=== PATIENT | female | born 1940 | race Caucasian/White ===

== ENCOUNTER → 2023-05-28 11:35 | Outpatient (CLI) | payer MEDICARE, MEDICAID, SELFPAY ==
--- NOTE | 2023-05-28 | DI.RAD_ITS ---
Exam(s) XR SHOULDER LT COMPLETE 2+V EXAM: XR SHOULDER LT COMPLETE 2+V CLINICAL HISTORY: Breast ca, C50.511, Z17.0 lt shoulder pain. TECHNIQUE: 2D digital imaging was performed. COMPARISON: No exams were available for comparison FINDINGS: Four views. No evidence of fracture or dislocation no abnormal soft tissue calcifications. There is mild decreas ed height of subacromial space Bone density normal. No osseous lesions. Minimal degenerative changes in the glenohumeral and AC caty ints. Clavicle 0. IMPRESSION: Mild findings as above. DATA REPOSITORY: RADIATION DOSE DELIVERED:
--- NOTE | 2023-05-28 | DI.RAD_ITS ---
Exam(s) XR CERVICAL SPINE COMP 4-5V EXAM: XR CERVICAL SPINE COMP 4-5V CLINICAL HISTORY: Breast ca, C50.511, Z17.0, Lt neck pain. TECHNIQUE: 2D digital imaging was performed. COMPARISON: No exams were available for comparison FINDINGS: Six views. There is multilevel degenerative disc disease reversal of the curvature of the cervical spine but no evidence of fracture or listhesis nor facet malalignment. There is moderate disc space narrowing at each level with the exception of preservation of disc height at C2-3 level. No significant osseous l esions. No Luschka joint osteophytes. No cervical ribs. Calcified plaque noted in the right carotid bifurcation. IMPRESSION: Multilevel degenerative disc disease. DATA REPOSITORY: RADIATION DOSE DELIVERED:
== END ==
PROVIDERS: PCP Family Medicine; Visit Provider Radiology Radiation Oncology
DX: C50.511 Malignant neoplasm of lower-outer quadrant of right female breast (principal); Z17.0 Estrogen receptor positive status [ER+]; M54.2 Cervicalgia
CPT/HCPCS: 72050; 73030

== ENCOUNTER → 2023-06-19 02:51 | Outpatient (CLI) | payer MEDICARE, MEDICAID, SELFPAY ==
--- NOTE | 2023-06-19 | DI.NM_ITS ---
Exam(s) NM BONE SCAN WHOLE BODY GRP EXAM: NM BONE SCAN WHOLE BODY GRP CLINICAL HISTORY: RT BREAST CA,C50.511,z17.0,LT NECK AND SHOULDER PAIIN,STAGING,DEC PASTRY COOK. TECHNIQUE: Injected Dose: 25 mCi Tc-99m MDP Delayed Images: 2-3 hours. COMPARISON: No exams were available for comparison FINDINGS: There is focal uptake symmetrically in both sternoclavicular joints, probably degenerative. There is focal increased uptake in the medial compartment of the left knee, most probably degenerativ e. Also in the proximal left foot, also probably degenerative. Lesser focus increased activity in t he dorsal right foot probably also degenerative. Nor abnormal uptake in the long bones nor within the hips and pelvis. There is no abnormal uptake in the rib cages. There are foci of increased uptake seen in the lumbar spine on the left side of what is probably L4 a nd right side of L3 and also right-side of L5-S1. These may be related to degenerative changes in th e facet joints but can not exclude bone lesions at these levels. There is a solitary focus of mild increased uptake in the thoracic spine at T8 level. Some uptake co nsistent with degenerative changes noted in the lower cervical spine. IMPRESSION: 1. Multifocal lumbar uptake as described above. Possibly related to degenerative facet arthropathy b ut can not exclude concerning lesions. Recommend CT scan through the lumbar spine for correlation. 2. Subtle focus of increased uptake at T8 also noted 3. Other multiple foci described above are most probably of degenerative nature. DATA REPOSITORY:
== END ==
PROVIDERS: PCP Family Medicine; Visit Provider Radiology Radiation Oncology
DX: C50.511 Malignant neoplasm of lower-outer quadrant of right female breast (principal); Z17.0 Estrogen receptor positive status [ER+]; R93.7 Abnormal findings on diagnostic imaging of other parts of musculoskeletal system
CPT/HCPCS: 78306

== ENCOUNTER → 2023-07-20 00:20 | Outpatient (CLI) | payer MEDICARE, MEDICAID, SELFPAY ==
--- NOTE | 2023-07-20 | DI.MRI_ITS ---
Exam(s) MR THORACIC SPINE WO/W EXAM: MR THORACIC SPINE WO/W CLINICAL HISTORY: RT BREAST CA, BONE SCAN SHOWED INCREASED UPTAKE. TECHNIQUE: Multiplanar multisequence MRI of the Thoracic spine was performed. CONTRAST MATERIAL: IV Contrast: 13 mL of Dotarem contrast administered. COMPARISON: CT CT CHEST W CONTRAST from 03/02/2023 NM NM BONE SCAN WHOLE BODY GRP from 06/19/2023 FINDINGS: Bones: The vertebral body heights are well maintained. Schmorl's nodes are noted at several levels. Endplate osteophytes throughout. Uolr-an-roekfiuh dextroscoliosis in the mid thoracic region.. Deg enerative change signal changes in the endplates in the mid thoracic region. Cord: The thoracic cord is normal size and signal intensity. No intrinsic cord lesion is present. Discs: No disc herniation or bulge is present. Soft tissues: Left-sided thyroid nodule not grossly changed. There is no evidence of suspicious enhancement. IMPRESSION: Degenerative changes. No findings suspicious for metastatic disease. DATA REPOSITORY:
--- NOTE | 2023-07-20 | DI.MRI_ITS ---
Exam(s) MR LUMBAR SPINE WO/W EXAM: MR LUMBAR SPINE WO/W CLINICAL HISTORY: RT BREAST CANCER, C50.511, Z17.0, BONE SCAN SHOWED INC UPTAKE TECHNIQUE: Multiplanar multisequence MRI of the Lumbar Spine was performed. CONTRAST MATERIAL: IV Contrast: 13 mL of Dotarem contrast administered. COMPARISON: CT CT ABDOMEN PELVIS W CONTRAST from 03/02/2023 NM NM BONE SCAN WHOLE BODY GRP from 06/19/2023 CR,RF RF BARIUM SWALLOW from 07/20/2023 FINDINGS: Bones: The last intervertebral disc space is designated the L5/S1 level for the numbering purpose of this examination. The vertebral body heights are well maintained. Alignment is satisfactory. The sig nal characteristics are unremarkable. Cord: The conus tip ends at the T12 level. It is of normal size and signal intensity. T12-L1: No disc herniations or bulges are present. L1-2: Mild disc bulging. L2-3: Severe loss of disc height. Broad-based endplate osteophytes. No significant central canal st enosis. Severe bilateral neural foraminal narrowing. L3-4: Severe loss of disc height. Degenerative signal changes in the endplates greater on the left. Facet degenerative changes. Severe left and moderate right neural foraminal narrowing. Mild central c anal stenosis. L4-5: Severe loss of disc height. Small endplate osteophytes. Facet degenerative changes. No signifi cant central canal stenosis. Mild right neural foraminal narrowing. L5-S1: Mild disc bulging. Facet degenerative changes, greater on the right. Moderate right neural fo raminal narrowing. No significant left neural foraminal narrowing or central canal stenosis. Soft tissues: The visualized SI joints and sacrum are well maintained. The paraspinal soft tissues ar e unremarkable. There is no evidence of suspicious enhancement. IMPRESSION: No evidence of metastatic disease. The areas of increased activity seen on bone scan correspond to s evere degenerative changes as described above. DATA REPOSITORY:
--- NOTE | 2023-07-20 | DI.US_ITS ---
Exam(s) US PELVIS TRANSVAGINAL EXAM: US PELVIS TRANSVAGINAL CLINICAL HISTORY: INCREASED ENDOMETRIAL STRIPE THICKNESS, R93.89, RT BREAST CANCER TECHNIQUE: Transabdominal and transvaginal imaging was performed using standard protocol. COMPARISON: CT CT ABDOMEN PELVIS W CONTRAST from 03/02/2023 FINDINGS: UTERUS: Anteverted. 6.5 x 4.2 x 6.6 cm. Measurements exclude the fibroid. Endometrium: 8-11 mm, abnormally thickened. Myometrium: Left-sided fibroid measuring 6.8 x 5.0 x 5.7 cm. Cervix: Unremarkable. OVARIES: Right: Not visualized Left: Not visualized CUL-DE-SAC: Free fluid: None. IMPRESSION: Large left-sided uterine fibroid, 6.8 cm in maximal dimension. Abnormally thickened endometrium measuring up to 11 millimeters. Ovaries were not identified. DATA REPOSITORY:
[2023-07-20] MEDS: Barium Sulfate 700 MG TAB PO (11:18)
[2023-07-20] MEDS: Simethicone/Sod Bicarb/Cit Ac, 4 gram PACKET 1 PACKET PO (11:19)
[2023-07-20] MEDS: Barium Sulfate 98% W/W 140 ML BTL PO (11:19)
[2023-07-20] MEDS: Barium Sulfate 60% W/V 355 ML BTL PO (11:20)
--- NOTE | 2023-07-20 11:23 | DI.RAD_ITS ---
Exam(s) RF BARIUM SWALLOW EXAM: RF BARIUM SWALLOW CLINICAL HISTORY: RT BREAST CANCER, C50.51, Z17.0, THICKENING ESOPHAGUS, K22.89 TECHNIQUE: 2D and realtime digital imaging was performed. CONTRAST MATERIAL: Thick and thin barium and barium tablet were administered. COMPARISON: CT CT ABDOMEN PELVIS W CONTRAST from 03/02/2023 FINDINGS: The PA and lateral chest films show normal heart size and clear lung gutierrez. Surgical clips over rig ht chest. The lateral pipe cutter view of the neck is unremarkable. Esophagus: The patient swallowed barium without difficulty. No aspiration was observed during the ex am. Noevidence for mucosal erosions. Nofold thickening. No mass is visible. Nostricture. Motility: There is a normal primary stripping wave. Prominent tertiary contractions were noted. Intr aesophageal reflux is also present. There is no hiatal hernia. Mildgastroesophageal reflux was observed during the exam. Multiple duodenal diverticula are noted. IMPRESSION: Prominent tertiary contractions in the esophagus. The barium tablet stuck briefly at the GE junction but no visible stricture is present. Mild gastroesophageal reflux. RADIATION DOSE DELIVERED: claudia Smith=21.3 mGy
[2023-07-20 12:13] LABS: CREATININE 0.9 mg/dL (0.55-1.02); Estimated GFR 64.23 (mL/min/1.73m2)
[2023-07-20] MEDS: Gadoterate meglumine 20 ML SYRINGE 13 ML IVP (12:42)
[2023-07-20] MEDS: Normal Saline Flush 10 ML SYR IVP (12:42)
== END ==
PROVIDERS: PCP Family Medicine; Visit Provider Radiology Radiation Oncology
DX: K22.4 Dyskinesia of esophagus (principal); M41.34 Thoracogenic scoliosis, thoracic region; D25.1 Intramural leiomyoma of uterus; M51.36 Other intervertebral disc degeneration, lumbar region
CPT/HCPCS: 72158; 72157; 74221; 76830; 76856; 82565; J3490

== ENCOUNTER → 2023-10-08 02:39 | Outpatient (CLI) | payer MEDICARE, SELFPAY ==
--- NOTE | 2023-10-08 | DI.DEXA_ITS ---
Exam(s) XR DEXA BONE DENSITY W/WO KRYSTEN EXAM: XR DEXA BONE DENSITY W/WO KRYSTEN CLINICAL HISTORY: BREAST CANCER C50.919 AROMATASE INHIBITOR USE Z79.811 TECHNIQUE: COMPARISON: No exams were available for comparison FINDINGS: Lateral Spine Image: Unremarkable. No compression deformities identified. Right hip: Total T-Score: -1.9. Total Z-Score: 0.3 T- and Z-scores: Findings are consistent with osteopenia. There is osteoporosis in the femoral neck with a T-score of -2.6. Lumbar Spine: Total T-Score: 0.4 Total Z-Score: 3.2 T- and Z-scores: Within normal limits. Left forearm: Total T-score:-2.8 Total Z-score: 0.4 T and Z-score is: Findings are consistent with osteoporosis. IMPRESSION: Osteoporosis in the left femoral neck and the left forearm.
== END ==
PROVIDERS: PCP Family Medicine; Visit Provider Internal Medicine Hematology & Oncology
DX: C50.511 Malignant neoplasm of lower-outer quadrant of right female breast (principal); Z17.0 Estrogen receptor positive status [ER+]; Z79.811 Long term (current) use of aromatase inhibitors; M81.0 Age-related osteoporosis without current pathological fracture; M85.88 Other specified disorders of bone density and structure, other site
CPT/HCPCS: 77080

== ENCOUNTER 2023-11-06 02:53 | Outpatient (CLI) | payer MEDICARE, SELFPAY ==
[2023-11-06 13:25] LABS: Abs Immature Grans 0.02 10^3/uL (0.0-0.06); Absolute Basophil Count 0.09 10^3/uL (0.0-0.2); Absolute Eosinophil Count 0.93 10^3/uL (0.0-0.7); Absolute Lymphocyte Count 1.79 10^3/uL (1.2-3.4); Absolute Monocyte Count 0.56 10^3/uL (0.1-0.8); Basophils % 1.2 %; Eosinophils % 11.9 %; HCT 38.6 % (36.0-46.0); HGB 12.8 g/dL (11.2-15.7); Immature Grans % 0.3 %; MCH 29.2 pg (27.0-33.0); MCHC 33.2 % (32.0-36.0); MCV 88 fL (80-95); MPV 9.3 fL (8.0-11.0); Monocytes % 7.2 %; Neutrophils % 56.4 %; Platelet Count 256 10^3/uL (130-400); RBC 4.38 10^6/uL (3.93-5.22); RDW 13.1 % (11.7-14.6); RDW-SD 42.5 fL; WBC 7.79 10^3/uL (4.4-10.8)
[2023-11-06 13:38] LABS: ALT 21 U/L (14-59); AST 16 U/L (15-37); Albumin 3.6 g/dL (3.4-5.0); Alkaline Phosphatase 132 U/L (46-116); Anion Gap 6.7 mmol/L (3-11); BUN 13 mg/dL (7-18); Bilirubin, Total 0.84 mg/dL (0.2-1.0); CO2 30.3 mmol/L (21.0-32.0); CREATININE 0.9 mg/dL (0.55-1.02); Calcium 11.3 mg/dL (8.5-10.1); Chloride 103 mmol/L (98-107); Estimated GFR 64.23 (mL/min/1.73m2); Glucose 104 mg/dL (74-106); Potassium 3.9 mmol/L (3.5-5.1); Sodium 140 mmol/L (136-145); Total Protein 7.1 g/dL (6.4-8.2)
== END 2023-11-06 02:54 | disposition home or self-care (01) ==
LOC: LBO 02:53
PROVIDERS: PCP Family Medicine; Visit Provider Nurse Practitioner Family
DX: C50.919 Malignant neoplasm of unspecified site of unspecified female breast (principal)
CPT/HCPCS: 36415; 80053; 85025

== ENCOUNTER 2024-02-08 01:02 | Outpatient (CLI) | payer MEDICARE, MEDICAID, SELFPAY ==
--- OUTSIDE RECORDS SUMMARY | 2024-02-08 01:04 | XMS_ITS | Clinical Summary ---
Author Organization [facility] [place] [address] Care Team Providers Care Senior Telecommunications Specialist Name Role Phone Dane Rick Primary Care Provider [phone] Allergies Active Allergy Reactions Criticality Noted Date Comments Atorvastatin Other (See Comments) 06/29/2022 Other reaction(s): Other (See Comments) Azithromycin 11/15/2010 Metoprolol Other (See Comments) 11/13/2018 heart failure? Metronidazole 01/01/2013 Penicillins Rash 11/15/2010 Medications Medication Sig Dispensed Refills Start Date End Date Status Ergocalciferol, Vitamin D2, 10 mcg (400 unit) Tablet Take 1 tablet by mouth. Active MAGNESIUM GLUCONATE ORAL Take 1 tablet by mouth. Active aspirin EC 81 mg EC (DR) tablet Take 81 mg by mouth daily. 09/19/2022 Active furosemide (Lasix) 20 mg tablet Take 20 mg by mouth 2 times daily. 09/19/2022 Active losartan (Cozaar) 100 mg tablet Take 100 mg by mouth Daily. 12/26/2022 Active UNABLE TO FIND Take by mouth. [place] Active letrozole (Femara) 2.5 mg tablet Take 1 tablet by mouth daily. 90 tablet 3 05/29/2023 Active emollient combination no.111 (REMEDY PHYTOPLEX MOISTURIZER TOP) Apply topically. Phytoplex Remedy Moisturizer: Apply to area of radiation twice a day but no less than 2 hours before a treatment. Active LORazepam (Ativan) 0.5 mg tablet Take 0.5 mg by mouth 3 times daily as needed for Anxiety. Active Active Problems Problem Noted Date Diagnosed Date Postmenopausal state 10/23/2023 Invasive ductal carcinoma of right breast 2022 Thickened endometrium 03/08/2023 Overview (03/22/2023): Last Assessment & Plan: Noted on recent CT scan. No recent bleeding or pain. Will get nonurgent pelvic US after breast surgery TMJ derangement 03/08/2023 Overview (03/22/2023): Last Assessment & Plan: Soft food, bite guard at night, Tylenol for pain Hypercalcemia 09/19/2022 Overview (03/22/2023): Last Assessment & Plan: Noted on last CMP. Check labs today Chronic pain of left knee 09/19/2022 Overview (03/22/2023): Last Assessment & Plan: X-rays with moderate osteoarthritis. Responded well to injections in the past. Recommended follow-up with Ortho for this. Also consider physical therapy. Left shoulder pain 09/19/2022 Overview (03/22/2023): Last Assessment & Plan: Left shoulder and neck pain, possibly after fall. Poor historian. Exam unremarkable. X-rays ordered. PT ordered placed Hemiplegia and hemiparesis f ollowing cerebral infarction affecting right dominant side 03/21/2021 Overview (03/22/2023): Last Assessment & Plan: Discussed risks and benefits of aspirin given her stroke history. 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 Balance problems 05/06/2019 Chronic post-traumatic headache, not intractable 05/06/2019 Depression with anxiety 05/06/2019 Overview (03/22/2023): Last Assessment & Plan: Discussed risks of Ativan, shared decision to trial Atarax Diverticular disease of colon 05/06/2019 Essential (primary) hypertension 05/06/2019 Overview (03/22/2023): Last Assessment & Plan: Well-controlled on current meds, continue losartan Hypercholesterolemia 05/06/2019 Injury of head 05/06/2019 Obesity 05/06/2019 ABDOULAYE (obstructive sleep apnea) 05/06/2019 Trigeminal neuralgia 05/06/2019 Unspecified rotator cuff tea r or rupture of right shoulder, not specified as traumatic 05/06/2019 Vertigo 05/06/2019 Encounters Date Type Department Care Team Description 02/04/2024 Telephone Hematology/Oncology at [address] [phone] Deloris Canchola 01/04/2024 Telephone Hematology/Oncology at [address] [phone] Chichi Reed RN Other (Questions from PCP office) 11/15/2023 Orders Only Hematology/Oncology at [address] [phone] Keisha Rodriguez, FARIDA Stage II breast cancer in female; Breast pain, left 11/15/2023 Telephone Hematology/Oncology at [address] [phone] Deloris Canchola from Last 3 Months Social History Tobacco Use Types Packs/Day Years Used Date Smoking Tobacco: Never Smokeless Tobacco: Never Tobacco Cessation:Counseling Given: Not Answered Alcohol Use Standard Drinks/Week Comments Not Currently 0 (1 standard drink = 0.6 oz pur e alcohol) seldom Sex and Gender Information Value Date Recorded Sex Assigned at Not on file Gender Identity Not on file Sexual Orientation Not on file Last Filed Vital Signs Vital Sign Reading Time Taken Comments Blood Pressure 168/53 11/06/2023 1:51 PM EDT Pulse 50 11/06/2023 1:51 PM EDT Temperature 36.5 ??C (97.7 ??F) 11/06/2023 1 :51 PM EDT Respiratory Rate 18 11/06/2023 1:51 PM EDT Oxygen Saturation 100% 11/06/2023 1:5 1 PM EDT Inhaled Oxygen Concentration - - Weight 64 kg (141 lb) 09/25/2023 3:19 PM EDT patient reported weight Height 149.9 cm (4' 11) 09/25/2023 3:1 9 PM EDT Body Mass Index 28.48 09/25/2023 3:19 PM EDT Plan of Treatment Upcoming Encounters Date Type Department Care Team (Late st Contact Info) Description 02/08/2024 10:00 AM EST Office Visit Hematology/Oncology at [address] [phone] Keisha Rodriguez APRN [address] [place] [address] [place] [address] 02/08/2024 10:30 AM EST Infusion Hematology Oncology at [address] [phone] 02/13/2024 10:00 AM EST Office Visit General Surgery at [address] [phone] Leticia Lieberman MD [address] [place] [address] [place] [address] 11/06/2069 Hospital Encounter Outpatient [place] [phone] Philly Zuluaga MD [facility] [place] [address] Scheduled Procedures Name Priority Associated Diagnoses Date/Ti me HYSTEROSCOPY, SURG W/ENDOMET RIAL SAMPLING, POLYPECTOMY (WRVU 4.17) Thickened endometrium Health Maintenance Due Date Last Done Comments Pneumoccocal Vaccine: 65+ (1 of 2 - PCV) [birth year]/16/1946 Tetanus/Diphtheria/Pertussis Vaccines (1 - Tdap) 12/15 Zoster vaccine (1 of 2) 12/16/1991 Advance Directive 1996 Bone Density Scan 2006 Covid-19 Vaccine ( season) 2023 Influenza (Flu) vaccine (1 o f 1 - Influenza standard series) 12/02/2023 Care Teams Senior Telecommunications Specialist Relationship Specialty Start Date End Date Dane Rick [address] [place] [phone] PCP - General Family Medicine 03/05/23
--- OUTSIDE RECORDS SUMMARY | 2024-02-08 01:04 | XMS_ITS | Encounter Summary ---
[place] [address] Care Team Providers Care Transmission Superintendent Name Role Phone Dane Rick Primary Care Provider [phone] Encounter Details Date Type Department Care Team (Late Contact Info) Description 11/15/2023 Orders Only Hematology/Oncology at [address] [phone] Keisha Rodriguez [address] MEDICAL ONCOLOGY [place], [place] [id number] Stage II breast cancer in female; Breast pain, left Social History Tobacco Use Types Packs/Day Years Used Date Smoking Tobacco: Never Smokeless Tobacco: Never Alcohol Use Standard Drinks/Week Comments Not Currently 0 (1 standard drink = 0.6 oz pur e alcohol) seldom Sex and Gender Information Value Date Recorded Sex Assigned at Not on file Gender Identity Not on file Sexual Orientation Not on file documented as of this encounter Plan of Treatment Upcoming Encounters Date Type Department Care Team (Late Contact Info) Description 02/08/2024 10:00 AM EST Office Visit Hematology/Oncology at [address] [phone] [address] MEDICAL ONCOLOGY [place], [place] [phone] 02/08/2024 10:30 AM EST Infusion Hematology Oncology at [address] [phone] 02/13/2024 10:00 AM EST Office Visit General Surgery at [place] [address] [place] [phone] Leticia Lieberman MD [address] [facility] [place] [address] 11/06/2069 Hospital Encounter Outpatient [place] [phone] Philly Zuluaga MD [facility] DR OBSTETRICS [place] [address] Scheduled Orders Name Type Priority Associated Diagnoses Orde r Schedule Mammo Diagnostic Cad and Albert Left Imaging Routine Stage II breast cancer in female Breast pain, left Expected: 11/16/2023, Expires: 05/17/2025 US Breast Limited Left Imaging Routine Stage II breast cancer in female Breast pain, left Expected: 11/16/2023, Expires: 05/17/2025 Scheduled Procedures Name Priority Associated Diagnoses Date/Ti me HYSTEROSCOPY, SURG W/ENDOMET RIAL SAMPLING, POLYPECTOMY (WRVU 4.17) Thickened endometrium documented as of this encounter Visit Diagnoses Diagnosis Stage II breast cancer in female Breast pain, left Mastodynia documented in this encounter Care Teams Transmission Superintendent Relationship Specialty Start Date End Date Rick, Dane [address] [place] [phone] PCP - General Family Medicine 03/05/23 documented as of this encounter
--- OUTSIDE RECORDS SUMMARY | 2024-02-08 01:04 | XMS_ITS | Encounter Summary ---
[place] [address] Care Team Providers Care Aviation Electrical Technician Name Role Phone Dane Rick Primary Care Provider [phone] Encounter Details Date Type Department Care Team (Latest Contact Info) Description 11/06/2023 Travel Social History Tobacco Use Types Packs/Day Years [...] 10:00 AM EST Office Visit Hematology/Oncology at [address] [phone] Keisha Rodriguez APRN [address] [place] [address] [place] [address] 02/08/2024 10:30 AM EST Infusion Hematology Oncology at [address] [phone] 02/13/2024 10:00 AM EST Office Visit General Surgery at [address] [phone] Leticia Lieberman MD [address] [place] [address] 11/06/2069 Hospital Encounter Outpatient [place] [phone] Philly Zuluaga MD [facility] DR OBSTETRICS [place] [address] Scheduled Procedures Name Priority Associated Diagnoses Date/Ti me HYSTEROSCOPY, SURG W/ENDOMET RIAL SAMPLING, POLYPECTOMY (WRVU 4.17) Thickened endometrium documented as of this encounter Visit Diagnoses Not on filedocumented in this encounter Care Teams Aviation Electrical Technician Relationship Specialty Start Date End Date Dane Rick [address] [place] [phone] PCP - General Family Medicine 03/05/23 documented as of this encounter
--- OUTSIDE RECORDS SUMMARY | 2024-02-08 01:04 | XMS_ITS | Encounter Summary ---
[place] [address] Care Team Providers Care Lawyer Criminal Name Role Phone Dane Rick Primary Care Provider [phone] Encounter Details Date Type Department Care Team (Late st Contact Info) Description 11/06/2023 2:00 PM EDT Office Visit Hematology/Oncology at [address] [phone] Rosanne Stauffer MD Perreault, Alexandra H, APRN [address] [place] [address] MEDICAL ONCOLOGY [place], [place] [id number] Stage II breast cancer in female; Aromatase inhibitor use Social History Tobacco Use Types Packs/Day Years Used Date Smoking Tobacco: Never Smokeless Tobacco: Never Alcohol Use Standard Drinks/Week Comments Not Currently 0 (1 standard drink = 0.6 oz pur e alcohol) seldom Sex and Gender Information Value Date Recorded Sex Assigned at Not on file Gender Identity Not on file Sexual Orientation Not on file documented as of this encounter Last Filed Vital Signs Vital Sign Reading Time Taken Comments Blood Pressure 168/53 11/06/2023 1:51 PM EDT Pulse 50 11/06/2023 1:51 PM EDT Temperature 36.5 ??C (97.7 ??F) 11/06/2023 1:51 PM ED T Respiratory Rate 18 11/06/2023 1:51 PM EDT Oxygen Saturation 100% 11/06/2023 1:51 PM EDT Inhaled Oxygen Concentration - - Weight - - Height - - Body Mass Index - - documented in this encounter Progress Notes * Keisha Rodriguez APRN - 11/06/2023 2:00 PM EDT Images from the original note were not included. 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 05/28/2023: Start adjuvant letrozole ONCOLOGIC HX: 12/2022: Palpable right breast mass : could see something sticking out on the side 01/24/2023: Bilateral diagnostic mammogram and ultrasound: Right breast: Revealed 2.8 cm irregular spiculated mass at 9:00 5 cm FN. Left breast: No suspicious mass, architectural distortion or suspicious microcalcification. Ultrasound: Right breast: At 9:00 5 cm FN and, irregular hypoechoic mass 24 x 21 x 21 mm-taller than wide, posterior acoustic shadowing. Adjacent 8 x 4 x 6 mm nodule, 1 cm from primary lesion, suspicious for satellite lesion. Right axilla: Multiple abnormal lymph nodes present including hypoechoic node 14 x 9 x 9 mm with near complete absence of fatty hilum 02/09/2023: Ultrasound-guided biopsy of right breast lesion: Pathology revealed grade 2 IDC, ER positive [>90%], NJ negative, HER2 negative [0] 03/02/2023: Staging imaging: CT CAP: Revealed lobulated soft tissue mass in the right breast stated history of right breast cancer. There are few subcentimeter right axillary lymph although these lymph nodes are within normal limits for size, they demonstrate no definite fatty faustino, raising suspicion for possibility of that they may be pathogenic/metastatic in nature. Interval development of moderate circumferential wall thickening of the mid esophagus, which may be associated with luminal narrowing. Differential possibilities are esophagitis and esophageal mass cannot be excluded. No evidenceof metastatic disease in the abdomen or pelvis. The endometrial stripe is abnormally for the postmenopausal state measuring up to 8 mm in diameter Bone scan: Negative for skeletal metastasis 04/16/2023: Right partial mastectomy and SLNB: Grade 2 IDC, multifocal, 4 foci, largest focus is 25 mm, there are 3 additional microinvasive foci, each less than 1 mm. No DCIS identified, extensive LVI is present. No dermal lymphatic/dermal vascular invasion present. No microcalcifications. All margins are negative for invasive carcinoma. SLNB: 0/1 05/16/2023: Oncotype Dx RS: 17 05/28/2023: Establish care with [place]ology[place], recommendation to start adjuvantletrozole, while planning for adjuvant right breast RT 06/19/2023: Bone scan: Multifocal lumbar uptake. Possibly related to degenerative arthropathy but cannot exclude concerning lesions. Subtle focus of increased uptake at T8. Other multiple foci most probably of the degenerative nature 07/20/2023: Transvaginal ultrasound in context of thickened endometrium on CT CAP: Large left-sided uterine fibroid, 6.8 cm in maximum dimension. Abnormally thickened endometrium measuring up to 11 mm. Ovaries were not identified 07/20/2023: MRI thoracic and lumbar spine with and without contrast: Degenerative changes, no findings suspicious for metastatic disease. It was noted that the areas of increased activity seen on bonescan correspond to severe degenerative changes as described per MRI report especially in lumbar spine area. 07/20/2023: Barium swallow in context of thickened esophagus on CT CAP: Prominently territory contractions in the esophagus. The barium tablet stuck briefly at the GE junction but no visible strictureis present. Mild GERD 07/24/2023: Multidisciplinary med/rad oncology meeting to discuss further plans in regards to adjuvant right breast irradiation 08/07/2023: Started adjuvant radiation to right breast 08/13/2023: ED visit for at [facility]: For worsening fatigue and weakness with notable elevated LFTs Kenyatta decided to forego radiation therapy after ED visit for concerns about radiation therapy causing elevated LFTs. She had met with Dr. Brooks afterwards to further discuss this issue. Per Dr. Brooks, elevated LFTs unrelated to radiation therapy. Assessment & Plan: Ms. Kenyatta Vizcaino is a 82 y.o. 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 Given that she has no concerning symptoms or signs at this time-no further imaging indicated. We have discussed red flag symptoms that include but not limited to new persistent headaches, new persistence: Back aches; unexplained weight loss. Will continue to closely monitor -Treatment: 04/16/2023: Right partial mastectomy. 05/28/2023: Start adjuvant letrozole 08/07/2023: started adjuvant radiation; stopped after 1 treatment due to concern of side effects specifically elevated LFTs on ED visit on 08/13/2023 Monitoring Treatment related toxicities: #Myalgia/arthralgia: -Worsening myalgia/arthralgia: Worsening arthralgia as well as worsening weakness of bilateral proximal thighs She is seeing PT for this now. #Fatigue: Worsening fatigue. Symptoms did not improve after 1 week holiday off of letrozole. Elevated LFTs: - Labs normal today. Advised she follow up with PCP in regards to repeat LFTs given her ongoing concerns Breast Pain: - Message sent to her surgical team for management Monitoring compliance/adherence: Held letrozole for one week due to fatigue. One missed dose since she resumed Bone health: -DEXA scan: Discussed DEXA scan and why assessing baseline BMD while on aromatase inhibitor is important - DEXA 10/08/23: T score -2.8 consistent with osteoporosis - Will plan to get dental clearance given ill fitting dentures and start reclast annually Recommendations/Plan: -Continue with letrozole - Get dental clearance and plan to start reclast -Continue with vitamin D - follow up with Dr. Lieberman for ongoing left breast pain and possible early imaging - Follow up with PCP to manage LFTs and other concerns Follow-up: MD/FAMILY AND CONSUMER EDUCATION TEACHER follow-up in 3months sooner if there are concerns Kenyatta is here with her daughter Adriana. She is having pain in both knees. Going to PT about once a week. Has not helped much so far. Interval History: #Breast concerns: left breast pain and pain into left armpit, persistent for several months Monitoring treatment related side effects #Arthralgia: Affecting knees, shoulders, and ankles -worsening from prior #Hot flashes: None #Myalgia: Concerned about muscle weakness especially in proximal thighs #Fatigue: Worsening fatigue, ongoing #Neuropathy: some tingling and warmness in patches intermittently on arms legs, No tingling or numbness #History of cardiac disease: h/o CAD control with goal-directed therapy, monitored by PCP. Controlled HTN #Monitoring compliance with/adherence to treatment Missed one dose of letrozole after week break. #ROS: # New headaches: None # New back/bone pain: None # Elevated LFTs for CMP on 08/13/2023: Recommended PCP follow-up Review of Symptoms: As per HPI, all other systems were reviewed and are negative. Review of Systems Constitutional: Positive for fatigue. Negative for appetite change, chills, fever and unexpected weight change. HENT: Negative for lump/mass. Eyes: Negative for eye problems. Respiratory: Negative for chest tightness, cough, shortness of breath and wheezing. Cardiovascular: Negative for chest pain, leg swelling and palpitations. Gastrointestinal: Negative for abdominal distention, abdominal pain, constipation, diarrhea, nauseaand vomiting. Endocrine: Negative for hot flashes. Genitourinary: Negative for difficulty urinating. Musculoskeletal: Positive for arthralgias and myalgias. Negative for back pain, flank pain, gait problem, neck pain and neck stiffness. Skin: Negative for rash. Neurological: Positive for extremity weakness. Negative for dizziness, gait problem, headaches, light-headedness, numbness, seizures and speech difficulty. Hematological: Negative for adenopathy. Allergies: Allergies as of 11/06/2023 - Review Complete 11/06/2023 Allergen Reaction Noted Atorvastatin Other (See Comments) 06/29/2022 Azithromycin 11/15/2010 Metoprolol Other (See Comments) 11/13/2018 Metronidazole 01/01/2013 Penicillins Rash 11/15/2010 Medical History: Past Medical History: Diagnosis Date Benign essential HTN Breast cancer right CHF (congestive heart failure) CVA (cerebral vascular accident) Depression with anxiety Diverticular disease of colon Goiter Trigeminal neuralgia Current Medications: Current Outpatient Medications Medication Sig Note LORazepam (Ativan) 0.5 mg tablet Take 0.5 mg by mouth 3 times daily as needed for Anxiety. emollient combination no.111 (REMEDY PHYTOPLEX MOISTURIZER TOP) Apply topically. Phytoplex Remedy Moisturizer: Apply to area of radiation twice a day but no less than 2 hours before a treatment. letrozole (Femara) 2.5 mg tablet Take 1 tablet by mouth daily. UNABLE TO FIND Take by mouth. [place] Tail Ergocalciferol, Vitamin D2, 10 mcg (400 unit) Tablet Take 1 tablet by mouth. MAGNESIUM GLUCONATE ORAL Take 1 tablet by mouth. aspirin EC 81 mg EC (DR) tablet Take 81 mg by mouth daily. furosemide (Lasix) 20 mg tablet TAKE 2 TABLETS BY MOUTH ONCE DAILY IN THE MORNING AND 1 IN THE AFTERNOON 05/29/2023: Taking 20mg daily most days. Some days takes 40mg daily losartan (Cozaar) 100 mg tablet Take 100 mg by mouth Daily. Surgical History: Past Surgical History: Procedure Laterality Date MASTECTOMY, PARTIAL Right 04/16/2023 PRO UPPER GI ENDOSCOPY, BIOPSY N/A 08/03/2023 EGD WITH BIOPSY (WRVU 2.39) performed by Héctor Allen MD at [facility] ENDOSCOPY ROTATOR CUFF REPAIR Right Social History: reports that she has never smoked. She has never used smokeless tobacco. She reports that she does not currently use alcohol. She reports that she does not use drugs. Physical Exam: Vital signs and weight : Wt Readings from Last 3 Encounters: 09/25/23 64 kg (141 lb) 07/31/23 65.8 kg (145 lb) 07/24/23 64.9 kg (143 lb) Temp Readings from Last 3 Encounters: 11/06/23 36.5 ??C (97.7 ??F) (Temporal) 10/23/23 36.3 ??C (97.3 ??F) (Temporal) 09/25/23 36.4 ??C (97.6 ??F) (Temporal) BP Readings from Last 3 Encounters: 11/06/23 168/53 10/23/23 152/61 09/25/23 157/49 Pulse Readings from Last 3 Encounters: 11/06/23 50 10/23/23 (!) 48 09/25/23 60 ECOG PS: 0 Physical Exam Vitals reviewed. Constitutional: General: She is not in acute distress. Appearance: Normal appearance. HENT: Mouth/Throat: Mouth: Mucous membranes are moist. Pharynx: Oropharynx is clear. Eyes: General: No scleral icterus. Extraocular Movements: Extraocular movements intact. Cardiovascular: Rate and Rhythm: Normal rate and regular rhythm. Heart sounds: No murmur heard. Pulmonary: Effort: Pulmonary effort is normal. Breath sounds: Normal breath sounds. No wheezing. Chest: Breasts: Right: No swelling, inverted nipple, mass, nipple discharge, skin change or tenderness. Left: Tenderness (Left outer quadrant tenderness) present. No swelling, inverted nipple, mass, nipple discharge or skin change. Abdominal: General: Abdomen is flat. Palpations: Abdomen is soft. There is no mass. Tenderness: There is no abdominal tenderness. There is no guarding. Musculoskeletal: General: Normal range of motion. Cervical back: Normal range of motion. Right lower leg: No edema. Left lower leg: No edema. Lymphadenopathy: Cervical: No cervical adenopathy. Skin: General: Skin is warm and dry. Findings: No rash. Neurological: General: No focal deficit present. Mental Status: She is alert and oriented to person, place, and time. Psychiatric: Mood and Affect: Mood normal. Behavior: Behavior normal. Labs: None reviewed today Annual mammogram: To be ordered and scheduled for surgery Imaging: CT C/A/P with contrast: 03/02/2023 Revealed lobulated soft tissue mass in the right breast stated history of right breast cancer. There are few subcentimeter right axillary lymph although these lymph nodes are within normal limits forsize, they demonstrate no definite fatty faustino, raising suspicion for possibility of that they may be pathogenic/metastatic in nature. Interval development of moderate circumferential wall thickening of the mid esophagus, which may be associated with luminal narrowing. Differential possibilities areesophagitis and esophageal mass cannot be excluded. No evidence of metastatic disease in the abdomen or pelvis. The endometrial stripe is abnormally for the postmenopausal state measuring up to 8 mm in diameter 06/19/2023: Bone scan: Multifocal lumbar uptake. Possibly related to degenerative arthropathy but cannot exclude concerning lesions. Subtle focus of increased uptake at T8. Other multiple foci most probably of the degenerative nature 07/20/2023: Transvaginal ultrasound in context of thickened endometrium on CT CAP: Large left-sided uterine fibroid, 6.8 cm in maximum dimension. Abnormally thickened endometrium measuring up to 11 mm. Ovaries were not identified 07/20/2023: MRI thoracic and lumbar spine with and without contrast: Degenerative changes, no findings suspicious for metastatic disease. It was noted that the areas of increased activity seen on bonescan correspond to severe degenerative changes as described per MRI report especially in lumbar spine area. 07/20/2023: Barium swallow in context of thickened esophagus on CT CAP: Prominently territory contractions in the esophagus. The barium tablet stuck briefly at the GE junction but no visible strictureis present. Mild GERD DEXA scan: 10/09/23: Osteoporosis Counseling: Total time spent: 40 follow-up okay are you good goodminutes with > 50% spend in discussion of above, [id number] time and coordination of care with the patient today All aspects of the plan were discussed with the patient. The patient was given opportunities to askquestions, which we answered. Kenyatta Vizcaino has endorsed agreement and understanding of the treatment plan. ASCO Quality Metrics -Toxicity: Potential toxicities of therapy discussed in length with patient. Patient educated on symptom management interventions. -Pain Plan: Pain score noted in vitals above. -Fertility Risk: Postmenopausal -Advanced Care Planning: Not discussed on this visit -Oral Chemotherapy: N/A -Patient asked to Call the team with concerning symptoms and if being admitted to other hospitals. Patient to contact team via my portal or triage line with non urgent questions and concerns. Keisha Rodriguez APRN Medical Oncology [facility] documented in this encounter Plan of Treatment Upcoming Encounters Date Type Department Care Team (Late st Contact Info) Description 02/08/2024 10:00 AM EST Office Visit Hematology/Oncology at [address] [phone] Keisha Rodriguez APRN [address] [place] [address] MEDICAL ONCOLOGY [place], [place] [phone] 02/08/2024 10:30 AM EST Infusion Hematology Oncology at [address] [phone] 02/13/2024 10:00 AM EST Office Visit General Surgery at [address] [phone] Leticia Lieberman MD [address] [place] [phone] 11/06/2069 Hospital Encounter [place] [phone] Philly Zuluaga MD [facility] DR OBSTETRICS [place] [address] Scheduled Procedures Name Priority Associated Diagnoses Date/Ti me HYSTEROSCOPY, SURG W/ENDOMET RIAL SAMPLING, POLYPECTOMY (WRVU 4.17) Thickened endometrium documented as of this encounter Visit Diagnoses Diagnosis Stage II breast cancer in female Aromatase inhibitor use Use of aromatase inhibitors documented in this encounter Care Teams Lawyer Criminal Relationship Specialty Start Date End Date Dane Rick [address] [place] [phone] PCP - General Family Medicine 03/05/23 documented as of this encounter
--- OUTSIDE RECORDS SUMMARY | 2024-02-08 01:04 | XMS_ITS | Encounter Summary ---
[place] [address] Care Team Providers Care Ampoule Washing Machine Operator Name Role Phone Dane Rick Primary Care Provider [phone] Encounter Details Date Type Department Care Team (Late Contact Info) Description 10/19/2023 Orders Only Hematology/Oncology at [address] [phone] Keisha Rodriguez [address] MEDICAL ONCOLOGY [place], [place] [phone] Stage II breast cancer in female Social History Tobacco Use Types Packs/Day Years [...] 10:00 AM EST Office Visit Hematology/Oncology at [address] [phone] Keisha Rodriguez [address] MEDICAL ONCOLOGY [place], [place] [phone] 02/08/2024 10:30 AM EST Infusion Hematology Oncology at [address] [phone] 02/13/2024 10:00 AM EST Office Visit General Surgery at [address] [place] [phone] Leticia Lieberman MD [address] [facility] [place] [address] 11/06/2069 Hospital Encounter Outpatient Surgery Center [facility] [place] [phone] Philly Zuluaga MD [facility] DR OBSTETRICS [place] [address] Scheduled Orders Name Type Priority Associated Diagnoses Orde r Schedule Comprehensive metabolic panel (non-fasting) Lab STAT Stage II breast cancer in female Expected: 11/02/2023, Expires: 05/03/2024 CBC (with Diff) Lab STAT Stage II breast cancer in female Expected: 11/02/2023, Expires: 05/03/2024 Scheduled Procedures Name Priority Associated Diagnoses Date/Ti me HYSTEROSCOPY, SURG W/ENDOMET RIAL SAMPLING, POLYPECTOMY (WRVU 4.17) Thickened endometrium documented as of this encounter Visit Diagnoses Diagnosis Stage II breast cancer in female documented in this encounter Care Teams Ampoule Washing Machine Operator Relationship Specialty Start Date End Date Dane Rick [address] [place] [phone] PCP - General Family Medicine 03/05/23 documented as of this encounter
--- OUTSIDE RECORDS SUMMARY | 2024-02-08 01:04 | XMS_ITS | Encounter Summary ---
[place] [address] Care Team Providers Care Perishable Fruit Inspector Name Role Phone Dane Rick Primary Care Provider [phone] Encounter Details Date Type Department Care Team (Latest Contact Info) Description 10/18/2023 Travel Social History Tobacco Use Types Packs/Day [...] 10:00 AM EST Office Visit Hematology/Oncology at [address] [phone] Keisha Rodriguez APRN [address] [place] [address] [place] [address] 02/08/2024 10:30 AM EST Infusion Hematology Oncology at [address] [phone] 02/13/2024 10:00 AM EST Office Visit General Surgery at [address] [phone] Leticia Lieberman MD [address] [place] [address] 11/06/2069 Hospital Encounter [place] [address] Philly Zuluaga MD [facility] DR OBSTETRICS [place] [address] Scheduled Procedures Name Priority Associated Diagnoses Date/Ti me HYSTEROSCOPY, SURG W/ENDOMET RIAL SAMPLING, POLYPECTOMY (WRVU 4.17) Thickened endometrium documented as of this encounter Visit Diagnoses Not on filedocumented in this encounter Care Teams Perishable Fruit Inspector Relationship Specialty Start Date End Date Dane Rick [address] [place] [phone] PCP - General Family Medicine 03/05/23 documented as of this encounter
--- OUTSIDE RECORDS SUMMARY | 2024-02-08 01:04 | XMS_ITS | Encounter Summary ---
[place] [address] Care Team Providers Care Laboratory Clerk Name Role Phone Dane Rick Primary Care Provider [phone] Encounter Details Date Type Department Care Team (Latest Contact Info) Description 10/23/2023 Travel Social History Tobacco Use Types Packs/Day [...] 10:00 AM EST Office Visit Hematology/Oncology at [address] [phone] Keisha Rodriguez APRN [address] [place] [address] [place] [address] 02/08/2024 10:30 AM EST Infusion Hematology Oncology at [address] [phone] 02/13/2024 10:00 AM EST Office Visit General Surgery at [address] [phone] Leticia Lieberman MD [address] [place] [phone] 11/06/2069 Hospital Encounter [place]patient [place] [address] Philly Zuluaga MD [facility] DR OBSTETRICS [place] [address] Scheduled Procedures Name Priority Associated Diagnoses Date/Ti me HYSTEROSCOPY, SURG W/ENDOMET RIAL SAMPLING, POLYPECTOMY (WRVU 4.17) Thickened endometrium documented as of this encounter Visit Diagnoses Not on filedocumented in this encounter Care Teams Laboratory Clerk Relationship Specialty Start Date End Date Dane Rick [address] [place] [phone] PCP - General Family Medicine 03/05/23 documented as of this encounter
--- OUTSIDE RECORDS SUMMARY | 2024-02-08 01:04 | XMS_ITS | Encounter Summary ---
Author Organization [facility] [place] [address] Care Team Providers Care Panel Edge Painter Name Role Phone Dane Rick Primary Care Provider [phone] Encounter Details Date Type Department Care Team (Late Contact Info) Description 11/15/2023 Telephone Hematology/Oncology at [address] [phone] Deloris Canchola Social History Tobacco Use Types Packs/Day Years Used Date Smoking Tobacco: Never Smokeless Tobacco: Never Alcohol Use Standard Drinks/Week Comments Not Currently 0 (1 standard drink = 0.6 oz pur e alcohol) seldom Sex and Gender Information Value Date Recorded Sex Assigned at Not on file Gender Identity Not on file Sexual Orientation Not on file documented as of this encounter Miscellaneous Notes * Telephone Encounter - Deloris Canchola - 11/15/2023 11:34 AM EDT Called [facility] in [place] [phone] Spoke to Gina, she asked if kenyatta needed to have the a exam since she has no teeth. We said yes because her dentures do not fit well. She was supposed toconfirm her appt and does not have a appt yet nor has she confirmed with them. I will check back shoe cutter to her appt in January. documented in this encounter Plan of Treatment Upcoming Encounters Date Type Department Care Team (Late st Contact Info) Description 02/08/2024 10:00 AM EST Office Visit Hematology/Oncology at [address] [phone] Keisha Rodriguez APRN [address] [place] [address] [place] [address] 02/08/2024 10:30 AM EST Infusion Hematology Oncology at [address] [phone] 02/13/2024 10:00 AM EST Office Visit General Surgery at [address] [phone] Leticia Lieberman MD [address] [place] [address] 11/06/2069 Hospital Encounter [place] [address] Philly Zuluaga MD [facility] DR OBSTETRICS [place] [address] Scheduled Procedures Name Priority Associated Diagnoses Date/Ti me HYSTEROSCOPY, SURG W/ENDOMET RIAL SAMPLING, POLYPECTOMY (WRVU 4.17) Thickened endometrium documented as of this encounter Visit Diagnoses Not on filedocumented in this encounter Care Teams Panel Edge Painter Relationship Specialty Start Date End Date aDne Rick [address] [place] [phone] PCP - General Family Medicine 03/05/23 documented as of this encounter
--- OUTSIDE RECORDS SUMMARY | 2024-02-08 01:04 | XMS_ITS | Encounter Summary ---
Author Organization [facility] Address [facility] [place] [address] Care Team Providers Care Snowmaker Name Role Phone Dane Rick Primary Care Provider [phone] Reason for Visit * Reason Onset Date Comments Other 01/04/2024 Questions from P CP office Encounter Details Date Type Department Care Team (Late st Contact Info) Description 01/04/2024 Telephone Hematology/Oncology at [address] [phone] Chichi Reed RN Other (Questions from PCP office) Social History Tobacco Use Types Packs/Day Years [...] encounter Miscellaneous Notes * Telephone Encounter - Chichi Reed RN - 01/04/2024 2:14 PM EDT Chichi from pt's PCP office of family medicine called re: kenyatta. They are looking for the information on what imaging kenyatta needs and where and who needs to do them. [phone]. Reviewed with Pj Rodriguez BIOFUELS PRODUCT MANAGER , she states she ordered mammogram and ultrasound for pt to have mid October prior to seeing surgeon. Pt did not have these done. No other imaging needed by PCP (pt had dexa scan in September). PCP can monitor LFTs. Chichi took this information down and will update PCP, they may see if pt wants to have her mammo at [facility] and may call to have image reqs sent there. documented in this encounter Plan of Treatment Upcoming Encounters Date Type Department Care Team (Late st Contact Info) Description 02/08/2024 10:00 AM EST Office Visit Hematology/Oncology at [address] [phone] Keisha Rodriguez APRN [address] [place] [address] [place] [address] 02/08/2024 10:30 AM EST Infusion Hematology Oncology at [address] [phone] 02/13/2024 10:00 AM EST Office Visit General Surgery at [address] [phone] Leticia Lieberman MD [address] [place] [address] 11/06/2069 Hospital Encounter Outpatient [place] [address] Philly Zuluaga MD [facility] OBSTET[place] [address] Scheduled Procedures Name Priority Associated Diagnoses Date/Ti me HYSTEROSCOPY, SURG W/ENDOMET RIAL SAMPLING, POLYPECTOMY (WRVU 4.17) Thickened endometrium documented as of this encounter Visit Diagnoses Not on filedocumented in this encounter Care Teams Snowmaker Relationship Specialty Start Date End Date Dane Rick [address] [place] [phone] PCP - General Family Medicine 03/05/23 documented as of this encounter
--- OUTSIDE RECORDS SUMMARY | 2024-02-08 01:04 | XMS_ITS | Encounter Summary ---
Author Organization [facility] Address [facility] [place] [address] Care Team Providers Care Celery Cutter Name Role Phone Dane Rick Primary Care Provider [phone] Reason for Visit * Reason Comments Establish Care Encounter Details Date Type Department Care Team ([facility] st Contact Info) Description 10/23/2023 9:40 AM EDT Office Visit Obstetrics [place] [address] Philly Zuluaga MD [facility] OBSTETRICS [place] [address] Thickened endometrium; Postmenopausal state Social History Tobacco Use Types Packs/Day Years [...] Sign Reading Time Taken Comments Blood Pressure 152/61 10/23/2023 9:18 AM EDT Pulse 48 10/23/2023 9:18 AM EDT Temperature 36.3 ??C (97.3 ??F) 10/23/2023 9:18 AM ED T Respiratory Rate 14 10/23/2023 9:18 AM EDT Oxygen Saturation 100% 10/23/2023 9:18 AM EDT Inhaled Oxygen Concentration - - Weight - - Height - - Body Mass Index - - documented in this encounter Progress Notes * Tomi Spaulding LPN - 10/23/2023 9:40 AM EDT _X___ Patient not reached, will update meds, allergies, tobacco, pharmacy, pain/depression during visit. ____Patient reached and the following information was reviewed/obtained per protocol: ___Confirmed patient name and date of ___Confirmed upcoming appt ___Reviewed medications, allergies, tobacco, pharmacy, pain/depression Confirmed has completed any pre-visit questionnaires If has not received required previsit questionnaires, send via [facility] Other information or concerns: [phone] * Philly Zuluaga MD - 10/23/2023 9:40 AM EDT Images from the original note were not included. Subjective: Kenyatta Vizcaino is a 82 y.o. female with history of ER+ breast cancer s/p partial mastectomy, RTx3 and letrozole who is referred by Dr. Ann James for a thickened endometrium seen on TVUS and CT scan. She presents today with her daughter, Adriana. Had CT scan performed in March which showed thickened endometrium. She then had a follow up u/s in July which showed: Gynecologic History: LMP unsure - probably in her early 50s. Has no tim any vaginal bleeding since then Unsure if menses were regular but believes she had them every month No CHIEF WHEELAGE CLERK issues Paps last pap in 50s/early 60s. No history of abnormal paps - SVDx2 FH: No cancers in either side of the family OB History No obstetric history on file. Past Medical History: Diagnosis Date Benign essential HTN Breast cancer right CHF (congestive heart failure) CVA (cerebral vascular accident) Depression with anxiety Diverticular disease of colon Goiter Trigeminal neuralgia Past Surgical History: Procedure Laterality Date MASTECTOMY, PARTIAL Right 04/16/2023 PRO UPPER GI ENDOSCOPY, BIOPSY N/A 08/03/2023 EGD WITH BIOPSY (WRVU 2.39) performed by Héctor Allen MD at [facility] ENDOSCOPY ROTATOR CUFF REPAIR Right Serious left leg surgery at age 27 - took a section from the hip and put in ankle No family history on file. Social History Socioeconomic History Marital status: Unknown Spouse name: Not on file Number of children: Not on file Years of education: Not on file Highest education level: Not on file Occupational History Not on file Tobacco Use Smoking status: Never Smokeless tobacco: Never Vaping Use Vaping status: Never Used Substance and Sexual Activity Alcohol use: Not Currently Comment: seldom Drug use: Never Sexual activity: Not on file Other Topics Concern Not on file Social History Narrative Not on file Social Determinants of Health Financial Resource Strain: Medium Risk (03/15/2023) [facility] Overall Financial Resource Strain (CARDIA) Difficulty of Paying Living Expenses: Somewhat hard Food Insecurity: Food Insecurity Present (03/15/2023) [facility] Hunger Vital Sign Worried About Running Out of Food in the Last Year: Sometimes true Ran Out of Food in the Last Year: Sometimes true Transportation Needs: No Transportation Needs (03/15/2023) Received from [facility] PRAPARE - Transportation Lack of Transportation (Medical): No Lack of Transportation (Non-Medical): No Physical Activity: Not on file Intimate Partner Violence: Not on file Housing Stability: Low Risk (03/15/2023) Re[facility] from [facility] Housing Stability Vital Sign Unable to Pay for Housing in the Last Year: No Number of Places Lived in the Last Year: 1 Unstable Housing in the Last Year: No Review of Systems Negative except as noted in the HPI. Objective: BP 152/61 (BP Location (NBP): Right arm, Patient Position: Sitting, BP Cuff Sizes: Adult (25-34 cm)) Pulse (!) 48 Temp 36.3 ??C (97.3 ??F) (Temporal) Resp 14 SpO2 100% Gen- Appears well, NAD Skin - no lesions or rashes noted Neck - supple Pelvic - Exam deferred. Assessment and Plan: I have reviewed this patient's previous records including notes, labs and imaging studies. I have also independently reviewed and interpreted her ultrasound images. Her findings are most consistent with: - Incidentally found thickened endometrium - we discussed that the normal endometrial lining in a postmenopausal patient should be less than or equal to 4mm and that hers is thickened up to 11mm. We discussed that this could be a benign finding such as an endometrial polyp, or it could be precancerous or cancerous cells. We discussed the recommendation for sampling of the endometrium and the options for sampling which include in office EMB versus a hysteroscopy, D&C. We had a long discussion about the benefit that surgical sampling would have and that while vaginal bleeding is a common symptom of endometrial cancer, it is recommended to obtain the sample in the setting of a significantly thickened endometrium. We discussed the limitations of an in office EMB as well as the risks and benefits of a hysteroscopy. We discussed that the risks of a hysteroscopy include the risks of anesthesia, bleeding, infection and uterine perforation which could cause damage to surrounding structures. We also discussed that a hysteroscopy would give a thorough sample of the endometrium. After discussion, Kenyatta would like to proceed with a hysteroscopy, D&C for endometrial sampling. OSC formcompleted and consent signed. We discussed that we may need to do the surgery in the main OR and that she should obtain clearance from her PCP prior due to her history of CHF, which appears to be stable at this time. All questions answered. A total of 75 minutes was spent on the day of the visit for completion of this encounter. (Established patient total visit time: 08539 - 20min, 32463 - 30 min, 31473 - 40 min; New patient total visit times: 24996 - 30 min, 65208 - 45 min, 70576 - 60 min) Philly Zuluaga MD documented in this encounter Plan of Treatment Upcoming Encounters Date Type Department Care Team (Late st Contact Info) Description 02/08/2024 10:00 AM EST Office Visit Hematology/Oncology at [address] [phone] Keisha Rodriguez APRN [address] [place] [address] [place] [address] 02/08/2024 10:30 AM EST Infusion Hematology Oncology at [address] [phone] 02/13/2024 10:00 AM EST Office Visit General Surgery at [address] [phone] Leticia Lieberman MD [address] [place] [address] 11/06/2069 Hospital Encounter Outpatient Surgery Center [facility] [place] [address] Philly Zuluaga MD [facility] DR OBSTETRICS [place] [address] Scheduled Orders Name Type Priority Associated Diagnoses Orde r Schedule SURGICAL CASE REQUEST: HYSTEROSCOPY, SURG W/ENDOMETRIAL SAMPLING, POLYPECTOMY (WRVU 4.17) Procedures Routine Thickened endometrium Ordered: 10/23/2023 Scheduled Procedures Name Priority Associated Diagnoses Date/Ti me HYSTEROSCOPY, SURG W/ENDOMET RIAL SAMPLING, POLYPECTOMY (WRVU 4.17) Thickened endometrium documented as of this encounter Visit Diagnoses Diagnosis Thickened endometrium Nonspecific (abnormal) findings on radiological and other examination of genitourinary organs Postmenopausal state Asymptomatic postmenopausal status (age-related) (natural) documented in this encounter Care Teams Celery Cutter Relationship Specialty Start Date End Date Dane Rick [address] [place] [phone] PCP - General Family Medicine 03/05/23 documented as of this encounter
--- OUTSIDE RECORDS SUMMARY | 2024-02-08 01:04 | XMS_ITS | Encounter Summary ---
Author Organization [facility] [place] [address] Care Team Providers Care Envelope Sealing Machine Operator Name Role Phone Dane Rick Primary Care Provider [phone] Encounter Details Date Type Department Care Team (Late Contact Info) Description 02/04/2024 Telephone Hematology/Oncology at [address] [phone] Deloris Canchola Social History Tobacco Use Types [...] * Telephone Encounter - Deloris Canchola - 02/04/2024 11:11 AM EST Pt called and was upset she was not called re: the appt date change. There was a letter that was sent. She said she will try to have the women who goes with her go and she will call back if the appt will not work. Says that [facility] [place] time cancels appt and does not let the pt know. documented in this encounter Plan of Treatment Upcoming Encounters Date Type Department Care Team (Late Contact Info) Description 02/08/2024 10:00 AM EST Office Visit Hematology/Oncology at [address] [phone] JenniferKeisha dey APRN [address] [place] [address] [place] [address] 02/08/2024 10:30 AM EST Infusion Hematology Oncology at [address] [phone] 02/13/2024 10:00 AM EST Office Visit General Surgery at [address] [phone] Leticia Lieberman MD [address] [place] [address] 11/06/2069 Hospital Encounter Outpatient [place] [phone] Philly Zuluaga MD [facility] OBSTETRICS [place] [address] Scheduled Procedures Name Priority Associated Diagnoses Date/Ti me HYSTEROSCOPY, SURG W/ENDOMET RIAL SAMPLING, POLYPECTOMY (WRVU 4.17) Thickened endometrium documented as of this encounter Visit Diagnoses Not on filedocumented in this encounter Care Teams Envelope Sealing Machine Operator Relationship Specialty Start Date End Date Dane Rick [address] [place] [phone] PCP - General Family Medicine 03/05/23 documented as of this encounter
--- OUTSIDE RECORDS SUMMARY | 2024-02-08 01:05 | XMS_ITS | Encounter Summary ---
Author Organization [place] [address] Care Team Providers Care Credit Card Interviewer Name Role Phone Dane Rick Primary Care Provider [phone] Encounter Details Date Type Department Care Team ([facility] Contact Info) Description 07/17/2023 Telephone Hematology [place] [phone] Rosanne Stauffer MD Social History Tobacco Use Types Packs/Day Years [...] encounter Miscellaneous Notes * Telephone Encounter - Rosanne Stauffer MD - 07/17/2023 1:29 PM EDT RE: returning Kenyatta's call Kenyatta shared multiple concerns today 1- She endorsed that the team is constantly calling her daughter but she prefers to be called first 2- She doesn't understand the rationale of the multiple imaging studies she recently had to have and what are the results and if that affects her treatment 3- She asked about a clinical trial with radiation oncology I explained to Kenyatta that from med onc perspective; I have ordered a DEXA scan to measure baseline BMD prior to starting her on endocrine therapy as per our discussion during her visit She is very concerned about timing in radiation in relation to her diagnosis I reassured Kenyatta that both Dr James and I are meeting with her and Adriana next week I reassured her that I will relay her message to Dr James as well as all of the ordered imaging was per radiation oncology and to discuss more of the plan I explained to her the results of the bone scan that was ordered per rad onc for staging completion * Telephone Encounter - Rosanne Stauffer MD - 07/17/2023 1:24 PM EDT ----- Message from Nupur Garcia sent at 07/17/2023 12:40 PM EDT ----- Hi Dr. James and Dr. Stauffer, Kenyatta and her daughter would like to get in touch to hear whether doing hormone therapy is betterthan completing radiation therapy. The daughter mentioned that during the med onc consult, a clinical trial was discussed? The daughter and Kenyatta want to know what the adverse effects of doing radiation versus hormone therapy are before proceeding. Daughter said they are researching online (which she knows is not always the best thing to do) and are seeing things that are making them think that doing radiation is not the best option for her mom, especially if hormone therapy/clinical trials are available. She feels there is not enough communic ation and they have had to resort to doing their own research to find answers. This has become a very difficult morning. Both the daughter and patient are very upset and it's been very challenging to figure out what exactly they are looking for and why they feel there is such alapse in communication. They would like to have calls from both providers before proceeding. Dr. Stauffer and Dr. James- do you have time to discuss with the patient/her daughter? Daughter saideither person is fine to communicate. Based on my conversation this morning it may be more beneficial to discuss with Adriana directly. She said it is okay to leave the questions answered on her voicemail. documented in this encounter Plan of Treatment Upcoming Encounters Date Type Department Care Team (Late st Contact Info) Description 02/08/2024 10:00 AM EST Office Visit Hematology/Oncology at [address] [phone] JenniferKeisha dey APRN [address] [place] [address] [place] [address] 02/08/2024 10:30 AM EST Infusion Hematology Oncology at [address] [phone] 02/13/2024 10:00 AM EST Office Visit General Surgery at [address] [phone] Leticia Lieberman MD [address] [place] [address] 11/06/2069 Hospital Encounter [place] [address] Philly Zuluaga MD [facility] OBSTET[place] [address] Scheduled Procedures Name Priority Associated Diagnoses Date/Ti me HYSTEROSCOPY, SURG W/ENDOMET RIAL SAMPLING, POLYPECTOMY (WRVU 4.17) Thickened endometrium documented as of this encounter Visit Diagnoses Not on filedocumented in this encounter Care Teams Credit Card Interviewer Relationship Specialty Start Date End Date Dane Rick [address] [place] [phone] PCP - General Family Medicine 03/05/23 documented as of this encounter
--- OUTSIDE RECORDS SUMMARY | 2024-02-08 01:05 | XMS_ITS | Encounter Summary ---
Author Organization [facility] [place] [address] Care Team Providers Care Sales Project Engineer Name Role Phone Dane Rick Primary Care Provider [phone] Reason for Referral * Consultation (LENARD) - Closed Specialty Diagnoses / Procedures Referred By Franky ferreira Referred To Contact Gastroenterology Diagnoses Thickening of esophagus Procedures EGD Sedation: Anesthesia TImeframe: within 6 Weeks -- C. Indication: Abnormal Imaging - circumferential thickening mid esophagus seen on 03/02/23 CT c/a/p. This procedure should be performed with: Any Endoscopist Ann James MD [facility] [place] [address] [facility] [address] [place] [address] Referral ID Status Reason Start Date Expiration Date V isits Requested Visits Authorized [id number] Closed Consult, Test & Treat 06/26/2023 06/25/2024 1 1 * Diagnostic Test (Routine) - Pending Review Specialty Diagnoses / Procedures Referred By Franky ferreira Referred To Contact Radiology Diagnoses Thickening of esophagus Procedures Non DH External Radiology Exam Ann James MD [facility] [place] [address] Referral ID Status Reason Start Date Expiration Date Visits Requested Visits Authorized [id number] Pending Review Specialty Service Requested 06/26/2023 12/26/2024 1 1 * Diagnostic Test (Routine) - Pending Review Specialty Diagnoses / Procedures Referred By Contac t Referred To Contact Radiology Diagnoses Malignant neoplasm of lower-outer quadrant of right breast of female, estrogen receptor positive Procedures MRI Lumbar Spine o Ann Magaña MD [facility] [place] [address] Referral ID Status Reason Start Date Expiration Date Visits Requested Visits Authorized [id number] Pending Review Specialty Service Requested 06/26/2023 12/26/2024 1 1 * Diagnostic Test (Routine) - Pending Review Specialty Diagnoses / Procedures Referred By Franky t Referred To Contact Radiology Diagnoses Malignant neoplasm of lower-outer quadrant of right breast of female, estrogen receptor positive Procedures MRI Thoracic Spine wwAnn Price MD [facility] [place] [address] [place] [address] Referral ID Status Reason Start Date Expiration Date Visits Requested Visits Authorized [id number] Pending Review Specialty Service Requested 06/26/2023 12/26/2024 1 1 Reason for Visit * Consultation (Routine) - Canceled Specialty Diagnoses / Procedures Referred By Contac t Referred To Contact Radiation Oncology Diagnoses Malignant neoplasm of lower-outer quadrant of right breast of female, estrogen receptor positive Procedures Simulation for Radiation Therapy Planning Ann James MD [facility] [place] [address] [facility] Rad Onc Office [address] [place] [phone] Referral ID Status Reason Start Date Expiration Date V isits Requested Visits Authorized [id number] Canceled Consult, Test & Treat 05/28/2023 05/27/2024 20 26 Encounter Details Date Type Department Care Team (Latest Contact Info) Description 06/26/2023 11:30 AM EDT Ancillary Appointment Radiation Oncology at [address] [phone] Ann James MD [facility] [place] [address] Malignant neoplasm of lower-outer quadrant of right breast of female, estrogen receptor positive; Thickening of esophagus; Increased endometrial stripe thickness Social History Tobacco Use Types Packs/Day Years Used Date Smoking Tobacco: Never Smokeless Tobacco: Never Alcohol Use Standard Drinks/Week Comments Not Currently 0 (1 standard drink = 0.6 oz pur e alcohol) seldom Sex and Gender Information Value Date Recorded Sex Assigned at Not on file Gender Identity Not on file Sexual Orientation Not on file documented as of this encounter Patient Instructions * Patient Instructions* Zaida Jansen RN - 06/26/2023 11:30 AM EDT Information for Patients receiving radiation therapy to the Breast Please remember to not take antioxidant supplements during radiation including Nekoma Tail. Approximately two weeks after your first treatment, you may begin to experience side effects causedby the radiation. These effects may continue throughout the treatment period and not start improving until 1-2 weeks after treatment is completed. Your doctor will tell you which side effects you aremost likely to experience, when you will notice them and how long they might last. It is important to follow the appropriate instructions to minimize your discomfort. Skin Care Wash skin in the treatment field with lukewarm water and mild or moisturizing, unscented soap daily. Blot skin dry with a soft towel. Do not apply any ointment, salve, deodorant, perfume, cologne, cosmetic or self- remedy to the treatment area while you are undergoing radiation and for 1-2 weeks following treatment. An all natural deodorant with no aluminum can be used if necessary. Moisturizing cream will be provided for you. This may be used in the treatment area once daily beginning on your first treatment day. Do not apply 2 hours before your radiation treatments. As dryness/redness develop you can use this more often. Do not rub or scratch the skin in the treatment field. This includes shaving unless you use an electric razor. If your skin becomes dry or itchy, tell your nurse or doctor. If necessary, your doctor may order a medication specifically for this problem. Do not use hot water bottles, heating lights, electric heating pads, or hot packs to the treatment area. Keep treated areas out of the sun throughout the treatment period. Be careful of sun exposure to the treatment field for one year following treatment. Please use SPF> 30 to all exposed areas of skin and limit sun exposure. Avoid tight fitting clothes. Examine your skin in the treatment area daily and watch for changes. If you cannot reach the whole treatment field ask a family member to look at it and apply cream as needed. Be careful to keep the area under your breast clean and dry as this area can get irritated first. You will meet with your nurse and doctor weekly. They will check your skin and help you with any side effects you are having. Please ask to see the nurse if you have concerns in between these days. During the last weeks of treatment you may notice some peeling of skin and/or a moist reaction. Be sure to let us know if this happens so we can provide you with further skin care instructions.. Continue to stay active, walk daily, eat healthy foods and drink several glasses of water each day. Fatigue You may notice that you feel unusually tired towards the end of treatment. This is not unusual. We recommend that you pace your activities and plan for rest periods to avoid becoming over-tired. Feel free to direct any questions or concerns you may have related to your treatment to your nurse or doctor. [facility] Radiation Oncology Our normal business hours are: Sunday - Sunday 8 AM to 5 PM [place], [place], [place] For emergent situations after hours please call for either location and ask for the Radiation Oncologist production inspector. documented in this encounter Progress Notes * Zaida Jansen RN - 06/26/2023 11:30 AM EDT Radiation Oncology Simulation Note Kenyatta Vizcaino is here for radiation planning , undergoing a simulation to the right breast, supraclavicular, axilla fossa for breast cancer treatment . Usual radiation oncology routines and purpose of on treatment visits were explained. Remedy Moisturizing cream provided and instructions for use reviewed Anticipatory Guidance: Please see AVS. Instructed to not take Nekoma Tail during xrt. Barriers to Treatment/ Compliance issues identified: Dependant on family for rides which should notbe an issue. Patient confirms they can have no difficulties lying flat. pre- medication plan made: Limited mechanical mobility left shoulder. Referrals: SURGERY SCHEDULER per routine. Answers submitted by the patient for this visit: (Submitted on 06/26/2023) Distress: 0 * Ann James MD - 06/26/2023 11:30 AM EDT Here for sim. S: Continued discomfort in L upper arm. Accompanied by daughter. 05/28/23 Plain xrays L shoulder & C spine: Multilevel degenerative disc dz. 06/19/23 Bone scan: Increased uptake T8 & L spine. Review of images shows no increased uptake inL humerus. A/P: L upper arm discomfort of unknown etiology. She has appt w/PCP (Dr. Rick) 07/02/23 & will speak w/him about it. MRI T & L spine to eval for met dz. Esophagram to eval circumferential thickening mid esophagus seen on 03/02/23 CT c/a/p. Gastroenterology referral () for same. Pelvic US to eval thickening of endometrial stripe seen on 03/02/23 CT c/a/p. Recommend proceeding w/curative intent xrt to R breast & lymphs. Possible side effects & need for Ctsim discussed & she wishes to proceed. Sim: Vaclok w/breast bd immobilization; wire pieces on R breast lumpectomy scar & flat bbs on Rbreast perimeter; CT through neck & chest; 3D xrt planned. She tolerated sim well, w/o problem. Tx Plan: 3D xrt. Start xrt 1-2 wks. She has been advised to not take antioxidants including Nekoma Tail during xrt. documented in this encounter Plan of Treatment Upcoming Encounters Date Type Department Care Team (Late st Contact Info) Description 02/08/2024 10:00 AM EST Office Visit Hematology/Oncology at [address] [phone] Keisha Rodriguez APRN [address] [place] [address] [place] [address] 02/08/2024 10:30 AM EST Infusion Hematology Oncology at [address] [phone] 02/13/2024 10:00 AM EST Office Visit General Surgery at [address] [phone] Leticia Lieberman MD [address] [place] [phone] 11/06/2069 Hospital Encounter [place] [address] Philly Zuluaga MD [facility] DR OBSTETRICS [place] [address] Scheduled Orders Name Type Priority Associated Diagnoses Orde r Schedule MRI Thoracic Spine wwo Contrast Imaging Routine Malignant neoplasm of lower-outer quadrant of right breast of female, estrogen receptor positive Expected: 07/03/2023, Expires: 01/02/2024 MRI Lumbar Spine wwo Contrast Imaging Routine Malignant neoplasm of lower-outer quadrant of right breast of female, estrogen receptor positive Expected: 07/03/2023, Expires: 01/02/2024 Non DH External Radiology Exam Imaging Routine Thickening of esophagus Expected: 06/28/2023, Expires: 12/28/2023 US Pelvis Complete Imaging Routine Increased endometrial stripe thickness Expected: 06/29/2023, Expires: 12/29/2023 Scheduled Procedures Name Priority Associated Diagnoses Date/Ti me HYSTEROSCOPY, SURG W/ENDOMET RIAL SAMPLING, POLYPECTOMY (WRVU 4.17) Thickened endometrium Scheduled Referrals Name Type Priority Associated Diagnoses Order Schedule Referral to Gastroenterology Outpatient Referral Routine Thickening of esophagus Ordered: 06/26/2023 documented as of this encounter Visit Diagnoses Diagnosis Malignant neoplasm of lower-outer quadrant of right breast of female, estrogen receptor positive Thickening of esophagus Other specified disorder of the esophagus Increased endometrial stripe thickness Nonspecific (abnormal) findings on radiological and other examination of genitourinary organs documented in this encounter Care Teams Sales Project Engineer Relationship Specialty Start Date End Date Rick, Dane [address] [place] [phone] PCP - General Family Medicine 03/05/23 documented as of this encounter
--- OUTSIDE RECORDS SUMMARY | 2024-02-08 01:05 | XMS_ITS | Encounter Summary ---
Author Organization [facility] [place] [address] Care Team Providers Care Bat Person Name Role Phone Dane Rick Primary Care Provider [phone] Encounter Details Date Type Department Care Team (Late st Contact Info) Description 07/17/2023 Telephone Hematology/Oncology at [address] [phone] Nupur Paul Social History Tobacco Use Types Packs/Day Years [...] encounter Miscellaneous Notes * Telephone Encounter - Nupur Garcia - 07/17/2023 11:19 AM EDT 07/17/23 at 10am Kenyatta was due for a dexa scan at [facility] on 07/09. I called to retrieve the results and the radiology team said she did not show for her appointment. I called Kenyatta this morning to check in and see iftim has been able to reschedule her appointment. Kenyatta was upset about the missed appointment because she is adamant she didn't miss her appointment, but is also upset because someone said she forgot her appointment because of her age. Kenyatta says she works very hard to keep track of her appointments and doesn't want to be accused of being forgetful. Kenyatta wanted to know if she still needed the dexa scan and the visit with Dr. Stauffer on 07/23. Her dexa was rescheduled to 07/31 but she wasn't sure if it conflicted with her radiation treatment. Kenyatta also mentioned that she was frustrated her radiation schedule was moved back. She feels that she's been given mixed messages on the timing of her start. Kenyatta had been set up to start treatment but had to be re-simmed because her planning did not line up properly for treatment. After the call, I spoke to the RTT team that has been working with her and they stated that they called and spo ke with her and her daughter to confirm that they are planning to bring her back for film set up on07/22, to start on 07/23. I left Adriana, her daughter, a voicemail and requested she call me back so I can walk through the plan for her mom's appointments. Dr. Connors would still like to see her mother on 08/22 after radiation appointments, and we will plan to have her schedule her dexa scan at next available. 07/17/23 at 12:26pm Adriana, Kenyatta's daughter, called back and was very frustrated with the current plan for Kenyatta. She said she would like to hear more from Dr. Stauffer on opportunities for clinical trials for hormone therapy, or hormone therapy options without radiation treatment, before they want to proceed with radiation treatment next week. Adriana said that they still have questions regarding the overall benefitsor adverse effects of radiation in general and want to know if doing hormone therapy is a better course of treatment than doing radiation. Adriana said they are ready to put all radiation treatment to a hault. She said they are not getting straight answers and feel that no one is communicating. I let Adriana know I would put out a note to theteam and have them give her a call back. Adriana said it is okay to leave a detailed message on her voicemail as she is traveling for the day. documented in this encounter Plan of Treatment Upcoming Encounters Date Type Department Care Team (Late st Contact Info) Description 02/08/2024 10:00 AM EST Office Visit Hematology/Oncology at [address] [phone] Keisha Rodriguez, DIRECTOR OF [employer]SUMER MARKETING [address] [place] [address] [place] [address] 02/08/2024 10:30 AM EST Infusion Hematology Oncology at [address] [phone] 02/13/2024 10:00 AM EST Office Visit General Surgery at [address] [phone] Leticia Lieberman MD [address] [place] [phone] 11/06/2069 Hospital Encounter Outpatient [place] [phone] Philly Zuluaga MD [facility] OBSTETRICS [place] [address] Scheduled Procedures Name Priority Associated Diagnoses Date/Ti me HYSTEROSCOPY, SURG W/ENDOMET RIAL SAMPLING, POLYPECTOMY (WRVU 4.17) Thickened endometrium documented as of this encounter Visit Diagnoses Not on filedocumented in this encounter Care Teams Bat Person Relationship Specialty Start Date End Date Dane Rick [address] [place] [phone] PCP - General Family Medicine 03/05/23 documented as of this encounter
--- OUTSIDE RECORDS SUMMARY | 2024-02-08 01:05 | XMS_ITS | Encounter Summary ---
Author Organization [facility] [address] Care Team Providers Care Digital Product Manager Name Role Phone Dane Rick Primary Care Provider [phone] Encounter Details Date Type Department Care Team (Late st Contact Info) Description 08/03/2023 10:50 AM EDT Anesthesia Event [place] [address] Levy Kruger DO [facility] [place] [address] Barb Rush MD [facility] [place] [address] Anesthesia Record Procedure Summary Procedure Name Responsible Anesthesiologist Anesthesia Start Time Anesthesia Stop Time EGD WITH BIOPSY (WRVU 2.39) (Trunk) Levy Kruger DO 08/03/23 1050 08/03/23 1116 Events Date Time Event Comment 08/03/2023 1040 1050 AN Verify 1050 Start 1050 An Start Data 1055 Anesthesia Ready 1112 an stop data 1116 Recovery or ICU Handoff Wendie ent care was transferred to the destination unit staff after review of the patient's medical history, current anesthetic/surgical status and plan, according to the Provider Handoff Checklist. 1116 Stop Meds Name Total Propofol 30 mg Propofol INF 46.31 mg lactated ringers infusion 300 mL * Agents No agents on file. * Blood No blood administrations on file. Lines, Drains, and Airways Type Details Placement Removal PIV 08/03/23; 1024; vvlz-qfn-odctch catheter system; 22 gauge; dorsal arch vein (top of hand), right; Leonarda RN; 08/03/23; 1151 08/03/23 1024 by Antonette Eller RN 08/03/23 1151 by Mendoza Pearl RN documented in this encounter Social History Tobacco Use Types Packs/Day Years Used Date Smoking Tobacco: Never Smokeless Tobacco: Never Alcohol Use Standard Drinks/Week Comments Not Currently 0 (1 standard drink = 0.6 oz pur e alcohol) seldom Sex and Gender Information Value Date Recorded Sex Assigned at Not on file Gender Identity Not on file Sexual Orientation Not on file documented as of this encounter OR Notes * Anesthesia Postprocedure Evaluation - Barb Rush MD - 08/03/2023 11:40 AM EDT Department of Anesthesiology Post-procedure Note Patient: Kenyatta Vizcanio Procedure Summary Date: 08/03/23 Room / Location: [facility] ENDO 5 / [facility] ENDOSCOPY Anesthesia Start: 1050 Anesthesia Stop: 1116 Procedure: EGD WITH BIOPSY (WRVU 2.39) (Trunk) Diagnosis: (EGD ) ( Sedation: Anesthesia ) ( TImeframe: within 6 Weeks -- C.) ( Indication: Abnormal Imaging - circumferential thickening mid esophagus seen on 03/02/23 CT c/a/p) Surgeons: Héctor Allen MD Responsible Provider: Levy Kruger DO Anesthesia Type: MAC ASA Status: 2 All Anesthesia Providers: Anesthesiologist: Levy Kruger DO Equipment Oiler: Barb Rush MD Vitals Value Taken Time BP 153/77 08/03/23 1130 Temp Pulse Resp SpO2 100 % 08/03/23 1139 Pain Level 0 08/03/23 1130 Vitals shown include unfiled device data. Patient Location: PACU/[facility] Level of Consciousness: Awake and Alert Pain Management: Satisfactory Analgesia PONV: None Cardiovascular Status: At Baseline Respiratory Status: At Baseline Postoperative Fluid Status: Possible Anesthetic Complications: NONE apparent at time of evaluation Final Primary Anesthesia Type: MAC (The anesthetic type performed was the same as planned.) Comments: Patient awake and alert, interactive. No complications. Barb Rush MD * Anesthesia Preprocedure Evaluation - Barb Rush MD - 08/02/2023 2:00 PM EDT Pre-Anesthesia Evaluation for: Kenyatta Vizcaino a 82 y.o. female. Procedure(s): EGD, UPPER GI ENDOSCOPY (VU 2.09) Patient Active Problem List Diagnosis Date Noted Invasive ductal carcinoma of right breast 03/08/2023 Thickened endometrium 03/08/2023 TMJ derangement 03/08/2023 Hypercalcemia 09/19/2022 Chronic pain of left knee 09/19/2022 Left shoulder pain 09/19/2022 Hemiplegia and hemiparesis following cerebral infarction affecting right dominant side 03/21/2021 CVA (cerebral vascular accident) 03/21/2021 Congestive heart failure 02/22/2021 Nontoxic multinodular goiter 09/03/2020 Arteriosclerotic cardiovascular disease 05/06/2019 Balance problems 05/06/2019 Chronic post-traumatic headache, not intractable 05/06/2019 Depression with anxiety 05/06/2019 Diverticular disease of colon 05/06/2019 Essential (primary) hypertension 05/06/2019 Hypercholesterolemia 05/06/2019 Injury of head 05/06/2019 Obesity 05/06/2019 ABDOULAYE (obstructive sleep apnea) 05/06/2019 Trigeminal neuralgia 05/06/2019 Unspecified rotator cuff tear or rupture of right shoulder, not specified as traumatic 05/06/2019 Vertigo 05/06/2019 Past Medical History: Diagnosis Date Benign essential HTN Breast cancer right CHF (congestive heart failure) CVA (cerebral vascular accident) Depression with anxiety Diverticular disease of colon Goiter Trigeminal neuralgia Past Surgical History: Procedure Laterality Date MASTECTOMY, PARTIAL Right 04/16/2023 ROTATOR CUFF REPAIR Right Social History Tobacco Use Smoking status: Never Smokeless tobacco: Never Substance Use Topics Alcohol use: Not Currently Comment: seldom Social History Substance and Sexual Activity Drug Use Never Allergies Allergen Reactions Atorvastatin Other (See Comments) Other reaction(s): Other (See Comments) Azithromycin Metoprolol Other (See Comments) heart failure? Metronidazole Penicillins Rash Medications: MAR and/or home medications have been reviewed. Physical Exam: Preprocedure Vitals Current as of 08/02/23 1400 No BP, pulse, respiration, SpO2, or temperature recorded. Height: Weight: BMI: IBW: 39.1 kg (86 lb 3.6 oz) Airway Assessment: Mallampati: II TM distance: >3 FB Neck ROM: full Cardiovascular Assessment: system normal Pulmonary Assessment: pulmonary exam normal Dental Assessment: (+) upper dentures Misc Assessment: IV access: Peripheral line Last Filed Perioperative Cognitive Screening None Anesthesia Plan: ASA 2 Kenyatta CORLEY is an 82yo female presenting for upper endoscopy for esophageal surveillance forknown thickening. Appropriately NPO. Allergies reviewed. PMH: HTN, Depression/anxiety, R hemiplegia s/p stroke (no residual symptoms), ASCVD, CHF, vertigo, trigeminal neuralgia, chronic headache, breast cancer, obesity (BMI30) Plan: MAC PIV Barb Rush MD Informed Consent: Anesthetic plan and risks discussed with patient. Plan discussed with resident and attending. Anesthesia Screening documented in this encounter Plan of Treatment Upcoming Encounters Date Type Department Care Team (Late st Contact Info) Description 02/08/2024 10:00 AM EST Office Visit Hematology/Oncology at [address] [phone] Keisha Rodriguez APRN [address] [place] [address] [place] [address] 02/08/2024 10:30 AM EST Infusion Hematology Oncology at [address] [address] 02/13/2024 10:00 AM EST Office Visit General Surgery at [address] [phone] Leticia Lieberman MD [address] [place] [address] [place] [address] 11/06/2069 Hospital Encounter [place] [phone] Phlily Zuluaga MD [facility] OBSTETRICS [place] [address] Scheduled Procedures Name Priority Associated Diagnoses Date/Ti me HYSTEROSCOPY, SURG W/ENDOMET RIAL SAMPLING, POLYPECTOMY (WRVU 4.17) Thickened endometrium documented as of this encounter Visit Diagnoses Not on filedocumented in this encounter Administered Medications Inactive Administered Medications - up to 3 most recent administrations Medication Order MAR Action Action Date Dose Rate Site lactated ringers infusion 100 mL/hr, Intravenous, CONTINUOUS, Starting on Sun08/03/23 at 1030, Until Sun08/03/23 at 1151, Endoscopy (Day of Procedure) Restarted 08/03/2023 10:50 AM EDT New Bag 08/03/2023 10:30 AM EDT 100 mL/hr 100 mL/hr propofoL (Diprivan) (10 mg/mL) infusion Intravenous, CONTINUOUS PRN, Starting on Sun08/03/23 at 1054, Until Sun08/03/23 at 1129, Anesthesia Intra-op, Routine Rate/Dose Change 08/03/2023 11:03 AM EDT 50 mcg/kg/min 14.94 mL/hr Rate/Dose Change 08/03/2023 10:57 AM EDT 80 mcg/kg/min 23. 904 mL/hr New Bag 08/03/2023 10:54 AM EDT 50 mcg/kg/min 14.94 mL/ hr propofoL (Diprivan) 10 mg/mL bolus injection (Anesthesia) Intravenous, PRN, Starting on Sun08/03/23 at 1100, Until Sun08/03/23 at 1129, Anesthesia Intra-op Given 08/03/2023 11:00 AM EDT 30 mg documented in this encounter Care Teams Digital Product Manager Relationship Specialty Start Date End Date RickDane guevara [address] [place] [phone] PCP - General Family Medicine 03/05/23 documented as of this encounter
--- OUTSIDE RECORDS SUMMARY | 2024-02-08 01:05 | XMS_ITS | Encounter Summary ---
Author Organization [facility] Address [facility] [place] [address] Care Team Providers Care [employer] Team Member Name Role Phone Dane Rick Primary Care Provider [phone] Encounter Details Date Type Department Care Team (Late Contact Info) Description 07/20/2023 11:40 PM EDT Ancillary Procedure Radiology Library at [facility] [place] [address] Ann James MD [facility] [place] [address] Social History Tobacco Use Types Packs/Day Years [...] 10:00 AM EST Office Visit Hematology/Oncology at [address] [phone] Keisha Rodriguez APRN [address] [place] [address] DR MEDICAL ONCOLOGY [place], [place] [id number] 02/08/2024 10:30 AM EST Infusion Hematology Oncology at [address] [phone] 02/13/2024 10:00 AM EST Office Visit General Surgery at [address] [phone] Leticia Lieberman MD [address] [place] [address] [place] [address] 11/06/2069 Hospital Encounter Outpatient Surgery Center [facility] [place] [address] Philly Zuluaga MD [facility] DR OBSTETRICS [place] [address] Scheduled Procedures Name Priority Associated Diagnoses Date/Ti me HYSTEROSCOPY, SURG W/ENDOMET RIAL SAMPLING, POLYPECTOMY (WRVU 4.17) Thickened endometrium documented as of this encounter Procedures Procedure Name Priority Date/Time Associated Diagnosis Comments FILM LIBRARY STORAGE ONLY DX GI STUDY Routine 07/20/2023 11:34 PM EDT documented in this encounter Results * Film Library- Storage Only DX GI Study (07/20/2023 11:34 PM EDT) Narrative RAD - 07/20/2023 11:34 PM EDT This exam is auto-finalizing. It's purpose is for storage only. Ann James MD [facility] [place]M LIBRARY ORD ERABLES [place], [place] documented in this encounter Visit Diagnoses Not on filedocumented in this encounter Care Teams [employer] Team Member Relationship Specialty Start Date End Date Dane Rick [address] [place] [phone] PCP - General Family Medicine 03/05/23 documented as of this encounter
--- OUTSIDE RECORDS SUMMARY | 2024-02-08 01:05 | XMS_ITS | Encounter Summary ---
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) Social History Tobacco Use Types Packs/Day Years [...] Sign Reading Time Taken Comments Blood Pressure 138/68 07/31/2023 1:58 PM EDT Pulse 65 07/31/2023 1:58 PM EDT Temperature - - Respiratory Rate - - Oxygen Saturation 98% 07/31/2023 1:58 PM EDT Inhaled Oxygen Concentration - - Weight 65.8 kg (145 lb) 07/31/2023 1:58 PM EDT Height 149.9 cm (4' 11.02) 07/31/2023 1:58 PM E DT Body Mass Index 29.27 07/31/2023 1:58 PM EDT documented in this encounter Progress Notes * Leticia Lieberman MD - 07/31/2023 2:00 PM EDT Breast Surgical Oncology: Reason for Visit: right breast cancer HPI: Kenyatta is an 82y woman hx CVA on ASA, HTN, ABDOUALYE, ?CHF who presents with palpation detected IDC (ER+/NV-/HER2-) [id number] s/p right partial mastectomy 04/16/2023. [id number] She has started the letrozole. Tolerating fairly well now that she takes it at night. They had questions about additional medications including abemaciclib and ivermectin which I said Dr. Stauffer would be better suited to answer, but certainly there are side effects with each type of medicine. She has some left foot pain that is limiting her activity. 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 She is accompanied by her daughter. She has no family history of breast cancer. 38C Menarche: 14 Control: no OB: Age at first : 20 Breast Feeding: y Uterus/Ovaries in tact: y Menopause: unsure HRT: n Radiation exposure: n ETOH: seldom; Smoking: n; Drugs: n ROS: General: no fevers, sweats, chills, weight loss Neuro: no tremors, focal neurologic symptoms, visual disturbances, headaches CV: no dyspnea when laying flat, no palpitations Resp: no shortness of breath Endocrine: no polydipsia/polyuria/sluggishness GI: no constipation/diarrhea Hematology: no easy bruising or bleeding Renal/: no dysuria/hematuria/incontinence Extremities: no muscle weakness, joint pain Skin/Integumentary: no rash, no jaundice No family history on file. Past Medical History: Diagnosis Date Benign essential HTN Breast cancer right CHF (congestive heart failure) CVA (cerebral vascular accident) Depression with anxiety Diverticular disease of colon Goiter Trigeminal neuralgia Past Surgical History: Procedure Laterality Date MASTECTOMY, PARTIAL Right 04/16/2023 ROTATOR CUFF REPAIR Right Current Outpatient Medications: emollient combination no.111 (REMEDY PHYTOPLEX MOISTURIZER TOP), Apply topically. Phytoplex Remedy Moisturizer: Apply to area of radiation twice a day but no less than 2 hours before a treatment., Disp: , Rfl: letrozole (Femara) 2.5 mg tablet, Take 1 tablet by mouth daily., Disp: 90 tablet, Rfl: 3 UNABLE TO FIND, Take by mouth. Dawson Tail, Disp: , Rfl: Ergocalciferol, Vitamin D2, 10 mcg (400 unit) Tablet, Take 1 tablet by mouth., Disp: , Rfl: MAGNESIUM GLUCONATE ORAL, Take 1 tablet by mouth., Disp: , Rfl: aspirin EC 81 mg EC (DR) tablet, Take 81 mg by mouth daily., Disp: , Rfl: furosemide (Lasix) 20 mg tablet, TAKE 2 TABLETS BY MOUTH ONCE DAILY IN THE MORNING AND 1 IN THE AFTERNOON, Disp: , Rfl: losartan (Cozaar) 100 mg tablet, Take 100 mg by mouth Daily., Disp: , Rfl: Allergies Allergen Reactions Atorvastatin Other (See Comments) Other reaction(s): Other (See Comments) Azithromycin Metoprolol Other (See Comments) heart failure? Metronidazole Penicillins Rash Physical Exam: Blood pressure 138/68, pulse 65, height 149.9 cm (4' 11.02), weight 65.8 kg (145 lb), SpO2 98%. General:pleasant, NAD Neuro: A and O x 3 HEENT: no thyromegaly, dry mucous membranes CV: RRR RESP: Breathing is unlabored on room air, no wheezes or cough ABD: ND EXT: well perfused; 5/5 strength U and L ext Lymphatics: no supraclavicular,cervical, adenopathy. Today I am unable to appreciate any lymphadenopathy Left Breast: no palpable masses, no skin changes, no nipple changes, +ptosis Right Breast: lateral incision well approximated. There is some contracture of the skin due to a paucity of breast tissue. No underlying palpable masses. Recent Imaging: no additional imaging Surgical pathology: IDC Grade 2 25mm 4 foci of invasive cancer Margins negative Additional nodule was lymph node - negative for cancer. Assessment & Plan: Kenyatta is an 82y woman with significant comorbidities who presents with a palpation detected rightIDC, intermediate grade ER+/NV-/HER2-. pT2NX (abnormal nodes on imaging) M0 She is s/p right partial mastectomy 04/16. [id number] - We discussed radiation - which I think would be beneficial for her given the worry that she has some joint pain at baseline and she may not tolerate letrozole very well, although I would strongly encourage her to do both - Resume normal activities - I will look into an orthopedist in [facility] for her - Follow up in 6 months Approximately 5 minutes were spent on this chart review Approximately 25 minutes were spent with the patient, of which 20 minutes were spent counseling. 2 minutes were spent coordinating care documented in this encounter Plan of Treatment Upcoming Encounters Date Type Department Care Team (Late st Contact Info) Description 02/08/2024 10:00 AM EST Office Visit Hematology/Oncology at [address] [phone] Keisha Rodriguez APRN [address] [place] [address] [place] [address] 02/08/2024 10:30 AM EST Infusion Hematology Oncology at [address] [phone] 02/13/2024 10:00 AM EST Office Visit General Surgery at [address] [phone] Leticia Lieberman MD [address] [place] [address] 11/06/2069 Hospital Encounter [place] [address] Philly Zuluaga MD [facility] [place] [address] Scheduled Procedures Name Priority Associated Diagnoses Date/Ti me HYSTEROSCOPY, SURG W/ENDOMET RIAL SAMPLING, POLYPECTOMY (WRVU 4.17) Thickened endometrium documented as of this encounter Visit Diagnoses Diagnosis Invasive ductal carcinoma of right breast- Primary documented in this encounter Care Teams Field Reporter Relationship Specialty Start Date End Date Dane Rick [address] [place] [phone] PCP - General Family Medicine 03/05/23 documented as of this encounter
--- OUTSIDE RECORDS SUMMARY | 2024-02-08 01:05 | XMS_ITS | Encounter Summary ---
[place] [address] Care Team Providers Care Reinforcing Iron Worker Helper Name Role Phone Dane Rick Primary Care Provider [phone] Encounter Details Date Type Department Care Team (Late Contact Info) Description 10/12/2023 Telephone General Surgery at [address] [phone] Heaven Delgado, RN Social History Tobacco Use Types Packs/Day Years [...] encounter Miscellaneous Notes * Telephone Encounter - Heaven Delgado, RN - 10/12/2023 4:20 PM EDT Called Kenyatta (name and verified) to share message below from Dr Lieberman. Ortiz Scott in [facility] who was recommended for leg/foot orthopedics. Let her know that Dr Lieberman sent her a [employer] message but it shows unopened. She reports issues with her phone and that she does not check her messagesfrequently. She just started PT but will reach out to Dr Scott if not improving. She thanked for the call and information. documented in this encounter Plan of Treatment Upcoming Encounters Date Type Department Care Team (Late Contact Info) Description 02/08/2024 10:00 AM EST Office Visit Hematology/Oncology at [address] [phone] Keisha Rodriguez APRN [address] [place] [address] [place] [address] 02/08/2024 10:30 AM EST Infusion Hematology Oncology at [address] [phone] 02/13/2024 10:00 AM EST Office Visit General Surgery at [address] [phone] Leticia Lieberman MD [address] [place] [address] 11/06/2069 Hospital Encounter Outpatient [place] [address] Philly Zuluaga MD [facility] OBSTETRICS [place] [address] Scheduled Procedures Name Priority Associated Diagnoses Date/Ti me HYSTEROSCOPY, SURG W/ENDOMET RIAL SAMPLING, POLYPECTOMY (WRVU 4.17) Thickened endometrium documented as of this encounter Visit Diagnoses Not on filedocumented in this encounter Care Teams Reinforcing Iron Worker Helper Relationship Specialty Start Date End Date Dane Rick [address] [place] [phone] PCP - General Family Medicine 03/05/23 documented as of this encounter
--- OUTSIDE RECORDS SUMMARY | 2024-02-08 01:05 | XMS_ITS | Encounter Summary ---
[place] [address] Care Team Providers Care Label Printer Name Role Phone Merline Dane Primary Care Provider [phone] Encounter Details Date Type Department Care Team ([facility] st Contact Info) Description 08/14/2023 Telephone Radiation Oncology at [address] [phone] Zaida Jansen RN Social History Tobacco Use Types Packs/Day [...] encounter Miscellaneous Notes * Telephone Encounter - Zaida Jansen RN - 08/14/2023 2:08 PM EDT Telephone call to PCP Dane Rick MD as requested by Dr. James. Spoke with Gera to let him know that blood work done yesterday @ [facility] eval showed elevated liver fxn tests, which is not from xrt and also that patient may not be continuing w/xrt due to fatigue. Dr. James is wondering if he would like her to order an US of thyroid for eval 3.5 cm L thyroid nodule seen on CT. Lastly, does he wanther to order omeprazole for erosions seen on upper endoscopy? I also let Gera know that Dr. James has asked her secretaries to fax her note from today, 08/03/23 upper endoscopy procedure note & 08/03/[address] Rick. I also provided our clinic contact information for call back. Dr. James updated via this note. * Telephone Encounter - Zaida Jansen RN - 08/14/2023 2:08 PM EDT ----- Message from Ann James MD sent at 08/14/2023 12:34 PM EDT ----- Zaida, please call Dr. Rick's office & inform that labs yesterday @ [facility] eval showed elevated liver fxn tests, which is not from xrt; also that patient may not be continuing w/xrt due to fatigue. And, I'm wondering if he would like me to order an US of thyroid for eval 3.5 cm L thyroid nodule seen on CT; also, does he want me to order omeprazole for erosions seen on upper endoscopy? Rakesh Nance Rad Onc Sec, please fax my note from today, 08/03/23 upper endoscopy procedure note & 08/03/[address] Rick. Ann documented in this encounter Plan of Treatment Upcoming Encounters Date Type Department Care Team (Late st Contact Info) Description 02/08/2024 10:00 AM EST Office Visit Hematology/Oncology at [address] [phone] Keisha Rodriguez LATHER APPRENTICE [address] [place] [address] [place] [address] 02/08/2024 10:30 AM EST Infusion Hematology Oncology at [address] [phone] 02/13/2024 10:00 AM EST Office Visit General Surgery at [address] [phone] Leticia Lieberman MD [address] [place] [address] 11/06/2069 Hospital Encounter [place] [phone] Philly Zuluaga MD [facility] OBSTETRICS AND [place] [address] Scheduled Procedures Name Priority Associated Diagnoses Date/Ti me HYSTEROSCOPY, SURG W/ENDOMET RIAL SAMPLING, POLYPECTOMY (WRVU 4.17) Thickened endometrium documented as of this encounter Visit Diagnoses Not on filedocumented in this encounter Care Teams Label Printer Relationship Specialty Start Date End Date Dane Rick [address] [place] [phone] PCP - General Family Medicine 03/05/23 documented as of this encounter
--- OUTSIDE RECORDS SUMMARY | 2024-02-08 01:05 | XMS_ITS | Encounter Summary ---
Author Organization [facility] [place] [address] Care Team Providers Care Mogul Operator Name Role Phone Dane Rick Primary Care Provider [phone] Encounter Details Date Type Department Care Team ([facility] st Contact Info) Description 08/02/2023 Telephone [place] [address] Faraz Greenberg Social History Tobacco Use Types Packs/Day Years [...] encounter Miscellaneous Notes * Telephone Encounter - Faraz Greenberg - 08/02/2023 8:04 AM EDT Kenyatta Vizcaino [id number] Diagnosis/Indication: Abnormal Imaging Please review patient chart to confirm if previous Endoscopy procedure was performed within system. If yes, take note of Anesthesia type used. If previous procedure found, and with MAC/propofol Anesthesia support was used, schedule this procedure with Anesthesia and skip the Anesthesia portion of questions. If not performed within system, not performed at all, or performed with IVCS, ask Anesthesia questions. SCHEDULING QUESTIONS (ask all patient these questions) Have you ever had a/an Upper Endoscopy before? Unknown If yes, did you have any problems with the procedure (such as waking up during the procedure, pain or difficulties afterwards, etc.)? No What type of sedation was used: Other: unknown (ASK ONLY FOR COLONOSCOPY PROCEDURES) Are you aware, or have you ever been told that you had a poor prep or failed prep with a previous colonoscopy? No If yes, assign the Extended MiraLAX Prep (ASK ONLY FOR COLONOSCOPY PROCEDURES) Do you have an ongoing history of constipation? (E.g., hard stools, >2 days without a bowel movement, straining or difficulty passing stool) No If yes, assign the Extended MiraLAX Prep Do you take any blood thinners or have you been diagnosed with a bleeding disorder that increases your risk of bleeding with procedures? No Do you have a Pacemaker or Defibrillator device? If yes, send pool message to Cardiology with patient information and date or procedure. No Do you have diabetes? If yes, call PCP/managing provider to discuss use of prep and any questions or concerns related to. No If yes, assign the Extended MiraLAX Prep Do you take any iron supplements or vitamins that contain iron? No Do you have a preference regarding the gender of your provider? Yes prefers men but ok either way ANESTHESIA QUESTIONS (YES to any question, please book with Anesthesia support) Have you ever been diagnosed with Pulmonary Hypertension and/or Congential Heart Disease? No Have you been diagnosed with A-Fib (atrial fibrillation) that is NOT being well controled with medications? No Have you ever had an allergic or adverse reaction to Fentanyl or Versed? No Have you had a problem with sedation or anesthesia? (Waking up during procedure, extreme confusion after, etc.) No Do you have a diagnosis of Obstructive Sleep Apnea that requires the use of a c- pap machine? No Do you use an oxygen tank at home? No Do you use a rescue inhaler more than twice per day? (COPD, severe asthma) No Do you experience breathing problems when you lay flat for a period of time? No Do you regularly take prescription opioid pain medications on a daily basis? (Includes oxycodone, Percocet, Suboxone, methadone, etc.) No If yes, assign the Extended MiraLAX Prep SCHEDULING CONFIRMATIONS: Please note any and all parts of your conversation with the patient here. We offer all new patients an opportunity to have an appointment with one of our associate care providers to learn more about your upcoming procedure, ask questions and get answers. These appointmentsare offered via telehealth. Would you be interested in scheduling this appointment? (Only ask if NEW referral patient; skip this question if [facility] provider ordered the procedure.) No Is there any other information or concerns you would like to us to share with your care team in relation to your upcoming scheduled procedure? No You must have a responsible green party who will drive you to your procedure, stay on campus for the entire duration of your procedure, and drive you home from your procedure. Who will likely be your wrecking car driver for the procedure? *Please Verify the height and weight, and adjust if height and/or weight have changed* Estimated body mass index is 29.27 kg/m?? as calculated from the following: Height as of 07/31/23: 149.9 cm (4' 11.02). Weight as of 07/31/23: 65.8 kg (145 lb). Age:82 y.o. documented in this encounter Plan of Treatment Upcoming Encounters Date Type Department Care Team (Late st Contact Info) Description 02/08/2024 10:00 AM EST Office Visit Hematology/Oncology at [address] [phone] Keisha Rodriguez APRN [address] [place] [address] [place] [address] 02/08/2024 10:30 AM EST Infusion Hematology Oncology at [address] [phone] 02/13/2024 10:00 AM EST Office Visit General Surgery at [address] [phone] Leticia Lieberman MD [address] [place] [address] 11/06/2069 Hospital Encounter Outpatient [place] [address] Philly Zuluaga MD [facility] [place] [address] Scheduled Procedures Name Priority Associated Diagnoses Date/Ti me HYSTEROSCOPY, SURG W/ENDOMET RIAL SAMPLING, POLYPECTOMY (WRVU 4.17) Thickened endometrium documented as of this encounter Visit Diagnoses Not on filedocumented in this encounter Care Teams Mogul Operator Relationship Specialty Start Date End Date Dane Rick [address] [place] [phone] PCP - General Family Medicine 03/05/23 documented as of this encounter
--- OUTSIDE RECORDS SUMMARY | 2024-02-08 01:05 | XMS_ITS | Encounter Summary ---
Author Organization [facility] [place] [address] Care Team Providers Care Software Applications Engineer Name Role Phone Dane Rick Primary Care Provider [phone] Reason for Visit * Reason Onset Date Comments Follow-up 07/06/2023 Confusion? Encounter Details Date Type Department Care Team (Late st Contact Info) Description 07/06/2023 Telephone Radiation Oncology at [address] [phone] Mara Yang, RN Follow-up (Confusion?) Social History Tobacco Use Types Packs/Day Years [...] encounter Miscellaneous Notes * Telephone Encounter - Mara Yang RN - 07/06/2023 3:18 PM EDT RN call to patients daughter Adriana per Dr James to assess confusion and to see if Adriana would be coming with Kenyatta on Sunday when she starts radiation. Upon being asked if her mother is confused, Adriana became very upset with me stating that she is not just old and confused. Adriana tells me that her and her mother are both confused due to miscommunications from our office. See nursing note from 2days ago regarding RN speaking with patient confirming that she will have ordered imaging done. As noted below, when [facility] called the patient today to schedule the imaging, she did not want to be scheduled because she said she didn't know about them or why she needed them. I again confirmed with Adriana that her mother is starting radiation in [facility] on 07/09 at 2:30pm ( I asked them to arrive at2:00pm). I also confirmed that they were amendable to getting the scans done and that it was ok forthe imaging to be done after she starts radiation. Adriana tells me she will call [facility] to get the imagining scheduled. ----- Message from Ann James MD sent at 07/06/2023 12:39 PM EDT ----- Marisel Nance. The scans have been discussed w/patient multiple times, most recently 2 days ago by Zaida & patient amenable to scans & understanding xrt scheduled to start 07/10/23. Can you pleaseask Julia from [facility] to contact daughter Adriana @ about the scans? Mara Nance, can you please call daughter Adriana & speak w/her about her mother's confusion...ask if it is new & if Adriana is planning on accompanying patient on 07/10/23 for 1st day of xrt? Ann ----- Message ----- From: Marisel Mckeon Sent: 07/06/2023 9:11 AM EDT To: Janiya Bansal; Ann James MD; # Julia from [facility] called Kenyatta to try to schedule her for a couple of scans. Kenyatta said she did notwant to be scheduled for the scans because she did not know about them and are the scans necessary?Kenyatta would also like to talk with her doctor before she is scheduled. Julia also mentioned that Kenyatta is very confused about her appt on 07/10/23 and what does that appt entail. Kenyatta number is [phone] please let us know how to proceed. Thank you Marisel documented in this encounter Plan of Treatment Upcoming Encounters Date Type Department Care Team (Late st Contact Info) Description 02/08/2024 10:00 AM EST Office Visit Hematology/Oncology at [address] [phone] Keisha Rodriguez APRN [address] [place] [address] [place] [address] 02/08/2024 10:30 AM EST Infusion Hematology Oncology at [address] [phone] 02/13/2024 10:00 AM EST Office Visit General Surgery at [address] [phone] Leticia Lieberman MD [address] [place] [address] 11/06/2069 Hospital Encounter Outpatient [place] [address] Philly Zuluaga MD [facility] DR OBSTETRICS [place] [address] Scheduled Procedures Name Priority Associated Diagnoses Date/Ti me HYSTEROSCOPY, SURG W/ENDOMET RIAL SAMPLING, POLYPECTOMY (WRVU 4.17) Thickened endometrium documented as of this encounter Visit Diagnoses Not on filedocumented in this encounter Care Teams Software Applications Engineer Relationship Specialty Start Date End Date Dane Rick [address] [place] [phone] PCP - General Family Medicine 03/05/23 documented as of this encounter
--- OUTSIDE RECORDS SUMMARY | 2024-02-08 01:05 | XMS_ITS | Encounter Summary ---
[place] [address] Care Team Providers Care Skid Machine Operator Name Role Phone Dane Rick Primary Care Provider [phone] Reason for Visit * Reason Onset Date Comments Other 10/05/2023 ? Restart letroz ole Encounter Details Date Type Department Care Team (Late Contact Info) Description 10/05/2023 Telephone Hematology/Oncology at [address] [phone] Chichi Reed RN Other (? Restart letrozole) Social History Tobacco Use Types Packs/Day Years [...] Telephone Encounter - Chichi Reed RN - 10/05/2023 9:01 AM EDT Pt called and stated she stopped her letrozole and turkey tail. She has not noticed any changes. Per Dr. Stauffer she would like her to go back on the letrozole as this is not causing any of her symptoms. Pt can follow up with PCP if she should restart her turkey tail. Pt agrees with plan. documented in this encounter Plan of Treatment Upcoming Encounters Date Type Department Care Team (Late Contact Info) Description 02/08/2024 10:00 AM EST Office Visit Hematology/Oncology at [address] [phone] Keisha Rodriguez APRN [address] [place] [address] [place] [address] 02/08/2024 10:30 AM EST Infusion Hematology Oncology at [address] [phone] 02/13/2024 10:00 AM EST Office Visit General Surgery at [address] [phone] Leticia Lieberman MD [address] [place] [address] 11/06/2069 Hospital Encounter [place]patient [place] [address] Philly Zuluaga MD [facility] DR OBSTETRICS [place] [address] Scheduled Procedures Name Priority Associated Diagnoses Date/Ti me HYSTEROSCOPY, SURG W/ENDOMET RIAL SAMPLING, POLYPECTOMY (WRVU 4.17) Thickened endometrium documented as of this encounter Visit Diagnoses Not on filedocumented in this encounter Care Teams Skid Machine Operator Relationship Specialty Start Date End Date Dane Rick [address] [place] [phone] PCP - General Family Medicine 03/05/23 documented as of this encounter
--- OUTSIDE RECORDS SUMMARY | 2024-02-08 01:05 | XMS_ITS | Encounter Summary ---
[place] [address] Care Team Providers Care Wildlife Protector Name Role Phone Dane Rick Primary Care Provider [phone] Encounter Details Date Type Department Care Team (Latest Contact Info) Description 09/25/2023 Travel Social History Tobacco Use Types Packs/Day [...] 10:00 AM EST Office Visit Hematology/Oncology at [address] [phone] Keisha Rodriguez APRN [address] [place] [address] [place] [address] 02/08/2024 10:30 AM EST Infusion Hematology Oncology at [address] [phone] 02/13/2024 10:00 AM EST Office Visit General Surgery at [address] [phone] Leticia Lieberman MD [address] [place] [address] 11/06/2069 Hospital Encounter [place]patient [place] [address] Philly Zuluaga MD [facility] DR OBSTETRICS [place] [address] Scheduled Procedures Name Priority Associated Diagnoses Date/Ti me HYSTEROSCOPY, SURG W/ENDOMET RIAL SAMPLING, POLYPECTOMY (WRVU 4.17) Thickened endometrium documented as of this encounter Visit Diagnoses Not on filedocumented in this encounter Care Teams Wildlife Protector Relationship Specialty Start Date End Date Dane Rick [address] [place] [phone] PCP - General Family Medicine 03/05/23 documented as of this encounter
--- OUTSIDE RECORDS SUMMARY | 2024-02-08 01:05 | XMS_ITS | Encounter Summary ---
Author Organization [facility] [place] [address] Care Team Providers Care Image Processing Engineer Name Role Phone Dane Rick Primary Care Provider [phone] Encounter Details Date Type Department Care Team (Late st Contact Info) Description 09/13/2023 Telephone Hematology/Oncology at [address] [phone] Nupur Paul Social History Tobacco Use Types [...] * Telephone Encounter - Nupur Garcia - 09/13/2023 10:00 AM EDT I checked in with Kenyatta this morning. She was originally scheduled for a dexa scan at [facility] on 08/09 in coordination with her radiation treatments. At that point in time, she was having severe difficulty getting lined up for treatment and ultimately canceled her radiation treatments after having other health issues. The dexa scan was never rescheduled. I called Kenyatta this morning to see if she is willing to reschedule her dexa scan because she is still taking letrozole. At this point in time, Kenyatta is a little overwhelmed with medical appointments and wanted to plan to meet with Dr. Stauffer first before rescheduling the dexa scan. She feels that if she waits two weeks to meet with Dr. Stauffer, she may feel less overwhelmed and ready to reschedule the dexa scan after the 09/24 visit. Note sent to care team documented in this encounter Plan of Treatment Upcoming Encounters Date Type Department Care Team (Late st Contact Info) Description 02/08/2024 10:00 AM EST Office Visit Hematology/Oncology at [address] [phone] Keisha Rodriguez APRN [address] [place] [address] DR MEDICAL ONCOLOGY [place], [place] [phone] 02/08/2024 10:30 AM EST Infusion Hematology Oncology at [address] [phone] 02/13/2024 10:00 AM EST Office Visit General Surgery at [address] [phone] Leticia Lieberman MD [address] [place] [address] 11/06/2069 Hospital Encounter [place] [address] Philly Zuluaga MD [facility] [place] [address] Scheduled Procedures Name Priority Associated Diagnoses Date/Ti me HYSTEROSCOPY, SURG W/ENDOMET RIAL SAMPLING, POLYPECTOMY (WRVU 4.17) Thickened endometrium documented as of this encounter Visit Diagnoses Not on filedocumented in this encounter Care Teams Image Processing Engineer Relationship Specialty Start Date End Date Dane Rick [address] [place] [phone] PCP - General Family Medicine 03/05/23 documented as of this encounter
--- OUTSIDE RECORDS SUMMARY | 2024-02-08 01:05 | XMS_ITS | Encounter Summary ---
Author Organization [facility] Address [facility] [address] Care Team Providers Care Cyber Reverse Engineer Name Role Phone Dane Rick Primary Care Provider [phone] Encounter Details Date Type Department Care Team (Late Contact Info) Description 06/19/2023 10:35 PM EDT Ancillary Procedure Radiology Library at [facility] [place] [address] Ann James MD [facility] [place] [address] Social History Tobacco Use Types Packs/Day Years [...] 10:00 AM EST Office Visit Hematology/Oncology at [address] [phone] Keisha Rodriguez APRN [address] [place] [address] DR MEDICAL ONCOLOGY [place], [place] [phone] 02/08/2024 10:30 AM EST Infusion Hematology Oncology at [address] [phone] 02/13/2024 10:00 AM EST Office Visit General Surgery at [address] [phone] Leticia Lieberman MD [address] [place] [address] [place] [address] 11/06/2069 Hospital Encounter Outpatient Surgery Center [facility] [place] [address] Philly Zuluaga MD [facility] DR OBST[place] [address] Scheduled Procedures Name Priority Associated Diagnoses Date/Ti me HYSTEROSCOPY, SURG W/ENDOMET RIAL SAMPLING, POLYPECTOMY (WRVU 4.17) Thickened endometrium documented as of this encounter Procedures Procedure Name Priority Date/Time Associated Diagnosis Comments FILM LIBRARY STORAGE ONLY NUCLEAR MEDICINE Routine 06/19/2023 10:34 PM EDT documented in this encounter Results * Film Library- Storage Only nuclear medicine (06/19/2023 10:34 PM EDT) Narrative [facility] - 06/19/2023 10:34 PM EDT This exam is auto-finalizing. It's purpose is for storage only. Ann James MD G FILM LIBRARY ORD ERABLES Performing Organization Address City/State/[facility] Co de Phone Number [place], [place] documented in this encounter Visit Diagnoses Not on filedocumented in this encounter Care Teams Cyber Reverse Engineer Relationship Specialty Start Date End Date Dane Rick [address] [place] [phone] PCP - General Family Medicine 03/05/23 documented as of this encounter
--- OUTSIDE RECORDS SUMMARY | 2024-02-08 01:05 | XMS_ITS | Encounter Summary ---
[place] [address] Care Team Providers Care Quarter Doper Name Role Phone Dane Rick Primary Care Provider [phone] Encounter Details Date Type Department Care Team (Latest Contact Info) Description 07/10/2023 Travel Social History Tobacco Use Types Packs/Day [...] 10:00 AM EST Office Visit Hematology/Oncology at [address] [phone] Keisha Rodriguez APRN [address] [place] [address] [place] [address] 02/08/2024 10:30 AM EST Infusion Hematology Oncology at [address] [phone] 02/13/2024 10:00 AM EST Office Visit General Surgery at [address] [phone] Leticia Lieberman MD [address] [place] [address] 11/06/2069 Hospital Encounter Outpatient [place] [address] Philly Zuluaga MD [facility] DR OBSTETRICS [place] [address] Scheduled Procedures Name Priority Associated Diagnoses Date/Ti me HYSTEROSCOPY, SURG W/ENDOMET RIAL SAMPLING, POLYPECTOMY (WRVU 4.17) Thickened endometrium documented as of this encounter Visit Diagnoses Not on filedocumented in this encounter Care Teams Quarter Doper Relationship Specialty Start Date End Date Dane Rick [address] [place] [phone] PCP - General Family Medicine 03/05/23 documented as of this encounter
--- OUTSIDE RECORDS SUMMARY | 2024-02-08 01:05 | XMS_ITS | Encounter Summary ---
[place] [address] Care Team Providers Care Plaster Mechanic Name Role Phone Dane Rick Primary Care Provider [phone] Encounter Details Date Type Department Care Team (Late st Contact Info) Description 07/04/2023 Telephone Radiation Oncology at [address] [phone] Zaida Jansen RN Social History Tobacco Use [...] Telephone Encounter - Zaida Jansen RN - 07/04/2023 5:52 PM EDT Background: Telephone call returned to patient to discuss her questions regarding rationale for ordered tests, MRI, Pelvic ultrasound and Esophagram and their relation to symptoms and findings on 03/02/2023 CT c/a/p. Upon discussion she was able to link why they were ordered. Discussed her xrt start date/time for 07/10/23 and otv planned for that day following treatment. While she would like to start sooner she does not want to be on RT 2 on 07/08 due to eclipse traffic. All of her current questions were answered and she states that if she has any further she will discuss when here in clinic next week. documented in this encounter Plan of Treatment Upcoming Encounters Date Type Department Care Team (Late st Contact Info) Description 02/08/2024 10:00 AM EST Office Visit Hematology/Oncology at [address] [phone] Keisha Rodriguez APRN [address] [place] [address] [place] [address] 02/08/2024 10:30 AM EST Infusion Hematology Oncology at [address] [phone] 02/13/2024 10:00 AM EST Office Visit General Surgery at [address] [phone] Leticia Lieberman MD [address] [place] [address] 11/06/2069 Hospital Encounter [place] [address] Philly Zuluaga MD [facility] OBSTETRICS [place] [address] Scheduled Procedures Name Priority Associated Diagnoses Date/Ti me HYSTEROSCOPY, SURG W/ENDOMET RIAL SAMPLING, POLYPECTOMY (WRVU 4.17) Thickened endometrium documented as of this encounter Visit Diagnoses Not on filedocumented in this encounter Care Teams Plaster Mechanic Relationship Specialty Start Date End Date Dane iRck [address] [place] [phone] PCP - General Family Medicine 03/05/23 documented as of this encounter
--- OUTSIDE RECORDS SUMMARY | 2024-02-08 01:05 | XMS_ITS | Encounter Summary ---
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 [facility] nomogram computes 69-81% probability involvement sentinel lymph node. Oncotype DX 17. CURRENT TREATMENT DOSE: 7.90 Gy R supraclav, R axilla, R internal mammary chain, R breast ANTICIPATED TOTAL DOSE: 42.56 Gy R supraclav, R axilla, R internal mammary chain, R breast; 52.56 Gy lumpectomy bed Current # of xrt received: 3 R supraclav, R axilla, R internal mammary chain, R breast Anticipated total # of xrt txs: 16 R supraclav, R axilla, R internal mammary chain, R breast; 20 lumpectomy bed Evaluation of port verification films: Approved. For details, see electronic film record in [email or web address] System. Changes in Medical Condition: Seen in ER ([facility] [place]) yesterday for 4 days of worsening weakness,lightheadedness fatigue, L neck & shoulder pain. Labs show elevated inflammatory markers with CRP 71, white count normal, mild anemia, negative troponin, elevated LFTs, unremarkable urine. CT abdomen pelvis without any acute abnormality. Chest x-ray without any acute abnormality. BP noted to be hypertensive & she received 1 dose of clonidine with some improvement in her blood pressure, and then improved to 160s, systolically. Her symptoms were attributed to xrt. She is feeling a little better today, but still w/considerable fatigue. Accompanied by daughter. Pain?: L shoulder/arm discomfort. Your Medications Accurate as of August 14, 2023 11:18 AM. If you have any questions, ask your nurse or doctor. Continued medications, unchanged Dose Details aspirin EC 81 mg EC (DR) tablet Take 81 mg by mouth daily. 81 mg Refills: 0 Ergocalciferol (Vitamin D2) 10 mcg (400 unit) Tablet Take 1 tablet by mouth. 1 tablet Refills: 0 furosemide 20 mg tablet Commonly known as: Lasix TAKE 2 TABLETS BY MOUTH ONCE DAILY IN THE MORNING AND 1 IN THE AFTERNOON Refills: 0 letrozole 2.5 mg tablet Commonly known as: Femara Take 1 tablet by mouth daily. 2.5 mg Quantity: 90 tablet Refills: 3 LORazepam 0.5 mg tablet Commonly known as: Ativan Take 0.5 mg by mouth 3 times daily as needed for Anxiety. 0.5 mg Refills: 0 losartan 100 mg tablet Commonly known as: Cozaar Take 100 mg by mouth Daily. 100 mg Refills: 0 MAGNESIUM GLUCONATE ORAL Take 1 tablet by mouth. 1 tablet Refills: 0 REMEDY PHYTOPLEX MOISTURIZER TOP Apply topically. Phytoplex Remedy Moisturizer: Apply to area of radiation twice a day but no less than 2 hours before a treatment. Refills: 0 UNABLE TO FIND Take by mouth. [place] Tail Refills: 0 Physical Exam: BP 145/51 (Patient Position: Sitting) Pulse 59 Temp 36.9 ??C (98.4 ??F) (Temporal) Resp 16 SpO2 100% A&Ox3, NAD. Amb slow but stable. Labs: 08/13/23 C-Reactive Protein(!): 71.3 08/13/23 Alk P 166 (38-126) 08/13/23 AST 64 (15-46) 08/13/23 ALT 231 (<35) 08/13/23 Bili, T 2.1 (<1.4) 08/13/23 Calcium 10.8 (8.5-10.5) Imagin03/02/23 CT c/a/p: Lobulated R breast mass. A few subcm R axillary lymph nodes without fatty hilum, suggestive of possible pathologic met spread. Stable thyroid nodule. Moderate circumferential wall thickening of mid esophagus & esophagram or endoscopy & GI consult recommended for further eval. Thickened endometrial stripe & pelvic US recommended for further eval. 05/28/23 Plain xrays L shoulder & C spine: Multilevel degenerative disc dz. 06/19/23 Bone scan: Increased uptake T8 & L spine. Review of images shows no increased uptake inL humerus. 06/26/23 Dx'ic Rad Interp Ctsim: Mild mosaic pattern of the lungs consistent with some air trapping. Severe coronary artery atherosclerotic calcification. 07/10/23 Dx'ic Rad Interp Ctsim: Limited CT for radiation planning. Postoperative changes in the right breast with decrease in size of right breast seroma. Stable 3.5 cm hypodense left thyroid lobe nodule displacing trachea to R w/minimal associated luminal narrowing is not characterized and would be best evaluated with dedicated thyroid ultrasound. Severe coronary artery calcification. Moderate calcification at the aortic valve. Qualitative osteopenia and discogenic disease in the spine. 07/20/23 Ba S for eval esophageal thickening seen on 03/02/23 CT: Tertiary contractions. Mild KSIHA. 07/20/23 transabd & transvag pelvis US for eval thickened endometrium seen on 03/02/23 CT: Abnormally thickened endometrium. 07/20/23 MRI T & L spine for eval increased uptake on bone scan: Degenerative changes. Procedures: 08/03/23 upper endoscopy: A non-obstructing Schatzki ring was found at the gastroesophageal junction. This was biopsied with a cold jumbo forceps for histology in four quadrants for disruption. Multiple small erosions with no bleeding and no stigmata of recent bleeding were found at the incisura and in the gastric antrum. Biopsies were taken with a cold forceps for histology. A medium non-bleeding diverticulum was found in the second portion of the duodenum. Rec to consider acid suppressing med such as omeprazole/pantoprazole to help gastric erosions heal. If bxs pos for H. Pylori, tx w/quadruple tx (PAMC or PBMT regimen) & confirm eradication w/1 month post-tx stool antigen. Path: A - Schatzki's Ring biopsies, Squamocolumnar junctional mucosa with intestinal metaplasia, negative for dysplasia. B - Gastric biopsies; r/o H. Pylori, gastric erosions noted on exam, biopsy (Multiple): - Antrum-type mucosa with mild reactive gastropathy. Performance Status: KPS 90% Response to xrt: As expected. Irradiation Related Symptoms: Early in course of xrt for fatigue. Treatment for Symptom Control: Remedy cream. Pain Management: Not needed. Recommendation on Continuing Course of xrt: Explained to her that she has abnormal liver tests which is not from xrt & that I would be informing PCP. She will take rest of this week to rest &if she decides to continue w/xrt she will call. I spoke w/her about starting an antacid for erosions seen on upper endoscopy, ask PCP for input. I spoke w/her about undergoing thyroid US for further eval L thyroid nodule; will defer to PCP. documented in this encounter Plan of Treatment Upcoming Encounters Date Type Department Care Team (Late st Contact Info) Description 02/08/2024 10:00 AM EST Office Visit Hematology/Oncology at [address] [phone] Keisha Rodriguez APRN [address] [place] [address] [place] [address] 02/08/2024 10:30 AM EST Infusion Hematology Oncology at [address] [phone] 02/13/2024 10:00 AM EST Office Visit General Surgery at [address] [phone] Leticia Lieberman MD [address] [place] [address] 11/06/2069 Hospital Encounter [place] [address] Philly Zuluaga MD [facility] DR OBSTETRICS [place] [address] Scheduled Procedures Name Priority Associated Diagnoses Date/Ti me HYSTEROSCOPY, SURG W/ENDOMET RIAL SAMPLING, POLYPECTOMY (WRVU 4.17) Thickened endometrium documented as of this encounter Visit Diagnoses Diagnosis Malignant neoplasm of 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
--- OUTSIDE RECORDS SUMMARY | 2024-02-08 01:05 | XMS_ITS | Encounter Summary ---
[place] [address] Care Team Providers Care Mine Motor Operator Name Role Phone Dane Rick Primary Care Provider [phone] Encounter Details Date Type Department Care Team (Latest Contact Info) Description 08/06/2023 Travel Social History Tobacco Use Types Packs/Day [...] 10:00 AM EST Office Visit Hematology/Oncology at [address] [phone] Keisha Rodriguez APRN [address] [place] [address] [place] [address] 02/08/2024 10:30 AM EST Infusion Hematology Oncology at [address] [phone] 02/13/2024 10:00 AM EST Office Visit General Surgery at [address] [phone] Leticia Lieberman MD [address] [place] [address] 11/06/2069 Hospital Encounter Outpatient [place] [address] Philly Zuluaga MD [facility] DR OBSTETRICS [place] [address] Scheduled Procedures Name Priority Associated Diagnoses Date/Ti me HYSTEROSCOPY, SURG W/ENDOMET RIAL SAMPLING, POLYPECTOMY (WRVU 4.17) Thickened endometrium documented as of this encounter Visit Diagnoses Not on filedocumented in this encounter Care Teams Mine Motor Operator Relationship Specialty Start Date End Date Dane Rick [address] [place] [phone] PCP - General Family Medicine 03/05/23 documented as of this encounter
--- OUTSIDE RECORDS SUMMARY | 2024-02-08 01:05 | XMS_ITS | Encounter Summary ---
Author Organization [facility] Address [facility] [place] [address] Care Team Providers Care Agronomy Instructor Name Role Phone Dane Rick Primary Care Provider [phone] Reason for Referral * Consultation (Routine) - Closed Specialty Diagnoses / Procedures Referred By Franky ferreira Referred To Contact Obstetrics and Gynecology Diagnoses Endometrial thickening on ultrasound Target Trimmer Ann James MD [facility] [place] [address] [facility] Special Needs Tutor [address] [place] [address] Referral ID Status Reason Start Date Expiration Date V isits Requested Visits Authorized [id number] Closed Consult, Test & Treat 07/24/2023 07/23/2024 1 1 Reason for Visit * Reason Comments Follow-up Encounter Details Date Type Department Care Team (Late st Contact Info) Description 07/24/2023 1:30 PM EDT Office Visit Radiation Oncology at [address] [phone] Ann James MD [facility] [place] [address] Endometrial thickening on ultrasound; Malignant neoplasm of lower-outer quadrant of right [...] this encounter Patient Instructions * Patient Instructions* Ann James MD - 07/24/2023 1:30 PM EDT If you decide to proceed with radiotherapy, call to inform staff. Someone will call you to schedule appointment with education diagnostician @ [facility] for evaluation of endometrial thickening. Someone will call you to schedule appointment with rust proofer @ [facility] for evaluation of esophageal thickening. documented in this encounter Progress Notes * Ann James MD - 07/24/2023 1:30 PM EDT CC: Kenyatta requests further discussion about tx w/letrozole & xrt; also wants to know results of recent US, Ba swallow & MRIs. HPI: Kenyatta is an 82 y/o f w/breast ca, R, IDC, gr 2, ER+RI-, Her2-, multifocal, s/p lumpectomy, pT2(m) cN0. [facility] nomogram computes 69-81% probability involvement sentinel lymph node. Oncotype DX 17. 05/29/23 letrozole started, which she continues. 06/19/23 bone scan: Uptake in T & L spine. 07/20/23 Ba S for eval esophageal thickening seen on 03/02/23 CT: Tertiary contractions. Mild KISHA. 07/20/23 transabd & transvag pelvis US for eval thickened endometrium seen on 03/02/23 CT: Abnormally thickened endometrium. 07/20/23 MRI T & L spine for eval increased uptake on bone scan: Degenerative changes. S: No new c/o. Accompanied by daughter. Past Medical History: Diagnosis Date Benign essential HTN Breast cancer right CHF (congestive heart failure) CVA (cerebral vascular accident) Depression with anxiety Diverticular disease of colon Goiter Trigeminal neuralgia No lupus/scleroderma. Xrt to R upper back as a baby for hemangioma. CVA w/R hemiparesis & R hemiplegia Htn ABDOULAYE CAD, s/p drug eluting stent LAD 2013 Multinodular nontoxic goiter Past Surgical History: Procedure Laterality Date MASTECTOMY, PARTIAL Right 04/16/2023 ROTATOR CUFF REPAIR Right Physical Exam Constitutional: General: She is not in acute distress. HENT: Head: Normocephalic. Eyes: General: No scleral icterus. Right eye: No discharge. Left eye: No discharge. Extraocular Movements: Extraocular movements intact. Conjunctiva/sclera: Conjunctivae normal. Pulmonary: Effort: Pulmonary effort is normal. No respiratory distress. Breath sounds: No stridor. Musculoskeletal: Cervical back: Neck supple. Neurological: Mental Status: She is alert and oriented to person, place, and time. Coordination: Coordination normal. Gait: Gait normal. Psychiatric: Mood and Affect: Mood normal. Behavior: Behavior normal. Thought Content: Thought content normal. Judgment: Judgment normal. A/P: Result of Ba S, pelvic US & MRI T & L spine discussed w/her & recommend proceedingw/Gastroenterology consult for eval esophageal thickening & tertiary contractions & Target Trimmer consult for eval endometrial thickening. Discussed proceeding w/xrt. She has concerns regarding time elapse since lumpectomy & Dr. Stauffer reassured her that letrozole has been treating the breast cancer since surgery. She had concerns about possible side effects/organ damage from xrt & possible side effects wereagain reviewed w/her & she was informed that she can stop xrt whenever she wants. If she decides to proceed w/xrt she will call to schedule start date. We discussed that beam films will be taken on the 1st day of xrt & depending on time involved in filming, it is possible thatshe may not start xrt until the following work day. I certify spending at least 20 mins in providing care to this patient today as reflected by the following activities: - review of patient's medical record in the chart, including interpretation of imaging, laboratory and pathologic studies referenced above - documenting the outcome of today's visit as above documented in this encounter Plan of Treatment Upcoming Encounters Date Type Department Care Team (Late st Contact Info) Description 02/08/2024 10:00 AM EST Office Visit Hematology/Oncology at [address] [phone] Keisha Rodriguez APRN [address] [place] [address] [place] [address] 02/08/2024 10:30 AM EST Infusion Hematology Oncology at [address] [phone] 02/13/2024 10:00 AM EST Office Visit General Surgery at [address] [phone] Leticia Lieberman MD [address] [place] [address] 11/06/2069 Hospital Encounter [place]patient [place] [address] Philly Zuluaga MD [facility] DR OBSTETRICS [place] [address] Scheduled Procedures Name Priority Associated Diagnoses Date/Ti me HYSTEROSCOPY, SURG W/ENDOMET RIAL SAMPLING, POLYPECTOMY (WRVU 4.17) Thickened endometrium Scheduled Referrals Name Type Priority Associated Diagnoses Orde r Schedule Referral to Ob-Target Trimmer Outpatient Referral Routine Endometrial thickening on ultrasound Ordered: 07/24/2023 documented as of this encounter Visit Diagnoses Diagnosis Endometrial thickening on ultrasound Malignant neoplasm of lower-outer quadrant of right breast of female, estrogen receptor positive documented in this encounter Care Teams Agronomy Instructor Relationship Specialty Start Date End Date Dane Rick [address] [place] [phone] PCP - General Family Medicine 03/05/23 documented as of this encounter
--- OUTSIDE RECORDS SUMMARY | 2024-02-08 01:05 | XMS_ITS | Encounter Summary ---
[place] [address] Care Team Providers Care Psychiatric Registered Nurse Name Role Phone Dane Rick Primary Care Provider [phone] Encounter Details Date Type Department Care Team (Latest Contact Info) Description 06/26/2023 Travel Social History Tobacco Use Types Packs/Day [...] 10:00 AM EST Office Visit Hematology/Oncology at [address] [phone] Keisha Rodriguez APRN [address] [place] [address] [place] [address] 02/08/2024 10:30 AM EST Infusion Hematology Oncology at [address] [phone] 02/13/2024 10:00 AM EST Office Visit General Surgery at [address] [phone] Leticia Lieberman MD [address] [place] [address] 11/06/2069 Hospital Encounter Outpatient [place] [address] Philly Zuluaga MD [facility] DR OBSTET[place]ICS [place] [address] Scheduled Procedures Name Priority Associated Diagnoses Date/Ti me HYSTEROSCOPY, SURG W/ENDOMET RIAL SAMPLING, POLYPECTOMY (WRVU 4.17) Thickened endometrium documented as of this encounter Visit Diagnoses Not on filedocumented in this encounter Care Teams Psychiatric Registered Nurse Relationship Specialty Start Date End Date Dane Rick [address] [place] [phone] PCP - General Family Medicine 03/05/23 documented as of this encounter
--- OUTSIDE RECORDS SUMMARY | 2024-02-08 01:05 | XMS_ITS | Encounter Summary ---
Author Organization [facility] [place] [address] Care Team Providers Care Improvement Coordinator Name Role Phone Dane Rick Primary Care Provider [phone] Encounter Details Date Type Department Care Team (Late Contact Info) Description 10/08/2023 9:00 PM EDT Ancillary Procedure Radiology Library at [facility] [place] [address] Dane Rick [address] [place] [phone] Social History Tobacco Use Types Packs/Day Years [...] 10:00 AM EST Office Visit Hematology/Oncology at [address] [phone] Keisha Rodriguez APRN [address] [place] [address] DR MEDICAL ONCOLOGY [place], [place] [address] 02/08/2024 10:30 AM EST Infusion Hematology Oncology at [address] [phone] 02/13/2024 10:00 AM EST Office Visit General Surgery at [address] [phone] Leticia Lieberman MD [address] [place] [address] [place] [address] 11/06/2069 Hospital Encounter Outpatient [facility] [place] [address] Philly Zuluaga MD [facility] DR OBSTETRICS [place] [address] Scheduled Procedures Name Priority Associated Diagnoses Date/Ti me HYSTEROSCOPY, SURG W/ENDOMET RIAL SAMPLING, POLYPECTOMY (WRVU 4.17) Thickened endometrium documented as of this encounter Procedures Procedure Name Priority Date/Time Associated Diagnosis Comments FILM LIBRARY- STORAGE ONLY DXA IMAGES Routine 10/08/2023 8:56 PM EDT documented in this encounter Results * Film Library- Storage Only DXA Images (10/08/2023 8:56 PM EDT) Narrative [facility] - 10/08/2023 8:56 PM EDT This exam is auto-finalizing. It's purpose is for storage only. Dane Rick Shara FILM LIBRARY ORD ERABLES [place], [place] documented in this encounter Visit Diagnoses Not on filedocumented in this encounter Care Teams Improvement Coordinator Relationship Specialty Start Date End Date Dane Rick [address] [place] [phone] PCP - General Family Medicine 03/05/23 documented as of this encounter
--- OUTSIDE RECORDS SUMMARY | 2024-02-08 01:05 | XMS_ITS | Encounter Summary ---
Author Organization [facility] Address [facility] [place] [address] Care Team Providers Care Post Closing Specialist Name Role Phone Dane Rick Primary Care Provider [phone] Encounter Details Date Type Department Care Team (Late Contact Info) Description 07/20/2023 11:45 PM EDT Ancillary Procedure Radiology Library at [facility] [place] [address] Ann James MD [facility] [place] [address] Social History Tobacco Use Types Packs/Day Years [...] AM EST Office Visit Hematology/Oncology at [address] [phone] Keisha Rodriguez APRN [address] [place] [address] DR MEDICAL ONCOLOGY [place], [place] [address] 02/08/2024 10:30 AM EST Infusion Hematology Oncology at [address] [phone] 02/13/2024 10:00 AM EST Office Visit General Surgery at [address] [phone] Leticia Lieberman MD [address] [place] [address] [place] [address] 11/06/2069 Hospital Encounter Outpatient Surgery Center [facility] [place] [address] Philly Zuluaga MD [facility] DR OBSTETRICS [place] [address] Scheduled Procedures Name Priority Associated Diagnoses Date/Ti me HYSTEROSCOPY, SURG W/ENDOMET RIAL SAMPLING, POLYPECTOMY (WRVU 4.17) Thickened endometrium documented as of this encounter Procedures Procedure Name Priority Date/Time Associated Diagnosis Comments FILM LIBRARY STORAGE ONLY ULTRASOUND STUDY Routine 07/20/2023 11:35 PM EDT documented in this encounter Results * Film Library- Storage Only Ultrasound Study (07/20/2023 11:35 PM EDT) Narrative [facility] - 07/20/2023 11:35 PM EDT This exam is auto-finalizing. It's purpose is for storage only. Ann James MD [facility] FILM LIBRARY ORD ERABLES Performing Organization Address City/State/[facility] Co de Phone Number [place], [place] documented in this encounter Visit Diagnoses Not on filedocumented in this encounter Care Teams Post Closing Specialist Relationship Specialty Start Date End Date Dane Rick [address] [place] [phone] PCP - General Family Medicine 03/05/23 documented as of this encounter
--- OUTSIDE RECORDS SUMMARY | 2024-02-08 01:05 | XMS_ITS | Encounter Summary ---
[place] [address] Care Team Providers Care Hand Filer Balance Wheel Name Role Phone Dane Rick Primary Care Provider [phone] Encounter Details Date Type Department Care Team (Latest Contact Info) Description 07/31/2023 Travel Social History Tobacco Use Types Packs/Day [...] AM EST Office Visit Hematology/Oncology at [address] [phone] Keisha Rodriguez APRN [address] [place] [address] [place] [address] 02/08/2024 10:30 AM EST Infusion Hematology Oncology at [address] [phone] 02/13/2024 10:00 AM EST Office Visit General Surgery at [address] [phone] Leticia Lieberman MD [address] [place] [address] 11/06/2069 Hospital Encounter Outpatient [place] [address] Philly Zuluaga MD [facility] DR OBSTETRICS [place] [address] Scheduled Procedures Name Priority Associated Diagnoses Date/Ti me HYSTEROSCOPY, SURG W/ENDOMET RIAL SAMPLING, POLYPECTOMY (WRVU 4.17) Thickened endometrium documented as of this encounter Visit Diagnoses Not on filedocumented in this encounter Care Teams Hand Filer Balance Wheel Relationship Specialty Start Date End Date Dane Rick [address] [place] [phone] PCP - General Family Medicine 03/05/23 documented as of this encounter
--- OUTSIDE RECORDS SUMMARY | 2024-02-08 01:05 | XMS_ITS | Encounter Summary ---
[place] [address] Care Team Providers Care Fairground Operator Name Role Phone Dane Rick Primary Care Provider [phone] Encounter Details Date Type Department Care Team (Latest Contact Info) Description 07/24/2023 Travel Social History Tobacco Use Types Packs/Day [...] AM EST Office Visit Hematology/Oncology at [address] [phone] Keisha Rodriguez APRN [address] [place] [address] [place] [address] 02/08/2024 10:30 AM EST Infusion Hematology Oncology at [address] [phone] 02/13/2024 10:00 AM EST Office Visit General Surgery at [address] [phone] Leticia Lieberman MD [address] [place] [phone] 11/06/2069 Hospital Encounter Outpatient [place] [address] Philly Zuluaga MD [facility] DR OBSTETRICS [place] [address] Scheduled Procedures Name Priority Associated Diagnoses Date/Ti me HYSTEROSCOPY, SURG W/ENDOMET RIAL SAMPLING, POLYPECTOMY (WRVU 4.17) Thickened endometrium documented as of this encounter Visit Diagnoses Not on filedocumented in this encounter Care Teams Fairground Operator Relationship Specialty Start Date End Date Dane Rick [address] [place] [phone] PCP - General Family Medicine 03/05/23 documented as of this encounter
--- OUTSIDE RECORDS SUMMARY | 2024-02-08 01:05 | XMS_ITS | Encounter Summary ---
Author Organization Formerly [facility] [place] [address] Care Team Providers Care Color Paste Mixing Supervisor Name Role Phone Dane Rick Primary Care Provider [phone] Encounter Details Date Type Department Care Team ([facility] st Contact Info) Description 08/03/2023 11:15 AM EDT - 08/03/2023 11:45 AM EDT Surgery [place] [phone] Héctor Allen MD [facility] [place] [address] EGD WITH BIOPSY (WRVU 2.39) Social History Tobacco Use Types Packs/Day Years [...] Sign Reading Time Taken Comments Blood Pressure 177/62 08/03/2023 11:40 AM EDT Pulse 57 08/03/2023 10:14 AM EDT Temperature 36.3 ??C (97.3 ??F) 08/03/2023 10:14 AM E DT Respiratory Rate 18 08/03/2023 11:40 AM EDT Oxygen Saturation 100% 08/03/2023 11:40 AM EDT Inhaled Oxygen Concentration - - Weight - - Height - - Body Mass Index - - documented in this encounter Discharge Instructions * Discharge Instructions* Antonette Eller RN - 08/03/2023 11:18 AM EDT Upper GI Endoscopy: What to Expect at Home Your Recovery You will be able to go home after your doctor or nurse checks to make sure you are not having any problems. You may have to stay overnight if you had treatment during the test. You may have a sore throat fora day or two after the test. This care sheet gives you a general idea about what to expect after the test. How can you care for yourself at home? Activity Rest when you feel tired. You can do your normal activities when it feels okay to do so. Diet Follow your doctor's directions for eating. Unless your doctor has told you not to, drink plenty of fluids. This helps to replace the fluids that were lost during the prep. Do not drink alcohol. Medicines Your doctor will tell you if and when you can restart your medicines. He or she will also give you instructions about taking any new medicines. If you take blood thinners, such as warfarin (Coumadin), clopidogrel (Plavix), or aspirin, be sure to talk to your doctor. He or she will tell you if and when to start taking those medicines again. Make sure that you understand exactly what your doctor wants you to do. If polyps were removed or a biopsy was done during the test, your doctor may tell you not to take aspirin or other anti-inflammatory medicines for a few days. These include ibuprofen (Advil, Motrin) and naproxen (Aleve). If you have a sore throat the day after the procedure, use an mrpp-jha-tlhzjmd spray to numb your throat. Sucking on throat lozenges and gargling with warm salt water may also help relieve your symptoms. Other instructions For your safety, do not drive or operate machinery until the medicine wears off and you can think clearly. Your doctor may tell you not to drive or operate machinery until the day after your test. Do not sign legal documents or make major decisions until the medicine wears off and you can think clearly. The anesthesia can make it hard for you to fully understand what you are agreeing to. Additional Information for Sedation Patients For patients who received sedation: You may have received medications before and/or during your procedure which effects your judgement and reaction time. Do not drive, operate machinery, drink alcoholic beverages or make important decisions for 24 hours. Be careful on stairs as you may be unsteady on your feet. You may eat a regular diet as tolerated. Do not smoke if you are alone. IV site: Slight redness or tenderness is normal, you can use a warm compress if you would like. If tenderness and/or redness increase or if foul drainage occurs, please contact your Doctor. Please call [phone] before 8pm Mon-Fri with problems, questions or concerns. If you call after 8pm or on weekends, call the Hospital at [phone] and ask to speak to the World Geography Teacher transmission repairer and the lamination machine operator will contact that person for you. When should you call for help? Call 911 anytime you think you may need emergency care. For example, call if: You passed out (lost consciousness). You pass maroon or bloody stools. You have trouble breathing. Call your doctor now or seek immediate medical care if: You have pain that does not get better after you take pain medicine. You are sick to your stomach or cannot drink fluids. You have new or worse belly pain. You have blood in your stools. You have a fever. You cannot pass stools or gas. Watch closely for changes in your health, and be sure to contact your doctor if you have any problems. Where can you learn more? [facility] View your After Visit Summary and more online at [email or web address] If you would like to provide feedback about your hospital experience, please call the Office of Patient and Family Relations at . If you have received this After Visit Summary in error, please immediately return it in person to the department, or notify the [facility] Privacy Office by calling toll free at between the hours of 8AM and 5PM to arrange for our retrieval of the documents at no cost to you. Content Version: 12.2 ?? 4314-8556 [employer]. Care instructions adapted under license by [facility]. If you have questions about a medical condition or this instruction, always ask your healthcare professional. [employer] disclaims any warranty or liability for your use of this information.Upper GI Endoscopy: What to Expect at Home Your Recovery You will be able to go home after your doctor or nurse checks to make sure you are not having any problems. You may have to stay overnight if you had treatment during the test. You may have a sore throat fora day or two after the test. This care sheet gives you a general idea about what to expect after the test. How can you care for yourself at home? Activity Rest when you feel tired. You can do your normal activities when it feels okay to do so. Diet Follow your doctor's directions for eating. Unless your doctor has told you not to, drink plenty of fluids. This helps to replace the fluids that were lost during the prep. Do not drink alcohol. Medicines Your doctor will tell you if and when you can restart your medicines. He or she will also give you instructions about taking any new medicines. If you take blood thinners, such as warfarin (Coumadin), clopidogrel (Plavix), or aspirin, be sure to talk to your doctor. He or she will tell you if and when to start taking those medicines again. Make sure that you understand exactly what your doctor wants you to do. If polyps were removed or a biopsy was done during the test, your doctor may tell you not to take aspirin or other anti-inflammatory medicines for a few days. These include ibuprofen (Advil, Motrin) and naproxen (Aleve). If you have a sore throat the day after the procedure, use an adwp-zai-hnjlsku spray to numb your throat. Sucking on throat lozenges and gargling with warm salt water may also help relieve your symptoms. Other instructions For your safety, do not drive or operate machinery until the medicine wears off and you can think clearly. Your doctor may tell you not to drive or operate machinery until the day after your test. Do not sign legal documents or make major decisions until the medicine wears off and you can think clearly. The anesthesia can make it hard for you to fully understand what you are agreeing to. Additional Information for Sedation Patients For patients who received sedation: You may have received medications before and/or during your procedure which effects your judgement and reaction time. Do not drive, operate machinery, drink alcoholic beverages or make important decisions for 24 hours. Be careful on stairs as you may be unsteady on your feet. You may eat a regular diet as tolerated. Do not smoke if you are alone. IV site: Slight redness or tenderness is normal, you can use a warm compress if you would like. If tenderness and/or redness increase or if foul drainage occurs, please contact your Doctor. Please call [phone] before 8pm Mon-Fri with problems, questions or concerns. If you call after 8pm or on weekends, call the Hospital at [phone] and ask to speak to the World Geography Teacher transmission repairer and the lamination machine operator will contact that person for you. When should you call for help? Call [phone] anytime you think you may need emergency care. For example, call if: You passed out (lost consciousness). You pass maroon or bloody stools. You have trouble breathing. Call your doctor now or seek immediate medical care if: You have pain that does not get better after you take pain medicine. You are sick to your stomach or cannot drink fluids. You have new or worse belly pain. You have blood in your stools. You have a fever. You cannot pass stools or gas. Watch closely for changes in your health, and be sure to contact your doctor if you have any problems. Where can you learn more? [facility] View your After Visit Summary and more online at [email or web address] If you would like to provide feedback about your hospital experience, please call the Office of Patient and Family Relations at . If you have received this After Visit Summary in error, please immediately return it in person to the department, or notify the [facility] Privacy Office by calling toll free at between the hours of 8AM and 5PM to arrange for our retrieval of the documents at no cost to you. Content Version: 12.2 ?? 6734-1378 [employer]. Care instructions adapted under license by [facility]. If you have questions about a medical condition or this instruction, always ask your healthcare professional. [employer] disclaims any warranty or liability for your use of this information. documented in this encounter Medications at Time of Discharge Medication Sig Dispensed Refills Start Date End Date emollient combination no.111 (REMEDY PHYTOPLEX MOISTURIZER TOP) Apply topically. Phytoplex Remedy Moisturizer: Apply to area of radiation twice a day but no less than 2 hours before a treatment. letrozole (Femara) 2.5 mg tablet Take 1 tablet by mouth daily. 90 tablet 3 05/29/2023 UNABLE TO FIND Take by mouth. Silvis Tail Ergocalciferol, Vitamin D2, 10 mcg (400 unit) Tablet Take 1 tablet by mouth. MAGNESIUM GLUCONATE ORAL Take 1 tablet by mouth. aspirin EC 81 mg EC (DR) tablet Take 81 mg by mouth daily. 09/19/2022 furosemide (Lasix) 20 mg tablet Take 20 mg by mouth 2 times daily. 09/19/2022 losartan (Cozaar) 100 mg tablet Take 100 mg by mouth Daily. 12/26/2022 documented as of this encounter H&P Notes * Héctor Allen MD - 08/03/2023 10:48 AM EDT Patient Name: Kenyatta Vizcaino Patient Age: 82 y.o. 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.351 Hypercalcemia E83.52 Hypercholesterolemia E78.00 Injury of head S09.90XA Invasive ductal carcinoma of right breast C50.911 Chronic pain of left knee M25.562, G89.29 Left shoulder pain M25.512 Nontoxic multinodular goiter E04.2 Obesity E66.9 ABDOULAYE (obstructive sleep apnea) G47.33 Thickened endometrium R93.89 TMJ derangement M26.69 CVA (cerebral vascular accident) I63.9 Trigeminal neuralgia G50.0 Unspecified rotator cuff tear or rupture of right shoulder, not specified as traumatic M75.101 Vertigo R42 EXAM: HEENT: Airway examined, oropharynx clear Mallampati Score: I (soft palate, uvula, fauces, tonsillar pillars visible) LUNGS: Clear to auscultation HEART: Regular rate and rhythm, normal S1, S2 ABDOMEN: Normal bowel sounds, soft, non tender, non distended, A/P Proceed with the planned endoscopic procedure. ASA 2 - Patient with mild systemic disease with no functional limitations Sedation Plan: anesthesia Risks and benefits of the procedure explained to the patient. Consent signed. documented in this encounter Plan of Treatment Upcoming Encounters Date Type Department Care Team (Late st Contact Info) Description 02/08/2024 10:00 AM EST Office Visit Hematology/Oncology at [address] [phone] Keisha Rodriguez [address] [place] [address] 02/08/2024 10:30 AM EST Infusion Hematology Oncology at [address] [phone] 02/13/2024 10:00 AM EST Office Visit General Surgery at [address] [phone] Leticia Lieberman MD [address] [place] [address] [place] [address] 11/06/2069 Hospital Encounter [place] [address] Philly Zuluaga MD [facility] OB[place] [address] Scheduled Procedures Name Priority Associated Diagnoses Date/Ti me HYSTEROSCOPY, SURG W/ENDOMET RIAL SAMPLING, POLYPECTOMY (WRVU 4.17) Thickened endometrium documented as of this encounter Procedures Procedure Name Priority Date/Time Associated Diagnosis Comments SPECIMEN TO PATHOLOGY Routine 08/03/2023 11:12 AM EDT SPECIMEN TO PATHOLOGY Routine 08/03/2023 11:12 AM EDT SURGICAL PATHOLOGY REPORT Routine 08/03/2023 11:04 AM EDT Upper Gi Endoscopy, Biopsy ([id number]) 08/03/2023 10:51 AM EDT EGD Sedation: Anesthesia TImeframe: within 6 Weeks -- C. Indication: Abnormal Imaging - circumferential thickening mid esophagus seen on 03/02/23 CT c/a/p UPPER GI ENDOSCOPY Routine 08/03/2023 10 :09 AM EDT documented in this encounter Results * Specimen to Pathology (08/03/2023 11:12 AM EDT) AP Specimen 08/03/2023 11:1 2 AM EDT 08/03/2023 11:12 AM EDT Narrative [facility] - 08/03/2023 11:12 AM EDT Specimen requisition ordered. ??Separate Pathology report to follow Héctor Allen MD PATHOLOGY/CYTOLOGY O DORIAN Performing Organization Address [facility] [place] [address] * Specimen to Pathology (08/03/2023 11:12 AM EDT) AP Specimen 08/03/2023 11:1 2 AM EDT 08/03/2023 11:12 AM EDT Narrative [facility] - 08/03/2023 11:12 AM EDT Specimen requisition ordered. ??Separate Pathology report to follow Héctor Allen MD PATHOLOGY/CYTOLOGY O RDSANDHYA Performing Organization Address [facility]/[place] [address] * Surgical Pathology Report (08/03/2023 11:04 AM EDT) Final Diagnosis [id number] ? Location: 4T; EA08; A The signing pathologist has (i) examined the relevant preparation(s) for the specimen(s) and (ii) rendered or confirmed the diagnosis(es). . ?Surgical Pathology DIAGNOSIS A - Schatzki's ring biopsies, biopsy (Multiple): - ??Squamocolumna r junctional mucosa with intestinal metaplasia, negative for dysplasia. B - Gastric biopsies; r/o H. Pylori, gastric erosions noted on exam, biopsy (Multiple): - ??Antrum-type mucosa with mild reactive gastropathy. Electronically signed by: ?Hanane MARCIAL, Kenny Verified: ??08/06/2023 14:37 ??Pathologist Performed at: ??-[facility] Dept. of Pathology, [place] [address] Inker: Ren Carranza MD, FCAP, ??CLIA Certificate: [id number] SPECIMEN(S) SUBMITTED A - Schatzki's ring biopsies, biopsy (Multiple) B - gastric biopsies; r/o H. Pylori, gastric erosions noted on exam, biopsy (Multiple) CLINICAL INFORMATION 82-year-old female with history of abnormal CT imaging SPECIMEN PROCESSING A - Labeled/Fixativ e: Schatzki ring biopsies, formalin. Quantity/Size: Three, ranging 0.2-0.5 cm. Tissue Description: Soft, red-pond tissues. Sections/Proces sing: Submitted in toto ??in 1 cassette labeled A1. B - Labeled/Fixativ e: Gastric biopsies rule out H. pylori, gastric erosions noted on exam, formalin. Quantity/Size: Two, 0.4 cm. Tissue Description: Soft, pond and pond-red tissues. Sections/Proces sing: Submitted in toto ??in 1 cassette labeled B1. ??shb 08/06/2023 2:37 PM EDT [facility] GI Biopsy 08/03/2023 11:0 4 AM EDT 08/03/2023 11:04 AM EDT GI Biopsy 08/03/2023 11:0 4 AM EDT 08/03/2023 11:04 AM EDT Héctor Allen MD PATHOLOGY/CYTOLOGY [facility] [place] [address] * UPPER GI ENDOSCOPY (08/03/2023 10:09 AM EDT) UPPER GI ENDOSCOPY [facility] Endoscopy ___ Procedure Date: 08/03/2023 10:09 AM ? Patient Name: Kenyatta Vizcaino ? Date of : 1940 ? Age: 82 ? Order #: [id number] ? Instrument Name: [id number] ? ___ Procedure: ? Upper GI endoscopy Indications: ? Abnormal CT of the GI tract Patient Profile: ? 82 yo F with abnormal CT imaging ? showing distal esophageal ? thickening presents for EGD. ? Intermittent dysphagia. Providers: ? Héctor Allen, Gillian Rutledge, ? RN, Maribeth Ma, Mendoza Oliva ? Moreira Referring MD: ?Dane Rick Medicines: ? See the Anesthesia note for ? documentation of the administered ? medications Complications: ? No immediate complications. ___ Procedure: ? Pre-Anesthesia Assessment: ? - Prior to the procedure, a History ? and Physical was performed, and ? patient medications and allergies ? were reviewed. The patient is ? competent. The risks and benefits ? of the procedure and the sedation ? options and risks were discussed ? with the patient. All questions ? were answered and informed consent ? was obtained. Patient ? identification and proposed ? procedure were verified by the ? physician, the nurse, the ? anesthesiologist, the noxious weeds and pest inspector ? and the it field technician in the ? pre-procedure area in the procedure ? room. Mental Status Examination: ? alert and oriented. Airway ? Examination: normal oropharyngeal ? airway and neck mobility. ? Respiratory Examination: clear to ? auscultation. CV Examination: ? normal. Prophylactic Antibiotics: ? The patient does not require ? prophylactic antibiotics. Prior ? Anticoagulants: The patient has ? taken no anticoagulant or ? antiplatelet agents. ASA Grade ? Assessment: II - A patient with ? mild systemic disease. After ? reviewing the risks and benefits, ? the patient was deemed in ? satisfactory condition to undergo ? the procedure. The anesthesia plan ? was to use monitored anesthesia ? care (MAC). Immediately prior to ? administration of medications, the ? patient was re-assessed for ? adequacy to receive sedatives. The ? heart rate, respiratory rate, ? oxygen saturations, blood pressure, ? adequacy of pulmonary ventilation, ? and response to care were monitored ? throughout the procedure. The ? physical status of the patient was ? re-assessed after the procedure. ? The procedure, indications, ? benefits, risks and alternatives ? were explained to the patient. ? Specifically discussed were ? potential complications including, ? but not limited to, bleeding, ? perforation, infection, missing a ? cancer, and adverse medication ? reactions. The Endoscope was ? introduced through the mouth, and ? advanced to the third part of ? duodenum The upper GI endoscopy was ? accomplished without difficulty. ? The patient tolerated the procedure ? well. ? Findings: ? A non-obstructing Schatzki ring was found at the ? gastroesophageal junction. This was biopsied with a ? cold jumbo forceps for histology in four quadrants ? for disruption. ? Multiple small erosions with no bleeding and no ? stigmata of recent bleeding were found at the ? incisura and in the gastric antrum. Biopsies were ? taken with a cold forceps for histology. ? A medium non-bleeding diverticulum was found in the ? second portion of the duodenum. ? Moderate Sedation: ? Not applicable - See Anesthesia documentation Impression: ?- Non-obstructing Schatzki ring. ? Biopsied. ? - Erosive gastropathy with no ? bleeding and no stigmata of recent ? bleeding. Biopsied. ? - Non-bleeding duodenal ? diverticulum. Recommendation: ?- Patient has a contact number ? available for emergencies. The ? signs and symptoms of potential ? delayed complications were ? discussed with the patient. Return ? to normal activities tomorrow. ? Written discharge instructions were ? provided to the patient. ? - Await pathology results. ? - Talk with referring provider ? about taking an acid suppressing ? medication such as omeprazole or ? pantoprazole to help gastric ? erosions heal. ? - If biopsies are positive for ? Helicobacter pylori, please treat ? with quadruple therapy (PAMC or ? PBMT regimen) and confirm ? eradication with 1-month ? post-treatment stool antigen ? testing. ? Attending Participation: ? I personally performed the entire procedure. ? Héctor Allen, 08/03/2023 11:16:24 AM Number of Addenda: 0 Note Initiated On: 08/03/2023 10:09 AM PROVATION 08/03/2023 10:0 9 AM EDT Dane Rick GENERAL SURGICAL ORD ERABLES PROVATION documented in this encounter Visit Diagnoses Not [...] 10:30 AM EDT 100 mL/hr 100 mL/hr documented in this encounter Active and Recently Administered Medications Times are shown in EDT. Continuous Medication Order 08/01/2023 08/02/2023 08/03/2023 lactated ringers infusion (CANCELED) 100 mL/hr, Intravenous, CONTINUOUS, Starting on Sun08/03/23 at 1030, Until Sun08/03/23 at 1151, Endoscopy (Day of Procedure) 1030 (New Bag - Prov ider: Antonette Eller RN)1049 (Paused - Provider: Barb Rush MD - Comment: Switch to gravity)1050 (Restarted - Provider: Brab Rush MD)1110 (Stopped - Provider: Barb Rush MD) documented in this encounter Care Teams Color Paste Mixing Supervisor Relationship Specialty Start Date End Date Rick, Dane [address] [place] [phone] PCP - General Family Medicine 03/05/23 documented as of this encounter
--- OUTSIDE RECORDS SUMMARY | 2024-02-08 01:05 | XMS_ITS | Encounter Summary ---
Author Organization [facility] Address [facility] [place] [address] Care Team Providers Care Shroudman Name Role Phone Dane Rick Primary Care Provider [phone] Reason for Visit * Reason Comments On Treatment Visit Encounter Details Date Type Department Care Team (Late st Contact Info) Description 08/07/2023 11:30 AM EDT Office Visit Radiation Oncology at [address] [phone] Ann James MD [facility] [place] [address] Malignant neoplasm of lower-outer quadrant of right [...] Sign Reading Time Taken Comments Blood Pressure 192/68 08/07/2023 12:43 PM EDT Pulse 58 08/07/2023 12:43 PM EDT Temperature 36.8 ??C (98.2 ??F) 08/07/2023 12:43 PM E DT Respiratory Rate 18 08/07/2023 12:43 PM EDT Oxygen Saturation 100% 08/07/2023 12:43 PM EDT Inhaled Oxygen Concentration - - Weight - - Height - - Body Mass Index - - documented in this encounter Progress Notes * Ann James MD - 08/07/2023 11:30 AM EDT Images from the original note were not included. 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 [facility] nomogram computes 69-81% probability involvement sentinel lymph node. Oncotype DX 17. CURRENT TREATMENT DOSE: 5.32 Gy R supraclav, R axilla, R internal mammary chain, R breast ANTICIPATED TOTAL DOSE: 42.56 Gy R supraclav, R axilla, R internal mammary chain, R breast; 52.56 Gy lumpectomy bed Current # of xrt received: 2 R supraclav, R axilla, R internal mammary chain, R breast Anticipated total # of xrt txs: 16 R supraclav, R axilla, R internal mammary chain, R breast; 20 lumpectomy bed Evaluation of port verification films: Approved. For details, see electronic film record in [employer] System. Changes in Medical Condition: None. Accompanied by daughter. Pain?: L shoulder/arm discomfort. Your Medications Accurate as of August 07, 2023 11:59 PM. If you have any questions, ask your [...] 0 UNABLE TO FIND Take by mouth. [place] Tail Refills: 0 Physical Exam: BP 192/68 (Patient Position: Sitting) Pulse 58 Temp 36.8 ??C (98.2 ??F) (Temporal) Resp 18 SpO2 100% A&Ox3, NAD. Amb stable. Imagin03/02/23 CT c/a/p: Lobulated R breast mass. [...] to xrt: As expected. Irradiation Related Symptoms: None. Treatment for Symptom Control: Remedy cream. Pain Management: Not needed. Recommendation on Continuing Course of xrt: Continue. Speak w/her about starting an antacid, ask PCP for input. Speak w/her about undergoing thyroid US for further eval L thyroid nodule. documented in this encounter Plan of Treatment Upcoming Encounters Date Type Department Care Team (Late st Contact Info) Description 02/08/2024 10:00 AM EST Office Visit Hematology/Oncology at [address] [phone] Keisha Rodriguez APRN [address] [place] [address] [place] [address] 02/08/2024 10:30 AM EST Infusion Hematology Oncology at [address] [phone] 02/13/2024 10:00 AM EST Office Visit General Surgery at [address] [phone] Leticia Lieberman MD [address] [place] [address] [place] [address] 11/06/2069 Hospital Encounter Outpatient [place] [address] Philly Zuluaga MD [facility] DR OBSTETRICS [place] [address] Scheduled Procedures Name Priority Associated Diagnoses Date/Ti me HYSTEROSCOPY, SURG W/ENDOMET RIAL SAMPLING, POLYPECTOMY (WRVU 4.17) Thickened endometrium documented as of this encounter Visit Diagnoses Diagnosis Malignant neoplasm of lower-outer quadrant of right breast of female, estrogen receptor positive documented in this encounter Care Teams Shroudman Relationship Specialty Start Date End Date Dane Rick [address] [place] [phone] PCP - General Family Medicine 03/05/23 documented as of this encounter
--- OUTSIDE RECORDS SUMMARY | 2024-02-08 01:05 | XMS_ITS | Encounter Summary ---
Author Organization [facility] [place] [address] Care Team Providers Care Senior Sharepoint Developer Name Role Phone Dane Rick Primary Care Provider [phone] Encounter Details Date Type Department Care Team (Late st Contact Info) Description 09/25/2023 3:30 PM EDT Office Visit Hematology/Oncology at [address] [phone] Roasnne Stauffer MD Perreault, Alexandra H, APRN [address] [place] [address] MEDICAL ONCOLOGY [place], [place] [id number] Stage II breast cancer in female; Aromatase [...] Sign Reading Time Taken Comments Blood Pressure 157/49 09/25/2023 3:19 PM EDT Pulse 60 09/25/2023 3:19 PM EDT Temperature 36.4 ??C (97.6 ??F) 09/25/2023 3 :19 PM EDT Respiratory Rate 18 09/25/2023 3:19 PM EDT Oxygen Saturation 100% 09/25/2023 3:1 9 PM EDT Inhaled Oxygen Concentration - - Weight 64 kg (141 lb) 09/25/2023 3:19 PM EDT patient reported weight Height 149.9 cm (4' 11) 09/25/2023 3:1 9 PM EDT Body Mass Index 28.48 09/25/2023 3:19 PM EDT documented in this encounter Progress Notes * Rosanne Stauffer MD - 09/25/2023 3:30 PM EDT Images from the original note were not included. 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 breast cancer Breast cancer pathology & staging: Clinical stage: cT2 cN1 Pathological stage: pT2 pN0 Pathology: Grade 2 IDC Karen status: Right SLNB: 0/1 Receptor status: ER positive [>90%], MO negative, HER2 negative [0] Oncotype DX RS: [...] revealed grade 2 IDC, ER positive [>90%], MO negative, HER2 negative [0] 03/02/2023: Staging imaging: [...] RS: 17 05[facility]28[facility]2023[facility] adjuvant[facility], while planning for [...] right breast 08/13/2023: ED visit for at [facility] [facility]/[place]: For worsening fatigue and weakness with [...] trigeminal neuralgia and stage II ER positive MO negative HER2 negative right breast cancer s/p right partial mastectomy on 04/16/2023; Oncotype Dx RS on 05/16/2023 = 17; started letrozole on 05/28/2023, decided to forego adjuvant radiation therapy due to concerns regarding side effects,who presents today for scheduled follow-up. # Stage II ER positive MO negative HER2 negative right breast cancer - [...] as worsening weakness of bilateral proximal thighs #Fatigue: Worsening fatigue Given that she is currently on turkey tail as well as adjuvant letrozole, we discussed that these can be side effects of letrozole therefore recommended 1 week drug holiday to monitor for improvementof side effects given that she will also hold the chart detail at this time Discussed my concerns that turkey tail may have contributed to elevated LFTs noted on her labs on 08/13/2023 We discussed that Kenyatta will need to follow-up with Dr. Rick, PCP in regards to repeat LFTs to ensure that her LFTs have normalized/trended down Kenyatta will call us next week to relay whether her symptoms have resolved with the drug holiday versus not. We discussed that if her arthralgia and myalgia have improved and whether they are stable,I would recommend continuing with letrozole in 1 week and closely monitoring after Kenyatta and Adriana are in agreement Monitoring compliance/adherence: No missed doses of letrozole Bone health: -DEXA scan: Discussed DEXA scan and why assessing baseline BMD while on aromatase inhibitor is important, will reschedule DEXA scan -Recommended continuing with vitamin D - will plan to discuss adjuvant bisphosphonates based on DEXA scan results Recommendations/Plan: I have recommended the following: -Continue with letrozole after 1 week break, and monitoring for resolution of lower extremity myalgia -Will follow DEXA scan results -Continue with vitamin D - Kenyatta will contact Dr. Lieberman for recommendations in regards to second opinion for radiation oncology Follow-up: MD/UNDERTAKER ASSISTANT follow-up in 6 weeks or sooner if there are concerns Interval History: #Breast concerns: No current breast concerns Monitoring treatment related side effects #Arthralgia: Affecting knees, shoulders, and ankles -worsening from prior #Hot flashes: None #Myalgia: Concerned about muscle weakness especially in proximal thighs #Fatigue: Worsening fatigue #Neuropathy: No tingling or numbness #History of cardiac disease: h/o CAD control with goal-directed therapy, monitored by PCP. Controlled HTN #Monitoring compliance with/adherence to treatment No missed doses of letrozole #ROS: # New headaches: None # New back/bone pain: None # Elevated LFTs for CMP on 08/13/2023: Recommended PCP follow-up with repeat labs and holding turkeytail Review of Symptoms: As per HPI, all [...] neck stiffness. Skin: Negative for rash. Neurological: Negative for dizziness, extremity weakness, gait problem, headaches, light-headedness, numbness, seizures and speech difficulty. Hematological: Negative for adenopathy. Allergies: Allergies as of 09/25/2023 - Review Complete 09/25/2023 Allergen Reaction Noted Atorvastatin Other (See Comments) [...] 3 times daily as needed for Anxiety. letrozole (Femara) 2.5 mg tablet Take 1 tablet by mouth daily. UNABLE TO FIND Take by mouth. [place] Tail Ergocalciferol, Vitamin D2, 10 mcg (400 [...] tablet Take 100 mg by mouth Daily. emollient combination no.111 (REMEDY PHYTOPLEX MOISTURIZER TOP) Apply topically. Phytoplex Remedy Moisturizer: Apply to area of radiation twice a day but no less than 2 hours before a treatment. Surgical History: Past Surgical History: Procedure Laterality Date MASTECTOMY, PARTIAL Right 04/16/2023 PRO UPPER GI ENDOSCOPY, BIOPSY N/A 08/03/2023 EGD WITH BIOPSY (WRVU 2.39) performed by Héctor Allen MD at [facility] ENDOSCOPY ROTATOR CUFF REPAIR Right Family History: Family History No data available Social History: reports that she has never [...] lb) Temp Readings from Last 3 Encounters: 09/25/23 36.4 ??C (97.6 ??F) (Temporal) 08/14/23 36.9 ??C (98.4 ??F) (Temporal) 08/07/23 36.8 ??C (98.2 ??F) (Temporal) BP Readings from Last 3 Encounters: 09/25/23 157/49 08/14/23 145/51 08/07/23 192/68 Pulse Readings from Last 3 Encounters: 09/25/23 60 08/14/23 59 08/07/23 58 ECOG PS: 0 Gen: alert and oriented x 3 HEENT: normocephalic, atraumatic, sclerae anicteric, oropharynx clear, moist mucous membranes Neck: supple, non-tender. No thyromegaly. Breast exam: Breast exam: Patient provided verbal consent for breast exam Right breast: Skin: No rash or erythema noted, no palpable breast masses/lumps, nipple: Everted, nospontaneous discharge Right axilla: No palpable lymphadenopathy Left breast: Skin: No rash or erythema noted, no palpable breast masses/lumps, nipple: Everted, no spontaneous discharge Left axilla: No palpable lymphadenopathy Lungs: clear to ausculation bilaterally, no wheezes, rales, ronchi, or increased work of breathing Heart: regular rate and rhythm, no murmurs, rubs, or gallops Abd: soft, nontender, nondistended, positive bowel sounds, no rebound/guarding/rigidity Ext: no cyanosis, clubbing, or edema Neuro: speech fluent, moves all four extremities spontaneously Lymph: no cervical, posterior auricular, submandibular, submental, supraclavicular, infraclavicular, axillary or inguinal lymphadenopathy Spine palpation: No tenderness noted Labs: 08/13/2023 COMPREHENSIVE METABOLIC PANEL (CMP) Specimen: Blood - Venous blood (substance) Component Ref Range & Units 1 mo ago Sodium 136 - 145 mmol/L 138 Potassium 3.5 - 5.0 mmol/L 3.2 Low Chloride 96 - 110 mmol/L 100 CO2 Total 22 - 32 mmol/L 32 Glucose 70 - 99 mg/dl 82 BUN 10 - 26 mg/dL 15 Creatinine 0.52 - 1.04 mg/dL 0.72 eGFR >60 mL/min/1.73m2 84 Total Protein 6.3 - 8.2 g/dL 6.4 Albumin 3.4 - 4.9 g/dL 3.7 Alkaline Phosphatase 38 - 126 U/L 166 High AST 15 - 46 U/L 64 High ALT <35 U/L 231 High Bilirubin, Total <1.4 mg/dL 2.1 High Calcium 8.5 - 10.5 mg/dL 10.8 High Albumin/Globulin Ratio 1.0 - 2.5 1.4 Anion Gap 5 - 14 mmol/L 6 CBC: COMPLETE BLOOD COUNT AND DIFFERENTIAL Specimen: Blood - Venous blood (substance) Component Ref Range & Units 1 mo ago WBC 4.00 - 12.40 K/cmm 6.35 RBC 3.86 - 5.04 M/cmm 3.91 Hemoglobin 11.6 - 15.2 g/dL 11.5 Low HCT 34.9 - 44.4 % 33.8 Low MCV 81 - 98 fL 86 MCH 26.7 - 33.3 pg 29.4 MCHC 32.1 - 35.9 g/dL 34.0 RDW-CV <14.7 % 13.0 RDW-SD <50.4 fl 40.9 PLT 141 - 377 K/cmm 189 MPV 9.5 - 12.7 fL 10.2 % Neutrophils % 79.4 % Lymphocytes % 9.0 % Monocytes % 7.2 % Eosinophils % 3.0 % Basophils % 0.8 % Immature Grans % 0.6 Absolute Neutrophils 2.20 - 8.85 K/cmm 5.04 Absolute Lymphocytes 1.09 - 3.30 K/cmm 0.57 Low Absolute Monocytes 0.10 - 0.80 K/cmm 0.46 Absolute Eosinophils 0.03 - 0.61 K/cmm 0.19 ABS Basophils 0.01 - 0.11 K/cmm 0.05 Absolute Immature Grans 0.00 - 0.06 K/cmm 0.04 Type of Differential: Auto Pathology: Biopsy - Pathology : Surgical Pathology s/p definitive breast surgery (partial mastectomy + SLNB): Oncotype Dx RS: 17 Annual mammogram: To be ordered and scheduled for surgery Imaging: Reports scanned under media CT C/A/P with contrast: 03/02/2023 Revealed lobulated [...] visible strictureis present. Mild GERD DEXA scan: Pending, will follow results Counseling: Total time spent: 40 follow-up okay are you good goodminutes with > 50% spend in discussion of above, [id number] time and coordination of care with the patient today Records were reviewed which included imaging, surgical reports, pathology reports and physician notes. The patient was counseled extensively. We discussed the results of all recent diagnostic tests and what these results mean. We discussed the prognosis of the disease. We discussed the risks and benefits of the treatment plan at length. The patient was given instruction for treatment and the follow up appointments were reviewed. We reviewed all the medications and educated the patient about their appropriate uses. The importance of compliance with all medications and instruction was emphasized. All aspects of the plan were discussed with the patient. The patient was given opportunities to askquestions, which we answered. Ms. Kenyatta Vizcaino has endorsed agreement and understanding [...] line with non urgent questions and concerns. Rosanne Stauffer MD Medical Oncology [facility] Drupal DeveloperCollege Football Coach, [employer] Office Cancer.[facility] documented in this encounter Plan of Treatment Upcoming Encounters Date Type Department Care Team (Late st Contact Info) Description 02/08/2024 10:00 AM EST Office Visit Hematology/Oncology at [address] [phone] Keisha Rodriguez APRN [address] [place] [address] [place] [address] 02/08/2024 10:30 AM EST Infusion Hematology Oncology at [address] [phone] 02/13/2024 10:00 AM EST Office Visit General Surgery at [address] [phone] Leticia Lieberman MD [address] [place] [address] [place] [address] 11/06/2069 Hospital Encounter [place] [address] Philly Zuluaga MD [facility] OBSTETRICS [place] [address] Scheduled Procedures Name Priority Associated Diagnoses Date/Ti me HYSTEROSCOPY, SURG W/ENDOMET RIAL SAMPLING, POLYPECTOMY (WRVU 4.17) Thickened endometrium documented as of this encounter Visit Diagnoses Diagnosis Stage II breast cancer in female Aromatase inhibitor use Use of aromatase inhibitors documented in this encounter Care Teams Senior Sharepoint Developer Relationship Specialty Start Date End Date Dane Rick [address] [place] [phone] PCP - General Family Medicine 03/05/23 documented as of this encounter
--- OUTSIDE RECORDS SUMMARY | 2024-02-08 01:05 | XMS_ITS | Encounter Summary ---
Author Organization [facility] Address [facility] [place] [address] Care Team Providers Care Car Pincher Name Role Phone Dane Rick Primary Care Provider [phone] Reason for Visit * Consultation (Routine) - Closed Specialty Diagnoses / Procedures Referred By rFanky ferreira Referred To Contact Radiation Oncology Diagnoses Malignant neoplasm of lower-outer quadrant of right breast of female, estrogen receptor positive Procedures Re-simulation for Radiation Therapy Planning Ann James MD [facility] [place] [address] [facility] Rad Onc Office [address] [place] [phone] Referral ID Status Reason Start Date Expiration Date V isits Requested Visits Authorized [id number] Closed Consult, Test & Treat 07/10/2023 07/09/2024 1 1 Encounter Details Date Type Department Care Team (Latest Contact Info) Description 07/10/2023 3:30 PM EDT Ancillary Appointment Radiation Oncology at [address] [phone] Ann James MD [facility] [place] [address] Malignant neoplasm of lower-outer quadrant of right [...] on file documented as of this encounter Progress Notes * Ann James MD - 07/10/2023 3:30 PM EDT Here for resim. Sim: Breast bd immobilization; wire on lumpectomy scar; flat bbs on R breast perimeter; CT through neck & chest; 3D xrt planned. She tolerated sim well, w/o problem. Tx Plan: 3D xrt. Start xrt 1-2 wks. documented in this encounter Plan of Treatment Upcoming Encounters Date Type Department Care Team (Late st Contact Info) Description 02/08/2024 10:00 AM EST Office Visit Hematology/Oncology at [address] [phone] Keisha Rodriguez APRN [address] [place] [address] [place] [address] 02/08/2024 10:30 AM EST Infusion Hematology Oncology at [address] [phone] 02/13/2024 10:00 AM EST Office Visit General Surgery at [address] [phone] Leticia Lieberman MD [address] [place] [address] 11/06/2069 Hospital Encounter Outpatient [place] [phone] Philly Zuluaga MD [facility] OBSTETRICS [place] [address] Scheduled Procedures Name Priority Associated Diagnoses Date/Ti me HYSTEROSCOPY, SURG W/ENDOMET RIAL SAMPLING, POLYPECTOMY (WRVU 4.17) Thickened endometrium documented as of this encounter Visit Diagnoses Diagnosis Malignant neoplasm of lower-outer quadrant of right breast of female, estrogen receptor positive documented in this encounter Care Teams Car Pincher Relationship Specialty Start Date End Date Dane Rick [address] [place] [phone] PCP - General Family Medicine 03/05/23 documented as of this encounter
--- OUTSIDE RECORDS SUMMARY | 2024-02-08 01:05 | XMS_ITS | Encounter Summary ---
Author Organization [facility] Address [facility] [place] [address] Care Team Providers Care Debubblizer Name Role Phone Dane Rick Primary Care Provider [phone] Reason for Visit * Consultation (Routine) - Closed Specialty Diagnoses / Procedures Referred By Franky ferreira Referred To Contact Hematology and Oncology Diagnoses Invasive ductal carcinoma of right breast Status post partial mastectomy of right breast Leticia Lieberman MD [address] [place] [address] Rosanne Stauffer MD [facility] [place] [address] Referral ID Status Reason Start Date Expiration Date V isits Requested Visits Authorized [id number] Closed Consult, Test & Treat 04/17/2023 04/16/2024 1 1 Encounter Details Date Type Department Care Team (Late st Contact Info) Description 05/29/2023 11:00 AM EST Office Visit Hematology/Oncology at [address] [phone] Rosanne Stauffer MD Stage II breast cancer in female; Aromatase [...] Sign Reading Time Taken Comments Blood Pressure 159/60 05/29/2023 11:06 AM EST Pulse - - Temperature 36.3 ??C (97.3 ??F) 05/29/2023 11:[address] Respiratory Rate 16 05/29/2023 11:06 AM EST Oxygen Saturation 100% 05/29/2023 11:06 AM EST Inhaled Oxygen Concentration - - Weight 66.8 kg (147 lb 3.2 oz) 05/29/2023 11:06 AM EST Height - - Body Mass Index 29.73 03/22/2023 1:00 PM EST documented in this encounter Progress Notes * Rosanne Stauffer MD - 05/29/2023 11:00 AM EST Images from the original note were not included. 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 There are few subcentimeter right axillary lymph although these lymph nodes are within normal limits for size, they demonstrate no definite fatty faustino,raising suspicion for possibility of that they may [...] margins are negative for invasive carcinoma. SLNB: 005/16/2023: Oncotype Dx RS: 17 HPI: Ms. Kenyatta Vizcaino is a 82 y.o. female with PMHx significant for but not limited to HTN, CVA onASA, ABDOULAYE, CHF, trigeminal neuralgia and stage II ER positive MT negative HER2 negative right breastcancer s/p right partial mastectomy on 04/16/2023; Oncotype Dx RS on 05/16/2023 = 17, who presents today to discuss next steps in management of stage II right breast cancer. Interval History: Kenyatta is here today with her daughter Adriana #Recovery s/p surgery: She endorsed recovering well s/p surgery #Breast concerns: She is endorsing no new breast concerns today Monitoring treatment related side effects #Arthralgia: H/o pain in left knee; left shoulder; left ankle; left 4th finger at baseline #Myalgia: None #H/o hot flashes: none #Fatigue: Endorsing no fatigue #Neuropathy: Endorsing no history of neuropathy #History of cardiac disease: Endorsing controlled HTN and no history of CAD, she has history of CVAand has been on ASA #Monitoring compliance with/adherence to treatment: N/A #ROS: Headaches: None Bone/back ache: None #Discussion of imaging [CT CAP]: Discussed prior imaging with Rolan. Imaging consistent with esophageal thickening and endometrial thickening. Recommended workup of these findings per PCP History Oral contraceptive use none Menarche age 14 LMP Cannot recall Personal history of hormone replacement therapy none Family history of breast cancer None Family history of ovarian cancer None Family history of prostate cancer None Ashkenazi Yarsani heritage None Personal history of known genetic mutation None Review of Symptoms: As per HPI, all other systems were reviewed and are negative. Review of Systems Constitutional: Negative for appetite change, fatigue and unexpected weight change. HENT: Negative for lump/mass. Eyes: Negative for eye problems. Respiratory: Negative for chest tightness, cough, shortness of breath and wheezing. Cardiovascular: Negative for chest pain, leg swelling and palpitations. Gastrointestinal: Negative for abdominal distention, abdominal pain, constipation, diarrhea, nauseaand vomiting. Endocrine: Negative for hot flashes. Genitourinary: Negative for difficulty urinating and vaginal bleeding. Musculoskeletal: Positive for arthralgias. Negative for back pain, flank pain, gait problem, myalgias, neck pain and neck stiffness. Skin: Negative for rash. Neurological: Negative for dizziness, extremity weakness, gait problem, headaches, light-headedness, numbness, seizures and speech difficulty. Hematological: Negative for adenopathy. Allergies: Allergies as of 05/29/2023 - Review Complete 05/28/2023 Allergen Reaction Noted Atorvastatin Other (See Comments) 06/29/2022 Azithromycin 11/15/2010 Metoprolol Other (See Comments) 11/13/2018 Metronidazole 01/01/2013 Penicillins Rash 11/15/2010 Medical History: Past Medical History: Diagnosis Date Benign essential HTN Breast cancer right CHF (congestive heart failure) CVA (cerebral vascular accident) Depression with anxiety Diverticular disease of colon Goiter Trigeminal neuralgia Current Medications: Current Outpatient Medications Medication Sig UNABLE TO FIND Take by mouth. [place] acetaZOLAMIDE (Diamox) 250 mg tablet Take 250 mg by mouth 3 times daily. Ergocalciferol, Vitamin D2, 10 mcg (400 unit) Tablet Take 1 tablet by mouth. MAGNESIUM GLUCONATE ORAL Take 1 tablet by mouth. aspirin EC 81 mg EC (DR) tablet Take 81 mg by mouth Every other day. furosemide (Lasix) 20 mg tablet TAKE 2 TABLETS BY MOUTH ONCE DAILY IN THE MORNING AND 1 IN THE AFTERNOON losartan (Cozaar) 100 mg tablet Take 100 mg by mouth Daily. Surgical History: Past Surgical History: Procedure Laterality Date MASTECTOMY, PARTIAL Right 04/16/2023 ROTATOR CUFF REPAIR Right Family History: Family History No data available Genetics: No genetic testing on file Social History: Kenyatta reports that she has never smoked. She has never used smokeless tobacco. She reports that she does not use drugs. Physical Exam: Vital signs and weight : Wt Readings from Last 3 Encounters: 04/17/23 68.5 kg (151 lb) 03/22/23 65.1 kg (143 lb 9.6 oz) Temp Readings from Last 3 Encounters: 05/28/23 36.8 ??C (98.2 ??F) 05/01/23 37.1 ??C (98.8 ??F) BP Readings from Last 3 Encounters: 05/28/23 187/79 04/17/23 122/60 03/22/23 163/61 Pulse Readings from Last 3 Encounters: 05/28/23 53 04/17/23 63 03/22/23 61 -- Cancer Distress Responses: No data to display ECOG PS: 0 Gen: alert and oriented x 3 HEENT: normocephalic, atraumatic, sclerae anicteric, oropharynx clear, moist mucous membranes Neck: supple, non-tender. No thyromegaly. Breast exam: Patient provided verbal consent for breast exam Right breast: Skin: Scar/incision: CDI, no rash or erythema noted, no palpable breast masses/lumps,nipple: Everted, no spontaneous discharge Right axilla: No palpable lymphadenopathy Left breast: Skin: No rash or erythema noted, no palpable breast masses/lumps, nipple: Everted, normal position, no spontaneous discharge Left axilla: No palpable lymphadenopathy Lungs: clear to ausculation bilaterally, no wheezes, rales, ronchi, or increased work of breathing Heart: regular rate and rhythm, no murmurs, rubs, or gallops Abd: soft, nontender, nondistended, positive bowel sounds, no rebound/guarding/rigidity, no masses Ext: no cyanosis, clubbing, or edema Neuro: speech fluent, moves all four extremities spontaneously Lymph: no cervical, posterior auricular, submandibular, submental, supraclavicular, infraclavicular, axillary or inguinal lymphadenopathy Labs: No labs discussed today Pretreatment/diagnostic breast Imaging: Diagnostic mammogram and U/S: MRI breast: Pathology: Biopsy - Pathology : Surgical Pathology s/p definitive breast surgery (partial mastectomy + SLNB): Oncotype Dx RS: 17 Annual mammogram: To be planned by surgery Imaging: Pretreatment staging CT C/A/P with contrast: Bone scan: On treatment/posttreatment imaging DEXA scan: None on file Cardiac oncology: EKG: TTE: Assessment & Plan: Ms. Kenyatta Vizcaino is a 82 y.o. 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 Extensive LVI -Oncotype DX RS = 17 - Genetics: No testing done - Staging imagin03/02/2023: Staging imaging: CT CAP: Revealed CT CAP 03/02/2020 lobulated soft tissue mass in the right breast stated history of right breast cancer. There are few subcentimeter right axillary lymph although these lymph nodes are within normal limits for size, they demonstrate no definite fatty faustino,raising suspicion for possibility of that they may be pathogenic/metastatic in nature. Interval development of moderate circumferential wall thickening of the mid esophagus, which may be associated with luminal narrowing. Differential possibilities in gyrus and esophageal mass cannot be excluded. No evidence of metastatic disease in the abdomen or pelvis. The endometrial stripe is abnormally for the postmenopausal state measuring up to 8 mm in diameter Bone scan: Negative for skeletal metastasis -Menopausal status: Postmenopausal - Treatment: 04/16/2023: Right partial mastectomy. #Adjuvant endocrine therapy: We have discussed that adjuvant endocrine therapy is the cornerstone of adjuvant systemic therapy of hormone positive breast cancer; as data from multiple trials have shown that endocrine therapy reduces the risk of systemic recurrence and among women with hormonereceptor positive breast cancer regardless of age, menopausal status, fabian involvement, tumor size,, or use of chemotherapy. We discussed the MOA of aromatase inhibitors and that they decrease the production of estrogen by inhibiting the enzyme that converts androgens to estrogen in peripheral tissues. We discussed that there are 3 third-generation aromatase inhibitors: Anastrozole, letrozole, exemestane. And that all three medications have same comparable efficacy and similar side effect profile. We discussed that duration of treatment is at least 5 years. Side effects of aromatase inhibitors include but not limited to: Arthralgia/arthritis, osteopenia/osteoporosis, myalgia, hot flashes, increased risk of worsening pre-existing HTN/CAD Kenyatta is in agreement to start letrozole today Prescription will be sent to her pharmacy Bone health: -DEXA scan: Will order DEXA scan -Recommended vitamin D and calcium Recommendations/Plan: I have recommended the following: -Will start letrozole today and closely monitor for side effects -DEXA scan ordered, will follow results -Annual mammogram to be planned for surgery Follow-up: 8 weeks Counseling: Total time spent: 60 minutes with > 50% spend in discussion of above, [id number] time and coordination of care with the patient today Records were reviewed which included imaging ( mammogram, US, MRI, PET/CT, Ultrasounds that were non breast, CTs, ), surgical reports, pathology reports and physician notes. [...] given opportunities to askquestions, which we answered. M* Kenyatta Vizcaino has endorsed agreement and understanding of thetreatment plan. ASCO Quality Metrics -Toxicity: Potential toxicities of therapy discussed in length with patient. Patient educated on symptom management interventions. -Pain Plan: Pain score noted in vitals above. -Fertility Risk: Postmenopausal -Advanced Care Planning: Did not discuss on this visit -Oral Chemotherapy: N/A -Patient asked to Call the team with concerning symptoms and if being admitted to other hospitals. Patient to contact team via my portal or triage line with non urgent questions and concerns. Rosanne Stauffer MD Medical Oncology [facility] [employer] Office Manager, [facility] [employer] [facility] [employer] Office Cancer.[facility] documented in this encounter Plan of Treatment Upcoming Encounters Date Type Department Care Team (Late st Contact Info) Description 02/08/2024 10:00 AM EST Office Visit Hematology/Oncology at [address] [phone] Keisha Rodriguez APRN [address] [place] [address] DR MEDICAL ONCOLOGY [place], [place] [id number] 02/08/2024 10:30 AM EST Infusion Hematology Oncology at [address] [phone] 02/13/2024 10:00 AM EST Office Visit General Surgery at [address] [phone] Leticia Lieberman MD [address] [place] [phone] 11/06/2069 Hospital Encounter Outpatient [place] [address] Philly Zuluaga MD [facility] OBSTETRICS [place] [address] Scheduled Procedures Name Priority Associated Diagnoses Date/Ti me HYSTEROSCOPY, SURG W/ENDOMET RIAL SAMPLING, POLYPECTOMY (WRVU 4.17) Thickened endometrium documented as of this encounter Visit Diagnoses Diagnosis Stage II breast cancer in female Aromatase inhibitor use Use of aromatase inhibitors documented in this encounter Care Teams Debubblizer Relationship Specialty Start Date End Date Dane Rick [address] [place] [phone] PCP - General Family Medicine 03/05/23 documented as of this encounter
--- OUTSIDE RECORDS SUMMARY | 2024-02-08 01:05 | XMS_ITS | Encounter Summary ---
Author Organization [facility] [place] [address] Care Team Providers Care Passenger Conductor Name Role Phone Dane Rick Primary Care Provider [phone] Reason for Visit * Reason Onset Date Comments Other 10/18/2023 Out reach Encounter Details Date Type Department Care Team (Late st Contact Info) Description 10/18/2023 Telephone Hematology/Oncology at [address] [phone] Melany Toribio MSW OFFICE OF CARE MANAGEMENT Other (Out reach) Social History Tobacco Use Types Packs/Day Years [...] encounter Miscellaneous Notes * Telephone Encounter - Melany Toribio MSW - 10/18/2023 1:21 PM EDT TC from Vicky, SW/CM from Kenyatta's PCP office indicating she has been following Kenyatta for some time. Kenyatta will sometimes ask Vicky questions about her medication which she can not answer. Vicky has encouraged Kenyatta to call here if she has any question especially re her medication. Kenyatta's next appointment here is with her provider on 11/06/23. CAROL ANN agreed to reach out to Kenyatta as another resource for her. documented in this encounter Plan of Treatment Upcoming Encounters Date Type Department Care Team (Late st Contact Info) Description 02/08/2024 10:00 AM EST Office Visit Hematology/Oncology at [address] [phone] Keisha Rodriguez APRN [address] [place] [address] [place] [address] 02/08/2024 10:30 AM EST Infusion Hematology Oncology at [address] [phone] 02/13/2024 10:00 AM EST Office Visit General Surgery at [address] [phone] Leticia Lieberman MD [address] [place] [phone] 11/06/2069 Hospital Encounter Outpatient [place] [address] Philly Zuluaga MD [facility] OBSTETRICS [place] [address] Scheduled Procedures Name Priority Associated Diagnoses Date/Ti me HYSTEROSCOPY, SURG W/ENDOMET RIAL SAMPLING, POLYPECTOMY (WRVU 4.17) Thickened endometrium documented as of this encounter Visit Diagnoses Not on filedocumented in this encounter Care Teams Passenger Conductor Relationship Specialty Start Date End Date Dane Rick [address] [place] [phone] PCP - General Family Medicine 03/05/23 documented as of this encounter
--- OUTSIDE RECORDS SUMMARY | 2024-02-08 01:05 | XMS_ITS | Encounter Summary ---
Author Organization [facility] Address [facility] [place] [address] Care Team Providers Care Director Ambulatory Name Role Phone Dane Rick Primary Care Provider [phone] Reason for Referral * Consultation (Routine) - Closed Specialty Diagnoses / Procedures Referred By Franky ferreira Referred To Contact Radiation Oncology Diagnoses Malignant neoplasm of lower-outer quadrant of right breast of female, estrogen receptor positive Procedures Re-simulation for Radiation Therapy Planning Ann James MD [facility] [place] [address] [facility] Rad Onc Office [address] [place] [phone] Referral ID Status Reason Start Date Expiration Date V isits Requested Visits Authorized [id number] Closed Consult, Test & Treat 07/04/2023 07/03/2024 2 2 Encounter Details Date Type Department Care Team (Late st Contact Info) Description 07/04/2023 Orders Only Radiation Oncology at [address] [phone] [facility] [place] [address] Malignant neoplasm of lower-outer quadrant of right [...] 10:00 AM EST Office Visit Hematology/Oncology at [address] [phone] Keisha Rodriguez APRN [address] [place] [address] DR MEDICAL ONCOLOGY [place], [place] [phone] 02/08/2024 10:30 AM EST Infusion Hematology Oncology at [address] [phone] 02/13/2024 10:00 AM EST Office Visit General Surgery at [address] [phone] Leticia Lieberman MD [address] [place] [phone] 11/06/2069 Hospital Encounter [place] [phone] Philly Zuluaga MD [facility] OBSTETRICS [place] [address] Scheduled Orders Name Type Priority Associated Diagnoses Orde r Schedule Re-simulation for Radiation Therapy Planning Radiation Oncology Routine Malignant neoplasm of lower-outer quadrant of right breast of female, estrogen receptor positive Expected: 07/24/2023, Expires: 01/23/2024 Scheduled Procedures Name Priority Associated Diagnoses Date/Ti me HYSTEROSCOPY, SURG W/ENDOMET RIAL SAMPLING, POLYPECTOMY (WRVU 4.17) Thickened endometrium documented as of this encounter Visit Diagnoses Diagnosis Malignant neoplasm of lower-outer quadrant of right breast of female, estrogen receptor positive documented in this encounter Care Teams Director Ambulatory Relationship Specialty Start Date End Date Dane Rick [address] [place] [phone] PCP - General Family Medicine 03/05/23 documented as of this encounter
--- OUTSIDE RECORDS SUMMARY | 2024-02-08 01:05 | XMS_ITS | Encounter Summary ---
[place] [address] Care Team Providers Care Table Tender Name Role Phone Dane Rick Primary Care Provider [phone] Encounter Details Date Type Department Care Team (Latest Contact Info) Description 05/28/2023 Travel Social History Tobacco Use Types Packs/Day Years Used Date Smoking Tobacco: Never Smokeless Tobacco: Never Alcohol Use Standard Drinks/Week Comments Not Asked 0 (1 standard drink = 0.6 oz pur e alcohol) seldom Sex and Gender Information Value Date Recorded Sex Assigned at Not on file Gender Identity Not on file Sexual Orientation Not on file documented as of this encounter Plan of Treatment Upcoming Encounters Date Type Department Care Team (Late st Contact Info) Description 02/08/2024 10:00 AM EST Office Visit Hematology/Oncology at [address] [phone] Keisha Rodriguez APRN [address] [place] [address] [place] [address] 02/08/2024 10:30 AM EST Infusion Hematology Oncology at [address] [phone] 02/13/2024 10:00 AM EST Office Visit General Surgery at [address] [phone] Leticia Lieberman MD [address] [place] [phone] 11/06/2069 Hospital Encounter [place] [address] Philly Zuluaga MD [facility] DR OBSTETRICS [place] [address] Scheduled Procedures Name Priority Associated Diagnoses Date/Ti me HYSTEROSCOPY, SURG W/ENDOMET RIAL SAMPLING, POLYPECTOMY (WRVU 4.17) Thickened endometrium documented as of this encounter Visit Diagnoses Not on filedocumented in this encounter Care Teams Table Tender Relationship Specialty Start Date End Date Dane Rick [address] [place] [phone] PCP - General Family Medicine 03/05/23 documented as of this encounter
--- OUTSIDE RECORDS SUMMARY | 2024-02-08 01:05 | XMS_ITS | Encounter Summary ---
Author Organization [facility] Address [facility] [place] [address] Care Team Providers Care Mechanical Detailer Name Role Phone Dane Rick Primary Care Provider Reason for Referral * Consultation (Routine) - Canceled Specialty Diagnoses / Procedures Referred By Franky ferreira Referred To Contact Radiation Oncology Diagnoses Malignant neoplasm of lower-outer quadrant of right breast of female, estrogen receptor positive Procedures Simulation for Radiation Therapy Planning Ann James MD [facility] [place] [address] [facility] Rad Onc Office [address] [place] [phone] Referral ID Status Reason Start Date Expiration Date V isits Requested Visits Authorized [id number] Canceled Consult, Test & Treat 05/28/2023 05/27/2024 20 26 Reason for Visit * Reason Comments Radiation Consult * Consultation (Routine) - Closed Specialty Diagnoses / Procedures Referred By Franky ferreira Referred To Contact Radiation Oncology Diagnoses Invasive ductal carcinoma of right breast Leticia Lieberman MD [address] [place] [phone] Ann James MD [facility] [place] [address] Referral ID Status Reason Start Date Expiration Date V isits Requested Visits Authorized [id number] Closed Consult, Test & Treat 05/01/2023 04/30/2024 1 1 Encounter Details Date Type Department Care Team (Late st Contact Info) Description 05/28/2023 10:00 AM EST Office Visit Radiation Oncology at [address] [phone] Ann James MD [facility] [place] [address] Malignant neoplasm of lower-outer quadrant of right [...] Sign Reading Time Taken Comments Blood Pressure 187/79 05/28/2023 10:07 AM EST Pulse 53 05/28/2023 10:07 AM EST Temperature 36.8 ??C (98.2 ??F) 05/28/2023 10:[address] Respiratory Rate 18 05/28/2023 10:07 AM EST Oxygen Saturation 100% 05/28/2023 10:07 AM EST Inhaled Oxygen Concentration - - Weight - - Height - - Body Mass Index - - documented in this encounter Patient Instructions * Patient Instructions* Ann James MD - 05/28/2023 10:00 AM EST Stop by patient coordinator front desk to excelsior picker request for xray of left shoulder & neck today @ [facility]. The staff @ [facility] will speak with you about bone scan appointment. Someone will call you to schedule Ctsimulation for T., 06/26/23 with plan to start radiotherapy M., 07/09/23. Do not take antioxidants during radiotherapy. documented in this encounter Progress Notes * Zaida Jansen RN - 05/28/2023 10:00 AM EST RADIATION ONCOLOGY NURSING INITIAL NURSING ASSESSMENT IDENTIFICATION: Kenyatta Vizcaino is a 82 y.o. year-old female with right breast cancer. ER+/[place]+, Her2- PRESENTING SYMPTOMS/CHIEF COMPLAINT: Here today for NPW REVIEW OF SYSTEMS: Review of Systems - Oncology 05/28/2023 9:09 AM REVIEW OF SYSTEMS Constitutional Weakness Pain Ear / nose / throat / mouth Dry mouth Difficulty swallowing Eyes Blurry vision Don't know Respiratory None of the above Cardiovascular Don't know Gastrointestinal Trouble swallowing Constipation Feeling bloated Other stomach, intestine, or bowel symptoms Skin, hair Loss of hair Musculoskeletal Joint stiffness Joint pain Muscle stiffness Reduced range of motion Unable to walk/difficulty walking Other symptoms with joints or muscles Neurological Muscular weakness Don't know Hematologic / Lymphatic Easy bruising or bleeding Genitourinary Don't know Other Symptoms side of neck and head numbness and hurt IN THE PAST 12 MONTHS HAVE YOU: Fallen more than one time? No Did slip on ice once Injured yourself as result of the fall? N/A Experienced difficulty with walking/problems with balance? No Do you use any assistive devices? No Any history of collagen vascular diseases:No Any Implanted Devices/Hardware: Yes If yes please put alert in ARIA patient summary Prior Radiotherapy: Yes To back as an infant Prior Chemotherapy: No Prior Hormone Therapy: No Other: Patient denies history of Scleroderma and Lupus LEARNING ASSESSMENT REVIEWED: No ADVANCED DIRECTIVE: Not discussed today. PAIN ASSESSMENT: 0 out of 10 *eD-H Adult PCS Flow Sheet if 4 or above SOCIAL ASSESSMENT: See ED social assessment information entered. Support Systems: Here today with Adriana martin Barriers to treatment: Lives in [place], Daughter lives between there and this clinic Referrals/Interventions: milk processing worker visit on day per routine. RADIATION SPECIFIC TEACHING:Will provide the following information on simulation day [facility] Radiation Therapy and You provided by Dr. James Site specific teaching : Breast teaching to be done by nursing on day of simulation Other: PLAN: Per Dr. James * Ann James MD - 05/28/2023 10:00 AM EST Images from the original note were not included. CC: Referred by Dr. Lieberman for eval for xrt for breast ca. HPI: Kenyatta is an 82 y/o f who palpated R breast mass. 01/03/23 Dr. Howe, [facility] [place], visible 3.5 cm hard irregular fixed mass UOQ R breast & enlarged lymph node R axilla. 01/23/23 dx'ic R mmg & R breast US: 2.4 - 2.8 cm mass @ 9:00, 5 cm from nipple. Multiple abnl lymph nodes including 1.4 cm hypoechoic R axillary node w/near complete loss of fatty hilum. 02/09/23 core needle bx R breast mass @ 9:00. Path: IDC, ER+[place]-, Her2-. 03/02/23 CT c/a/p: Lobulated R breast mass. A few subcm R axillary lymph nodes without fatty hilum, suggestive of possible pathologic met spread. Stable thyroid nodule. Moderate circumferential wall thickening of mid esophagus & esophagram or endoscopy & GI consult recommended for further eval. Thickened endometrial stripe & pelvic US recommended for further eval. 03/02/23 Bone scan: No bone met. Probable multifocal degenerative uptake. 03/22/23 Dr. Lieberman exam 2 cm mobile mass lateral R breast tethered to skin but w/o tripp involvement w/single mobile node in low R axilla. 04/16/23 R breast lumpectomy. Findings: large palpable mass w/satellite nodules inferomedial & inferolateral. Additional palpable nodule consistent w/preop imaging in inferolateral area excised. Path: IDC, gr 2, multifocal, 4 foci, largest 2.5 cm or 3.8 cm, extensive LVI, RM neg, 1 lymph node,neg (0/1), pT2(m) pN0. 05/01/23 Dr. Lieberman postop check, rtc 4 mos. 05/16/23 Oncotype DX 17. S: Healing well. Recent development difficulty raising L arm superior to shoulder & sometimes the arm just falls by her side; new onset dropping items from L hand; also L neck & shoulder pain. No numbness. No past medical history on file. No lupus/scleroderma. Xrt to R upper back as a baby for hemangioma. CVA w/R hemiparesis & R hemiplegia Htn ABDOULAYE CHF? 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 Your Medications Accurate as of May 28, 2023 10:06 AM. If you have any questions, ask your nurse or doctor. Continued medications, unchanged Dose Details acetaZOLAMIDE 250 mg tablet Commonly known as: Diamox Take 250 mg by mouth 3 times daily. 250 mg Refills: 0 aspirin EC 81 mg EC (DR) tablet Take 81 mg by mouth Every other day. 81 mg Refills: 0 Ergocalciferol (Vitamin D2) 10 mcg (400 unit) Tablet Take 1 tablet by mouth. 1 tablet Refills: 0 furosemide 20 mg tablet Commonly known as: Lasix TAKE 2 TABLETS BY MOUTH ONCE DAILY IN THE MORNING AND 1 IN THE AFTERNOON Refills: 0 losartan 100 mg tablet Commonly known as: Cozaar Take 100 mg by mouth Daily. 100 mg Refills: 0 MAGNESIUM GLUCONATE ORAL Take 1 tablet by mouth. 1 tablet Refills: 0 P&Shx: Never smoker. Physical Exam Constitutional: General: She is not in acute distress. Comments: BP 187/79 (Patient Position: Sitting) Pulse 53 Temp 36.8 ??C (98.2 ??F) Resp 18 SpO2 100% HENT: Head: Normocephalic. Eyes: General: No scleral icterus. Right eye: No discharge. Left eye: No discharge. Extraocular Movements: Extraocular movements intact. Conjunctiva/sclera: Conjunctivae normal. Pulmonary: Effort: Pulmonary effort is normal. No respiratory distress. Breath sounds: No stridor. Chest: Breasts: Right: No inverted nipple, mass, nipple discharge, skin change or tenderness. Left: No inverted nipple, mass, nipple discharge, skin change or tenderness. Abdominal: General: There is no distension. Palpations: Abdomen is soft. Tenderness: There is no abdominal tenderness. There is no guarding or rebound. Musculoskeletal: Cervical back: Normal range of motion and neck supple. No tenderness. Right lower leg: No edema. Left lower leg: No edema. Comments: Mild limitation raising R arm sup to shoulder. Lymphadenopathy: Head: Right side of head: No submental, submandibular, preauricular, posterior auricular or occipital adenopathy. Left side of head: No submental, submandibular, preauricular, posterior auricular or occipital adenopathy. Cervical: No cervical adenopathy. Upper Body: Right upper body: No supraclavicular or axillary adenopathy. Left upper body: No supraclavicular or axillary adenopathy. Neurological: Mental Status: She is alert and oriented to person, place, and time. Sensory: No sensory deficit. Motor: No weakness. Coordination: Coordination normal. Gait: Gait normal. Psychiatric: Mood and Affect: Mood normal. Behavior: Behavior normal. Thought Content: Thought content normal. Judgment: Judgment normal. A: Breast ca, R, IDC, gr 2, ER+[place]-, Her2-, multifocal, s/p lumpectomy, pT2(m) cN0. [facility] nomogram computes 69-81% probability involvement sentinel lymph node. Oncotype DX 17. P: Xrt to R breast & axilla with high tangents recommended to increase likelihood of ca cure. Xrt would be given in 20 fxs. Possible side effects of xrt discussed, w/acute/immediate side effects including: Pinkening, soreness & peeling of skin in treated area; swelling of treated area; soreness of treated area; cough;shortness of breath; tiredness. Acute/immediate side effects usually temporary. Late/longterm side effects of xrt discussed include: Treated R breast may tighten, become firmer & sit higher; achiness/stiffness of chest wall on treated side; R sided rib fracture; CT after xrt may show scarring w/in small volume of lung on treated side; permanent swelling of R hand/arm; small risk of irradiation associated 2nd malignancy. Risk of occurrence of late/longterm side effects small. To decrease risk of lymphedema, she was instructed to avoid bp measurement on R upper extremity, avoid needle sticks on R upper extremity, avoid lifting too heavy of objects with R upper extremity & to contact physician if upper extremity turns pink or starts to swell. Need for Ctsim prior to xrt discussed. She would like to proceed w/plan for xrt & will return 06/26/23 for Ctsim with xrt initiation anticipated around 07/09/23. Given pain in L shoulder & L neck with difficulty raising L arm sup to shoulder & dropping items from L hand, plain xrays L shoulder & C spine ordered as well as bone scan, which can be compared with bone scan from 03/03/23 to check for intervening change. Advised to not take antioxidants during xrt. Dr. Salama eval for systemic tx 05/29/23. Radiation gutierrez:[place] protocol and Whole breast w/ tangents Radiation boost:Yes Total dose of radiation: 52.56 Gy 45 mins encounter documented in this encounter Plan of Treatment Upcoming Encounters Date Type Department Care Team (Late st Contact Info) Description 02/08/2024 10:00 AM EST Office Visit Hematology/Oncology at [address] [phone] Keisha Rodriguez APRN [address] [place] [address] [place] [address] 02/08/2024 10:30 AM EST Infusion Hematology Oncology at [address] [phone] 02/13/2024 10:00 AM EST Office Visit General Surgery at [address] [phone] Leticia Lieberman MD [address] [place] [address] 11/06/2069 Hospital Encounter Outpatient [place] [phone] Philly Zuluaga MD [facility] DR OBSTETRICS [place] [address] Scheduled Orders Name Type Priority Associated Diagnoses Orde r Schedule Simulation for Radiation Therapy Planning Radiation Oncology Routine Malignant neoplasm of lower-outer quadrant of right breast of female, estrogen receptor positive Expected: 06/26/2023, Expires: 12/26/2023 Scheduled Procedures Name Priority Associated Diagnoses Date/Ti me HYSTEROSCOPY, SURG W/ENDOMET RIAL SAMPLING, POLYPECTOMY (WRVU 4.17) Thickened endometrium documented as of this encounter Visit Diagnoses Diagnosis Malignant neoplasm of lower-outer quadrant of right breast of female, estrogen receptor positive documented in this encounter Care Teams Mechanical Detailer Relationship Specialty Start Date End Date Rick, Dane [address] [place] [phone] PCP - General Family Medicine 03/05/23 documented as of this encounter
--- OUTSIDE RECORDS SUMMARY | 2024-02-08 01:05 | XMS_ITS | Encounter Summary ---
[place] [address] Care Team Providers Care Specimen Accessioner Name Role Phone Dane Rick Primary Care Provider [phone] Encounter Details Date Type Department Care Team (Late st Contact Info) Description 07/17/2023 Telephone Hematology/Oncology at [address] [phone] Nupur Paul Social History Tobacco Use Types [...] AM EST Office Visit Hematology/Oncology at [address] [phone] Keisha Rodriguez APRN [address] [place] [address] [place] [address] 02/08/2024 10:30 AM EST Infusion Hematology Oncology at [address] [phone] 02/13/2024 10:00 AM EST Office Visit General Surgery at [address] [phone] Leticia Lieberman MD [address] [place] [phone] 11/06/2069 Hospital Encounter Outpatient [place] [phone] Philly Zuluaga MD [facility] OBSTETRICS [place] [address] Scheduled Procedures Name Priority Associated Diagnoses Date/Ti me HYSTEROSCOPY, SURG W/ENDOMET RIAL SAMPLING, POLYPECTOMY (WRVU 4.17) Thickened endometrium documented as of this encounter Visit Diagnoses Not on filedocumented in this encounter Care Teams Specimen Accessioner Relationship Specialty Start Date End Date Dane Rick [address] [place] [phone] PCP - General Family Medicine 03/05/23 documented as of this encounter
--- OUTSIDE RECORDS SUMMARY | 2024-02-08 01:05 | XMS_ITS | Encounter Summary ---
[place] [address] Care Team Providers Care Hog Dropper Name Role Phone Dane Rick Primary Care Provider [phone] Encounter Details Date Type Department Care Team (Latest Contact Info) Description 08/14/2023 Travel Social History Tobacco Use Types Packs/Day [...] 10:00 AM EST Office Visit Hematology/Oncology at [address] [phone] Keisha Rodriguez APRN [address] [place] [address] [place] [address] 02/08/2024 10:30 AM EST Infusion Hematology Oncology at [address] [phone] 02/13/2024 10:00 AM EST Office Visit General Surgery at [address] [phone] Leticia Lieberman MD [address] [place] [phone] 11/06/2069 Hospital Encounter Outpatient [place] [address] Philly Zuluaga MD [facility] DR OBSTETRICS [place] [address] Scheduled Procedures Name Priority Associated Diagnoses Date/Ti me HYSTEROSCOPY, SURG W/ENDOMET RIAL SAMPLING, POLYPECTOMY (WRVU 4.17) Thickened endometrium documented as of this encounter Visit Diagnoses Not on filedocumented in this encounter Care Teams Hog Dropper Relationship Specialty Start Date End Date Dane Rick [address] [place] [phone] PCP - General Family Medicine 03/05/23 documented as of this encounter
--- OUTSIDE RECORDS SUMMARY | 2024-02-08 01:05 | XMS_ITS | Encounter Summary ---
Author Organization [facility] Address [facility] [place] [address] Care Team Providers Care Health Advocate Name Role Phone Dane Rick Primary Care Provider [phone] Reason for Referral * Consultation (Routine) - Closed Specialty Diagnoses / Procedures Referred By Franky ferreira Referred To Contact Radiation Oncology Diagnoses Malignant neoplasm of lower-outer quadrant of right breast of female, estrogen receptor positive Procedures Re-simulation for Radiation Therapy Planning Ann James MD [facility] [place] [address] [facility] Rad Onc Office [address] [place] [phone] Referral ID Status Reason Start Date Expiration Date V isits Requested Visits Authorized [id number] Closed Consult, Test & Treat 07/10/2023 07/09/2024 1 1 Encounter Details Date Type Department Care Team (Late st Contact Info) Description 07/10/2023 Orders Only Radiation Oncology at [address] [phone] Ann James MD [facility] [place] [address] Malignant neoplasm of lower-outer quadrant of right [...] 10:00 AM EST Office Visit Hematology/Oncology at [address] [phone] Keisha Rodriguez APRN [address] [place] [address] DR MEDICAL ONCOLOGY [place], [place] [address] 02/08/2024 10:30 AM EST Infusion Hematology Oncology at [address] [phone] 02/13/2024 10:00 AM EST Office Visit General Surgery at [address] [phone] Leticia Lieberman MD [address] [place] [phone] 11/06/2069 Hospital Encounter Outpatient [place] [phone] Philly Zuluaga MD [facility] OBSTETRICS [place] [address] Scheduled Orders Name Type Priority Associated Diagnoses Orde r Schedule Re-simulation for Radiation Therapy Planning Radiation Oncology Routine Malignant neoplasm of lower-outer quadrant of right breast of female, estrogen receptor positive Expected: 07/10/2023, Expires: 01/09/2024 Scheduled Procedures Name Priority Associated Diagnoses Date/Ti me HYSTEROSCOPY, SURG W/ENDOMET RIAL SAMPLING, POLYPECTOMY (WRVU 4.17) Thickened endometrium documented as of this encounter Visit Diagnoses Diagnosis Malignant neoplasm of lower-outer quadrant of right breast of female, estrogen receptor positive documented in this encounter Care Teams Health Advocate Relationship Specialty Start Date End Date Dane Rick [address] [place] [phone] PCP - General Family Medicine 03/05/23 documented as of this encounter
--- OUTSIDE RECORDS SUMMARY | 2024-02-08 01:05 | XMS_ITS | Encounter Summary ---
[place] [address] Care Team Providers Care Barge Loader Name Role Phone Dane Rick Primary Care Provider [phone] Encounter Details Date Type Department Care Team (Late st Contact Info) Description 07/24/2023 1:30 PM EDT Office Visit Hematology/Oncology at [address] [phone] Rosanne Stauffer MD Stage II breast cancer [...] Sign Reading Time Taken Comments Blood Pressure 144/62 07/24/2023 1:30 PM EDT Pulse 63 07/24/2023 1:30 PM EDT Temperature 36.6 ??C (97.8 ??F) 07/24/2023 1 :30 PM EDT Respiratory Rate 18 07/24/2023 1:30 PM EDT Oxygen Saturation 100% 07/24/2023 1:3 0 PM EDT Inhaled Oxygen Concentration - - Weight 64.9 kg (143 lb) 07/24/2023 1:30 PM EDT patient reported Height 149.9 cm (4' 11.02) 07/24/2023 1:30 PM EDT Body Mass Index 28.87 07/24/2023 1:30 PM EDT documented in this encounter Progress Notes * Rosanne Stauffer MD - 07/24/2023 1:30 PM EDT Images from the original note were not included. 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 DIAGNOSIS: stage IIA ER positive LA negative HER2 negative right breast cancer Breast cancer pathology & staging: Clinical stage: cT2 cN1 Pathological stage: pT2 pN0 Pathology: Grade 2 IDC Karen status: Right SLNB: 0/1 Receptor status: ER positive [>90%], LA negative, HER2 negative [0] Oncotype DX RS: [...] revealed grade 2 IDC, ER positive [>90%], LA negative, HER2 negative [0] 03/02/2023: Staging imaging: [...] RS: 17 05[facility]28[facility]2023[facility], while planning [...] in regards to adjuvant right breast irradiation Assessment & Plan: Ms. Kenyatta Vizcaino is a 82 y.o. 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 # Stage II ER positive LA negative HER2 negative right breast cancer - [...] weight loss. Will continue to closely monitor - Imaging: Dr. Brooks and I discussed and reviewed imaging with Rolan today 06/19/2023: Bone scan: Multifocal lumbar uptake. Possibly [...] but no visible strictureis present. Mild GERD -Treatment: 04/16/2023: Right partial mastectomy. 05/28/2023: Start adjuvant letrozole Monitoring Treatment related toxicities: Tolerating letrozole well without apparent side effects at this time Monitoring compliance/adherence: No missed doses of letrozole Bone health: -DEXA scan: Pending will follow results -Recommended continuing with vitamin D - will plan to discuss adjuvant bisphosphonates based on DEXA scan results Recommendations/Plan: I have recommended the following: -Continue with letrozole -Kenyatta will decide in regards to adjuvant right breast irradiation and will communicate with Dr. James' office if she is to proceed. We discussed that she can take can continue on adjuvant letrozole while receiving radiation therapy -Will follow DEXA scan results -Continue with vitamin D Follow-up: 2 months or sooner if there are concerns Interval History: #Breast concerns: No current breast concerns Monitoring treatment related side effects #Arthralgia: Baseline arthralgia in left knee, left shoulder, left ankle, left fourth finger at baseline with some added stiffness since starting letrozole- Kenyatta describe this as tolerable #Hot flashes: None #Fatigue: Some fatigue #Neuropathy: No tingling or numbness #History of cardiac disease: h/o CAD control with goal-directed therapy, monitored by PCP. Controlled HTN #Monitoring compliance with/adherence to treatment No missed doses of letrozole #ROS: # New headaches: None # New back/bone pain: None Review of Symptoms: As per HPI, all other systems were reviewed and are negative. Review of Systems Constitutional: Negative for appetite change, chills, fatigue, fever and unexpected weight change. HENT: Negative for lump/mass. Eyes: Negative for eye problems. Respiratory: Negative for chest tightness, cough, shortness of breath and wheezing. Cardiovascular: Negative for chest pain, leg swelling and palpitations. Gastrointestinal: Negative for abdominal distention, abdominal pain, constipation, diarrhea, nauseaand vomiting. Endocrine: Negative for hot flashes. Genitourinary: Negative for difficulty urinating. Musculoskeletal: Positive for arthralgias. Negative for back pain, flank pain, gait problem, myalgias, neck pain and neck stiffness. Skin: Negative for rash. Neurological: Negative for dizziness, extremity weakness, gait problem, headaches, light-headedness, numbness, seizures and speech difficulty. Hematological: Negative for adenopathy. Allergies: Allergies as of 07/24/2023 - Review Complete 07/24/2023 Allergen Reaction Noted Atorvastatin Other (See Comments) 06/29/2022 Azithromycin 11/15/2010 Metoprolol Other (See Comments) 11/13/2018 Metronidazole 01/01/2013 Penicillins Rash 11/15/2010 Medical History: Past Medical History: Diagnosis Date Benign essential HTN Breast cancer right CHF (congestive heart failure) CVA (cerebral vascular accident) Depression with anxiety Diverticular disease of colon Goiter Trigeminal neuralgia Current Medications: Current Outpatient Medications Medication Sig Note emollient combination no.111 (REMEDY PHYTOPLEX MOISTURIZER TOP) Apply topically. Phytoplex Remedy Moisturizer: Apply to area of radiation twice a day but no less than 2 hours before a treatment. letrozole (Femara) 2.5 mg tablet Take 1 tablet by mouth daily. UNABLE TO FIND Take by mouth. [place] Ergocalciferol, Vitamin D2, 10 mcg (400 [...] 2.39) performed by Héctor Allen MD at [facility] ENDOSCOPY ROTATOR CUFF REPAIR Right Family History: Family History No data available Social History: reports that she has never smoked. She has never used smokeless tobacco. She reports that she does not currently use alcohol. She reports that she does not use drugs. Physical Exam: Vital signs and weight : Wt Readings from Last 3 Encounters: 07/31/23 65.8 kg (145 lb) 07/24/23 64.9 kg (143 lb) 05/29/23 66.8 kg (147 lb 3.2 oz) Temp Readings from Last 3 Encounters: 08/03/23 36.3 ??C (97.3 ??F) (Tympanic) 07/24/23 36.6 ??C (97.8 ??F) (Temporal) 05/29/23 36.3 ??C (97.3 ??F) (Temporal) BP Readings from Last 3 Encounters: 08/03/23 173/75 07/31/23 138/68 07/24/23 144/62 Pulse Readings from Last 3 Encounters: 08/03/23 57 07/31/23 65 07/24/23 63 ECOG PS: 0 Gen: alert and oriented x 3 HEENT: normocephalic, atraumatic, sclerae anicteric, oropharynx clear, moist mucous membranes Neck: supple, non-tender. No thyromegaly. Breast exam: Deferred today multidisciplinary discussion Lungs: clear to ausculation bilaterally, no wheezes, [...] lymphadenopathy Spine palpation: No tenderness noted Labs: No labs discussed today Pathology: Biopsy - Pathology : Surgical Pathology [...] will follow results Counseling: Total time spent: 45 follow-up okay are you good goodminutes with > 50% spend in discussion of above, [id number] time and coordination of care with the [...] and concerns. Rosanne Stauffer MD Medical Oncology [facility] Patient Support SpecialistCut Off Machine Helper, [employer] Office Cancer.[facility] documented in this encounter Plan of Treatment Upcoming Encounters Date Type Department Care Team (Late st Contact Info) Description 02/08/2024 10:00 AM EST Office Visit Hematology/Oncology at [address] [phone] Keisha Rodriguez APRN [address] [place] [address] MEDICAL ONCOLOGY [place], [place] [id number] 02/08/2024 10:30 AM EST Infusion Hematology Oncology at [address] [phone] 02/13/2024 10:00 AM EST Office Visit General Surgery at [place] [address] [place] [address] Leticia Lieberman MD [address] [facility] [place] [address] 11/06/2069 Hospital Encounter [place] [phone] Philly Zuluaga MD [facility] DR OBSTETRICS [place] [address] Scheduled Procedures Name Priority Associated Diagnoses Date/Ti me HYSTEROSCOPY, SURG W/ENDOMET RIAL SAMPLING, POLYPECTOMY (WRVU 4.17) Thickened endometrium documented as of this encounter Visit Diagnoses Diagnosis Stage II breast cancer in female Aromatase inhibitor use Use of aromatase inhibitors documented in this encounter Care Teams Barge Loader Relationship Specialty Start Date End Date Dane Rick [address] [place] [phone] PCP - General Family Medicine 03/05/23 documented as of this encounter
--- OUTSIDE RECORDS SUMMARY | 2024-02-08 01:05 | XMS_ITS | Encounter Summary ---
Author Organization Formerly [facility] [place] [address] Care Team Providers Care Peanut Vendor Name Role Phone Dane Rick Primary Care Provider [phone] Encounter Details Date Type Department Care Team (Late st Contact Info) Description 08/13/2023 Telephone Radiation Oncology at [address] [phone] Zaida Jansen, RN Social History Tobacco Use Types Packs/Day [...] Telephone Encounter - Zaida Jansen RN - 08/13/2023 11:49 AM EDT Patient reports that she felt worse after starting xrt than before and would want to speak with a doctor before continuing. She has had 3 Fxs totaling 798 cGy to right breast and SC/AX. She does not feel that she can come in for xrt today. . Specifically she feels very weak, heavy, dizzy and somewhat confused. She denies any falls but only because I haven't given myself a chance to fall, holding onto things when I walk. She reports that her face is flushed and round. She reports that her skin more so than the whites of her eyes are jaundiced. Urine is very dark. Has been drinking Pedialyte and water, eating small amounts. Denies nausea or vomiting. Her daughter Adriana is with her at the time of this call and is updating PCP as I am speaking with patient. Adriana concurs with patient report above and adds that PCP has recommended ED evaluation. She is planning to go to [facility] ED for evaluation. I instructed them that I do not think that xrt is cause of patient's new symptoms and would have recommended ED evaluation to sort this out as well. I also let them know that I will update Dr. Colon this note. * Telephone Encounter - Zaida Jansen RN - 08/13/2023 11:38 AM EDT ----- Message from Janiya Bansal sent at 08/13/2023 10:37 AM EDT ----- Kenyatta called in today to cancel her radiation appt today stating that she has not felt well sinceher third round of chemo and would like to talk to a doctor about I, mentioned something about going to the ER but she was very mumbled and I could not understand her clearly. Best call back number [phone] documented in this encounter Plan of Treatment Upcoming Encounters Date Type Department Care Team (Late st Contact Info) Description 02/08/2024 10:00 AM EST Office Visit Hematology/Oncology at [address] [phone] Keisha Rodriguez [address] [place] [address] 02/08/2024 10:30 AM EST Infusion Hematology Oncology at [address] [phone] 02/13/2024 10:00 AM EST Office Visit General Surgery at [address] [phone] Leticia Lieberman MD [address] [place] [address] 11/06/2069 Hospital Encounter Outpatient [place] [phone] Philly Zuluaga MD [facility] [place] [address] Scheduled Procedures Name Priority Associated Diagnoses Date/Ti me HYSTEROSCOPY, SURG W/ENDOMET RIAL SAMPLING, POLYPECTOMY (WRVU 4.17) Thickened endometrium documented as of this encounter Visit Diagnoses Not on filedocumented in this encounter Care Teams Peanut Vendor Relationship Specialty Start Date End Date Dane Rick [address] [place] [phone] PCP - General Family Medicine 03/05/23 documented as of this encounter
--- OUTSIDE RECORDS SUMMARY | 2024-02-08 01:05 | XMS_ITS | Encounter Summary ---
Author Organization [facility] [place] [address] Care Team Providers Care Welder 2Nd Shift Name Role Phone Dane Rick Primary Care Provider [phone] Encounter Details Date Type Department Care Team (Latest Contact Info) Description 08/03/2023 10:01 AM EDT - 08/03/2023 12:04 PM EDT Hospital En[place] [phone] Héctor Allen MD [facility] [place] [address] Discharge Disposition: Home Social History Tobacco Use Types Packs/Day Years [...] Sign Reading Time Taken Comments Blood Pressure 173/75 08/03/2023 11:50 AM EDT Pulse 57 08/03/2023 10:14 AM EDT Temperature 36.3 ??C (97.3 ??F) 08/03/2023 10:14 AM E DT Respiratory Rate 18 08/03/2023 11:50 AM EDT Oxygen Saturation 100% 08/03/2023 11:50 AM EDT Inhaled Oxygen Concentration - - [...] the day after the procedure, use an xohk-bvi-ozdjnau spray to numb your throat. Sucking on [...] occurs, please contact your Doctor. Please call [phone] before 8pm Mon-Fri with problems, questions or concerns. If you call after 8pm or on weekends, call the Hospital at [phone] and ask to speak to the Dinkey Locomotive Operator nurse practitioner physicians assistant and the dye range operator will contact that person for you. When should you call for help? Call 101 anytime you think you may need emergency [...] any problems. Where can you learn more? [facility] View your After Visit Summary and more online at [email or web address] If you would like to provide feedback about your hospital experience, please call the Office of Patient and Family Relations at . If you have received this After Visit Summary in error, please immediately return it in person to the department, or notify the [facility] Privacy Office by calling toll free at between the hours of 8AM and 5PM to arrange for our retrieval of the documents at no cost to you. Content Version: 12.2 ?? [id number] [employer]. Care instructions adapted under license by [facility]. If you have questions about a medical condition or this instruction, always ask your healthcare professional. [employer] disclaims any warranty or liability for your [...] the day after the procedure, use an pxlh-hlk-bqmmnse spray to numb your throat. Sucking on [...] occurs, please contact your Doctor. Please call [phone] before 8pm Mon-Fri with problems, questions or concerns. If you call after 8pm or on weekends, call the Hospital at [phone] and ask to speak to the Dinkey Locomotive Operator nurse practitioner physicians assistant and the dye range operator will contact that person for you. [...] any problems. Where can you learn more? [facility] View your After Visit Summary and more online at [email or web address] If you would like to provide feedback about your hospital experience, please call the Office of Patient and Family Relations at . If you have received this After Visit Summary in error, please immediately return it in person to the department, or notify the [facility] Privacy Office by calling toll free at between the hours of 8AM and 5PM to arrange for our retrieval of the documents at no cost to you. Content Version: 12.2 ?? [id number] [employer]. Care instructions adapted under license by [facility]. If you have questions about a medical condition or this instruction, always ask your healthcare professional. [employer] disclaims any warranty or liability for your [...] 05/29/2023 UNABLE TO FIND Take by mouth. [place] Tail Ergocalciferol, Vitamin D2, 10 mcg (400 [...] AM EST Office Visit Hematology/Oncology at [address] [phone] Keisha Rodriguez APRN [address] [place] [address] [place] [address] 02/08/2024 10:30 AM EST Infusion Hematology Oncology at [address] [phone] 02/13/2024 10:00 AM EST Office Visit General Surgery at [address] [phone] Leticia Lieberman MD [address] [place] [address] [place] [address] 11/06/2069 Hospital Encounter Outpatient [place] [address] Philly Zuluaga MD [facility] OBSTETRICS [place] [address] Scheduled Procedures Name Priority Associated Diagnoses Date/Ti me HYSTEROSCOPY, SURG W/ENDOMET RIAL SAMPLING, POLYPECTOMY (WRVU 4.17) Thickened endometrium documented as of this encounter Procedures Procedure Name Priority Date/Time Associated Diagnosis Comments SPECIMEN TO PATHOLOGY Routine 08/03/2023 11:12 AM EDT SPECIMEN TO PATHOLOGY Routine 08/03/2023 11:12 AM EDT SURGICAL PATHOLOGY REPORT Routine 08/03/2023 11:04 AM EDT Upper Gi Endoscopy, Biopsy ([id number]) 08/03/2023 10:51 AM EDT EGD Sedation: Anesthesia TImeframe: within 6 Weeks -- C. Indication: Abnormal Imaging - circumferential thickening mid esophagus seen on 03/02/23 CT c/a/p UPPER GI ENDOSCOPY Routine 08/03/2023 10 :09 AM EDT documented in this encounter Results * Specimen to Pathology (08/03/2023 11:12 AM EDT) AP Specimen 08/03/2023 11:1 2 AM EDT 08/03/2023 11:12 AM EDT Narrative [facility] - 08/03/2023 11:12 AM EDT Specimen requisition ordered. ??Separate Pathology report to follow Héctor Allen MD PATHOLOGY/CYTOLOGY O DORIAN Performing Organization Address [facility] Co de Phone Number [facility] [place] [address] * Specimen to Pathology (08/03/2023 11:12 AM EDT) AP Specimen 08/03/2023 11:1 2 AM EDT 08/03/2023 11:12 AM EDT Narrative [facility] - 08/03/2023 11:12 AM EDT Specimen requisition ordered. ??Separate Pathology report to follow Héctor Allen MD PATHOLOGY/CYTOLOGY O RDERABLES Performing Organization Address [facility]/[place] [address] * Surgical Pathology Report (08/03/2023 11:04 AM EDT) Final Diagnosis [id number] ? Location: 4T; EA08; A The signing [...] Kenny Verified: ??08/06/2023 14:37 ??Pathologist Performed at: ??-[facility] Dept. of [place]ology, [place] [address] Electro Optical Engineer: Ren Carranza MD, FCAP, ??CLIA Certificate: [id number] SPECIMEN(S) SUBMITTED A - Schatzki's ring biopsies, [...] labeled B1. ??shb 08/06/2023 2:37 PM EDT [facility] GI Biopsy 08/03/2023 11:0 4 AM EDT 08/03/2023 11:04 AM EDT GI Biopsy 08/03/2023 11:0 4 AM EDT 08/03/2023 11:04 AM EDT Héctor Allen MD PATHOLOGY/[facility]TOLOGY [facility] [place] [place] [address] * UPPER GI ENDOSCOPY (08/03/2023 10:09 AM EDT) UPPER GI ENDOSCOPY [facility] Endoscopy ___ Procedure Date: 08/03/2023 10:09 AM ? Patient Name: Kenyatta Vizcaino ? N: [id number] ? Date of : 1940 ? Age: 82 ? Order #: [id number] ? Instrument Name: [id number] ? ___ Procedure: ? Upper GI endoscopy [...] physician, the nurse, the ? anesthesiologist, the prism inspector ? and the quality control lab technician in the ? pre-procedure area in [...] Comment: Switch to gravity)1050 (Restarted - Provider: Barb Rush MD)1110 (Stopped - Provider: Barb Rush MD) documented in this encounter Care Teams Welder 2Nd Shift Relationship Specialty Start Date End Date Dane Rick [address] [place] [phone] PCP - General Family Medicine 03/05/23 documented as of this encounter
--- OUTSIDE RECORDS SUMMARY | 2024-02-08 01:05 | XMS_ITS | Encounter Summary ---
Author Organization [facility] [place] [address] Care Team Providers Care Cloth Examiner Hand Name Role Phone Dane Rick Primary Care Provider [phone] Encounter Details Date Type Department Care Team (Late st Contact Info) Description 07/18/2023 Telephone Radiation Oncology at [address] [phone] Zaida Jansen RN Social History Tobacco Use [...] encounter Miscellaneous Notes * Telephone Encounter - Yanna Jaquez RN - 07/19/2023 3:04 PM EDT Called and LM for pt letting her know okay to take letrozole in evening. * Telephone Encounter - Zaida Jansen RN - 07/18/2023 6:20 PM EDT Patient states that she continues to have questions regarding tests ordered and her treatment plan including if there has been too much time elapsed from surgery to starting xrt for effectiveness. She wants to assure her doctors that she is still open to xrt however, she would like to postpone coming in for films scheduled 07/22 or starting xrt currently scheduled 4/23 @ 11:30 until she has the chance to see Dr. James and Dr. Stauffer together at 1:30 on 07/23. I let her know that I will ask for the films only appointment and start of xrt to be changed until aftertim has seen the providers together. Additionally, she has a question for Dr. Stauffer. She reports that she becomes very tired after taking letrozole in the morning. This tends to wear off as the day progresses. She wonders if it is ok to change to taking letrozole in the evening instead. She states that she also has a prescription for ativan 0.5 mg three times daily as needed which we do not currently have on her medication list and she wonders if ok to take with her other meds including letrozole. I advised ok to take along with the other medications but that it may make her drowsy. She assures me that she does not take in the morning and that it is not contributing to the tiredness she experiences but in fact helps lighten her and make her feel better. I let her know that I will update Dr. Stauffer regarding her letrozole related questions. She states that she is agreeable to this plan and wants to be sure that her providers know how haile is thankful for their care. * Telephone Encounter - Zaida Jansen RN - 07/18/2023 6:14 PM EDT ----- Message from Janiya Bansal sent at 07/18/2023 12:43 PM EDT ----- Kenyatta called in needing reassurance about some of her appointments Best call back number [phone] documented in this encounter Plan of Treatment Upcoming Encounters Date Type Department Care Team (Late st Contact Info) Description 02/08/2024 10:00 AM EST Office Visit Hematology/Oncology at [address] [phone] Keisha Rodriguez APRN [address] [place] [address] [place] [address] 02/08/2024 10:30 AM EST Infusion Hematology Oncology at [address] [phone] 02/13/2024 10:00 AM EST Office Visit General Surgery at [address] [phone] Leticia Lieberman MD [address] [place] [address] 11/06/2069 Hospital Encounter Out[place] [phone] Philly Zuluaga MD [facility] DR OBSTETRICS [place] [address] Scheduled Procedures Name Priority Associated Diagnoses Date/Ti me HYSTEROSCOPY, SURG W/ENDOMET RIAL SAMPLING, POLYPECTOMY (WRVU 4.17) Thickened endometrium documented as of this encounter Visit Diagnoses Not on filedocumented in this encounter Care Teams Cloth Examiner Hand Relationship Specialty Start Date End Date Dane Rick [address] [place] [phone] PCP - General Family Medicine 03/05/23 documented as of this encounter
--- OUTSIDE RECORDS SUMMARY | 2024-02-08 01:05 | XMS_ITS | Encounter Summary ---
Author Organization [facility] Address [facility] [place] [address] Care Team Providers Care Naturopath Name Role Phone Dane Rick Primary Care Provider [phone] Reason for Visit * Reason Comments Simulation Encounter Details Date Type Department Care Team (Late Contact Info) Description 07/10/2023 3:00 PM EDT Office Visit Radiation Oncology at [address] [phone] Ann James MD [facility] [place] [address] Malignant neoplasm of lower-outer quadrant of right [...] Notes * Ann James MD - 07/10/2023 3:00 PM EDT In to start xrt. Beams not aligning. Resim done. Start xrt 1-2 wks. MRI T & L spine, esophagram & pelvic US 07/20/[address] findings. documented in this encounter Plan of Treatment Upcoming Encounters Date Type Department Care Team (Late Contact Info) Description 02/08/2024 10:00 AM EST Office Visit Hematology/Oncology at [address] [phone] Keisha Rodriguez APRN [address] [place] [address] DR MEDICAL ONCOLOGY [place], [place] [id number] 02/08/2024 10:30 AM EST Infusion Hematology Oncology at [address] [phone] 02/13/2024 10:00 AM EST Office Visit General Surgery at [address] [phone] Leticia Lieberman MD [address] [place] [address] 11/06/2069 Hospital Encounter Outpatient [place] [address] Philly Zuluaga MD [facility] OBSTETRICS [place] [address] Scheduled Procedures Name Priority Associated Diagnoses Date/Ti me HYSTEROSCOPY, SURG W/ENDOMET RIAL SAMPLING, POLYPECTOMY (WRVU 4.17) Thickened endometrium documented as of this encounter Visit Diagnoses Diagnosis Malignant neoplasm of lower-outer quadrant of right breast of female, estrogen receptor positive documented in this encounter Care Teams Naturopath Relationship Specialty Start Date End Date Dane Rick [address] [place] [phone] PCP - General Family Medicine 03/05/23 documented as of this encounter
--- OUTSIDE RECORDS SUMMARY | 2024-02-08 01:05 | XMS_ITS | Encounter Summary ---
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, estrogen receptor positive; Thickening of esophagus Social History Tobacco Use Types Packs/Day Years [...] AM EST Office Visit Hematology/Oncology at [address] [phone] Keisha Rodriguez APRN [address] [place] [address] DR MEDICAL ONCOLOGY [place], [place] [address] 02/08/2024 10:30 AM EST Infusion Hematology Oncology at [address] [phone] 02/13/2024 10:00 AM EST Office Visit General Surgery at [place] [address] [place] [address] Leticia Lieberman MD [address] [facility] [place] [address] 11/06/2069 Hospital Encounter [place] [phone] Philly Zuluaga MD [facility] DR OBSTETRICS [place] [address] Scheduled Orders Name Type Priority Associated Diagnoses Orde r Schedule Creatinine Lab Routine Malignant neoplasm of lower-outer quadrant of right breast of female, estrogen receptor positive Thickening of esophagus Expected: 07/03/2023, Expires: 01/02/2024 Scheduled Procedures Name Priority Associated Diagnoses Date/Ti me HYSTEROSCOPY, SURG W/ENDOMET RIAL SAMPLING, POLYPECTOMY (WRVU 4.17) Thickened endometrium documented as of this encounter Visit Diagnoses Diagnosis Increased endometrial stripe thickness Nonspecific (abnormal) findings on radiological and other examination of genitourinary organs Malignant neoplasm of lower-outer quadrant of right breast of female, estrogen receptor positive Thickening of esophagus Other specified disorder of the esophagus documented in this encounter Care Teams Chemist Assistant Relationship Specialty Start Date End Date Dane Rick [address] [place] [phone] PCP - General Family Medicine 03/05/23 documented as of this encounter
--- OUTSIDE RECORDS SUMMARY | 2024-02-08 01:05 | XMS_ITS | Encounter Summary ---
[place] [address] Care Team Providers Care Alligator Shear Operator Name Role Phone Dane Rick Primary Care Provider Encounter Details Date Type Department Care Team (Latest Contact Info) Description 08/08/2023 Travel Social History Tobacco Use Types Packs/Day [...] 10:00 AM EST Office Visit Hematology/Oncology at [address] [phone] Keisha Rodriguez APRN [address] [place] [address] [place] [address] 02/08/2024 10:30 AM EST Infusion Hematology Oncology at [address] [phone] 02/13/2024 10:00 AM EST Office Visit General Surgery at [address] [phone] Leticia Lieberman MD [address] [place] [address] 11/06/2069 Hospital Encounter Outpatient [place] [address] Philly Zuluaga MD [facility] DR OBSTETRICS [place] [address] Scheduled Procedures Name Priority Associated Diagnoses Date/Ti me HYSTEROSCOPY, SURG W/ENDOMET RIAL SAMPLING, POLYPECTOMY (WRVU 4.17) Thickened endometrium documented as of this encounter Visit Diagnoses Not on filedocumented in this encounter Care Teams Alligator Shear Operator Relationship Specialty Start Date End Date Dane Rick [address] [place] [phone] PCP - General Family Medicine 03/05/23 documented as of this encounter
--- OUTSIDE RECORDS SUMMARY | 2024-02-08 01:05 | XMS_ITS | Encounter Summary ---
Author Organization [facility] Address [facility] [place] [address] Care Team Providers Care Fruit Distributor Name Role Phone Dane Rick Primary Care Provider [phone] Encounter Details Date Type Department Care Team (Late Contact Info) Description 07/20/2023 11:35 PM EDT Ancillary Procedure Radiology Library at [facility] [place] [phone] [facility] [place] [address] Social History Tobacco Use Types Packs/Day Years [...] 10:00 AM EST Office Visit Hematology/Oncology at [address] [phone] Keisha Rodriguez APRN [address] [place] [address] DR MEDICAL ONCOLOGY [place], [place] [address] 02/08/2024 10:30 AM EST Infusion Hematology Oncology at [address] [phone] 02/13/2024 10:00 AM EST Office Visit General Surgery at [address] [phone] Leticia Lieberman MD [address] [place] [address] [place] [address] 11/06/2069 Hospital Encounter Outpatient Surgery Center [facility] [place] [address] [facility] DR OBSTETRICS [place] [address] Scheduled Procedures Name Priority Associated Diagnoses Date/Ti me HYSTEROSCOPY, SURG W/ENDOMET RIAL SAMPLING, POLYPECTOMY (WRVU 4.17) Thickened endometrium documented as of this encounter Procedures Procedure Name Priority Date/Time Associated Diagnosis Comments FILM LIBRARY STORAGE ONLY MR SPINE Routine 07/20/2023 11:33 PM EDT documented in this encounter Results * Film Library- Storage Only MR Spine (07/20/2023 11:33 PM EDT) Narrative [facility] - 07/20/2023 11:33 PM EDT This exam is auto-finalizing. It's purpose is for storage only. Ann James MD [facility] FILM LIBRARY ORD ERABLES Performing Organization Address City/State/[facility] Co de Phone Number [place], [place] documented in this encounter Visit Diagnoses Not on filedocumented in this encounter Care Teams Fruit Distributor Relationship Specialty Start Date End Date Dane Rick [address] [place] [phone] PCP - General Family Medicine 03/05/23 documented as of this encounter
--- OUTSIDE RECORDS SUMMARY | 2024-02-08 01:05 | XMS_ITS | Encounter Summary ---
Author Organization [facility] Address [facility] [place] [address] Care Team Providers Care Brimmer Blocker Name Role Phone Dane Rick Primary Care Provider [phone] Encounter Details Date Type Department Care Team (Late Contact Info) Description 07/03/2023 Orders Only Radiation Oncology at [address] [phone] Ann James MD [facility] DR [place] [address] Increased endometrial stripe thickness; Malignant neoplasm of [...] AM EST Office Visit Hematology/Oncology at [address] [phone] Keisha Rodriguez APRN [address] [place] [address] DR MEDICAL ONCOLOGY [place], [place] [address] 02/08/2024 10:30 AM EST Infusion Hematology Oncology at [address] [phone] 02/13/2024 10:00 AM EST Office Visit General Surgery at [place] [address] [place] [address] Leticia Lieberman MD [address] [facility] [place] [address] 11/06/2069 Hospital Encounter [place]patient [place] [phone] Philly Zuluaga MD [facility] DR OBSTETRICS [place] [address] Scheduled Orders Name Type Priority Associated Diagnoses Orde r Schedule XR Fluoro Esophagram (Double Contrast) Imaging Routine Malignant neoplasm of lower-outer quadrant of right breast of female, estrogen receptor positive Thickening of esophagus Expected: 07/06/2023, Expires: 01/05/2024 Scheduled Procedures Name Priority Associated Diagnoses Date/Ti [...] esophagus documented in this encounter Care Teams Brimmer Blocker Relationship Specialty Start Date End Date Dane Rick [address] [place] [phone] PCP - General Family Medicine 03/05/23 documented as of this encounter
--- OUTSIDE RECORDS SUMMARY | 2024-02-08 01:06 | XMS_ITS | Encounter Summary ---
[place] [address] Care Team Providers Care Division Sergeant Name Role Phone Dane Rick Primary Care Provider [phone] Encounter Details Date Type Department Care Team ([facility] st Contact Info) Description 03/14/2023 Telephone General Surgery at [place] [address] [place] [phone] Leticia Lieberman MD 100 [place] [address] Social History Tobacco Use Types Packs/Day Years Used Date Smoking Tobacco: Never Assessed Sex and Gender Information Value Date Recorded Sex Assigned at Not on file Gender Identity Not on file Sexual Orientation Not on file documented as of this encounter Miscellaneous Notes * Telephone Encounter - Heaven Delgado RN - 03/14/2023 1:50 PM EST Returned call to Kenyatta (name and verified) to discuss referral an get additional information.Her daughter Adriana also present on the call in the background. Let patient know that I saw that she was scheduled for surgery and spoke with Diamond in [place] office about the referral. Patient states that she cancelled the surgery as she was not sure if that was what should happen. She reported that she was upset because the radiologist told her right after mammogram that she needs a mastectomy,also it took a long time to have the follow up imaging and biopsy. She also states that she has gotten multiple calls about records and can't get to the bottom of where the hold up is. I let her knowthat currently, I do not see any imaging (pictures) in our system but do have the pathology report and some of the radiology reports. We had a lengthy discussion about (above concerns) and that per pathology report, she does have breast cancer which is IDC/ ER+/KS-/HER2 neg. Also discussed that ultimately, decision about surgery is between her and her doctor not the radiologist. Additionally, providers can make recommendations for treatment, but ultimately it is the patient's decision about what type of treatment/ surgery they will have. Kenyatta denies prior breast cancer history or family history of cancers. Offered for Kenyatta to schedule appt with Dr Lieberman for 2nd opinion and that this way she will be able to make a decision about the provider and their recommendations (which can be the same or sometimes different). Kenyatta in agreement and appt scheduled for 03/22/23 at 1pm. She was asked to arrive 30min before appt to register and fill out new patient forms. We confirmed office location. I let her know that we will work on getting her imaging. * Telephone Encounter - Daniella Parisi - 03/14/2023 11:12 AM EST Images from the original note were not included. Pt returned MA call. [phone] Roland Sultana CMA routed this conversation to Heaven Delgado, Roland Jean CMA to Kenyatta Vizcaino 03/12/23 11:13 AM LM for pt to call back to discuss her wanting a referral to . Pt is scheduled for surgery tomorrow at [facility] (03/13/23) for surgery. documented in this encounter Plan of Treatment Upcoming Encounters Date Type Department Care Team (Late st Contact Info) Description 02/08/2024 10:00 AM EST Office Visit Hematology/Oncology at [address] [phone] Keisha Rodriguez APRN [address] [place] [address] DR MEDICAL ONCOLOGY [place], [place] [phone] 02/08/2024 10:30 AM EST Infusion Hematology Oncology at [address] [phone] 02/13/2024 10:00 AM EST Office Visit General Surgery at [address] [phone] Leticia Lieberman MD [address] [place] [address] 11/06/2069 Hospital Encounter [place]patient [place] [phone] Philly Zuluaga MD [facility] DR OBSTETRICS [place] [address] Scheduled Procedures Name Priority Associated Diagnoses Date/Ti me HYSTEROSCOPY, SURG W/ENDOMET RIAL SAMPLING, POLYPECTOMY (WRVU 4.17) Thickened endometrium documented as of this encounter Visit Diagnoses Not on filedocumented in this encounter Care Teams Division Sergeant Relationship Specialty Start Date End Date Dane Rick [address] [place] [phone] PCP - General Family Medicine 03/05/23 documented as of this encounter
--- OUTSIDE RECORDS SUMMARY | 2024-02-08 01:06 | XMS_ITS | Encounter Summary ---
Author Organization [facility] [place] [address] Care Team Providers Care Wood Gluer Name Role Phone tOis Gee MD Primary Care Provider Unava ilable Encounter Details Date Type Department Care Team (Late st Contact Info) Description 01/23/2023 12:05 AM EDT Ancillary Procedure Radiology Library at [facility] [place] [phone] [place] [phone] Social History Tobacco Use Types Packs/Day Years [...] 10:00 AM EST Office Visit Hematology/Oncology at [address] [phone] Keisha Rodriguez APRN [address] [place] [address] [place] [address] 02/08/2024 10:30 AM EST Infusion Hematology Oncology at [address] [phone] 02/13/2024 10:00 AM EST Office Visit General Surgery at [address] [phone] Leticia Lieberman MD [address] [place] [address] 11/06/2069 Hospital Encounter Outpatient [place] [phone] Philly Zuluaga MD [facility] DR OBSTETRICS [place] [address] Scheduled Procedures Name Priority Associated Diagnoses Date/Ti me HYSTEROSCOPY, SURG W/ENDOMET RIAL SAMPLING, POLYPECTOMY (WRVU 4.17) Thickened endometrium documented as of this encounter Procedures Procedure Name Priority Date/Time Associated Diagnosis Comments FILM LIBRARY-STORAGE ONLY US BREAST Routine 01/23/2023 12:05 AM EDT documented in this encounter Results * Film Library Storage Only US Breast (01/23/2023 12:05 AM EDT) Narrative [facility] - 03/17/2023 11:47 PM EST This exam is auto-finalizing. It's purpose is for storage only. Dane Rick Shara FILM LIBRARY ORD ERABLES [place], [place] documented in this encounter Visit Diagnoses Not on filedocumented in this encounter Care Teams Wood Gluer Relationship Specialty Start Date End Date Otis Gee MD PCP - General 02/22/10 03/04/23 documented as of this encounter
--- OUTSIDE RECORDS SUMMARY | 2024-02-08 01:06 | XMS_ITS | Encounter Summary ---
Author Organization [facility] Address [address] [place] [address] Care Team Providers Care Project Consultant Name Role Phone Dane Rick MD Primary Care Provider [phone] Leticia Lieberman Unavailable Mendoza Guzmán MD Unavailable [phone] Reason for Visit * Reason Comments Chronic Medical Issues MMI, SI, Arthriti s Encounter Details Date Type Department Care Team ([facility] Contact Info) Description 01/29/2024 12:15 EDT Office Visit [facility] Family Medicine [address], [address] [place] [address] Dane Rick MD [address] [facility] [place] [address] [place] [address] Depression with anxiety (Primary Dx); Malignant neoplasm of upper-outer quadrant of right breast in female, estrogen receptor positive (HCC-CMS); Chronic pain of left knee Social History Tobacco Use Types Packs/Day Years Used Date Smoking Tobacco: Never Smokeless Tobacco: Never Tobacco Cessation:Counseling Given: Not Answered Alcohol Use Standard Drinks/Week Comments Yes 0 (1 standard drink = 0.6 oz pur e alcohol) occasionally Overall Financial Resource Strain (CARDIA) Answe r Date Recorded How hard is it for you to pa y for the very basics like food, housing, medical care, and heating? Somewhat hard 03/15/2023 PHQ-2 Answer Date Recorded PHQ-2 SUBTOTAL 0 01/29/2024 Hunger Vital Sign Answer Date Recorded Within the past 12 months, y ou worried that your food would run out before you got the money to buy more. Sometimes true Within the past 12 months, t he food you bought just didn't last and you didn't have money to get more. Sometimes true PRAPARE - Transportation Answer Date Re corded In the past 12 months, has l ack of transportation kept you from medical appointments or from getting medications? No 03/02 In the past 12 months, has l ack of transportation kept you from meetings, work, or from getting things needed for daily living? No 03/15/2023 Housing Stability Vital Sign Answer Lenard e Recorded In the last 12 months, was t here a time when you were not able to pay the mortgage or rent on time? No 03/15/2023 In the last 12 months, how many places have you lived? 1 03/15/2023 In the last 12 months, was t here a time when you did not have a steady place to sleep or slept in a chcf (including now)? No 03/15/2023 Interpersonal Safety Answer Date Record ed How often does anyone, elaina gutierrez family, hit, punch or physically hurt you? Never 03/15/2023 How often does anyone, elaina gutierrez family, insult, scream, curse or threaten to hurt you? Never 03/15/2023 Sex and Gender Information Value Date Recorded Sex Assigned at Not on file Gender Identity Female 02/28/2019 7:38 EST Sexual Orientation Not on file documented as of this encounter Last Filed Vital Signs Vital Sign Reading Time Taken Comments Blood Pressure 188/73 01/29/2024 1225 EDT Pulse 50 01/29/2024 1225 EDT Temperature - - Respiratory Rate 16 01/29/2024 1219 EDT Oxygen Saturation 98% 01/29/2024 1219 EDT Inhaled Oxygen Concentration - - Weight 64.9 kg (143 lb) 01/29/2024 1219 EDT Height - - Body Mass Index 28.88 12/30/2023 0952 EDT documented in this encounter Functional Status Functional Status Response Date of Assess ment Are you deaf or do you have serious difficulty h earing? No 12/30/2023 Are you blind or do you have serious difficulty seeing, even when wearing glasses? No 03/21/2021 Do you have serious difficul ty walking or climbing stairs? (5 years old or older) No 03/21/2021 Do you have difficulty dress ing or bathing? (5 years old or older) No 03/21/2021 Because of a physical, menta l, or emotional condition, do you have difficulty doing errands alone such as visiting a doctor's office or shopping? (15 years old or older) No 03/21/2021 Cognitive Status Response Date of Assessm ent Because of a physical, menta l, or emotional condition, do you have serious difficulty concentrating, remembering, or making decisions? (5 years old or older) No 03/21/2021 documented as of this encounter Progress Notes * Dane Rick MD - 01/29/2024 1215 EDT Patient Name: Kenyatta Vizcaino Age: 83 y.o. Date: 01/29/24 Assessment & Plan Blurry Vision New onset of blurry vision over the past few months. Last eye exam was in July or July. Patient is on Letrozole which can cause vision changes -Refer to chalk molding machine operator for evaluation. consider executive recruiter for further evaluation. Arthritis Chronic knee pain, previously improved with steroid injection. Patient reports improvement with useof a wave watch. -Administered Kenalog injection in the knee today. Cancer Care Coordination Patient expresses feeling lost in her cancer care since her oncologist left the practice. [place] [facility]Encourage patient to establish for cancer care coordination. Follow-up in 3 months to ensure continuity of care. Venous Insufficiency Patient has dilated veins and discoloration in the lower extremities, likely due to venous insufficiency. -Reassure patient that this is not a health concern and is more of a cosmetic issue. General Health Maintenance -Continue Letrozole as prescribed for cancer treatment HTN Elevated HTN in office, not addressed at visit today as patient had other priorities. No concerningsymptoms. Patient will call our office or schedule appt if BP consistently greater than 150/90 For any new medications prescribed today, patient was educated about indications for the medication, how to take the medication and potential side effects of the medications. SUBJECTIVE Kenyatta Vizcaino is a 83 y.o. female here for: Chief Complaint Patient presents with Chronic Medical Issues MMI, SI, Arthritis History of Present Illness The patient, a 41-year-old individual, presented with a sore throat and fatigue that began on Sunday. The patient's son was recently diagnosed with strep throat, raising concerns about a possible infection. The patient's symptoms have persisted, leading to a feeling of general malaise. In addition, the patient reported a recent change in vision, describing it as blurry. This change has been ongoing for several months and has not improved despite a recent eye examination. The patient also reported a sudden onset of extreme tiredness, which is uncharacteristic for her. The patient has a history of arthritis and has been experiencing pain in the knee. She reported that a previous steroid injection provided relief for approximately 20 years. Recently, the patient hasnoticed dilated veins and discoloration in the lower extremities, particularly around the feet and ankles. The patient also has a history of cancer and has been undergoing treatment, including radiation andletrozole. However, she expressed concern about a lack of coordination in her care since her oncologist left the practice. The patient reported feeling unwell since her last radiation treatment and has been experiencing stomach problems in the last week or two. The patient has been managing her arthritis with a wearable device, which she reported has been effective. She also mentioned a recent skin issue, with a persistent area of discoloration that has nothealed. The patient's family member expressed concern about potential side effects of the patient's medication, specifically letrozole, and whether it could be contributing to the patient's vision changes and osteoporosis. The patient expressed a preference for natural treatments and has been taking turkeytail, a type of mushroom, in addition to her prescribed medications. Review of Systems ALLERGIES/INTOLERANCES Allergies Allergen Reactions Amoxicillin-Pot Clavulanate Rash Atorvastatin Muscle Aches Flagyl [Metronidazole] Metoprolol Other (See Comments) heart failure? Penicillins Rash Zithromax [Azithromycin] OBJECTIVE Vitals: 01/29/24 1219 01/29/24 1225 BP: (!) 209/74 (!) 188/73 BP Cuff Location: Left arm Left arm BP Patient Position: Sitting Sitting BP Cuff Sizes: Adult, regular Adult, regular Pulse: 53 50 Resp: 16 SpO2: 98% Weight: 64.9 kg (143 lb) General appearance - alert, well appearing Respiratory- no increased work of breathing I discussed with patient the use of this audio recording tool to create a clinical note. I explained the benefits of the technology, such as time savings and a better patient experience. I explained that the recording will be confidential and converted into a written note which I will review and edit as needed before it is saved in the medical record. The patient expressed an understanding of theuse of this technology for clinical documentation and agreed to allow its use for this encounter. 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, estrogen receptor positive (HCC-CMS) Chronic pain of left knee Pain in joint, lower leg documented in this encounter Administered Medications Inactive Administered Medications - up to 3 most recent administrations Medication Order MAR Action Action Date Dose Rate Site lidocaine (PF) 10 mg/mL (1 %) injection 3 mL 3 mL, injection, NOW X1, 1 dose, On Sun01/29/24 at 1430, Routine Given 01/29/2024 14:22 EDT 3 mL documented in this encounter Discontinued Medications Medication Sig Discontinue Reason Start Date End Da te ergocalciferol, vitamin D2, (VITAMIN D ORAL) Take 1 Tablet by mouth daily at 1200. Alternate therapy 01/22/2024 hydrOXYzine (ATARAX) 25 mg tablet Take 1 Tablet by mouth 3 times daily as needed for Itching. Patient Stopped Taking 09/19/2022 01/29/2024 MAGNESIUM GLUCONATE ORAL Take 1 Tablet by mouth daily at 1200. Alternate therapy 01/29/2024 mirtazapine (REMERON) 7.5 mg tabletIndications:Situ ational mixed anxiety and depressive disorder Take 0.5 Tablets by mouth at bedtime. 11/12/2023 01/29/2024 documented as of this encounter Historical Medications * This list may reflect changes made after this encounter. Medication Sig Dispensed Refills Start Date End Date MAGNESIUM GLYCINATE ORAL Take 1 Tablet by mouth daily at 1200. cholecalciferol, Vitamin D3, 25 mcg (1,000 unit) tablet Take 1 Tablet by mouth daily. added in this encounter Orders Medications Ordered That Salbador ht Not Have Been Administered Count Last Ordered Date First Ordered Date triamcinolone acetonide (CHANCE ALOG-40) injection 40 mg 1 01/29/2024 documented in this encounter Care Teams Project Consultant Relationship Specialty Start Date End Date Dane Rick MD [address] [place] [address] [address] [place] [address] PCP - General Family Medicine - Primary Care 08/09/22 Leticia Lieberman [address] [place] [phone] General Surgery 04/03/23 Mendoza Guzmán MD [address] [place] [address] [address] [place] [address] Otolaryngology 04/03/23 documented as of this encounter
--- OUTSIDE RECORDS SUMMARY | 2024-02-08 01:06 | XMS_ITS | Encounter Summary ---
Author Organization [facility] [place] [address] Care Team Providers Care Design Painter Name Role Phone Otis Gee MD Primary Care Provider Unava ilable Encounter Details Date Type Department Care Team (Late st Contact Info) Description 01/23/2023 12:10 AM EDT Ancillary Procedure Radiology Library at [facility] [place] [phone] [place] [phone] Social History Tobacco Use Types Packs/Day Years [...] 10:00 AM EST Office Visit Hematology/Oncology at [address] [phone] Keisha Rodriguez APRN [address] [place] [address] [place] [address] 02/08/2024 10:30 AM EST Infusion Hematology Oncology at [address] [phone] 02/13/2024 10:00 AM EST Office Visit General Surgery at [address] [phone] Leticia Lieberman MD [address] [place] [address] 11/06/2069 Hospital Encounter Outpatient [place] [phone] Philly Zuluaga MD [facility] DR OBSTETRICS [place] [address] Scheduled Procedures Name Priority Associated Diagnoses Date/Ti me HYSTEROSCOPY, SURG W/ENDOMET RIAL SAMPLING, POLYPECTOMY (WRVU 4.17) Thickened endometrium documented as of this encounter Procedures Procedure Name Priority Date/Time Associated Diagnosis Comments FILM LIBRARY STORAGE ONLY ULTRASOUND STUDY Routine 01/23/2023 12:10 AM EDT documented in this encounter Results * Film Library- Storage Only Ultrasound Study (01/23/2023 12:10 AM EDT) Narrative GEORGI - 03/20/2023 3:54 AM EST This exam is auto-finalizing. It's purpose is for storage only. Dane Rick Shara FILM LIBRARY ORD ERABLES [place], [place] documented in this encounter Visit Diagnoses Not on filedocumented in this encounter Care Teams Design Painter Relationship Specialty Start Date End Date Otis Gee MD PCP - General 02/22/10 03/04/23 documented as of this encounter
--- OUTSIDE RECORDS SUMMARY | 2024-02-08 01:06 | XMS_ITS | Encounter Summary ---
[place] [address] Care Team Providers Care Prosthetic Technician Name Role Phone Dane Rick Primary Care Provider [phone] Reason for Referral * Consultation (Urgent) - Closed Specialty Diagnoses / Procedures Referred By Franky ferreira Referred To Contact Breast Clinic / Breast Center Diagnoses Invasive ductal carcinoma of breast, female, right NEW DIAGNOSIS OF BREAST CANCER Dane Rick [address] [place] [address] [address] [place] [address] [facility] [address] [place] [address] Referral ID Status Reason Start Date Expiration Date V isits Requested Visits Authorized [id number] Closed Consult, Test & Treat PCP Updated and/or Approved 03/05/2023 03/04/2024 6 6 Encounter Details Date Type Department Care Team (Latest Contact Info) Description 03/05/2023 Transcribe Orders eD Incoming Referrals [phone]ane Rick [address] [place] [address] Road [address] [place] [address] Infiltrating ductal carcinoma of breast, unspecified laterality; Invasive ductal carcinoma of breast, female, right Social History Tobacco Use Types Packs/Day Years [...] 10:00 AM EST Office Visit Hematology/Oncology at [address] [phone] Keisha Rodriguez APRN [address] [place] [address] [place] [address] 02/08/2024 10:30 AM EST Infusion Hematology Oncology at [address] [phone] 02/13/2024 10:00 AM EST Office Visit General Surgery at [address] [phone] Leticia Lieberman MD [address] [place] [address] 11/06/2069 Hospital Encounter Outpatient [place] [address] Philly Zuluaga MD [facility] OBSTETRICS [place] [address] Scheduled Procedures Name Priority Associated Diagnoses Date/Ti me HYSTEROSCOPY, SURG W/ENDOMET RIAL SAMPLING, POLYPECTOMY (WRVU 4.17) Thickened endometrium Scheduled Referrals Name Type Priority Associated Diagnoses Order Schedule Referral to Comprehensive Breast Program Outpatient Referral Urgent Invasive ductal carcinoma of breast, female, right Ordered: 03/05/2023 documented as of this encounter Visit Diagnoses Diagnosis Infiltrating ductal carcinoma of breast, unspecified laterality Invasive ductal carcinoma of breast, female, right documented in this encounter Care Teams Prosthetic Technician Relationship Specialty Start Date End Date Dane Rick [address] [place] [phone] PCP - General Family Medicine 03/05/23 documented as of this encounter
--- OUTSIDE RECORDS SUMMARY | 2024-02-08 01:06 | XMS_ITS | Encounter Summary ---
Author Organization [facility] [place] [address] Care Team Providers Care Server Assistant Name Role Phone Dane Rick Primary Care Provider [phone] Encounter Details Date Type Department Care Team (Late st Contact Info) Description 04/23/2023 Telephone General Surgery at [address] [phone] Leticia Lieberman MD [address] [place] [address] [place] [address] Social History Tobacco Use Types Packs/Day Years Used Date Smoking Tobacco: Never Smokeless Tobacco: Never Sex and Gender Information Value Date Recorded Sex Assigned at Not on file Gender Identity Not on file Sexual Orientation Not on file documented as of this encounter Miscellaneous Notes * Telephone Encounter - Heaven Delgado RN - 04/23/2023 12:23 PM EST Kenyatta called back to confirm that she can make the 04/25/23 appt at 3pm. She also wanted to confirm the location. She asked about [facility] and I let her know that this appt is at the [facility] (she stated that she was not sure which place this was). I let her know that our office is at [address] [place] [address], same place as her initial visit with Dr Lieberman. She states understanding and denies further questions. * Telephone Encounter - Heaven Delgado RN - 04/23/2023 12:13 PM EST RC to Kenyatta (name and verified) to reschedule appt and and answer questions about dressing. We scheduled appt for this 04/25/23 at 3pm (she will check with her daughter and call us back if need to change). Also let her know that she can remove the Tegaderm (clear) and gauze dressing from incision but to leave the steri strips (looks like masking tape) intact. She can shower over incisionand pat it dry after. We discussed that she should keep her surgical bra on at all times until her follow up appt. Kenyatta also wanted to share that Dr Lieberman did a great job (which I will share). Kenyatta states understanding of above information and denies further questions. * Telephone Encounter - Darrian Peña - 04/23/2023 10:06 AM ESTSummary: Post-Op Questions Patient returned call to reschedule post-op visit that was bumped and is also asking to speak with nurse regarding dressing the surgical site. Please assist with scheduling in appropriate time frame- fully booked for next 2 weeks. # [phone] Thank you documented in this encounter Plan of Treatment Upcoming Encounters Date Type Department Care Team (Late st Contact Info) Description 02/08/2024 10:00 AM EST Office Visit Hematology/Oncology at [address] [phone] Keisha Rodriguez APRN [address] [place] [address] DR MEDICAL ONCOLOGY [place], [place] [phone] 02/08/2024 10:30 AM EST Infusion Hematology Oncology at [address] [phone] 02/13/2024 10:00 AM EST Office Visit General Surgery at [address] [phone] Leticia Lieberman MD [address] [place] [address] [place] [address] 11/06/2069 Hospital Encounter Outpatient [place] [address] Philly Zuluaga MD [facility] DR OBSTET[place]ICS [place] [address] Scheduled Procedures Name Priority Associated Diagnoses Date/Ti me HYSTEROSCOPY, SURG W/ENDOMET RIAL SAMPLING, POLYPECTOMY (WRVU 4.17) Thickened endometrium documented as of this encounter Visit Diagnoses Not on filedocumented in this encounter Care Teams Server Assistant Relationship Specialty Start Date End Date Dane Rick [address] [place] [phone] PCP - General Family Medicine 03/05/23 documented as of this encounter
--- OUTSIDE RECORDS SUMMARY | 2024-02-08 01:06 | XMS_ITS | Encounter Summary ---
[place] [address] Care Team Providers Care Wind Energy Engineer Name Role Phone Dane Rick Primary Care Provider [phone] Encounter Details Date Type Department Care Team (Latest Contact Info) Description 04/17/2023 Travel Social History Tobacco Use Types Packs/Day [...] 10:00 AM EST Office Visit Hematology/Oncology at [address] [phone] Keisha Rodriguez APRN [address] [place] [address] [place] [address] 02/08/2024 10:30 AM EST Infusion Hematology Oncology at [address] [phone] 02/13/2024 10:00 AM EST Office Visit General Surgery at [address] [phone] Leticia Lieberman MD [address] [facility] [place] [address] 11/06/2069 Hospital Encounter Outpatient [place] [phone] Philly Zuluaga MD [facility] OBSTETRICS [place] [address] Scheduled Procedures Name Priority Associated Diagnoses Date/Ti me HYSTEROSCOPY, SURG W/ENDOMET RIAL SAMPLING, POLYPECTOMY (WRVU 4.17) Thickened endometrium documented as of this encounter Visit Diagnoses Not on filedocumented in this encounter Care Teams Wind Energy Engineer Relationship Specialty Start Date End Date Dane Rick [address] [place] [phone] PCP - General Family Medicine 03/05/23 documented as of this encounter
--- OUTSIDE RECORDS SUMMARY | 2024-02-08 01:06 | XMS_ITS | Encounter Summary ---
[place] [address] Care Team Providers Care Volunteer Services Supervisor Name Role Phone Dane Rick Primary Care Provider [phone] Encounter Details Date Type Department Care Team (Late Contact Info) Description 05/08/2023 Notes Only General Surgery at [address] [phone] Heaven Delgado RN Social History Tobacco Use Types Packs/Day Years Used Date Smoking Tobacco: Never Smokeless Tobacco: Never Sex and Gender Information Value Date Recorded Sex Assigned at Not on file Gender Identity Not on file Sexual Orientation Not on file documented as of this encounter Progress Notes * Heaven Delgado RN - 05/08/2023 8:06 AM EST Oncotype Dx order placed in [facility] portal. * Heaven Delgado RN - 05/08/2023 8:06 AM EST 05/17/[address] Lieberman aware of results. Results faxed to [facility] for scanning. documented in this encounter Plan of Treatment Upcoming Encounters Date Type Department Care Team (Late Contact Info) Description 02/08/2024 10:00 AM EST Office Visit Hematology/Oncology at [address] [phone] Keisha Rodriguez APRN [address] [place] [address] 02/08/2024 10:30 AM EST Infusion Hematology Oncology at [address] [phone] 02/13/2024 10:00 AM EST Office Visit General Surgery at [address] [phone] Leticia Lieberman MD [address] [place] [address] 11/06/2069 Hospital Encounter Outpatient [place] [address] Philly Zuluaga MD [facility] OBST[place] [address] Scheduled Procedures Name Priority Associated Diagnoses Date/Ti me HYSTEROSCOPY, SURG W/ENDOMET RIAL SAMPLING, POLYPECTOMY (WRVU 4.17) Thickened endometrium documented as of this encounter Visit Diagnoses Not on filedocumented in this encounter Care Teams Volunteer Services Supervisor Relationship Specialty Start Date End Date Dane Rick [address] [place] [phone] PCP - General Family Medicine 03/05/23 documented as of this encounter
--- OUTSIDE RECORDS SUMMARY | 2024-02-08 01:06 | XMS_ITS | Encounter Summary ---
Author Organization [facility] Address [facility] [place] [address] Care Team Providers Care Chairlift Operator Name Role Phone Dane Rick Primary Care Provider [phone] Reason for Referral * Consultation (Routine) - Closed Specialty Diagnoses / Procedures Referred By Franky ferreira Referred To Contact Hematology and Oncology Diagnoses Invasive ductal carcinoma of right breast Status post partial mastectomy of right breast Cortez Lieberman MD [address] [place] [phone] Rosanne Stauffer MD [facility] [place] [address] Referral ID Status Reason Start Date Expiration Date V isits Requested Visits Authorized [id number] Closed Consult, Test & Treat 04/17/2023 04/16/2024 1 1 Reason for Visit * Reason Comments Post Op S/p right parital ma stectomy 04/16 Encounter Details Date Type Department Care Team (Late st Contact Info) Description 04/17/2023 11:00 AM EST Office Visit General Surgery at [address] [phone] Cortez Lieberman MD [address] [place] [phone] Invasive ductal carcinoma of right breast (Primary Dx); Status post partial mastectomy of right breast Social History Tobacco Use Types Packs/Day Years Used Date Smoking Tobacco: Never Smokeless Tobacco: Never Sex and Gender Information Value Date Recorded Sex Assigned at Not on file Gender Identity Not on file Sexual Orientation Not on file documented as of this encounter Last Filed Vital Signs Vital Sign Reading Time Taken Comments Blood Pressure 122/60 04/17/2023 10:59 AM EST Pulse 63 04/17/2023 10:59 AM EST Temperature - - Respiratory Rate - - Oxygen Saturation 99% 04/17/2023 10:59 AM EST Inhaled Oxygen Concentration - - Weight 68.5 kg (151 lb) 04/17/2023 10:59 AM EST Height - - Body Mass Index 30.5 03/22/2023 1:00 PM EST documented in this encounter Progress Notes * Cortez Lieberman MD - 04/17/2023 11:00 AM EST Breast Surgical Oncology: Reason for Visit: right breast cancer HPI: Kenyatta is an 82y woman hx CVA on ASA, HTN, ABDOULAYE, ?CHF who presents with palpation detected IDC (ER+/KY-/HER2-) [id number] s/p right partial mastectomy 04/16/2023. She is feeling well. Not having much pain on the right side. Still having some pain on the left shoulder (present pre-op). Able to use her right arm some. She is accompanied by her daughter. She [...] no jaundice No family history on file. No past medical history on file. No past surgical history on file. Current Outpatient Medications: acetaZOLAMIDE (Diamox) 250 mg tablet, Take 250 mg by mouth 3 times daily., Disp: , Rfl: Ergocalciferol, Vitamin D2, 10 mcg (400 unit) Tablet, Take 1 tablet by mouth., Disp: , Rfl: MAGNESIUM GLUCONATE ORAL, Take 1 tablet by mouth., Disp: , Rfl: aspirin EC 81 mg EC (DR) tablet, Take 81 mg by mouth Every other day., Disp: , Rfl: furosemide (Lasix) 20 mg tablet, TAKE 2 TABLETS BY MOUTH ONCE DAILY IN THE MORNING AND 1 IN THE AFTERNOON, Disp: , Rfl: losartan (Cozaar) 100 mg tablet, Take 100 mg by mouth Daily., Disp: , Rfl: Allergies Allergen Reactions Atorvastatin Other (See Comments) Azithromycin Metoprolol Other (See Comments) heart failure? Metronidazole Penicillins Rash Physical Exam: Blood pressure 122/60, pulse 63, weight 68.5 kg (151 lb), SpO2 99%. General:pleasant, NAD Neuro: A and O x 3 HEENT: no thyromegaly CV: RRR RESP: Breathing is unlabored on room air, no wheezes or cough ABD: ND EXT: well perfused; 5/5 strength U and L ext Lymphatics: no supraclavicular,cervical, adenopathy. There is a single palpable right low axillary LN that is mobile. Unable to appreciate more extensive adenopathy on exam. Left Breast: no palpable masses, no skin changes, no nipple changes, +ptosis Right Breast: lateral incision with trace SS drainage on telfa. Well sealed. No palpable fluid collections. No erythema. Recent Imaging: no additional imaging Surgical pathology pending. Assessment & Plan: Kenyatta is an 82y woman with significant comorbidities who presents with a palpation detected rightIDC, intermediate grade ER+/[place]-/HER2-. [id number] She is now s/p right partial mastectomy 04/16. Doing well. - I emphasized post operative instructions that were printed for her yesterday: - No heavy lifting (>10lbs) x4 weeks - ROM <90 x1 week - No strenuous activity x4 weeks - Ok to shower afterwards - Ok to remove dressing in 3 days then shower over steri strips - Will be provided post op bra to be worn 24h/day except showering - Ok for personal bra (supportive, front closure) after 24 hours - No soaking in hot tub, bath, swimming x6 weeks until the incision is completely healed - Follow up as scheduled in about 10 days - In the meantime I will help her in finding an oncologist in [place], [place] with [facility] documented in this encounter Miscellaneous Notes * Addendum Note - Cortez Lieberman MD - 04/17/2023 11:00 AM ESTAddended by: CORTEZ LIEBERMAN on: 04/17/2023 02:12 PM Modules accepted: Orders documented in this encounter Plan of Treatment Upcoming Encounters Date Type Department Care Team (Late st Contact Info) Description 02/08/2024 10:00 AM EST Office Visit Hematology/Oncology at [address] [phone] Keisha Rodriguez APRN [address] [place] [address] [place] [address] 02/08/2024 10:30 AM EST Infusion Hematology Oncology at [address] [phone] 02/13/2024 10:00 AM EST Office Visit General Surgery at [address] [phone] Cortez Lieberman MD [address] [place] [address] 11/06/2069 Hospital Encounter Outpatient [place] [address] Philly Zuluaga MD [facility] OBSTETRICS [place] [address] Scheduled Procedures Name Priority Associated Diagnoses Date/Ti me HYSTEROSCOPY, SURG W/ENDOMET RIAL SAMPLING, POLYPECTOMY (WRVU 4.17) Thickened endometrium Scheduled Referrals Name Type Priority Associated Diagnoses Order Schedule Referral to Hematology and Oncology Outpatient Referral Routine Invasive ductal carcinoma of right breast Status post partial mastectomy of right breast Ordered: 04/17/2023 documented as of this encounter Visit Diagnoses Diagnosis Invasive ductal carcinoma of right breast- Primary Status post partial mastectomy of right breast documented in this encounter Care Teams Chairlift Operator Relationship Specialty Start Date End Date Dane Rick [address] [place] [phone] PCP - General Family Medicine 03/05/23 documented as of this encounter
--- OUTSIDE RECORDS SUMMARY | 2024-02-08 01:06 | XMS_ITS | Encounter Summary ---
[place] [address] Care Team Providers Care Refrigerator Room Clerk Name Role Phone Dane Rick Primary Care Provider [phone] Reason for Visit * Reason Comments Establish Care Chief Digital Officer consult 2nd opini on Encounter Details Date Type Department Care Team (Late st Contact Info) Description 03/22/2023 1:00 PM EST Office Visit General Surgery at [address] [phone] Leticia Lieberman MD [address] [place] [address] Invasive ductal carcinoma of right breast (Primary Dx); Arteriosclerotic cardiovascular disease; Congestive heart failure, unspecified HF chronicity, unspecified heart failure type Social History Tobacco Use Types Packs/Day Years Used Date Smoking Tobacco: Never Smokeless Tobacco: Never Tobacco Cessation:Counseling Given: Not Answered Sex and Gender Information Value Date Recorded Sex Assigned at Not on file Gender Identity Not on file Sexual Orientation Not on file documented as of this encounter Last Filed Vital Signs Vital Sign Reading Time Taken Comments Blood Pressure 163/61 03/22/2023 1:00 PM EST Pulse 61 03/22/2023 1:00 PM EST Temperature - - Respiratory Rate - - Oxygen Saturation 93% 03/22/2023 1:00 PM EST Inhaled Oxygen Concentration - - Weight 65.1 kg (143 lb 9.6 oz) 03/22/2023 1:00 P M EST Height 149.9 cm (4' 11) 03/22/2023 1:00 PM EST reported Body Mass Index 29 03/22/2023 1:00 PM EST documented in this encounter Progress Notes * Leticia Lieberman MD - 03/22/2023 1:00 PM EST Breast Surgical Oncology: Reason for Visit: right breast cancer HPI: Kenyatta is an 82y woman hx CVA on ASA, HTN, ABDOULAYE, ?CHF who presents with palpation detected IDC. She is here for a second opinion. Dr. Craig recommend partial mastectomy. She also has seen medical oncology who recommended upfront surgery and determination of chemotherapy by oncotype. She can feel a lump in her breast. She has noticed her right breast is smaller. She is accompanied by her daughter. She [...] surgical history on file. Current Outpatient Medications: Ergocalciferol, Vitamin D2, 10 mcg (400 unit) [...] mg by mouth Daily., Disp: , Rfl: MAGNESIUM GLUCONATE ORAL, Take 1 tablet by mouth., Disp: , Rfl: Allergies Allergen Reactions Atorvastatin Other (See Comments) Azithromycin Metoprolol Other (See Comments) heart failure? Metronidazole Penicillins Rash Physical Exam: Blood pressure 163/61, pulse 61, height 149.9 cm (4' 11), weight 65.1 kg (143 lb 9.6 oz), SpO2 93%. General:pleasant, NAD Neuro: A and O x [...] skin changes, no nipple changes, +ptosis Right Breast:Palpable 2cm mass lateral outer breast. Some tethering of overlying skin without frankinvolvement. Not fixed to chest wall. Recent Imaging (reviewed and interpreted personally): 01/24/23 Right breast diagnostic mammogram Density: B - Scattered Right: 9:00, 5cm FN, irregular spiculated mass - 2.8cm Left: No suspicious mass, architectural distortion or suspicious microcalcification US: 9:00, 5cm FN irregular hypoechoic mass [id number] - taller than wide, posterior acoustic shadowing. Adjacent 8x4x6 nodule, 1cm from primary lesion, suspicious for satellite lesion Right axilla: multiple abnormal lymph nodes present, including hypoechoic node 14x9x9 with near complete absence of fatty hilum CT chest/abd/pelvis w/bone scan: Thyroid nodule - stable from prior imaging No evidence of augustine metastatic disease Pathology: Ductal carcinoma Intermediate grade -LVI ER>90%/[place]-/HER2- Assessment & Plan: Kenyatta is an 82y woman with significant comorbidities who presents with a palpation detected rightIDC, intermediate grade ER+/OH-/HER2-. rN2H2O4 - We discussed breast cancer and its natural course. We discussed ductal carcinoma and receptors aswell as implication of HER2 result. We discussed breast cancer staging and prognosis. - We discussed her breast cancer team including myself, radiation oncology, medical oncology as well as expected therapies - I recommend staying closer to home for both medical oncology and radiation - We discussed the options for surgery, including partial mastectomy (paired with radiation), mastectomy (pending final pathology) without radiation +/- reconstruction - I will touch base with her medical oncologist to discuss fabian surgery if necessary given extensive staging work up - I will have us touch base with her PCP to discuss pre-op clearance given her comorbidities - We discussed the risks and benefits of surgery (right partial mastectomy +/- SLNB - Ciro) - Excise/treat mass and obtain final diagnosis - Bleeding, infection, injury to surrounding structures, need for further intervention - Unanticipated results - We discussed post operative expectations: - No heavy lifting (>10lbs) x4 weeks [...] incision is completely healed - Follow up the day after surgery prior to going home Approximately 10 minutes were spent on this chart review Approximately 55 minutes were spent with the patient, of which 50 minutes were spent counseling. 10 minutes were spent coordinating care documented in this encounter Plan of Treatment Upcoming Encounters Date Type Department Care Team (Late st Contact Info) Description 02/08/2024 10:00 AM EST Office Visit Hematology/Oncology at [address] [phone] Keisha Rodriguez APRN [address] [place] [address] [place] [address] 02/08/2024 10:30 AM EST Infusion Hematology Oncology at [address] [phone] 02/13/2024 10:00 AM EST Office Visit General Surgery at [address] [phone] Leticia Lieberman MD 100 [facility] [place] [address] 11/06/2069 Hospital Encounter Outpatient Surgery Center [facility] [place] [address] Philly Zuluaga MD [facility] DR OBSTETRICS [place] [address] Scheduled Procedures Name Priority Associated Diagnoses Date/Ti me HYSTEROSCOPY, SURG W/ENDOMET RIAL SAMPLING, POLYPECTOMY (WRVU 4.17) Thickened endometrium documented as of this encounter Visit Diagnoses Diagnosis Invasive ductal carcinoma of right breast- Primary Arteriosclerotic cardiovascular disease Unspecified cardiovascular disease Congestive heart failure, unspecified HF chronicity, unspecified heart failure type documented in this encounter Care Teams Refrigerator Room Clerk Relationship Specialty Start Date End Date Dane Rick [address] [place] [phone] PCP - General Family Medicine 03/05/23 documented as of this encounter
--- OUTSIDE RECORDS SUMMARY | 2024-02-08 01:06 | XMS_ITS | Encounter Summary ---
Author Organization [facility] [place] [address] Care Team Providers Care Chicken Vaccinator Name Role Phone Otis Gee MD Primary Care Provider Unava ilable Encounter Details Date Type Department Care Team (Late st Contact Info) Description 01/23/2023 Ancillary Procedure Radiology Library at [facility] [place] [phone] [phone] Social History Tobacco Use Types Packs/Day Years [...] AM EST Office Visit Hematology/Oncology at [address] [phone] Keisha Rodriguez APRN [address] [place] [address] [place] [address] 02/08/2024 10:30 AM EST Infusion Hematology Oncology at [address] [phone] 02/13/2024 10:00 AM EST Office Visit General Surgery at [address] [phone] Leticia Lieberman MD [address] [place] [address] 11/06/2069 Hospital Encounter Outpatient [place] [phone] Philly Zuluaga MD [facility] DR OBSTETRICS [place] [address] Scheduled Procedures Name Priority Associated Diagnoses Date/Ti me HYSTEROSCOPY, SURG W/ENDOMET RIAL SAMPLING, POLYPECTOMY (WRVU 4.17) Thickened endometrium documented as of this encounter Procedures Procedure Name Priority Date/Time Associated Diagnosis Comments FILM LIBRARY STORAGE ONLY MAMMO Routine 01/23/2023 12:00 AM EDT documented in this encounter Results * Film Library- Storage Only Mammo (01/23/2023 12:00 AM EDT) Narrative GEORGI - 03/17/2023 11:47 PM EST This exam is auto-finalizing. It's purpose is for storage only. Dane Rick Shara FILM LIBRARY ORD ERABLES [place], [place] documented in this encounter Visit Diagnoses Not on filedocumented in this encounter Care Teams Chicken Vaccinator Relationship Specialty Start Date End Date Otis Gee MD PCP - General 02/22/10 03/04/23 documented as of this encounter
--- OUTSIDE RECORDS SUMMARY | 2024-02-08 01:06 | XMS_ITS | Encounter Summary ---
[place] [address] Care Team Providers Care Environmental Field Office Manager Name Role Phone Dane Rick Primary Care Provider [phone] Encounter Details Date Type Department Care Team (Latest Contact Info) Description 03/22/2023 Travel Social History Tobacco Use Types Packs/Day [...] 10:00 AM EST Office Visit Hematology/Oncology at [address] [phone] Keisha Rodriguez APRN [address] [place] [address] [place] [address] 02/08/2024 10:30 AM EST Infusion Hematology Oncology at [address] [phone] 02/13/2024 10:00 AM EST Office Visit General Surgery at [address] [phone] Leticia Lieberman MD 100 [place] [address] 11/06/2069 Hospital Encounter [place] [phone] Philly Zuluaga MD [facility] OBSTETRICS [place] [address] Scheduled Procedures Name Priority Associated Diagnoses Date/Ti me HYSTEROSCOPY, SURG W/ENDOMET RIAL SAMPLING, POLYPECTOMY (WRVU 4.17) Thickened endometrium documented as of this encounter Visit Diagnoses Not on filedocumented in this encounter Care Teams Environmental Field Office Manager Relationship Specialty Start Date End Date Dane Rick [address] [place] [phone] PCP - General Family Medicine 03/05/23 documented as of this encounter
--- OUTSIDE RECORDS SUMMARY | 2024-02-08 01:06 | XMS_ITS | Encounter Summary ---
Author Organization [facility] [place] [address] Care Team Providers Care Tin Flopper Name Role Phone Dane Rick Primary Care Provider [phone] Encounter Details Date Type Department Care Team ([facility] Contact Info) Description 03/05/2023 Notes Only Hematology [place] [address] Diamond Jefferson Social History Tobacco Use Types Packs/Day Years Used Date Smoking Tobacco: Never Assessed Sex and Gender Information Value Date Recorded Sex Assigned at Not on file Gender Identity Not on file Sexual Orientation Not on file documented as of this encounter Progress Notes * Diamond Jefferson - 03/05/2023 1:28 PM EST Patient Name: Kenyatta Vizcaino Patient : 1940 Attn: [facility] Image Library From: [facility] - [phone] Fed-Ex# [id number] - Please overnight [x] Urgent [] For Review [] Please Reply [] Please Recycle Pursuant to the Federal Mammography Quality Standards Act-Section 900.12(c), (4), (ii) Comments: Please send all Digital Breast Images. Also include any other scans pertaining to Breast Cancer (CD, Films, Electronic Transfer & Reports) to [facility], [place] [address] If Questions call [phone] Notice of Confidentiality: The documents accompanying this FAX transmission cover contain information from [facility] that is confidential and privileged. The information is intended for the use of the individual or entity named on this transmittal sheet. If you are not the intended recipient, be aware that any disclosure, copying, distribution or use of the contents is prohibited. If you have received the FAX in error, please notify us by telephone (collect) immediately to permit us to arrange for the retrieval of the documents at no cost to you. documented in this encounter Plan of Treatment Upcoming Encounters Date Type Department Care Team (Late st Contact Info) Description 02/08/2024 10:00 AM EST Office Visit Hematology/Oncology at [address] [phone] Keisha Rodriguez APRN [address] [place] [address] DR MEDICAL ONCOLOGY [place], [place] [address] 02/08/2024 10:30 AM EST Infusion Hematology Oncology at [address] [phone] 02/13/2024 10:00 AM EST Office Visit General Surgery at [address] [phone] Leticia Lieberman MD [address] [place] [address] 11/06/2069 Hospital Encounter Outpatient [place] [address] Philly Zuluaga MD [facility] [place] [address] Scheduled Procedures Name Priority Associated Diagnoses Date/Ti me HYSTEROSCOPY, SURG W/ENDOMET RIAL SAMPLING, POLYPECTOMY (WRVU 4.17) Thickened endometrium documented as of this encounter Visit Diagnoses Not on filedocumented in this encounter Care Teams Tin Flopper Relationship Specialty Start Date End Date Dane Rick [address] [place] [phone] PCP - General Family Medicine 03/05/23 documented as of this encounter
--- OUTSIDE RECORDS SUMMARY | 2024-02-08 01:06 | XMS_ITS | Encounter Summary ---
Author Organization [facility] [place] [address] Care Team Providers Care Information Receptionist Name Role Phone Unavailable Primary Care Provider Unavailabl e Encounter Details Date Type Department Care Team (Late st Contact Info) Description 04/11/2007 Ancillary Procedure Radiology Library at [facility] [place] [address] Dane Rick [address] [place] [phone] Social History Tobacco Use Types Packs/Day Years [...] 10:00 AM EST Office Visit Hematology/Oncology at [address] [phone] Keisha Rodriguez APRN [address] [place] [address] [place] [address] 02/08/2024 10:30 AM EST Infusion Hematology Oncology at [address] [phone] 02/13/2024 10:00 AM EST Office Visit General Surgery at [address] [phone] Leticia Lieberman MD [address] [place] [address] 11/06/2069 Hospital Encounter Outpatient [place] [phone] Philly Zuluaga MD [facility] DR OBSTETRICS [place] [address] Scheduled Procedures Name Priority Associated Diagnoses Date/Ti me HYSTEROSCOPY, SURG W/ENDOMET RIAL SAMPLING, POLYPECTOMY (WRVU 4.17) Thickened endometrium documented as of this encounter Procedures Procedure Name Priority Date/Time Associated Diagnosis Comments FILM LIBRARY STORAGE ONLY MAMMO Routine 04/11/2007 12:00 AM EST documented in this encounter Results * Film Library- Storage Only Mammo (04/11/2007 12:00 AM EST) Narrative GHADA LAUREANO - 03/17/2023 11:47 PM EST This exam is auto-finalizing. It's purpose is for storage only. Dane KIM FILM LIBRARY ORD ERABLES GEORGI [place], [place] documented in this encounter Visit Diagnoses Not on filedocumented in this encounter
--- OUTSIDE RECORDS SUMMARY | 2024-02-08 01:06 | XMS_ITS | Encounter Summary ---
[place] [address] Care Team Providers Care Car Restorer Name Role Phone Dane Rick Primary Care Provider [phone] Encounter Details Date Type Department Care Team (Latest Contact Info) Description 05/01/2023 Travel Social History Tobacco Use Types Packs/Day [...] 10:00 AM EST Office Visit Hematology/Oncology at [address] [phone] Keisha Rodriguez APRN [address] [place] [address] [place] [address] 02/08/2024 10:30 AM EST Infusion Hematology Oncology at [address] [phone] 02/13/2024 10:00 AM EST Office Visit General Surgery at [address] [phone] Leticia Lieberman MD 100 [facility] [address] 11/06/2069 Hospital Encounter [place] [phone] Philly Zuluaga MD [facility] OBSTETRICS [place] [address] Scheduled Procedures Name Priority Associated Diagnoses Date/Ti me HYSTEROSCOPY, SURG W/ENDOMET RIAL SAMPLING, POLYPECTOMY (WRVU 4.17) Thickened endometrium documented as of this encounter Visit Diagnoses Not on filedocumented in this encounter Care Teams Car Restorer Relationship Specialty Start Date End Date Dane Rick [address] [place] [phone] PCP - General Family Medicine 03/05/23 documented as of this encounter
--- OUTSIDE RECORDS SUMMARY | 2024-02-08 01:06 | XMS_ITS | Encounter Summary ---
Author Organization [facility] [place] [address] Care Team Providers Care Manager Project Name Role Phone Otis Gee MD Primary Care Provider Unava ilable Encounter Details Date Type Department Care Team (Late st Contact Info) Description 03/02/2023 12:05 AM EST Ancillary Procedure Radiology Library at [facility] [place] [phone] [phone] Social History Tobacco Use Types Packs/Day Years [...] AM EST Office Visit Hematology/Oncology at [address] [phone] Keisha Rodriguez APRN [address] [place] [address] [place] [address] 02/08/2024 10:30 AM EST Infusion Hematology Oncology at [address] [phone] 02/13/2024 10:00 AM EST Office Visit General Surgery at [address] [phone] Leticia Lieberman MD [address] [place] [address] 11/06/2069 Hospital Encounter Outpatient [place] [phone] Philly Zuluaga MD [facility] DR OBSTETRICS [place] [address] Scheduled Procedures Name Priority Associated Diagnoses Date/Ti me HYSTEROSCOPY, SURG W/ENDOMET RIAL SAMPLING, POLYPECTOMY (WRVU 4.17) Thickened endometrium documented as of this encounter Procedures Procedure Name Priority Date/Time Associated Diagnosis Comments FILM LIBRARY STORAGE ONLY CT CHEST ABDOMEN PELVIS Routine 03/02/2023 12:05 AM EST documented in this encounter Results * Film Library- Storage Only CT Chest Abdomen Pelvis (03/02/2023 12:05 AM EST) Narrative [facility] - 03/20/2023 3:54 AM EST This exam is auto-finalizing. It's purpose is for storage only. Dane Rick Shara FILM LIBRARY ORD ERABLES [place], [place] documented in this encounter Visit Diagnoses Not on filedocumented in this encounter Care Teams Manager Project Relationship Specialty Start Date End Date Otis Gee MD PCP - General 02/22/10 03/04/23 documented as of this encounter
--- OUTSIDE RECORDS SUMMARY | 2024-02-08 01:06 | XMS_ITS | Encounter Summary ---
Author Organization [facility] [place] [address] Care Team Providers Care Sorting Machine Operator Name Role Phone Otis Gee MD Primary Care Provider Unava ilable Encounter Details Date Type Department Care Team (Late st Contact Info) Description 02/09/2023 Ancillary Procedure Radiology Library at [facility] [place] [address] [phone] Social History Tobacco Use Types Packs/Day Years [...] 10:00 AM EST Office Visit Hematology/Oncology at [address] [phone] Keisha Rodriguez APRN [address] [place] [address] [place] [address] 02/08/2024 10:30 AM EST Infusion Hematology Oncology at [address] [phone] 02/13/2024 10:00 AM EST Office Visit General Surgery at [address] [phone] Leticia Lieberman MD [address] [place] [address] 11/06/2069 Hospital Encounter [place]patient [place] [phone] Philly Zuluaga MD [facility] DR OBST[place] [address] Scheduled Procedures Name Priority Associated Diagnoses Date/Ti me HYSTEROSCOPY, SURG W/ENDOMET RIAL SAMPLING, POLYPECTOMY (WRVU 4.17) Thickened endometrium documented as of this encounter Visit Diagnoses Not on filedocumented in this encounter Care Teams Sorting Machine Operator Relationship Specialty Start Date End Date Otis Gee MD PCP - General 02/22/10 03/04/23 documented as of this encounter
--- OUTSIDE RECORDS SUMMARY | 2024-02-08 01:06 | XMS_ITS | Encounter Summary ---
Author Organization [facility] [place] [address] Care Team Providers Care Fiberglass Ski Maker Name Role Phone Otis Gee MD Primary Care Provider Unava ilable Encounter Details Date Type Department Care Team (Late st Contact Info) Description 03/02/2023 Ancillary Procedure Radiology Library at [facility] [place] [address] [phone] Social History Tobacco Use Types Packs/Day Years [...] 10:00 AM EST Office Visit Hematology/Oncology at [address] [phone] Keisha Rodriguez APRN [address] [place] [address] [place] [address] 02/08/2024 10:30 AM EST Infusion Hematology Oncology at [address] [phone] 02/13/2024 10:00 AM EST Office Visit General Surgery at [address] [phone] Leticia Lieberman MD [address] [place] [address] 11/06/2069 Hospital Encounter [place] [phone] Philly Zuluaga MD [facility] DR [place] [address] Scheduled Procedures Name Priority Associated Diagnoses Date/Ti me HYSTEROSCOPY, SURG W/ENDOMET RIAL SAMPLING, POLYPECTOMY (WRVU 4.17) Thickened endometrium documented as of this encounter Procedures Procedure Name Priority Date/Time Associated Diagnosis Comments FILM LIBRARY STORAGE ONLY NUCLEAR MEDICINE Routine 03/02/2023 12:00 AM EST documented in this encounter Results * Film Library- Storage Only nuclear medicine (03/02/2023 12:00 AM EST) Narrative [facility] - 03/20/2023 3:54 AM EST This exam is auto-finalizing. It's purpose is for storage only. Dane Rick Shara FILM LIBRARY ORD ERABLES [place], [place] documented in this encounter Visit Diagnoses Not on filedocumented in this encounter Care Teams Fiberglass Ski Maker Relationship Specialty Start Date End Date Otis Gee MD PCP - General 02/22/10 03/04/23 documented as of this encounter
--- OUTSIDE RECORDS SUMMARY | 2024-02-08 01:06 | XMS_ITS | Encounter Summary ---
[place] [address] Care Team Providers Care Sand Molder Name Role Phone Dane Rick Primary Care Provider [phone] Encounter Details Date Type Department Care Team (Late st Contact Info) Description 03/12/2023 Telephone General Surgery at [address] [phone] Roland Sultana, REJI Social History Tobacco Use Types Packs/Day Years [...] AM EST Office Visit Hematology/Oncology at [address] [phone] Keisha Rodriguez APRN [address] [place] [address] DR [place] [address] 02/08/2024 10:30 AM EST Infusion Hematology Oncology at [address] [phone] 02/13/2024 10:00 AM EST Office Visit General Surgery at [address] [phone] Leticia Lieberman MD [address] [place] [address] 11/06/2069 Hospital Encounter Outpatient [place] [phone] Philly Zuluaga MD [facility] OBSTETRICS [place] [address] Scheduled Procedures Name Priority Associated Diagnoses Date/Ti me HYSTEROSCOPY, SURG W/ENDOMET RIAL SAMPLING, POLYPECTOMY (WRVU 4.17) Thickened endometrium documented as of this encounter Visit Diagnoses Not on filedocumented in this encounter Care Teams Sand Molder Relationship Specialty Start Date End Date Dane Rick [address] [place] [phone] PCP - General Family Medicine 03/05/23 documented as of this encounter
--- OUTSIDE RECORDS SUMMARY | 2024-02-08 01:06 | XMS_ITS | Encounter Summary ---
Author Organization [facility] Address [address] [place] [address] Care Team Providers Care Water Technician Name Role Phone Vicky Chamberlain Unavailable [phone] Dane Rick MD Primary Care Provider Leticia Lieberman Unavailable Mendoza Guzmán MD Unavailable [phone] Reason for Visit * Reason Onset Date Comments Suicidal Ideation 01/17/2024 Encounter Details Date Type Department Care Team ([facility] st Contact Info) Description 01/17/2024 Telephone [facility] Family Medicine [address], [address] [place] [address] Dane Rick MD [address] [facility] [address] [place] [phone] Suicidal Ideation Social History Tobacco Use Types Packs/Day Years Used Date Smoking Tobacco: Never Smokeless Tobacco: Never Alcohol Use Standard Drinks/Week Comments Yes 0 (1 standard drink = 0.6 oz pur e alcohol) occasionally Overall Financial Resource Strain (CARDIA) Answe r Date Recorded How hard is it for you to pa y for the very basics like food, housing, medical care, and heating? Somewhat hard 03/15/2023 Hunger Vital Sign Answer Date Recorded Within [...] place to sleep or slept in a fdc (including now)? No 03/15/2023 Interpersonal Safety Answer [...] on file documented as of this encounter Functional Status Functional Status Response [...] No 03/21/2021 documented as of this encounter Miscellaneous Notes * Telephone Encounter - Dane Rick MD - 01/21/2024 1216 EDT Plan to discuss at next OV * Telephone Encounter - Nupur Benson RN - 01/21/2024 1126 EDT JI please discuss at upcoming ov. * Telephone Encounter - Zoila Shipman RN - 01/17/2024 0857 EDT Spoke to daughter, Adriana. Stated pt was not suicidal but was very upset regarding her care and inability to see her provider.She is a cancer pt and needs additional care at this time. RN edu daughter re concerning statements from pt, and that any indication of active or passive suicide thoughts is taken seriously. Edu on importance of reviewed and name to ensure correct chart is accessed. Daughter reaffirmed there is no concern for self harm. Stated pt was upset from this morning phone calls and VM that she laying down to calm down. Rn asked daughter if there was any concern re memory changes. Daughter denied. Declined memory testat JAN. Requested an order for a mammo When asked if they wanted it done at [facility] [place] or [facility], reports [facility]. RN confirmed NOV w CHIRAG for 01/28 12:15p. Daughter reports she provides transportation for pt and will be present at NOV. RN confirmed needed labs prior to OV. Daughter agreed to get them drawn at hospital. Offered OV for today w Chirag d/t cancellation. Unable to take, ok w keeping existing OV and not being placed on waitlist. Requested no more calls to the pt today. Offered Patient advocacy number to daughter d/t statements regarding displeasure w her care from PCP and communication w PCP office. Daughter declined number. After disconnecting the phone, further chart review indicates pt is followed hy [facility] for onc and they are scheduling her imaging (see 12/30 TE). This has previously been communicated to pt. Unsure if daughter is aware. * Telephone Encounter - Zoila Shipman RN - 01/17/2024 0804 EDT RN called pt back. Pt was tearful on the phone.Refused to confirm name or when asked, RN explained the importance of verifying pt ID. Pt stated I just talked to someone. I can't keep anything straight. Pt tearful. Did not engage when nurse attempted to speak to her and dc the call. RN called daughter Adriana (on JAMMIE). VM that pt was saying concerning things and should be checked on immediately. Left PCP number to callback. RN attempted to call pt again. Forwarded to . LVM requesting immediate callback, encouraged calling 911 if she needed immediate assistance. Front- if pt calls, please keep on the line, do not put on hold. Get nursing alisson. * Telephone Encounter - Arvind Mcdonald - 01/17/2024 0836 EDT Patient called and is requesting OV notes and all of the cancellations and times she has showed up and JI has not been in. Printed OV notes from 08/20/2023, and 10/05/2023. She states that she never sawJI on 10/05/2023... states that no one ever calls her when he is out of office.. states that whenevershe calls in she is on hold for over 45 minutes and then gets no one and hangs up. She states that sometimes she wishes she would and just get out of the way documented in this encounter Plan of Treatment Upcoming Encounters Date Type Department Care Team (Late st Contact Info) Description 05/19/2024 11:00 EST Office Visit [facility] Family Medicine [address], [address] [place], [place] [phone] Dane Rick MD [address] [place] [address] [address] [place] [phone] documented as of this encounter Visit Diagnoses Not on filedocumented in this encounter Care Teams Water Technician Relationship Specialty Start Date End Date Dane Rick MD [address] [place] [address] [address] [place] [phone] PCP - General Family Medicine - Primary Care 08[facility]09[facility]/12/22 01/22/24 Leticia Lieberman [address] [place] [phone] General Surgery 04/03/23 Mendoza Guzmán MD [address] [place] [address] [address] [place] [phone] Otolaryngology 04/03/23 documented as of this encounter
--- OUTSIDE RECORDS SUMMARY | 2024-02-08 01:06 | XMS_ITS | Referral Summary ---
Author Organization [facility] Address [address] [place] [address] Care Team Providers Care Academic Affairs Director Name Role Phone Dane Rick MD Primary Care Provider [phone] Leticia Lieberman Unavailable Mendoza Guzmán MD Unavailable [phone] Encounters Date Type Department Care Team Description 01/29/2024 12:15 EDT Office Visit [facility] [address], [address] [phone] Dane Rick MD Depression with anxiety (Primary Dx); Malignant neoplasm of upper-outer quadrant of right breast in female, estrogen receptor positive (HCC-CMS); Chronic pain of left knee 01/21/2024 Patient Outreach [address] [address] Vicky Chamberlain PUBLIC HEALTH TRAINING ASSISTANT 01/17/2024 Telephone [facility] [address], [address] [phone] Dane Rick MD Suicidal Ideation 01/11/2024 Patient Outreach [address] [address] Vicky Chamberlain LICSW 01/09/2024 Telephone [facility] [address], [address] [address] Dane Rick MD No Show; Letter 01/02/2024 Telephone [facility] [address], [address] [place], [place] [phone] Ara Mccullough, RN Post-ED Follow Up 01/01/2024 Patient Outreach [facility] [address] [place] [address] Vicky Chamberlain, PUBLIC HEALTH TRAINING ASSISTANT 12/31/2023 Telephone [facility] [address], [address], [place] [phone] Dane Rick MD Diagnostic Imaging Report 12/30/2023 9:44 EDT - 12/30/2023 13:19 EDT Emergency [facility] Emergency Department [address] [place] [address] Sidney Syed MD Other fatigue (Primary Dx) Discharge Disposition: Home or Self Care 12/13/2023 Patient Outreach [address] [address] Vicky Chamberlain, PUBLIC HEALTH TRAINING ASSISTANT 11/15/2023 Patient Outreach [address] [address] Vicky Chamberlain, PUBLIC HEALTH TRAINING ASSISTANT 11/14/2023 Telephone [facility] [address], [facility] [address] [place], [place] [phone] Lauren Wilde, RN Update 11/12/2023 13:00 EDT Office Visit [facility] [address], [facility] [address] [place], [place] [phone] Cristhian Madison, Situational mixed anxiety and depressive disorder (Primary Dx) 11/12/2023 Telephone [facility] [address], [facility] [address] [place] [address] Dane Rick MD Follow-up (ED follow up); Weakness 11/09/2023 Travel 11/09/2023 15:34 EDT - 11/09/2023 16:59 EDT Emergency [facility] Emergency Department [address] [facility] [place] [address] Celestino Padron MD Depression, unspecified depression type (Primary Dx); Widened pulse pressure; Hypertension, unspecified type Discharge Disposition: Home or Self Care 11/09/2023 Telephone [facility] [address], [address] [place] [address] Dane Rick MD Hypertension from Last 3 Months Allergies Active Allergy Reactions Criticality Noted Date Comments Amoxicillin-Pot Clavulanate Rash 11/13/2018 Atorvastatin Muscle Aches 06/29/2022 Metronidazole 01/01/2013 Metoprolol Other (See Comments) 11/13/2018 heart failure? Penicillins Rash 11/15/2010 Azithromycin 11/15/2010 Medications Medication Sig Dispensed Refills Start Date End Date Status aspirin 81 mg EC tablet Take 1 Tablet by mouth every 48 hours. 09/19/2022 Active furosemide (LASIX) 20 mg tablet Take 1 Tablet by mouth daily. 90 Tablet 04/03/2023 Active losartan (COZAAR) 100 mg tablet TAKE 1 TABLET BY MOUTH EVERY DAY 90 Tablet 3 08/14/2023 Active letrozole (FEMARA) 2.5 mg tablet Take 1 Tablet by mouth daily. 05/29/2023 Active LORazepam (ATIVAN) 0.5 mg tablet Take 2 Tablets by mouth 2 times daily. Active cholecalciferol, Vitamin D3, 25 mcg (1,000 unit) tablet Take 1 Tablet by mouth daily. Active MAGNESIUM GLYCINATE ORAL Take 1 Tablet by mouth daily at 1200. Active hydrOXYzine (ATARAX) 25 mg tablet Take 1 Tablet by mouth 3 times daily as needed for Itching. 60 Tablet 09/19/2022 4 Discontinued(Wendie ent Stopped Taking) ergocalciferol, vitamin D2, (VITAMIN D ORAL) Take 1 Tablet by mouth daily at 1200. 4 Discontinued(Alte rnate therapy) MAGNESIUM GLUCONATE ORAL Take 1 Tablet by mouth daily at 1200. 4 Discontinued(Alte rnate therapy) mirtazapine (REMERON) 7.5 mg tabletIndication s:Situational mixed anxiety and depressive disorder Take 0.5 Tablets by mouth at bedtime. 30 Tablet 1 11/12/2023 4 Discontinued Hospital, Clinic, or Other Facility Administered Medication Ordered Dose Route Frequency Start Date End Date Status triamcinolone acetonide (KENALOG-40) injection 40 mg 40 mg OTHER NOW X1 01/29/2024 01/30/2024 Ended lidocaine (PF) 10 mg/mL (1 %) injection 3 mL 3 mL INJECTION NOW X1 01/29/2024 01/29/2024 Ende d Active Problems Patient Care Coordination No te Formatting of this note migh t be different from the original. Patient has given permission for [facility] HEM/ONC to verbally discuss the following information with LAMIN NERI who has the following relationship to the patient: Son/Daughter: Scheduling/Appt/Billing/Payment Information (does not include clinical information unless specifically indicated with separate option) Medical Information including symptoms, diagnosis, medications, test results and treatment plan (does not include Mental Health unless specifically indicated with separate option) Mental Health (Behavioral,Psychiatric,Chemical Dependency) health information, including my symptoms, diagnosis, medications and treatment plan Permission remains in effect until the patient elects to revoke it.Per Resource Data Specially funded category for Qualified Medicare Beneficiaries. Should be loaded as Medicaid following Medicare PQ Category Mika Lance 07/18/2022 16:20 Patient has given permission for [facility] to verbally discuss the following information with Ankit Lopez, Ankit Lopez, Lamin Briseno & Jane Holden who has the following relationship to the patient: Spouse, grandson & children : Scheduling/Appt/Billing/Payment Information (does not include clinical information unless specifically indicated with separate option) Medical Information including symptoms, diagnosis, medications, test results and treatment plan (does not include Mental Health unless specifically indicated with separate option) Permission remains in effect until the patient elects to revoke it. 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 No recent bleeding or pain. Will get nonurgent pelvic US after breast surgery TMJ derangement 03/08/2023 Last Assessment & Plan: Soft food, bite guard at night, Tylenol for pain Malignant neoplasm of upper- outer quadrant of right breast in female, estrogen receptor positive ([facility]) 02/20/2023 Cancer Staging:Clinical:Stage IIB(cT2, cN1, cM0, G2, ER+, OK-, HER2-) - Signed by Xu Hendrix MD on 02/20/2023 Hypercalcemia 09/19/2022 Overview: Presumed hyperparathyroidism Present since 2016, (2017-calcium 10.4, 2019-calcium 11.4) 09/2022-calcium 11.3, PTH-208 Last Assessment & Plan: Noted on last CMP. Check labs today Left shoulder pain 09/19/2022 Last Assessment & Plan: Left shoulder and neck pain, possibly after fall. Poor historian. Exam unremarkable. X-rays ordered. PT ordered placed Chronic pain of left knee 09/19/2022 Last Assessment & Plan: X-rays with moderate osteoarthritis. Responded well to injections in the past. Recommended follow-up with Ortho for this. Also consider physical therapy. CVA (cerebral vascular accident) ([facility]) 03/21 Hemiplegia and hemiparesis f ollowing cerebral infarction affecting right dominant side ([facility]) 03/21/2021 Last Assessment & Plan: Discussed risks and benefits of aspirin given her stroke history. Patient affirms she would like to continue aspirin Congestive heart failure ([facility]) 02/22/2021 Nontoxic multinodular goiter 09/03/2020 Overview: Followed by ENT, stable as of 12/2022, ENT at [facility]-enlarging left thyroid nodule, status post FNA 01/2023 which was benign Left leg pain 09/04/2019 Last Assessment & Plan: Chronic for years. Point tenderness on exam. Normal xray in 2021. Unclear history, poor historian, reports bone disease decades ago fixed with tibial surgery but no notable findings on 2021 xrays. Shared decision to get more advanced imaging. I will discuss with radiology regarding appropriate imaging. Arteriosclerotic cardiovascular disease 05/06/19 Overview: 2013-left heart catheterization at [facility]-75% lesion in LAD-treated with drug- eluting stent 2020, echo at [facility] EF-60-65%, normal cardiac function Balance problem 05/06/2019 Chronic post-traumatic headache, not intractable 05/06/2019 Depression with anxiety 05/06/2019 Last Assessment & Plan: Discussed risks of Ativan, shared decision to trial Atarax Diverticular disease of colon 05/06/2019 Essential (primary) hypertension 05/06/2019 Last Assessment & Plan: Well-controlled on current meds, continue losartan Hypercholesterolemia 05/06/2019 Injury of head 05/06/2019 Obesity 05/06/2019 ABDOULAYE (obstructive sleep apnea) 05/06/2019 Traumatic brain injury with loss of consciousnes s ([facility]) 05/06/2019 Trigeminal neuralgia 05/06/2019 Unspecified rotator cuff tea r or rupture of right shoulder, not specified as traumatic 05/06/2019 Vertigo 05/06/2019 Resolved Problems Problem Noted Date Diagnosed Date Resolved Date Stroke determined by clinica l assessment ([facility]) 03/21/2021 09/19/2022 Immunizations Name Administration Dates Next Due Influenza H1N1 IM 12/13/2009 Influenza Vaccine =>3yo Split IM 01/30/2013,12/02 Influenza Vaccine =>3yo Split Preservative Free IM 02/06/2012,01/11/2009 Influenza Vaccine High Dose (FLUZONE HIGH DOSE) PF 0.7 ml IM (65 yrs+) 01/11/2018,01/24/2016 Influenza Vaccine Quad (AFLURIA) PF 0.5 ml IM (3 yrs+) 02/19/2017,01/07/2015 Pneumococcal Conjugate Vacci ne 13-Valent (PCV13) (PREVNAR-13) 0.5 mL IM (6 wks+) 01/07/2015 Pneumococcal Polysaccharide (PPSV23) Vaccine (PNEUMOVAX-23) =>2YO SQ/IM 02/06/2012 Td 12/13/2009,07/13/2004 Social History Tobacco Use Types Packs/Day Years [...] place to sleep or slept in a jail (including now)? No 03/15/2023 Interpersonal Safety Answer Date Record ed How often does anyone, inclu brenda family, hit, punch or physically hurt you? Never 03/15/2023 How often does anyone, torreysumit brenda family, insult, scream, curse or threaten to hurt you? Never 03/15/2023 Sex and Gender Information Value Date Recorded Sex Assigned at Not on file Gender Identity Female 02/28/2019 7:38 EST Sexual Orientation Not on file Last Filed Vital Signs Vital Sign Reading Time Taken Comments Blood Pressure 188/73 01/29/2024 1225 EDT Pulse 50 01/29/2024 1225 EDT Temperature 37.1 ??C (98.8 ??F) 12/30/2023 0952 EDT Respiratory Rate 16 01/29/2024 1219 EDT Oxygen Saturation 98% 01/29/2024 1219 EDT Inhaled Oxygen Concentration - - Weight 64.9 kg (143 lb) 01/29/2024 1219 EDT Height 149.9 cm (4' 11) 12/30/2023 0952 EDT Body Mass Index 28.88 12/30/2023 0952 EDT Functional Status Functional Status Response Date of [...] (5 years old or older) No 03/21/2021 Plan of Treatment Upcoming Encounters Date Type Department Care Team (Late st Contact Info) Description 05/19/2024 11:00 EST Office Visit [facility] Family Medicine [address], [facility] [address] [place] [address] Dane Rick MD [address] [place] [address] [address] [place] [address] Medical Devices Implanted Type Area Professional Poker Player Device Identifier Shelf Expiration Date Model / Serial / Lot Bone Bone Left: Leg Procedures Procedure Name Priority Date/Time Associated Diagnosis Comments ECG REPORT - SCANNED 12/30/2023 20:16 EDT TROPONIN I Routine 12/30/2023 11:41 EDT EKG 12-LEAD STAT 12/30/2023 11:30 EDT NT PRO BNP Add-On 12/30/2023 10:33 EDT UA SEDIMENT + REFLEX TO CULTURE STAT 12/30/2023 10:33 EDT C REACTIVE PROTEIN Routine 12/30/2023 10 :33 EDT LACTIC ACID Routine 12/30/2023 10:33 EDT UA WITH REFLEX SEDIMENT (CULTURE IF POS) STAT 12/30/2023 10:33 EDT COMPREHENSIVE METABOLIC PANEL (CMP) STAT 12/30/2023 10:33 EDT COMPLETE BLOOD COUNT AND DIFFERENTIAL STAT 12/30/2023 10:33 EDT ECG REPORT - SCANNED 11/09/2023 23:14 EDT HOLD GREEN TOP Routine 11/09/2023 16:07 EDT COMPREHENSIVE METABOLIC PANEL (CMP) STAT 11/09/2023 16:07 EDT COMPLETE BLOOD COUNT AND DIFFERENTIAL STAT 11/09/2023 16:07 EDT EKG 12-LEAD STAT 11/09/2023 16:01 EDT LIPID PROFILE (INCLUDES CHOLESTEROL, TRIGLYCERIDES, HDL, LDL) Add-On 08/13/2023 14:24 EDT Elevated LFTs from Last 3 Months or Most Recently Relevant to Health Maintenance Results * ECG REPORT - SCANNED (12/30/2023 20:16 EDT) 12/30/2023 20:1 6 EDT Scan 2 Roll Cutter PROCEDURE/MINOR PRINCESS GICAL ORDERABLES * TROPONIN I (12/30/2023 11:41 EDT) Troponin I (ng/mL) <0.034 <0.034 ng/mL 12/30/2023 12:15 EDT [facility] Blood VENOUS BLOOD / Unknown Venipuncture / Unknown 12/30/2023 11:41 EDT 12/30/2023 11:42 EDT Narrative [facility] - 12/30/2023 12:15 EDT The results of this assay can be falsely lowered due to the consumption of Biotin. Sidney Syed MD CHEMISTRY & BLOOD G ORDERABLES [facility] [address] [place] [address] * EKG 12-LEAD (12/30/2023 11:30 EDT) 12/30/2023 11:3 0 EDT [facility] EP[facility]HANY - 12/30/2023 20:05 EDT ? [facility] ? Test Date: ?2023-12-30 Pat Name: ? KENYATTA LOPEZ ? Department: ? Room: ? C07 Gender: ? Female ? [employer] Pump Tender: ?? [facility] : ?1940 ? Requested By: MARGARITA CHIN Order Number: [id number] ? Reading MD: ?? LAVELLE POSEY MD ? Measurements Intervals ?Graham ? Rate: ? 48 ? P: ?78 OK: ? 180 ?QRS: ?-15 QRSD: ? 76 ? T: ?34 QT: ? 430 ? QTc: ?384 ? Interpretive Statements Sinus bradycardia Compared to ECG 11/09/2023 16:01:47 ST (T wave) deviation no longer present I reviewed the tracing and have either agreed or edited the findings in this report. Electronically Signed On 12-30-2023 20:05:12 EDT by LAVELLE POSEY MD. Procedure Note Lavelle Posey MD - 12/30/2023 [facility] Test Date: 2023-12-30 Pat Name: KENYATTA LOPEZ Department: Room: 7 Gender: Female [employer] Pump Tender: [facility] : 1940 Requested By: MARGARITA CHIN Order Number: [id number] Reading MD: LAVELLE POSEY MD Measurements Intervals Graham Rate: 48 P: 78 OK: 180 QRS: -15 QRSD: 76 T: 34 QT: 430 QTc: 384 Interpretive Statements Sinus bradycardia Compared to ECG 11/09/2023 16:01:47 ST (T wave) deviation no longer present I reviewed the tracing and have either agreed or edited the findings inthis report. Electronically Signed On 12-30-2023 20:05:12 EDT by LAVELLE WU. Sidney Syed MD CARDIAC ECG ORDERAB [facility] * (ABNORMAL) UA CASCADE TO CULTURE (12/30/2023 10:33 EDT) Color UA Yellow Colorless, Yellow 12/30/2023 10:43 [facility] Clarity UA Clear Clear 12/30/2023 10:43 [facility] Glucose UA Negative Negative mg/dL 12/30/2023 10:43 [facility] Bilirubin UA Negative Negative 12/30/2023 10:43 [facility] Ketones UA Negative Negative 12/30/2023 10:43 [facility] Specific [place], Urine 1.015 1.001 - 1.030 12/30/2023 10:43 [facility] Blood UA Negative Negative 12/30/2023 10:43 [facility] pH, UA 7.0 5.0 - 8.0 12/30/2023 10:43 [facility] Protein UA Negative Negative mg/dL 12/30/2023 10:43 [facility] Urobilinogen UA 1.0 0.2-1.0 mg/dL mg/dL 12/30/2023 10:43 [facility] Nitrite UA Negative Negative 12/30/2023 10:43 [facility] Leukocyte Esterase UA Trace(A) Negative 12/30/2023 10:43 EDT [facility] Urine URINE SPECIMEN OBTAINED BY CLEAN CATCH PROCEDURE / Unknown Urine Collect / Unknown 12/30/2023 10:33 EDT 12/30/2023 10:40 EDT Sidney Syed MD URINALYSIS ORDERABL ES Performing Organization Address [facility] de Phone Number [facility] [address] [place] [address] * (ABNORMAL) UA SEDIMENT + REFLEX TO CULTURE (12/30/2023 10:33 EDT) Urine RBC Count, Manual 0 - 2 0 - 2 Cells/HPF 12/30/2023 10:48 EDT [facility] Urine WBC Count 0 - 3 0 - 3 Cells/HPF 12/30/2023 10:48 T [facility] Urine Squamous Count, Manual Few(A) None Seen Cells/HPF 12/30/2023 10:48 EDT [facility] Urine Hyaline Cast Count, Manual <=10 <=10 Casts/LPF 12/30/2023 10:48 [facility] Urine Bacteria Count, Manual Few(A) None Seen Bacteria/H PF 12/30/2023 10:48 EDT [facility] Urine URINE SPECIMEN OBTAINED BY CLEAN CATCH PROCEDURE / Unknown Urine Collect / Unknown 12/30/2023 10:33 EDT 12/30/2023 10:40 EDT Narrative [facility] - 12/30/2023 10:48 EDT Urine Sediment Analysis results are unreliable on urines that are unrefrigerated for >2 hrs or refrigerated >8 hrs. NOTE: Reflex to Urine Culture test is not indicated based on Urine Sediment Analysis results. Sidney Syed MD URINALYSIS ORDERABL ES Performing Organization Address [facility]/ZIP Co de Phone Number [facility] [address] [place] [id number] * LACTIC ACID (12/30/2023 10:33 EDT) [facility] Lactic Acid 0.8 <=2.0 mmol/L 12/30/2023 11:01 [facility] Blood VENOUS BLOOD / Unknown Venipuncture / Unknown 12/30/2023 10:33 EDT 12/30/2023 10:41 EDT Sidney Syed MD CHEMISTRY & BLOOD G ORDERABLES [facility] [address] [place] [address] * (ABNORMAL) COMPLETE BLOOD COUNT AND DIFFERENTIAL (12/30/2023 10:33 EDT) Only the most recent of2 resultswithin the time period is included. [facility] WBC 7.81 4.00 - 12.40 K/cmm 12/30/2023 10:43 [facility] RBC 4.58 3.86 - 5.04 M/cmm 12/30/2023 10:43 [facility] Hemoglobin 13.0 11.6 - 15.2 g/dL 12/30/2023 10:43 [facility] HCT 39.4 34.9 - 44.4 % 12/30/2023 10:43 [facility] MCV 86 81 - 98 fL 12/30/2023 10:43 [facility] MCH 28.4 26.7 - 33.3 pg 12/30/2023 10:43 [facility] MCHC 33.0 32.1 - 35.9 g/dL 12/30/2023 10:43 [facility] RDW-CV 12.9 <14.7 % 12/30/2023 10:43 [facility] RDW-SD 40.0 <50.4 fl 12/30/2023 10:43 [facility] PLT 268 141 - 377 K/cmm 12/30/2023 10:43 [facility] MPV 9.4(L) 9.5 - 12.7 fL 12/30/2023 10:43 [facility] % Neutrophils 65.4 Not Indicated % 12/30/2023 10:43 [facility] % Lymphocytes 20.0 Not Indicated % 12/30/2023 10:43 [facility] % Monocytes 7.9 Not Indicated % 12/30/2023 10:43 [facility] % Eosinophils 5.1 Not Indicated % 12/30/2023 10:43 [facility] % Basophils 1.2 Not Indicated % 12/30/2023 10:43 [facility] % Immature Grans 0.4 <0.9 % 12/30/2023 10:43 [facility] Absolute Neutrophils 5.11 2.20 - 8.85 K/cmm 12/30/2023 10:43 [facility] Absolute Lymphocytes 1.56 1.09 - 3.30 K/cmm 12/30/2023 10:43 [facility] Absolute Monocytes 0.62 0.10 - 0.80 K/cmm 12/30/2023 10:43 [facility] Absolute Eosinophils 0.40 0.03 - 0.61 K/cmm 12/30/2023 10:43 [facility] ABS Basophils 0.09 0.01 - 0.11 K/cmm 12/30/2023 10:43 [facility] Absolute Immature Grans 0.03 0.00 - 0.06 K/cmm 12/30/2023 10:43 [facility] Type of Differential: Auto 12/30/2023 10:43 [facility] Blood VENOUS BLOOD / Unknown Venipuncture / Unknown 12/30/2023 10:33 EDT 12/30/2023 10:41 EDT Sidney Syed MD PACKAGES & DNA PROB E ORDERABLES [facility] [address] [place] [address] * C REACTIVE PROTEIN (12/30/2023 10:33 EDT) C-Reactive Protein <5.0 <10.0 mg/L 12/30/2023 11:14 EDT [facility] Blood VENOUS BLOOD / Unknown Venipuncture / Unknown 12/30/2023 10:33 EDT 12/30/2023 10:41 EDT Sidney Syed MD CHEMISTRY & BLOOD G ORDERABLES Performing Organization Address [facility] Co de Phone Number [facility] [address] [place] [address] * (ABNORMAL) NT PRO BNP (12/30/2023 10:33 EDT) NT-pro BNP 298(H) <296 pg/mL 12/30/2023 11:42 EDT [facility] Comment: In the acute setting NT-proBNP values <300 pg/mL have a 98% NPV for excluding acute heart failure. In outpatient populations, NT-proBNP values <125 have a 99% NPV for excluding heart failure. Blood VENOUS BLOOD / Unknown Venipuncture / Unknown 12/30/2023 10:33 EDT 12/30/2023 10:41 EDT Sidney Syed MD CHEMISTRY & BLOOD G ORDERABLES Performing Organization Address City/[facility]/ZIP Co de Phone Number [facility] [address] [place] [address] * (ABNORMAL) COMPREHENSIVE METABOLIC PANEL (CMP) (12/30/2023 10:33 EDT) Only the most recent of2 resultswithin the time period is included. Sodium 136 136 - 145 mmol/L 12/30/2023 11:14 EDT [facility] Potassium 4.2 3.5 - 5.0 mmol/L 12/30/2023 11:14 [facility] Chloride 101 96 - 110 mmol/L 12/30/2023 11:14 [facility] CO2 Total 30 22 - 32 mmol/L 12/30/2023 11:14 [facility] Glucose 92 70 - 99 mg/dl 12/30/2023 11:14 [facility] BUN 18 10 - 26 mg/dL 12/30/2023 11:14 [facility] Creatinine 0.80 0.52 - 1.04 mg/dL 12/30/2023 11:14 [facility] eGFR 74 >60 mL/min/1.7 3m2 12/30/2023 11:14 [facility] Total Protein 7.0 6.3 - 8.2 g/dL 12/30/2023 11:14 [facility] Albumin 4.1 3.4 - 4.9 g/dL 12/30/2023 11:14 [facility] Alkaline Phosphatase 138(H) 38 - 126 U/L 12/30/2023 11:14 [facility] AST 19 15 - 46 U/L 12/30/2023 11:14 [facility] ALT 10 <35 U/L 12/30/2023 11:14 [facility] Bilirubin, Total 1.4(H) <1.4 mg/dL 12/30/19 11:14 [facility] Calcium 11.2(H) 8.5 - 10.5 mg/dL 12/30/2023 11:14 [facility] Albumin/Globulin Ratio 1.4 1.0 - 2.5 12/30/2023 11:14 [facility] Anion Gap 5 5 - 14 mmol/L 12/30/2023 11:14 [facility] Blood VENOUS BLOOD / Unknown Venipuncture / Unknown 12/30/2023 10:33 EDT 12/30/2023 10:41 EDT Ki[place]ha [place] Krauthamer MD CHEMISTRY & BLOOD G ORDERABLES Performing Organization Address [facility]/ZIP Co de Phone Number [facility] [address] [place] [address] * ECG REPORT - SCANNED (11/09/2023 23:14 EDT) 11/09/2023 23:1 4 EDT Scan 2 Roll Cutter PROCEDURE/MINOR PRINCESS GICAL ORDERABLES * HOLD GREEN TOP (11/09/2023 16:07 EDT) Hold Hold 11/09/2023 17:15 EDT [facility] Blood VENOUS BLOOD / Unknown Venipuncture / Unknown 11/09/2023 16:07 EDT 11/09/2023 16:09 EDT Celestino Padron MD LAB INFO SERVICE AND SUPPORT & PHONE RESULT Performing Organization Address City/[facility]/ZIP Co de Phone Number [facility] [address] [place] [address] * EKG 12-LEAD (11/09/2023 16:01 EDT) 11/09/2023 16:0 1 EDT Narrative [facility] - 11/09/2023 23:04 EDT ? [facility] ? Test Date: ?2023-11-09 Pat Name: ? KENYATTA LOPEZ ? Department: ? Room: ? A07 Gender: ? Female ? [employer] Pump Tender: ?? TC : ?1940 ? Requested By: JAC Connor Order Number: [id number] ? Reading MD: ?? MARCIE ZAVALA MD ? Measurements Intervals ?Graham ? Rate: ? 55 ? P: ?83 OK: ? 196 ?QRS: ?-20 QRSD: ? 78 ? T: ?35 QT: ? 414 ? QTc: ?396 ? Interpretive Statements Sinus bradycardia Nonspecific ST abnormality Compared to ECG 08/13/2023 14:46:08 ST (T wave) deviation now present Sinus rhythm no longer present I reviewed the tracing and have either agreed or edited the findings in this report. Electronically Signed On 11-09-2023 23:04:45 EDT by MARCIE ZAVALA MD. Procedure Note Marcie Zavala MD - 11/09/2023 [facility] Test Date: 2023-11-09 Pat Name: KENYATTA LOPEZ Department: Room: [facility] Gender: Female [employer] Pump Tender: TC : 1940 Requested By: JAC Connor Order Number: [id number] Reading MD: MARCIE ZAVALA MD Measurements Intervals Graham Rate: 55 P: 83 OK: 196 QRS: -20 QRSD: 78 T: 35 QT: 414 QTc: 396 Interpretive Statements Sinus bradycardia Nonspecific ST abnormality Compared to ECG 08/13/2023 14:46:08 ST (T wave) deviation now present Sinus rhythm no longer present I reviewed the tracing and have either agreed or edited the findings inthis report. Electronically Signed On 11-09-2023 23:04:45 EDT by MARCELLUS MARCIAL. Celestino Padron MD CARDIAC ECG ORDERABL ES [facility] * (ABNORMAL) LIPID PROFILE (INCLUDES CHOLESTEROL, TRIGLYCERIDES, HDL, LDL) (08/13/2023 14:24 EDT) Cholesterol 217(H) <200 mg/dL 08/15/2023 17:47 EDT [facility] Comment:Note that therapeuti c goals will differ between patients based on cardiac risk factors and current medical therapy. HDL 57 >=50 mg/dl 08/15/2023 17:47 EDT [facility] Comment:Note that therapeuti c goals will differ between patients based on cardiac risk factors and current medical therapy. LDL, Calculated 127 <160 mg/dL 17:47 EDT [facility] Comment:Note that therapeuti c goals will differ between patients based on cardiac risk factors and current medical therapy. Triglyceride 163(H) <=150 mg/dL 08/15/2023 17:47 EDT [facility] Comment:Note that therapeuti c goals will differ between patients based on cardiac risk factors and current medical therapy. Chol/HDL Ratio 3.8 See Note 08/15/2023 17:47 EDT [facility] Comment: NOTE: Desirable Ratio = <4.1 Patient At Risk Ratio = >5.0(Males) ?>6.0(Females) Non HDL Cholesterol 160(H) <160 mg/dL 08/15/2023 17:47 EDT [facility] Comment:Note that therapeuti c goals will differ between patients based on cardiac risk factors and current medical therapy. Blood VENOUS BLOOD / Unknown Venipuncture / Unknown 08/13/2023 14:24 EDT 08/13/2023 14:24 EDT Dane Rick MD CHEMISTRY & BLOOD GA S ORDERABLES Performing Organization Address City/State/[facility] Co de Phone Number [facility] [address] [place] [phone] from Last 3 Months or Most Recently Relevant to Health Maintenance Kenyatta Lopez Personal/Family Self 1940 [address] [place] [address] Lopez, Kenyatta E Personal/Family Self 1940 [address] [place] [address] Kenyatta Lopez Personal/Family Self 1940 [address] [place] [address] Kenyatta Lopez Personal/Family Self 1940 [address] [place] [address] Kenyatta Lopez E Personal/Family Self 1940 [address] [place] [address] Kenyatta Lopez E Personal/Family Self 1940 [address] [place] [address] Kenyatta Lopez Personal/Family Self 1940 [address] [place] [address] Advance Directives For more information, please contact: [phone] * Full Code (Latest Code Status on File) Date Activated Date Inactivated Comments 03/21/2021 7:51 03/24/2021 14:43 Question Answer Comments When the patient has NO PULSE: Full Code / CPR Who Made the Decision? Patient * Full Code Date Activated Date Inactivated Comments 01/03/2013 11:54 01/03/2013 19:09 * Full Code Date Activated Date Inactivated Comments 01/03/2013 8:13 01/03/2013 11:54 Care Teams Academic Affairs Director Relationship Specialty Start Date End Date Dane Rick MD [address] [place] [address] [address] [place] [phone] PCP - General Family Medicine - Primary Care 08/09/22 Leticia Lieberman [address] [place] [phone] General Surgery 04/03/23 Mendoza Guzmán MD [address] [place] [address] [address] [place] [address] Otolaryngology 04/03/23
--- OUTSIDE RECORDS SUMMARY | 2024-02-08 01:06 | XMS_ITS | Encounter Summary ---
Author Organization [facility] [place] [address] Care Team Providers Care Power System Dispatcher Name Role Phone Unavailable Primary Care Provider Unavailabl e Encounter Details Date Type Department Care Team (Late st Contact Info) Description 06/12/2008 Ancillary Procedure Radiology Library at [facility] [place] [address] Dane Rick [address] [place] [phone] Social History Tobacco Use Types Packs/Day Years [...] 10:00 AM EST Office Visit Hematology/Oncology at [address] [phone] Keisha Rodriguez APRN [address] [place] [address] [place] [address] 02/08/2024 10:30 AM EST Infusion Hematology Oncology at [address] [phone] 02/13/2024 10:00 AM EST Office Visit General Surgery at [address] [phone] Leticia Lieberman MD [address] [place] [address] 11/06/2069 Hospital Encounter [place]patient [place] [phone] Philly Zuluaga MD [facility] OBSTETRICS [place] [address] Scheduled Procedures Name Priority Associated Diagnoses Date/Ti me HYSTEROSCOPY, SURG W/ENDOMET RIAL SAMPLING, POLYPECTOMY (WRVU 4.17) Thickened endometrium documented as of this encounter Procedures Procedure Name Priority Date/Time Associated Diagnosis Comments FILM LIBRARY STORAGE ONLY MAMMO Routine 06/12/2008 12:00 AM EDT documented in this encounter Results * Film Library- Storage Only Mammo (06/12/2008 12:00 AM EDT) Narrative GHADA LAUREANO - 03/17/2023 11:47 PM EST This exam is auto-finalizing. It's purpose is for storage only. Dane KIM FILM LIBRARY ORD ERABLES GHADA LAUREANO [place], [place] documented in this encounter Visit Diagnoses Not on filedocumented in this encounter
--- OUTSIDE RECORDS SUMMARY | 2024-02-08 01:06 | XMS_ITS | Encounter Summary ---
Author Organization [facility] [place] [address] Care Team Providers Care Sports Medicine Physician Name Role Phone Dane Rikc Primary Care Provider [phone] Encounter Details Date Type Department Care Team (Latest Contact Info) Description 03/13/2023 2:50 PM EST - 03/13/2023 11:59 PM EST Hospital [place] [phone] Discharge Disposition: Home Social History Tobacco Use Types Packs/Day Years Used Date Smoking Tobacco: Never Assessed Sex and Gender Information Value Date Recorded Sex Assigned at Not on file Gender Identity Not on file Sexual Orientation Not on file documented as of this encounter Medications at Time of Discharge Medication Sig Dispensed Refills Start Date End Date aspirin EC 81 mg EC (DR) tablet Take 81 mg by mouth daily. 09/19/2022 furosemide (Lasix) 20 mg tablet Take 20 mg by mouth 2 times daily. 09/19/2022 losartan (Cozaar) 100 mg tablet Take 100 mg by mouth Daily. 12/26/2022 documented as of this encounter Plan of Treatment Upcoming Encounters Date Type Department Care Team (Late st Contact Info) Description 02/08/2024 10:00 AM EST Office Visit Hematology/Oncology at [address] [phone] Keisha Rodriguez APRN [address] [place] [address] DR MEDICAL ONCOLOGY [place], [place] [phone] 02/08/2024 10:30 AM EST Infusion Hematology Oncology at [address] [phone] 02/13/2024 10:00 AM EST Office Visit General Surgery at [place] [address] [place] [phone] Leticia Lieberman MD [address] [facility] [place] [address] 11/06/2069 Hospital Encounter Outpatient [place] [phone] Philly Zuluaga MD [facility] [address] OBSTETRICS [place] [address] Scheduled Procedures Name Priority Associated Diagnoses Date/Ti me HYSTEROSCOPY, SURG W/ENDOMET RIAL SAMPLING, POLYPECTOMY (WRVU 4.17) Thickened endometrium documented as of this encounter Procedures Procedure Name Priority Date/Time Associated Diagnosis Comments SURGICAL PATHOLOGY REPORT Routine 03/13/2023 2:51 PM EST documented in this encounter Results * Surgical Pathology Report (03/13/2023 2:51 PM EST) Final Diagnosis [id number] ? Location: [facility] The signing pathologist has (i) examined the relevant preparation(s) for the specimen(s) and (ii) rendered or confirmed the diagnosis(es). . 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 - Lymphovascular invasion not identified. ER, TX, and HER2 studies (outside IHC slides reviewed): ER: Positive (>90%, strong) TX: Negative HER2 IHC: Negative (score 0) Electronically signed by: ?Aury Day DO Verified: ??03/14/2023 15:38 ??Pathologist Performed at: ??-[facility] Dept. of Pathology, [place] [address] House Mover: Ren Carranza MD, FCAP, ??CLIA Certificate: [id number] SPECIMEN(S) SUBMITTED CONSULTATION CASE A - 5 slide(s) labeled [id number], collection date 02/09/2023. [id number] [place] COPY: [facility] Department of Pathology [address] [place] [id number] Ph: ??[phone] CLINICAL INFORMATION N/A SPECIMEN PROCESSING [facility] ([facility]) ?? pathology slide(s) are reviewed. Refer to Diagnosis and Specimen Submitted for specific case information. For the full text of the [facility] report(s) please refer to the Chart Review Media tab in the electronic health record (eDH). 03/14/2023 3:38 PM EST [facility] Consult Case 03/13/2023 2:51 PM EST 03/13/2023 2:51 PM EST Catherine Russo MD PATHOLOGY/CYTOLOGY ORDERABLES Performing Organization Address City/State/[facility] Co de Phone Number [facility] [place] [phone] [facility] [place] [address] documented in this encounter Visit Diagnoses Not on filedocumented in this encounter Care Teams Sports Medicine Physician Relationship Specialty Start Date End Date Dane Rick [address] [place] [phone] PCP - General Family Medicine 03/05/23 documented as of this encounter
--- OUTSIDE RECORDS SUMMARY | 2024-02-08 01:06 | XMS_ITS | Encounter Summary ---
Author Organization [facility] [place] [address] Care Team Providers Care Radar Engineering Teacher Name Role Phone Dane Rick Primary Care Provider [phone] Encounter Details Date Type Department Care Team (Late Contact Info) Description 04/13/2023 Telephone General Surgery at [address] [phone] Elisabet Huizar Social History Tobacco Use Types Packs/Day Years Used Date Smoking Tobacco: Never Smokeless Tobacco: Never Sex and Gender Information Value Date Recorded Sex Assigned at Not on file Gender Identity Not on file Sexual Orientation Not on file documented as of this encounter Miscellaneous Notes * Telephone Encounter - Elisabet Huizar - 04/13/2023 4:35 PM EST Received call from pt's PCP regarding preop letter sent to pt for 04/16/23 surgery. Rep stated pt was confused about section regarding medications and stated pt was unable to read letter to rep. Advised rep instructions. That she does not have to hold prescription medications, she is okay to continue 81 mg aspirin and anxiety medication. Advised pt has been confused about other instructions in letter since she received it and that Vicky case monitor has been helpful with this. Rep asked if sheshould send message to PCP regarding instructions on prescription medications. Advised it could be helpful since pt is confused. Rep stated she would send PCP a message. documented in this encounter Plan of Treatment Upcoming Encounters Date Type Department Care Team (Late Contact Info) Description 02/08/2024 10:00 AM EST Office Visit Hematology/Oncology at [address] [phone] Keisha Rodriguez APRN [address] [place] [address] DR MEDICAL ONCOLOGY [place], [place] [address] 02/08/2024 10:30 AM EST Infusion Hematology Oncology at [address] [phone] 02/13/2024 10:00 AM EST Office Visit General Surgery at [address] [phone] Leticia Lieberman MD [address] [place] [address] 11/06/2069 Hospital Encounter Outpatient [place] [phone] Philly Zuluaga MD [facility] DR OBSTETRICS [place] [address] Scheduled Procedures Name Priority Associated Diagnoses Date/Ti me HYSTEROSCOPY, SURG W/ENDOMET RIAL SAMPLING, POLYPECTOMY (WRVU 4.17) Thickened endometrium documented as of this encounter Visit Diagnoses Not on filedocumented in this encounter Care Teams Radar Engineering Teacher Relationship Specialty Start Date End Date Dane Rick [address] [place] [phone] PCP - General Family Medicine 03/05/23 documented as of this encounter
--- OUTSIDE RECORDS SUMMARY | 2024-02-08 01:06 | XMS_ITS | Clinical Summary ---
Author Organization [facility] Address [address] [place] [address] Care Team Providers Care Supervisor Color Making Name Role Phone Dane Rick MD Primary Care Provider [phone] Leticia Lieberman Unavailable Mendoza Guzmán MD Unavailable [phone] Allergies Active Allergy Reactions Criticality Noted Date [...] original. Patient has given permission for [facility] HEM/ONC to verbally discuss the following [...] until the patient elects to revoke it.Per [employer]point Specially funded category for Qualified Medicare Beneficiaries. Should be loaded as Medicaid following Medicare PQ Category Mika Lance 07/18/2022 16:20 Patient has given permission for [facility] to verbally discuss the following information with [...] right breast in female, estrogen receptor positive ([facility]) 02/20/2023 Cancer Staging:Clinical:Stage IIB(cT2, cN1, cM0, G2, ER+, MT-, HER2-) - Signed by Xu Hendrix MD on 02/20/2023 Hypercalcemia 09/19/2022 Overview: Presumed hyperparathyroidism Present since 2016, (2016-calcium 10.4, 2019-calcium 11.4) 09/2022-calcium 11.3, PTH-208 Last [...] consider physical therapy. CVA (cerebral vascular accident) ([facility]) 03/21 Hemiplegia and hemiparesis f ollowing cerebral infarction affecting right dominant side ([facility]) 03/21/2021 Last Assessment & Plan: Discussed risks and benefits of aspirin given her stroke history. Patient affirms she would like to continue aspirin Congestive heart failure ([facility]) 02/22/2021 Nontoxic multinodular goiter 09/03/2020 Overview: Followed by ENT, alex as of 12/2022, ENT at [facility]-enlarging left thyroid nodule, status post FNA 01/2023 [...] appropriate imaging. 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 ([facility]) 05/06/2019 Trigeminal neuralgia 05/06/2019 Unspecified rotator cuff tea r or rupture of right shoulder, not specified as traumatic 05/06/2019 Vertigo 05/06/2019 Resolved Problems Problem Noted Date Diagnosed Date Resolved Date Stroke determined by clinica l assessment ([facility]) 03/21/2021 09/19/2022 Encounters Date Type Department Care Team Description 01/29/2024 12:15 EDT Office Visit [facility] Family Medicine [place] [address] [place] [address] Dane Rick MD Depression with anxiety (Primary Dx); Malignant neoplasm of upper-outer quadrant of right breast in female, estrogen receptor positive ([facility]); Chronic pain of left knee 01/21/2024 Patient Outreach [facility] [address] [address] Vicky Chamberlain, BUTCHER 01/17/2024 Telephone [facility] [address] [place] [address] Dane Rick MD Suicidal Ideation 01/11/2024 Patient Outreach [facility] [address] [address] Vicky Chamberlain, BUTCHER 01/09/2024 Telephone [facility] [address] [place] [address] Dane Rick MD No Show; Letter 01/02/2024 Telephone [facility] [address], [facility] [address] [place] [address] Ara Mccullough, HARINDER Post-ED Follow Up 01/01/2024 Patient Outreach [facility] [address] [facility] [address] Vicky Chamberlain, BUTCHER 12/31/2023 Telephone [facility] [address], [facility] [address] [place] [address] Dane Rick MD Diagnostic Imaging Report 12/30/2023 9:44 EDT - 12/30/2023 13:19 EDT Emergency [facility] Emergency Department [address] [place] [address], [place] [address] Sidney Syed MD Other fatigue (Primary Dx) Discharge Disposition: Home or Self Care 12/13/2023 Patient Outreach [facility] [address] [facility] [address] Vicky Chamberlain, BUTCHER 11/15/2023 Patient Outreach [facility] [address] [facility] [address] Vicky Chamberlain, BUTCHER 11/14/2023 Telephone [facility] [address] [place] [address] Lauren Wilde, RN Update 11/12/2023 13:00 EDT Office Visit [facility] [address] [place] [address] Cristhian Madison, Situational mixed anxiety and depressive disorder (Primary Dx) 11/12/2023 Telephone [facility] [address], [facility] [address] [place] [address] Dane Rick MD Follow-up (ED follow up); Weakness 11/09/2023 15:34 EDT - 11/09/2023 16:59 EDT Emergency [facility] Emergency Department [address] [place] [address] Celestino Padron MD Depression, unspecified depression type (Primary Dx); Widened pulse pressure; Hypertension, unspecified type Discharge Disposition: Home or Self Care 11/09/2023 Travel 11/09/2023 Telephone [facility] [address], [facility] [place] [address] Dane Rick MD Hypertension from Last 3 Months Immunizations Name Administration Dates Next Due Influenza [...] Vaccine (PNEUMOVAX-23) =>2YO SQ/IM 02/06/2012 Td 12/13/2009,07/13/2004 Surgical History Surgery Date Site/Laterality Comments ECTROPION REPAIR 01/09/2008 bilateral lower lids BLEPHAROPLASTY 01/15/2008 bilateral brow lift ROTATOR CUFF REPAIR 01/14/2019 Right CARDIAC SURGERY Medical History Medical History Date Comments Chest pressure on exertion Abnormal stress test reversible anteroseptal defect, with equivocal ST changes Breathlessness on exertion Seizure disorder (HCC-CMS) Diverticulosis HLD (hyperlipidemia) HLD (hyperlipidemia) ABDOULAYE (obstructive sleep apnea) Post concussive syndrome poor me carson Trigeminal neuralgia Hypertension Arthritis Cerebral artery occlusion wi th cerebral infarction (HCC-CMS) Family History Medical History Relation Comments Heart Disease Father High Blood Pressure Father Diabetes Paternal Aunt Early Paternal Aunt Diabetes Paternal Uncle Early Son Relation Status Comments Father Paternal Aunt Paternal Uncle Son Alive Social History Tobacco Use Types Packs/Day Years [...] place to sleep or slept in a snf (including now)? No 03/15/2023 Interpersonal Safety Answer Date Record ed How often does anyone, inclsumit gutierrez family, hit, punch or physically hurt you? Never 03/15/2023 How often does anyone, inclsumit gutierrez family, insult, scream, curse or threaten to hurt you? Never 03/15/2023 Sex and Gender Information Value Date Recorded Sex Assigned at Not on file Gender Identity Female 02/28/2019 7:38 EST Sexual Orientation Not on file Obstetrics History Last Filed Vital Signs Vital Sign Reading [...] Body Mass Index 28.88 12/30/2023 0952 EDT Plan of Treatment Upcoming Encounters Date Type Department Care Team (Late st Contact Info) Description 05/19/2024 11:00 EST Office Visit [facility] Family [facility] [address], [address] [place], [place] [id number] Dane Rick MD [address] [place] [address] [address] [place] [address] Health Maintenance Due Date Last Done Comments Advance Directive 12/16/1959 Preventive Care Visit 12/16/1959 Pertussis (Adult) Immunization 1960 Shingles Immunization (1 of 2) 12/16/1991 Osteoporosis Screening 2006 Tetanus (Adult) Immunization 12/14/2019 12/13/2009, 07/13/2004 Social Determinants Of Healt h (SDOH) 03/15/2024 03/15/2023 Fall Risk Screening 04/03/2024 04/03/2023 Depression Screening 01/28/2025 01/29/2024 Lipid Profile Screening (Cholesterol) 08/12/2028 08/13/2023, 03/20/2021, 07/18/2018 Pneumococcal Immunization (65+) Completed 5, 02/06/2012 Influenza Immunization (Adult) Discontinued 1 , 02/19/2017, 01/24/2016, Additional history exists COVID-19 Vaccine Discontinued RSV Immunization ( o r 60+ Years) Discontinued Medical Devices Implanted Type Area Sustainability Purchasing Agent Device Identifier Shelf Expiration Date Model / [...] EDT) 12/30/2023 20:1 6 EDT Scan 2 Seal Skinner PROCEDURE/MINOR PRINCESS GICAL ORDERABLES * TROPONIN I (12/30/2023 11:41 EDT) Troponin I (ng/mL) <0.034 <0.034 ng/mL 12/30/2023 12:15 EDT [facility] Blood VENOUS BLOOD / Unknown Venipuncture / Unknown 12/30/2023 11:41 EDT 12/30/2023 11:42 EDT Narrative [facility] - 12/30/2023 12:15 EDT The results of this assay can be falsely lowered due to the consumption of Biotin. Sidney Syed MD CHEMISTRY & BLOOD G ORDERABLES [facility] [address] [place] [address] * EKG 12-LEAD (12/30/2023 11:30 EDT) 12/30/2023 11:3 0 EDT Narrative [facility] - 12/30/2023 20:05 EDT ? [facility] ? Test Date: ?2023-12-30 Pat Name: ? KENYATTA LOPEZ ? Department: ? Room: ? C07 Gender: ? Female ? Continuity Reader: ?? B[facility] : ?1940 ? Requested By: MARGARITA CHIN Order Number: [id number] ? Reading MD: ?? LAVELLE POSEY MD ? Measurements Intervals ?[place] ? Rate: ? 48 ? P: ?78 MT: ? 180 ?QRS: ?-15 QRSD: ? 76 [...] Procedure Note Lavelle Posey MD - 12/30/2023 [facility] Test Date: 2023-12-30 Pat Name: KENYATTA LOPEZ Department: Room: [facility] Gender: Female Continuity Reader: [facility] : 1940 Requested By: MARGARITA CHIN Order Number: [id number] Reading MD: LAVELLE POSEY MD Measurements Intervals [place] Rate: 48 P: 78 MT: 180 QRS: -15 QRSD: 76 T: 34 QT: 430 QTc: 384 Interpretive Statements Sinus bradycardia Compared to ECG 11/09/2023 16:01:47 ST (T wave) deviation no longer present I reviewed the tracing and have either agreed or edited the findings inthis report. Electronically Signed On 12-30-2023 20:05:12 EDT by LAVELLE WU. Sidney Syed MD CARDIAC ECG ORDERAB LES [facility] * (ABNORMAL) UA CASCADE TO CULTURE (12/30/2023 10:33 EDT) Color UA Yellow Colorless, Yellow 12/30/2023 10:43 EDT [facility] Clarity UA Clear Clear 12/30/2023 10:43 EDT [facility] Glucose UA Negative Negative mg/dL 12/30/2023 10:43 EDT [facility] Bilirubin UA Negative Negative 12/30/2023 10:43 EDT [facility] Ketones UA Negative Negative 12/30/2023 10:43 [facility] Specific [place], Urine 1.015 1.001 - 1.030 12/30/2023 10:43 [facility] Blood UA Negative Negative 12/30/2023 10:43 [facility] pH, UA 7.0 5.0 - 8.0 12/30/2023 10:43 [facility] Protein UA Negative Negative mg/dL 12/30/2023 10:43 [facility] Urobilinogen UA 1.0 0.2-1.0 mg/dL mg/dL 12/30/2023 10:43 [facility] Nitrite UA Negative Negative 12/30/2023 10:43 [facility] Leukocyte Esterase UA Trace(A) Negative 12/30/2023 10:43 [facility] Urine URINE SPECIMEN OBTAINED BY CLEAN CATCH PROCEDURE / Unknown Urine Collect / Unknown 12/30/2023 10:33 EDT 12/30/2023 10:40 EDT Sidney Syed MD URINALYSIS ORDERABL ES [facility] [address] [place] [address] * (ABNORMAL) UA SEDIMENT + REFLEX TO CULTURE (12/30/2023 10:33 EDT) Urine RBC Count, Manual 0 - 2 0 - 2 Cells/HPF 12/30/2023 10:48 [facility] Urine WBC Count 0 - 3 0 - 3 Cells/HPF 12/30/2023 10:48 [facility] Urine Squamous Count, Manual Few(A) None Seen Cells/HPF 12/30/2023 10:48 [facility] Urine Hyaline Cast Count, Manual <=10 <=10 Casts/LPF 12/30/2023 10:48 [facility] Urine Bacteria Count, Manual Few(A) None Seen Bacteria/H PF 12/30/2023 10:48 [facility] Urine URINE SPECIMEN OBTAINED BY CLEAN CATCH PROCEDURE / Unknown Urine Collect / Unknown 12/30/2023 10:33 EDT 12/30/2023 10:40 EDT [facility] - 12/30/2023 10:48 EDT Urine Sediment Analysis results are unreliable on urines that are unrefrigerated for >2 hrs or refrigerated >8 hrs. NOTE: Reflex to Urine Culture test is not indicated based on Urine Sediment Analysis results. Sidney Syed MD URINALYSIS ORDERABL ES Performing Organization Address [facility]/ZIP Co de Phone Number [facility] [address] [place] [address] * LACTIC ACID (12/30/2023 10:33 EDT) Lactic Acid 0.8 <=2.0 mmol/L 12/30/2023 11:01 [facility] Blood VENOUS BLOOD / Unknown Venipuncture / Unknown 12/30/2023 10:33 EDT 12/30/2023 10:41 EDT Sidney Syed MD CHEMISTRY & BLOOD G ORDERABLES Performing Organization Address [facility]/ZIP Co de Phone Number [facility] [address] [place] [address] * (ABNORMAL) COMPLETE BLOOD COUNT AND DIFFERENTIAL (12/30/2023 10:33 EDT) Only the most recent of2 resultswithin the time period is included. WBC 7.81 4.00 - 12.40 K/cmm 12/30/2023 10:43 [facility] RBC 4.58 3.86 - 5.04 M/cmm 12/30/2023 10:43 [facility] Hemoglobin 13.0 11.6 - 15.2 g/dL 12/30/2023 10:43 [facility] HCT 39.4 34.9 - 44.4 % 12/30/2023 10:43 [facility] MCV 86 81 - 98 fL 12/30/2023 10:43 [facility] MCH 28.4 26.7 - 33.3 pg 12/30/2023 10:43 [facility] MCHC 33.0 32.1 - 35.9 g/dL 12/30/2023 10:43 [facility] RDW-CV 12.9 <14.7 % 12/30/2023 10:43 [facility] RDW-SD 40.0 <50.4 fl 12/30/2023 10:43 [facility] PLT 268 141 - 377 K/cmm 12/30/2023 10:43 [facility] MPV 9.4(L) 9.5 - 12.7 fL 12/30/2023 10:43 [facility] % Neutrophils 65.4 Not Indicated % 12/30/2023 10:43 [facility] % Lymphocytes 20.0 Not Indicated % 12/30/2023 10:43 [facility] % Monocytes 7.9 Not Indicated % 12/30/2023 10:43 [facility] % Eosinophils 5.1 Not Indicated % 12/30/2023 10:43 [facility] % Basophils 1.2 Not Indicated % 12/30/2023 10:43 [facility] % Immature Grans 0.4 <0.9 % 12/30/2023 10:43 [facility] Absolute Neutrophils 5.11 2.20 - 8.85 K/cmm 12/30/2023 10:43 [facility] Absolute Lymphocytes 1.56 1.09 - 3.30 K/cmm 12/30/2023 10:43 [facility] Absolute Monocytes 0.62 0.10 - 0.80 K/cmm 12/30/2023 10:43 [facility] Absolute Eosinophils 0.40 0.03 - 0.61 K/cmm 12/30/2023 10:43 [facility] ABS Basophils 0.09 0.01 - 0.11 K/cmm 12/30/2023 10:43 [facility] Absolute Immature Grans 0.03 0.00 - 0.06 K/cmm 12/30/2023 10:43 [facility] Type of Differential: Auto 12/30/2023 10:43 [facility] Blood VENOUS BLOOD / Unknown Venipuncture / Unknown 12/30/2023 10:33 EDT 12/30/2023 10:41 EDT Sidney Syed MD PACKAGES & DNA PROB E ORDERABLES Performing Organization Address City/[facility]/ZIP Co de Phone Number [facility] [address] [place] [address] * C REACTIVE PROTEIN (12/30/2023 10:33 EDT) C-Reactive Protein <5.0 <10.0 mg/L 12/30/2023 11:14 [facility] Blood VENOUS BLOOD / Unknown Venipuncture / Unknown 12/30/2023 10:33 EDT 12/30/2023 10:41 EDT Sidney Syed MD CHEMISTRY & BLOOD G ORDERABLES Performing Organization Address [facility] Co de Phone Number [facility] [address] [place] [address] * (ABNORMAL) NT PRO BNP (12/30/2023 10:33 EDT) NT-pro BNP 298(H) <296 pg/mL 12/30/2023 11:42 [facility] Comment: In the acute setting NT-proBNP values <300 pg/mL have a 98% NPV for excluding acute heart failure. In outpatient populations, NT-proBNP values <125 have a 99% NPV for excluding heart failure. Blood VENOUS BLOOD / Unknown Venipuncture / Unknown 12/30/2023 10:33 EDT 12/30/2023 10:41 EDT Sidney Syed MD CHEMISTRY & BLOOD G ORDERABLES [facility] [address] [place] [address] * (ABNORMAL) COMPREHENSIVE METABOLIC PANEL (CMP) (12/30/2023 10:33 EDT) Only the most recent of2 resultswithin the time period is included. Sodium 136 136 - 145 mmol/L 12/30/2023 11:14 [facility] Potassium 4.2 3.5 - 5.0 mmol/L 12/30/2023 11:14 [facility] Chloride 101 96 - 110 mmol/L 12/30/2023 11:14 [facility] CO2 Total 30 22 - 32 mmol/L 12/30/2023 11:14 [facility] Glucose 92 70 - 99 mg/dl 12/30/2023 11:14 [facility] BUN 18 10 - 26 mg/dL 12/30/2023 11:14 [facility] Creatinine 0.80 0.52 - 1.04 mg/dL 12/30/2023 11:14 [facility] eGFR 74 >60 mL/min/1.7 3m2 12/30/2023 11:14 [facility] Total Protein 7.0 6.3 - 8.2 g/dL 12/30/2023 11:14 [facility] Albumin 4.1 3.4 - 4.9 g/dL 12/30/2023 11:14 [facility] Alkaline Phosphatase 138(H) 38 - 126 U/L 12/30/2023 11:14 [facility] AST 19 15 - 46 U/L 12/30/2023 11:14 [facility] ALT 10 <35 U/L 12/30/2023 11:14 [facility] Bilirubin, Total 1.4(H) <1.4 mg/dL 12/30/19 11:14 [facility] Calcium 11.2(H) 8.5 - 10.5 mg/dL 12/30/2023 11:14 [facility] Albumin/Globulin Ratio 1.4 1.0 - 2.5 12/30/2023 11:14 [facility] Anion Gap 5 5 - 14 mmol/L 12/30/2023 11:14 [facility] Blood VENOUS BLOOD / Unknown Venipuncture / Unknown 12/30/2023 10:33 EDT 12/30/2023 10:41 EDT Sidney Syed MD CHEMISTRY & BLOOD G ORDERABLES Performing Organization Address [facility] Co de Phone Number [facility] [address] [place] [address] * ECG REPORT - SCANNED (11/09/2023 23:14 EDT) 11/09/2023 23:1 4 EDT Scan 2 Seal Skinner PROCEDURE/MINOR PRINCESS GICAL ORDERABLES * HOLD GREEN TOP (11/09/2023 16:07 EDT) Hold Hold 11/09/2023 17:15 EDT [facility] Blood VENOUS BLOOD / Unknown Venipuncture / Unknown 11/09/2023 16:07 EDT 11/09/2023 16:09 EDT Celestino Padron MD LAB INFO SERVICE AND SUPPORT & PHONE RESULT Performing Organization Address City/[facility] Co de Phone Number [facility] [address] [place] [address] * EKG 12-LEAD (11/09/2023 16:01 EDT) 11/09/2023 16:0 1 EDT Narrative [facility] - 11/09/2023 23:04 EDT ? [facility] ? Test Date: ?2023-11-09 Pat Name: ? KENYATTA LOPEZ ? Department: ? Room: ? A07 Gender: ? Female ? Continuity Reader: ?? TC : ?1940 ? Requested By: JAC Connor Order Number: [id number] ? Reading MD: ?? MARCIE ZAVALA MD ? Measurements Intervals ?[place] ? Rate: ? 55 ? P: ?83 MT: ? 196 ?QRS: ?-20 QRSD: ? 78 [...] Procedure Note Marcie Zavala MD - 11/09/2023 [facility] Test Date: 2023-11-09 Pat Name: KENYATTA LOPEZ Department: Room: A07 Gender: Female Continuity Reader: TC : 1940 Requested By: JAC Connor Order Number: [id number] Reading MD: MARCIE ZAVALA MD Measurements Intervals [place] Rate: 55 P: 83 MT: 196 QRS: -20 QRSD: 78 T: 35 [...] Celestino Padron MD CARDIAC ECG ORDERABL ES [facility] * (ABNORMAL) LIPID PROFILE (INCLUDES CHOLESTEROL, TRIGLYCERIDES, HDL, LDL) (08/13/2023 14:24 EDT) Cholesterol 217(H) <200 mg/dL 08/15/2023 17:47 T [facility] Comment:Note that therapeuti c goals will differ between patients based on cardiac risk factors and current medical therapy. HDL 57 >=50 mg/dl 08/15/2023 17:47 T [facility] Comment:Note that therapeuti c goals will differ between patients based on cardiac risk factors and current medical therapy. LDL, Calculated 127 <160 mg/dL 17:47 [facility] Comment:Note that therapeuti c goals will differ between patients based on cardiac risk factors and current medical therapy. Triglyceride 163(H) <=150 mg/dL 08/15/2023 17:47 [facility] Comment:Note that therapeuti c goals will differ between patients based on cardiac risk factors and current medical therapy. Chol/HDL Ratio 3.8 See Note 08/15/2023 17:47 [facility] Comment: NOTE: Desirable Ratio = <4.1 Patient At Risk Ratio = >5.0(Males) ?>6.0(Females) Non HDL Cholesterol 160(H) <160 mg/dL 08/15/2023 17:47 [facility] Comment:Note that therapeuti c goals will differ between patients based on cardiac risk factors and current medical therapy. Blood VENOUS BLOOD / Unknown Venipuncture / Unknown 08/13/2023 14:24 EDT 08/13/2023 14:24 EDT Dane Rick MD CHEMISTRY & BLOOD GA S ORDERABLES [facility] [address] [place] [address] from Last 3 Months or Most Recently Relevant to Health Maintenance Advance Directives For more information, please contact: [phone] * Full Code (Latest Code Status on File) Date Activated Date Inactivated Comments 03/21/2021 7:51 03/24/2021 14:43 Question Answer Comments When the patient has NO PULSE: Full Code / CPR Who Made the Decision? Patient * Full Code Date Activated Date Inactivated Comments 01/03/2013 11:54 01/03/2013 19:09 * Full Code Date Activated Date Inactivated Comments 01/03/2013 8:13 01/03/2013 11:54 Care Teams Supervisor Color Making Relationship Specialty Start Date End Date Dane Rick MD [address] [place] [address] [address] [place] [phone] PCP - General Family Medicine - Primary Care 08/09/22 Leticia Lieberman [address] [place] [phone] General Surgery 04/03/23 Mendoza Guzmán MD [address] [place] [address] [address] [place] [phone] Otolaryngology 04/03/23
--- OUTSIDE RECORDS SUMMARY | 2024-02-08 01:06 | XMS_ITS | Encounter Summary ---
[place] [address] Care Team Providers Care Eyewear Manufacturing Tech Name Role Phone Dane Rick Primary Care Provider [phone] Encounter Details Date Type Department Care Team ([facility] st Contact Info) Description 05/11/2023 Telephone General Surgery at [facility] [address] [place] [phone] Leticia Lieberman MD [address] [place] [address] Social History Tobacco Use Types Packs/Day Years Used Date Smoking Tobacco: Never Smokeless Tobacco: Never Sex and Gender Information Value Date Recorded Sex Assigned at Not on file Gender Identity Not on file Sexual Orientation Not on file documented as of this encounter Miscellaneous Notes * Telephone Encounter - Heaven Delgado RN - 05/11/2023 4:26 PM EST call to Radha (name and verified). She states that she forgot what Dr Lieberman said exactly,but she would like to know how much cancer is still left in her lymph nodes which the radiation will take care of. We reviewed Dr Lieberman's last note and discussed that the lymph node was negative for cancer and so were the margins. The plan for radiation and medical oncology consult is due to the fact that it was an invasive cancer which had additional foci (small spots) in the breast. The appointments are to discuss recommendations and benefits of treatment. Radha stated that she was still waiting for appt for Radiation Oncology. I let her know that based on chert review she is already scheduled for it with Dr James in [place] on 05/17/[address] Stauffer (medical oncology) on 05/29/23.She let me know that she thought that one appt cancelled the other. I reintegrated that she needs both appointments and she agreed. She verbalize the difference between both appointments after our discussion. Kenyatta denies further questions,but will reach out if new ones come up. * Telephone Encounter - Edie Jennings - 05/11/2023 4:03 PM EST Patient asking for further info. Pt CB# [phone] documented in this encounter Plan of Treatment Upcoming Encounters Date Type Department Care Team (Late st Contact Info) Description 02/08/2024 10:00 AM EST Office Visit Hematology/Oncology at [address] [address] Keisha Rodriguez [address] [address] 02/08/2024 10:30 AM EST Infusion Hematology Oncology at [address] [address] 02/13/2024 10:00 AM EST Office Visit General Surgery at [address] [address] Leticia Lieberman MD [address] [place] [address] 11/06/2069 Hospital Encounter [place] [address] Philly Zuluaga MD [facility] OBSTETRICS [place] [address] Scheduled Procedures Name Priority Associated Diagnoses Date/Ti me HYSTEROSCOPY, SURG W/ENDOMET RIAL SAMPLING, POLYPECTOMY (WRVU 4.17) Thickened endometrium documented as of this encounter Visit Diagnoses Not on filedocumented in this encounter Care Teams Eyewear Manufacturing Tech Relationship Specialty Start Date End Date Rick, Dane [address] [place] [phone] PCP - General Family Medicine 03/05/23 documented as of this encounter
--- OUTSIDE RECORDS SUMMARY | 2024-02-08 01:06 | XMS_ITS | Encounter Summary ---
[place] [address] Care Team Providers Care Public Works Supervisor Name Role Phone Dane Rick Primary Care Provider [phone] Encounter Details Date Type Department Care Team (Late Contact Info) Description 03/13/2023 External [place] [address] Provider, Scanning Social History Tobacco Use Types Packs/Day Years Used Date Smoking Tobacco: Never Assessed Sex and Gender Information Value Date Recorded Sex Assigned at Not on file Gender Identity Not on file Sexual Orientation Not on file documented as of this encounter Plan of Treatment Upcoming Encounters Date Type Department Care Team (Late Contact Info) Description 02/08/2024 10:00 AM EST Office Visit Hematology/Oncology at [address] [phone] Keisha Rodriguez APRN [address] [place] [address] [place] [address] 02/08/2024 10:30 AM EST Infusion Hematology Oncology at [address] [phone] 02/13/2024 10:00 AM EST Office Visit General Surgery at [address] [phone] Leticia Lieberman MD [address] [place] [address] 11/06/2069 Hospital Encounter [place] [address] Philly Zuluaga MD [facility] DR OBSTETRICS [place] [address] Scheduled Procedures Name Priority Associated Diagnoses Date/Ti me HYSTEROSCOPY, SURG W/ENDOMET RIAL SAMPLING, POLYPECTOMY (WRVU 4.17) Thickened endometrium documented as of this encounter Procedures Procedure Name Priority Date/Time Associated Diagnosis Comments SURGICAL PATHOLOGY SCAN Routine 03/13/2023 documented in this encounter Results * Scan Doc: Surgical Pathology (03/13/2023) Historical Provider MD HERNANDES MGR SCAN EX T ORDR/RSLT documented in this encounter Visit Diagnoses Not on filedocumented in this encounter Care Teams Public Works Supervisor Relationship Specialty Start Date End Date Dane Rick [address] [place] [phone] PCP - General Family Medicine 03/05/23 documented as of this encounter
--- OUTSIDE RECORDS SUMMARY | 2024-02-08 01:06 | XMS_ITS | Encounter Summary ---
[place] [address] Care Team Providers Care Hand I Cutter Name Role Phone Dane Rick Primary Care Provider [phone] Encounter Details Date Type Department Care Team ([facility] st Contact Info) Description 04/24/2023 Telephone General Surgery at [place] [address] [place] [phone] Leticia Lieberman MD [address] [place] [address] Social History Tobacco Use Types Packs/Day Years Used Date Smoking Tobacco: Never Smokeless Tobacco: Never Sex and Gender Information Value Date Recorded Sex Assigned at Not on file Gender Identity Not on file Sexual Orientation Not on file documented as of this encounter Miscellaneous Notes * Telephone Encounter - Heaven Delgado RN - 04/24/2023 1:21 PM EST RC to Kenyatta (name and verified). She called because they expect snow and ice in [place] and she would need to leave today for her appt tomorrow, but her daughter can't do that. She also did not wantto wait and cancel last minute. I let her know that I spoke with Dr Lieberman and we could do a Telehealth for follow up and Dr Lieberman could reach out to her PCP to have a visit for incision check, or we could reschedule for next week. Kenyatta prefers to see Dr Lieberman and appt rescheduled to next week 05/01/23 at 4:30pm. She currently denies, pain, redness, swelling or drainage from the incision. She states that the surgical bra is the most discomfort she is currently experiencing. Let her know that she can get another front closure sports bra and try that instead. Kenyatta states understanding of above information and is in agreement to above plan. She will call back if questions come up in the meantime. * Telephone Encounter - Edie Jennings - 04/24/2023 9:30 AM EST Patient is calling is afraid to come in tomorrow with the weather. Unsure of what to do. Pt CB#[phone] documented in this encounter Plan of Treatment Upcoming Encounters Date Type Department Care Team (Late st Contact Info) Description 02/08/2024 10:00 AM EST Office Visit Hematology/Oncology at [address] [phone] Keisha Rodriguez [employer] [address] [place] [address] [place] [address] 02/08/2024 10:30 AM EST Infusion Hematology Oncology at [address] [phone] 02/13/2024 10:00 AM EST Office Visit General Surgery at [address] [phone] Leticia Lieberman MD [address] [place] [address] [place] [address] 11/06/2069 Hospital Encounter Outpatient [place] [address] Philly Zuluaga MD [facility] [place] [address] Scheduled Procedures Name Priority Associated Diagnoses Date/Ti me HYSTEROSCOPY, SURG W/ENDOMET RIAL SAMPLING, POLYPECTOMY (WRVU 4.17) Thickened endometrium documented as of this encounter Visit Diagnoses Not on filedocumented in this encounter Care Teams Hand I Cutter Relationship Specialty Start Date End Date Rick, Dane [address] [place] [phone] PCP - General Family Medicine 03/05/23 documented as of this encounter
--- OUTSIDE RECORDS SUMMARY | 2024-02-08 01:06 | XMS_ITS | Encounter Summary ---
[place] [address] Care Team Providers Care Vault Teller Name Role Phone Dane Rick Primary Care Provider [phone] Encounter Details Date Type Department Care Team ([facility] st Contact Info) Description 03/28/2023 Telephone General Surgery at [address] [address] Elisabet Huizar Social History Tobacco Use Types Packs/Day Years Used Date Smoking Tobacco: Never Smokeless Tobacco: Never Sex and Gender Information Value Date Recorded Sex Assigned at Not on file Gender Identity Not on file Sexual Orientation Not on file documented as of this encounter Miscellaneous Notes * Telephone Encounter - Elisabet Huizar - 03/29/2023 4:08 PM EST Called pt to advise per Dr. Lieberman, she can continue taking 81 mg aspirin prior to surgery. Pt voiced understanding. Preop instruction letter including post op appts has been sent to pt via [facility] and mail. * Telephone Encounter - Elisabet Huizar - 03/28/2023 3:44 PM EST Patient is aware of DOS 04/16/22 for right partial mastectomy with Dr. Lieberman at [facility], arrival time to be determined. Pt is aware and voices understanding of the following: To expect a call from the [facility] presurgical nurse which will include arrival time. NPO after midnight except clear liquids up to 2 hours prior to the surgery. Must have a driver medic upon discharge and someone to stay with her for 24 hours after surgery. To call [employer] if she has tested positive for COVID. That the Prior Authorization Dept will check with insurance for any required prior authorization and will obtain prior to surgery if required. That it is patient's responsibility to check with insurance for benefits toward surgery. Scheduled POV: 04/17/23 at 11:00 am and 04/26/23 at 11:30 am Will call to advise if Dr. Lieberman recommended staying overnight both the night before and the night after surgery. Updated patient's address to [place], [place] as address listed in chart was incorrect. Pt stated that timcally called to have town updated from [place], [place] to [place], [place], but it was never changed. Called pt back and advised that Dr. Lieberman recommended pt stay overnight at a hotel the night after surgery since she will be coming in for post op the following day. Advised that surgery is scheduledfor 9:45 am, arrival: 8:15 am. Advised that it is her decision as to whether she would like to stayovernight the night before the surgery. Pt stated her ride is coming from another town to pick her up, so she will most likely stay overnight the night before. documented in this encounter Plan of Treatment Upcoming Encounters Date Type Department Care Team (Late st Contact Info) Description 02/08/2024 10:00 AM EST Office Visit Hematology/Oncology at [address] [phone] Keisha Rodriguez APRN [address] [place] [address] [place] [address] 02/08/2024 10:30 AM EST Infusion Hematology Oncology at [address] [phone] 02/13/2024 10:00 AM EST Office Visit General Surgery at [address] [phone] Leticia Lieberman MD [address] [place] [address] [place] [address] 11/06/2069 Hospital Encounter Outpatient [place] [phone] Philly Zuluaga MD [facility] OBSTETRICS [place] [address] Scheduled Procedures Name Priority Associated Diagnoses Date/Ti me HYSTEROSCOPY, SURG W/ENDOMET RIAL SAMPLING, POLYPECTOMY (WRVU 4.17) Thickened endometrium documented as of this encounter Visit Diagnoses Not on filedocumented in this encounter Care Teams Vault Teller Relationship Specialty Start Date End Date Dane Rick [address] [place] [phone] PCP - General Family Medicine 03/05/23 documented as of this encounter
--- OUTSIDE RECORDS SUMMARY | 2024-02-08 01:06 | XMS_ITS | Encounter Summary ---
Author Organization [facility] [place] [address] Care Team Providers Care Retail Associate Manager Bilingual Name Role Phone Dane Rick Primary Care Provider Encounter Details Date Type Department Care Team ([facility] st Contact Info) Description 03/05/2023 Notes Only Hematology and Oncology at [facility] [place] [address] Diamond Jefferson Social History Tobacco Use Types Packs/Day Years Used Date Smoking Tobacco: Never Assessed Sex and Gender Information Value Date Recorded Sex Assigned at Not on file Gender Identity Not on file Sexual Orientation Not on file documented as of this encounter Progress Notes * Diamond Jefferson - 03/05/2023 1:34 PM EST Patient Info: Kenyatta [place] 1940 Dr[address] Aury Day Attn: [facility] Pathology Department From: [facility] Breast [facility] [phone] [x]Urgent [] For Review [] Please Reply []Please Recycle Please send the following materials ONLY (this may likely require review by an on-site pathologist at your institution to select appropriate slides): All breast cancer related pathology reports including any original HER2 FISH, OncotypeDX and other outside consultation reports. Diagnostic H&E slide(s) of tumor sufficient to confirm breast tumor type, grade, size, and to confirm presence of metastatic disease in lymph nodes if present. Send a customer relations representative slide for each separate focus of tumor if multiple tumors present. Please include unstained slides and blocks NOTE: All slides do not need to be sent. Immunohistochemistry stained slides of prognostic markers (ER, [place] and HER2) performed on tumor(s) if available. If patient has metastatic disease (i.e. bone, lung, liver) that has been biopsied, send diagnostic H&E slide(s) of metastatic disease with immunohistochemistry if performed. Fed-Ex # [id number] to send overnight Mail to: Department of Pathology [facility] Attn: Anatomic Pathology, [place] [address] If questions please call [phone] Notice of Confidentiality: The documents accompanying this FAX transmission cover contain information from [facility] that is confidential and privileged. The information [...] of the documents at no cost to you documented in this encounter Plan of Treatment Upcoming Encounters Date Type Department Care Team (Late st Contact Info) Description 02/08/2024 10:00 AM EST Office Visit Hematology/Oncology at [address] [phone] Keisha Rodriguez APRN [address] [place] [address] [place] [address] 02/08/2024 10:30 AM EST Infusion Hematology Oncology at [address] [phone] 02/13/2024 10:00 AM EST Office Visit General Surgery at [address] [phone] Leticia Lieberman MD [address] [place] [address] [place] [address] 11/06/2069 Hospital Encounter [place] [address] Philly Zuluaga MD [facility] OBSTETRICS [place] [address] Scheduled Procedures Name Priority Associated Diagnoses Date/Ti me HYSTEROSCOPY, SURG W/ENDOMET RIAL SAMPLING, POLYPECTOMY (WRVU 4.17) Thickened endometrium documented as of this encounter Visit Diagnoses Not on filedocumented in this encounter Care Teams Retail Associate Manager Bilingual Relationship Specialty Start Date End Date Dane Rick [address] [place] [phone] PCP - General Family Medicine 03/05/23 documented as of this encounter
--- OUTSIDE RECORDS SUMMARY | 2024-02-08 01:06 | XMS_ITS | Encounter Summary ---
Author Organization [facility] Address [facility] [place] [address] Care Team Providers Care Clinical Psychology Teacher Name Role Phone Dane Rick Primary Care Provider [phone] Reason for Referral * Consultation (Routine) - Closed Specialty Diagnoses / Procedures Referred By Franky ferreira Referred To Contact Radiation Oncology Diagnoses Invasive ductal carcinoma of right breast Leticia Lieberman MD [address] [place] [address] Ann James MD [facility] [place] [address] Referral ID Status Reason Start Date Expiration Date V isits Requested Visits Authorized [id number] Closed Consult, Test & Treat 05/01/2023 04/30/2024 1 1 Reason for Visit * Reason Comments Follow-up Hospital check Encounter Details Date Type Department Care Team ([facility] st Contact Info) Description 05/01/2023 4:30 PM EST Office Visit General Surgery at [address] [address] Leticia Lieberman MD [address] [place] [phone] Invasive ductal carcinoma of right breast (Primary [...] Sign Reading Time Taken Comments Blood Pressure - - Pulse - - Temperature 37.1 ??C (98.8 ??F) 05/01/2023 3:58 PM ES T Respiratory Rate - - Oxygen Saturation - - Inhaled Oxygen Concentration - - Weight - - Height - - Body Mass Index - - documented in this encounter Progress Notes * Leticia Lieberman MD - 05/01/2023 4:30 PM EST Breast Surgical Oncology: Reason for Visit: right breast cancer HPI: Kenyatta is an 82y woman hx CVA on ASA, HTN, ABDOULAYE, ?CHF who presents with palpation detected IDC (ER+/NH-/HER2-) [id number] s/p right partial mastectomy 04/16/2023. [id number] Feeling well although still a little tired and down. She is taking her vitamin D. She felt better when she got out of the house today. She has not had pain. She is accompanied by her daughter. She [...] heart failure? Metronidazole Penicillins Rash Physical Exam: Temperature 37.1 ??C (98.8 ??F). General:pleasant, NAD Neuro: A and O x [...] +ptosis Right Breast: lateral incision well approximated. No palpable fluid collections. No erythema. Recent Imaging: no additional imaging Surgical pathology: IDC Grade 2 25mm 4 foci of invasive cancer Margins negative Additional nodule was lymph node - negative for cancer. Assessment & Plan: Kenyatta is an 82y woman with significant comorbidities who presents with a palpation detected rightIDC, intermediate grade ER+/NH-/HER2-. [id number] She is now s/p right partial mastectomy 04/16. [id number] - I will touch base with Dr. Stauffer re: oncotype - I will place referrals for radiation oncology - We discussed ongoing post operative expectations: - No heavy lifting (>10lbs) or strenuous activity x4 weeks - Ok for ROM exercises - Ok for personal bra - No soaking in hot tub, bath, swimming x6 weeks until the incision is completely healed - Ok for personal supplements - Follow up in 3 months #Dehydration - Encouraged fluid intake documented in this encounter Plan of Treatment Upcoming Encounters Date Type Department Care Team (Late st Contact Info) Description 02/08/2024 10:00 AM EST Office Visit Hematology/Oncology at [address] [phone] Keisha Rodriguez APRN [address] [place] [address] [place] [address] 02/08/2024 10:30 AM EST Infusion Hematology Oncology at [address] [phone] 02/13/2024 10:00 AM EST Office Visit General Surgery at [address] [phone] Leticia Lieberman MD [address] [place] [address] 11/06/2069 Hospital Encounter [place]patient [place] [address] Philly Zuluaga MD [facility] [place] [address] Scheduled Procedures Name Priority Associated Diagnoses Date/Ti me HYSTEROSCOPY, SURG W/ENDOMET RIAL SAMPLING, POLYPECTOMY (WRVU 4.17) Thickened endometrium Scheduled Referrals Name Type Priority Associated Diagnoses Orde r Schedule Referral to Radiation Oncology Outpatient Referral Routine Invasive ductal carcinoma of right breast Ordered: 05/01/2023 documented as of this encounter Visit Diagnoses Diagnosis Invasive ductal carcinoma of right breast- Primary Status post partial mastectomy of right breast documented in this encounter Care Teams Clinical Psychology Teacher Relationship Specialty Start Date End Date Dane Rick [address] [place] [phone] PCP - General Family Medicine 03/05/23 documented as of this encounter
--- OUTSIDE RECORDS SUMMARY | 2024-02-08 01:06 | XMS_ITS | Encounter Summary ---
Author Organization [place] [address] Care Team Providers Care Gift Packer Name Role Phone Dane Rick Primary Care Provider [phone] Encounter Details Date Type Department Care Team ([facility] st Contact Info) Description 04/03/2023 Telephone General Surgery at [address] [address] Eliasbet Huizar Social History Tobacco Use Types Packs/Day Years Used Date Smoking Tobacco: Never Smokeless Tobacco: Never Sex and Gender Information Value Date Recorded Sex Assigned at Not on file Gender Identity Not on file Sexual Orientation Not on file documented as of this encounter Miscellaneous Notes * Telephone Encounter - Elisabet Huizar - 04/12/2023 9:12 AM EST Called PCP's office to follow up on EKG. Spoke with escrow representative who advised she would send EKG and interpretation. EKG and results received from PCP's office. Same has been faxed to [facility] and sent to medical records for scanning. * Telephone Encounter - Elisabet Huizar - 04/09/2023 4:27 PM EST Called HARINDER Hoffman at [facility] and asked if PCP Clearance would be sufficient for 04/[address] Lieberman. Advised that pt sees PCP every couple of months, request for clearance had already been sent to that office along with request for EKG. Per Yasmin, PCP clearance will be okay as long asEKG has been completed. Vicky from PCP's office returned call and stated she would have office send clearance and ask thatEKG tracing be faxed to our office. Received clearance from PCP's office, waiting for EKG tracing. Same has been faxed to [facility] and sent to Medical Records for scanning. * Telephone Encounter - Elisabet Huizar - 04/09/2023 10:11 AM EST Received call from [facility] Pre[facility] nurse stating that cardiac clearance, EKG and BMP are needed for 04/16/[address] Lieberman. Called pt's top case assembler, Vicky Chamberlain, and lm asking for return call and explained above. * Telephone Encounter - Elisabet Huizar - 04/06/2023 10:39 AM EST Received call from pt's Dioramist, Vicky Chamberlain at PCP's office regarding pt's surgery and appts. Returned call to Sophie who stated that pt received preop instructions letter and was confused and upset about appts. Advised that I had attempted to call pt and LM for her to call me after we received a call from [facility] repeater operator who had stated that pt was confused about appts, stating that they were not correct. Confirmed surgery date and time and related post op appts. Advised that pthad chosen the times for post op appts herself and was aware of them. Sophie advised that she wouldsend message to both pt and her daughter confirming all appts. * Telephone Encounter - Elisabet Huizar - 04/03/2023 4:33 PM EST Called pt to go over details for her surgery scheduled for 04/16/[address] Lieberman as I received a message that [facility] repeater operator, Justa, discussed details regarding surgery and appts with this office with patient and patient informed rep that she was going to cancel surgery because information given by Justa was different than what I had told her during scheduling call. Per message given to me, Justa stated the pt was very upset. LM for pt to return call. Attempted to call Registration to ask what information was given to patient to make her so upset and to advise that pt should be referred to this office with any questions regarding details about appts scheduled with this office. Registration office was closed. documented in this encounter Plan of Treatment Upcoming Encounters Date Type Department Care Team (Late st Contact Info) Description 02/08/2024 10:00 AM EST Office Visit Hematology/Oncology at [address] [phone] Keisha Rodriguez APRN [address] [place] [address] [place] [address] 02/08/2024 10:30 AM EST Infusion Hematology Oncology at [address] [address] 02/13/2024 10:00 AM EST Office Visit General Surgery at [address] [address] Leticia Lieberman MD [address] [place] [address] 11/06/2069 Hospital Encounter [place] [address] Philly Zuluaga MD [facility] [place] [address] Scheduled Procedures Name Priority Associated Diagnoses Date/Ti me HYSTEROSCOPY, SURG W/ENDOMET RIAL SAMPLING, POLYPECTOMY (WRVU 4.17) Thickened endometrium documented as of this encounter Visit Diagnoses Not on filedocumented in this encounter Care Teams Gift Packer Relationship Specialty Start Date End Date Dane Rick [address] [place] [address] PCP - General Family Medicine 03/05/23 documented as of this encounter
--- OUTSIDE RECORDS SUMMARY | 2024-02-08 01:06 | XMS_ITS | Encounter Summary ---
[place] [address] Care Team Providers Care Kicking Machine Operator Name Role Phone Dane Rick Primary Care Provider [phone] Encounter Details Date Type Department Care Team (Late Contact Info) Description 03/23/2023 Telephone General Surgery at [address] [address] Heaven Delgado RN Social History Tobacco Use Types Packs/Day Years Used Date Smoking Tobacco: Never Smokeless Tobacco: Never Sex and Gender Information Value Date Recorded Sex Assigned at Not on file Gender Identity Not on file Sexual Orientation Not on file documented as of this encounter Miscellaneous Notes * Telephone Encounter - Heaven Delgado RN - 03/23/2023 11:55 AM EST Spoke with Arvind at Dr Rick's office to request a medical clearance for partial mastectomy and SNbiopsy. I requested for last office note (pt was seen 03/08/23), EKG and a note stating that she is OK to proceed with surgery or we can fax over a sheet to fill out. Arvind will put in a message and office will call if need additional information. documented in this encounter Plan of Treatment Upcoming Encounters Date Type Department Care Team (Late Contact Info) Description 02/08/2024 10:00 AM EST Office Visit Hematology/Oncology at [address] [address] Keisha Rodriguez APRN [address] [place] [address] [place] [address] 02/08/2024 10:30 AM EST Infusion Hematology Oncology at [address] [address] 02/13/2024 10:00 AM EST Office Visit General Surgery at [address] [address] Leticia Lieberman MD [address] [place] [address] 11/06/2069 Hospital Encounter [place]patient [place] [address] Philly Zuluaga MD [facility] DR OBSTETRICS [place] [address] Scheduled Procedures Name Priority Associated Diagnoses Date/Ti me HYSTEROSCOPY, SURG W/ENDOMET RIAL SAMPLING, POLYPECTOMY (WRVU 4.17) Thickened endometrium documented as of this encounter Visit Diagnoses Not on filedocumented in this encounter Care Teams Kicking Machine Operator Relationship Specialty Start Date End Date Dane Rick [address] [place] [phone] PCP - General Family Medicine 03/05/23 documented as of this encounter
--- OUTSIDE RECORDS SUMMARY | 2024-02-08 01:06 | XMS_ITS | Encounter Summary ---
Author Organization [facility] Address [address] [place] [address] Care Team Providers Care Income Tax Adjuster Name Role Phone Vicky Chamberlain Unavailable [phone] Dane Rick MD Primary Care Provider [phone] Leticia Lieberman Unavailable Mendoza Guzmán MD Unavailable [phone] Encounter Details Date Type Department Care Team (Late st Contact Info) Description 01/21/2024 Patient Outreach [facility] Family Medicine - [facility] [address] [place] [address] Vicky Chamberlain LICSW [address] [address] Social History Tobacco Use Types Packs/Day Years [...] place to sleep or slept in a alf (including now)? No 03/15/2023 Interpersonal Safety Answer [...] as of this encounter Progress Notes * Vicky Chamberlain, LATRICE - 01/21/2024 1157 EDT [facility] Integrated Care Management Care Coordination Note Automatic Clipper spoke with Kenyatta on 01/21/24 in order to coordinate care. Kenyatta notes many concerns about her medical care, CM recommended that she speak with patient advocacy, but she declines today. We were unable to create medical centered goals during our conversation today, and Hari feels that she would be able to contact her medical providers for answers to her diagnostic concerns. We agree that she will be closed to care management at this time. PLAN: No follow up, new referral is welcome as needed. LATRICE ENCISO 01/21/2024 11:58 documented in this encounter Plan of Treatment Upcoming Encounters Date Type Department Care Team (Late st Contact Info) Description 05/19/2024 11:00 EST Office Visit [facility] Family [address], [address] [address] Dane Rick MD [address] [place] [address] [address] [place] [address] documented as of this encounter Visit Diagnoses Not on filedocumented in this encounter Care Teams Income Tax Adjuster Relationship Specialty Start Date End Date Dane Rick MD [address] [place] [address] [address] [place] [address] PCP - General Family Medicine - Primary Care 08/09/22 Vicky Chamberlain LICSW Automatic Clipper 06/12/22 01/22/24 Leticia Lieberman [address] [place] [phone] General Surgery 04/03/23 Mendoza Guzmán MD [address] [place] [address] [address] [place] [address] Otolaryngology 04/03/23 documented as of this encounter
--- OUTSIDE RECORDS SUMMARY | 2024-02-08 01:06 | XMS_ITS | Encounter Summary ---
[place] [address] Care Team Providers Care Fiberline Supervisor Name Role Phone Dane Rick Primary Care Provider [phone] Reason for Visit * Surgical (Routine) - Closed Specialty Diagnoses / Procedures Referred By Franky ferreira Referred To Contact Diagnoses Invasive ductal carcinoma of right breast Procedures PRO MASTECTOMY PARTIAL Leticia Lieberman MD [address] [place] [address] [address] Referral ID Status Reason Start Date Expiration Date V isits Requested Visits Authorized [id number] Closed Surgical Non DH PCP 03/29/2023 09/25/2023 1 1 Encounter Details Date Type Department Care Team (Late Contact Info) Description 04/16/2023 9:45 AM EST Ext Surgery or Single Event [address] [address] Leticia Lieberman MD [address] [place] [address] Invasive ductal carcinoma of right breast Social History Tobacco Use [...] 10:00 AM EST Office Visit Hematology/Oncology at [address] [address] Keisha Rodriguez APRN [address] [place] [address] DR MEDICAL ONCOLOGY [place], [place] [address] 02/08/2024 10:30 AM EST Infusion Hematology Oncology at [address] [address] 02/13/2024 10:00 AM EST Office Visit General Surgery at [address] [address] Leticia Lieberman MD [address] [place] [address] 11/06/2069 Hospital Encounter [place] [address] Philly Zuluaga MD [facility] OBSTETRICS [place] [address] Scheduled Procedures Name Priority Associated Diagnoses Date/Ti me HYSTEROSCOPY, SURG W/ENDOMET RIAL SAMPLING, POLYPECTOMY (WRVU 4.17) Thickened endometrium documented as of this encounter Visit Diagnoses Diagnosis Invasive ductal carcinoma of right breast documented in this encounter Care Teams Fiberline Supervisor Relationship Specialty Start Date End Date Dane Rick [address] [place] [phone] PCP - General Family Medicine 03/05/23 documented as of this encounter
--- OUTSIDE RECORDS SUMMARY | 2024-02-08 01:07 | XMS_ITS | Encounter Summary ---
Author Organization [facility] Address [address] [place] [address] Care Team Providers Care Catheterization Laboratory Technician Name Role Phone Vicky Chamberlain Unavailable [phone] Dane Rick MD Primary Care Provider [phone] Leticia Lieberman Unavailable Mendoza Guzmán MD Unavailable [phone] Reason for Visit * Reason Onset Date Comments Appointment Related 10/24/2023 Encounter Details Date Type Department Care Team (Late st Contact Info) Description 10/24/[address] [facility] Adult Neurology - [facility] [address] [place] [address] Janell Jj, CASEWORK SPECIALIST [address] [place] [address] [address] [place] [address] Appointment Related Social History Tobacco Use Types Packs/Day Years Used Date Smoking Tobacco: Never Smokeless Tobacco: Never Alcohol Use Standard Drinks/Week Comments Yes 0 (1 standard drink = 0.6 oz pur e alcohol) occasionally Overall Financial Resource Strain (CARDIA) Barabrae r Date Recorded How hard is it [...] place to sleep or slept in a fpc (including now)? No 03/15/2023 Interpersonal Safety Answer [...] you have serious difficulty h earing? No 08/13/2023 Are you blind or do you have [...] encounter Miscellaneous Notes * Telephone Encounter - Ban Valles MA - 10/24/2023 0925 EDT I called Janell and KARINA regarding recall. I notified her that we have an available online clinic 10/25/23 in the morning and afternoon. I provided her with the call center callback number. If/when Kenyatta calls back and wants to schedule for 10/25/23, please schedule her for any of the available times (This includes the held times in the morning). documented in this encounter Plan of Treatment Upcoming Encounters Date Type Department Care Team (Late st Contact Info) Description 05/19/2024 11:00 EST Office Visit [facility] Family Medicine [address], [facility] [address] [place] [address] Dane Rick MD [address] [place] [phone] documented as of this encounter Visit Diagnoses Not on filedocumented in this encounter Care Teams Catheterization Laboratory Technician Relationship Specialty Start Date End Date Dane Rick MD [address] [place] [phone] PCP - General Family Medicine - Primary Care 08/09/22 Vicky Chamberlain [facility] Baggage Porter 06/12/22 01/22/24 Leticia Lieberman [address] [place] [address] General Surgery 04/03/23 Mendoza Guzmán MD [address] [place] [address] [address] [place] [address] Otolaryngology 04/03/23 documented as of this encounter
--- OUTSIDE RECORDS SUMMARY | 2024-02-08 01:07 | XMS_ITS | Encounter Summary ---
Author Organization [facility] Address [address] [place] [address] Care Team Providers Care Battery Tester And Repairer Name Role Phone Vicky Chamberlain Unavailable [phone] Dane Rick MD Primary Care Provider [phone] Leticia Lieberman Unavailable Mendoza Guzmán MD Unavailable [phone] Reason for Visit * Reason Onset Date Comments Post-ED Follow Up 01/02/2024 Encounter Details Date Type Department Care Team (Late st Contact Info) Description 01/02/2024 Telephone [facility] Family Medicine [facility] [address] , [facility] [address] [place] [address] Ara Mccullough RN Post-ED Follow Up Social History Tobacco Use Types Packs/Day Years [...] place to sleep or slept in a residential (including now)? No 03/15/2023 Interpersonal Safety Answer [...] encounter Miscellaneous Notes * Telephone Encounter - Ara Mccullough RN - 01/02/2024 0830 EDT Transition of Care Call - ED/Urgent Care Discharge Follow Up: We see you were in the Emergency Department for generalized fatigue on 12/29. How are you feeling/symptoms improving? No: I have cancer and I stopped radiation Do you have any questions? Yes See summary below. Can we schedule a follow up visit? Yes 01/06 Transportation to follow appointment?: Yes Kenyatta shares in a lengthy conversation that she is lacking trust in the healthcare system since her 's which she feels could have been prevented. He walked into the hospital and nevercame out. She endorses anxiety regarding her radiation treatments that she states were performed at [facility] she had concerns that they treated her liver instead of her breast because of the increasing amount of time of her treatment visits and the positions they were putting her in for treatment. She states for that reason she quit radiation. She cannot remember the last time she has seen a provider and would like advice on how to move forward with her overall medical health. She shares she does remember a nice visit with Dr. Madison. She's upset with the clinic because she said she drove from [place] for an appointment with Dr. Rick multiple times to be told he wasn't available. Unclear of dates or specific details. documented in this encounter Plan of Treatment Upcoming Encounters Date Type Department Care Team (Late st Contact Info) Description 05/19/2024 11:00 EST Office Visit [facility] Family [address], [address] [address] Dane Rick MD [address] [place] [phone] documented as of this encounter Visit Diagnoses Not on filedocumented in this encounter Care Teams Battery Tester And Repairer Relationship Specialty Start Date End Date Dane Rick MD [address] [place] [phone] PCP - General Family Medicine - Primary Care 08/09/22 Vicky Chamberlain [facility] Telephone Station Installer 06/12/22 01/22/24 Leticia Lieberman [address] [place] [phone] General Surgery 04/03/23 Mendoza Guzmán MD [address] [place] [phone] Otolaryngology 04/03/23 documented as of this encounter
--- OUTSIDE RECORDS SUMMARY | 2024-02-08 01:07 | XMS_ITS | Encounter Summary ---
Author Organization [facility] Address [address] [place] [address] Care Team Providers Care Residency Director Name Role Phone Vicky Chamberlain Unavailable [phone] Dane Rick MD Primary Care Provider [phone] Leticia Lieberman Unavailable Mendoza Guzmán MD Unavailable [phone] Reason for Referral * PT/OT/ST (Routine/Next Available) - Closed Specialty Diagnoses / Procedures Referred By Franky ferreira Referred To Contact Rehab Therapies Diagnoses Left foot drop Héctor Jenkins DPM [address] [facility] [address] [place] [id number] [facility] [address] [place] [id number] Referral ID Status Reason Start Date Expiration Date V isits Requested Visits Authorized [id number] Closed Specialty Services Required 08/29/2023 1 1 Question Answer Reason for Request: left foot drop, left ankle weakness Comments This referral may serve as a referral to occupational therapy if appropriate. Reason for Visit * Reason Comments New Patient Visit * Consult (Routine/Next Available) - Closed Specialty Diagnoses / Procedures Referred By Franky ferreira Referred To Contact Podiatry Diagnoses Weakness of left foot Dane Rick MD [address] [place] [address] [address] [place] [address] [facility] [address] [place] [address] Referral ID Status Reason Start Date Expiration Date V isits Requested Visits Authorized [id number] Closed Specialty Services Required 08/20/2023 1 1 Encounter Details Date Type Department Care Team (Late st Contact Info) Description 08/29/2023 11:00 EDT Office Visit [facility] [address] [place], [place] [id number] Héctor Jenkins, [facility] [address] [facility] [address] [place] [address] Left foot drop (Primary Dx) Social History Tobacco Use Types [...] Taken Comments Blood Pressure - - Pulse 55 08/29/2023 1100 EDT Temperature - - Respiratory Rate - - Oxygen Saturation 98% 08/29/2023 1100 EDT Inhaled Oxygen Concentration - - Weight - - Height - - Body Mass Index - - documented in this encounter Functional Status Functional [...] as of this encounter Progress Notes * Laura Anaya MA - 08/29/2023 1100 EDT New patient left foot weakness. Last XR of left foot in 2019. Reason for referral request: chronic left foot weakness, falls toward that side. * Héctor Jenkins, DPM - 08/29/2023 1100 EDT CHIEF COMPLAINT: Chief Complaint Patient presents with Left Foot - New Patient Visit SUBJECTIVE: Kenyatta Vizcaino is a 82 y.o. female who presents as a new patient for evaluation of concerns to her left foot. Seen today with her daughter. She states that recently she noticed that she has become increasingly unstable to her left side. She states that she feels that her toes are curling under her foot which is causing her to catch the toes while she walks and lose her balance/fall. She has not had a significant fall but has had several where she has had to catch herself before falling. She denies any recent changes with her feet or legs. She does note that she sustained a significant fracture 50+ years ago to this lower leg that she states was missed at first, causing her to walk on it for a while before it was discovered. Once it was discovered, she states that an experimental surgery was performed in order to save her leg from amputation. She has decreased sensation in her left side and apparently has her whole life as she does not remember being in pain when her leg was nearly amputated due to the fracture. Has decreased sensation at norm. Denies other pedal complaints. Denies constitutional symptoms. I reviewed the patients problem list, social history, allergies, medications, family history of surgical history. See scanned document. ROS: Constitutional: negative for, fever OBJECTIVE: Pulse 55 SpO2 98% Gen: A+Ox3, NAD. Pleasant Vascular: Dorsalis pedis and posterior pulses diminished, CFT immediate to all digits, TG warm to warm within normal limits. Mild-moderate Edema present Neurological: protective sensation diminished bilaterally Dermatological: negative erythema, negative ecchymosis, no open lesions, no clinical signs of infection present Musculoskeletal: no pain with palpation of the foot or ankle. Weakness in eversion and dorsiflexionagainst resistance, non-painful. No weakness with inversion or plantarflexion. No pain with palpation of the tendons. No palpable deficits noted. Noted flexor stabilization hammertoes on the left, reducible. Instability noted with standing and gait. Radiographs of were ordered and taken in the office today. These were independently reviewed by me. FINDINGS: Bones/joints: No fracture, dislocation or other acute bone or joint abnormality. Chronic degenerative changes are present especially in the tarsal joints and 1st and 2nd tarsometatarsal joints with joint space narrowing, sclerosis and osteophytes. There is hallux valgus and bunion. No bony destruction is seen. ASSESSMENT/PLAN: 1. Left foot drop I spoke with Kenyatta and her daughter today regarding her concerns. 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 At her age, her primary goals are to ambulate safely without fear of falling. With her foot drop she has weakness with eversion and dorsiflexionwhich is contributing to her instability, if not driving it. I recommend an AFO and physical therapy to strengthen the evertors and to train appropriate gait. Recommendations for OTC AFOs given today, prescription for custom AFO sent. Referral for physical therapy sent as well. May require neurology consult in the future if symptoms do not improve with these measures. - XR ANKLE LEFT 3 OR MORE VIEWS - XR TIBIA FIBULA LEFT 2 VIEWS - AMB CONS/FOLLOW UP PHYSICAL THERAPY [place] [facility]; Future Kenyatta will return to clinic in as needed to re-evaluate the current treatment plan and assess treatment progress. Thank you for allowing me to be a part of your treatment today I spent a total of 30 minutes on the date of this encounter meeting with the patient and reviewing documentation/coordinating care as described in the above note. No procedures were performed at the time of the visit. This note was prepared using voice recognition software and the EMR. There may be inadvertent errors and omissions. Héctor Jenkins DPM 09/03/2023 documented in this encounter Plan of Treatment Upcoming Encounters Date Type Department Care Team (Late st Contact Info) Description 05/19/2024 11:00 EST Office Visit [facility] [address], [address] [place] [address] Dane Rick MD [address] [facility] [address] [place] [address] Scheduled Referrals Name Type Priority Associated Diagnoses Order Schedule AMB CONS/FOLLOW UP PHYSICAL TH[facility]APY [place] [facility] Outpatient Referral Routine/Next Available Left foot drop Expected: 09/12/2023 (Approximate), Expires: 08/28/2024 documented as of this encounter Procedures Procedure Name Priority Date/Time Associated Diagnosis Comments XR TIBIA FIBULA LEFT 2 VIEWS Routine 08/29/2023 11:55 EDT Left foot drop XR ANKLE LEFT 3 OR MORE VIEWS Routine 08/29/2023 11:54 EDT Left foot drop documented in this encounter Results * XR TIBIA FIBULA LEFT 2 VIEWS (08/29/2023 11:55 EDT) Anatomical Region Laterality Modality Lower Extremities Computed Radio graphy 08/29/2023 11:5 0 EDT Impressions 09/02/2023 10:28 EDT No acute abnormality. THIS DOCUMENT HAS BEEN ELECTRONICALLY SIGNED BY CHRIS FLANAGAN MD FOR ANY QUESTIONS OR CONCERNS REGARDING THIS REPORT PLEASE CALL [facility] AT [phone] [facility] 09/02/2023 10:28 EDT PROCEDURE INFORMATION: Exam: XR Left Tibia and Fibula Exam date and time: 08/29/2023 11:50 AM Age: 82 years old Clinical indication: Foot drop, left foot; Pain; Lower leg; Additional info: Post op left leg TECHNIQUE: Imaging protocol: Radiologic exam of the left tibia and fibula. Views: 2 views. COMPARISON: CR LOWER LEG-LEFT (TIB-FIB)-2VIEW 04/15/2019 8:49 PM FINDINGS: Bones/joints: No fracture or other acute bone or joint abnormality. Chronic degenerative changes are present in the knee with medial joint space narrowing, sclerosis and osteophytes. Soft tissues: Normal. Procedure Note Chris Flanagan MD - 09/02/2023 PROCEDURE INFORMATION: Exam: XR Left Tibia and Fibula Exam date and time: 08/29/2023 11:50 AM Age: 82 years old Clinical indication: Foot drop, left foot; Pain; Lower leg; Additional info: Post op left leg TECHNIQUE: Imaging protocol: Radiologic exam of the left tibia and fibula. Views: 2 views. COMPARISON: CR LOWER LEG-LEFT (TIB-FIB)-2VIEW 04/15/2019 8:49 PM FINDINGS: Bones/joints: No fracture or other acute bone or joint abnormality. Chronic degenerative changes are present in the knee with medial joint space narrowing, sclerosis and osteophytes. Soft tissues: Normal. IMPRESSION No acute abnormality. THIS DOCUMENT HAS BEEN ELECTRONICALLY SIGNED BY CHRIS FLANAGAN MD FOR ANY QUESTIONS OR CONCERNS REGARDING THIS REPORT PLEASE CALL [facility] [phone] Héctor Jenkins DPM IMG DIAGNOSTIC IM AGING ORDERABLES * XR ANKLE LEFT 3 OR MORE VIEWS (08/29/2023 11:54 EDT) Anatomical Region Laterality Modality Lower Extremities, Ankle Left Compute d Radiography 08/29/2023 11:5 4 EDT Impressions 09/02/2023 10:14 EDT Chronic degenerative disease. No acute abnormality. THIS DOCUMENT HAS BEEN ELECTRONICALLY SIGNED BY CHRIS FLANAGAN MD FOR ANY QUESTIONS OR CONCERNS REGARDING THIS REPORT PLEASE CALL [facility] AT [phone] Narrative 09/02/2023 10:14 EDT PROCEDURE INFORMATION: Exam: XR Left Ankle Exam date and time: 08/29/2023 11:54 AM Age: 82 years old Clinical indication: Foot drop, left foot; Pain; Ankle TECHNIQUE: Imaging protocol: Radiologic exam of the left ankle. Views: 3 or more views. COMPARISON: DX XR TIBIA FIBULA LEFT 2 VIEWS 08/29/2023 11:50 AM FINDINGS: Bones/joints: No fracture, dislocation or other acute bone or joint abnormality. Chronic degenerative changes are present especially in the tarsal joints and 1st and 2nd tarsometatarsal joints with joint space narrowing, sclerosis and osteophytes. There is hallux valgus and bunion. No bony destruction is seen. Soft tissues: Normal. Procedure Note Chris Flanagan MD - 09/02/2023 PROCEDURE INFORMATION: Exam: XR Left Ankle Exam date and time: 08/29/2023 11:54 AM Age: 82 years old Clinical indication: Foot drop, left foot; Pain; Ankle TECHNIQUE: Imaging protocol: Radiologic exam of the left ankle. Views: 3 or more views. COMPARISON: DX XR TIBIA FIBULA LEFT 2 VIEWS 08/29/2023 11:50 AM FINDINGS: Bones/joints: No fracture, dislocation or other acute bone or joint abnormality. Chronic degenerative changes are present especially in the tarsal joints and 1st and 2nd tarsometatarsal joints with joint space narrowing, sclerosis and osteophytes. There is hallux valgus and bunion. No bony destruction is seen. Soft tissues: Normal. IMPRESSION Chronic degenerative disease. No acute abnormality. THIS DOCUMENT HAS BEEN ELECTRONICALLY SIGNED BY CHRIS FLANAGAN MD FOR ANY QUESTIONS OR CONCERNS REGARDING THIS REPORT PLEASE CALL [facility] [phone] Héctor Jenkins DPM IMG DIAGNOSTIC IM AGING ORDERABLES documented in this encounter Visit Diagnoses Diagnosis Left foot drop- Primary Other acquired deformity of ankle and foot documented in this encounter Orders Equipment Count Last Ordered Date First Orde red Date GENERIC ORTHO VENDOR DME 1 09/07/2023 documented in this encounter Care Teams Residency Director Relationship Specialty Start Date End Date Dane Rick MD [address] [place] [address] [address] [place] [phone] PCP - General Family Medicine - Primary Care 08/09/22 Vicky Chamberlain [facility] Bond Manager 06/12/22 01/22/24 Leticia Lieberman [address] [place] [phone] General Surgery 04/03/23 Mendoza Guzmán MD [address] [place] [address] [address] [place] [phone] Otolaryngology 04/03/23 documented as of this encounter
--- OUTSIDE RECORDS SUMMARY | 2024-02-08 01:07 | XMS_ITS | Encounter Summary ---
Author Organization [facility] Address [address] [place] [address] Care Team Providers Care Peeled Potato Inspector Name Role Phone Vicky Chamberlain Unavailable [phone] Dane Rick MD Primary Care Provider [phone] Leticia Lieberman Unavailable Mendoza Guzmán MD Unavailable [phone] Reason for Visit * Reason Onset Date Comments Weakness 08/13/2023 Encounter Details Date Type Department Care Team (Late st Contact Info) Description 08/13/2023 Telephone [facility] Medicine [address], [facility] [address] [place] [address] Dane Rick MD [address] [facility] [address] [place] [address] Weakness Social History Tobacco Use Types Packs/Day Years [...] place to sleep or slept in a correction (including now)? No 03/15/2023 Interpersonal Safety Answer [...] Telephone Encounter - Dane Rick MD - 08/13/2023 1207 EDT Noted thank you * Telephone Encounter - Joyce Lord LPN - 08/13/2023 1148 EDT This selling underwriter spoke with pt's daughter, Adriana (on JAMMIE). She verifies the previously reported information. Pt is on radiation for cancer tx, daughter unsure if that is related to issues. She states that pt has been pushing fluids. Is eating and drinking. She states that pt is more confused/forgetful inthe last 1-2 days. She reports that pt is dizzy and weak, as well as disoriented at times. Advised that pt be seen in ED for cardiac/neuro concerns, as our office would not be equipped to do testing/treatment of those issues. Adriana agreeable, states that she will take pt for eval. * Telephone Encounter - Radha Carmen - 08/13/2023 1136 EDT Patients daughter called because she has confusion, weakness & dizziness. She is concerned about TIA & heart. She's wondering if she should bring her to ED. She can be reached at [phone] documented in this encounter Plan of Treatment Upcoming Encounters Date Type Department Care Team (Late st Contact Info) Description 05/19/2024 11:00 EST Office Visit [facility] - [place] [address], [address] [place] [address] Dane Rick MD [address] [place] [address] [address] [place] [address] documented as of this encounter Visit Diagnoses Not on filedocumented in this encounter Care Teams Peeled Potato Inspector Relationship Specialty Start Date End Date Dane Rick MD [address] [facility] 2 [place] [phone] PCP - General Family Medicine - Primary Care 08/09/22 Vicky Chamberlain LIBRARY HISTORIAN Environmental Health And Safety Leader 06/12/22 01/22/24 Leticia Lieberman [address] [place] [phone] General Surgery 04/03/23 Mendoza Guzmán MD [address] [place] [address] [address] [place] [address] Otolaryngology 04/03/23 documented as of this encounter
--- OUTSIDE RECORDS SUMMARY | 2024-02-08 01:07 | XMS_ITS | Encounter Summary ---
Author Organization [facility] Address [address] [place] [address] Care Team Providers Care Dish Maker Name Role Phone Vicky Chamberlain Unavailable [phone] Dane Rick MD Primary Care Provider [phone] Leticia Lieberman Unavailable Mendoza Guzmán MD Unavailable [phone] Encounter Details Date Type Department Care Team (Latest Contact Info) Description 10/10/[address] [facility] [address] [place] [address] Social History Tobacco Use Types Packs/Day [...] medical appointments or from getting medications? No 12/1 07/2022 In the past 12 months, has l [...] place to sleep or slept in a half-way (including now)? No 03/15/2023 Interpersonal Safety Answer [...] as of this encounter Progress Notes * Dulce Maria Mcclendon, PT - 10/10/2023 0652 EDT Outpatient Rehab Plan of Care ASSESSMENT Therapy Diagnosis: L LE pain and weakness Problem List: Decreased sensation, Decreased strength, Difficulty bending, Difficulty lifting, Difficulty with prolonged sitting, Difficulty with prolonged standing, Edema, Impaired ambulation, Impaired balance, Impaired stair/curb negotiation, Need for an independent home exercise program, and Pain Assessment: Patient presents to outpatient physical therapy with PT diagnosis of impaired gait secondary to LE weakness and L LE pain. The patient???s primary impairments include impaired sensation and decreased strength which contribute to functional limitations including impaired mobility, transfers, ambulation, stair negotiation, and fall risk. Currently the patient is functioning below their baseline level of function evidenced by high 5x STS score indicating decreased LE functional strength and fall risk. Additionally, her Foot and Ankle Ability Measure indicates decreased physical functional ability due to her L LE pain. Patient will benefit from skilled physical therapy to address the aforementioned impairments and maximize independence and safety with all mobility. Equipment Needed: AFO to support ankle weakness if no return takes place Barriers to Learning: none Potential Barriers to Progress: None Response to Evaluation: Well Rehabilitation Potential: Motivation/Commitment to Therapy: Good Rehabilitation Potential: Good Short-Term Goals Timeframe: 11/06/2023 (4weeks) Patient will demonstrate independent understanding of their HEP using a written handout in order tosafely and correctly complete recommended exercises in their home. Patient will complete FGA in order to gather baseline data and guide interventions to reduce fall risk. Long-Term Goals Timeframe: 12/04/2023 (8 weeks) Patient will improve their score on the subjective Foot and Ankle Ability Measure by 8 percent meeting the MCID of 8% on the ADL subscale indicating improved participation in home and community activities with decreased difficulty. Patient will demonstrate improved lower extremity strength as evidenced by completion of the 5x sitto stand assessment in less than 12 seconds indicating decreased fall risk in community dwelling elderly and indicates improved ease and safety of transfers. Patient will complete the Function Gait Assessment with a score of 22/30 demonstrating an improved ability to participate safely in home and community based ADLs and meeting the cut off score of 22/30 for community dwelling older adults that indicates a decreased risk of falls. PLAN Medical Necessity: Therapy intervention is indicated in order to return to a premorbid level of function or significantly improve current level of function. Physical Therapy is recommended for: Treatment Frequency/ Duration: 1x/week for 8 weeks Therapy Treatment to include: 62500 - Therapeutic Exercise, 09781 - Neuromuscular Re-education, 72325 - Gait Training, 73487 - Manual Therapy, 30566 - Therapeutic Activity, 40696 - Self Care/Home Management, and 84852 - Orthotic Management and Train Recommended Consults: TBD Development of Plan of Care: Patient participated in development of plan of care today. ATTENDING PHYSICIAN: Medicare certification needed. Your signature indicates you approve the therapy goals and plan of care outlined on this document dated 10/09/2023. Thank you! Attending Physician Signature Date documented in this encounter Plan of Treatment Upcoming Encounters Date Type Department Care Team (Late st Contact Info) Description 05/19/2024 11:00 EST Office Visit [facility] Family Medicine [address], [address] [address] Dane Rick MD [address] [place] [phone] documented as of this encounter Visit Diagnoses Not on filedocumented in this encounter Care Teams Dish Maker Relationship Specialty Start Date End Date Dane Rick MD [address] [place] [phone] PCP - General Family Medicine - Primary Care 08/09/22 Vicky Chamberlain [employer] Glass Frame Fitter 06/12/22 01/22/24 Leticia Lieberman [address] [place] [phone] General Surgery 04/03/23 Mendoza Guzmán MD [address] [place] [address] [address] [place] [address] Otolaryngology 04/03/23 documented as of this encounter
--- OUTSIDE RECORDS SUMMARY | 2024-02-08 01:07 | XMS_ITS | Encounter Summary ---
Author Organization [facility] Address [address] [place] [address] Care Team Providers Care Molder Inflated Ball Name Role Phone Vicky Chamberlain Unavailable [phone] Dane Rick MD Primary Care Provider [phone] Leticia Lieberman Unavailable Mendoza Guzmán MD Unavailable [phone] Reason for Visit * Reason Comments Medication Management Encounter Details Date Type Department Care Team (Late st Contact Info) Description 10/05/2023 16:00 EDT Office Visit [facility] Family Medicine [facility] [address] [facility], [facility] 2 [place] [address] Dane Rick MD 246 [facility] [address] [place] [address] Elevated LFTs (Primary Dx) Social History Tobacco Use Types [...] place to sleep or slept in a senior living (including now)? No 03/15/2023 Interpersonal Safety Answer [...] Sign Reading Time Taken Comments Blood Pressure 155/65 10/05/2023 1556 EDT Pulse 62 10/05/2023 1556 EDT Temperature 36.7 ??C (98.1 ??F) 10/05/2023 1556 EDT Respiratory Rate 18 10/05/2023 1556 EDT Oxygen Saturation 96% 10/05/2023 1556 EDT Inhaled Oxygen Concentration - - Weight - - Height 149.9 cm (4' 11) 10/05/2023 1556 EDT Body Mass Index - - documented in [...] as of this encounter Progress Notes * Joyce Lord LPN - 10/05/2023 1600 EDT Pt reports that she has been holding Letrozole and [place] T[place] supplement since last Sunday (09/25/2023) per oncologist's request * Dane Rick MD - 10/05/2023 1600 EDT Patient Name: Kenyatta Vizcaino Age: 82 y.o. Date: 10/05/23 Assessment & Plan Breast Cancer: On Letrozole, recently held due to concerns of elevated liver enzymes and lethargy. -cannot recommend turkey tail supplement -FU with Oncologist regarding reinitiation of Letrozole -Order liver function tests Gastroesophageal Reflux Disease (GERD): Reports of significant phlegm production and choking sensation, possibly related to acid reflux. History of hiatal hernia and erosions on endoscopy. -Recommend use of antacids (Tums) as needed, particularly before heavy meals. Bruising: Noted multiple bruises, possibly related to daily aspirin use for stroke prevention. -Recommend reducing aspirin use to every other day to potentially decrease bruising. Follow-up appointment scheduled for November 29, 2023. Other Orders Placed This Visit Procedures Hepatic Function Panel (Alb,Alk Phos,ALT,AST,DBIL,Tot ESHA,Tot PROT) For any new medications prescribed today, patient was educated about indications for the medication, how to take the medication and potential side effects of the medications. SUBJECTIVE Kenyatta Vizcaino is a 82 y.o. female here for: Chief Complaint Patient presents with Medication Management History of Present Illness The patient, with a history of cancer, stroke, and hiatal hernia, presents with multiple concerns. She expresses frustration with her oncology team. She recently stopped Letrozole and [place] dueto side effects and elevated liver enzymes. She reports feeling more alert and awake since stoppingthese medications. She also describes a recent choking episode lasting approximately 45 minutes, characterized by excessive phlegm production. She denies any burning sensation or acid reflux during the episode. She notes that she had eaten more than usual prior to the episode. Additionally, the patient reports bruising, which she attributes to daily aspirin use for stroke prevention. She was unaware that her aspirin regimen was supposed to be every other day. Review of Systems ALLERGIES/INTOLERANCES Allergies Allergen Reactions Amoxicillin-Pot Clavulanate Rash Atorvastatin Muscle Aches Flagyl [Metronidazole] Metoprolol Other (See Comments) heart failure? Penicillins Zithromax [Azithromycin] OBJECTIVE Vitals: 10/05/23 1556 BP: (!) 155/65 BP Cuff Location: Left arm BP Patient Position: Sitting BP Cuff Sizes: Adult, regular Pulse: 62 Resp: 18 Temp: 36.7 ??C (98.1 ??F) TempSrc: Oral SpO2: 96% Height: (!) 149.9 cm (59) General appearance - alert, well appearing Respiratory- [...] to allow its use for this encounter. Dane Rick MD documented in this encounter Plan of Treatment Upcoming Encounters Date Type Department Care Team (Late st Contact Info) Description 05/19/2024 11:00 EST Office Visit [facility] Family Medicine [address], [facility] 2 [place] [address] Dane Rick MD 246 [facility] 2 [place] [address] Scheduled Orders Name Type Priority Associated Diagnoses Orde r Schedule HEPATIC FUNCTION PANEL (ALB,ALK PHOS,ALT,AST,DBIL,TOT ESHA,TOT PROT) Lab Routine Elevated LFTs Ordered: 10/05/2023 documented as of this encounter Visit Diagnoses Diagnosis Elevated LFTs- Primary Other abnormal blood chemistry documented in this encounter Care Teams Molder Inflated Ball Relationship Specialty Start Date End Date Dane Rick MD [address] [place] [address] 2 [place] [address] PCP - General Family Medicine - Primary Care 08/09/22 Vicky Chamberlain [facility] Book Trimmer 06/12/22 01/22/24 Leticia Lieberman [address] [place] [phone] General Surgery 04/03/23 Mendoza Guzmán MD [address] [place] [address] [address] [place] [phone] Otolaryngology 04/03/23 documented as of this encounter
--- OUTSIDE RECORDS SUMMARY | 2024-02-08 01:07 | XMS_ITS | Encounter Summary ---
Author Organization [facility] Address [address] [place] [address] Care Team Providers Care Class C Truck Driver Name Role Phone Vicky Chamberlain Unavailable [phone] Dane Rick MD Primary Care Provider [phone] Leticia Lieberman Unavailable Mendoza Guzmán MD Unavailable [phone] Reason for Visit * Reason Onset Date Comments No Show 01/09/2024 Letter 01/09/2024 Encounter Details Date Type Department Care Team (Late st Contact Info) Description 01/09/2024 Telephone [facility] Family Medicine [address], [facility] 2 [place] [address] Dane Rick MD 246 [facility] [place] [address] [place] [address] No Show; Letter Social History Tobacco Use Types Packs/Day Years [...] encounter Miscellaneous Notes * Telephone Encounter - Marta Oh - 01/09/2024 1512 EDT Patient no showed apt with WC on 01/06 for TCM. Mailed no show letter to call for reschedule. Patient is coming in on 01/28 to see JI. documented in this encounter Plan of Treatment Upcoming Encounters Date Type Department Care Team (Late st Contact Info) Description 05/19/2024 11:00 EST Office Visit [facility] Family Medicine [address], [facility] 2 [place] [address] Dane Rick MD [address] [place] [address] 2 [place] [phone] documented as of this encounter Visit Diagnoses Not on filedocumented in this encounter Care Teams Class C Truck Driver Relationship Specialty Start Date End Date Dane Rick MD [address] [place] [address] 2 [place] [address] PCP - General Family Medicine - Primary Care 08/09/22 Vicky Chamberlain [facility] Staff Respiratory Therapist 06/12/22 01/22/24 Leticia Lieberman [address] [place] [phone] General Surgery 04/03/23 Mendoza Guzmán MD [address] [place] [address] [address] [place] [address] Otolaryngology 04/03/23 documented as of this encounter
--- OUTSIDE RECORDS SUMMARY | 2024-02-08 01:07 | XMS_ITS | Encounter Summary ---
Author Organization [facility] Address [address] [place] [address] Care Team Providers Care Dry Curer Name Role Phone Vicky Chamberlain Unavailable [phone] Dane Rick MD Primary Care Provider [phone] Leticia Lieberman Unavailable Mendoza Guzmán MD Unavailable [phone] Encounter Details Date Type Department Care Team (Late st Contact Info) Description 01/01/2024 Patient Outreach [facility] Family Medicine - [facility] [address] [place] [address] Vicky Chamberlain LICSW [address] [address] Social History Tobacco Use Types [...] place to sleep or slept in a longterm (including now)? No 03/15/2023 Interpersonal Safety Answer [...] this encounter Progress Notes * Vicky Chamberlain, ADMIN DIR - 01/01/2024 1248 EDT [facility] Statement Processor Care Coordination Care management phone consult as scheduled, pt did not answer phone. delicatessen store manager called and left voicemail requesting call back to reschedule. Next Statement ProcessorCottage Supervisor: 01/15/2024 documented in this encounter Plan of Treatment Upcoming Encounters Date Type Department Care Team (Late st Contact Info) Description 05/19/2024 11:00 EST Office Visit [facility] Family Medicine [address], [facility] 2 [place] [address] Dane Rick MD [address] [place] [address] 2 [place] [phone] documented as of this encounter Visit Diagnoses Not on filedocumented in this encounter Care Teams Dry Curer Relationship Specialty Start Date End Date Dane Rick MD [address] [place] [address] 2 [place] [address] PCP - General Family Medicine - Primary Care 08/09/22 Vicky Chamberlain LICSW Statement Processor 06/12/22 01/22/24 Leticia Lieberman [address] [place] [phone] General Surgery 04/03/23 Mendoza Guzmán MD [address] [place] [address] [address] [place] [phone] Otolaryngology 04/03/23 documented as of this encounter
--- OUTSIDE RECORDS SUMMARY | 2024-02-08 01:07 | XMS_ITS | Encounter Summary ---
Author Organization [facility] Address [address] [place] [address] Care Team Providers Care Tool Room Lathe Operator Name Role Phone Vicky Chamberlain Unavailable [phone] Dane Rick MD Primary Care Provider [phone] Leticia Lieberman Unavailable Mendoza Guzmán MD Unavailable [phone] Encounter Details Date Type Department Care Team (Late st Contact Info) Description 12/13/2023 Patient Outreach [facility] Family Medicine - [facility] [address] [place] [address] Vicky Chamberlain LICSW [address] [address] Social History Tobacco Use Types [...] place to sleep or slept in a care home (including now)? No 03/15/2023 Interpersonal Safety Answer [...] Progress Notes * Vicky Chamberlain, LATRICE - 12/13/2023 4589 EDT [facility] Stripper Color Care Coordination Care management phone consult as scheduled, pt did not answer phone. health plan manager called and left voicemail requesting call back to reschedule. Next Stripper ColorDry Pan Charger: 12/27/2023 documented in this encounter Plan of Treatment Upcoming Encounters Date Type Department Care Team (Late st Contact Info) Description 05/19/2024 11:00 EST Office Visit [facility] Family Medicine [address], [facility] 2 [place] [address] Dane Rick MD [address] [place] [address] 2 [place] [address] documented as of this encounter Visit Diagnoses Not on filedocumented in this encounter Care Teams Tool Room Lathe Operator Relationship Specialty Start Date End Date Dane Rick MD [address] [place] [address] 2 [place] [address] PCP - General Family Medicine - Primary Care 08/09/22 Vicky Chamberlain LICSW Stripper Color 06/12/22 01/22/24 Leticia Lieberman [address] [place] [phone] General Surgery 04/03/23 Mendoza Guzmán MD [address] [place] [address] [address] [place] [phone] Otolaryngology 04/03/23 documented as of this encounter
--- OUTSIDE RECORDS SUMMARY | 2024-02-08 01:07 | XMS_ITS | Encounter Summary ---
Author Organization [facility] Address [address] [place] [address] Care Team Providers Care Regional Sales Associate Name Role Phone Vicky Chamberlain Unavailable [phone] Dane Rick MD Primary Care Provider [phone] Leticia Lieberman Unavailable Mendoza Guzmán MD Unavailable [phone] Encounter Details Date Type Department Care Team (Late st Contact Info) Description 11/15/2023 Patient Outreach [facility] Family Medicine - [facility] [address] [place] [address] Vicky Chamberlain LICSW [address] [address] Social History Tobacco Use Types [...] place to sleep or slept in a intermediate (including now)? No 03/15/2023 Interpersonal Safety Answer [...] Progress Notes * Vicky Chamberlain, LATRICE - 11/15/2023 1022 EDT [facility] Management Care Coordination Note Medical Staff Physician spoke with Kenyatta on 11/14/23 in order to coordinate care. Outgoing call to Kenyatta to discuss recent housing concerns. Kenyatta states that she has been having trouble with her upstairs neighbor They are loud, and have had multiple visitors at a time I counted 41 shoes They have asked me not to speak with them Kenyatta states that she attempted to discuss her concerns with her landlord who explained that if she would like to move out she could. Kenyatta is considering other housing options, her grandchildren have some room for a temporary option. Kenyatta states that her daughter Adriana is very busy and is unable di discuss these things with her. Cm asked if I could reach out to family to discuss the concerns, Kenyatta felt that she would be able to organize this. Kenyatta did offer permission for this CM to reach out to her [employer] worker, who is now Kj Marino - CM sent email to request advice on housing transition options. Kenyatta does have a Section 8 Choice voucher. This CM has had previous discussions with Kenyatta about alternative housing options in the past. Kenyatta owns a house in the [place] area, she has been attempting to sell this property for some time. With this property and her cognitive and physical independence, she would not qualify for LTC Medicaid PLAN: CM will continue to follow, offer guidance/support as requested by patient Next Medical Staff PhysicianResearch Pharmacist: 12/12/2023 LATRICE ENCISO 11/15/2023 10:22 documented in this encounter Plan of Treatment Upcoming Encounters Date Type Department Care Team (Late st Contact Info) Description 05/19/2024 11:00 EST Office Visit [facility] Family Medicine [facility] [address] [facility], [place] [address] [place], [place] [address] Dane Rick MD 246 [facility] [address] [place] [address] documented as of this encounter Visit Diagnoses Not on filedocumented in this encounter Care Teams Regional Sales Associate Relationship Specialty Start Date End Date Dane Rick MD 246 [facility] 2 [place] [phone] PCP - General Family Medicine - Primary Care 08/09/22 Vicky Chamberlain [facility] Medical Staff Physician 06/12/22 01/22/24 Leticia Lieberman [address] [place] [phone] General Surgery 04/03/23 Mendoza Guzmán MD [address] [place] [address] [address] [place] [address] Otolaryngology 04/03/23 documented as of this encounter
--- OUTSIDE RECORDS SUMMARY | 2024-02-08 01:07 | XMS_ITS | Encounter Summary ---
Author Organization [facility] Address [address] [place] [address] Care Team Providers Care Family Practitioner Name Role Phone Vicky Chamberlain Unavailable [phone] Dane Rick MD Primary Care Provider [phone] Leticia Lieberman Unavailable Mendoza Guzmán MD Unavailable [phone] Encounter Details Date Type Department Care Team (Late st Contact Info) Description 01/11/2024 Patient Outreach [facility] Family Medicine - [facility] [address] [place] [address] Vicky Chamberlain LICSW [address] [address] Social History Tobacco Use Types [...] this encounter Progress Notes * Vicky Chamberlain, SUPERVISOR TUBING - 01/11/2024 1436 EDT [facility] Electrical Appliance Repairer Care Coordination Care management phone consult as scheduled, pt did not answer phone. manager community outreach called and left voicemail requesting call back. CM explained that my last day will be 01/24 and that Thelma Murphy will be taking over her care. Willalso send a snail mail letter explaining the same. If patient does not return call or attend upcoming PCP appointment closure/loss to communication. PCP is welcome to make additional referral if patient is closed. documented in this encounter Plan of Treatment Upcoming Encounters Date Type Department Care Team (Late st Contact Info) Description 05/19/2024 11:00 EST Office Visit [facility] Family Medicine [address], [facility] 2 [place] [address] Dane Rick MD [address] [place] [address] 2 [place] [phone] documented as of this encounter Visit Diagnoses Not on filedocumented in this encounter Care Teams Family Practitioner Relationship Specialty Start Date End Date Dane Rick MD [address] [place] [address] 2 [place] [phone] PCP - General Family Medicine - Primary Care 08/09/22 Vicky Chamberlain LICSW Electrical Appliance Repairer 06/12/22 01/22/24 Leticia Lieberman [address] [place] [place] [phone] General Surgery 04/03/23 Mendoza Guzmán MD [address] [place] [address] [address] [place] [phone] Otolaryngology 04/03/23 documented as of this encounter
--- OUTSIDE RECORDS SUMMARY | 2024-02-08 01:07 | XMS_ITS | Encounter Summary ---
Author Organization [facility] Address [address] [place] [address] Care Team Providers Care Food And Beverage Coordinator Name Role Phone Vicky Chamberlain Unavailable [phone] Dane Rick MD Primary Care Provider [phone] Leticia Lieberman Unavailable Mendoza Guzmán MD Unavailable [phone] Encounter Details Date Type Department Care Team (Latest Contact Info) Description 11/09/2023 Travel Social History Tobacco Use Types Packs/Day [...] place to sleep or slept in a halfway (including now)? No 03/15/2023 Interpersonal Safety Answer [...] No 03/21/2021 documented as of this encounter Plan of Treatment Upcoming Encounters Date Type Department Care Team (Late st Contact Info) Description 05/19/2024 11:00 EST Office Visit [facility] Family Medicine [address], [place] [address] [place] [address] Dane Rick MD 246 [facility] [address] [place] [phone] documented as of this encounter Visit Diagnoses Not on filedocumented in this encounter Care Teams Food And Beverage Coordinator Relationship Specialty Start Date End Date Dane Rick MD [address] [place] [address] 2 [place] [phone] PCP - General Family Medicine - Primary Care [facility]09[facility] Cashier Receptionist 06/12/22 01/22/24 Leticia Lieberman [address] [place] [phone] General Surgery 04/03/23 Mendoza Guzmná MD [address] [place] [address] [address] [place] [phone] Otolaryngology 04/03/23 documented as of this encounter
--- OUTSIDE RECORDS SUMMARY | 2024-02-08 01:07 | XMS_ITS | Encounter Summary ---
Author Organization [facility] Address [address] [place] [address] Care Team Providers Care Infertility Medical Assistant Name Role Phone Vicky Chamberlain Unavailable [phone] Dane Rikc MD Primary Care Provider [phone] Leticia Lieberman Unavailable Mendoza Guzmán MD Unavailable [phone] Encounter Details Date Type Department Care Team (Late st Contact Info) Description 07/04/2023 Patient Outreach [facility] Family Medicine - [facility] [address] [place] [address] Vicky Chamberlain LICSW [address] [address] Social History Tobacco Use Types [...] place to sleep or slept in a [place] facility (including now)? No 03/15/2023 Interpersonal Safety Answer [...] you have serious difficulty h earing? No 01/18/2023 Are you blind or do you have [...] this encounter Progress Notes * Vicky Chamberlain, MARINE ELECTRICIAN HELPER - 07/04/2023 8551 EDT [facility] Justice Court Judge Care Coordination Justice Court Judge spoke with Kenyatta on 07/04/23 in order to coordinate care. Kenyatta states that she did not have a ride to PCP appointment on 07/01, states struggling to keep track of multiple moving medical appointments. - Discussed that she should reach out to [facility] to assist with coordination of appointments and rides. - Should either need assistance with this coordination they can reach out to [facility] for support. PLAN: Next Justice Court JudgeProduction Worker: 08/01/2023 LATRICE ENCISO 07/04/2023 14:57 documented in this encounter Plan of Treatment Upcoming Encounters Date Type Department Care Team (Late st Contact Info) Description 05/19/2024 11:00 EST Office Visit [facility] Family Medicine [address], [facility] 2 [place] [address] Dane Rick MD [address] [place] [address] 2 [place] [phone] documented as of this encounter Visit Diagnoses Not on filedocumented in this encounter Care Teams Infertility Medical Assistant Relationship Specialty Start Date End Date Dane Rick MD [address] [place] [address] 2 [place] [phone] PCP - General Family Medicine - Primary Care 08/09/[address] Chamberlain LICSW [address] Judge 06/12/22 01/22/24 Leticia Lieberman [address] [place] [phone] General Surgery 04/03/23 Mendoza Guzmán MD [address] [place] [address] [address] [place] [phone] Otolaryngology 04/03/23 documented as of this encounter
--- OUTSIDE RECORDS SUMMARY | 2024-02-08 01:07 | XMS_ITS | Encounter Summary ---
Author Organization [facility] Address [address] [place] [address] Care Team Providers Care Power Lineworker Name Role Phone Vicky Chamberlain Unavailable [phone] Dane Rick MD Primary Care Provider [phone] Leticia Lieberman Unavailable Mendoza Guzmán MD Unavailable [phone] Reason for Visit * Reason Onset Date Comments Hypertension 11/09/2023 Encounter Details Date Type Department Care Team (Late st Contact Info) Description 11/09/2023 Telephone [facility] [place] [address], [facility] [address] [place] [address] Dane Rick MD [address] [facility] [address] [place] [address] Hypertension Social History Tobacco Use Types Packs/Day Years [...] encounter Miscellaneous Notes * Telephone Encounter - Lauren Wilde RN - 11/09/2023 1427 EDT [facility] [place] SB[facility] Nurse Triage call note: Situation: HTN Background: 10/04 daily ASA was reduced to every other day. Pt has stopped radiation for ca 08/2023 Assessment: very, very tired, tension headache, dizzy, no unilateral weakness. (See BP readings in PSS msg below) Recommendation: ED. Daughter will drive her. * Telephone Encounter - Arvind Mcdonald - 11/09/2023 1413 EDT Patient called and states that her blood pressure is high. She feels like her forehead is going to scrunch together when it is high. She feels out of it. Tries to relax and then it goes away. 193/109- 7:50 am 161/86 174/88 160/87 179/87 174/87 194/89- noon 155/82- 1 pm 177/87- 2 pm documented in this encounter Plan of Treatment Upcoming Encounters Date Type Department Care Team (Late st Contact Info) Description 05/19/2024 11:00 EST Office Visit [facility] Family Medicine [address], [facility] [address] [place] [address] Dane Rick MD [address] [place] [address] [address] [place] [phone] documented as of this encounter Visit Diagnoses Not on filedocumented in this encounter Care Teams Power Lineworker Relationship Specialty Start Date End Date Dane Rick MD [address] [place] [address] [address] [place] [address] PCP - General Family Medicine - Primary Care 08/09/22 Vicky Chamberlain LICSW Panel Machine Operator 06/12/22 01/22/24 Leticia Lieberman [address] [place] [phone] General Surgery 04/03/23 Mendoza Guzmán MD [address] [place] [phone] Otolaryngology 04/03/23 documented as of this encounter
--- OUTSIDE RECORDS SUMMARY | 2024-02-08 01:07 | XMS_ITS | Encounter Summary ---
Author Organization [facility] Address [address] [place] [address] Care Team Providers Care Grocery Clerk Stocking Name Role Phone Vicky Chamberlain Unavailable [phone] Dane Rick MD Primary Care Provider [phone] Leticia Lieberman Unavailable Mendoza Guzmán MD Unavailable [phone] Reason for Visit * Reason Comments Abdominal Pain Pt arrives d/t left lower abd / pelvic pain that began approx 1 week ago. Pt daughter reports she has been acting confused, not herself, c/o for UTI. Pt states her urine was dark, copper colored this morning Encounter Details Date Type Department Care Team ([facility] Contact Info) Description 12/30/2023 9:44 EDT - 12/30/2023 13:19 EDT Emergency [facility] Emergency Department [address] [place] [address] Elsy Syed MD [address] [facility], [address] [place] [address] Other fatigue (Primary Dx) Discharge Disposition: Home or Self Care Social History Tobacco Use Types Packs/Day Years [...] you? Never 03/15/2023 How often does anyone, inclu brenda family, insult, scream, curse or threaten to hurt you? Never 03/15/2023 Sex and Gender Information Value Date Recorded Sex Assigned at Not on file Gender Identity Female 02/28/2019 7:38 EST Sexual Orientation Not on file documented as of this encounter Last Filed Vital Signs Vital Sign Reading Time Taken Comments Blood Pressure 210/75 12/30/2023 1201 EDT Pulse 64 12/30/2023 0952 EDT Temperature 37.1 ??C (98.8 ??F) 12/30/2023 0952 EDT Respiratory Rate 16 12/30/2023 1201 EDT Oxygen Saturation 98% 12/30/2023 1249 EDT Inhaled Oxygen Concentration - - Weight 65 kg (143 lb 4.8 oz) 12/30/2023 0952 EDT Height 149.9 cm (4' 11) 12/30/2023 0952 EDT Body Mass Index 28.94 12/30/2023 0952 EDT documented in this encounter [...] No 03/21/2021 documented as of this encounter Discharge Instructions * Discharge Instructions* Elsy Syed MD - 12/30/2023 13:06 EDT You presented to the emergency department with months of fatigue, also concern for urinary tract infection. You had a reassuring physical exam however, and your labs were also very reassuring withoutany concerning acute abnormalities. You have expressed concern about your difficulties following upwith your outpatient providers. Your doctor in the emergency department sent a message to your primary care doctor Dr. Rick to request follow-up. You should call [facility] to request follow-up withyour oncology team as well. * Attachments The following attachments cannot be sent through Care Everywhere. * Fatigue (Slovak) documented in this encounter Medications at Time of Discharge Medication Sig Dispensed Refills Start Date End Date aspirin 81 mg EC tablet Take 1 Tablet by mouth every 48 hours. 09/19/2022 furosemide (LASIX) 20 mg tablet Take 1 Tablet by mouth daily. 90 Tablet 04/03/2023 letrozole (FEMARA) 2.5 mg tablet Take 1 Tablet by mouth daily. 05/29/2023 LORazepam (ATIVAN) 0.5 mg tablet Take 2 Tablets by mouth 2 times daily. losartan (COZAAR) 100 mg tablet TAKE 1 TABLET BY MOUTH EVERY DAY 90 Tablet 3 08/14/2023 ergocalciferol, vitamin D2, (VITAMIN D ORAL) Take 1 Tablet by mouth daily at 1200. 01/22/2024 hydrOXYzine (ATARAX) 25 mg tablet Take 1 Tablet by mouth 3 times daily as needed for Itching. 60 Tablet 09/19/2022 01/29/2024 MAGNESIUM GLUCONATE ORAL Take 1 Tablet by mouth daily at 1200. 01/29/2024 mirtazapine (REMERON) 7.5 mg tabletIndications:Situa tional mixed anxiety and depressive disorder Take 0.5 Tablets by mouth at bedtime. 30 Tablet 1 11/12/2023 01/29/2024 documented as of this encounter Discharge Disposition Disposition Code Departure Means Destination Comment s Home or Self Nursing Home documented in this encounter ED Notes * Mega Selby - 12/30/2023 1130 EDT 12 Lead EKG Performed by Mega Selby and shown to MARGARITA MARCIAL * Elsy Syed MD - 12/30/2023 0930 EDT Emergency Department Visit Medical Decision Making EKG (independent interpretation): Sinus bradycardia rate 48 DE interval 180 QRS 76, QTc 384. Medical Decision Making Amount and/or Complexity of Data Reviewed Labs: ordered. To summarize is a 89-year-old woman who presents with generalized fatigue for months, she states fatigue has been more notable in the last week. Patient was also concerned that when she received radiation therapy for breast cancer in July of this year that she inadvertently radiation to her liver and is concerned about liver damage; was seen here in July several days after her last bout of radiation, and CT abdomen pelvis at that time which was clinically unremarkable. Labs are reassuring. She has borderline elevated bilirubin which is stable from prior, stable to improved from prior. T bilirubin, stable from prior, mild elevation in alk phos to 138; was 113 and October, 166 in July without abdominal pain, jaundice, or other symptoms suggestive of hepatobiliary disease. During her stay in the emergency department, patient also inquires about chronic gait instability. She had a normal neurologic exam. Consider the fatigue may be related to bradycardia although this appeared to be a transient finding and patient has had bradycardia in the past that did not correlatewell with exacerbation of symptoms. I advised her that she would likely benefit from ambulating with a cane; she states she has been told this previously, has a cane but does not want to use it due to concerns about slowing her down and concerns about tripping over the cane. She lives alone but is able to take care of ADLs. She denied any acute neurologic symptoms today. Patient also expressed concern that she has areas that are pruritic on her scalp, requested that I examine her scalp for possible cancer. In general patient did appear preoccupied with the possibility that she is recurrent or new cancer. That said, by history and exam she did not have evidence of cancer. Patient was advised that so important that she follow-up with her primary care provider and oncologist regarding these concerns. I did also discuss with her the possibility that general fatiguesymptoms in the absence of explanatory workup otherwise, and in consideration for past medical history as well as recent stressors including loss of her , treatment for cancer, it is possible that symptoms may be in part caused by or exacerbated by underlying stress and possibly depression. She was advised to discuss this further with her primary care provider too. Review of her chart shows social worker psychiatric note from 11/15/2023 which details psychosocial stressors including frustrations with housing. In general, it appears that patient's symptoms are chronic extending back months. The patient was preoccupied by the possibility that symptoms may be due to prior therapy for cancer. She was also concern for cancer recurrence. Advised the patient that given the chronicity of symptoms without clear cause, we are unlikely to be able to discern the cause of her chronic fatigue today though ultimately patient was amenable to screening workup as her daughter was concerned about the possibility of UTI. Workup was nonfocal. See above for additional details regarding treatment course. Patient appeared reassured by negative workup, agrees to follow-up. I did also send a message to her primary care provider Dr. Rick requesting follow-up. Final diagnoses: None Disposition: Discharged Chief complaint: Fatigue HPI Kenyatta Lopez is a 83 y.o. female with a prior history of breast cancer status postradiation, chronic general fatigue and weakness, who presents today with a chief concern of ongoing weakness.Patient details that she is been generally weak for many months. Patient details a history in whichshe states she received radiation therapy erroneously to her liver in the setting of her breast cancer and is concerned that this may have caused iatrogenic injury in the past. She wonders if this may be the cause for her fatigue, and is also concerned that this episode may have induced new neoplasm. Her daughter presents with her today is concerned about the possibility of UTI. The patient denies urinary symptoms. She denies fever or chills. She denies focal muscle weakness, speech changes or vision changes. Per triage note, patient has been experiencing lower abdominal pain for the last week. The patient denies tripp abdominal pain to me today as the reason for presentation but rather herongoing fatigue though she does note that urine appeared darker today. She notes that she thought she was supposed to have mammography but has been unable to get this scheduled by her primary care office. She expresses frustration at her perception that she has not been able to see her primary careprovider. She denies chest pain or dyspnea. She denies orthopnea. No lower extremity edema. She denies bleeding history. She denies changes to p.o. intake. She reports that she is able to take care of her ADLs. Patient does also have a history of anxiety for which she takes lorazepam, but states she uses this rarely and does not feel this is contributory to fatigue. History was provided by: Patient, daughter Records reviewed include: Notes available in chart such as progress notes from 11/12/2023. Patient's pertinent PMH, FH, SH were reviewed and edited as necessary. Nursing notes reviewed. A medical screening exam was performed. Physical Exam BP (!) 192/78 Pulse 64 Temp 37.1 ??C (98.8 ??F) (Oral) Resp 18 Ht (!) 149.9 cm (59) Wt 65 kg (143 lb 4.8 oz) SpO2 99% BMI 28.94 kg/m?? Physical Exam GENERAL: Awake, Alert, Nontoxic HEAD: Normocephalic, atraumatic EENT: PERRLA, no scleral icterus. Conjunctiva not injected. Nares clear, oropharynx clear without erythema nor exudate. No thyromegaly CARDS: Normal RR no murmurs rubs or gallubs. Radial, DP and PT pulses 2+ bilaterally. LUNGS: CTAB with normal respiratory rate and effort ABD: Nondistended, non-tender, no rebound. No palpable masses. No flank nor abdominal wall bruising. No CVA tenderness. MUSC: normal tone and bulk. NEURO: A&O x4. Full strength and sensation in all 4 extremities. Psych: well oriented, and appropriate Procedures Procedures documented in this encounter Plan of Treatment Upcoming Encounters Date Type Department Care Team (Late st Contact Info) Description 05/19/2024 11:00 EST Office Visit [facility] Family Medicine [facility] [address] [facility] [place] [address] [place] [address] Dane Rick MD [address] [place] [address] [address] [place] [phone] documented as of this encounter Procedures Procedure Name Priority Date/Time Associated Diagnosis Comments ECG REPORT - SCANNED 12/30/2023 20:16 EDT TROPONIN I Routine 12/30/2023 11:41 EDT EKG 12-LEAD STAT 12/30/2023 11:30 EDT UA WITH REFLEX SEDIMENT (CULTURE IF POS) STAT 12/30/2023 10:33 EDT UA SEDIMENT + REFLEX TO CULTURE STAT 12/30/2023 10:33 EDT LACTIC ACID Routine 12/30/2023 10:33 EDT COMPLETE BLOOD COUNT AND DIFFERENTIAL STAT 12/30/2023 10:33 EDT C REACTIVE PROTEIN Routine 12/30/2023 10 :33 EDT NT PRO BNP Add-On 12/30/2023 10:33 EDT COMPREHENSIVE METABOLIC PANEL (CMP) STAT 12/30/2023 10:33 EDT documented in this encounter Results * ECG REPORT - SCANNED (12/30/2023 20:16 EDT) 12/30/2023 20:1 6 EDT Scan 2 Manufacturing Area Manager PROCEDURE/MINOR PRINCESS GICAL ORDERABLES * TROPONIN I (12/30/2023 11:41 EDT) Troponin I (ng/mL) <0.034 <0.034 ng/mL 12/30/2023 12:15 EDT [facility] Blood VENOUS BLOOD / Unknown Venipuncture / Unknown 12/30/2023 11:41 EDT 12/30/2023 11:42 EDT Narrative [facility] - 12/30/2023 12:15 EDT The results of this assay can be falsely lowered due to the consumption of Biotin. Elsy Syed MD CHEMISTRY & BLOOD G ORDERABLES Performing Organization Address [facility]/State/ZIP Co de Phone Number [facility] [address] [place] [address] * EKG 12-LEAD (12/30/2023 11:30 EDT) 12/30/2023 11:3 0 EDT Narrative [facility] - 12/30/2023 20:05 EDT ? [facility] ? Test Date: ?2023-12-30 Pat Name: ? KENYATTA LOPEZ ? Department: ? Room: ? C07 Gender: ? Female ? Foam Caster: ?? [facility] : ?1940 ? Requested By: MARGARITA YAPTER Order Number: [id number] ? Corinna MD: ?? LAVELLE BRYANT MD ? Measurements Intervals ?Lutz ? Rate: ? 48 ? P: ?78 DE: ? 180 ?QRS: ?-15 QRSD: ? 76 ? T: ?34 QT: ? 430 ? QTc: ?384 ? Interpretive Statements Sinus bradycardia Compared to ECG 11/09/2023 16:01:47 ST (T wave) deviation no longer present I reviewed the tracing and have either agreed or edited the findings in this report. Electronically Signed On 12-30-2023 20:05:12 EDT by LAVELLE BRYANT MD. Procedure Note Lavelle Bryant MD - 12/30/2023 [facility] Test Date: 2023-12-30 Pat Name: KENYATTA LOPEZ Department: Room: [facility] Gender: Female Foam Caster: [facility] : 1940 Requested By: MARGARITA CHIN Order Number: [id number] Reading MD: LAVELLE BRYANT MD Measurements Intervals Lutz Rate: 48 P: 78 DE: 180 QRS: -15 QRSD: 76 T: 34 QT: 430 QTc: 384 Interpretive Statements Sinus bradycardia Compared to ECG 11/09/2023 16:01:47 ST (T wave) deviation no longer present I reviewed the tracing and have either agreed or edited the findings inthis report. Electronically Signed On 12-30-2023 20:05:12 EDT by LAVELLE WU. Elsy Syed MD CARDIAC ECG ORDERAB LES [facility] * (ABNORMAL) NT PRO BNP (12/30/2023 10:33 EDT) NT-pro BNP 298(H) <296 pg/mL 12/30/2023 11:42 EDT [facility] Comment: In the acute setting NT-proBNP values <300 pg/mL have a 98% NPV for excluding acute heart failure. In outpatient populations, NT-proBNP values <125 have a 99% NPV for excluding heart failure. Blood VENOUS BLOOD / Unknown Venipuncture / Unknown 12/30/2023 10:33 EDT 12/30/2023 10:41 EDT Elsy Syed MD CHEMISTRY & BLOOD G ORDERABLES [facility] [address] [place] [address] * (ABNORMAL) UA SEDIMENT + REFLEX TO CULTURE (12/30/2023 10:33 EDT) Urine RBC Count, Manual 0 - 2 0 - 2 Cells/HPF 12/30/2023 10:48 EDT [facility] Urine WBC Count 0 - 3 0 - 3 Cells/HPF 12/30/2023 10:48 EDT [facility] Urine Squamous Count, Manual Few(A) None Seen Cells/HPF 12/30/2023 10:48 EDT [facility] Urine Hyaline Cast Count, Manual <=10 <=10 Casts/LPF 12/30/2023 10:48 EDT [facility] Urine Bacteria Count, Manual Few(A) None Seen Bacteria/H PF 12/30/2023 10:48 EDT [facility] Urine URINE SPECIMEN OBTAINED BY CLEAN CATCH PROCEDURE / Unknown Urine Collect / Unknown 12/30/2023 10:33 EDT 12/30/2023 10:40 EDT Narrative [facility] - 12/30/2023 10:48 EDT Urine Sediment Analysis results are unreliable on urines that are unrefrigerated for >2 hrs or refrigerated >8 hrs. NOTE: Reflex to Urine Culture test is not indicated based on Urine Sediment Analysis results. Elsy Syed MD URINALYSIS ORDERABL ES Performing Organization Address City/[facility]/ZIP Co de Phone Number [facility] [address] [place] [address] * C REACTIVE PROTEIN (12/30/2023 10:33 EDT) C-Reactive Protein <5.0 <10.0 mg/L 12/30/2023 11:14 EDT [facility] Blood VENOUS BLOOD / Unknown Venipuncture / Unknown 12/30/2023 10:33 EDT 12/30/2023 10:41 EDT Elsy Syed MD CHEMISTRY & BLOOD G ORDERABLES [facility] [address] [place] [address] * LACTIC ACID (12/30/2023 10:33 EDT) Lactic Acid 0.8 <=2.0 mmol/L 12/30/2023 11:01 [facility] Blood VENOUS BLOOD / Unknown Venipuncture / Unknown 12/30/2023 10:33 EDT 12/30/2023 10:41 EDT Elsy Syed MD CHEMISTRY & BLOOD G ORDERABLES [facility] [address] [place] [address] * (ABNORMAL) UA CASCADE TO CULTURE (12/30/2023 10:33 EDT) Color UA Yellow Colorless, Yellow 12/30/2023 10:43 [facility] Clarity UA Clear Clear 12/30/2023 10:43 [facility] Glucose UA Negative Negative mg/dL 12/30/2023 10:43 [facility] Bilirubin UA Negative Negative 12/30/2023 10:43 [facility] Ketones UA Negative Negative 12/30/2023 10:43 [facility] Specific [place], Urine 1.015 1.001 - 1.030 12/30/2023 10:43 [...] Unknown 12/30/2023 10:33 EDT 12/30/2023 10:40 EDT Elsy Syed MD URINALYSIS ORDERABL ES [facility] [address] [place] [address] * (ABNORMAL) COMPREHENSIVE METABOLIC PANEL (CMP) (12/30/2023 10:33 EDT) Sodium 136 136 - 145 mmol/L 12/30/2023 [...] Unknown 12/30/2023 10:33 EDT 12/30/2023 10:41 EDT Elsy Syed MD CHEMISTRY & BLOOD G ORDERABLES Performing Organization Address [facility]/State/ZIP Co de Phone Number [facility] [address] [place] [address] * (ABNORMAL) COMPLETE BLOOD COUNT AND DIFFERENTIAL (12/30/2023 10:33 EDT) WBC 7.81 4.00 - 12.40 K/cmm 12/30/2023 [...] SERVICES Type of Differential: Auto 12/30/2023 10:43 EDT [facility] Blood VENOUS BLOOD / Unknown Venipuncture / Unknown 12/30/2023 10:33 EDT 12/30/2023 10:41 EDT Elsy Syed MD PACKAGES & DNA PROB E ORDERABLES [facility] [address] [place], [place] [phone] documented in this encounter Visit Diagnoses Diagnosis Other fatigue- Primary documented in this encounter Care Teams Grocery Clerk Stocking Relationship Specialty Start Date End Date Dane Rick MD [address] [place] [address] [address] [place] [phone] PCP - General Family Medicine - Primary Care 08/09/22 [facility] Tow Truck Driver 06/12/22 01/22/24 Leticia Lieberman [address] [place] [phone] General Surgery 04/03/23 Mendoza Guzmán MD [address] [place] [address] [address] [place] [phone] Otolaryngology 04/03/23 documented as of this encounter
--- OUTSIDE RECORDS SUMMARY | 2024-02-08 01:07 | XMS_ITS | Encounter Summary ---
Author Organization [facility] Address [address] [place] [address] Care Team Providers Care Brick Setter Operator Name Role Phone Vicky Chamberlain Unavailable [phone] Dane Rick MD Primary Care Provider [phone] Leticia Lieberman Unavailable Mendoza Guzmán MD Unavailable [phone] Encounter Details Date Type Department Care Team (Late st Contact Info) Description 08/08/2023 Patient Outreach [facility] Family Medicine - [facility] [address] [place] [address] Vicky Chamberlain LICSW [address] [address] Social History Tobacco Use Types [...] this encounter Progress Notes * Vicky Chamberlain, TABLE KEEPER - 08/08/2023 7886 EDT [facility] Care Management Follow Up Route Inspector followed up with Kenyatta by phone for care coordination. TOPIC OF CONVERSATION: Reviewed assessment and plan from previous visit with patient. Engaged patient in conversation related to positive behavior change, self- management, goal setting and action planning using motivational interviewing and active listening. Medication reviewed: Receiving radiation treatment, ongoing. Social determinants of health needs reviewed: No new needs identified Gaps in community resources: No new needs identified Education provided on condition and/or disease: yes Ongoing Radiation treatment at [facility] in [facility] Mentions that she's been experiencing ongoing left leg pain. Very serious, loses strength when walking Ongoing left neck pain Likely should have [facility] updated. Continues to live in her apartment, by herself. Family has suggested her moving into apartment with family in [place]. Current has assets that limit her to qualification for Medicaid Notes that she has reduced taking the anti-anxiety medications Concerned about the side effects Note from my last follow up with Kenyatta on 06/15/23 Kenyatta explains that she has been experiencing pain in her left leg/knee Knee at one point was bone on bone from 1989 Now when she walks she's feeling similarly to 1989, noting cracking and feeling unstable I've fallen She noticing its Bluish, but thinks that might be the lighting Whole leg hurts from knee down (Taking water pills, feeling she might be having some side effects) Bottom of her foot feels like its pulling apart, has a ankle brace that she used of about a week Some swelling, notes when she takes off socks that she sees a ridge. Left shoulder also hurting, with radiating pain up to ear, over the top of her head, did see Dr. Guzmán for L side pain recently No difference from removal of infected teeth Notes a spot on the back of her head that radiates pain Prioritized Patient Identified Goals: Kenyatta will follow up with PCP for follow up on her leg. Achievement towards goals: In progress 2. Kenyatta will attend follow up appointments with [facility], radiology/Hem Onc and Dr. Rick Achievement towards goals: In progress, On Going Plan: CM will attempt to be available for follow up PCP Next Route InspectorFruit And Vegetable Packer: 10/10/2023 LATRICE ENCISO 08/08/2023 13:57 documented in this encounter Plan of Treatment Upcoming Encounters Date Type Department Care Team (Late st Contact Info) Description 05/19/2024 11:00 EST Office Visit [facility] Family Medicine [address], [facility] [address] [place] [address] Dane Rick MD [address] [place] [address] [address] [place] [address] documented as of this encounter Visit Diagnoses Not on filedocumented in this encounter Care Teams Brick Setter Operator Relationship Specialty Start Date End Date Dane Rick MD [address] [place] [address] [address] [place] [address] PCP - General Family Medicine - Primary Care 08/09/22 Vicky Chamberlain LICSW Route Inspector 06/12/22 01/22/24 Leticia Lieberman [address] [place] [phone] General Surgery 04/03/23 Mendoza Guzmán MD [address] [place] [address] [address] [place] [address] Otolaryngology 04/03/23 documented as of this encounter
--- OUTSIDE RECORDS SUMMARY | 2024-02-08 01:07 | XMS_ITS | Encounter Summary ---
Author Organization [facility] Address [address] [place] [address] Care Team Providers Care Visual Merchandising Manager Name Role Phone Vicky Chamberlain Unavailable [phone] Dane Rick MD Primary Care Provider [phone] Leticia Lieberman Unavailable Mendoza Guzmán MD Unavailable [phone] Reason for Visit * Reason Onset Date Comments Diagnostic Imaging Report 12/31/2023 Encounter Details Date Type Department Care Team (Late st Contact Info) Description 12/31/2023 Telephone [facility] Family Medicine [address], [facility] [address] [place] [address] Dane Rick MD [address] [facility] [address] [place] [address] Diagnostic Imaging Report Social History Tobacco Use Types Packs/Day Years [...] encounter Miscellaneous Notes * Telephone Encounter - Page, Lauren, RN - 01/04/2024 1406 EDT Spoke with [facility]ichi Reed from [facility]. Mammo and L breast US are all the imaging pt needs. If pt wants to have this imaging done outside of [facility], she needs to call and request external referral from them. The only thing [facility] would need from PCP is monitoring LFTs. Did relay the information above to pt. Had lengthy conversation with pt where she shared her frustrations with the medical profession in general, as well as with having her appts rescheduled at this ofc. Pt also states she still has many questions regarding her care, but would not share what theywere, or discuss them with this RN because I should be able to talk to my doctor. Pt was very frustrated when this documentation writer was unable to schedule or discuss specifics of upcoming OVs at [facility] for her. Offered pt advocacy's # several times which pt declined. Pt states she has halted all medical care and will no longer pursue care, but later stated that she is upset she has to wait until 01/28 to see JI, but plans to keep her upcoming OVs and will call [facility]. JI: Imaging orders are complete. The only thing [facility] would need from PCP is continuing to monitor LFTs. * Telephone Encounter - Lauren Wilde RN - 01/04/2024 0956 EDT Called [facility] - with Helen for Keisha Valles APRN (who ordered the imaging) * Telephone Encounter - Lauren Wilde RN - 12/31/2023 1152 EDT JI wants to know: Where does pt need to get imaging done ([facility] or [facility]?) Were these the only 2 orders(11/15 orders for mammo and L breast US) needed for pt or was there something else pcp needs to order? (No onc notes). * Telephone Encounter - Dane Rick MD - 12/31/2023 0833 EDT Please call patient regarding message sent to me by the ER physician. Patient was asking for a mammogram. Patient has a history of breast cancer currently treated at [facility]. I don't see in her notes from [facility] explicit directions to have a mammogram done. Please call patient to clarify what imaging her oncologist is recommending. documented in this encounter Plan of Treatment Upcoming Encounters Date Type Department Care Team (Late st Contact Info) Description 05/19/2024 11:00 EST Office Visit [facility] Family Medicine [address], [facility] [address] [place] [address] Dane Rick MD [address] [place] [address] [address] [place] [address] documented as of this encounter Visit Diagnoses Not on filedocumented in this encounter Care Teams Visual Merchandising Manager Relationship Specialty Start Date End Date Dane Rick MD [address] [place] [address] [address] [place] [address] PCP - General Family Medicine - Primary Care 08/09/22 Vicky Chamberlain [facility] Oral And Maxillofacial Surgery Resident 06/12/22 01/22/24 Leticia Lieberman [address] [place] [phone] General Surgery 04/03/23 Mendoza Guzmán MD [address] [place] [address] [address] [place] [phone] Otolaryngology 04/03/23 documented as of this encounter
--- OUTSIDE RECORDS SUMMARY | 2024-02-08 01:07 | XMS_ITS | Encounter Summary ---
Author Organization [facility] Address [address] [place] [address] Care Team Providers Care Dye Weigher Name Role Phone Vicky Chamberlain Unavailable [phone] Dane Rick MD Primary Care Provider Leticia Lieberman Unavailable Mendoza Guzmán MD Unavailable [phone] Reason for Visit * Reason Comments Weakness Pt has had worsening fatigue and weakness since ~ Sunday. Currently undergoing radiation for breast ca. Endorsing poor po intake, urinary frequency and urgency. Endorsing confusion at home. Denies fevers, chills. PCP and hem/onc in [facility] advised visit ED. Encounter Details Date Type Department Care Team ([facility] Contact Info) Description 08/13/2023 12:52 EDT - 08/13/2023 21:49 EDT Emergency [facility] Emergency Department [address], [place] [address] Vish Heart DO [address] [place] [id number] Fatigue, unspecified type (Primary Dx) Discharge Disposition: Home or Self [...] Sign Reading Time Taken Comments Blood Pressure 187/73 08/13/20232000 EDT Pulse 55 08/13/20232000 EDT Temperature 37.3 ??C (99.2 ??F) 08/13/2023 1249 EDT Respiratory Rate 13 08/13/20232000 EDT Oxygen Saturation 95% 08/13/2023 1800 EDT Inhaled Oxygen Concentration - - Weight 65.3 kg (144 lb) 08/13/2023 1249 EDT Height 149.9 cm (4' 11) 08/13/2023 1249 EDT Body Mass Index 29.08 08/13/2023 1249 EDT documented in this encounter Functional Status [...] this encounter Discharge Instructions * Discharge Instructions* Héctor Rincon PA-C - 08/13/2023 20:35 EDT You were seen today for fatigue, lightheadedness, and weakness. Your lab work, exam, chest x-ray, and CT scan were all quite reassuring. It is unclear exactly whatis causing this, it is likely related to your radiation. Follow-up with your oncology team and primary care provider. Return to the ED for new or worsening symptoms. documented in this encounter Medications at Time of Discharge Medication Sig Dispensed Refills Start Date End Date aspirin 81 mg EC tablet Take 1 Tablet by mouth every 48 hours. 09/19/2022 furosemide (LASIX) 20 mg tablet Take 1 Tablet by mouth daily. 90 Tablet 04/03/2023 letrozole (FEMARA) 2.5 mg tablet Take 1 Tablet by mouth daily. 05/29/2023 losartan (COZAAR) 100 mg tablet TAKE 1 TABLET BY MOUTH EVERY DAY 90 Tablet 3 08/14/2023 ergocalciferol, vitamin D2, (VITAMIN D ORAL) Take 1 Tablet by mouth daily at 1200. 01/22/2024 hydrOXYzine (ATARAX) 25 mg tablet Take 1 Tablet by mouth 3 times daily as needed for Itching. 60 Tablet 09/19/2022 01/29/2024 losartan (COZAAR) 100 mg tablet Take 1 Tablet by mouth daily. 90 Tablet 1 12/26/2022 08/14/2023 MAGNESIUM GLUCONATE ORAL Take 1 Tablet by mouth daily at 1200. 01/29/2024 documented as of this encounter Discharge Disposition Disposition Code Departure Means Destination Comment s Home or Self Nursing Home documented in this encounter ED Notes * Héctor Rincon PA-C - 08/13/2023 1213 EDT Emergency Department Visit Medical Decision Making 82-year-old female with history of hypertension, CHF, CVA, invasive ductal carcinoma of right breast who started beam radiation therapy 1 week ago presents with 4 days worsening weakness, lightheadedness, fatigue. States she has been furniture surfing. She also endorses left neck and left shoulder pain. Denies fever, chest pain, difficulty breathing, belly pain, vomiting, or diarrhea. On exam she is in no acute distress with hypertension but otherwise stable vitals. She has left posterior lateral neck tenderness and muscle tension. She has left upper quadrant and left lower quadrant tenderness Labs show elevated inflammatory markers with CRP 71, white count normal, mild anemia, negative troponin, elevated LFTs, unremarkable urine. CT abdomen pelvis without any acute abnormality. Chest x-ray without any acute abnormality. She received 1 dose of clonidine with some improvement in her blood pressure, and then improved to 160s, systolically. Unclear exactly what is causing her symptoms. She is not septic. Low suspicion for ACS, stroke. Likely side effects from radiation. Elevated LFTs likely radiation related. Stable for discharge home. Encouraged follow-up with her oncology team regarding ongoing radiation.Return precautions reviewed Case discussed with and patient seen by Dr. Heart, who was in agreement with assessment and plan. Relevant Data as of 08/13/23 2316 SunAugust 13, 2023 1901 IMPRESSION 1. No acute intra-abdominal or pelvic process. 2. No generalized ileus or bowel obstruction. 3. Scattered colon diverticuli without evidence of diverticulitis. 4. Normal liver and gallbladder. No biliary tract dilatation. [MS] 2012 COVID-19 rt-PCR Result: Negative [AF] 2012 RSV RNA Result: Negative [AF] 2012 Flu B RNA Result: Negative [AF] 2012 Flu A RNA Result: Negative [AF] 2305 RBC, UA: 0 - 2 [MS] 2305 WBC, UA: 0 - 3 [MS] 2305 Urine Squamous Count, Auto: None Seen [MS] 2305 Bacteria, UA: None Seen [MS] 2305 Nitrite: Negative [MS] 2305 Ketones(!): Trace [MS] 2310 Lipase: 62 [MS] 2310 Magnesium: 1.8 [MS] 2310 Troponin I (ng/mL): <0.034 [MS] 2310 C-Reactive Protein(!): 71.3 [MS] 2310 WBC: 6.35 [MS] 2310 Hemoglobin(!): 11.5 [MS] 2310 HCT(!): 33.8 [MS] 2310 PLT: 189 [MS] 2310 ABS Neutrophils: 5.04 [MS] Relevant Data User Index [AF] Vish Heart DO [MS] Héctor Rincon PA-C EKG (independent interpretation): Sinus rhythm, rate 61, no acute ischemic changes Imaging (independent interpretation) of the CT: No acute intra-abdominal pathology Medical Decision Making Problems Addressed: Fatigue, unspecified type: complicated acute illness or injury Amount and/or Complexity of Data Reviewed Labs: Decision-making details documented in ED Course. Radiology: ordered. Risk Prescription drug management. Final diagnoses: Fatigue, unspecified type Disposition: Discharged Chief complaint: Weakness HPI Kenyatta Lopez is a 82 y.o. female with history of hypertension, CHF, CVA, invasive ductal carcinoma of right breast who started beam radiation 1 week ago who presents to the ED for 4 days worsening weakness, difficulty ambulating due to weakness, lightheadedness, and fatigue a few days ago she had urinary frequency and very dark urine, this has improved slightly but her urine is still darker than normal. Also endorses nausea, left-sided shoulder and neck pain. Denies fever, chills, body aches, chest pain, difficulty breathing, belly pain, vomiting, or diarrhea. History was provided by: Patient, daughter Records reviewed include: 07/31/23 [facility] [place] Patient's pertinent PMH, FH, SH were reviewed and edited as necessary. Nursing notes reviewed. A medical screening exam was performed. Physical Exam BP (!) 187/73 Pulse 55 Temp 37.3 ??C (99.2 ??F) (Oral) Resp 13 Ht (!) 149.9 cm (59) Wt 65.3 kg (144 lb) SpO2 95% BMI 29.08 kg/m?? Physical Exam Vitals and nursing note reviewed. Constitutional: General: She is not in acute distress. Appearance: Normal appearance. HENT: Head: Normocephalic and atraumatic. Right Ear: External ear normal. Left Ear: External ear normal. Nose: Nose normal. Mouth/Throat: Mouth: Mucous membranes are moist. Eyes: Extraocular Movements: Extraocular movements intact. Pupils: Pupils are equal, round, and reactive to light. Cardiovascular: Rate and Rhythm: Normal rate and regular rhythm. Heart sounds: Normal heart sounds. Pulmonary: Effort: Pulmonary effort is normal. Breath sounds: Normal breath sounds. Abdominal: Palpations: Abdomen is soft. There is no mass. Tenderness: There is abdominal tenderness (LLQ and LUQ tenderness). Musculoskeletal: General: No swelling or deformity. Normal range of motion. Cervical back: Normal range of motion and neck supple. Tenderness (Left posterior lateral neck tenderness) present. Skin: General: Skin is warm and dry. Neurological: General: No focal deficit present. Mental Status: She is alert and oriented to person, place, and time. Psychiatric: Mood and Affect: Mood normal. Behavior: Behavior normal. Procedures Procedures * Vish Heart DO - 08/13/2023 1213 EDT I reviewed this case with the Advanced Practice Provider. I personally made/approved the managementplan for this patient and take responsibility for the patient management. I evaluated this patient [id number] and provided a substantive portion of the patient's care. My personal evaluation included a face to face history and physical exam, review of nursing notes, review of vital signs, review of relevant records, and review of diagnostic data. Based on all of these elements I formulated, and/or participated substantively in the medical decision making, including assessing the level of risk of the patient's complaints and condition, establishing a diagnosis and/or selecting management options. EKG (independent interpretation): Sinus rhythm rate of 61. Normal axis. Normal HI, QRS, QT interval. No ischemic ST-T changes. Imaging (independent interpretation) of the CT: No acute intra-abdominal process Final diagnoses: None documented in this encounter Plan of Treatment Upcoming Encounters Date Type Department Care Team (Late st Contact Info) Description 05/19/2024 11:00 EST Office Visit [facility] Medicine [address], [address] [place], [place] [id number] Dane Rick MD [address] [place] [address] [address] [place] [address] documented as of this encounter Procedures Procedure Name Priority Date/Time Associated Diagnosis Comments SARS COV2, FLU A/B, RSV DETECT BY PCR STAT 08/13/2023 19:26 EDT XR CHEST 2 VIEWS STAT 08/13/2023 18:[address] ABDOMEN PELVIS W CONTRAST STAT 08/13/2023 18:01 EDT ECG REPORT - SCANNED 08/13/2023 16:36 EDT BACTERIAL CULTURE, BLOOD STAT 08/13/2023 15:14 EDT UA WITH REFLEX SEDIMENT (CULTURE IF POS) STAT 08/13/2023 15:01 EDT UA SEDIMENT + REFLEX TO CULTURE STAT 08/13/2023 15:01 EDT EKG 12-LEAD STAT 08/13/2023 14:46 EDT HN LAB CBC SMEAR REVIEW Today 08/13/2023 14:24 EDT BACTERIAL CULTURE, BLOOD STAT 08/13/2023 14:24 EDT TROPONIN I STAT 08/13/2023 14:24 EDT COMPLETE BLOOD COUNT AND DIFFERENTIAL STAT 08/13/2023 14:24 EDT C REACTIVE PROTEIN STAT Add-on 08/13/2023 14 :24 EDT MAGNESIUM STAT 08/13/2023 14:24 EDT LIPASE STAT 08/13/2023 14:24 EDT COMPREHENSIVE METABOLIC PANEL (CMP) STAT 08/13/2023 14:24 EDT PROCALCITONIN STAT 08/13/2023 13:49 EDT documented in this encounter Results * SARS COV2, FLU A/B, RSV DETECT BY PCR (08/13/2023 19:26 EDT) FLU A RNA Result (FLARES) Negative Negative 08/13/2023 20:07 EDT [facility] FLU B RNA Result (FLBRES) Negative Negative 08/13/2023 20:07 EDT [facility] RSV RNA Result (RSVRES) Negative Negative 08/13/2023 20:07 EDT [facility] COVID-19 rt-PCR Result Negative Negative 08/13/2023 20:07 EDT [facility] Comment: The 2019 novel coronavirus (SARS-CoV-2) target nucleic acids are not detected. Performed on the [employer] GeneXpert Instrument Swab NASOPHARYNGEAL STRUCTURE / Unknown Swab / Unknown 08/13/2023 19:26 EDT 08/13/2023 19:28 EDT Héctor Rincon PA-C MICROBIOLOGY - GENER AL ORDERABLES [facility] [address] [place] [address] * XR CHEST 2 VIEWS (08/13/2023 18:06 EDT) Anatomical Region Laterality Modality Computed Radiogr aphy 08/13/2023 18:0 2 EDT Impressions 08/13/2023 18:40 EDT No active pulmonary disease. THIS DOCUMENT HAS BEEN ELECTRONICALLY SIGNED BY HUMPHREY OCAMPO MD FOR ANY QUESTIONS OR CONCERNS REGARDING THIS REPORT PLEASE CALL [facility] AT [phone] Narrative 08/13/2023 18:40 EDT PROCEDURE INFORMATION: Exam: XR Chest Exam date and time: 08/13/2023 6:02 PM Age: 82 years old Clinical indication: Other: Left lower lobe crackles TECHNIQUE: Imaging protocol: Radiologic exam of the chest. Views: 2 views. COMPARISON: CT CHEST W CONTRAST 03/02/2023 11:25 AM FINDINGS: Tubes, catheters and devices: Cardiac leads superimposed over the chest. Lungs: No alveolar infiltrate. Pleural spaces: No pneumothorax. No pleural fluid collection. Heart/Mediastinum: Normal heart size. Bones/joints: Spinal degenerative changes. Procedure Note Humphrey Ocampo MD - 08/13/2023 PROCEDURE INFORMATION: Exam: XR Chest Exam date and time: 08/13/2023 6:02 PM Age: 82 years old Clinical indication: Other: Left lower lobe crackles TECHNIQUE: Imaging protocol: Radiologic exam of the chest. Views: 2 views. COMPARISON: CT CHEST W CONTRAST 03/02/2023 11:25 AM FINDINGS: Tubes, catheters and devices: Cardiac leads superimposed over the chest. Lungs: No alveolar infiltrate. Pleural spaces: No pneumothorax. No pleural fluid collection. Heart/Mediastinum: Normal heart size. Bones/joints: Spinal degenerative changes. IMPRESSION No active pulmonary disease. THIS DOCUMENT HAS BEEN ELECTRONICALLY SIGNED BY HUMPHREY OCAMPO MD FOR ANY QUESTIONS OR CONCERNS REGARDING THIS REPORT PLEASE CALL [facility] [phone] Héctor Rincon PA-C IMG DIAGNOSTIC IMAGI NG ORDERABLES * CT ABDOMEN PELVIS W CONTRAST (08/13/2023 18:01 EDT) Anatomical Region Laterality Modality Body, Abdomen, Pelvis, Abdomen and Pelvis Computed Tomography 08/13/2023 17:5 2 EDT Impressions 08/13/2023 18:39 EDT 1. ?? No acute intra-abdominal or pelvic process. 2. ?? No generalized ileus or bowel obstruction. 3. ?? Scattered colon diverticuli without evidence of diverticulitis. 4. ?? Normal liver and gallbladder. ??No biliary tract dilatation. THIS DOCUMENT HAS BEEN ELECTRONICALLY SIGNED BY HUMPHREY OCAMPO MD FOR ANY QUESTIONS OR CONCERNS REGARDING THIS REPORT PLEASE CALL [facility] AT [phone] Narrative 08/13/2023 18:39 EDT PROCEDURE INFORMATION: Exam: CT Abdomen And Pelvis With Contrast Exam date and time: 08/13/2023 5:52 PM Age: 82 years old Clinical indication: Abdominal pain; Left upper quadrant / left lower quadrant tenderness, elevated LFTs, elevated bilirubin TECHNIQUE: Imaging protocol: Computed tomography of the abdomen and pelvis with contrast. Radiation optimization: All CT scans at this facility use at least one of these dose optimization techniques: automated exposure control; mA and/or kV adjustment per patient size (includes targeted exams where dose is matched to clinical indication); or iterative reconstruction. Contrast material: OMNI 350; Contrast volume: 100 ml; Contrast route: INTRAVENOUS (IV); ?? COMPARISON: CT ABDOMEN PELVIS W CONTRAST 03/02/2023 11:25 AM FINDINGS: Lungs: No acute infiltrate in either lung base. Liver: Normal. No mass. Gallbladder and bile ducts: Normal. No calcified stones. No ductal dilation. Pancreas: Normal. No ductal dilation. Spleen: Normal. No splenomegaly. Adrenal glands: Normal. No mass. Kidneys and ureters: No hydronephrosis. No calcified renal or ureteral stones. No perinephric stranding or perinephric fluid. Posterior right renal cortical 1.7 cm stable benign cyst for which no follow-up imaging is recommended. Stomach and bowel: No generalized ileus or bowel obstruction. Scattered colon diverticuli without evidence of diverticulitis. Duodenal diverticula. Appendix: Normal appendix. Intraperitoneal space: No free air. No significant fluid collection. Vasculature: The abdominal aorta is normal in caliber without aneurysm or dissection. Scattered arterial calcifications. Lymph nodes: No enlarged lymph nodes. Urinary bladder: Unremarkable as visualized. Reproductive: Left lateral uterine stable partially-calcified uterine leiomyoma. 11 mm leiomyoma within the superolateral right uterus. Bones/joints: Spinal degenerative changes. Soft tissues: Unremarkable. Procedure Note Humphrey Ocampo MD - 08/13/2023 PROCEDURE INFORMATION: Exam: CT Abdomen And Pelvis With Contrast Exam date and time: 08/13/2023 5:52 PM Age: 82 years old Clinical indication: Abdominal pain; Left upper quadrant / left lower quadrant tenderness, elevated LFTs, elevated bilirubin TECHNIQUE: Imaging protocol: Computed tomography of the abdomen and pelvis with contrast. Radiation optimization: All CT scans at this facility use at least one of these dose optimization techniques: automated exposure control; mA and/or kV adjustment per patient size (includes targeted exams where dose is matched to clinical indication); or iterative reconstruction. Contrast material: OMNI 350; Contrast volume: 100 ml; Contrast route: INTRAVENOUS (IV); COMPARISON: CT ABDOMEN PELVIS W CONTRAST 03/02/2023 11:25 AM FINDINGS: Lungs: No acute infiltrate in either lung base. Liver: Normal. No mass. Gallbladder and bile ducts: Normal. No calcified stones. No ductal dilation. Pancreas: Normal. No ductal dilation. Spleen: Normal. No splenomegaly. Adrenal glands: Normal. No mass. Kidneys and ureters: No hydronephrosis. No calcified renal or ureteral stones. No perinephric stranding or perinephric fluid. Posterior right renal cortical 1.7 cm stable benign cyst for which no follow-up imaging is recommended. Stomach and bowel: No generalized ileus or bowel obstruction. Scattered colon diverticuli without evidence of diverticulitis. Duodenal diverticula. Appendix: Normal appendix. Intraperitoneal space: No free air. No significant fluid collection. Vasculature: The abdominal aorta is normal in caliber without aneurysm or dissection. Scattered arterial calcifications. Lymph nodes: No enlarged lymph nodes. Urinary bladder: Unremarkable as visualized. Reproductive: Left lateral uterine stable partially-calcified uterine leiomyoma. 11 mm leiomyoma within the superolateral right uterus. Bones/joints: Spinal degenerative changes. Soft tissues: Unremarkable. IMPRESSION 1. No acute intra-abdominal or pelvic process. 2. No generalized ileus or bowel obstruction. 3. Scattered colon diverticuli without evidence of diverticulitis. 4. Normal liver and gallbladder. No biliary tract dilatation. THIS DOCUMENT HAS BEEN ELECTRONICALLY SIGNED BY HUMPHREY OCAMPO MD FOR ANY QUESTIONS OR CONCERNS REGARDING THIS REPORT PLEASE CALL [facility] [phone] Héctor Rincon PA-C Shara CT ORDERABLES * ECG REPORT - SCANNED (08/13/2023 16:36 EDT) 08/13/2023 16:3 6 EDT Scan 2 Nurse Staff Industrial PROCEDURE/MINOR PRINCESS GICAL ORDERABLES * BACTERIAL CULTURE, BLOOD (08/13/2023 15:14 EDT) Organism ID No Growth at 5 days VITEK SUSCEPTIBILITY 08/18/2023 15:31 EDT [facility] Blood VENOUS BLOOD / Unknown Venipuncture / Unknown 08/13/2023 15:14 EDT 08/13/2023 15:26 EDT Lisa Chun MD MICROBIOLOGY - GEN ERAL ORDERABLES [facility] [address] [place] [address] * (ABNORMAL) UA SEDIMENT + REFLEX TO CULTURE (08/13/2023 15:01 EDT) Urine RBC Count, Manual 0 - 2 0 - 2 Cells/HPF 08/13/2023 15:33 EDT [facility] Urine WBC Count 0 - 3 0 - 3 Cells/HPF 08/13/2023 15:33 EDT [facility] Urine Squamous Count, Manual None Seen None Seen Cells/HPF 08/13/2023 15:33 EDT [facility] Urine Hyaline Cast Count, Manual <=10 <=10 Casts/LPF 08/13/2023 15:33 EDT [facility] Urine Bacteria Count, Manual None Seen None Seen Bacteria/ HPF 08/13/2023 15:33 EDT [facility] Additional Findings Amorphous material present(A) None Seen 08/13/2023 15:33 EDT [facility] Urine URINE SPECIMEN OBTAINED BY CLEAN CATCH PROCEDURE / Unknown Urine Collect / Unknown 08/13/2023 15:01 EDT 08/13/2023 15:07 EDT Narrative [facility] - 08/13/2023 15:33 EDT Urine Sediment Analysis results are unreliable on urines that are unrefrigerated for >2 hrs or refrigerated >8 hrs. NOTE: Reflex to Urine Culture test is not indicated based on Urine Sediment Analysis results. Héctor Rincon PA-C URINALYSIS ORDERABLE S Performing Organization Address [facility]/ZIP Co de Phone Number [facility] [address] [place] [address] * (ABNORMAL) UA CASCADE TO CULTURE (08/13/2023 15:01 EDT) Color UA Yellow Colorless, Yellow 08/13/2023 15:17 [facility] Clarity UA Cloudy(A) Clear 08/13/2023 15:17 [facility] Glucose UA Negative Negative mg/dL 08/13/2023 15:17 [facility] Bilirubin UA Negative Negative 08/13/2023 15:17 [facility] Ketones UA Trace(A) Negative 08/13/2023 15:17 [facility] Specific [place], Urine 1.015 1.001 - 1.030 08/13/2023 15:17 [facility] Blood UA Negative Negative 08/13/2023 15:17 [facility] pH, UA 7.5 <8.5 08/13/2023 15:17 [facility] Protein UA Negative Negative mg/dL 08/13/2023 15:17 [facility] Urobilinogen UA 2.0(A) 0.2-1.0 mg/dL mg/dL 08/13/2023 15:17 [facility] Nitrite UA Negative Negative 08/13/2023 15:17 [facility] Leukocyte Esterase UA Negative Negative 08/13/2023 15:17 [facility] Urine URINE SPECIMEN OBTAINED BY CLEAN CATCH PROCEDURE / Unknown Urine Collect / Unknown 08/13/2023 15:01 EDT 08/13/2023 15:07 EDT Héctor Rincon PA-C URINALYSIS ORDERABLE S Performing Organization Address City/[facility]/ZIP Co de Phone Number [facility] [address] [place] [id number] * EKG 12-LEAD (08/13/2023 14:46 EDT) 08/13/2023 14:4 6 EDT Narrative [facility] - 08/13/2023 16:28 EDT ? [facility] ? Test Date: ?2023-08-13 Pat Name: ? KENYATTA LOPEZ ? Department: ? Room: ? C03 Gender: ? Female ? Bilingual Office Assistant: ?? RR : ?1940 ? Requested By: LETITIA Love Order Number: [id number] ? Corinna MD: ?? LAVELLE BRYANT MD ? Measurements Intervals ?[place] ? Rate: ? 61 ? P: ?44 HI: ? 182 ?QRS: ?-13 QRSD: ? 82 ? T: ?24 QT: ? 408 ? QTc: ?410 ? Interpretive Statements Normal sinus rhythm Compared to ECG 01/18/2023 19:20:51 Sinus bradycardia no longer present I reviewed the tracing and have either agreed or edited the findings in this report. Electronically Signed On 08-13-2023 16:28:39 EDT by LAVELLE BRYANT MD. Procedure Note Lavelle Bryant MD - 08/13/2023 [facility] [place]: 2023-08-13 Pat Name: KENYATTA LOPEZ Department: Room: C03 Gender: Female Bilingual Office Assistant: RR : 1940 Requested By: LETITIA Love Order Number: [id number] Corinna MD: LAVELLE BRYANT MD Measurements Intervals [place] Rate: 61 P: 44 HI: 182 QRS: -13 QRSD: 82 T: 24 QT: 408 QTc: 410 Interpretive Statements Normal sinus rhythm Compared to ECG 01/18/2023 19:20:51 Sinus bradycardia no longer present I reviewed the tracing and have either agreed or edited the findings inthis report. Electronically Signed On 08-13-2023 16:28:39 EDT by LAVELLE WU. Héctor Rincon PA-C CARDIAC ECG ORDERABL ES [facility] * [facility] CBC SMEAR REVIEW (08/13/2023 14:24 EDT) Differential Comment Slide was examined by a technologist to verify the WBC and/or platelet count. 08/13/2023 16:32 EDT [facility] Blood VENOUS BLOOD / Unknown Venipuncture / Unknown 08/13/2023 14:24 EDT 08/13/2023 14:24 EDT Lisa Chun MD HEMATOLOGY & PF4 O RDERABLES Performing Organization Address [facility] [address] [place] [address] * (ABNORMAL) C REACTIVE PROTEIN (08/13/2023 14:24 EDT) C-Reactive Protein 71.3(H) <10.0 mg/L 08/13/2023 14:48 EDT [facility] Blood VENOUS BLOOD / Unknown Venipuncture / Unknown 08/13/2023 14:24 EDT 08/13/2023 14:24 EDT Héctor Rincon PA-C CHEMISTRY & BLOOD GA S ORDERABLES Performing Organization Address [facility] [address] [place] [address] * BACTERIAL CULTURE, BLOOD (08/13/2023 14:24 EDT) Organism ID No Growth at 5 days VITEK SUSCEPTIBILITY 08/18/2023 14:31 EDT [facility] Blood VENOUS BLOOD / Unknown Venipuncture / Unknown 08/13/2023 14:24 EDT 08/13/2023 14:24 EDT Lisa Chun MD MICROBIOLOGY - GEN ERAL ORDERABLES Performing Organization Address [facility] Co de Phone Number [facility] [address] [place] [address] * TROPONIN I (08/13/2023 14:24 EDT) Troponin I (ng/mL) <0.034 <0.034 ng/mL 08/13/2023 14:56 EDT [facility] Blood VENOUS BLOOD / Unknown Venipuncture / Unknown 08/13/2023 14:24 EDT 08/13/2023 14:24 EDT Narrative [facility] LAB - 08/13/2023 14:56 EDT The results of this assay can be falsely lowered due to the consumption of Biotin. Lisa Chun MD CHEMISTRY & BLOOD GAS ORDERABLES Performing Organization Address [facility] Co de Phone Number [facility] [address] [place] [address] * MAGNESIUM (08/13/2023 14:24 EDT) Pathologist [facility] Magnesium 1.8 1.7 - 2.8 mg/dL 08/13/2023 14:48 EDT [facility] Blood VENOUS BLOOD / Unknown Venipuncture / Unknown 08/13/2023 14:24 EDT 08/13/2023 14:24 EDT Lisa Chun MD CHEMISTRY & BLOOD GAS ORDERABLES Performing Organization Address [facility]/ZIP Id de Phone Number [facility] [address] [place] [address] * LIPASE (08/13/2023 14:24 EDT) Pathologist [facility] Lipase 62 <251 U/L 08/13/2023 14:48 EDT [facility] Blood VENOUS BLOOD / Unknown Venipuncture / Unknown 08/13/2023 14:24 EDT 08/13/2023 14:24 EDT Lisa Chun MD CHEMISTRY & BLOOD GAS ORDERABLES Performing Organization Address [facility]/ZIP Co de Phone Number [facility] [address] [place] [address] * (ABNORMAL) COMPREHENSIVE METABOLIC PANEL (CMP) (08/13/2023 14:24 EDT) Sodium 138 136 - 145 mmol/L 08/13/2023 14:48 [facility] Potassium 3.2(L) 3.5 - 5.0 mmol/L 08/13/2023 14:48 [facility] Chloride 100 96 - 110 mmol/L 08/13/2023 14:48 [facility] CO2 Total 32 22 - 32 mmol/L 08/13/2023 14:48 [facility] Glucose 82 70 - 99 mg/dl 08/13/2023 14:48 [facility] BUN 15 10 - 26 mg/dL 08/13/2023 14:48 [facility] Creatinine 0.72 0.52 - 1.04 mg/dL 08/13/2023 14:48 [facility] eGFR 84 >60 mL/min/1.7 3m2 08/13/2023 14:48 [facility] Total Protein 6.4 6.3 - 8.2 g/dL 08/13/2023 14:48 [facility] Albumin 3.7 3.4 - 4.9 g/dL 08/13/2023 14:48 [facility] Alkaline Phosphatase 166(H) 38 - 126 U/L 08/13/2023 14:48 [facility] AST 64(H) 15 - 46 U/L 08/13/2023 14:48 [facility] ALT 231(H) <35 U/L 08/13/2023 14:48 [facility] Bilirubin, Total 2.1(H) <1.4 mg/dL 08/13/19 14:48 [facility] Calcium 10.8(H) 8.5 - 10.5 mg/dL 08/13/2023 14:48 [facility] Albumin/Globulin Ratio 1.4 1.0 - 2.5 08/13/2023 14:48 [facility] Anion Gap 6 5 - 14 mmol/L 08/13/2023 14:48 [facility] Blood VENOUS BLOOD / Unknown Venipuncture / Unknown 08/13/2023 14:24 EDT 08/13/2023 14:24 EDT Lisa Chun MD CHEMISTRY & BLOOD GAS ORDERABLES [facility] [address] [place] [id number] * (ABNORMAL) COMPLETE BLOOD COUNT AND DIFFERENTIAL (08/13/2023 14:24 EDT) WBC 6.35 4.00 - 12.40 K/cmm 08/13/2023 14:40 [facility] RBC 3.91 3.86 - 5.04 M/cmm 08/13/2023 14:40 [facility] Hemoglobin 11.5(L) 11.6 - 15.2 g/dL 08/13/2023 14:40 [facility] HCT 33.8(L) 34.9 - 44.4 % 08/13/2023 14:40 [facility] MCV 86 81 - 98 fL 08/13/2023 14:40 [facility] MCH 29.4 26.7 - 33.3 pg 08/13/2023 14:40 [facility] MCHC 34.0 32.1 - 35.9 g/dL 08/13/2023 14:40 [facility] RDW-CV 13.0 <14.7 % 08/13/2023 14:40 [facility] RDW-SD 40.9 <50.4 fl 08/13/2023 14:40 [facility] PLT 189 141 - 377 K/cmm 08/13/2023 14:40 [facility] MPV 10.2 9.5 - 12.7 fL 08/13/2023 14:40 [facility] % Neutrophils 79.4 % 08/13/2023 14:40 [facility] % Lymphocytes 9.0 % 08/13/2023 14:40 [facility] % Monocytes 7.2 % 08/13/2023 14:40 [facility] % Eosinophils 3.0 % 08/13/2023 14:40 [facility] % Basophils 0.8 % 08/13/2023 14:40 [facility] % Immature Grans 0.6 % 08/13/19 14:40 [facility] Absolute Neutrophils 5.04 2.20 - 8.85 K/cmm 08/13/2023 14:40 [facility] Absolute Lymphocytes 0.57(L) 1.09 - 3.30 K/cmm 08/13/2023 14:40 [facility] Absolute Monocytes 0.46 0.10 - 0.80 K/cmm 08/13/2023 14:40 [facility] Absolute Eosinophils 0.19 0.03 - 0.61 K/cmm 08/13/2023 14:40 [facility] ABS Basophils 0.05 0.01 - 0.11 K/cmm 08/13/2023 14:40 [facility] Absolute Immature Grans 0.04 0.00 - 0.06 K/cmm 08/13/2023 14:40 [facility] Type of Differential: Auto 08/13/2023 14:40 [facility] Blood VENOUS BLOOD / Unknown Venipuncture / Unknown 08/13/2023 14:24 EDT 08/13/2023 14:24 EDT Lisa Chun MD PACKAGES & DNA PRO BE ORDERABLES [facility] [address] [place] [address] * (ABNORMAL) PROCALCITONIN (08/13/2023 13:49 EDT) Procalcitonin 1.46(H) See Note ng/mL 08/13/2023 15:03 EDT [facility] Comment: NOTE: Reference Range: <0.5 ng/mL - Low risk of severe sepsis >2.0 ng/mL - High risk of severe sepsis Blood VENOUS BLOOD / Unknown Venipuncture / Unknown 08/13/2023 13:49 EDT 08/13/2023 14:25 EDT Lisa Chun MD CHEMISTRY & BLOOD GAS ORDERABLES [facility] [address] [place] [address] documented in this encounter Visit Diagnoses Diagnosis Fatigue, unspecified type- Primary documented in this encounter Administered Medications Inactive Administered Medications - up to 3 most recent administrations Medication Order MAR Action Action Date Dose Rate Site cloNIDine HCL (CATAPRES) tablet 0.2 mg 0.2 mg, oral, NOW X1, 1 dose, On Sun08/13/23 at 1645, Routine Given 08/13/2023 16:54 EDT 0.2 mg iohexoL (OMNIPAQUE 350) solution 100 mL 100 mL, intravenous, Once in imaging, 1 dose, Starting on Sun08/13/23 at 1746, Until Sun08/13/23 at 1801, Routine Given 08/13/2023 18:01 EDT 100 mL lactated ringers BOLUS 500 mL 500 mL, intravenous, NOW X1, 1 dose, On Sun08/13/23 at 1500, STAT New Bag 08/13/2023 14:40 EDT 500 mL documented in this encounter Historical Medications * This list may reflect changes made after this encounter. Medication Sig Dispensed Refills Start Date End Date letrozole (FEMARA) 2.5 mg tablet Take 1 Tablet by mouth daily. 05/29/2023 added in this encounter Active and Recently Administered Medications Times are shown in EDT. Scheduled Medication Order 08/11/2023 08/12/2023 08/13/2023 cloNIDine HCL (CATAPRES) tablet 0.2 mg (COMPLETED) 0.2 mg, oral, NOW X1, 1 dose, On Sun08/13/23 at 1645, Routine 1654 (Given - Provid er: Susana Sharpe, HARINDER) iohexoL (OMNIPAQUE 350) solution 100 mL (COMPLETED) 100 mL, intravenous, Once in imaging, 1 dose, Starting on Sun08/13/23 at 1746, Until Sun08/13/23 at 1801, Routine 1801 (Given - Provid er: Torie Quiroz) lactated ringers BOLUS 500 mL (COMPLETED) 500 mL, intravenous, NOW X1, 1 dose, On Sun08/13/23 at 1500, STAT 1440 (New Bag - Prov ider: Rosanne Arauz, HARINDER)1500 (IV Stopped - Provider: Susana Sharpe, HARINDER) documented in this encounter Additional Health Concerns Infection Onset Date Last Indicated Resolved Time R/O COVID-19 08/13/2023 08/13/2023 08/13/2023 20:0 7 EDT documented as of this encounter Care Teams Dye Weigher Relationship Specialty Start Date End Date Dane Rick MD [address] [place] [address] [address] [place] [phone] PCP - General Family Medicine - Primary Care 08/09/22 Vicky Chamberlain, [place] [facility] Finance Attorney 06/12/22 01/22/24 Leticia Lieberman [address] [place] [phone] General Surgery 04/03/23 Mendoza Guzmán MD [address] [place] [address] [address] [place] [phone] Otolaryngology 04/03/23 documented as of this encounter
--- OUTSIDE RECORDS SUMMARY | 2024-02-08 01:07 | XMS_ITS | Encounter Summary ---
Author Organization [facility] Address [address] [place] [address] Care Team Providers Care Site Administrator Name Role Phone Vicky Chamberlain Unavailable [phone] Dane Rick MD Primary Care Provider [phone] Leticia Lieberman Unavailable Mendoza Guzmán MD Unavailable [phone] Reason for Visit * Reason Onset Date Comments Coordination Of Care 08/08/2023 Encounter Details Date Type Department Care Team (Late st Contact Info) Description 08/08/2023 Telephone [facility] Family Medicine - [facility] [address] [place] [address] Vicky Chamberlain LICSW [address] [facility] [address] [phone] Coordination Of Care Social History Tobacco Use Types Packs/Day [...] encounter Miscellaneous Notes * Telephone Encounter - Dottie Brooks 08/15/2023 0913 EDT Patient called back and cancelled radiation appointments so she wanted to schedule an appointment with [facility], scheduled * Telephone Encounter - Radha Carmen - 08/08/2023 1456 EDT Patient declined appt as [facility] have already evaluated leg. * Telephone Encounter - Vicky Chamberlain LICSW - 08/08/2023 1422 EDT Hi, I spoke with Kenyatta today Could you please schedule her LENARD with Dr. Rick? She has been experiencing some left leg pain that she has some questions. We also need to complete an Advance Directive (I can do this with her) Thank you documented in this encounter Plan of Treatment Upcoming Encounters Date Type Department Care Team (Late st Contact Info) Description 05/19/2024 11:00 EST Office Visit [facility] Family Medicine [address], [facility] [address] [place] [address] Dane Rick MD [address] [place] [phone] documented as of this encounter Visit Diagnoses Not on filedocumented in this encounter Additional Health Concerns Infection Onset Date Last Indicated Resolved Time R/O COVID-19 08/13/2023 08/13/2023 08/13/2023 20:0 7 EDT documented as of this encounter Care Teams Site Administrator Relationship Specialty Start Date End Date Dane Rick MD [address] [place] [phone] PCP - General Family Medicine - Primary Care 08/09/22 Vicky Chamberlain LICSW [employer] Receptionist 06/12/22 01/22/24 Leticia Lieberman [address] [place] [phone] General Surgery 04/03/23 Mendoza Guzmán MD [address] [place] [phone] Otolaryngology 04/03/23 documented as of this encounter
--- OUTSIDE RECORDS SUMMARY | 2024-02-08 01:07 | XMS_ITS | Encounter Summary ---
Author Organization [facility] Address [address] [place] [address] Care Team Providers Care Painter [place] Name Role Phone Vicky Chamberlain Unavailable [phone] Dane Rick MD Primary Care Provider Leticia Lieberman Unavailable Mendoza Guzmán MD Unavailable [phone] Reason for Referral * Consult (Routine/Next Available) - Closed Specialty Diagnoses / Procedures [facility] Referred To Contact Podiatry Diagnoses Weakness of left foot Dane Rick MD [address] [facility] [address] [place] [phone] [facility] [address] [place] [address] Referral ID Status Reason Start Date Expiration Date V isits Requested Visits Authorized [id number] Closed Specialty Services Required 08/20/2023 1 1 Question Answer Reason for Request: chronic left foot weakness, falls toward that side Reason for Visit * Reason Comments Fatigue Otalgia Left Encounter Details Date Type Department Care Team ([facility] Contact Info) Description 08/20/2023 16:30 EDT Office Visit [facility] Family Medicine - [place] [address] [facility], [place] [address] [place] [address] Dane Rick MD [address] [place] [phone] Elevated LFTs (Primary Dx); Weakness of left foot; Malignant neoplasm of upper-outer quadrant of right breast in female, estrogen receptor positive (HCC-CMS) Social History Tobacco Use Types Packs/Day Years [...] Sign Reading Time Taken Comments Blood Pressure 124/65 08/20/2023 1614 EDT Pulse 59 08/20/2023 1614 EDT Temperature - - Respiratory Rate - - Oxygen Saturation 97% 08/20/2023 1614 EDT Inhaled Oxygen Concentration - - Weight 65.3 kg (144 lb) 08/20/2023 1614 EDT kindra ent declines weight, reports home weight Height 149.9 cm (4' 11) 08/20/2023 1614 EDT Body Mass Index 29.08 08/20/2023 1614 EDT documented in this encounter Functional Status [...] No 03/21/2021 documented as of this encounter Ordered Prescriptions Prescription Sig Dispensed Refills Start Date End Da te omeprazole (PRILOSEC) 20 mg capsule Take 1 Capsule by mouth daily. 30 Capsule 1 08/20/2023 08/20/2023 documented in this encounter Progress Notes * Dane Rick MD - 08/20/2023 1630 EDT Patient Name: Kenyatta Vizcaino Age: 82 y.o. Date: 08/20/23 ASSESSMENT/PLAN: 1. Elevated LFTs Unclear etiology, possible SE of XRT. Recheck labs in a few weeks, consider GI eConsult - COMPREHENSIVE METABOLIC PANEL (CMP); Future - VITAMIN B12 2. Weakness of left foot - AMB CONS/FOLLOW UP PODIATRY; Future 3. Malignant neoplasm of upper-outer quadrant of right breast in female, estrogen receptor positive(HCC-CMS) Discussed risks and benefits of forgoing radiation. Recommended discussing with heme A total of 40 minutes was spent in reviewing medical history, performing examination and evaluation, counseling, ordering and interpreting tests, care coordination, and documenting clinical information on the day of the encounter. For any new medications prescribed today, patient was educated about indications for the medication, how to take the medication and potential side effects of the medications. SUBJECTIVE Kenyatta Vizcaino is a 82 y.o. female here for: Chief Complaint Patient presents with Fatigue Otalgia Left Doesn't want any more radiation, is very fatigue and feels like she's gone downhill since then LFTs: Labs ordered to investigate elevated LFTs, added to blood already given, no obvious cause, would order abd US L thyroid nodule on CT She has repeat US of thyroid gland already scheduled by ENT Dr Arielle Jenkins on upper endoscopy: discuss PPI, but patient would prefer tums Fatigue Undergoing XRT for breast cancer treatment Review of Systems ALLERGIES/INTOLERANCES Allergies Allergen Reactions Amoxicillin-Pot Clavulanate Rash Atorvastatin Muscle Aches Flagyl [Metronidazole] Metoprolol Other (See Comments) heart failure? Penicillins Zithromax [Azithromycin] OBJECTIVE Vitals: 08/20/23 1614 BP: 124/65 BP Cuff Location: Left arm BP Patient Position: Sitting BP Cuff Sizes: Adult, regular Pulse: 59 SpO2: 97% Weight: 65.3 kg (144 lb) Height: (!) 149.9 cm (59) General appearance - alert, well appearing MSK: left foot non tender to palpation, no masses or defects, normal range of motion, stable joint without laxity Dane Rick MD documented in this encounter Plan of Treatment Upcoming Encounters Date Type Department Care Team (Late st Contact Info) Description 05/19/2024 11:00 EST Office Visit [facility] Family Medicine [address], [place] [address] [place] [address] Dane Rick MD [address] [place] [phone] Scheduled Orders Name Type Priority Associated Diagnoses Orde r Schedule COMPREHENSIVE METABOLIC PANEL (CMP) Lab Routine Elevated LFTs Expected: 09/03/2023 (Approximate), Expires: 08/19/2024 VITAMIN B12 Lab Routine Elevated LFTs Ordered: 08/20/2023 Scheduled Referrals Name Type Priority Associated Diagnoses Order Schedule AMB CONS/FOLLOW UP PODIATRY Outpatient Referral Routine/Next Available Weakness of left foot Expected: 09/20/2023 (Approximate), Expires: 08/19/2024 documented as of this encounter Visit Diagnoses Diagnosis Elevated LFTs- Primary Other abnormal blood chemistry Weakness of left foot Malignant neoplasm of upper-outer quadrant of right breast in female, estrogen receptor positive (HCC-CMS) documented in this encounter Discontinued Medications Medication Sig Discontinue Reason Start Date End Da te omeprazole (PRILOSEC) 20 mg capsule Take 1 Capsule by mouth daily. 08/20/2023 08/20/2023 documented as of this encounter Historical Medications * This list may reflect changes made after this encounter. Medication Sig Dispensed Refills Start Date End Date UNABLE TO FIND Med Name: Brianda Billingsley Mushroom Tincture 11/12/2023 added in this encounter Care Teams Painter Spring Relationship Specialty Start Date End Date Dane Rick MD [address] [place] [address] [address] [place] [phone] PCP - General Family Medicine - Primary Care 08/09/22 Vicky Chamberlain LICSW Ota 06/12/22 01/22/24 Leticia Lieberman [address] [place] [phone] General Surgery 04/03/23 Mendoza Guzmán MD [address] [place] [phone] Otolaryngology 04/03/23 documented as of this encounter
--- OUTSIDE RECORDS SUMMARY | 2024-02-08 01:07 | XMS_ITS | Encounter Summary ---
Author Organization [facility] Address [address] [place] [address] Care Team Providers Care Paint Line Operator Name Role Phone Vicky Chamberlain Unavailable [phone] Dane Rick MD Primary Care Provider [phone] Leticia Lieberman Unavailable Mendoza Guzmán MD Unavailable [phone] Reason for Visit * Reason Onset Date Comments Referral Request 08/14/2023 Encounter Details Date Type Department Care Team (Late st Contact Info) Description 08/14/2023 Telephone [facility] [address], [facility] [address] [place] [address] Dane Rick MD [address] [facility] [address] [place] [address] Referral Request Social History Tobacco Use Types Packs/Day Years [...] place to sleep or slept in a usp (including now)? No 03/15/2023 Interpersonal Safety Answer [...] Telephone Encounter - Dane Rick MD - 08/15/2023 1625 EDT Labs ordered to investigate elevated LFTs, added to blood already given She has repeat US of thyroid gland already scheduled by ENT Dr Guzmán Will discuss PPI with patient at visit * Telephone Encounter - Lauren Wilde RN - 08/14/2023 1526 EDT JI: please advise. Thanks * Telephone Encounter - Radha Carmen - 08/14/2023 1403 EDT Anastasia from [facility] called to let [facility] know patient will not be continuing with Radiation due to fatigue. Her liver test was elevated yesterday. does not feel like that is due to Radiation. She's wondering if US should be ordered for Thyroid due to 3.5 cm Left Thyroid nodule. She's also wondering if Omeprazole should be prescribed for erosion seen on Upper Endoscopy. documented in this encounter Plan of Treatment Upcoming Encounters Date Type Department Care Team (Late st Contact Info) Description 05/19/2024 11:00 EST Office Visit [facility] Family Medicine - [address], [facility] [address] [place] [address] Dane Rick MD [address] [place] [address] [address] [place] [address] Pending Results Name Type Priority Associated Diagnoses Date /Time HEPATITIS A/B/C PANEL Lab Routine Elevated LFTs 08/13/2023 14:24 EDT Scheduled Orders Name Type Priority Associated Diagnoses Orde r Schedule HEPATITIS B SURFACE ANTIGEN Lab Routine Elevated LFTs Ordered: 08/15/2023 documented as of this encounter Procedures Procedure Name Priority Date/Time Associated Diagnosis Comments HEPATITIS C AB W REFLEX TO HCV RNA BY PCR Add-On 08/13/2023 14:24 EDT Elevated LFTs HEPATITIS A TOTAL ANTIBODY W REFLEX Add-On 08/13/2023 14:24 EDT Elevated LFTs HEPATITIS B CORE ANTIBODY (TOTAL) Add-On 08/13/2023 14:24 EDT Elevated LFTs IRON Add-On 08/13/2023 14:24 EDT Elevated LFTs HEMOGLOBIN A1C Add-On 08/13/2023 14:24 EDT Elevated LFTs FERRITIN Add-On 08/13/2023 14:24 EDT Elevated LFTs LIPID PROFILE (INCLUDES CHOLESTEROL, TRIGLYCERIDES, HDL, LDL) Add-On 08/13/2023 14:24 EDT Elevated LFTs documented in this encounter Results * HEPATITIS B CORE ANTIBODY (TOTAL) (08/13/2023 14:24 EDT) Hepatitis B Core Ab, Total Non-reacti ve Non-reacti ve 08/15/2023 17:48 EDT [facility] Blood VENOUS BLOOD / Unknown Venipuncture / Unknown 08/13/2023 14:24 EDT 08/13/2023 14:24 EDT Dane Rick MD CHEMISTRY & BLOOD GA S ORDERABLES Performing Organization Address City/State/[facility] Co de Phone Number [facility] [address] [place] [phone] * HEPATITIS C AB W REFLEX TO HCV RNA BY PCR (08/13/2023 14:24 EDT) Hep C Antibody Negative Negative 08/15/2023 17:47 EDT [facility] Blood VENOUS BLOOD / Unknown Venipuncture / Unknown 08/13/2023 14:24 EDT 08/13/2023 14:24 EDT Dane Rick MD CHEMISTRY & BLOOD GA S ORDERABLES Performing Organization Address [facility]/ZIP Co de Phone Number [facility] [address] [place] [address] * HEPATITIS A TOTAL ANTIBODY W REFLEX (08/13/2023 14:24 EDT) Hepatitis A Antibody, Total Negative Negative 08/15/2023 17:40 EDT [facility] Blood VENOUS BLOOD / Unknown Venipuncture / Unknown 08/13/2023 14:24 EDT 08/13/2023 14:24 EDT Narrative [facility] - 08/15/2023 17:40 EDT The result of this assay can be falsely elevated (Positive) due to the consumption of Biotin. Dane Rick MD CHEMISTRY & BLOOD GA S ORDERABLES Performing Organization Address [facility] Co de Phone Number [facility] [address] [place] [address] * (ABNORMAL) LIPID PROFILE (INCLUDES CHOLESTEROL, TRIGLYCERIDES, HDL, LDL) (08/13/2023 14:24 EDT) Cholesterol 217(H) <200 mg/dL 08/15/2023 17:47 [facility] Comment:Note that therapeuti c goals will differ between patients based on cardiac risk factors and current medical therapy. HDL 57 >=50 mg/dl 08/15/2023 17:47 [facility] Comment:Note that therapeuti c goals will differ between patients based on cardiac risk factors and current medical therapy. LDL, Calculated 127 <160 mg/dL 17:47 [facility] Comment:Note that therapeuti c goals will differ between patients based on cardiac risk factors and current medical therapy. Triglyceride 163(H) <=150 mg/dL 08/15/2023 17:47 [facility] Comment:Note that therapeuti c goals will differ between patients based on cardiac risk factors and current medical therapy. Chol/HDL Ratio 3.8 See Note 08/15/2023 17:47 [facility] Comment: NOTE: Desirable Ratio = <4.1 Patient At Risk Ratio = >5.0(Males) ?>6.0(Females) Non HDL Cholesterol 160(H) <160 mg/dL 08/15/2023 17:47 EDT [facility] Comment:Note that therapeuti c goals will differ between patients based on cardiac risk factors and current medical therapy. Blood VENOUS BLOOD / Unknown Venipuncture / Unknown 08/13/2023 14:24 EDT 08/13/2023 14:24 EDT Dane Rick MD CHEMISTRY & BLOOD GA S ORDERABLES Performing Organization Address [facility] Co de Phone Number [facility] [address] [place] [phone] * FERRITIN (08/13/2023 14:24 EDT) Ferritin 160 11 - 264 ng/mL 08/15/2023 18:27 EDT [facility] Blood VENOUS BLOOD / Unknown Venipuncture / Unknown 08/13/2023 14:24 EDT 08/13/2023 14:24 EDT Narrative [facility] - 08/15/2023 18:27 EDT The results of this assay can be falsely lowered due to the consumption of Biotin. Dane Rick MD CHEMISTRY & BLOOD GA S ORDERABLES Performing Organization Address [facility]/ZIP Co de Phone Number [facility] [address] [place] [phone] * (ABNORMAL) IRON (08/13/2023 14:24 EDT) Iron 29(L) 37 - 170 ??g/dL 08/15/2023 17:47 EDT [facility] Blood VENOUS BLOOD / Unknown Venipuncture / Unknown 08/13/2023 14:24 EDT 08/13/2023 14:24 EDT Dane Rick MD CHEMISTRY & BLOOD GA S ORDERABLES Performing Organization Address City/[facility]/ZIP Co de Phone Number [facility] [address] [place] [address] * HEMOGLOBIN A1C (08/13/2023 14:24 EDT) Hemoglobin A1c 5.2 <5.7 % 08/15/2023 21:59 EDT [facility] Comment: Glycemic Status References: Normal: ??<5.7% Pre-Diabetes: ??5.7% - 6.4% Diagnostic of Diabetes: ??> or = 6.5% (if confirmed) Est Avg Glucose 103 mg/dL 21:59 EDT [facility] Comment:The eAG represents t he A1c result expressed as average glucose in mg/dL. Blood VENOUS BLOOD / Unknown Venipuncture / Unknown 08/13/2023 14:24 EDT 08/13/2023 14:24 EDT Dane Rick MD CHEMISTRY & BLOOD GA S ORDERABLES Performing Organization Address City/[facility]/ZIP Co de Phone Number [facility] [address] [place] [address] documented in this encounter Visit Diagnoses Diagnosis Elevated LFTs- Primary Other abnormal blood chemistry documented in this encounter Care Teams Paint Line Operator Relationship Specialty Start Date End Date Dane Rick MD [address] [place] [phone] PCP - General Family Medicine - Primary Care 08/09/22 Vicky Chamberlain LICSW [employer] Sales Manager 06/12/22 01/22/24 Leticia Lieberman [address] [place] [phone] General Surgery 04/03/23 Mendoza Guzmán MD [address] [place] [phone] Otolaryngology 04/03/23 documented as of this encounter
--- OUTSIDE RECORDS SUMMARY | 2024-02-08 01:07 | XMS_ITS | Encounter Summary ---
Author Organization [facility] Address [address] [place] [address] Care Team Providers Care Breaker Boss Name Role Phone Vicky Chamberlain Unavailable [phone] Dane Rick MD Primary Care Provider [phone] Leticia Lieberman Unavailable Mendoza Guzmán MD Unavailable [phone] Reason for Visit * Reason Comments Hypertension Pt comes to ED for h ypertension after checking her blood pressure at home for feeling weak/unwell since getting up at 0700. Pt states her eyes feel different but denies visual changes. Pt endorsing temporal headache Encounter Details Date Type Department Care Team ([facility] Contact Info) Description 11/09/2023 15:34 EDT - 11/09/2023 16:59 EDT Emergency [facility] Emergency Department [address] [place] [phone] Celestino Padron MD [address] [place] [address] Depression, unspecified depression type (Primary Dx); Widened pulse pressure; Hypertension, unspecified type Discharge Disposition: Home or Self Care Social [...] Sign Reading Time Taken Comments Blood Pressure 151/57 11/09/2023 1606 EDT Pulse 66 11/09/2023 1503 EDT Temperature 37.2 ??C (98.9 ??F) 11/09/2023 1503 EDT Respiratory Rate 12 11/09/2023 1606 EDT Oxygen Saturation 99% 11/09/2023 1606 EDT Inhaled Oxygen Concentration - - Weight 64.9 kg (143 lb) 11/09/2023 1503 EDT Height 149.9 cm (4' 11) 11/09/2023 1503 EDT Body Mass Index 28.88 11/09/2023 1503 EDT documented in this encounter Functional Status [...] this encounter Discharge Instructions * Discharge Instructions* Celestino Padron MD - 11/09/2023 16:45 EDT [facility] Emergency Department Discharge Instructions Diagnosis: Elevated blood pressure. You should follow-up with your primary care provider to discussyour heart murmur and your symptoms of possible worsening depression Return Precautions: If you have significant worsening of your symptoms especially significant chest pain, difficulty breathing, new neurologic symptoms such as one-sided weakness or numbness, slurred speech, confusion, severe headache or other symptoms that are particularly concerning to you please return to the emergency room for reevaluation. documented in this encounter Medications at Time [...] Tablet by mouth daily at 1200. 01/29/2024 UNABLE TO FIND Med Name: Brianda Stovall 11/12/2023 documented as of this encounter Discharge Disposition Disposition Code Departure Means Destination Comment s Home or Self Retirement documented in this encounter ED Notes * Celestino Padron MD - 11/09/2023 0520 EDT Emergency Department Visit Medical Decision Making EKG (independent interpretation): Sinus bradycardia, normal axis, normal intervals. There is some slight downsloping ST depression somewhat diffusely. Medical Decision Making 82-year-old female with breast cancer status post radiation, chronic left leg pain and weakness among multiple other medical comorbidities who presents for evaluation of predominantly high blood pressure. Here in the emergency department she is awake and alert. She does have an elevated systolic blood pressure with a wide pulse pressure. Has an ejection type murmur concerning for aortic stenosis. Mostrecent TTE was 2 and half years ago which showed mild stenosis. She has no neurologic deficits. No significant ongoing headache. Suspicion for intracranial hemorrhage, hypertensive emergency, press, etc. is very low and I do not think further evaluation for this is necessary. Does not report any chest pain or difficulty breathing I do think emergent lowering of her blood pressure is indicated. She reports significant concern over elevated liver function tests after she had radiation therapy a month or 2 ago. Given symptoms I think is reasonable to check labs and evaluate for any electrolyte derangement, anemia, profound LFT derangements or renal dysfunction. If lab work reassuring and EKG reassuring anticipate discharge to follow-up as an outpatient with PCP. I think it may be worth considering a repeat TTE given her symptoms which could be explained by worsening aortic stenosis. I also think that she continues to experience signs of significant depression and apathy. No reported suicidal or homicidal ideation to warrant emergent psychiatric evaluation but I think this shouldbe discussed with her PCP further Problems Addressed: Depression, unspecified depression type: acute illness or injury Hypertension, unspecified type: acute illness or injury Widened pulse pressure: acute illness or injury Final diagnoses: Depression, unspecified depression type Widened pulse pressure Hypertension, unspecified type Disposition: Discharged Chief complaint: high BP, feeling unwell, headache HPI Kenyatta Lopez is a 82 y.o. female with history of coronary disease, hypertension, hyperlipidemia, CHF, breast cancer status post radiation therapy, depression, chronic left leg pain, prior CVAwho presents to the ED for a variety of complaints. She states that this morning she had some pressure in her head. Denies pain. No vision changes. Says that she felt slightly off balance this morning but this was not a new problem that she struggles with this regularly due to chronic left leg pain and weakness. She took her blood pressure and noted that it was elevated. Checked it repeatedly throughout the day and felt that it was decreasing but then it went back up again and this caused him concern. They called her primary care office and were told to come to the emergency department. Of note, she notes about a couple of months of significant, fatigue. Says that she would not care if she were to . Does state that she felt slightly lightheaded and dizzy this morning. Denies any chest pain or difficulty breathing. Some nausea over the last couple of weeks which is unusual for her. Yesterday she had some worsening pain in her left leg but this is improved today. Most recent TTE in our system is from March 2021 where aortic valve was noted to have mild stenosis. Patient's pertinent PMH, FH, SH were reviewed and edited as necessary. Nursing notes reviewed. A medical screening exam was performed. Physical Exam BP (!) 151/57 Pulse 66 Temp 37.2 ??C (98.9 ??F) (Oral) Resp 12 Ht (!) 149.9 cm (59) Wt 64.9 kg (143 lb) SpO2 99% BMI 28.88 kg/m?? Physical Exam Vitals and nursing note reviewed. Constitutional: General: She is not in acute distress. Appearance: She is well-developed. HENT: Head: Normocephalic and atraumatic. Neck: Trachea: No tracheal deviation. Cardiovascular: Rate and Rhythm: Normal rate. Comments: Systolic ejection type murmur 4 out of 6 Pulmonary: Effort: Pulmonary effort is normal. No respiratory distress. Abdominal: General: There is no distension. Musculoskeletal: General: Normal range of motion. Cervical back: Normal range of motion. Skin: General: Skin is warm and dry. Findings: No rash. Neurological: Mental Status: She is alert and oriented to person, place, and time. Motor: No abnormal muscle tone. Procedures Procedures documented in this encounter Plan of Treatment Upcoming Encounters Date Type Department Care Team (Late st Contact Info) Description 05/19/2024 11:00 EST Office Visit [facility] [address] [facility] [place] [address] [place], [place] [phone] Dane Rick MD [address] [facility] [address] [place] [address] documented as of this encounter Procedures Procedure Name Priority Date/Time Associated Diagnosis Comments ECG REPORT - SCANNED 11/09/2023 23:14 EDT HOLD GREEN TOP Routine 11/09/2023 16:07 EDT COMPLETE BLOOD COUNT AND DIFFERENTIAL STAT 11/09/2023 16:07 EDT COMPREHENSIVE METABOLIC PANEL (CMP) STAT 11/09/2023 16:07 EDT EKG 12-LEAD STAT 11/09/2023 16:01 EDT documented in this encounter Results * ECG REPORT - SCANNED (11/09/2023 23:14 EDT) 11/09/2023 23:1 4 EDT Scan 2 Bit Shaver PROCEDURE/MINOR PRINCESS GICAL ORDERABLES * HOLD GREEN TOP (11/09/2023 16:07 EDT) Hold Hold 11/09/2023 17:15 EDT [facility] Blood VENOUS BLOOD / Unknown Venipuncture / Unknown 11/09/2023 16:07 EDT 11/09/2023 16:09 EDT Celestino Padron MD LAB INFO SERVICE AND SUPPORT & PHONE RESULT [facility] [address] [place] [address] * (ABNORMAL) COMPREHENSIVE METABOLIC PANEL (CMP) (11/09/2023 16:07 EDT) Sodium 135(L) 136 - 145 mmol/L 11/09/2023 16:26 [facility] Potassium 4.1 3.5 - 5.0 mmol/L 11/09/2023 16:26 [facility] Chloride 101 96 - 110 mmol/L 11/09/2023 16:26 [facility] CO2 Total 27 22 - 32 mmol/L 11/09/2023 16:26 [facility] Glucose 117(H) 70 - 99 mg/dl 11/09/2023 16:26 [facility] BUN 19 10 - 26 mg/dL 11/09/2023 16:26 [facility] Creatinine 0.67 0.52 - 1.04 mg/dL 11/09/2023 16:26 [facility] eGFR 88 >60 mL/min/1.7 3m2 11/09/2023 16:26 [facility] Total Protein 6.9 6.3 - 8.2 g/dL 11/09/2023 16:26 [facility] Albumin 4.1 3.4 - 4.9 g/dL 11/09/2023 16:26 [facility] Alkaline Phosphatase 113 38 - 126 U/L 11/09/2023 16:26 [facility] AST 23 15 - 46 U/L 11/09/2023 16:26 [facility] ALT 13 <35 U/L 11/09/2023 16:26 [facility] Bilirubin, Total 0.8 <1.4 mg/dL 11/09/19 16:26 [facility] Calcium 11.1(H) 8.5 - 10.5 mg/dL 11/09/2023 16:26 [facility] Albumin/Globulin Ratio 1.5 1.0 - 2.5 11/09/2023 16:26 [facility] Anion Gap 7 5 - 14 mmol/L 11/09/2023 16:26 [facility] Blood VENOUS BLOOD / Unknown Venipuncture / Unknown 11/09/2023 16:07 EDT 11/09/2023 16:09 EDT Celestino Padron MD CHEMISTRY & BLOOD GA S ORDERABLES [facility] [address] [place] [address] * (ABNORMAL) COMPLETE BLOOD COUNT AND DIFFERENTIAL (11/09/2023 16:07 EDT) WBC 9.16 4.00 - 12.40 K/cmm 11/09/2023 16:12 [facility] RBC 4.37 3.86 - 5.04 M/cmm 11/09/2023 16:12 [facility] Hemoglobin 12.5 11.6 - 15.2 g/dL 11/09/2023 16:12 [facility] HCT 37.7 34.9 - 44.4 % 11/09/2023 16:12 [facility] MCV 86 81 - 98 fL 11/09/2023 16:12 [facility] MCH 28.6 26.7 - 33.3 pg 11/09/2023 16:12 [facility] MCHC 33.2 32.1 - 35.9 g/dL 11/09/2023 16:12 [facility] RDW-CV 12.9 <14.7 % 11/09/2023 16:12 [facility] RDW-SD 41.1 <50.4 fl 11/09/2023 16:12 [facility] PLT 260 141 - 377 K/cmm 11/09/2023 16:12 [facility] MPV 9.3(L) 9.5 - 12.7 fL 11/09/2023 16:12 [facility] % Neutrophils 80.0 % 11/09/2023 16:12 [facility] % Lymphocytes 12.7 % 11/09/2023 16:12 [facility] % Monocytes 5.8 % 11/09/2023 16:12 [facility] % Eosinophils 0.4 % 11/09/2023 16:12 [facility] % Basophils 0.8 % 11/09/2023 16:12 [facility] % Immature Grans 0.3 <0.9 % 11/09/19 16:12 [facility] Absolute Neutrophils 7.33 2.20 - 8.85 K/cmm 11/09/2023 16:12 [facility] Absolute Lymphocytes 1.16 1.09 - 3.30 K/cmm 11/09/2023 16:12 [facility] Absolute Monocytes 0.53 0.10 - 0.80 K/cmm 11/09/2023 16:12 [facility] Absolute Eosinophils 0.04 0.03 - 0.61 K/cmm 11/09/2023 16:12 [facility] ABS Basophils 0.07 0.01 - 0.11 K/cmm 11/09/2023 16:12 [facility] Absolute Immature Grans 0.03 0.00 - 0.06 K/cmm 11/09/2023 16:12 [facility] Type of Differential: Auto 11/09/2023 16:12 [facility] Blood VENOUS BLOOD / Unknown Venipuncture / Unknown 11/09/2023 16:07 EDT 11/09/2023 16:09 EDT Celestino Padron MD PACKAGES & DNA PROBE ORDERABLES [facility] [address] [place] [address] * EKG 12-LEAD (11/09/2023 16:01 EDT) 11/09/2023 16:0 1 EDT Narrative [facility] - 11/09/2023 23:04 EDT ? [facility] ? Test Date: ?2023-11-09 Pat Name: ? KENYATTA LOPEZ ? Department: ? Room: ? A07 Gender: ? Female ? Special Certificate Dictator: ?? TC : ?1940 ? Requested By: JAC Connor Order Number: [id number] ? Corinna MARCIAL: ?? MARCIE GONSALEZ MD ? Measurements Intervals ?Ashley ? Rate: ? 55 ? P: ?83 [place]: ? 196 ?QRS: ?-20 QRSD: ? 78 ? T: ?35 QT: ? 414 ? QTc: ?396 ? Interpretive Statements Sinus bradycardia Nonspecific ST abnormality Compared to ECG 08/13/2023 14:46:08 ST (T wave) deviation now present Sinus rhythm no longer present I reviewed the tracing and have either agreed or edited the findings in this report. Electronically Signed On 11-09-2023 23:04:45 EDT by MARCIE GONSALEZ MD. Procedure Note Marcie Gonsalez MD - 11/09/2023 [facility] Test Date: 2023-11-09 Pat Name: KENYATTA LOPEZ Department: Room: A07 Gender: Female Special Certificate Dictator: TC : 1940 Requested By: JAC Connor Order Number: [id number] Reading MD: MARCIE GONSALEZ MD Measurements Intervals Ashley Rate: 55 P: 83 [place]: 196 QRS: -20 QRSD: 78 T: 35 [...] ECG ORDERABL ES [facility] documented in this encounter Visit Diagnoses Diagnosis Depression, unspecified depression type- Primary Widened pulse pressure Other symptoms involving cardiovascular system Hypertension, unspecified type documented in this encounter Care Teams Breaker Boss Relationship Specialty Start Date End Date Dane Rick MD [address] [place] [address] [address] [place] [phone] PCP - General Family Medicine - Primary Care 08/09/22 Vicky Chamberlain [facility] Sr Vice President 06/12/22 01/22/24 Leticia Lieberman [address] [place] [phone] General Surgery 04/03/23 Mendoza Guzmán MD [address] [place] [address] [address] [place] [phone] Otolaryngology 04/03/23 documented as of this encounter
--- OUTSIDE RECORDS SUMMARY | 2024-02-08 01:07 | XMS_ITS | Encounter Summary ---
Author Organization [facility] Address [address] [place] [address] Care Team Providers Care Mobile Patrol Officer Name Role Phone Vicky Chamberlain Unavailable [phone] Dane Rick MD Primary Care Provider [phone] Leticia Lieberman Unavailable Mendoza Guzmán MD Unavailable [phone] Encounter Details Date Type Department Care Team (Late st Contact Info) Description 10/18/2023 Patient Outreach [facility] Family Medicine - [facility] [address] [place] [address] Vicky Chamberlain LICSW [address] [address] Social History Tobacco Use Types [...] Progress Notes * Vicky Chamberlain, LATRICE - 10/18/2023 1222 EDT [facility] Integrated Care Management Follow Up Lasting Floorworker followed up with Kenyatta by phone for oncology support. TOPIC OF CONVERSATION: Reviewed assessment and plan from previous visit with patient. Engaged patient in conversation related to positive behavior change, self- management, goal setting and action planning using motivational interviewing and active listening. Medication reviewed: Explained that Kenyatta should verify who is the prescriber of the medications that she is prescribed, by looking at the bottle. Health Related Social Needs reviewed: See below Gaps in community resources: No new needs identified Education provided on condition and/or disease: yes Kenyatta discusses that she is feeling on going frustration with with her medical care. States that she would prefer to stay with Dr. Rick only. States that she has chosen to stop radiation. Does have questions about medications and contraindications RADHA reccommended that she reach out to her [facility] Oncology providers for these concerns CM suggested that she have another person on the phone with her to clarify any questions Kenyatta explains that her daughter, Adriana comes with her to all her appointments. Kenyatta has questions about prognosis and status of her cancer diagnosis. CM offered to call Dr Stauffer's office to connect Kenyatta with a SW Lasting Floorworker. - Kenyatta declined, would like to do this on her own, then as we were hanging up mentioned that it might be nice if the connection was made. RADHA reached out to CAROL ANN Villalta who will reach out to Kenyatta to offer social work supports form the Oncology office. Prioritized Patient Identified Goals: Kenyatta will continue to advocate and follow up, with support, for her medical care as appropriate. Achievement towards goals: In progress 2. Kenyatta will reach out to Oncology office to ask questions about Liver labs, bloodwork for cancer status. RADHA will follow up in one month on her advancement of this call. RADHA recommended that she find a clinical social worker or other medical support provider for her ongoing questions. Achievement towards goals: In progress Plan: Next Lasting FloorworkerAssociate Professor Of Physics: 11/08/2023 LATRICE ENCISO 10/18/2023 12:30 documented in this encounter Plan of Treatment Upcoming Encounters Date Type Department Care Team (Late st Contact Info) Description 05/19/2024 11:00 EST Office Visit [facility] [address], [address] [place] [address] Dane Rick MD [address] [place] [address] [address] [place] [address] documented as of this encounter Visit Diagnoses Not on filedocumented in this encounter Care Teams Mobile Patrol Officer Relationship Specialty Start Date End Date Dane Rick MD [address] [place] [address] 2 [place] [phone] PCP - General Family Medicine - Primary Care 08/09/22 Vicky Chamberlain [facility] Lasting Floorworker 06/12/22 01/22/24 Leticia Lieberman [address] [place] [phone] General Surgery 04/03/23 Mendoza Guzmán MD [address] [place] [address] [address] [place] [address] Otolaryngology 04/03/23 documented as of this encounter
--- OUTSIDE RECORDS SUMMARY | 2024-02-08 01:07 | XMS_ITS | Encounter Summary ---
Author Organization [facility] Address [address] [place] [address] Care Team Providers Care Python Developer Name Role Phone Vicky Chamberlain Unavailable [phone] Dane Rick MD Primary Care Provider [phone] Leticia Lieberman Unavailable Mendoza Guzmán MD Unavailable [phone] Reason for Visit * Reason Comments Medications Refill Encounter Details Date Type Department Care Team (Late st Contact Info) Description 08/12/2023 Refill [facility] Family Medicine [address], [facility] 2 [place] [address] Dane Rick MD [address] [facility] [address] [place] [address] Medications Refill Social History Tobacco Use Types Packs/Day Years [...] Dispensed Refills Start Date End Da te losartan (COZAAR) 100 mg tablet TAKE 1 TABLET BY MOUTH EVERY DAY 90 Tablet 3 08/14/2023 documented in this encounter Miscellaneous Notes * Telephone Encounter - Sarika Anne, RN - 08/14/2023 0948 EDT Medication Refill Request Med & dose: losartan 100 mg Sig Verified: 1 tab QD Pharm verified: [facility] Last visit: 04/03/23 Next visit: none - pt canceled 07/02/23 appt d/t no transportation; [facility] has been trying to help her coordinate last BMP - 08/13/23 Rx(s) escribed to pharmacy. documented in this encounter Plan of Treatment Upcoming Encounters Date Type Department Care Team (Late st Contact Info) Description 05/19/2024 11:00 EST Office Visit [facility] Family Medicine [address], [address] [address] Dane Rick MD [address] [place] [phone] documented as of this encounter Visit Diagnoses Not on filedocumented in this encounter Discontinued Medications Medication Sig Discontinue Reason Start Date End Da te losartan (COZAAR) 100 mg tablet Take 1 Tablet by mouth daily. 12/26/2022 08/14/2023 documented as of this encounter Additional Health Concerns Infection Onset Date Last Indicated Resolved Time R/O COVID-19 08/13/2023 08/13/2023 08/13/2023 20:0 7 EDT documented as of this encounter Care Teams Python Developer Relationship Specialty Start Date End Date Dane Rick MD [address] [place] [phone] PCP - General Family Medicine - Primary Care 08/09/22 Vicky Chamberlain LICSW Supervisor Boarding 06/12/22 01/22/24 Leticia Lieberman [address] [place] [phone] General Surgery 04/03/23 Mendoza Guzmán MD [address] [place] [phone] Otolaryngology 04/03/23 documented as of this encounter
--- OUTSIDE RECORDS SUMMARY | 2024-02-08 01:07 | XMS_ITS | Encounter Summary ---
Author Organization [facility] Address [address] [place] [address] Care Team Providers Care Visual Merchandising Specialist Name Role Phone Vicky Chamberlain Unavailable [phone] Dane Rick MD Primary Care Provider [phone] Leticia Lieberman Unavailable Mendoza Guzmán MD Unavailable [phone] Reason for Visit * Reason Onset Date Comments Update 11/14/2023 Encounter Details Date Type Department Care Team (Late st Contact Info) Description 11/14/2023 Telephone [facility] - [facility] Family Medicine [facility] [address] , [facility] 2 [place] [address] Lauren Wilde RN Update Social History Tobacco Use Types Packs/Day Years [...] Telephone Encounter - Lauren Wilde RN - 11/14/2023 9759 EDT Touched base johnathan POLLARD. documented in this encounter Plan of Treatment Upcoming Encounters Date Type Department Care Team (Late st Contact Info) Description 05/19/2024 11:00 EST Office Visit [facility] Family Medicine [address], [address] [place] [address] Dane Rick MD [address] [place] [address] [address] [place] [address] documented as of this encounter Visit Diagnoses Not on filedocumented in this encounter Care Teams Visual Merchandising Specialist Relationship Specialty Start Date End Date Dane Rick MD [address] [place] [address] 2 [place] [phone] PCP - General Family Medicine - Primary Care 08/09/22 Vicky Chamberlain LICSW Audit Reviewer 06/12/22 01/22/24 Leticia Lieberman [address] [place] [phone] General Surgery 04/03/23 Mendoza Guzmán MD [address] [place] [address] [address] [place] [address] Otolaryngology 04/03/23 documented as of this encounter
--- OUTSIDE RECORDS SUMMARY | 2024-02-08 01:07 | XMS_ITS | Encounter Summary ---
Author Organization [facility] Address [address] [place] [address] Care Team Providers Care Finishing Manager Name Role Phone Vicky Chamberlain Unavailable [phone] Dane Rick MD Primary Care Provider [phone] Leticia Lieberman Unavailable Mendoza Guzmán MD Unavailable [phone] Encounter Details Date Type Department Care Team (Latest Contact Info) Description 08/13/2023 Travel Social History Tobacco Use Types Packs/Day [...] Description 05/19/2024 11:00 EST Office Visit [facility] Family Medicine [address], [address] [place] [address] Dane Rick MD [address] [facility] [address] [place] [address] documented as of this encounter Visit Diagnoses Not on filedocumented in this encounter Additional Health Concerns Infection Onset Date Last Indicated Resolved Time R/O COVID-19 08/13/2023 08/13/2023 08/13/2023 20:0 7 EDT documented as of this encounter Care Teams Finishing Manager Relationship Specialty Start Date End Date Dane Rick MD [address] [place] [address] [address] [place] [phone] PCP - General Family Medicine - Primary Care 08/09/22 Vicky Chamberlain, [facility] Seat Installer 06/12/22 01/22/24 Leticia Lieberman [address] [place] [phone] General Surgery 04/03/23 Mendoza Guzmán MD [address] [place] [address] [address] [place] [phone] Otolaryngology 04/03/23 documented as of this encounter
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
--- OUTSIDE RECORDS SUMMARY | 2024-02-08 01:08 | XMS_ITS | Encounter Summary ---
Author Organization [facility] Address [address] [place] [address] Care Team Providers Care Belly Roller Name Role Phone Vicky Chamberlain Unavailable [phone] Dane Rick MD Primary Care Provider [phone] Leticia Lieberman Unavailable Mendoza Guzmán MD Unavailable [phone] Reason for Visit * Reason Comments Pre-op Exam Encounter Details Date Type Department Care Team (Late st Contact Info) Description 04/03/2023 10:15 EST Office Visit [facility] Family Medicine [facility] [address] [facility], [address] [place] [address] Ralf Mattson MD [address] [facility] [address] [place] [address] Malignant neoplasm of upper-outer quadrant of right breast in female, estrogen receptor positive (HCC-CMS) (Primary Dx); Pre-op evaluation; Impacted cerumen of right ear; Essential (primary) hypertension; Arteriosclerotic cardiovascular disease; Hypercalcemia; Nontoxic multinodular goiter Social History Tobacco Use Types Packs/Day Years [...] Sign Reading Time Taken Comments Blood Pressure 144/78 04/03/2023 1058 EST rechec k Pulse 51 04/03/2023 0957 EST Temperature - - Respiratory Rate 14 04/03/2023 0957 EST Oxygen Saturation 99% 04/03/2023 0957 EST Inhaled Oxygen Concentration - - Weight 64.9 kg (143 lb) 04/03/2023 0957 EST Height 149.9 cm (4' 11) 04/03/2023 0957 EST Body Mass Index 28.88 04/03/2023 0957 EST documented in this encounter Functional Status Functional [...] Dispensed Refills Start Date End Da te furosemide (LASIX) 20 mg tablet Take 1 Tablet by mouth daily. 90 Tablet 04/03/2023 documented in this encounter Progress Notes * Ralf Mattson MD - 04/03/2023 1015 EST Preoperative H&P Patient ID: Kenyatta Vizcaino is an 82 y.o. female. :1940 Date of Service: 04/03/2023 Chief Complaint: Chief Complaint Patient presents with Pre-op Exam Planned Procedure: Right breast-partial mastectomy Surgeon: DR Lieberman-[facility] Planned Procedure Date: 04/16/2023 Problem List Available or Initiated: yes Subjective: HISTORY OF PRESENT ILLNESS: Reason for visit-preop evaluation for right partial mastectomy 82-year-old who still living at home and independent who is accompanied by her daughter. Patient was diagnosed with right breast cancer and follow-up 2022. She has been evaluated at [facility] and then at [facility] breast center. She is scheduled for partial right breast mastectomy on 04/16/2022 at [facility]. She has also been seen also by oncology and radiation oncology. Plan at this point is also adjunct treatment with of radiation therapy and further plans per oncology following treatment and further evaluation Overall patient remains fairly active, still performing usual activities of daily life without difficulty. She has no difficulty with performing modest levels of activity including walking and going up stairs. She does have a remote history of coronary artery disease. In 2012 she was diagnosed with coronary artery disease and had a drug-eluting stent placed to a lesion in the LAD at [facility]. She was treated medically since then and has done well. No recurrent episodes of angina problems noted. Echogram from 2020 at [facility] showed normal cardiac function. No obvious interval change She continues on aspirin and antihypertensive medications. She had been on a statin including atorvastatin. However she had discontinued this in the last year. She has not had any regular cardiology follow-up for some time. Blood pressure controlled has been somewhat labile but generally tends to run in the borderline mildly elevated. She has not had a difficulty with losartan. Review of systems is significant for occasional very short-lived palpitations but not sustained. Norecent chest pain or respiratory complaints noted During ER evaluation about 3 months ago she did have an EKG that was unremarkable-with normal sinusrhythm, no acute changes Other issues include a multinodular thyroid. There was increase in size of recent nodule but she had a benign thyroid nodule FNA at [facility] in 01/2023. Review of chart also shows mild persistent hyperkalemia that is been present at least since 2019. Parathyroid hormone earlier in the year was elevated. Presumably this is due to hyperparathyroidism. She has not had any evaluation or treatment although this has been stable. No overt symptoms or problems related to this Usual 10 point review of systems unremarkable for any acute changes She has no significant perioperative or anesthesia related complications. Social -she lives in [place]-she has her r own apartment but does have family members-including a daughter who will be available to provide care after surgery Non-smoker, rare alcohol use Cardiovascular or pulmonary risk factors: known cardiac disease and hypertension Prior h/o of anesthetic complications: no Prior h/o bleeding problems: no Prior h/o DVT/PE: no Prior h/o infections (VRE, MRSA): no Reaction to tape or latex: no Family history of anesthetic complications, bleeding problems or DVT/PE: no. 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 (HCC-CMS) Hypercalcemia Left shoulder pain Chronic pain of left knee Malignant neoplasm of upper-outer quadrant of right breast in female, estrogen receptor positive (HCC-CMS) Invasive ductal carcinoma of right breast (HCC-CMS) Thickened endometrium TMJ derangement Past Medical History: Diagnosis Date Abnormal stress [...] lower lids ROTATOR CUFF REPAIR Right 01/14/2019 Social History Tobacco Use Smoking status: Never Smokeless tobacco: Never Substance Use Topics Alcohol use: Yes Comment: occasionally Drug use: No Family History Problem Relation Age of Onset Heart Disease Father High Blood Pressure Father Early Paternal Aunt Diabetes Paternal Aunt Diabetes Paternal Uncle Early Son Allergies Allergen Reactions Amoxicillin-Pot Clavulanate Rash Atorvastatin Muscle Aches Flagyl [Metronidazole] Metoprolol Other (See Comments) heart failure? Penicillins Zithromax [Azithromycin] Current Outpatient Medications Medication Sig Dispense Refill aspirin 81 mg EC tablet Take 1 Tablet by mouth every 48 hours. ergocalciferol, vitamin D2, (VITAMIN D ORAL) Take 1 Tablet by mouth daily at 1200. furosemide (LASIX) 20 mg tablet Take 1 Tablet by mouth daily. 90 Tablet 0 hydrOXYzine (ATARAX) 25 mg tablet Take 1 Tablet by mouth 3 times daily as needed for Itching. (Patient not taking: Reported on 03/08/2023) 60 Tablet 0 losartan (COZAAR) 100 mg tablet Take 1 Tablet by mouth daily. 90 Tablet 1 MAGNESIUM GLUCONATE ORAL Take 1 Tablet by mouth daily at 1200. No current facility-administered medications for this visit. ROS Objective: BP (!) 144/78 Comment: recheck Pulse 51 Resp 14 Ht (!) 149.9 cm (59) Wt 64.9 kg (143 lb) SpO2 99% BMI 28.88 kg/m?? Body mass index is 28.88 kg/m??. Physical Exam General-alert, lucid, no distress Ears-right TM occluded with cerumen otherwise no acute abnormality noted Left ear-clear, within normal limits Eyes-pupils equal reactive light, conjunctiva clear Mouth/throat-no acute erythema or exudate, within normal limits Neck-no lymphadenopathy, no thyromegaly, 2+ carotids, no bruit Chest-clear to auscultation, good air movement Cardiovascular-regular rate and rhythm, 2/6 systolic murmur loudest at right upper sternal border (old per patient) Abdomen-positive bowel sounds, soft, nontender palpation, no organomegaly Upper extremities-normal pulses, no edema Lower extremities-normal pulses, no edema EKG: N/A-patient with unremarkable EKG at [facility] December/2022 which was reviewed Assessment: 1. Malignant neoplasm of upper-outer quadrant of right breast in female, estrogen receptor positive(HCC-CMS) 2. Pre-op evaluation 3. Impacted cerumen of right ear 4. Essential (primary) hypertension 5. Arteriosclerotic cardiovascular disease 6. Hypercalcemia 7. Nontoxic multinodular goiter No contraindications to planned surgery Problem #1. Preop evaluation-partial right mastectomy in an 82-year-old with a number of medical problems but appears to be clinically stable at this point. There are no acute issues noted today by history or exam that I think should preclude her from surgery as scheduled. She does have a history of coronary artery disease but this has been stable with overall good activity level for age currently. No interval changes noted, and this appears quiet at this time Other medical problems likewise appear to be stable. I think she likely is at optimal status for surgery. I did suggest recheck of routine labs to document that there is not been any interval change regarding metabolic panel and a CBC. It was noted that she does have persistent moderate hypercalcemia but this looks stable and does not appear to have been changed. Will recheck this likewise with current labs . This appears suggestive of hyperparathyroidism. There is no obvious indication to suggest that this may be associated withher breast cancer which appears localized This likely will need evaluation following surgery with endocrine. Her revised cardiac risk index-cardiac risk at 1%. Plan. 1. Recheck CBC and metabolic panel 2. Otherwise, surgery as scheduled, no further preop evaluation suggested from primary care Problem #2. Cardiac/hypertension -no acute issues noted now. She continues on losartan for hypertension management. Blood pressure appears somewhat labile but overall under reasonable control. In addition, she continues on low-dose Lasix along with aspirin. No changes suggested prior to surgery Suggest outpatient follow-up with her PCP following surgery as planned Plan. 1. Continue current management 2. Follow-up as needed otherwise follow-up as planned in spring 2023 with PCP Problem #3. Persistent hypercalcemia. Suspect hyperparathyroidism. This appears to be stable and otherwise asymptomatic. I think is unrelated to her breast cancer which is localized.. She may benefitfrom seeing an residential gas heat technician regarding ongoing management following surgery Plan. 1. Will review with PCP, consider endocrine evaluation Plan: Patient requires endocarditis prophylaxis (see guideline summary below): no. Perioperative beta-bina recommendation (see guideline summary below): no - betablocker not indicated. GENERAL PREOP INSTRUCTIONS: Proceed with surgery as planned. Ralf Mattson MD 04/03/2023 13:13 If is billing provider, the TOOLING SPECIALIST or PA must attest: I was directly supervised by who was present in the office suite and was immediately available. SUMMARY OF GUIDELINES: Endocarditis prophylaxis indications: Antibiotics are indicated for prosthetic heart materials (notroutine MVP), uncorrected congenital heart anomalies, history of endocarditis; and only for surgeries of mouth, respiratory tract, or infected tissue. Options for a one-time oral dose of antibiotic taken 30 - 60 minutes prior to the procedure include amoxicillin 2 grams, clindamycin 600 mg, or azithromycin 500 mg. Guideline Title: Prevention of Infective Endocarditis Guidelines From the [place] Heart Association: A Guideline From the [place] Heart Association Rheumatic Fever, Endocarditis, and Kawasaki Disease Committee, [place] on Cardiovascular Disease in the [place], and the [place] on Clinical Cardiology, [place] on Cardiovascular Surgery and Anesthesia, and the Quality of Care and Outcomes Research Interdisciplinary Working Group. Please see Circulation. 2007;116:2463-0971 for the detailed indications. Jeana-operative betablocker (BB) indications: For patients already on BB for angina, arrhythmia, or HTN continue the BB (Class I). For patients not on BB, consider adding 1 week prior to surgery for vascular surgery in patients with CAD or multiple risk factors; or CHD or multiple risk factors undergoing intermediate - to high-risk procedures (Class IIa). Consider continuing the BB 2-4 weeks post-operatively. Otherwise, starting a perioperative betablocker may be harmful. Guideline Title: 2009 ACCF/AHA focused update on perioperative beta blockade incorporated into the ACC/AHA 2007 guidelines on perioperative cardiovascular evaluation and care for noncardiac surgery. A report of the [place] College of Cardiology Foundation/[place] Heart Association Task Force on Practice Guidelines. Please see J Am Cole Cardiol. 2009; Feb 23;54(22):k63-u718 for the detailed indications. * Karla Mcrae MA - 04/03/2023 1015 ESTAssociated Order(s): Ear Cerumen Removal Ear Cerumen Removal Date/Time: 04/03/2023 16:52 Performed by: CHANO DELACRUZ.Consent: Verbal consent obtained. Consent given by: patient Local anesthetic: none Location details: right ear Procedure Type: irrigation Patient Sedated: patient not sedated Patient tolerance: patient tolerated the procedure well with no immediate complications Cerumen removed successfully. documented in this encounter Plan of Treatment Upcoming Encounters Date Type Department Care Team (Late st Contact Info) Description 05/19/2024 11:00 EST Office Visit [facility] Family Medicine [address], [place] [address] [place] [id number] Dane Rick MD [address] [place] [address] [place] [phone] Scheduled Orders Name Type Priority Associated Diagnoses Orde r Schedule PTH INTACT Lab Routine Hypercalcemia Expected: 04/03/2023 (Approximate), Expires: 04/03/2024 documented as of this encounter Procedures Procedure Name Priority Date/Time Associated Diagnosis Comments EAR CERUMEN REMOVAL Routine 04/03/2023 1 6:52 EST Impacted cerumen of right ear EAR CERUMEN REMOVAL Routine 04/03/2023 1 6:52 EST Impacted cerumen of right ear documented in this encounter Results * SD REMOVAL IMPACTED CERUMEN IRRIGATION/LVG UNILAT, HC - REMOVAL IMPACTED CERUMEN IRRIGATION/LVG UNILAT (04/03/2023 16:52 EST) Narrative [facility] POINT OF CARE - 04/03/2023 16:52 EST Karla Mcrae MA ? 04/04/2023 20:06 Ear Cerumen Removal Date/Time: 04/03/2023 16:52 Performed by: CHANO DELACRUZ.Consent: Verbal consent obtained. Consent given by: patient Local anesthetic: none Location details: right ear Procedure Type: irrigation Patient Sedated: patient not sedated Patient tolerance: patient tolerated the procedure well with no immediate complications Ralf Mattson MD PROCEDURE/HAN R SURGICAL ORDERABLES [facility] POINT OF [facility] documented in this encounter Visit Diagnoses Diagnosis Malignant neoplasm of upper-outer quadrant of right breast in female, estrogen receptor positive (HCC-CMS)- Primary Pre-op evaluation Preoperative examination, unspecified Impacted cerumen of right ear Impacted cerumen Essential (primary) hypertension Unspecified essential hypertension Arteriosclerotic cardiovascular disease Unspecified cardiovascular disease Hypercalcemia Nontoxic multinodular goiter documented in this encounter Discontinued Medications Medication Sig Discontinue Reason Start Date End Da te furosemide (LASIX) 20 mg tablet TAKE 2 TABLETS BY MOUTH ONCE DAILY IN THE MORNING AND 1 IN THE AFTERNOON Reorder 09/19/2022 04/03/2023 doxycycline (VIBRA-TABS) 100 mg tablet 12/25/2022 04/03/2023 documented as of this encounter Care Teams Belly Roller Relationship Specialty Start Date End Date Dane Rick MD [address] [place] [phone] PCP - General Family Medicine - Primary Care 08/09/22 Vicky Chamberlain LICSW Keller Machine Operator 06/12/22 01/22/24 Leticia Lieberman [address] [place] [phone] General Surgery 04/03/23 Mendoza Guzmán MD [address] [place] [phone] Otolaryngology 04/03/23 documented as of this encounter
--- OUTSIDE RECORDS SUMMARY | 2024-02-08 01:08 | XMS_ITS | Encounter Summary ---
Author Organization [facility] Address [address] [place] [address] Care Team Providers Care Hydrogen Cell Tender Name Role Phone Vicky ChamberlainSW Unavailable [phone] Dane Rick MD Primary Care Provider [phone] Reason for Referral * Consult (48 Hrs (Urgent)) - Specialty Report Received Specialty Diagnoses / Procedures [facility] Referred To Contact General Surgery Diagnoses Malignant neoplasm of upper-outer quadrant of right breast in female, estrogen receptor positive (HCC-CMS) Xu Hendrix MD [address] [facility] [place] [address] [facility] [address] [place] [id number] Referral ID Status Reason Start Date Expiration Date Visits Requested Visits Authorized [id number] Specialty Report Received Specialty Services Required 3 1 1 Question Answer Reason for Request: New diagnosis of breast cancer evaluate for surgery * Radiology Services (Routine/Next Available) - Authorization Not Required Specialty Diagnoses / Procedures [facility] Referred To Contact Nuclear Medicine Diagnoses Malignant neoplasm of upper-outer quadrant of right breast in female, estrogen receptor positive (HCC-CMS) Procedures NM BONE WHOLE BODY Xu Hendrix MD [address] [facility] [place] [address] [facility] Referral ID Status Reason Start Date Expiration Date Visits Requested Visits Authorized [id number] Authorization Not Required 3 1 1 * Radiology Services (Routine/Next Available) - Authorization Not Required Specialty Diagnoses / Procedures Referred By Contac t Referred To Contact Diagnoses Malignant neoplasm of upper-outer quadrant of right breast in female, estrogen receptor positive (HCC-CMS) Procedures CT CHEST W CONTRAST Xu Hendrix MD [address] [place] [address], [facility] [address] [place] [address] [facility] Referral ID Status Reason Start Date Expiration Date Visits Requested Visits Authorized [id number] Authorization Not Required 3 1 1 * Radiology Services (Routine/Next Available) - Authorization Not Required Specialty Diagnoses / Procedures Referred By Contac t Referred To Contact Diagnoses Malignant neoplasm of upper-outer quadrant of right breast in female, estrogen receptor positive (HCC-CMS) Procedures CT ABDOMEN PELVIS W CONTRAST Xu Hendrix MD [address] [place] [address], [facility] [address] [place] [address] [facility] Referral ID Status Reason Start Date Expiration Date Visits Requested Visits Authorized [id number] Authorization Not Required 3 1 1 Reason for Visit * Reason Comments New Patient Visit * Consult (Routine/Next Available) - Authorization Not Required Specialty Diagnoses / Procedures Referred By Contac t Referred To Contact Hematology and Oncology Diagnoses Mass of upper outer quadrant of right breast Haseeb Craig MD [address] [facility] [place] [address] [facility] Adult Hem Onc [address] [place] [address] Referral ID Status Reason Start Date Expiration Date Visits Requested Visits Authorized [id number] Authorization Not Required Specialty Services Required 02/17/20 23 1 1 Encounter Details Date Type Department Care Team (Late st Contact Info) Description 02/21/2023 11:00 EST Office Visit [facility] Adult Hematology & Oncology [address] [facility], [place], [place] [id number] Xu Hendrix MD [address] [place] [address] Malignant neoplasm of upper-outer quadrant of right breast in female, estrogen receptor positive (HCC-CMS) (Primary Dx) Social History Tobacco Use Types [...] housing, medical care, and heating? Somewhat hard 05/02/2022 Hunger Vital Sign Answer Date Recorded Within the past 12 months, y ou worried that your food would run out before you got the money to buy more. Sometimes true Within the past 12 months, t he food you bought just didn't last and you didn't have money to get more. Never true PRAPARE - Transportation Answer Date Re corded In the past 12 months, has l ack of transportation kept you from medical appointments or from getting medications? No 04/04 In the past 12 months, has l ack of transportation kept you from meetings, work, or from getting things needed for daily living? No 05/02/2022 Housing Stability Vital Sign Answer Lenard e Recorded In the last 12 months, was t here a time when you were not able to pay the mortgage or rent on time? No 05/02/2022 In the last 12 months, how many places have you lived? 1 05/02/2022 In the last 12 months, was t here a time when you did not have a steady place to sleep or slept in a skilled nursing (including now)? No 05/02/2022 Interpersonal Safety Answer Date Record ed How often does anyone, inclu ding family, hit, punch or physically hurt you? Never 05/02/2022 How often does anyone, elaina gutierrez family, insult, scream, curse or threaten to hurt you? Never 05/02/2022 Sex and Gender Information Value Date Recorded Sex Assigned at Not on file Gender Identity Female 02/28/2019 7:38 EST Sexual Orientation Not on file documented as of this encounter Last Filed Vital Signs Vital Sign Reading Time Taken Comments Blood Pressure 148/74 02/21/2023 1056 EST Pulse 56 02/21/2023 1056 EST Temperature - - Respiratory Rate - - Oxygen Saturation 99% 02/21/2023 1056 EST Inhaled Oxygen Concentration - - Weight 64.9 kg (143 lb) 02/21/2023 1056 EST Height - - Body Mass Index 28.88 12/26/2022 1039 EDT documented in this encounter Functional Status [...] as of this encounter Progress Notes * Xu Hendrix MD - 02/21/2023 1100 EST Hematology Oncology Office Visit Assessment & Plan Kenyatta Vizcaino is a 82-year-old female with history of CAD s/p PCI, hypertension, CVA, brain aneurysm, trigeminal neuralgia, ABDOULAYE was recently diagnosed with invasive ductal carcinoma of the rightbreast. She is here to discuss about the management. 1. Invasive ductal adenocarcinoma (ER+): Patient has no major breast complaints. She states that she has been recovered well from her breast biopsy. I reviewed her imaging which showing 2 lesions at 10 o'clock position, 5 cm from the nipple. The largest lesion measures 2.4 cm adjacent to the is a smaller lesion measuring 0.8 cm. Right axilla shows numerous lymph nodes which may be concerning for malignancy. Biopsy of the mass was consistent with invasive ductal adenocarcinoma, grade 2, ER+ (> 90%), PA-, HER2 negative (IHC 0). Biopsy of thelymph node was not performed. I will discuss with Dr. Craig if the lymph nodes in the axilla looked suspicious or not. Given the abnormal appearing lymph nodes in the axilla we will get staging scans CT chest, abdomen and nuclear bone scan. Overall this is localized breast cancer with +/- LN involvement pending staging scans. We discussedthat If this is stage I-III is curable with surgery followed by radiation depending upon the type of surgery. We talked that she may or may not need adjuvant chemotherapy depending on the Oncotype DXscore, size of the tumor, grade, number of lymph nodes involvement. In addition, she will also be needing adjuvant endocrine therapy with letrozole for 5 to 10 years to reduce the risk of distant metastasis. We also talked about in the case she is not a candidate for surgery due to her age and co-mobidities then we could trial less common approach in hormone receptor breast cancer would be neoadjuvant endocrine therapy followed by surgery down the line vs palliative endocrine therapy. We briefly discussed about goals of care. Patient states that she is fit compared to other 82-year-old. She would like curative treatment with surgery if safe. Plan: -Breast surgery referral placed -CT CAP w contrast and bone scan LENARD for staging -F/u after surgery Xu Hendrix MD Hematology/Oncology Hematology Oncology History 1. 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 Right axilla morphologically abnormal lymph nodes including a hypoechoic node measuring 1.4 x 0.9 x 0.9 cm. 02/09/2023: Biopsy of the dominant lesion revealed invasive ductal adenocarcinoma, grade 2, ER+ (> 90%), PA-, HER2 negative (IHC 0). 2. Medical Hx: CAD status post PCI, hypertension, CVA, trigeminal neuralgia, ABDOULAYE, brain aneurysm 3. Surgical Hx: Rotator cuff repair, bilateral blepharoplasty 4. Family Hx: No family history of cancer 5. Social Hx: She lives in [place], [place]. She denied any use of tobacco, alcohol or illicit drugs. 6. CLINICAL TRIAL SPECIALIST Hx: G2, P2 L2. Age at first was 20. No use of OCP or HRT. Rosy You is here to discuss about newly diagnosed breast cancer. She states that she is doing well with no major breast complaints. She lives active lifestyle, lives independently and independent with her ADLs. She walks 15 to 20 minutes 3 times a day. She drives,cooks, cleans and does laundry all by herself. Her daughter Adriana checks on her every day. She has been having pain in her left foot which has been bothering her for quite some time. The pain increases on walking and decreases on rest. She states that this pain does not limit her mobility. She denied any chest pain, shortness of breath, nausea, vomiting, diarrhea, bone pain, abdominal pain, melena, hematochezia. Objective Vitals: 02/21/23 1056 BP: (!) 148/74 Pulse: 56 SpO2: 99% Weight: 64.9 kg (143 lb) Wt Readings from Last 3 Encounters: 02/21/23 64.9 kg (143 lb) 02/09/23 64.9 kg (143 lb) 01/18/23 68.5 kg (151 lb) ECO ROS: Except as noted above in the HPI, full remaining 10 point review of systems, including constitutional, cardiac, pulmonary, GI, /CLINICAL TRIAL SPECIALIST, neurologic, musculoskeletal, HEENT, psychiatric, and endocrine, and all remaining, is otherwise fully unremarkable. Physical Exam: General appearance: Awake, alert, oriented x3, NAD. Skin: Skin color, tempature, turgor normal. No rashes or lesions Head: Normocephalic, without obvious abnormality, atraumatic Eyes: sclerae anicteric Neck: supple, symmetrical, trachea midline Lungs: CTAB Heart: regular rate and rhythm, S1, S2 normal Abdomen: soft, non-tender; bowel sounds normal; no masses, no organomegaly Extremities: extremities warm, atraumatic Labs Lab Results Component Value Date WBC 8.61 01/18/2023 HGB 12.7 01/18/2023 HCT 37.6 01/18/2023 MCV 89 01/18/2023 PLT 313 01/18/2023 NEUTROABS 5.36 01/18/2023 CALCIUM 11.3 (H) 01/18/2023 CO2 29 01/18/2023 AST 22 10/20/2022 ALT 16 10/20/2022 TBIL 1.4 (H) 10/20/2022 CREATININE 0.71 01/22/2023 ANIONGAP 5 01/18/2023 TP 7.8 10/20/2022 K 3.7 01/18/2023 ALKPHOS 120 10/20/2022 LABALBU 4.3 10/20/2022 BUN 17 01/18/2023 CALCGFR 85 01/22/2023 CL 103 01/18/2023 SERGLU 117 (H) 01/18/2023 NA 137 01/18/2023 Imaging Parts of this note were dictated using [employer] dictation software and while it was proofread there may still be dictation errors in grammar and mistaken words. I spent a total of 60 minutes on the date of this encounter meeting with the patient and reviewing documentation/coordinating care as described in the above note. No procedures were performed at the time of the visit. documented in this encounter Plan of Treatment Upcoming Encounters Date Type Department Care Team (Late st Contact Info) Description 05/19/2024 11:00 EST Office Visit [facility] Family Medicine [address] [place] [address] Dane Rick MD [address] [place] [address] [address] [place] [address] Scheduled Referrals Name Type Priority Associated Diagnoses Order Schedule AMB CONS/FOLLOW UP GENERAL SURGERY/COLORECT AL SURGERY Outpatient Referral Routine/Next Available Malignant neoplasm of upper-outer quadrant of right breast in female, estrogen receptor positive (HCC-CMS) Expected: 02/28/2023 (Approximate), Expires: 02/22/2024 documented as of this encounter Results * NM BONE WHOLE BODY (03/02/2023 14:35 EST) Anatomical Region Laterality Modality Nuclear Medicine 03/02/2023 14:4 7 EST Impressions 03/02/2023 14:47 EST 1. ??No convincing scintigraphic evidence of osseous metastatic disease. Please refer to the separately dictated CT chest abdomen pelvis reports of 03/02/2023 for additional findings and discussion. 2. ??Probable multifocal degenerative uptake, as detailed above. [id number] Narrative 03/02/2023 14:47 EST NM BONE WHOLE BODY ??03/02/2023 2:00 PM Signs and Symptoms: ??Newly diagnosed breast cancer with axillary lymphadenopathy for staging; Breast cancer, invasive, stage IV, initial workup; Newly diagnosed breast cancer with axillary lymphadenopathy for staging;C50.411:Malignant neoplasm of upper-outer quadrant of right breast in female, estrogen receptor positive ([facility]);Z17.0:Malignant neoplasm of upper-outer quadrant of right breast in female, estrogen rece Comparison: Separately dictated CT chest abdomen pelvis on 03/02/2023. CTA head and neck on 01/22/2023. Radiographs on 09/19/2021, 04/15/2019. Technique: Approximately two hours after the IV injection of 20.7 mCi Tc-99m MDP, anterior and posterior whole body bone images were obtained. FINDINGS: Moderate left-sided and mild right-sided pubic body uptake, favor secondary to pubic arthrosis when compared to today's separately dictated CT. Mild uptake scattered throughout the thoracolumbar spine is likely degenerative when compared to the CT. Mild-moderate right and mild left sternoclavicular uptake is also likely degenerative. Moderate multifocal uptake in the left foot is likely secondary to advanced midfoot and hindfoot arthrosis when compared to prior radiographs. Mild-moderate uptake in the medial compartment of the left knee is also likely degenerative. Additional mild degenerative uptake is scattered throughout the remainder of the appendicular skeleton. Overall, no convincing scintigraphic evidence of osseous metastatic disease. No abnormal soft tissue uptake identified. Trace urine contamination incidentally noted between the upper thighs. Procedure Note Vlad Boyd MD - 03/02/2023 NM BONE WHOLE BODY 03/02/2023 2:00 PM Signs and Symptoms: Newly diagnosed breast cancer with axillarylymphadenopathy for staging; Breast cancer, invasive, stage IV, initialworkup; Newly diagnosed breast cancer with axillary lymphadenopathy forstaging;C50.411:Malignant neoplasm of upper-outer quadrant of right breastin female, estrogen receptor positive (HCC-CMS);Z17.0:Malignant neoplasmof upper-outer quadrant of right breast in female, estrogen rece Comparison: Separately dictated CT chest abdomen pelvis on 03/02/2023. CTAhead and neck on 01/22/2023. Radiographs on 09/19/2021, 04/15/2019. Technique: Approximately two hours after the IV injection of 20.7 mCiTc-99m MDP, anterior and posterior whole body bone images were obtained. FINDINGS: Moderate left-sided and mild right-sided pubic body uptake, favorsecondary to pubic arthrosis when compared to today's separately dictatedCT. Mild uptake scattered throughout the thoracolumbar spine is likelydegenerative when compared to the CT. Mild-moderate right and mild leftsternoclavicular uptake is also likely degenerative. Moderate multifocal uptake in the left foot is likely secondary toadvanced midfoot and hindfoot arthrosis when compared to priorradiographs. Mild-moderate uptake in the medial compartment of the leftknee is also likely degenerative. Additional mild degenerative uptake isscattered throughout the remainder of the appendicular skeleton. Overall, no convincing scintigraphic evidence of osseous metastaticdisease. No abnormal soft tissue uptake identified. Trace urine contaminationincidentally noted between the upper thighs. IMPRESSION 1. No convincing scintigraphic evidence of osseous metastatic disease.Please refer to the separately dictated CT chest abdomen pelvis reports of03/02/2023 for additional findings and discussion. 2. Probable multifocal degenerative uptake, as detailed above. [id number] Xu MOREAU NM ORDERABLES * CT CHEST W CONTRAST (03/02/2023 11:45 EST) Anatomical Region Laterality Modality Chest Computed Tomogra phy 03/02/2023 11:2 5 EST Impressions 03/05/2023 13:32 EST 1. ?? Lobulated soft tissue mass in the right breast in keeping with stated history of right breast cancer. 2. ?? There are a few subcentimeter right axillary lymph nodes. Although these lymph nodes are within normal limits for size, the demonstrate no definite fatty faustino, raising the possibility that they may be pathologic/metastatic in nature. 3. ?? Interval development of moderate circumferential wall thickening of the midesophagus, which may be associated with luminal narrowing. Differential possibilities include esophagitis and esophageal mass cannot be excluded. Recommend esophagram or upper endoscopy for further evaluation. Suggest GI consult. THIS DOCUMENT HAS BEEN ELECTRONICALLY SIGNED BY DANICA SULTANA MD FOR ANY QUESTIONS OR CONCERNS REGARDING THIS REPORT PLEASE CALL [facility] AT [phone] Narrative 03/05/2023 13:32 EST PROCEDURE INFORMATION: Exam: CT Chest With Contrast; Diagnostic Exam date and time: 03/02/2023 11:25 AM Age: 82 years old Clinical indication: Malignant neoplasm of upper-outer quadrant of right female breast; Estrogen receptor positive status (er+); Condition or disease; Other: Breast CA; Initial oncological staging assessment; Additional info: Newly diagnosed breast cancer with axillary lymphadenopathy for staging TECHNIQUE: Imaging protocol: Diagnostic computed tomography of the chest with contrast. 3D rendering (Not supervised by radiologist): MIP and/or 3D reconstructed images were created by the technologist. Radiation optimization: All CT scans at this facility use at least one of these dose optimization techniques: automated exposure control; mA and/or kV adjustment per patient size (includes targeted exams where dose is matched to clinical indication); or iterative reconstruction. Contrast material: OMNI 350; Contrast volume: 100 ml; Contrast route: INTRAVENOUS (IV); ?? REPORTING DATA: Count of CT and Cardiac NM exams in prior 12 months: This patient has received 3 known CTs and 0 known cardiac nuclear medicine studies in the 12 months prior to the current study. COMPARISON: CT CHEST WITHOUT CONTRAST 06/05/2019 1:26 PM FINDINGS: Thyroid: Heterogeneous left thyroid nodule measuring 3.3 x 2.4 cm, similar to the prior study. Lungs: Unremarkable. No consolidation. No masses. Pleural spaces: Unremarkable. No pneumothorax. No pleural effusion. Heart: Mild aortic valvular calcification. Coronary arteries: Mild atherosclerotic calcifications of the coronary arteries. Mediastinal space: Moderate, circumferential wall thickening of the mid esophagus, which may be associated with luminal narrowing (image 50/series 401). Lymph nodes: There are a few subcentimeter right axillary lymph nodes measuring up to 7 mm in diameter (e.g. Image 36/series 401), which demonstrate no definite fatty faustino. No mediastinal or hilar lymphadenopathy identified. Vasculature: Unremarkable. No aortic aneurysm. ?? Bones/joints: Unremarkable. No acute fracture. Soft tissues: Lobulated soft tissue mass in the right breast measuring 1.9 x 2.1 x 2.7 cm. Procedure Note Danica Sultana MD - 03/05/2023 PROCEDURE INFORMATION: Exam: CT Chest With Contrast; Diagnostic Exam date and time: 03/02/2023 11:25 AM Age: 82 years old Clinical indication: Malignant neoplasm of upper-outer quadrant of right female breast; Estrogen receptor positive status (er+); Condition or disease; Other: Breast CA; Initial oncological staging assessment; Additional info: Newly diagnosed breast cancer with axillary lymphadenopathy for staging TECHNIQUE: Imaging protocol: Diagnostic computed tomography of the chest with contrast. 3D rendering (Not supervised by radiologist): MIP and/or 3D reconstructed images were created by the technologist. Radiation optimization: All CT scans at this facility use at least one of these dose optimization techniques: automated exposure control; mA and/or kV adjustment per patient size (includes targeted exams where dose is matched to clinical indication); or iterative reconstruction. Contrast material: OMNI 350; Contrast volume: 100 ml; Contrast route: INTRAVENOUS (IV); REPORTING DATA: Count of CT and Cardiac NM exams in prior 12 months: This patient has received 3 known CTs and 0 known cardiac nuclear medicine studies in the 12 months prior to the current study. COMPARISON: CT CHEST WITHOUT CONTRAST 06/05/2019 1:26 PM FINDINGS: Thyroid: Heterogeneous left thyroid nodule measuring 3.3 x 2.4 cm, similar to the prior study. Lungs: Unremarkable. No consolidation. No masses. Pleural spaces: Unremarkable. No pneumothorax. No pleural effusion. Heart: Mild aortic valvular calcification. Coronary arteries: Mild atherosclerotic calcifications of the coronary arteries. Mediastinal space: Moderate, circumferential wall thickening of the mid esophagus, which may be associated with luminal narrowing (image 50/series 401). Lymph nodes: There are a few subcentimeter right axillary lymph nodes measuring up to 7 mm in diameter (e.g. Image 36/series 401), which demonstrate no definite fatty faustino. No mediastinal or hilar lymphadenopathy identified. Vasculature: Unremarkable. No aortic aneurysm. Bones/joints: Unremarkable. No acute fracture. Soft tissues: Lobulated soft tissue mass in the right breast measuring 1.9 x 2.1 x 2.7 cm. IMPRESSION 1. Lobulated soft tissue mass in the right breast in keeping with stated history of right breast cancer. 2. There are a few subcentimeter right axillary lymph nodes. Although these lymph nodes are within normal limits for size, the demonstrate no definite fatty faustino, raising the possibility that they may be pathologic/metastatic in nature. 3. Interval development of moderate circumferential wall thickening of the midesophagus, which may be associated with luminal narrowing. Differential possibilities include esophagitis and esophageal mass cannot be excluded. Recommend esophagram or upper endoscopy for further evaluation. Suggest GI consult. THIS DOCUMENT HAS BEEN ELECTRONICALLY SIGNED BY DANICA SULTANA MD FOR ANY QUESTIONS OR CONCERNS REGARDING THIS REPORT PLEASE CALL [facility] [phone] Xu Hendrix MD IMG CT ORDERABLES * CT ABDOMEN PELVIS W CONTRAST (03/02/2023 11:45 EST) Anatomical Region Laterality Modality Body, Abdomen, Pelvis, Abdomen and Pelvis Computed Tomography 03/02/2023 11:2 5 EST Impressions 03/05/2023 13:35 EST 1. ?? No evidence of metastatic disease in the abdomen or pelvis. 2. ?? The endometrial stripe is abnormally thickened for the postmenopausal state, measuring up to 8 mm in diameter. Correlate for dysfunctional uterine bleeding. Recommend nonemergent pelvic ultrasound for further evaluation. 3. ?? Please refer to separately dictated chest CT report for description of findings in the chest. COMMENTS: Consistent with the [employer]'s Incidental Findings Committee white paper (J Am Cole Radiol 2018): Any incidental renal lesion less than 1 cm or classified as too small to characterize, or any incidental cystic renal lesion characterized as simple-appearing, is likely benign. No follow-up imaging is recommended for these lesions per consensus recommendations based on imaging criteria. THIS DOCUMENT HAS BEEN ELECTRONICALLY SIGNED BY DANICA SULTANA MD FOR ANY QUESTIONS OR CONCERNS REGARDING THIS REPORT PLEASE CALL [facility] AT [phone] [facility] 03/05/2023 13:35 EST PROCEDURE INFORMATION: Exam: CT Abdomen And Pelvis With Contrast Exam date and time: 03/02/2023 11:25 AM Age: 82 years old Clinical indication: Malignant neoplasm of upper-outer quadrant of right female breast; Estrogen receptor positive status (er+); Condition or disease; Cancer; Other: Breast CA; Initial oncological staging assessment; Additional info: Newly diagnosed breast cancer with axillary adenopathy for staging TECHNIQUE: Imaging protocol: Computed tomography of the [...] 100 ml; Contrast route: INTRAVENOUS (IV); ?? REPORTING DATA: Count of CT and Cardiac NM exams in prior 12 months: This patient has received 3 known CTs and 0 known cardiac nuclear medicine studies in the 12 months prior to the current study. COMPARISON: CR XR PELVIS 1-2 VIEWS 03/21/2021 5:03 AM FINDINGS: Liver: Normal. No mass. Gallbladder and bile ducts: Normal. No calcified stones. No ductal dilation. Pancreas: Normal. No ductal dilation. Spleen: Normal. No splenomegaly. Adrenal glands: Normal. No mass. Kidneys and ureters: Lower pole 1.7 cm (1 HU) likely benign water attenuation right renal cyst, requiring no further evaluation. Otherwise unremarkable kidneys. Stomach and bowel: Duodenal diverticula noted. Scattered colonic diverticula, without evidence of diverticulitis. No other gross bowel abnormalities. No bowel obstruction. Appendix: Normal appendix. Intraperitoneal space: Unremarkable. No free air. No significant fluid collection. Vasculature: Unremarkable. No abdominal aortic aneurysm. Lymph nodes: Unremarkable. No enlarged lymph nodes. Urinary bladder: Unremarkable as visualized. Reproductive: Partially calcified left-sided intramural/subserosal uterine fibroid measuring 5.3 x 7.1 x 5.7 cm. The endometrial stripe is abnormally thickened for the postmenopausal state, measuring up to 8 mm in diameter. Bones/joints: Demineralization of the osseous structures somewhat limits evaluation. No acute or suspicious osseous abnormalities. Severe multilevel degenerative changes of the lumbar spine, with findings including disc space narrowing, marginal osteophytes and degenerative changes in the vertebral endplates, greatest at L2 through L4. Soft tissues: Unremarkable. 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 COMPARISON: CR XR PELVIS 1-2 VIEWS 03/21/2021 5:03 AM FINDINGS: Liver: Normal. No mass. Gallbladder and bile ducts: Normal. No calcified stones. No ductal dilation. Pancreas: Normal. No ductal dilation. Spleen: Normal. No splenomegaly. Adrenal glands: Normal. No mass. Kidneys and ureters: Lower pole 1.7 cm (1 HU) likely benign water attenuation right renal cyst, requiring no further evaluation. Otherwise unremarkable kidneys. Stomach and bowel: Duodenal diverticula noted. Scattered colonic diverticula, without evidence of diverticulitis. No other gross bowel abnormalities. No bowel obstruction. Appendix: Normal appendix. Intraperitoneal space: Unremarkable. No free air. No significant fluid collection. Vasculature: Unremarkable. No abdominal aortic aneurysm. Lymph nodes: Unremarkable. No enlarged lymph nodes. Urinary bladder: Unremarkable as visualized. Reproductive: Partially calcified left-sided intramural/subserosal uterine fibroid measuring 5.3 x 7.1 x 5.7 cm. The endometrial stripe is abnormally thickened for the postmenopausal state, measuring up to 8 mm in diameter. Bones/joints: Demineralization of the osseous structures somewhat limits evaluation. No acute or suspicious osseous abnormalities. Severe multilevel degenerative changes of the lumbar spine, with findings including disc space narrowing, marginal osteophytes and degenerative changes in the vertebral endplates, greatest at L2 through L4. Soft tissues: Unremarkable. IMPRESSION 1. No evidence of metastatic disease in the abdomen or pelvis. 2. The endometrial stripe is abnormally thickened for the postmenopausal state, measuring up to 8 mm in diameter. Correlate for dysfunctional uterine bleeding. Recommend nonemergent pelvic ultrasound for further evaluation. 3. Please refer to separately dictated chest CT report for description of findings in the chest. COMMENTS: Consistent with the [employer]'s Incidental Findings Committee white paper (J Am Cole Radiol 2018): Any incidental renal lesion less than 1 cm or classified as too small to characterize, or any incidental cystic renal lesion characterized as simple-appearing, is likely benign. No follow-up imaging is recommended for these lesions per consensus recommendations based on imaging criteria. THIS DOCUMENT HAS BEEN ELECTRONICALLY SIGNED BY DANICA SULTANA MD FOR ANY QUESTIONS OR CONCERNS REGARDING THIS REPORT PLEASE CALL [facility] [phone] Xu Hendrix MD IMG CT ORDERABLES documented in this encounter Visit Diagnoses Diagnosis Malignant neoplasm of upper-outer quadrant of right breast in female, estrogen receptor positive (HCC-CMS)- Primary Malignant neoplasm of upper-outer quadrant of right breast in female, estrogen receptor positive (HCC-CMS) Malignant neoplasm of upper-outer quadrant of right breast in female, estrogen receptor positive (HCC-CMS) documented in this encounter Care Teams Hydrogen Cell Tender Relationship Specialty Start Date End Date Dane Rick MD [address] [place] [phone] PCP - General Family Medicine - Primary Care 08/09/22 Vicky Chamberlain LICSW Director Of Catering Sales 06/12/22 01/22/24 documented as of this encounter
--- OUTSIDE RECORDS SUMMARY | 2024-02-08 01:08 | XMS_ITS | Encounter Summary ---
Author Organization [facility] Address [address] [place] [address] Care Team Providers Care Requirements Analyst Name Role Phone Vicky Chamberlain Unavailable [phone] Dane Rick MD Primary Care Provider [phone] Encounter Details Date Type Department Care Team ([facility] st Contact Info) Description 03/13/2023 Orders Only [facility] [place] [address] [place] [address] Ernie West Social History Tobacco Use Types Packs/Day Years [...] place to sleep or slept in a penitentiary (including now)? No 03/15/2023 Interpersonal Safety Answer [...] Info) Description 05/19/2024 11:00 EST Office Visit [facility] Family Medicine [address], [address] [place] [address] Dane Rick MD [address] [facility] [address] [place] [phone] documented as of this encounter Visit Diagnoses Not on filedocumented in this encounter Care Teams Requirements Analyst Relationship Specialty Start Date End Date Dane Rick MD [address] [place] [phone] PCP - General Family Medicine - Primary Care 08/09/22 Vicky Chamberlain [facility] Job Interviewer 06/12/22 01/22/24 documented as of this encounter
--- OUTSIDE RECORDS SUMMARY | 2024-02-08 01:08 | XMS_ITS | Encounter Summary ---
Author Organization [facility] Address [address] [place] [address] Care Team Providers Care Sampler Ovens Name Role Phone Vicky Chamberlain Unavailable [phone] Dane Rick MD Primary Care Provider [phone] Leticia Lieberman Unavailable Mendoza Guzmán MD Unavailable [phone] Reason for Visit * Reason Onset Date Comments Appointment Related 02/28/2023 Encounter Details Date Type Department Care Team (Late st Contact Info) Description 02/28/2023 Telephone [facility] [place] Adult Hematology & Oncology [address] [place] [phone] Xu Hendrix MD [address] [place] [address] [address] [place] [phone] Appointment Related Social History Tobacco Use Types [...] slept in a half-way (including now)? No 05/02/2022 Interpersonal Safety Answer [...] encounter Miscellaneous Notes * Telephone Encounter - Rounds, Puentes, RN - 02/28/2023 1323 EST 02/28/23 13:23 Called and spoke to pt. - answered her questions re: CT / NM bone scan. Transferred to Diagnostic Imaging for scheduling. Nataliia - JODEE. * Telephone Encounter - Nataliia Farnsworth - 02/28/2023 0959 EST Patient is to have CT & Bone Scan LENARD per R.A note on 02/21/23. I called radiology to make sure they were aware, they stated they have already reached out to patient would like to talk with provider first about scans. Please reach out to the patient to talk more about the scans, then advise they call radiology at [phone] to schedule. Thanks! documented in this encounter Plan of Treatment Upcoming Encounters Date Type Department Care Team (Late st Contact Info) Description 05/19/2024 11:00 EST Office Visit [facility] Family [address], [address] [address] Dane Rick MD [address] [place], [place] [phone] documented as of this encounter Visit Diagnoses Not on filedocumented in this encounter Additional Health Concerns Infection Onset Date Last Indicated Resolved Time R/O COVID-19 08/13/2023 08/13/2023 08/13/2023 20:0 7 EDT documented as of this encounter Care Teams Sampler Ovens Relationship Specialty Start Date End Date Dane Rick MD [address] [place] [phone] PCP - General Family Medicine - Primary Care 08/09/22 Vicky Chamberlain, [facility] Marine Structural Welder 06/12/22 01/22/24 Leticia Lieberman [address] [place] [phone] General Surgery 04/03/23 Mendoza Guzmán MD [address] [place] [phone] Otolaryngology 04/03/23 documented as of this encounter
--- OUTSIDE RECORDS SUMMARY | 2024-02-08 01:08 | XMS_ITS | Encounter Summary ---
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) Procedures MA BREAST SPECIMEN ONLY RIGHT MA STEREO BREAST SPECIMEN RIGHT Haseeb Craig MD [address] [address] [facility] Referral ID Status Reason Start Date Expiration Date Visits Requested Visits Authorized [id number] Authorization Not Required 03/08/2023 1 1 * Radiology Services (Routine/Next Available) - Closed Specialty Diagnoses / Procedures Referred By Franky t Referred To Contact Nuclear Medicine Diagnoses Invasive ductal carcinoma of right breast (HCC-CMS) Procedures NM INJECTION ONLY SENTINEL NODE BREAST Haseeb Craig MD [address] [address] [facility] Referral ID Status Reason Start Date Expiration Date Visits Re quested Visits Authorized [id number] Closed 03/08/2023 1 1 Reason for Visit * Reason Comments Discuss Surgery Follow up to her bio psy. * Consult (48 Hrs (Urgent)) - Specialty Report Received Specialty Diagnoses / Procedures Referred By Franky ferreira Referred To Contact General Surgery Diagnoses Malignant neoplasm of upper-outer quadrant of right breast in female, estrogen receptor positive (HCC-CMS) Xu Hendrix MD [address] [place] [address], [address] [place] [address] [facility] [address] [place] [address] Referral ID Status Reason Start Date Expiration Date Visits Requested Visits Authorized [id number] Specialty Report Received Specialty Services Required 3 1 1 Encounter Details Date Type Department Care Team (Late st Contact Info) Description 03/08/2023 10:00 EST Office Visit [facility] General Surgery [address] [place] [address] Haseeb Craig MD [address] [place] [address], [facility] [address] [place] [address] Mass of upper outer quadrant of right breast (Primary Dx); Invasive ductal carcinoma of right breast (HCC-CMS) Social History Tobacco Use Types Packs/Day [...] place to sleep or slept in a fci (including now)? No 03/15/2023 Interpersonal Safety Answer [...] Sign Reading Time Taken Comments Blood Pressure 149/80 03/08/2023 1001 EST Pulse 56 03/08/2023 1001 EST Temperature - - Respiratory Rate - - Oxygen Saturation - - Inhaled Oxygen Concentration - - Weight 66.7 kg (147 lb) 03/08/2023 1001 EST Height 149.9 cm (4' 11) 03/08/2023 1001 EST Body Mass Index 29.69 03/08/2023 1001 EST documented in this encounter Functional Status [...] as of this encounter Progress Notes * Haseeb Craig MD - 03/08/2023 1000 EST Images from the original note were not included. General Surgery H&P Referring Provider: Dane Rick Reason for Visit: newly diagnosed right breast cancer HPI: Kenyatta Vizcaino is a 82 y.o. female who returns to discuss biopsy results. She underwent ultrasound-guided core needle biopsy of the right breast mass by me on 02/09/23. Pathology results showedinvasive ductal carcinoma, ER+, WI-, Her2/parveen negative. Additionally, ultrasound done at the time of breast imaging demonstrated suspicious right axillary lymph nodes. She returned last week with her daughter to discuss next steps in treatment. She is quite frustrated with the pace of care and worries that this will contribute to advanced disease stage. She denies any symptoms and wants to know what her survival chances are. She has been in touch with the med/oncoffice and she underwent CT C/A/P and bone scan on 03/02/23. These showed no sign of distantmetastatic disease. We discussed her case in tumor board on 03/06/23 and the consensus was for up- front surgical resection followed by adjuvant therapies. She returns today to discuss this. Past Medical History: Diagnosis Date Abnormal stress test reversible anteroseptal defect, with equivocal ST changes Arthritis Breathlessness on exertion Cerebral artery occlusion with cerebral infarction (HCC-CMS) Chest pressure on exertion Diverticulosis HLD (hyperlipidemia) HLD (hyperlipidemia) Hypertension ABDOULAYE (obstructive sleep apnea) Post concussive syndrome poor memory Seizure disorder (HCC-CMS) Trigeminal neuralgia Family History Problem Relation Age of Onset Heart Disease Father High Blood Pressure Father Early Paternal Aunt Diabetes Paternal Aunt Diabetes Paternal Uncle Early Son Current Outpatient Medications Medication Sig Dispense Refill aspirin 81 mg EC tablet Take 1 Tablet by mouth every 48 hours. doxycycline (VIBRA-TABS) 100 mg tablet (Patient not taking: Reported on 02/09/2023) ergocalciferol, vitamin D2, (VITAMIN D ORAL) Take 1 Tablet by mouth daily at 1200. furosemide (LASIX) 20 mg tablet TAKE 2 TABLETS BY MOUTH ONCE DAILY IN THE MORNING AND 1 IN THE AFTERNOON (Patient taking differently: TAKE 2 TABLETS BY MOUTH ONCE DAILY IN THE MORNING AND 1 IN THE AFTERNOON * states takes it when she needs it.) 270 Tablet 0 hydrOXYzine (ATARAX) 25 mg tablet Take 1 Tablet by mouth 3 times daily as needed for Itching. (Patient not taking: Reported on 03/08/2023) 60 Tablet 0 losartan (COZAAR) 100 mg tablet Take 1 Tablet by mouth daily. 90 Tablet 1 MAGNESIUM GLUCONATE ORAL Take 1 Tablet by mouth daily at 1200. No current facility-administered medications for this visit. Allergies Allergen Reactions Amoxicillin-Pot Clavulanate Rash Atorvastatin Muscle Aches Flagyl [Metronidazole] Metoprolol Other (See Comments) heart failure? Penicillins Zithromax [Azithromycin] Social History Socioeconomic History Marital status: Spouse name: Not on file Number of children: Not on file Years of education: Not on file Highest education level: Not on file Occupational History Not on file Tobacco Use Smoking status: Never Smokeless tobacco: Never Substance and Sexual Activity Alcohol use: Yes Comment: occasionally Drug use: No Sexual activity: Not on file Other Topics Concern Not on file Social History Narrative Not on file Social Determinants of Health Financial Resource Strain: Medium Risk (05/02/2022) Overall Financial Resource Strain (CARDIA) Difficulty of Paying Living Expenses: Somewhat hard Food Insecurity: Food Insecurity Present (05/02/2022) Hunger Vital Sign Worried About Running Out of Food in the Last Year: Sometimes true Ran Out of Food in the Last Year: Never true Transportation Needs: No Transportation Needs (05/02/2022) PRAPARE - Transportation Lack of Transportation (Medical): No Lack of Transportation (Non-Medical): No Physical Activity: Not on file Stress: Not on file Social Connections: Not on file Housing Stability: Low Risk (05/02/2022) Housing Stability Vital Sign Unable to Pay for Housing in the Last Year: No Number of Places Lived in the Last Year: 1 Unstable Housing in the Last Year: No Recent Concern: Housing Stability - High Risk (03/14/2022) Housing Stability Vital Sign Unable to Pay for Housing in the Last Year: Yes Number of Places Lived in the Last Year: Not on file Unstable Housing in the Last Year: No Review of Systems: A ten point review of systems was performed and was negative except for pertinent positives noted in the HPI Objective: BP (!) 149/80 Pulse 56 Ht (!) 149.9 cm (59) Wt 66.7 kg (147 lb) BMI 29.69 kg/m?? General: alert, cooperative, no distress Hydration: well hydrated Lungs: clear to auscultation bilaterally Heart: regular rate and rhythm Abdomen: soft, non-tender; bowel sounds normal; no masses, no organomegaly Skin: normal Breast: exam deferred as previous exam done on 02/09 demonstrated palpable right lateral breast mass, no obvious axillary nodes on exam Imaging: Addenda Addendum: A preliminary report t and confirmation of Findings and Recommendations was given to Leonela the office of Tamy Howe on 01/24/2023 at 2:25 PM by Halina. If biopsy is performed at [facility], the referring provider will need to send a referral to the office of [facility] G eneral Surgery. [id number] Signed by Rylan Thapa MD on 01/24/2023 15:58 Narrative & Impression US BREAST LIMITED RIGHT, MA BREAST DIAGNOSTIC LULA BILATERAL SIGNS AND SYMPTOMS/COMMENTS: LARGE MASS OF RIGHT BREAST AND ASOCIATED ENLARGED AXILLARY LYMPH NODE,HIGHLY SUSPICIOUS FOR MALIGNANCY;N63.11:MASS OF UPPER OUTER QUADRANT OF RIGHT BREAST;R59.0:LYMPHADENOPATHY, AXILLARY;N64.4:BREAST PAIN, RIGHT COMPARISONS: Comparison has been made to prior examinations, most recently May 2008. FINDINGS: RIGHT BREAST MAMMOGRAPHY: Full field digital whole breast 2D (C-view) and 3D CC, MLO and ML and spot compression MLO views of the right breast were obtained. CAD technology was utilized. * There are scattered areas of fibroglandular density. * A marker was placed over the outer right breast to denote an area of palpable concern. In the outer right breast at the 9 o'clock position, centered 5 cm from the nipple is an irregular spiculated mass measuring approximately 2.8 cm. * No suspicious microcalcifications are present. RIGHT BREAST ULTRASOUND: The outer half of the right breast was scanned from the 8 o'clock positionto the 10 o'clock position. The right axilla was also scanned. * Corresponding with the site of palpable concern, at the 9 o'clock position, 5 cm from the nipple,there is an irregular hypoechoic mass measuring 2.4 x 2.1 x 2.1 cm. It demonstrates angular marginswith portions taller than wide and mild posterior acoustic shadowing. * There is an adjacent oval 0.8 x 0.4 x 0.6 cm lesion, suspicious for a satellite lesion located approximately 1 cm from the primary lesion (image 70). * The axilla was scanned and multiple morphologically abnormal lymph nodes are present, including ahypoechoic node measuring 1.4 x 0.9 x 0.9 cm with near complete absence of a fatty hilum. LEFT BREAST MAMMOGRAPHY: Full field digital whole breast 2D (C-view) and 3D CC and MLO views of theleft breast were obtained. CAD technology was utilized. * There are scattered areas of fibroglandular density. There is no suspicious mass, architectural distortion or suspicious microcalcification. FINAL ASSESSMENT: DIAGNOSTIC RIGHT BREAST MAMMOGRAM/ULTRASOUND - BI-RADS Category 5 -highly suggestive of malignancy; biopsy should be considered. * Dominant 2.4cm irregular right breast mass with nearby 0.8 cm satellite lesion, highly suggestiveof malignancy. * Numerous morphologically normal right axillary lymph nodes. * Recommend tissue sampling. FINAL ASSESSMENT: SCREENING LEFT BREAST MAMMOGRAM - BI-RADS Category 1 - Negative. RECOMMENDATION: Recommend right breast biopsy as discussed above. Dr Rylan Thapa discussed the findings and recommendations directly with the patient at the time of the examination. OVERALL ASSESSMENT: BI-RADS Category 5: Highly Suggestive of Malignancy These results will be communicated to your patient via a lay letter from Radiology. If any additional imaging is needed we will contact your patient directly. A preliminary report t was given to at the office of Tamy Howe on 01/23/2023 at 1:39 PM by Halina. If biopsy is performed at [facility], the referring provider will need to send a referral to the office of [facility] General Surgery. arrative & Impression PROCEDURE INFORMATION: Exam: CT Abdomen And Pelvis [...] for description of findings in the chest. Narrative & Impression PROCEDURE INFORMATION: Exam: CT Chest With Contrast; [...] endoscopy for further evaluation. Suggest GI consult. Narrative & Impression NM BONE WHOLE BODY 03/02/2023 2:00 PM Signs and Symptoms: Newly diagnosed breast cancer with axillary lymphadenopathy for staging; Breastcancer, invasive, stage IV, initial workup; Newly diagnosed breast cancer with axillary lymphadenopathy for staging;C50.411:Malignant neoplasm of upper-outer quadrant of right breast in female, estrogen receptor positive (HCC-CMS);Z17.0:Malignant neoplasm of upper-outer quadrant of right breast [...] body uptake, favor secondary to pubic arthrosis whencompared to today's separately dictated CT. Mild uptake scattered throughout the thoracolumbar spine is likely degenerative when compared to the CT. Mild-moderate right and mild left sternoclavicularuptake is also likely degenerative. Moderate multifocal uptake in the left foot is likely secondary to advanced midfoot and hindfoot arthrosis when compared to prior radiographs. Mild-moderate uptake in the medial compartment of the left knee is also likely degenerative. Additional mild degenerative uptake is scattered throughout theremainder of the appendicular skeleton. Overall, no convincing scintigraphic evidence of osseous metastatic disease. No abnormal soft tissue uptake identified. Trace urine contamination incidentally noted between theupper thighs. IMPRESSION 1. No convincing scintigraphic evidence of osseous metastatic disease. Please refer to the separately dictated CT chest abdomen pelvis reports of 03/02/2023 for additional findings and discussion. 2. Probable multifocal degenerative uptake, as detailed above. Ancillary Studies Addendum ER/WI RESULTS: Tissue submitted: Paraffin embedded tissue block labelled [id number] (A2) from [facility], [facility] Immunohistochemical assays for estrogen receptors (SP1, Bison) and progesterone receptors (16, Leica) have been performed on this specimen. Intranuclear receptor complexes were visualized on tissuesections using an HRP polymer immunohistochemical technique. This assay is intended for paraffin-emb edded tissue fixed in 10% neutral buffered formalin for 6-72 hours. Results are reported as negative (<1% nuclear staining) or positive with the proportion of positive cells noted. Estrogen receptor expression in <5% of tumor cells may not have a strong interaction with estrogen receptor modulators such as Tamoxifen. Reference: ASCO-CAP Guideline Recommendations for IHC testing of ER and WI. J Clin Oncol 2010;28:2400-3994. NOTE: One or more of the reagents used in immunoperoxidase testing in this case may not have been cleared or approved by the U.S. Food and Drug Administration (FDA). The FDA has determined that suchclearance or approval is not necessary. These tests are used for clinical purposes. They should notbe regarded as investigational or for research. These reagents' performance characteristics have been determined by [facility] and/or by the referring laboratory. The positive and negative controls worked appropriately. If immunoperoxidase staining has been performed on alcohol fixed cytology specimens, which has not been fully validated, the assays should be interpreted with caution and correlated with clinical data. This laboratory is certified under the ClinicalLaboratory Improvement Amendments of 1988 (CLIA-88) as qualified to perform high complexity clinical laboratory testing. INTERPRETATION: A. BREAST, RIGHT, UPPER OUTER QUADRANT, 9 O'CLOCK, MASS, ULTRASOUND-GUIDED CORE BIOPSY: - Adenocarcinoma, invasive. - Positive for estrogen receptors (in greater than 90% of tumor cells). - Nuclear staining intensity: Strong. - Negative for progesterone receptors. COMMENT: Cold ischemic time appropriate: Yes Total formalin fixation time appropriate: No (81.5 hours) HER2/PARVEEN RESULTS: Tissue submitted: Paraffin embedded tissue block labelled [id number] (A2) From [facility], [facility] Fixative: Formalin This immunohistochemical assay is intended to paraffin-embedded tissue fixed in 10% neutral buffered formalin for 6-72 hours; 18-24 hour fixation with maximum tissue thickness of 3-4 millimeters is recommended for best assay performance. Time from biopsy to placement in formalin (cold ischemic time) should be minimized to less than one hour. Her2 should not be performed on alcohol fixed tissues. The assay was performed under appropriate conditions according to the sewer separation designer's instructions with appropriate assay and tissue controls using an Anti-Her2 (4B5) Rabbit Monoclonal Antibody (Bison). Her2 Scoring Guidelines (invasive tumor component only) 0 negative No staining or membrane staining in less than 10% of cells 1+ negative Faint partial membrane staining in more than 10% of cells 2+ weakly positive Moderate complete membrane staining in more than 10% of cells 3+ positive Strong complete membrane staining in more than 10% of cells Reference: ASCO-CAP Recommendations for Her2 Testing. J Clin Oncol 2018; epub (www.jco.org August) *FDA statement Assay results Her2 IHC Score: 0/negative Tumor location: Right Breast upper outer quadrant Cold ischemic time appropriate: Yes Total formalin fixation time appropriate: No (81.5 hours) Cells with complete membrane staining: None Membrane staining intensity: N/A Partial membrane staining: Absent Cytoplasmic staining: Absent Staining pattern: N/A Staining in benign epithelium: Faint Cytoplasmic The Her2 assay performed is interpreted as: NEGATIVE Note: The technical processing and professional interpretation of this testing were performed at the [facility] Department of Pathology and Laboratory Medicine, [address] [place] [address]. [place] # [id number]. Addendum electronically signed by Robel Ferguson MD on 02/16/2023 at 1555 Note to Patient [facility] The following pathology results have been interpreted by your pathologist and may be available toyou before your health provider has had the opportunity to review them. Please allow time for your provider to receive these results and explore management options, if applicable. Final Diagnosis [facility] A. BREAST, RIGHT, UPPER OUTER QUADRANT, 9 O'CLOCK, MASS, ULTRASOUND-GUIDED CORE BIOPSY: - Invasive ductal carcinoma, nuclear grade 2. See comment. Diagnosis Comment [facility] Prognostic studies for ER, WI, and HER2 are pending at the [facility], and the results will be issued in an addendum report to follow. Please note, the specimen fixation time was just outside of the recommended fixation time of up to 72 hours. Please interpret the prognostic markers with a degree of caution. Intradepartmental review was obtained to confirm theabove diagnosis. Attestation By the signature below, the attending physician certifies that they have 1) personally conducted a gross and/or microscopic examination of the described specimen(s), and/or personally interpreted theresults of laboratory testing of the described specimen(s), and 2) personally rendered or confirmedthe above diagnosis. at 1604 Ancillary Studies [facility] Immunoperoxidase stains were performed on this case to further characterize the lesion. ANTIBODY(CLONE)(BLOCK): RESULT GCDF-15 (BRST-2) ([id number], Bison)(A2): Rare, focal staining Mammaglobin (31A5, Leica)(A2): Positive GATA3 ([id number], Bison)(A2): Positive nuclear staining Interpretation: The immunostain profile supports a breast primary carcinoma. The technical component of the above immunohistochemical stain(s) was performed at the [facility] Pathology Department, [address] [place] [address] (CLIA [id number]), and the professional interpretation component was performed at the [facility] Pathology Department, [address] [place] [address] (CLIA [id number]). NOTE: One or more of the reagents used in immunohistochemical testing in this case may not have been cleared or approved by the U.S. Food and Drug Administration (FDA). The FDA has determined that such clearance or approval is not necessary. These tests are used for clinical purposes. They should not be regarded as investigational or for research. These reagents' performance characteristics havebeen determined by [facility] and/or by the referring laboratory. The positive and negative controls worked appropriately. If immunoperoxidase staining has been performed on alcohol fixed cytology specimens, which has not been fully validated, the assays should be interpreted with caution and correlated with clinical data. This laboratory is certified under the Clinical Laboratory Improvement Amendments of 1988 (CLIA-88) as qualified to perform high complexity clinical laboratory testing. Clinical History [facility] Mass of upper outer quadrant of right breast, 9 oclock Gross Description [facility] A. Received in formalin and labeled with ???Kenyatta Vizcaino?? and ???breast?? are several of needle cores of yellow-pond fibrofatty tissue and blood clot ranging in length from 0.2 cm to 1.5 cm. Needle cores are submitted entirely in 2 cassettes. Submitted entirely in cassette A3 are dark red chunks of blood clot and possible fibrofatty tissue measuring an estimated 2.0 cc, filtered. Fixation time: Time out of body: 02/09/23 at 1226 hours Time in formalin: 02/09/23 at 1226 hours Fixation time: 81 hours and 34 minutes Julia Benson 02/12/2023 13:11 Lab Review: NA Office Visit on 02/27/2023 Component Date Value Ref Range Status Note to Patient 02/27/2023 Final Value:This result contains rich text formatting which cannot be displayed here. Final Diagnosis 02/27/2023 Final Value:This result contains rich text formatting which cannot be displayed here. Diagnosis Comment 02/27/2023 Final Value:This result contains rich text formatting which cannot be displayed here. Attestation 02/27/2023 By the signature below, the attending physician certifies that they have personally conducted a gross and/or microscopic examination of the described specimens and rendered or confirmed the above diagnosis. Final Clinical History 02/27/2023 Final Value:This result contains rich text formatting which cannot be displayed here. Gross Description 02/27/2023 Final Value:This result contains rich text formatting which cannot be displayed here. Performing Lab 02/27/2023 Final Value:This result contains rich text formatting which cannot be displayed here. Assessment: 82yo F with right breast invasive ductal carcinoma, >2cm, with suspicious axillary lymph nodes. No signs of distant spread on cross-sectional imaging and bone scan. Discussed at tumor board on 03/06/23 and consensus for up-front surgery followed by adjuvant therapies Plan: 1. I recommend proceeding with right breast partial mastectomy (lumpectomy) with sentinel lymph node biopsy. Treatment alternatives were discussed. 2. Discussed aspects of surgical intervention, methods, risks (including but not limited to infection, bleeding, hematoma, and need for re-excision and recurrence) and the risks of general anestheticincluding AK, CVA, sudden or even reaction to anesthetic medications. The patient understandsthe risks, any and all questions were answered to the patient's satisfaction. 3. Patient does wish to proceed with surgery. Written consent was obtained. We will schedule surgery for next week, 03/13/23. All questions answered to the best of my ability. Haseeb Craig MD General Surgery documented in this encounter Plan of Treatment Upcoming Encounters Date Type Department Care Team (Late st Contact Info) Description 05/19/2024 11:00 EST Office Visit [facility] Family Medicine [facility] [address] [facility], [facility] [address] [place] [address] Dane Rick MD [address] [place] [address] [address] [place] [address] Scheduled Orders Name Type Priority Associated Diagnoses Orde r Schedule NM INJECTION ONLY SENTINEL NODE BREAST Imaging Routine Invasive ductal carcinoma of right breast (HCC-CMS) Expected: 03/13/2023, Expires: 03/08/2024 MA BREAST SPECIMEN ONLY RIGHT Imaging Routine Invasive ductal carcinoma of right breast (HCC-CMS) Expected: 03/13/2023 (Approximate), Expires: 03/08/2025 documented as of this encounter Visit Diagnoses Diagnosis Mass of upper outer quadrant of right breast- Primary 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
--- OUTSIDE RECORDS SUMMARY | 2024-02-08 01:08 | XMS_ITS | Encounter Summary ---
Author Organization [facility] Address [address] [place] [address] Care Team Providers Care Spikemaking Supervisor Name Role Phone Vicky Chamberlain Unavailable [phone] Dane Rick MD Primary Care Provider [phone] Reason for Visit * Reason Onset Date Comments Breast Cancer 03/23/2023 Appointment Related 03/23/2023 Encounter Details Date Type Department Care Team ([facility] Contact Info) Description 03/23/2023 Telephone [facility] [facility] [address] [facility], [address] [place] [address] Dane Rick MD [address] [place] [address] Breast Cancer; Appointment Related Social History Tobacco Use Types [...] encounter Miscellaneous Notes * Telephone Encounter - Milton Mcnally RN - 03/23/2023 3000 EST Scheduled pt in for Pre op visit on 04/03/23 * Telephone Encounter - Dane Rick MD - 03/23/2023 1501 EST Pre-op assessment would need to be an in-person visit. * Telephone Encounter - Milton Mcnally RN - 03/23/2023 1407 EST JI- EKG admin 01/19/23, VS from last OV stable 03/08/23. Does pt need Pre-op Visit * Telephone Encounter - Arvind Mcdonald - 03/23/2023 [address] Lieberman' office at [facility] called and states that they saw patient for a consult/second opinion for breast cancer and they are planning to do a partial mastectomy and they are wondering if ather last visit everything was good for her to be cleared for surgery or if she will need a Pre-op. They need a medical clearance for this- last OV note and an additional message stating okay to proceed with anesthesia for general surgery would be sufficient and a recent EKG as well. Please advise. documented in this encounter Plan of Treatment Upcoming Encounters Date Type Department Care Team (Late st Contact Info) Description 05/19/2024 11:00 EST Office Visit [facility] Family Medicine - [address], [address] [place] [address] Dane Rick MD [address] [facility] [address] [place] [address] documented as of this encounter Visit Diagnoses Not on filedocumented in this encounter Care Teams Spikemaking Supervisor Relationship Specialty Start Date End Date Dane Rick MD [address] [place] [phone] PCP - General Family Medicine - Primary Care 08/09/22 Vicky Chamberlain [facility] [address] Project Manager 06/12/22 01/22/24 documented as of this encounter
--- OUTSIDE RECORDS SUMMARY | 2024-02-08 01:08 | XMS_ITS | Encounter Summary ---
Author Organization [facility] Address [address] [place] [address] Care Team Providers Care Aerial Erector Name Role Phone Vicky Chamberlain Unavailable [phone] Dane Rick MD Primary Care Provider [phone] Encounter Details Date Type Department Care Team ([facility] st Contact Info) Description 02/20/2023 Orders Only [facility] [place] [address] [place] [address] Shiv Batres Social History Tobacco Use Types Packs/Day Years [...] Info) Description 05/19/2024 11:[address] [facility] Family Medicine [address], [address] [place] [address] Dane Rick MD [address] [facility] [address] [place] [address] documented as of this encounter Visit Diagnoses Not on filedocumented in this encounter Care Teams Aerial Erector Relationship Specialty Start Date End Date Dane Rick MD [address] [place] [phone] PCP - General Family Medicine - Primary Care 08/09/22 Vicky Chamberlain, [facility] Remote Broadcast Engineer 06/12/22 01/22/24 documented as of this encounter
--- OUTSIDE RECORDS SUMMARY | 2024-02-08 01:08 | XMS_ITS | Encounter Summary ---
Author Organization [facility] Address [address] [place] [address] Care Team Providers Care Manager Golf Name Role Phone Vicky Chamberlain Unavailable [phone] Dane Rick MD Primary Care Provider [phone] Leticia Lieberman Unavailable Mendoza Guzmán MD Unavailable [phone] Reason for Visit * Reason Onset Date Comments Coordination Of Care 04/09/2023 Encounter Details Date Type Department Care Team (Late st Contact Info) Description 04/09/2023 Telephone [facility] [address] [place] [address] Vicky Chamberlain LICSW [address] [facility] [address] [phone] Coordination Of Care Social History Tobacco Use [...] encounter Miscellaneous Notes * Telephone Encounter - Vicky Chamberlain LICSW - 04/09/2023 1346 EST Duplicate note - Elisabet from [facility] General Surgery calls requesting Pre-Op note from 03/29/23 and EKG from 01/18/23 to be faxed to [phone]. Message completed by Milton Mcnally RN in separate TE documented in this encounter Plan of Treatment Upcoming Encounters Date Type Department Care Team (Late st Contact Info) Description 05/19/2024 11:00 EST Office Visit [facility] Family Medicine [address], [facility] [address] [place] [address] Dane Rick MD [address] [place] [address] [address] [place] [phone] documented as of this encounter Visit Diagnoses Not on filedocumented in this encounter Care Teams Manager Golf Relationship Specialty Start Date End Date Dane Rick MD [address] [place] [address] [address] [place] [address] PCP - General Family Medicine - Primary Care 08/09/22 Vicky Chamberlain LICSW Manager Medical 06/12/22 01/22/24 Leticia Lieberman [address] [place] [phone] General Surgery 04/03/23 Mendoza Guzmán MD [address] [place] [address] [address] [place] [address] Otolaryngology 04/03/23 documented as of this encounter
--- OUTSIDE RECORDS SUMMARY | 2024-02-08 01:08 | XMS_ITS | Encounter Summary ---
Author Organization [facility] Address [address] [place] [address] Care Team Providers Care Doubling Machine Operator Name Role Phone Vicky Chamberlain Unavailable [phone] Dane Rick MD Primary Care Provider [phone] Reason for Visit * Reason Comments New Patient Visit Encounter Details Date Type Department Care Team ([facility] Contact Info) Description 02/27/2023 11:10 EST Office Visit [facility] ENT [address] [place] [address] Mendoza Guzmán MD [address] [facility] [address] [place] [address] Thyroid nodule (Primary Dx) Social History Tobacco Use Types Packs/Day Years Used Date Smoking Tobacco: Never Smokeless Tobacco: Never Tobacco Cessation:Counseling Given: No Alcohol Use Standard Drinks/Week Comments Yes 0 [...] slept in a halfway (including now)? No 05/02/2022 Interpersonal Safety Answer Date Record ed How often does anyone, elaina gutierrez family, hit, punch or physically hurt you? Never 05/02/2022 How often does anyone, torreysumit brenda family, [...] Pressure - - Pulse - - Temperature 36.1 ??C (96.9 ??F) 02/27/2023 1111 EST Respiratory Rate - - Oxygen Saturation - - Inhaled Oxygen Concentration - - Weight 66.9 kg (147 lb 8 oz) 02/27/2023 1111 EST Height 149.9 cm (4' 11) 02/27/2023 1111 EST Body Mass Index 29.79 02/27/2023 1111 EST documented in this encounter Functional Status [...] as of this encounter Progress Notes * Mendoza Guzmán MD - 02/27/2023 1110 EST Images from the original note were not included. Attached media from the original note were not included. Procedure: Ultrasound-guided FNA left thyroid nodule Indications: 82-year-old female with an enlarging left inferior thyroid nodule 3.4 cm category 4. ??? Informed consent:I explained the procedure, as well as benefits of the procedure, alternative treatments, and consequences of no treatment to patient. ??? Verbal consent for the procedure was obtained. ??? A pre-procedure verification was conducted prior to the procedure. ??? Final verification/timeout immediately prior to procedure has been conducted by the attending provider, including all members of the procedural team as appropriate to their involvement in the procedure. ??? The patient's identity, procedure, and when applicable the: side/site, patient position, availability of special equipment or special requirements was verbally confirmed prior to the procedure. Procedure: Prior ultrasounds were read and reviewed. The patient was placed in a supine position with the neck extended. The skin was prepped. Ultrasound was performed and the left thyroid nodules identified. The skin was marked. Local anesthesia lidocaine with epinephrine 0.2 mL was injected. Using ultrasound guidance fine-needle aspirate biopsy was performed x3. Specimens were sent to cytology.The patient tolerated procedure well with no complications. Patient follow-up in 1 week for FNA results. documented in this encounter Plan of Treatment Upcoming Encounters Date Type Department Care Team (Late st Contact Info) Description 05/19/2024 11:00 EST Office Visit [facility] Family Medicine [address], [address] [place] [address] Dane Rcik MD [address] [place] [address] [address] [place] [address] documented as of this encounter Procedures Procedure Name Priority Date/Time Associated Diagnosis Comments NON PASTE UP COPY CAMERA OPERATOR/FNA CYTOLOGY Routine 02/27/2023 11:21 EST Thyroid nodule documented in this encounter Results * NON PASTE UP COPY CAMERA OPERATOR/FNA CYTOLOGY (02/27/2023 11:21 EST) Note to Patient The following pathology results have been interpreted by your pathologist and may be available to you before your health provider has had the opportunity to review them. Please allow time for your provider to receive these results and explore management options, if applicable. 02/28/2023 15:52 [facility] Final Diagnosis A. THYROID, LEFT LOBE, NODULE, ULTRASOUND-DAHIANA DED FINE NEEDLE ASPIRATION: - Features consistent with a benign follicular nodule. See comment. 02/28/2023 15:52 [facility] Diagnosis Comment The smears show scattered groups of variably sized bland follicular cells with abundant admixed colloid. No papillary nuclear features or overt nuclear atypia are seen. The ThinPrep slide is reviewed and shows colloid with rare bland follicular cell groups. The collective findings are consistent with a benign follicular nodule. 02/28/2023 15:52 [facility] Attestation By the signature below, the attending physician certifies that they have personally conducted a gross and/or microscopic examination of the described specimens and rendered or confirmed the above diagnosis. 02/28/2023 15:52 [facility] at 1552 Clinical History Left thyroid nodule 02/28/2023 15:52 [facility] Gross Description A. 2 fixed prepared slides, 2 air dried prepared slides, and 1 tube of CytoLyt were received and processed by selective cellular enhancement technique. Thyroseq tube received - hold for additional testing. 02/28/2023 15:52 [facility] Performing Lab [facility] 02/28/2023 15:52 [facility] Scanned Images 02/28/2023 15:52 [facility] Fine Needle Aspirate STRUCTURE OF LEFT LOBE OF THYROID GLAND / Unknown 02/27/2023 11:21 EST 02/27/2023 11:22 EST Mendoza Guzmán MD PATHOLOGY ORDERABLES [facility] [address] [place] [address] documented in this encounter Visit Diagnoses Diagnosis Thyroid nodule- Primary Nontoxic uninodular goiter documented in this encounter Administered Medications Inactive Administered Medications - up to 3 most recent administrations Medication Order MAR Action Action Date Dose Rate Site lidocaine-Epinephrine Bit 2 %-1:100,000 injection cartridge 1.7 mL 1.7 mL, injection, NOW X1, 1 dose, On 02/27/23 at 1145, Routine Given 02/27/2023 11:30 EST 1.7 mL documented in this encounter Care Teams Doubling Machine Operator Relationship Specialty Start Date End Date Dane Rick MD [address] [place] [phone] PCP - General Family Medicine - Primary Care 08/09/22 Vicky Chamberlain, [facility] Care Management Associate 06/12/22 01/22/24 documented as of this encounter
--- OUTSIDE RECORDS SUMMARY | 2024-02-08 01:08 | XMS_ITS | Encounter Summary ---
Author Organization [facility] Address [address] [place] [address] Care Team Providers Care Coding Compliance Manager Name Role Phone Vicky Chamberlain Unavailable [phone] Dane Rick MD Primary Care Provider [phone] Leticia Lieberman Unavailable Mendoza Guzmán MD Unavailable [phone] Reason for Referral * Consult (Routine/Next Available) - Closed Specialty Diagnoses / Procedures Referred By [facility] Referred To Contact Radiation Oncology Diagnoses Malignant neoplasm of upper-outer quadrant of right breast in female, estrogen receptor positive (HCC-CMS) Xu Hendrix MD [address] [facility], [facility] [address] [place] [address] [facility] [address] [place] [address] Referral ID Status Reason Start Date Expiration Date V isits Requested Visits Authorized [id number] Closed Specialty Services Required 03/12/2023 1 0 Question Answer Reason for Request: breast ca undergoing lumpectomy Reason for Visit * Reason Onset Date Comments Update 03/12/2023 Encounter Details Date Type Department Care Team ([facility] Contact Info) Description 03/12/2023 Telephone [facility] Adult Hematology & Oncology [address] [place] [address] Xu Hendrix MD [address] [place] [address], [facility] [phone] Update Social History Tobacco Use Types Packs/Day [...] place to sleep or slept in a custodial (including now)? No 03/15/2023 Interpersonal Safety Answer [...] encounter Miscellaneous Notes * Telephone Encounter - Gill Aldridge RN - 03/12/2023 1324 EST Patients surgery scheduled for 03/13/23 Will need follow up with Dr. Hendrix in 2 weeks. * Telephone Encounter - Xu Hendrix MD - 03/12/2023 1254 EST Spoke to patient she was upset as she got a call from surgery stating that she is scheduled for hernia repair tomorrow. I spoke to her in detail regarding risks vs benefits of lumpectomy vs mastectomy. She has plenty ofquestion regarding the need for radiation which I answered to her satisfaction. She was thinking of second opinion at [facility] which I encouraged but she stated that she is okay goingforward with surgery as she doesn't even have an appt with [facility] yet. I discussed of setting her up with radiation oncology and follow wit me 2 weeks after surgery. She had many questions regarding surgery itself which I answered to best of my knowledge. Patient agreed to move forward with lumpectomy for now. Xu Hendrix MD Hematology/Oncology documented in this encounter Plan of Treatment Upcoming Encounters Date Type Department Care Team (Late st Contact Info) Description 05/19/2024 11:00 EST Office Visit [address], [facility] 2 [place] [address] Dane Rick MD [address] [place] [address] 2 [place] [address] Scheduled Referrals Name Type Priority Associated Diagnoses Order Schedule AMB CONS/FOLLOW UP RADIATION ONCOLOGY Outpatient Referral Routine/Next Available Malignant neoplasm of upper-outer quadrant of right breast in female, estrogen receptor positive (HCC-CMS) Expected: 03/19/2023 (Approximate), Expires: 03/12/2024 documented as of this encounter Visit Diagnoses Diagnosis Malignant neoplasm of upper-outer quadrant of right breast in female, estrogen receptor positive (HCC-CMS)- Primary documented in this encounter Additional Health Concerns Infection Onset Date Last Indicated Resolved Time R/O COVID-19 08/13/2023 08/13/2023 08/13/2023 20:0 7 EDT documented as of this encounter Care Teams Coding Compliance Manager Relationship Specialty Start Date End Date Dane Rick MD [address] [place] [phone] PCP - General Family Medicine - Primary Care 08/09/22 Vicky Chamberlain [facility] Senior Analytic Consultant 06/12/22 01/22/24 Leticia Lieberman [address] [place] [phone] General Surgery 04/03/23 Mendoza Guzmán MD [address] [place] [address] [address] [place] [address] Otolaryngology 04/03/23 documented as of this encounter
--- OUTSIDE RECORDS SUMMARY | 2024-02-08 01:08 | XMS_ITS | Encounter Summary ---
Author Organization [facility] Address [address] [place] [address] Care Team Providers Care Department Store Manager Name Role Phone Vicky Chamberlain BLUE [employer]INTS TRIMMER Unavailable [phone] Dane Rick MD Primary Care Provider [phone] Reason for Referral * Radiology Services (Routine/Next Available) - Authorization Not Required Specialty Diagnoses / Procedures Referred By Contac t Referred To Contact Diagnoses Malignant neoplasm of upper-outer quadrant of right breast in female, estrogen receptor positive (HCC-CMS) Procedures CT CHEST W CONTRAST Xu Hendrix MD [address] [place] [address], [facility] [address] [place] [address] [facility] Referral ID Status Reason Start Date Expiration Date Visits Requested Visits Authorized [id number] Authorization Not Required 3 1 1 * Radiology Services (Routine/Next Available) - Authorization Not Required Specialty Diagnoses / Procedures Referred By Contac t Referred To Contact Diagnoses Malignant neoplasm of upper-outer quadrant of right breast in female, estrogen receptor positive (HCC-CMS) Procedures CT ABDOMEN PELVIS W CONTRAST Xu Hendrix MD [facility], [facility] [address] [place] [address] [facility] Referral ID Status Reason Start Date Expiration Date Visits Requested Visits Authorized [id number] Authorization Not Required 3 1 1 Reason for Visit * Radiology Services (Routine/Next Available) - Authorization Not Required Specialty Diagnoses / Procedures Referred By Contac t Referred To Contact Diagnoses Malignant neoplasm of upper-outer quadrant of right breast in female, estrogen receptor positive (HCC-CMS) Procedures CT ABDOMEN PELVIS W CONTRAST Xu Hendrix MD [address], [facility] [address] [place] [address] [facility] Referral ID Status Reason Start Date Expiration Date Visits Requested Visits Authorized [id number] Authorization Not Required 3 1 1 Encounter Details Date Type Department Care Team (Latest Contact Info) Description 03/02/2023 10:49 EST Hospital Encounter [facility] CT Scan [address] [place] [address] Malignant neoplasm of upper-outer quadrant of right breast in female, estrogen receptor positive (HCC-CMS) Discharge Disposition: Home or Self Care Social [...] place to sleep or slept in a mcfp (including now)? No 05/02/2022 Interpersonal Safety Answer [...] No 03/21/2021 documented as of this encounter Medications at Time of Discharge Medication Sig Dispensed Refills Start Date End Date aspirin 81 mg EC tablet Take 1 Tablet by mouth every 48 hours. 09/19/2022 doxycycline (VIBRA-TABS) 100 mg tablet 12/25/2022 04/03/2023 ergocalciferol, vitamin D2, (VITAMIN D ORAL) Take 1 Tablet by mouth daily at 1200. 01/22/2024 furosemide (LASIX) 20 mg tablet TAKE 2 TABLETS BY MOUTH ONCE DAILY IN THE MORNING AND 1 IN THE AFTERNOON 270 Tablet 09/19/2022 04/03/2023 hydrOXYzine (ATARAX) 25 mg tablet Take 1 Tablet by mouth 3 times daily as needed for Itching. 60 Tablet 09/19/2022 01/29/2024 losartan (COZAAR) 100 mg tablet Take 1 Tablet by mouth daily. 90 Tablet 1 12/26/2022 08/14/2023 MAGNESIUM GLUCONATE ORAL Take 1 Tablet by mouth daily at 1200. 01/29/2024 documented as of this encounter Discharge Disposition Disposition Code Departure Means Destination Home or Self Care documented in this encounter Plan of Treatment Upcoming Encounters Date Type Department Care Team (Late st Contact Info) Description 05/19/2024 11:00 EST Office Visit [facility] [address] [facility], [address] [place] [address] Dane Rick MD [address] [place] [address] [address] [place] [address] documented as of this encounter Procedures Procedure Name Priority Date/Time Associated Diagnosis Comments CT CHEST W CONTRAST Routine 03/02/2023 1 1:45 EST Malignant neoplasm of upper-outer quadrant of right breast in female, estrogen receptor positive (HCC-CMS) CT ABDOMEN PELVIS W CONTRAST Routine 03/02/2023 11:45 EST Malignant neoplasm of upper-outer quadrant of right breast in female, estrogen receptor positive (HCC-CMS) documented in this encounter Results * CT CHEST W CONTRAST (03/02/2023 11:45 [...] REGARDING THIS REPORT PLEASE CALL [facility] AT [phone] [facility] 03/05/2023 13:32 EST PROCEDURE INFORMATION: Exam: CT [...] CONCERNS REGARDING THIS REPORT PLEASE CALL [facility] [phone] Xu Hendrix MD IMG CT ORDERABLES * [...] in the chest. COMMENTS: Consistent with the [employer]'s Incidental Findings Committee white [...] REGARDING THIS REPORT PLEASE CALL [facility] AT [phone] Narrative 03/05/2023 13:35 EST PROCEDURE INFORMATION: Exam: CT [...] in the chest. COMMENTS: Consistent with the [employer]'s Incidental Findings Committee white [...] CONCERNS REGARDING THIS REPORT PLEASE CALL [facility] [phone] Xu Hendrix MD IMG CT ORDERABLES documented in this encounter Visit Diagnoses Diagnosis Malignant neoplasm of upper-outer quadrant of right breast in female, estrogen receptor positive (HCC-CMS) documented in this encounter Administered Medications Inactive Administered Medications - up to 3 most recent administrations Medication Order MAR Action Action Date Dose Rate Site iohexoL (OMNIPAQUE 350) solution 100 mL 100 mL, intravenous, Once in imaging, 1 dose, Starting on Sun03/02/23 at 1144, Until Sun03/02/23 at 1146, Routine, Imaging Protocol Orders Given 03/02/2023 11:46 EST 100 mL documented in this encounter Care Teams Department Store Manager Relationship Specialty Start Date End Date Dane Rick MD [address] [place] [phone] PCP - General Family Medicine - Primary Care 08/09/22 Vicky Chamberlain [facility] Mechanical Systems Control Engineer 06/12/22 01/22/24 documented as of this encounter
--- OUTSIDE RECORDS SUMMARY | 2024-02-08 01:08 | XMS_ITS | Encounter Summary ---
Author Organization [facility] Address [address] [place] [address] Care Team Providers Care Broker In Charge Name Role Phone Vicky Chamberlain Unavailable [phone] Dane Rick MD Primary Care Provider [phone] Leticia Lieberman Unavailable Mendoza Guzmán MD Unavailable [phone] Reason for Visit * Reason Onset Date Comments Follow-up 04/04/2023 Preop evaluation Medical Records 04/04/2023 Encounter Details Date Type Department Care Team (Late st Contact Info) Description 04/04/[address] [facility] [place] [facility] [place] [address], [facility] 2 [place] [address] Ralf Mattson MD [address] [place] [address] [address] [place] [address] Follow-up (Preop evaluation); Medical Records Social History Tobacco Use Types Packs/Day Years [...] place to sleep or slept in a retirement (including now)? No 03/15/2023 Interpersonal Safety Answer [...] encounter Miscellaneous Notes * Telephone Encounter - Mrata Oh - 04/12/2023 0910 EST Elisabet calling from [facility] General Surgery, they never got ECG/EKG result. Faxed this along with ECG report to [phone]. * Telephone Encounter - Radha Carmen - 04/09/2023 1432 EST Re faxed to [phone]. * Telephone Encounter - [place] Mcnally, HARINDER - 04/09/2023 1344 EST Can these please be re faxed to [phone]. Please and thank you. * Telephone Encounter - Radha Carmen - 04/06/2023 0946 EST Faxed to . * Telephone Encounter - Ralf Mattson MD - 04/04/2023 2007 EST Please fax a copy of the note from the preop evaluation from 04/03/2023 to [facility] Dr. Leticia Lieberman documented in this encounter Plan of Treatment Upcoming Encounters Date Type Department Care Team (Late st Contact Info) Description 05/19/2024 11:00 EST Office Visit [facility] Family Medicine [address], [address] [address] Dane Rick MD [address] [place] [address] 2 [place] [address] documented as of this encounter Visit Diagnoses Not on filedocumented in this encounter Care Teams Broker In Charge Relationship Specialty Start Date End Date Dane Rick MD [address] [place] [address] PCP - General Family Medicine - Primary Care 08/09/22 Vicky Chamberlain [facility] Photographic Spotter 06/12/22 01/22/24 Leticia Lieberman [address] [place] [phone] General Surgery 04/03/23 Mendoza Guzmán MD [address] [place] [address] [address] [place] [phone] Otolaryngology 04/03/23 documented as of this encounter
--- OUTSIDE RECORDS SUMMARY | 2024-02-08 01:08 | XMS_ITS | Encounter Summary ---
Author Organization [facility] Address [address] [place] [address] Care Team Providers Care End Frazer Name Role Phone Vicky Chamberlain Unavailable [phone] Dane Rick MD Primary Care Provider [phone] Leticia Lieberman Unavailable Mendoza Guzmán MD Unavailable [phone] Reason for Visit * Reason Onset Date Comments Discuss Surgery 03/23/2023 Encounter Details Date Type Department Care Team (Late st Contact Info) Description 03/23/2023 Telephone [facility] [place] [facility] [place] [address] [place] [address] Xu Hendrix MD [address] [place] [address] [address] [place] [address] Discuss Surgery Social History Tobacco Use Types Packs/Day Years [...] encounter Miscellaneous Notes * Telephone Encounter - Genna Stark - 03/23/[address] Hendrix please give Leticia Lieberman MD, from [facility], a call at [phone]. Dr Lieberman has some questions about what was discussed at the tumor board about patients lymph nodes. documented in this encounter Plan of Treatment Upcoming Encounters Date Type Department Care Team (Late st Contact Info) Description 05/19/2024 11:00 EST Office Visit [address], [facility] 2 [place] [address] Dane Rick MD [address] [place] [address] 2 [place] [address] documented as of this encounter Visit Diagnoses Not on filedocumented in this encounter Additional Health Concerns Infection Onset Date Last Indicated Resolved Time R/O COVID-19 08/13/2023 08/13/2023 08/13/2023 20:0 7 EDT documented as of this encounter Care Teams End Frazer Relationship Specialty Start Date End Date Dane Rick MD [address] [place] [address] 2 [place] [address] PCP - General Family Medicine - Primary Care 08/09/22 Vicky Chamberlain [facility] Group Fitness Assistant Department Head 06/12/22 01/22/24 Leticia Lieberman [address] [place] [phone] General Surgery 04/03/23 Mendoza Guzmán MD [address] [place] [address] [address] [place] [address] Otolaryngology 04/03/23 documented as of this encounter
--- OUTSIDE RECORDS SUMMARY | 2024-02-08 01:08 | XMS_ITS | Encounter Summary ---
Author Organization [facility] Address [address] [place] [address] Care Team Providers Care Environmental Solutions Engineer Name Role Phone Vicky Chamberlain Unavailable [phone] Dnae Rick MD Primary Care Provider [phone] Leticia Lieberman Unavailable Mendoza Guzmán MD Unavailable [phone] Encounter Details Date Type Department Care Team (Late st Contact Info) Description 04/06/[address] [facility] Family Medicine - [facility] [address] [place] [address] Vicky Chamberlain LICSW [address] [address] Social History Tobacco Use Types [...] this encounter Progress Notes * Vicky Chamberlain, GLASS VIAL BENDING CONVEYOR FEEDER - 04/06/2023 1044 EST [facility] Care Management Follow Up Product Support Representative followed up with Kenyatta by phone for care management. TOPIC OF CONVERSATION: Reviewed assessment and plan from previous visit with patient. Engaged patient in conversation related to positive behavior change, self- management, goal setting and action planning using motivational interviewing and active listening. Kenyatta calls this CM requesting clarification about appointments and insurance CM made outgoing call to [facility], General Surgery and spoke with Elisbaet their production planner scheduler. Confirmed surgery and post-op appointments at [facility] listed in the chart 04/16, arrival at 8:15am 04/17 at 11:00 am CM reviewed [place] Medicaid Portal and clarified with Kenyatta that she has Medicare and a [place] Medicaid discount assistance program. Regarding previous notes, Kenyatta received a letter approving accomodation of two bedroom apartment, Kenyatta will not need torelocate Prioritized Patient Identified Goals: Kenyatta will attend surgery and post op appointments as scheduled. Achievement towards goals: In progress Plan: One month follow up Next Product Support RepresentativeAir Hoist Operator: 05/03/2023 LATRICE ENCISO 04/06/2023 11:01 documented in this encounter Plan of Treatment Upcoming Encounters Date Type Department Care Team (Late st Contact Info) Description 05/19/2024 11:[address] [facility] Family Medicine [address], [facility] 2 [place], [place] [phone] Dane Rick MD [address] [place] [address] [address] [place] [phone] documented as of this encounter Visit Diagnoses Not on filedocumented in this encounter Care Teams Environmental Solutions Engineer Relationship Specialty Start Date End Date Dane Rick MD [address] [place] [address] 2 [place] [address] PCP - General Family Medicine - Primary Care 08/09/22 Vicky Chamberlain LICSW Product Support Representative 06/12/22 01/22/24 Leticia Lieberman [address] [place] [phone] General Surgery 04/03/23 Mendoza Guzmán MD [address] [place] [phone] Otolaryngology 04/03/23 documented as of this encounter
--- OUTSIDE RECORDS SUMMARY | 2024-02-08 01:08 | XMS_ITS | Encounter Summary ---
Author Organization [facility] Address [address] [place] [address] Care Team Providers Care Collection Systems Technician Name Role Phone Vicky Chamberlain Unavailable [phone] Dane Rick MD Primary Care Provider [phone] Reason for Visit * Reason Onset Date Comments Follow-up Diagnostic PSG 02/23/2023 Discuss Possible Transfer 02/23/2023 Encounter Details Date Type Department Care Team ([facility] Contact Info) Description 02/23/2023 Telephone [facility] Family Medicine [address], [place] [address] [place] [address] Dane Rick MD [address] [facility] [address] [place] [address] Follow-up Diagnostic PSG; Discuss Possible Transfer Social History Tobacco Use Types Packs/Day Years [...] * Telephone Encounter - Marta Oh - 03/14/2023 1107 EST Patient is in the process of transferring care to [facility]. We uploaded HIM Medical records Release (03/14) form she will need to complete for HIM to send records to [facility]. * Telephone Encounter - Dane Rick MD - 02/24/2023 1620 EST Please enquire what issues patient would like to discuss at this visit She has referrals placed to see the oncologist and breast surgeons based on her breast biopsy results * Telephone Encounter - Elisabet Luis RN - 02/23/2023 1000 EST Pt had a bx on 02/09 It took many conversations with patient to have her go to this appmt. Now has ov dec 7 * Telephone Encounter - Nedra Veras - 02/23/2023 0937 EST FYI - Patient called upset about the valentian care she is receiving. Advises she should not have to wait 3 weeks for a mammo after being told there was a problem. Feels she is being neglected. She was advised to call the offices of the specialist she is seeing or needs to see to go over her concerns. Patient is adamant that she needs to see JI soon because she will likely not be around if she waits for her appt with him in April. I found an appt in March for her. She asked that a message get sent to [facility]. She would not tell me what if any other issues she's having besides the lack of treatment she feels she is receiving, but was adamant that she had other issues to discuss documented in this encounter Plan of Treatment Upcoming Encounters Date Type Department Care Team (Late st Contact Info) Description 05/19/2024 11:00 EST Office Visit [facility] Family Medicine [facility] [address], [place] [address] [place] [address] Dane Rick MD [address] [place] [phone] documented as of this encounter Visit Diagnoses Not on filedocumented in this encounter Care Teams Collection Systems Technician Relationship Specialty Start Date End Date Dane Rick MD [address] [place] [phone] PCP - General Family Medicine - Primary Care 08/09/22 Vicky Chamberlain [facility] Lecturer In Marketing 06/12/22 01/22/24 documented as of this encounter
--- OUTSIDE RECORDS SUMMARY | 2024-02-08 01:08 | XMS_ITS | Encounter Summary ---
Author Organization [facility] Address [address] [place] [address] Care Team Providers Care Facility Attendant Name Role Phone Vicky Chamberlain Unavailable [phone] Dane Rick MD Primary Care Provider [phone] Leticia Lieberman Unavailable Mendoza Guzmán MD Unavailable [phone] Reason for Visit * Reason Onset Date Comments Coordination Of Care 05/03/2023 Encounter Details Date Type Department Care Team (Late st Contact Info) Description 05/03/2023 Telephone [facility] [place] - [facility] [address] [place] [address] Vicky Chamberlain LICSW 130 [facility] [address] [phone] Coordination Of Care Social History Tobacco Use [...] encounter Miscellaneous Notes * Telephone Encounter - Joie Garcia - 05/04/2023 0843 EST Appt cancelled. * Telephone Encounter - Vicky Chamberlain LICSW - 05/03/2023 1653 EST Kenyatta has chosen to work with [facility] for Oncology please cancel 05/09/23 appointment Thank you documented in this encounter Plan of Treatment Upcoming Encounters Date Type Department Care Team (Late st Contact Info) Description 05/19/2024 11:00 EST Office Visit [facility] Family Medicine [address], [facility] 2 [place] [address] Dane Rick MD [address] [place] [address] 2 [place] [phone] documented as of this encounter Visit Diagnoses Not on filedocumented in this encounter Care Teams Facility Attendant Relationship Specialty Start Date End Date Dane Rick MD [address] [place] [address] 2 [place] [phone] PCP - General Family Medicine - Primary Care 08/09/22 Vicky Chamberlain LICSW Scratcher 06/12/22 01/22/24 Leticia Lieberman [address] [place] [phone] General Surgery 04/03/23 Mendoza Guzmán MD [address] [place] [address] [address] [place] [address] Otolaryngology 04/03/23 documented as of this encounter
--- OUTSIDE RECORDS SUMMARY | 2024-02-08 01:08 | XMS_ITS | Encounter Summary ---
Author Organization [facility] Address [address] [place] [address] Care Team Providers Care Purchasing And Claims Supervisor Name Role Phone BulmaroVicky LATRICE Unavailable [phone] Dane Rick MD Primary Care Provider [phone] Encounter Details Date Type Department Care Team ([facility] st Contact Info) Description 03/19/2023 Patient Outreach [facility] Family Medicine - [facility] [address] [place] [phone] Vicky Chamberlain LICSW 130 [facility] [address] [place] [address] Social History Tobacco Use Types [...] this encounter Progress Notes * Vicky Chamberlain, REPORT MANAGER - 03/19/2023 1358 EST [facility] Typesetting Machine Operator/Tender Care Coordination Typesetting Machine Operator/Tender spoke with Kenyatta on 03/19/23 in order to coordinate care. Kenyatta call this CM, states that she received an eviction letter, she has paperwork from [facility] and is looking for someone to speak with regarding the paperwork, I have called many numbers and no one is answering she also states that she has not discussed the paperwork with her daughter, Adriana. CM suggests that Kenyatta request her daughter give her a ride to the [facility] Authority site in [place] for further assistance. Kenyatta was anxious during this conversation, changing topic between losing her housing and findingnew housing. CM reflected that Kenyatta is under significant stress, with the anniversary of her 's ,recent diagnosis of breast cancer, housing eviction. PLAN: Cm available for ongoing support as needed. Kenyatta has appointment scheduled with [facility] on 03/22 for second opinion. Appointment on 03/30 with Oncology Next Typesetting Machine Operator/TenderCream Maker: 04/09/2023 LATRICE ENCISO 03/19/2023 13:59 documented in this encounter Plan of Treatment Upcoming Encounters Date Type Department Care Team (Late st Contact Info) Description 05/19/2024 11:00 EST Office Visit [facility] Family Medicine [address], [facility] 2 [place] [address] Dane Rick MD [address] [place] [phone] documented as of this encounter Visit Diagnoses Not on filedocumented in this encounter Care Teams Purchasing And Claims Supervisor Relationship Specialty Start Date End Date Dane Rick MD [address] [place] [phone] PCP - General Family Medicine - Primary Care 08/09/22 Vicky Chamberlain LICSW Typesetting Machine Operator/Tender 06/12/22 01/22/24 documented as of this encounter
--- OUTSIDE RECORDS SUMMARY | 2024-02-08 01:08 | XMS_ITS | Encounter Summary ---
Author Organization [facility] Address [address] [place] [address] Care Team Providers Care Chief Legal Officer Name Role Phone Vicky Chamberlain Unavailable [phone] Dane Rick MD Primary Care Provider [phone] Reason for Visit * Reason Onset Date Comments Referral Request 02/27/2023 Medical Records 02/27/2023 Encounter Details Date Type Department Care Team ([facility] Contact Info) Description 02/27/2023 Telephone [facility] [place] Medicine [address], [place] [address] [place] [address] Dane Rick MD [address] [place] [address] Referral Request; Medical Records Social History Tobacco Use Types [...] Telephone Encounter - Marta Oh - 03/14/2023 3049 EST See 02/23 message regarding medical records, pt needs signed records release to transfer to [facility] * Telephone Encounter - Elisabet Luis RN - 03/06/2023 1645 EST Can you please help with her records. * Telephone Encounter - Dottie Brooks - 03/05/2023 1604 EST Daughter sent an additional [employer] message checking the status of the referral and if it can be please be sent to [facility]. * Telephone Encounter - Arvind Mcdonald - 02/28/2023 1453 EST Form was dropped off, scanned to chart and placed in providers folder up front. * Telephone Encounter - Dottie Brooks - 02/27/2023 1524 EST Barron Rick, I would like to get a signed referral form for [facility] cancer center [place], [place] . I have the form and need you to sign it and also need my records sent to Dr Leticia Lieberman office. The fax number is [phone] documented in this encounter Plan of Treatment Upcoming Encounters Date Type Department Care Team (Late st Contact Info) Description 05/19/2024 11:00 EST Office Visit [facility] Family Medicine - [address], [facility] 2 [place] [address] Dane Rick MD [address] [facility] [address] [place] [address] documented as of this encounter Visit Diagnoses Not on filedocumented in this encounter Care Teams Chief Legal Officer Relationship Specialty Start Date End Date Dane Rikc MD [address] [place] [phone] PCP - General Family Medicine - Primary Care 08/09/22 Vicky Chamberlain, [facility] Clay Carman 06/12/22 01/22/24 documented as of this encounter
--- OUTSIDE RECORDS SUMMARY | 2024-02-08 01:08 | XMS_ITS | Encounter Summary ---
Author Organization [facility] Address [address] [place] [address] Care Team Providers Care Yard Loader Operator Name Role Phone Vicky Chamberlain Unavailable [phone] Dane Rick MD Primary Care Provider [phone] Leticia Lieberman Unavailable Mendoza Guzmán MD Unavailable [phone] Encounter Details Date Type Department Care Team (Late st Contact Info) Description 05/03/2023 Patient Outreach [facility] Family Medicine - [facility] [address] [place] [address] Vicky Chamberlain LICSW [address] [address] Social History Tobacco Use Types [...] place to sleep or slept in a assisted (including now)? No 03/15/2023 Interpersonal Safety Answer [...] this encounter Progress Notes * Vicky Chamberlain, FURNITURE PACKER - 05/03/2023 1701 EST [facility] Care Management Follow Up Studio Associate followed up with Kenyatta by phone for care coordination. TOPIC OF CONVERSATION: Reviewed assessment and plan from previous visit with patient. Engaged patient in conversation related to positive behavior change, self- management, goal setting and action planning using motivational interviewing and active listening. Medication reviewed: No new needs identified Social determinants of health needs reviewed: Discussed signing up for internet connectivity program, she will ask Adriana for assistance Gaps in community resources: Kenyatta discussed that she would like to find some activities, does not want to attend the [facility] center. Discussed [employer] online classes, sent website in text message Education provided on condition and/or disease: yes Kenyatta has been walking again, feeling better since the surgery; follow up last Sunday went well. Scheduled with Hem/Onc Narinder in [facility]. CM sent TE to cancel next week's appointment with [facility] Kenyatta has some other concerns to discuss with PCP She will call PCP office to schedule as needed, understands her current f/u is scheduled for 07/02/23 Prioritized Patient Identified Goals: Kenyatta will look into online classes for enrichment and will follow up with this CM for questions Achievement towards goals: In progress 2. Kenyatta will follow up with Adriana about discount cell phone service - Follow up with this CM for questions or clarification Achievement towards goals: In progress Plan: CM will be on vacation week of 05/28-06/03 Next Studio AssociateArchitectural Project Captain: 06/12/2023 LATRICE ENCISO 05/03/2023 17:01 documented in this encounter Plan of Treatment Upcoming Encounters Date Type Department Care Team (Late st Contact Info) Description 05/19/2024 11:00 EST Office Visit [facility] Family Medicine [facility] [address] [facility], [place] [address] [place], [place] [phone] Dane Rick MD [address] [facility] [address] [place] [address] documented as of this encounter Visit Diagnoses Not on filedocumented in this encounter Care Teams Yard Loader Operator Relationship Specialty Start Date End Date Dane Rick MD 246 [facility] 2 [place] [phone] PCP - General Family Medicine - Primary Care 08/09/22 Vicky Chamberlain [facility] Studio Associate 06/12/22 01/22/24 Leticia Lieberman [address] [place] [phone] General Surgery 04/03/23 Mendoza Guzmán MD [address] [place] [address] [address] [place] [address] Otolaryngology 04/03/23 documented as of this encounter
--- OUTSIDE RECORDS SUMMARY | 2024-02-08 01:08 | XMS_ITS | Encounter Summary ---
Author Organization [facility] Address [address] [place] [address] Care Team Providers Care Video Game Producer Name Role Phone Vicky Chamberlain Unavailable [phone] Dane Rick MD Primary Care Provider [phone] Reason for Visit * Reason Onset Date Comments Paperwork request 03/19/2023 Encounter Details Date Type Department Care Team ([facility] Contact Info) Description 03/19/2023 Telephone [facility] Family Medicine [address], [address] [place] [address] Dane Rick MD [address] [place] [phone] Paperwork request Social History Tobacco Use Types Packs/Day Years [...] place to sleep or slept in a long-term (including now)? No 03/15/2023 Interpersonal Safety Answer [...] * Telephone Encounter - Marta Oh - 03/20/2023 6430 EST Form scanned and mailed to [facility], pt notified. * Telephone Encounter - Dane Rick MD - 03/20/2023 1313 EST Signed and placed into POD[employer] outbox * Telephone Encounter - Marta Oh - 03/19/2023 1246 EST Patient dropped off [facility] paperwork for JI to review & sign. This paperwork is to explain the reason's why she needs to keep her 2 bedroom apartment she previously had with her who . She is under going cancer treatment and is very stressed. Form placed in provider's box up front. Once done, mail form directly to [facility] with envelope provided documented in this encounter Plan of Treatment Upcoming Encounters Date Type Department Care Team (Late st Contact Info) Description 05/19/2024 11:00 EST Office Visit [facility] Family Medicine [address], [facility] 2 [place] [address] Dane Rick MD [address] [place] [phone] documented as of this encounter Visit Diagnoses Not on filedocumented in this encounter Care Teams Video Game Producer Relationship Specialty Start Date End Date Dane Rick MD [address] [place] [phone] PCP - General Family Medicine - Primary Care 08/09/22 Vicky Chamberlain LICSW Mill Tender Washing 06/12/22 01/22/24 documented as of this encounter
--- OUTSIDE RECORDS SUMMARY | 2024-02-08 01:08 | XMS_ITS | Encounter Summary ---
Author Organization [facility] Address [address] [place] [address] Care Team Providers Care Pharmacy General Manager Name Role Phone Vicky ChamberlainSW Unavailable [phone] Dane Rick MD Primary Care Provider [phone] Reason for Visit * Radiology Services (Routine/Next Available) - Authorization Not Required Specialty Diagnoses / Procedures Referred By Franky ferreira Referred To Contact Nuclear Medicine Diagnoses Malignant neoplasm of upper-outer quadrant of right breast in female, estrogen receptor positive (HCC-CMS) Procedures NM BONE WHOLE BODY Xu Hendrix MD [address] [facility], [facility] [address] [place] [address] [facility] Referral ID Status Reason Start Date Expiration Date Visits Requested Visits Authorized [id number] Authorization Not Required 3 1 1 Encounter Details Date Type Department Care Team (Latest Contact Info) Description 03/02/2023 10:50 EST - 03/02/2023 23:59 EST Hospital Encounter [facility] - [facility] Nuclear Medicine [address] [place], [place] [phone] Discharge Disposition: Home or Self Care Social [...] Info) Description 05/19/2024 11:00 EST Office Visit [address], [facility] 2 [place] [address] Dane Rick MD [address] [place] [phone] documented as of this encounter Procedures Procedure Name Priority Date/Time Associated Diagnosis Comments NM BONE WHOLE BODY Routine 03/02/2023 14 :35 EST Malignant neoplasm of upper-outer quadrant of right breast in female, estrogen receptor positive (HCC-CMS) documented in this encounter Results * NM BONE WHOLE BODY (03/02/2023 14:35 EST) Anatomical Region Laterality Modality Nuclear Medicine 03/02/2023 14:4 7 EST Impressions 03/02/2023 14:47 EST 1. ??No convincing scintigraphic evidence of osseous metastatic disease. Please refer to the separately dictated CT chest abdomen pelvis reports of 03/02/2023 for additional findings and discussion. 2. ??Probable multifocal degenerative uptake, as detailed above. [id number] Narrative 03/02/2023 14:47 EST NM BONE WHOLE [...] of right breastin female, estrogen receptor positive ([facility]);Z17.0:Malignant neoplasmof upper-outer quadrant of right breast in [...] Probable multifocal degenerative uptake, as detailed above. [id number] Xu Hendrix MD [facility] [place] ORDERABLES documented in this encounter Visit Diagnoses Not on filedocumented in this encounter Care Teams Pharmacy General Manager Relationship Specialty Start Date End Date Dane Rick MD [address] [place] [phone] PCP - General Family Medicine - Primary Care 08/09/22 Vicky Chamberlain HOUSE CLEANER SUPERVISOR Energy Operations Vice President 06/12/22 01/22/24 documented as of this encounter
--- OUTSIDE RECORDS SUMMARY | 2024-02-08 01:08 | XMS_ITS | Encounter Summary ---
Author Organization [facility] Address [address] [place] [address] Care Team Providers Care Vp Digital Marketing Social Media And Crm Name Role Phone Vicky Chamberlain Unavailable [phone] Dane Rick MD Primary Care Provider [phone] Encounter Details Date Type Department Care Team (Latest Contact Info) Description 03/09/2023 Travel Social History Tobacco Use Types Packs/Day [...] slept in a assisted (including now)? No 05/02/2022 Interpersonal Safety Answer [...] Info) Description 05/19/2024 11:00 EST Office Visit [facility] Family Medicine [address] [place] [address] Dane Rick MD [address] [facility] [address] [place] [phone] documented as of this encounter Visit Diagnoses Not on filedocumented in this encounter Care Teams Vp Digital Marketing Social Media And Crm Relationship Specialty Start Date End Date Dane Rick MD [address] [place] [phone] PCP - General Family Medicine - Primary Care 08/09/22 Vicky Chamberlain, [facility] Rn Medical Surgical 06/12/22 01/22/24 documented as of this encounter
--- OUTSIDE RECORDS SUMMARY | 2024-02-08 01:08 | XMS_ITS | Encounter Summary ---
Author Organization [facility] Address [address] [place] [address] Care Team Providers Care It Software Engineer Name Role Phone Vicky Chamberlain Unavailable [phone] Dane Rick MD Primary Care Provider [phone] Leticia Lieberman Unavailable Mendoza Guzmán MD Unavailable [phone] Reason for Visit * Reason Onset Date Comments Other 03/12/2023 Encounter Details Date Type Department Care Team (Late st Contact Info) Description 03/12/2023 Telephone [facility] [place] [address] [place] [address] Haseeb Craig MD [address] [facility], [facility] 5 [place] [phone] Other Social History Tobacco Use Types Packs/Day Years [...] encounter Miscellaneous Notes * Telephone Encounter - Irene, Samina - 03/12/2023 6652 EST Patient called very upset regarding her surgery tomorrow with Dr. Craig. She has been given confusing information and thinks she wants to cancel. She states she was supposed to have been given a referral from her PCP for a second opinion at [facility]. This was done yet, but I did see a note from the PCP that the patient had called again today requesting that referral.Secondly, someone called her to go over preop information for her hernia. She told them she was not having hernia surgery. The caller then apologized and said she was looking at the wrong patient chart. This did not make Kenyatta feel comfortable and she wonders if they will do the right operation. She also states that the radi ologist told her she was going to have a mastectomy and that she only had 5 years to live. Lastly, the patient states that she was supposed to have a conversation with oncology regarding surgery and they have not called her yet. I spent about 30 minutes on the phone with the patient listening to her concerns. The patient saw Dr. Craig on 03/08 for a preop appointment. She and her daughter came to see me after that visit to schedule surgery. We discussed the surgery and scheduled it for 03/13. Kenyatta llanosy to be scheduling so soon so she could put it all behind her. I printed off a letter for the patient with the surgery information and handed it to her. Unfortunately none of these concerns were discussed with me at that time. While talking with Kenyatta today, I could here how frustrated she was. I asked if there was anything I could do to help her. Kenyatta asked if there was any way she could talk with Dr. Hendrix at oncology today. She thought if she could talk with him about her concerns, it would help her understand some things. I told Kenyatta I would call his office and see what we could do. I alsilvano told her I would call her back in a couple of hours to check in. I spoke with Joie at hematology oncology to ask ifDr. Hendrix would be able to call Kenyatta parsons. Dr. Hendrix is not in the office today, but she said shewould send a message to Dr. Hendrix asking him to call Kenyatta. Joie sent a message stating that Dr. Hendrix was going to call Kenyatta. When I called Kenyatta back to check in, she told me that she received a call from Dr. Hendrix and was able to discuss all her questions. She will proceed with surgery as planned. She thanked me for listening to her and for having Dr. Hendrix call. She stated she felt much better about things. documented in this encounter Plan of Treatment Upcoming Encounters Date Type Department Care Team (Late st Contact Info) Description 05/19/2024 11:00 EST Office Visit [address], [facility] 2 [place] [address] Dane Rick MD [address] [place] [phone] documented as of this encounter Visit Diagnoses Not on filedocumented in this encounter Additional Health Concerns Infection Onset Date Last Indicated Resolved Time R/O COVID-19 08/13/2023 08/13/2023 08/13/2023 20:0 7 EDT documented as of this encounter Care Teams It Software Engineer Relationship Specialty Start Date End Date Dane Rick MD [address] [place] [phone] PCP - General Family Medicine - Primary Care 08/09/22 Vicky Chamberlain [facility] Host Coordinator 06/12/22 01/22/24 Leticia Lieberman [address] [place] [phone] General Surgery 04/03/23 Mendoza Guzmán MD [address] [place] [address] [address] [place] [phone] Otolaryngology 04/03/23 documented as of this encounter
--- OUTSIDE RECORDS SUMMARY | 2024-02-08 01:08 | XMS_ITS | Encounter Summary ---
Author Organization [facility] Address [address] [place] [address] Care Team Providers Care Carton Gluing Machine Operator Name Role Phone Vicky Chamberlain Unavailable [phone] Dane Rick MD Primary Care Provider [phone] Reason for Visit * Reason Onset Date Comments Advice Only 03/12/2023 Encounter Details Date Type Department Care Team ([facility] Contact Info) Description 03/12/2023 Telephone [facility] [place] [address] [place] [address] Ashlee Montez, assembler dielectric heater Only Social History Tobacco Use Types Packs/Day Years [...] slept in a jail (including now)? No 05/02/2022 Interpersonal Safety Answer [...] encounter Miscellaneous Notes * Telephone Encounter - Ashlee Montez RN - 03/12/2023 1227 EST Call was lost on transfer and pt ended up calling back and speaking with Samina. documented in this encounter Plan of Treatment Upcoming Encounters Date Type Department Care Team (Late st Contact Info) Description 05/19/2024 11:00 EST Office Visit [facility] Family [address], [facility] 2 [place] [address] Dane Rick MD [address] [place] [phone] documented as of this encounter Visit Diagnoses Not on filedocumented in this encounter Care Teams Carton Gluing Machine Operator Relationship Specialty Start Date End Date Dane Rick MD [address] [place] [phone] PCP - General Family Medicine - Primary Care 08/09/22 Vicky Chamberlain, [facility] Recenterer 06/12/22 01/22/24 documented as of this encounter
--- OUTSIDE RECORDS SUMMARY | 2024-02-08 01:08 | XMS_ITS | Encounter Summary ---
Author Organization [facility] Address [address] [place] [address] Care Team Providers Care New Product Trainer Name Role Phone Vicky ChamberlainSW Unavailable [phone] Dane Rick MD Primary Care Provider [phone] Reason for Visit * Reason Comments Discuss Treatment Options Encounter Details Date Type Department Care Team ([facility] Contact Info) Description 02/28/2023 15:45 EST Office Visit [facility] General Surgery [address], [place] [address] Haseeb Craig MD [address] [facility], [facility] [address] [place] [address] Mass of upper outer quadrant [...] slept in a fdc (including now)? No 05/02/2022 Interpersonal Safety Answer [...] Sign Reading Time Taken Comments Blood Pressure 157/73 02/28/2023 1516 EST Pulse 59 02/28/2023 1516 EST Temperature - - Respiratory Rate - - Oxygen Saturation - - Inhaled Oxygen Concentration - - Weight 66.7 kg (147 lb) 02/28/2023 1516 EST Height 149.9 cm (4' 11) 02/28/2023 1516 EST Body Mass Index 29.69 02/28/2023 1516 EST documented in this encounter Functional Status [...] Progress Notes * Haseeb Craig MD - 02/28/2023 1542 EST Images from the original note were not included. General Surgery H&P Referring Provider: Dane Rick Reason for Visit: newly diagnosed right breast cancer HPI: Kenyatta Vizcaino is a 82 y.o. female who returns to discuss biopsy results. She underwent ultrasound-guided core needle biopsy of the right breast mass by me on 02/09/23. Pathology results showedinvasive ductal carcinoma, ER+, WV-, Her2/parveen negative. Additionally, ultrasound done at the time of breast imaging demonstrated suspicious right axillary lymph nodes. She returns today with her daughter to discuss next steps in treatment. She is quite frustrated with the pace of care and worries that this will contribute to advanced disease stage. She denies any symptoms and wants to know what her survival chances are. She has been in touch with the med/onc office and they have ordered CT C/A/P and bone scan for this coming 03/02/23. Past Medical History: Diagnosis Date ??? Abnormal stress test reversible anteroseptal defect, with equivocal ST changes ??? Arthritis ??? Breathlessness on exertion ??? Cerebral artery occlusion with cerebral infarction (HCC-CMS) ??? Chest pressure on exertion ??? Diverticulosis ??? HLD (hyperlipidemia) ??? HLD (hyperlipidemia) ??? Hypertension ??? ABDOULAYE (obstructive sleep apnea) ??? Post concussive syndrome poor memory ??? Seizure disorder (HCC-CMS) ??? Trigeminal neuralgia Family History Problem Relation Age of Onset ??? Heart Disease Father ??? High Blood Pressure Father ??? Early Paternal Aunt ??? Diabetes Paternal Aunt ??? Diabetes Paternal Uncle ??? Early Son Current Outpatient Medications Medication Sig Dispense Refill ??? aspirin 81 mg EC tablet Take 1 Tablet by mouth every 48 hours. ??? doxycycline (VIBRA-TABS) 100 mg tablet (Patient not taking: Reported on 02/09/2023) ??? ergocalciferol, vitamin D2, (VITAMIN D ORAL) Take 1 Tablet by mouth daily at 1200. ??? furosemide (LASIX) 20 mg tablet TAKE 2 TABLETS BY MOUTH ONCE DAILY IN THE MORNING AND 1 IN THE AFTERNOON (Patient taking differently: TAKE 2 TABLETS BY MOUTH ONCE DAILY IN THE MORNING AND 1 IN THE AFTERNOON * states takes it when she needs it.) 270 Tablet 0 ??? hydrOXYzine (ATARAX) 25 mg tablet Take 1 Tablet by mouth 3 times daily as needed for Itching. 60 Tablet 0 ??? losartan (COZAAR) 100 mg tablet Take 1 Tablet by mouth daily. 90 Tablet 1 ??? MAGNESIUM GLUCONATE ORAL Take 1 Tablet by mouth daily at 1200. No current facility-administered medications for this visit. Allergies Allergen Reactions ??? Amoxicillin-Pot Clavulanate Rash ??? Atorvastatin Muscle Aches ??? Flagyl [Metronidazole] ??? Metoprolol Other (See Comments) heart failure? Penicillins ??? Zithromax [Azithromycin] Social History Socioeconomic History ??? Marital status: Spouse name: Not on file ??? Number of children: Not on file ??? Years of education: Not on file ??? Highest education level: Not on file Occupational History ??? Not on file Tobacco Use ??? Smoking status: Never ??? Smokeless tobacco: Never Substance and Sexual Activity ??? Alcohol use: Yes Comment: occasionally ??? Drug use: No ??? Sexual activity: Not on file Other Topics Concern ??? Not on file Social History Narrative ??? Not on file Social Determinants of Health Financial Resource Strain: Medium Risk (05/02/2022) Overall Financial Resource Strain (CARDIA) ??? Difficulty of Paying Living Expenses: Somewhat hard Food Insecurity: Food Insecurity Present (05/02/2022) Hunger Vital Sign ??? Worried About Running Out of Food in the Last Year: Sometimes true ??? Ran Out of Food in the Last Year: Never true Transportation Needs: No Transportation Needs (05/02/2022) PRAPARE - Transportation ??? Lack of Transportation (Medical): No ??? Lack of Transportation (Non-Medical): No Physical Activity: Not on file Stress: Not on file Social Connections: Not on file Housing Stability: Low Risk (05/02/2022) Housing Stability Vital Sign ??? Unable to Pay for Housing in the Last Year: No ??? Number of Places Lived in the Last Year: 1 ??? Unstable Housing in the Last Year: No Recent Concern: Housing Stability - High Risk (03/14/2022) Housing Stability Vital Sign ??? Unable to Pay for Housing in the Last Year: Yes ??? Number of Places Lived in the Last Year: Not on file ??? Unstable Housing in the Last Year: No Review of Systems: A ten point review of systems was performed and was negative except for pertinent positives noted in the HPI Objective: Ht (!) 149.9 cm (59) Wt 66.7 [...] by Halina. If biopsy is performed at [facility], the referring provider will need to send a referral to the office of [facility] G eneral Surgery. ? [id number] Signed by Rylan Thapa MD on 01/24/2023 15:58 Narrative & Impression US BREAST LIMITED RIGHT, MA BREAST DIAGNOSTIC LULA BILATERAL ? SIGNS AND SYMPTOMS/COMMENTS: LARGE MASS OF RIGHT BREAST AND ASOCIATED ENLARGED AXILLARY LYMPH NODE,HIGHLY SUSPICIOUS FOR MALIGNANCY;N63.11:MASS OF UPPER OUTER QUADRANT OF RIGHT BREAST;R59.0:LYMPHADENOPATHY, AXILLARY;N64.4:BREAST PAIN, RIGHT ?? COMPARISONS: Comparison has been made to prior examinations, most recently May 2008. ?? FINDINGS: ?? RIGHT BREAST MAMMOGRAPHY: Full field digital whole [...] cm. * No suspicious microcalcifications are present. ?? RIGHT BREAST ULTRASOUND: The outer half of [...] near complete absence of a fatty hilum. ?? LEFT BREAST MAMMOGRAPHY: Full field digital whole breast 2D (C-view) and 3D CC and MLO views of theleft breast were obtained. CAD technology was utilized. * There are scattered areas of fibroglandular density. There is no suspicious mass, architectural distortion or suspicious microcalcification. ? FINAL ASSESSMENT: DIAGNOSTIC RIGHT BREAST MAMMOGRAM/ULTRASOUND - BI-RADS Category 5 -highly suggestive of malignancy; biopsy should be considered. * Dominant 2.4cm irregular right breast mass with nearby 0.8 cm satellite lesion, highly suggestiveof malignancy. * Numerous morphologically normal right axillary lymph nodes. * Recommend tissue sampling. ?? FINAL ASSESSMENT: SCREENING LEFT BREAST MAMMOGRAM - BI-RADS Category 1 - Negative. ?? RECOMMENDATION: Recommend right breast biopsy as discussed above. ?? Dr Rylan Thapa discussed the findings and recommendations directly with the patient at the time of the examination. ? OVERALL ASSESSMENT: BI-RADS Category 5: Highly Suggestive of Malignancy ?? These results will be communicated to your patient via a lay letter from Radiology. If any additional imaging is needed we will contact your patient directly. ?? A preliminary report t was given to at the office of Tamy Howe on 01/23/2023 at 1:39 PM by Halina. If biopsy is performed at [facility], the referring provider will need to send a referral to the office of [facility] General Surgery. ?? Ancillary Studies Addendum ER/WV RESULTS: Tissue submitted: Paraffin embedded tissue block labelled [id number] (A2) from [facility] ?? Immunohistochemical assays for estrogen receptors (SP1, [place]) and progesterone receptors (16, Leica) have been performed on this specimen. Intranuclear receptor complexes were visualized on tissuesections using an HRP polymer immunohistochemical technique. This assay is intended for paraffin-emb edded tissue fixed in 10% neutral buffered formalin for 6-72 hours. ?? Results are reported as negative (<1% nuclear staining) or positive with the proportion of positive cells noted. Estrogen receptor expression in <5% of tumor cells may not have a strong interaction with estrogen receptor modulators such as Tamoxifen. ?? Reference: ASCO-CAP Guideline Recommendations for IHC testing of ER and WV. J Clin Oncol 2010;28:8121-6972. ?? NOTE: One or more of the reagents [...] performance characteristics have been determined by [facility] and/or by the referring laboratory. The positive and negative controls worked appropriately. If immunoperoxidase staining has been performed on alcohol fixed cytology specimens, which has not been fully validated, the assays should be interpreted with caution and correlated with clinical data. This laboratory is certified under the ClinicalLaboratory Improvement Amendments of 1988 (CLIA-88) as qualified to perform high complexity clinical laboratory testing. ?? INTERPRETATION:? A. BREAST, RIGHT, UPPER OUTER QUADRANT, 9 O'CLOCK, MASS, ULTRASOUND-GUIDED CORE BIOPSY: - Adenocarcinoma, invasive. ??- Positive for estrogen receptors (in greater than 90% of tumor cells). ?- Nuclear staining intensity: Strong. - Negative for progesterone receptors. ?? COMMENT: Cold ischemic time appropriate: Yes Total formalin fixation time appropriate: No (81.5 hours)? HER2/PARVEEN RESULTS: Tissue submitted: Paraffin embedded tissue block labelled [id number] (A2) ?? From [facility], [facility] ?? Fixative: Formalin ?? This immunohistochemical assay is intended to paraffin-embedded tissue fixed in 10% neutral buffered formalin for 6-72 hours; 18-24 hour fixation with maximum tissue thickness of 3-4 millimeters is recommended for best assay performance. Time from biopsy to placement in formalin (cold ischemic time) should be minimized to less than one hour. Her2 should not be performed on alcohol fixed tissues. ?? The assay was performed under appropriate conditions according to the product marketing intern's instructions with appropriate assay and tissue controls using an Anti-Her2 (4B5) Rabbit Monoclonal Antibody ([place]). ?? Her2 Scoring Guidelines (invasive tumor component only) 0 negative No staining or membrane staining in less than 10% of cells 1+ negative Faint partial membrane staining in more than 10% of cells 2+ weakly positive Moderate complete membrane staining in more than 10% of cells 3+ positive Strong complete membrane staining in more than 10% of cells ?? Reference: ASCO-CAP Recommendations for Her2 Testing. J Clin Oncol 2018; epub (www.jco.org September 182018) ?? *FDA statement Assay results ?? Her2 IHC Score: 0/negative ?? Tumor location: Right Breast upper outer quadrant ?? Cold ischemic time appropriate: Yes Total formalin fixation time appropriate: No (81.5 hours)? Cells with complete membrane staining: None ?? Membrane staining intensity: N/A ?? Partial membrane staining: Absent ?? Cytoplasmic staining: Absent ?? Staining pattern: N/A ?? Staining in benign epithelium: Faint Cytoplasmic ?? The Her2 assay performed is interpreted as: NEGATIVE ?? Note: The technical processing and professional interpretation of this testing were performed at the [facility] Department of Pathology and Laboratory Medicine, [address] [place] [address]. CLIA # [id number]. Addendum electronically signed by Robel Ferguson MD on 02/16/2023 at 1555 Note to Patient [facility] The following pathology results have been interpreted by your pathologist and may be available toyou before your health provider has had the opportunity to review them. Please allow time for your provider to receive these results and explore management options, if applicable. Final Diagnosis [facility] A. BREAST, RIGHT, UPPER OUTER QUADRANT, 9 O'CLOCK, MASS, ULTRASOUND-GUIDED CORE BIOPSY: - Invasive ductal carcinoma, nuclear grade 2. See comment. Diagnosis Comment [facility] Prognostic studies for ER, WV, and HER2 are pending at the [facility] Laboratory, and the results will be [...] confirmedthe above diagnosis. at 1604 Ancillary Studies [facility] Immunoperoxidase stains were performed on this case to further characterize the lesion. ?? ANTIBODY(CLONE)(BLOCK): RESULT GCDF-15 (BRST-2) ([id number], [place])(A2): Rare, focal staining Mammaglobin (31A5, Leica)(A2): Positive GATA3 (L50-823, [place])(A2): Positive nuclear staining ?? Interpretation: The immunostain profile supports a breast primary carcinoma. ?? The technical component of the above immunohistochemical stain(s) was performed at the [facility] Pathology Department, [address] [place] [address] (CLIA [id number]), and the professional interpretation component was performed at the [facility] Pathology Department, [address] [address] (CLIA [id number]). ?? NOTE: One or more of the reagents [...] These reagents' performance characteristics havebeen determined by [facility] and/or by the referring laboratory. The [...] to perform high complexity clinical laboratory testing. ?? Clinical History [facility] Mass of upper outer quadrant of right breast, 9 oclock Gross Description [facility] A. Received in formalin and labeled with ???Kenyatta Vizcaino?? and ???breast?? are several of needle cores of yellow-pond fibrofatty tissue and blood clot ranging in length from 0.2 cm to 1.5 cm. Needle cores are submitted entirely in 2 cassettes. Submitted entirely in cassette A3 are dark red chunks of blood clot and possible fibrofatty tissue measuring an estimated 2.0 cc, filtered. ?? Fixation time: Time out of body: 02/09/23 at 1226 hours Time in formalin: 02/09/23 at 1226 hours Fixation time: 81 hours and 34 minutes ?? Julia Benson 02/12/2023 13:11 Office Visit on 02/09/2023 Component Date Value Ref Range Status ??? Ancillary Studies Addendum 02/09/2023 Final Value:This result contains rich text formatting which cannot be displayed here. ??? Note to Patient 02/09/2023 Final Value:This result contains rich text formatting which cannot be displayed here. ??? Final Diagnosis 02/09/2023 Final Value:This result contains rich text formatting which cannot be displayed here. ??? Diagnosis Comment 02/09/2023 Final Value:This result contains rich text formatting which cannot be displayed here. ??? Attestation 02/09/2023 Final Value:This result contains rich text formatting which cannot be displayed here. ??? Ancillary Studies 02/09/2023 Final Value:This result contains rich text formatting which cannot be displayed here. ??? Clinical History 02/09/2023 Final Value:This result contains rich text formatting which cannot be displayed here. ??? Gross Description 02/09/2023 Final Value:This result contains rich text formatting which cannot be displayed here. ??? Performing Lab 02/09/2023 Final Value:This result contains rich text formatting which cannot be displayed here. Assessment: 82yo F with right breast invasive ductal carcinoma, >2cm, with suspicious axillary lymph nodes, pending further imaging work-up for staging purposes. Plan: I had a lengthy discussion with Ms. Vizcaino and her daughter about the stages of breast cancer and the treatment algorithm according to the stage. She is scheduled to undergo CT CAP and bone scan later this week to complete metastatic work-up. Should these be unremarkable, we would potentially proceed with upfront surgery followed by adjuvant therapies. Should there be advanced disease, we would likely start with neoadjuvant treatment prior to considering surgical resection. We will discuss her case at [facility] next 03/06/23 and I will see her back on 03/08/23 todiscuss the next steps. All questions answered to the best of my ability. Haseeb Craig MD General Surgery documented in this encounter Plan of Treatment Upcoming Encounters Date Type Department Care Team (Late st Contact Info) Description 05/19/2024 11:00 EST Office Visit [facility] Family Medicine [address], [facility] [address] [place], [place] [id number] Dane Rick MD [address] [place], [place] [phone] documented as of this encounter Visit Diagnoses Diagnosis Mass of upper outer quadrant of right breast- Primary Invasive ductal carcinoma of right breast (HCC-CMS) documented in this encounter Care Teams New Product Trainer Relationship Specialty Start Date End Date Dane Rick MD [address] [place] [address] 2 [place] [address] PCP - General Family Medicine - Primary Care 08/09/22 Vicky Chamberlain, [facility] Roofing Machine Tender 06/12/22 01/22/24 documented as of this encounter
--- OUTSIDE RECORDS SUMMARY | 2024-02-08 01:08 | XMS_ITS | Encounter Summary ---
Author Organization [facility] Address [address] [place] [address] Care Team Providers Care Play Reader Name Role Phone BulmaroVicky LATRICE Unavailable [phone] Dane Rick MD Primary Care Provider [phone] Encounter Details Date Type Department Care Team ([facility] st Contact Info) Description 03/05/2023 Patient Outreach [facility] Family Medicine - [facility] [address] [id number] Vicky Chamberlain LICSW 130 [facility] [address] [place] [address] Social History Tobacco Use Types [...] [place] [facility] (including now)? No 05/02/2022 Interpersonal Safety Answer [...] this encounter Progress Notes * Vicky Chamberlain, [employer] - 03/05/2023 1515 EST [facility] Care Management Follow Up Railroad Car Painter followed up with Kenyatta by phone for biopsy and care coordination questions. TOPIC OF CONVERSATION: ??? Reviewed assessment and plan from previous visit with patient. ??? Engaged patient in conversation related to positive behavior change, self- management, goal setting and action planning using motivational interviewing and active listening. - Kenyatta calls to request clarification on medical visits upcoming and referral to [facility] for second opinion. - CM explains that she has appointments with Dr. Rick and Dr. Craig on 03/08 to discuss the nextsteps for Breast Cancer diagnosis. - CM also explains that referral for a second opinion at [facility] has been placed on 02/28. Prioritized Patient Identified Goals: 1. Kenyatta with the assistance of her daughter will be in contact with [facility] for second opinionupon their outreach Achievement towards goals: In progress 1. Kenyatta will attend future diagnostic appointments ?? Achievement towards goals: In progress ?? 2. CM will coordinate with Dr. Rick for care coordination with diagnosis and second opinions. ?? Achievement towards goals: In progress Plan: Follow up monthly Next Railroad Car PainterBiometry Teacher: 04/05/2023 LATRICE ENCISO 03/05/2023 15:32 documented in this encounter Plan of Treatment Upcoming Encounters Date Type Department Care Team (Late st Contact Info) Description 05/19/2024 11:00 EST Office Visit [facility] Family Medicine [address], [facility] 2 [place], [place] [address] Dane Rick MD [address] [place] [address] [address] [place] [address] documented as of this encounter Visit Diagnoses Not on filedocumented in this encounter Care Teams Play Reader Relationship Specialty Start Date End Date Dane Rick MD [address] [place] [address] [address] [place] [address] PCP - General Family Medicine - Primary Care 08/09/22 Vicky Chamberlain LICSW Railroad Car Painter 06/12/22 01/22/24 documented as of this encounter
--- OUTSIDE RECORDS SUMMARY | 2024-02-08 01:08 | XMS_ITS | Encounter Summary ---
Author Organization [facility] Address [address] [place] [address] Care Team Providers Care Train Control Technician Name Role Phone Vicky ChamberlainSW Unavailable [phone] Dane Rick MD Primary Care Provider [phone] Reason for Referral * Consult (Routine/Next Available) - Specialty Report Received Specialty Diagnoses / Procedures [facility] Referred To Contact Diagnoses Invasive ductal carcinoma of right breast (HCC-CMS) Dane Rick MD [address] [place] [address] 2 [place] [address] Referral ID Status Reason Start Date Expiration Date Visits Requested Visits Authorized [id number] Specialty Report Received Specialty Services Required 3 1 1 Question Answer Reason for Request: External referral, already seen by [facility] Leticia Lieberman Encounter Details Date Type Department Care Team ([facility] Contact Info) Description 03/27/2023 Orders Only [facility] Family Medicine - [address], [place] [address] [place] [address] Dane Rick MD [address] [facility] [address] [place] [address] Invasive ductal carcinoma of right breast (HCC-CMS) (Primary Dx) Social History Tobacco Use [...] Office Visit [facility] Family [address], [facility] 2 [place] [address] Dane Rick MD [address] [place] [address] 2 [place] [address] Scheduled Referrals Name Type Priority Associated Diagnoses Order Schedule AMB CONS/FOLLOW UP GENERAL SURGERY/COLORECT AL SURGERY Outpatient Referral Routine/Next Available Invasive ductal carcinoma of right breast (HCC-CMS) Expected: 04/03/2023 (Approximate), Expires: 03/27/2024 documented as of this encounter Visit Diagnoses Diagnosis Invasive ductal carcinoma of right breast (HCC-CMS)- Primary documented in this encounter Care Teams Train Control Technician Relationship Specialty Start Date End Date Dane Rick MD [address] [place] [phone] PCP - General Family Medicine - Primary Care 08/09/22 Vicky Chamberlain LICSW [employer] Gun Hand 06/12/22 01/22/24 documented as of this encounter
--- OUTSIDE RECORDS SUMMARY | 2024-02-08 01:08 | XMS_ITS | Encounter Summary ---
Author Organization [facility] Address [address] [place] [address] Care Team Providers Care Director Personal Name Role Phone Vicky ChamberlainSW Unavailable [phone] Dane Rick MD Primary Care Provider [phone] Encounter Details Date Type Department Care Team ([facility] st Contact Info) Description 03/13/2023 13:00 EST Anesthesia Event [facility] Operating Room [address] [place] [address] Caroline Mijares MD [address] [facility], [address] [place] [address] Anesthesia Record Procedure Summary Procedure Name Responsible Anesthesiologist Anesthesia Start Time Anesthesia Stop Time MASTECTOMY, PARTIAL (Right) Events No events on file. Meds * Agents No agents on file. * Blood No blood administrations on file. Lines, Drains, and Airways No LDAs on file. documented in this encounter Social History Tobacco [...] Info) Description 05/19/2024 11:00 EST Office Visit [facility] Family [address], [facility] 2 [place] [address] Dane Rick MD [address] [place] [address] 2 [place] [address] documented as of this encounter Visit Diagnoses Not on filedocumented in this encounter Care Teams Director Personal Relationship Specialty Start Date End Date Dane Rick MD [address] [place] [phone] PCP - General Family Medicine - Primary Care 08/09/22 Vicky Chamberlain, [facility] Hose Wrapper 06/12/22 01/22/24 documented as of this encounter
--- OUTSIDE RECORDS SUMMARY | 2024-02-08 01:08 | XMS_ITS | Encounter Summary ---
Author Organization [facility] Address [address] [place] [address] Care Team Providers Care Materials Planner/Production Planner Name Role Phone Vicky Chamberlain Unavailable [phone] Dane Rick MD Primary Care Provider [phone] Reason for Visit * Reason Onset Date Comments Medical Records 02/23/2023 Paperwork request 02/23/2023 Encounter Details Date Type Department Care Team ([facility] Contact Info) Description 02/23/2023 Telephone [facility] Family Medicine [facility] [address] [facility], [address] [place] [address] Dane Rick MD [address] [facility] [place] [address] [place] [address] Medical Records; Paperwork request Social History Tobacco Use Types [...] Telephone Encounter - Marta Oh - 03/14/2023 1128 EST Sent My Chart message to patient, I attached HIM JAMMIE form she will need to [facility] * Telephone Encounter - Nedra Veras - 02/23/2023 1548 EST Pt called requesting all her records get sent to [facility] as she is transferring her care there. There is an Authorization to Release Protected Health Information that needs to be completed and signed in the brown folder. Pt will try to come by on Sunday. Once completed, fax to medical records andmark as urgent documented in this encounter Plan of Treatment Upcoming Encounters Date Type Department Care Team (Late st Contact Info) Description 05/19/2024 11:00 EST Office Visit [facility] Family Medicine [address], [address] [address] Dane Rick MD [address] [place] [phone] documented as of this encounter Visit Diagnoses Not on filedocumented in this encounter Care Teams Materials Planner/Production Planner Relationship Specialty Start Date End Date Dane Rick MD [address] [place] [phone] PCP - General Family Medicine - Primary Care 08/09/22 Vicky Chamberlain AMMUNITION AND EXPLOSIVES HANDLER Sports Complex Attendant 06/12/22 01/22/24 documented as of this encounter
--- OUTSIDE RECORDS SUMMARY | 2024-02-08 01:08 | XMS_ITS | Encounter Summary ---
Author Organization [facility] Address [address] [place] [address] Care Team Providers Care Sheet Rock Nailer Name Role Phone BulmaroVicky LATRICE Unavailable [phone] Dane Rick MD Primary Care Provider [phone] Encounter Details Date Type Department Care Team ([facility] st Contact Info) Description 03/15/[address] [facility] Family Medicine - [facility] [address] [phone] Vicky Chamberlain LICSW [address] [facility] [address] [place] [address] Social History Tobacco Use Types [...] to sleep or slept in a senior care (including now)? No 03/15/2023 Interpersonal Safety Answer [...] this encounter Progress Notes * Vicky Chamberlain, FOOD BEVERAGE ATTENDANT - 03/15/2023 1906 EST [facility] Care Management Assessment and Care Plan Referral Reason: Dental Currently: Care coordination for recent diagnosis of breast cancer Pertinent medical and behavioral health issues: Recent diagnosis of breast cancer Has the patient had an inpatient hospitalization or an ED visit within the last year: Yes If yes, what was the patient's primary diagnosis for their hospitalization or ED visit? Malaise Patient Care Team: Dane Rick MD as PCP - General (Family Medicine - Primary Care) Vicky Chamberlain LICSW as Educational Psychology Teacher Medications: Current Outpatient Medications: aspirin 81 mg EC tablet, Take 1 Tablet by mouth every 48 hours., Disp: , Rfl: doxycycline (VIBRA-TABS) 100 mg tablet, , Disp: , Rfl: ergocalciferol, vitamin D2, (VITAMIN D ORAL), Take 1 Tablet by mouth daily at 1200., Disp: , Rfl: furosemide (LASIX) 20 mg tablet, TAKE 2 TABLETS BY MOUTH ONCE DAILY IN THE MORNING AND 1 IN THE AFTERNOON (Patient taking differently: TAKE 2 TABLETS BY MOUTH ONCE DAILY IN THE MORNING AND 1 IN THE AFTERNOON * states takes it when she needs it. 03/08/23 - not taken daily), Disp: 270 Tablet, Rfl: 0 hydrOXYzine (ATARAX) 25 mg tablet, Take 1 Tablet by mouth 3 times daily as needed for Itching. (Patient not taking: Reported on 03/08/2023), Disp: 60 Tablet, Rfl: 0 losartan (COZAAR) 100 mg tablet, Take 1 Tablet by mouth daily., Disp: 90 Tablet, Rfl: 1 MAGNESIUM GLUCONATE ORAL, Take 1 Tablet by mouth daily at 1200., Disp: , Rfl: CM reviewed medication list in the chart Living Arrangement: Presently living in apartment, alone. this year Social Supports: Daughter, Adriana Activities requiring assistance: food prep/shopping and driving Current plan for assistance with ADLs: daughter assists Need for caregiver resources in order to meet patient's ADL needs: Caregiver does not require training or support Hearing/Vision: Some trouble hearing out of left ear Cognitive Function: memory impairment and confusion Health literacy Assessment: patient is able to read/write, appropriate to their developmental age Social Determinants of Health: SDOH screen completed during visit: Yes Food Insecurity: Food Insecurity Present (03/15/2023) Hunger Vital Sign Worried About Running Out of Food in the Last Year: Sometimes true Ran Out of Food in the Last Year: Sometimes true Financial Resource Strain: Medium Risk (03/15/2023) Overall Financial Resource Strain (CARDIA) Difficulty of Paying Living Expenses: Somewhat hard Housing Stability: Low Risk (03/15/2023) Housing Stability Vital Sign Unable to Pay for Housing in the Last Year: No Number of Places Lived in the Last Year: 1 Unstable Housing in the Last Year: No Transportation Needs: No Transportation Needs (03/15/2023) PRAPARE - Transportation Lack of Transportation (Medical): No Lack of Transportation (Non-Medical): No Depression: Not on file Alcohol Use: Not on file Tobacco Use: Low Risk (03/09/2023) Patient History Smoking Tobacco Use: Never Smokeless Tobacco Use: Never Passive Exposure: Not on file Healthcare Insurance: Payer/Plan Subscr Sex Relation Sub. Ins. ID Effective Group Num 1. [employer] - [employer]* RICHIE LOPEZ* 1940 Female Self [id number] [address] 2. MEDICARE ACO * RICHIE LOPEZ* 1940 Female Self [id number] [birth year]06 [address] Any gaps or barriers with healthcare insurance coverage: No DME: none DME vendor: not applicable Barriers to using technology: unable to use telehealth and no or limited Internet access Preferred method of communication: Phone Call Cultural, spiritual or language factors affecting health: Born again sabianism, no christianity affiliation at this time Existing Community Resources: [employer] supports Gaps in Resources Identified: none identified Advance Directive on File: Needs to be completed Prioritized Patient Identified Goals: (needs to include one self-management goal): 1. Kenyatta will attend all follow up medical appointments, and second opinion at [facility]. Assessment/Clinical Summary and Plan: (Address any positive screens, Barriers identified to meetinggoals and follow up plan for communication): Kenyatta is a bonnie 82 year old female who was recently diagnosed with breast cancer. Her this year as well. Kenyatta's daughter has been supportive and assisting with transportation and managing of stress related to diagnosis and second opinion. Kenyatta has appointment with [facility] for a second opinion on surgical plan. Patient's access to their plan of care: Patient/family will access electronically through [email or web address] CM will follow-up on 04/05/2022 LATRICE ENCISO 03/15/2023 19:15 documented in this encounter Plan of Treatment Upcoming Encounters Date Type Department Care Team (Late st Contact Info) Description 05/19/2024 11:[address] [facility] Family Medicine [address], [facility] 2 [place] [address] Dane Rick MD [address] [place] [phone] documented as of this encounter Visit Diagnoses Not on filedocumented in this encounter Care Teams Sheet Rock Nailer Relationship Specialty Start Date End Date Dane Rick MD [address] [place] [phone] PCP - General Family Medicine - Primary Care 08/09/22 Vicky Chamberlain LICSW Educational Psychology Teacher 06/12/22 01/22/24 documented as of this encounter
--- OUTSIDE RECORDS SUMMARY | 2024-02-08 01:08 | XMS_ITS | Encounter Summary ---
Author Organization [facility] Address [address] [place] [address] Care Team Providers Care Networks Software Consultant Name Role Phone Vicky Chamberlain Unavailable [phone] Dane Rick MD Primary Care Provider [phone] Leticia Lieberman Unavailable Mendoza Guzmán MD Unavailable Reason for Visit * Reason Onset Date Comments Medication Questions 04/13/2023 Encounter Details Date Type Department Care Team ([facility] st Contact Info) Description 04/13/[address] [facility] - [facility] Family Medicine [address], [facility] [address] [place] [address] Dane Rick MD [address] [facility] [address] [place] [address] Medication Questions Social History Tobacco Use Types Packs/Day Years [...] Telephone Encounter - Milton Mcnally RN - 04/26/2023 1621 EST Spoke with pt relayed message. * Telephone Encounter - Nupur Benson RN - 04/17/2023 1605 EST LM to call back. * Telephone Encounter - Dane Rick MD - 04/17/2023 1216 EST She may hold the aspirin 7 days before the procedure. Otherwise continue her other medicines prior to surgery. * Telephone Encounter - Nupur Besnon RN - 04/17/2023 0856 EST Saw IFEANYI for pre-op on 04/03. Planned procedure is right breast-partial mastectomy. I do not see any mention of holding any meds. JI- does she need to hold anything? * Telephone Encounter - Marta Oh - 04/13/2023 1625 EST Patient asked if she needs to hold any medications before surgery with [facility]? Please advise. documented in this encounter Plan of Treatment Upcoming Encounters Date Type Department Care Team (Late st Contact Info) Description 05/19/2024 11:[address] [facility] - [facility] Family Medicine - [address], [address] [place] [address] Dane Rick MD [address] [facility] [address] [place] [phone] documented as of this encounter Visit Diagnoses Not on filedocumented in this encounter Care Teams Networks Software Consultant Relationship Specialty Start Date End Date Dane Rick MD [address] [facility] 2 [place] [phone] PCP - General Family Medicine - Primary Care 08/09/22 Vicky Chamberlain, [facility] Ballaster 06/12/22 01/22/24 Leticia Lieberman [address] [place] [phone] General Surgery 04/03/23 Mendoza Guzmán MD [address] [place] [address] [address] [place] [address] Otolaryngology 04/03/23 documented as of this encounter
--- OUTSIDE RECORDS SUMMARY | 2024-02-08 01:08 | XMS_ITS | Encounter Summary ---
Author Organization [facility] Address [address] [place] [address] Care Team Providers Care Refrigeration Repair Supervisor Name Role Phone Vicky Chamberlain Unavailable [phone] Dane Rick MD Primary Care Provider [phone] Leticia Lieberman Unavailable Mendoza Guzmán MD Unavailable [phone] Reason for Visit * Reason Onset Date Comments Appointment Related 03/27/2023 Encounter Details Date Type Department Care Team (Late st Contact Info) Description 03/27/2023 Telephone [facility]ematology & Oncology [address] [place] [address] Xu Hendrix MD [address] [place] [address] [address] [place] [address] Appointment Related Social History Tobacco [...] encounter Miscellaneous Notes * Telephone Encounter - DaudelinEllena - 03/27/2023 1325 EST TCB - Dr. Hendrix wants to reschedule out 2 weeks. documented in this encounter Plan of Treatment Upcoming Encounters Date Type Department Care Team (Late st Contact Info) Description 05/19/2024 11:00 EST Office Visit [facility] Family [address], [email or web address] [address] [place] [address] Dane Rick MD [address] [place] [address] 2 [place] [phone] documented as of this encounter Visit Diagnoses Not on filedocumented in this encounter Additional Health Concerns Infection Onset Date Last Indicated Resolved Time R/O COVID-19 08/13/2023 08/13/2023 08/13/2023 20:0 7 EDT documented as of this encounter Care Teams Refrigeration Repair Supervisor Relationship Specialty Start Date End Date Dane Rick MD [address] [place] [address] 2 [place] [phone] PCP - General Family Medicine - Primary Care 08/09/22 Vicky Chamberlain [facility] Staff Anesthesiologist 06/12/22 01/22/24 Leticia Lieberman [address] [place] [phone] General Surgery 04/03/23 Mendoza Guzmán MD [address] [place] [address] [address] [place] [address] Otolaryngology 04/03/23 documented as of this encounter
--- OUTSIDE RECORDS SUMMARY | 2024-02-08 01:08 | XMS_ITS | Encounter Summary ---
Author Organization [facility] Address [address] [place] [address] Care Team Providers Care Soccer Referee Name Role Phone Vicky Chamberlain Unavailable [phone] Dane Rick MD Primary Care Provider [phone] Reason for Referral * Radiology Services (Routine/Next Available) - Authorization Not Required Specialty Diagnoses / Procedures [facility] Referred To Contact Diagnoses Thyroid nodule Procedures US THYROID/NECK Mendoza Guzmán MD [address] [place] [phone] [facility] Referral ID Status Reason Start Date Expiration Date Visits Requested Visits Authorized [id number] Authorization Not Required 3 1 1 Reason for Visit * Reason Comments Follow-up Encounter Details Date Type Department Care Team ([facility] Contact Info) Description 03/29/2023 13:50 EST Office Visit [facility] ENT [address] [place] [address] Mendoza Guzmán MD [address] [place] [phone] Thyroid nodule (Primary Dx) Social History [...] place to sleep or slept in a mcc (including now)? No 03/15/2023 Interpersonal Safety Answer [...] Progress Notes * Mendoza Guzmán MD - 03/29/2023 1350 EST Images from the original note were not included. REASON FOR VISIT: Follow-up left inferior 3.4 cm category 4 thyroid nodule status post ultrasound-guided FNA SUBJECTIVE: Patient is doing well asymptomatic from the thyroid nodule OBJECTIVE: Final Diagnosis A. THYROID, LEFT LOBE, NODULE, ULTRASOUND-GUIDED FINE NEEDLE ASPIRATION: - Features consistent with a benign follicular nodule. See comment. Diagnosis Comment The smears show scattered groups of variably sized bland follicular cells with abundant admixed colloid. No papillary nuclear features or overt nuclear atypia are seen. The ThinPrep slide is reviewedand shows colloid with rare bland follicular cell groups. The collective findings are consistent with a benign follicular nodule. ASSESSMENT: Benign left thyroid nodule PLAN: Follow-up in 1 year with repeat ultrasound documented in this encounter Plan of Treatment Upcoming Encounters Date Type Department Care Team (Late st Contact Info) Description 05/19/2024 11:00 EST Office Visit [facility] Family Medicine [address], [facility] 2 [place] [address] Dane Rick MD [address] [place] [phone] Scheduled Orders Name Type Priority Associated Diagnoses Orde r Schedule US THYROID/NECK Imaging Routine Thyroid nodule Expected: 03/29/2024 (Approximate), Expires: 09/27/2024 documented as of this encounter Visit Diagnoses Diagnosis Thyroid nodule- Primary Nontoxic uninodular goiter documented in this encounter Care Teams Soccer Referee Relationship Specialty Start Date End Date Dane Rick MD [address] [place] [phone] PCP - General Family Medicine - Primary Care 08/09/22 Vicky Chamberlain LICSW Weigher Production 06/12/22 01/22/24 documented as of this encounter
--- OUTSIDE RECORDS SUMMARY | 2024-02-08 01:08 | XMS_ITS | Encounter Summary ---
Author Organization [facility] Address [address] [place] [address] Care Team Providers Care Buncher Hand Name Role Phone Vicky Chamberlain STICK FEEDER Unavailable [phone] Dane Rick MD Primary Care Provider [phone] Reason for Referral * Radiology Services (Routine/Next Available) - Authorization Not Required Specialty Diagnoses / Procedures Referred By Contac t Referred To Contact Nuclear Medicine Diagnoses Malignant neoplasm of upper-outer quadrant of right breast in female, estrogen receptor positive (HCC-CMS) Procedures NM BONE WHOLE BODY Xu Hendrix MD [address] [place], [place] [address] [address] [place] [address] [facility] Referral ID Status Reason Start Date Expiration Date Visits Requested Visits Authorized [id number] Authorization Not Required 3 1 1 Reason for Visit * Radiology Services (Routine/Next Available) - Authorization Not Required Specialty Diagnoses / Procedures Referred By Contac t Referred To Contact Nuclear Medicine Diagnoses Malignant neoplasm of upper-outer quadrant of right breast in female, estrogen receptor positive (HCC-CMS) Procedures NM BONE WHOLE BODY Xu Hendrix MD [address] [place] [address], [facility] [address] [place] [address] [facility] Referral ID Status Reason Start Date Expiration Date Visits Requested Visits Authorized [id number] Authorization Not Required 3 1 1 Encounter Details Date Type Department Care Team (Latest Contact Info) Description 03/02/2023 10:45 EST - 03/02/2023 10:48 EST Hospital Encounter [facility] [place] Medicine [address] [place] [address] Malignant neoplasm of upper-outer quadrant of right breast in female, estrogen receptor positive (HCC-[facility]) Discharge Disposition: Home or Self Care Social [...] Info) Description 05/19/2024 11:00 EST Office Visit [facility] [address], [address] [place] [address] Dane Rick MD [address] [facility] [address] [place] [address] documented as of this encounter [...] ??Probable multifocal degenerative uptake, as detailed above. [id number] Narrative 03/02/2023 14:47 EST NM BONE WHOLE [...] Probable multifocal degenerative uptake, as detailed above. [id number] Xu KIM NM ORDERABLES documented in this encounter Visit Diagnoses Diagnosis Malignant neoplasm of upper-outer quadrant of right breast in female, estrogen receptor positive (HCC-CMS) documented in this encounter Administered Medications Inactive Administered Medications - up to 3 most recent administrations Medication Order MAR Action Action Date Dose Rate Site technetium (Tc-99m) methylene diphosphonate (MDP) injection 20 millicurie 20 millicurie, radiopharm IV, Once in imaging, 1 dose, Starting on Sun03/02/23 at 1050, Until Sun03/02/23 at 1115, Routine, Imaging Protocol Orders Given 03/02/2023 11:15 EST 20.7 millicuries documented in this encounter Care Teams Buncher Hand Relationship Specialty Start Date End Date Dane Rick MD [address] [place] [phone] PCP - General Family Medicine - Primary Care 08/09/22 Vicky Chamberlain, [facility] Laborer Cement Gun Placing 06/12/22 01/22/24 documented as of this encounter
--- OUTSIDE RECORDS SUMMARY | 2024-02-08 01:08 | XMS_ITS | Encounter Summary ---
Author Organization [facility] Address [address] [place] [address] Care Team Providers Care Parts Sales Representative Name Role Phone Vicky Chamberlain Unavailable [phone] Dane Rick MD Primary Care Provider [phone] Reason for Visit * Reason Comments Other Discuss breast surge ryContinue magnesium?Fyi- pt declined weight today Encounter Details Date Type Department Care Team ([facility] Contact Info) Description 03/08/2023 11:00 EST Office Visit [facility] [address], [address] [place] [address] Dane Rick MD [address] [facility] [address] [place] [address] Thickened endometrium (Primary Dx); TMJ derangement; Invasive ductal carcinoma of right breast (HCC-CMS) [...] slept in a residential (including now)? No 05/02/2022 Interpersonal Safety Answer [...] Sign Reading Time Taken Comments Blood Pressure 128/80 03/08/2023 1103 EST Pulse 60 03/08/2023 1103 EST Temperature - - Respiratory Rate 20 03/08/2023 1103 EST Oxygen Saturation 99% 03/08/2023 1103 EST Inhaled Oxygen Concentration - - Weight [...] Progress Notes * Dane Rick MD - 03/08/2023 1100 EST Patient Name: Kenyatta Vizcaino Age: 82 y.o. Date: 03/08/23 ASSESSMENT/PLAN: Problem List Items Addressed This Visit Thickened endometrium - Primary Noted on recent CT scan. No recent bleeding or pain. Will get nonurgent pelvic US after breast surgery TMJ derangement Soft food, bite guard at night, Tylenol for pain Invasive ductal carcinoma of right breast (HCC-CMS) Reviewed imaging. Continue to follow with surgery and Hematology A total of 32 minutes was spent in reviewing medical history, performing examination and evaluation, counseling, ordering and interpreting tests, care coordination, and documenting clinical information on the day of the encounter. For any new medications prescribed today, patient was educated about indications for the medication, how to take the medication and potential side effects of the medications. Counseling given: Not Answered SUBJECTIVE Kenyatta Vizcaino is a 82 y.o. female here for TMJ Saw donnie Craig today She would like curative treatment with surgery if safe. Frustrated with care but feeling better these days Jaw pain with pain on mastication, trouble opening her mouth on that side, effects her speech, thinks this is related to a stroke in the past Reviewed imaging with patient Lymph nodes on CT There are a few subcentimeter right axillary lymph nodes. Although these lymph nodes are within normal limits for size, the demonstrate no definite fatty faustino, raising the possibility that they may be pathologic/metastatic in nature. Endometrial strip thickened The endometrial stripe is abnormally thickened for the postmenopausal state, measuring up to 8 mm in diameter. Correlate for dysfunctional uterine bleeding. Recommend nonemergent pelvic ultrasound for further evaluation. No convincing scintigraphic evidence of osseous metastatic disease Esophageal thickening moderate circumferential wall thickening of the midesophagus, which may be associated with luminal narrowing. Differential possibilities include esophagitis and esophageal mass cannot be excluded. Recommend esophagram or upper endoscopy for further evaluation. Suggest GI consult. Review of Systems ALLERGIES/INTOLERANCES Allergies Allergen Reactions ??? Amoxicillin-Pot Clavulanate Rash ??? Atorvastatin Muscle Aches ??? Flagyl [Metronidazole] ??? Metoprolol Other (See Comments) heart failure? Penicillins ??? Zithromax [Azithromycin] OBJECTIVE Vitals: 03/08/23 1103 BP: 128/80 BP Cuff Location: Left arm BP Patient Position: Sitting BP Cuff Sizes: Adult, regular Pulse: 60 Resp: 20 SpO2: 99% General appearance - alert, well appearing Respiratory- no increased work of breathing Heart - normal rate MSK: left TM joint tender to palpation, no masses or defects, normal range of motion, stable joint without laxity, strength appropriate with normal muscle tone Psych: normal judgement and insight, mood and affect normal Dane Rick MD documented in this encounter Miscellaneous Notes * Assessment & Plan Note - Dane Rick MD - 03/08/2023 1143 ESTAssociated Problem(s): TMJ derangement Soft food, bite guard at night, Tylenol for pain * Assessment & Plan Note - Dane Rick MD - 03/08/2023 1141 ESTAssociated Problem(s): Thickened endometrium Noted on recent CT scan. No recent bleeding or pain. 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 Assistant Women'S Tennis Coach 06/12/22 01/22/24 documented as of this encounter
--- OUTSIDE RECORDS SUMMARY | 2024-02-08 01:09 | XMS_ITS | Encounter Summary ---
Author Organization [facility] Address [address] [place] [address] Care Team Providers Care Feather Stitcher Name Role Phone Vicky ChamberlainSW Unavailable [phone] Dane Rick MD Primary Care Provider [phone] Reason for Referral * Radiology Services (Routine/Next Available) - Authorization Not Required Specialty Diagnoses / Procedures Referred By Franky ferreira Referred To Contact Diagnoses Mass of upper outer quadrant of right breast Lymphadenopathy, axillary Breast pain, right Procedures MA BREAST DIAGNOSTIC LULA BILATERAL Tamy Howe DO [address] [facility] [place] [address] [place] [address] [facility] Referral ID Status Reason Start Date Expiration Date Visits Requested Visits Authorized [id number] Authorization Not Required 01/03/2023 1 1 Reason for Visit * Reason Comments Follow-up Breast changes Encounter Details Date Type Department Care Team ([facility] Contact Info) Description 01/03/2023 11:15 EDT Office Visit [facility] Family Medicine - [place] [address] [place] [address] Tamy Howe DO [address] [facility] [place] [address] [place] [address] Mass of upper outer quadrant of right breast (Primary Dx); Lymphadenopathy, axillary; Breast pain, right Social History Tobacco Use Types Packs/Day [...] place to sleep or slept in a group home (including now)? No 05/02/2022 Interpersonal Safety Answer [...] Sign Reading Time Taken Comments Blood Pressure 148/82 01/03/2023 1146 EDT Pulse 53 01/03/2023 1146 EDT Temperature - - Respiratory Rate 14 01/03/2023 1146 EDT Oxygen Saturation 98% 01/03/2023 1146 EDT Inhaled Oxygen Concentration - - Weight 67.1 kg (148 lb) 01/03/2023 1146 EDT Height - - Body Mass Index 29.89 12/26/2022 1039 EDT documented in this encounter Functional Status Functional Status Response Date of Assess ment Are you deaf or do you have serious difficulty h earing? No 10/20/2022 Are you blind or do you have [...] as of this encounter Progress Notes * Tamy Howe, - 01/03/2023 1115 EDT Images from the original note were not included. Encounter date: 01/03/2023 Chief complaint Chief Complaint Patient presents with ??? Follow-up Breast changes Assessment and Plan Kenyatta is a/an 82 y.o. female with the following identified concerns discussed during this medicalencounter: ICD-10-CM ICD-9-CM 1. Mass of upper outer quadrant of right breast N63.11 611.72 MA BREAST DIAGNOSTIC LULA BILATERAL US BREAST LIMITED BILATERAL 2. Lymphadenopathy, axillary R59.0 785.6 MA BREAST DIAGNOSTIC LULA BILATERAL US BREAST LIMITED BILATERAL 3. Breast pain, right N64.4 611.71 MA BREAST DIAGNOSTIC LULA BILATERAL US BREAST LIMITED BILATERAL HIGHLY SUSPICIOUS FOR MALIGNANCY WITH METASTASIS TO LYMPH NODE NEEDS DIAGNOSTIC MAMMOGRAM BILATERALLY AND ULTRASOUND RIGHT AWAY Follow-up as per arranged with PCP A total of 40 minutes was spent in reviewing medical history, performing examination and evaluation, counseling, ordering and interpreting tests, care coordination, and documenting clinical information on the day of the encounter. Orders Other Orders Placed This Visit Procedures ??? MAMMO BREAST DIAGNOSTIC LULA BILATERAL ??? US BREAST LIMITED BILATERAL Discontinued Medications There are no discontinued medications. Subjective HPI Kenyatta is a/an 82 y.o. female who presents for evaluation of right breast lump found by patient I do not see any mammograms in her chart - she states she has not had a mammogram in many years dueto the pain she barba experienced in the past with her mammograms - to the point of bruising she tellsme States that for possibly 6 months and maybe longer she has had some vague discomfort of the outer aspect of the right breast and she did palpate the breast but only from the anterior most aspect directly toward the chest wall and the in the past few days she palpate from her axillary region and that is when she noted the non painful mass in the outer aspect of breast and a smaller lump in the armpit Here today for evaluation of the breast Accompanied by her daughter She tells me she has had a 70 lbs weight loss in the last year but insists it was intentional But this is suspicious from my perspective Denies any night sweats, fatigue. She denies any lumps in the left breast but reports a lot of pain in the left shoulder and up into her lateral neck and side of face and asked if this could be related to the breast mass Explained that I am not certain but she will certainly need mammogram for both breast and ultrasound to Evaluate for any masses on either side Briefly discussed what to expect of mammogram is abnormal - process of referral to general surgery for biopsy to get tissue diagnosis in order to formulate a plan based on this information She understands as does her daughter I did explain after the examination that the findings are highly suspicious for malignancy and brats imaging will be arranged right away Past immunizations, medical history, surgical history, allergies, and medications all reviewed. This information was modified in the electronic health record as indicated. Problem List Patient Active Problem List Diagnosis Date Noted ??? Hypercalcemia 09/19/2022 ??? Left shoulder pain 09/19/2022 ??? Chronic pain of left knee 09/19/2022 ??? CVA (cerebral vascular accident) ([facility]) 03/21/2021 ??? Hemiplegia and hemiparesis following cerebral infarction affecting right dominant side ([facility]) 03/21/2021 ??? Congestive heart failure ([facility]) 02/22/2021 ??? Nontoxic multinodular goiter 09/03/2020 ??? Left leg pain 09/04/2019 ??? Arteriosclerotic cardiovascular disease 05/06/2019 ??? Balance problem 05/06/2019 ??? Chronic post-traumatic headache, not intractable 05/06/2019 ??? Depression with anxiety 05/06/2019 ??? Diverticular disease of colon 05/06/2019 ??? Essential (primary) hypertension 05/06/2019 ??? Hypercholesterolemia 05/06/2019 ??? Injury of head 05/06/2019 ??? Obesity 05/06/2019 ??? ABDOULAYE (obstructive sleep apnea) 05/06/2019 ??? Traumatic brain injury with loss of consciousness ([facility]) 05/06/2019 ??? Trigeminal neuralgia 05/06/2019 ??? Unspecified rotator cuff tear or rupture of right shoulder, not specified as traumatic 05/06/2019 ??? Vertigo 05/06/2019 Medications Current Outpatient Medications: ??? aspirin 81 mg EC tablet, Take 1 Tablet by mouth every 48 hours. (Patient not taking: Reported on 12/26/2022), Disp: , Rfl: ??? doxycycline (VIBRA-TABS) 100 mg tablet, , Disp: , Rfl: ??? furosemide (LASIX) 20 mg tablet, TAKE 2 TABLETS BY MOUTH ONCE DAILY IN THE MORNING AND 1 IN THEAFTERNOON, Disp: 270 Tablet, Rfl: 0 ??? hydrOXYzine (ATARAX) 25 mg tablet, Take 1 Tablet by mouth 3 times daily as needed for Itching. (Patient not taking: Reported on 10/12/2022), Disp: 60 Tablet, Rfl: 0 ??? losartan (COZAAR) 100 mg tablet, Take 1 Tablet by mouth daily., Disp: 90 Tablet, Rfl: 1 Allergies Allergies Allergen Reactions ??? Amoxicillin-Pot Clavulanate Rash ??? Atorvastatin Muscle Aches ??? Flagyl [Metronidazole] ??? Metoprolol Other (See Comments) heart failure? Penicillins ??? Zithromax [Azithromycin] Review of Systems Review of Systems As per HPI Objective Blood pressure (!) 148/82, pulse 53, resp. rate 14, weight 67.1 kg (148 lb), SpO2 98 %. Physical Exam Vitals and nursing note reviewed. Exam conducted with a assembly mechanic present (Dtr is present). Constitutional: General: She is not in acute distress. Appearance: Normal appearance. She is not ill-appearing. HENT: Head: Normocephalic and atraumatic. Eyes: Extraocular Movements: Extraocular movements intact. Conjunctiva/sclera: Conjunctivae normal. Pupils: Pupils are equal, round, and reactive to light. Chest: Neurological: Mental Status: She is alert. Psychiatric: Mood and Affect: Mood normal. Behavior: Behavior normal. Thought Content: Thought content normal. Judgment: Judgment normal. Electronically signed by Tamy Howe DO 01/03/23 12:50 [place], [place] documented in this encounter Plan of Treatment Upcoming Encounters Date Type Department Care Team (Late st Contact Info) Description 05/19/2024 11:00 EST Office Visit [address] [place], [place] [address] Dane Rick MD [address] [place] [address] [address] [place] [address] documented as of this encounter Results * (ABNORMAL) MA BREAST DIAGNOSTIC LULA BILATERAL (01/23/2023 11:03 EDT) Anatomical Region Laterality Modality Breast Bilateral Mammography 01/23/2023 15:3 5 EDT Addenda Addendum by Rylan Thapa MD on 01/24/2023 15:58 EDT Addendum: A preliminary report t and confirmation of Findings and Recommendations was given to TOBIAS at the office of Tamy Howe on 01/24/2023 at 2:25 PM by Halina. If biopsy is performed at [facility], the referring provider will need to send a referral to the office of [facility] General Surgery. [id number] Narrative 01/23/2023 15:35 EDT US BREAST LIMITED RIGHT, MA BREAST DIAGNOSTIC LULA BILATERAL ?? SIGNS AND SYMPTOMS/COMMENTS: ??LARGE MASS OF RIGHT BREAST AND ASOCIATED ENLARGED AXILLARY LYMPH NODE, HIGHLY SUSPICIOUS FOR MALIGNANCY;N63.11:MASS OF UPPER OUTER QUADRANT OF RIGHT BREAST;R59.0:LYMPHADENOPATHY, AXILLARY;N64.4:BREAST PAIN, RIGHT COMPARISONS: Comparison has been made to prior examinations, most recently May 2008. FINDINGS: RIGHT BREAST MAMMOGRAPHY: Full field digital whole breast 2D (C-view) and 3D CC, MLO and ML and spot compression MLO views of the right breast were obtained. CAD technology was utilized. * ??There are scattered areas of fibroglandular density. * ??A marker was placed over the outer right breast to denote an area of palpable concern. In the outer right breast at the 9 o'clock position, centered 5 cm from the nipple is an irregular spiculated mass measuring approximately 2.8 cm. * ??No suspicious microcalcifications are present. RIGHT BREAST ULTRASOUND: The outer half of the right breast was scanned from the 8 o'clock position to the 10 o'clock position. The right axilla was also scanned. * ??Corresponding with the site of palpable concern, at the 9 o'clock position, 5 cm from the nipple, there is an irregular hypoechoic mass measuring 2.4 x 2.1 x 2.1 cm. It demonstrates angular margins with portions taller than wide and mild posterior acoustic shadowing. * ??There is an adjacent oval 0.8 x 0.4 x 0.6 cm lesion, suspicious for a satellite lesion located approximately 1 cm from the primary lesion (image 70). * ??The axilla was scanned and multiple morphologically abnormal lymph nodes are present, including a hypoechoic node measuring 1.4 x 0.9 x 0.9 cm with near complete absence of a fatty hilum. LEFT BREAST MAMMOGRAPHY: Full field digital whole breast 2D (C-view) and 3D CC and MLO views of the left breast were obtained. CAD technology was utilized. ?? * ??There are scattered areas of fibroglandular density. There is no suspicious mass, architectural distortion or suspicious microcalcification. FINAL ASSESSMENT: ??DIAGNOSTIC RIGHT BREAST MAMMOGRAM/ULTRASOUND - BI-RADS Category 5 -highly suggestive of malignancy; biopsy should be considered. * ??Dominant 2.4cm irregular right breast mass with nearby 0.8 cm satellite lesion, highly suggestive of malignancy. * ??Numerous morphologically normal right axillary lymph nodes. * ??Recommend tissue sampling. FINAL ASSESSMENT: ??SCREENING LEFT BREAST MAMMOGRAM - BI-RADS Category 1 [...] by Halina. If biopsy is performed at [facility], the referring provider will need to send a referral to the office of [facility] General Surgery. [id number] Tamy Howe DO IMG MAMMOGRAPHY ORDERABLES documented in this encounter Visit Diagnoses Diagnosis Mass of upper outer quadrant of right breast- Primary Lymphadenopathy, axillary Enlargement of lymph nodes Breast pain, right Mastodynia Mass of upper outer quadrant of right breast Lymphadenopathy, axillary Enlargement of lymph nodes Breast pain, right Mastodynia documented in this encounter Care Teams Feather Stitcher Relationship Specialty Start Date End Date Dane Rick MD [address] [place] [phone] PCP - General Family Medicine - Primary Care 08/09/22 Vicky Chamberlain LICSW Communications Project Lead 06/12/22 01/22/24 documented as of this encounter
--- OUTSIDE RECORDS SUMMARY | 2024-02-08 01:09 | XMS_ITS | Encounter Summary ---
Author Organization [facility] Address [address] [place] [address] Care Team Providers Care Switch Inspector Name Role Phone Vicky Chamberlain Unavailable [phone] Dane Rick MD Primary Care Provider [phone] Encounter Details Date Type Department Care Team (Latest Contact Info) Description 01/18/2023 Travel Social History Tobacco Use Types Packs/Day [...] Info) Description 05/19/2024 11:00 EST Office Visit Health system Family Medicine [address] [place] [address] Dane Rick MD [address] [facility] [address] [place] [address] documented as of this encounter Visit Diagnoses Not on filedocumented in this encounter Care Teams Switch Inspector Relationship Specialty Start Date End Date Dane Rick MD [address] [place] [phone] PCP - General Family Medicine - Primary Care 08/09/22 Vicky Chamberlain, [facility] Clerk Travel Reservations 06/12/22 01/22/24 documented as of this encounter
--- OUTSIDE RECORDS SUMMARY | 2024-02-08 01:09 | XMS_ITS | Encounter Summary ---
Author Organization [facility] Address [address] [place] [address] Care Team Providers Care Hand Stapler Name Role Phone BulmaroVicky LATRICE Unavailable [phone] Dane Rick MD Primary Care Provider [phone] Encounter Details Date Type Department Care Team ([facility] st Contact Info) Description 01/31/2023 Patient Outreach [facility] Family Medicine - [facility] [address] [phone] Vicky Chamberlain LICSW [address] [facility] [address] [place] [address] Social History Tobacco Use Types [...] this encounter Progress Notes * Vicky Chamberlain, ROAD ROLLER ENGINEER - 01/31/2023 1859 EDT [facility] Follow Up Golf Course Ranger followed up with Kenyatta by phone for Ultrasound results. TOPIC OF CONVERSATION: ??? Reviewed assessment and plan from previous visit with patient. ??? Engaged patient in conversation related to positive behavior change, self- management, goal setting and action planning using motivational interviewing and active listening. - Discussed ultrasound results - Kenyatta mentioned that she would like to consider a second opinion, preferably at [facility]. - CM will coordinate with PCP - Kenyatta requests text message with appointments sent to herself and daughter, Adriana Prioritized Patient Identified Goals: 1. Kenyatta will attend future diagnostic appointments Achievement towards goals: In progress 2. CM will coordinate with Dr. Rick for care coordination with diagnosis and second opinions. Achievement towards goals: In progress Plan: CM will continue to reach out to Kenyatta weekly for support Next Golf Course RangerUnderwriting Account Representative: 02/06/2023 LATRICE ENCISO 01/31/2023 17:46 documented in this encounter Plan of Treatment Upcoming Encounters Date Type Department Care Team (Late st Contact Info) Description 05/19/2024 11:00 EST Office Visit [facility] Family Medicine [address], [email or web address] [address] [place], [place] [phone] Dane Rick MD [address] [place] [phone] documented as of this encounter Visit Diagnoses Not on filedocumented in this encounter Care Teams Hand Stapler Relationship Specialty Start Date End Date Dane Rick MD [address] [place] [address] [address] [place] [phone] PCP - General Family Medicine - Primary Care 08/09/22 Vicky Chamberlain LICSW Golf Course Ranger 06/12/22 01/22/24 documented as of this encounter
--- OUTSIDE RECORDS SUMMARY | 2024-02-08 01:09 | XMS_ITS | Encounter Summary ---
Author Organization [facility] Address [address] [place] [address] Care Team Providers Care Toolmaker Name Role Phone BulmaroVicky LATRICE Unavailable [phone] Dane Rick MD Primary Care Provider [phone] Encounter Details Date Type Department Care Team ([facility] st Contact Info) Description 12/18/2022 Patient Outreach [facility] Family Medicine - [facility] [address] [phone] Vicky Chamberlain LICSW 130 [facility] [address] [place] [address] Social History Tobacco Use Types [...] in a care home (including now)? No 05/02/2022 Interpersonal Safety [...] this encounter Progress Notes * Vicky Chamberlain, SURFBOARD DESIGNER - 12/18/2022 1624 EDT [facility] Care Management Follow Up [place] followed up with Kenyatta by phone for general health care follow up. TOPIC OF CONVERSATION: ??? Reviewed assessment and plan from previous visit with patient. ??? Engaged patient in conversation related to positive behavior change, self- management, goal setting and action planning using motivational interviewing and active listening. Discussed vision concern; - CM will make referral to [facility] for insurance coverage clarity. Dental; - Continues to attend dental appointments Financial; - Struggling financially; [facility] referral will be helpful to overview any discount programs. Prioritized Patient Identified Goals: 1. Kenyatta will call [facility] SHIP counselor with in one month to request appointment to discuss increasing benefits for health care. Achievement towards goals: In progress 2. Kenyatta will continue to follow up with scheduled appointments and recommendations from her providers.?? Achievement towards goals: In progress Plan: Next DehornerDatabase Specialist: 01/08/2023 LATRICE ENCISO 12/18/2022 16:25 documented in this encounter Plan of Treatment Upcoming Encounters Date Type Department Care Team (Late st Contact Info) Description 05/19/2024 11:00 EST Office Visit [facility] Family Medicine [facility] 246 [facility], [facility] 2 [place], [place] [phone] Dane Rick MD [address] [place] [address] 2 [place] [address] documented as of this encounter Visit Diagnoses Not on filedocumented in this encounter Care Teams Toolmaker Relationship Specialty Start Date End Date Dane Rick MD [address] [place] [address] 2 [place] [phone] PCP - General Family Medicine - Primary Care 08/09/22 Vicky Chamberlain LICSW [place] 06/12/22 01/22/24 documented as of this encounter
--- OUTSIDE RECORDS SUMMARY | 2024-02-08 01:09 | XMS_ITS | Encounter Summary ---
Author Organization [facility] Address [address] [place] [address] Care Team Providers Care Custom Framing Specialist Name Role Phone BulmaroVicky LATRICE Unavailable [phone] Dane Rick MD Primary Care Provider [phone] Encounter Details Date Type Department Care Team ([facility] st Contact Info) Description 01/23/[address] [facility] Family Medicine - [facility] [address] [phone] Vicky Chamberlain LICSW 130 [facility] [address] [place] [address] Social History Tobacco Use Types [...] in a senior care (including now)? No 05/02/2022 Interpersonal Safety Answer [...] as of this encounter Progress Notes * Vciky Chamberlain, REPLENISHER - 01/23/2023 1436 EDT [facility] Escrow Agent Care Coordination Escrow Agent spoke with Kenyatta, and daughter Adriana on 01/23/2023 in order to coordinate care. CM spoke with Kenyatta yesterday, on 01/22. Kenyatta presented as anxious describing again the situation with 3 squares and confusion about the Life Alert, which she remedied by changing her banking information. Concerned about her heightened anxiety and that Kenyatta did not recall speaking with this CM about this concern on Sunday, CM made phone call to Adriana, Kenyatta's daughter in-law environmental health and safety manager also notes that, the breast imaging from today has come back concerning, noting need for a biopsy with orders placed today. - RADHA speaks with Adriana who mentions that some of Kenyatta's personality and mood adjustments might berelated to pain. - Kenyatta and I have discussed that Kenyatta has a typical high tolerance or abnormal tolerance for pain and typically does not report well on pain or how she is physically feeling. 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 CM also spoke with Adriana about the possibility of getting assistance in her home, if needed. - Discussed the [facility] care medicaid application and the variety of choices that could be created. - Adriana is interested in speaking more about these options, and would like to discuss more after some thought. Adriana also wonders about the biopsy scheduling, RADHA notes that this should happen quickly and surgeryshould be in contact with Kenyatta soon. PLAN: CM will reach out to PCP to discuss pain management CM will reach out to Kenyatta next week to ensure assistance/appointment follow up Next Escrow AgentGreenhouse Specialist: 01/30/2023 LATRICE ENCISO 01/23/2023 14:38 * Dane Rick MD - 01/23/2023 1236 EDT Hi Vicky, she had a concerning breast mass, so anbreast biopsy should be done sooner rather than later. I agree there is some mind body disconnect. I'll continue to work with her on this at our visits. Thanks for the update. documented in this encounter Plan of Treatment Upcoming Encounters Date Type Department Care Team (Late Contact Info) Description 05/19/2024 11:[address] [facility] Family Medicine [address], [facility] 2 [place] [address] Dane Rick MD [address] [place] [phone] documented as of this encounter Visit Diagnoses Not on filedocumented in this encounter Care Teams Custom Framing Specialist Relationship Specialty Start Date End Date Dane Rick MD [address] [place] [phone] PCP - General Family Medicine - Primary Care 08/09/22 Vicky Chamberlain, LATRICE Escrow Agent 06/12/22 01/22/24 documented as of this encounter
--- OUTSIDE RECORDS SUMMARY | 2024-02-08 01:09 | XMS_ITS | Encounter Summary ---
Author Organization [facility] Address [address] [place] [address] Care Team Providers Care Generator Mechanic Name Role Phone Vicky ChamberlainSW Unavailable [phone] Dane Rick MD Primary Care Provider [phone] Reason for Visit * Reason Comments Follow-up Encounter Details Date Type Department Care Team ([facility] Contact Info) Description 01/30/2023 13:30 EDT Office Visit [facility] ENT [address] [place] [address] Mendoza Guzmán MD 130 [facility] [address] [place] [address] Thyroid nodule (Primary Dx) Social [...] slept in a custodial (including now)? No 05/02/2022 Interpersonal Safety Answer [...] Progress Notes * Mendoza Guzmán MD - 01/30/2023 1330 EDT REASON FOR VISIT: Follow-up thyroid nodule status post ultrasound SUBJECTIVE: No thyroid complaints the patient has left head neck and face pain OBJECTIVE: Ultrasounds were read and reviewed.FINDINGS: Right thyroid lobe: Right lobe: 3 x 1.9 x 1.8 cm. Hypoechoic solid nodule in the upper pole of approximately 0.7 x 0.9 x 0.6 cm.TIRADS 4. Hypoechoic nodule in the mid polar region of approximately 1.1 x 1.2 x 0.7 cm.TIRADS 4. Isoechoic nodule in the lower polar region of approximately 1.2 x 0.8 x 0.8 cm.TIRADS 3. Left thyroid lobe: Left lobe: 4.9 x 2.7 x 3.7 cm . Isoechoic nodule in the upper polar region of approximately 1.2 x 1.1 x 1.2 cm.TIRADS 4. Hyperechoic nodule inferiorly of approximately 3.4 x 2 x 2.7 cm. TIRADS 4. Isthmus: Not thickened. ASSESSMENT: Enlarging left inferior 3.4 cm thyroid nodule increased from 2.9 cm PLAN: We will schedule patient for ultrasound-guided FNA documented in this encounter Plan of Treatment Upcoming Encounters Date Type Department Care Team (Late st Contact Info) Description 05/19/2024 11:00 EST Office Visit [facility] Family Medicine [address], [address] [address] Dane Rick MD [address] [place] [phone] documented as of this encounter Visit Diagnoses Diagnosis Thyroid nodule- Primary Nontoxic uninodular goiter documented in this encounter Care Teams Generator Mechanic Relationship Specialty Start Date End Date Dane Rick MD [address] [place] [phone] PCP - General Family Medicine - Primary Care 08/09/22 Vicky Chamberlain LICSW Public Policy Associate 06/12/22 01/22/24 documented as of this encounter
--- OUTSIDE RECORDS SUMMARY | 2024-02-08 01:09 | XMS_ITS | Encounter Summary ---
Author Organization [facility] Address [address] [place] [address] Care Team Providers Care Hosiery Mender Name Role Phone Vicky Chamberlain Unavailable [phone] Dane Rick MD Primary Care Provider [phone] Leticia Lieberman Unavailable Mendoza Guzmán MD Unavailable [phone] Reason for Visit * Reason Onset Date Comments Appointment Related 01/29/2023 Kenyatta call ed she will be at her appointment tomorrow 01/30 at 1:30pm.She accidentally hit the cancel button when the automatic appointment reminder call came out Encounter Details Date Type Department Care Team ([facility] Contact Info) Description 01/29/2023 Telephone [facility] - [facility] ENT [address] [place] [address] Mendoza Guzmán MD [address] [place] [address] [address] [place] [address] Appointment Related (Kenyatta called she will be at her appointment tomorrow 01/30 at 1:30pm.She accidentally hit the cancel button when the automatic appointment reminder call came out ) Social History Tobacco Use Types Packs/Day Years [...] No 03/21/2021 Cognitive Status Response Date of Assess ent Because of a physical, menta l, or emotional condition, do you have serious difficulty concentrating, remembering, or making decisions? (5 years old or older) No 03/21/2021 documented as of this encounter Miscellaneous Notes * Telephone Encounter - Rukhsana Mariano LNA - 01/29/2023 1752 EDT Kenyatta called she will be at her appointment tomorrow 01/30 at 1:30pm.She accidentally hit the cancel button when the automatic appointment reminder call came out documented in this encounter Plan of Treatment Upcoming Encounters Date Type Department Care Team (Late st Contact Info) Description 05/19/2024 11:00 EST Office Visit [facility] Family [address], [facility] 2 [place] [address] Dane Rick MD [address] [place] [phone] documented as of this encounter Visit Diagnoses Not on filedocumented in this encounter Additional Health Concerns Infection Onset Date Last Indicated Resolved Time R/O COVID-19 08/13/2023 08/13/2023 08/13/2023 20:0 7 EDT documented as of this encounter Care Teams Hosiery Mender Relationship Specialty Start Date End Date Dane Rick MD [address] [place] [phone] PCP - General Family Medicine - Primary Care 08/09/22 Vicky Chamberlain [facility] Flavoring Oil Filterer 06/12/22 01/22/24 Leticia Lieberman [address] [place] [phone] General Surgery 04/03/23 Mendoza Guzmán MD [address] [place] [phone] Otolaryngology 04/03/23 documented as of this encounter
--- OUTSIDE RECORDS SUMMARY | 2024-02-08 01:09 | XMS_ITS | Encounter Summary ---
Author Organization [facility] Address [address] [place] [address] Care Team Providers Care Tariff Clerk Name Role Phone Vicky ChamberlainSW Unavailable [phone] Dane Rick MD Primary Care Provider [phone] Encounter Details Date Type Department Care Team (Late st Contact Info) Description 12/27/2022 Orders Only [facility] - [facility] [address] [place] [address] Shannon Gee Social History Tobacco Use Types Packs/Day Years [...] [facility] Family Medicine [address], [place] [address] [place] [address] Dane Rick MD 246 [facility] [address] [place] [address] documented as of this encounter Visit Diagnoses Not on filedocumented in this encounter Care Teams Tariff Clerk Relationship Specialty Start Date End Date Dane Rick MD [address] [place] [phone] PCP - General Family Medicine - Primary Care 08/09/22 Vicky Chamberlain, [facility] Manager Cardiology 06/12/22 01/22/24 documented as of this encounter
--- OUTSIDE RECORDS SUMMARY | 2024-02-08 01:09 | XMS_ITS | Encounter Summary ---
Author Organization [facility] Address [address] [place] [address] Care Team Providers Care Dental Hygiene Administrative Assistant Name Role Phone Vicky ChamberlainSW Unavailable [phone] Dane Rick MD Primary Care Provider [phone] Reason for Visit * Reason Onset Date Comments Results 01/25/2023 Encounter Details Date Type Department Care Team ([facility] Contact Info) Description 01/25/2023 Telephone [facility] Family Medicine - [address], [place] [address] [place] [address] Tamy Howe, DO [address] [place] [address] Results Social History Tobacco Use Types Packs/Day Years [...] encounter Miscellaneous Notes * Telephone Encounter - Tamy Howe, - 01/25/2023 0723 EDT Right Breast Imaging is - as expected - highly suspicious for malignancy Pt needs urgent referral to general surgery It appears this was already addressed so I will close the result documented in this encounter Plan of Treatment Upcoming Encounters Date Type Department Care Team (Late st Contact Info) Description 05/19/2024 11:00 EST Office Visit [facility] Family Medicine [address], [facility] 2 [place] [address] Dane Rick MD [address] [place] [phone] documented as of this encounter Visit Diagnoses Not on filedocumented in this encounter Care Teams Dental Hygiene Administrative Assistant Relationship Specialty Start Date End Date Dane iRck MD [address] [place] [phone] PCP - General Family Medicine - Primary Care 08/09/22 Vicky Chamberlain AVIATION SURVIVAL TECHNICIAN Systems Protection Technician 06/12/22 01/22/24 documented as of this encounter
--- OUTSIDE RECORDS SUMMARY | 2024-02-08 01:09 | XMS_ITS | Encounter Summary ---
Author Organization [facility] Address [address] [place] [address] Care Team Providers Care Aircraft Mechanic Structures Name Role Phone Vicky Chamberlain Unavailable [phone] Dane Rick MD Primary Care Provider [phone] Leticia Lieberman Unavailable Mendoza Guzmán MD Unavailable [phone] Reason for Visit * Reason Onset Date Comments Biopsy 02/07/2023 Encounter Details Date Type Department Care Team (Late st Contact Info) Description 02/07/2023 Telephone [facility] Family Medicine [address], [facility] 2 [place] [address] Dane Rick MD 246 [facility] [address] [place] [phone] Biopsy Social History Tobacco Use Types Packs/Day Years [...] Telephone Encounter - Dane Rick MD - 02/08/2023 1721 EST Thank you Vicky! * Telephone Encounter - Vicky Chamberlain LICSW - 02/08/2023 1605 EST Spoke with patient, ensured that she is keeping appointment with Dr. Craig tomorrow. Kenyatta plans to attend tomorrows appointment, this CM will also attend appointment to ensure that the information offered to Kenyatta is understood. * Telephone Encounter - Elisabet Luis RN - 02/08/2023 1102 EST Chelsea from the biopsy department called. She tried to Have pt keep appmt tomorrow with surgeon tohave her questions answered. * Telephone Encounter - Dane Rick MD - 02/07/2023 1649 EST Noted thank you * Telephone Encounter - Elisabet Luis RN - 02/07/2023 1633 EST Pt called She is angry does not want the biopsy without talking to CHIRAG. I reassured her that no one is making her have a bx or surgery. * Telephone Encounter - Marta Oh - 02/07/2023 1625 EST Patient called to report she is going to cancel her biopsy on Sunday. She asked to speak with CHIRAG inperson directly. I explained CHIRAG is not here today and she agreed to speak with nursing. documented in this encounter Plan of Treatment Upcoming Encounters Date Type Department Care Team (Late st Contact Info) Description 05/19/2024 11:00 EST Office Visit [facility] Family [facility] 246 [facility], [facility] 2 [place] [address] Dane Rick MD [address] [place] [address] 2 [place] [phone] documented as of this encounter Visit Diagnoses Not on filedocumented in this encounter Additional Health Concerns Infection Onset Date Last Indicated Resolved Time R/O COVID-19 08/13/2023 08/13/2023 08/13/2023 20:0 7 EDT documented as of this encounter Care Teams Aircraft Mechanic Structures Relationship Specialty Start Date End Date Dane Rick MD [address] [place] [address] 2 [place] [phone] PCP - General Family Medicine - Primary Care 08/09/22 Vicky Chamberlain [facility] Chief Revenue Officer 06/12/22 01/22/24 Leticia Lieberman [address] [place] [phone] General Surgery 04/03/23 Mendoza Guzmán MD [address] [place] [address] [address] [place] [address] Otolaryngology 04/03/23 documented as of this encounter
--- OUTSIDE RECORDS SUMMARY | 2024-02-08 01:09 | XMS_ITS | Encounter Summary ---
Author Organization [facility] Address [address] [place] [address] Care Team Providers Care Tax Specialist Name Role Phone Vicky Chamberlain Unavailable [phone] Dane Rick MD Primary Care Provider [phone] Reason for Visit * Reason Onset Date Comments Update 01/25/2023 Encounter Details Date Type Department Care Team ([facility] st Contact Info) Description 01/25/2023 Telephone [facility] Family Medicine [address], [place] [address] [place] [address] Dane Rick MD 246 [facility] [address] [place] [phone] Update Social History Tobacco Use Types Packs/Day [...] encounter Miscellaneous Notes * Telephone Encounter - Diamond Martin RN - 01/25/[address] Rick aware. * Telephone Encounter - Radha Carmen - 01/25/2023 0903 EDT Julia form General Surgery called to let JI know patient rescheduled appt to 02/09 due to not feeling well. documented in this encounter Plan of Treatment Upcoming Encounters Date Type Department Care Team (Late st Contact Info) Description 05/19/2024 11:00 EST Office Visit [facility] Family Medicine [address], [address] [address] Dane Rick MD [address] [place] [phone] documented as of this encounter Visit Diagnoses Not on filedocumented in this encounter Care Teams Tax Specialist Relationship Specialty Start Date End Date Dane Rick MD [address] [place] [phone] PCP - General Family Medicine - Primary Care 08/09/22 Vicky Chamberlain ENGLISH LECTURER Rope Tier 06/12/22 01/22/24 documented as of this encounter
--- OUTSIDE RECORDS SUMMARY | 2024-02-08 01:09 | XMS_ITS | Encounter Summary ---
Author Organization [facility] Address [address] [place] [address] Care Team Providers Care Electronic Sensing Equipment Assembler Name Role Phone Vicky Chamberlain Unavailable [phone] Dane Rick MD Primary Care Provider [phone] Leticia Lieberman Unavailable Mendoza Guzmán MD Unavailable [phone] Reason for Visit * Reason Onset Date Comments Advice Only 01/24/2023 Encounter Details Date Type Department Care Team (Late st Contact Info) Description 01/24/2023 Telephone [facility] - [facility] General Surgery [address] [place] [address] Riana Costa, audio director Only Social History Tobacco Use Types Packs/Day [...] slept in a fci (including now)? No 05/02/2022 Interpersonal Safety Answer [...] Office Visit [facility] Family [facility] [address], [place] [address] [place] [address] Dane iRck MD [address] [place] [address] 2 [place] [phone] documented as of this encounter Visit Diagnoses Not on filedocumented in this encounter Additional Health Concerns Infection Onset Date Last Indicated Resolved Time R/O COVID-19 08/13/2023 08/13/2023 08/13/2023 20:0 7 EDT documented as of this encounter Care Teams Electronic Sensing Equipment Assembler Relationship Specialty Start Date End Date Dane Rick MD [address] [place] [phone] PCP - General Family Medicine - Primary Care 08/09/22 Vicky Chamberlain [facility] Durability Engineer 06/12/22 01/22/24 Leticia Lieberman [address] [place] [phone] General Surgery 04/03/23 Mendoza Guzmán MD [address] [place] [address] [address] [place] [address] Otolaryngology 04/03/23 documented as of this encounter
--- OUTSIDE RECORDS SUMMARY | 2024-02-08 01:09 | XMS_ITS | Encounter Summary ---
Author Organization [facility] Address [address] [place] [address] Care Team Providers Care Mold Release Worker Name Role Phone Vicky ChamberlainSW Unavailable [phone] Dane Rick MD Primary Care Provider [phone] Reason for Referral * Radiology Services (Routine/Next Available) - New Request Specialty Diagnoses / Procedures Referred By Franky ferreira Referred To Contact Diagnoses Thyroid nodule Procedures US THYROID/NECK Mendoza Guzmán MD [address] [address] [facility] Referral ID Status Reason Start Date Expiration Date V isits Requested Visits Authorized [id number] New Request 09/15/2021 1 1 Reason for Visit * Radiology Services (Routine/Next Available) - New Request Specialty Diagnoses / Procedures Referred By Franky ferreira Referred To Contact Diagnoses Thyroid nodule Procedures US THYROID/NECK Mendoza Guzmán MD [address] [facility] [address] [address] [facility] Referral ID Status Reason Start Date Expiration Date V isits Requested Visits Authorized [id number] New Request 09/15/2021 1 1 Encounter Details Date Type Department Care Team (Latest Contact Info) Description 01/23/2023 10:16 EDT - 01/23/2023 23:59 EDT Hospital Encounter [facility] Ultrasound [address] [id number] Thyroid nodule Discharge Disposition: Home or Self Care Social [...] in a senior living (including now)? No 05/02/2022 Interpersonal Safety Answer Date Record ed How often does anyone, torreysumit brenda family, hit, punch or physically hurt [...] doxycycline (VIBRA-TABS) 100 mg tablet 12/25/2022 04/03/2023 furosemide (LASIX) 20 mg tablet TAKE 2 TABLETS BY MOUTH ONCE DAILY IN THE MORNING AND 1 IN THE AFTERNOON 270 Tablet 09/19/2022 04/03/2023 hydrOXYzine (ATARAX) 25 mg tablet Take 1 Tablet by mouth 3 times daily as needed for Itching. 60 Tablet 09/19/2022 01/29/2024 losartan (COZAAR) 100 mg tablet Take 1 Tablet by mouth daily. 90 Tablet 1 12/26/2022 08/14/2023 documented as of this encounter Discharge Disposition Disposition Code Departure Means Destination Home or Self Care documented in this encounter Plan of Treatment Upcoming Encounters Date Type Department Care Team (Late st Contact Info) Description 05/19/2024 11:00 EST Office Visit [facility] Family Medicine [address] [place] [address] Dane Rick MD [address] [place] [address] documented as of this encounter Procedures Procedure Name Priority Date/Time Associated Diagnosis Comments US THYROID/NECK Routine 01/23/2023 11:47 EDT Thyroid nodule documented in this encounter Results * US THYROID/NECK (01/23/2023 11:47 EDT) Anatomical Region Laterality Modality Neck Ultrasound 01/23/2023 11:4 5 EDT Impressions 01/24/2023 11:15 EDT Thyroid nodules, solid, as described above. COMMENTS: 1. ?? Recommendations for TI-RADS scores are listed below for reference. (See Reference: Matty) 2. ?? TI-RADS 1, Benign. 0 points: No fine needle aspiration (FNA) or follow-up ultrasound recommended. 3. ?? TI-RADS 2, Not suspicious. 2 points: No FNA or follow-up ultrasound recommended. 4. ?? TI-RADS 3, Mildly suspicious. 3 points: FNA if equal or greater than 2.5 cm. Follow-up ultrasound if 1.5 to 2.4 cm in 1, 3, and 5 years. 5. ?? TI-RADS 4, Moderately Suspicious. 4-6 points: FNA if equal or greater than 1.5 cm. Follow-up ultrasound if 1 to 1.4 cm in 1, 2, 3, and 5 years. 6. ?? TI-RADS 5, Highly Suspicious. 7 points or greater: FNA if equal or greater than 1 cm. Follow-up ultrasound if 0.5 to 0.9 cm every year for 5 years. REFERENCES: Matty FN, Lindsay WD, Stephen EG et al. ACR Thyroid Imaging, Reporting and Data System (TI-RADS): White Paper of the ACR TI-RADS Committee. J Am Cole Radiol. 2017; 14: 587-595. THIS DOCUMENT HAS BEEN ELECTRONICALLY SIGNED BY SANDRO WHITTINGTON MD FOR ANY QUESTIONS OR CONCERNS REGARDING THIS REPORT PLEASE CALL [facility] AT [phone] Narrative 01/24/2023 11:15 EDT PROCEDURE INFORMATION: Exam: US Soft Tissue Head and Neck, TI-RADS Exam date and time: 01/23/2023 11:45 AM Age: 82 years old Clinical indication: Nontoxic single thyroid nodule; Condition or disease; Thyroid disorder; Goiter, non-toxic; Multinodular; Additional info: Follow up thyroid nodule(s) TECHNIQUE: Imaging protocol: Real-time ultrasound scan of the neck with image documentation. Exam focused on the thyroid. COMPARISON: US THYROID/NECK 09/13/2021 12:40 PM FINDINGS: Right thyroid lobe: Right lobe: 3 x [...] 2.7 cm. TIRADS 4. Isthmus: Not thickened. Procedure Note Sandro Whittington MD - 01/24/2023 PROCEDURE INFORMATION: Exam: US Soft Tissue Head and Neck, TI-RADS Exam date and time: 01/23/2023 11:45 AM Age: 82 years old Clinical indication: Nontoxic single thyroid nodule; Condition or disease; Thyroid disorder; Goiter, non-toxic; Multinodular; Additional info: Follow up thyroid nodule(s) TECHNIQUE: Imaging protocol: Real-time ultrasound scan of the neck with image documentation. Exam focused on the thyroid. COMPARISON: US THYROID/NECK 09/13/2021 12:40 PM FINDINGS: Right thyroid lobe: Right lobe: 3 x [...] 2.7 cm. TIRADS 4. Isthmus: Not thickened. IMPRESSION Thyroid nodules, solid, as described above. COMMENTS: 1. Recommendations for TI-RADS scores are listed below for reference. (See Reference: Matty) 2. TI-RADS 1, Benign. 0 points: No fine needle aspiration (FNA) or follow-up ultrasound recommended. 3. TI-RADS 2, Not suspicious. 2 points: No FNA or follow-up ultrasound recommended. 4. TI-RADS 3, Mildly suspicious. 3 points: FNA if equal or greater than 2.5 cm. Follow-up ultrasound if 1.5 to 2.4 cm in 1, 3, and 5 years. 5. TI-RADS 4, Moderately Suspicious. 4-6 points: FNA if equal or greater than 1.5 cm. Follow-up ultrasound if 1 to 1.4 cm in 1, 2, 3, and 5 years. 6. TI-RADS 5, Highly Suspicious. 7 points or greater: FNA if equal or greater than 1 cm. Follow-up ultrasound if 0.5 to 0.9 cm every year for 5 years. REFERENCES: Nievessraymond FN, Lindsay WD, Stephen EG et al. ACR Thyroid Imaging, Reporting and Data System (TI-RADS): White Paper of the ACR TI-RADS Committee. J Am Cole Radiol. 2017; 14: 587-595. THIS DOCUMENT HAS BEEN ELECTRONICALLY SIGNED BY SANDRO WHITTINGTON MD FOR ANY QUESTIONS OR CONCERNS REGARDING THIS REPORT PLEASE CALL [facility] [phone] Mendoza Guzmán MD IM US ORDERABLES documented in this encounter Visit Diagnoses Diagnosis Thyroid nodule Nontoxic uninodular goiter documented in this encounter Care Teams Mold Release Worker Relationship Specialty Start Date End Date Dane Rick MD [address] [place] [phone] PCP - General Family Medicine - Primary Care 08/09/22 Vicky Chamberlain LICSW Trade Union Official 06/12/22 01/22/24 documented as of this encounter
--- OUTSIDE RECORDS SUMMARY | 2024-02-08 01:09 | XMS_ITS | Encounter Summary ---
Author Organization [facility] Address [address] [place] [address] Care Team Providers Care Director Of Corporate Sales Name Role Phone Vicky Chamberlain Unavailable [phone] Dane Rick MD Primary Care Provider [phone] Leticia Lieberman Unavailable Mendoza Guzmán MD Unavailable [phone] Reason for Visit * Reason Onset Date Comments Appointment Related 01/19/2023 ED follow up Patient Information Update 01/19/2023 Encounter Details Date Type Department Care Team ([facility] st Contact Info) Description 01/19/2023 Telephone [facility] Family Medicine [address], [facility] [address] [place] [address] Dane Rick MD [address] [place] [address] [address] [place] [address] Appointment Related (ED follow up); Patient Information Update Social History Tobacco Use Types Packs/Day [...] slept in a penitentiary (including now)? No 05/02/2022 Interpersonal Safety Answer [...] Encounter - Diamond Martin RN - 01/25/2023 0855 EDT FYI * Telephone Encounter - Marta Oh - 01/25/2023 0840 EDT Patient calling to report she is postponing her biopsy for 2 weeks. She reports she has many thingsoccurring, all at the same time and she feels overwhelmed. I gave her General Surgery's contact number to reschedule with them directly. I thought they could go over more specific details if she has any questions. Sending as FYI to provider * Telephone Encounter - Milton Mcnally RN - 01/23/2023 1429 EDT Called pt LDVM * Telephone Encounter - Marta Oh - 01/23/2023 1247 EDT [facility] has open OV we can book TCM 01/25 @ 1015. Please advise if [facility] wants her scheduled here? * Telephone Encounter - Cathie Coombs - 01/19/2023 1255 EDT Received referral for ED follow up: weakness, lethargy, neck and shoulder pain, weight loss, difficulty concentrating documented in this encounter Plan of Treatment Upcoming Encounters Date Type Department Care Team (Late st Contact Info) Description 05/19/2024 11:00 EST Office Visit [facility] [address] [place] [address] Dane Rick MD [address] [place] [address] [address] [place] [phone] documented as of this encounter Visit Diagnoses Not on filedocumented in this encounter Additional Health Concerns Infection Onset Date Last Indicated Resolved Time R/O COVID-19 08/13/2023 08/13/2023 08/13/2023 20:0 7 EDT documented as of this encounter Care Teams Director Of Corporate Sales Relationship Specialty Start Date End Date Dane Rick MD [address] [place] [phone] PCP - General Family Medicine - Primary Care 08/09/22 Vicky Chamberlain [facility] Insurance Operations Rep 06/12/22 01/22/24 Leticia Lieberman [address] [place] [phone] General Surgery 04/03/23 Mendoza Guzmán MD [address] [place] [address] [address] [place] [address] Otolaryngology 04/03/23 documented as of this encounter
--- OUTSIDE RECORDS SUMMARY | 2024-02-08 01:09 | XMS_ITS | Encounter Summary ---
Author Organization [facility] Address [address] [place] [address] Care Team Providers Care Health Therapist Name Role Phone Vicky Chamberlain GRIEF COUNSELOR Unavailable [phone] Dane Rick MD Primary Care Provider [phone] Reason for Referral * Radiology Services (Routine/Next Available) - Authorization Not Required Specialty Diagnoses / Procedures Referred By Contac t Referred To Contact Diagnoses Mass of upper outer quadrant of right breast Lymphadenopathy, axillary Breast pain, right Procedures MA BREAST DIAGNOSTIC LULA BILATERAL Tamy Howe DO [address] [facility] 2 [place] [address] [facility] Referral ID Status Reason Start Date Expiration Date Visits Requested Visits Authorized [id number] Authorization Not Required 01/03/2023 1 1 Reason for Visit * Radiology Services (Routine/Next Available) - Authorization Not Required Specialty Diagnoses / Procedures Referred By Franky ferreira Referred To Contact Diagnoses Mass of upper outer quadrant of right breast Lymphadenopathy, axillary Breast pain, right Procedures MA BREAST DIAGNOSTIC LULA BILATERAL Tamy Howe DO [address] [facility] [address] [place] [address] [facility] Referral ID Status Reason Start Date Expiration Date Visits Requested Visits Authorized [id number] Authorization Not Required 01/03/2023 1 1 Encounter Details Date Type Department Care Team (Latest Contact Info) Description 01/23/2023 10:16 EDT - 01/23/2023 23:59 EDT Hospital Encounter [facility] Mammography [address] [place] [address] Mass of upper outer quadrant of right breast; Lymphadenopathy, axillary; Breast pain, right Discharge Disposition: Home or Self Care Social [...] place to sleep or slept in a prison (including now)? No 05/02/2022 Interpersonal Safety Answer [...] Info) Description 05/19/2024 11:00 EST Office Visit [facility] Family Medicine [facility] [address] [place] [address] Dane Rick MD [address] [facility] [address] [place] [address] documented as of this encounter Procedures Procedure Name Priority Date/Time Associated Diagnosis Comments MA BREAST DIAGNOSTIC LULA BILATERAL Routine 01/23/2023 11:03 EDT Mass of upper outer quadrant of right breast Lymphadenopathy, axillary Breast pain, right documented in this encounter Results * (ABNORMAL) MA BREAST [...] by Halina. If biopsy is performed at [facility], the referring provider will need to send a referral to the office of [facility] General Surgery. [id number] Narrative 01/23/2023 15:35 EDT US BREAST LIMITED [...] by Halina. If biopsy is performed at [facility], the referring provider will need to send a referral to the office of [facility] General Surgery. [id number] Tamy Howe DO IMG MAMMOGRAPHY ORDERABLES documented in this encounter Visit Diagnoses Diagnosis Mass of upper outer quadrant of right breast Lymphadenopathy, axillary Enlargement of lymph nodes Breast pain, right Mastodynia documented in this encounter Care Teams Health Therapist Relationship Specialty Start Date End Date Dane Rick MD [address] [place] [phone] PCP - General Family Medicine - Primary Care 08/09/22 Vicky Chamberlain LICSW Accounting Practice Manager 06/12/22 01/22/24 documented as of this encounter
--- OUTSIDE RECORDS SUMMARY | 2024-02-08 01:09 | XMS_ITS | Encounter Summary ---
Author Organization [facility] Address [address] [place] [address] Care Team Providers Care Service Station Cashier Name Role Phone BulmaroVicky LATRICE Unavailable [phone] Dane Rick MD Primary Care Provider [phone] Encounter Details Date Type Department Care Team ([facility] st Contact Info) Description 01/18/2023 Patient Outreach [facility] Family Medicine - [facility] [address] [id number] Vicky Chamberlain LICSW 130 [facility] [address] [place] [address] Social History Tobacco Use Types [...] slept in a snf (including now)? No 05/02/2022 Interpersonal Safety Answer [...] this encounter Progress Notes * Vicky Chamberlain, PIT TANNER - 01/18/2023 8451 EDT [facility] Care Management Follow Up Scrap Sawyer followed up with Kenyatta by phone for care management. TOPIC OF CONVERSATION: ??? Reviewed assessment and plan from previous visit with patient. ??? Engaged patient in conversation related to positive behavior change, self- management, goal setting and action planning using motivational interviewing and active listening. - CM notes recent visit with Dr. Howe resulting in urgent breast imaging. - Scheduled for 01/23 - Call to Kenyatta who states that today she has been feeling very weak (unable to lift her purse with her right arm), tired, states having a headache, difficulty seeing- or focusing and neck stiffness bilaterally. - Kenyatta noted that she was driving back from the bank (she believes she fell for a [employer] scam,yesterday) and felt that she shouldn't be driving. - Kenyatta considered going to the ED, but didn't want to bother anyone. - With multiple symptoms this CM suggested that Kenyatta call her daughterAdriana and go to ED for evaluation - Discussed that Kenyatta typically has a high level of pain tolerance and stubbornness for handling of her medical symptoms. - CM will forward this message to PCP and nursing staffing coordinator. Prioritized Patient Identified Goals: 1. Kenyatta agrees to call daughterAdriana and request a ride to ED for evaluation of symptoms. Achievement towards goals: In progress 2. CM will reach out to Kenyatta tomorrow/Sunday to check in. Achievement towards goals: In progress Plan: CM will check in with Kenyatta tomorrow/Sunday re today's symptoms. Next Scrap SawyerGalvanizer: 01/25/2023 LATRICE ENCISO 01/18/2023 17:00 documented in this encounter Plan of Treatment Upcoming Encounters Date Type Department Care Team (Late st Contact Info) Description 05/19/2024 11:00 EST Office Visit [facility] Family Medicine - [address] [place] [address] Dane Rick MD [address] [place] [address] [address] [place] [address] documented as of this encounter Visit Diagnoses Not on filedocumented in this encounter Care Teams Service Station Cashier Relationship Specialty Start Date End Date Dane Rick MD [address] [place] [phone] PCP - General Family Medicine - Primary Care 08/09/22 Vicky Chamberlain LICSW Scrap Sawyer 06/12/22 01/22/24 documented as of this encounter
--- OUTSIDE RECORDS SUMMARY | 2024-02-08 01:09 | XMS_ITS | Encounter Summary ---
Author Organization [facility] Address [address] [place] [address] Care Team Providers Care Physicist Solid State Name Role Phone Vicky ChamberlainSW Unavailable [phone] Dane Rick MD Primary Care Provider [phone] Reason for Referral * Consult (Routine/Next Available) - Authorization Not Required Specialty Diagnoses / Procedures Referred By Franky ferreira Referred To Contact Hematology and Oncology Diagnoses Mass of upper outer quadrant of right breast Haseeb Craig MD [address] [phone] [facility] Adult Hem Onc [address] [place] [address] Referral ID Status Reason Start Date Expiration Date Visits Requested Visits Authorized [id number] Authorization Not Required Specialty Services Required 02/17/20 23 1 1 Question Answer Reason for Request: newly diagnosed right breast cancer, concern for axillary fabian involvement * Radiology Services (Routine/Next Available) - New Request Specialty Diagnoses / Procedures Referred By Franky ferreira Referred To Contact Procedures POC US GENERAL SURGERY BREAST Haseeb Craig MD [address] [address] Referral ID Status Reason Start Date Expiration Date V isits Requested Visits Authorized [id number] New Request 02/09/2023 1 1 Reason for Visit * Reason Comments Lump Found a lump with ma mmogram and ultrasound. Right breast. * Consult (Urgent) - Closed Specialty Diagnoses / Procedures Referred By Contac t Referred To Contact General Surgery Diagnoses Mass of right breast, unspecified quadrant Dane Rick MD [address] [place] [phone] [facility] General Surgery [address] [place] [address] Referral ID Status Reason Start Date Expiration Date V isits Requested Visits Authorized [id number] Closed Specialty Services Required 01/23/2023 1 1 Encounter Details Date Type Department Care Team (Late st Contact Info) Description 02/09/2023 11:30 EST Office Visit [facility] [address] [place] [address] Haseeb Craig MD 111 [facility] [address] [place] [address] Mass of upper outer quadrant of right breast (Primary Dx) Social History [...] slept in a longterm (including now)? No 05/02/2022 Interpersonal Safety Answer [...] Sign Reading Time Taken Comments Blood Pressure 155/78 02/09/2023 1110 EST Pulse 58 02/09/2023 1110 EST Temperature - - Respiratory Rate - - Oxygen Saturation - - Inhaled Oxygen Concentration - - Weight 64.9 kg (143 lb) 02/09/2023 1110 EST Height - - Body Mass Index [...] Progress Notes * Haseeb Craig MD - 02/09/2023 1130 EST Procedures Ultrasound guided right breast biopsy utilizing the Mammotome core needle biopsy device. Placement of a right breast biopsy marker. Surgeons * Haseeb Craig MD - Primary Procedure Summary Anesthesia: Local (Nurse-Monitored) Indications: Kenyatta Vizcaino is a 82-year-old woman with suspicious mass of the right breast forwhich biopsy is recommended. She signed a written informed consent. Procedure Details: The patient was marked and taken to the procedure room and placed on the procedure room table. A final procedural timeout was held confirming correct patient, laterality, allergies, all according to protocol. The right breast was imaged using ultrasound and the mass identified. The right breast wasprepped with Betadine and then anesthetized with 1% lidocaine. A small incision was made with an 11blade. The biopsy needle was inserted into the breast under ultrasound guidance. Then a series of core needle biopsies were taken using the Mammotome core needle biopsy device. The needle was withdrawn, leaving the sheath in place. A biopsy marker was inserted into the biopsy cavity. Final imaging showed that the biopsy marker remained in the biopsy cavity. The wound was cleaned with sterile normal saline. Pressure was held for hemostasis. A sterile dressing of Steri-Strips, gauze, Tegaderm wasapplied. The patient tolerated the procedure well. Findings: Uneventful right breast ultrasound guided core needle biopsy. Complications: None; patient tolerated the procedure well. Condition: stable Specimens: right breast biopsy Implants: Biopsy marker (HydroMark) Haseeb Craig MD documented in this encounter Plan of Treatment Upcoming Encounters Date Type Department Care Team (Late st Contact Info) Description 05/19/2024 11:00 EST Office Visit [address], [place] [address] [place] [address] Dane Rick MD [address] [place] [phone] Scheduled Referrals Name Type Priority Associated Diagnoses Order Schedule AMB CONS/FOLLOW UP ONCOLOGY Outpatient Referral Routine/Next Available Mass of upper outer quadrant of right breast Expected: 02/23/2023 (Approximate), Expires: 02/17/2024 documented as of this encounter Procedures Procedure Name Priority Date/Time Associated Diagnosis Comments SURGICAL PATHOLOGY Routine 02/09/2023 12 :26 EST Mass of upper outer quadrant of right breast documented in this encounter Results * SURGICAL PATHOLOGY (02/09/2023 12:26 EST) Ancillary Studies Addendum ER/VT RESULTS: Tissue submitted: Paraffin embedded tissue block labelled [id number] (A2) from [facility] Immunohistochemical assays for estrogen receptors (SP1, [place]) and progesterone receptors (16, Leica) have been performed on this specimen. Intranuclear receptor complexes were visualized on tissue sections using an HRP polymer immunohistochemical technique. This assay is intended for paraffin-embedded tissue fixed in 10% neutral buffered formalin for 6-72 hours. Results are reported as negative (<1% nuclear staining) or positive with the proportion of positive cells noted. Estrogen receptor expression in <5% of tumor cells may not have a strong interaction with estrogen receptor modulators such as Tamoxifen. Reference: ASCO-CAP Guideline Recommendations for IHC testing of ER and [place]. J Clin Oncol 2010;28:8805-6374. NOTE: One or more of the reagents [...] performance characteristics have been determined by [facility] and/or by the referring laboratory. [...] formalin fixation time appropriate: No (81.5 hours) HER2/PAOLA RESULTS: Tissue submitted: Paraffin embedded tissue block labelled [id number] (A2) [facility] Fixative: Formalin This immunohistochemical assay [...] performed under appropriate conditions according to the perfect binder operator's instructions with appropriate assay and tissue controls using an Anti-Her2 (4B5) Rabbit Monoclonal Antibody ([place]). Her2 Scoring Guidelines (invasive tumor component only) [...] J Clin Oncol 2018; epub (www.jco.org September 18, 2017) *FDA statement Assay results Her2 IHC Score: [...] of this testing were performed at the [facility] Department of Pathology and Laboratory Medicine, [address] [place] [address]. CLIA # [id number]. 02/16/2023 15:55 [facility] Addendum electronically signed by Robel Ferguson MD on 02/16/2023 at 1555 Note to Patient The following pathology results have been interpreted by your pathologist and may be available to you before your health provider has had the opportunity to review them. Please allow time for your provider to receive these results and explore management options, if applicable. 02/16/2023 15:55 [facility] Final Diagnosis A. BREAST, RIGHT, UPPER OUTER QUADRANT, 9 O'CLOCK, MASS, ULTRASOUND-GUIDED CORE BIOPSY: - Invasive ductal carcinoma, nuclear grade 2. See comment. 02/16/2023 15:55 [facility] Diagnosis Comment Prognostic studies for ER, VT, and HER2 are pending at the [facility], and the results will be issued in an addendum report to follow. Please note, the specimen fixation time was just outside of the recommended fixation time of up to 72 hours. Please interpret the prognostic markers with a degree of caution. Intradepartmental review was obtained to confirm the above diagnosis. 02/16/2023 15:55 [facility] Attestation By the signature below, the attending physician certifies that they have 1) personally conducted a gross and/or microscopic examination of the described specimen(s), and/or personally interpreted the results of laboratory testing of the described specimen(s), and 2) personally rendered or confirmed the above diagnosis. 02/16/2023 15:55 [facility] at 1604 Ancillary Studies Immunoperoxidase stains were performed on this case to further characterize the lesion. ANTIBODY(CLONE)(BLOCK ): RESULT GCDF-15 (BRST-2) (BP2040T, [place])(A2): Rare, focal staining Mammaglobin (31A5, Leica)(A2): Positive GATA3 (L50-823, [place])(A2): Positive nuclear staining Interpretation: The immunostain profile supports a breast primary carcinoma. The technical component of the above immunohistochemical stain(s) was performed at the [facility] Pathology Department, [address] [place] [address] (CLIA [id number]), and the professional interpretation component was performed at the [facility] Pathology Department, [address] [place] [address] (CLIA [id number]). NOTE: One or more of the reagents [...] reagents' performance characteristics have been determined by [facility] and/or by the referring laboratory. [...] to perform high complexity clinical laboratory testing. 02/16/2023 15:55 [facility] Clinical History Mass of upper outer quadrant of right breast, 9 oclock 02/16/2023 15:55 [facility] Gross Description A. Received in formalin and labeled with ? Kenyatta Vizcaino? and ? breast? are several of needle cores of yellow-pond [...] and 34 minutes Julia Benson 02/12/2023 13:11 02/16/2023 15:55 [facility] Performing Lab [facility] 02/16/2023 15:55 [facility] Scanned Images 02/16/2023 15:55 [facility] Tissue RIGHT BREAST STRUCTURE / Unknown Collection, Other / Unknown 02/09/2023 12:26 EST 02/09/2023 12:26 EST Haseeb Craig MD PATHOLOGY ORDERABLES [facility] [address] [place] [address] [facility] [address] [place] [address] * POC US GENERAL SURGERY BREAST (02/09/2023 11:56 EST) Narrative 02/09/2023 11:56 EST Refer to office visit note for this imaging report. Haseeb Craig MD IMG US POC ORDERABLE S documented in this encounter Visit Diagnoses Diagnosis Mass of upper outer quadrant of right breast- Primary documented in this encounter Administered Medications Inactive Administered Medications - up to 3 most recent administrations Medication Order MAR Action Action Date Dose Rate Site lidocaine 1 % injection 20 mL 20 mL, subcutaneous, NOW X1, 1 dose, On Sun02/09/23 at 1245, Routine Given 02/09/2023 12:23 EST 8 mL documented in this encounter Historical Medications * This list may reflect changes made after this encounter. Medication Sig Dispensed Refills Start Date End Date MAGNESIUM GLUCONATE ORAL Take 1 Tablet by mouth daily at 1200. 01/29/2024 ergocalciferol, vitamin D2, (VITAMIN D ORAL) Take 1 Tablet by mouth daily at 1200. 01/22/2024 added in this encounter Care Teams Physicist Solid State Relationship Specialty Start Date End Date Dane Rick MD [address] [place] [phone] PCP - General Family Medicine - Primary Care 08/09/22 Vicky Chamberlain, [facility] Revenue Enforcement Collection Agent 06/12/22 01/22/24 documented as of this encounter
--- OUTSIDE RECORDS SUMMARY | 2024-02-08 01:09 | XMS_ITS | Encounter Summary ---
Author Organization [facility] Address [address] [place] [address] Care Team Providers Care Public Works Technician Name Role Phone BulmaroVicky LATRICE Unavailable [phone] Dane Rick MD Primary Care Provider [phone] Encounter Details Date Type Department Care Team ([facility] st Contact Info) Description 02/19/2023 Patient Outreach [facility] Family Medicine - [facility] [address] [place] [phone] Vicky Chamberlain LICSW 130 [facility] [address] [place] [address] Social History Tobacco Use Types [...] slept in a long-term (including now)? No 05/02/2022 Interpersonal Safety Answer [...] this encounter Progress Notes * Vicky Chamberlain, CHAINSTITCH PANTS OUTSEAMER - 02/19/2023 1136 EST [facility] Care Coordination Barber spoke with Kenyatta on 02/19/23 in order to coordinate care. Kenyatta explains that she has paperwork from [facility] that she needs assistance completing; she believe's it is over due. - CM offers to reach out to [employer] to see if he might be able to assist her in completion of this paperwork. Kenyatta also explains that she spoke with Dr. Craig last week, and is beginning to feel overwhelmed with the unknown in the positive breast biopsy result. - CM explains that she was referred to Oncology and they would be able to assist her in going over options for treatment. - CM made outgoing call to Oncology to request appointment be scheduled sooner than later due to this patient's concerns and symptoms. - Oncology explained that they are booking out late March. - CM sending note to oncology neighborhood aide, Joie Garcia for reference. PLAN: CM will continue to follow up as needed to assist with coordination of care. Next BarberDirectory Operator: 03/12/2023 LATRICE ENCISO 02/19/2023 11:37 documented in this encounter Plan of Treatment Upcoming Encounters Date Type Department Care Team (Late st Contact Info) Description 05/19/2024 11:00 EST Office Visit [facility] Family Medicine [address], [facility] [address] [place] [address] Dane Rick MD [address] [place] [phone] documented as of this encounter Visit Diagnoses Not on filedocumented in this encounter Care Teams Public Works Technician Relationship Specialty Start Date End Date Dane Rick MD [address] [place] [phone] PCP - General Family Medicine - Primary Care 08/09/22 Vicky Chamberlain LICSW Barber 06/12/22 01/22/24 documented as of this encounter
--- OUTSIDE RECORDS SUMMARY | 2024-02-08 01:09 | XMS_ITS | Encounter Summary ---
Author Organization [facility] Address [address] [place] [address] Care Team Providers Care Search Specialist Name Role Phone BulmaroVicky LATRICE Unavailable [phone] Dane Rick MD Primary Care Provider [phone] Encounter Details Date Type Department Care Team ([facility] st Contact Info) Description 01/24/2023 Patient Outreach [facility] Family Medicine - [facility] [address] [place] [phone] Vicky Chamberlain LICSW 130 [facility] [address] [place] [address] Social History Tobacco Use Types [...] place to sleep or slept in a nursing home (including now)? No 05/02/2022 Interpersonal Safety [...] this encounter Progress Notes * Vicky Chamberlain, ASSOCIATE ATTORNEY - 01/24/2023 1638 EDT [facility] Concrete Pointer Care Coordination Concrete Pointer spoke with Kenyatta on 01/22/23 in order to coordinate care. Kenyatta requesting further information about the [employer] letter she received. - Kenyatta describes that she received a letter from [facility]/[address] [place] [address]. - Letter states that she will be losing her benefit Card - Kenyatta receives her benefit through direct deposit. - CM attempted to university counselor Kenyatta that the letter is likely in error, and does not apply to her current benefits. - CM counsels that Kenyatta could go to the [facility] in [place] to discuss the letter directly with a staff person, Or she could continue to attmempt to call [facility] via the long call wait line. Discussed Kenyatta's recent breast scans resulting in a category 5 malignancy in her breast. - Kenyatta has questions about options - CM counsels that Kenyatta will get more clarity when she has done a biopsy and the providers at Oncology can provide her with options. - Kenyatta does state that she does not want Chemo Therapy, and has concerns about surgery. - CM discussed that these could be discussed with her treatment team when she has more information about her diagnosis. - This CM would be willing to be of support for a variety of conversations and treatment options asneeded PLAN: CM will follow up with Kenyatta in one week. Next Concrete PointerSolderer Furnace: 01/31/2023 LATRICE ENCISO 01/24/2023 16:39 documented in this encounter Plan of Treatment Upcoming Encounters Date Type Department Care Team (Late st Contact Info) Description 05/19/2024 11:00 EST Office Visit [facility] Family Medicine [address], [facility] 2 [place] [address] Dane Rick MD [address] [place] [phone] documented as of this encounter Visit Diagnoses Not on filedocumented in this encounter Care Teams Search Specialist Relationship Specialty Start Date End Date Dane Rick MD [address] [place] [phone] PCP - General Family Medicine - Primary Care 08/09/22 Vicky Chamberlain LICSW Concrete Pointer 06/12/22 01/22/24 documented as of this encounter
--- OUTSIDE RECORDS SUMMARY | 2024-02-08 01:09 | XMS_ITS | Encounter Summary ---
Author Organization [facility] Address [address] [place] [address] Care Team Providers Care Psychiatric Aide Name Role Phone Vicky ChamberlainSW Unavailable [phone] Dane Rick MD Primary Care Provider [phone] Reason for Visit * Radiology Services (Routine/Next Available) - Authorization Not Required Specialty Diagnoses / Procedures Referred By Franky ferreira Referred To Contact Diagnoses Mass of upper outer quadrant of right breast Lymphadenopathy, axillary Breast pain, right Procedures US BREAST LIMITED RIGHT US BREAST LIMITED BILATERAL Tamy Howe, DO [address] [facility] [address] [place] [address] [facility] Referral ID Status Reason Start Date Expiration Date Visits Requested Visits Authorized [id number] Authorization Not Required 01/03/2023 1 1 Encounter Details Date Type Department Care Team (Latest Contact Info) Description 01/23/2023 10:16 EDT - 01/23/2023 23:59 EDT Hospital Encounter [facility] Ultrasound [address] [place], [place] [phone] Mass of upper outer quadrant of right [...] Info) Description 05/19/2024 11:00 EST Office Visit [facility] Family Medicine [address], [facility] 2 [place] [address] Dane Rick MD [address] [place] [address] [address] [place] [phone] documented as of this encounter Procedures Procedure Name Priority Date/Time Associated Diagnosis Comments US BREAST LIMITED RIGHT Routine 01/23/2023 11:20 EDT Mass of upper outer quadrant of right breast Lymphadenopathy, axillary Breast pain, right documented in this encounter Results * (ABNORMAL) US BREAST LIMITED RIGHT (01/23/2023 11:20 EDT) Anatomical Region Laterality Modality Breast Right Ultrasound 01/23/2023 15:3 5 EDT Addenda Addendum by Rylan Thapa MD on 01/24/2023 15:58 EDT Addendum: A preliminary report t and confirmation of Findings and Recommendations was given to TOBIAS at the office of Tamy Howe on 01/24/2023 at 2:25 PM by Halina. If biopsy is performed at [facility], the referring provider will need to send a referral to the office of [facility] General Surgery. [id number] Narrative 01/23/2023 15:35 EDT US BREAST LIMITED [...] by Halina. If biopsy is performed at [facility], the referring provider will need to send a referral to the office of [facility] General Surgery. [id number] Tamy Howe DO IMG US ORDERABLE S documented in this encounter Visit Diagnoses Diagnosis Mass of upper outer quadrant of right breast Lymphadenopathy, axillary Enlargement of lymph nodes Breast pain, right Mastodynia documented in this encounter Care Teams Psychiatric Aide Relationship Specialty Start Date End Date Dane Rick MD [address] [place] [phone] PCP - General Family Medicine - Primary Care 08/09/22 Vicky Chamberlain LICSW Title Coordinator 06/12/22 01/22/24 documented as of this encounter
--- OUTSIDE RECORDS SUMMARY | 2024-02-08 01:09 | XMS_ITS | Encounter Summary ---
Author Organization [facility] Address [address] [place] [address] Care Team Providers Care Business Coordinator Name Role Phone Vicky ChamberlainSW Unavailable [phone] Dane Rick MD Primary Care Provider Reason for Visit * Reason Onset Date Comments Diagnostic Imaging Report 01/29/2023 Encounter Details Date Type Department Care Team ([facility] Contact Info) Description 01/29/2023 Telephone [facility] General Surgery [address] [place] [address] Mendoza Guzmán MD [address] [facility] [address] [place] [address] Diagnostic Imaging Report Social History Tobacco Use [...] encounter Miscellaneous Notes * Telephone Encounter - Gisella Nettles - 01/29/2023 1108 EDT Office appt scheduled w/Dr guzmán Pt confirmed * Telephone Encounter - Julia Garcia - 01/29/2023 1053 EDT Patient's PCP office called patient has not received a call regarding results from Thyroid US done on 01/23. Patient would like a call regarding this. documented in this encounter Plan of Treatment Upcoming Encounters Date Type Department Care Team (Late st Contact Info) Description 05/19/2024 11:00 EST Office Visit [facility] Family Medicine [address], [address] [address] Dane Rick MD [address] [place] [phone] documented as of this encounter Visit Diagnoses Not on filedocumented in this encounter Care Teams Business Coordinator Relationship Specialty Start Date End Date Dane Rick MD [address] [place] [phone] PCP - General Family Medicine - Primary Care 08/09/22 Vicky Chamberlain LICSW Oiling Machine Operator 06/12/22 01/22/24 documented as of this encounter
--- OUTSIDE RECORDS SUMMARY | 2024-02-08 01:09 | XMS_ITS | Encounter Summary ---
Author Organization [facility] Address [address] [place] [address] Care Team Providers Care Licensed Certified Orthotist Name Role Phone Vicky Chamberlain Unavailable [phone] Dane Rick MD Primary Care Provider [phone] Reason for Visit * Reason Onset Date Comments Appointment Related 01/05/2023 Encounter Details Date Type Department Care Team ([facility] st Contact Info) Description 01/05/2023 Telephone [facility] Family Medicine [address], [address] [place] [address] Dane Rick MD [address] [facility] [address] [place] [address] Appointment Related Social History Tobacco Use Types [...] encounter Miscellaneous Notes * Telephone Encounter - Radha Carmen - 01/05/2023 1040 EDT Notified patient. * Telephone Encounter - Radha Carmen - 01/05/2023 1035 EDT Patient was added to cancellation list as they have no openings before. LVMTCB to notify patient. * Telephone Encounter - Joyce Lord LPN - 01/05/2023 0943 EDT TE to front office, can you reach out to radiology scheduling regarding STAT order? * Telephone Encounter - Tamy Howe DO - 01/05/2023 0936 EDT No - as stated in order - this is highly suspicious for malignancy and needs to be done STAT * Telephone Encounter - Joyce Lord LPN - 01/05/2023 0925 EDT TE to AW, does this need to be moved up or do you feel it's ok as is? * Telephone Encounter - Marta Oh - 01/05/2023 0919 EDT Carley ordered a Dx Mammo/US for pt. [facility] DI scheduled both exams for 01/23. Patient has concerns this is scheduled too far out. Is Carley comfortable with this time frame? Notify pt when confirmed. documented in this encounter Plan of Treatment Upcoming Encounters Date Type Department Care Team (Late st Contact Info) Description 05/19/2024 11:00 EST Office Visit [facility] Family Medicine [place] [address] Naty Garcia, [facility] [address] [place] [address] Dane Rick MD [address] [place] [address] [address] [place] [address] documented as of this encounter Visit Diagnoses Not on filedocumented in this encounter Care Teams Licensed Certified Orthotist Relationship Specialty Start Date End Date Dane Rick MD [address] [place] [phone] PCP - General Family Medicine - Primary Care 08/09/22 Vicky Chamberlain [facility] Thickener Operator 06/12/22 01/22/24 documented as of this encounter
--- OUTSIDE RECORDS SUMMARY | 2024-02-08 01:09 | XMS_ITS | Encounter Summary ---
Author Organization [facility] Address [address] [place] [address] Care Team Providers Care Gypsum Block Setter Name Role Phone Vicky Chamberlain Unavailable [phone] Dane Rick MD Primary Care Provider [phone] Reason for Visit * Reason Onset Date Comments Advice Only 01/24/2023 Encounter Details Date Type Department Care Team ([facility] Contact Info) Description 01/24/2023 Telephone [facility] General Surgery [address] [place] [address] Riana Costa, vascular ultrasound technologist Only Social History Tobacco Use Types Packs/Day [...] encounter Miscellaneous Notes * Telephone Encounter - Riana Costa RN - 01/24/2023 0907 EDT Natalie called with questions about a breast Bx. We chatted about the procedure. Sent 25 min with her. She said she would call back with any other questions. documented in this encounter Plan of Treatment Upcoming Encounters Date Type Department Care Team (Late st Contact Info) Description 05/19/2024 11:00 EST Office Visit [facility] Family Medicine [address], [address] [place] [address] Dane Rick MD [address] [place] [address] [address] [place] [address] documented as of this encounter Visit Diagnoses Not on filedocumented in this encounter Care Teams Gypsum Block Setter Relationship Specialty Start Date End Date Dane Rick MD [address] [place] [phone] PCP - General Family Medicine - Primary Care 08/09/22 Vicky Chamberlain LICSW [employer] Administrator 06/12/22 01/22/24 documented as of this encounter
--- OUTSIDE RECORDS SUMMARY | 2024-02-08 01:09 | XMS_ITS | Encounter Summary ---
Author Organization [facility] Address [address] [place] [address] Care Team Providers Care Press Cutter Name Role Phone Vicky ChamberlainSW Unavailable [phone] Dane Rick MD Primary Care Provider [phone] Encounter Details Date Type Department Care Team ([facility] st Contact Info) Description 02/14/2023 Documentation Visit [facility] Therapy - [facility] [address] [place] [address] Maribeth Stoll, PT [address] [place] [address] Social History Tobacco Use Types Packs/Day Years [...] slept in a alf (including now)? No 05/02/2022 Interpersonal Safety Answer [...] as of this encounter Progress Notes * Maribeth Stoll, PT - 02/14/2023 7932 EST [facility] [phone] Physical Therapy Discharge Not Seen Recently Therapy Diagnosis: left shoulder pain Referring Clinician: Dr. Rick Reporting Period: 11/03/22 to 02/14/23 Physical Therapy Program to Date: In summary, the program has included: 5 visits total with emphasis on safety, gait, general ROM Goal Review: Short-Term Goals Timeframe: 11/24/22 1. Independent with HEP for left shoulder strengthening. ?? Long-Term Goals Timeframe: deferred deferred Discharge Reason: missed last appointment and following up with other providers currently due to health concerns. Discharge patient at this time; future therapy will require a new physician's referral. documented in this encounter Plan of Treatment Upcoming Encounters Date Type Department Care Team (Late st Contact Info) Description 05/19/2024 11:00 EST Office Visit [facility] Family [address], [address] [address] Dane Rick MD [address] [place] [phone] documented as of this encounter Visit Diagnoses Not on filedocumented in this encounter Care Teams Press Cutter Relationship Specialty Start Date End Date Dane Rick MD [address] [place] [phone] PCP - General Family Medicine - Primary Care 08/09/22 Vicky Chamberlain RN FL[employer] Merchandise Supervisor 06/12/22 01/22/24 documented as of this encounter
--- OUTSIDE RECORDS SUMMARY | 2024-02-08 01:09 | XMS_ITS | Encounter Summary ---
Author Organization [facility] Address [address] [place] [address] Care Team Providers Care Pickling Machine Operator Name Role Phone Vicky Chamberlain Unavailable [phone] Dane Rick MD Primary Care Provider [phone] Reason for Visit * Reason Onset Date Comments Breast Problem 01/03/2023 Encounter Details Date Type Department Care Team ([facility] st Contact Info) Description 01/03/2023 Telephone [facility] [place] [address], [address] [place] [address] Dane Rick MD [address] [facility] [address] [place] [address] Breast Problem Social History Tobacco Use Types Packs/Day Years [...] Miscellaneous Notes * Telephone Encounter - Gill Dickerson RN - 01/03/2023 0858 EDT Spoke w/ pt. Reports she has had the burning sensation for an unknown period of time. Reports a fewdays ago she was feeling the area and it feels elongated with a lump. Scheduled for eval w/ AW today. * Telephone Encounter - Marta Oh - 01/03/2023 0815 EDT Patient reports she has a R breast problem. It feels like it's burning at times, elongated with a dense tissue spot. She said the duration of time is unknown. documented in this encounter Plan of Treatment Upcoming Encounters Date Type Department Care Team (Late st Contact Info) Description 05/19/2024 11:00 EST Office Visit [facility] Family [address] [place] [address], [address] [address] Dane Rick MD [address] [place] [phone] documented as of this encounter Visit Diagnoses Not on filedocumented in this encounter Care Teams Pickling Machine Operator Relationship Specialty Start Date End Date Dane Rick MD [address] [place] [phone] PCP - General Family Medicine - Primary Care 08/09/22 Vicky Chamberlain SENIOR PRINCIPAL Pattern Mechanic 06/12/22 01/22/24 documented as of this encounter
--- OUTSIDE RECORDS SUMMARY | 2024-02-08 01:09 | XMS_ITS | Encounter Summary ---
Author Organization [facility] Address [address] [place] [address] Care Team Providers Care Route Sales Specialist Name Role Phone Vicky ChamberlainSW Unavailable [phone] Dane Rick MD Primary Care Provider [phone] Reason for Referral * Follow Up (Urgent) - Closed Specialty Diagnoses / Procedures Referred By Franky ferreira Referred To Contact Diagnoses Malaise Neck pain Vlad Murphy MD [address] [place] [address] [facility] [address] [facility], [facility] [address] [place] [address] Referral ID Status Reason Start Date Expiration Date V isits Requested Visits Authorized [id number] Closed Continuity of Care 01/18/2023 1 1 Question Answer Reason for Request: weakness, lethargy, neck and shoulder pain, weight loss, difficulty concentratin Reason for Visit * Reason Comments Altered Mental Status Pt presents with h er daughter; states she is having pain all over, and can't concentrate. My psychiatrist told me to really try to feel things - is speaking at length and incoherently. Pt is very weak and is confused - since yesterday. She has been having left lateral neck pain for months. She denies fever/chills. Shoulder Pain Encounter Details Date Type Department Care Team ([facility] Contact Info) Description 01/18/2023 18:40 EDT - 01/18/2023 23:00 EDT Emergency [facility] Emergency Department [address] [place] [address] Vlad Murphy MD [address] [facility] [place] [address] Malaise (Primary Dx); Neck pain Discharge Disposition: Home or Self Care Social [...] Sign Reading Time Taken Comments Blood Pressure 154/65 01/18/20232119 EDT Pulse 59 01/18/20231836 EDT Temperature 37.1 ??C (98.8 ??F) 01/18/20231836 EDT Respiratory Rate 17 01/18/20232119 EDT Oxygen Saturation 97% 01/18/20232119 EDT Inhaled Oxygen Concentration - - Weight 68.5 kg (151 lb) 01/18/20231836 EDT Height - - Body Mass Index 30.5 12/26/2022 1039 EDT documented in this encounter [...] this encounter Discharge Instructions * Discharge Instructions* Vlad Murphy MD - 01/18/2023 22:40 EDT Rest until you feel better Consider using ibuprofen 400 mg every 8 hours for aches and pains Stay well-hydrated If you develop worsening pain, fevers or chills, difficulty breathing, fainting spells or confusionreturn immediately to the ED documented in this encounter Medications at Time [...] Means Destination Comment s Home or Self Assisted documented in this encounter ED Notes * Vlad Murphy MD - 01/18/2023 2300 EDT Emergency Department Visit Medical Decision Making Pleasant 82-year-old presents with several days of increasing malaise, fatigue, difficulty concentrating, falling to the left, shoulder jaw discomfort. There is a very broad differential here, nothing that obviously ties these things together but consideration was given to the possibility of stroke, cervical arterial dissection, atypical MN, metabolic derangement. IV was established, a liter of fluid was ordered, sent for head CT and angiogram which were negative without vascular dissection, stroke or bleed. There is no space-occupying lesion. Her electrolytes were unremarkable, TSH was normal, troponin was negative, CBC is normal without anemia, thrombocytopenia or leukocytosis. He was afebrile here without signs of infection. She was ambulatory to the bathroom without difficulty. She was discharged home in the company of her daughter, malaise and fatigue, neck pain of unclear cause Referral back to primary care for reevaluation if symptoms persist An EKG was obtained and independently interpreted. Laboratory data was reviewed. EKG: Sinus bradycardia, normal axis, normal intervals, no significant ST segment changes, interpreted independently and contemporaneously by ER physician. Medical Decision Making Broad differential was entertained including thyrotoxicosis, metabolic derangement, intracranial hemorrhage, stroke, cervical arterial dissection, atypical myocardial infarction, anemia, thrombocytopenia, infection, UTI, flank pain, and more Malaise: complicated acute illness or injury Neck pain: complicated acute illness or injury Amount and/or Complexity of Data Reviewed External Data Reviewed: notes. Details: Primary care notes Labs: ordered. Decision-making details documented in ED Course. Radiology: ordered. Decision-making details documented in ED Course. ECG/medicine tests: ordered and independent interpretation performed. Decision- making details documented in ED Course. Risk Prescription drug management. Final diagnoses: Malaise Neck pain Disposition: Discharged Chief complaint: Neck pain, difficulty concentrating, gait instability HPI Kenyatta Lopez is a 82 y.o. female with history of hypertension, prior stroke with minimal residual deficits, who presents to the ED for several days of difficulty concentrating, increasing fatigue and malaise, neck stiffness, bilateral shoulder discomfort which waxes and wanes without shortness of breath. This is superimposed on several months of unexplained weight loss. There is been no nausea, vomiting, palpitations, seizure or syncope, falls or trauma. She is having some greater difficulty walking and feels that she is falling to the left or stumbling to the left without a fall. Shehas some lower left leg discomfort, unclear duration for which her primary care is ordered an MRI. No dysuria, hematuria, diarrhea, black or bloody stools, focal weakness, vision change. No other findings on focused review of systems. History was provided by: Patient, daughter Records reviewed include: Prior primary care notes Patient's pertinent PMH, FH, SH were reviewed and edited as necessary. Nursing notes reviewed. A medical screening exam was performed. Physical Exam BP (!) 154/65 Pulse 59 Temp 37.1 ??C (98.8 ??F) (Oral) Resp 17 Wt 68.5 kg (151 lb) SpO2 97% BMI 30.50 kg/m?? Physical Exam Vitals and nursing note reviewed. Constitutional: General: She is not in acute distress. Appearance: She is well-developed. HENT: Head: Normocephalic and atraumatic. Eyes: General: No visual field deficit or scleral icterus. Extraocular Movements: Right eye: Normal extraocular motion and no nystagmus. Left eye: Normal extraocular motion and no nystagmus. Conjunctiva/sclera: Conjunctivae normal. Pupils: Pupils are equal, round, and reactive to light. Right eye: Pupil is round and reactive. Left eye: Pupil is round and reactive. Cardiovascular: Rate and Rhythm: Normal rate and regular rhythm. Heart sounds: Normal heart sounds. No murmur heard. No friction rub. No gallop. Pulmonary: Effort: Pulmonary effort is normal. No respiratory distress. Breath sounds: Normal breath sounds. No wheezing or rales. Abdominal: General: Bowel sounds are normal. There is no distension. Palpations: Abdomen is soft. Tenderness: There is no abdominal tenderness. Musculoskeletal: General: Normal range of motion. Cervical back: Normal range of motion and neck supple. Lymphadenopathy: Cervical: No cervical adenopathy. Skin: General: Skin is warm and dry. Coloration: Skin is not pale. Findings: No rash. Neurological: Mental Status: She is alert and oriented to person, place, and time. Cranial Nerves: No dysarthria or facial asymmetry. Sensory: Sensation is intact. Motor: Motor function is intact. No pronator drift. Gait: Gait is intact. Comments: No focal weakness [place] equally Psychiatric: Behavior: Behavior normal. Thought Content: Thought content normal. Judgment: Judgment normal. Procedures Procedures * Elias Ordaz RN - 01/18/2023 192 EDT 12 Lead EKG Performed by ELIAS ORDAZ RN and shown to No att. providers found. documented in this encounter Plan of Treatment Upcoming Encounters Date Type Department Care Team (Late st Contact Info) Description 05/19/2024 11:00 EST Office Visit [facility] Family Medicine [address], [facility] [address] [place], [place] [id number] Dane Rick MD [address] [place] [phone] Pending Results Name Type Priority Associated Diagnoses Date /Time EXTRA BLOOD DRAW (RAINBOW) Lab Routine 01/18/2023 19:18 EDT Scheduled Orders Name Type Priority Associated Diagnoses Orde r Schedule EXTRA BLOOD DRAW (RAINBOW) Lab Routine One Time STAT fo r 1 Occurrences starting 01/18/2023 until 01/18/2023 HOLD BLUE TOP Lab Routine Once for 1 Occurrences starting 01/18/2023 until 01/18/2023 Scheduled Referrals Name Type Priority Associated Diagnoses Orde r Schedule AMB CONS/FOLLOW UP PRIMARY CARE PHYSICIAN - [facility] Outpatient Referral Urgent Malaise Neck pain Expected: 01/20/2023 (Approximate), Expires: 01/19/2024 documented as of this encounter Procedures Procedure Name Priority Date/Time Associated Diagnosis Comments ECG REPORT - SCANNED 01/19/2023 8:55 EDT POCT URINE DIPSTICK, VISUAL READ STAT 01/18/2023 21:[address] ANGIO HEAD NECK STAT 01/18/2023 21 :01 EDT EKG 12-LEAD STAT 01/18/2023 19:20 EDT HOLD SST Routine 01/18/2023 19:18 EDT HOLD LAVENDER TOP Routine 01/18/2023 19: 18 EDT HOLD GREEN TOP Routine 01/18/2023 19:18 EDT TROPONIN I STAT Add-on 01/18/2023 19:18 EDT COMPLETE BLOOD COUNT AND DIFFERENTIAL STAT Add-on 01/18/2023 19:18 EDT TSH STAT Add-on 01/18/2023 19:18 EDT MAGNESIUM STAT Add-on 01/18/2023 19:18 EDT BASIC METABOLIC PANEL (BMP) STAT Add-on 01/18/2023 19:18 EDT documented in this encounter Results * ECG REPORT - SCANNED (01/19/2023 8:55 EDT) 01/19/2023 8:55 EDT Scan 2 Broke Handler PROCEDURE/MINOR PRINCESS GICAL ORDERABLES * POCT URINE DIPSTICK, VISUAL READ (01/18/2023 21:50 EDT) Color, UA Light Yellow Clarity, UA Clear Glucose, UA Negative . mg/dL Bilirubin, UA Negative Negative Ketones, UA Negative . mg/dL Spec Grav, UA 1.010 1.005 - 1.030 Blood, UA Negative Negative pH, UA 5.5 4.6 - 8.0 Protein, UA Negative . mg/dL Urobilinogen, UA 0.2 0.2 - 1.0 E.U./dL Nitrite, UA Negative . Leuk Esterase Negative Negative Comment Urine URINE SPECIMEN OBTAINED BY CLEAN CATCH PROCEDURE / Unknown 01/18/2023 21:50 EDT Vlad Murphy MD POINT OF CARE TEST O RDERABLES * CT ANGIO HEAD NECK (01/18/2023 21:01 EDT) Anatomical Region Laterality Modality Head and Neck Computed Tomogra phy 01/18/2023 20:3 9 EDT Impressions 01/18/2023 22:05 EDT 1. ?? No large vessel occlusion or significant stenosis. No aneurysm. 2. ?? No evidence of acute intracranial hemorrhage, extraxial fluid or midline shift. 3. ?? No evidence of acute large vessel infarction. 4. ?? Mild cerebral atrophy. PROCEDURE INFORMATION: Exam: CTA Neck With Contrast Exam date and time: 01/18/2023 8:39 PM Age: 82 years old Clinical indication: Other: Difficulty concentrating, fallign to left, left jaw/shoulder pain TECHNIQUE: Imaging protocol: Computed tomographic angiography of the neck with contrast. 3D rendering (Not supervised by [...] prior 12 months: This patient has received 2 known CTs and 0 known cardiac nuclear medicine studies in the 12 months prior to the current study. COMPARISON: CT ANGIO HEAD NECK 10/20/2022 6:40 PM FINDINGS: Right common carotid artery: No stenosis. No dissection or occlusion. Right internal carotid artery: Mild atherosclerotic calcification involving origin-proximal right ICA with less than 50% narrowing/stenosis. Right external carotid artery: No occlusion or stenosis of the origin. ?? Left common carotid artery: No stenosis. No dissection or occlusion. Left internal carotid artery: Mild atherosclerotic calcification involving origin-proximal left ICA with less than 50% narrowing/stenosis. Left external carotid artery: No occlusion or stenosis of the origin. ?? Right vertebral artery: No stenosis. No dissection or occlusion. Left vertebral artery: No stenosis. No dissection or occlusion. Thyroid: Thyroid lobulated and heterogenous density with large 3 cm multicystic nodule in left thyroid lobe. Soft tissues: Normal. No significant soft tissue swelling. Bones/joints: Multilevel cervical spondylosis and facet osteoarthrosis. Lungs: Variable density of the lung parenchyma - areas with hazy opacity and hyperlucent areas throughout both lungs. IMPRESSION: 1. ?? Patent bilateral carotid and vertebral vasculature. No dissection or occlusion. 2. ?? Mild less than 50% narrowing/stenosis of bilateral ICAs. 3. ?? Possible hazy areas edema/inflammation vs. hyperlucent areas air trapping in patient with emphysema. 4. ?? Multinodular thyroid with 3 cm nodule in left thyroid lobe. Further evaluation with non-emergent thyroid ultrasound is recommended. COMMENTS: Consistent with the [employer]'s Incidental Findings Committee white paper (J Am Cole Radiol 2015): In patients aged 35 years and older with an incidental thyroid nodule equal to or greater than 1.[address], MRI or extrathyroidal US, further evaluation with dedicated thyroid US is recommended for patients with normal life expectancy and without comorbidities. For smaller nodules without suspicious features, no further evaluation or follow up is recommended. REFERENCES: NASCET CRITERIA. The degree of stenosis in the cervical segment of the internal carotid artery is based on NASCET criteria. Normal is no stenosis. Mild is less than 50% stenosis. Moderate is 50-69% stenosis. Severe is 70% to 99% stenosis. Total occlusion is no detectable patent lumen. THIS DOCUMENT HAS BEEN ELECTRONICALLY SIGNED BY JUSTYN SCHAFFER MD FOR ANY QUESTIONS OR CONCERNS REGARDING THIS REPORT PLEASE CALL [facility] AT [phone] Narrative 01/18/2023 22:05 EDT PROCEDURE INFORMATION: Exam: CTA Head With Contrast, Arteriography Exam date and time: 01/18/2023 8:39 PM Age: 82 years old Clinical indication: Other: Difficulty concentrating, fallign to left, left jaw/shoulder pain TECHNIQUE: Imaging protocol: Computed tomographic angiography of the head with contrast. Exam focused on the arteries. 3D rendering (Not supervised by radiologist): MIP [...] prior 12 months: This patient has received 2 known CTs and 0 known cardiac nuclear medicine studies in the 12 months prior to the current study. COMPARISON: CT ANGIO HEAD NECK 10/20/2022 6:40 PM FINDINGS: ANTERIOR CIRCULATION: Right internal carotid artery: Mild right supraclinoid ICA calcification. Intracranial segment is patent with no significant stenosis. No aneurysm. Right middle cerebral artery: No occlusion or significant stenosis. No aneurysm. ?? Right anterior cerebral artery: No occlusion or significant stenosis. No aneurysm. ?? Left internal carotid artery: Mild left supraclinoid ICA calcification. Intracranial segment is patent with no significant stenosis. No aneurysm. Left middle cerebral artery: No occlusion or significant stenosis. No aneurysm. ?? Left anterior cerebral artery: No occlusion or significant stenosis. No aneurysm. ?? POSTERIOR CIRCULATION: Right vertebral artery: No occlusion or significant stenosis. No aneurysm. ?? Left vertebral artery: No occlusion or significant stenosis. No aneurysm. ?? Basilar artery: No occlusion or significant stenosis. No aneurysm. Right posterior cerebral artery: No occlusion or significant stenosis. No aneurysm. ?? Left posterior cerebral artery: No occlusion or significant stenosis. No aneurysm. ?? Brain: No evidence of acute intracranial hemorrhage, extraxial fluid or midline shift. Cerebellum atrophic; otherwise, posterior fossa structures within normal limits. Cerebral ventricles: Mild prominence of the cerebral sulci and ventriculomegaly. Bones/joints: Unremarkable. No acute fracture. Soft tissues: Unremarkable. Procedure Note Justyn Schaffer MD - 01/18/2023 PROCEDURE INFORMATION: Exam: CTA Head With Contrast, Arteriography Exam date and time: 01/18/2023 8:39 PM Age: 82 years old Clinical indication: Other: Difficulty concentrating, fallign to left, left jaw/shoulder pain TECHNIQUE: Imaging protocol: Computed tomographic angiography of the head with contrast. Exam focused on the arteries. 3D rendering (Not supervised by radiologist): MIP [...] prior 12 months: This patient has received 2 known CTs and 0 known cardiac nuclear medicine studies in the 12 months prior to the current study. COMPARISON: CT ANGIO HEAD NECK 10/20/2022 6:40 PM FINDINGS: ANTERIOR CIRCULATION: Right internal carotid artery: Mild right supraclinoid ICA calcification. Intracranial segment is patent with no significant stenosis. No aneurysm. Right middle cerebral artery: No occlusion or significant stenosis. No aneurysm. Right anterior cerebral artery: No occlusion or significant stenosis. No aneurysm. Left internal carotid artery: Mild left supraclinoid ICA calcification. Intracranial segment is patent with no significant stenosis. No aneurysm. Left middle cerebral artery: No occlusion or significant stenosis. No aneurysm. Left anterior cerebral artery: No occlusion or significant stenosis. No aneurysm. POSTERIOR CIRCULATION: Right vertebral artery: No occlusion or significant stenosis. No aneurysm. Left vertebral artery: No occlusion or significant stenosis. No aneurysm. Basilar artery: No occlusion or significant stenosis. No aneurysm. Right posterior cerebral artery: No occlusion or significant stenosis. No aneurysm. Left posterior cerebral artery: No occlusion or significant stenosis. No aneurysm. Brain: No evidence of acute intracranial hemorrhage, extraxial fluid or midline shift. Cerebellum atrophic; otherwise, posterior fossa structures within normal limits. Cerebral ventricles: Mild prominence of the cerebral sulci and ventriculomegaly. Bones/joints: Unremarkable. No acute fracture. Soft tissues: Unremarkable. IMPRESSION 1. No large vessel occlusion or significant stenosis. No aneurysm. 2. No evidence of acute intracranial hemorrhage, extraxial fluid or midline shift. 3. No evidence of acute large vessel infarction. 4. Mild cerebral atrophy. PROCEDURE INFORMATION: Exam: CTA Neck With Contrast Exam date and time: 01/18/2023 8:39 PM Age: 82 years old Clinical indication: Other: Difficulty concentrating, fallign to left, left jaw/shoulder pain TECHNIQUE: Imaging protocol: Computed tomographic angiography of the neck with contrast. 3D rendering (Not supervised by [...] prior 12 months: This patient has received 2 known CTs and 0 known cardiac nuclear medicine studies in the 12 months prior to the current study. COMPARISON: CT ANGIO HEAD NECK 10/20/2022 6:40 PM FINDINGS: Right common carotid artery: No stenosis. No dissection or occlusion. Right internal carotid artery: Mild atherosclerotic calcification involving origin-proximal right ICA with less than 50% narrowing/stenosis. Right external carotid artery: No occlusion or stenosis of the origin. Left common carotid artery: No stenosis. No dissection or occlusion. Left internal carotid artery: Mild atherosclerotic calcification involving origin-proximal left ICA with less than 50% narrowing/stenosis. Left external carotid artery: No occlusion or stenosis of the origin. Right vertebral artery: No stenosis. No dissection or occlusion. Left vertebral artery: No stenosis. No dissection or occlusion. Thyroid: Thyroid lobulated and heterogenous density with large 3 cm multicystic nodule in left thyroid lobe. Soft tissues: Normal. No significant soft tissue swelling. Bones/joints: Multilevel cervical spondylosis and facet osteoarthrosis. Lungs: Variable density of the lung parenchyma - areas with hazy opacity and hyperlucent areas throughout both lungs. IMPRESSION: 1. Patent bilateral carotid and vertebral vasculature. No dissection or occlusion. 2. Mild less than 50% narrowing/stenosis of bilateral ICAs. 3. Possible hazy areas edema/inflammation vs. hyperlucent areas air trapping in patient with emphysema. 4. Multinodular thyroid with 3 cm nodule in left thyroid lobe. Further evaluation with non-emergent thyroid ultrasound is recommended. COMMENTS: Consistent with the [employer]'s Incidental Findings Committee white paper (J Am Cole Radiol 2015): In patients aged 35 years and older with an incidental thyroid nodule equal to or greater than 1.[address], MRI or extrathyroidal US, further evaluation with dedicated thyroid US is recommended for patients with normal life expectancy and without comorbidities. For smaller nodules without suspicious features, no further evaluation or follow up is recommended. REFERENCES: NASCET CRITERIA. The degree of stenosis in the cervical segment of the internal carotid artery is based on NASCET criteria. Normal is no stenosis. Mild is less than 50% stenosis. Moderate is 50-69% stenosis. Severe is 70% to 99% stenosis. Total occlusion is no detectable patent lumen. THIS DOCUMENT HAS BEEN ELECTRONICALLY SIGNED BY JUSTYN SCHAFFER MD FOR ANY QUESTIONS OR CONCERNS REGARDING THIS REPORT PLEASE CALL [facility] [phone] Vlad Murphy MD IMG CT ORDERABLES * EKG 12-LEAD (01/18/2023 19:20 EDT) 01/18/2023 19:2 0 EDT [facility] - 01/19/2023 8:40 EDT ? CV ? Test Date: ?2023-01-18 Pat Name: ? KENYATTA LOPEZ ? Department: ? Room: ? B04 Gender: ? Female ? Surgery Center Administrator: ?? AB : ?1940 ? Requested By: REMIGIO Olmedo Order Number: [id number] ? Corinna MD: ?? LAVELLE BRYANT MD ? Measurements Intervals ?[place] ? Rate: ? 57 ? P: ?32 CA: ? 194 ?QRS: ?-23 QRSD: ? 78 ? T: ?45 QT: ? 434 ? QTc: ?422 ? Interpretive Statements Sinus bradycardia Compared to ECG 10/20/2022 16:12:40 No significant changes I reviewed the tracing and have either agreed or edited the findings in this report. Electronically Signed On 01-19-2023 08:40:56 EDT by LAVELLE BRYANT MD. Procedure Note Lavelle Bryant MD - 01/19/2023 [facility] Test Date: 2023-01-18 Pat Name: KENYATTA LOPEZ Department: Room: 4 Gender: Female Surgery Center Administrator: AB : 1940 Requested By: REMIGIO Olmedo Order Number: [id number] Reading MD: LAVELLE BRYANT MD Measurements Intervals [place] Rate: 57 P: 32 CA: 194 QRS: -23 QRSD: 78 T: 45 QT: 434 QTc: 422 Interpretive Statements Sinus bradycardia Compared to ECG 10/20/2022 16:12:40 No significant changes I reviewed the tracing and have either agreed or edited the findings inthis report. Electronically Signed On 01-19-2023 08:40:56 EDT by LAVELLE WU. Vlad Murphy MD CARDIAC ECG ORDERABL ES Performing Organization Address City/[facility]/ZIP Co de Phone Number [facility] * TSH (01/18/2023 19:18 EDT) TSH 1.73 0.47 - 4.68 mIU/L 01/18/2023 21:31 EDT [facility] Blood VENOUS BLOOD / Unknown Venipuncture / Unknown 01/18/2023 19:18 EDT 01/18/2023 19:18 EDT Narrative [facility] - 01/18/2023 21:31 EDT The results of this assay can be falsely lowered due to the consumption of Biotin. Vlad Murphy MD CHEMISTRY & BLOOD GA S ORDERABLES Performing Organization Address [facility]/ZIP Co de Phone Number [facility] [address] [place] [address] * MAGNESIUM (01/18/2023 19:18 EDT) Magnesium 2.0 1.7 - 2.8 mg/dL 01/18/2023 21:00 EDT [facility] Blood VENOUS BLOOD / Unknown Venipuncture / Unknown 01/18/2023 19:18 EDT 01/18/2023 19:18 EDT Vlad Murphy MD CHEMISTRY & BLOOD GA S ORDERABLES Performing Organization Address [facility]/ZIP Co de Phone Number [facility] [address] [place] [address] * TROPONIN I (01/18/2023 19:18 EDT) [facility] Troponin I (ng/mL) <0.034 <0.034 ng/mL 01/18/2023 21:13 EDT [facility] Blood VENOUS BLOOD / Unknown Venipuncture / Unknown 01/18/2023 19:18 EDT 01/18/2023 19:18 EDT Narrative [facility] - 01/18/2023 21:13 EDT The results of this assay can be falsely lowered due to the consumption of Biotin. Vlad Murphy MD CHEMISTRY & BLOOD GA S ORDERABLES Performing Organization Address [facility] Co de Phone Number [facility] [address] [place] [address] * (ABNORMAL) BASIC METABOLIC PANEL (BMP) (01/18/2023 19:18 EDT) [facility] Sodium 137 136 - 145 mmol/L 01/18/2023 21:00 EDT [facility] Potassium 3.7 3.5 - 5.0 mmol/L 01/18/2023 21:00 EDT [facility] Chloride 103 96 - 110 mmol/L 01/18/2023 21:00 EDT [facility] CO2 Total 29 22 - 32 mmol/L 01/18/2023 21:00 EDT [facility] Anion Gap 5 5 - 14 mmol/L 01/18/2023 21:00 EDT [facility] Glucose 117(H) 70 - 99 mg/dl 01/18/2023 21:00 EDT [facility] Calcium 11.3(H) 8.5 - 10.5 mg/dL 01/18/2023 21:00 EDT [facility] BUN 17 10 - 26 mg/dL 01/18/2023 21:00 [facility] Creatinine 0.64 0.52 - 1.04 mg/dL 01/18/2023 21:00 EDT [facility] eGFR 89 >60 mL/min/1.73 m2 01/18/2023 21:00 T [facility] Blood VENOUS BLOOD / Unknown Venipuncture / Unknown 01/18/2023 19:18 EDT 01/18/2023 19:18 EDT Vlad Murphy MD CHEMISTRY & BLOOD GA S ORDERABLES Performing Organization Address City/State/[facility] Co de Phone Number [facility] [address] [place] [address] * (ABNORMAL) COMPLETE BLOOD COUNT AND DIFFERENTIAL (01/18/2023 19:18 EDT) WBC 8.61 4.00 - 12.40 K/cmm 01/18/2023 20:44 [facility] RBC 4.23 3.86 - 5.04 M/cmm 01/18/2023 20:44 [facility] Hemoglobin 12.7 11.6 - 15.2 g/dL 01/18/2023 20:44 [facility] HCT 37.6 34.9 - 44.4 % 01/18/2023 20:44 [facility] MCV 89 81 - 98 fL 01/18/2023 20:44 [facility] MCH 30.0 26.7 - 33.3 pg 01/18/2023 20:44 [facility] MCHC 33.8 32.1 - 35.9 g/dL 01/18/2023 20:44 [facility] RDW-CV 13.0 <14.7 % 01/18/2023 20:44 [facility] RDW-SD 42.0 <50.4 fl 01/18/2023 20:44 [facility] PLT 313 141 - 377 K/cmm 01/18/2023 20:44 [facility] MPV 10.2 9.5 - 12.7 fL 01/18/2023 20:44 [facility] % Neutrophils 62.4 % 01/18/2023 20:44 [facility] % Lymphocytes 19.7 % 01/18/2023 20:44 [facility] % Monocytes 8.2 % 01/18/2023 20:44 [facility] % Eosinophils 8.5 % 01/18/2023 20:44 [facility] % Basophils 0.9 % 01/18/2023 20:44 [facility] % Immature Grans 0.3 % 01/19/20 20:44 [facility] Absolute Neutrophils 5.36 2.20 - 8.85 K/cmm 01/18/2023 20:44 [facility] Absolute Lymphocytes 1.70 1.09 - 3.30 K/cmm 01/18/2023 20:44 [facility] Absolute Monocytes 0.71 0.10 - 0.80 K/cmm 01/18/2023 20:44 [facility] Absolute Eosinophils 0.73(H) 0.03 - 0.61 K/cmm 01/18/2023 20:44 [facility] ABS Basophils 0.08 0.01 - 0.11 K/cmm 01/18/2023 20:44 [facility] Absolute Immature Grans 0.03 0.00 - 0.06 K/cmm 01/18/2023 20:44 [facility] Type of Differential: Auto 01/18/2023 20:44 [facility] Blood VENOUS BLOOD / Unknown Venipuncture / Unknown 01/18/2023 19:18 EDT 01/18/2023 19:18 EDT Vlad Murphy MD PACKAGES & DNA PROBE ORDERABLES [facility] [address] [place] [address] * HOLD SST (01/18/2023 19:18 EDT) Hold Hold 01/18/2023 20:31 EDT [facility] Blood VENOUS BLOOD / Unknown Venipuncture / Unknown 01/18/2023 19:18 EDT 01/18/2023 19:18 EDT Vlad Murphy MD LAB INFO SERVICE AND SUPPORT & PHONE RESULT Performing Organization Address [facility]/ZIP Co de Phone Number [facility] [address] [place] [address] * HOLD LAVENDER TOP (01/18/2023 19:18 EDT) Hold Hold 01/18/2023 20:31 EDT [facility] Blood VENOUS BLOOD / Unknown Venipuncture / Unknown 01/18/2023 19:18 EDT 01/18/2023 19:18 EDT Vlad Murphy MD LAB INFO SERVICE AND SUPPORT & PHONE RESULT Performing Organization Address [facility] Co de Phone Number [facility] [address] [place] [address] * HOLD GREEN TOP (01/18/2023 19:18 EDT) Hold Hold 01/18/2023 20:31 EDT [facility] Blood VENOUS BLOOD / Unknown Venipuncture / Unknown 01/18/2023 19:18 EDT 01/18/2023 19:18 EDT Vlad Murphy MD LAB INFO SERVICE AND SUPPORT & PHONE RESULT Performing Organization Address [facility] Co de Phone Number [facility] [address] [place] [address] documented in this encounter Visit Diagnoses Diagnosis Malaise- Primary Other malaise and fatigue Neck pain Cervicalgia documented in this encounter Administered Medications Inactive Administered Medications - up to 3 most recent administrations Medication Order MAR Action Action Date Dose Rate Site iohexoL (OMNIPAQUE 350) solution 100 mL 100 mL, intravenous, Once in imaging, 1 dose, Starting on Magdalena 01/18/23 at 2042, Until Magdalena 01/18/23 at 2101, Routine Given 01/18/2023 21:01 EDT 100 mL lactated ringers BOLUS 1,000 mL 1,000 mL, intravenous, NOW X1, 1 dose, On Magdalena 01/18/23 at 2100, STAT New Bag 01/18/2023 21:23 EDT 1,000 mL documented in this encounter Active and Recently Administered Medications Times are shown in EDT. Scheduled Medication Order 01/16/2023 01/17/2023 01/18/2023 iohexoL (OMNIPAQUE 350) solution 100 mL (COMPLETED) 100 mL, intravenous, Once in imaging, 1 dose, Starting on Magdalena 01/18/23 at 2042, Until [place]dalena 01/18/23 at 2100, Routine 2100 (Given - Provid er: Darcy Lerma) lactated ringers BOLUS 1,000 mL (COMPLETED) 1,000 mL, intravenous, NOW X1, 1 dose, On Magdalena 01/18/23 at 2100, STAT 2122 (New Bag - Prov ider: Héctor Nelson RN)2259 (Completed - Provider: Héctor Nelson RN) documented in this encounter Care Teams Route Sales Specialist Relationship Specialty Start Date End Date Dane Rick MD [address] [place] [phone] PCP - General Family Medicine - Primary Care 08/09/22 Vicky Chamberlain, [facility] [place] 06/12/22 01/22/24 documented as of this encounter
--- OUTSIDE RECORDS SUMMARY | 2024-02-08 01:09 | XMS_ITS | Encounter Summary ---
Author Organization [facility] Address [address] [place] [address] Care Team Providers Care Oracle Bpm Consultant Name Role Phone BulmaroVicky LATRICE Unavailable [phone] Dane Rick MD Primary Care Provider [phone] Encounter Details Date Type Department Care Team ([facility] st Contact Info) Description 02/05/2023 Patient Outreach [facility] Family Medicine - [facility] [address] [place] [id number] Vicky Chamberlain LICSW [address] [facility] [address] [place] [address] Social History Tobacco Use Types [...] this encounter Progress Notes * Vicky Chamberlain, FOREMAN/PROJECT MANAGER - 02/05/2023 1340 EST [facility] Head Of Precision Targeting Care Coordination Head Of Precision Targeting spoke with Kenyatta on 02/05/2023 in order to coordinate care. Daughter Adriana is also on the call. Kenyatta discussed ongoing concerns about her biopsy appointment on Sunday, wondering when results might be avaiable. Wishes to discuss next steps and clarity about options for possible cancer diagnosis. CM explains unclear when the biopsy results typically come back, this would be a question for her provider at the time of appointment on Sunday. CM explains that I will be available at the appointment on Sunday, as it is located in my office suite, I would gladly assist with the conversation around next steps should she need assistance. - Explained that diagnosis can be clarified with biopsy of breast lump, radiology scans can offer some clarity, but CM's understanding is that the biopsy is the clear indicator of cancerous cells, and next steps can be discussed after biopsy. PLAN: CM will be available to offer advocacy at 02/09 General Surgery appointment. LATRICE ENCISO 02/05/2023 13:40 documented in this encounter Plan of Treatment Upcoming Encounters Date Type Department Care Team (Late st Contact Info) Description 05/19/2024 11:00 EST Office Visit [facility] Family Medicine [address], [facility] [address] [place] [address] Dane Rick MD [address] [place] [phone] documented as of this encounter Visit Diagnoses Not on filedocumented in this encounter Care Teams Oracle Bpm Consultant Relationship Specialty Start Date End Date Dane Rick MD [address] [place] [phone] PCP - General Family Medicine - Primary Care 08/09/22 Vicky Chamberlain LICSW Head Of Precision Targeting 06/12/22 01/22/24 documented as of this encounter
--- OUTSIDE RECORDS SUMMARY | 2024-02-08 01:09 | XMS_ITS | Encounter Summary ---
Author Organization [facility] Address [address] [place] [address] Care Team Providers Care Meter Installer Name Role Phone Vicky Chamberlain Unavailable [phone] Dane Rikc MD Primary Care Provider [phone] Reason for Referral * Radiology Services (Routine/Next Available) - Authorization Not Required Specialty Diagnoses / Procedures Referred By [facility] Referred To Contact Radiology Diagnoses Left leg pain Procedures MR CALF W WO CONTRAST LEFT Dane Rick MD [address] [facility] [address] [place] [address] [facility] Referral ID Status Reason Start Date Expiration Date Visits Requested Visits Authorized [id number] Authorization Not Required 12/26/2022 1 1 Reason for Visit * Reason Comments Follow-up Encounter Details Date Type Department Care Team ([facility] Contact Info) Description 12/26/2022 10:30 EDT Office Visit [facility] Family Medicine [address] [place] [address] Dane Rick MD [address] [facility] [address] [place] [phone] Left leg pain (Primary Dx); Hemiplegia and hemiparesis following cerebral infarction affecting right dominant side (HCC-CMS) Social History Tobacco Use Types Packs/Day [...] Sign Reading Time Taken Comments Blood Pressure 144/74 12/26/2022 1039 EDT Pulse 56 12/26/2022 1039 EDT Temperature 36.4 ??C (97.6 ??F) 12/26/2022 1039 EDT Respiratory Rate 18 12/26/2022 1039 EDT Oxygen Saturation 99% 12/26/2022 1039 EDT Inhaled Oxygen Concentration - - Weight 66.7 kg (147 lb) 12/26/2022 1039 EDT Height 149.9 cm (4' 11) 12/26/2022 1039 EDT Body Mass Index 29.69 12/26/2022 1039 EDT documented in this encounter [...] mouth daily. 90 Tablet 1 12/26/2022 08/14/2023 losartan (COZAAR) 100 mg tablet Take 1 Tablet by mouth daily. 90 Tablet 1 12/26/2022 12/26/2022 documented in this encounter Progress Notes * Dane Rick MD - 12/26/2022 1030 EDT Patient Name: Kenyatta Vizcaino Age: 82 y.o. Date: 12/26/22 ASSESSMENT/PLAN: Problem List Items Addressed This Visit Hemiplegia and hemiparesis following cerebral infarction affecting right dominant side (HCC-CMS) (HCC) (Chronic) Discussed risks and benefits of aspirin given her stroke history. Patient affirms she would like tocontinue aspirin Left leg pain - Primary (Chronic) Chronic for years. Point tenderness on exam. Normal xray in 2021. Unclear history, poor historian, reports bone disease decades ago fixed with tibial surgery but no notable findings on 2021 xrays. Shared decision to get more advanced imaging. I will discuss with radiology regarding appropriate imaging. Relevant Orders MR CALF W WO CONTRAST LEFT A total of 35 minutes was spent in reviewing medical history, [...] is a 82 y.o. female here for leg pain She gives me a a history of chronic leg pain at her shins Was told she may have cancer or disease of her bone Had surgery to take out a part of her tibia 40 years ago Feels like this was blown off by her previous doc's Calcium: normal ionized calcium on lab testing Vit D Def: low Vit d on testing, started supplement Shoulder pain: saw ortho, given steroid shot, sent to PT Discussed risks benefits of aspirin, will continue to take Review of Systems ALLERGIES/INTOLERANCES Allergies Allergen Reactions ??? Amoxicillin-Pot Clavulanate Rash ??? Atorvastatin Muscle Aches ??? Flagyl [Metronidazole] ??? Metoprolol Other (See Comments) heart failure? Penicillins ??? Zithromax [Azithromycin] OBJECTIVE Vitals: 12/26/22 1039 BP: (!) 144/74 BP Cuff Location: Left arm BP Patient Position: Sitting BP Cuff Sizes: Adult, regular Pulse: 56 Resp: 18 Temp: 36.4 ??C (97.6 ??F) TempSrc: Oral SpO2: 99% Weight: 66.7 kg (147 lb) Height: (!) 149.9 cm (59) General appearance - alert, well appearing Respiratory- no increased work of breathing Psych: normal judgement and insight, mood and affect normal MSK: point tenderness along anterior tibia tender to palpation, no masses or defects, normal range of motion, stable joint without laxity, strength appropriate with normal muscle tone Dane Rick MD documented in this encounter Miscellaneous Notes * Assessment & Plan Note - Dane Rick MD - 12/26/2022 1331 EDTAssociated Problem(s): Hemiplegia and hemiparesis following cerebral infarction affecting right dominant side ([facility]) Discussed risks and benefits of aspirin given her stroke history. Patient affirms she would like tocontinue aspirin * Assessment & Plan Note - Dane Rick MD - 12/26/2022 1324 EDTAssociated Problem(s): Left leg pain Chronic for years. Point tenderness on exam. Normal xray in 2021. Unclear history, poor historian, reports bone disease decades ago fixed with tibial surgery but no notable findings on 2021 xrays. Shared decision to get more advanced imaging. I will discuss with radiology regarding appropriate imaging. documented in this encounter Plan of Treatment Upcoming Encounters Date Type Department Care Team (Late st Contact Info) Description 05/19/2024 11:[address] [facility] Family Medicine [facility] [address] [facility] [place] [address] Dane Rick MD [address] [facility] [address] [place] [phone] documented as of this encounter Results * MR CALF W WO CONTRAST LEFT (01/22/2023 10:27 EDT) Anatomical Region Laterality Modality Lower Extremities Left Magnetic Reson ance 01/22/2023 11:3 0 EDT Impressions 01/22/2023 11:30 EDT 1. Swelling and subcutaneous edema within both lower extremities, nonspecific. 2. No acute bone or joint abnormality. [id number] Narrative 01/22/2023 11:30 EDT MR CALF W WO CONTRAST LEFT ?? SIGNS AND SYMPTOMS/COMMENTS: chronic left anterior tibial point tenderness, history of bone disease s/p tibial surgery per patient, without significant findings on xray. COMPARISON: Left knee radiograph 11/02/2022 and left lower leg radiograph 09/19/2021 TECHNIQUE: MRI scan of the left lower leg was performed without and with intravenous contrast. Comparison views of the right lower leg with were included. 13 mL of gadoterate meglumine solution was administered intravenously. FINDINGS: There is swelling and nonspecific edema within the subcutaneous tissues of the right and left lower legs. The muscles and other deep space soft tissues of both lower legs are unremarkable. No mass or abnormal enhancement is identified. 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 The ankle joints are unremarkable. The right and left tibia and fibula are unremarkable. No fracture, periostitis or abnormal bone signal abnormality is identified. Procedure Note Kai Duff MD - 01/22/2023 MR CALF W WO CONTRAST LEFT SIGNS AND SYMPTOMS/COMMENTS: chronic left anterior tibial pointtenderness, history of bone disease s/p tibial surgery per patient,without significant findings on xray. COMPARISON: Left knee radiograph 11/02/2022 and left lower leg radiograph09/19/2021 TECHNIQUE: MRI scan of the left lower leg was performed without and withintravenous contrast. Comparison views of the right lower leg with wereincluded. 13 mL of gadoterate meglumine solution was administeredintravenously. FINDINGS: There is swelling and nonspecific edema within the subcutaneous tissues ofthe right and left lower legs. The muscles and other deep space softtissues of both lower legs are unremarkable. No mass or abnormalenhancement is identified. There are degenerative arthritic changes within the right and lefttibiofemoral joints (more severe on the left. The ankle joints areunremarkable. The right and left tibia and fibula are unremarkable. No fracture,periostitis or abnormal bone signal abnormality is identified. IMPRESSION 1. Swelling and subcutaneous edema within both lower extremities,nonspecific. 2. No acute bone or joint abnormality. [id number] Dane Rick MD [facility] MRI ORDERABLES documented in this encounter Visit Diagnoses Diagnosis Left leg pain- Primary Pain in limb Hemiplegia and hemiparesis following cerebral infarction affecting right dominant side ([facility]) Left leg pain Pain in limb documented in this encounter Discontinued Medications Medication Sig Discontinue Reason Start Date End Da te losartan (COZAAR) 100 mg tablet Take 1 Tablet by mouth daily. Reorder 09/19/2022 12/26/2022 losartan (COZAAR) 100 mg tablet Take 1 Tablet by mouth daily. 12/26/2022 12/26/2022 documented as of this encounter Historical Medications * This list may reflect changes made after this encounter. Medication Sig Dispensed Refills Start Date End Date doxycycline (VIBRA-TABS) 100 mg tablet 04/03/2023 added in this encounter Care Teams Meter Installer Relationship Specialty Start Date End Date Dane iRck MD [address] [place] [phone] PCP - General Family Medicine - Primary Care 08/09/22 Vicky Chamberlain GRANTS SPECIALIST Status Controller 06/12/22 01/22/24 documented as of this encounter
--- OUTSIDE RECORDS SUMMARY | 2024-02-08 01:09 | XMS_ITS | Encounter Summary ---
Author Organization [facility] Address [address] [place] [address] Care Team Providers Care Golf Sales Manager Name Role Phone Vicky ChamberlainSW Unavailable [phone] Dane Rick MD Primary Care Provider [phone] Reason for Referral * Radiology Services (Routine/Next Available) - Authorization Not Required Specialty Diagnoses / Procedures Referred By Contac t Referred To Contact Radiology Diagnoses Left leg pain Procedures MR CALF W WO CONTRAST LEFT Dane Rick MD [address] [place] [phone] [facility] Referral ID Status Reason Start Date Expiration Date Visits Requested Visits Authorized [id number] Authorization Not Required 12/26/2022 1 1 Reason for Visit * Radiology Services (Routine/Next Available) - Authorization Not Required Specialty Diagnoses / Procedures Referred By Contac t Referred To Contact Radiology Diagnoses Left leg pain Procedures MR CALF W WO CONTRAST LEFT Dane Rick MD [address] [place] [phone] [facility] Referral ID Status Reason Start Date Expiration Date Visits Requested Visits Authorized [id number] Authorization Not Required 12/26/2022 1 1 Encounter Details Date Type Department Care Team (Latest Contact Info) Description 01/22/2023 8:50 EDT - 01/22/2023 23:59 EDT Hospital Encounter [facility] MRI [address] [place] [address] Left leg pain Discharge Disposition: Home or Self Care [...] slept in a mcc (including now)? No 05/02/2022 Interpersonal Safety Answer [...] Office Visit [facility] Family Medicine [address] [place] [address] Dane Rick MD [address] [facility] [address] [place] [phone] documented as of this encounter Procedures Procedure Name Priority Date/Time Associated Diagnosis Comments MR CALF W WO CONTRAST LEFT Routine 01/22/2023 10:27 EDT Left leg pain CREATININE STAT 01/22/2023 9:03 EDT documented in this encounter Results * MR CALF W WO CONTRAST LEFT (01/22/2023 10:27 EDT) Anatomical Region Laterality Modality Lower Extremities Left Magnetic Reson ance 01/22/2023 11:3 0 EDT Impressions 01/22/2023 11:30 EDT 1. Swelling and subcutaneous edema within both lower extremities, nonspecific. 2. No acute bone or joint abnormality. [id number] Narrative 01/22/2023 11:30 EDT MR CALF W [...] 2. No acute bone or joint abnormality. [id number] Dane Rick MD IMG MRI ORDERABLES * CREATININE (01/22/2023 9:03 EDT) Creatinine 0.71 0.52 - 1.04 mg/dL 01/22/2023 9:22 EDT [facility] eGFR 85 >60 mL/min/1.73 m2 01/22/2023 9:22 EDT [facility] Blood VENOUS BLOOD / Unknown Venipuncture / Unknown 01/22/2023 9:03 EDT 01/22/2023 9:05 EDT Dane Rick MD CHEMISTRY & BLOOD GA S ORDERABLES [facility] [address] [place] [address] documented in this encounter Visit Diagnoses Diagnosis Left leg pain Pain in limb documented in this encounter Administered Medications Inactive Administered Medications - up to 3 most recent administrations Medication Order MAR Action Action Date Dose Rate Site gadoterate meglumine solution 1-30 mL 1-30 mL, intravenous, Once in imaging, 1 dose, Starting on Sun01/22/23 at 1027, Until Sun01/22/23 at 1028, Routine, Imaging Protocol Orders Given 01/22/2023 10:28 EDT 13 mL documented in this encounter Care Teams Golf Sales Manager Relationship Specialty Start Date End Date Dane Rick MD [address] [place] [phone] PCP - General Family Medicine - Primary Care 08/09/22 Vicky Chamberlain, [facility] Mechanical Shop Laborer 06/12/22 01/22/24 documented as of this encounter
--- OUTSIDE RECORDS SUMMARY | 2024-02-08 01:09 | XMS_ITS | Encounter Summary ---
Author Organization [facility] Address [address] [place] [address] Care Team Providers Care Internet Sales Representative Name Role Phone Vicky ChamberlainSW Unavailable [phone] Dane Rick MD Primary Care Provider [phone] Reason for Referral * Consult (Urgent) - Closed Specialty Diagnoses / Procedures [facility] Referred To Contact General Surgery Diagnoses Mass of right breast, unspecified quadrant Dane Rick MD [address] [place] [address] [address] [place] [address] [facility] General Surgery [address] [place] [address] Referral ID Status Reason Start Date Expiration Date V isits Requested Visits Authorized [id number] Closed Specialty Services Required 01/23/2023 1 1 Question Answer Reason for Request: Right breast biopsy, right breast mammogram and US is a category 4 Reason for Visit * Reason Onset Date Comments Critical Value 01/23/2023 Encounter Details Date Type Department Care Team ([facility] Contact Info) Description 01/23/2023 Telephone [facility] - [facility] Family Medicine - [place] [address] [facility], [facility] 2 [place] [address] Dane Rick MD [address] [place] [address] [address] [place] [address] Critical Value Social History Tobacco Use Types Packs/Day Years [...] Telephone Encounter - Dane Rick MD - 01/29/2023 1345 EDT Discussed recent results with patient. She now feels more comfortable moving forward with the biopsy. * Telephone Encounter - Diamond Martin RN - 01/29/2023 0906 EDT Spoke with patient. She is overwhelmed. She was shocked with the news from the radiologist. She hadthought she would have a f/u with you to discuss results. She is struggling with this news. She said when she got the news from the radiologist her brain just shut down. Is there any place you can squeeze her in to talk to her about her recent Cat 5 mammo. Nupur suggested maybe a phone call to her. She also had an MRI on her calf and hasn't heard those results either. On a side note she had a thyroid scan on 01/23 but has not been notified of results. Spoke with Julia at ENT and she will get info to Dr. Guzmán's nurse and they will call her tomorrowwith results as Dr Guzmán is in surgery today. Please advise * Telephone Encounter - Radha Carmen - 01/29/2023 0808 EDT Patient returned call. She would like to discuss US & CT results with Nurse. * Telephone Encounter - Diamond Martin RN - 01/25/2023 0857 EDT Pt had appt with General surgery scheduled. But canceled it. See TE of 1026. * Telephone Encounter - Gill Oliver DNP - 01/24/2023 1448 EDT Noted, I am not sure that referral needs to be updated but should have been placed as urgent - can we verify this? * Telephone Encounter - Nupur Benson RN - 01/24/2023 1427 EDT Halina called back with an update on the call report from yesterday. Patient name and verified and the following information was read back per protocol: Patient was seen for a screening L breast mammogram which was a category 1 negative. She also had a diagnostic R breast mammogram and ultrasound and that was a category 5. The recommendation is still the same, and the patient is aware. She wanted to clarify the category is a 5 not a 4. She called today to correct this information. TE to [facility] is covering today; 01/24/23 @1429. RG I am not sure how to update this information in the referral that was already put in to general surgery? * Telephone Encounter - Marta Oh - 01/24/2023 1350 EDT Nyla calling from , she needs to speak with EC directly to follow up on yesterdays report. Please have EC call her back at [phone]. * Telephone Encounter - Diamond Martin RN - 01/24/2023 1309 EDT LM for Halina at radiology. Told to call back and ask to speak with any nurse. * Telephone Encounter - Nisa Negron - 01/24/2023 1237 EDT Halina from radiology requesting to speak to nurse again about results from yesterday she would likesomeone to call her back at [phone] * Telephone Encounter - Milton Mcnally RN - 01/23/2023 1530 EDT Called pt LDVM * Telephone Encounter - Dane Rick MD - 01/23/2023 1340 EDT Referral to General Surgery for breast biopsy placed. Please call and let patient know I have placed the referral. * Telephone Encounter - Nupur Benson RN - 01/23/2023 1242 EDT Call report received from Halina at [facility] radiology as follows. Patient name and verified and results read back per protocol 01/23/23 @1245. Patient was in for a diagnostic R breast mammogram and US, she also had a screening L breast mammogram. The right breast mammogram and US is a category 4. The recommendation is a R breast biopsy. There is more information in the report for provider to review. The L breast screening mammogram is a category [address] Adam Thapa was the interpreting radiologist. He did discuss findings and recommendations with patient at the time of the exam. Routing results to documented in this encounter Plan of Treatment Upcoming Encounters Date Type Department Care Team (Late st Contact Info) Description 05/19/2024 11:00 EST Office Visit [facility] Family Medicine [address], [facility] 2 [place] [address] Dane Rick MD [address] [place] [phone] Scheduled Referrals Name Type Priority Associated Diagnoses Order Schedule AMB CONS/FOLLOW UP GENERAL SURGERY/COLOREC ERIC SURGERY Outpatient Referral Routine/Next Available Mass of right breast, unspecified quadrant Expected: 01/30/2023 (Approximate), Expires: 01/24/2024 documented as of this encounter Visit Diagnoses Diagnosis Mass of right breast, unspecified quadrant- Primary documented in this encounter Care Teams Internet Sales Representative Relationship Specialty Start Date End Date Dane Rick MD [address] [place] [phone] PCP - General Family Medicine - Primary Care 08/09/22 Vicky Chamberlain LICSW Plastic Dolls Mold Filler 06/12/22 01/22/24 documented as of this encounter
--- OUTSIDE RECORDS SUMMARY | 2024-02-08 01:09 | XMS_ITS | Encounter Summary ---
Author Organization [facility] Address [address] [place] [address] Care Team Providers Care Coloring Machine Operator Name Role Phone Vicky ChamberlainSW Unavailable [phone] Dane Rick MD Primary Care Provider Reason for Referral * Consult (Routine/Next Available) - Closed Specialty Diagnoses / Procedures [facility] Referred To Contact Ophthalmology Diagnoses Blurry vision Dane Rick MD [address] [facility] 2 [place] [address] [address] Referral ID Status Reason Start Date Expiration Date V isits Requested Visits Authorized [id number] Closed Specialty Services Required 12/29/2022 1 1 Question Answer Reason for Request: Vision double/Vision blurred Specify which eye: Both Onset/Duration (new problem)? new problem, blurry vision Reason for Visit * Reason Onset Date Comments Referral Request 12/29/2022 Encounter Details Date Type Department Care Team ([facility] Contact Info) Description 12/29/2022 Telephone [facility] - [facility] Family Medicine - [place] [address], [address] [place] [address] Dane Rick MD [address] [facility] [address] [place] [address] Referral Request Social History Tobacco [...] Telephone Encounter - Dane Rick MD - 12/29/2022 1228 EDT ophtho referral placed * Telephone Encounter - Radha Carmen - 12/29/2022 0936 EDT Patients requesting [facility] Ophthalmology referral due to blurred vision. documented in this encounter Plan of Treatment Upcoming Encounters Date Type Department Care Team (Late st Contact Info) Description 05/19/2024 11:00 EST Office Visit [facility] Family Medicine [address], [facility] 2 [place] [address] Dane Rick MD [address] [place] [phone] Scheduled Referrals Name Type Priority Associated Diagnoses Order Schedule AMB CONS/FOLLOW UP OPHTHALMOLOGY Outpatient Referral Routine/Next Available Blurry vision Expected: 01/05/2023 (Approximate), Expires: 12/30/2023 documented as of this encounter Visit Diagnoses Diagnosis Blurry vision- Primary Other specified visual disturbances documented in this encounter Care Teams Coloring Machine Operator Relationship Specialty Start Date End Date Dane Rick MD [address] [place] [phone] PCP - General Family Medicine - Primary Care 08/09/22 Vicky Chamberlain LICSW Diabetes Clinical Manager 06/12/22 01/22/24 documented as of this encounter
--- OUTSIDE RECORDS SUMMARY | 2024-02-08 01:09 | XMS_ITS | Encounter Summary ---
Author Organization [facility] Address [address] [place] [address] Care Team Providers Care Financial Dealers Name Role Phone Vicky ChamberlainSW Unavailable [phone] Dane Rick MD Primary Care Provider [phone] Reason for Visit * Radiology Services (Routine/Next Available) - New Request Specialty Diagnoses / Procedures Referred By Franky ferreira Referred To Contact Procedures [facility] GENERAL SURGERY BREAST Haseeb Craig MD [address] [facility] 5 [place] [address] Referral ID Status Reason Start Date Expiration Date V isits Requested Visits Authorized [id number] New Request 02/09/2023 1 1 Encounter Details Date Type Department Care Team ([facility] st Contact Info) Description 02/09/2023 12:00 EST Ancillary Procedure [facility] - [facility] General Surgery [address] [place] [address] Social History Tobacco Use Types [...] Description 05/19/2024 11:00 EST Office Visit [facility] Family [address] [place] [address] Dane Rick MD [address] [place] [address] [address] [place] [phone] documented as of this encounter Procedures Procedure Name Priority Date/Time Associated Diagnosis Comments POC US GENERAL SURGERY BREAST Routine 02/09/2023 11:56 EST documented in this encounter Results * POC US GENERAL SURGERY BREAST (02/09/2023 11:56 EST) Narrative 02/09/2023 11:56 EST Refer to office visit note for this imaging report. Haseeb Craig MD IMG US POC ORDERABLE S documented in this encounter Visit Diagnoses Not on filedocumented in this encounter Care Teams Financial Dealers Relationship Specialty Start Date End Date Dane Rick MD [address] [place] [address] [address] [place] [address] PCP - General Family Medicine - Primary Care 08/09/22 Vicky Chamberlain, [facility] Patternmaker Plastics 06/12/22 01/22/24 documented as of this encounter
--- OUTSIDE RECORDS SUMMARY | 2024-02-08 01:09 | XMS_ITS | Encounter Summary ---
Author Organization [facility] Address [address] [place] [address] Care Team Providers Care Supervisor Rough End Name Role Phone Vicky Chamberlain Unavailable [phone] Dane Rick MD Primary Care Provider [phone] Encounter Details Date Type Department Care Team ([facility] st Contact Info) Description 02/20/2023 Orders Only [facility] Medicine [address] [place], [place] [phone] Ernie [place] Social History Tobacco Use Types [...] Office Visit [facility] Family Medicine [address], [address] [place] [address] Dane Rick MD [address] [facility] [address] [place] [address] documented as of this encounter Visit Diagnoses Not on filedocumented in this encounter Care Teams Supervisor Rough End Relationship Specialty Start Date End Date Dane Rick MD [address] [place] [phone] PCP - General Family Medicine - Primary Care 08/09/22 Vicky Chamberlain [facility] Surface Miner 06/12/22 01/22/24 documented as of this encounter
--- OUTSIDE RECORDS SUMMARY | 2024-02-08 01:09 | XMS_ITS | Encounter Summary ---
Author Organization [facility] Address [address] [place] [address] Care Team Providers Care Netsuite Developer Name Role Phone Vicky Chamberlain Unavailable [phone] Dane Rick MD Primary Care Provider [phone] Encounter Details Date Type Department Care Team ([facility] st Contact Info) Description 02/20/2023 Orders Only [facility] - [facility] Nuclear Medicine [address] [place], [place] [phone] Ernie [place] Social History Tobacco Use Types [...] slept in a chcf (including now)? No 05/02/2022 Interpersonal Safety Answer [...] Info) Description 05/19/2024 11:00 EST Office Visit [facility] Family Medicine [address], [address] [place] [address] Dane Rick MD [address] [facility] [address] [place] [phone] documented as of this encounter Visit Diagnoses Not on filedocumented in this encounter Care Teams Netsuite Developer Relationship Specialty Start Date End Date Dane Rick MD [address] [place] [phone] PCP - General Family Medicine - Primary Care 08/09/22 Vicky Chamberlain [facility] Principal Embedded Software Engineer 06/12/22 01/22/24 documented as of this encounter
--- OUTSIDE RECORDS SUMMARY | 2024-02-08 01:10 | XMS_ITS | Encounter Summary ---
Author Organization [facility] Address [address] [place] [address] Care Team Providers Care Document Review Specialist Name Role Phone Vicky Chamberlain Unavailable [phone] Dane Rick MD Primary Care Provider [phone] Encounter Details Date Type Department Care Team (Latest Contact Info) Description 11/08/2022 Plan of Care Documentation [address] [address] Social History Tobacco Use Types Packs/Day Years [...] slept in a intermediate (including now)? No 05/02/2022 Interpersonal Safety Answer [...] 7:38 EST Sexual Orientation Not on file COVID-19 Exposure Response Date Recorded In the last 10 days, have yo u been in contact with someone who was confirmed or suspected to have Coronavirus/COVID-19? No / Unsure 10/20/2022 14:35 EDT documented as of this encounter Functional Status [...] Progress Notes * Maribeth Stoll, PT - 11/08/2022 1711 EDT Outpatient Rehab Plan of Care ASSESSMENT Therapy Diagnosis: Left shoulder pain, left neck pain, left knee pain, and at risk for falling. Assessment: Natalie is seen for her second visit today and she reports a fall since her last visit due to slipping on a slippery surface. I do not suspect a fracture or dislocation given her ability to raise her UEs, intermittent pain, and fair strength. She also reports her symptoms are improving. Herpresentation is most consistent with bilateral shoulder strains. Due to the fall, I felt evaluatingher balance was the priority and Natalie agreed. She demonstrates general left LE weakness and some sensation changes to left leg that may be effecting Natalie's balance. She reports these changes are not new and have been present for several years. She does demonstrate a fall risk per FGA score and she dem onstrates difficulty with turning to left, use of left leg as stabilizing leg. I recommend continuing to evaluate the left knee and left neck pain as able. Response to Visit: Appears to understand information presented. Goal Review: Short-Term Goals Timeframe: 11/24/22 1. Independent with HEP for left shoulder strengthening. 2. Complete FOTO for knee and neck pain. Long-Term Goals Timeframe: 01/03/23 1. Increase FGA score to 22/30. 2. Increase FOTO scores by MDC. Barriers to Learning: memory Potential Barriers to Progress: comorbidities Rehabilitation Potential: Motivation/Commitment to Therapy: Good. Rehabilitation Potential: Fair PLAN Medical Necessity: Therapy intervention is indicated in order to return to a premorbid level of function or significantly improve current level of function. Physical Therapy is recommended for: Treatment Frequency/ Duration: 1-2 x week for 8 weeks Therapy Treatment to include: 15156 - Therapeutic Exercise, 55720 - Neuromuscular Re-education, 20901 - Aquatic Therapy/Exercise and 93878 - Gait Training Recommended Consults: none currently. Development of Plan of Care: Patient participated in development of plan of care today. Plan for next visit: FOTO for knee and neck, consider toe up brace. ATTENDING PHYSICIAN: Medicare certification needed. Your signature indicates you approve the therapy goals and plan of care outlined on this document dated 11/08/2022. Thank you! Attending Physician Signature Date Maribeth Stoll, LIZET 11/08/2022 17:11 documented in this encounter Plan of Treatment Upcoming Encounters Date Type Department Care Team (Late st Contact Info) Description 05/19/2024 11:00 EST Office Visit [facility] Family Medicine [address], [facility] 2 [place] [address] Dane Rick MD [address] [place] [phone] documented as of this encounter Visit Diagnoses Not on filedocumented in this encounter Care Teams Document Review Specialist Relationship Specialty Start Date End Date Dane Rick MD [address] [place] [phone] PCP - General Family Medicine - Primary Care 08/09/22 Vicky Chamberlain, CONCRETE TRUCK DRIVER Manager Creative Services 06/12/22 01/22/24 documented as of this encounter
--- OUTSIDE RECORDS SUMMARY | 2024-02-08 01:10 | XMS_ITS | Encounter Summary ---
Author Organization [facility] Address [address] [place] [address] Care Team Providers Care Dredge Worker Name Role Phone BulmaroVicky LATRICE Unavailable [phone] Dane Rick MD Primary Care Provider [phone] Encounter Details Date Type Department Care Team ([facility] st Contact Info) Description 08/25/2022 Patient Outreach [facility] Family [facility] - [facility] [address] [place] [address] Vicky Chamberlain LICSW [address] [facility] [address] [place] [address] Social History Tobacco Use Types [...] you have serious difficulty h earing? No 03/21/2021 Are you blind or do you have [...] this encounter Progress Notes * Vicky Chamberlain, CLINICAL QUALITY ANALYST - 08/25/2022 1306 EDT [facility] Care Management Follow Up Cigar Patcher followed up with Kenyatta by phone for dental update and mental health. TOPIC OF CONVERSATION: ??? Reviewed assessment and plan from previous visit with patient. ??? Engaged patient in conversation related to positive behavior change, self- management, goal setting and action planning using motivational interviewing and active listening. - Kenyatta states, friend of hers is reaching out to somekind of psychiatrist, they are going to interview them - Friend was the director of a psychiatric facility in [place]. - Friend is concerned about her PTSD and handling of her 's state after visiting him in the home. - Kenyatta, continues to have intrusive thoughts about various conversations with the home and recalls seeing her 's makeup which was done horribly - I can't put any more on myself before my 's , on the . - States that she stopped the Buproprion cold, on Sunday. States that she has had 5 large bowl movements since stopping the Buproprion. - States that she's been feeling better, clearer, less dizzy, - CM explains that she should continue to be careful, as the half life, can take some time to get out of her system. - States that she fell, 3 weeks ago - Says that is was a slow fall. - But that Adriana was concerned and suggested that Kenyatta be seen. - States that she has been speaking with a Chiropractor, Dr. Loco - not in an appointment, apparently he's a neighbor. - Suggested that she should get an xray on her shoulder. - Going back up this afternoon, to Dr. Carlos's office to have her mouth looked at, states that she has some pain. - Unsure of when she'll be able to have the dentures done - QUENTIN has not returned calls or emails sent from this CM. Prioritized Patient Identified Goals: 1. Kenyatta will sign application for [facility] and give bank statements/ estimate for dental work ?? Achievement towards goals: Complete 2. chronic disease manager will send application for assistance ?? Achievement towards goals: Complete 3. Kenyatta will call her PCP office should she experience any adverse effects from going off the Buproprion. Plan: CM will follow-up in 7 days LATRICE ENCISO 08/25/2022 13:07 documented in this encounter Plan of Treatment Upcoming Encounters Date Type Department Care Team (Late st Contact Info) Description 05/19/2024 11:00 EST Office Visit [address], [facility] 2 [place] [address] Dane Rick MD [address] [place] [phone] documented as of this encounter Visit Diagnoses Not on filedocumented in this encounter Care Teams Dredge Worker Relationship Specialty Start Date End Date Dane Rick MD [address] [place] [phone] PCP - General Family Medicine - Primary Care 08/09/22 Vicky Chamberlain [facility] Cigar Patcher 06/12/22 01/22/24 documented as of this encounter
--- OUTSIDE RECORDS SUMMARY | 2024-02-08 01:10 | XMS_ITS | Encounter Summary ---
Author Organization [facility] Address [address] [place] [address] Care Team Providers Care Sample Weaver Name Role Phone Vicky ChamberlainSW Unavailable [phone] Dane Rick MD Primary Care Provider [phone] Reason for Referral * Radiology Services (Routine/Next Available) - Authorization Not Required Specialty Diagnoses / Procedures Referred By Contac t Referred To Contact Diagnoses Carotid aneurysm, right ([facility]) Procedures CT ANGIO NECK Janell Jj NP [address] [phone] [facility] Referral ID Status Reason Start Date Expiration Date Visits Requested Visits Authorized [id number] Authorization Not Required 08/21/2022 1 1 * Radiology Services (Routine/Next Available) - Authorization Not Required Specialty Diagnoses / Procedures Referred By Contac t Referred To Contact Diagnoses Carotid aneurysm, right ([facility]) Procedures CT ANGIO HEAD Janell Jj NP [address] [place] [phone] [facility] Referral ID Status Reason Start Date Expiration Date Visits Requested Visits Authorized [id number] Authorization Not Required 08/21/2022 1 1 Reason for Visit * Reason Comments Follow-up Encounter Details Date Type Department Care Team ([facility] st Contact Info) Description 08/17/2022 14:30 EDT Office Visit [facility] Adult Neurology - [address] [address] Janell Jj, BATTERY TESTER [facility] [address] [place] [address] Carotid aneurysm, right (HCC-CMS) (Primary Dx) Social History Tobacco Use [...] you? Never 05/02/2022 How often does anyone, inclu ding family, insult, scream, curse or threaten to hurt you? Never 05/02/2022 Sex and Gender Information Value Date Recorded Sex Assigned at Not on file Gender Identity Female 02/28/2019 7:38 EST Sexual Orientation Not on file documented as of this encounter Last Filed Vital Signs Vital Sign Reading Time Taken Comments Blood Pressure 132/78 08/17/2022 1423 EDT Pulse 63 08/17/2022 1423 EDT Temperature - - Respiratory Rate 18 08/17/2022 1423 EDT Oxygen Saturation 100% 08/17/2022 1423 EDT Inhaled Oxygen Concentration - - Weight [...] No 03/21/2021 documented as of this encounter Patient Instructions * Patient Instructions* Janell Jj NP - 08/17/2022 14:30 EDT Not currently taking statin due to muscle pain. Target LDL < 70 for secondary stroke prevention Continue daily aspirin 81 mg for secondary stroke prevention Target systolic blood pressure (top number) < 140 mmHg and Diastolic blood pressure (bottom number) < 80 mmHg Will repeat CTA head and neck for any changes in aneurysm Discussed Stroke risk factors and secondary stroke prevention Discussed signs and symptoms of stroke (BEFAST) Reviewed imaging and other test results during hospitalization and any testing done post discharge Provided my contact information with any additional questions regarding stroke; Janell Jj, PRINTED CIRCUIT LAYOUT TAPER [phone] Follow up in stroke clinic 1 year * Attachments The following attachments cannot be sent through Care Everywhere. * Stroke: Symptoms: General Info (Vietnamese) documented in this encounter Progress Notes * Janell Jj NP - 08/17/2022 1430 EDT Subjective: Kenyatta Vizcaino is a 81 y.o. 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 The etiology of that stroke is cryptogenic, but suspicious for cardio-embolic. PMHx HTN, ABDOULAYE, depression, anxiety. Outside reports reviewed: ER records, historical medical records, imaging reports: head/neck images, cardiac monitoring and lab reports. Past Medical History: Diagnosis Date ??? Abnormal stress test reversible anteroseptal defect, with equivocal ST changes ??? Breathlessness on exertion ??? Chest pressure on exertion ??? Diverticulosis ??? HLD (hyperlipidemia) ??? HLD (hyperlipidemia) ??? Hypertension ??? ABDOULAYE (obstructive sleep apnea) ??? Post concussive syndrome poor memory ??? Seizure disorder (HCC-CMS) (HCC) ??? Trigeminal neuralgia Past Surgical History: Procedure Laterality Date ??? BLEPHAROPLASTY 01/15/08 bilateral brow lift ??? ECTROPION REPAIR 01/09/08 bilateral lower lids ??? ROTATOR CUFF REPAIR Right 01/14/2019 No family history on file. Current Outpatient Medications Medication Sig Dispense Refill ??? aspirin 81 mg EC tablet Take 1 Tablet by mouth every 48 hours. ??? buPROPion (WELLBUTRIN SR) 150 mg SR tablet Take 1 tablet by mouth twice daily (Patient taking differently: Take 150 mg by mouth daily.) 180 Tablet 0 ??? furosemide (LASIX) 20 mg tablet TAKE 2 TABLETS BY MOUTH ONCE DAILY IN THE MORNING AND 1 ONCE DAILY IN THE AFTERNOON 270 Tablet 0 ??? LORazepam (ATIVAN) 0.5 mg tablet 3 Times a Day as Needed as needed for ANXIETY ??? losartan (COZAAR) 100 mg tablet Take 100 mg by mouth daily. No current facility-administered medications for this visit. [...] of Health Financial Resource Strain: Medium Risk ??? Difficulty of Paying Living Expenses: Somewhat hard Food Insecurity: Food Insecurity Present ??? Worried About Running Out of Food in the Last Year: Sometimes true ??? Ran Out of Food in the Last Year: Never true Transportation Needs: No Transportation Needs ??? Lack of Transportation (Medical): No ??? Lack of Transportation (Non-Medical): No Physical Activity: Not on file Stress: Not on file Social Connections: Not on file Housing Stability: Low Risk ??? Unable to Pay for Housing in the Last Year: No ??? Number of Places Lived in the Last Year: 1 ??? Unstable Housing in the Last Year: No Review of Systems A ten point review of systems was performed and was negative except for pertinent positives noted in the HPI Objective: BP 132/78 (BP Cuff Location: Right arm, BP Patient Position: Sitting, BP Cuff Sizes: Adult, regular) Pulse 63 Resp 18 SpO2 100% General appearance: alert, cooperative Skin: no evidence of bleeding or bruising, no edema and temperature normal Head: Normocephalic, without obvious abnormality, atraumatic Eyes: negative findings: conjunctivae and sclerae normal and pupils equal, round, reactive to lightand accomodation Neck: supple, symmetrical, trachea midline Lungs: non labored breathing Heart: regular rate and rhythm Extremities: all extremities warm and well perfused Mental Exam: Awake and alert, oriented to person, place and events related to medical condition; cooperative, following simple commands; speech fluent Cranial Nerves: Cranial Nerve II: Visual gutierrez were within normal limits to confrontation Cranial Nerve III, IV and : oculomotor, trochlear and abducens nerve were intact Cranial Nerve V: Facial sensation was normal to light touch and temperature Cranial Nerve VII: No facial nerve palsy noted Cranial Nerve VIII: hearing intact; Cranial Nerve IX and X: normal movement of soft palate; no noted dysarthria Cranial Nerve XI: able to shrug shoulder with some resistance placed Cranial Nerve XII: tongue midline no deviation with protrusion Motor Normal tone and bulk. No abnormal motor movements. Upper Extremity Right Left Deltoids 5/5 5/5 Bicep 5/5 5/5 Tricep 5/5 5/5 Concrete Stone Fabricator 5/5 5/5 Lower Extremity Right Left Hip Flexion 5/5 5/5 Knee Flexion 5/5 5/5 Knee Extension 5/5 5/5 Ankle Plantarflexion 5/5 5/5 Ankle Dorsiflexion 5/5 5/5 Reflexes 2+ bilateral patellar and biceps reflexes. Sensation Intact to crude and light Cerebellar/Movement Function No dysmetria on FNF Imaging CTA head/Neck 07/28/2022 IMPRESSION * 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 * Enlarged nodular thyroid gland in keeping with patient's history of multinodular goiter Lab Review All pertinent imaging reviewed Assessment: Kenyatta Vizcaino is a 81 y.o. 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 The etiology of that stroke is cryptogenic, but suspicious for cardio-embolic. PMHx HTN, ABDOULAYE, depression, anxiety. No change in size of aneurysm on this most recent imaging. Plan: ? ? Not currently taking statin due to muscle pain. Target LDL < 70 for secondary stroke prevention ??? Continue daily aspirin 81 mg for secondary stroke prevention ??? Discussed the use of superintendent marine oil terminal cardiac monitoring for atrial fibrillation with a loop recorder,but she did not feel it was necessary at this time. ? ? Target systolic blood pressure (top number) < 140 mmHg and Diastolic blood pressure (bottom number) < 80 mmHg ??? Will repeat CTA head and neck for any changes in aneurysm in 1 year ??? Discussed Stroke risk factors and secondary stroke prevention ??? Discussed signs and symptoms of stroke (BEFAST) ??? Reviewed imaging and other test results during hospitalization and any testing done post discharge ??? Provided my contact information with any additional questions regarding stroke; Janell Jj APRN [phone] ??? Follow up in stroke clinic 1 year Janell Jj APRN 08/17/2022 I spent a total of 30 minutes on the date of this encounter meeting with the patient and reviewing documentation/coordinating care as described in the above note. No procedures were performed at the time of the visit. documented in this encounter Plan of Treatment Upcoming Encounters Date Type Department Care Team (Late st Contact Info) Description 05/19/2024 11:00 EST Office Visit [facility] Family Medicine [address], [address] [address] Dane Rick MD [address] [place] [phone] Scheduled Orders Name Type Priority Associated Diagnoses Orde r Schedule CT ANGIO HEAD Imaging Routine Carotid aneurysm, right (HCC-CMS) Expected: 08/06/2023, Expires: 02/22/2024 CT ANGIO NECK Imaging Routine Carotid aneurysm, right (HCC-CMS) Expected: 08/06/2023, Expires: 02/22/2024 documented as of this encounter Visit Diagnoses Diagnosis Carotid aneurysm, right (HCC-CMS)- Primary Aneurysm of artery of neck documented in this encounter Care Teams Sample Weaver Relationship Specialty Start Date End Date Dane Rick MD [address] [place] [phone] PCP - General Family Medicine - Primary Care 08/09/22 Vicky Chamberlain, [facility] Coroner/Medical Examiner 06/12/22 01/22/24 documented as of this encounter
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
--- OUTSIDE RECORDS SUMMARY | 2024-02-08 01:10 | XMS_ITS | Encounter Summary ---
Author Organization [facility] Address [address] [place] [address] Care Team Providers Care Hourly Sales Staff Name Role Phone Vicky Chamberlain Unavailable [phone] Dane Rick MD Primary Care Provider [phone] Encounter Details Date Type Department Care Team (Latest Contact Info) Description 10/20/2022 Travel Social History Tobacco Use Types Packs/Day [...] Info) Description 05/19/2024 11:00 EST Office Visit [address], [address] [place] [address] Dane Rick MD [address] [place] [address] [address] [place] [address] documented as of this encounter Visit Diagnoses Not on filedocumented in this encounter Care Teams Hourly Sales Staff Relationship Specialty Start Date End Date Dane Rick MD [address] [place] [phone] PCP - General Family Medicine - Primary Care 08/09/22 Vicky Chamberlain, [facility] Overhauler Bus Truck 06/12/22 01/22/24 documented as of this encounter
--- OUTSIDE RECORDS SUMMARY | 2024-02-08 01:10 | XMS_ITS | Encounter Summary ---
Author Organization [facility] Address [address] [place] [address] Care Team Providers Care Baseball Sewer Hand Name Role Phone Vicky Chamberlain Unavailable [phone] Dane Rick MD Primary Care Provider [phone] Leticia Lieberman Unavailable Mendoza Guzmán MD Unavailable [phone] Reason for Visit * Reason Comments Medications Refill Encounter Details Date Type Department Care Team (Late st Contact Info) Description 08/30/2022 Refill [facility] Family Medicine [facility] [address] , [address] [place] [address] Otis Gee MD Medications Refill Social History Tobacco Use Types [...] AND 1 IN THE AFTERNOON 270 Tablet 09/01/2022 09/19/2022 buPROPion (WELLBUTRIN SR) 150 mg SR tablet Take 1 tablet by mouth twice daily 180 Tablet 09/01/2022 09/19/2022 documented in this encounter Miscellaneous Notes * Telephone Encounter - Bubba Brennan MA - 09/01/2022 1138 EDT CV MEDICATION REFILL Medication: furosemide (LASIX) 20 mg tablet Medication, dose, directions verified: TAKE 2 TABLETS BY MOUTH ONCE DAILY IN THE MORNING AND 1 ONCEDAILY IN?THE?AFTERNOON Pharmacy verified: [facility] Last office visit: 06/29/2022 Next office visit: 09/19/2022 CVPC MEDICATION REFILL Medication: buPROPion (WELLBUTRIN SR) 150 mg SR tablet Medication, dose, directions verified: Take 1 tablet by mouth twice daily Pharmacy verified: [facility] Last office visit: 06/29/2022 Next office visit: 09/19/2022 documented in this encounter Plan of Treatment Upcoming Encounters Date Type Department Care Team (Late st Contact Info) Description 05/19/2024 11:00 EST Office Visit [facility] Family Medicine [address], [address] [address] Dane Rick MD [address] [place] [phone] documented as of this encounter Visit Diagnoses Not on filedocumented in this encounter Discontinued Medications Medication Sig Discontinue Reason Start Date End Da te buPROPion (WELLBUTRIN SR) 150 mg SR tablet Take 1 tablet by mouth twice daily 05/30/2022 09/01/2022 furosemide (LASIX) 20 mg tablet TAKE 2 TABLETS BY MOUTH ONCE DAILY IN THE MORNING AND 1 ONCE DAILY IN THE AFTERNOON 05/30/2022 09/01/2022 documented as of this encounter Additional Health Concerns Infection Onset Date Last Indicated Resolved Time R/O COVID-19 08/13/2023 08/13/2023 08/13/2023 20:0 7 EDT documented as of this encounter Care Teams Baseball Sewer Hand Relationship Specialty Start Date End Date Dane Rick MD [address] [place] [address] [address] [place] [phone] PCP - General Family Medicine - Primary Care 08/09/22 Vicky Chamberlain, [facility] Screwmaker Automatic 06/12/22 01/22/24 Leticia Lieberman [address] [place] [phone] General Surgery 04/03/23 Mendoza Guzmán MD [address] [place] [address] [address] [place] [address] Otolaryngology 04/03/23 documented as of this encounter
--- OUTSIDE RECORDS SUMMARY | 2024-02-08 01:10 | XMS_ITS | Encounter Summary ---
Author Organization [facility] Address [address] [place] [address] Care Team Providers Care Second Time Worker Name Role Phone Vicky Chamberlain Unavailable [phone] Dane Rick MD Primary Care Provider [phone] Reason for Visit * Reason Onset Date Comments Prior Auth, Medication 09/21/2022 Hydroxyzi ne Encounter Details Date Type Department Care Team ([facility] Contact Info) Description 09/21/2022 Telephone [facility] Family Medicine [address], [address] [place] [address] Dane Rick MD [address] [place] [phone] Prior Auth, Medication (Hydroxyzine ) Social History Tobacco Use Types Packs/Day [...] slept in a fpc (including now)? No 05/02/2022 Interpersonal Safety Answer [...] encounter Miscellaneous Notes * Telephone Encounter - Joyce Lord LPN - 09/25/2022 1406 EDT Per RIANA Neely approved: Approved. This drug has been approved under the Member's Medicare Part D benefit. Approved quantity: 60 units per 20 day(s). You may fill up to a 90 day supply except for those on Specialty Tier 5, which can be filled up to a 30 day supply. Please call the pharmacy to process the prescription claim. Full approval notice printed, to front office to be scanned into chart. * Telephone Encounter - Joyce Lord LPN - 09/25/2022 1151 EDT PA submitted electronically via Florinda * Telephone Encounter - Adam Raman MA - 09/25/2022 0850 EDT Received 2nd fax. If paper, use [facility] Medicare Drug Coverage Request Form * Telephone Encounter - Berenice Condon MA - 09/21/2022 1147 EDT PA Needed for: Medication: Hydroxyzine 25mg Kirk: [id number] CoverBladimir/Yang drugs documented in this encounter Plan of Treatment Upcoming Encounters Date Type Department Care Team (Late st Contact Info) Description 05/19/2024 11:00 EST Office Visit [facility] Family Medicine - [address], [address] [place] [address] Dane Rick MD [address] [place] [address] [address] [place] [phone] documented as of this encounter Visit Diagnoses Not on filedocumented in this encounter Care Teams Second Time Worker Relationship Specialty Start Date End Date Dane Rick MD [address] [place] [phone] PCP - General Family Medicine - Primary Care 08/09/22 Vicky Chamberlain LICSW Merchandise Presentation Associate 06/12/22 01/22/24 documented as of this encounter
--- OUTSIDE RECORDS SUMMARY | 2024-02-08 01:10 | XMS_ITS | Encounter Summary ---
Author Organization [facility] Address [address] [place] [address] Care Team Providers Care Graduate Student Instructor Name Role Phone Vicky Chamberlain Unavailable [phone] Dane Rick MD Primary Care Provider [phone] Encounter Details Date Type Department Care Team (Late st Contact Info) Description 09/26/2022 Orders Only [facility] Family Medicine [facility] [address] [facility] [address] [place] [address] Dane Rick MD [address] [facility] [address] [place] [address] Hypercalcemia (Primary Dx) Social History Tobacco Use Types [...] Info) Description 05/19/2024 11:00 EST Office Visit [facility] [address] [address] [address], [address] [place] [address] Dane Rick MD [address] [place] [phone] documented as of this encounter Procedures Procedure Name Priority Date/Time Associated Diagnosis Comments VITAMIN D (25,OH) Add-On 09/25/2022 13: 00 EDT Hypercalcemia documented in this encounter Results * (ABNORMAL) VITAMIN D (25,OH) (09/25/2022 13:00 EDT) 25OH Vitamin D Tot <13(L) 30 - 100 ng/mL 09/26/2022 11:21 EDT [facility] Blood VENOUS BLOOD / Unknown Venipuncture / Unknown 09/25/2022 13:00 EDT 09/25/2022 13:56 EDT Dane Rick MD CHEMISTRY & BLOOD GA S ORDERABLES Performing Organization Address City/State/[facility] Co de Phone Number [facility] [address] [place] [address] documented in this encounter Visit Diagnoses Diagnosis Hypercalcemia- Primary documented in this encounter Care Teams Graduate Student Instructor Relationship Specialty Start Date End Date Dane Rick MD [address] [place] [phone] PCP - General Family Medicine - Primary Care 08/09/22 Vicky Chamberlain [facility] Supervisor Jewelry Department 06/12/22 01/22/24 documented as of this encounter
--- OUTSIDE RECORDS SUMMARY | 2024-02-08 01:10 | XMS_ITS | Encounter Summary ---
Author Organization [facility] Address [address] [place] [address] Care Team Providers Care Home Organizer Name Role Phone Otis Gee MD Primary Care Provider Vicky Gee Unavailable [phone] Encounter Details Date Type Department Care Team ([facility] st Contact Info) Description 08/04/2022 Patient Outreach [facility] - [facility] [address] [place] [address] Vicky Chamberlain LICSW 130 [facility] [address] [place], [place] [phone] Social History Tobacco Use Types Packs/Day Years [...] place to sleep or slept in a detention (including now)? No 05/02/2022 Interpersonal Safety Answer [...] this encounter Progress Notes * Vicky Chamberlain, [facility] - 08/04/2022 0838 EDT [facility] Primary Teaching Assistant Care Coordination Primary Teaching Assistant spoke with Kenyatta on 07/31/22 in order to coordinate care. Outgoing call to Kenyatta; This manager card send letter from provider to [facility] for application to [facility] for denture funding. - noted that there was turn over at [facility] and this application may be longer than presumed. - CM has attempted to email staff at [facility] in the last couple weeks with minimal responses - Sent email on 07/31 to staff to request update on application. PLAN: CM will continue to reach out to [facility] for updates on this application. Next Primary Teaching AssistantInvoicing Machine Operator: 08/25/2022, to Kenyatta holloway for update. LATRICE ENCISO 08/04/2022 8:39 documented in this encounter Plan of Treatment Upcoming Encounters Date Type Department Care Team (Late st Contact Info) Description 05/19/2024 11:00 EST Office Visit [facility] Family Medicine [address], [address] [address] Dane Rick MD [address] [place] [phone] documented as of this encounter Visit Diagnoses Not on filedocumented in this encounter Care Teams Home Organizer Relationship Specialty Start Date End Date Otis Gee MD PCP - General 01/14/10 08/08/22 Vicky Chamberlain LICSW Primary Teaching Assistant 06/12/22 01/22/24 documented as of this encounter
--- OUTSIDE RECORDS SUMMARY | 2024-02-08 01:10 | XMS_ITS | Encounter Summary ---
Author Organization [facility] Address [address] [place] [address] Care Team Providers Care Barnworker Groom Name Role Phone Vicky Chamberlain Unavailable [phone] Dane Rick MD Primary Care Provider [phone] Encounter Details Date Type Department Care Team (Late st Contact Info) Description 09/25/2022 12:50 EDT Phlebotomy Only [facility] - Outpatient Phlebotomy Drawing [address] [place] [address] Lab, [facility] Hypercalcemia Social History Tobacco Use Types Packs/Day Years [...] Info) Description 05/19/2024 11:00 EST Office Visit [facility] Family Medicine [facility] 246 [facility] [place] [address] [place] [address] Dane Rcik MD 246 [facility] [address] [place] [address] documented as of this encounter Procedures Procedure Name Priority Date/Time Associated Diagnosis Comments CALCIUM, IONIZED Routine 09/25/2022 13:0 1 EDT Hypercalcemia PTH INTACT Routine 09/25/2022 13:00 EDT Hypercalcemia documented in this encounter Results * CALCIUM, IONIZED (09/25/2022 13:01 EDT) Calcium, Ionized 1.32 1.14 - 1.35 mmol/L 09/25/2022 13:12 EDT [facility] Blood VENOUS BLOOD / Unknown Venipuncture / Unknown 09/25/2022 13:01 EDT 09/25/2022 13:02 EDT Dane Rick MD CHEMISTRY & BLOOD GA S ORDERABLES [facility] * (ABNORMAL) PTH INTACT (09/25/2022 13:00 EDT) Intact PTH 208(H) 19 - 88 pg/mL 09/25/2022 21:33 EDT [facility] Blood VENOUS BLOOD / Unknown Venipuncture / Unknown 09/25/2022 13:00 EDT 09/25/2022 13:56 EDT Dane Rick MD CHEMISTRY & BLOOD GA S ORDERABLES [facility] [address] [place] [address] documented in this encounter Visit Diagnoses Diagnosis Hypercalcemia documented in this encounter Care Teams Barnworker Groom Relationship Specialty Start Date End Date Dane Rick MD [address] [place] [phone] PCP - General Family Medicine - Primary Care 08/09/22 Vicky Chamberlain, [facility] Drawing In Machine Tender 06/12/22 01/22/24 documented as of this encounter
--- OUTSIDE RECORDS SUMMARY | 2024-02-08 01:10 | XMS_ITS | Encounter Summary ---
Author Organization [facility] Address [address] [place] [address] Care Team Providers Care Exhibits Coordinator Name Role Phone Vicky Chamberlain Unavailable [phone] Dane Rick MD Primary Care Provider [phone] Encounter Details Date Type Department Care Team ([facility] st Contact Info) Description 08/22/2022 Orders Only [facility] Radiology - Main [place] [address] [place], [place] [phone] Julia Lay MD [address] [place] [phone] Social History Tobacco Use Types Packs/Day Years [...] medical appointments or from getting medications? No 01/3 04/2022 In the past 12 months, has l [...] Info) Description 05/19/2024 11:00 EST Office Visit [place] [address] Naty Garcia, [facility] 2 [place] [address] Dane Rick MD [address] [place] [phone] documented as of this encounter Visit Diagnoses Not on filedocumented in this encounter Care Teams Exhibits Coordinator Relationship Specialty Start Date End Date Dane Rick MD [address] [place] [phone] PCP - General Family Medicine - Primary Care 08/09/22 Vicky Chamberlain, [facility] Aerial Crop Duster 06/12/22 01/22/24 documented as of this encounter
--- OUTSIDE RECORDS SUMMARY | 2024-02-08 01:10 | XMS_ITS | Encounter Summary ---
Author Organization [facility] Address [address] [place] [address] Care Team Providers Care Benefits Administrator Name Role Phone BulmaroVicky LATRICE Unavailable [phone] Dane Rick MD Primary Care Provider [phone] Encounter Details Date Type Department Care Team ([facility] st Contact Info) Description 11/08/[address] [facility] Family Medicine - [facility] [address] [place] [phone] Vicky Chamberlain LICSW 130 [facility] [address] [place] [address] Social History Tobacco Use Types [...] as of this encounter Progress Notes * Bulmaro, LATRICE Perry - 11/08/2022 0908 EDT [facility] Care Management Follow Up Traffic Officer followed up with Kenyatta by phone for general health care follow up. TOPIC OF CONVERSATION: ??? Reviewed assessment and plan from previous visit with patient. ??? Engaged patient in conversation related to positive behavior change, self- management, goal setting and action planning using motivational interviewing and active listening. Vision problem, would like to discuss insurance - CM reccommended that she schedule with a Dental - Working with the dental office for her dentures. Discussed recent ED visit, haven't heard back from anyone about results - No HAIM follow up scheduled. Housing - Landlord has verbally agreed that she can stay, will not evict her. - Continues to be on Section 8 housing voucher. - [place] in the area, has caused some minor respiratory stuffy symptoms. - Concerned that her landlord has been coming into the apartment without her permission. Prioritized Patient Identified Goals: 1. Kenyatta will continue to follow up with scheduled appointments and recommendations from her providers. ?? Achievement towards goals: In progress 2. Kenyatta will call [facility] counselor with in one month to request appointment to discuss increasing benefits for health care. In Progress Plan: Next Traffic OfficerEpic Cadence Specialists: 12/09/2022 LATRICE ENCISO 11/08/2022 9:09 documented in this encounter Plan of Treatment Upcoming Encounters Date Type Department Care Team (Late st Contact Info) Description 05/19/2024 11:[address] [facility] Family Medicine - [place] 246 [facility] 2 [place], [place] [phone] Dane Rick MD [address] [place] [address] 2 [place] [phone] documented as of this encounter Visit Diagnoses Not on filedocumented in this encounter Care Teams Benefits Administrator Relationship Specialty Start Date End Date Dane Rick MD [address] [place] [address] 2 [place] [phone] PCP - General Family Medicine - Primary Care 08/09/22 Vicky Chamberlain, IRRIGATION INSTALLATION SPECIALIST Traffic Officer 06/12/22 01/22/24 documented as of this encounter
--- OUTSIDE RECORDS SUMMARY | 2024-02-08 01:10 | XMS_ITS | Encounter Summary ---
Author Organization [facility] Address [address] [place] [address] Care Team Providers Care Dental Assistant Instructor Name Role Phone Vicky Chamberlain Unavailable [phone] Dane Rick MD Primary Care Provider [phone] Reason for Visit * Reason Onset Date Comments Follow-up 11/09/2022 Referral Request 11/09/2022 Encounter Details Date Type Department Care Team ([facility] Contact Info) Description 11/09/2022 Telephone [facility] [place] [address], [address] [place] [address] Dane Rick MD 246 [facility] [address] [place] [phone] Follow-up; Referral Request Social History Tobacco Use Types [...] Miscellaneous Notes * Telephone Encounter - Elisabet Luis RN - 11/09/2022 1206 EDT I spoke to patient. She is having PT for her foot and knee and her balance is improving. She is in the process of seeking an nurses educator She will call if needed * Telephone Encounter - Dane Rick MD - 11/09/2022 1151 EDT Her head imaging at the ER was unchanged and not concerning for a stroke or bleed. Her knee xray showed mod-severe arthritis and her orthopedic doctor is recommending joint injections. If patient continues to have blurry vision, I can place a referral to ophthalmology. Let me know how she would like to proceed * Telephone Encounter - Elisabet Luis RN - 11/09/2022 0921 EDT Yesterday patient stated that she has not heard about results from ER the catscan of the head and neck and the left knee. She is compl of vision changes but not sure she needs referr for this. * Telephone Encounter - Nedra Veras - 11/09/2022 0837 EDT Images from the original note were not included. CC Chart message from Vicky: Vicyk Chamberlain, [facility] Dane Rick MD; P [facility] Pss/Scheduling Does she need a referral for Opthalmology? Could we offer an additional HAIM? Or someone call her to go over the CT results. Thank you I called and left a vm for the pt to call back and schedule a f/u for her ED visit on 10/20. Please advise on the results and referral mentioned documented in this encounter Plan of Treatment Upcoming Encounters Date Type Department Care Team (Late st Contact Info) Description 05/19/2024 11:00 EST Office Visit [facility] Family Medicine [address], [facility] 2 [place] [address] Dane Rick MD [address] [place] [address] 2 [place] [phone] documented as of this encounter Visit Diagnoses Not on filedocumented in this encounter Care Teams Dental Assistant Instructor Relationship Specialty Start Date End Date Dane Rick MD [address] [place] [address] 2 [place] [phone] PCP - General Family Medicine - Primary Care 08/09/22 Vicky Chamberlain, [facility] Pipe And Test Supervisor 06/12/22 01/22/24 documented as of this encounter
--- OUTSIDE RECORDS SUMMARY | 2024-02-08 01:10 | XMS_ITS | Encounter Summary ---
Author Organization [facility] Address [address] [place] [address] Care Team Providers Care Culinary Intern Name Role Phone Vicky Chamberlain Unavailable [phone] Dane Rick MD Primary Care Provider [phone] Encounter Details Date Type Department Care Team (Latest Contact Info) Description 11/03/2022 Plan of Care Documentation [address] [address] Social History Tobacco Use Types Packs/Day Years [...] Progress Notes * Maribeth Stoll, PT - 11/03/2022 1209 EDT Outpatient Rehab Plan of Care ASSESSMENT Therapy Diagnosis: left shoulder pain Problem List: Decreased strength and Need for an independent home exercise program Assessment: Presentation is consistent with left shoulder external rotator weakness. Kenyatta deniesany difficulty with her left shoulder and demonstrates good ROM. This may be a long standing weakness due to RTC tendionpathy or tearing. I recommend providing her with HEP for strengthening of the shoulder. I also recommend that an evaluation of patient's balance be performed and cervical pain dueto her fall risk that is suspected. Equipment Needed: none Barriers to Learning: cognitive Potential Barriers to Progress: memory difficulties Response to Evaluation: Well Rehabilitation Potential: Motivation/Commitment to Therapy: Good Rehabilitation Potential: Fair Short-Term Goals Timeframe: 11/24/22 1. Independent with HEP for left shoulder strengthening. Long-Term Goals Timeframe: deferred deferred PLAN Medical Necessity: Therapy intervention is indicated in order to return to a premorbid level of function or significantly improve current level of function. Physical Therapy is recommended for: Treatment Frequency/ Duration: 2 visits over 3 weeks. Therapy Treatment to include: 19577 - Therapeutic Exercise and 16082 - Neuromuscular Re-education Recommended Consults: assessment of balance and c-spine Development of Plan of Care: Patient participated in development of plan of care today. Plan for next visit: review HEP, progress. ATTENDING PHYSICIAN: Medicare certification needed. Your signature indicates you approve the therapy goals and plan of care outlined on this document dated 11/03/2022. Thank you! Attending Physician Signature Date Maribeth Stoll PT 11/03/2022 12:03 documented in this encounter Plan of Treatment Upcoming Encounters Date Type Department Care Team (Late st Contact Info) Description 05/19/2024 11:00 EST Office Visit [facility] Family Medicine [address], [facility] 2 [place] [address] Dane Rick MD [address] [place] [phone] documented as of this encounter Visit Diagnoses Not on filedocumented in this encounter Care Teams Culinary Intern Relationship Specialty Start Date End Date Dane Rick MD [address] [place] [phone] PCP - General Family Medicine - Primary Care 08/09/22 Vicky Chamberlain, [facility] Interior Wirer 06/12/22 01/22/24 documented as of this encounter
--- OUTSIDE RECORDS SUMMARY | 2024-02-08 01:10 | XMS_ITS | Encounter Summary ---
Author Organization [facility] Address [address] [place] [address] Care Team Providers Care Window Air Conditioner Installer Name Role Phone Otis Gee MD Primary Care Provider Joseph ChamberlainGeraVicky CONVERSION MAN Unavailable [phone] Reason for Visit * Reason Onset Date Comments Follow-up 07/28/2022 CTA scan results Encounter Details Date Type Department Care Team ([facility] Contact Info) Description 07/28/2022 Telephone [facility] Adult Neurology - [facility] [address] [place], [place] [phone] Janell Jj, BLADE CHANGER [address] [place] [address], [address] [place] [address] Follow-up (CTA scan results) Social History Tobacco Use Types Packs/Day Years [...] encounter Miscellaneous Notes * Telephone Encounter - Janell Jj NP - 07/28/2022 1536 EDT Contacted patient regarding results of CTA head and neck that was done today: IMPRESSION * 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 * Enlarged nodular thyroid gland in keeping with patient's history of multinodular goiter No change is size of aneurysm, so will plan next CTA for next year. Discussed the importance of statins to prevent further stenosis and the use of aspirin. States thatshe has muscle weakness with statins and bruises easily with daily aspirin. I told her that I wouldgive her PCP a call and we can come up with an appropriate regimen for secondary stroke prevention.Will see her in Stroke clinic in July 2022. Janell jJ APRN 07/28/2022 documented in this encounter Plan of Treatment Upcoming Encounters Date Type Department Care Team (Late st Contact Info) Description 05/19/2024 11:00 EST Office Visit [facility] Family Medicine [address], [address] [place] [address] Dane Rick MD [address] [place] [address] [address] [place] [phone] documented as of this encounter Visit Diagnoses Not on filedocumented in this encounter Care Teams Window Air Conditioner Installer Relationship Specialty Start Date End Date Otis Gee MD PCP - General 01/14/10 08/08/22 Vicky Chamberlain CONVERSION MAN Sales Operations Consultant 06/12/22 01/22/24 documented as of this encounter
--- OUTSIDE RECORDS SUMMARY | 2024-02-08 01:10 | XMS_ITS | Encounter Summary ---
Author Organization [facility] Address [address] [place] [address] Care Team Providers Care Patient Transport Officer Name Role Phone Vicky Chamberlain Unavailable [phone] Dane Rick MD Primary Care Provider [phone] Reason for Referral * Radiology Services (Routine/Next Available) - Specialty Report Received Specialty Diagnoses / Procedures Referred By [facility] Referred To Contact Diagnoses Left shoulder pain, unspecified chronicity Procedures XR SHOULDER LEFT 2 OR MORE VIEWS Dane Rick MD [address] [place] [phone] [facility] [place]erral ID Status Reason Start Date Expiration Date V isits Requested Visits Authorized [id number] Specialty Report Received 09/19/2022 1 1 Reason for Visit * Radiology Services (Routine/Next Available) - Specialty Report Received Specialty Diagnoses / Procedures [facility] Referred To Contact Diagnoses Left shoulder pain, unspecified chronicity Procedures XR SHOULDER LEFT 2 OR MORE VIEWS Dane Rick MD [address] [place] [phone] [facility] Referral ID Status Reason Start Date Expiration Date V isits Requested Visits Authorized [id number] Specialty Report Received 09/19/2022 1 1 Encounter Details Date Type Department Care Team (Latest Contact Info) Description 09/28/2022 13:15 EDT - 09/28/2022 23:[address] [facility] Xray [address] [place] [address] Left shoulder pain, unspecified chronicity Discharge Disposition: Home or Self Care Social [...] hours. 09/19/2022 furosemide (LASIX) 20 mg tablet TAKE 2 TABLETS BY MOUTH ONCE DAILY IN THE MORNING AND 1 IN THE AFTERNOON 270 Tablet 09/19/2022 04/03/2023 hydrOXYzine (ATARAX) 25 mg tablet Take 1 Tablet by mouth 3 times daily as needed for Itching. 60 Tablet 09/19/2022 01/29/2024 losartan (COZAAR) 100 mg tablet Take 1 Tablet by mouth daily. 90 Tablet 1 09/19/2022 12/26/2022 documented as of this encounter Discharge Disposition Disposition Code Departure Means Destination Home or Self Care documented in this encounter Plan of Treatment Upcoming Encounters Date Type Department Care Team (Late st Contact Info) Description 05/19/2024 11:[address] [facility] Family Medicine [address], [address] [place] [address] Dane Rick MD [address] [place] [phone] documented as of this encounter Procedures Procedure Name Priority Date/Time Associated Diagnosis Comments XR SHOULDER LEFT 2 OR MORE VIEWS Routine 09/28/2022 13:52 EDT Left shoulder pain, unspecified chronicity documented in this encounter Results * XR SHOULDER LEFT 2 OR MORE VIEWS (09/28/2022 13:52 EDT) Anatomical Region Laterality Modality Left Computed Radiogr aphy 09/28/2022 14:2 2 EDT Impressions 09/28/2022 14:22 EDT 1. ??Possible age-indeterminate Hill-Sachs impaction fracture. Please correlate for prior anterior glenohumeral dislocation. Please see discussion above. 2. ??Probable rotator cuff calcific tendinitis. [id number] Narrative 09/28/2022 14:22 EDT XR SHOULDER LEFT 2 OR MORE VIEWS ?? Signs and Symptoms/Comments: ??left shoulder pain after fall; M25.512: Left shoulder pain, unspecified chronicity. Comparison: None. FINDINGS: Left shoulder: 3 views. Bones: Possible subtle Hill-Sachs impaction fracture deformity, age- indeterminate. Please correlate for prior anterior glenohumeral dislocation. Otherwise, no evidence of acute fracture. Glenohumeral and acromioclavicular joints are currently congruent. Degenerative changes: Mild glenohumeral and acromioclavicular degenerative changes. Soft tissues: Small lobulated calcifications along the superior aspect of the humeral head, compatible with rotator cuff calcific tendinitis. Procedure Note Vlad Boyd MD - 09/28/2022 XR SHOULDER LEFT 2 OR MORE VIEWS Signs and Symptoms/Comments: left shoulder pain after fall; M25.512: Leftshoulder pain, unspecified chronicity. Comparison: None. FINDINGS: Left shoulder: 3 views. Bones: Possible subtle Hill-Sachs impaction fracture deformity,age- indeterminate. Please correlate for prior anterior glenohumeraldislocation. Otherwise, no evidence of acute fracture. Glenohumeral andacromioclavicular joints are currently congruent. Degenerative changes: Mild glenohumeral and acromioclavicular degenerativechanges. Soft tissues: Small lobulated calcifications along the superior aspect ofthe humeral head, compatible with rotator cuff calcific tendinitis. IMPRESSION 1. Possible age-indeterminate Hill-Sachs impaction fracture. Pleasecorrelate for prior anterior glenohumeral dislocation. Please seediscussion above. 2. Probable rotator cuff calcific tendinitis. [id number] Dane Rick MD IMG DIAGNOSTIC IMAGI NG ORDERABLES documented in this encounter Visit Diagnoses Diagnosis Left shoulder pain, unspecified chronicity documented in this encounter Care Teams Patient Transport Officer Relationship Specialty Start Date End Date Dane Rick MD [address] [place], [place] [phone] PCP - General Family Medicine - Primary Care 08/09/22 Vicky Chamberlain [facility] Olap Developer 06/12/22 01/22/24 documented as of this encounter
--- OUTSIDE RECORDS SUMMARY | 2024-02-08 01:10 | XMS_ITS | Encounter Summary ---
Author Organization [facility] Address [address] [place] [address] Care Team Providers Care Ems Helicopter Pilot Name Role Phone Vicky Chamberlain Unavailable [phone] Dane Rick MD Primary Care Provider [phone] Encounter Details Date Type Department Care Team ([facility] st Contact Info) Description 08/22/2022 Orders Only [facility] Radiology - Main [place] [address] [place], [place] [phone] Julia Lay MD [address] [place] [phone] Social History Tobacco Use Types Packs/Day Years [...] place to sleep or slept in a long term (including now)? No 05/02/2022 Interpersonal Safety Answer [...] Info) Description 05/19/2024 11:00 EST Office Visit [place] [address] Naty Garcia, [facility] 2 [place] [address] Dane Rick MD [address] [place] [phone] documented as of this encounter Visit Diagnoses Not on filedocumented in this encounter Care Teams Ems Helicopter Pilot Relationship Specialty Start Date End Date Dane Rick MD [address] [place] [phone] PCP - General Family Medicine - Primary Care 08/09/22 Vicky Chamberlain, [facility] Cold Roll Operator 06/12/22 01/22/24 documented as of this encounter
--- OUTSIDE RECORDS SUMMARY | 2024-02-08 01:10 | XMS_ITS | Encounter Summary ---
Author Organization [facility] Address [address] [place] [address] Care Team Providers Care Tour Operator Name Role Phone BulmaroVicky LATRICE Unavailable [phone] Dane Rick MD Primary Care Provider [phone] Encounter Details Date Type Department Care Team ([facility] st Contact Info) Description 09/12/2022 Patient Outreach [facility] Family Medicine - [facility] [address] [phone] Vicky Chamberlain LICSW 130 [facility] [address] [place] [address] Social History Tobacco Use Types [...] this encounter Progress Notes * Vicky Chamberlain, ARTIST REPRESENTATIVE - 09/12/2022 1208 EDT [facility] Care Management Follow Up Bag Maker followed up with Kenyatta by phone for dental. TOPIC OF CONVERSATION: ??? Reviewed assessment and plan from previous visit with patient. ??? Engaged patient in conversation related to positive behavior change, self- management, goal setting and action planning using motivational interviewing and active listening. Incoming call from Fredy at [facility], states that Hari has been awarded the funding for her dentures! - Fredy states that a check will be made out and sent to [facility]. CM calls Kenyatta: - Kenyatta very appreciative of the funding, states that the service is on Sunday. - CM notes that she will likely not have the dentures by then, but we'll be on our way to getting them. Prioritized Patient Identified Goals: 1. Keynatta will call [facility] to verify appointment and received payment with in 2 weeks. Achievement towards goals: In progress 2. Kenyatta will continue to follow up with care management as needed for support with dental and buttermaker helper care planing. Achievement towards goals: In progress Plan: Follow up with Kenyatta in 2 weeks Next Bag MakerStretcher And Drier: 09/26/2022 LATRICE ENCISO 09/12/2022 12:08 documented in this encounter Plan of Treatment Upcoming Encounters Date Type Department Care Team (Late st Contact Info) Description 05/19/2024 11:00 EST Office Visit [facility] Family Medicine [address], [facility] 2 [place], [place] [phone] Dane Rick MD [address] [place] [address] 2 [place] [phone] documented as of this encounter Visit Diagnoses Not on filedocumented in this encounter Care Teams Tour Operator Relationship Specialty Start Date End Date Dane Rick MD [address] [place] [address] 2 [place] [phone] PCP - General Family Medicine - Primary Care 08/09/22 Vicky Chamberlain LICSW Bag Maker 06/12/22 01/22/24 documented as of this encounter
--- OUTSIDE RECORDS SUMMARY | 2024-02-08 01:10 | XMS_ITS | Encounter Summary ---
Author Organization [facility] Address [address] [place] [address] Care Team Providers Care Warehouse Record Clerk Name Role Phone Vicky Chamberlain Unavailable [phone] Dane Rick MD Primary Care Provider [phone] Encounter Details Date Type Department Care Team (Late st Contact Info) Description 11/03/2022 Orders Only [facility] Family Medicine [address], [place] [address] [place] [address] Dane Rick MD [address] [facility] [address] [place] [address] Social History Tobacco Use Types Packs/Day [...] Recorded In the last 10 days, have austen u been in contact with someone who [...] Info) Description 05/19/2024 11:00 EST Office Visit [facility] Family [address], [facility] 2 [place] [address] Dane Rick MD [address] [place] [phone] documented as of this encounter Visit Diagnoses Not on filedocumented in this encounter Care Teams Warehouse Record Clerk Relationship Specialty Start Date End Date Dane Rick MD [address] [place] [phone] PCP - General Family Medicine - Primary Care 08/09/22 Vicky Chamberlain SUPERVISOR IN CIRCUIT TESTING Photoradio Operator 06/12/22 01/22/24 documented as of this encounter
--- OUTSIDE RECORDS SUMMARY | 2024-02-08 01:10 | XMS_ITS | Encounter Summary ---
Author Organization [facility] Address [address] [place] [address] Care Team Providers Care Orthodontic Band Maker Name Role Phone Otis Gee MD Primary Care Provider Joseph AguilarVicky de andaSW Unavailable [phone] Reason for Visit * Radiology Services (Routine/Next Available) - Receiving Office to Obtain Authorization Specialty Diagnoses / Procedures Referred By Franky ferreira Referred To Contact Diagnoses Carotid aneurysm, right (HCC-CMS) Procedures CT ANGIO HEAD NECK CT ANGIO HEAD Janell Jj, CYLINDER MACHINE OPERATOR PULP DRIER [address] [place] [address] 2 [place] [address] [facility] Referral ID Status Reason Start Date Expiration Date Visits Requested Visits Authorized [id number] Receiving Office to Obtain Authorization 07/29/2021 1 1 Encounter Details Date Type Department Care Team (Latest Contact Info) Description 07/28/2022 10:25 EDT - 07/28/2022 23:59 EDT Hospital Encounter [facility] Radiology CT Outpatient - [address] [address] Discharge Disposition: Home or Self Care Social History Tobacco Use Types Packs/Day Years Used Date Smoking Tobacco: Never Smokeless Tobacco: Never Alcohol Use Standard Drinks/Week Comments Yes 0 (1 standard drink = 0.6 oz pur e alcohol) occasionally Overall Financial Resource Strain (CARDIA) Barbarae r Date Recorded How hard is it [...] you? Never 05/02/2022 How often does anyone, ealina gutierrez family, insult, scream, curse or threaten [...] 1 Tablet by mouth every 48 hours. 06/29/2022 09/19/2022 buPROPion (WELLBUTRIN SR) 150 mg SR tablet Take 1 tablet by mouth twice daily 180 Tablet 05/30/2022 09/01/2022 furosemide (LASIX) 20 mg tablet TAKE 2 TABLETS BY MOUTH ONCE DAILY IN THE MORNING AND 1 ONCE DAILY IN THE AFTERNOON 270 Tablet 05/30/2022 09/01/2022 LORazepam (ATIVAN) 0.5 mg tablet 3 Times a Day as Needed as needed for ANXIETY 09/19/2022 losartan (COZAAR) 100 mg tablet Take 100 mg by mouth daily. 05/16/2022 09/19/2022 documented as of this encounter Discharge Disposition Disposition Code Departure Means Destination Home or Self Care documented in this encounter Plan of Treatment Upcoming Encounters Date Type Department Care Team (Late st Contact Info) Description 05/19/2024 11:00 EST Office Visit [facility] Family Medicine [address], [place] [address] [place] [address] Dane Rick MD [address] [place] [address] [address] [place] [address] documented as of this encounter Procedures Procedure Name Priority Date/Time Associated Diagnosis Comments CT ANGIO HEAD NECK Routine 07/28/2022 10 :40 EDT Carotid aneurysm, right ([facility]) documented in this encounter Visit Diagnoses Not on filedocumented in this encounter Administered Medications Inactive Administered Medications - up to 3 most recent administrations Medication Order MAR Action Action Date Dose Rate Site iohexoL (OMNIPAQUE 350) solution 100 mL 100 mL, intravenous, Once in imaging, 1 dose, Starting on Sun07/28/22 at 1026, Until Sun07/28/22 at 1040, Routine, Imaging Protocol Orders Given 07/28/2022 10:40 EDT 65 mL documented in this encounter Care Teams Orthodontic Band Maker Relationship Specialty Start Date End Date Otis Gee MD PCP - General 01/14/10 08/08/22 Vicky Chamberlain, [facility] Mailer Apprentice 06/12/22 01/22/24 documented as of this encounter
--- OUTSIDE RECORDS SUMMARY | 2024-02-08 01:10 | XMS_ITS | Encounter Summary ---
Author Organization [facility] Address [address] [place] [address] Care Team Providers Care Fashion Consultant Sales Name Role Phone Vicky Chamberlain Unavailable [phone] Dane Rick MD Primary Care Provider [phone] Reason for Visit * Reason Onset Date Comments Constipation 08/22/2022 Arm Injury 08/22/2022 Medication Questions 08/22/2022 Encounter Details Date Type Department Care Team ([facility] Contact Info) Description 08/22/2022 Telephone [facility] Family Medicine [address], [facility] 2 [place] [address] Dane Rick MD [address] [facility] [address] [place] [address] Constipation; Arm Injury; Medication Questions Social History Tobacco Use Types [...] encounter Miscellaneous Notes * Telephone Encounter - Bre Day RN - 08/24/2022 1143 EDT Pt notified per JI note. Pt states she has restarted the Losartan. Pt will not be restating the Bupropion as she has passed more stool than usual since stopping it and feels the constipation is related to the medication. Pt would like to be seen sooner for her shoulder and was advised that she can to go to any day for day appt. Update to JI on Bupropion. * Telephone Encounter - Dane Rick MD - 08/24/2022 1103 EDT 1. Agree with plan. have patient continue tie, fluids and exercise 2. Agree that patient should continue losartan and bupropion 3. Patient will need to be evaluated before x-ray order will be placed * Telephone Encounter - Bre Day RN - 08/23/2022 1022 EDT 1)Pt states she has had on going constipation for over a year. Pt is bloated, gassy and only passessmall amounts of stool every 3 days or sometimes longer. Miralax not helpful so no longer taking. Pt occasionally takes Docusate Sodium, unclear if helpful. Pt drank Smooth Move Tea yesterday and passed a large amount of stool today. Pt advised to continue the tea, increase fluids/fiber/exercise. 2)Pt stopped Bupropion & Losartan on Sunday because she through they were contributing to her constipation. Pt has been on both med's for years and was advised not to stop the 2 med's without guidance from her PCP. 3)Pt is requesting a left shoulder xray on the guidance of chiropractor. Pt fell 3 weeks ago. Pt aware she may need to be seen prior to this being ordered. Pt has a visit with CHIRAG on 09/19. JI-any further advise in the meantime? Xray? * Telephone Encounter - Nisa Negron - 08/23/2022 0940 EDT Pt called back * Telephone Encounter - Bre Day RN - 08/23/2022 0932 EDT LM for pt to call back * Telephone Encounter - Marta Oh - 08/23/2022 0842 EDT Kenyatta calling with update, her Chiropractor doctor recommends she have XR done for shoulder, [facility] in [place]. She has no pain in shoulder, frequent twinges. She stopped taking Bupropion &Losartan, last dose of both med's was Sunday morning. Someone told her these med's could cause the bowl problems she has. She reports she passed a very large BM this morning @ 4 am. Please advise on shoulder imaging & medication concerns. * Telephone Encounter - Marta Oh - 08/22/2022 1515 EDT Kenyatta showed up today for OV with TC. I explained we left a message to call to r/s OV on 08/09. Wer/s her for 09/19 with JI for bowel problem. Kenyatta reports she is not passing BM's well. She described very small pinky sized BM's every 4 days or so. She also has concerns about her shoulder, wondering if she can have imaging order? Reports what they think is a growth. documented in this encounter Plan of Treatment Upcoming Encounters Date Type Department Care Team (Late st Contact Info) Description 05/19/2024 11:00 EST Office Visit [facility] Family Medicine [address], [address] [address] [place] [address] Dane Rick MD [address] [place] [address] [address] [place] [phone] documented as of this encounter Visit Diagnoses Not on filedocumented in this encounter Care Teams Fashion Consultant Sales Relationship Specialty Start Date End Date Dane Rick MD [address] [place] [phone] PCP - General Family Medicine - Primary Care 08/09/22 Vicky Chamberlain, [facility] Software Maintenance Engineer 06/12/22 01/22/24 documented as of this encounter
--- OUTSIDE RECORDS SUMMARY | 2024-02-08 01:10 | XMS_ITS | Encounter Summary ---
Author Organization [facility] Address [address] [place] [address] Care Team Providers Care Patient Services Technician Name Role Phone Vicky Chamberlain Unavailable [phone] Dane Rick MD Primary Care Provider [phone] Reason for Visit * Reason Onset Date Comments Nausea 09/25/2022 Encounter Details Date Type Department Care Team ([facility] st Contact Info) Description 09/25/2022 Telephone [facility] Family Medicine [address], [address] [address] [place] [address] Dane Rick MD [address] [facility] [address] [place] [address] Nausea Social History Tobacco Use Types Packs/Day Years [...] Telephone Encounter - Bre Day RN - 09/25/2022 1141 EDT Pt notified per CHIRAG note * Telephone Encounter - Dane Rick MD - 09/25/2022 1129 EDT Patient may take lorzepam or hyroxyzine for anxiety but do not take at the same time. * Telephone Encounter - Bre Day RN - 09/25/2022 1013 EDT Pt states she buried her last week. Pt reports chest feels empty, no motivation, slight nauseas feeling in throat like I was quite upset about something, listless, no pep or energy, chin quivering. Pt denies SI and self harm, absolutely not, wouldn't even entertain it. Pt took 1 lorazepam yesterday, which provided some short term help, pt plans to take this med againtoday. Pt has not yet picked up the hydroxyzine but plans to. Pt speaks with a psychologist daily and talked to her already today. Pt advised to try distracting activities or activities of interest, deep breathes, reach out to friends, walk. Pt saw CHIRAG on 09/19 CHIRAG-further advise? * Telephone Encounter - Nedra Veras - 09/25/2022 0910 EDT Pt called with complaints of feeling weak and a weird feeling in her stomach. Denies SOB. Had buried her a week ago documented in this encounter Plan of Treatment Upcoming Encounters Date Type Department Care Team (Late st Contact Info) Description 05/19/2024 11:00 EST Office Visit [facility] Family Medicine [address], [address] [place] [address] Dane Rick MD [address] [place] [address] [address] [place] [phone] documented as of this encounter Visit Diagnoses Not on filedocumented in this encounter Care Teams Patient Services Technician Relationship Specialty Start Date End Date Dane Rick MD [address] [place] [phone] PCP - General Family Medicine - Primary Care 08/09/22 Vicky Chamberlain [facility] Healthcare Specialist 06/12/22 01/22/24 documented as of this encounter
--- OUTSIDE RECORDS SUMMARY | 2024-02-08 01:10 | XMS_ITS | Encounter Summary ---
Author Organization [facility] Address [address] [place] [address] Care Team Providers Care Craft Artist Name Role Phone Vicky ChamberlainSW Unavailable [phone] Dane Rick MD Primary Care Provider [phone] Reason for Referral * PT/OT/ST (Routine/Next Available) - Specialty Report Received Specialty Diagnoses / Procedures Referred By Franky ferreira Referred To Contact Rehab Therapies Diagnoses Closed fracture of shoulder, unspecified laterality, with routine healing, subsequent encounter Dane Rick MD [address] [place] [address] [address] [place] [address] [facility] [address] [place] [address] Referral ID Status Reason Start Date Expiration Date Visits Requested Visits Authorized [id number] Specialty Report Received Specialty Services Required 09/28/2022 1 1 Question Answer Reason for Request: Hill Sachs fracture of shoulder Comments This referral may serve as a referral to occupational therapy if appropriate. * Consult (Routine/Next Available) - Specialty Report Received Specialty Diagnoses / Procedures Referred By Franky ferreira Referred To Contact Orthopedic Surgery Diagnoses Closed fracture of shoulder, unspecified laterality, with routine healing, subsequent encounter Dane Rick MD [address] [place] [address] [address] [place] [address] [facility] [address] [place] [address] Referral ID Status Reason Start Date Expiration Date Visits Requested Visits Authorized [id number] Specialty Report Received Specialty Services Required 09/28/2022 1 1 Question Answer Reason for Request: Flynn bear fracture of shoulder Reason for Visit * Reason Onset Date Comments Diagnostic Imaging Report 09/28/2022 Encounter Details Date Type Department Care Team (Late st Contact Info) Description 09/28/2022 Telephone [facility] [address] [place] [address] Dane Rick MD [address] [facility] [address] [place] [address] Diagnostic Imaging Report Social History [...] you? Never 05/02/2022 How often does anyone, inclsumit gutierrez family, [...] Telephone Encounter - Dane Rick MD - 09/28/2022 1742 EDT See result note documented in this encounter Plan of Treatment Upcoming Encounters Date Type Department Care Team (Late st Contact Info) Description 05/19/2024 11:00 EST Office Visit [facility] Family Medicine [facility] [address] [facility], [address] [place] [address] Dane Rick MD [address] [facility] [address] [place] [address] Scheduled Referrals Name Type Priority Associated Diagnoses Order Schedule AMB CONS/FOLLOW UP ORTHOPEDICS - [facility] Outpatient Referral Routine/Next Available Closed fracture of shoulder, unspecified laterality, with routine healing, subsequent encounter Expected: 10/05/2022 (Approximate), Expires: 09/29/2023 AMB CONS/FOLLOW UP PHYSICAL THERAPY - [facility] Outpatient Referral Routine/Next Available Closed fracture of shoulder, unspecified laterality, with routine healing, subsequent encounter Expected: 10/05/2022 (Approximate), Expires: 09/29/2023 documented as of this encounter Visit Diagnoses Diagnosis Closed fracture of shoulder, unspecified laterality, with routine healing, subsequent encounter- Primary documented in this encounter Care Teams Craft Artist Relationship Specialty Start Date End Date Dane Rick MD [address] [place] [phone] PCP - General Family Medicine - Primary Care 08/09/22 Vicky Chamberlain, [facility] Commercial Trailer Truck Driver 06/12/22 01/22/24 documented as of this encounter
--- OUTSIDE RECORDS SUMMARY | 2024-02-08 01:10 | XMS_ITS | Encounter Summary ---
Author Organization [facility] Address [address] [place] [address] Care Team Providers Care Plant Tour Guide Name Role Phone Vicky Chamberlain Unavailable [phone] Dane Rick MD Primary Care Provider [phone] Encounter Details Date Type Department Care Team ([facility] st Contact Info) Description 08/22/2022 Orders Only [facility] Radiology - Main [place] [address] [place], [place] [phone] Julia Lay MD [address] [place] [phone] Social History Tobacco Use Types Packs/Day Years [...] Info) Description 05/19/2024 11:00 EST Office Visit [place] [address] Naty Garcia, [facility] 2 [place] [address] Dane Rick MD [address] [place] [phone] documented as of this encounter Visit Diagnoses Not on filedocumented in this encounter Care Teams Plant Tour Guide Relationship Specialty Start Date End Date Dane Rick MD [address] [place] [phone] PCP - General Family Medicine - Primary Care 08/09/22 Vicky Chamberlain, [facility] Community Recreation Programmer 06/12/22 01/22/24 documented as of this encounter
--- OUTSIDE RECORDS SUMMARY | 2024-02-08 01:10 | XMS_ITS | Encounter Summary ---
Author Organization [facility] Address [address] [place] [address] Care Team Providers Care Air Conditioning Technician Name Role Phone Otis Gee MD Primary Care Provider Joseph ChamberlainVicky LATRICE Unavailable Dane Rick MD Primary Care Provider [phone] Leticia Lieberman Unavailable Mendoza Guzmán MD Unavailable [phone] Reason for Visit * Reason Onset Date Comments Results 07/28/2022 Encounter Details Date Type Department Care Team (Late st Contact Info) Description 07/28/2022 Telephone [facility] Adult Neurology - [facility] [address] [place] [address] Janell Jj, STEREOTYPE MOLDER [address] [place] [address] [address] [place] [phone] Results Social History Tobacco Use Types Packs/Day [...] encounter Miscellaneous Notes * Telephone Encounter - Ching Barnett - 07/28/2022 1514 EDT Patient called into [facility] and stated she got back the results from the CT scan that was done today and ordered by Janell Jj. Patient stated she is not able to understand what the results mean, isvery worried and would like to make sure she is ok to go on her upcoming trip to [place]. Patient stated she would prefer a call back before the end of the day as she is leaving tomorrow. Patient can be reached at [phone]. * Telephone Encounter - Vish Garza - 07/28/2022 1509 EDT Pt is travelling across the country tomorrow morning and would like to have a call before she decides if it is ok to travel. * Telephone Encounter - Vish Garza - 07/28/2022 1506 EDT Pt calls in to say she would like to go over the results of today's CT scan ordered by Анна. Pt states she got something in the mychart and the pt does not understand the results and is very anxious about the results, please call pt. documented in this encounter Plan of Treatment Upcoming Encounters Date Type Department Care Team (Late st Contact Info) Description 05/19/2024 11:00 EST Office Visit [facility] Family Medicine [facility] [address] [facility], [place] [place] [address] Dane Rick MD [address] [facility] [place] [address] [place] [address] documented as of this encounter Visit Diagnoses Not on filedocumented in this encounter Additional Health Concerns Infection Onset Date Last Indicated Resolved Time R/O COVID-19 08/13/2023 08/13/2023 08/13/2023 20:0 7 EDT documented as of this encounter Care Teams Air Conditioning Technician Relationship Specialty Start Date End Date Otis Gee MD PCP - General 01/14/10 08/08/22 Dane Rick MD [address] [place] [address] [address] [place] [phone] PCP - General Family Medicine - Primary Care 08/09/22 Vicky Chamberlain, [facility] Dog Behaviorist 06/12/22 01/22/24 Leticia Lieberman [address] [place] [phone] General Surgery 04/03/23 Mendoza Guzmán MD [address] [place] [address] [address] [place] [phone] Otolaryngology 04/03/23 documented as of this encounter
--- OUTSIDE RECORDS SUMMARY | 2024-02-08 01:10 | XMS_ITS | Encounter Summary ---
Author Organization [facility] Address [address] [place] [address] Care Team Providers Care Outpatient Services Director Name Role Phone Vicky Chamberlain Unavailable [phone] Dane Rick MD Primary Care Provider [phone] Reason for Visit * Reason Comments Follow-up * Consult (Routine/Next Available) - Specialty Report Received Specialty Diagnoses / Procedures Referred By Franky ferreira Referred To Contact Orthopedic Surgery Diagnoses Closed fracture of shoulder, unspecified laterality, with routine healing, subsequent encounter Dane Rick MD [address] [place] [address] [address] [place] [address] [facility] [address] [place] [address] Referral ID Status Reason Start Date Expiration Date Visits Requested Visits Authorized [id number] Specialty Report Received Specialty Services Required 09/28/2022 1 1 Encounter Details Date Type Department Care Team ([facility] st Contact Info) Description 11/02/2022 10:30 EDT Office Visit [facility] [address] [place] [address] Francoise Melchor NP [address] [facility] [address] [place], [place] [phone] Osteoarthritis of left knee, unspecified osteoarthritis type (Primary Dx) Social History Tobacco Use Types [...] as of this encounter Progress Notes * Francoise Melchor, POOL FINISHER - 11/02/2022 1030 EDTAssociated Order(s): Large Joint Injection/Arthrocentesis: L knee Post-Procedure Diagnose(s): Osteoarthritis of left knee, unspecified osteoarthritis type CHIEF COMPLAINT: Left knee pain; f/u left rotator cuff tendinnitis SUBJECTIVE: Kenyatta Vizcaino is a 81 y.o. female presenting today for follow up of his left shoulder after subacromial steroid injection on 10/12 and a new issue of left knee pain. Shoulder is feeling better after the injection. Still has some points in her neck and top of shoulder that are tenderbut overall symptoms have improved. Left knee pain is chronic, no injury. She has had injections in the knee many years ago which helped some with pain. Does not require pain medication. Pain radiates down her meyer. ROS: see HPI above The past medical, family and social history have been reviewed in the patient chart. I spent time preparing in advance of the visit today, which included obtaining and reviewing prior history and notes from the primary care provider and/or referring providers, as well as reviewing any relevant prior imaging and tests, which I also independently interpreted. Past Medical History: Diagnosis Date ??? Abnormal stress test reversible anteroseptal defect, with equivocal ST changes ??? Breathlessness on exertion ??? Chest pressure on exertion ??? Diverticulosis ??? HLD (hyperlipidemia) ??? HLD (hyperlipidemia) ??? Hypertension ??? ABDOULAYE (obstructive sleep apnea) ??? Post concussive syndrome poor memory ??? Seizure disorder (HCC-CMS) (HCC) ??? Trigeminal neuralgia Social History Tobacco Use ??? Smoking status: Never ??? Smokeless tobacco: Never Substance Use Topics ??? Alcohol use: Yes Comment: occasionally Past Surgical History: Procedure Laterality Date ??? BLEPHAROPLASTY 01/15/08 bilateral brow lift ??? ECTROPION REPAIR 01/09/08 bilateral lower lids ??? ROTATOR CUFF REPAIR Right 01/14/2019 Allergies Allergen Reactions ??? Amoxicillin-Pot Clavulanate Rash ??? Atorvastatin Muscle Aches ??? Flagyl [Metronidazole] ??? Metoprolol Other (See Comments) heart failure? Penicillins ??? Zithromax [Azithromycin] Medications Prior to Today's Visit Medication Sig ??? aspirin 81 mg EC tablet Take 1 Tablet by mouth every 48 hours. ??? furosemide (LASIX) 20 mg tablet TAKE 2 TABLETS BY MOUTH ONCE DAILY IN THE MORNING AND 1 IN THE AFTERNOON ??? hydrOXYzine (ATARAX) 25 mg tablet Take 1 Tablet by mouth 3 times daily as needed for Itching. (Patient not taking: Reported on 10/12/2022) ??? losartan (COZAAR) 100 mg tablet Take 1 Tablet by mouth daily. No facility-administered medications prior to visit. OBJECTIVE: There were no vitals taken for this visit. On physical exam, the patient is found to be a pleasant and cooperative female who appears to be alert and oriented x 3. She is well-developed, well-nourished and in no significant distress. Breathing is unlabored. Skin is warm pink and dry to inspection and palpation. Exam of the left knee revealsan osteoarthritic deformity, mild swelling, no overlying skin changes. 5/5 strength quads, hamstrings, abductors, adductors and hip flexors. Tender through medial joint line >lateral joint line. Slightly tender through patella and quad tendon. +patellar grind. ROM remains full from No 0->110 degrees with discomfort at max flexion. No pain or laxity with ligamentous exam. 5/5 ankle dorsiflexi on/plantarflexion. Slightly tender over length of tibia. Nontender through calf. Radiographs of the left knee were obtained today and independently reviewed by me. Severe tricompartmental osteoarthritis with medial joint line narrowing. ASSESSMENT: left knee osteoarthritis; left rotator cuff tendinitis, improved PLAN: I counseled and educated the patient today about her knee osteoarthritis and we reviewed treatment options. I suspect her meyer pain is radiating from the knee. Offered a therapeutic intraarticular steroid and she accepted. After reviewing risks and benefits of an injection including variability of results, verbal consent was obtained to proceed today. A timeout was performed. The left knee was prepped in the standard sterile fashion. After final verication of the correct site, 80 mg of Depo-Medrol along with an anesthetic was injected into the joint without difficulty. No medication waswasted. She tolerated the procedure well. Aftercare for the injection was discussed and all question answered. Follow up if symptoms do not improve. Viscosupplementation may be an option. All questions answered. Procedure: Large Joint Injection/Arthrocentesis: L knee on 11/02/2022 10:30 Medications: 80 mg methylPREDNISolone ACETATE 80 mg/mL; 5 mL lidocaine (PF) 10 mg/mL (1 %) Outcome: tolerated well, no immediate complications This note was prepared using voice recognition software and the EMR. There may be inadvertent errors and omissions. Francoise Melchor APRN 11/02/2022 documented in this encounter Plan of Treatment Upcoming Encounters Date Type Department Care Team (Late st Contact Info) Description 05/19/2024 11:00 EST Office Visit [facility] Family Medicine [address], [facility] [address] [place] [address] Dane Rick MD [address] [place] [address] [place] [phone] documented as of this encounter Procedures Procedure Name Priority Date/Time Associated Diagnosis Comments XR KNEE LEFT 4 OR MORE VIEWS Routine 11/02/2022 10:47 EDT Osteoarthritis of left knee, unspecified osteoarthritis type LARGE JOINT INJECTION/ARTHROCE NTESIS Routine 11/02/2022 10:30 EDT Osteoarthritis of left knee, unspecified osteoarthritis type documented in this encounter Results * XR KNEE LEFT 4 OR MORE VIEWS (11/02/2022 10:47 EDT) Anatomical Region Laterality Modality Lower Extremities Left Computed Radio graphy 11/02/2022 10:3 6 EDT Impressions 11/02/2022 16:48 EDT Moderate to severe degenerative changes of the medial joint compartment of the knee. THIS DOCUMENT HAS BEEN ELECTRONICALLY SIGNED BY JOSE PIEDRA MD FOR ANY QUESTIONS OR CONCERNS REGARDING THIS REPORT PLEASE CALL [facility] AT [phone] [facility] 11/02/2022 16:48 EDT PROCEDURE INFORMATION: Exam: XR Left Knee Exam date: 11/02/2022 10:36 AM Age: 81 years old Clinical indication: Unilateral primary osteoarthritis, left knee; Pain; Additional info: Left knee osteoarthritis TECHNIQUE: Imaging protocol: Radiologic exam of the left knee. Views: 4 or more views. COMPARISON: CR [id number] 04/21/2020 3:58 PM FINDINGS: Bones/joints: There is diffuse osteopenia. No acute fracture. ?? No dislocation. ??There is a small amount of suprapatellar joint fluid. Moderate to severe degenerative changes of the medial joint compartment of the knee. ??There is mild chondrocalcinosis. Later the spleen somehow be back to my splenic size Soft tissues: There is mild soft tissue swelling about the knee. There is possible soft tissue swelling about the knee. Vasculature: Mild vascular calcifications are noted. Procedure Note Jose Piedra MD - 11/02/2022 PROCEDURE INFORMATION: Exam: XR Left Knee Exam date: 11/02/2022 10:36 AM Age: 81 years old Clinical indication: Unilateral primary osteoarthritis, left knee; Pain; Additional info: Left knee osteoarthritis TECHNIQUE: Imaging protocol: Radiologic exam of the left knee. Views: 4 or more views. COMPARISON: CR [id number] 04/21/2020 3:58 PM FINDINGS: Bones/joints: There is diffuse osteopenia. No acute fracture. No dislocation. There is a small amount of suprapatellar joint fluid. Moderate to severe degenerative changes of the medial joint compartment of the knee. There is mild chondrocalcinosis. Later the spleen somehow be back to my splenic size Soft tissues: There is mild soft tissue swelling about the knee. There is possible soft tissue swelling about the knee. Vasculature: Mild vascular calcifications are noted. IMPRESSION Moderate to severe degenerative changes of the medial joint compartment of the knee. THIS DOCUMENT HAS BEEN ELECTRONICALLY SIGNED BY JOSE PIEDRA MD FOR ANY QUESTIONS OR CONCERNS REGARDING THIS REPORT PLEASE CALL [facility] [phone] Francoise Melchor NP IMG DIAGNOSTIC IMAGI NG ORDERABLES * SC ARTHROCENTESIS ASPIR&/INJ MAJOR JT/BURSA W/O US (11/02/2022 10:30 EDT) Narrative [facility] - 11/02/2022 10:30 EDT Francoise Melchor NP ? 11/02/2022 12:18 Large Joint Injection/Arthrocentesis: L knee on 11/02/2022 10:30 Medications: 80 mg methylPREDNISolone ACETATE 80 mg/mL; 5 mL lidocaine (PF) 10 mg/mL (1 %) Outcome: tolerated well, no immediate complications Francoise Melchor NP PROCEDURE/MINOR SURG ICAL ORDERABLES [facility] documented in this encounter Visit Diagnoses Diagnosis Osteoarthritis of left knee, unspecified osteoarthritis type- Primary documented in this encounter Administered Medications Inactive Administered Medications - up to 3 most recent administrations Medication Order MAR Action Action Date Dose Rate Site lidocaine (PF) 10 mg/mL (1 %) injection 5 mL 5 mL, other, Once PRN Procedure, 1 dose, Starting on Magdalena 11/02/22 at 1030, Until [place] 11/02/22 at 1030, Routine Given 11/02/2022 10:30 EDT 5 mL methylPREDNISolone ACETATE (DEPO-MEDROL) injection 80 mg 80 mg, intra-articular, Once PRN Procedure, 1 dose, Starting on Magdalena 11/02/22 at 1030, Until [place] 11/02/22 at 1030, Routine Given 11/02/2022 10:30 EDT 80 mg documented in this encounter Care Teams Outpatient Services Director Relationship Specialty Start Date End Date Dane Rick MD [address] [place] [phone] PCP - General Family Medicine - Primary Care 08/09/22 Vicky Chamberlain, FILTRATION OPERATOR State Director 06/12/22 01/22/24 documented as of this encounter
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
--- OUTSIDE RECORDS SUMMARY | 2024-02-08 01:10 | XMS_ITS | Encounter Summary ---
Author Organization [facility] Address [address] [place] [address] Care Team Providers Care Outreach Educator Name Role Phone BulmaroVicky LATRICE Unavailable [phone] Dane Rick MD Primary Care Provider [phone] Encounter Details Date Type Department Care Team ([facility] st Contact Info) Description 10/26/2022 [facility] - [facility] [address] [id number] Vicky Chamberlain LICSW [address] [facility] [address] [place] [address] Social History Tobacco Use Types [...] Progress Notes * Bulmaro, LATRICE Perry - 10/26/2022 0904 EDT Outgoing call to Kenyatta to follow up on previous outreach. Left voice message documented in this encounter Plan of Treatment Upcoming Encounters Date Type Department Care Team (Late st Contact Info) Description 05/19/2024 11:00 EST Office Visit [facility] Family Medicine [address], [facility] [address] [place] [address] Dane Rick MD [address] [place] [address] 2 [place] [address] documented as of this encounter Visit Diagnoses Not on filedocumented in this encounter Care Teams Outreach Educator Relationship Specialty Start Date End Date Dane Rick MD [address] [place] [address] [address] [place] [address] PCP - General Family Medicine - Primary Care 08/09/22 Vicky Chamberlain LICSW Clinical Safety Manager 06/12/22 01/22/24 documented as of this encounter
--- OUTSIDE RECORDS SUMMARY | 2024-02-08 01:10 | XMS_ITS | Encounter Summary ---
Author Organization [facility] Address [address] [place] [address] Care Team Providers Care Fire Equipment Inspector Name Role Phone Vicky Chamberlain Unavailable [phone] Dane Rick MD Primary Care Provider [phone] Reason for Referral * Radiology Services (Routine/Next Available) - Specialty Report Received Specialty Diagnoses / Procedures [facility] Referred To Contact Diagnoses Left shoulder pain, unspecified chronicity Procedures XR SHOULDER LEFT 2 OR MORE VIEWS Dane Rick MD [address] [place] [address] [address] [place] [address] [facility] Referral ID Status Reason Start Date Expiration Date V isits Requested Visits Authorized [id number] Specialty Report Received 09/19/2022 1 1 Reason for Visit * Reason Comments Constipation Encounter Details Date Type Department Care Team (Latest Contact Info) Description 09/19/2022 10:00 EDT Office Visit [facility] Family Medicine [facility] [address] [place] [address] Dane Rick MD [address] [facility] [address] [place] [address] Hypercalcemia (Primary Dx); Left shoulder pain, unspecified chronicity; Depression with anxiety; Essential (primary) hypertension; Chronic pain of left knee Social History [...] Never 05/02/2022 How often does anyone, inclu brenda family, insult, scream, curse or threaten to hurt you? Never 05/02/2022 Sex and Gender Information Value Date Recorded Sex Assigned at Not on file Gender Identity Female 02/28/2019 7:38 EST Sexual Orientation Not on file documented as of this encounter Last Filed Vital Signs Vital Sign Reading Time Taken Comments Blood Pressure 136/60 09/19/2022 1002 EDT Pulse 72 09/19/2022 1002 EDT Temperature 36.6 ??C (97.8 ??F) 09/19/2022 1002 EDT Respiratory Rate 16 09/19/2022 1002 EDT Oxygen Saturation - - Inhaled Oxygen Concentration - - Weight - - Height 152.4 cm (5') 09/19/2022 1002 EDT Body Mass Index - - documented [...] Dispensed Refills Start Date End Da te aspirin 81 mg EC tablet Take 1 Tablet by mouth every 48 hours. 09/19/2022 losartan (COZAAR) 100 mg tablet Take 1 Tablet by mouth daily. 90 Tablet 1 09/19/2022 12/26/2022 furosemide (LASIX) 20 mg tablet TAKE 2 TABLETS BY MOUTH ONCE DAILY IN THE MORNING AND 1 IN THE AFTERNOON 270 Tablet 09/19/2022 04/03/2023 hydrOXYzine (ATARAX) 25 mg tablet Take 1 Tablet by mouth 3 times daily as needed for Itching. 60 Tablet 09/19/2022 01/29/2024 documented in this encounter Progress Notes * Dane Rick MD - 09/19/2022 1000 EDT Patient Name: Kenyatta Vizcaino Age: 81 y.o. Date: 09/19/22 ASSESSMENT/PLAN: Problem List Items Addressed This Visit Cardiac/Vasculature Essential (primary) hypertension (Chronic) Well-controlled on current meds, continue losartan Genitourinary/Reproductive Hypercalcemia - Primary (Chronic) Noted on last CMP. Check labs today Relevant Orders CALCIUM, IONIZED PTH INTACT COMPREHENSIVE METABOLIC PANEL (CMP) Psychiatric Depression with anxiety (Chronic) Discussed risks of Ativan, shared decision to trial Atarax Musculoskeletal Left shoulder pain (Chronic) Left shoulder and neck pain, possibly after fall. Poor historian. Exam unremarkable. X-rays ordered. PT ordered placed Relevant Orders XR SHOULDER LEFT 2 OR MORE VIEWS Chronic pain of left knee (Chronic) X-rays with moderate osteoarthritis. Responded well to injections in the past. Recommended follow-up with Ortho for this. Also consider physical therapy. For any new medications prescribed today, patient was educated about indications for the medication, how to take the medication and potential side effects of the medications. Counseling given: Not Answered SUBJECTIVE Kenyatta Vizcaino is a 81 y.o. female here for shoulder pain She stopped wellbutrin due to losing strength Uses ativan for anxiety, discussed risks, will try atarax Hypercalcemia: Asymptomatic, not on thiazide diuretic or vitamin D supplement. Noted on previous labs, no follow-up labs ordered Neck Pain Duration: month ago, related to fall Location: left side Severity: Timing: raising her arm makes it worse Medications tried: tylenol Aggrevating factors: Alleviating factors: heat and ice Associated symptoms: great ROM Knee Pain: moderate arthritis on left, feels weakness and afraid to fall, responded well to knee injections in the past Review of Systems Constitutional: Negative for chills and fever. Respiratory: Negative for shortness of breath and wheezing. Cardiovascular: Negative for chest pain and palpitations. ALLERGIES/INTOLERANCES Allergies Allergen Reactions ??? Amoxicillin-Pot Clavulanate Rash ??? Atorvastatin Muscle Aches ??? Flagyl [Metronidazole] ??? Metoprolol Other (See Comments) heart failure? Penicillins ??? Zithromax [Azithromycin] OBJECTIVE Vitals: 09/19/22 1002 BP: 136/60 BP Cuff Location: Right arm BP Patient Position: Sitting BP Cuff Sizes: Adult, regular Pulse: 72 Resp: 16 Temp: 36.6 ??C (97.8 ??F) TempSrc: Oral Height: 152.4 cm (60) General appearance - alert, well appearing Respiratory- no increased work of breathing, clear to auscultation, no wheezes, rales or rhonchi Heart - normal rate, regular rhythm, no murmurs, rubs, clicks or gallops, no pedal edema Psych: normal judgement and insight, mood and affect normal MSK: Left neck musculature tender to palpation, no masses or defects, normal range of motion, stable joint without laxity, strength appropriate with normal muscle tone MSK: Left medial knee joint coordinator of online programs to palpation, no masses or defects, normal range of motion,stable joint without laxity, strength appropriate with normal muscle tone Dane Rick MD documented in this encounter Miscellaneous Notes * Assessment & Plan Note - Dane Rick MD - 09/19/2022 1106 EDTAssociated Problem(s): Left shoulder pain Left shoulder and neck pain, possibly after fall. Poor historian. Exam unremarkable. X-rays ordered. PT ordered placed * Assessment & Plan Note - Dane Rick MD - 09/19/2022 1104 EDTAssociated Problem(s): Chronic pain of left knee X-rays with moderate osteoarthritis. Responded well to injections in the past. Recommended follow-up with Ortho for this. Also consider physical therapy. * Assessment & Plan Note - Dane Rick MD - 09/19/2022 1102 EDTAssociated Problem(s): Hypercalcemia Noted on last CMP. Check labs today * Assessment & Plan Note - Dane Rick MD - 09/19/2022 1101 EDTAssociated Problem(s): Essential (primary) hypertension Well-controlled on current meds, continue losartan * Assessment & Plan Note - Dane Rick MD - 09/19/2022 1101 EDTAssociated Problem(s): Depression with anxiety Discussed risks of Ativan, shared decision to trial Atarax documented in this encounter Plan of Treatment Upcoming Encounters Date Type Department Care Team (Late st Contact Info) Description 05/19/2024 11:00 EST Office Visit [facility] Family [facility] [address] [facility], [address] [place], [place] [id number] Dane Rick MD [address] [facility] [address] [place] [address] documented as of this encounter Procedures Procedure Name Priority Date/Time Associated Diagnosis Comments COMPREHENSIVE METABOLIC PANEL (CMP) Routine 09/25/2022 13:00 EDT Hypercalcemia documented in this encounter Results * XR SHOULDER LEFT 2 OR MORE VIEWS (09/28/2022 13:52 EDT) Anatomical Region Laterality Modality Left Computed Radiogr aphy 09/28/2022 14:2 2 EDT Impressions 09/28/2022 14:22 EDT 1. ??Possible age-indeterminate Hill-Sachs impaction fracture. Please correlate for prior anterior glenohumeral dislocation. Please see discussion above. 2. ??Probable rotator cuff calcific tendinitis. [id number] Narrative 09/28/2022 14:22 EDT XR SHOULDER LEFT [...] above. 2. Probable rotator cuff calcific tendinitis. [id number] Dane Rick MD IMG DIAGNOSTIC IMAGI NG ORDERABLES * CALCIUM, IONIZED (09/25/2022 13:01 EDT) Calcium, Ionized 1.32 1.14 - 1.35 mmol/L 09/25/2022 13:12 EDT [facility]IR[facility]ORY THERAPY Blood VENOUS BLOOD / Unknown Venipuncture / Unknown 09/25/2022 13:01 EDT 09/25/2022 13:02 EDT Dane Rick MD CHEMISTRY & BLOOD GA S ORDERABLES [facility] RESPIRATORY THERAPY * (ABNORMAL) COMPREHENSIVE METABOLIC PANEL (CMP) (09/25/2022 13:00 EDT) Sodium 137 136 - 145 mmol/L 09/25/2022 14:43 EDT [facility] Potassium 4.9 3.5 - 5.0 mmol/L 09/25/2022 14:43 EDT [facility] Chloride 98 96 - 110 mmol/L 09/25/2022 14:43 [facility] CO2 Total 31 22 - 32 mmol/L 09/25/2022 14:43 [facility] Glucose 82 70 - 100 mg/dl 09/25/2022 14:43 [facility] BUN 12 10 - 26 mg/dL 09/25/2022 14:43 [facility] Creatinine 0.82 0.52 - 1.04 mg/dL 09/25/2022 14:43 [facility] eGFR 72 >60 mL/min/1.7 3m2 09/25/2022 14:43 [facility] Total Protein 7.2 6.3 - 8.2 g/dL 09/25/2022 14:43 [facility] Albumin 4.2 3.4 - 4.9 g/dL 09/25/2022 14:43 [facility] Alkaline Phosphatase 139(H) 38 - 126 U/L 09/25/2022 14:43 [facility] AST 23 15 - 46 U/L 09/25/2022 14:43 [facility] ALT 29 <35 U/L 09/25/2022 14:43 [facility] Bilirubin, Total 1.0 <1.4 mg/dL 09/26/19 14:43 [facility] Calcium 10.9(H) 8.5 - 10.5 mg/dL 09/25/2022 14:43 [facility] Albumin/Globulin Ratio 1.4 1.0 - 2.5 09/25/2022 14:43 [facility] Anion Gap 8 5 - 14 mmol/L 09/25/2022 14:43 [facility] Blood VENOUS BLOOD / Unknown Venipuncture / Unknown 09/25/2022 13:00 EDT 09/25/2022 13:56 EDT Dane Rick MD CHEMISTRY & BLOOD GA S ORDERABLES [facility] [address] [place] [address] * (ABNORMAL) PTH INTACT (09/25/2022 13:00 EDT) Intact PTH 208(H) 19 - 88 pg/mL 09/25/2022 21:33 EDT [facility] Blood VENOUS BLOOD / Unknown Venipuncture / Unknown 09/25/2022 13:00 EDT 09/25/2022 13:56 EDT Dane Rick MD CHEMISTRY & BLOOD GA S ORDERABLES [facility] [address] [place] [address] documented in this encounter Visit Diagnoses Diagnosis Hypercalcemia- Primary Left shoulder pain, unspecified chronicity Depression with anxiety Dysthymic disorder Essential (primary) hypertension Unspecified essential hypertension Chronic pain of left knee Pain in joint, lower leg Left shoulder pain, unspecified chronicity documented in this encounter Discontinued Medications Medication Sig Discontinue Reason Start Date End Da te buPROPion (WELLBUTRIN SR) 150 mg SR tablet Take 1 tablet by mouth twice daily Patient Stopped Taking 09/01/2022 09/19/2022 LORazepam (ATIVAN) 0.5 mg tablet 3 Times a Day as Needed as needed for ANXIETY Alternate therapy 09/19/2022 losartan (COZAAR) 100 mg tablet Take 100 mg by mouth daily. Reorder 05/16/2022 09/19/2022 aspirin 81 mg EC tablet Take 1 Tablet by mouth every 48 hours. Reorder 06/29/2022 09/19/2022 furosemide (LASIX) 20 mg tablet TAKE 2 TABLETS BY MOUTH ONCE DAILY IN THE MORNING AND 1 IN THE AFTERNOON Reorder 09/01/2022 09/19/2022 documented as of this encounter Care Teams Fire Equipment Inspector Relationship Specialty Start Date End Date Dane Rick MD [address] [place] [phone] PCP - General Family Medicine - Primary Care 08/09/22 Vicky Chamberlain, DISTRICT SALES REPRESENTATIVE Pot Washer 06/12/22 01/22/24 documented as of this encounter
--- OUTSIDE RECORDS SUMMARY | 2024-02-08 01:10 | XMS_ITS | Encounter Summary ---
Author Organization [facility] Address [address] [place] [address] Care Team Providers Care Chief Medical Director Name Role Phone Vicky Chamberlain Unavailable [phone] Dane Rick MD Primary Care Provider [phone] Reason for Visit * Reason Onset Date Comments Eye Problem 10/20/2022 Depression 10/20/2022 Stress Reaction 10/20/2022 Encounter Details Date Type Department Care Team ([facility] Contact Info) Description 10/20/2022 Telephone [facility] Family Medicine [address] [place] [address] Dane Rick MD [address] [facility] [address] [place] [address] Eye Problem; Depression; Stress Reaction Social History Tobacco Use Types Packs/Day Years [...] Telephone Encounter - Elisabet Luis RN - 10/20/2022 1402 EDT Fatigue cant do anything. Is not herself. Feels weak. Headache. Chest tightness on and offf. Naus. Fuzzy eye sight. Sent to ER for eval * Telephone Encounter - Adriano Marta - 10/20/2022 1246 EDT Kenyatta reports her about 7 months ago. She reports all over body tightness head & chest area. Vision changes where she is not comfortable driving she said. This started 2 wk's ago, wondering if possibly stroke or stress related? She first thought it was depression related due to her passing but now thinks something else is going on. Please advise. documented in this encounter Plan of Treatment Upcoming Encounters Date Type Department Care Team (Late st Contact Info) Description 05/19/2024 11:00 EST Office Visit [facility] Family Medicine [facility] [address] [facility], [facility] [address] [place] [address] Dane Rick MD [address] [place] [phone] documented as of this encounter Visit Diagnoses Not on filedocumented in this encounter Care Teams Chief Medical Director Relationship Specialty Start Date End Date Dane Rick MD [address] [place] [phone] PCP - General Family Medicine - Primary Care 08/09/22 Vicky Chamberlain LICSW [place] 06/12/22 01/22/24 documented as of this encounter
--- OUTSIDE RECORDS SUMMARY | 2024-02-08 01:10 | XMS_ITS | Encounter Summary ---
Author Organization [facility] Address [address] [place] [address] Care Team Providers Care Beehive Kiln Charcoal Burner Name Role Phone BulmaroVikcy LATRICE Unavailable [phone] Dane Rick MD Primary Care Provider [phone] Encounter Details Date Type Department Care Team ([facility] st Contact Info) Description 09/06/2022 Patient Outreach [facility] Family Medicine - [facility] [address] [id number] Vicky Chamberlain LICSW [address] [facility] [address] [place] [address] Social History Tobacco Use Types [...] Record ed How often does anyone, elaina gutierrze family, hit, punch or physically hurt you? [...] this encounter Progress Notes * Vicky Chamberlain, [facility] - 09/06/2022 8847 EDT [facility] Care Management Follow Up Veterinary Radiologist followed up with Kenyatta by phone for dental. TOPIC OF CONVERSATION: ??? Reviewed assessment and plan from previous visit with patient. ??? Engaged patient in conversation related to positive behavior change, self- management, goal setting and action planning using motivational interviewing and active listening. - [facility] has continued to attempt outreach to [employer] through phone calls and emails, still on return information on funding. - Relayed information to Kenyatta - Kenyatta voiced understanding Today Kenyatta was heading out the door to the home. We will reconnect in one month, minimum. Prioritized Patient Identified Goals: 1. Kenyatta will continue to follow up with care management as needed for support with dental and senior care care planing. Achievement towards goals: In progress Plan: Next Veterinary RadiologistRegulatory Consultant: 10/06/2022 LATRICE ENCISO 09/06/2022 14:58 documented in this encounter Plan of Treatment Upcoming Encounters Date Type Department Care Team (Late st Contact Info) Description 05/19/2024 11:00 EST Office Visit [facility] [address] [facility], [facility] [address] [place], [place] [id number] Dane Rick MD [address] [place] [address] [address] [place] [address] documented as of this encounter Visit Diagnoses Not on filedocumented in this encounter Care Teams Beehive Kiln Charcoal Burner Relationship Specialty Start Date End Date Dane Rick MD [address] [place] [address] [address] [place] [id number] PCP - General Family Medicine - Primary Care 08/09/22 Vicky Chamberlain LICSW Veterinary Radiologist 06/12/22 01/22/24 documented as of this encounter
--- OUTSIDE RECORDS SUMMARY | 2024-02-08 01:10 | XMS_ITS | Encounter Summary ---
Author Organization [facility] Address [address] [place] [address] Care Team Providers Care Gravity Flow Irrigator Name Role Phone Vikcy Chamberlain Unavailable [phone] Dane Rick MD Primary Care Provider [phone] Reason for Visit * Reason Onset Date Comments Results 09/26/2022 Encounter Details Date Type Department Care Team ([facility] st Contact Info) Description 09/26/2022 Telephone [facility] - [facility] Family Medicine [address], [place] [address] [place] [address] Dane Rick MD [address] [facility] [address] [place] [address] Results Social History Tobacco Use [...] Telephone Encounter - Bre Day RN - 09/26/2022 5067 EDT Pt notified per JI note and verbalized understanding. * Telephone Encounter - Nupur Benson RN - 09/26/2022 6198 EDT ----- Message from Dane Rick MD sent at 09/26/2022 13:17 EDT ----- Please call patient. Her Vit D was low and likely the cause of her lab abnormality. I recommend shetake 2000 IU daily documented in this encounter Plan of Treatment Upcoming Encounters Date Type Department Care Team (Late st Contact Info) Description 05/19/2024 11:00 EST Office Visit [facility] Family Medicine [address], [facility] [address] [place], [place] [id number] Dane Rick MD [address] [place] [phone] documented as of this encounter Visit Diagnoses Not on filedocumented in this encounter Care Teams Gravity Flow Irrigator Relationship Specialty Start Date End Date Dane Rick MD [address] [place] [phone] PCP - General Family Medicine - Primary Care 08/09/22 Vicky Chamberlain [facility] Data Software Engineer 06/12/22 01/22/24 documented as of this encounter
--- OUTSIDE RECORDS SUMMARY | 2024-02-08 01:10 | XMS_ITS | Encounter Summary ---
Author Organization [facility] Address [address] [place] [address] Care Team Providers Care Sheep Rancher Name Role Phone Vicky ChamberlainSW Unavailable [phone] Dane Rick MD Primary Care Provider Reason for Visit * Reason Comments Weakness Weakness and tired x 2-3 days with fuzzy vision and mouth tightness. Pt feels throat constriction or a sensation of wanting to vomit. Pt feels off. Encounter Details Date Type Department Care Team (Late st Contact Info) Description 10/20/2022 15:09 EDT - 10/20/2022 21:17 EDT Emergency [facility] Emergency Department [address] [place] [address] Ashlee Tilley, DO [address] [place] [address] Other fatigue (Primary Dx) Discharge Disposition: Home [...] 14:35 EDT documented as of this encounter Last Filed Vital Signs Vital Sign Reading Time Taken Comments Blood Pressure 162/75 10/20/20222000 EDT Pulse 57 10/20/20222000 EDT Temperature 36.6 ??C (97.9 ??F) 10/20/20222000 EDT Respiratory Rate 16 10/20/20222000 EDT Oxygen Saturation 97% 10/20/20222000 EDT Inhaled Oxygen Concentration - - Weight 67.1 kg (148 lb) 10/20/2022 1434 EDT Height - - Body Mass Index 28.9 09/19/2022 1002 EDT documented in this encounter Functional Status [...] this encounter Discharge Instructions * Discharge Instructions* Ashlee Tilley DO - 10/20/2022 20:39 EDT Your EKG was reassuring. Your blood work shows a mild elevation of your calcium but is otherwise reassuring. Your urine was negative for infection. The CTs of your head and your neck are stable from July. Your tick panel is still pending and we will call you if it comes back positive. Please follow-up with your primary care doctor in 2 days. Your blood pressure was also high during your visit to the emergency room today sometimes this can be due to stress or anxiety from being in the emergency room. Please make sure that you continue to take your losartan as directed. When you follow-up with your primary care doctor please make sure they recheck your blood pressure and if it is still elevated you might need to have an adjustment to your blood pressure medication. Please return to the emergency room if you have worsening chest pain, difficulty breathing, your heart feels like it is going to beat out of your chest, you have the worst headache of your life, changes to your vision, or any other new or concerning symptoms. * Attachments The following attachments cannot be sent through Care Everywhere. * Fatigue (Lao) documented in this encounter Medications at Time [...] Means Destination Comment s Home or Self Senior Care documented in this encounter ED Notes * Ashlee Tilley, - 10/20/2022 1524 EDT Emergency Department Visit Assessment and ED Course Kenyatta Lopez is a 81 y.o. female with a history of depression, hypertension, traumatic brain injury, CVA, atherosclerotic cardiovascular disease, obstructive sleep apnea, and congestive heartfailure who presents to the ED for weakness, fatigue, decreased appetite, intermittent blurred vision, and intermittent chest tightness. EKG shows sinus bradycardia rate of 55. No ST elevation or depressions. Normal intervals. Supraventricular rhythm seen on previous EKG is no longer present. EKG is similar to 07/11/2015 when sinus bradycardia was present. CBC is unremarkable. Calcium is elevated at 11.4. Remainder of her CMP is unremarkable. TSH is normal. Magnesium is normal. Troponin is normal. proBNP is normal. Urine dip is negative for infection. CT angio head shows Stable 5 mm aneurysm supraclinoid ICA. 2. ?? Mild stenosis M2 branch left MCA. CT angio neck No stenosis or occlusion. 2. ?? Multiple heterogeneous thyroid nodules largest [address]s from 07/2022 were reviewed and appear similar. The thyroid nodules are consistent with her knownhistory of a multinodular goiter. Patient was able to ambulate without difficulty. Repeat troponin is normal. Patient's blood pressure was initially elevated 208/81 but improved to 162/75 without any intervention. Patient discharged home. Patient encouraged to follow up with her primary care doctor. Patient and her daughter were given return precautions which they expressed understanding. Final diagnoses: Other fatigue Disposition: Discharged Chief complaint: fatigue, weakness HPI Kenyatta Lopez is a 81 y.o. female with a history of depression, hypertension, traumatic brain injury, CVA, atherosclerotic cardiovascular disease, obstructive sleep apnea, and congestive heartfailure who presents to the ED for weakness, fatigue, decreased appetite, intermittent blurred vision, and intermittent chest tightness. Patient reports normally she is able to attend to her ADLs, takes no medications, lives about her house, and buys her groceries however over the last week she hasbeen spending more time in bed and even when she is out of bed is too fatigued to do much of anything. No fevers, shortness of breath, nausea, vomiting, abdominal pain, numbness, or tingling. Patienthad 1 episode of stool streaked with mucus and a small amount of blood last week but has not had any since. Patient feels that she may have a slight increase in swelling in her lower extremities. No chest pain at this time. History was provided by: Patient, patient's daughter Patient's pertinent PMH, FH, SH were reviewed and edited as necessary. Physical Exam BP (!) 162/75 Pulse 57 Temp 36.6 ??C (97.9 ??F) (Oral) Resp 16 Wt 67.1 kg (148 lb) SpO2 97% BMI 28.90 kg/m?? A medical screening exam was performed. Physical Exam Vitals and nursing note reviewed. Constitutional: General: She is not in acute distress. Appearance: She is well-developed and well-nourished. HENT: Right Ear: External ear normal. Left Ear: External ear normal. Nose: Nose normal. Mouth/Throat: Mouth: Mucous membranes are dry. Pharynx: Oropharynx is clear. Eyes: Extraocular Movements: EOM normal. Right eye: No nystagmus. Left eye: No nystagmus. Conjunctiva/sclera: Conjunctivae normal. Pupils: Pupils are equal, round, and reactive to light. Cardiovascular: Rate and Rhythm: Normal rate and regular rhythm. Pulses: Intact distal pulses. Pulmonary: Effort: Pulmonary effort is normal. Comments: Normal work of breathing, able to speak in full sentences, no audible wheezing, no cough Abdominal: General: There is no distension. Palpations: Abdomen is soft. Tenderness: There is no abdominal tenderness. There is no guarding. Musculoskeletal: General: Normal range of motion. Cervical back: Normal range of motion and neck supple. Skin: General: Skin is warm and dry. Capillary Refill: Capillary refill takes less than 2 seconds. Neurological: General: No focal deficit present. Mental Status: She is alert and oriented to person, place, and time. GCS: GCS eye subscore is 4. GCS verbal subscore is 5. GCS motor subscore is 6. Cranial Nerves: Cranial nerves 2-12 are intact. Sensory: Sensation is intact. Motor: Motor function is intact. Comments: Strength 5/5 throughout Psychiatric: Mood and Affect: Mood and affect normal. An EKG was obtained and independently interpreted. EKG shows sinus bradycardia rate of 55. No ST elevation or depressions. Normal intervals. Supraventricular rhythm seen on previous EKG is no longer present. EKG is similar to 07/11/2015 when sinus bradycardia was present. Laboratory results independently reviewed. Procedures Procedures documented in this encounter Plan of Treatment Upcoming Encounters Date Type Department Care Team (Late st Contact Info) Description 05/19/2024 11:00 EST Office Visit [facility] Family Medicine [address], [address] [place] [address] Dane Rick MD [address] [place] [address] [address] [place] [address] documented as of this encounter Procedures Procedure Name Priority Date/Time Associated Diagnosis Comments ECG REPORT - SCANNED 10/23/2022 8:04 EDT TROPONIN I STAT 10/20/2022 20:[address] ANGIO HEAD NECK STAT 10/20/2022 19 :08 EDT HOLD BLUE TOP Routine 10/20/2022 16:54 EDT EXTRA BLOOD DRAW (RAINBOW) Routine 10/20/2022 16:54 EDT ANAPLASMA AND BABESIA TESTING BY PCR Routine 10/20/2022 16:51 EDT LYME AB SCREEN, IGG AND IGM Routine 10/20/2022 16:49 EDT THYROID CASCADE STAT 10/20/2022 16:49 EDT NT PRO BNP STAT 10/20/2022 16:49 EDT MAGNESIUM STAT 10/20/2022 16:49 EDT COMPREHENSIVE METABOLIC PANEL (CMP) STAT 10/20/2022 16:49 EDT TROPONIN I STAT 10/20/2022 16:48 EDT COMPLETE BLOOD COUNT AND DIFFERENTIAL STAT 10/20/2022 16:48 EDT EKG 12-LEAD STAT 10/20/2022 16:12 EDT POCT URINE DIPSTICK, VISUAL READ STAT 10/20/2022 15:24 EDT documented in this encounter Results * ECG REPORT - SCANNED (10/23/2022 8:04 EDT) 10/23/2022 8:04 EDT Scan 2 Rand Butter PROCEDURE/MINOR PRINCESS GICAL ORDERABLES * TROPONIN I (10/20/2022 20:20 EDT) Troponin I (ng/mL) <0.034 <0.034 ng/mL 10/20/2022 20:55 EDT [facility] Blood VENOUS BLOOD / Unknown Venipuncture / Unknown 10/20/2022 20:20 EDT 10/20/2022 20:24 EDT Narrative [facility] - 10/20/2022 20:55 EDT The results of this assay can be falsely lowered due to the consumption of Biotin. Ashlee Tilley DO CHEMISTRY & BLOO D GAS ORDERABLES [facility] [address] [place] [address] * CT ANGIO HEAD NECK (10/20/2022 19:08 EDT) Anatomical Region Laterality Modality Head and Neck Computed Tomogra phy 10/20/2022 18:4 0 EDT Impressions 10/20/2022 20:25 EDT 1. ?? Stable 5 mm aneurysm supraclinoid ICA. 2. ?? Mild stenosis M2 branch left MCA. PROCEDURE INFORMATION: Exam: CTA Neck With Contrast Exam date and time: 10/20/2022 6:40 PM Age: 81 years old Clinical indication: Other: Unknown; Additional info: Intermittent changes to her speech, fatigue, generalized weakness, h/o CVA and aneurysm TECHNIQUE: Imaging protocol: Computed tomographic angiography of [...] prior 12 months: This patient has received [address] and 0 known cardiac nuclear medicine studies in the 12 months prior to the current study. COMPARISON: CT ANGIO HEAD NECK 07/28/2022 10:30 AM FINDINGS: Right common carotid artery: No stenosis. No dissection or occlusion. Right internal carotid artery: No stenosis of the extracranial segment. No dissection or occlusion. Right external carotid artery: No occlusion or stenosis of the origin. ?? Left common carotid artery: No stenosis. No dissection or occlusion. Left internal carotid artery: No stenosis of the extracranial segment. No dissection or occlusion. Left external carotid artery: No occlusion or stenosis of the origin. ?? Right vertebral artery: No stenosis. No dissection or occlusion. Left vertebral artery: No stenosis. No dissection or occlusion. Thyroid: Multiple heterogeneous thyroid nodules largest 3 cm. Soft tissues: Normal. No significant soft tissue swelling. Bones/joints: No acute fracture. IMPRESSION: 1. ?? No stenosis or occlusion. 2. ?? Multiple heterogeneous thyroid nodules largest 3 cm. COMMENTS: Consistent with the [employer]'s Incidental Findings Committee white [...] THIS DOCUMENT HAS BEEN ELECTRONICALLY SIGNED BY EMORY MCKENNA MD FOR ANY QUESTIONS OR CONCERNS REGARDING THIS REPORT PLEASE CALL [facility] AT [phone] Narrative 10/20/2022 20:25 EDT PROCEDURE INFORMATION: Exam: CTA Head Without And With Contrast, Arteriography Exam date and time: 10/20/2022 6:40 PM Age: 81 years old Clinical indication: Other: Unknown; Additional info: Intermittent changes to her speech, fatigue, generalized weakness, h/o CVA and aneurysm TECHNIQUE: Imaging protocol: Computed tomographic angiography of the head without and with contrast. Exam focused on the arteries. [...] prior 12 months: This patient has received [address] and 0 known cardiac nuclear medicine studies in the 12 months prior to the current study. COMPARISON: CT ANGIO HEAD NECK 07/28/2022 10:30 AM FINDINGS: ANTERIOR CIRCULATION: Right internal carotid artery: Intracranial segment is patent with no significant stenosis or occlusion. No aneurysm. Right middle cerebral artery: No occlusion or significant stenosis. No aneurysm. ?? Right anterior cerebral artery: No occlusion or significant stenosis. No aneurysm. ?? Left internal carotid artery: Intracranial segment is patent with no significant stenosis. No aneurysm. Left middle cerebral artery: Mild stenosis M2 branch left MCA. Left anterior cerebral artery: No occlusion or [...] occlusion or significant stenosis. No aneurysm. ?? HEAD: Brain: No new parenchymal abnormalities or evidence of an acute infarct. Cerebral ventricles: Normal. No ventriculomegaly. Bones/joints: Unremarkable. No acute fracture. Paranasal sinuses: Visualized sinuses are normal. No fluid levels. Mastoid air cells: Visualized mastoids are normal. No mastoid effusion. Soft tissues: Unremarkable. Other findings: Stable 5 mm aneurysm supraclinoid ICA. Procedure Note Emory Mckenna MD - 10/20/2022 PROCEDURE INFORMATION: Exam: CTA Head Without And With Contrast, Arteriography Exam date and time: 10/20/2022 6:40 PM Age: 81 years old Clinical indication: Other: Unknown; Additional info: Intermittent changes to her speech, fatigue, generalized weakness, h/o CVA and aneurysm TECHNIQUE: Imaging protocol: Computed tomographic angiography of the head without and with contrast. Exam focused on the arteries. [...] prior 12 months: This patient has received [address] and 0 known cardiac nuclear medicine studies in the 12 months prior to the current study. COMPARISON: CT ANGIO HEAD NECK 07/28/2022 10:30 AM FINDINGS: ANTERIOR CIRCULATION: Right internal carotid artery: Intracranial segment is patent with no significant stenosis or occlusion. No aneurysm. Right middle cerebral artery: No occlusion or significant stenosis. No aneurysm. Right anterior cerebral artery: No occlusion or significant stenosis. No aneurysm. Left internal carotid artery: Intracranial segment is patent with no significant stenosis. No aneurysm. Left middle cerebral artery: Mild stenosis M2 branch left MCA. Left anterior cerebral artery: No occlusion or [...] No occlusion or significant stenosis. No aneurysm. HEAD: Brain: No new parenchymal abnormalities or evidence of an acute infarct. Cerebral ventricles: Normal. No ventriculomegaly. Bones/joints: Unremarkable. No acute fracture. Paranasal sinuses: Visualized sinuses are normal. No fluid levels. Mastoid air cells: Visualized mastoids are normal. No mastoid effusion. Soft tissues: Unremarkable. Other findings: Stable 5 mm aneurysm supraclinoid ICA. IMPRESSION 1. Stable 5 mm aneurysm supraclinoid ICA. 2. Mild stenosis M2 branch left MCA. PROCEDURE INFORMATION: Exam: CTA Neck With Contrast Exam date and time: 10/20/2022 6:40 PM Age: 81 years old Clinical indication: Other: Unknown; Additional info: Intermittent changes to her speech, fatigue, generalized weakness, h/o CVA and aneurysm TECHNIQUE: Imaging protocol: Computed tomographic angiography of [...] prior 12 months: This patient has received [address] and 0 known cardiac nuclear medicine studies in the 12 months prior to the current study. COMPARISON: CT ANGIO HEAD NECK 07/28/2022 10:30 AM FINDINGS: Right common carotid artery: No stenosis. No dissection or occlusion. Right internal carotid artery: No stenosis of the extracranial segment. No dissection or occlusion. Right external carotid artery: No occlusion or stenosis of the origin. Left common carotid artery: No stenosis. No dissection or occlusion. Left internal carotid artery: No stenosis of the extracranial segment. No dissection or occlusion. Left external carotid artery: No occlusion or stenosis of the origin. Right vertebral artery: No stenosis. No dissection or occlusion. Left vertebral artery: No stenosis. No dissection or occlusion. Thyroid: Multiple heterogeneous thyroid nodules largest 3 cm. Soft tissues: Normal. No significant soft tissue swelling. Bones/joints: No acute fracture. IMPRESSION: 1. No stenosis or occlusion. 2. Multiple heterogeneous thyroid nodules largest 3 cm. COMMENTS: Consistent with the [employer]'s Incidental Findings Committee white [...] THIS DOCUMENT HAS BEEN ELECTRONICALLY SIGNED BY EMORY MCKENNA MD FOR ANY QUESTIONS OR CONCERNS REGARDING THIS REPORT PLEASE CALL [facility] [phone] Ashlee Tilley DO IMG CT ORDERABLE S * HOLD BLUE TOP (10/20/2022 16:54 EDT) Hold Hold 10/20/2022 18:01 EDT [facility] Blood VENOUS BLOOD / Unknown Venipuncture / Unknown 10/20/2022 16:54 EDT 10/20/2022 16:54 EDT Ashlee Tilley DO LAB INFO SERVICE AND SUPPORT & PHONE RESULT Performing Organization Address [facility] Co de Phone Number [facility] [address] [place] [address] * ANAPLASMA AND BABESIA TESTING BY PCR (10/20/2022 16:51 EDT) Anaplasma phagocytophilum Negative Negative 10/21/2022 15:50 EDT [facility] Babesia Species Negative Negative 15:50 EDT [facility] Blood VENOUS BLOOD / Unknown Venipuncture / Unknown 10/20/2022 16:51 EDT 10/20/2022 16:53 EDT Narrative [facility] - 10/21/2022 15:50 EDT This test was developed and its performance characteristics determined by [facility]. It has not been cleared or approved by the US Food and Drug Administration. FDA does not require this test to go through premarket FDA review. This test is used for clinical purposes. It should not be regarded as investigational or research. This laboratory is certified under the Clinical Laboratory Improvement Amendments (CLIA) as qualified to perform high complexity clinical laboratory testing. Ashlee Tilley DO CHEMISTRY & BLOO D GAS ORDERABLES Performing Organization Address [facility] Co de Phone Number [facility] [address] [place] [address] * LYME AB SCREEN, IGG AND IGM (10/20/2022 16:49 EDT) Lyme Antibody, IgG Negative Negative 10/23/2022 9:25 EDT [facility] Lyme Antibody, IgM Negative Negative 10/23/2022 9:25 EDT [facility] Blood VENOUS BLOOD / Unknown Venipuncture / Unknown 10/20/2022 16:49 EDT 10/20/2022 16:53 EDT Ashlee Tilley DO IMMUNOLOGY AND S EROLOGY ORDERABLES Performing Organization Address [facility]/ZIP Co de Phone Number [facility] [address] [place] [address] * NT PRO BNP (10/20/2022 16:49 EDT) NT-pro BNP 239 <296 pg/mL 10/20/2022 18:05 EDT [facility] Comment: In the acute setting NT-proBNP values <300 pg/mL have a 98% NPV for excluding acute heart failure. In outpatient populations, NT-proBNP values <125 have a 99% NPV for excluding heart failure. Blood VENOUS BLOOD / Unknown Venipuncture / Unknown 10/20/2022 16:49 EDT 10/20/2022 16:53 EDT Ashlee Tilley DO CHEMISTRY & BLOO D GAS ORDERABLES Performing Organization Address [facility]/ZIP Co de Phone Number [facility] [address] [place] [address] * MAGNESIUM (10/20/2022 16:49 EDT) Pathologist [facility] Magnesium 2.2 1.7 - 2.8 mg/dL 10/20/2022 18:05 EDT [facility] Blood VENOUS BLOOD / Unknown Venipuncture / Unknown 10/20/2022 16:49 EDT 10/20/2022 16:53 EDT Ashlee Tilley DO CHEMISTRY & BLOO D GAS ORDERABLES Performing Organization Address City/[facility]/ZIP Co de Phone Number [facility] [address] [place] [id number] * THYROID CASCADE (10/20/2022 16:49 EDT) Pathologist [facility] TSH 1.79 0.47 - 4.68 mIU/L 10/20/2022 18:26 EDT [facility] Blood VENOUS BLOOD / Unknown Venipuncture / Unknown 10/20/2022 16:49 EDT 10/20/2022 16:53 EDT Narrative [facility] - 10/20/2022 18:26 EDT NOTE: The results of this assay can be falsely lowered due to the consumption of Biotin. Ashlee Tilley DO CHEMISTRY & BLOO D GAS ORDERABLES [facility] [address] [place] [address] * (ABNORMAL) COMPREHENSIVE METABOLIC PANEL (CMP) (10/20/2022 16:49 EDT) Sodium 137 136 - 145 mmol/L 10/20/2022 18:05 [facility] Potassium 4.4 3.5 - 5.0 mmol/L 10/20/2022 18:05 [facility] Chloride 99 96 - 110 mmol/L 10/20/2022 18:05 [facility] CO2 Total 28 22 - 32 mmol/L 10/20/2022 18:05 [facility] Glucose 87 70 - 99 mg/dl 10/20/2022 18:05 [facility] BUN 18 10 - 26 mg/dL 10/20/2022 18:05 [facility] Creatinine 0.80 0.52 - 1.04 mg/dL 10/20/2022 18:05 [facility] eGFR 74 >60 mL/min/1.7 3m2 10/20/2022 18:05 [facility] Total Protein 7.8 6.3 - 8.2 g/dL 10/20/2022 18:05 [facility] Albumin 4.3 3.4 - 4.9 g/dL 10/20/2022 18:05 [facility] Alkaline Phosphatase 120 38 - 126 U/L 10/20/2022 18:05 [facility] AST 22 15 - 46 U/L 10/20/2022 18:05 [facility] ALT 16 <35 U/L 10/20/2022 18:05 [facility] Bilirubin, Total 1.4(H) <1.4 mg/dL 10/21/19 18:05 [facility] Calcium 11.4(H) 8.5 - 10.5 mg/dL 10/20/2022 18:05 EDT [facility] Albumin/Globulin Ratio 1.2 1.0 - 2.5 g/dL 10/20/2022 18:05 EDT [facility] Anion Gap 10 5 - 14 mmol/L 10/20/2022 18:05 EDT [facility] Blood VENOUS BLOOD / Unknown Venipuncture / Unknown 10/20/2022 16:49 EDT 10/20/2022 16:53 EDT Ashlee Tilley DO CHEMISTRY & BLOO D GAS ORDERABLES Performing Organization Address [facility] Co de Phone Number [facility] [address] [place] [address] * TROPONIN I (10/20/2022 16:48 EDT) Pathologist [facility] Troponin I (ng/mL) <0.034 <0.034 ng/mL 10/20/2022 18:07 EDT [facility] Blood VENOUS BLOOD / Unknown Venipuncture / Unknown 10/20/2022 16:48 EDT 10/20/2022 16:53 EDT Narrative [facility] - 10/20/2022 18:07 EDT The results of this assay can be falsely lowered due to the consumption of Biotin. Ashlee Tilley DO CHEMISTRY & BLOO D GAS ORDERABLES Performing Organization Address [facility]/ZIP Co de Phone Number [facility] [address] [place] [address] * COMPLETE BLOOD COUNT AND DIFFERENTIAL (10/20/2022 16:48 EDT) WBC 9.79 4.00 - 12.40 K/cmm 10/20/2022 17:08 EDT [facility] RBC 4.84 3.86 - 5.04 M/cmm 10/20/2022 17:08 EDT [facility] Hemoglobin 14.0 11.6 - 15.2 g/dL 10/20/2022 17:08 EDT [facility] HCT 42.0 34.9 - 44.4 % 10/20/2022 17:08 [facility] MCV 87 81 - 98 fL 10/20/2022 17:08 [facility] MCH 28.9 26.7 - 33.3 pg 10/20/2022 17:08 [facility] MCHC 33.3 32.1 - 35.9 g/dL 10/20/2022 17:08 [facility] RDW-CV 13.4 <14.7 % 10/20/2022 17:08 [facility] RDW-SD 42.0 <50.4 fl 10/20/2022 17:08 [facility] PLT 366 141 - 377 K/cmm 10/20/2022 17:08 [facility] MPV 9.8 9.5 - 12.7 fL 10/20/2022 17:08 [facility] % Neutrophils 67.1 % 10/20/2022 17:08 [facility] % Lymphocytes 23.1 % 10/20/2022 17:08 [facility] % Monocytes 6.8 % 10/20/2022 17:08 [facility] % Eosinophils 1.7 % 10/20/2022 17:08 [facility] % Basophils 0.9 % 10/20/2022 17:08 [facility] % Immature Grans 0.4 % 10/21/19 17:08 [facility] Absolute Neutrophils 6.56 2.20 - 8.85 K/cmm 10/20/2022 17:08 [facility] Absolute Lymphocytes 2.26 1.09 - 3.30 K/cmm 10/20/2022 17:08 [facility] Absolute Monocytes 0.67 0.10 - 0.80 K/cmm 10/20/2022 17:08 [facility] Absolute Eosinophils 0.17 0.03 - 0.61 K/cmm 10/20/2022 17:08 [facility] ABS Basophils 0.09 0.01 - 0.11 K/cmm 10/20/2022 17:08 EDT [facility] Absolute Immature Grans 0.04 0.00 - 0.06 K/cmm 10/20/2022 17:08 EDT [facility] Type of Differential: Auto 10/20/2022 17:08 EDT [facility] Blood VENOUS BLOOD / Unknown Venipuncture / Unknown 10/20/2022 16:48 EDT 10/20/2022 16:53 EDT Ashlee Tilley DO PACKAGES & DNA P ROBE ORDERABLES [facility] [address] [place] [address] * EKG 12-LEAD (10/20/2022 16:12 EDT) 10/20/2022 16:1 2 EDT Narrative [facility] - 10/21/2022 7:54 EDT ? [facility] ? Test Date: ?2022-10-20 Pat Name: ? KENYATTA LOPEZ ? Department: ? Room: ? C07 Gender: ? Female ? Manager Ct: ?? BRITTNI JEFFREYB: ?1940 ? Requested By: HARRY Aguilera Number: [id number] ? Reading MD: ?? HARIS WHITMAN MD ? Measurements Intervals ?Cecil ? Rate: ? 55 ? P: ?60 [place]: ? 178 ?QRS: ?-21 QRSD: ? 76 ? T: ?31 QT: ? 426 ? QTc: ?407 ? Interpretive Statements Sinus bradycardia Compared to ECG 03/20/2021 23:51:08 T-wave abnormality no longer present I reviewed the tracing and have either agreed or edited the findings in this report. Electronically Signed On 10-21-2022 7:54:10 EDT by HARIS WHITMAN MD. Procedure Note Haris Whitman MD - 10/21/2022 [facility] [place]: 2022-10-20 Pat Name: KENYATTA LOPEZ Department: [place] [facility] [place]: Female Manager Ct: BRITTNI : 1940 Requested By: HARRY GUERRA Order Number: [id number] Reading MD: HARIS WHITMAN MD Measurements Intervals Cecil Rate: 55 P: 60 [place]: 178 QRS: -21 QRSD: 76 T: 31 QT: 426 QTc: 407 Interpretive Statements Sinus bradycardia Compared to ECG 03/20/2021 23:51:08 T-wave abnormality no longer present I reviewed the tracing and have either agreed or edited the findings inthis report. Electronically Signed On 10-21-2022 7:54:10 EDT by HARIS ROMAN. Ashlee Tilley DO CARDIAC ECG [facility] * POCT URINE DIPSTICK, VISUAL READ (10/20/2022 15:24 EDT) Color, UA Yellow Clarity, UA Clear Glucose, UA Negative . mg/dL Bilirubin, UA Negative Negative Ketones, UA Negative . mg/dL Spec Grav, UA 1.010 1.005 - 1.030 Blood, UA Negative Negative pH, UA 7.0 4.6 - 8.0 Protein, UA Negative . mg/dL Urobilinogen, UA 0.2 0.2 - 1.0 E.U./dL Nitrite, UA Negative . Leuk Esterase Negative Negative Comment Urine URINE SPECIMEN COLLECTION, CLEAN CATCH / Unknown 10/20/2022 15:24 EDT Ashlee Tilley DO POINT OF CARE TE ST ORDERABLES documented in this encounter Visit Diagnoses Diagnosis Other fatigue- Primary documented in this encounter Administered Medications Inactive Administered Medications - up to 3 most recent administrations Medication Order MAR Action Action Date Dose Rate Site iohexoL (OMNIPAQUE 350) solution 100 mL 100 mL, intravenous, Once in imaging, 1 dose, Starting on Sun10/20/22 at 1843, Until Sun10/20/22 at 1908, Routine Given 10/20/2022 19:08 EDT 100 mL sodium chloride 0.9 % BOLUS 500 mL 500 mL, intravenous, NOW X1, 1 dose, On Sun10/20/22 at 1845, STAT New Bag 10/20/2022 18:49 EDT 500 mL documented in this encounter Active and Recently Administered Medications Times are shown in EDT. Scheduled Medication Order 10/18/2022 10/19/2022 10/20/2022 iohexoL (OMNIPAQUE 350) solution 100 mL (COMPLETED) 100 mL, intravenous, Once in imaging, 1 dose, Starting on Sun10/20/22 at 1843, Until Sun10/20/22 at 1908, Routine 1908 (Given - Provid er: Elisabet Ramos) sodium chloride 0.9 % BOLUS 500 mL (COMPLETED) 500 mL, intravenous, NOW X1, 1 dose, On Sun10/20/22 at 1845, STAT 1849 (New Bag - Prov ider: Betty Martinez RN)1919 (Completed - Provider: Betty Martinez RN) documented in this encounter Orders Medications Ordered That Salbador ht Not Have Been Administered Count Last Ordered Date First Ordered Date sodium chloride 0.9 % BOLUS 1,000 mL 1 10/01 documented in this encounter Care Teams Sheep Rancher Relationship Specialty Start Date End Date Dane Rick MD [address] [place] [address] [phone] PCP - General Family Medicine - Primary Care 08/09/22 Vicky Chamberlain, [facility] Director [facility] 06/12/22 01/22/24 documented as of this encounter
--- OUTSIDE RECORDS SUMMARY | 2024-02-08 01:11 | XMS_ITS | Encounter Summary ---
Author Organization [facility] Address [address] [place] [address] Care Team Providers Care Psychiatry Resident Name Role Phone Otis Gee MD Primary Care Provider Joseph Chamberlain Vicky PILE DRIVER OPERATOR [place] Unavailable [phone] Reason for Visit * Reason Onset Date Comments Appointment Related 04/25/2022 Encounter Details Date Type Department Care Team ([facility] Contact Info) Description 04/25/2022 Telephone [facility] Adult Neurology - [facility] [address] [place], [place] [id number] Janell Jj, SERVICE SPECIALIST [address] [facility], [address] [place] [address] Appointment Related Social History Tobacco [...] Miscellaneous Notes * Telephone Encounter - Nupur Whitfield RN - 05/09/2022 9931 EST @ 3973 - Technical Business Analyst attempted to contact client F/U on client's concerns w/o success. * Telephone Encounter - Nupur Whitfield RN - 04/26/2022 1136 EST @1141 - Technical Business Analyst attempted to call client back w/o success. 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 Rescheduled to next available 08/17/22 at 2:30pm and added to waitlist. She is looking to speak with the nurse in the meantime. Her spouse just a couple of weeks ago and she is under great stress. She is worried that she may follow after the of her spouse. Please call back to advise. documented in this encounter Plan of Treatment Upcoming Encounters Date Type Department Care Team (Late st Contact Info) Description 05/19/2024 11:00 EST Office Visit [facility] Family Medicine [address] [place] [address] Dane Rick MD [address] [place] [address] [address] [place] [address] documented as of this encounter Visit Diagnoses Not on filedocumented in this encounter Care Teams Psychiatry Resident Relationship Specialty Start Date End Date Otis Gee MD PCP - General 01/14/10 08/08/22 Vicky Chamberlain, [facility] Audio/Video Engineer 06/12/22 01/22/24 documented as of this encounter
--- OUTSIDE RECORDS SUMMARY | 2024-02-08 01:11 | XMS_ITS | Encounter Summary ---
Author Organization [facility] Address [address] [place] [address] Care Team Providers Care Retort Fireman Name Role Phone Otis Gee MD Primary Care Provider Elisabet Mathews RN Unavailable [phone] Encounter Details Date Type Department Care Team (Latest Contact Info) Description 09/09/2021 Travel Social History Tobacco Use Types Packs/Day Years Used Date Smoking Tobacco: Never Smokeless Tobacco: Never Alcohol Use Standard Drinks/Week Comments Yes 0 (1 standard drink = 0.6 oz pur e alcohol) occasionally Interpersonal Safety Answer Date Record ed Physically Hurt Never 11/02/2019 Verbally Threaten Not on file 11/02/2019 Sex and Gender Information Value Date Recorded Sex Assigned at Not on file Gender Identity Female 02/28/2019 7:38 EST Sexual Orientation Not on file COVID-19 Exposure Response Date Recorded In the last 10 days, have yo u been in contact with someone who was confirmed or suspected to have Coronavirus/COVID-19? No / Unsure 09/09/2021 16:17 EDT documented as of this encounter Functional [...] Office Visit [facility] Family Medicine [facility] [address], [address] [place] [address] Dane Rick MD [address] [place] [address] [address] [place] [address] documented as of this encounter Visit Diagnoses Not on filedocumented in this encounter Care Teams Retort Fireman Relationship Specialty Start Date End Date Otis Gee MD PCP - General 01/14/10 08/08/22 Elisabet Aponte RN [address] [facility] [place] [address] Technical Spec 06/29/21 04/09/22 documented as of this encounter
--- OUTSIDE RECORDS SUMMARY | 2024-02-08 01:11 | XMS_ITS | Encounter Summary ---
Author Organization [facility] Address [address] [place] [address] Care Team Providers Care Mobile Device Developer Name Role Phone Otis Gee MD Primary Care Provider Elisabet Mathews RN Unavailable [phone] Reason for Visit * Reason Comments Injections Encounter Details Date Type Department Care Team ([facility] Contact Info) Description 09/09/2021 16:15 EDT Procedure visit [facility] Medicine [address] [place], [place] [phone] Francoise Melchor NP [address] [facility] [address] [place], [place] [id number] Osteoarthritis of left knee, unspecified osteoarthritis type [...] 16:17 EDT documented as of this encounter Last Filed Vital Signs Vital Sign Reading Time Taken Comments Blood Pressure - - Pulse - - Temperature 36.3 ??C (97.4 ??F) 09/09/2021 1621 EDT Respiratory Rate - - Oxygen Saturation - [...] of this encounter Progress Notes * Francoise Melchor NP - 09/09/2021 1615 EDTAssociated Order(s): Large Joint Injection/Arthrocentesis: L knee Post-Procedure Diagnose(s): Osteoarthritis of left knee, unspecified osteoarthritis type PROBLEM: Left knee monovisc; osteoarthritis SUBJECTIVE: Kenyatta Vizcaino is a 80 y.o. female who is here today for a monovisc injection left knee. Established osteoarthritis, last visit on 06/[address] Francis at which time she had a steroidinjection. Called in July stating no lasting relief with steroid and this visit was arranged. Of note, patient insists today she did not see Dr. Francis in May of 2021, states this was in 2020. The past medical, family and social history have been reviewed in the patient chart. I spent time preparing in advance of the visit today, which included obtaining and reviewing prior history and notes from the primary care provider and/or referring providers, as well as reviewing any relevant prior imaging and tests, which I also independently interpreted. She is a never smoker. Here with her daughter. OBJECTIVE: Temp 36.3 ??C (97.4 ??F) General appearance: Well-developed, well nourished, no acute distress. pleasant and cooperative. HEENT: normocephalic, atraumatic Lungs: no increased work of breathing Skin: clean, dry and intact Msk: Focused exam of the left knee reveals no significant effusion, no overlying skin changes, no deformity. No lower leg swelling. DIAGNOSTICS: Radiographs of the left knee from 04/2020 demonstrate advanced tricompartmental osteoarthritis. ASSESSMENT/PLAN: 80yoF with established knee OA and no lasting relief with steroid in May here for monovisc injection. After reviewing risks and benefits of an injection including variability of results, verbal consent was obtained to proceed today. A timeout was performed. The left knee was prepped in the standard sterile fashion. After final verication of the correct site, 4ml of monovisc wasinjection into the knee. She tolerated the procedure well. Follow up in 3-4 weeks to assess response. Procedure: Large Joint Injection/Arthrocentesis: L knee on 09/09/2021 16:15 Medications: 88 mg hyaluronate sodium, stabilized 88 mg/4 mL; 2 mL lidocaine (PF) 10 mg/mL (1 %) This note was prepared using voice recognition software and the EMR. There may be inadvertent errors and omissions. Francoise Melchor APRN 09/09/2021 documented in this encounter Plan of Treatment Upcoming Encounters Date Type Department Care Team (Late st Contact Info) Description 05/19/2024 11:00 EST Office Visit [facility] Family Medicine [address], [facility] [address] [place] [address] Dane Rick MD [address] [place] [address] [address] [place] [address] documented as of this encounter Procedures Procedure Name Priority Date/Time Associated Diagnosis Comments LARGE JOINT INJECTION/ARTHROCE NTESIS Routine 09/09/2021 16:15 EDT Osteoarthritis of left knee, unspecified osteoarthritis type documented in this encounter Results * MD ARTHROCENTESIS ASPIR&/INJ MAJOR JT/BURSA W/O US (09/09/2021 16:15 EDT) Narrative [facility] POINT OF CARE - 09/09/2021 16:15 EDT Francoise Melchor NP ? 09/09/2021 16:57 Large Joint Injection/Arthrocentesis: L knee on 09/09/2021 16:15 Medications: 88 mg hyaluronate sodium, stabilized 88 mg/4 mL; 2 mL lidocaine (PF) 10 mg/mL (1 %) Francoise Melchor TRANSITION OF CARE SPECIALIST PROCEDURE/MINOR SURG ICAL ORDERABLES [facility] POINT OF CARE documented in this encounter Visit Diagnoses Diagnosis Osteoarthritis of left knee, unspecified osteoarthritis type- Primary documented in this encounter Administered Medications Inactive Administered Medications - up to 3 most recent administrations Medication Order MAR Action Action Date Dose Rate Site hyaluronate sodium, stabilized (MONOVISC) syringe 88 mg 88 mg, intra-articular, Once PRN Procedure, 1 dose, Starting on Sun09/09/21 at 1615, Until Sun09/09/21 at 1615, Routine Given 09/09/2021 16:15 EDT 88 mg lidocaine (PF) 10 mg/mL (1 %) injection 2 mL 2 mL, other, Once PRN Procedure, 1 dose, Starting on Sun09/09/21 at 1615, Until Sun09/09/21 at 1615, Routine Given 09/09/2021 16:15 EDT 2 mL documented in this encounter Care Teams Mobile Device Developer Relationship Specialty Start Date End Date Otis Gee MD PCP - General 01/14/10 08/08/22 Elisabet Aponte RN [address] [place] [address] Habilitation Assistant 06/29/21 04/09/22 documented as of this encounter
--- OUTSIDE RECORDS SUMMARY | 2024-02-08 01:11 | XMS_ITS | Encounter Summary ---
Author Organization [facility] Address [address] [place] [address] Care Team Providers Care Director Global Development Name Role Phone Otis Gee MD Primary Care Provider Unava ilable Reason for Visit * Reason Comments Medications Refill Encounter Details Date Type Department Care Team ([facility] st Contact Info) Description 05/29/2022 Refill [facility] Medicine [facility] [address] [place], [place] [phone] Otis Gee MD Medications Refill Social History [...] IN THE AFTERNOON 270 Tablet 05/30/2022 09/01/2022 buPROPion (WELLBUTRIN SR) 150 mg SR tablet Take 1 tablet by mouth twice daily 180 Tablet 05/30/2022 09/01/2022 documented in this encounter Miscellaneous Notes * Telephone Encounter - Ankit Chu RN - 05/30/2022 1405 EST [facility] MEDICATION REFILL Medication: Bupropion, Furosemide Medication, dose, directions verified: yes Pharmacy verified: yes Last office visit: 03/03/22 Next office visit: 06/06/22 Sent rx's to requested pharmacy per office refill protocol. documented in this encounter Plan of Treatment Upcoming Encounters Date Type Department Care Team (Late st Contact Info) Description 05/19/2024 11:00 EST Office Visit [facility] Family Medicine [address], [facility] [address] [place] [address] Dane Rick MD [address] [place] [phone] documented as of this encounter Visit Diagnoses Not on filedocumented in this encounter Discontinued Medications Medication Sig Discontinue Reason Start Date End Da te furosemide (LASIX) 20 mg tablet TAKE 2 TABLETS BY MOUTH IN THE MORNING AND 1 IN THE AFTERNOON 11/30/2021 05/30/2022 buPROPion (WELLBUTRIN SR) 150 mg SR tablet Take 1 tablet by mouth twice daily 11/30/2021 05/30/2022 documented as of this encounter Care Teams Director Global Development Relationship Specialty Start Date End Date Otis Gee MD PCP - General 01/14/10 08/08/22 documented as of this encounter
--- OUTSIDE RECORDS SUMMARY | 2024-02-08 01:11 | XMS_ITS | Encounter Summary ---
Author Organization [facility] Address [address] [place] [address] Care Team Providers Care Gunstock Repairer Name Role Phone Otis Gee MD Primary Care Provider Vicky Gee Unavailable [phone] Reason for Visit * Reason Comments Follow-up Encounter Details Date Type Department Care Team ([facility] Contact Info) Description 06/29/2022 11:30 EDT Office Visit [facility] Medicine [facility] [address], [facility] [address] [place] [address] Otis Gee MD Other fatigue (Primary Dx); Left-sided chest wall pain; Chronic blepharitis Social History Tobacco Use Types Packs/Day Years [...] slept in a retirement (including now)? No 05/02/2022 Interpersonal Safety Answer [...] Sign Reading Time Taken Comments Blood Pressure 120/64 06/29/2022 1119 EDT Pulse 60 06/29/2022 1119 EDT Temperature - - Respiratory Rate 16 06/29/2022 1119 EDT Oxygen Saturation - - Inhaled Oxygen Concentration - - Weight 71.2 kg (157 lb) 06/29/2022 1119 EDT pt d eclined wt, approx 157 lbs per pt Height - - Body Mass Index 30.66 09/15/2021 1117 EDT documented in this encounter Functional Status [...] by mouth every 48 hours. 06/29/2022 09/19/2022 documented in this encounter Progress Notes * Otis Gee MD - 06/29/2022 1130 EDT Primary Care Office Visit Assessment & Plan Diagnoses and all orders for this visit: Other fatigue Comments: From the recent of her , this patient is a morning. We will check for physical reasonsfor fatigue with labs Orders: - COMPLETE BLOOD COUNT AND DIFFERENTIAL - COMPREHENSIVE METABOLIC PANEL (CMP) - COMPREHENSIVE METABOLIC PANEL (CMP) - VITAMIN B12 Left-sided chest wall pain Comments: Reassurance given. Use heat to the area and exercise care with house chores Chronic blepharitis Comments: warm soaks, t/c baby shampoo rinse Other orders - aspirin 81 mg EC tablet No follow-ups on file. Patient education was direct. Barriers were assessed and addressed as needed. I spent a total of 30 minutes on the date of this encounter meeting with the patient and reviewing documentation/coordinating care as described in the above note. Unless otherwise noted, no procedures were performed at the time of the visit. Rosy You is a 81 y.o. female presenting with Follow-up HPI This patient comes in today with multiple concerns 1. She has had a funny feeling in her chest. It is tender to touch. She wants the skin area checkedto make sure there is nothing wrong. No history of trauma to the site. Pain is not exertional and comes with pressing the area. 2. Her eyes run and occasionally have mucus. This is long-term. 3. Patient has fatigue feelings. She still is in morning of because of the recent of her . She finds it hard to get things done during the day. She finds her self tired. She has tremendous support from her [id number] back 4. Patient details an odd episode at the pharmacy recently during which today pushed her to get anyimmunization that she had not requested. Patient expresses great distress over these events and is pursuing it with the pharmacy to change their practices Data reviewed this visit: problem list/past medical history, current medications and allergies ROS - See HPI Objective BP 120/64 (BP Cuff Location: Left arm, BP Cuff Sizes: Adult, regular) Pulse 60 Resp 16 Wt 71.2 kg (157 lb) Comment: pt declined wt, approx 157 lbs per pt BMI 30.66 kg/m?? Physical Exam This patient is talkative and reflective today. She shows photos of the earlier years with her . Chest wall appears normal without any rashes she has slight tenderness at the tips of her 11th and 12th ribs anteriorly. They do not appear to be displaced. 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 * Bre Stone RN - 06/29/2022 1130 EDT Venipuncture Procedure Performed By: BRE STONE RN Site of Collection: Left Antecubital Patient Response: Patient Tolerated Well Number of Attempts: 1 Tubes Drawn: 1 tiger, 1 purple Ordering Provider: Dr Gee A label with patient's name and date of was verified to include correct information and placed on lab tubes in the presence of the patient. documented in this encounter Plan of Treatment Upcoming Encounters Date Type Department Care Team (Late st Contact Info) Description 05/19/2024 11:[address] [facility] Family Medicine [address], [address] [place] [address] Dane Rick MD [address] [place] [address] [address] [place] [address] documented as of this encounter Procedures Procedure Name Priority Date/Time Associated Diagnosis Comments COMPLETE BLOOD COUNT AND DIFFERENTIAL Routine 06/29/2022 12:20 EDT Other fatigue VITAMIN B12 Routine 06/29/2022 12:20 EDT Other fatigue COMPREHENSIVE METABOLIC PANEL (CMP) Routine 06/29/2022 12:20 EDT Other fatigue documented in this encounter Results * VITAMIN B12 (06/29/2022 12:20 EDT) [facility] Vitamin B12 407 211 - 911 pg/mL 06/29/2022 16:34 EDT [facility] Blood VENOUS BLOOD / Unknown Venipuncture / Unknown 06/29/2022 12:20 EDT 06/29/2022 12:20 EDT [facility] - 06/29/2022 16:34 EDT The results of this assay can be falsely elevated due to the consumption of Biotin. Otis Gee MD CHEMISTRY & BLOOD GA S ORDERABLES [facility] [address] [place] [address] * (ABNORMAL) COMPREHENSIVE METABOLIC PANEL (CMP) (06/29/2022 12:20 EDT) [facility] Sodium 139 136 - 145 mmol/L 06/29/2022 15:40 [facility] Potassium 3.9 3.5 - 5.0 mmol/L 06/29/2022 15:40 [facility] Chloride 101 96 - 110 mmol/L 06/29/2022 15:40 [facility] CO2 Total 29 22 - 32 mmol/L 06/29/2022 15:40 [facility] Glucose 86 70 - 100 mg/dL 06/29/2022 15:40 [facility] BUN 15 10 - 26 mg/dL 06/29/2022 15:40 [facility] Creatinine 0.76 0.52 - 1.04 mg/dL 06/29/2022 15:40 [facility] eGFR 79 >60 mL/min/1.7 3m2 06/29/2022 15:40 [facility] Total Protein 7.2 6.3 - 8.2 g/dL 06/29/2022 15:40 [facility] Albumin 4.3 3.4 - 4.9 g/dL 06/29/2022 15:40 [facility] Alkaline Phosphatase 121 38 - 126 U/L 06/29/2022 15:40 [facility] AST 24 15 - 46 U/L 06/29/2022 15:40 [facility] ALT 19 <35 U/L 06/29/2022 15:40 [facility] Bilirubin, Total 0.9 <1.4 mg/dL 06/30/19 23 15:40 [facility] Calcium 10.9(H) 8.5 - 10.5 mg/dL 06/29/2022 15:40 [facility] Albumin/Globulin Ratio 1.5 1.0 - 2.5 06/29/2022 15:40 [facility] Anion Gap 9 5 - 14 06/29/2022 15:40 [facility] Blood VENOUS BLOOD / Unknown Venipuncture / Unknown 06/29/2022 12:20 EDT 06/29/2022 12:20 EDT Otis Gee MD CHEMISTRY & BLOOD GA S ORDERABLES Performing Organization Address City/State/[facility] Co de Phone Number [facility] [address] [place] [address] * COMPLETE BLOOD COUNT AND DIFFERENTIAL (06/29/2022 12:20 EDT) WBC 9.73 4.00 - 12.40 K/cmm 06/29/2022 15:19 [facility] RBC 4.62 3.86 - 5.04 M/cmm 06/29/2022 15:19 [facility] Hemoglobin 13.6 11.6 - 15.2 gm/dL 06/29/2022 15:19 [facility] HCT 40.7 34.9 - 44.4 % 06/29/2022 15:19 [facility] MCV 88 81 - 98 fl 06/29/2022 15:19 [facility] MCH 29.4 26.7 - 33.3 pg 06/29/2022 15:19 [facility] MCHC 33.4 32.1 - 35.9 gm/dL 06/29/2022 15:19 [facility] RDW-CV 13.3 <14.7 % 06/29/2022 15:19 [facility] RDW-SD 42.7 <50.4 fl 06/29/2022 15:19 [facility] PLT 343 141 - 377 K/cmm 06/29/2022 15:19 [facility] MPV 10.0 9.5 - 12.7 fl 06/29/2022 15:19 [facility] % Neutrophils 70.3 % 06/29/2022 15:19 [facility] % Lymphocytes 19.8 % 06/29/2022 15:19 [facility] % Monocytes 6.6 % 06/29/2022 15:19 [facility] % Eosinophils 2.3 % 06/29/2022 15:19 [facility] % Basophils 0.7 % 06/29/2022 15:19 [facility] % Immature Grans 0.3 % 06/30/19 15:19 [facility] Absolute Neutrophils 6.84 2.20 - 8.85 K/cmm 06/29/2022 15:19 [facility] Absolute Lymphocytes 1.93 1.09 - 3.30 K/cmm 06/29/2022 15:19 [facility] Absolute Monocytes 0.64 0.10 - 0.80 K/cmm 06/29/2022 15:19 [facility] Absolute Eosinophils 0.22 0.03 - 0.61 K/cmm 06/29/2022 15:19 [facility] ABS Basophils 0.07 0.01 - 0.11 K/cmm 06/29/2022 15:19 [facility] Absolute Immature Grans 0.03 0.00 - 0.06 K/cmm 06/29/2022 15:19 EDT [facility] Type of Differential: Auto 06/29/2022 15:19 EDT [facility] Blood VENOUS BLOOD / Unknown Venipuncture / Unknown 06/29/2022 12:20 EDT 06/29/2022 12:20 EDT Otis Gee MD PACKAGES & DNA PROBE ORDERABLES [facility] [address] [place] [address] documented in this encounter Visit Diagnoses Diagnosis Other fatigue- Primary Left-sided chest wall pain Painful respiration Chronic blepharitis documented in this encounter Discontinued Medications Medication Sig Discontinue Reason Start Date End Da te atorvastatin (LIPITOR) 40 mg tablet Take 1 Tablet by mouth daily. 09/15/2021 06/29/2022 clindamycin (CLEOCIN) 150 mg capsule TAKE 1 CAPSULE BY MOUTH 4 TIMES DAILY FOR 7 DAYS 05/15/2022 06/29/2022 aspirin 81 mg EC tablet Take 81 mg by mouth every 48 hours. Reorder 06/29/2022 documented as of this encounter Care Teams Gunstock Repairer Relationship Specialty Start Date End Date Otis Gee MD PCP - General 01/14/10 08/08/22 Vicky Chamberlain, [facility] Electrical Engineering Manager 06/12/22 01/22/24 documented as of this encounter
--- OUTSIDE RECORDS SUMMARY | 2024-02-08 01:11 | XMS_ITS | Encounter Summary ---
Author Organization [facility] Address [address] [place] [address] Care Team Providers Care Maintenance Director Name Role Phone Otis Gee MD Primary Care Provider Elisabet Mathews RN Unavailable [phone] Encounter Details Date Type Department Care Team ([facility] Contact Info) Description 03/14/2022 Patient Outreach [facility] Family Medicine - [facility] [address] [place] [phone] Vicky Chamberlain LICSW [address] [facility] [address] [address] Social History Tobacco Use Types Packs/Day Years Used Date Smoking Tobacco: Never Smokeless Tobacco: Never Alcohol Use Standard Drinks/Week Comments Yes 0 (1 standard drink = 0.6 oz pur e alcohol) occasionally Overall Financial Resource Strain (CARDIA) Answe r Date Recorded How hard is it for you to pa y for the very basics like food, housing, medical care, and heating? Not very hard 03/14/2022 Hunger Vital Sign Answer Date Recorded Within the past 12 months, y ou worried that your food would run out before you got the money to buy more. Never true 03/14/20 22 Within the past 12 months, t he food you bought just didn't last and you didn't have money to get more. Never true 03/14/2022 PRAPARE - Transportation Answer Date Re corded In the past 12 months, has l ack of transportation kept you from medical appointments or from getting medications? No 03/02 In the past 12 months, has l ack of transportation kept you from meetings, work, or from getting things needed for daily living? No 03/14/2022 Housing Stability Vital Sign Answer Lenard e Recorded In the last 12 months, was t here a time when you were not able to pay the mortgage or rent on time? Yes 03/14/2022 Number of Places Lived in the Last Year Not on f ile 03/14/2022 In the last 12 months, was t here a time when you did not have a steady place to sleep or slept in a prison (including now)? No 03/14/2022 Interpersonal Safety Answer Date Record ed How often does anyone, elaina gutierrez family, hit, punch or physically hurt you? Never 03/14/2022 How often does anyone, elaina gutierrez family, insult, scream, curse or threaten to hurt you? Never 03/14/2022 Sex and Gender Information Value Date Recorded [...] of this encounter Progress Notes * Vicky Chamberlain MSW - 03/14/2022 1058 EST [facility] Care Management Initial Assessment and Care Plan Referral Reason: Dental In home mold concerns Housing, landlord issues - not up to code - LL raised rent unexpectedly. $1200 to $1672 Pertinent medical and behavioral health issues: (Ankit) has more medical concerns that Kenyatta does. - Ankti is also a patient of Dr. Gee. Continued left nasal issue going on for years - Can not recall referal to ENT - Thinks it's possibly a dental, occasional tooth pain. -Stroke last year, concerns that this was related to tooth pain Patient Care Team: Otis Gee MD as PCP - Elisabet Pink RN (Inactive) as Composite Science Teacher Medications: Current Outpatient Medications: ??? aspirin 81 mg EC tablet, Take 81 mg by mouth every 48 hours., Disp: , Rfl: ??? atorvastatin (LIPITOR) 40 mg tablet, Take 1 Tablet by mouth daily., Disp: 90 Tablet, Rfl: 3 ??? buPROPion (WELLBUTRIN SR) 150 mg SR tablet, Take 1 tablet by mouth twice daily, Disp: 180 Tablet, Rfl: 0 ??? furosemide (LASIX) 20 mg tablet, TAKE 2 TABLETS BY MOUTH IN THE MORNING AND 1 IN THE AFTERNOON,Disp: 270 Tablet, Rfl: 0 ??? LORazepam (ATIVAN) 0.5 mg tablet, 3 Times a Day as Needed as needed for ANXIETY, Disp: , Rfl: ??? losartan (COZAAR) 100 mg tablet, Take 1 tablet by mouth once daily, Disp: 90 Tablet, Rfl: 3 CM reviewed medication list in the chart Living Arrangement: Living in apartment, moved in 1 year ago. - Landlord is not attentave to concerns. - Wondering if there might be mold - due to recent upper respratory issues since moving in. Social Supports: Daughter in law, Adriana. son 15 years ago, but DIL continues to assist - Lives in [place]. Some friends in the area Activities requiring assistance: Independent with ADLs Current plan for assistance with ADLs: not applicable Hearing/Vision: Some hearing trouble in left, still wondering about tooth concern Cognitive Function: No cognitive impairment identified Health literacy Assessment: patient is able to read/write, appropriate to their developmental age Social Determinants of Health: SDOH screen completed during visit: Yes Food Insecurity: No Food Insecurity ??? Worried About Running Out of Food in the Last Year: Never true ??? Ran Out of Food in the Last Year: Never true Financial Resource Strain: Low Risk ??? Difficulty of Paying Living Expenses: Not very hard Housing Stability: High Risk ??? Unable to Pay for Housing in the Last Year: Yes ??? Number of Places Lived in the Last Year: Not on file ??? Unstable Housing in the Last Year: No Transportation Needs: No Transportation Needs ??? Lack of Transportation (Medical): No ??? Lack of Transportation (Non-Medical): No Depression: Not on file Alcohol Use: Not on file Tobacco Use: Low Risk ??? Smoking Tobacco Use: Never ??? Smokeless Tobacco Use: Never ??? Passive Exposure: Not on file Healthcare Insurance: Payer/Plan Subscr Sex Relation Sub. Ins. ID Effective Group Num 1. [employer] - [employer]* RICHIE LOPEZ* 1940 Female Self [id number] 2. 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 Existing Community Resources: 3 Squares Gaps in Resources Identified: - Dental - Possible alternative housing options Advance Directive on File: AD not on file and wanting to complete living will with water server. Assessment/Clinical Summary: Kenyatta lives with her in a rental apartment, moved in about a year ago. Continual issues with the landlord - Daughter in-Law assisted getting them into this apartment, as LL bought house from the [employer] she works for. - Recently both Kenyatta and her developed respiratory symptoms (states this happened once before, while living in this apartment). - Discussed possible mold, gave her the number to the [facility] Health Officer. 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 - LL raised rent to $1650 from $1200 - Considering different housing options Concerns about this on going nasal drainage - has discussed with MD. - states that there has not been a referral to ENT - would like assistance with dental estimate. - [facility] offered to pre-call some dentists to clarify if they would provide free initial estimate. - Kenyatta had a poor experience with the dentures when going to [place], she will not go back. - has a denture partial, that never fit right Prioritized Patient Identified Goals: 1. Kenyatta will reach out to dentists who will offer free estimate for appointment with in 2 weeks. 2. Kenyatta and [facility] will complete Advance Directive with in 3 months. Plan: - Follow up with dental, information. With in one week - wondering about free estimate. - [facility] for dental work - Kenyatta - will [facility] to [facility]. - follow up with in a week. Next Composite Science TeacherWeight Trainer: 03/22/2022 CAROL ANN ENCISO 03/14/2022 11:41 documented in this encounter Plan of Treatment Upcoming Encounters Date Type Department Care Team (Late st Contact Info) Description 05/19/2024 11:00 EST Office Visit [facility] Family Medicine [address] [place], [place] [phone] Dane Rick MD [address] [place] [address] [address] [place] [address] documented as of this encounter Visit Diagnoses Not on filedocumented in this encounter Care Teams Maintenance Director Relationship Specialty Start Date End Date Otis Gee MD PCP - General 01/14/10 08/08/22 Elisabet Aponte RN [address] [place] [address],[address] [place] [address] Composite Science Teacher 06/29/21 04/09/22 documented as of this encounter
--- OUTSIDE RECORDS SUMMARY | 2024-02-08 01:11 | XMS_ITS | Encounter Summary ---
Author Organization [facility] Address [address] [place] [address] Care Team Providers Care Manager Strategic Development Name Role Phone Otis Gee MD Primary Care Provider Elisabet Mathews RN Unavailable [phone] Reason for Visit * Reason Onset Date Comments Letter 03/31/2022 Encounter Details Date Type Department Care Team ([facility] Contact Info) Description 03/31/2022 Telephone [facility] Medicine [place] [address], [facility] [address] [place] [address] Otis Gee MD Letter Social History Tobacco Use Types Packs/Day [...] in a care home (including now)? No 03/14/2022 Interpersonal Safety Answer [...] * Telephone Encounter - Marta Oh - 04/11/2022 1559 EST Patient picked up letter today * Telephone Encounter - Jeanie Fam - 03/31/2022 1615 EST Pt has been informed and will be coming by to pick it up. * Telephone Encounter - Cathie Coombs - 03/31/2022 1609 EST Letter scanned and placed in brown folder. LM for pt to call back to find out how they would like it delivered to them, mail, bulk picker. documented in this encounter Plan of Treatment Upcoming Encounters Date Type Department Care Team (Late st Contact Info) Description 05/19/2024 11:00 EST Office Visit [facility] Family Medicine [place] [address] [address], [address] [address] Dane Rick MD [address] [place] [phone] documented as of this encounter Visit Diagnoses Not on filedocumented in this encounter Care Teams Manager Strategic Development Relationship Specialty Start Date End Date Otis Gee MD PCP - General 01/14/10 08/08/22 Elisabet Aponte RN [address] [place] [address],[facility] [address] [place] [address] Cat Operator 06/29/21 04/09/22 documented as of this encounter
--- OUTSIDE RECORDS SUMMARY | 2024-02-08 01:11 | XMS_ITS | Encounter Summary ---
Author Organization [facility] Address [address] [place] [address] Care Team Providers Care Soa Integration Developer Name Role Phone Otis Gee MD Primary Care Provider Unava ilable Reason for Visit * Reason Onset Date Comments Appointment Related 05/15/2022 Encounter Details Date Type Department Care Team ([facility] st Contact Info) Description 05/15/2022 Telephone [facility] [place] [address] [address] , [facility] [place] [address] [place], [place] [phone] Otis Gee MD Appointment Related Social History Tobacco Use Types [...] Telephone Encounter - Elisabet Luis RN - 05/16/2022 0811 EST Pt has appmt * Telephone Encounter - Nupur Benson RN - 05/15/2022 1316 EST ----- Message from LATRICE Smith sent at 05/15/2022 12:14 EST ----- I'm not sure if the symptoms she listed here are even concerning, forwarding this to you incase youthink she needs a call/sooner appointment. [facility] Care Management Follow Up ?? Credit Compliance Officer followed up with Kenyatta by phone for [employer]/health insurance update. ?? TOPIC OF CONVERSATION: ? Reviewed assessment and plan from previous visit with patient. ? Engaged patient in conversation related to positive behavior change, self- management, goal setting and action planning using motivational interviewing and active listening. ? Kenyatta states that she recently had a inapropriate conversation with the home, that has left her with some triggers. ? Discussed this situation at length. ? Kenyatta states that [employer] reduced their benefit as she is now one person, with one income. ? Kenyatta states that she contacted a local dentist who sent a prescription for an antibiotic ? Scheduled home visit for 05/24/22 to complete health insurance application. ? Possibly qualified for Medicaid / Medicare ? Kenyatta discussed with this critical care nurse practitioner some medical symptoms that she has been experiencing. ? States yellowing of her eyes, pointed out by her daughter in-law. ? Struggle with bowel movements, states that sometime she won't go for a few days and when she doesnot much comes out, states taking stool softeners and fiber. ? States high tolerance for pain, states that I walked on broken leg for weeks before realizing I shoud have it looked at, it never really hurt. (as an example) ? security and compliance project manager suggested that she either go to urgent care or call the triage nurses at the office. ? Kenyatta states I don't want to make a mountain out of a mole hill, and for it to porcelain turner to be nothing ?? Prioritized Patient Identified Goals: ?? 1. security and compliance project manager and Kenyatta will complete [employer] application to verify her qualificationfor a [place] supplemental or Medicaid ?? Achievement towards goals: In progress appointment for 05/24/22 at 8am ?? 2. Kenyatta will follow through with dental recommendations and appointment security and compliance project manager will support with researching assistance for paying for dental work. ?? Achievement towards goals: In progress ? Plan: Complete [place] [employer] application. ?? Next Credit Compliance OfficerChief Medical Physicist: 05/24/2022 at 8:00am, Home Visit ?? LATRICE SMITH 05/15/2022 11:37 documented in this encounter Plan of Treatment Upcoming Encounters Date Type Department Care Team (Late st Contact Info) Description 05/19/2024 11:00 EST Office Visit [facility] Family Medicine [address], [facility] [place] [address] [place], [place] [phone] Dane Rick MD [address] [place] [address] 2 [place] [address] documented as of this encounter Visit Diagnoses Not on filedocumented in this encounter Care Teams Soa Integration Developer Relationship Specialty Start Date End Date Otis Gee MD PCP - General 01/14/10 08/08/22 documented as of this encounter
--- OUTSIDE RECORDS SUMMARY | 2024-02-08 01:11 | XMS_ITS | Encounter Summary ---
Author Organization [facility] Address [address] [place] [address] Care Team Providers Care Conservation Technician Name Role Phone Otis Gee MD Primary Care Provider Elisabet Mathews RN Unavailable [phone] Reason for Visit * Reason Onset Date Comments Injections 08/16/2021 Encounter Details Date Type Department Care Team ([facility] Contact Info) Description 08/16/2021 Telephone [facility] Orthopedics & Sport Medicine [address] [place] [address] Damon Francis MD [address] [facility] [address] [place] [address] Injections Social History Tobacco Use Types Packs/Day Years [...] encounter Miscellaneous Notes * Telephone Encounter - Mary Kate Guy RN - 08/18/2021 1449 EDT Thank you * Telephone Encounter - Genna Bob - 08/18/2021 1352 EDT Patient is scheduled for September 01 for an injection. She confirmed that her insurance is Medicare. * Telephone Encounter - Mary Kate Guy RN - 08/18/2021 1219 EDT Please confirm with the patient what her insurance is for her left knee and then schedule an appt for injection. Please send the TE back so we can check for PA (if needed) once the insurance is confirmed. * Telephone Encounter - Damon Francis MD - 08/16/2021 1350 EDT That would be fine. Can have appointment with anyone for the injection. * Telephone Encounter - Dulce Maria Gu LPN - 08/16/2021 1045 EDT Berverly called and LVM reporting her steroid injection that was done to her left knee on 06/17/21 did not last very long. She would like a repeat injection or the GEL if she is able to get it. documented in this encounter Plan of Treatment Upcoming Encounters Date Type Department Care Team (Late st Contact Info) Description 05/19/2024 11:00 EST Office Visit [facility] Medicine [address], [address] [place] [address] Dane Rick MD [address] [place] [address] 2 [place] [address] documented as of this encounter Visit Diagnoses Not on filedocumented in this encounter Care Teams Conservation Technician Relationship Specialty Start Date End Date Otis Gee MD PCP - General 01/14/10 08/08/22 Elisabet Aponte RN [address] [place] [address],[facility] 2 [place] [address] Addictions Counselor Assistant 06/29/21 04/09/22 documented as of this encounter
--- OUTSIDE RECORDS SUMMARY | 2024-02-08 01:11 | XMS_ITS | Encounter Summary ---
Author Organization [facility] Address [address] [place] [address] Care Team Providers Care Educational Adviser Name Role Phone Otis Gee MD Primary Care Provider Unava ilable Reason for Referral * PT/OT/ST (Routine/Next Available) - Closed Specialty Diagnoses / Procedures Referred By Franky ferreira Referred To Contact Rehab Therapies Diagnoses Pain in both upper extremities Otis Gee MD [address] [address] Referral ID Status Reason Start Date Expiration Date V isits Requested Visits Authorized [id number] Closed Specialty Services Required 06/06/2022 1 1 Question Answer Reason for Request: bilateral shoulder and arm pain Comments This referral may serve as a referral to occupational therapy if appropriate. Reason for Visit * Reason Comments Follow-up Encounter Details Date Type Department Care Team (Latest Contact Info) Description 06/06/2022 16:[address] [facility] Medicine [facility] [address], [address] [place] [address] Otis Gee MD Arteriosclerotic cardiovascular disease (Primary Dx); Essential (primary) hypertension; Other congestive heart failure (HCC-CMS); Depression with anxiety; Traumatic brain injury with loss of consciousness, sequela (HCC-CMS); Pain in both upper extremities; Left foot drop; Grieving Social History Tobacco Use Types Packs/Day Years [...] Sign Reading Time Taken Comments Blood Pressure 162/72 06/06/2022 1611 EST Pulse 68 06/06/2022 1611 EST Temperature - - Respiratory Rate 16 06/06/2022 1611 EST Oxygen Saturation 98% 06/06/2022 1611 EST Inhaled Oxygen Concentration - - Weight [...] as of this encounter Progress Notes * Otis Gee MD - 06/06/2022 1615 EST Primary Care Office Visit Assessment & Plan Diagnoses and all orders for this visit: Arteriosclerotic cardiovascular disease Essential (primary) hypertension Comments: reassess at home and report values Other congestive heart failure (HCC) Depression with anxiety Comments: continue current meds. reinforced need for regular exercise, social contacts Traumatic brain injury with loss of consciousness, sequela (HCC-CMS) (HCC) Pain in both upper extremities Comments: etiology unclear. will start with PT to see if strengthening makes a difference Orders: - AMB CONS/FOLLOW UP PHYSICAL THERAPY - [facility] Left foot drop Comments: multiple factors causing. discussed use of cane for security in walking Grieving Comments: long discussion of her 's final days and . discussed guilt she feels. offered referral to [facility] support group Other orders - losartan (COZAAR) 100 mg tablet - clindamycin (CLEOCIN) 150 mg capsule No follow-ups on file. Patient education was direct. Barriers were assessed and addressed as needed. I spent a total of 45 minutes on the date of this encounter meeting with the patient and reviewing documentation/coordinating care as described in the above note. Unless otherwise noted, no procedures were performed at the time of the visit. Rosy You is a 81 y.o. female presenting with Follow-up HPI here today with Adriana, the of her now son, to Discuss multiple issues. We had a long talk about the of her . She is feeling guilty that she hassled him at the end, not realizing he was in such a decline. Needs to hear details about what was found, what happened in the hospital and in transport when he . She continues to live on [address] [place], still difficult in that landlord wants to raise rent andis not responsive. She has bilat arm pains- in upper arms with certain movements. No hx trauma. No lifting. occ she has pains in her hips when she has been sitting on hard surfaces. She notices her left leg does not work right, occ will lag to the left with walking, .denies any significant falls. Worries about her brain, an aneurysm, has f/u in july, no headaches noted. Data reviewed this visit: problem list/past medical history, current medications and allergies ROS - See HPI Objective BP (!) 162/72 (BP Cuff Location: Left arm, BP Patient Position: Sitting, BP Cuff Sizes: Adult, regular) Pulse 68 Resp 16 SpO2 98% Physical Exam Sad appearing, daughter in law here , supportive, lets her talk Arms- sl pain in biceps at insertion proximaly and triceps on right. Gait-sl left foot drop noted. Exhausts with toe raises by fifth try documented in this encounter Plan of Treatment Upcoming Encounters Date Type Department Care Team ([facility] st Contact Info) Description 05/19/2024 11:00 EST Office Visit [facility] Family Medicine - [address], [address] [place] [address] Dane Rick MD [address] [facility] [address] [place] [address] Scheduled Referrals Name Type Priority Associated Diagnoses Order Schedule AMB CONS/FOLLOW UP PHYSICAL THERAPY - [facility] Outpatient Referral Routine/Next Available Pain in both upper extremities Expected: 07/07/2022 (Approximate), Expires: 06/07/2023 documented as of this encounter Visit Diagnoses Diagnosis Arteriosclerotic cardiovascular disease- Primary Unspecified cardiovascular disease Essential (primary) hypertension Unspecified essential hypertension Other congestive heart failure (HCC-CMS) Congestive heart failure, unspecified Depression with anxiety Dysthymic disorder Traumatic brain injury with loss of consciousness, sequela (HCC-CMS) Pain in both upper extremities Left foot drop Other acquired deformity of ankle and foot Grieving Adjustment disorder with depressed mood documented in this encounter Historical Medications * This list may reflect changes made after this encounter. Medication Sig Dispensed Refills Start Date End Date clindamycin (CLEOCIN) 150 mg capsule TAKE 1 CAPSULE BY MOUTH 4 TIMES DAILY FOR 7 DAYS 05/15/2022 06/29/2022 losartan (COZAAR) 100 mg tablet Take 100 mg by mouth daily. 05/16/2022 09/19/2022 added in this encounter Care Teams Educational Adviser Relationship Specialty Start Date End Date Otis Gee MD PCP - General 01/14/10 08/08/22 documented as of this encounter
--- OUTSIDE RECORDS SUMMARY | 2024-02-08 01:11 | XMS_ITS | Encounter Summary ---
Author Organization [facility] Address [address] [place] [address] Care Team Providers Care Glass Cut Off Supervisor Name Role Phone Otis Gee MD Primary Care Provider Joseph easley Encounter Details Date Type Department Care Team ([facility] st Contact Info) Description 04/11/2022 Patient Outreach [facility] - [facility] Family Medicine - [facility] [address] [place] [address] Vicky Chamberlain LICSW [address] [facility] [address] [place] [id number] Social History Tobacco Use Types Packs/Day Years [...] slept in a chcf (including now)? No 03/14/2022 Interpersonal Safety Answer [...] this encounter Progress Notes * Vicky Chamberlain, CAROL ANN - 04/11/2022 1545 EST [facility] Storage Brine Worker Care Coordination Storage Brine Worker spoke with Kenyatta on 04/11/2022 in order to coordinate care. Kenyatta leaves voice message requesting return call regarding dental estimate. - States that her unexpectedly on Sunday. Returned call, - States that she went to [facility] and got an estimate $9,500. - Ongoing concerns that the tooth (or teeth) that are causing pain in her head and sinuses. - States that Mary mentioned that Medicare might cover if the need is medically necessary - residential field manager researched this... From Medicare.gov: Medicare Part A (Hospital Insurance)??will pay for certain dental services thatyou get when you're in a hospital. Part A can pay for hospital stays if you need to have emergency or complicated dental procedures, even though it doesn't cover dental care. - Kenyatta requests other options for this dental procedure. PLAN: residential field manager will research option. - Aware of [employer] for minimal monetary assistance - Called [facility], may possibly know of other supports. - Kenyatta wishes not to go to [facility] - Could go to [facility] or [facility]. (COUNT INCLUDES THE [facility] clinics) CAROL ANN ENCISO 04/11/2022 15:46 documented in this encounter Plan of Treatment Upcoming Encounters Date Type Department Care Team (Late st Contact Info) Description 05/19/2024 11:00 EST Office Visit [facility] Family Medicine [address], [facility] 2 [place] [address] Dane Rick MD [address] [place] [address] [address] [place] [address] documented as of this encounter Visit Diagnoses Not on filedocumented in this encounter Care Teams Glass Cut Off Supervisor Relationship Specialty Start Date End Date Otis Gee MD PCP - General 01/14/10 08/08/22 documented as of this encounter
--- OUTSIDE RECORDS SUMMARY | 2024-02-08 01:11 | XMS_ITS | Encounter Summary ---
Author Organization [facility] Address [address] [place] [address] Care Team Providers Care Product Design Manager Name Role Phone Otis Gee MD Primary Care Provider Elisabet Mathews RN Unavailable [phone] Vicky Chamberlain Unavailable [phone] Dane Rick MD Primary Care Provider [phone] Leticia Lieberman Unavailable Mendoza Guzmán MD Unavailable [phone] Reason for Visit * Reason Comments Medications Refill Encounter Details Date Type Department Care Team (Late st Contact Info) Description 01/16/2022 Refill [facility] Family Medicine [facility] [address] , [address] [place] [address] Otis Gee MD Medications Refill [...] losartan (COZAAR) 100 mg tablet Take 1 tablet by mouth once daily 90 Tablet 3 01/16/2022 04/16/2022 documented in this encounter Miscellaneous Notes * Telephone Encounter - Bubba Brennan MA - 01/16/2022 1140 EDT [facility] MEDICATION REFILL Medication: losartan (COZAAR) 100 mg tablet Medication, dose, directions verified: Yes Pharmacy verified: Yes Last office visit: 09/15/2021 Next office visit: 08/02/2022 documented in this encounter Plan of Treatment Upcoming Encounters Date Type Department Care Team (Late st Contact Info) Description 05/19/2024 11:00 EST Office Visit [facility] Family Medicine [address], [facility] 2 [place] [address] Dane Rick MD [address] [place] [address] [address] [place] [address] documented as of this encounter Visit Diagnoses Not on filedocumented in this encounter Discontinued Medications Medication Sig Discontinue Reason Start Date End Da te losartan (COZAAR) 100 mg tablet Take 1 tablet by mouth once daily 09/16/2021 01/16/2022 documented as of this encounter Additional Health Concerns Infection Onset Date Last Indicated Resolved Time R/O COVID-19 08/13/2023 08/13/2023 08/13/2023 20:0 7 EDT documented as of this encounter Care Teams Product Design Manager Relationship Specialty Start Date End Date Otis Gee MD PCP - General 01/14/10 08/08/22 Dane Rick MD [address] [place] [address] [address] [place] [phone] PCP - General Family Medicine - Primary Care 08/09/22 Elisabet Aponte RN [address] [facility] [place] [address] Merchandise Distributor 06/29/21 04/09/22 Vicky Chamberlain LICSW [address] [facility] 2 [place], [place] [phone] Merchandise Distributor 06/12/22 01/22/24 Leticia Lieberman [address] [place] [phone] General Surgery 04/03/23 Mendoza Guzmán MD [address] [place] [address] [address] [place] [phone] Otolaryngology 04/03/23 documented as of this encounter
--- OUTSIDE RECORDS SUMMARY | 2024-02-08 01:11 | XMS_ITS | Encounter Summary ---
Author Organization [facility] Address [address] [place] [address] Care Team Providers Care Memorial Adviser Name Role Phone Otis Gee MD Primary Care Provider Elisabet Mathews RN Unavailable [phone] Vicky Chamberlain Unavailable [phone] Dane Rick MD Primary Care Provider [phone] Leticia Lieberman Unavailable Mendoza Guzmán MD Unavailable [phone] Reason for Visit * Reason Comments Other Encounter Details Date Type Department Care Team (Late st Contact Info) Description 11/30/2021 [facility] Family Medicine [address], [facility] 2 [place] [address] Gill Oliver, [facility] [address] [facility] [address] [place] [address] Other Social History Tobacco Use Types Packs/Day [...] Dispensed Refills Start Date End Da te buPROPion (WELLBUTRIN SR) 150 mg SR tablet Take 1 tablet by mouth twice daily 180 Tablet 11/30/2021 05/30/2022 furosemide (LASIX) 20 mg tablet TAKE 2 TABLETS BY MOUTH IN THE MORNING AND 1 IN THE AFTERNOON 270 Tablet 11/30/2021 05/30/2022 documented in this encounter Miscellaneous Notes * Telephone Encounter - Carmen Vicente RN - 11/30/2021 1333 EDT Medication(s) Requested: Wellbutrin 150 mg and Lasix 20 mg Preferred Pharmacy: [facility] in [place] Is patient out of medication? Unknown Last Refill Date: Wellbutrin 07/27/21 and Lasix 07/27/21 Last Visit Date with Ordering Provider: 09/15/21 Next Non-Acute Visit Date Scheduled with Care Team: No. CARMEN VICENTE RN 11/30/2021 13:34 documented in this encounter Plan of Treatment Upcoming Encounters Date Type Department Care Team (Late st Contact Info) Description 05/19/2024 11:00 EST Office Visit [facility] Family Medicine [address], [place] [place] [phone] Dane Rick MD [address] [facility] 2 [place] [address] documented as of this encounter Visit Diagnoses Not on filedocumented in this encounter Discontinued Medications Medication Sig Discontinue Reason Start Date End Da te furosemide (LASIX) 20 mg tablet TAKE 2 TABLETS BY MOUTH IN THE MORNING AND 1 TABLET IN THE AFTERNOON 07/27/2021 11/30/2021 buPROPion (WELLBUTRIN SR) 150 mg SR tablet Take 1 tablet by mouth twice daily 07/27/2021 11/30/2021 documented as of this encounter Additional Health Concerns Infection Onset Date Last Indicated Resolved Time R/O COVID-19 08/13/2023 08/13/2023 08/13/2023 20:0 7 EDT documented as of this encounter Care Teams Memorial Adviser Relationship Specialty Start Date End Date Otis Gee MD PCP - General 01/14/10 08/08/22 Dane Rick MD [address] [place] [address] 2 [place] [address] PCP - General Family Medicine - Primary Care 08/09/22 Elisabet Aponte RN [address] [facility] 2 [place] [address] Advisory Intern 06/29/21 04/09/22 Vicky Chamberlain LICSW [address] [facility] 2 [place] [address] Advisory Intern 06/12/22 01/22/24 Leticia Lieberman [address] [place] [phone] General Surgery 04/03/23 Mendoza Guzmán MD [address] [place] [address] [address] [place] [phone] Otolaryngology 04/03/23 documented as of this encounter
--- OUTSIDE RECORDS SUMMARY | 2024-02-08 01:11 | XMS_ITS | Encounter Summary ---
Author Organization [facility] Address [address] [place] [address] Care Team Providers Care Location And Measurement Technician Name Role Phone Otis Gee MD Primary Care Provider Vicky Gee Unavailable [phone] Encounter Details Date Type Department Care Team ([facility] st Contact Info) Description 06/30/[address] [facility] [place] - [facility] [address] [place] [address] Vicky Chamberlain LICSW [address] [place] [address] [address] [place], [place] [phone] Social History Tobacco Use Types Packs/Day Years [...] this encounter Progress Notes * Vicky Chamberlain, MONORAIL CRANE OPERATOR - 06/30/2022 1033 EDT [facility] Platform Architect Care Coordination Platform Architect spoke with Kenyatta on 06/30/22 in order to coordinate care. Kenyatta states that she had all her teeth pulled, they were unable to keep teeth for the dentures. - Has appointment with dentist, 07/07 for the denture fitting. Asks about DCF payment of $95, thought that this is related to [employer] benefit. PLAN: Continued follow up with ANANYA baker for dentures Continued follow up with Kenyatta for dentures Next Platform ArchitectFinancial Reporting Analyst: 07/28/2022 LATRICE ENCISO 06/30/2022 10:45 documented in this encounter Plan of Treatment Upcoming Encounters Date Type Department Care Team (Late st Contact Info) Description 05/19/2024 11:00 EST Office Visit [facility] Family Medicine [address], [address] [address] Dane Rick MD [address] [place] [phone] documented as of this encounter Visit Diagnoses Not on filedocumented in this encounter Care Teams Location And Measurement Technician Relationship Specialty Start Date End Date Otis Gee MD PCP - General 01/14/10 08/08/22 Vicky Chamberlain LICSW Platform Architect 06/12/22 01/22/24 documented as of this encounter
--- OUTSIDE RECORDS SUMMARY | 2024-02-08 01:11 | XMS_ITS | Encounter Summary ---
Author Organization [facility] Address [address] [place] [address] Care Team Providers Care Strip Machine Tender Name Role Phone Otis Gee MD Primary Care Provider Elisabet Mathews RN Unavailable [phone] Reason for Visit * Reason Onset Date Comments Coordination Of Care 08/12/2021 Encounter Details Date Type Department Care Team ([facility] Contact Info) Description 08/12/2021 Telephone [facility] [address], [facility] [address] [place] [address] Zehra Aponte, HARINDER Coordination Of Care Social History Tobacco Use [...] * Telephone Encounter - Radha Carmen - 08/16/2021 0847 EDT Patient called to speak to Working Supervisor. * Telephone Encounter - Elisabet Cordova RN - 08/12/2021 1544 EDT LATE ENTRY: CHT RN met with patient and her spouse for medication reconciliation. Patient currently is prescribed Losartan 100 mg once daily, Lorazepam .5 mg prn (states she sometimes takes 1.0 mg with high anxiety), Lasix 20 mg 2 tabs in AM, one tab PM, bupropion SR 150 mg 1 tablet twice daily. Pt states she typically only takes her bupropion in the AM as she doesn't remember to take in the PM. Pt discussed ways she might remember to take her PM pill, such as placing on the table to take atdinnertime. RN reinforced the importance of taking medications as prescribed, and may help with heranxiety as well. Pt remains focused on Plavix and insists that Dr Chavira (ED )told her to take it. She has required frequent reinforcement that the medication was just for 18 days and not beyond that. May still need support around this. RN will maintain contact with patient as she works to remain compliant and consistent with her medications documented in this encounter Plan of Treatment Upcoming Encounters Date Type Department Care Team (Late st Contact Info) Description 05/19/2024 11:00 EST Office Visit [facility] Family Medicine [address], [facility] 2 [place] [address] Dane Rick MD [address] [facility] [address] [place] [phone] documented as of this encounter Visit Diagnoses Not on filedocumented in this encounter Care Teams Strip Machine Tender Relationship Specialty Start Date End Date Otis Gee MD PCP - General 01/14/10 08/08/22 Elisabet Aponte RN [address] [place] [address],[address] [place] [address] Lithographic Photographer Apprentice 06/29/21 04/09/22 documented as of this encounter
--- OUTSIDE RECORDS SUMMARY | 2024-02-08 01:11 | XMS_ITS | Encounter Summary ---
Author Organization [facility] Address [address] [place] [address] Care Team Providers Care National Sales Director Name Role Phone Otis Gee MD Primary Care Provider Joseph easley Encounter Details Date Type Department Care Team ([facility] st Contact Info) Description 04/14/2022 Patient Outreach [facility] - [facility] [address] [place] [address] Vicky Chamberlain LICSW 130 [facility] [address] [place] [id number] Social History Tobacco Use Types Packs/Day Years [...] [place] [facility] [place] (including [place])? No 03/14/2022 Interpersonal Safety Answer [...] Progress Notes * Vicky Chamberlain MSW - 04/14/2022 1201 EST [facility] Care Management Follow Up Medical Program Specialist followed up with Kenyatta by phone for dental. TOPIC OF CONVERSATION: ??? Reviewed assessment and plan from previous visit with patient. ??? Engaged patient in conversation related to positive behavior change, self- management, goal setting and action planning using motivational interviewing and active listening. ??? stallion manager initially checks in with eKnyatta regarding grief, and if there are any referrals she feels she needs for community support o Kenyatta states that she feels that she is generally okay, has a lot of support from her family right now. - States that she will reach out for support if something comes up. ??? Kenyatta states that she continues to have discomfort in her head, which she believes Is connected to her dental issues, I have neglected my care for sometime, or so I'm told. - Explains that she has a very high tolerance for pain, mentioning that she broke her ankle My daughter and I heard the crack, but I didn't note any pain and walked on it for some time, before having it looked at - Notes that this high pain tolerance is a concern for this dental issue. - Kenyatta does describe dizziness, trouble seeing, and pressure on that side of her head. - Notes that she has had her sinuses looked at, and there was no note to any issues. ?? Care management discussed options for dental with out insurance coverage. - Discussed Medicare research, asked 04/11/22; not an option for this. - Dicussed [facility] dental care described that they have sliding scales for dentures/extrations. - Offered the numbers for; - [facility] [phone] - [facility] [phone] - [facility] [phone] *stallion manager mentioned they were previously employed at the [facility] that covers [facility]), that the staff there is attentive. That career discovery teacher is unaware of who the current dentist is, as they have a new one since career discovery teacher has been there. Mentioned that Kenyatta could mention this care managers name upon calling. ?? Kenyatta mentions concerns about timing, as she arranges for husbands arrangements. ?? stallion manager explains that I can not predict the office schedule ?? RADHA did mention that likely there would be 4 visits in total (initial (with records from [place]), extraction, denture molds, denture fitting) ?? Kenyatta asks about time between extraction and denture fitting. ?? RADHA explained that I can con predict her body's healing process - but this time could be months. Prioritized Patient Identified Goals: 1. Kenyatta will reach out to dental office of her choice and make an appointment for an initial exam and x-rays. Kenyatta will make this call with in 2 weeks. kelli You will call this [facility], for updates as needed. Achievement towards goals: Completed 2. Kenyatta will reach out to her [facility] of choice to schedule initial appointment. With in one week. - Will reach out to as needed for updates. Achievement towards goals: In progress Plan: Next Medical Program SpecialistLens Mounter: 05/15/2022 CAROL ANN ENCISO 04/14/2022 12:16 documented in this encounter Plan of Treatment Upcoming Encounters Date Type Department Care Team (Late st Contact Info) Description 05/19/2024 11:00 EST Office Visit [facility] Family Medicine [address], [email or web address] 2 [place], [place] [address] Dane Rick MD [address] [place] [address] 2 [place] [phone] documented as of this encounter Visit Diagnoses Not on filedocumented in this encounter Care Teams National Sales Director Relationship Specialty Start Date End Date Otis Gee MD PCP - General 01/14/10 08/08/22 documented as of this encounter
--- OUTSIDE RECORDS SUMMARY | 2024-02-08 01:11 | XMS_ITS | Encounter Summary ---
Author Organization [facility] Address [address] [place] [address] Care Team Providers Care Education Nurse Name Role Phone Otis Gee MD Primary Care Provider Vicky Gee Unavailable [phone] Encounter Details Date Type Department Care Team ([facility] st Contact Info) Description 06/21/2022 Patient Outreach [facility] - [facility] [address] [place] [address] Vicky Chamberlain LICSW [address] [place] [address] [address] [place], [place] [phone] Social History Tobacco Use Types Packs/Day Years [...] this encounter Progress Notes * Vicky Chamberlain, [facility] - 06/21/2022 5887 EDT [facility] Care Management Follow Up Cinder Block Maker followed up with Kenyatta by Phone for dental assistance. TOPIC OF CONVERSATION: ??? Reviewed assessment and plan from previous visit with patient. ??? Engaged patient in conversation related to positive behavior change, self- management, goal setting and action planning using motivational interviewing and active listening. ??? Kenyatta calls, states that she feels that she needs to have the extraction done immediately andmade an appointment with Christos for tomorrow, 06/22/22 o States that Adriana should be able to help pay that bill. ?? Completed Julia Silent Edge with Kenyatta over the phone, will sign with her tomorrow andget bank statement ?? Fund may assist with up to $1500 for either extraction or dentures ?? CM suggests that she use this funding to cover dentures, since it may not be immediately available. Prioritized Patient Identified Goals: 1. Kenyatta will sign application for [facility] and give bank statements/ estimate for dental work Achievement towards goals: In progress 2. manager of environmental services will send application for assistance Achievement towards goals: In progress Plan: Next Cinder Block MakerCop: 07/27/2022 Follow up as needed. LATRICE ENCISO 06/21/2022 13:59 documented in this encounter Plan of Treatment Upcoming Encounters Date Type Department Care Team (Late st Contact Info) Description 05/19/2024 11:00 EST Office Visit [facility] Family Medicine [address], [facility] 2 [place] [address] Dane Rick MD [address] [place] [address] [address] [place] [phone] documented as of this encounter Visit Diagnoses Not on filedocumented in this encounter Care Teams Education Nurse Relationship Specialty Start Date End Date Otis Gee MD PCP - General 01/14/10 08/08/22 Vicky Chamberlain LICSW Cinder Block Maker 06/12/22 01/22/24 documented as of this encounter
--- OUTSIDE RECORDS SUMMARY | 2024-02-08 01:11 | XMS_ITS | Encounter Summary ---
Author Organization [facility] Address [address] [place] [address] Care Team Providers Care Operater Name Role Phone Otis Gee MD Primary Care Provider Elisabet Mathews RN Unavailable [phone] Encounter Details Date Type Department Care Team ([facility] Contact Info) Description 03/22/2022 Patient Outreach [facility] Family Medicine - [facility] [address] [place] [phone] Vicky Chamberlain LICSW 130 [facility] [address] [address] Social History Tobacco Use Types Packs/Day Years [...] slept in a penitentiary (including now)? No 03/14/2022 Interpersonal Safety Answer [...] Progress Notes * Vicky Chamberlain MSW - 03/22/2022 1047 EST [facility] Care Management Follow Up Physician Non Invasive Cardiologist followed up with Kenyatta by phone for dental. TOPIC OF CONVERSATION: ??? Reviewed assessment and plan from previous visit with patient. ??? Engaged patient in conversation related to positive behavior change, self- management, goal setting and action planning using motivational interviewing and active listening. ??? [facility] explained to Kenyatta that likely the dental offices would need to do x- rays to diagnose the issue. o X-rays are not free. o [facility] would do an exam and x-rays for $204 (maximum). ?? [facility] encourranged Kenyatta to call herself for an appointment ?? She would need to pay out of pocket for the initial appointment. ?? Once she has an estimate and scope of work [facility] could assist in applying for financial assistance. Prioritized Patient Identified Goals: 1. Kenyatta will reach out to dental office of her choice and make an appointment for an initial exam and x-rays. Kenyatta will make this call with in 2 weeks. aJessica You will call this [facility], for updates as needed. Achievement towards goals: In progress Plan: [facility] will reach out to Kenyatta in 3 months, if there are no updates in the meantime. Next Physician Non Invasive CardiologistTele Marketing Executive: 06/20/2022 at 11:00am CAROL ANN ENCISO 03/22/2022 10:47 documented in this encounter Plan of Treatment Upcoming Encounters Date Type Department Care Team (Late st Contact Info) Description 05/19/2024 11:00 EST Office Visit [facility] Family Medicine [address], [place] [address] [place] [address] Dane Rick MD [address] [place] [address] [address] [place] [phone] documented as of this encounter Visit Diagnoses Not on filedocumented in this encounter Care Teams Operater Relationship Specialty Start Date End Date Otis Gee MD PCP - General 01/14/10 08/08/22 Elisabet Aponte RN [address] [facility],[address] [place] [address] Physician Non Invasive Cardiologist 06/29/21 04/09/22 documented as of this encounter
--- OUTSIDE RECORDS SUMMARY | 2024-02-08 01:11 | XMS_ITS | Encounter Summary ---
Author Organization [facility] Address [address] [place] [address] Care Team Providers Care Dice Manager Name Role Phone Otis Gee MD Primary Care Provider Elisabet Mathews RN Unavailable [phone] Encounter Details Date Type Department Care Team (Latest Contact Info) Description 09/15/2021 Travel Social History Tobacco Use Types Packs/Day [...] suspected to have Coronavirus/COVID-19? No / Unsure 09/15/2021 10:07 EDT documented as of this encounter Functional [...] Visit [facility] Family Medicine [facility] [address], [place] [address] [place] [address] Dane Rick MD [address] [place] [address] [address] [place] [phone] documented as of this encounter Visit Diagnoses Not on filedocumented in this encounter Care Teams Dice Manager Relationship Specialty Start Date End Date Otis Gee MD PCP - General 01/14/10 08/08/22 Elisabet Aponte RN [address] [facility],[address] [place] [address] Real Estate Investor 06/29/21 04/09/22 documented as of this encounter
--- OUTSIDE RECORDS SUMMARY | 2024-02-08 01:11 | XMS_ITS | Encounter Summary ---
Author Organization [facility] Address [address] [place] [address] Care Team Providers Care Truck Loader And Unloader Name Role Phone Otis Gee MD Primary Care Provider Vicky GeeSW Unavailable [phone] Reason for Visit * Reason Onset Date Comments Extremity Weakness 06/19/2022 Spot in breas t Encounter Details Date Type Department Care Team (Late st Contact Info) Description 06/19/2022 Telephone [facility] Medicine [facility] [address], [place] [address] [place] [address] Otis Gee MD Extremity Weakness (Spot in breast ) Social History Tobacco Use Types Packs/Day [...] Telephone Encounter - Bre Day RN - 06/22/2022 0419 EDT Pt notified per TC note and verbalized understanding. * Telephone Encounter - Bre Day RN - 06/22/2022 0859 EDT Called pt, pt asked that she be called back at a later time. * Telephone Encounter - Otis Gee MD - 06/21/2022 1814 EDT I would stop the atorvastatin and we can discuss it on the if that has helped or not * Telephone Encounter - Bre Day RN - 06/21/2022 0900 EDT Pt scheduled for OV on 06/29 to discuss spot on breast. Pt remains concerned that her weakness which now involves her back as well as her limbs, is relatedto taking atorvastatin. TC-can you please weigh in on the atorvastatin. * Telephone Encounter - Elisabet Luis RN - 06/20/2022 1145 EDT PT starts next week. * Telephone Encounter - Otis Gee MD - 06/20/2022 1132 EDT I saw her on the and put her in for a PT referral for her legs. Did they not call? I would have to see the spot. OV * Telephone Encounter - Elisabet Luis RN - 06/20/2022 0911 EDT Patient complains of aches and weakness of legs and arms. Feels her legs are weaker. Feels it is her statin, feels fatigue also * Telephone Encounter - Elisabet Luis RN - 06/19/2022 1012 EDT Leftmessage. * Telephone Encounter - Dottie Brooks - 06/19/2022 0909 EDT Patient is reporting increased weakness in her legs. Thinking it is muscular. Patient is also reporting a spot in her upper left breast, it itches and hunter, sometimes if feels it goes away but the spot has come back. documented in this encounter Plan of Treatment Upcoming Encounters Date Type Department Care Team (Late st Contact Info) Description 05/19/2024 11:00 EST Office Visit [facility] Family [address], [facility] 2 [place], [place] [phone] Dane Rick MD [address] [place] [phone] documented as of this encounter Visit Diagnoses Not on filedocumented in this encounter Care Teams Truck Loader And Unloader Relationship Specialty Start Date End Date Otis Gee MD PCP - General 01/14/10 08/08/22 Vicky Chamberlain [facility] Certified Scrum Master 06/12/22 01/22/24 documented as of this encounter
--- OUTSIDE RECORDS SUMMARY | 2024-02-08 01:11 | XMS_ITS | Encounter Summary ---
Author Organization [facility] Address [address] [place] [address] Care Team Providers Care Bark Spudder Name Role Phone Otis Gee MD Primary Care Provider Elisabet Mathews RN Unavailable [phone] Reason for Visit * Reason Comments Knee Pain Medication Management Encounter Details Date Type Department Care Team ([facility] st Contact Info) Description 09/15/2021 11:30 EDT Office Visit [facility] Medicine [facility] [address], [facility] 2 [place] [address] Otis Gee MD Pain in left tibia (Primary Dx); Eyelid anomaly; Cerebral aneurysm; Hemiplegia and hemiparesis following cerebral infarction affecting right dominant side (HCC-CMS) (HCC); Other fatigue Social History Tobacco Use Types Packs/Day Years [...] 10:07 EDT documented as of this encounter Last Filed Vital Signs Vital Sign Reading Time Taken Comments Blood Pressure 114/63 09/15/2021 1117 EDT Pulse 55 09/15/2021 1117 EDT Temperature - - Respiratory Rate - - Oxygen Saturation 97% 09/15/2021 1117 EDT Inhaled Oxygen Concentration - - Weight - - Height 152.4 cm (5') 09/15/2021 1117 EDT Body Mass Index - - documented [...] Dispensed Refills Start Date End Da te atorvastatin (LIPITOR) 40 mg tablet Take 1 Tablet by mouth daily. 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 She and her still work well as a team and it seems to be working. Other fatigue Other orders - atorvastatin (LIPITOR) 40 mg tablet No follow-ups on file. Patient education was direct. Barriers were assessed and addressed as needed. I spent a total of 35 minutes on the date of this encounter meeting with the patient and reviewing documentation/coordinating care as described in the above note. Unless otherwise noted, no procedures were performed at the time of the visit. Rosy You is a 80 y.o. female presenting with Knee Pain and Medication Management HPI This patient is here today with her to discuss a broad range of medical concerns. Overall she feels as if she has not really gotten back up to her previous cognitive state and physical state that she had experienced prior to her stroke. Living in [place]. Likes her place but some complaints about attentiveness of landlord Pain anterior aspect of her left lower meyer. Says she had surgery at 26 , was told she almost lost the leg. Some vague hx of ? Tumor in bone but no records of this. Does have a scar on inner aspect of ankle. Data reviewed this visit: problem list/past medical history, current medications and allergies ROS - See HPI Objective BP 114/63 Pulse 55 Ht 152.4 cm (60) SpO2 97% BMI 33.20 kg/m?? Physical Exam Bright woman, stories are slightly vaque. An overall tone of worry in her voice Left leg with sl tender areas along her meyer. No changes. Normal gait. 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
--- OUTSIDE RECORDS SUMMARY | 2024-02-08 01:11 | XMS_ITS | Encounter Summary ---
Author Organization [facility] Address [address] [place] [address] Care Team Providers Care Survey Operations Director Name Role Phone Otis Gee MD Primary Care Provider Unava ilable Reason for Visit * Reason Onset Date Comments Fall 05/23/2022 Dental Pain 05/23/2022 Encounter Details Date Type Department Care Team (Late st Contact Info) Description 05/23/2022 Telephone [facility] - [facility] Family Medicine [facility] [address], [facility] 2 [place], [place] [phone] Otis Gee MD Fall; Dental Pain Social History Tobacco Use Types Packs/Day Years [...] Miscellaneous Notes * Telephone Encounter - Elisabet uLis RN - 05/23/2022 0988 EST Patient had a nightmare about her being , got out of bed and hit bookcase and when she leaned over to knot picker cloth the books she hit her head. Not sure of LOC but doesn't think so. She had a very upsetting episode with the home has support of her friends and family. Will go to ER if dizzy, weak, imbalance or visual changes. * Telephone Encounter - Cathie Coombs - 05/23/2022 0841 EST Pt just finished antibiotics for tooth infection. Thinks she has a tooth that just needs to be removed. When pt looks at an object it will seem like it is moving (when it is not). Pt recently hit her head on a book case yesterday afternoon. Has a large lump on her head - looks like a blood blister. Pt put ice on it, bubble started to go down. Pt also dealing with grief from loss of her . documented in this encounter Plan of Treatment Upcoming Encounters Date Type Department Care Team (Late st Contact Info) Description 05/19/2024 11:00 EST Office Visit [facility] Family Medicine [address], [address] [place] [address] Dane Rick MD [address] [place] [address] [address] [place] [address] documented as of this encounter Visit Diagnoses Not on filedocumented in this encounter Care Teams Survey Operations Director Relationship Specialty Start Date End Date Otis Gee MD PCP - General 01/14/10 08/08/22 documented as of this encounter
--- OUTSIDE RECORDS SUMMARY | 2024-02-08 01:11 | XMS_ITS | Encounter Summary ---
Author Organization [facility] Address [address] [place] [address] Care Team Providers Care Production Administrator Name Role Phone Otis Gee MD Primary Care Provider Joseph ilvijay Encounter Details Date Type Department Care Team ([facility] st Contact Info) Description 04/28/2022 Patient Outreach [facility] [place] - [facility] [address] [place] [address] Vicky Chamberlain LICSW 130 [facility] [address] [place] [address] Social History Tobacco Use Types Packs/Day Years [...] this encounter Progress Notes * Vicky Chamberlain, HIDES AND SKINS COLORER - 04/28/2022 9576 EST [facility] Care Management Follow Up System Archive Analyst followed up with Kenyatta by home visit for grief support, financial concerns, dental. TOPIC OF CONVERSATION: ??? Reviewed assessment and plan from previous visit with patient. ??? Engaged patient in conversation related to positive behavior change, self- management, goal setting and action planning using motivational interviewing and active listening. Home visit with Kenyatta, also present her daughter in-law Adriana. - Kenyatta's unexpectedly early April,. - Planning , for spring - Worries about her teeth being fixed before the . - Presently living alone, has family checking in on her daily. - Willing to wear Life Alert if it's free. - Kenyatta states concern about finances now that has passed, she will be losing income. - Concerns about affording rent - Grandson has home that has the potential for an accessory dwelling/apartment that would need to be renovated. - Update income with insurance - Update income with [employer] - Kenyatta would like to put their car in her name, transfer registration - Transfer car insurance - Kenyatta wonders about a discount cell phone service. - Kenyatta has a tooth that has been bothering her for some time. - Dentures need to be replaced. - States that she experiences pain though left side of her head, and sinuses, thinks that it may beinfected. - Can not afford to pay full cost for dental work. - Went to [facility] and has x-rays - She will call Nicko Eaton in [place], [facility] has a sliding scale Prioritized Patient Identified Goals: 2. Kenyatta will reach out to her [facility] of choice to schedule initial appointment. With in one week. - Will reach out to as needed for updates. Achievement towards goals: In progress 2. international bank manager will schedule appointment with Kenyatta to update financial information with [employer] and health insurance with in 2 weeks. Achievement towards goals: In progress 3. New Goal: Kenyatta and her family will work together to complete an Advance Directive, completionwithin 2 months. Plan: international bank manager will follow up with Kenyatta for check in 2 weeks. Schedule follow up for financial updates at that time. Next System Archive AnalystBlock Making Machine Operator: 05/12/2022 LATRICE ENCISO 05/02/2022 8:09 documented in this encounter Plan of Treatment Upcoming Encounters Date Type Department Care Team (Late st Contact Info) Description 05/19/2024 11:00 EST Office Visit [place] [address], [address] [place] [address] Dane Rick MD [address] [address] documented as of this encounter Visit Diagnoses Not on filedocumented in this encounter Care Teams Production Administrator Relationship Specialty Start Date End Date Otis Gee MD PCP - General 01/14/10 08/08/22 documented as of this encounter
--- OUTSIDE RECORDS SUMMARY | 2024-02-08 01:11 | XMS_ITS | Encounter Summary ---
Author Organization [facility] Address [address] [place] [address] Care Team Providers Care Project Director Name Role Phone Otis Gee MD Primary Care Provider Elisabet Mathews RN Unavailable [phone] Reason for Visit * Reason Onset Date Comments Medications Refill 09/16/2021 Encounter Details Date Type Department Care Team ([facility] st Contact Info) Description 09/16/2021 Refill [facility] Medicine [facility] [address], [facility] 2 [place], [place] [phone] Otis Gee MD Medications Refill Social History [...] tablet by mouth once daily 90 Tablet 09/16/2021 01/16/2022 documented in this encounter Miscellaneous Notes * Telephone Encounter - Luana Thapa MA - 09/16/2021 1136 EDT [facility] MEDICATION REFILL Medication: losartan 100mg tablets Medication, dose, directions verified: take one tab PO daily Pharmacy verified: [facility] Last office visit: 09/15/21 Next office visit: none Last CMP collected on 04/15/19; results WNL except elevated calcium (11.4mg/dL) TE to TC - med pended for review documented in this encounter Plan of Treatment Upcoming Encounters Date Type Department Care Team (Late st Contact Info) Description 05/19/2024 11:00 EST Office Visit [facility] Family Medicine [address], [facility] 2 [place], [place] [address] Dane Rick MD [address] [place] [address] [address] [place] [address] documented as of this encounter Visit Diagnoses Not on filedocumented in this encounter Discontinued Medications Medication Sig Discontinue Reason Start Date End Da te losartan (COZAAR) 100 mg tablet Take 1 Tablet by mouth daily. 06/21/2021 09/16/2021 documented as of this encounter Care Teams Project Director Relationship Specialty Start Date End Date Otis Gee MD PCP - General 01/14/10 08/08/22 Elisabet Aponte RN [address] [place] [address] Project Geologist 06/29/21 04/09/22 documented as of this encounter
--- OUTSIDE RECORDS SUMMARY | 2024-02-08 01:11 | XMS_ITS | Encounter Summary ---
Author Organization [facility] Address [address] [place] [address] Care Team Providers Care Order Processing Manager Name Role Phone Otis Gee MD Primary Care Provider Joseph easley Encounter Details Date Type Department Care Team ([facility] st Contact Info) Description 04/21/2022 Patient Outreach [facility] Family Medicine - [facility] [address] [place] [address] Vicky Chamberlain LICSW 130 [facility] [address] [place] [phone] Social History Tobacco Use Types Packs/Day Years [...] slept in a half-way (including now)? No 03/14/2022 Interpersonal Safety Answer [...] Progress Notes * Vicky Chamberlain, LATRICE - 04/21/2022 1054 EST [facility] Fiberglass Machine Operator Care Coordination Fiberglass Machine Operator spoke with Kenyatta on 04/21/2022 in order to coordinate care. Outgoing call to Kenyatta to arrange home visit to go over her questions about insurance coverage and paperwork. PLAN: Next Fiberglass Machine OperatorDope Edger: 04/27/2022 at 1:00pm, Home visit. LATRICE ENCISO 04/21/2022 10:54 documented in this encounter Plan of Treatment Upcoming Encounters Date Type Department Care Team (Late st Contact Info) Description 05/19/2024 11:00 EST Office Visit [facility] Family Medicine [address], [address] [address] Dane Rick MD [address] [place] [phone] documented as of this encounter Visit Diagnoses Not on filedocumented in this encounter Care Teams Order Processing Manager Relationship Specialty Start Date End Date Otis Gee MD PCP - General 01/14/10 08/08/22 documented as of this encounter
--- OUTSIDE RECORDS SUMMARY | 2024-02-08 01:11 | XMS_ITS | Encounter Summary ---
Author Organization [facility] Address [address] [place] [address] Care Team Providers Care Claim Administrator Name Role Phone Otis Gee MD Primary Care Provider Elisabet Mathews RN Unavailable [phone] Reason for Visit * Reason Onset Date Comments Requesting Sooner Appointment 08/26/2021 Encounter Details Date Type Department Care Team ([facility] st Contact Info) Description 08/26/2021 Telephone [place] [address], [facility] 2 [place] [address] Otis Gee MD Requesting Sooner Appointment Social History Tobacco Use Types Packs/Day Years [...] * Telephone Encounter - Radha Carmen - 08/31/2021 1607 EDT Patient did not want to see a different provider- Scheduled with TC on 09/15. * Telephone Encounter - Adam Raman MA - 08/31/2021 1518 EDT To PSS to schedule. Acute okay if necessary: 30 min ( do not overlap). Maybe other provider? * Telephone Encounter - Otis Gee MD - 08/31/2021 1235 EDT Not sure where to put her. If there is an acute... always needs 30 minutes... maybe other provider? * Telephone Encounter - Nupur Benson RN - 08/31/2021 1046 EDT Up to TC- can you fit in? Or should they schedule with /WC? * Telephone Encounter - Marta Oh - 08/26/2021 1649 EDT Due to provider schedule change we had to cancel apt on 09/13. Patient requesting sooner apt for knee pain & discuss medications. Is acute ok? documented in this encounter Plan of Treatment Upcoming Encounters Date Type Department Care Team (Late st Contact Info) Description 05/19/2024 11:00 EST Office Visit [facility] Family Medicine [facility] [address], [address] [place] [address] Dane Rick MD [address] [place] [address] 2 [place] [address] documented as of this encounter Visit Diagnoses Not on filedocumented in this encounter Care Teams Claim Administrator Relationship Specialty Start Date End Date Otis Gee MD PCP - General 01/14/10 08/08/22 Elisabet Aponte RN [address] [place] [address],[facility] 2 [place] [address] Western Philosophy Professor 06/29/21 04/09/22 documented as of this encounter
--- OUTSIDE RECORDS SUMMARY | 2024-02-08 01:11 | XMS_ITS | Encounter Summary ---
Author Organization [facility] Address [address] [place] [address] Care Team Providers Care X Ray Equipment Servicer Name Role Phone Otis Gee MD Primary Care Provider Shondajeannette Elisa Vanessa TOOL REPAIRER Unavailable [phone] Dane Rick MD Primary Care Provider [phone] Leticia Lieberman Unavailable Mendoza Guzmán MD Unavailable [phone] Reason for Visit * Reason Onset Date Comments Appointment Related 04/24/2022 Encounter Details Date Type Department Care Team (Late st Contact Info) Description 04/24/2022 Telephone [facility] [place] - [facility] [address] [place] [address] Otis Gee MD Appointment Related Social History [...] slept in a assisted (including now)? No 03/14/2022 Interpersonal Safety Answer [...] Miscellaneous Notes * Telephone Encounter - Genna Womack - 04/24/2022 1114 EST Patient is needing to reschedule her appointment with elisa when you get a chance please call her back documented in this encounter Plan of Treatment Upcoming Encounters Date Type Department Care Team (Late st Contact Info) Description 05/19/2024 11:00 EST Office Visit [facility] Family [address], [facility] 2 [place] [address] Dane Rick MD [address] [place] [address] 2 [place] [address] documented as of this encounter Visit Diagnoses Not on filedocumented in this encounter Additional Health Concerns Infection Onset Date Last Indicated Resolved Time R/O COVID-19 08/13/2023 08/13/2023 08/13/2023 20:0 7 EDT documented as of this encounter Care Teams X Ray Equipment Servicer Relationship Specialty Start Date End Date Otis Gee MD PCP - General 01/14/10 08/08/22 Dane Rick MD [address] [place] [phone] PCP - General Family Medicine - Primary Care 08/09/22 Elisa Chamberlain [facility] Epic Trainer 06/12/22 01/22/24 Leticia Lieberman [address] [place] [phone] General Surgery 04/03/23 Mendoza Guzmán MD [address] [place] [address] [address] [place] [address] Otolaryngology 04/03/23 documented as of this encounter
--- OUTSIDE RECORDS SUMMARY | 2024-02-08 01:11 | XMS_ITS | Encounter Summary ---
Author Organization [facility] Address [address] [place] [address] Care Team Providers Care Senior Manager Quality Assurance Name Role Phone Otis Gee MD Primary Care Provider Joseph ilvijay Encounter Details Date Type Department Care Team ([facility] st Contact Info) Description 05/31/2022 Patient Outreach [facility] Family [place] - [facility] [address] [place] [address] Vicky Chamberlain LICSW 130 [facility] [address] [place] [phone] Social History Tobacco Use Types Packs/Day Years [...] Progress Notes * Vicky Chamberlain, LATRICE - 05/31/2022 0912 EST [facility] Payroll Care Coordination Manager Payroll spoke with Kenyatta on 05/31/22 in order to coordinate care. Continues to try to schedule dental appointment. States that she will call today to make an initial appointment today, she will bring estimate to labor relations manager to apply for assistance. PLAN: Next Manager PayrollBeam House Inspector: 06/21/[address] [facility] Supplement application LATRICE ENCISO 05/31/2022 9:13 documented in this encounter Plan of Treatment Upcoming Encounters Date Type Department Care Team (Late st Contact Info) Description 05/19/2024 11:00 EST Office Visit [facility] Family Medicine [address], [facility] 2 [place], [place] [phone] Dane Rick MD [address] [place] [phone] documented as of this encounter Visit Diagnoses Not on filedocumented in this encounter Care Teams Senior Manager Quality Assurance Relationship Specialty Start Date End Date Otis Gee MD PCP - General 01/14/10 08/08/22 documented as of this encounter
--- OUTSIDE RECORDS SUMMARY | 2024-02-08 01:11 | XMS_ITS | Encounter Summary ---
Author Organization [facility] Address [address] [place] [address] Care Team Providers Care Primary Operator Name Role Phone Otis Gee MD Primary Care Provider Elisabet Mathews RN Unavailable [phone] Reason for Visit * Reason Onset Date Comments Results 09/20/2021 Encounter Details Date Type Department Care Team ([facility] Contact Info) Description 09/20/2021 Telephone [place] [address] [address] , [facility] 2 [place] [address] Otis Gee MD Results Social History Tobacco Use Types Packs/Day [...] Miscellaneous Notes * Telephone Encounter - Nupur Benson RN - 09/20/2021 1048 EDT Patient notified. * Telephone Encounter - Nupur Benson RN - 09/20/2021 0829 EDT ----- Message from Otis Gee MD sent at 09/19/2021 17:40 EDT ----- Call. No problems seen in her mid tibial region. 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 Family Medicine [place] [address] [address], [address] [place] [address] Dane Rick MD [address] [place] [address] [address] [place] [address] documented as of this encounter Visit Diagnoses Not on filedocumented in this encounter Care Teams Primary Operator Relationship Specialty Start Date End Date Otis Gee MD PCP - General 01/14/10 08/08/22 Elisabet Aponte RN [address] [facility] 2 [place] [address] Sap Portal Architect 06/29/21 04/09/22 documented as of this encounter
--- OUTSIDE RECORDS SUMMARY | 2024-02-08 01:11 | XMS_ITS | Encounter Summary ---
Author Organization [facility] Address [address] [place] [address] Care Team Providers Care Freezer Person Name Role Phone Otis Gee MD Primary Care Provider Elisabet Mathews RN Unavailable [phone] Reason for Visit * Reason Onset Date Comments Appointment Related 02/13/2022 Encounter Details Date Type Department Care Team ([facility] Contact Info) Description 02/13/2022 Telephone [facility] Adult Neurology - [facility] [address] [place], [place] [phone] Janell Jj, TELEPHONE STATION REPAIRER [address] [place] [address] 2 [place] [address] Appointment Related Social History Tobacco [...] Miscellaneous Notes * Telephone Encounter - Bre Claros - 02/13/2022 0940 EST Kenyatta called in this morning to schedule a follow up with Janell Jj. She believes that Janellwanted to see her in April not in July. The patient has scheduled a 1 year follow up for 2022 at 3:00 pm on site. Appointment was scheduled off the recall list. Thank you documented in this encounter Plan of Treatment Upcoming Encounters Date Type Department Care Team (Late st Contact Info) Description 05/19/2024 11:[address] [facility] Family Medicine [address], [address] [place] [address] Dane Rick MD [address] [place] [address] 2 [place] [address] documented as of this encounter Visit Diagnoses Not on filedocumented in this encounter Care Teams Freezer Person Relationship Specialty Start Date End Date Otis Gee MD PCP - General 01/14/10 08/08/22 Elisabet Aponte RN [address] [place] [address],[facility] 2 [place] [address] Fire Alarm Dispatcher 06/29/21 04/09/22 documented as of this encounter
--- OUTSIDE RECORDS SUMMARY | 2024-02-08 01:11 | XMS_ITS | Encounter Summary ---
Author Organization [facility] Address [address] [place] [address] Care Team Providers Care Air Drill Operator Name Role Phone Otis Gee MD Primary Care Provider Elisabet Mathews RN Unavailable [phone] Reason for Visit * Radiology Services (Routine/Next Available) - Authorization Not Required Specialty Diagnoses / Procedures Referred By Contac t Referred To Contact Diagnoses Pain in left tibia Procedures XR TIBIA FIBULA LEFT 2 VIEWS XR TIBIA FIBULA RIGHT 2 VIEWS Otis Gee MD [facility] Referral ID Status Reason Start Date Expiration Date Visits Requested Visits Authorized [id number] Authorization Not Required 09/15/2021 1 1 Encounter Details Date Type Department Care Team (Latest Contact Info) Description 09/19/2021 9:23 EDT - 09/19/2021 23:59 EDT Hospital Encounter [facility] Xray [address] [place], [place] [address] Pain in left tibia Discharge Disposition: Home or Self Care Social [...] Date aspirin 81 mg EC tablet Take 81 mg by mouth every 48 hours. 06/29/2022 atorvastatin (LIPITOR) 40 mg tablet Take 1 Tablet by mouth daily. 90 Tablet 3 09/15/2021 06/29/2022 buPROPion (WELLBUTRIN SR) 150 mg SR tablet Take 1 tablet by mouth twice daily 180 Tablet 07/27/2021 11/30/2021 furosemide (LASIX) 20 mg tablet TAKE 2 TABLETS BY MOUTH IN THE MORNING AND 1 TABLET IN THE AFTERNOON 270 Tablet 07/27/2021 11/30/2021 LORazepam (ATIVAN) 0.5 mg tablet 3 Times a Day as Needed as needed for ANXIETY 09/19/2022 losartan (COZAAR) 100 mg tablet Take 1 tablet by mouth once daily 90 Tablet 09/16/2021 01/16/2022 documented as of this encounter Discharge Disposition Disposition Code Departure Means Destination Home or Self Care documented in this encounter Miscellaneous Notes * Result Encounter Note - Otis Gee MD - 09/19/2021 0945 EDT Call. No problems seen in her mid tibial region. Some knee and ankle joint arthritis only documented in this encounter Plan of Treatment Upcoming Encounters Date Type Department Care Team (Late st Contact Info) Description 05/19/2024 11:00 EST Office Visit [facility] Family Medicine [facility] [address], [address] [place] [address] Dane Rick MD [address] [place] [address] documented as of this encounter Procedures Procedure Name Priority Date/Time Associated Diagnosis Comments XR TIBIA FIBULA LEFT 2 VIEWS Routine 09/19/2021 9:42 EDT Pain in left tibia documented in this encounter Results * XR TIBIA FIBULA LEFT 2 VIEWS (09/19/2021 9:42 EDT) Anatomical Region Laterality Modality Lower Extremities Computed Radio graphy 09/19/2021 14:0 8 EDT Impressions 09/19/2021 14:08 EDT No acute bone or joint abnormality. Narrative 09/19/2021 14:08 EDT INDICATION: tender anterior tibia. COMPARISON: None. TECHNIQUE: 2 views of the left lower leg were obtained. FINDINGS: There is mild swelling of the lower leg soft tissues. Bone density is mildly diminished. No fracture or osteonecrosis is identified. 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 Procedure Note Kai Duff MD - 09/19/2021 INDICATION: tender anterior tibia. COMPARISON: None. TECHNIQUE: 2 views of the left lower leg were obtained. FINDINGS: There is mild swelling of the lower leg soft tissues. Bone density ismildly diminished. No fracture or osteonecrosis is identified. Mild tomoderate osteoarthritis is present within the left knee and anklejoints. IMPRESSION No acute bone or joint abnormality. Otis Gee MD IMG DIAGNOSTIC IMAGI NG ORDERABLES documented in this encounter Visit Diagnoses Diagnosis Pain in left tibia documented in this encounter Care Teams Air Drill Operator Relationship Specialty Start Date End Date Otis Gee MD PCP - General 01/14/10 08/08/22 Elisabet Aponte RN [address] [place] [address] Park Guide 06/29/21 04/09/22 documented as of this encounter
--- OUTSIDE RECORDS SUMMARY | 2024-02-08 01:11 | XMS_ITS | Encounter Summary ---
Author Organization [facility] Address [address] [place] [address] Care Team Providers Care System Development Manager Name Role Phone Otis Gee MD Primary Care Provider Elisabet Mathews RN Unavailable [phone] Encounter Details Date Type Department Care Team ([facility] st Contact Info) Description 09/19/2021 10:00 EDT Phlebotomy Only [facility] - Outpatient Phlebotomy Drawing [address] [place] [address] Lab, [facility] Op Phlebotomy Temporal pain Social History Tobacco Use Types Packs/Day Years [...] Info) Description 05/19/2024 11:00 EST Office Visit [facility] Family Medicine [address], [address] [place] [address] Dane Rick MD [address] [place] [phone] documented as of this encounter Procedures Procedure Name Priority Date/Time Associated Diagnosis Comments C REACTIVE PROTEIN Routine 09/19/2021 9:46 EDT Temporal pain documented in this encounter Results * C REACTIVE PROTEIN (09/19/2021 9:46 EDT) C-Reactive Protein <5.0 <10.0 mg/L 09/19/2021 10:43 EDT [facility] Blood VENOUS BLOOD / Unknown Venipuncture / Unknown 09/19/2021 9:46 EDT 09/19/2021 10:09 EDT Mendoza Guzmán MD CHEMISTRY & BLOOD GA S ORDERABLES [facility] [address] [place] [address] documented in this encounter Visit Diagnoses Diagnosis Temporal pain Headache documented in this encounter Care Teams System Development Manager Relationship Specialty Start Date End Date Otis Gee MD PCP - General 01/14/10 08/08/22 Elisabet Aponte RN [address] [facility] [place] [address] Funeral Planner 06/29/21 04/09/22 documented as of this encounter
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
--- OUTSIDE RECORDS SUMMARY | 2024-02-08 01:11 | XMS_ITS | Encounter Summary ---
Author Organization [facility] Address [address] [place] [address] Care Team Providers Care Filling Winder Name Role Phone Otis Gee MD Primary Care Provider Unava ilable Reason for Visit * Reason Onset Date Comments Patient Outreach 04/11/2022 Letter 04/11/2022 Encounter Details Date Type Department Care Team ([facility] st Contact Info) Description 04/11/2022 Telephone [facility] Medicine [facility] [address], [facility] [address] [place], [place] [id number] Otis Gee MD Patient Outreach; Letter Social History Tobacco Use Types Packs/Day [...] slept in a halfway (including now)? No 03/14/2022 Interpersonal Safety Answer [...] Telephone Encounter - Bre Day RN - 04/13/2022 1616 EST See 04/11 TE pt spoke to Patient Outreach with CAROL ANN Smith, concerns in note below were addressed. * Telephone Encounter - Marta Oh - 04/11/2022 1543 EST Patient was told to get a letter of medical necessity from [facility] for her to get dental work done. She believes her teeth are causing her headaches on the L side of her head. Is there anything [facility] can do to help her? * Telephone Encounter - Jeanie Fam - 04/11/2022 0935 EST Pt's this week and pt is a little confused about the details but is looking to get some dental work done. Pt says she has spoken to a nurse in our office before about the details. Requested call back to discuss. documented in this encounter Plan of Treatment Upcoming Encounters Date Type Department Care Team (Late st Contact Info) Description 05/19/2024 11:00 EST Office Visit [facility] Family Medicine [address], [facility] [address] [place], [place] [address] Dane Rick MD [address] [place] [address] [address] [place] [address] documented as of this encounter Visit Diagnoses Not on filedocumented in this encounter Care Teams Filling Winder Relationship Specialty Start Date End Date Otis Gee MD PCP - General 01/14/10 08/08/22 documented as of this encounter
--- OUTSIDE RECORDS SUMMARY | 2024-02-08 01:11 | XMS_ITS | Encounter Summary ---
Author Organization [facility] Address [address] [place] [address] Care Team Providers Care Button Inspector Name Role Phone Otis Gee MD Primary Care Provider Elisabet Mathews RN Unavailable [phone] Reason for Referral * Radiology Services (Routine/Next Available) - New Request Specialty Diagnoses / Procedures Referred By Franky ferreira Referred To Contact Diagnoses Thyroid nodule Procedures US THYROID/NECK Mendoza Guzmán MD [address] [facility] [address] [place] [address] Referral ID Status Reason Start Date Expiration Date V isits Requested Visits Authorized [id number] New Request 09/29/2020 1 1 Reason for Visit * Radiology Services (Routine/Next Available) - New Request Specialty Diagnoses / Procedures Referred By Franky ferreira Referred To Contact Diagnoses Thyroid nodule Procedures US THYROID/NECK Mendoza Guzmán MD [address] [facility] [address] [place] [address] Referral ID Status Reason Start Date Expiration Date V isits Requested Visits Authorized [id number] New Request 09/29/2020 1 1 Encounter Details Date Type Department Care Team (Latest Contact Info) Description 09/13/2021 12:17 EDT - 09/13/2021 23:59 EDT Hospital Encounter [facility] Ultrasound [address] [place] [address] Thyroid nodule Discharge Disposition: Home or Self [...] by mouth once daily 90 Tablet 3 07/13/2021 09/15/2021 buPROPion (WELLBUTRIN SR) 150 mg SR tablet [...] 1 Tablet by mouth daily. 90 Tablet 06/21/2021 09/16/2021 documented as of this encounter Discharge Disposition Disposition Code Departure Means Destination Home or Self Care documented in this encounter Plan of Treatment Upcoming Encounters Date Type Department Care Team (Late st Contact Info) Description 05/19/2024 11:00 EST Office Visit [facility] Family Medicine [facility] [address] [place] [address] Dane Rick MD [address] [facility] [address] [place] [address] documented as of this encounter Procedures Procedure Name Priority Date/Time Associated Diagnosis Comments US THYROID/NECK Routine 09/13/2021 12:56 EDT Thyroid nodule documented in this encounter Results * US THYROID/NECK (09/13/2021 12:56 EDT) Anatomical Region Laterality Modality Neck Ultrasound 09/13/2021 13:1 5 EDT Impressions 09/13/2021 13:15 EDT Stable examination. Multinodular thyroid, not significant changed compared to prior. This includes a 2.9 cm TI RADS category 4 nodule in the left thyroid lobe. Please see ACR recommendations below. ACR TI-RADS Categories and Recommendations: TR 1 (0 points) Benign: No FNA or Follow up. TR 2 (2 points) Not suspicious: No FNA or Follow up. TR 3 (3 points) Mildly suspicious: FNA if >/= 2.5 cm. Follow if >/= 1.5 cm. Follow at 1,3 and 5 years. TR 4 (4-6 points)Moderately suspicious: FNA if >/= 1.5 cm. Follow if >/= 1.0 cm. Follow at 1, 2, 3 and 5 years. TR 5 (7+ points)Highly suspicious: FNA if >/= 1.0 cm. Follow if >/= 0.5 cm. Follow at 1, 2, 3, 4 and 5 years. Narrative 09/13/2021 13:15 EDT US THYROID/NECK ?? Signs and Symptoms/Comments: ??follow up thyroid nodule(s) Comparison: 04/14/2021. Technique: Thyroid ultrasound was performed with color Doppler imaging. FINDINGS: RIGHT THYROID LOBE: Size: 4.9 x 2.1 x 2.1 cm. Echotexture: Heterogeneous. Nodules: Nodule 1: Upper right thyroid lobe. 0.8 x 0.7 x 1.0 cm (previously 0.8 x 0.6 x 1.0 cm). Solid. Hypoechoic. Smooth margins. Wider than tall. No echogenic foci. TI RADS 4. Nodule 2: Mid right thyroid lobe. 1.3 x 0.9 x 1.0 cm (previously 1.3 x 0.8 x 1.1 cm). Solid. Portions hypoechoic. Smooth and ill-defined margins. Wider than tall. No echogenic foci. TI RADS 4. LEFT THYROID LOBE: Size: 6.6 x 2.5 x 3.4 cm. Echotexture: Heterogeneous. Nodules: Nodule 1: Upper left thyroid lobe. 1.3 x 1.3 x 1.1 cm (previously 1.4 x 1.4 x 1.2 cm). Solid. Hypoechoic. Smooth margins. Not taller than wide. No echogenic foci. TI RADS 4. Nodule 2: Upper left thyroid lobe. 1.1 x 1.o x 1.0 cm (previously 1.1 x 1.1 x 1.0 cm). Solid. Isoechoic. Smooth and ill-defined margins. Not taller than wide. No echogenic foci. TI RADS 3. Nodule 3: Lower left thyroid lobe. 2.9 x 2.2 x 2.1 cm (previously 2.6 x 2.2 x 2.1 cm, but 3.1 x 2.2 x 2.2 cm on the study dated 09/03/2020). Solid. Slightly hypoechoic. Smooth margins. Wider than tall. No echogenic foci. TI RADS 4. THYROID ISTHMUS: Size: 0.6 cm. Echotexture: Heterogeneous. Nodules: None. Procedure Note Rylan Thapa MD - 09/13/2021 US THYROID/NECK Signs and Symptoms/Comments: follow up thyroid nodule(s) Comparison: 04/14/2021. Technique: Thyroid ultrasound was performed with color Doppler imaging. FINDINGS: RIGHT THYROID LOBE: Size: 4.9 x 2.1 x 2.1 cm. Echotexture: Heterogeneous. Nodules: Nodule 1: Upper right thyroid lobe. 0.8 x 0.7 x 1.0 cm (previously 0.8 x0.6 x 1.0 cm). Solid. Hypoechoic. Smooth margins. Wider than tall. Noechogenic foci. TI RADS 4. Nodule 2: Mid right thyroid lobe. 1.3 x 0.9 x 1.0 cm (previously 1.3 x 0.8x 1.1 cm). Solid. Portions hypoechoic. Smooth and ill-defined margins.Wider than tall. No echogenic foci. TI RADS 4. LEFT THYROID LOBE: Size: 6.6 x 2.5 x 3.4 cm. Echotexture: Heterogeneous. Nodules: Nodule 1: Upper left thyroid lobe. 1.3 x 1.3 x 1.1 cm (previously 1.4 x1.4 x 1.2 cm). Solid. Hypoechoic. Smooth margins. Not taller than wide. Noechogenic foci. TI RADS 4. Nodule 2: Upper left thyroid lobe. 1.1 x 1.o x 1.0 cm (previously 1.1 x1.1 x 1.0 cm). Solid. Isoechoic. Smooth and ill-defined margins. Nottaller than wide. No echogenic foci. TI RADS 3. Nodule 3: Lower left thyroid lobe. 2.9 x 2.2 x 2.1 cm (previously 2.6 x2.2 x 2.1 cm, but 3.1 x 2.2 x 2.2 cm on the study dated 09/03/2020). Solid.Slightly hypoechoic. Smooth margins. Wider than tall. No echogenic foci.TI RADS 4. THYROID ISTHMUS: Size: 0.6 cm. Echotexture: Heterogeneous. Nodules: None. IMPRESSION Stable examination. Multinodular thyroid, not significant changed comparedto prior. This includes a 2.9 cm TI RADS category 4 nodule in the leftthyroid lobe. Please see ACR recommendations below. ACR TI-RADS Categories and Recommendations: TR 1 (0 points) Benign: No FNA or Follow up. TR 2 (2 points) Not suspicious: No FNA or Follow up. TR 3 (3 points) Mildly suspicious: FNA if >/= 2.5 cm. Follow if >/= 1.5cm. Follow at 1,3 and 5 years. TR 4 (4-6 points)Moderately suspicious: FNA if >/= 1.5 cm. Follow if >/=1.0 cm. Follow at 1, 2, 3 and 5 years. TR 5 (7+ points)Highly suspicious: FNA if >/= 1.0 cm. Follow if >/= 0.5cm. Follow at 1, 2, 3, 4 and 5 years. Mendoza Guzmán MD IMG US ORDERABLES documented in this encounter Visit Diagnoses Diagnosis Thyroid nodule Nontoxic uninodular goiter documented in this encounter Care Teams Button Inspector Relationship Specialty Start Date End Date Otis Gee MD PCP - General 01/14/10 08/08/22 Elisabet Aponte RN [address] [place] [address] Wallpaper Consultant 06/29/21 04/09/22 documented as of this encounter
--- OUTSIDE RECORDS SUMMARY | 2024-02-08 01:11 | XMS_ITS | Encounter Summary ---
Author Organization [facility] Address [address] [place] [address] Care Team Providers Care Website Admin Name Role Phone Otis Gee MD Primary Care Provider Joseph Vicky VanessaSW Unavailable [phone] Reason for Visit * Reason Onset Date Comments Medication Questions 06/21/2022 Encounter Details Date Type Department Care Team ([facility] Contact Info) Description 06/21/2022 Telephone [facility] Medicine [place] [address], [facility] [address] [place] [address] Bre Day, group home worker Questions Social History Tobacco Use Types Packs/Day [...] slept in a usp (including now)? No 05/02/2022 Interpersonal Safety Answer [...] Encounter - Bre Day RN - 06/21/2022 1033 EDT Pt notified per JFW note and verbalized understanding. * Telephone Encounter - Roberto-Ashley Greco NP - 06/21/2022 1026 EDT She can stop the baby aspirin for a week. That is the only one that I see on her med list. Thanks * Telephone Encounter - Bre Day RN - 06/21/2022 0905 EDT Pt is having 1 or more teeth removed tomorrow and is wondering if any of her medications put her atrisk for increased bleeding. Pt is concerned because when she gets a little cut she feels she bleeds a lot. JFW-can you please advise documented in this encounter Plan of Treatment Upcoming Encounters Date Type Department Care Team (Late st Contact Info) Description 05/19/2024 11:00 EST Office Visit [facility] Family Medicine [address], [facility] [address] [place] [address] Dane Rick MD [address] [place] [address] [place] [phone] documented as of this encounter Visit Diagnoses Not on filedocumented in this encounter Care Teams Website Admin Relationship Specialty Start Date End Date Otis Gee MD PCP - General 01/14/10 08/08/22 Vicky Chamberlain LICSW Recovery Room Nurse 06/12/22 01/22/24 documented as of this encounter
--- OUTSIDE RECORDS SUMMARY | 2024-02-08 01:11 | XMS_ITS | Encounter Summary ---
Author Organization Health system Address [address] [place] [address] Care Team Providers Care Premium Cancellation Clerk Name Role Phone Otis Gee MD Primary Care Provider Elisabet Mathews RN Unavailable [phone] Reason for Visit * Reason Onset Date Comments Tick Removal 08/23/2021 Encounter Details Date Type Department Care Team ([facility] Contact Info) Description 08/23/2021 Telephone [place] [address] , [facility] [address] [place] [address] Otis Gee MD Tick Removal Social History Tobacco Use Types Packs/Day Years [...] encounter Miscellaneous Notes * Telephone Encounter - Otis Gee MD - 08/23/2021 1111 EDT noted * Telephone Encounter - Bre Day RN - 08/23/2021 1036 EDT [facility] Primary Care SBAR Nurse Triage call note: Situation: Pt found a tick on her leg and it left the most minute red prick pat that is a littletender if scratched. Area was cleaned with alcohol. Background: Tick found on leg last evening, pt unsure if it was actually imbedded. Pt thinks the tick would have gotten on her yesterday. Assessment: tick bite Recommendation: Pt advised that since the tick was on for less than 36 hours, abx are not recommended. Pt aware to watch for fever, muscle aches, fatigue, joint pain, red bulls eye rash and to call this office back if she develops any of these SXS. * Telephone Encounter - Karla Mcrae - 08/23/2021 0904 EDT Patient was bit by a tick on her lower leg. When she ran her fingernail across it there was a shocksent up her leg. documented in this encounter Plan of Treatment Upcoming Encounters Date Type Department Care Team (Late st Contact Info) Description 05/19/2024 11:00 EST Office Visit [facility] Family Medicine [address], [facility] [address] [place] [address] Dane Rick MD [address] [place] [address] [address] [place] [phone] documented as of this encounter Visit Diagnoses Not on filedocumented in this encounter Care Teams Premium Cancellation Clerk Relationship Specialty Start Date End Date Otis Gee MD PCP - General 01/14/10 08/08/22 Elisabet Aponte RN [address] [place] [address],[address] [place] [address] Armor Reconnaissance Vehicle Driver 06/29/21 04/09/22 documented as of this encounter
--- OUTSIDE RECORDS SUMMARY | 2024-02-08 01:11 | XMS_ITS | Encounter Summary ---
Author Organization [facility] Address [address] [place] [address] Care Team Providers Care Entertainment Manager Name Role Phone Otis Gee MD Primary Care Provider Elisabet Mathews RN Unavailable [phone] Reason for Referral * Radiology Services (Routine/Next Available) - New Request Specialty Diagnoses / Procedures [facility] Referred To Contact Diagnoses Thyroid nodule Procedures US THYROID/NECK Mendoza Guzmán MD [address] [place] [phone] [facility] Referral ID Status Reason Start Date Expiration Date V isits Requested Visits Authorized [id number] New Request 09/15/2021 1 1 Reason for Visit * Reason Comments Follow-up U/S Encounter Details Date Type Department Care Team ([facility] Contact Info) Description 09/15/2021 10:20 EDT Office Visit [facility] ENT [address] [place] [address] Mendoza Guzmán MD [address] [place] [phone] Thyroid nodule (Primary Dx); Temporal pain Social History Tobacco Use Types [...] Sign Reading Time Taken Comments Blood Pressure 120/60 09/15/2021 1017 EDT Pulse 101 09/15/2021 1017 EDT Temperature - - Respiratory Rate - - Oxygen Saturation - - Inhaled Oxygen Concentration - - Weight 77.1 kg (170 lb) 09/15/2021 1017 EDT Height 152.4 cm (5') 09/15/2021 1017 EDT Body Mass Index 33.2 09/15/2021 1017 EDT documented in this encounter Functional Status [...] Progress Notes * Mendoza Guzmán MD - 09/15/2021 1020 EDT REASON FOR VISIT: Follow-up thyroid nodules SUBJECTIVE: Patient complaining of left temporal pain and headache OBJECTIVE: Tenderness to palpation over the left temporomandibular joint. Thyroid ultrasound was read and reviewed with the patient. IMPRESSION ?? Stable examination. Multinodular thyroid, not significant changed compared to prior. This includes a 2.9 cm TI RADS category 4 nodule in the left thyroid lobe. Please see ACR recommendations below. ?? The patient had previous benign FNAs of both left and right thyroid nodules in August 2019. ASSESSMENT: Stable thyroid nodules. 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 Rule out temporal arteritis. PLAN: CRP was ordered. Follow-up with repeat ultrasound in 1 year or as needed. documented in this encounter Plan of Treatment Upcoming Encounters Date Type Department Care Team (Late st Contact Info) Description 05/19/2024 11:00 EST Office Visit [address], [address] [place] [address] Dane Rick MD [address] [place] [address] [place] [phone] documented as of this encounter Results * US THYROID/NECK (01/23/2023 [...] THIS DOCUMENT HAS BEEN ELECTRONICALLY SIGNED BY ANITHA WHITTINGTON MD FOR ANY QUESTIONS OR CONCERNS REGARDING THIS REPORT PLEASE CALL [facility] AT [phone] Narrative 01/24/2023 11:15 EDT PROCEDURE INFORMATION: Exam: [...] TIRADS 4. Isthmus: Not thickened. Procedure Note Anitha Whittington MD - 01/24/2023 PROCEDURE INFORMATION: Exam: [...] THIS DOCUMENT HAS BEEN ELECTRONICALLY SIGNED BY ANITHA WHITTINGTON MD FOR ANY QUESTIONS OR CONCERNS REGARDING THIS REPORT PLEASE CALL [facility] [phone] Mendoza Guzmán MD IMG US ORDERABLES * C REACTIVE PROTEIN (09/19/2021 9:46 EDT) C-Reactive Protein <5.0 <10.0 mg/L 09/19/2021 10:43 EDT [facility] Blood VENOUS BLOOD / Unknown Venipuncture / Unknown 09/19/2021 9:46 EDT 09/19/2021 10:09 EDT Mendoza Guzmán MD CHEMISTRY & BLOOD GA S ORDERABLES [facility] [address] [place] [address] documented in this encounter Visit Diagnoses Diagnosis Thyroid nodule- Primary Nontoxic uninodular goiter Temporal pain Headache Thyroid nodule Nontoxic uninodular goiter documented in this encounter Care Teams Entertainment Manager Relationship Specialty Start Date End Date Otis Gee MD PCP - General 01/14/10 08/08/22 Elisabet Aponte RN [address] [place] [address] Results Engineer 06/29/21 04/09/22 documented as of this encounter
--- OUTSIDE RECORDS SUMMARY | 2024-02-08 01:11 | XMS_ITS | Encounter Summary ---
Author Organization [facility] Address [address] [place] [address] Care Team Providers Care Explosives Handler Name Role Phone Otis Gee MD Primary Care Provider Joseph ilvijay Encounter Details Date Type Department Care Team ([facility] st Contact Info) Description 05/15/2022 Patient Outreach [facility] [place] - [facility] [address] [place] [address] Vicky Chamberlain LICSW [address] [facility] [address] [place] [phone] Social History Tobacco Use Types Packs/Day Years [...] this encounter Progress Notes * Vicky Chamberlain, CHEF DE CUISINE - 05/15/2022 1137 EST [facility] Care Management Follow Up Payroll Coordinator followed up with Kenyatta by phone for [employer]/health insurance update. TOPIC OF CONVERSATION: ??? Reviewed assessment and plan from previous visit with patient. ??? Engaged patient in conversation related to positive behavior change, self- management, goal setting and action planning using motivational interviewing and active listening. ??? Kenyatta states that she recently had a inapropriate conversation with the home, that has left her with some triggers. o Discussed this situation at length. ??? Kenyatta states that [employer] reduced their benefit as she is now one person, with one income. ??? Kenyatta states that she contacted a local dentist who sent a prescription for an antibiotic ??? Scheduled home visit for 05/24/22 to complete health insurance application. o Possibly qualified for Medicaid / Medicare ?? Kenyatta discussed with this career technical education instructor some medical symptoms that she has been experiencing. ?? States yellowing of her eyes, pointed out by her daughter in-law. ?? Struggle with bowel movements, states that sometime she won't go for a few days and when she does not much comes out, states taking stool softeners and fiber. ?? States high tolerance for pain, states that I walked on broken leg for weeks before realizing Ishoud have it looked at, it never really hurt. (as an example) ?? electrical construction project manager suggested that she either go to urgent care or call the triage nurses at the office. ?? Kenyatta states I don't want to make a mountain out of a mole hill, and for it to sheet turner to benothing Prioritized Patient Identified Goals: 1. electrical construction project manager and Kenyatta will complete [employer] application to verify her qualificationfor a [place] supplemental or Medicaid Achievement towards goals: In progress appointment for 05/24/22 at 8am 2. Kenyatta will follow through with dental recommendations and appointment electrical construction project manager will support with researching assistance for paying for dental work. Achievement towards goals: In progress Plan: Complete [employer] application. Next Payroll CoordinatorDairy Technologist: 05/24/2022 at 8:00am, Home Visit LATRICE ENCISO 05/15/2022 11:37 documented in this encounter Plan of Treatment Upcoming Encounters Date Type Department Care Team (Late st Contact Info) Description 05/19/2024 11:00 EST Office Visit [address], [facility] 2 [place] [address] Dane Rick MD [address] [place] [phone] documented as of this encounter Visit Diagnoses Not on filedocumented in this encounter Care Teams Explosives Handler Relationship Specialty Start Date End Date Otis Gee MD PCP - General 01/14/10 08/08/22 documented as of this encounter
--- OUTSIDE RECORDS SUMMARY | 2024-02-08 01:11 | XMS_ITS | Encounter Summary ---
Author Organization [facility] Address [address] [place] [address] Care Team Providers Care Vocational Rehabilitation Counselor Name Role Phone Otis Gee MD Primary Care Provider Vicky Gee Unavailable [phone] Encounter Details Date Type Department Care Team ([facility] st Contact Info) Description 06/14/2022 Patient Outreach [facility] [place] - [facility] [address] [place] [address] Vicky Chamberlain LICSW [address] [place] [address] [address] [place], [place] [id number] Social History Tobacco Use Types Packs/Day Years [...] this encounter Progress Notes * Vicky Chamberlain, BEVERAGE HOST - 06/14/2022 1632 EDT [facility] Infrastructure Manager Care Coordination Infrastructure Manager spoke with Kenyatta on 06/23/22 in order to coordinate care. RADHA spoke with [employer], Kenyatta may be qualified for a General Assistance Voucher, which would cover extractions only. Worker states that Kenyatta's SNAP worker is Miroslava Drew [phone] and could assist with the [place] voucher application. [facility], where Kenyatta went for intital, does not accept [place] voucher. PLAN: CM informed Kenyatta that [facility] is not an option, and will have to call [facility]. [facility] does accept the voucher. LATRICE ENCISO 06/14/2022 16:33 documented in this encounter Plan of Treatment Upcoming Encounters Date Type Department Care Team (Late st Contact Info) Description 05/19/2024 11:00 EST Office Visit [facility] Family Medicine [address], [address] [place] [address] Dane Rick MD [address] [place] [address] [address] [place] [phone] documented as of this encounter Visit Diagnoses Not on filedocumented in this encounter Care Teams Vocational Rehabilitation Counselor Relationship Specialty Start Date End Date Otis Gee MD PCP - General 01/14/10 08/08/22 Vicky Chamberlain LICSW Infrastructure Manager 06/12/22 01/22/24 documented as of this encounter
--- OUTSIDE RECORDS SUMMARY | 2024-02-08 01:12 | XMS_ITS | Encounter Summary ---
Author Organization [facility] Address [address] [place] [address] Care Team Providers Care Oim Consultant Name Role Phone Otis Gee MD Primary Care Provider Elisabet Mathews RN Unavailable [phone] Encounter Details Date Type Department Care Team (Late st Contact Info) Description 08/01/2021 Orders Only [facility] Radiology - [facility] [place] [address] [place], [place] [id number] Chico Rivera MD [address] [place] [id number] Social History Tobacco Use Types Packs/Day Years [...] Info) Description 05/19/2024 11:00 EST Office Visit [facility] Family Medicine [facility] [address] [facility], [address] [place] [address] Dane Rick MD [address] [place] [address] [address] [place] [phone] documented as of this encounter Visit Diagnoses Not on filedocumented in this encounter Care Teams Oim Consultant Relationship Specialty Start Date End Date Otis Gee MD PCP - General 01/14/10 08/08/22 Elisabet Aponte RN [address] [facility] [place] [address] Agile Developer 06/29/21 04/09/22 documented as of this encounter
--- OUTSIDE RECORDS SUMMARY | 2024-02-08 01:12 | XMS_ITS | Encounter Summary ---
Author Organization [facility] Address [address] [place] [address] Care Team Providers Care Stripper Printed Circuit Boards Name Role Phone Otis Gee MD Primary Care Provider Unava ilable Reason for Visit * Reason Onset Date Comments Results 04/15/2021 Encounter Details Date Type Department Care Team ([facility] st Contact Info) Description 04/15/2021 Telephone [place] [address] [address] [place], [place] [address] Otis Gee MD Results Social History Tobacco [...] Exposure Response Date Recorded In the last month, have you been in contact with someone who was confirmed or suspected to have Coronavirus / COVID-19? No / Unsure 04/05/2021 13:53 EST documented as of this encounter Functional Status [...] Telephone Encounter - Joyce Lord LPN - 04/15/2021 1203 EST Called and relayed results to pt, she verbalizes understanding and denies any questions or concernsabout matter at this time. * Telephone Encounter - Joyce Lord LPN - 04/15/2021 1155 EST ----- Message from Otis Gee MD sent at 04/15/2021 8:09 EST ----- Call. Neck ultrasound is unchanged from previous exam. No further evaluation needed. documented in this encounter Plan of Treatment Upcoming Encounters Date Type Department Care Team (Late st Contact Info) Description 05/19/2024 11:00 EST Office Visit [facility] Family Medicine [address], [address] [place] [address] Dane Rick MD [address] [place] [address] [address] [place] [phone] documented as of this encounter Visit Diagnoses Not on filedocumented in this encounter Care Teams Stripper Printed Circuit Boards Relationship Specialty Start Date End Date Otis Gee MD PCP - General 01/14/10 08/08/22 documented as of this encounter
--- OUTSIDE RECORDS SUMMARY | 2024-02-08 01:12 | XMS_ITS | Encounter Summary ---
Author Organization [facility] Address [address] [place] [address] Care Team Providers Care Pick Pulling Machine Tender Name Role Phone Otis Gee MD Primary Care Provider Unava ilable Reason for Visit * Reason Onset Date Comments Knee Pain 05/09/2021 Encounter Details Date Type Department Care Team (Late st Contact Info) Description 05/09/2021 Telephone [place] [address] [address], [facility] [address] [place], [place] [phone] Zoila Shipman RN Knee Pain Social History Tobacco Use Types Packs/Day [...] Telephone Encounter - Bre Day RN - 05/13/2021 1026 EST Pt notified that the diclofenac is OTC. * Telephone Encounter - Karla Mcrae - 05/13/2021 0904 EST Patient called checking on the status. The pharmacy has not received RX diclofenac. * Telephone Encounter - Zoila Shipman RN - 05/09/2021 1117 EST RN called pt, informed Rx for diclofenac called in. Gave pt number for orthopedics office. * Telephone Encounter - Otis Gee MD - 05/09/2021 1058 EST Yes, otc form as Diclofenac * Telephone Encounter - Zoila Shipman RN - 05/09/2021 0951 EST RN called pt. Relayed that she can not take any NSAIDs, injection for symptom relief. Encouraged her to reach niko Francis. Declined PT referral. would be ok w topical if appropriate. Reports she does not think knee weakness/pain and leg pain are related. TC- Rx Voltaren gel? * Telephone Encounter - Otis Gee MD - 05/09/2021 0929 EST 1) is on plavix , should not take any nsaids 2) her knee: steps before replacement would be to consider an injection to it for symptom relief * Telephone Encounter - Zoila Shipman RN - 05/09/2021 0915 EST Pt mentioned during call about her that she is experiencing pain. Reports she is having left leg weakness, some number and pain creeping up the front of her leg. Feels that her balance is affected, and does not feel stable on the leg. Wants to know if she can take NSAID to relieve pain and if she should get knee surgery. TC- should/ can she take tylenol? documented in this encounter Plan of Treatment Upcoming Encounters Date Type Department Care Team (Late st Contact Info) Description 05/19/2024 11:00 EST Office Visit [facility] Family Medicine [address], [facility] 2 [place] [address] Dane Rick MD [address] [place] [address] [place] [phone] documented as of this encounter Visit Diagnoses Not on filedocumented in this encounter Care Teams Pick Pulling Machine Tender Relationship Specialty Start Date End Date Otis Gee MD PCP - General 01/14/10 08/08/22 documented as of this encounter
--- OUTSIDE RECORDS SUMMARY | 2024-02-08 01:12 | XMS_ITS | Encounter Summary ---
Author Organization [facility] Address [address] [place] [address] Care Team Providers Care Sole Rougher Name Role Phone Otis Gee MD Primary Care Provider Unava ilable Reason for Visit * Reason Comments Other Encounter Details Date Type Department Care Team (Latest Contact Info) Description 02/22/2021 16:30 EST Office Visit [facility] Medicine [place] [address] [address], [address] [place] [address] Otis Gee MD Dislocation of temporomandibular joint, initial encounter (Primary Dx); Stress due to marital problems; Chronic idiopathic constipation; At risk for infection Social History Tobacco Use Types Packs/Day Years [...] Sign Reading Time Taken Comments Blood Pressure 152/54 02/22/2021 1625 EST Pulse 60 02/22/2021 1625 EST Temperature - - Respiratory Rate 16 02/22/2021 1625 EST Oxygen Saturation 97% 02/22/2021 1625 EST Inhaled Oxygen Concentration - - Weight 83.7 kg (184 lb 8 oz) 02/22/2021 1625 EST Height - - Body Mass Index 36.03 10/19/2020 1340 EDT documented in this encounter Functional Status Functional Status Response Date of Assess ment Because of a physical, menta l, or emotional condition, does this person have difficulty doing errands alone such as visiting a doctor's office or shopping? No 09/04/2019 Cognitive Status Response Date of Assessm ent Because of a physical, menta l, or emotional condition, does this person have serious difficulty concentrating, remembering, or making decisions? No 09/04/2019 documented as of this encounter Progress Notes * Otis Gee MD - 02/22/2021 1630 EST [facility] [place] Care Subjective: Chief Complaint(s): Other HPI: Here with her , living in [place]. Stress of the house there, has daugter in law looking for another place. When she called, had pain on left side of her head, now gone. Throat feels scratchy at times. Worries she sounds raspy. Speaks at length that herhusband is eagle yirritable with her. Thinks it is his medical condition Remains anti-covid 19 vaccinated. Is having a group of unvaccinated people for thanksgiving. Has had worse constipation. Went 5-6 days with no stool. Is not taking any bowel meds with any regularity. Does not get exercise. Mentions she had a test way in the past in [place] telling her shehas narrow bowels. I have reviewed patient's tobacco history: reports that she has never smoked. She has never used smokeless tobacco. Allergies Allergen Reactions ??? Amoxicillin-Pot Clavulanate Rash ??? Flagyl [Metronidazole] ??? Metoprolol Other (See Comments) heart failure? Penicillins ??? Zithromax [Azithromycin] Current Outpatient Medications: ??? aspirin 81 mg EC tablet, Take 81 mg by mouth every 48 hours., Disp: , Rfl: ??? buPROPion (WELLBUTRIN SR) 150 mg SR tablet, Take 1 tablet by mouth twice daily, Disp: 180 Tablet, Rfl: 0 ??? furosemide (LASIX) 20 mg tablet, TAKE 2 TABLETS BY MOUTH IN THE MORNING AND 1 TABLET IN THE AFTERNOON, Disp: 270 Tablet, Rfl: 0 ??? LORazepam (ATIVAN) 0.5 mg tablet, 3 Times a Day as Needed as needed for ANXIETY, Disp: , Rfl: ??? LORazepam (ATIVAN) 0.5 mg tablet, One every 8 hrs prn- max of two in 24 hours., Disp: 50 Tab, Rfl: 3 ??? losartan (COZAAR) 50 mg tablet, Take 1 tablet by mouth once daily, Disp: 90 Tablet, Rfl: 0 ??? lovastatin (MEVACOR) 20 mg tablet, Take 1 tablet by mouth once daily, Disp: 90 Tab, Rfl: 3 Past Medical History: Diagnosis Date ??? Abnormal stress test reversible anteroseptal defect, with equivocal ST changes ??? Breathlessness on exertion ??? Chest pressure on exertion ??? Diverticulosis ??? HLD (hyperlipidemia) ??? HLD (hyperlipidemia) ??? Hypertension ??? ABDOULAYE (obstructive sleep apnea) ??? Post concussive syndrome poor memory ??? Seizure disorder (HCC-CMS) ??? Trigeminal neuralgia No family history on file. Past Surgical History: Procedure Laterality Date ??? BLEPHAROPLASTY 01/15/08 bilateral brow lift ??? ECTROPION REPAIR 01/09/08 bilateral lower lids ??? ROTATOR CUFF REPAIR Right 01/14/2019 Social History Socioeconomic History ??? Marital status: Spouse name: Not on file ??? Number of children: Not on file ??? Years of education: Not on file ??? Highest education level: Not on file Occupational History ??? Not on file Tobacco Use ??? Smoking status: Never Smoker ??? Smokeless tobacco: Never Used Substance and Sexual Activity ??? Alcohol use: Yes Comment: occasionally ??? Drug use: No ??? Sexual activity: Not on file Other Topics Concern ??? Not on file Social History Narrative ??? Not on file Social Determinants of Health Financial Resource Strain: ??? Difficulty of Paying Living Expenses: Not on file Food Insecurity: ??? Worried About Running Out of Food in the Last Year: Not on file ??? Ran Out of Food in the Last Year: Not on file Transportation Needs: ??? Lack of Transportation (Medical): Not on file ??? Lack of Transportation (Non-Medical): Not on file Physical Activity: ??? Days of Exercise per Week: Not on file ??? Minutes of Exercise per Session: Not on file Stress: ??? Feeling of Stress : Not on file Social Connections: ??? Frequency of Communication with Friends and Family: Not on file ??? Frequency of Social Gatherings with Friends and Family: Not on file ??? Attends Yarsanism Services: Not on file ??? Active Member of Clubs or Organizations: Not on file ??? Attends Club or Organization Meetings: Not on file ??? Marital Status: Not on file I have reviewed current problem list and current medications. ROS: ROS Hard stools, no blood. No upper tract symptoms. No vomititng, wt is stable Objective: Examination: Vitals: BP (!) 152/54 (BP Cuff Location: Left arm, BP Patient Position: Sitting, BP Cuff Sizes: Adult, large) Pulse 60 Resp 16 Wt 83.7 kg (184 lb 8 oz) SpO2 97% BMI 36.03 kg/m?? Body mass index is 36.03 kg/m??. Physical Exam Well seeming. Here with , they disagree on many issues and she leans in hard to change his habits. abd- some palpable stool in left side, otherwise soft, no localizing tenderness noted. Neg hsm no rbound Face- slight replicating pain at tmj, left. Data reviewed with patient none Assessment & Plan: 1. Dislocation of temporomandibular joint, initial encounter heat to area, care with eating, will let me know if continues. ( she has an off bite given her failed dental work) 2. Stress due to marital problems tried to establish ground rules for engagement. he agrees to medical care 3. Chronic idiopathic constipation miralax and ducolax and fluids, and activity daily. will call if not regular finally 4. At risk for infection refuses vaccine. will call if symptomatic for guidance. Otis Gee MD documented in this encounter Plan of Treatment Upcoming Encounters Date Type Department Care Team (Late st Contact Info) Description 05/19/2024 11:00 EST Office Visit [facility] Family Medicine [address], [address] [place], [place] [phone] Dane Rick MD [address] [facility] [address] [place] [phone] documented as of this encounter Visit Diagnoses Diagnosis Dislocation of temporomandibular joint, initial encounter- Primary Stress due to marital problems Counseling for marital and partner problems, unspecified Chronic idiopathic constipation Unspecified constipation At risk for infection Other specified conditions influencing health status documented in this encounter Historical Medications * This list may reflect changes made after this encounter. Medication Sig Dispensed Refills Start Date End Date LORazepam (ATIVAN) 0.5 mg tablet 3 Times a Day as Needed as needed for ANXIETY 09/19/2022 added in this encounter Care Teams Sole Rougher Relationship Specialty Start Date End Date Otis Gee MD PCP - General 01/14/10 08/08/22 documented as of this encounter
--- OUTSIDE RECORDS SUMMARY | 2024-02-08 01:12 | XMS_ITS | Encounter Summary ---
Author Organization [facility] Address [address] [place] [address] Care Team Providers Care Program Eligibility Specialist Name Role Phone Otis Gee MD Primary Care Provider Elisabet Mathews RN Unavailable [phone] Reason for Visit * Reason Onset Date Comments Coordination Of Care 07/14/2021 Encounter Details Date Type Department Care Team ([facility] [address] Contact Info) Description 07/14/2021 Telephone [facility] [address], [facility] [address] [place] [address] Zehra Aponte, HARINDER Coordination Of [...] have Coronavirus / COVID-19? No / Unsure 06/17/2021 13:49 EDT documented as of this encounter Functional [...] encounter Miscellaneous Notes * Telephone Encounter - Nisa Negron - 07/14/2021 1326 EDT Pt called back I let her know that she would get a call back when you are able to * Telephone Encounter - Elisabet Cordova RN - 07/14/2021 1105 EDT CM RN contacted pt to discuss medications and arrange home visit. [facility] with contact number. documented in this encounter Plan of Treatment Upcoming Encounters Date Type Department Care Team (Late st Contact Info) Description 05/19/2024 11:00 EST Office Visit [facility] Family Medicine [address], [address] [place] [address] Dane Rick MD [address] [place] [address] [address] [place] [phone] documented as of this encounter Visit Diagnoses Not on filedocumented in this encounter Care Teams Program Eligibility Specialist Relationship Specialty Start Date End Date Otis Gee MD PCP - General 01/14/10 08/08/22 Elisabet Aponte RN [address] [facility] [place] [address] Card Hanger 3/30/22 1/8/23 documented as of this encounter
--- OUTSIDE RECORDS SUMMARY | 2024-02-08 01:12 | XMS_ITS | Encounter Summary ---
Author Organization [facility] Address [address] [place] [address] Care Team Providers Care Roller Staker Name Role Phone Otis Gee MD Primary Care Provider Elisabet Mathews RN Unavailable [phone] Reason for Visit * Reason Onset Date Comments Leg Pain 08/01/2021 Fatigue 08/01/2021 Appointment Related 08/01/2021 Encounter Details Date Type Department Care Team ([facility] Contact Info) Description 08/01/2021 Telephone [facility] [address], [address] [place] [address] Otis Gee MD Leg Pain; Fatigue; Appointment Related Social History Tobacco Use Types [...] * Telephone Encounter - Marta Oh - 08/01/2021 1501 EDT F/u scheduled * Telephone Encounter - Nupur Benson RN - 08/01/2021 1427 EDT Patient notified. Please schedule follow up. * Telephone Encounter - Otis Gee MD - 08/01/[address] wiseman about her knee. Got a steroid shot, may now need visco supplementation or a replacement Fatigue is a chronic problem. Should get a next available, not an acute * Telephone Encounter - Nupur Benson RN - 08/01/2021 1019 EDT She said she had a L knee injection a short time back', only lasted 2-3 days. Right now her knee is slightly better, which also helped the rest of her leg into her ankle. She feels the leg is sensitive to touch. Is asking if she needs vitamin levels checked to determine if this could be the cause of pain, or if she needs another injection? She has also been fatigued for a few months. Do you want OV to discuss these issues? * Telephone Encounter - Cathie Coombs - 08/01/2021 0911 EDT Pt is feeling fatigued, leg problem getting worse. documented in this encounter Plan of Treatment Upcoming Encounters Date Type Department Care Team (Late st Contact Info) Description 05/19/2024 11:00 EST Office Visit [facility] Family Medicine [address] [place] [address] Dane Rick MD [address] [place] [address] [address] [place] [address] documented as of this encounter Visit Diagnoses Not on filedocumented in this encounter Care Teams Roller Staker Relationship Specialty Start Date End Date Otis Gee MD PCP - General 01/14/10 08/08/22 Elisabet Aponte RN [address] [place] [address],[facility] [address] [place] [address] Tracer Lathe Set Up Operator 06/29/21 04/09/22 documented as of this encounter
--- OUTSIDE RECORDS SUMMARY | 2024-02-08 01:12 | XMS_ITS | Encounter Summary ---
Author Organization [facility] Address [address] [place] [address] Care Team Providers Care Lobby Concierge Name Role Phone Otis Gee MD Primary Care Provider Unava ilable Reason for Visit * Reason Onset Date Comments Patient Information Update 03/29/2021 [facility] T CM Appointment Related 03/29/2021 Encounter Details Date Type Department Care Team ([facility] Contact Info) Description 03/29/2021 Telephone [facility] [address], [facility] [address] [place] [address] Otis Gee MD Patient Information Update ([facility] TCM); Appointment Related Social History Tobacco Use Types [...] * Telephone Encounter - Marta Oh - 03/31/2021 1523 EST Patient scheduled. * Telephone Encounter - Nupur Benson RN - 03/31/2021 1509 EST Please schedule * Telephone Encounter - Oits Gee MD - 03/31/2021 1458 EST Use an acute next week for me * Telephone Encounter - Bre Day RN - 03/30/2021 1102 EST TC-ok to wait for a TCM on 04/11 with WC, no sooner options unless use an acute spot * Telephone Encounter - Cathie Coombs - 03/29/2021 0945 EST Admit Date: 03/20/21 Discharge Date: 03/24/21 Facility: [facility] Discharge Location: home Diagnosis: CVA documented in this encounter Plan of Treatment Upcoming Encounters Date Type Department Care Team (Late st Contact Info) Description 05/19/2024 11:00 EST Office Visit [facility] [address], [address] [place] [address] Daen Rick MD [address] [place] [phone] documented as of this encounter Visit Diagnoses Not on filedocumented in this encounter Care Teams Lobby Concierge Relationship Specialty Start Date End Date Otis Gee MD PCP - General 01/14/10 08/08/22 documented as of this encounter
--- OUTSIDE RECORDS SUMMARY | 2024-02-08 01:12 | XMS_ITS | Encounter Summary ---
Author Organization [facility] Address [address] [place] [address] Care Team Providers Care On Site Property Manager Name Role Phone Otis Gee MD Primary Care Provider Unava ilable Reason for Referral * Radiology Services (Routine/Next Available) - Authorization Not Required Specialty Diagnoses / Procedures Referred By Franky ferreira Referred To Contact Diagnoses Thyroid nodule Procedures US THYROID/NECK Otis Gee [place] [facility] [place]erral ID Status Reason Start Date Expiration Date Visits Requested Visits Authorized [id number] Authorization Not Required 04/05/2021 1 1 Reason for Visit * Radiology Services (Routine/Next Available) - Authorization Not Required Specialty Diagnoses / Procedures Referred By Franky ferreira Referred To Contact Diagnoses Thyroid nodule Procedures US THYROID/NECK Otis Gee MD [facility] Referral ID Status Reason Start Date Expiration Date Visits Requested Visits Authorized [id number] Authorization Not Required 04/05/2021 1 1 Encounter Details Date Type Department Care Team (Latest Contact Info) Description 04/14/2021 13:48 EST - 04/14/2021 23:59 EST Hospital Encounter [facility] Ultrasound [address] [place] [address] Thyroid nodule Discharge Disposition: Home or Self [...] tablet Take 1 Tablet by mouth daily. 30 Tablet 11 03/25/2021 06/21/2021 buPROPion (WELLBUTRIN SR) 150 mg SR tablet Take 1 tablet by mouth twice daily 180 Tablet 03/18/2021 06/21/2021 clopidogreL (PLAVIX) 75 mg tablet Take 1 Tablet by mouth daily. 18 Tablet 03/25/2021 07/14/2021 furosemide (LASIX) 20 mg tablet TAKE 2 TABLETS BY MOUTH IN THE MORNING AND 1 IN THE AFTERNOON 270 Tablet 03/18/2021 06/21/2021 LORazepam (ATIVAN) 0.5 mg tablet 3 Times a Day as Needed as needed for ANXIETY 09/19/2022 losartan (COZAAR) 100 mg tablet Take 1 Tablet by mouth daily. 30 Tablet 5 03/25/2021 06/21/2021 documented as of this encounter Discharge Disposition Disposition Code Departure Means Destination Home or Self Care documented in this encounter Miscellaneous Notes * Result Encounter Note - Otis Gee MD - 04/14/2021 1430 EST Call. Neck ultrasound is unchanged from previous exam. No further evaluation needed. documented in this encounter Plan of Treatment Upcoming Encounters Date Type Department Care Team (Late st Contact Info) Description 05/19/2024 11:00 EST Office Visit [facility] [address] [facility], [address] [place] [address] Dane Rick MD [address] [place] [address] [address] [place] [address] documented as of this encounter Procedures Procedure Name Priority Date/Time Associated Diagnosis Comments US THYROID/NECK Routine 04/14/2021 14:51 EST Thyroid nodule documented in this encounter Results * US THYROID/NECK (04/14/2021 14:51 EST) Anatomical Region Laterality Modality Neck Ultrasound 04/14/2021 19:2 2 EST Impressions 04/14/2021 19:22 EST Multinodular thyroid essentially unchanged compared to the previous ultrasound. Continued imaging surveillance is recommended. Narrative 04/14/2021 19:22 EST INDICATION: thyroid nodules seen on ct scan at [facility]. COMPARISON: Thyroid ultrasound 09/03/2020. TECHNIQUE: Sonographic examination of the thyroid was performed. Color Doppler imaging was also utilized. FINDINGS: Right thyroid lobe: The right thyroid lobe has a heterogeneous, multinodular appearance and is normal in size measuring 3.9 cm x 1.5 cm x 1.8 cm. An 8 mm and 10 mm nodule within the upper and mid regions of the right thyroid lobe are essentially unchanged. No new right thyroid lobe nodule. Left thyroid lobe: The left thyroid lobe has a heterogeneous, multinodular appearance and is enlarged measuring 5.4 cm x 2.6 cm x 3.3 cm (compared to 6.4 cm x 2.5 cm x 2.9 cm in the previous exam. The 3 dominant nodules are essentially unchanged compared to the prior exam measuring 1.4 cm, 1.1 cm and 2.3 cm. This is compared to 1.2 cm, 1.1 cm and 2.5 cm respectively on the previous exam. No new left thyroid lobe nodule is identified. Thyroid isthmus: The thyroid isthmus measures 4 mm in thickness. Procedure Note Kai Duff MD - 04/14/2021 INDICATION: thyroid nodules seen on ct scan at [facility]. COMPARISON: Thyroid ultrasound 09/03/2020. TECHNIQUE: Sonographic examination of the thyroid was performed. ColorDoppler imaging was also utilized. FINDINGS: Right thyroid lobe: The right thyroid lobe has a heterogeneous,multinodular appearance and is normal in size measuring 3.9 cm x 1.5 cm x1.8 cm. An 8 mm and 10 mm nodule within the upper and mid regions of theright thyroid lobe are essentially unchanged. No new right thyroid lobenodule. Left thyroid lobe: The left thyroid lobe has a heterogeneous, multinodularappearance and is enlarged measuring 5.4 cm x 2.6 cm x 3.3 cm (compared to6.4 cm x 2.5 cm x 2.9 cm in the previous exam. The 3 dominant nodules areessentially unchanged compared to the prior exam measuring 1.4 cm, 1.1 cmand 2.3 cm. This is compared to 1.2 cm, 1.1 cm and 2.5 cm respectively onthe previous exam. No new left thyroid lobe nodule is identified. Thyroid isthmus: The thyroid isthmus measures 4 mm in thickness. IMPRESSION Multinodular thyroid essentially unchanged compared to the previousultrasound. Continued imaging surveillance is recommended. Otis Gee MD IM US ORDERABLES documented in this encounter Visit Diagnoses Diagnosis Thyroid nodule Nontoxic uninodular goiter documented in this encounter Care Teams On Site Property Manager Relationship Specialty Start Date End Date Otis Gee MD PCP - General 01/14/10 08/08/22 documented as of this encounter
--- OUTSIDE RECORDS SUMMARY | 2024-02-08 01:12 | XMS_ITS | Encounter Summary ---
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 (HCC-CMS) Janell Jj NP [address] [phone] Janell Jj NP [address] [place] [phone] Referral ID Status Reason Start Date Expiration Date Visits Requested Visits Authorized [id number] Order Cancelled Specialty Services Required 1 1 1 Encounter Details Date Type Department Care Team (Late st Contact Info) Description 07/28/2021 16:00 EDT Office Visit [facility] [address] [place], [place] [address] Janell Jj NP [address] [place] [phone] Carotid aneurysm, right (HCC-CMS) (HCC) (Primary Dx) Social History Tobacco Use Types [...] Sign Reading Time Taken Comments Blood Pressure 130/72 07/28/2021 1607 EDT Pulse 78 07/28/2021 1607 EDT Temperature - - Respiratory Rate - - Oxygen Saturation 97% 07/28/2021 1607 EDT Inhaled Oxygen Concentration - - Weight [...] * Patient Instructions* Janell Jj NP - 07/28/2021 16:00 EDT ? ? Continue with daily Atorvastatin 40 mg; target LDL <70 for secondary stroke prevention ??? Continue daily ASA 81mg for secondary stroke prevention ??? Follow up CTA head to monitor for 4 mm aneurysm right ICA in 1 year ??? May refer for work up of trigeminal neuralgia ??? Discussed Stroke risk factors and secondary stroke prevention ??? Discussed signs and symptoms of stroke (BEFAST) ??? Reviewed imaging and other test results during hospitalization and any testing done post discharge ??? Provided my contact information with any additional questions regarding stroke; Janell Анна,RESPIRATORY PHYSICIAN [phone] ??? Follow up in stroke clinic 1 year documented in this encounter Progress Notes * Janell Jj NP - 07/28/2021 1600 EDT Subjective: Kenyatta Vizcaino is a 80 y.o. 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 Outside reports reviewed: ER records, historical medical records, imaging reports: head/neck images, cardiac testing and lab reports. Past Medical History: Diagnosis [...] ??? aspirin 81 mg EC tablet Take 81 mg by mouth every 48 hours. ??? atorvastatin (LIPITOR) 40 mg tablet Take 1 tablet by mouth once daily (Patient not taking: Reported on 07/28/2021) 90 Tablet 3 ??? buPROPion (WELLBUTRIN SR) 150 mg SR tablet Take 1 tablet by mouth twice daily 180 Tablet 0 ??? furosemide (LASIX) 20 mg tablet TAKE 2 TABLETS BY MOUTH IN THE MORNING AND 1 TABLET IN THE AFTERNOON 270 Tablet 0 ??? LORazepam (ATIVAN) 0.5 mg tablet 3 Times a Day as Needed as needed for ANXIETY ??? losartan (COZAAR) 100 mg tablet Take 1 Tablet by mouth daily. 90 Tablet 0 No current facility-administered medications for this visit. [...] Social Determinants of Health Financial Resource Strain: Not on file Food Insecurity: Not on file Transportation Needs: Not on file Physical Activity: Not on file Stress: Not on file Social Connections: Not on file Review of Systems A ten point review of systems was performed and was negative except for pertinent positives noted in the HPI Objective: BP 130/72 (BP Cuff Location: Left arm, BP Patient Position: Sitting, BP Cuff Sizes: Adult, regular) Pulse 78 SpO2 97% General appearance: alert, cooperative Skin: no evidence of bleeding or bruising, no lesions noted and temperature normal Head: Normocephalic, without obvious abnormality, atraumatic Eyes: negative findings: conjunctivae and sclerae normal and pupils equal, round, reactive to lightand accomodation Neck: supple, symmetrical, trachea midline Lungs: non labored breathing Heart: regular rate and rhythm Extremities: extremities warm, atraumatic, no cyanosis or edema positive pulses bilat Mental Exam: Awake and alert, oriented to person, place and events related to hospitalization, cooperative, following simple commands Neurological Exam: Cranial Nerves: Cranial Nerve II: Visual gutierrez were with in normal limits to confrontation Cranial Nerve III, IV and : oculomotor, trochlear and abducens nerve were intact Cranial Nerve V: Facial sensation was normal to light touch and temperature Cranial Nerve VII: No facial nerve palsy noted Cranial Nerve VIII: hearing intact; Cranial Nerve IX and X: normal movement of soft palate Cranial Nerve XI: able to shrug shoulder with some resistance placed Cranial Nerve XII: tongue midline no deviation with protrusion Motor Normal tone and bulk. No abnormal motor movements. Upper Extremity Right Left Deltoids 5 5 Bicep 5 5 Tricep 5 5 Airplane Fueler 5 5 ?? Lower Extremity Right Left Hip Flexion 5 5 Knee Flexion 5 5 Knee Extension 5 5 Ankle Plantarflexion 5 5 Ankle Dorsiflexion 5 5 ?? Reflexes 2+ bilateral patellar and bicep reflexes. ?? Sensation Intact to crude and light ?? Cerebellar/Movement Function No dysmetria on FNF Imaging 03/21/2021 MRI HEAD WO CONTRAST IMPRESSION Acute infarction in the left frontal lobe including a small cortical ribbon of the left precentral gyrus. No parenchymal hemorrhage. CTA HEAD NECK 03/20/2021 IMPRESSION Subtle region of hypodensity in the left frontal lobe concerning for infarction; further evaluationwith MRI recommended. No acute hemorrhage, mass lesion, or midline shift. ?? 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 No additional high grade stenosis or occlusion of the major arterial vasculature of the head and neck. ?? Multiple thyroid nodules, the least measuring up to 3 cm in diameter. Complete evaluation by thyroid ultrasound recommended on a non-urgent outpatient basis. ?? 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 Etiology cryptogenic. She did not wear the event monitor post dischargeand stated most likely would not wear because too much time since the stroke. She stated that shehas not been taking her atorvastatin because she did not feel she needed to take it. No falls sinceshe has been home. Has complaint of left head discomfort near her left ear and radiates down left side of face to chin. States that this has been a problem before she had the stroke. States that it has been many years. She usually resolves most of the discomfort by putting hydrogen peroxide in ear to clean it out. Plan: ? ? Continue with daily Atorvastatin 40 mg; target LDL <70 for secondary stroke prevention ??? Continue daily ASA 81mg for secondary stroke prevention ??? Follow up CTA head to monitor for 4 mm aneurysm right ICA in 1 year ??? May refer for work up of trigeminal neuralgia ??? Discussed Stroke risk factors and secondary stroke prevention ??? Discussed signs and symptoms of stroke (BEFAST) ??? Reviewed imaging and other test results during hospitalization and any testing done post discharge ??? Provided my contact information with any additional questions regarding stroke ??? Follow up in stroke clinic 1 year Janell Jj APRN 07/28/2021 I spent a total of 40 minutes on the date of this encounter meeting with the patient and reviewing documentation/coordinating care as described in the above note. No procedures were performed at the time of the visit. 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
--- OUTSIDE RECORDS SUMMARY | 2024-02-08 01:12 | XMS_ITS | Encounter Summary ---
Author Organization 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 Name Role Phone Otis Gee MD Primary Care Provider Unava ilable Reason for Referral * Cardiology (Routine/Next Available) - Closed Specialty Diagnoses / Procedures Referred By Contac t Referred To Contact Diagnoses CVA (cerebral vascular accident) ([facility]) Procedures ZIO Janell Zamora, PROPELLANT CHARGE LOADER [address] [facility], [facility] [address] [place] [address] [facility] Referral ID Status Reason Start Date Expiration Date Visits Re quested Visits Authorized [id number] Closed 03/23/2021 1 1 Reason for Visit * Reason Comments Fall BIB EMS as stroke al ert. Per EMS patient was found down after multiple suspected falls. C/f stroke after noting R facial droop and R side drift. Per EMS aphasia progressed in route. BS 119 with EMS. Denies use of blood thinners. Aphasia * Auth/Cert Specialty Diagnoses / Procedures Referred By Contac t Referred To Contact Diagnoses CVA (cerebral vascular accident) ([facility]) Stroke determined by clinical assessment ([facility]) Referral ID Status Reason Start Date Expiration Date Visits Re quested Visits Authorized [id number] 1 1 Encounter Details Date Type Department Care Team ([facility] st Contact Info) Description 03/20/2021 23:24 EST - 03/24/2021 12:38 EST Hospital Encounter [facility] Neurosurgery Unit [address], [place] [id number] Yolanda Burrows MD [address] [facility], [facility] [address] [place] [phone] Aguilar Rich MD [address] [facility], [facility] 1 [place] [phone] Damon Moeller MD [address] [place] [address], [facility] 5 [place] [phone] Miranda Montoya MD [address] [place] [address] 2 [place] [phone] Manuel Rivers DO [address] [place] [address], [facility] [address] [place] [phone] 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 (HCC-CMS) (HCC) (HCC-CMS) (Primary Dx); CVA (cerebral vascular accident) (HCC-CMS) (HCC) (HCC-CMS); Aphasia; Aneurysm, carotid artery, internal; Thyroid nodule Discharge Disposition: Home-Health Care Svc Social History Tobacco Use Types Packs/Day Years [...] Sign Reading Time Taken Comments Blood Pressure 183/81 03/24/2021 0647 EST Pulse 70 03/24/2021 0900 EST Temperature 36.6 ??C (97.9 ??F) 03/24/2021 0900 EST Respiratory Rate 18 03/24/2021 0505 EST Oxygen Saturation 96% 03/24/2021 0901 EST Inhaled Oxygen Concentration - - Weight 91.6 kg (201 lb 15.1 oz) 03/20/2021 2351 EST Height 153 cm (5' 0.24) 03/21/2021 1600 EST Body Mass Index 39.13 03/20/2021 2351 EST documented in this encounter Functional Status [...] 03/21/2021 documented as of this encounter Discharge Summaries * Miranda Stone MD - 03/24/2021 1045 EST Stroke Discharge Summary Primary Care Provider: Otis Gee Attending Physician: Miranda Stone MD Admit Date: 03/20/2021 Discharge Date: 03/24/2021 Disposition: Home or self care Problems Presenting Problem: R arm weakness and fall Principal/Final Diagnosis: left frontal lobe infarction Additional Problems Managed in the Hospital Active Hospital Problems Diagnosis Date Noted *CVA (cerebral vascular accident) ([facility]) ([facility]) 03/21/2021 Stroke determined by clinical assessment ([facility]) ([facility]) 03/21/2021 Resolved Hospital Problems No resolved problems to display. Hospital Course Andria Lopez is a 80 y.o. female with a PMHx significant for HTN , ABDOULAYE, depression who presented to [facility] on 03/20/2021 as stroke code for right sided weakness and aphasia at home. CT head and neck did not show hemorrhage or proximal occlusion (distal L M2 occlusion). Found to have acute left frontal lobe ischemic stroke. Expressive aphasia has resolved upon interview on 03/22. She was admitted to Neurology service for further work up. TTE showed an EF 60-65%; no regional wall abnormalities, LA normal size. Physical therapy originally recommended acute rehab, but her strength improved significantly as well as her aphasia. She is now recommended for home with supervision. Etiology of stroke cryptogenic. 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 Multiple thyroid nodules, the least measuring up to 3 cm in diameter. Complete evaluation by thyroid ultrasound recommended on a non-urgent outpatient basis Allergies and Immunizati ons Allergies Allergen Reactions Amoxicillin-Pot Clavulanate Rash Flagyl [Metronidazole] Metoprolol Other (See Comments) heart failure? Penicillins Zithromax [Azithromycin] Immunization History Administered Date(s) Administered Influenza H1N1 IM 12/13/2009 Influenza Vaccine =>3yo Split IM 12/26/2010, 01/30/2013 Influenza Vaccine =>3yo Split Preservative Free IM 01/11/2009, 02/06/2012 Influenza Vaccine High Dose (FLUZONE HIGH DOSE) PF 0.7 ml IM (65 yrs+) 01/24/2016, 01/11/2018 Influenza Vaccine Quad (AFLURIA) PF 0.5 ml IM (3 yrs+) 01/07/2015, 02/19/2017 Pneumococcal Conj Vacc PCV13 (PREVNAR-13) IM 01/07/2015 Pneumococcal Polysaccharide (PPSV23) Vaccine (PNEUMOVAX-23) =>2YO SQ/IM 02/06/2012 Td 07/13/2004, 12/13/2009 Transition of Care Plans Condition at Discharge Good or Improved Neurological Exam at Discharge MENTAL STATUS: AAOx3. Follows simple/complex commands. Affect normal with congruent mood. LANGUAGE: Speech clear, spontaneous, and fluent. With minimal expressive aphasia improved from admission with only difficulty saying 1 word on exam today. Nodysarthria. Naming, repetition, comprehension intact. Volume and intonation grossly normal. CRANIAL NERVES: CN II: Visual gutierrez full to confrontation and double simultaneous stimulation, acuity grossly intact, PERRLA. CN III-IV, : Pupils 4 mm (R/L). EOMMs intact with no nystagmus, gaze palsy or preference. CN V: Normal masseter bulk. V1-V3 intact to LT. CN VII: Face symmetric bilaterally. Smile symmetric. Buries eyelashes and raises eyebrows symmetrically. Nasolabial folds and palpebral folds symmetric bilaterally CN VIII: Hearing grossly intact. CN IX-X: No dysarthria. Palate elevates symmetrically with no uvular deviation. CN XI: Shoulder shrug symmetric with full strength. CN XII: Tongue midline, no deviation, atrophy, or fasciculations. MOTOR: Normal muscle bulk and tone. No pronator drift or orbiting. No tremors or abnormal movementsnoted during exam. Formal strength testing as follows: Upper Extremity Strength Shoulder abd (C5) Elbow flexion (C5,6) Elbow ext (C7) Wrist extension (C7) Finger abd (C8, T1) Water Tender (T1) Right 4+/5 5/5 4+/5 4+/5 4+/5 5/5 Left 5/5 5/5 5/5 5/5 5/5 5/5 Lower Extremity Strength Hip flexion (L2,3) Knee extension (L3,4) Ankle DF (L4,5) Knee flexion (L5,S1) Ankle PF (S1,2) Right 4+/5 4+/5 5/5 5/5 5/5 Left 5/5 5/5 5/5 5/5 5/5 SENSORY: Intact to light touch and pin prick symmetrically in proximal/distal UE/LEs. Double simultaneous stimulation intact. REFLEXES: DTRs: Right Left Biceps 2+ 2+ Triceps 2+ 2+ Bracheoradialis 2+ 2+ Patellar 2+ 2+ Achilles 2+ 2+ Plantar responses Flexor Flexor COORDINATION: RENETTA intact in upper/lower extremities with no dysdiadochokinesia. FTN/HTS intact bilaterally with no dysmetria or sensory/cerebellar ataxia. GAIT: Deferred. Results Pending at Discharge Test results still pending from this admission None Relevant Studies at Discharge CT ANGIO HEAD NECK Result Date: 03/21/2021 Subtle region of hypodensity in the left frontal lobe concerning for infarction; further evaluationwith MRI recommended. No acute hemorrhage, mass lesion, or midline shift. 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 No additional high grade stenosis or occlusion of the major arterial vasculature of the head and neck. Multiple thyroid nodules, the least measuring up to 3 cm in diameter. Complete evaluation by thyroid ultrasound recommended on a non-urgent outpatient basis. 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 STENOSIS REFERENCE: MILD: < 50% MODE RATE: 50-69% SEVERE: 70-89% HAIRLINE/CRITICAL: 90-99% OCCLUDED: 100% There is a difference between this interpretation and that provided by the preliminary resident report which requires non-urgent notification. The finding of a right ICA aneurysm was discussed with Maryana Capellan on 03/21/2021 at approximately 10:30 AM. I have personally reviewed the images and the above interpretation and agree with the findings. MR HEAD WO CONTRAST Result Date: 03/21/2021 Acute infarction in the left frontal lobe including a small cortical ribbon of the left precentral gyrus. No parenchymal hemorrhage. Findings were communicated by Dr. Stephon Jones by phone to Ryley at the time of this dictation on 03/21/2021 3:51 AM. I have personally reviewed the images and the above interpretation and agree with the findings. TTE 03/21/2021 Impressions Left Ventricle: The left ventricular cavity was normal in size. Left ventricular systolic function was normal with an ejection fraction of 60-65%. Left ventricular wall thickness was normal. Left ventricular wall motion was normal; there were no regional wall motion abnormalities. Right Ventricle: The right ventricular cavity was normal in size. Right ventricular systolic function was normal. Aortic Valve: The aortic valve structure was probably trileaflet. The aortic leaflets were mildly thickened. There was mild aortic valve stenosis. Mitral Valve: There was mild annular calcification. Last Lab Results at Discharge Lab Results Component Value Date HGBA1C 5.7 (H) 03/20/2021 CHOL 206 03/20/2021 TRIG 178 03/20/2021 HDL 59 03/20/2021 LDLBASE 111 03/20/2021 TSH 0.68 01/15/2019 NIHSS Criteria 03/20/2021 Exam Date 03/20/2021 Exam Time 2339 LOC 0 LOC Questions 0 LOC Commands 0 Best Gaze 0 Visual 0 Facial Palsy 1 Left Arm, Motor 0 Right Arm, Motor 1 Left Leg, Motor 0 Right Leg, Motor 0 Limb Ataxia 0 Sensory 0 Best Language 0 Dysarthria 1 Extinction/Inatten. 0 Total Score 3 Additional Stroke Discharge Documentation Stroke Location: left frontal lobe infarction Stroke Etiology: Cryptogenic stroke (stroke of undetermined etiology) Modified [place] Scale (mRs): 3 - Moderate disability. Requires some help, but able to walk unassisted. Discharge Follow Up Follow-up appointments and procedures Amb Consult/Follow Up Primary Care Physician Reason for Request: follow up post stroke; medication managemtn Expected Discharge Date (Inpatient Only): 03/23/2021 Authorizing Provider: Janell Jj APRN [facility], [place] I certify that this patient is under my care and that I, or another Medicare allowed practitioner (DO ANIKET, FRANK) working with me, had a [id number] encounter with this patient on this date: 03/24/2021 The discharge summary or progress note will provide further details that support the need for the home health services and the plan of care.: Yes Enter the allowed practitioner (DO ANIKET, FRANK) who will provide oversight of this patient's home heatlh care needs and plan of care: Otis Gee MD The patient???s homebound status is related to the following diagnoses, illness or condition (describe): Stroke Patient needs one or more of the following to leave home: Assistance not necessary, but medically contraindicated as indicated below. Leaving the home is medically contraindicated due to: Risk of falls and/or history of falls requirethe assistance/supervision of another person The following conditions illustrate the patient???s normal inability to leave home AND that leavinghome requires a considerable and taxing effort: The severity of the neurological disease limits functional ability and ambulation Skilled Care Requested: Physical Therapy Occupational therapy Physical therapy is needed for: Evaluation Safety Gait/Mobility Assessment and Training Occupational Therapy for: ADL Training Assess Need for Adaptive Equipment Expected Discharge Date (Inpatient Only): 03/23/2021 Authorizing Provider: Patrick Chavira MD Amb Consult/Follow Up Neurology Reason for Request: follow up post stroke Expected Discharge Date (Inpatient Only): 03/23/2021 Authorizing Provider: Janell Jj APRN Follow-up labs and tests ZIO Patch - 14 Day Complete by: Mar 23, 2021 (Approximate) Authorizing Provider: Janell Jj APRN ERIC NEWMAN, MD 03/24/2021 11:26 documented in this encounter Medications at Time [...] as Needed as needed for ANXIETY 09/19/2022 LORazepam (ATIVAN) 0.5 mg tablet One every 8 hrs prn- max of two in 24 hours. 50 Tab 3 03/04/2020 04/05/2021 losartan (COZAAR) 100 mg tablet Take 1 Tablet by mouth daily. 30 Tablet 5 03/25/2021 06/21/2021 documented as of this encounter Ordered Prescriptions Prescription Sig Dispensed Refills Start Date End Da te losartan (COZAAR) 100 mg tablet Take 1 Tablet by mouth daily. 30 Tablet 5 03/25/2021 06/21/2021 clopidogreL (PLAVIX) 75 mg tablet Take 1 Tablet by mouth daily. 18 Tablet 03/25/2021 07/14/2021 atorvastatin (LIPITOR) 40 mg tablet Take 1 Tablet by mouth daily. 30 Tablet 11 03/25/2021 06/21/2021 documented in this encounter Discharge Disposition Disposition Code Departure Means Destination Home-Health Care [facility] Home documented in this encounter Progress Notes * Halley Bravo OT - 03/24/2021 1238 EST [facility] Therapy [facility] Occupational Therapy Discontinue/Discharge Note Date: 03/24/2021 SUBJECTIVE: None OBJECTIVE: The patient initiated occupational therapy on 03/23/2021. The patient has been discharged from the hospital. Please refer to the Occupational Therapy Initial Evaluation Note dated 03/23/2021 for details. ASSESSMENT: Unable to assess her current status as the patient was not seen for any additional therapy sessions. GOALS: All goals discontinued. PLAN: Discontinue occupational therapy. HALLEY BRAVO OT 03/24/2021 13:14 * Halley Bravo OT - 03/23/2021 1859 EST [facility] Therapy [facility] Occupational Therapy Initial Evaluation Note Date of Service: 03/23/2021 Reason for Referral: Priority for discharge Mobility Precautions Activity: Activity as tolerated SUBJECTIVE: Patient/Caregiver States: I feel like I ran a marathon following sit to supine transfer Subjective Information Reported by: Patient OBJECTIVE: Patient Profile: Patient is a 80 y.o. female admitted on 03/20/2021 secondary to CVA (cerebral vascular accident) ([facility]) ([facility]). 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 Basic Activities of Daily Living - General Level of Assistance Throughout: Independent Home Environment: Safety Assessment / Living Environment Home environment: Apartment Home layout: One level Access/Entrance: Elevator Entrance Stairs: No entrance stairs Bathroom Accessibility: Accessible Bathroom Set up: Built-in shower seat, Standard toilet (Patient reports tub/walk in shower combination with cut out) Bedrooms/Bathrooms: Able to live on main level with bedroom/bathroom Home Equipment: Bathing Equipment: Grab bars in shower/tub, Grab bars next to toilet Medical/Surgical History: Current: has Arteriosclerotic cardiovascular disease; Balance problem; Chronic post-traumatic headache, not intractable; Depression with anxiety; Diverticular disease of colon; Essential (primary) hypertension; Hypercholesterolemia; Injury of head; Obesity; ABDOULAYE (obstructive sleep apnea); Traumatic brain injury with loss of consciousness ([facility]) ([facility]); Trigeminal neuralgia; Unspecified rotator cuff tear or rupture of right shoulder, not specified as traumatic; Vertigo; Leg pain, anterior, left; Congestive heart failure ([facility]) ([facility]); Stroke determined by clinical assessment ([facility]) ([facility]); and CVA (cerebral vascular accident) ([facility]) ([facility]) on their problem list. Past: has a past medical history of Abnormal stress test, Breathlessness on exertion, Chest pressure, Diverticulosis, HLD (hyperlipidemia), HLD (hyperlipidemia), Hypertension, ABDOULAYE (obstructive sleep apnea), Post concussive syndrome, Seizure disorder ([facility]) ([facility]), and Trigeminal neuralgia. has a past surgical history that includes ectropion repair (01/09/08); blepharoplasty (01/15/08); and Rotator cuff repair (Right, 01/14/2019). Current Medications: Current medications reviewed Body Functions and Performance Skills Cardiovascular/Respiratory Systems Function: Vital Signs Vital Signs with Activity Comment: Semi-reclined in bed prior: RO=577/76, Sitting EOB: [birth year], Semi-reclined in bed after: PW=948/73. Nursing notifed and aware Mental Functions: Arousal, Attention, and Cognition: No problems noted Orientation Level: Oriented X 4 Following Commands: Follows all commands and directions without difficulty Behavioral Characteristics: Pleasant and talkative, Pleasant and cooperative Sensory Functions: Upper Quarter General: Intact C2-T1 Left Right Upper Quarter Proximal: Diminished Additional Comments: Patient reports a slight difference in sensation from right to left upper extremtites. Vision - Basic Assessment Current Vision: Does not wear glasses Additional Comments: Patient able to read distance text and near text without difficulty. Patient demonstrated no deficits in scanning and tracking screen. Reports no changes in vision. Neuromusculoskeletal and Movement Related Functions: Range of Motion: Within normal limits Strength: Within normal limits except as noted Throughout: Bilateral upper extremities Strength Additional Comments: Lower extremity manual muscle testing not formally performed, strength observed to be >3/5 with gross movement Skin and Related Structure Functions: Skin General Assessment Additional Comments: Patient has brusing to forearms from IVs Areas of Occupation and Performance Skills Basic Activities of Daily Living: Additional Comments: Unable to mobililze patient past EOB this date due to high blood pressure. From observation in bed mobility, ROM, and strength, anticipate that patient is able to complete all her basic self care tasks at this time with increased time. Mobility Additional Comments: Patient completed supine<>sit transfers with modified independence with head of the bed up. Patient sat EOB unsupported with independence and no report of dizziness or lightheadedness. Performing sit to supine transfer and scooting up in bed patient reported feeling like she ran a marathon. Nursing made aware. Informed Consent: The patient consented to the Occupational Therapy evaluation. The patient agrees to and understandsthe Occupational Therapy treatment plan and goals. Interventions Completed Today: Time: 14:30 Total Treatment Time (minutes): 35 Timed Code Treatment Minutes: 16 Procedures: Self-care/home management Self-Care/Home Management Minutes: 16 Self-Care/Home Management 1: Educated patient on energy conservation techniques, activity modification, pacing , breathing exercises, balanced schedule, safe home environment set up, and use of shower chair upon return home. Patient participated in discussion and verbalized understanding. Self-Care/Home Management 2: Instructed patient on continual use of right upper extremity in functional tasks and with strengthening using a foam block or stress ball. Instructed in gross grasp exercises. Patient verbalized understanding and reports great progress since admission to hospital. Patient Status at the End of the Therapy Session, The patient was left in the: bed with the: Call valderrama in reach Patient Status at the End of the Therapy Session Comments: With nurse practitioner Additional information may be available in the medical record. Patient/Family Education: Activity/Work/Community: Activity modification, Balanced schedule, Pacing, Activity/energy conservation Braces and Equipment: Adaptive equipment/durable medical equipment Exercise: Breathing exercises Medical Information/Signs and Symptoms: Vital sign response Recommendations: Discharge recommendations/planning Safety: Safety, Home safety precautions, Fall prevention Therapy Specific: Role of occupational therapy Learner: Patient Method: Verbal Barriers to Learning: None Outcome: Verbalized understanding, Returned demonstration, Needs practice Team Communication Notified: Nurse When: Prior to therapy session, During therapy session, After therapy session By: [id number] communication About: Patient status, discharge recommendations and high BP ASSESSMENT: Patient appropriate for OT evaluation. Patient presents with impairments including high blood pressure and feeling exerted following minimal activity. Unable to mobilize past EOB this date due to elevated high blood pressure. From observation and assessment of functional transfers, ROM, and strength patient appears to be near baseline level of functioning with patient verbalizing agreement. Once medically stabilized, anticipate patient able to return home with assist from her spouse as needed. If patient remains in hospital, she would benefit from a follow-up OT visit to further assess functional mobility and ADLs to ensure safe discharge home. The patient's rehabilitation potential is: good Progress may be improved by the following patient strengths: support system, insights into deficits, independent prior to admission Progress may be affected by the following patient barriers: vital signs unstable Short Term Goals: Time Frame: n/a [facility] Goals: Time Frame: 1 week Goal: Patient will complete lower body dressing with independence Goal: Patient will complete functional standing task for ~6 minutes with modified independence Goal: Patient will complete toilet transfer with modified independence Goal: Patient will verbalize understanding of energy conservation and home discharge recommendations PLAN: Occupational therapy will be provided by the occupational therapist and/or acute care occupational therapist when medically appropriate Frequency: Follow-up visit only Intensity: 15-45 minutes Interventions May Include: Self-care/home management, Therapeutic exercise, Therapeutic activities Patient/Family Education: Discharge planning, Role of physical therapy/occupational therapy/rehabilitation, Safety, Falls Prevention, Symptom management Further Data: Continued evaluation, Self-care assessment, Functional mobility assessment Recommended Discharge Destination: Home with assistance/supervision as needed Equipment Recommended: None HALLEY BRAVO OT, 03/23/2021, 16:19 * Halley Bravo OT - 03/23/2021 1520 EST [facility] Acute Therapy [facility] [place] [facility] Contact Note Date of Service: 03/23/2021 Priority for discharge received. OT evaluation and treatment completed. Full note to follow. Patient BP remained high and was at 202/77 while sitting EOB. Nursing notified. Patient also reported feeling exerted while completing bed mobility. Despite not mobilizing beyond EOB, patient appears to be functioning at her baseline level in regards to ADLs. When medically ready, patient appears appropriate for discharge home with assist from spouse as needed. HALLEY BRAVO OT, 03/23/2021, 15:20 * Haleigh Benavides RN - 03/23/2021 1430 EST Initial Case Management/Social Work Assessment and Discharge Plan/Readmission Risk Assessment REASON FOR ADMISSION: CVA Patient understands reason for admission: Yes PATIENT INFO VERIFIED: PCP, Contact Info, Address [address] [facility] Type of housing (single family, condo, apartment, jail, single room occupancy, [facility] funded hotel room, group assisted) - aprt Who does the patient live with? spouse Does the patient have access to their own bedroom/bathroom/kitchen - or is it shared with others? shared LIVING ARRANGEMENTS AND ACCESSIBILITY ISSUES: Living Arrangements: Apartment, Spouse / significant other Levels: 1 Stairs to enter: 0 Handicap access: Elevator Bathroom located on bedroom level?: Yes What in home social supports are available to the patient? Spouse / significant other Is 24/7 care available? Yes ADVANCED DIRECTIVES, POA &/or COLST IN PLACE: Healthcare Directive: No, patient does not have advance directive for healthcare treatment Information Provided on Healthcare Directives: No Information on Healthcare Directives Requested: No Patient Requests Assistance: No DIRECTIVES FOR FINANCES: TRANSPORTATION: Transportation: Family Transportation Additional Details: and dtr Adriana Patient expects to be discharged to: Home CULTURAL, EVANGELICAL and/or LANGUAGE factors affecting health care/discharge planning: Spiritual/Cultural Requests: None Insurance Information: Medical Insurance: Yes Type of insurance: Medicare, Medicaid Medicare type: A, B Medicaid Type: Community Referred to patient financial services: No Nutrition: No concerns DISCHARGE RISK ASSESSMENT: Total # selected above: Tentative plan to address the risk of re-hospitalization for those at HIGH MODERATE RISK: RAPT TOOL: Patient expects to be discharged to: Home SBIRT: No needs identified FUNCTIONAL STATUS: I have always taken care of myself Activities patient requires assistance: None Assistive Device: None COMMUNITY RESOURCES/SUPPORTS: Primary Care Provider: Otis Gee PCP Verified: Specialists: None Type of Home Health Services: None DME Provider: Pharmacy: [id number] - [place], [place] - [address] [place] [address] Home Health: [facility], [place], Other: POST HOSPITAL TRANSITION PLAN: CM met with patient. She lives in an elevator-accessible apartment with her . She reports that she has been fully independent with ADLs and has been driving. She does her own med management. Her daughter Adriana is supportive and lives in [place]. PT recommending home PT; OT's eval is pending. Home health services offered to patient and she chose [facility], [place], ; referral made for PT and possibly OT services. Patient's daughter Adriana updated with plan for likely discharge tomorrow. Adriana confirms that they have a walker for patient to borrow. HALEIGH BENAVIDES RN HALEIGH BENAVIDES RN 03/23/2021 14:32 * Melinda Almendarez RN - 03/23/2021 1413 EST PT recommending patient d/c home with supervision assist once medically stable. Will dc AR referral * Ching Bower PT - 03/23/2021 1218 EST [facility] Acute Therapy [facility] Therapy Encounter Note Date of Service: 03/23/2021 SUBJECTIVE: Patient/Caregiver States: I am tired today, I don't knwo why but really tired OBJECTIVE: Interventions Completed Today: Time: 11:00 Total Treatment Time (minutes): 25 Timed Code Treatment Minutes: 25 Procedures: Therapeutic activities Therapeutic Activities 1: Patient found in bed agreeable to PT. Supine to sit independent, sit to stand independent, patient ambualted 150 feet with rolling walker mod independent, supervision with no assisitive device. Discussed pacing. patient complains of feeling strange BP after ambulation 186/61, HR 67, 97% on room air. Left patient in bed, patient needing to rest Patient Status at the End of the Therapy Session, The patient was left in the: bed with the: Call valderrama in reach Additional information may be available in the medical record. Patient/Family Education: Recommendations: Discharge recommendations/planning Safety: Safety Therapy Specific: Role of physical therapy Learner: Patient Method: Verbal Barriers to Learning: None Outcome: Verbalized understanding, Returned demonstration, Needs practice Team Communication Notified: Nurse When: After therapy session By: [id number] communication About: mobility and high BP ASSESSMENT: Patient improved today. Able to ambulate in hallways. Recommend discharge home with rolling walker and home health PT. Patient with high BP today, RN aware. PLAN: Continue per established treatment plan Patient/Family Education: Discharge planning, Role of physical therapy/occupational therapy/rehabilitation, Safety Further Data: Continued evaluation Recommended Discharge Destination: Home with assistance/supervision as needed Therapy Specific Services: Home therapy Equipment Recommended: Mobility Equipment Mobility Equipment: Walker Walker Specifics: Rolling walker - 2 wheels Ching Bower, PT 03/23/2021 12:47 * Janell Jj APRN - 03/23/2021 1058 EST Neurology Progress Note Admit Date: 03/20/2021 Hospital day: LOS: 2 days Date of Service: 03/23/2021 Procedure/Diagnosis: left frontal lobe infarction PCP: Otis Gee Code Status: Full Code Chief Complaint: R arm weakness and fall Subjective: Feeling stressed because she wants to go home Current Facility-Administered Medications Medication Route Frequency ??? artificial saliva solution 5 mL oral PRN ??? aspirin EC tablet 81 mg oral DAILY ??? atorvastatin (LIPITOR) tablet 40 mg oral DAILY ??? buPROPion (WELLBUTRIN SR) SR tablet 150 mg oral BID ??? clopidogreL (PLAVIX) tablet 75 mg oral DAILY ??? dextrose 50 % solution 12.5 g intravenous PRN ??? enoxaparin (LOVENOX) injection 40 mg subcutaneous DAILY ??? furosemide (LASIX) tablet 20 mg oral DAILY ??? glucagon injection 1 mg intramuscular PRN ??? insulin aspart U-100 (NOVOLOG FLEXPEN) injection subcutaneous TID WC ??? [START ON 03/24/2021] losartan (COZAAR) tablet 100 mg oral DAILY ??? losartan (COZAAR) tablet 50 mg oral Now Review of Systems: A ten point review of systems was performed and was negative except for pertinent positives noted in the HPI Objective/Physical Exam: VS current: Temp: 37 ??C (98.6 ??F) Pulse: 59 Resp: 18 BP: 165/85 SpO2: 96 % O2 Flow Rate (L/min): 0 l/min Data Review: CT ANGIO HEAD NECK ?? Result Date: 03/21/2021 Subtle region of hypodensity in the left frontal lobe concerning for infarction; further evaluationwith MRI recommended. No acute hemorrhage, mass lesion, or midline shift. 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 No additional high grade stenosis or occlusion of the major arterial vasculature of the head and neck. Multiple thyroid nodules, the least measuring up to 3 cm in diameter. Complete evaluation by thyroid ultrasound recommended on a non-urgent outpatient basis. 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 STENOSIS REFERENCE: MILD: < 50% MODE RATE: 50-69% SEVERE: 70-89% HAIRLINE/CRITICAL: 90-99% OCCLUDED: 100% There is a difference between this interpretation and that provided by the preliminary resident report which requires non-urgent notification. The finding of a right ICA aneurysm was discussed with Maryana Capellan on 03/21/2021 at approximately 10:30 AM. I have personally reviewed the images and the above interpretation and agree with the findings. ?? MR HEAD WO CONTRAST ?? Result Date: 03/21/2021 Acute infarction in the left frontal lobe including a small cortical ribbon of the left precentral gyrus. No parenchymal hemorrhage. Findings were communicated by Dr. Stephon Jones by phone to Ryley at the time of this dictation on 03/21/2021 3:51 AM. I have personally reviewed the images and the above interpretation and agree with the findings. Labs: CBC: Lab Results Component Value Date WBC 10.45 03/23/2021 RBC 3.76 (L) 03/23/2021 HGB 11.2 (L) 03/23/2021 HCT 32.6 (L) 03/23/2021 MCV 87 03/23/2021 MCH 29.8 03/23/2021 MCHC 34.4 03/23/2021 PLT 255 03/23/2021 NEUTROABS 9.30 (H) 03/20/2021 BMP: Lab Results Component Value Date NA 138 03/23/2021 K 4.1 03/23/2021 CL 108 03/23/2021 CO2 28 03/23/2021 BUN 14 03/20/2021 CREATININE 0.79 03/23/2021 MG 2.10 01/15/2019 Other studies: TTE 03/21/2021 Impressions ? Left??Ventricle: The left ventricular cavity was normal in size. Left ventricular systolic function was normal with an ejection fraction of 60-65%. Left ventricular wall thickness was normal. Left ventricular wall motion was normal; there were no regional wall motion abnormalities. ??? Right??Ventricle: The right ventricular cavity was normal in size. Right ventricular systolic function was normal. ??? Aortic??Valve: The aortic valve structure was probably trileaflet. The aortic leaflets were mildly thickened. There was mild aortic valve stenosis. ??? Mitral??Valve: There was mild annular calcification. Assessment/Problems/Plan: Andria Ivan Lopez??is a 80 y.o.??female??with a PMHx significant for??HTN , ABDOULAYE, CHF depression who presented to [facility] on 03/20/2021 as stroke code??for??R sided weakness??and aphasia at home. CT head and neck??did not show hemorrhage or proximal occlusion (distal L M2 occlusion). Found to have acute left frontal lobe ischemic stroke.?? Expressive aphasia has resolved upon interview on 03/22. Physical therapy originally recommended acute rehab, but her strength improved significantly as wellas her aphasia. She is now recommended for home with supervision. She was restarted on her SEGREGATOR anti-hypertensive's. Her Losartan was increased to 100 mg daily. Etiology of stroke cryptogenic. Plan Acute frontal lobe ischemic stroke w/o tPA:?? -admitted to Neurology service -Vitals: q4h with stroke neuro exam ?- neurology resident to evaluate if change in neurologic status and consider need for stat imaging - permissive hypertension for initial 24 hours (goal SBP<220 and DBP<110): ?-Restarted on SEGREGATOR anti-hypertensives, Daily 20 mg lasix and 50 mg Losartan.Her Losartan was increased to 100 mg daily due to SBP >160 mmHg? -Loading dose of Plavix and started ??on 75 mg daily along with aspirin 81mg daily for 21 days?? -Avoid hyperthermia -Hyperglycemia management: SSI with aspart -CT head/CTA:??Completed -MR head:?? Completed?? -Tele:??x 48 hr -Echo: TTE pending -Labs:??LDL, TSH, HbA1c within normal limits -PT/OT recs appreciated -Passed bedside swallow?? -security monitor on discharge ?? Chronic conditions: Hypertension - SEGREGATOR antihypertensives restarted 03/23;?? Daily 20 mg lasix and 50 mg Losartan. Her Losartan was increased to 100 mg daily due to SBP >160 mmHg? Incidental findings on work up:?CTA head and Neck: ?? 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 ?? Multiple thyroid nodules, the least measuring up to 3 cm in diameter. Complete evaluation by thyroid ultrasound recommended on a non-urgent outpatient basis VTE Prophylaxis: Pharmacologic Prophylaxis: Enoxaparin (Lovenox) 40 mg SQ daily Code: Full Code Discharge Plan: Home tomorrow; daughter updated and will be transporting to home post discharge Janell Jj, TITLE INVESTIGATOR 03/23/2021 15:31 Associated attestation - Miranda Montoya MD - 03/23/2021 2319 EST Attestation: I saw and examined the patient on 03/23/2021. I agree with the FRANK's findings and plans as documented except as modified below. Re-evaluated by PT and was deemed appropriate for discharge to home by both PT and OT, though discharge was postponed due to HTN in 200s. Will monitor overnight and increase anti HTN, anticipate discharge on 03/24. Miranda Stone MD Vascular Neurology Attending * Susan Reeves MS [employer] - 03/22/2021 0506 EST Speech-Language Pathology Initial Note [employer] Diagnosis: Aphasia: Medical Diagnosis: CVA (cerebral vascular accident) ([facility]) ([facility]) [I63.9] Stroke determined by clinical assessment ([facility]) ([facility]) [I63.9] Date of Service: 03/22/2021; 14:00 Date of Onset: 03/20/2021 Date of Referral: 03/21/21 Start Time: 1000 Total Therapy minutes: 28 minute(s) SUBJECTIVE: My speech is vastly improved! In the beginning my speech was very poor and no one could understandme. OBJECTIVE: History: MARIAMA DAVIS MD 03/21/2021 Andria Lopez is a 80 y.o. female with a PMHx of HTN , ABDOULAYE, CHF depression who presented to [facility] as stroke code. LKN unknown when she developed R sided weakness. She fell and her neighbor found her confused and called EMS. Upon EMS arrival patient was aphasic with R arm and facial droop. Upon arrival to [facility] patient's symptoms improved. NIHSS 3 with R facial droop, pronation on R side and mild dysarthria. ?? Her mRS: 0. B and BP 140 systolic upon arrival to [facility]. Patient' symptoms fluctuates in the emergency department and got worse 10 min later with expressive aphasia (naming/repeating) which gotbetter 2 min later. MR HEAD WO CONTRAST (Order [id number]) Status: Final result (Exam End: 03/21/2021 ??3:16) IMPRESSION Acute infarction in the left frontal lobe including a small cortical ribbon of the left precentral gyrus. No parenchymal hemorrhage. ?? Past Medical History: Past Medical History: Diagnosis Date ??? Abnormal stress test reversible anteroseptal defect, with equivocal ST changes ??? Breathlessness on exertion ??? Chest pressure on exertion ??? Diverticulosis ??? HLD (hyperlipidemia) ??? HLD (hyperlipidemia) ??? Hypertension ??? ABDOULAYE (obstructive sleep apnea) ??? Post concussive syndrome poor memory ??? Seizure disorder (HCC-CMS) (HCC) ??? Trigeminal neuralgia Current Evaluation: The [place] Diagnostic Aphasia Evaluation (BDAE) short form and [place] Naming Test (BNT) short form were utilized to evaluate current speech-language/cognitive-linguistic function. Behavior: During evaluation today, patient presented as alert, cooperative, motivated and engaged. Speech-Language Function: [place] Diagnostic Aphasia Examination Short Form Auditory Comprehension: Basic Word Discrimination: 15 /16 Commands: 10 /10 Complex Ideational Material: 6 /6 Recitation: Automatic Sequences: 4 /4 Repetition: Words:5 /5 Sentences: 2 /2 Naming: Responsive: [place] Naming Test: Reading: Sentence /Paragraph Comprehension: 10 (long form) Auditory Comprehension: Patient able to follow task instructions and answer questions in conversation without need for modification or cueing. Benjamin-Motor Evaluation/Motor Speech: Patient with adequate articulation, volume, and resonance to maintain 100% speech intelligibility with this unfamiliar listener. Daughter states speech at baseline. Voice: Patient with vocal quality and pitch appropriate for her age and gender. Augmentative/Alternative Communication: Not indicated secondary to patient's verbal expression skills. Social-Pragmatic Skills: Eye contact: Patient with good eye contact throughout session. Facial Expression/Affect: Patient demonstrates full and appropriate affect. Prosody/Inflection: Patient demonstrates good vocal inflection. Initiation of Conversation: Patient demonstrates good initiation in conversation. Turn-Taking: Patient demonstrates good attention to non-verbal cues. Patient discourse noted to be functional. Occasional inappropriate laughter, when asked, patient states I have always smiled. Cognitive-Linguistic: Orientation: Patient is oriented to person, place and time. PATIENT/FAMILY EDUCATION: Patient/Family Education: Patient/Family education and training was completed today including the role of Speech-Language Pathology, results of today's exam/recommendations, communication strategies and questions were addressed. Learner: patient and daughter Method of Education: Verbal Barriers to Learning/Education: none Patient: was able to verbalize understanding of information Family: was able to verbalize understanding of information Assessment /CLINICAL IMPRESSIONS: Andria Lopez is a 80 y.o. female with a PMHx of HTN , ABDOULAYE, CHF depression who presented to [facility] as stroke code. The patient's presentation is mildly impaired based on the results of today's test results.,The patient presents with functioning consistent with Receptive (reading comprehension) and Expressive Aphasia (verbal). Patient has a reliable yes/no response to complex ideational material and is able to follow multistep commands. Patient presents with minimal word retrieval deficits. Reading comprehension minimally impaired at paragraph level, slight impulsivity noted. Patient currently able to communicate basic wants and needs and direct her medical care.Given patient's age, independence prior to admission, and social/occupational demands, she would benefit from continued SLPintervention. and Based on the patient's premorbid level of functioning, medical diagnosis, comorbidities and patient/family support, the patient's prognosis is considered: Good. GOALS: Short Term Goals: The patient will complete the [employer] evaluation in the areas of: written expression and higher level language. Plan /RECOMMENDATIONS: Provide [employer] services on a consult model of care. Word-Finding Strategies There are many word-finding strategies people with aphasia can use when they can???t think of the word they want to say. Each person will find some strategies more helpful than others, so it???s a good idea to practice them all to learn which ones work best for you. Often a combination approach is most useful, trying one and then another. Each strategy gives a bit more information to the listenerand stimulates the area of your brain that???s refusing to give up the word. Here are 10 helpful word-finding strategies for people with aphasia: 1. Delay: Just give it a second or two. With a bit of extra time, the word may pop out on its own. Be patient with yourself, and ask your partner to give you time. ???Do you have any??? um??? oh??? one sec??? any scissors??? 2. Describe: Give the listener information about what the thing looks like or does. Any extra information can help them know what you???re talking about. It may even help you to say the word. ???Do you have any??? oh dear, those things that cut? Scissors!?? 3. Association: See if you can think of something related. Even if it???s not quite right, it may prompt the word or convey the meaning. ???Do you have any??? ah my??? they???re not knives, but like that??? 4. Synonyms: Think of a word that means the same or something similar. ???Do you have any???clippers??? 5. First Letter: Try to write or think of the first letter of the word. Scan the alphabet to see ifeach letter triggers anything for you. ???Do you have any??? (traces an S in the air)??? scissors??? 6. Gesture: Use your hands or body to act out the word, like playing a game of [employer]. Even gesturing with your hands in a non-specific way or tapping the table may help activate the brain. ???Do you have any??? (makes cutting gesture with fingers)??? 7. Draw: Sketch out a quick picture of what you???re trying to say. You don???t have to be an artist to use drawing to communicate. ???Do you have any??? (draws scissors on a notepad)??? 8. Look it Up: Think if there???s somewhere the word is written down or pictured. A communication notebook, the [employer] frank in your phone, or a ticket stub in your pocket may hold the word. ???Do you have any??? (points to scissors in a picture dictionary)??? 9. Narrow it Down: Give the general topic or category. Is it a person, place, or thing? A family member or a friend? Stating the topic can help your listener predict what you might be trying to say by providing some context. ???Do you have any???oh???they???re office supplies.?? 10. Come Back Later: If you can???t think of the word and your partner can???t guess, it???s okay to give up for now. Our brains work out problems while we do other things, so it???s possible the word will simply pop out later. This is a last resort, so try other strategies first. ???Do you have any??? [tries every other strategy]??? oh, never mind??? I???ll ask you later.?? Susan Reeves MS, [employer] Speech Language Pathologist Pager #[phone] Pager # [phone] (Float [employer] Department) SUSAN REEVES MS [employer] 03/22/2021 13:59 * Ching Bower, PT - 03/22/2021 1238 EST [facility] Acute Therapy [facility] Physical Therapy Initial Evaluation Note Date of Service: 03/22/2021 Diagnosis: Acute Ischemic Stroke w/o tPA: Reason for Referral: Evaluate and treat Mobility Precautions Activity: Activity as tolerated SUBJECTIVE: Patient/Caregiver States: I am getting better, I am moving better Pain Description: No pain reported during interview OBJECTIVE: Patient Profile: Patient is a 80 y.o. female admitted on 03/20/2021 secondary to CVA (cerebral vascular accident) ([facility]) ([facility]) The patient [place] [id number] History of Present Illness / Injury Current Illness / Injury: Andria Lopez is a 80 y.o. female with a PMHx significant for HTN , ABDOULAYE, CHF depression who presented to [facility] as stroke code for R sided weakness after she was foundby her neighbor with unclear LKN. NIHSS on arrival was 3 however reportedly she had aphasia at homeand she developed aphasia 20 min after arrival to [facility] which improved 2 min later. She is not a tPA candidate given unclear LKN and as her symptoms are mild and not disabling. CT head and CTA did not show hemorrhage or proximal occlusion (distal L M2 occlusion). Patient is not a thrombectomy candidate. Patient meets criteria for DAPT for at least 21 days. Loaded with Plavix and started on [id number] mg daily. ASA 81 mg daily will be continued as well. Support Support Person: Spouse Amount of Support: 24 hour supervision Prior Level of Function: Level of Assistance Throughout: Independent Medical/Surgical History: Current: Patient Active Problem List Diagnosis ??? Arteriosclerotic cardiovascular disease ??? Balance problem ??? Chronic post-traumatic headache, not intractable ??? Depression with anxiety ??? Diverticular disease of colon ??? Essential (primary) hypertension ??? Hypercholesterolemia ??? Injury of head ??? Obesity ??? ABDOULAYE (obstructive sleep apnea) ??? Traumatic brain injury with loss of consciousness ([facility]) ([facility]) ??? Trigeminal neuralgia ??? Unspecified rotator cuff tear or rupture of right shoulder, not specified as traumatic ??? Vertigo ??? Leg pain, anterior, left ??? Congestive heart failure ([facility]) ([facility]) ??? Stroke determined by clinical assessment ([facility]) ([facility]) ??? CVA (cerebral vascular accident) ([facility]) ([facility]) Past: Past Medical History: Diagnosis Date ??? Abnormal stress test reversible anteroseptal defect, with equivocal ST changes ??? Breathlessness on exertion ??? Chest pressure on exertion ??? Diverticulosis ??? HLD (hyperlipidemia) ??? HLD (hyperlipidemia) ??? Hypertension ??? ABDOULAYE (obstructive sleep apnea) ??? Post concussive syndrome poor memory ??? Seizure disorder ([facility]) ([facility]) ??? Trigeminal neuralgia Past Surgical History: Procedure Laterality Date ??? BLEPHAROPLASTY 01/15/08 bilateral brow lift ??? ECTROPION REPAIR 01/09/08 bilateral lower lids ??? ROTATOR CUFF REPAIR Right 01/14/2019 Medications Current Medications: Current medications reviewed Arousal, Attention, and Cognition: General Assessment Arousal, Attention, and Cognition: No problems noted Cardiopulmonary: Vital Signs Vital Signs with Activity Comment: HR 60, 150/55, 97% on room air Integumentary/Anthropometric: Skin General Assessment Skin and Related Structure Functions: No problems noted Range of Motion and Joint Integrity: General Assessment Range of Motion: No problems noted Muscle Performance: Strength: Within normal limits Sensation, Reflexes, and Nerve Integrity: Sensory Functions: No problems noted (light touch WNL, decreased coordination right UE finger to nose, decreased coordination right LE, ataxia) Neuromotor Function/Development: Balance, Mobility, and Gait: Static Sitting Balance Static Sitting Balance: No problems noted Static Standing Balance Level of Assistance: Minimal contact assistance Mobility General Mobility: Impaired Additional Comments: patient found sitting in recliner chair, sit to stand moderate assist of one PT face to face for support, cathytent took steps to transfer right LE buckled needing moderate assist,sit to stand from bed, patient ambulated 5 feet moderate assist of one, right LE melissa Self-Care, Home Management, Work, Leisure: Informed Consent: Informed Consent: The patient consented to the Physical Therapy evaluation. The patient agrees to and understands the Physical Therapy treatment plan and goals. Interventions Completed Today: Time: 11:15 Total Treatment Time (minutes): 25 Timed Code Treatment Minutes: 0 No interventions completed today Patient Status at the End of the Therapy Session, The patient was left in the: bed with the: Call valderrama in reach Additional information may be available in the medical record. Patient/Family Education: Recommendations: Discharge recommendations/planning Safety: Safety Therapy Specific: Role of physical therapy Learner: Patient Method: Verbal Barriers to Learning: None Outcome: Verbalized understanding, Returned demonstration, Needs practice Team Communication Notified: Nurse When: After therapy session By: [id number] communication About: mobility ASSESSMENT: The patient presents with a physical therapy diagnosis of: Impaired mobility The patient presents with a physical therapy diagnosis of: decreased balance, decreased motor control right UE and LE Patient seen for PT evaluation. Per patient and daughter she has improved significantly since yesterday. Patients main limiting barrier is right UE and LE decreased motor control, decreased balance with buckling of right LE with ambualtion. She is below her baseline and currently I recommend acute rehab. I do anticipate steady progress as she has a good understanding of her impairments and she iscognitively intact. PT will continue to follow in this setting. Short-Term Goals: Time Frame: n/a Long-Term Goals: Time Frame: 2-3 weeks Goal: Independent bed mobility Goal: Independent sit to stand transfers Goal: Mod independent ambulation 150 feet PLAN: Continue per established treatment plan Frequency: Times per week Times Per Week: 2-3 Intensity: 15-45 minutes Duration: Duration of hospitalization Interventions May Include: Therapeutic activities, Therapeutic exercise, Neuromuscular re-education, Gait training Patient/Family Education: Discharge planning, Role of physical therapy/occupational therapy/rehabilitation, Safety Further Data: Continued evaluation Recommended Discharge Destination: Acute rehabilitation Ching Bower, PT 03/22/2021 13:30 * Maryana Capellan MD - 03/22/2021 0655 EST Neurology Progress Note Service Date: 03/22/2021 Admit Date: 03/20/2021 23:24 Principal/Presumed Diagnosis: CVA (cerebral vascular accident) ([facility]) ([facility]) 24hr Events: - afebrile , VSS - NAEON Subjective Patient she feels well and thinks her speech is improving this AM. Eating, drinking, voiding, ambulating independently w/o issue. Review of Systems A complete 10 point ROS was performed. Pertinent findings listed above in HPI, otherwise negative. Objective Vitals Temp: [35.6 ??C (96.1 ??F)-36.6 ??C (97.9 ??F)] , Heart Rate: [58 BPM-72 BPM] , Pulse: [59-61] , Resp: [16-20] , BP: (117-177)/(40-93) , SpO2: [97 %-98 %] , Numeric Pain Level (Scale 1-10): 0 Weight: Weight : 91.6 kg (201 lb 15.1 oz) Body mass index is 39.13 kg/m??. Intake/Output Summary (Last 24 hours) at 03/22/2021 0655 Last data filed at 03/21/2021 2245 Gross per 24 hour Intake 883.33 ml Output 400 ml Net 483.33 ml Physical Exam: GEN: Adult female resting comfortably in bed. AAOx3, pleasant, cooperative, NAD. HEENT: Normocephalic, atraumatic, no scleral icterus, no conjunctival pallor, MMM, benign oropharynx. CV: RRR. LUNG: Breathing comfortably on on room air ABD: Soft, non-tender, non-distended. EXT: Extremities symmetrical. No peripheral edema, erythema, cyanosis, or tenderness to palpation. SKIN: Warm, dry, no rashes present on visible skin. Neurological exam: MENTAL STATUS: AAOx3. Follows simple/complex commands. Affect normal with congruent mood. LANGUAGE: Speech clear, spontaneous, and fluent. With minimal expressive aphasia improved from admission with only difficulty saying 1 word on exam today. Nodysarthria. Naming, repetition, comprehension intact. Volume and intonation grossly normal. CRANIAL NERVES: CN II: Visual gutierrez full to confrontation and double simultaneous stimulation, acuity grossly intact, PERRLA. CN III-IV, : Pupils 4 mm (R/L). EOMMs intact with no nystagmus, gaze palsy or preference. CN V: Normal masseter bulk. V1-V3 intact to LT. CN VII: Face symmetric bilaterally. Smile symmetric. Buries eyelashes and raises eyebrows symmetrically. Nasolabial folds and palpebral folds symmetric bilaterally CN VIII: Hearing grossly intact. CN IX-X: No dysarthria. Palate elevates symmetrically with no uvular deviation. CN XI: Shoulder shrug symmetric with full strength. CN XII: Tongue midline, no deviation, atrophy, or fasciculations. MOTOR: Normal muscle bulk and tone. No pronator drift or orbiting. No tremors or abnormal movementsnoted during exam. Formal strength testing as follows: Upper Extremity Strength Shoulder abd (C5) Elbow flexion (C5,6) Elbow ext (C7) Wrist extension (C7) Finger abd (C8, T1) Water Tender (T1) Right 4/5 4/5 4/5 4/5 4/5 4/5 Left 5/5 5/5 5/5 5/5 5/5 5/5 Lower Extremity Strength Hip flexion (L2,3) Knee extension (L3,4) Ankle DF (L4,5) Knee flexion (L5,S1) Ankle PF (S1,2) Right 4/5 4/5 4/5 4/5 4/5 Left 5/5 5/5 5/5 5/5 5/5 SENSORY: Intact to light touch and pin prick symmetrically in proximal/distal UE/LEs. Double simultaneous stimulation intact. REFLEXES: DTRs: Right Left Biceps 2+ 2+ Triceps 2+ 2+ Bracheoradialis 2+ 2+ Patellar 2+ 2+ Achilles 2+ 2+ Ankle clonus Absent Absent Plantar responses Flexor Flexor Wallace sign Negative Negative COORDINATION: RENETTA intact in upper/lower extremities with no dysdiadochokinesia. FTN/HTS intact bilaterally with no dysmetria or sensory/cerebellar ataxia. GAIT: Deferred. Labs I have personally reviewed Recent Labs 03/20/212335 WBC 12.93* HGB 12.4 HCT 37.4 PLT 303 Recent Labs 03/20/212335 NA 137 K 3.4* CO2 29 CL 101 CREATININE 1.04 Recent Labs 03/20/212335 PROTIME 11.2 INR 1.0 PTT 31 Recent Labs 03/20/212335 TROPONINI <0.034 Lab Results Component Value Date/Time CHOL 206 03/20/2021 23:36 LDLBASE 111 03/20/2021 23:36 HDL 59 03/20/2021 23:36 TRIG 178 03/20/2021 23:36 HGBA1C 5.7 (H) 03/20/2021 23:[address] ANGIO HEAD NECK Result Date: 03/21/2021 Subtle region of hypodensity in the left frontal lobe concerning for infarction; further evaluationwith MRI recommended. No acute hemorrhage, mass lesion, or midline shift. 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 No additional high grade stenosis or occlusion of the major arterial vasculature of the head and neck. Multiple thyroid nodules, the least measuring up to 3 cm in diameter. Complete evaluation by thyroid ultrasound recommended on a non-urgent outpatient basis. 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 STENOSIS REFERENCE: MILD: < 50% MODE RATE: 50-69% SEVERE: 70-89% HAIRLINE/CRITICAL: 90-99% OCCLUDED: 100% There is a difference between this interpretation and that provided by the preliminary resident report which requires non-urgent notification. The finding of a right ICA aneurysm was discussed with Maryana Capellan on 03/21/2021 at approximately 10:30 AM. I have personally reviewed the images and the above interpretation and agree with the findings. MR HEAD WO CONTRAST Result Date: 03/21/2021 Acute infarction in the left frontal lobe including a small cortical ribbon of the left precentral gyrus. No parenchymal hemorrhage. Findings were communicated by Dr. Stephon Jones by phone to GeorgeDouglas at the time of this dictation on 03/21/2021 3:51 AM. I have personally reviewed the images and the above interpretation and agree with the findings. XR PELVIS 1-2 VIEWS Result Date: 03/21/2021 Findings/impression: No visible fracture or dislocation. Moderate to severe degenerative changes ofthe hips. Moderate degenerative changes of the included spine, SI joints, and pubic symphysis. Calcific tendinopathy is seen at the iliac spines. Nonobstructive bowel gas pattern. Contrast is within the bladder from prior CTA. There is a cystocele. No acute abnormality identified in the right hip. This exam was not tailored for adequate assessment of the hips however. Dedicated radiographs of theright hip should be obtained if patient symptoms in the right hip persist. I have personally reviewed the images and the above interpretation and agree with the findings.. Assessment Andria Lopez is a 80 y.o. female with a PMHx significant for HTN , ABDOULAYE, CHF depression who presented to [facility] as stroke code for R sided weakness after she was found by her neighbor with unclear LKN. NIHSS on arrival was 3 however reportedly she had aphasia at home and she developed [id number] min after arrival to [facility] which improved 2 min later. She is not a tPA candidate given unclear L KN and as her symptoms are mild and not disabling. CT head and CTA did not show hemorrhage or proximal occlusion (distal L M2 occlusion). Found to have acute left frontal lobe ischemic stroke. Expressive aphasia has resolved upon interview on 03/22. Physical therapy at this time recommend acute rehab. Plan Acute frontal lobe ischemic stroke w/o tPA: -Will admit to Neurology service -Vitals: q4h with stroke neuro exam - neurology resident to evaluate if change in neurologic status and consider need for stat imaging - Allow permissive hypertension for initial 24 hours (goal SBP<220 and DBP<110): - hold home antihypertensives - 10 mg IV labetalol PRN (hold for HR <60) or 10 mg IV hydralazine -Avoid hyperthermia -Hyperglycemia management: SSI with aspart -CT head/CTA: Completed -MR head: Completed -Tele: x 48 hr -Echo: TTE pending -Labs: LDL, TSH, HbA1c within normal limits -PT/OT recs appreciated -Passed bedside swallow Chronic conditions: Hypertension -Hold SEGREGATOR antihypertensives VTE Prophylaxis: Pharmacologic Prophylaxis: Enoxaparin (Lovenox) 40 mg SQ daily Code: Full Code Discharge Plan: acute rehab Maryana Capellan MD 03/22/2021 Neurology Resident, PGY-1 Cortext or Pager [phone] Discussed w/ Neurology chief/attending, Dr. Stone Associated attestation - Miranda Montoya MD - 03/22/20212020 EST Attestation: I saw and examined the patient with Dr. Capellan on 03/22/2021. I agree with the resident's findings and plans as documented and have edited the note as indicated. Miranda Stone MD Vascular Neurology Attending documented in this encounter H&P Notes * Mariama Davis MD - 03/21/2021 0701 EST Stroke Note Service Date: 03/21/2021 Admit Date: 03/20/2021 23:24 Primary Care Provider: Otis Gee Referring MD:No ref. provider found Code Status: Prior Chief Complaint: R arm weakness and fall HPI Andria Lopez is a 80 y.o. female with a PMHx of HTN , ABDOULAYE, CHF depression who presented to [facility] as stroke code. LKN unknown when she developed R sided weakness. She fell and her neighbor found her confused and called EMS. Upon EMS arrival patient was aphasic with R arm and facial droop. Upon arrival to [facility] patient's symptoms improved. NIHSS 3 with R facial droop, pronation on R side and mild dysarthria. Her mRS: 0. B and BP 140 systolic upon arrival to [facility]. Patient' symptoms fluctuates in the emergency department and got worse 10 min later with expressive aphasia (naming/repeating) which gotbetter 2 min later. Review of Systems A ten point review of systems was performed and was negative except for pertinent positives noted in the HPI Past Medical History: Diagnosis Date Abnormal stress test reversible anteroseptal defect, with equivocal ST changes Breathlessness on exertion Chest pressure on exertion Diverticulosis HLD (hyperlipidemia) HLD (hyperlipidemia) Hypertension ABDOULAYE (obstructive sleep apnea) Post concussive syndrome poor memory Seizure disorder ([facility]) Trigeminal neuralgia Past Surgical History: Procedure Laterality Date BLEPHAROPLASTY 01/15/08 bilateral brow lift ECTROPION REPAIR 01/09/08 bilateral lower lids ROTATOR CUFF REPAIR Right 01/14/2019 Social History Tobacco Use Smoking status: Never Smoker Smokeless tobacco: Never Used Substance Use Topics Alcohol use: Yes Comment: occasionally No family history on file. Current Outpatient Medications Medication Sig aspirin 81 mg EC tablet Take 81 mg by mouth every 48 hours. buPROPion (WELLBUTRIN SR) 150 mg SR tablet Take 1 tablet by mouth twice daily furosemide (LASIX) 20 mg tablet TAKE 2 TABLETS BY MOUTH IN THE MORNING AND 1 IN THE AFTERNOON LORazepam (ATIVAN) 0.5 mg tablet 3 Times a Day as Needed as needed for ANXIETY LORazepam (ATIVAN) 0.5 mg tablet One every 8 hrs prn- max of two in 24 hours. losartan (COZAAR) 50 mg tablet Take 1 tablet by mouth once daily lovastatin (MEVACOR) 20 mg tablet Take 1 tablet by mouth once daily Allergies Allergen Reactions Amoxicillin-Pot Clavulanate Rash Flagyl [Metronidazole] Metoprolol Other (See Comments) heart failure? Penicillins Zithromax [Azithromycin] Objective Vitals Temp: [36.3 ??C (97.3 ??F)] , Heart Rate: [82 BPM-83 BPM] , Pulse: --, Resp: [20-22] , BP: (167-173)/(63-96) , SpO2: [96 %-100 %] , Numeric Pain Level (Scale 1-10): 0 Weight: Weight : 91.6 kg (201 lb 15.1 oz) Body mass index is 39.44 kg/m??. Neurological Exam NEURO: Mental status: The patient is alert, attentive, and oriented. Speech: mild dysarthria, no expressive aphasia Cranial nerves: CN II: Visual gutierrez are full to confrontation. Pupils are 4 mm and briskly reactive to light. CN III, IV, : EOMI, no nystagmus, no ptosis CN V: Facial sensation is intact to pinprick in all 3 divisions bilaterally. CN VII: Mild R facial droop CN VII: - CN IX, X: Phonation is normal. CN XI: Head turning and shoulder shrug are intact CN XII: Tongue is midline with normal movements and no atrophy. Motor: pronator drift of out-stretched arm on R side. Muscle bulk and tone are normal. LE: intact Sensory: light touch: intact in all extremities Coordination: Finger nose Finger: intact, no dysmetria Gait: - Pressure Ulcer Present on admission? No Labs I have personally reviewed Recent Labs 03/20/212335 WBC 12.93* RBC 4.27 HGB 12.4 HCT 37.4 MCV 88 MCH 29.0 MCHC 33.2 PLT 303 NEUTROABS 9.30* Recent Labs 03/20/21 233 NA 137 K 3.4* CL 101 CO2 29 BUN 14 CREATININE 1.04 Recent Labs 03/20/212335 PROTIME 11.2 INR 1.0 PTT 31 Recent Labs 03/20/212335 TROPONINI <0.034 Imaging Assessment Andria Lopez is a 80 y.o. female with a PMHx significant for HTN , ABDOULAYE, CHF depression who presented to [facility] as stroke code for R sided weakness after she was found by her neighbor with unclear LKN. NIHSS on arrival was 3 however reportedly she had aphasia at home and she developed advbtmd31 min after arrival to [facility] which improved 2 min later. She is not a tPA candidate given unclear L KN and as her symptoms are mild and not disabling. CT head and CTA did not show hemorrhage or proximal occlusion (distal L M2 occlusion). Patient is not a thrombectomy candidate. Patient meets criteria for DAPT for at least 21 days. Loaded with Plavix and started on Plavix 75 mg daily. ASA 81 mg daily will be continued as well. Plan as below: Plan Acute Ischemic Stroke w/o tPA: -Will admit to Neurology service -Vitals: q4h with stroke neuro exam - neurology resident to evaluate if change in neurologic status and consider need for stat imaging - Allow permissive hypertension for initial 24 hours (goal SBP<220 and DBP<110): - hold home antihypertensives - 10 mg IV labetalol PRN (hold for HR <60) or 10 mg IV hydralazine -Avoid hyperthermia -Hyperglycemia management: SSI with aspart -CT head/CTA: Completed -MR head: ordered -Tele: x 48 hr -Echo: TTE pending -Labs: LDL, TSH, HbA1c -PT/OT -Passed bedside swallow -Stroke prevention: -Antiplatelet: S/p 300 mg Plavix load; continue ASA 81 mg PO New start of clopidogrel 75 mg PO QD. -Statin: stop lovastatin and start Atorvastatin 40 mg PO QD -DVT ppx, SCDs -Dispo: pending Pt/OT Additional Information for Stroke Stroke code: Last Known Well Time: (excat time is unclear ) Date: 03/20/21 [facility], NIHSS: NIHSS Criteria 03/20/2021 Exam Date 03/20/2021 Exam Time 2339 LOC 0 LOC Questions 0 LOC Commands 0 Best Gaze 0 Visual 0 Facial Palsy 1 Left Arm, Motor 0 Right Arm, Motor 1 Left Leg, Motor 0 Right Leg, Motor 0 Limb Ataxia 0 Sensory 0 Best Language 0 Dysarthria 1 Extinction/Inatten. 0 Total Score 3 t-PA Decision: TPA Decision: No TPA admin Endovascular intervention considered?: Yes Is patient on telemetry?: Yes Arrhythmias noted while on telemetry: NSR Dysphagia screen prior to food/fluids/meds was performed per protocol. The patient passed swallow screen. Has the patient smoked at least one cigarette in the past year?: No Enrolled in a clinical research study?: No Personal Risk Factors: Hypertension Discharge Plan: Uncertain at this time MARIAMA DAVIS MD 03/21/2021 0:32 Associated attestation - Miranda Montoya MD - 03/21/2021 2304 EST Attestation: patient was discussed with Dr. Moeller over night and I personally saw and examined the patient with on 03/21/2021. I agree with the resident's findings and plans as documented and have edited the note as indicated. Miranda Stone MD Vascular Neurology Attending documented in this encounter Consult Notes * Timi Oh MD - 03/21/2021 0005 EST Neurointerventional Radiology Consult Note Name: Andria Lopez Reason for Consult: stroke thrombectomy Summary: 80 y.o. female presenting with fluctuating aphasia, right sided weakness. Last known well: Unknown. mRS: 0 NIHSS: 3 for R facial, R pronation, mild dysarthria CT ASPECTS: 10 CTA: Focal critical stenosis/occlusion of left M2 superior division CTP core: N/A CTP penumbra: N/A Recommendations: 80 y.o. female with left M2 MCA critical stenosis/occlusion, NIHSS 3 (fluctuating), unknown LKW. Not a candidate for mechanical thrombectomy due to good NIHSS and distal occlusion. Timi Oh MD PhD Neurointerventional Radiologist Pager #[phone] AHA Criteria for Mechanical Thrombectomy For patients presenting 0-6 hrs from last seen well: -Proven to Benefit- ICA/M1 occlusion mRS 0-1 Age > 18 NIHSS >= 6 ASPECTS >= 6 -Uncertain Benefit- M2/3 occlusion Basilar, proximal ALLEN/PROTOTYPE TECHNICIAN occlusion mRS > 1 ASPECTS < 6 NIHSS < 6 For patients presenting > 6 hrs from last seen well: -AMOR Criteria (6-24 hrs)- ICA/M1 occlusion NIHSS >= 10, mRS < 2 < 1/[address] or MRI Anticipated life expectancy >= 6 mo Age >= 80, core 0-20 cc, NIHSS >= 10 Age < 80, core 0-30 cc, NIHSS >= 10 Age < 80, core 31-51 cc, NIHSS >= 20 -DEFUSE Criteria (6-16 hrs)- Age < 90, mRS <= 2, NIHSS >= 6 Core < 70 cc Mismatch ratio >= 1.8 Penumbra >= 15 cc AHA recommends against intervention in patients > 6 hrs from last known well that do not meet AMOR/DEFUSE criteria documented in this encounter ED Notes * Margo Suh RN - 03/21/2021313 EST 309- Report from HARINDER Murguia. PT in MRI 0330 - returned from [facility] as charted, pt with improved speech. Attempted to ambulate pt to restroom, pt unsteady on feet with RLE weakness without drift and strong right foot flexion. Noted purple bruise over right hip. MD aware, xray ordered. 0615 - Sleeping on cart, wakes easily, purewick placed and pt repositioned to right side. Neuro unchanged 0735 - Wakes to voice, appears more drowsy, pt more dysarthric with more expressive aphasia than previous exam, continues with right facial droop/RUE weakness with no change in strength. Neuro paged. 0745 - Spoke with Neuro MD about fluctuations in pt speech, no new orders. 1000 - Neuro unchanged although expressive aphasia slightly improved. Blood sugar 87, medicated perMAR 1030 - report called to HARINDER Wiley, will be transported with EMT * Aguilar Rich MD - 03/21/2021 0205 EST This patient received an evaluation and medical screening exam for emergent medical conditions at the [facility] on 03/21/2021. This note was created and authored by Ziyad iJménez working under the supervision of Soraya Rich MD. This documentation is recorded by Ciro Sutton acting as Scribe under the direction and presence of Aguilar Rich MD and Ziyad Jiménez MD George, Douglas C, MD and Ziyad Jiménez MD: We personally performed the services recorded by the scribe in our presence. We confirm the scribe's documentation has been reviewed by us to accurately and completely record our work, treatment, procedures, and medical decision making. ED Attending's Supervisory Statement I, Aguilar Rich MD, performed a history and exam of this patient and discussed the case with the resident. I have reviewed and edited this note, and the documentation is consistent with my findings, assessment and plan. I fully participated in the medical decision making. Sign-out Note Andria Lopez is a 80 y.o. female who presents to the ED via EMS for a stroke alert. EMS reports that the patient was found down, with slurred speech, right arm deviation, and right sided facial droop. EMS states that the patient was down for 1-2 hours and has an unknown last well time. Care and work-up prior to sign out includes a CTA head and neck that was indeterminate for infarct,EKG, and unremarkable urine and stroke panel. I assumed care of patient from Geoff Alvarez MD and Yolanda Burrows MD with MR head and Neurology recommendations pending. After I assumed care the patient had 0316: Paged Neurology who is unable to take the call as they are in a Lumbar Puncture 0319: Discussed with Neurology, who agreed to admit the patient. 0400: Called patient at this time but call went to voicemail. At this time patient showing me small bruise on her right hip. Patient says I cannot really feel pain and is unsure of anything. Patient had some difficulty in bearing weight after that side prior to this. Nonetheless we will order pelvic x-ray. Pelvic x-ray resulted negative. Patient admitted to neurology at this time. At this time, the patient was hemodynamically stable for admission to Neurology under the care of Dr. Damon Moeller. Final diagnoses: CVA (cerebral vascular accident) ([facility]) ([facility]) * Shantal Tohmas, RN - 03/21/2021 0041 EST Patient BIB EMS with c/f CVA. Transported to CT with this RN. VSS. Patient is noted to have expressive aphasia, intermittently worsening- as well as R sided facial droop and slight weakness of RUE. She is A&Ox4. Comes from home where she lives with her . EKG completed, 2nd IV placed, UA sent, covid sent, MRI form completed. Patient connected to continuous ECG and pulse oximetry monitoring. * Yolanda Burrows MD - 03/20/2021 2326 EST This patient received an evaluation and medical screening exam for emergent medical conditions at the [facility] on 03/20/2021. This note was created and authored by GEOFF ALVAREZ MD working under the supervision of Yolanda Burrows MD. This documentation is recorded by Dulce Maria Cueva acting as Scribe under the direction and presence ofYolanda Burrows MD and GEOFF ALVAREZ MD. Yolanda Burrows MD and GEOFF ALVAREZ MD: We personally performed the services recorded by the scribe in our presence. We confirm the scribe's documentation has been reviewed by us to accurately and completely record our work, treatment, procedures, and medical decision making. ED Attending's Supervisory Statement I, Yolanda Burrows MD, performed a history and exam of this patient and discussed the case withthe resident. I have reviewed and edited this note, and the documentation is consistent with my findings, assessment and plan. I fully participated in the medical decision making. HPI Andria Lopez is a 80 y.o. female with a history significant for hypertension, ABDOULAYE, CHF, prior TBI, depression and anxiety who presents to the ED via EMS as a stroke alert. EMS reports the patient was found on the ground, unable to get up. EMS notes they were told she has had multiple recentfalls. Per EMS, the patient has slurred speech, right arm deviation, and right sided facial droop. EMS states she was unable to identify a pen, however this resolved en route. EMS reports the patient's down time was 1-2 hours and does not have a last known normal. EMS notes the patient lives with her elderly spouse who was unable to give a last known normal. On arrival here patient has expressive aphasia however neuro symptoms of otherwise largely resolved. She denies any infectious symptoms. Denies any pain. History was provided by: patient and medical recoreds Patient's pertinent PMH, FH, SH were reviewed and updated PRN. ROS A 10-point review of systems was performed. The patient answered negative to all questions with theexceptions of those explicitly detailed as positives in the HPI. Pertinent negatives are also explicitly stated. Physical Exam Vital Signs Vitals Reassessment?: Yes Temp: 36.1 ??C (97 ??F) Temp src: Tympanic Pulse: 59 Heart Rate: 72 BPM Cardiac Rhythm: Normal sinus rhythm Resp: 16 SpO2: 97 % Pulse From Oximetry: 61 BPM BP: (!) 145/55 BP MAP: 93 mm Hg BP Device: BP Machine BP Patient Position: Sitting BP Cuff Location: Right arm O2 Device: None (Room air) Nursing notes an vital signs were reviewed. Constitutional: Well appearing, in no acute distress HEENT: Clear conjunctivae Mouth: Moist oral mucosa without apparent lesions Neck: Full ROM Heart: Warm and well perfused Lungs: No increased work of breathing, no respiratory distress Abdomen: Soft NT/ND Skin: No overt rashes or lesions on exposed skin Extremities: Moving spontaneously, warm Neuro: Expressive aphasia otherwise normal, normal bdnckx-uw-tcle, able to identify 3 objects, ableto follow two-step commands, CN grossly intact, normal speech, gait wnl, strength and sensation to light touch wnl in UE/LE b/l Medical Decision Making/ED Course Andria Lopez is a 80 y.o. female who presents to the ED for evaluation for stroke versus TIA. Patient apparently had right sided weakness including facial droop, arm deviation, and altered mental status on arrival of EMS today. She initially had a fast ED score 5 that improved to 4 in transit to the emergency department. On arrival to emergency department patient has a fast ED score 0 andher symptoms have largely resolved. She does still have expressive aphasia however. Otherwise patient denies any symptoms. Reassuring vital signs. No signs of trauma. Denies any infectious symptoms. Patient constellation of symptoms is very concerning for TIA versus stroke. Plan for full stroke work-up including labs, CTA, and MRI. An EKG was obtained and independenly interpreted: Sinus rhythm, left axis deviation, left anterior fascicular block, wandering baseline, possible ST depression in lateral precordial leads, and normal intervals. Laboratory results independently reviewed, significant for: leukocytosis 13, potasium 3.4, troponinnegative, ethanol negative. UA negative. Imaging obtained was reviewed and independently interpreted: CTA Head Neck shows no definite findings of acute infarct. Questionable subtle loss of mckay-white differentiation of the left M2 and M5 [place] stroke MCA regions, consider MRI for further evaluation. No vascular CTA abnormality of the head or neck. Multinodular goiter, largest nodule measuring up to 3 cm, recommend ultrasound for further evaluation. Multilevel degenerative changes as above. The patient was signed out to Dr. Aguilar Rich with MR pending and likely Neurology admission. JOIN ED Anticoagulants: No Older than 80: No Time symptoms started (TLKW): 03/20/21 09:17 Face score: 0 Arm score: 0 Speech output score: 0 Speech comprehension score: 0 Eye deviation score: 0 FAST-ED for NNE Score: 0 Procedures Procedures Clinical Impression Final diagnoses: CVA (cerebral vascular accident) ([facility]) ([facility]) Disposition Condition at departure from the Emergency Department: Stable Disposition decisions were made weighing risks and benefits of hospitalization vs. outpatient treatment, the risk for further decompensation, and the patient's wishes. Signed out (see progress Notes) documented in this encounter Miscellaneous Notes * Plan of Merle - Sean Mckinney RN - 03/24/2021 1238 EST Problem: Safety: Goal: Will remain free from falls Outcome: Completed Goal: Will remain free from infection Outcome: Completed Goal: Ability to remain free from injury will improve Outcome: Completed Problem: Pain: Goal: Pain level will decrease Outcome: Completed Problem: Infection: Goal: Signs and symptoms of infection will decrease Outcome: Completed Problem: Cognitive/ Neuro: Goal: Will regain or maintain usual level of consciousness Outcome: Completed Goal: Mental status will return to base line Outcome: Completed Goal: Ability to maintain clinical measurements within normal limits will improve Outcome: Completed Problem: Cardiac: Goal: Ability to maintain clinical measurements within defined limits will improve Outcome: Completed Goal: Risk of venous thrombosis will decrease Outcome: Completed Problem: Respiratory: Goal: Ability to maintain a clear airway will improve Outcome: Completed Goal: Ability to maintain adequate ventilation will improve Outcome: Completed Problem: Bowel/Gastric: Goal: Gastrointestinal status for postoperative course will improve Outcome: Completed Goal: Occurrences of nausea will decrease Outcome: Completed Goal: Occurrences of diarrhea will decrease Outcome: Completed Goal: Ability to achieve a regular elimination pattern will improve Outcome: Completed Goal: Occurrences of constipation will decrease Outcome: Completed Problem: Nutritional: Goal: Ability to attain and maintain optimal nutritional status will improve Outcome: Completed Goal: Ability to chew and swallow food without choking will improve Outcome: Completed Problem: Urinary Elimination: Goal: Ability to reestablish a normal urinary elimination pattern will improve Outcome: Completed Goal: Ability to recognize the need to void and respond appropriately will improve Outcome: Completed Goal: Will remain free from infection Outcome: Completed Problem: Activity: Goal: Ability to avoid complications of mobility impairment will improve Outcome: Completed Goal: Ability to tolerate increased activity will improve Outcome: Completed Problem: Physical Regulation: Goal: Complications related to the disease process, condition or treatment will be avoided or minimized Outcome: Completed Goal: Diagnostic test results will improve Outcome: Completed Problem: Coping: Goal: Patient's and family's ability to cope will improve Outcome: Completed Goal: Level of anxiety will decrease Outcome: Completed Goal: Ability to develop realistic plans in adapting to changes will improve Outcome: Completed Problem: Role Relationship: Goal: Ability to express an understanding of role expectations in relation to illness will improve Outcome: Completed Goal: Ability to interact with others will improve Outcome: Completed Problem: High Fall Risk: Goal: Patient will Remain Free of Falls due to Med. Side Effects Outcome: Completed Problem: High Fall Risk: Goal: Patient Will Remain Free from Fall-Related Injury Outcome: Completed Problem: High Fall Risk: Goal: Patient will Remain Free of Falls due to Altered Elimination Outcome: Completed Problem: High Fall Risk: Goal: Patient will Remain Free of Falls due to Dizziness/Vertigo Outcome: Completed Problem: High Fall Risk: Goal: Patient will Remain Free of Falls due to Altered Mobility Outcome: Completed Problem: Sensory: Goal: Ability to compensate for vision loss will be supported Outcome: Completed Problem: SKIN INTEGRITY Goal: Skin integrity will improve or be maintained Outcome: Completed Problem: Pressure Ulcer Prevention Goal: Absence Of Pressure Ulcer Outcome: Completed Problem: Risk For Imapaired Skin Integrity Goal: Incontinence Is Managed Outcome: Completed Problem: Impaired Skin Integrity Goal: Signs of wound healing will improve Outcome: Completed Problem: Daily Care Plan Goals Goal: Care Plan Documentation Outcome: Completed Nursing Discharge Note D: Patient noted with discharge orders to: home. A: Prescriptions faxed to pharmacy. Reviewed discharge instructions and prescriptions with Patient and Family IV d/c'd. Belongings collected and sent home with patient. R: Patient and Family verbalized understanding of discharge instructions and denied further questions. Provided stroke education about diagnosis, prevention, and medication management. SEAN MCKINNEY RN 03/24/2021 13:15 * Plan of Care - Lisa Alonzo RN - 03/23/2021 7336 EST Problem: Daily Care Plan Goals Goal: Care Plan Documentation Outcome: Ongoing Flowsheets (Taken 03/23/2021 0942) Area of Focus: Circulatory Status Goal This Shift: stable vs Note: Data: Pt admitted 03/20 with a left CVA. Pt alert, oriented x3. Denied pain. CG assist to commode. Elevated BP this shift. Action: Stroke vitals q4. Scheduled medications as ordered. Provider aware of BP and saw pt at bedside. New orders received. Response: Cozaar and Lasix administered - results pending. Pt asymptomatic except for feeling fatigued. LISA ALONZO RN 03/23/2021 15:42 * Plan of Care - Rosanna Devlin RN - 03/23/2021 0417 EST Data: Assumed care of pt at 2300, pt sleeping comfortably. Pt has no complaints of pain overnight. Action: Pt needs met and environment made conducive to a restful night's sleep. Response: Pt slept through the night with minimal interruptions. Will continue to monitor and adjust interventions as necessary. * Plan of Care - Katheryn Wyman RN - 03/22/2021 1728 EST Problem: Safety: Goal: Will remain free from falls Outcome: Met This Shift Goal: Will remain free from infection Outcome: Met This Shift Goal: Ability to remain free from injury will improve Outcome: Met This Shift Problem: Cognitive/ Neuro: Goal: Will regain or maintain usual level of consciousness Outcome: Met This Shift Goal: Mental status will return to base line Outcome: Ongoing Problem: High Fall Risk: Goal: Patient will Remain Free of Falls due to Altered Mobility Outcome: Met This Shift Problem: Daily Care Plan Goals Goal: Care Plan Documentation 03/22/2021 1728 by Katheryn Wyman RN Flowsheets (Taken 03/22/2021 0800) Area of Focus: Neuro Status Goal This Shift: maintain or improve neuro status 03/22/2021 1726 by Katheryn Wyman RN Outcome: Met This Shift Data: Pt admitted on 03/20 d/t L frontal CVA. Morning exam showed mild/moderate aphasia and dysarthria, mild ataxia on RUE, duller sensation on the right side, and mild right sided weakness. Action: Stroke VS completed q4. Clustered care to promote healing. Response: Pt continues to improve neurologically with now only mild aphasia, dysarthria, ataxia, and weakness on R side. Pt reports feeling stronger and better than even this morning. Plan for possible discharge to rehab tomorrow? WCM. KATHERYN WYMAN RN 03/22/2021 17:28 * Plan of Care - Bre King RN - 03/22/2021 0359 EST Data: Assumed care at 2300, Pt on HD #2 with L frontal CVA, A&Ox3, moderate expressive aphasia and mild dysarthria Action: Q4 stroke neuro VS, and hourly safety checks completed. Medicated pt according to orders, see MAR. Clustered care to promote rest. Response: Stroke/neuro VS remain stable. No reports of pain, sleeping intermittently overnight. Will continue to monitor. BRE KING RN 03/22/2021 3:59 * Plan of Care - Katheryn Wyman RN - 03/21/2021 1813 EST Problem: Safety: Goal: Will remain free from falls Outcome: Met This Shift Problem: Cognitive/ Neuro: Goal: Will regain or maintain usual level of consciousness Outcome: Ongoing Problem: Bowel/Gastric: Goal: Ability to achieve a regular elimination pattern will improve Outcome: Ongoing Problem: Daily Care Plan Goals Goal: Care Plan Documentation Outcome: Met This Shift Flowsheets (Taken 03/21/2021 1700) Area of Focus: Neuro Status Goal This Shift: Neuro VS remains unchanged Data: Assumed care of pt at 1500. Pt admitted this morning for L frontal CVA. Pt A/Ox4, [place], RUE 3/5 strength, with moderate expressive aphasia and mild dysarthria. Per MD orders, permissive HTN allowed. Pt's BP 177/84, on telemetry in NSR. Action: Stroke/neuro VS assessed q4. Gave pt stroke binder and educated on risk factors. SCD's applied for VTE prophylaxis. Response: stroke/neuro VS remained stable. Pt receptive to education and verbalized understanding. WC. KATHERYN WYMAN RN 03/21/2021 18:14 documented in this encounter Plan of Treatment Upcoming Encounters Date Type Department Care Team (Late st Contact Info) Description 05/19/2024 11:00 EST Office Visit [address], [address] [place], [place] [address] Dane Rick MD [address] [place] [address] [address] [place] [address] Scheduled Orders Name Type Priority Associated Diagnoses Orde r Schedule ZIO PATCH Cardiac Services Routine CVA (cerebral vascular accident) ([facility]) (HCC) (HCC-CMS) Expected: 03/23/2021 (Approximate), Expires: 03/23/2023 documented as of this encounter Procedures Procedure Name Priority Date/Time Associated Diagnosis Comments ECG REPORT - SCANNED 04/04/2021 13:16 EST ECG REPORT - SCANNED 03/29/2021 14:40 EST POCT GLUCOSE, INTERFACED Routine 03/24/2021 12:16 EST POCT GLUCOSE, INTERFACED Routine 03/24/2021 9:50 EST POCT GLUCOSE, INTERFACED Routine 03/24/2021 9:07 EST COMPLETE BLOOD COUNT Routine 03/24/2021 6:07 EST ELECTROLYTES Routine 03/24/2021 6:07 EST POCT GLUCOSE, INTERFACED Routine 03/23/2021 21:27 EST POCT GLUCOSE, INTERFACED Routine 03/23/2021 18:38 EST POCT GLUCOSE, INTERFACED Routine 03/23/2021 11:32 EST POCT GLUCOSE, INTERFACED Routine 03/23/2021 8:20 EST COMPLETE BLOOD COUNT Routine 03/23/2021 5:36 EST CREATININE Add-On 03/23/2021 5:36 EST ELECTROLYTES Routine 03/23/2021 5:36 EST POCT GLUCOSE, INTERFACED Routine 03/22/2021 21:33 EST POCT GLUCOSE, INTERFACED Routine 03/22/2021 17:37 EST POCT GLUCOSE, INTERFACED Routine 03/22/2021 12:11 EST POCT GLUCOSE, INTERFACED Routine 03/22/2021 10:35 EST POCT GLUCOSE, INTERFACED Routine 03/22/2021 9:28 EST COMPLETE BLOOD COUNT Routine 03/22/2021 6:52 EST ELECTROLYTES Routine 03/22/2021 6:52 EST POCT GLUCOSE, INTERFACED Routine 03/21/2021 21:45 EST POCT GLUCOSE, INTERFACED Routine 03/21/2021 17:52 EST POCT GLUCOSE, INTERFACED Routine 03/21/2021 12:38 EST POCT GLUCOSE, INTERFACED Routine 03/21/2021 10:07 EST TRANSTHORACIC ECHO (TTE) COMPLETE Routine 03/21/2021 9:11 EST XR PELVIS 1-2 VIEWS STAT 03/21/2021 5 :14 EST MR HEAD WO CONTRAST STAT 03/21/2021 3 :16 EST URINE CHEMICAL (DIP) & SEDIMENT (MICRO) WITH REFLEX TO CULTURE STAT 03/21/2021 0:26 EST ZZCOVID-19 TEST [facility] PCR Today 03/21/2021 0:02 EST COVID-19 TESTING Routine 03/21/2021 0:02 EST EKG 12-LEAD STAT 03/20/2021 23:[address] ANGIO HEAD NECK STAT 03/20/2021 23 :48 EST HOLD BLUE TOP STAT 03/20/2021 23:36 EST SCREENING GLUCOSE STAT 03/20/2021 23: 36 EST PROFILE ED STROKE PANEL STAT 03/20/2021 23:36 EST TROPONIN I STAT 03/20/2021 23:36 EST PTT STAT 03/20/2021 23:36 EST PROTIME STAT 03/20/2021 23:36 EST COMPLETE BLOOD COUNT AND DIFFERENTIAL STAT 03/20/2021 23:36 EST BUN STAT 03/20/2021 23:36 EST HEMOGLOBIN A1C Add-On 03/20/2021 23:36 EST CREATININE STAT 03/20/2021 23:36 EST ETHANOL, BLOOD STAT Add-on 03/20/2021 23:36 EST LIPID PROFILE (INCLUDES CHOLESTEROL, TRIGLYCERIDES, HDL, LDL) Add-On 03/20/2021 23:36 EST ELECTROLYTES STAT 03/20/2021 23:36 EST POCT GLUCOSE, INTERFACED Routine 03/20/2021 23:31 EST POCT GLUCOSE, INTERFACED Routine 03/20/2021 23:29 EST documented in this encounter Results * ECG REPORT - SCANNED (04/04/2021 13:16 EST) 04/04/2021 13:1 6 EST Scan 2 Rug Dyer PROCEDURE/MINOR PRINCESS GICAL ORDERABLES * ECG REPORT - SCANNED (03/29/2021 14:40 EST) 03/29/2021 14:4 0 EST Scan 2 Rug Dyer PROCEDURE/MINOR PRINCESS GICAL ORDERABLES * POCT GLUCOSE, INTERFACED (03/24/2021 12:16 EST) Glucose, POC 87 70 - 100 mg/dL 03/24/2021 12:21 EST [facility] HN LAB POC COMMENT (GLUCOSE) Test Performed by Nursing Services 03/24/2021 12:21 EST [facility] Blood CAPILLARY BLOOD / Unknown 03/24/2021 12:16 EST 03/24/2021 12:21 EST Mariama Davis MD POINT OF CARE TEST O RDERABLES [facility] [address] [place] [address] * POCT GLUCOSE, INTERFACED (03/24/2021 9:50 EST) Glucose, POC 98 70 - 100 mg/dL 03/24/2021 9:51 EST [facility] HN LAB POC COMMENT (GLUCOSE) Test Performed by Nursing Services 03/24/2021 9:51 EST [facility] Blood CAPILLARY BLOOD / Unknown 03/24/2021 9:50 EST 03/24/2021 9:51 EST Miranda Montoya MD POINT OF CARE TEST ORDERABLES Performing Organization Address City/[facility]/ZIP Co de Phone Number [facility] [address] [place] [address] * (ABNORMAL) POCT GLUCOSE, INTERFACED (03/24/2021 9:07 EST) Glucose, POC 110(H) 70 - 100 mg/dL 03/24/2021 9:12 EST [facility] HN LAB POC COMMENT (GLUCOSE) Test Performed by Nursing Services 03/24/2021 9:12 EST [facility] Blood CAPILLARY BLOOD / Unknown 03/24/2021 9:07 EST 03/24/2021 9:12 EST Mariama Davis MD POINT OF CARE TEST O RDERABLES Performing Organization Address [facility] Co de Phone Number [facility] [address] [place] [address] * (ABNORMAL) ELECTROLYTES (03/24/2021 6:07 EST) Sodium 137 136 - 145 mmol/L 03/24/2021 7:24 [facility] Potassium 4.2 3.5 - 5.0 mmol/L 03/24/2021 7:24 [facility] Chloride 105 96 - 110 mmol/L 03/24/2021 7:24 [facility] CO2 Total 27 22 - 32 mmol/L 03/24/2021 7:24 [facility] Anion Gap 5(L) 8 - 16 03/24/2021 7:24 [facility] Blood VENOUS BLOOD / Unknown Venipuncture / Unknown 03/24/2021 6:07 EST 03/24/2021 6:53 EST Mariama Davis MD CHEMISTRY & BLOOD GA S ORDERABLES Performing Organization Address City/[facility]/ZIP Co de Phone Number [facility] [address] [place] [address] * COMPLETE BLOOD COUNT (03/24/2021 6:07 EST) WBC 11.71 4.00 - 12.40 K/cmm 03/24/2021 6:49 [facility] RBC 4.01 3.86 - 5.04 M/cmm 03/24/2021 6:49 [facility] Hemoglobin 11.6 11.6 - 15.2 gm/dL 03/24/2021 6:49 [facility] HCT 35.9 34.9 - 44.4 % 03/24/2021 6:49 [facility] MCV 90 81 - 98 fl 03/24/2021 6:49 [facility] MCH 28.9 26.7 - 33.3 pg 03/24/2021 6:49 [facility] MCHC 32.3 32.1 - 35.9 gm/dL 03/24/2021 6:49 [facility] RDW-CV 13.4 <14.7 % 03/24/2021 6:49 [facility] RDW-SD 44.1 <50.4 fl 03/24/2021 6:49 [facility] PLT 274 141 - 377 K/cmm 03/24/2021 6:49 [facility] MPV 9.8 9.5 - 12.7 fl 03/24/2021 6:49 [facility] Blood VENOUS BLOOD / Unknown Venipuncture / Unknown 03/24/2021 6:07 EST 03/24/2021 6:42 EST Mariama Davis MD HEMATOLOGY & PF4 ORD ERABLES [facility] [address] [place] [address] * POCT GLUCOSE, INTERFACED (03/23/2021 21:27 EST) Glucose, POC 96 70 - 100 mg/dL 03/23/2021 21:32 [facility] HN LAB POC COMMENT (GLUCOSE) Test Performed by Nursing Services 03/23/2021 21:32 EST [facility] Blood CAPILLARY BLOOD / Unknown 03/23/2021 21:27 EST 03/23/2021 21:32 EST Mariama Davis MD POINT OF CARE TEST O RDERABLES Performing Organization Address City/[facility]/ZIP Co de Phone Number [facility] [address] [place] [address] * (ABNORMAL) POCT GLUCOSE, INTERFACED (03/23/2021 18:38 EST) Glucose, POC 127(H) 70 - 100 mg/dL 03/23/2021 18:39 EST [facility] HN LAB POC COMMENT (GLUCOSE) Test Performed by Nursing Services 03/23/2021 18:39 EST [facility] Blood CAPILLARY BLOOD / Unknown 03/23/2021 18:38 EST 03/23/2021 18:39 EST Mariama Davis MD POINT OF CARE TEST O RDERABLES Performing Organization Address City/[facility]/ZIP Co de Phone Number [facility] [address] [place] [address] * POCT GLUCOSE, INTERFACED (03/23/2021 11:32 EST) Glucose, POC 78 70 - 100 mg/dL 03/23/2021 11:37 EST [facility] HN LAB POC COMMENT (GLUCOSE) Test Performed by Nursing Services 03/23/2021 11:37 EST [facility] Blood CAPILLARY BLOOD / Unknown 03/23/2021 11:32 EST 03/23/2021 11:37 EST Mariama Davis MD POINT OF CARE TEST O RDERABLES [facility] [address] [place] [address] * POCT GLUCOSE, INTERFACED (03/23/2021 8:20 EST) Glucose, POC 85 70 - 100 mg/dL 03/23/2021 8:25 [facility] HN LAB POC COMMENT (GLUCOSE) Test Performed by Nursing Services 03/23/2021 8:25 [facility] Blood CAPILLARY BLOOD / Unknown 03/23/2021 8:20 EST 03/23/2021 8:25 EST Mariama Davis MD POINT OF CARE TEST O RDERABLES Performing Organization Address [facility] Co de Phone Number [facility] [address] [place] [address] * CREATININE (03/23/2021 5:36 EST) Creatinine 0.79 0.52 - 1.04 mg/dL 03/23/2021 12:30 [facility] eGFR 71 >60 mL/min/1.73 m2 03/23/2021 12:30 [facility] Blood VENOUS BLOOD / Unknown Venipuncture / Unknown 03/23/2021 5:36 EST 03/23/2021 6:30 EST Janell Jj NP CHEMISTRY & BLOOD GA S ORDERABLES Performing Organization Address [facility] Co de Phone Number [facility] [address] [place] [address] * (ABNORMAL) ELECTROLYTES (03/23/2021 5:36 EST) Sodium 138 136 - 145 mmol/L 03/23/2021 6:58 [facility] Potassium 4.1 3.5 - 5.0 mmol/L 03/23/2021 6:58 [facility] Chloride 108 96 - 110 mmol/L 03/23/2021 6:58 [facility] CO2 Total 28 22 - 32 mmol/L 03/23/2021 6:58 [facility] Anion Gap 2(L) 8 - 16 03/23/2021 6:58 [facility] Blood VENOUS BLOOD / Unknown Venipuncture / Unknown 03/23/2021 5:36 EST 03/23/2021 6:30 EST Mariama Davis MD CHEMISTRY & BLOOD GA S ORDERABLES [facility] [address] [place] [address] * (ABNORMAL) COMPLETE BLOOD COUNT (03/23/2021 5:36 EST) WBC 10.45 4.00 - 12.40 K/cmm 03/23/2021 6:50 [facility] RBC 3.76(L) 3.86 - 5.04 M/cmm 03/23/2021 6:50 [facility] Hemoglobin 11.2(L) 11.6 - 15.2 gm/dL 03/23/2021 6:50 [facility] HCT 32.6(L) 34.9 - 44.4 % 03/23/2021 6:50 [facility] MCV 87 81 - 98 fl 03/23/2021 6:50 [facility] MCH 29.8 26.7 - 33.3 pg 03/23/2021 6:50 [facility] MCHC 34.4 32.1 - 35.9 gm/dL 03/23/2021 6:50 [facility] RDW-CV 13.7 <14.7 % 03/23/2021 6:50 [facility] RDW-SD 43.7 <50.4 fl 03/23/2021 6:50 [facility] PLT 255 141 - 377 K/cmm 03/23/2021 6:50 [facility] MPV 10.0 9.5 - 12.7 fl 03/23/2021 6:50 [facility] Blood VENOUS BLOOD / Unknown Venipuncture / Unknown 03/23/2021 5:36 EST 03/23/2021 6:28 EST Mariama Davis MD HEMATOLOGY & PF4 ORD ERABLES [facility] [address] [place] [address] * POCT GLUCOSE, INTERFACED (03/22/2021 21:33 EST) Glucose, POC 99 70 - 100 mg/dL 03/22/2021 21:51 EST [facility] HN LAB POC COMMENT (GLUCOSE) Test Performed by Nursing Services 03/22/2021 21:51 EST [facility] Blood CAPILLARY BLOOD / Unknown 03/22/2021 21:33 EST 03/22/2021 21:51 EST Mariama Davis MD POINT OF CARE TEST O RDERABLES Performing Organization Address City/[facility]/ZIP Co de Phone Number [facility] [address] [place] [address] * (ABNORMAL) POCT GLUCOSE, INTERFACED (03/22/2021 17:37 EST) Glucose, POC 103(H) 70 - 100 mg/dL 03/22/2021 17:41 EST [facility] HN LAB POC COMMENT (GLUCOSE) Test Performed by Nursing Services 03/22/2021 17:41 EST [facility] Blood CAPILLARY BLOOD / Unknown 03/22/2021 17:37 EST 03/22/2021 17:41 EST Mariama Davis MD POINT OF CARE TEST O RDERABLES [facility] [address] [place] [address] * (ABNORMAL) POCT GLUCOSE, INTERFACED (03/22/2021 12:11 EST) Glucose, POC 105(H) 70 - 100 mg/dL 03/22/2021 12:12 EST [facility] HN LAB POC COMMENT (GLUCOSE) Test Performed by Nursing Services 03/22/2021 12:12 EST [facility] Blood CAPILLARY BLOOD / Unknown 03/22/2021 12:11 EST 03/22/2021 12:12 EST Mariama Davis MD POINT OF CARE TEST O RDERABLES Performing Organization Address [facility] Co de Phone Number [facility] [address] [place] [address] * (ABNORMAL) POCT GLUCOSE, INTERFACED (03/22/2021 10:35 EST) Glucose, POC 105(H) 70 - 100 mg/dL 03/22/2021 12:52 EST [facility] HN LAB POC COMMENT (GLUCOSE) Test Performed by Nursing Services 03/22/2021 12:52 EST [facility] Blood CAPILLARY BLOOD / Unknown 03/22/2021 10:35 EST 03/22/2021 12:52 EST Provider Unknown POINT OF CARE TEST O DORIAN Performing Organization Address [facility] Co de Phone Number [facility] [address] [place] [address] * (ABNORMAL) POCT GLUCOSE, INTERFACED (03/22/2021 9:28 EST) Glucose, POC 127(H) 70 - 100 mg/dL 03/22/2021 9:31 EST [facility] HN LAB POC COMMENT (GLUCOSE) Test Performed by Nursing Services 03/22/2021 9:31 EST [facility] Blood CAPILLARY BLOOD / Unknown 03/22/2021 9:28 EST 03/22/2021 9:31 EST Mariama Davis MD POINT OF CARE TEST O RDERALEONEL Performing Organization Address City/[facility]/ZIP Co de Phone Number [facility] [address] [place] [address] * (ABNORMAL) ELECTROLYTES (03/22/2021 6:52 EST) Sodium 140 136 - 145 mmol/L 03/22/2021 8:11 EST [facility] Potassium 3.7 3.5 - 5.0 mmol/L 03/22/2021 8:11 EST [facility] Chloride 110 96 - 110 mmol/L 03/22/2021 8:11 [facility] CO2 Total 25 22 - 32 mmol/L 03/22/2021 8:11 [facility] Anion Gap 5(L) 8 - 16 03/22/2021 8:11 [facility] Blood VENOUS BLOOD / Unknown Venipuncture / Unknown 03/22/2021 6:52 EST 03/22/2021 7:36 EST Mariama Davis MD CHEMISTRY & BLOOD GA S ORDERABLES [facility] [address] [place] [address] * (ABNORMAL) COMPLETE BLOOD COUNT (03/22/2021 6:52 EST) WBC 9.22 4.00 - 12.40 K/cmm 03/22/2021 7:49 [facility] RBC 3.88 3.86 - 5.04 M/cmm 03/22/2021 7:49 [facility] Hemoglobin 11.6 11.6 - 15.2 gm/dL 03/22/2021 7:49 [facility] HCT 34.0(L) 34.9 - 44.4 % 03/22/2021 7:49 [facility] MCV 88 81 - 98 fl 03/22/2021 7:49 [facility] MCH 29.9 26.7 - 33.3 pg 03/22/2021 7:49 [facility] MCHC 34.1 32.1 - 35.9 gm/dL 03/22/2021 7:49 [facility] RDW-CV 13.6 <14.7 % 03/22/2021 7:49 [facility] RDW-SD 43.8 <50.4 fl 03/22/2021 7:49 [facility] PLT 285 141 - 377 K/cmm 03/22/2021 7:49 [facility] MPV 10.0 9.5 - 12.7 fl 03/22/2021 7:49 [facility] Blood VENOUS BLOOD / Unknown Venipuncture / Unknown 03/22/2021 6:52 EST 03/22/2021 7:39 EST Mariama Davis MD HEMATOLOGY & PF4 ORD ERABLES [facility] [address] [place] [address] * (ABNORMAL) POCT GLUCOSE, INTERFACED (03/21/2021 21:45 EST) Glucose, POC 107(H) 70 - 100 mg/dL 03/21/2021 21:52 EST [facility] HN LAB POC COMMENT (GLUCOSE) Test Performed by Nursing Services 03/21/2021 21:52 EST [facility] Blood CAPILLARY BLOOD / Unknown 03/21/2021 21:45 EST 03/21/2021 21:52 EST Mariama Davis MD POINT OF CARE TEST O RDSANDHYA [facility] [address] [place] [address] * POCT GLUCOSE, INTERFACED (03/21/2021 17:52 EST) Glucose, POC 96 70 - 100 mg/dL 03/21/2021 17:57 EST [facility] HN LAB POC COMMENT (GLUCOSE) Test Performed by Nursing Services 03/21/2021 17:57 EST [facility] Blood CAPILLARY BLOOD / Unknown 03/21/2021 17:52 EST 03/21/2021 17:57 EST Mariama Davis MD POINT OF CARE TEST O RDERABLES [facility] [address] [place] [address] * POCT GLUCOSE, INTERFACED (03/21/2021 12:38 EST) Glucose, POC 89 70 - 100 mg/dL 03/21/2021 12:42 EST [facility] HN LAB POC COMMENT (GLUCOSE) Test Performed by Nursing Services 03/21/2021 12:42 EST [facility] Blood CAPILLARY BLOOD / Unknown 03/21/2021 12:38 EST 03/21/2021 12:42 EST Damon Moeller MD POINT OF CA RE TEST ORDERABLES Performing Organization Address [facility]/ZIP Co de Phone Number [facility] [address] [place] [address] * POCT GLUCOSE, INTERFACED (03/21/2021 10:07 EST) Pathologist [facility] Glucose, POC 87 70 - 100 mg/dL 03/21/2021 10:08 EST [facility] HN LAB POC COMMENT (GLUCOSE) Test Performed by Nursing Services 03/21/2021 10:08 EST [facility] Blood CAPILLARY BLOOD / Unknown 03/21/2021 10:07 EST 03/21/2021 10:08 EST Mariama Davis MD POINT OF CARE TEST O RDERABLES Performing Organization Address City/[facility] Co de Phone Number [facility] [address] [place] [address] * TRANSTHORACIC ECHO (TTE) COMPLETE W/DOPPLER W/CF NO CONTRAST (03/21/2021 9:11 EST) LA Atrial Length A2C 4.9 cm [facility]INT [facility] LA Atrial Area A4C 20.1 cm2 [facility] LA ID/bsa, A-P 1.7 cm/m2 [facility] LV ID, ED, PLAX 4.8 3.5 - 6.0 cm [facility] POINT OF CARE LVIDD BY MMODE 4.8 cm [facility] LV ID, ES, PLAX 3.2 2.1 - 4.0 cm [facility] POINT [facility] CARE LA ID, A-P, ES 3.4 cm [facility] LV PW thickness, ED, PLAX 0.6 0.6 - 1.1 cm [facility] Aortic root ID 2.4 cm [facility] Aortic valve mean velocity, S 1.9 m/s [facility] POINT [facility] C[facility] LV ejection fraction, 1-p A4C 68 % [facility] POIN T [facility] C[facility] LVOT mean gradient, S 4 mmHg [facility]INT [facility] Aortic valve area, peak velocity 1.4 cm2 [facility] Aortic mean gradient, S 16 mmHg [facility] AV LVOT peak gradient 7 mmHg [facility]INT [facility] LV e', lateral 0.08 m/s [facility] POINT [facility] LV IVRT, DP 74 msec [facility] PO INT OF CARE LVOT area 3.1 cm2 [facility] POIN T OF CARE LVOT peak velocity, S 1.3 m/s [facility] POINT OF CARE LVOT VTI, S 33.5 cm [facility] PO INT OF CARE Aortic valve peak velocity, S 2.7 m/s [facility] POINT OF CARE Aortic valve VTI, S 66.3 cm [facility] POINT [facility] CARE Stroke volume (SV), LVOT DP 105 ml [facility]INT [facility] C[facility] Aortic peak gradient, S 32 mmHg [facility] Mitral peak gradient, D 5 mmHg [facility] POINT [facility] C[facility] LVOT mean velocity, S 0.9 m/s [facility] POINT [facility] C[facility] Mitral E-wave peak velocity 1.1 m/s [facility] LV Systolic Volume 42 mL [facility] LV Diastolic Volume 108 mL [facility] POINT [facility] C[facility] AV DOI 0.49 [facility] POIN T OF CARE LA Atrial Length A4C 6.6 cm [facility] POINT OF CARE LVOT ID, S 2.0 cm [facility] POI NT OF CARE LA volume/bsa, ES, A4C 19.0 ml/m2 [facility] POINT OF CARE LA volumes, ES, A4C 38.0 ml [facility] POINT [facility] CARE Stroke index (SV/bsa) LVOT DP 52.0 ml/m2 [facility] POINT [facility] CARE Aortic valve area VTI 1.6 cm2 [facility]INT [facility] Interventricular Septum to Posterior Wall Thickness Ratio 1.3 [facility] P OINT OF CARE IVS thickness, ED, PLAX 0.7 cm [facility] POINT OF CARE LV e', medial 0.07 m/s [facility]INT [facility] AV dimensionless index (DI) 0.8 [facility] POINT OF CARE LV e', average 0.08 m/s [facility] Velocity ratio, mean, LVOT/AV 0.48 [facility] POINT [facility] C[facility] Aortic valve area 1.5 cm2 [facility] POINT OF CARE AVAI Pk Michael 0.7 cm2/m2 [facility] PO INT OF CARE Pulmonic valve mean velocity, S 1 cm/s [facility] POINT OF CARE Ascending aorta ID, a-p 2.9 cm [facility] POINT OF CARE LA Atrial Area A2C 20.1 cm2 [facility] POINT [facility] CARE LA/aortic root ratio 1.42 [facility] POINT OF CARE LV E/e', lateral 14.0 [facility]INT [facility] LV E/e', medial 0.1 [facility] POINT OF CARE LV E/e', average 7 [facility] POINT OF C[facility] LV end-diastolic volume, 1-p A4C 72 ml [facility] POINT OF CARE Anatomical Region Laterality Modality Ultrasound Narrative 03/21/2021 9:52 EST ?Left??Ventricle: The left ventricular cavity was normal in size. Left ventricular systolic function was normal with an ejection fraction of 60-65%. Left ventricular wall thickness was normal. Left ventricular wall motion was normal; there were no regional wall motion abnormalities. ?Right??Ventricle: The right ventricular cavity was normal in size. Right ventricular systolic function was normal. ?Aortic??Valve: The aortic valve structure was probably trileaflet. The aortic leaflets were mildly thickened. There was mild aortic valve stenosis. ?Mitral??Valve: There was mild annular calcification. Left Ventricle The left ventricular cavity was normal in size. Left ventricular systolic function was normal with an ejection fraction of 60-65%. Left ventricular wall thickness was normal. Left ventricular wall motion was normal; there were no regional wall motion abnormalities. Right Ventricle The right ventricular cavity was normal in size. Right ventricular systolic function was normal. Right ventricular wall thickness was normal. Left Atrium The left atrium was normal in size. Right Atrium The right atrium was normal in size. IVC/SVC The inferior vena cava was normal in size. Mitral Valve Mitral valve structure was normal. There was mild annular calcification. There was no significant mitral valve stenosis or regurgitation. Tricuspid Valve Tricuspid valve structure was normal. There was mild tricuspid valve regurgitation. There was no tricuspid valve stenosis. Aortic Valve The aortic valve structure was probably trileaflet. The aortic leaflets were mildly thickened. There was mild aortic valve stenosis. There was mild aortic valve regurgitation. AV Peak Gradient: 32mmHg. AV Mean Gradient: 16mmHg. AV Area VTI: 1.6. Pulmonic Valve There was no pulmonic valve regurgitation. There was no pulmonic valve stenosis. Ascending Aorta The aorta was normal in size. Pericardium There was no pericardial effusion. Pulmonic Artery Pulmonary systolic pressure was at the upper limits of normal, in the range of 25 mmHg to 30 mmHg + right atrial pressure. Study Details Study status: Routine. Transthoracic echocardiography. M-Mode, complete 2D, complete spectral Doppler, and color Doppler.The study was interpreted by [facility]. Pertinent images and digital data are archived for permanent storage and are available for subsequent review. Scanning was performed from the apical, parasternal, subcostal and suprasternal acoustic windows. Overall the study quality was adequate. Images were obtained using cardiac ultrasound machine EPIQ #[id number]. Mariama Davis MD CARDIAC ECHO ORDERAB LES * XR PELVIS 1-2 VIEWS (03/21/2021 5:14 EST) Anatomical Region Laterality Modality Body, Pelvis Computed Radiogr aphy 03/21/2021 9:51 EST Impressions 03/21/2021 9:51 EST Findings/impression: No visible fracture or dislocation. 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 Moderate degenerative changes of the included spine, SI joints, and pubic symphysis. Calcific tendinopathy is seen at the iliac spines. Nonobstructive bowel gas pattern. Contrast is within the bladder from prior CTA. There is a cystocele. No acute abnormality identified in the right hip. This exam was not tailored for adequate assessment of the hips however. Dedicated radiographs of the right hip should be obtained if patient symptoms in the right hip persist. I have personally reviewed the images and the above interpretation and agree with the findings. Narrative 03/21/2021 9:51 EST XR PELVIS 1-2 VIEWS 03/21/2021 4:05 AM Clinical History/Comments: RIghthip pain Comparison: None. Technique: AP view of the pelvis. ?? Procedure Note Rogers Shearer MD - 03/21/2021 XR PELVIS 1-2 VIEWS 03/21/2021 4:05 AM Clinical History/Comments: RIghthip pain Comparison: None. Technique: AP view of the pelvis. IMPRESSION Findings/impression: No visible fracture or dislocation. Moderate to severe degenerativechanges of the hips. Moderate degenerative changes of the included spine,SI joints, and pubic symphysis. Calcific tendinopathy is seen at the iliacspines. Nonobstructive bowel gas pattern. Contrast is within the bladderfrom prior CTA. There is a cystocele. No acute abnormality identified in the right hip. This exam was nottailored for adequate assessment of the hips however. Dedicatedradiographs of the right hip should be obtained if patient symptoms in theright hip persist. I have personally reviewed the images and the above interpretation andagree with the findings. 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 No parenchymal hemorrhage. Findings were communicated by Dr. Stephon Jones by phone to Hilario Sheikh at the time of this dictation on 03/21/2021 3:51 AM. I have personally reviewed the images and the above interpretation and agree with the findings. Narrative 03/21/2021 6:34 EST EXAM: MRI HEAD WO CONTRAST HISTORY: TIA, initial exam TECHNIQUE: MRI head without contrast. Structured report code: [id number] COMPARISON: CT angiogram head and neck 3 hours prior FINDINGS: PARENCHYMA: T2/FLAIR hyperintensity and diffusion restriction in the lateral left frontal lobe including a small cortical ribbon in the left precentral gyrus consistent with acute infarction. Faintly restricted diffusion without increase in FLAIR signal along the left cortical spinal tract relative to the right is favored to be secondary to acute wallerian degeneration. No parenchymal hemorrhage. Scattered supraventricular T2/FLAIR hyperintensities, nonspecific but likely sequela of chronic microangiopathic change. No mass or midline shift. EXTRA-AXIAL SPACES: No extra-axial collection. No extra-axial mass. VENTRICLES: No hydrocephalus. VESSELS: The flow voids are normal. BONES: Unremarkable. ORBITS: No significant abnormality. PARANASAL SINUSES/MASTOID AIR CELLS: Predominantly clear. EXTRACRANIAL SOFT TISSUES: Unremarkable. Procedure Note Ivan Brooks MD - 03/21/2021 EXAM: MRI HEAD WO CONTRAST HISTORY: TIA, initial exam TECHNIQUE: MRI head without contrast. Structured report code: [id number] COMPARISON: CT angiogram head and neck 3 hours prior FINDINGS: PARENCHYMA: T2/FLAIR hyperintensity and diffusion restriction in the lateral leftfrontal lobe including a small cortical ribbon in the left precentralgyrus consistent with acute infarction. Faintly restricted diffusionwithout increase in FLAIR signal along the left cortical spinal tractrelative to the right is favored to be secondary to acute walleriandegeneration. No parenchymal hemorrhage. Scattered supraventricularT2/FLAIR hyperintensities, nonspecific but likely sequela of chronicmicroangiopathic change. No mass or midline shift. EXTRA-AXIAL SPACES: No extra-axial collection. No extra-axial mass. VENTRICLES: No hydrocephalus. VESSELS: The flow voids are normal. BONES: Unremarkable. ORBITS: No significant abnormality. PARANASAL SINUSES/MASTOID AIR CELLS: Predominantly clear. EXTRACRANIAL SOFT TISSUES: Unremarkable. IMPRESSION Acute infarction in the left frontal lobe including a small corticalribbon of the left precentral gyrus. No parenchymal hemorrhage. Findings were communicated by Dr. Stephon Jones by phone to Hilario De La Paz the time of this dictation on 03/21/2021 3:51 AM. I have personally reviewed the images and the above interpretation andagree with the findings. Geoff Alvarez MD [facility] MRI ORDERABLE S * URINE CHEMICAL (DIP) & SEDIMENT (MICRO) WITH REFLEX TO CULTURE (03/21/2021 0:26 EST) Color UA Colorless Colorless, Yellow 03/21/2021 1:06 EST [facility] Clarity UA Clear Clear 03/21/2021 1:06 EST [facility] Glucose UA Negative Negative 03/21/2021 1:06 [facility] Bilirubin UA Negative Negative 03/21/2021 1:06 [facility] Ketones UA Negative Negative 03/21/2021 1:06 [facility] Specific Fred, Urine 1.017 1.001 - 1.035 03/21/2021 1:06 [facility] Blood UA Negative Negative 03/21/2021 1:06 [facility] Urobilinogen UA Normal Normal mg/dL 021 1:06 [facility] Nitrite UA Negative Negative 03/21/2021 1:06 [facility] Leukocyte Esterase UA Negative Negative 03/21/2021 1:06 [facility] Protein UA Negative Negative 03/21/2021 1:06 [facility] pH, UA 6.5 4.6 - 8.0 03/21/2021 1:06 [facility] Urine RBC Count, Auto 0 - 2 0 - 2 Cells/HPF 03/21/2021 1:06 [facility] Urine WBC Count, Auto 0 - 3 0 - 3 Cells/HPF 03/21/2021 1:06 [facility] Urine Squamous Count, Auto None Seen None Seen Cells/HPF 03/21/2021 1:06 [facility] Urine Hyaline Cast Count, Auto <=10 <=10 Casts/LPF 03/21/2021 1:06 [facility] Urine Bacteria Count, Auto None Seen None Seen Bacteria/HPF 03/21/2021 1:06 [facility] Urine URINE SPECIMEN COLLECTION, CLEAN CATCH / Unknown Urine Collect / Unknown 03/21/2021 0:26 EST 03/21/2021 0:40 [facility] - 03/21/2021 1:06 [facility] NOTE: Reflex to Urine Culture test is not indicated based on Urine Sediment Analysis results. Urine Sediment Analysis results are unreliable on urines that are unrefrigerated for >2 hrs or refrigerated >8 hrs. Geoff Alvarez MD URINALYSIS ORDERA BLES Performing Organization Address [facility] de Phone Number [facility] [address] [place] [address] * COVID-19 TEST [facility] PCR (03/21/2021 0:02 EST) Swab ENTIRE NASOPHARYNX / Unknown Swab / Unknown 03/21/2021 0:02 EST 03/21/2021 0:40 EST Geoff Alvarez MD MICROBIOLOGY - GE NERAL ORDERABLES Performing Organization Address [facility] de Phone Number [facility] [address] [place] [address] * COVID-19 TESTING (03/21/2021 0:02 EST) COVID-19 rt-PCR Result Negative Negative 03/21/2021 1:59 EST [facility] Comment: This test has not been FDA cleared or approved. This test has been authorized by FDA under an EUA for use by authorized laboratories. This test has been authorized only for detection of nucleic acid from 2019-nCoV, not for any other viruses or pathogens. This test is only authorized for the duration of the declaration that circumstances exist justifying the authorization of emergency use of in vitro diagnostic tests for detection and/or diagnosis of 2019-nCoV under section 564(b)(1) of Act, 21 U.S.C ?? 360bbb-3(b) (1), unless the authorization is terminated or revoked sooner. Negative results do not preclude 2019-nCoV infection and should not be used as the sole basis for treatment or other patient management decisions. Negative results must be combined with clinical observations, patient history, and epidemiological information. Performed on the [facility] GeneXpert Instrument Performing Lab GeneXpert [facility] 03/21/2021 1:59 EST [facility] Swab ENTIRE NASOPHARYNX / Unknown Swab / Unknown 03/21/2021 0:02 EST 03/21/2021 0:40 EST Geoff Alvarez MD MICROBIOLOGY - GE NERAL ORDERABLES Performing Organization Address [facility] Co de Phone Number [facility] [address] [place] [id number] * EKG 12-LEAD (03/20/2021 23:51 EST) 03/20/2021 23:5 1 EST Narrative [facility] EKG - 04/04/2021 13:13 EST ?[facility] ? Test Date: ?2021-03-20 Pat Name: ? ANDRIA LOPEZ ? Department: ?? ED ? Room: ? AC01 Gender: ? Female ? 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 Requested By: MIKE Fountain Order Number: [id number] ? Reading MD: ?? TRACE PIEDRA MD ? Measurements Intervals ?Lamont ? Rate: ? 82 ? P: ? NC: ? 0 ?QRS: ?-34 QRSD: ? 76 ? T: ?20 QT: ? 303 ? QTc: ?354 ? Interpretive Statements Technically poor tracing - limits interpretation SUPRAVENTRICULAR RHYTHM NONSPECIFIC ST & T-WAVE ABNORMALITY Compared to ECG 07/11/2015 08:12:08 Supraventricular rhythm now present T-wave abnormality now present Sinus bradycardia no longer present I reviewed the tracing and have either agreed or edited the findings in this report. Electronically Signed On 04-04-2021 13:13:03 EST by NEVAEH PIEDRA MD. 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 Electronically Signed On 04-04-2021 13:13:03 EST by NEVAEH MATAMOROS. Yolanda Burrows MD CARDIAC ECG ORDERAB LES [facility] EKG * CT ANGIO HEAD NECK (03/20/2021 23:48 EST) Anatomical Region Laterality Modality Head and Neck Computed Tomogra phy 03/21/2021 10:3 2 EST Impressions 03/21/2021 10:32 EST Subtle region of hypodensity in the left frontal lobe concerning for infarction; further evaluation with MRI recommended. No acute hemorrhage, mass lesion, or midline shift. 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 No additional high grade stenosis or occlusion of the major arterial vasculature of the head and neck. Multiple thyroid nodules, the least measuring up to 3 cm in diameter. Complete evaluation by thyroid ultrasound recommended on a non-urgent outpatient basis. 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 STENOSIS REFERENCE: MILD: < 50% MODERATE: 50-69% SEVERE: 70-89% HAIRLINE/CRITICAL: 90-99% OCCLUDED: 100% There is a difference between this interpretation and that provided by the preliminary resident report which requires non-urgent notification. The finding of a right ICA aneurysm was discussed with Maryana Capellan on 03/21/2021 at approximately 10:30 AM. I have personally reviewed the images and the above interpretation and agree with the findings. Narrative 03/21/2021 10:32 EST EXAMS: CT HEAD WO CONTRAST CT ANGIOGRAM HEAD AND NECK WITH CONTRAST HISTORY: Concern for acute CVA; Stroke/TIA, determine embolic source TECHNIQUE: CT of the head without contrast. CT angiogram of the head and neck with intravenous contrast. Maximal intensity projected reformatted images were obtained, adjusted on an independent workstation, and reviewed prior to interpretation. Structured report code: NR.CT33 COMPARISON: None. FINDINGS: CT HEAD: PARENCHYMA: Subtle region of hypodensity noted in the left frontal lobe concerning for an evolving infarction. No acute parenchymal hemorrhage. No mass or midline shift. Mild diffuse parenchymal volume loss. EXTRA-AXIAL SPACES: No acute extra-axial hemorrhage. No extra-axial collection. No extra-axial mass. VENTRICULAR SYSTEM: No acute intraventricular hemorrhage. No obstructive hydrocephalus. BONES: No concerning lesions. No evidence of fracture. Degenerative changes of the temporomandibular joints. Diffuse demineralization. ORBITS: No significant abnormality. PARANASAL SINUSES/MASTOID AIR CELLS: Predominantly clear. EXTRACRANIAL SOFT TISSUES: Unremarkable. CTA HEAD: Focal occlusion or critical stenosis of the left M2 superior division origin (e.g. series 401, image 483). The intracranial internal carotid arteries, anterior cerebral arteries, right middle cerebral artery, and posterior cerebral arteries are patent, without severe stenosis or occlusion. The intradural vertebral arteries and basilar artery are patent, without severe stenosis or occlusion. There is a somewhat irregular, inferiorly directed outpouching from the supraclinoid right ICA measuring approximately 4 mm in height (series 404, image 68). 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 The brachiocephalic and subclavian arteries are patent with no stenosis. The common carotid arteries are patent with no stenosis, mild mixed plaque is present in the the carotid bifurcations without significant stenosis. The vertebral arteries are patent with no stenosis. NON-ANGIOGRAPHIC NECK FINDINGS: Bones: Degenerative changes are present in the included spine. Cervical Soft Tissues: Multiple thyroid nodules, the largest on the left measuring 3 cm in maximal diameter. Lung Apices: Mosaic attenuation consistent with air trapping. Procedure Note Dheeraj Boyce MD - 03/21/2021 EXAMS: CT HEAD WO CONTRAST CT ANGIOGRAM HEAD AND NECK WITH CONTRAST HISTORY: Concern for acute CVA; Stroke/TIA, determine embolic source TECHNIQUE: CT of the head without contrast. CT angiogram of the head andneck with intravenous contrast. Maximal intensity projected reformattedimages were obtained, adjusted on an independent workstation, and reviewedprior to interpretation. Structured report code: NR.CT33 COMPARISON: None. FINDINGS: CT HEAD: PARENCHYMA: Subtle region of hypodensity noted in the left frontal lobe concerning randy evolving infarction. No acute parenchymal hemorrhage. No mass ormidline shift. Mild diffuse parenchymal volume loss. EXTRA-AXIAL SPACES: No acute extra-axial hemorrhage. No extra-axial collection. No extra-axialmass. VENTRICULAR SYSTEM: No acute intraventricular hemorrhage. No obstructive hydrocephalus. BONES: No concerning lesions. No evidence of fracture. Degenerative changes ofthe temporomandibular joints. Diffuse demineralization. ORBITS: No significant abnormality. PARANASAL SINUSES/MASTOID AIR CELLS: Predominantly clear. EXTRACRANIAL SOFT TISSUES: Unremarkable. CTA HEAD: Focal occlusion or critical stenosis of the left M2 superior divisionorigin (e.g. series 401, image 483). The intracranial internal carotidarteries, anterior cerebral arteries, right middle cerebral artery, andposterior cerebral arteries are patent, without severe stenosis orocclusion. The intradural vertebral arteries and basilar artery arepatent, without severe stenosis or occlusion. There is a somewhat irregular, inferiorly directed outpouching from thesupraclinoid right ICA measuring approximately 4 mm in height (series 404,image 68). 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 The brachiocephalic andsubclavian arteries are patent with no stenosis. The common carotidarteries are patent with no stenosis, mild mixed plaque is present in thethe carotid bifurcations without significant stenosis. The vertebralarteries are patent with no stenosis. NON-ANGIOGRAPHIC NECK FINDINGS: Bones: Degenerative changes are present in the included spine. Cervical Soft Tissues: Multiple thyroid nodules, the largest on the left measuring 3 cm inmaximal diameter. Lung Apices: Mosaic attenuation consistent with air trapping. IMPRESSION Subtle region of hypodensity in the left frontal lobe concerning forinfarction; further evaluation with MRI recommended. No acute hemorrhage,mass lesion, or midline shift. Focal critical stenosis or occlusion of left M2 superior division origin(series 401, image 483). No additional high grade stenosis or occlusion ofthe major arterial vasculature of the head and neck. Multiple thyroid nodules, the least measuring up to 3 cm in diameter.Complete evaluation by thyroid ultrasound recommended on a non-urgentoutpatient basis. 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 STENOSIS REFERENCE: MILD: < 50% MODERATE: 50-69% SEVERE: 70-89% HAIRLINE/CRITICAL: 90-99% OCCLUDED: 100% There is a difference between this interpretation and that provided by thepreliminary resident report which requires non-urgent notification. Thefinding of a right ICA aneurysm was discussed with Maryana Capellan on03/21/2021 at approximately 10:30 AM. I have personally reviewed the images and the above interpretation andagree with the findings. Geoff Alvarez MD IMG CT ORDERABLES * LIPID PROFILE (INCLUDES CHOLESTEROL, TRIGLYCERIDES, HDL, LDL) (03/20/2021 23:36 [facility]) Cholesterol 206 See Note mg/dL 03/21/2021 8:34 [facility] Comment: Acceptable: ?<200 mg/dL Borderline High: 200-239 mg/dL High: ?> or = 240 mg/dL HDL 59 See Note mg/dL 03/21/2021 8:34 [facility] Comment: Low: ? <40 mg/dL Normal: ??40-60 mg/dL High: ?>60 mg/dL LDL, Calculated 111 See Note mg/dL 03/21/2021 8:34 [facility] Comment: Optimal: ? <100 mg/dL Near Optimal: ?100-129 mg/dL Borderline High: 130-159 mg/dL High: ?160-189 mg/dL Very High: ? > or = 190 mg/dL Triglyceride 178 See Note mg/dL 03/21/2021 8:34 [facility] Comment: Normal: ? <150 mg/dL Borderline High: ??150 - 199 mg/dL High: ? 200 - 499 mg/dL Very High: ?> or = 500 mg/dL Chol/HDL Ratio 3.5 See Note 03/21/2021 8:34 [facility] Comment:No reference range h as been established for CHOL/HDL ratio. Non HDL Cholesterol 147 See Note mg/dL 03/21/2021 8:34 [facility] Comment: Desirable: ?<130 mg/dL Borderline High: ??130-159 mg/dL High: ? 160-189 mg/dL Very High: ?> or = 190 mg/dL Blood VENOUS BLOOD / Unknown Venipuncture / Unknown 03/20/2021 23:36 EST 03/20/2021 23:40 EST Mariama Davis MD CHEMISTRY & BLOOD GA S ORDERABLES Performing Organization Address [facility] Co de Phone Number [facility] [address] [place] [address] * (ABNORMAL) HEMOGLOBIN A1C (03/20/2021 23:36 EST) Hemoglobin A1c 5.7(H) <5.7 % 03/21/2021 11:19 EST [facility] Comment: Glycemic Status References: Normal: ??<5.7% Pre-Diabetes: ??5.7% - 6.4% Diagnostic of Diabetes: ??> or = 6.5% (if confirmed) Est Avg Glucose 117 mg/dL 11:19 EST [facility] Comment:The eAG represents t he A1c result expressed as average glucose in mg/dL. Blood VENOUS BLOOD / Unknown Venipuncture / Unknown 03/20/2021 23:36 EST 03/20/2021 23:40 EST Mariama Davis MD CHEMISTRY & BLOOD GA S ORDERABLES Performing Organization Address [facility] Co de Phone Number [facility] [address] [place] [address] * ETHANOL, BLOOD (03/20/2021 23:36 EST) Ethanol, Blood <10 See Note mg/dL 03/21/2021 1:33 EST [facility] Comment: NOTE: Ethanol is not present at detectable concentrations (<10 mg/dL) in healthy, non-drinking individuals. Blood VENOUS BLOOD / Unknown Venipuncture / Unknown 03/20/2021 23:36 EST 03/20/2021 23:40 EST Geoff Alvarez MD CHEMISTRY & BLOOD GAS ORDERABLES Performing Organization Address [facility]/ZIP Co de Phone Number [facility] [address] [place] [address] * HOLD BLUE TOP (03/20/2021 23:36 EST) Hold Hold 03/21/2021 0:45 EST [facility] Blood VENOUS BLOOD / Unknown Venipuncture / Unknown 03/20/2021 23:36 EST 03/20/2021 23:40 EST Geoff Alvarez MD LAB INFO SERVICE AND SUPPORT & PHONE RESULT Performing Organization Address [facility] de Phone Number [facility] [address] [place] [address] * TROPONIN I (03/20/2021 23:36 EST) [facility] Troponin I (ng/mL) <0.034 <0.034 ng/mL 03/21/2021 0:07 EST [facility] Blood VENOUS BLOOD / Unknown Venipuncture / Unknown 03/20/2021 23:36 EST 03/20/2021 23:40 EST Narrative [facility] - 03/21/2021 0:07 EST The results of this assay can be falsely lowered due to the consumption of Biotin. Geoff Alvarez MD CHEMISTRY & BLOOD GAS ORDERABLES Performing Organization Address [facility] Co de Phone Number [facility] [address] [place] [phone] * PTT (03/20/2021 23:36 EST) [facility] PTT 31 26 - 37 secs 03/20/2021 23:55 EST [facility] Blood VENOUS BLOOD / Unknown Venipuncture / Unknown 03/20/2021 23:36 EST 03/20/2021 23:40 EST Geoff Alvarez MD HEMATOLOGY & PF4 ORDERABLES Performing Organization Address [facility] Co de Phone Number [facility] [address] [place] [address] * PROTIME (03/20/2021 23:36 EST) I.N.R. 1.0 0.9 - 1.1 Ratio 03/20/2021 23:55 EST [facility] Pro Time 11.2 10.4 - 12.6 secs 03/20/2021 23:55 EST [facility] Blood VENOUS BLOOD / Unknown Venipuncture / Unknown 03/20/2021 23:36 EST 03/20/2021 23:40 EST Narrative [facility] - 03/20/2021 23:55 EST Moderate Intensity Coumadin INR = 2.0-3.0 Adjustments in anticoagulant therapy dose should be based on the INR and NOT on the Protime. Geoff Alvarez MD HEMATOLOGY & PF4 ORDERABLES Performing Organization Address [facility]/ZIP Co de Phone Number [facility] [address] [place] [address] * (ABNORMAL) CREATININE (03/20/2021 23:36 EST) Creatinine 1.04 0.52 - 1.04 mg/dL 03/20/2021 23:56 EST [facility] eGFR 51(L) >60 mL/min/1.73 m2 03/20/2021 23:56 EST [facility] Blood VENOUS BLOOD / Unknown Venipuncture / Unknown 03/20/2021 23:36 EST 03/20/2021 23:40 EST Geoff Alvarez MD CHEMISTRY & BLOOD GAS ORDERABLES [facility] [address] [place] [address] * BUN (03/20/2021 23:36 EST) BUN 14 10 - 26 mg/dL 03/20/2021 23:56 EST [facility] Blood VENOUS BLOOD / Unknown Venipuncture / Unknown 03/20/2021 23:36 EST 03/20/2021 23:40 EST Geoff Alvarez MD CHEMISTRY & BLOOD GAS ORDERABLES Performing Organization Address [facility] Co de Phone Number [facility] [address] [place] [address] * (ABNORMAL) ELECTROLYTES (03/20/2021 23:36 EST) Sodium 137 136 - 145 mmol/L 03/20/2021 23:56 [facility] Potassium 3.4(L) 3.5 - 5.0 mmol/L 03/20/2021 23:56 [facility] Chloride 101 96 - 110 mmol/L 03/20/2021 23:56 [facility] CO2 Total 29 22 - 32 mmol/L 03/20/2021 23:56 [facility] Anion Gap 7(L) 8 - 16 03/20/2021 23:56 [facility] Blood VENOUS BLOOD / Unknown Venipuncture / Unknown 03/20/2021 23:36 EST 03/20/2021 23:40 EST Geoff Alvarez MD CHEMISTRY & BLOOD GAS ORDERABLES Performing Organization Address [facility] de Phone Number [facility] [address] [place] [address] * (ABNORMAL) COMPLETE BLOOD COUNT AND DIFFERENTIAL (03/20/2021 23:36 EST) WBC 12.93(H) 4.00 - 12.40 K/cmm 03/20/2021 23:44 [facility] RBC 4.27 3.86 - 5.04 M/cmm 03/20/2021 23:44 [facility] Hemoglobin 12.4 11.6 - 15.2 gm/dL 03/20/2021 23:44 [facility] HCT 37.4 34.9 - 44.4 % 03/20/2021 23:44 [facility] MCV 88 81 - 98 fl 03/20/2021 23:44 [facility] MCH 29.0 26.7 - 33.3 pg 03/20/2021 23:44 [facility] MCHC 33.2 32.1 - 35.9 gm/dL 03/20/2021 23:44 [facility] RDW-CV 13.2 <14.7 % 03/20/2021 23:44 [facility] RDW-SD 42.4 <50.4 fl 03/20/2021 23:44 [facility] PLT 303 141 - 377 K/cmm 03/20/2021 23:44 [facility] MPV 9.6 9.5 - 12.7 fl 03/20/2021 23:44 [facility] % Neutrophils 71.8 % 03/20/2021 23:44 [facility] % Lymphocytes 15.5 % 03/20/2021 23:44 [facility] % Monocytes 6.7 % 03/20/2021 23:44 [facility] % Eosinophils 4.9 % 03/20/2021 23:44 [facility] % Basophils 0.8 % 03/20/2021 23:44 [facility] % Immature Grans 0.3 % 03/20/20 23:44 [facility] Absolute Neutrophils 9.30(H) 2.20 - 8.85 K/cmm 03/20/2021 23:44 [facility] Absolute Lymphocytes 2.00 1.09 - 3.30 K/cmm 03/20/2021 23:44 [facility] Absolute Monocytes 0.86(H) 0.10 - 0.80 K/cmm 03/20/2021 23:44 [facility] Absolute Eosinophils 0.63(H) 0.03 - 0.61 K/cmm 03/20/2021 23:44 [facility] ABS Basophils 0.10 0.01 - 0.11 K/cmm 03/20/2021 23:44 [facility] Absolute Immature Grans 0.04 0.00 - 0.06 K/cmm 03/20/2021 23:44 EST [facility] Type of Differential: Auto 03/20/2021 23:44 EST [facility] Blood VENOUS BLOOD / Unknown Venipuncture / Unknown 03/20/2021 23:36 EST 03/20/2021 23:40 EST Geoff Alvarez MD PACKAGES & DNA NC OBE ORDERABLES Performing Organization Address [facility]/ZIP Co de Phone Number [facility] [address] [place] [address] * (ABNORMAL) SCREENING GLUCOSE (03/20/2021 23:36 EST) Glucose, Screening 113(H) 70 - 100 mg/dL 03/20/2021 23:56 EST [facility] Blood VENOUS BLOOD / Unknown Venipuncture / Unknown 03/20/2021 23:36 EST 03/20/2021 23:40 EST Geoff Alvarez MD CHEMISTRY & BLOOD GAS ORDERABLES Performing Organization Address [facility] Co de Phone Number [facility] [address] [place] [address] * (ABNORMAL) POCT GLUCOSE, INTERFACED (03/20/2021 23:31 EST) Glucose, POC 109(H) 70 - 100 mg/dL 03/20/2021 23:35 EST [facility] HN LAB POC COMMENT (GLUCOSE) Test Performed by Nursing Services 03/20/2021 23:35 EST [facility] Blood CAPILLARY BLOOD / Unknown 03/20/2021 23:31 EST 03/20/2021 23:35 EST Provider Unknown POINT OF CARE TEST O RDERABLES Performing Organization Address [facility]/ZIP Co de Phone Number [facility] [address] [place] [address] * POCT GLUCOSE, INTERFACED (03/20/2021 23:29 EST) Glucose, POC 74 70 - 100 mg/dL 03/20/2021 23:35 EST [facility] HN LAB POC COMMENT (GLUCOSE) Test Performed by Nursing Services 03/20/2021 23:35 EST [facility] Blood CAPILLARY BLOOD / Unknown 03/20/2021 23:29 EST 03/20/2021 23:35 EST Provider Unknown MD POINT OF CARE TEST O RDERALEONEL Performing Organization Address City/State/[facility] Co de Phone Number [facility] [address] [place] [address] documented in this encounter Visit Diagnoses Diagnosis CVA (cerebral vascular accident) ([facility])- Primary 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 ([facility]) Aphasia Aneurysm, carotid artery, internal Cerebral aneurysm, nonruptured Thyroid nodule Nontoxic uninodular goiter Stroke determined by clinical assessment ([facility]) documented in this encounter Admitting Diagnoses Diagnosis Stroke determined by clinical assessment ([facility]) documented in this encounter Administered Medications Inactive Administered Medications - up to 3 most recent administrations Medication Order MAR Action Action Date Dose Rate Site artificial saliva solution 5 mL 5 mL, oral, PRN, Starting on Sun03/23/21 at 1324, Until Sun03/24/21 at 1438, Dry Mouth, Routine Given 03/23/2021 14:00 EST 5 mL aspirin EC tablet 81 mg 81 mg, oral, DAILY, First dose (after last modification) on Sun03/21/21 at 0900, Until Discontinued, Routine Given 03/24/2021 9:10 EST 81 mg Given 03/23/2021 9:33 EST 81 mg Given 03/22/2021 9:29 EST 81 mg atorvastatin (LIPITOR) tablet 40 mg 40 mg, oral, DAILY, First dose on Sun03/21/21 at 0900, Until Discontinued, Routine Given 03/24/2021 9:10 EST 40 mg Given 03/23/2021 9:33 EST 40 mg Given 03/22/2021 9:29 EST 40 mg buPROPion (WELLBUTRIN SR) SR tablet 150 mg 150 mg, oral, 2 TIMES DAILY, First dose on Sun03/21/21 at 0900, Until Discontinued, Routine Given 03/24/2021 9:10 EST 1 50 mg Given 03/23/2021 20:15 EST 150 mg Given 03/23/2021 9:33 EST 150 mg clopidogreL (PLAVIX) tablet 300 mg 300 mg, oral, NOW X1, 1 dose, On Sun03/21/21 at 0330, Routine Given 03/21/2021 5:30 EST 300 mg clopidogreL (PLAVIX) tablet 75 mg 75 mg, oral, DAILY, First dose (after last modification) on Sun03/22/21 at 0900, Until Discontinued, Routine Given 03/24/2021 9:11 EST 75 mg Given 03/23/2021 9:33 EST 75 mg Given 03/22/2021 9:29 EST 75 mg enoxaparin (LOVENOX) injection 40 mg 40 mg, subcutaneous, DAILY, First dose on Sun03/21/21 at 0900, Until Discontinued, Routine Given 03/24/2021 9:11 EST 40 mg Left Low er Abdomen Given 03/23/2021 9:32 EST 40 mg Given 03/22/2021 9:29 EST 40 mg furosemide (LASIX) tablet 20 mg 20 mg, oral, DAILY, First dose on Sun03/23/21 at 1415, Until Discontinued, Routine Given 03/24/2021 9:10 EST 20 mg Given 03/23/2021 15:14 EST 20 mg iohexoL (OMNIPAQUE 350) solution 100 mL 100 mL, intravenous, Once in imaging, 1 dose, Starting on 03/20/21 at 2338, Until 03/20/21 at 2349, Routine, Imaging Protocol Orders Given 03/20/2021 23:49 EST 85 mL LORazepam (ATIVAN) tablet 0.5 mg 0.5 mg, oral, 3 TIMES DAILY PRN, Starting on Sun03/23/21 at 1711, Until Magdalena 03/24/21 at 1438, Anxiety, Routine Given 03/23/2021 20:19 EST 0.5 mg losartan (COZAAR) tablet 100 mg 100 mg, oral, DAILY, First dose (after last modification) on Sun03/24/21 at 0900, Until Discontinued, Routine Given 03/24/2021 9:10 EST 100 mg losartan (COZAAR) tablet 50 mg 50 mg, oral, DAILY, First dose on Sun03/23/21 at 1215, Until Discontinued, Routine Given 03/23/2021 13:22 EST 50 mg losartan (COZAAR) tablet 50 mg 50 mg, oral, NOW X1, 1 dose, On Sun03/23/21 at 1545, Routine Given 03/23/2021 15:37 EST 50 mg sodium chloride 0.9 % (NS) infusion at 100 mL/hr, intravenous, CONTINUOUS, Starting on Sun03/21/21 at 1345, Until Sun03/22/21 at 1423, Routine New Bag 03/22/2021 11:51 EST 100 mL/hr Rate Documented 03/22/2021 9:30 EST 100 mL/hr New Bag 03/22/2021 1:53 EST 100 mL/hr documented in this encounter Discontinued Medications Medication Sig Discontinue Reason Start Date End Da te lovastatin (MEVACOR) 20 mg tablet Take 1 tablet by mouth once daily 08/17/2020 03/24/2021 losartan (COZAAR) 50 mg tablet Take 1 tablet by mouth once daily 03/18/2021 03/24/2021 documented as of this encounter Active and Recently Administered Medications Times are shown in EST. Scheduled Medication Order 03/22/2021 03/23/2021 03/24/2021 aspirin EC tablet 81 mg 81 mg, oral, DAILY, First dose (after last modification) on Sun03/21/21 at 0900, Until Discontinued, Routine 09 (Given - Provider: Katheryn Wyman RN) 0933 (Given - Provider: Lisa Alonzo, HARINDER) 0910 (Given - Provider: Racquel Ramesh, HARINDER) atorvastatin (LIPITOR) tablet 40 mg 40 mg, oral, DAILY, First dose on Sun03/21/21 at 0900, Until Discontinued, Routine 09 (Given - Provider: Katheryn Wyman RN) 0933 (Given - Provider: Lisa Alonzo, HARINDER) 0910 (Given - Provider: Racquel Ramesh, HARINDER) buPROPion (WELLBUTRIN SR) SR tablet 150 mg 150 mg, oral, 2 TIMES DAILY, First dose on Sun03/21/21 at 0900, Until Discontinued, Routine 0929 (Given - Provider: Katheryn Wyman RN)2046 (Given - Provider: Roberto Ramirez RN) 0933 (Given - Provider: Lisa Alonzo RN)2014 (Given - Provider: Raffi Neil RN) 0910 (Given - Provider: Racquel Ramesh RN) clopidogreL (PLAVIX) tablet 75 mg 75 mg, oral, DAILY, First dose (after last modification) on Sun03/22/21 at 0900, Until Discontinued, Routine 0929 (Given - Provider: Katheryn Wyman RN) 0933 (Given - Provider: Lisa Alonzo RN) 0911 (Given - Provider: Racquel Ramesh RN) enoxaparin (LOVENOX) injection 40 mg 40 mg, subcutaneous, DAILY, First dose on Sun03/21/21 at 0900, Until Discontinued, Routine 0929 (Given - Provider: Katheryn Wyman RN) 0932 (Given - Provider: Lisa Alonzo RN) 0911 (Given - Provider: Racquel Ramesh RN) furosemide (LASIX) tablet 20 mg 20 mg, oral, DAILY, First dose on Sun03/23/21 at 1415, Until Discontinued, Routine 1514 (Given - Provider: Lisa Alonzo RN) 0910 (Given - Provider: Racquel Ramesh RN) insulin aspart U-100 (NOVOLOG FLEXPEN) injection subcutaneous, 3 TIMES DAILY WITH MEALS, First dose on Sun03/21/21 at 0800, Until Discontinued, Routine 0929 (Not Given - Provider: Katheryn Wyman RN - Reason: Order parameters not met - Comment: FS 127)1213 (Not Given - Provider: Katheryn Wyman RN - Reason: Order parameters not met)1739 (Not Given - Provider: Katheryn Wyman RN - Reason: Order parameters not met - Comment: FS 103) 0909 (Not Given - Provider: Lisa Alonzo RN - Reason: Order parameters not met)1134 (Not Given - Provider: Lisa Alonzo RN - Reason: Order parameters not met)1838 (Not Given - Provider: Lisa Delgado RN - Reason: Order parameters not met) 0911 (Not Given - Provider: Racquel Ramesh RN - Reason: Order parameters not met)1234 (Not Given - Provider: Racquel Ramesh RN - Reason: Other - Comment: Patient discharged home) losartan (COZAAR) tablet 100 mg 100 mg, oral, DAILY, First dose (after last modification) on Sun03/24/21 at 0900, Until Discontinued, Routine 0910 (Given - Provider: Racquel Ramesh, HARINDER) losartan (COZAAR) tablet 50 mg (CANCELED) 50 mg, oral, DAILY, First dose on Sun03/23/21 at 1215, Until Discontinued, Routine 1322 (Given - Provider: Wendy Cho, HARINDER) losartan (COZAAR) tablet 50 mg (COMPLETED) 50 mg, oral, NOW X1, 1 dose, On Sun03/23/21 at 1545, Routine 1537 (Given - Provider: Lisa Delgado, HARINEDR) Continuous Medication Order 03/22/2021 03/23/2021 03/24/2021 sodium chloride 0.9 % (NS) infusion () at 100 mL/hr, intravenous, CONTINUOUS, Starting on Sun03/21/21 at 1345, Until Sun03/22/21 at 1423, Routine 0153 (New Bag - Provider: Bre King RN)0930 (Rate Documented - Provider: Katheryn Wyman RN)1151 (New Bag - Provider: Jesus Estrada RN)1300 (IV Stopped - Provider: Katheryn Wyman RN)1611 (Hold - Provider: Katheryn Wyman RN - Reason: Loss of IV access) PRN Medication Order 03/22/2021 03/23/2021 03/24/2021 artificial saliva solution 5 mL 5 mL, oral, PRN, Starting on Sun03/23/21 at 1324, Until Sun03/24/21 at 1438, Dry Mouth, Routine 1400 (Given - Provider: Stefania Alonzo, HARINDER) dextrose 50 % solution 12.5 g 12.5 g (25 mL), intravenous, PRN, Starting on Sun03/21/21 at 0751, Until Sun03/24/21 at 1438, Low Blood Sugar, Routine glucagon injection 1 mg 1 mg, intramuscular, PRN, Starting on Sun03/21/21 at 0751, Until Sun03/24/21 at 1438, Other, Low blood sugar, Routine LORazepam (ATIVAN) tablet 0.5 mg 0.5 mg, oral, 3 TIMES DAILY PRN, Starting on Sun03/23/21 at 1711, Until Magdalena 03/24/21 at 1438, Anxiety, Routine 2019 (Given - Provider: Raffi Neil, RN) documented in this encounter Orders Medications Ordered That Salbador ht Not Have Been Administered Count Last Ordered Date First Ordered Date aspirin EC tablet 81 mg 1 03/21/2021 clopidogreL (PLAVIX) tablet 75 mg 1 021 dextrose 50 % solution 12.5 g 1 03/21/2021 glucagon injection 1 mg 1 03/21/2021 insulin aspart U-100 (NOVOLO G FLEXPEN) injection 1 03/21/2021 Diet Count Last Ordered Date First Orde red Date DISCHARGE DIET 1 03/24/2021 Nursing Count Last Ordered Date First Orde red Date ACTIVITY INSTRUCTIONS 1 03/24/2021 BATHING INSTRUCTIONS 1 03/24/2021 DRIVING INSTRUCTIONS 1 03/24/2021 PT Count Last Ordered Date First Orde red Date PT EVALUATION AND TREAT 1 03/21/2021 Admission Count Last Ordered Date First Orde red Date ADMIT TO INPATIENT 1 03/21/2021 Transfer Count Last Ordered Date First Orde red Date ED BED REQUEST 1 03/21/2021 Discharge Count Last Ordered Date First Orde red Date DISCHARGE PATIENT 1 03/24/2021 documented in this encounter Care Teams Wrecking Car Driver Relationship Specialty Start Date End Date Otis Gee MD PCP - General 01/14/10 08/08/22 documented as of this encounter
--- OUTSIDE RECORDS SUMMARY | 2024-02-08 01:12 | XMS_ITS | Encounter Summary ---
Author Organization [facility] Address [address] [place] [address] Care Team Providers Care Sales Architect Name Role Phone Otis Gee MD Primary Care Provider Unava ilable Reason for Visit * Reason Onset Date Comments Shortness of Breath 01/13/2021 Encounter Details Date Type Department Care Team ([facility] Contact Info) Description 01/13/2021 Telephone [facility] [place] [address] [address] , [facility] [address] [place], [place] [address] Otis Gee MD Shortness of Breath Social History Tobacco Use Types Packs/Day Years [...] No 09/04/2019 documented as of this encounter Miscellaneous Notes * Telephone Encounter - Bre Day RN - 01/17/2021 2055 EDT Pt notified per TC note and verbalized understanding. Pt scheduled for 02/22/21 with TC * Telephone Encounter - Otis Gee MD - 01/17/2021 1332 EDT Should drop back to previous dosing- 2 in am, I in afternoon. Other issues can be in followup appt if she wants to set one up * Telephone Encounter - Bre Day RN - 01/17/2021 1014 EDT Pt reports heaviness in chest is mostly gone. SOB is much better and that pt is able to be more active than last week, although she is still tired in the afternoon. Ankles are just about as small as they can get. Pt is no longer constipated. Pt dropped lasix dosing back to 2 in am and 1 in afternoon yesterday. Pt took 2 lasix this am and is wondering about the afternoon dose, should she take it regularly or just as needed. Pt continuing to urinate frequently even as sh has decreased the lasix, pt denied UTI SXS. Pt mentioned 2 other ongoing concerns, occurring for yrs 1)throat sometimes feels constricted, she chokes frequently, has acid reflux frequently and sometimes food comes back up after swallowing it. Pt thinks this is stress related. 2)pt has ear pain that goes down neck and up into head behind holiness. Pain associated with arm/shoulder movements. No drainage from ear. Hearing is muffled which is not new but is increasing. Pt associates SXS with the corner of the back of head where injury was years ago. TC-please advise on Lasix dosing. Would you like an appt to discuss other concerns? How far out? * Telephone Encounter - Gill Oliver DNP - 01/14/2021 1121 EDT Noted, back to nursing to check in on Sunday * Telephone Encounter - Bre Day RN - 01/14/2021 1023 EDT Pt states she is feeling better than she has in the last 5-6 days. Pt increased her Lasix 20 mg yesterday taking 2 tabs in am, 2 tabs at 1:00 pm and 1 tab at 4:00pm. Chest heaviness is improved today, pt states it may still be slightly present but nothing like it was. Ankle swelling has decreased. Pt describes breathing as a little easier and she denies SOB with getting up to use the bathroom. Pt is very tired. Pt reports getting up and moving around is much easier today. Today pt states she is urinating every few minutes. Pt denies burning/pain/urge/blood with urination, abdominal/back pain, fever. Pt states earlier in the week she had upper back pain but that has passed. Pt also states her partial teeth have felt tight and like her gums were swelling around them. Pt is thinking this is due to her overall swelling. Pt also reports constipation. RG was updated on pt's current SXS and advised the following. 1)monitor SXS over the weekend and if they worsen the pt needs to go to the ED 2)Take 2 lasix in am and 2 in the afternoon until Sunday 3)Have the pt call on Sunday to give us an update Pt notified of RG recommendations. Pt verbalized understanding and agreed to go to ED if her SXS worsen. Update to RG and then back to Nurse Pool to call pt on Sunday. * Telephone Encounter - Gill Oliver DNP - 01/13/2021 1531 EDT Noted, pls call tomorrow to check in * Telephone Encounter - Nupur Benson RN - 01/13/2021 1452 EDT Patient said she has been feeling like her chest is very heavy over the past week. It has worsened today. Today is very tired. More short of breath and weak than usual. She said her ankles are swollen- has been trying to keep them elevated. I advised she go to the ER today immediately and she said she has no way to go, and refusing ambulance. She said she will make a few calls to see if she can get a ride, but if she can't she will go in the morning because her has an appointment at the hospital. I reiterated to her multiple times the importance of going to ER now to rule out cardiac issue- I explained the importance of time factor. She verbalized understanding, but again said she will not take ambulance if she cannot find a ride today and will just go tomorrow. I told her that if the heaviness/shortness of breath increases today and she was unable to obtain aride, she needs to call for an ambulance. She said she would later if it worsened. To RG. documented in this encounter Plan of Treatment Upcoming Encounters Date Type Department Care Team (Late st Contact Info) Description 05/19/2024 11:00 EST Office Visit [facility] Family Medicine [address], [facility] [address] [place] [address] Dane Rick MD [address] [place] [address] [address] [place] [phone] documented as of this encounter Visit Diagnoses Not on filedocumented in this encounter Care Teams Sales Architect Relationship Specialty Start Date End Date Otis Gee MD PCP - General 01/14/10 08/08/22 documented as of this encounter
--- OUTSIDE RECORDS SUMMARY | 2024-02-08 01:12 | XMS_ITS | Encounter Summary ---
Author Organization [facility] Address [address] [place] [address] Care Team Providers Care Field Talent Qualification Specialist Name Role Phone Otis Gee MD Primary Care Provider Elisabet Mathews RN Unavailable [phone] Reason for Visit * Reason Onset Date Comments Coordination Of Care 08/04/2021 Encounter Details Date Type Department Care Team ([facility] Contact Info) Description 08/04/2021 Telephone [facility] [address], [facility] [address] [place] [address] Zehra Aponte, HARINDER Coordination Of [...] Miscellaneous Notes * Telephone Encounter - Elisabet Cordova RN - 08/04/2021 1030 EDT CHT RN contacted pt. Scheduled home visit for Sunday08/05/21 at 3 pm to review meds. documented in this encounter Plan of Treatment Upcoming Encounters Date Type Department Care Team (Late st Contact Info) Description 05/19/2024 11:00 EST Office Visit [facility] Family Medicine [address], [address] [place] [address] Dane Rick MD [address] [place] [address] [address] [place] [phone] documented as of this encounter Visit Diagnoses Not on filedocumented in this encounter Care Teams Field Talent Qualification Specialist Relationship Specialty Start Date End Date Otis Gee MD PCP - General 01/14/10 08/08/22 Elisabet Aponte RN [address] [place] [address],[facility] [address] [place] [address] Marketing Forecaster 06/29/21 04/09/22 documented as of this encounter
--- OUTSIDE RECORDS SUMMARY | 2024-02-08 01:12 | XMS_ITS | Encounter Summary ---
Author Organization [facility] Address [address] [place] [address] Care Team Providers Care Geophysical E Logger Name Role Phone Otis Gee MD Primary Care Provider Unava ilable Encounter Details Date Type Department Care Team (Latest Contact Info) Description 06/17/2021 Travel Social History Tobacco Use Types Packs/Day [...] Info) Description 05/19/2024 11:00 EST Office Visit [address], [address] [address] Dane Rick MD [address] [place] [phone] documented as of this encounter Visit Diagnoses Not on filedocumented in this encounter Care Teams Geophysical E Logger Relationship Specialty Start Date End Date Otis Gee MD PCP - General 01/14/10 08/08/22 documented as of this encounter
--- OUTSIDE RECORDS SUMMARY | 2024-02-08 01:12 | XMS_ITS | Encounter Summary ---
Author Organization [facility] Address [address] [place] [address] Care Team Providers Care Commissioning Agent Name Role Phone Oits Gee MD Primary Care Provider Unava ilable Reason for Visit * Reason Comments Other Encounter Details Date Type Department Care Team ([facility] Contact Info) Description 03/16/2021 Refill [place] [address], [address] [place] [address] Otis Gee MD Other Social History Tobacco Use Types Packs/Day [...] No 09/04/2019 documented as of this encounter Ordered Prescriptions Prescription Sig Dispensed Refills Start Date End Da te losartan (COZAAR) 50 mg tablet Take 1 tablet by mouth once daily 90 Tablet 03/18/2021 03/24/2021 furosemide (LASIX) 20 mg tablet TAKE 2 TABLETS BY MOUTH IN THE MORNING AND 1 IN THE AFTERNOON 270 Tablet 03/18/2021 06/21/2021 buPROPion (WELLBUTRIN SR) 150 mg SR tablet Take 1 tablet by mouth twice daily 180 Tablet 03/18/2021 06/21/2021 documented in this encounter Miscellaneous Notes * Telephone Encounter - Roxie Henley, RN - 03/18/2021 0934 EST Azul 02/22/21 Nov none No show for cmp,microalbumin and lipids 09/20 documented in this encounter Plan of Treatment Upcoming Encounters Date Type Department Care Team (Late st Contact Info) Description 05/19/2024 11:00 EST Office Visit [facility] Family Medicine [address], [address] [place] [address] Dane Rick MD [address] [place] [address] [place] [phone] documented as of this encounter Visit Diagnoses Not on filedocumented in this encounter Discontinued Medications Medication Sig Discontinue Reason Start Date End Da te buPROPion (WELLBUTRIN SR) 150 mg SR tablet Take 1 tablet by mouth twice daily 12/09/2020 03/18/2021 furosemide (LASIX) 20 mg tablet TAKE 2 TABLETS BY MOUTH IN THE MORNING AND 1 TABLET IN THE AFTERNOON 12/09/2020 03/18/2021 losartan (COZAAR) 50 mg tablet Take 1 tablet by mouth once daily 12/09/2020 03/18/2021 documented as of this encounter Care Teams Commissioning Agent Relationship Specialty Start Date End Date Otis Gee MD PCP - General 01/14/10 08/08/22 documented as of this encounter
--- OUTSIDE RECORDS SUMMARY | 2024-02-08 01:12 | XMS_ITS | Encounter Summary ---
Author Organization [facility] Address [address] [place] [address] Care Team Providers Care Professor In Family Studies Name Role Phone Otis Gee MD Primary Care Provider Unava ilable Reason for Visit * Reason Onset Date Comments Medication Problem 05/02/2021 Lost all med' s while moving Breast Pain 05/02/2021 Pain just under R breast, 2-3 days progressing Appointment Related 05/02/2021 Wants to com e in for double apt with Encounter Details Date Type Department Care Team ([facility] st Contact Info) Description 05/02/2021 Telephone [facility] [address], [address] [place] [address] Otis Gee MD Medication Problem (Lost all med's while moving); Breast Pain (Pain just under R breast, 2-3 days progressing); Appointment Related (Wants to come in for double apt with ) Social History Tobacco Use Types Packs/Day [...] Telephone Encounter - Bre Day RN - 05/02/2021 1030 EST 1)Pt reports for last week she has had pain under right breast on side of chest. Pain occurs at rest. Pt is unsure if there is pain elsewhere in her chest or if there is chest pressure present. Pt has left sided head pain at baseline. Pt denies chest palpitations, SOB, vision changes. Pt had some di zziness/lightheadedness this am. 2)pt reports this am feeling weird and weak, couldn't lift myself up. Pt got up and had a few cheerios and felt a little better. Pt repoerts she ate very little food yesterday.Feeling has passed atthis point. Pt states she had a little loss of balance and some dizziness/lightheadedness. Pt says she has some facial droop at baseline, nothing new/different today. Pt unsure if arms were weak/numb. Pt denies confusion. Pt was up alone and not talking to anyone so unaware of changes in speech. 3)Pt just moved and thinks her med's were thrown away in the process. Pt states she needs atorvastatin, furosemide, bupropion, losartan. Pt aware insurance may not cover getting then refilled. Suha Acuna states pt is due for a refill on all 4 med's and they are in the refill process today. Pt notified. Pt scheduled with TC for a visit today * Telephone Encounter - Marta Oh - 05/02/2021 0936 EST Kenyatta returning nurse call regarding Ankit. Patient reports they have moved, while movingshe misplaced all of her med's, can't find any of them. She also reports pain just under her R breast, continuing 2-3 days. She said breast pain could be related to moving. MM is speaking with her regarding Ankit, will f/u on these issue's as well. documented in this encounter Plan of Treatment Upcoming Encounters Date Type Department Care Team (Late st Contact Info) Description 05/19/2024 11:00 EST Office Visit [facility] Family Medicine [address], [facility] [address] [place] [address] Dane Rick MD [address] [place] [address] [address] [place] [phone] documented as of this encounter Visit Diagnoses Not on filedocumented in this encounter Care Teams Professor In Family Studies Relationship Specialty Start Date End Date Otis Gee MD PCP - General 01/14/10 08/08/22 documented as of this encounter
--- OUTSIDE RECORDS SUMMARY | 2024-02-08 01:12 | XMS_ITS | Encounter Summary ---
Author Organization [facility] Address [address] [place] [address] Care Team Providers Care Hydroponics Worker Name Role Phone Otis Gee MD Primary Care Provider Unava ilable Reason for Referral * Radiology Services (Routine/Next Available) - Authorization Not Required Specialty Diagnoses / Procedures Referred By Franky ferreira Referred To Contact Diagnoses Thyroid nodule Procedures US THYROID/[place]ECK Otis Gee [place] [facility] [place]erral ID Status Reason Start Date Expiration Date Visits Requested Visits Authorized [id number] Authorization Not Required 04/05/2021 1 1 Reason for Visit * Reason Comments Hospital Discharge Follow Up Encounter Details Date Type Department Care Team (Latest Contact Info) Description 04/05/2021 14:00 EST Office Visit [facility] Medicine [facility] [address], [address] [place] [address] Otis Gee MD 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 (HCC-CMS) (HCC) (HCC-CMS) (Primary Dx); Arteriosclerotic cardiovascular disease; Essential (primary) hypertension; Hypercholesterolemia; ABDOULAYE (obstructive sleep apnea); Balance problem; Thyroid nodule; Other congestive heart failure (HCC) (HCC-CMS); Traumatic brain injury with loss of consciousness, sequela (HCC-CMS) (HCC) Social History Tobacco Use Types Packs/Day Years [...] 13:53 EST documented as of this encounter Last Filed Vital Signs Vital Sign Reading Time Taken Comments Blood Pressure 98/62 04/05/2021 1400 EST Pulse 63 04/05/2021 1400 EST Temperature - - Respiratory Rate - - Oxygen Saturation 97% 04/05/2021 1400 EST Inhaled Oxygen Concentration - - Weight 81.5 kg (179 lb 9.6 oz) 04/05/[address] Height 153 cm (5' 0.24) 04/05/2021 1400 EST Body Mass Index 34.8 04/05/2021 1400 EST documented in this encounter Functional Status [...] Progress Notes * Otis Gee MD - 04/05/2021 1400 EST [facility] [place] Care -------flu shot, Subjective: Chief Complaint(s): Hospital Discharge Follow Up presented to [facility]on 03/20/2021?as stroke code??for??right sided weakness??and??aphasia at home.??CT head and neck??did not show hemorrhage or proximal occlusion (distal L M2 occlusion).?Found to have acute left frontal lobe ischemic stroke.?Expressive aphasia has resolved upon interview on 03/22. She was admitted to Neurology service for further work up. ?? TTE showed an EF 60-65%; no regional wall abnormalities, LA normal size. ??Physical therapy??originally recommended??acute rehab, but her strength improved significantly as well as her aphasia. She is now recommended for home with supervision. Etiology of stroke cryptogenic.?? From discharge summary: In office today, talking about why she says it happened, she relates this story: Speaks of stress of getting a headstone for her dad as cause of stroke.fell at the onset, though she had fallen and she was non responsive.was transported to [facility]- speech didcome back to her, rigaht Shows she has many bruises after getting home and tripped over a vacuum. She says HH came and is now dismissed, no benefit from them. Is not in PT. Does not want it. Unaware of other issues found incidentally at hospital. In mention of thyroid says she has some swallowing issues at times, not consistent I have reviewed patient's tobacco history: reports [...] Take 1 Tablet by mouth daily., Disp: 30 Tablet, Rfl: 11 ??? buPROPion (WELLBUTRIN SR) 150 mg SR tablet, Take 1 tablet by mouth twice daily, Disp: 180 Tablet, Rfl: 0 ??? clopidogreL (PLAVIX) 75 mg tablet, Take 1 Tablet by mouth daily., Disp: 18 Tablet, Rfl: 0 ??? furosemide (LASIX) 20 mg tablet, TAKE 2 TABLETS BY MOUTH IN THE MORNING AND 1 IN THE AFTERNOON,Disp: 270 Tablet, Rfl: 0 ??? LORazepam (ATIVAN) 0.5 mg tablet, 3 Times a Day as Needed as needed for ANXIETY, Disp: , Rfl: ??? losartan (COZAAR) 100 mg tablet, Take 1 Tablet by mouth daily., Disp: 30 Tablet, Rfl: 5 Past Medical History: Diagnosis Date ??? Abnormal stress test reversible anteroseptal defect, with equivocal ST changes ??? Breathlessness on exertion ??? Chest pressure on exertion ??? Diverticulosis ??? HLD (hyperlipidemia) ??? HLD (hyperlipidemia) ??? Hypertension ??? ABDOULAYE (obstructive sleep apnea) ??? Post concussive syndrome poor memory ??? Seizure disorder (HCC-CMS) (HCC) ??? Trigeminal neuralgia No family history on [...] and Family: Not on file ??? Attends Quaker Services: Not on file ??? Active Member of Clubs or Organizations: Not on file ??? Attends Club or Organization Meetings: Not on file ??? Marital Status: Not on file I have reviewed current problem list and current medications. ROS: ROS See above. Reviewed medications and she and I agree on list. Objective: Examination: Vitals: BP 98/62 (BP Cuff Location: Left arm, BP Patient Position: Sitting, BP Cuff Sizes: Adult, large) Pulse 63 Ht 153 cm (60.24) Wt 81.5 kg (179 lb 9.6 oz) SpO2 97% BMI 34.80 kg/m?? Body mass index is 34.8 kg/m??. Physical Exam Bright affect. Gait is normal Normal upper body strength Stories are tangential, no change. She does seem to loose her place in what she is talking about but is easily redirected. 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 ?? Multiple thyroid nodules, the least measuring up to 3 cm in diameter. Complete evaluation by thyroid ultrasound recommended on a non-urgent outpatient basis Assessment & Plan: 1. 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 (HCC-CMS) (HCC) subtle differences in mood, are there. reviewed value of meds at cutting risk. discussed to act quickly if any stroke-like events in future 2. Arteriosclerotic cardiovascular disease 3. Essential (primary) hypertension tolerating meds. continue 4. Hypercholesterolemia 5. ABDOULAYE (obstructive sleep apnea) 6. Balance problem cane and walker needed. is hesitant to use in public 7. Thyroid nodule US THYROID/NECK set up US to determine if biopsy indicated or not. NOt sure this relates to vague swallowing issue 8. Other congestive heart failure (HCC) 9. Traumatic brain injury with loss of consciousness, sequela (HCC-CMS) (HCC) past history, with this compounding things. discussed need for simplification- will be moving to one floor apartment, with fewer obstacles 60 min spent in discussion and counseling Otis Gee MD documented in this encounter Plan of Treatment Upcoming Encounters Date Type Department Care Team (Late st Contact Info) Description 05/19/2024 11:00 EST Office Visit [facility] Medicine [facility] [address], [address] [place] [address] Dane Rick MD [address] [facility] [address] [place] [address] documented as of this encounter Results * US THYROID/NECK (04/14/2021 14:51 EST) Anatomical Region Laterality Modality Neck Ultrasound 04/14/2021 19:2 2 EST Impressions 04/14/2021 19:22 EST Multinodular thyroid essentially unchanged compared to the previous ultrasound. Continued imaging surveillance is recommended. Narrative 04/14/2021 19:22 EST INDICATION: thyroid nodules seen on ct scan at [facility]. COMPARISON: Thyroid ultrasound 09/03/2020. TECHNIQUE: Sonographic [...] thyroid nodules seen on ct scan at [facility]. COMPARISON: Thyroid ultrasound 09/03/2020. TECHNIQUE: Sonographic [...] imaging surveillance is recommended. Otis Gee MD [facility] US ORDERABLES documented in this encounter Visit Diagnoses Diagnosis 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 (HCC-CMS)- Primary Arteriosclerotic cardiovascular disease Unspecified cardiovascular disease Essential (primary) hypertension Unspecified essential hypertension Hypercholesterolemia Pure hypercholesterolemia ABDOULAYE (obstructive sleep apnea) Obstructive sleep apnea (adult) (pediatric) Balance problem Other symptoms involving nervous and musculoskeletal systems Thyroid nodule Nontoxic uninodular goiter Other congestive heart failure (HCC-CMS) Congestive heart failure, unspecified Traumatic brain injury with loss of consciousness, sequela (HCC-CMS) Thyroid nodule Nontoxic uninodular goiter documented in this encounter Discontinued Medications Medication Sig Discontinue Reason Start Date End Da te LORazepam (ATIVAN) 0.5 mg tablet One every 8 hrs prn- max of two in 24 hours. 03/04/2020 04/05/2021 documented as of this encounter Care Teams Hydroponics Worker Relationship Specialty Start Date End Date Otis Gee MD PCP - General 01/14/10 08/08/22 documented as of this encounter
--- OUTSIDE RECORDS SUMMARY | 2024-02-08 01:12 | XMS_ITS | Encounter Summary ---
Author Organization [facility] Address [address] [place] [address] Care Team Providers Care Health Care Analyst Name Role Phone Otis eGe MD Primary Care Provider Elisabet Mathews RN Unavailable [phone] Reason for Visit * Reason Onset Date Comments Appointment Related 05/31/2021 Encounter Details Date Type Department Care Team ([facility] Contact Info) Description 05/31/2021 Telephone [facility] Adult Neurology - [facility] [address] [place], [place] [id number] Janell Jj, TECH[employer]ICAL SALES REPRESENTATIVES [address] [place] [address] [address] [place] [address] Appointment Related Social History Tobacco [...] encounter Miscellaneous Notes * Telephone Encounter - Lupe Craig MA - 05/31/2021 1022 EST Called pt and schedule dfu visit with Анна, 06/23/21 1600 documented in this encounter Plan of Treatment Upcoming Encounters Date Type Department Care Team (Late st Contact Info) Description 05/19/2024 11:00 EST Office Visit [facility] Family Medicine [address], [address] [place] [address] Dane Rick MD [address] [place] [address] [address] [place] [address] documented as of this encounter Visit Diagnoses Not on filedocumented in this encounter Care Teams Health Care Analyst Relationship Specialty Start Date End Date Otis Gee MD PCP - General 01/14/10 08/08/22 Elisabet Aponte RN [address] [place] [address],[facility] [address] [place] [address] Nutritionists 06/29/21 04/09/22 documented as of this encounter
--- OUTSIDE RECORDS SUMMARY | 2024-02-08 01:12 | XMS_ITS | Encounter Summary ---
Author Organization [facility] Address [address] [place] [address] Care Team Providers Care Toe Puncher Name Role Phone Otis Gee MD Primary Care Provider Unava ilable Reason for Visit * Reason Onset Date Comments Appointment Related 06/22/2021 Encounter Details Date Type Department Care Team ([facility] st Contact Info) Description 06/22/2021 Telephone [facility] Neurology - [address] [id number] Janell Jj, GUILLE [address] [place] [address] [address] [place] [phone] Appointment Related Social History Tobacco Use Types [...] encounter Miscellaneous Notes * Telephone Encounter - Nuria Wallace - 06/22/2021 1316 EDT Radha rescheduled 06/23/21 FUR ONSITE with Janell Baca to 07/28/21 at 4:00 pm. 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 documented in this encounter Plan of Treatment Upcoming Encounters Date Type Department Care Team (Late st Contact Info) Description 05/19/2024 11:00 EST Office Visit [facility] Family Medicine [address], [address] [place], [place] [address] Dane Rick MD [address] [place] [address] [address] [place] [address] documented as of this encounter Visit Diagnoses Not on filedocumented in this encounter Care Teams Toe Puncher Relationship Specialty Start Date End Date Otis Gee MD PCP - General 01/14/10 08/08/22 documented as of this encounter
--- OUTSIDE RECORDS SUMMARY | 2024-02-08 01:12 | XMS_ITS | Encounter Summary ---
Author Organization [facility] Address [address] [place] [address] Care Team Providers Care Nonprofit Director Name Role Phone Otis Gee MD Primary Care Provider Elisabet Mathews RN Unavailable [phone] Reason for Visit * Reason Onset Date Comments Other Medications Refill 07/27/2021 Encounter Details Date Type Department Care Team ([facility] st Contact Info) Description 07/13/2021 Refill [facility] Medicine [facility] [address], [facility] [address] [place] [address] Otis Gee MD Other; Medications Refill Social History Tobacco Use Types [...] once daily 90 Tablet 3 07/13/2021 09/15/2021 documented in this encounter Miscellaneous Notes * Telephone Encounter - Karla Mcrae - 07/27/2021 0854 EDT Patient called checking on status. She has not picked up from pharmacy. She was not aware it had been called in. She will call pharmacy to see if they still have ready for her or put back on the shelf. * Telephone Encounter - Carmen Benz RN - 07/13/2021 1648 EDT Surescripts requesting refill on lipitor 40 mg Last filled 06/21/2021 for 90 tabs Dosage/directions correct HANNA 05/02/2021 NOV none Last lipid profile 03/20/2021 documented in this encounter Plan of Treatment Upcoming Encounters Date Type Department Care Team (Late st Contact Info) Description 05/19/2024 11:00 EST Office Visit [facility] Family Medicine [address], [address] [place], [place] [phone] Dane Rick MD [address] [facility] [address] [place] [address] documented as of this encounter Visit Diagnoses Not on filedocumented in this encounter Discontinued Medications Medication Sig Discontinue Reason Start Date End Da te atorvastatin (LIPITOR) 40 mg tablet Take 1 Tablet by mouth daily. 06/21/2021 07/13/2021 documented as of this encounter Care Teams Nonprofit Director Relationship Specialty Start Date End Date Otis Gee MD PCP - General 01/14/10 08/08/22 Elisabet Aponte RN [address] [place] [address] [employer] Consultant 06/29/21 04/09/22 documented as of this encounter
--- OUTSIDE RECORDS SUMMARY | 2024-02-08 01:12 | XMS_ITS | Encounter Summary ---
Author Organization [facility] Address [address] [place] [address] Care Team Providers Care Review Consultant Name Role Phone Otis Gee MD Primary Care Provider Elisabet Mathews RN Unavailable [phone] Encounter Details Date Type Department Care Team (Late st Contact Info) Description 08/01/2021 Orders Only [facility] Radiology - Main [place] [address] [place], [place] [phone] Chico Rivera MD [address] [place] [phone] Social History Tobacco Use Types Packs/Day Years [...] Visit [facility] Family Medicine [facility] [address] [facility], [address] [place] [address] Dane Rick MD [address] [place] [address] [address] [place] [address] documented as of this encounter Visit Diagnoses Not on filedocumented in this encounter Care Teams Review Consultant Relationship Specialty Start Date End Date Otis Gee MD PCP - General 01/14/10 08/08/22 Elisabet Aponte RN [address] [facility] [place] [address] Material Control Supervisor 06/29/21 04/09/22 documented as of this encounter
--- OUTSIDE RECORDS SUMMARY | 2024-02-08 01:12 | XMS_ITS | Encounter Summary ---
Author Organization [facility] Address [address] [place] [address] Care Team Providers Care Sisal Operator Name Role Phone Otis Gee MD Primary Care Provider Unava ilable Reason for Visit * Reason Comments Follow-up Encounter Details Date Type Department Care Team (Latest Contact Info) Description 05/02/2021 14:00 EST Office Visit [facility] Family Medicine [place] [address] [address] , [facility] [address] [place], [place] [address] Otis Gee MD Arteriosclerotic cardiovascular disease (Primary Dx); Stress reaction; Dizziness Social History Tobacco Use Types Packs/Day Years [...] Sign Reading Time Taken Comments Blood Pressure 142/67 05/02/2021 1411 EST Pulse 69 05/02/2021 1411 EST Temperature - - Respiratory Rate 12 05/02/2021 1411 EST Oxygen Saturation 97% 05/02/2021 1411 EST Inhaled Oxygen Concentration - - Weight 81.1 kg (178 lb 11.2 oz) 05/02/2021 1411 EST Height 152.4 cm (5') 05/02/2021 1411 EST Body Mass Index 34.9 05/02/2021 1411 EST documented in this encounter Functional Status [...] Progress Notes * Otis Gee MD - 05/02/2021 1400 EST [facility] Primary Care Subjective: Chief Complaint(s): Follow-up HPI: From phone call today: 1)Pt reports for last week she has had pain under right breast on side of chest. Pain occurs at rest. Pt is unsure if there is pain elsewhere in her chest or if there is chest pressure present. Pt has left sided head pain at baseline. Pt denies chest palpitations, SOB, vision changes. Pt had some di zziness/lightheadedness this am. ?? 2)pt reports this am feeling weird and [...] anyone so unaware of changes in speech. ?? 3)Pt just moved and thinks her med's were thrown away in the process. Pt states she needs atorvastatin, furosemide, bupropion, losartan. Pt aware insurance may not cover getting then refilled. Suha Acuna states pt is due for a refill on all 4 med's and they are in the refill process today. Pt notified. ?? Speaks of stress-- with memory issues, irritability, confabulationg, -- shallow breaths, chest tightness, and left arm will hurt, she denies any symptoms that worsen with exertion or position change. She spends most of the visit talking about how can she get on a break from the stresses of her and of their recent move from an apartment house in [place] to a new apartment this last week in [place]. She says she is compliant with all her medications and will continuous pickling line pickler the new refills today. I have reviewed patient's tobacco history: reports [...] and Family: Not on file ??? Attends Spiritism Services: Not on file ??? Active Member of Clubs or Organizations: Not on file ??? Attends Club or Organization Meetings: Not on file ??? Marital Status: Not on file I have reviewed current problem list and current medications. ROS: ROS *See above Objective: Examination: Vitals: BP (!) 142/67 (BP Cuff Location: Left arm, BP Patient Position: Sitting, BP Cuff Sizes: Adult, large) Pulse 69 Resp 12 Ht 152.4 cm (60) Wt 81.1 kg (178 lb 11.2 oz) SpO2 97% BMI 34.90 kg/m?? Body mass index is 34.9 kg/m??. Physical Exam *General: Stressed tearful woman here with her . When he says remarks which are cutting she Wells up with tears Lungs: Clear Heart: Regular rhythm and rate Chest wall slight tenderness along right side lower ribs to palpation Abdomen nontender negative HSM Data reviewed with patient*discussed her stroke and symptoms that came after that Assessment & Plan: 1. Arteriosclerotic cardiovascular disease By her symptoms does not sound cardiac related though we need to be attentive if symptoms change 2. Stress reaction Discussed ways of getting a break from her . To speak with her [id number] to have grandsons, and be with him. Sparing use of lorazepam 3. Dizziness Comes with a swimmy headed feeling when overwhelmed emotionally does not appear to be physiologic Otis Gee MD documented in this encounter Plan of Treatment Upcoming Encounters Date Type Department Care Team (Late st Contact Info) Description 05/19/2024 11:00 EST Office Visit [facility] Family Medicine [address], [address] [address] Dane Rick MD [address] [place] [address] [address] [place] [address] documented as of this encounter Visit Diagnoses Diagnosis Arteriosclerotic cardiovascular disease- Primary Unspecified cardiovascular disease Stress reaction Unspecified acute reaction to stress Dizziness Dizziness and giddiness documented in this encounter Care Teams Sisal Operator Relationship Specialty Start Date End Date Otis Gee MD PCP - General 01/14/10 08/08/22 documented as of this encounter
--- OUTSIDE RECORDS SUMMARY | 2024-02-08 01:12 | XMS_ITS | Encounter Summary ---
Author Organization [facility] Address [address] [place] [address] Care Team Providers Care Variety Saw Operator Name Role Phone Otis Gee MD Primary Care Provider Unava ilable Encounter Details Date Type Department Care Team (Latest Contact Info) Description 04/05/2021 Travel Social History Tobacco Use Types Packs/Day [...] Description 05/19/2024 11:00 EST Office Visit [address], [facility] 2 [place] [address] Dane Rick MD [address] [place] [phone] documented as of this encounter Visit Diagnoses Not on filedocumented in this encounter Care Teams Variety Saw Operator Relationship Specialty Start Date End Date Otis Gee MD PCP - General 01/14/10 08/08/22 documented as of this encounter
--- OUTSIDE RECORDS SUMMARY | 2024-02-08 01:12 | XMS_ITS | Encounter Summary ---
Author Organization [facility] Address [address] [place] [address] Care Team Providers Care Mail Service Coordinator Name Role Phone Otis Gee MD Primary Care Provider Unava ilable Reason for Visit * Reason Onset Date Comments Coordination Of Care 06/27/2021 Encounter Details Date Type Department Care Team (Late st Contact Info) Description 06/27/2021 Telephone [place] [address] [address], [facility] [address] [place], [place] [phone] Zehra Aponte RN Coordination Of Care Social History Tobacco Use [...] Telephone Encounter - Elisabet Cordova RN - 06/27/2021 1227 EDT Call to patient to f.u on meds. Will provide home visit tomorrow at 3 pm to reconcile meds. documented in this encounter Plan of Treatment Upcoming Encounters Date Type Department Care Team (Late st Contact Info) Description 05/19/2024 11:00 EST Office Visit [facility] Family Medicine [facility] [address] [facility], [address] [place] [address] Dane Rick MD [address] [place] [address] [address] [place] [address] documented as of this encounter Visit Diagnoses Not on filedocumented in this encounter Care Teams Mail Service Coordinator Relationship Specialty Start Date End Date Otis Gee MD PCP - General 01/14/10 08/08/22 documented as of this encounter
--- OUTSIDE RECORDS SUMMARY | 2024-02-08 01:12 | XMS_ITS | Encounter Summary ---
Author Organization [facility] Address [address] [place] [address] Care Team Providers Care Supervisor Silvering Department Name Role Phone Otis Gee MD Primary Care Provider Unava ilable Reason for Visit * Reason Onset Date Comments Medication Management 06/28/2021 Encounter Details Date Type Department Care Team ([facility] st Contact Info) Description 06/28/2021 Telephone [place] [address] [address], [address] [place], [place] [phone] Zehra Aponte RN Medication Management Social History Tobacco Use Types Packs/Day Years [...] Telephone Encounter - Elisabet Cordova RN - 06/28/2021 0810 EDT ACO RN contacted [facility] in [place] to confirm pt has picked up atorvastatin as filled on 06/21/21 documented in this encounter Plan of Treatment Upcoming Encounters Date Type Department Care Team (Late st Contact Info) Description 05/19/2024 11:00 EST Office Visit [facility] Family Medicine [facility] [address] [facility], [address] [place], [place] [address] Dane Rick MD [address] [facility] [address] [place] [address] documented as of this encounter Visit Diagnoses Not on filedocumented in this encounter Care Teams Supervisor Silvering Department Relationship Specialty Start Date End Date Otis Gee MD PCP - General 01/14/10 08/08/22 documented as of this encounter
--- OUTSIDE RECORDS SUMMARY | 2024-02-08 01:12 | XMS_ITS | Encounter Summary ---
Author Organization [facility] Address [address] [place] [address] Care Team Providers Care Dining Room Host Name Role Phone Otis Gee MD Primary Care Provider Elisabet Mathews RN Unavailable [phone] Reason for Visit * Reason Onset Date Comments Medications Refill 07/27/2021 Encounter Details Date Type Department Care Team ([facility] st Contact Info) Description 07/27/2021 Refill [facility] Medicine [place] [address], [facility] 2 [place], [place] [address] Otis Gee MD Medications Refill Social History [...] IN THE AFTERNOON 270 Tablet 07/27/2021 11/30/2021 buPROPion (WELLBUTRIN SR) 150 mg SR tablet Take 1 tablet by mouth twice daily 180 Tablet 07/27/2021 11/30/2021 documented in this encounter Miscellaneous Notes * Telephone Encounter - Luana Thapa MA - 07/27/2021 1613 EDT CV MEDICATION REFILL Medication: Furosemide 20mg tablets Medication, dose, directions verified: Take two tabs PO in the morning and one tab PO in the afternoon Pharmacy verified: [facility] Last office visit: 05/02/21 Next office visit: none scheduled CVPC MEDICATION REFILL Medication: Bupropion 150mg SR tablets Medication, dose, directions verified: Take one tab PO BID TE to RG - medications pended per protocol documented in this encounter Plan of Treatment Upcoming Encounters Date Type Department Care Team (Late st Contact Info) Description 05/19/2024 11:00 EST Office Visit [facility] Family Medicine [address], [facility] 2 [place], [place] [address] Dane Rick MD [address] [place] [address] [address] [place] [address] documented as of this encounter Visit Diagnoses Not on filedocumented in this encounter Discontinued Medications Medication Sig Discontinue Reason Start Date End Da te buPROPion (WELLBUTRIN SR) 150 mg SR tablet Take 1 Tablet by mouth 2 times daily. 06/21/2021 07/27/2021 furosemide (LASIX) 20 mg tablet TAKE 2 TABLETS BY MOUTH IN THE MORNING AND 1 IN THE AFTERNOON 06/21/2021 07/27/2021 documented as of this encounter Care Teams Dining Room Host Relationship Specialty Start Date End Date Otis Gee MD PCP - General 01/14/10 08/08/22 Elisabet Aponte, RN [address] [place] [address] Client Care Coordinator 06/29/21 04/09/22 documented as of this encounter
--- OUTSIDE RECORDS SUMMARY | 2024-02-08 01:12 | XMS_ITS | Encounter Summary ---
Author Organization [facility] Address [address] [place] [address] Care Team Providers Care Manager Law Name Role Phone Otis Gee MD Primary Care Provider Mark Mathews RN Unavailable [phone] Reason for Visit * Reason Onset Date Comments Medication Management 06/21/2021 Pt out of RX Encounter Details Date Type Department Care Team ([facility] st Contact Info) Description 06/21/2021 Telephone [place] [address], [facility] [address] [place] [address] Otis Gee MD Medication Management (Pt out of RX) Social History Tobacco Use Types Packs/Day Years [...] Tablet by mouth daily. 90 Tablet 06/21/2021 07/13/2021 buPROPion (WELLBUTRIN SR) 150 mg SR tablet Take 1 Tablet by mouth 2 times daily. 180 Tablet 06/21/2021 07/27/2021 furosemide (LASIX) 20 mg tablet TAKE 2 TABLETS BY MOUTH IN THE MORNING AND 1 IN THE AFTERNOON 270 Tablet 06/21/2021 07/27/2021 losartan (COZAAR) 100 mg tablet Take 1 Tablet by mouth daily. 90 Tablet 06/21/2021 09/16/2021 documented in this encounter Miscellaneous Notes * Addendum Note - Mark Cordova RN - 07/14/2021 1150 EDTAddended by: MARK CORDOVA on: 07/14/2021 11:50 Modules accepted: Orders * Telephone Encounter - Mark Cordova RN - 07/14/2021 1147 EDT RADHA RN discontinued clopidogrel 75 mg as therapy prescribed 03/25/2021 for 18 days only. * Telephone Encounter - Radha Carmen - 07/14/2021 0971 EDT Patient called because her medications are all messed up. She is very confused about what's going on with them. She said there's a problem with: atorvastatin (LIPITOR) 40 mg tablet [[id number] She went to [facility] yesterday and they told her they just filled a 90 day prescription of that medication last month. She said she was only given a 30 day supply. I told her prescription was sent late yesterday. She would like to talk to the Nurse that helped her before but is not sure who that is.She is also wondering if she should discontinue: clopidogreL (PLAVIX) 75 mg tablet [[id number]] Please advise. * Telephone Encounter - Nupur Benson RN - 06/21/2021 1503 EDT Patient notified. She is aware to discuss with neurology. * Telephone Encounter - Otis Gee MD - 06/21/2021 1232 EDT Sent I am not sure about plavix. She sees neurology for followup in two days * Telephone Encounter - Nupur Benson RN - 06/21/2021 1142 EDT Last appt 05/02/21, no follow up scheduled. I tabbed her meds x 90 days as requested. TC- should she still be taking plavix? It was last sent on 03/25/21 for 18 tabs only. She should have run out before now. If so, need to tab and send. Also has aspirin on her list. * Telephone Encounter - Cathie Coombs - 06/21/2021 1115 EDT Pt needs refill of Losartan. Pt is out. Pt states that her RX's are messed up. Pt needs them for 90 days supply. [facility] documented in this encounter Plan of Treatment Upcoming Encounters Date Type Department Care Team (Late st Contact Info) Description 05/19/2024 11:00 EST Office Visit [facility] Family Medicine [facility] [address] [place] [address] Dane Rick MD [address] [facility] [address] [place] [address] documented as of this encounter Visit Diagnoses Not on filedocumented in this encounter Discontinued Medications Medication Sig Discontinue Reason Start Date End Da te buPROPion (WELLBUTRIN SR) 150 mg SR tablet Take 1 tablet by mouth twice daily Reorder 03/18/2021 06/21/2021 furosemide (LASIX) 20 mg tablet TAKE 2 TABLETS BY MOUTH IN THE MORNING AND 1 IN THE AFTERNOON Reorder 03/18/2021 06/21/2021 atorvastatin (LIPITOR) 40 mg tablet Take 1 Tablet by mouth daily. Reorder 03/25/2021 06/21/2021 losartan (COZAAR) 100 mg tablet Take 1 Tablet by mouth daily. Reorder 03/25/2021 06/21/2021 clopidogreL (PLAVIX) 75 mg tablet Take 1 Tablet by mouth daily. Therapy completed 03/25/2021 07/14/2021 documented as of this encounter Care Teams Manager Law Relationship Specialty Start Date End Date Otis Gee MD PCP - General 01/14/10 08/08/22 Mark Aponte RN [address] [facility] 2 [place] [address] Java Developer With Security Clearance 06/29/21 04/09/22 documented as of this encounter
--- OUTSIDE RECORDS SUMMARY | 2024-02-08 01:12 | XMS_ITS | Encounter Summary ---
Author Organization [facility] Address [address] [place] [address] Care Team Providers Care Check Totaler Name Role Phone Otis Gee MD Primary Care Provider Elisabet Mathews RN Unavailable [phone] Reason for Visit * Reason Onset Date Comments Medication Questions 07/27/2021 Encounter Details Date Type Department Care Team ([facility] Contact Info) Description 07/27/2021 Telephone [place] [address] , [facility] 2 [place] [address] Otis Gee MD Medication Questions Social History Tobacco Use Types [...] Telephone Encounter - Bre Day RN - 08/10/2021 1337 EDT Riana can this TE be closed at this point? * Telephone Encounter - Bre Day RN - 07/29/2021 1108 EDT Hanane Bordenian, states pt called stating she was out of med's and was confused about what she is suppose to take. Suha states that by her records the pt should not be out of any of her med's. Pt told Suha that she is out of her atorvastatin so she took 2 of her husbands losartan. 07/14 TE shows [facility] nurse is working with pt on her med's Riana-are you able to look into this? * Telephone Encounter - Nupur Benson RN - 07/28/2021 1055 EDT I called [facility]. Sotero is not working today. Dottie (their other pharmacist on staff today) did not have any notes about what her question was. Sotero will be there tomorrow. I asked Bre to call tomorrow since I am out of the office on Fridays. * Telephone Encounter - Radha Carmen - 07/27/2021 1112 EDT Sotero from [facility] pharmacy called about a medication question. documented in this encounter Plan of Treatment Upcoming Encounters Date Type Department Care Team (Late st Contact Info) Description 05/19/2024 11:00 EST Office Visit [facility] Family Medicine [address], [address] [place] [address] Dane Rick MD [address] [place] [address] [address] [place] [address] documented as of this encounter Visit Diagnoses Not on filedocumented in this encounter Care Teams Check Totaler Relationship Specialty Start Date End Date Otis Gee MD PCP - General 01/14/10 08/08/22 Elisabet Aponte RN [address] [place] [address],[facility] 2 [place] [address] Training Development Director 06/29/21 04/09/22 documented as of this encounter
--- OUTSIDE RECORDS SUMMARY | 2024-02-08 01:12 | XMS_ITS | Encounter Summary ---
Author Organization [facility] Address [address] [place] [address] Care Team Providers Care Paint Trimmer Pipe Bowls Name Role Phone Otis Gee MD Primary Care Provider Unava ilable Reason for Visit * Reason Comments Follow-up Encounter Details Date Type Department Care Team ([facility] Contact Info) Description 06/17/2021 13:45 EDT Office Visit [facility] Orthopedics & Sport Medicine [address], [address] [place], [place] [id number] Damon Francis MD [address] [facility] [address] [place] [address] Primary osteoarthritis of left knee (Primary Dx) Social History Tobacco Use Types [...] 13:49 EDT documented as of this encounter Last Filed Vital Signs Vital Sign Reading Time Taken Comments Blood Pressure - - Pulse - - Temperature 36.4 ??C (97.6 ??F) 06/17/2021 1353 EDT Respiratory Rate - - Oxygen Saturation [...] as of this encounter Progress Notes * Damon Francis MD - 06/17/2021 1345 EDTAssociated Order(s): Large Joint Injection/Arthrocentesis: L knee Post-Procedure Diagnose(s): Primary osteoarthritis of left knee PROBLEM: Left knee pain SUBJECTIVE: Kenyatta Vizcaino is a 80 y.o. female who is here today for follow up. Kenyatta presents today for a follow up of her left knee. LV was on 04/21/20 where her knee pain was evaluated. X-rays were completed showing advanced degenerative arthritis with near complete loss of the medial compartment. A steroid injection was performed. Here today for reevaluation. She does state that the steroid injection worked for quite a while. It did give good pain relief. Pain has recurred. The past medical, family and social history have been reviewed in the patient chart. ROS OBJECTIVE: Temp 36.4 ??C (97.6 ??F) On physical exam, the patient is found to be a pleasant and cooperative female. In no acute distress. Psych: She is alert and oriented x 3 with normal affect. Constitutional: She is well-developed and in no significant distress. Eyes: Sclerae clear. Resp: Breathing is regular and nonlabored without audible wheezing. Skin: warm and dry Msk: Left knee has mild effusion. No erythema. No ecchymosis. No gross instability. Flexion to beyond 90degrees but with pain at end range. ASSESSMENT: 1. Primary osteoarthritis of left knee PLAN: We discussed treatment options for her left knee. She was wondering about viscosupplementation. Given that she had a very good, long-term relief with the steroid injection I have recommended we repeat that first. If she only gets short-term relief, she could certainly consider viscosupplementation. Alternatively, patient may wish to consider joint arthroplasty if pain persist. Injection given today without difficulty. Procedure: Large Joint Injection/Arthrocentesis: L knee on 06/17/2021 13:45 Details: 22 G needle, lateral approach Medications: 6 mg betamethasone 6 mg/mL; 4 mL lidocaine (PF) 10 mg/mL (1 %) Outcome: tolerated well, no immediate complications Procedure, treatment alternatives, risks and benefits explained, specific risks discussed. Consent was given by the patient. Immediately prior to procedure a time out was called to verify the correctpatient, procedure, equipment, aircraft life support fitter and site/side marked as required. Patient was prepped and draped in the usual sterile fashion. Follow up as needed Possible repeat left knee xrays This note was prepared using voice recognition software and the EMR. There may be inadvertent errors and omissions. Damon Francis MD 06/17/2021 documented in this encounter Plan of Treatment Upcoming Encounters Date Type Department Care Team (Late st Contact Info) Description 05/19/2024 11:00 EST Office Visit [facility] Family Medicine [address], [address] [place] [address] Dane Rick MD [address] [place] [address] [address] [place] [address] documented as of this encounter Procedures Procedure Name Priority Date/Time Associated Diagnosis Comments LARGE JOINT INJECTION/ARTHROCE NTESIS Routine 06/17/2021 13:45 EDT Primary osteoarthritis of left knee documented in this encounter Results * MI ARTHROCENTESIS ASPIR&/INJ MAJOR JT/BURSA W/O US (06/17/2021 13:45 EDT) Narrative [facility]ARE - 06/17/2021 13:45 EDT Damon Francis MD ? 06/27/2021 10:26 Large Joint Injection/Arthrocentesis: L knee on 06/17/2021 13:45 Details: 22 G needle, lateral approach Medications: 6 mg betamethasone 6 mg/mL; 4 mL lidocaine (PF) 10 mg/mL (1 %) Outcome: tolerated well, no immediate complications Procedure, treatment alternatives, risks and benefits explained, specific risks discussed. Consent was given by the patient. Immediately prior to procedure a time out was called to verify the correct patient, procedure, equipment, aircraft life support fitter and site/side marked as required. Patient was prepped and draped in the usual sterile fashion. Damon Francis MD PROCEDURE/MINOR SURGICAL ORDERABLES [facility] documented in this encounter Visit Diagnoses Diagnosis Primary osteoarthritis of left knee- Primary Primary localized osteoarthrosis, lower leg documented in this encounter Administered Medications Inactive Administered Medications - up to 3 most recent administrations Medication Order MAR Action Action Date Dose Rate Site betamethasone (CELESTONE SOLUSPAN) 6 mg/mL injection 6 mg 6 mg, intra-articular, Once PRN Procedure, 1 dose, Starting on Sun06/17/21 at 1345, Until Sun06/17/21 at 1345, Routine Given 06/17/2021 13:45 EDT 6 mg lidocaine (PF) 10 mg/mL (1 %) injection 4 mL 4 mL, other, Once PRN Procedure, 1 dose, Starting on 06/17/21 at 1345, Until 06/17/21 at 1345, Routine Given 06/17/2021 13:45 EDT 4 mL documented in this encounter Care Teams Paint Trimmer Pipe Bowls Relationship Specialty Start Date End Date Otis Gee MD PCP - General 01/14/10 08/08/22 documented as of this encounter
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
--- OUTSIDE RECORDS SUMMARY | 2024-02-08 01:13 | XMS_ITS | Encounter Summary ---
Author Organization [facility] Address [address] [place] [address] Care Team Providers Care Food Service Hotel Runner Name Role Phone Otis Gee MD Primary Care Provider Unava ilable Reason for Visit * Reason Onset Date Comments Appointment Related 09/03/2019 Encounter Details Date Type Department Care Team (Late Contact Info) Description 09/03/2019 Telephone Vascular Surgery and Endovascular Therapy - [facility] [address] [place] [address] Adriana Griffith, RN [address] [place] [address] Appointment Related Social History Tobacco Use Types [...] have Coronavirus / COVID-19? No / Unsure 08/26/2019 9:41 EDT documented as of this encounter Miscellaneous Notes * Telephone Encounter - Adriana Griffith RN - 09/03/2019 7690 EDT Message left for patient to contact us for travel and safety screening. documented in this encounter Plan of Treatment Upcoming Encounters Date Type Department Care Team ([facility] Contact Info) Description 05/19/2024 11:00 EST Office Visit [place] [address] [facility] [place] [address] Dane Rick MD [address] [facility] [address] [place] [address] documented as of this encounter Visit Diagnoses Not on filedocumented in this encounter Care Teams Food Service Hotel Runner Relationship Specialty Start Date End Date Otis Gee MD PCP - General 01/14/10 08/08/22 documented as of this encounter
--- OUTSIDE RECORDS SUMMARY | 2024-02-08 01:13 | XMS_ITS | Encounter Summary ---
Author Organization [facility] Address [address] [place] [address] Care Team Providers Care Cellular Biologist Name Role Phone Otis Gee MD Primary Care Provider Unava ilable Reason for Visit * Reason Onset Date Comments Medications Refill 10/10/2019 Encounter Details Date Type Department Care Team (Late Contact Info) Description 10/10/2019 Refill [place] [id number] [address] , [facility] [address] [place] [address] Otis Gee MD Medications Refill Social History [...] Dispensed Refills Start Date End Da te LORazepam (ATIVAN) 0.5 mg tablet TAKE 1 TABLET BY MOUTH THREE TIMES DAILY NEEDED FOR ANXIETY 30 Tab 2 10/10/2019 10/30/2019 documented in this encounter Plan of Treatment Upcoming Encounters Date Type Department Care Team (Late Contact Info) Description 05/19/2024 11:00 EST Office Visit [facility] [address], [facility] [address] [place] [address] Dane Rick MD [address] [place] [phone] documented as of this encounter Visit Diagnoses Not on filedocumented in this encounter Discontinued Medications Medication Sig Discontinue Reason Start Date End Da te LORazepam (ATIVAN) 0.5 mg tablet TAKE 1 TABLET BY MOUTH THREE TIMES DAILY NEEDED FOR ANXIETY Reorder 07/25/2019 10/10/2019 documented as of this encounter Care Teams Cellular Biologist Relationship Specialty Start Date End Date Otis Gee MD PCP - General 01/14/10 08/08/22 documented as of this encounter
--- OUTSIDE RECORDS SUMMARY | 2024-02-08 01:13 | XMS_ITS | Encounter Summary ---
Author Organization [facility] Address [address] [place] [address] Care Team Providers Care Wind Energy Engineer Name Role Phone Otis Gee MD Primary Care Provider Unava ilable Reason for Visit * Reason Comments Neck Pain Encounter Details Date Type Department Care Team ([facility] Contact Info) Description 08/05/2020 16:00 EDT Office Visit [facility] Family Medicine [place] [phone] [address] , [facility] [address] [place] [address] Otis Gee MD Goiter (Primary Dx); Fat pad; Situational stress; Vaccine refused by patient Social History Tobacco Use Types Packs/Day Years [...] Sign Reading Time Taken Comments Blood Pressure 98/68 08/05/2020 1603 EDT Pulse 68 08/05/2020 1603 EDT Temperature - - Respiratory Rate - [...] Progress Notes * Otis Gee MD - 08/05/2020 1600 EDT [facility] [place] Subjective: Chief Complaint(s): Neck Pain HPI: Her daughter in law looked at her neck and said she saw a mass. Patient thinks she can feel it. 2) mentions ongoing stress she is under. Political issues in our country really upset Her. 3) adamantly against Covid 19 vaccination. Thinks it is all a hoax, that more people of the vaccine than the illness. Says if God ziegler her , she would go and not interfere in that process. 4) dr gutierrez wants a followp- shows her letter I have reviewed patient's tobacco history: reports [...] buPROPion (WELLBUTRIN SR) 150 mg SR tablet, TAKE 1 TABLET BY MOUTH TWICE DAILY FOR 90 DAYS, Disp: , Rfl: ??? furosemide (LASIX) 20 mg tablet, TAKE 2 TABLETS BY MOUTH IN THE MORNING AND 1 TABLET IN THE AFTERNOON, Disp: , Rfl: ??? LORazepam (ATIVAN) 0.5 mg tablet, One every 8 hrs prn- max of two in 24 hours., Disp: 50 Tab, Rfl: 3 ??? losartan (COZAAR) 50 mg tablet, TAKE 1 TABLET BY MOUTH ONCE DAILY FOR 90 DAYS, Disp: , Rfl: Past Medical History: Diagnosis Date ??? Abnormal [...] file Occupational History ??? Not on file Social Needs ??? Financial resource strain: Not on file ??? Food insecurity Worry: Not on file Inability: Not on file ??? Transportation needs Medical: Not on file Non-medical: Not on file Tobacco Use ??? Smoking status: Never Smoker ??? Smokeless tobacco: Never Used Substance and Sexual Activity ??? Alcohol use: Yes Comment: occasionally ??? Drug use: No ??? Sexual activity: Not on file Lifestyle ??? Physical activity Days per week: Not on file Minutes per session: Not on file ??? Stress: Not on file Relationships ??? Social connections Talks on phone: Not on file Gets together: Not on file Attends worship service: Not on file Active member of club or organization: Not on file Attends meetings of clubs or organizations: Not on file Relationship status: Not on file ??? Intimate partner violence Fear of current or ex partner: Not on file Emotionally abused: Not on file Physically abused: Not on file Forced sexual activity: Not on file Other Topics Concern ??? Not on file Social History Narrative ??? Not on file I have reviewed current problem list and current medications. ROS: ROS See hpi Objective: Examination: Vitals: BP 98/68 (BP Cuff Location: Left arm, BP Patient Position: Sitting) Pulse 68 There is no height or weight on file to calculate BMI. Physical Exam Talkative woman, makes good eye contact. Smiles, though falls back into a sad gaze when not engaged. Neck: fleshy fat area left shouder medial to the ac joint. Not fixed. Data reviewed with patient discussion of facts of the coronavirus epidemic as we know it Assessment & Plan: 1. Goiter AMB CONS/FOLLOW UP ENT US THYROID/NECK discussed past dx, need for followup as requested by dr gutierrez. set up us, and visit 2. Fat pad reassurance, i had her feel the area, discussed that this was not lymph node. 3. Situational stress discussed her emotions, discussed lowering her focus to the things around her she can have an effect on rather than national politics 4. Vaccine refused by patient i offered my feelings as to the importance of the vaccine. i offered to look over her sources and discuss if this would be helpful to her. Otis Gee MD documented in this encounter Plan of Treatment Upcoming Encounters Date Type Department Care Team (Late st Contact Info) Description 05/19/2024 11:00 EST Office Visit [facility] [address], [facility] 2 [place], [place] [id number] Dane Rick MD [address] [place] [address] [address] [place] [phone] documented as of this encounter Visit Diagnoses Diagnosis Goiter- Primary Goiter, unspecified Fat pad Localized adiposity Situational stress Other psychological or physical stress, not elsewhere classified Vaccine refused by patient Vaccination not carried out for other reason documented in this encounter Care Teams Wind Energy Engineer Relationship Specialty Start Date End Date Otis Gee MD PCP - General 01/14/10 08/08/22 documented as of this encounter
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
--- OUTSIDE RECORDS SUMMARY | 2024-02-08 01:13 | XMS_ITS | Encounter Summary ---
Author Organization [facility] Address [address] [place] [address] Care Team Providers Care Hydroelectric Systems Technician Name Role Phone Otis Gee MD Primary Care Provider Unava ilable Reason for Visit * Reason Comments Other Encounter Details Date Type Department Care Team ([facility] Contact Info) Description 07/24/2019 9:30 EDT Telemedicine [place] [phone] [address] , [address] [place], [place] [phone] Otis Gee MD Thyroid nodule (Primary Dx); Essential (primary) hypertension; Depression with anxiety; Anxiety Social History Tobacco Use Types Packs/Day Years Used Date Smoking Tobacco: Never Smokeless Tobacco: Never Alcohol Use Standard Drinks/Week Comments Yes 0 (1 standard drink = 0.6 oz pur e alcohol) occasionally Sex and Gender Information Value Date Recorded Sex Assigned at Not on file Gender Identity Female 02/28/2019 7:38 EST Sexual Orientation Not on file documented as of this encounter Ordered Prescriptions Prescription Sig Dispensed Refills Start Date End Da te lovastatin (MEVACOR) 20 mg tablet Take 1 Tab by mouth daily for 360 days. 90 Tab 3 07/24/2019 08/17/2020 furosemide (LASIX) 20 mg tablet Take 1 Tab by mouth daily for 360 days. 90 Tab 3 07/24/2019 07/29/2019 buPROPion (WELLBUTRIN SR) 150 mg SR tabletIndications:anxiety with depression Take 1 Tab by mouth 2 times daily for 90 days. 180 Tab 3 07/24/2019 10/22/2019 losartan (COZAAR) 50 mg tablet Take 1 Tab by mouth daily for 90 days. 90 Tab 3 07/24/2019 10/22/2019 documented in this encounter Progress Notes * Otis Gee MD - 07/24/2019 3154 EDT [facility] Telephone Visit Verbal consent: The concept of ???Telemedicine?? has been described to the patient. Patient has been informed of the anticipated benefits and possible risks. Patient understands the information provided regarding telemedicine, has had the opportunity to ask questions about this information, and all questions havebeen answered to patient???s satisfaction. Patient consents for the use of telemedicine in his/her medical care and authorizes the transmission of any relevant medical information to providers and their staff involved in patient???s medical or mental health care. Verbal consent obtained by myself or auxiliary staff: yes. Subjective: Chief Complaint(s): Other HPI: 1) thyroid nodule. Do I need to worry? 2) my varicose vein is not hurting as much now. 3) concerned about virus- wants 90 days of scripts. All out of losartan. I take oc. Lorazepam and Ihad not had since May. I have reviewed patient's tobacco history: reports that she has never smoked. She has never used smokeless tobacco. I have reviewed current problem list and current medications. ROS: ROS No swallowing issues noted. No neck pain. Discussed covid 19 - and care she and are taking to not get infected Objective: Examination: Home Vitals: There were no vitals taken for this visit. Pertinent exam findings: speaking in full sentences and mood and affect appropriate Data reviewed with patient: Reviewed and/or ordered active problem list, medication list, allergies, imaging tests Assessment & Plan: Kenyatta was seen today for other. Diagnoses and all orders for this visit: Thyroid nodule Comments: will set up with dr gutierrez for a biopsy- understands delay of the pandemic Orders: - AMB CONS/FOLLOW UP ENT; Future Essential (primary) hypertension Comments: refill meds. check at the pharmacy today Depression with anxiety Comments: discussed how to deal with daily stress of pandemic Anxiety - buPROPion (WELLBUTRIN SR) 150 mg SR tablet; Take 1 Tab by mouth 2 times daily for 90 days. Other orders - losartan (COZAAR) 50 mg tablet; Take 1 Tab by mouth daily for 90 days. - furosemide (LASIX) 20 mg tablet; Take 1 Tab by mouth daily for 360 days. - lovastatin (MEVACOR) 20 mg tablet; Take 1 Tab by mouth daily for 360 days. Patient initiated phone contact with the office: yes. Patient is an established patient (parent, guardian) yes. E/M provided within previous 7 days for same medical assessment: no Anticipate E/M service within 24hrs or next available urgent appointment no. This visit was conducted by telephone. I spent a total of 25 minutes in discussion with the patientas described in the progress note. *Reminder: use telephone codes based on time 91715 (5-10mins), 58629 (11- 20mins), [id number] (21-30mins) [delete this reminder] documented in this encounter Plan of Treatment Upcoming Encounters Date Type Department Care Team (Late st Contact Info) Description 05/19/2024 11:00 EST Office Visit [address], [address] [address] Dane Rick MD [address] [place] [phone] documented as of this encounter Visit Diagnoses Diagnosis Thyroid nodule- Primary Nontoxic uninodular goiter Essential (primary) hypertension Unspecified essential hypertension Depression with anxiety Dysthymic disorder Anxiety Anxiety state, unspecified documented in this encounter Discontinued Medications Medication Sig Discontinue Reason Start Date End Da te losartan (COZAAR) 50 mg tablet TAKE 1 TABLET BY MOUTH ONCE DAILY Reorder 04/14/2019 07/24/2019 buPROPion (WELLBUTRIN SR) 150 mg SR tabletIndications:anxiet y with depression Take 1 Tab by mouth 2 times daily for 90 days. Reorder 05/06/2019 07/24/2019 furosemide (LASIX) 20 mg tablet Take 20 mg by mouth daily. Reorder 07/24/2019 lovastatin (MEVACOR) 20 mg tablet Take 20 mg by mouth daily. Reorder 07/24/2019 documented as of this encounter Care Teams Hydroelectric Systems Technician Relationship Specialty Start Date End Date Otis Gee MD PCP - General 01/14/10 08/08/22 documented as of this encounter
--- OUTSIDE RECORDS SUMMARY | 2024-02-08 01:13 | XMS_ITS | Encounter Summary ---
Author Organization [facility] Address [address] [place] [address] Care Team Providers Care Freight Rate Clerk Name Role Phone Otis Gee MD Primary Care Provider Unava ilable Encounter Details Date Type Department Care Team (Latest Contact Info) Description 08/19/2019 Travel Social History Tobacco Use Types Packs/Day [...] have Coronavirus / COVID-19? No / Unsure 08/19/2019 10:42 EDT documented as of this encounter Plan of Treatment Upcoming Encounters Date Type Department Care Team (Late st Contact Info) Description 05/19/2024 11:00 EST Office Visit [facility] Family Medicine [address], [facility] 2 [place] [address] Dane Rick MD [address] [facility] [address] [place] [phone] documented as of this encounter Visit Diagnoses Not on filedocumented in this encounter Care Teams Freight Rate Clerk Relationship Specialty Start Date End Date Otis Gee MD PCP - General 01/14/10 08/08/22 documented as of this encounter
--- OUTSIDE RECORDS SUMMARY | 2024-02-08 01:13 | XMS_ITS | Encounter Summary ---
Author Organization [facility] Address [address] [place] [address] Care Team Providers Care Supervisor Blood Name Role Phone Otis Gee MD Primary Care Provider Unava ilable Reason for Visit * Reason Comments Hospital Discharge Follow Up Experiencin g pain throughout entire left leg; wearing compression stockings Encounter Details Date Type Department Care Team (Late st Contact Info) Description 05/06/2019 16:20 EST Office Visit [facility] Family Medicine [place] [address], [address] [place] [address] Otis Gee MD Varicose veins of lower extremity, unspecified laterality, unspecified whether complicated (Primary Dx); Depression with anxiety; Anxiety Social History Tobacco [...] Sign Reading Time Taken Comments Blood Pressure 118/62 05/06/2019 1611 EST Pulse 62 05/06/2019 1611 EST Temperature - - Respiratory Rate - - Oxygen Saturation 98% 05/06/2019 1611 EST Inhaled Oxygen Concentration - - Weight 89.6 kg (197 lb 8 oz) 05/06/2019 1611 EST Height 152.4 cm (5') 05/06/2019 1611 EST Body Mass Index 38.57 05/06/2019 1611 EST documented in this encounter Ordered Prescriptions Prescription Sig Dispensed Refills Start Date End Da te LORazepam (ATIVAN) 0.5 mg tablet Take 1 Tab by mouth 3 times daily as needed for up to 30 days for Anxiety. Daily Max: 1.5 mg 30 Tab 1 05/06/2019 06/05/2019 buPROPion (WELLBUTRIN SR) 150 mg SR tabletIndications:anxiety with depression Take 1 Tab by mouth 2 times daily for 90 days. 180 Tab 05/06/2019 07/24/2019 documented in this encounter Progress Notes * Otis Gee MD - 05/06/2019 1620 EST [facility] [place] Subjective: Chief Complaint(s): Hospital Discharge Follow Up (Experiencing pain throughout entire left leg; wearing compression stockings) HPI: This patient comes in today in great distress after her ER visit. He had progressive leg pain and went to the ER to be checked for a fracture or a blood clot. She had negative xray and doppler studies but still is confused regarding the pain she is experiencing. 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 For unclear reasons she stopped her Buproprion- says maybe it did not work, or that it was not needed because she felt well.... Less stress with now on CPAP, more awake in day. However, she has taken to sleeping during the day due to all of the above and a desire just to retreat. I have reviewed patient's tobacco history: reports [...] SR) 150 mg SR tablet, Take 1 Tab by mouth 2 times daily for 90 days., Disp: 180 Tab, Rfl: 0 ??? furosemide (LASIX) 20 mg tablet, Take 20 mg by mouth daily., Disp: , Rfl: ??? LORazepam (ATIVAN) 0.5 mg tablet, Take 1 Tab by mouth 3 times daily as needed for up to 30 daysfor Anxiety. Daily Max: 1.5 mg, Disp: 30 Tab, Rfl: 1 ??? losartan (COZAAR) 50 mg tablet, TAKE 1 TABLET BY MOUTH ONCE DAILY, Disp: 90 Tab, Rfl: 3 ??? lovastatin (MEVACOR) 20 mg tablet, Take 20 mg by mouth daily., Disp: , Rfl: Past Medical History: Diagnosis [...] resource strain: Not on file ??? Food insecurity: Worry: Not on file Inability: Not on file ??? Transportation needs: Medical: Not on file Non-medical: Not on file Tobacco Use ??? Smoking status: Never Smoker ??? Smokeless tobacco: Never Used Substance and Sexual Activity ??? Alcohol use: Yes Comment: occasionally ??? Drug use: No ??? Sexual activity: Not on file Lifestyle ??? Physical activity: Days per week: Not on file Minutes per session: Not on file ??? Stress: Not on file Relationships ??? Social connections: Talks on phone: Not on file Gets together: Not on file Attends congregational service: Not on file Active member of club or organization: Not on file Attends meetings of clubs or organizations: Not on file Relationship status: Not on file ??? Intimate partner violence: Fear of current or ex partner: Not on file Emotionally abused: Not on file Physically abused: Not on file Forced sexual activity: Not on file Other Topics Concern ??? Not on file Social History Narrative ??? Not on file I have reviewed current problem list and current medications. ROS: ROS See hpi section Objective: Examination: Vitals: BP 118/62 (BP Cuff Location: Right arm, BP Patient Position: Sitting, BP Cuff Sizes: Adult, regular) Pulse 62 Ht 152.4 cm (60) Wt 89.6 kg (197 lb 8 oz) SpO2 98% BMI 38.57 kg/m?? Body mass index is 38.57 kg/m??. Physical Exam General: tearful, sad appearing. is here, supportive. MS: she shows the limited range of right shoulder still persisting 5 months post surgery Ext: stocking to knee in place. She has swollen, tender varicose vein medial aspect of calf and thigh- no cord in popliteal fossa NO edema, Range of joints is good. Data reviewed with patient er visit notes, labs, xrays Assessment & Plan: 1. Varicose veins of lower extremity, unspecified laterality, unspecified whether complicated heat to area, wear stockings, one daily [id number] if not improving, vascular referral for consideration of stripping 2. Depression with anxiety long discussion of options. She is adamant to restart Buproprion- Will see her back to reevaluate- ? move to SSRI 3. Anxiety buPROPion (WELLBUTRIN SR) 150 mg SR tablet Otis Gee MD documented in this encounter Plan of Treatment Upcoming Encounters Date Type Department Care Team (Late st Contact Info) Description 05/19/2024 11:00 EST Office Visit [facility] Family Medicine [address], [address] [place] [address] Dane Rick MD [address] [facility] [address] [place] [phone] documented as of this encounter Visit Diagnoses Diagnosis Varicose veins of lower extremity, unspecified laterality, unspecified whether complicated- Primary Depression with anxiety Dysthymic disorder Anxiety Anxiety state, unspecified documented in this encounter Discontinued Medications Medication Sig Discontinue Reason Start Date End Da te buPROPion (WELLBUTRIN SR) 150 mg SR tabletIndications:anxiety with depression Take 1 Tab by mouth 2 times daily for 90 days. 02/10/2019 05/06/2019 LORazepam (ATIVAN) 0.5 mg tablet Take 0.5 mg by mouth 3 times daily as needed. Reorder 06/08/2016 05/06/2019 documented as of this encounter Care Teams Supervisor Blood Relationship Specialty Start Date End Date Otis Gee MD PCP - General 01/14/10 08/08/22 documented as of this encounter
--- OUTSIDE RECORDS SUMMARY | 2024-02-08 01:13 | XMS_ITS | Encounter Summary ---
Author Organization [facility] Address [address] [place] [address] Care Team Providers Care Project Manager Entertainment And Media Name Role Phone Otis Gee MD Primary Care Provider Unava ilable Reason for Visit * Reason Onset Date Comments Mass 08/02/2020 Encounter Details Date Type Department Care Team ([facility] st Contact Info) Description 08/02/2020 Telephone [facility] Medicine [place] [address] [address] , [facility] [address] [place] [address] Otis Gee MD [facility] Social History Tobacco Use Types Packs/Day Years [...] Telephone Encounter - Joyce Lord LPN - 08/02/2020 1322 EDT Called and scheduled pt for 08/05/2020 at 1600. * Telephone Encounter - Otis Gee MD - 08/02/2020 1243 EDT Ov on 08/05 at 4pm to check area * Telephone Encounter - Joyce Lord LPN - 08/02/2020 1205 EDT TE to TC, recommend any labs/imaging prior to upcoming OV?? 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 She is still continuing to have p ain on the side of her head that goes to her ear documented in this encounter Plan of Treatment Upcoming Encounters Date Type Department Care Team (Late st Contact Info) Description 05/19/2024 11:00 EST Office Visit [facility] Family Medicine [address], [address] [place] [address] Dane Rick MD [address] [facility] [address] [place] [address] documented as of this encounter Visit Diagnoses Not on filedocumented in this encounter Care Teams Project Manager Entertainment And Media Relationship Specialty Start Date End Date Otis Gee MD PCP - General 01/14/10 08/08/22 documented as of this encounter
--- OUTSIDE RECORDS SUMMARY | 2024-02-08 01:13 | XMS_ITS | Encounter Summary ---
Author Organization [facility] Address [address] [place] [address] Care Team Providers Care Accounts Executive Name Role Phone Otis Gee MD Primary Care Provider Unava ilable Reason for Visit * Reason Comments Chest Pain Patient reports that chest tightness has improved somewhat Leg Pain Upper legs when she walks/moves Shortness of Breath Constipation I do and I don't; I don't know how to explain it. Foot Problem Pt reports a spot on RF. Encounter Details Date Type Department Care Team (Late st Contact Info) Description 11/21/2019 10:30 EDT Office Visit [facility] Family Medicine [facility] [address] , [address] [place] [address] Otis Gee MD ABDOULAYE (obstructive sleep apnea) (Primary Dx); Chronic idiopathic constipation; Swallowing dysfunction; Precordial pain; At risk for infection Social History Tobacco [...] Sign Reading Time Taken Comments Blood Pressure 126/64 11/21/2019 1034 EDT Pulse 58 11/21/2019 1034 EDT Temperature 36.9 ??C (98.4 ??F) 11/21/2019 1034 EDT Respiratory Rate 18 11/21/2019 1034 EDT Oxygen Saturation 97% 11/21/2019 1034 EDT Inhaled Oxygen Concentration - - Weight 91.8 kg (202 lb 6.4 oz) 11/21/2019 1034 E DT Height 152.4 cm (5') 11/21/2019 1034 EDT Body Mass Index 39.53 11/21/2019 1034 EDT documented in this encounter Functional Status [...] Progress Notes * Otis Gee MD - 11/21/2019 1030 EDT [facility] Primary Care Subjective: Chief Complaint(s): Chest Pain (Patient reports that chest tightness has improved somewhat), Leg Pain (Upper legs when she walks/moves), Shortness of Breath, Constipation (I do and I don't; I don't know how to explain it.), and Foot Problem (Pt reports a spot on RF.) HPI: Pt states she is uncomfortable in her stomach area. Pt had been having constipation and was taking Maalox for it. Pt states the constipation has passed but she doesn't feel like she is completelyemptying her bowel, now passing a little stool 4x day. Abdomin feels hard and tight and feels/looks bloated. Couple of times pt had sxs that felt like diverticulitis, felt like tooth pick in there but that has gone away. No fever. Starting 2-3 weeks ago, pt has chest tightness, no pain but discomfort and twinges in chest and back, something is cutting my air off, feel like can't breath deeply and then I go into a yawn. SXS happen often. Last night pt's heard her panting in her sleep. Pt feels like she is gaining weight, ankles have increased swelling. Pt is taking her lasix, 2 am and 1 afternoon. Pt also states she has been having difficulty swallowing and has been feeling tired. Update: lots of gas, constipation--got miralax, did help... but feels like I dont empty out..only used it for one or two days, not consistent. I do eat lots of greens.. Pains have gone away.No fever or chills noted.. I did have trouble swallowing.-- sometime in the meal I feel like it is stuck, I raise it up and then go on with the meal. No particular food group but had not paid attention. Cannot relate to stressor not No acid reflux. says it is with bread. Tells me she does not think the Pandemic is real. She thinks it is a conspiracy. She says she ignores mask rules, social distancing etc. Because of this. You know, I am a conservative I have sl. Sob like walking, maybe a jab oc.in my chest with it. This feels different. Like a limitation. Does not remember symptoms she had before her stenting in the past. Distance she can walk: about 20-30 feet, flat ground, and is then breathless. No cough, sputum production noted I have reviewed patient's tobacco history: reports [...] ??? LORazepam (ATIVAN) 0.5 mg tablet, Take one each day prn anxiety-, Disp: 90 Tab, Rfl: 3 ??? losartan (COZAAR) 50 mg tablet, TAKE 1 TABLET BY MOUTH ONCE DAILY FOR 90 DAYS, Disp: , Rfl: ??? lovastatin (MEVACOR) 20 mg tablet, Take 1 Tab by mouth daily for 360 days., Disp: 90 Tab, Rfl: 3 Past Medical [...] file Gets together: Not on file Attends jew service: Not on file Active member of [...] list and current medications. ROS: ROS See hpi- See above. Objective: Examination: Vitals: BP 126/64 (BP Cuff Location: Right arm, BP Patient Position: Sitting) Pulse 58 Temp 36.9 ??C (98.4 ??F) (Oral) Resp 18 Ht 152.4 cm (60) Wt 91.8 kg (202 lb 6.4 oz) SpO2 97% BMI 39.53 kg/m?? Body mass index is 39.53 kg/m??. Physical Exam Well seeming. No abdominal pain, neck: no masses palpated, able to swallow without difficulites. Lungs clear Heart: rrr, no murmur Ext: no edema Patient has to ask her to clarify simple details in her story frequently Data reviewed with patient -none Assessment & Plan: 1. ABODULAYE (obstructive sleep apnea) untreated. Does not want to out of suspicions she has about the sleep center! 2. Chronic idiopathic constipation will take miralax daily. 3. Swallowing dysfunction watch for breads, smaller bites now.call if recurrent. Maybe stress related> to call if recurrent 4. Precordial pain NM CARD SPECT NUCLEAR STRESS confusion historian but there is a shift in her status, and given her hx, will investigate. 5. At risk for infection long conversation about facts of the pandemic, and my fears I have for her safety. Otis Gee MD documented in this encounter Plan of Treatment Upcoming Encounters Date Type Department Care Team (Late st Contact Info) Description 05/19/2024 11:00 EST Office Visit [facility] Family Medicine [address], [address] [place] [address] Dane Rick MD [address] [place] [address] [address] [place] [address] documented as of this encounter Visit Diagnoses Diagnosis ABDOULAYE (obstructive sleep apnea)- Primary Obstructive sleep apnea (adult) (pediatric) Chronic idiopathic constipation Unspecified constipation Swallowing dysfunction Dysphagia, unspecified Precordial pain At risk for infection Other specified conditions influencing health status documented in this encounter Historical Medications * This list may reflect changes made after this encounter. Medication Sig Dispensed Refills Start Date End Date buPROPion (WELLBUTRIN SR) 150 mg SR tablet TAKE 1 TABLET BY MOUTH TWICE DAILY FOR 90 DAYS 10/30/2019 08/31/2020 losartan (COZAAR) 50 mg tablet TAKE 1 TABLET BY MOUTH ONCE DAILY FOR 90 DAYS 10/30/2019 1 furosemide (LASIX) 20 mg tablet TAKE 2 TABLETS BY MOUTH IN THE MORNING AND 1 TABLET IN THE AFTERNOON 10/30/2019 08/31/2020 added in this encounter Care Teams Accounts Executive Relationship Specialty Start Date End Date Otis Gee MD PCP - General 01/14/10 08/08/22 documented as of this encounter
--- OUTSIDE RECORDS SUMMARY | 2024-02-08 01:13 | XMS_ITS | Encounter Summary ---
Author Organization [facility] Address [address] [place] [address] Care Team Providers Care News Camera Person Name Role Phone Otis Gee MD Primary Care Provider Unava ilable Reason for Visit * Reason Onset Date Comments Bloated 11/14/2019 unable to take d eep breath Encounter Details Date Type Department Care Team ([facility] st Contact Info) Description 11/14/2019 Telephone [facility] [place] [address] [address], [facility] [address] [place], [place] [address] Otis Gee MD Bloated (unable to take deep breath) Social History Tobacco Use Types Packs/Day Years [...] Telephone Encounter - Bre Day RN - 11/14/2019 1507 EDT Pt notified per TC note. Scheduled for OV 11/19. * Telephone Encounter - Otis Gee MD - 11/14/2019 1434 EDT For the weekend, should go buy and use miralax ( glycolax)- explain it adds fluid to the stool so she will have a good bowel movement. For the other symptoms, will need an ov to go over things. In mean time can increase her lasix to 2 bid. * Telephone Encounter - Bre Day RN - 11/14/2019 1209 EDT Pt states she is uncomfortable in her [...] difficulty swallowing and has been feeling tired. * Telephone Encounter - Dottie Brooks - 11/14/2019 0943 EDT Pt calling she has been having some fullness/blotaing in her upper stomach also states she is unable to take a deep breath. reports pt was panting in her sleep last night. documented in this encounter Plan of Treatment Upcoming Encounters Date Type Department Care Team (Late st Contact Info) Description 05/19/2024 11:[address] [facility] Family Medicine [address], [address] [place] [address] Dane Rick MD [address] [place] [address] [place] [phone] documented as of this encounter Visit Diagnoses Not on filedocumented in this encounter Care Teams News Camera Person Relationship Specialty Start Date End Date Otis Gee MD PCP - General 01/14/10 08/08/22 documented as of this encounter
--- OUTSIDE RECORDS SUMMARY | 2024-02-08 01:13 | XMS_ITS | Encounter Summary ---
Author Organization [facility] Address [address] [place] [address] Care Team Providers Care Lawn Mower Name Role Phone Otis Gee MD Primary Care Provider Unava ilable Encounter Details Date Type Department Care Team (Latest Contact Info) Description 04/21/2020 Travel Social History Tobacco Use Types Packs/Day [...] have Coronavirus / COVID-19? No / Unsure 04/21/2020 15:00 EST documented as of this encounter Functional [...] No 09/04/2019 documented as of this encounter Plan of Treatment Upcoming Encounters Date Type Department Care Team (Late st Contact Info) Description 05/19/2024 11:00 EST Office Visit [facility] [address], [address] [place] [address] Dane Rick MD [address] [place] [phone] documented as of this encounter Visit Diagnoses Not on filedocumented in this encounter Care Teams Lawn Mower Relationship Specialty Start Date End Date Otis Gee MD PCP - General 01/14/10 08/08/22 documented as of this encounter
--- OUTSIDE RECORDS SUMMARY | 2024-02-08 01:13 | XMS_ITS | Encounter Summary ---
Author Organization [facility] Address [address] [place] [address] Care Team Providers Care Child And Family Services Specialist Name Role Phone Otis Gee MD Primary Care Provider Unava ilable Reason for Visit * Reason Onset Date Comments Appointment Related 09/04/2019 Encounter Details Date Type Department Care Team ([facility] Contact Info) Description 09/04/2019 Telephone V[facility] Surgery and Endovascular Therapy - [facility] [address] [place] [address] Adriana Griffith RN [address] [place] [address] Appointment Related Social History Tobacco Use Types [...] have Coronavirus / COVID-19? No / Unsure 09/04/2019 13:19 EDT documented as of this encounter Functional [...] Telephone Encounter - Adriana Griffith RN - 09/04/2019 1319 EDT Travel and safety screening completed. Patient shares she has had recent issues with constipation and has some mild abdominal pain. Denies nausea. documented in this encounter Plan of Treatment Upcoming Encounters Date Type Department Care Team (Late st Contact Info) Description 05/19/2024 11:00 EST Office Visit [facility] Family Medicine [address], [facility] 2 [place] [address] Dane Rick MD [address] [place] [address] [address] [place] [phone] documented as of this encounter Visit Diagnoses Not on filedocumented in this encounter Care Teams Child And Family Services Specialist Relationship Specialty Start Date End Date Otis Gee MD PCP - General 01/14/10 08/08/22 documented as of this encounter
--- OUTSIDE RECORDS SUMMARY | 2024-02-08 01:13 | XMS_ITS | Encounter Summary ---
Author Organization [facility] Address [address] [place] [address] Care Team Providers Care Auto Travel Counselor Name Role Phone Otis Gee MD Primary Care Provider Unava ilable Reason for Visit * Reason Onset Date Comments Medication Adherence 10/28/2019 Encounter Details Date Type Department Care Team ([facility] st Contact Info) Description 10/28/2019 Telephone [facility] - [place] [address] [address] , [facility] [address] [place], [place] [address] Nathaniel Arreaga RN Medication Adherence Social History Tobacco Use Types Packs/Day Years [...] te LORazepam (ATIVAN) 0.5 mg tablet Take one each day prn anxiety- 90 Tab 3 10/30/2019 03/04/2020 documented in this encounter Miscellaneous Notes * Telephone Encounter - Otis Gee MD - 10/30/2019 1139 EDT done * Telephone Encounter - Nathaniel Arreaga RN - 10/30/2019 1022 EDT To for refill * Telephone Encounter - Nathaniel Arreaga RN - 10/30/2019 0904 EDT Talked to T and she called the pharmacy. For patient meds to be in sync. We need to send 90 day supply of her lorazepam. [facility] last fill was 10/11/19 30 tabs. But when I look at [facility] we used to give her 40 tabs/ 30 ay supply. Sig was 1 tab 3x as needed TC I pended 90 day supply for 120. 40 tabs/ month. Please review. Not sure if you are ok prescribing 120 tabs. * Telephone Encounter - Nathaniel Arreaga RN - 10/29/2019 0943 EDT To T can you help us with this? This patient and her (will send you another Te for the ) has issues with their medications, she wants all her meds to be refilled all at the same time/ in sync as they do not want to go to [facility] often. We refilled all her meds but she still has trouble getting refills to a point that she uses her 's medications and same with the . She has some memory issues as well. I tried contacting her today and I left a message to call us back. Patient will be needing help to set up those bubble packs and I am not sure if they can do it themselves. * Telephone Encounter - Otis Gee MD - 10/28/2019 1731 EDT A great idea! Call [facility] and say that is one way we can get them all on the same time frame. Explain that the meds come in log cutter push out packets and that way they all come at the same time. ( I do not think [facility] does it so it would mean a change of pharmacies) Otherwise, you could call [facility] and say she wants her meds to be in synch, they can give her variable numbers as she is due , bringing her up to the same refill date. * Telephone Encounter - Nathaniel Arreaga RN - 10/28/2019 0325 EDT Patient called, she has issues with her refills. She wants all her refill to be at the same day so they can just go to [facility] all at once . This financial underwriter informed patient that she has all the refills,all 90 days. Patient stated that [facility] will not refill them because she is not due. I asked patient if she can give me all the medication she need refills. Patient is on the road with the driving, she does not have her meds with her, does not know her medication, mentioned that sometimes she takes her ;s prescription because she will ran out of meds and [facility] will not fill them. I was not able to reconcile the meds with the patient as she does not know what she takes. To TC. Patient seems to have issues with her meds as well as the , do you think patient willbenefit with referral to [facility] and set up bubble packs? documented in this encounter Plan of Treatment Upcoming Encounters Date Type Department Care Team (Late st Contact Info) Description 05/19/2024 11:[address] [facility] Family Medicine [address], [address] [place] [address] Dane Rick MD [address] [facility] [address] [place] [address] documented as of this encounter Visit Diagnoses Diagnosis Anxiety- Primary Anxiety state, unspecified documented in this encounter Discontinued Medications Medication Sig Discontinue Reason Start Date End Da te LORazepam (ATIVAN) 0.5 mg tablet TAKE 1 TABLET BY MOUTH THREE TIMES DAILY NEEDED FOR ANXIETY Reorder 10/10/2019 10/30/2019 documented as of this encounter Care Teams Auto Travel Counselor Relationship Specialty Start Date End Date Otis Gee MD PCP - General 01/14/10 08/08/22 documented as of this encounter
--- OUTSIDE RECORDS SUMMARY | 2024-02-08 01:13 | XMS_ITS | Encounter Summary ---
Author Organization [facility] Address [address] [place] [address] Care Team Providers Care Heel Cementer Machine Name Role Phone Otis Zuleta MD Primary Care Provider Unava ilable Reason for Visit * Reason Onset Date Comments Referral Request 06/05/2019 Other 06/05/2019 Encounter Details Date Type Department Care Team ([facility] st Contact Info) Description 06/05/2019 Telephone [place] [address] [address] , [facility] 2 [place], [place] [id number] Otis Zuleta MD Referral Request; Other Social History Tobacco Use Types Packs/Day [...] as of this encounter Miscellaneous Notes * Addendum Note - Otis Zuleta MD - 06/10/2019 1503 EDTAddended by: OTIS ZULETA on: 06/10/2019 15:03 Modules accepted: Orders * Telephone Encounter - Otis Zuleta MD - 06/10/2019 1502 EDT sent * Telephone Encounter - Sylvie Isaac - 06/09/2019 1144 EDT Referral is waiting to be scheduled from [facility]. * Telephone Encounter - Otis Zuleta MD - 06/06/2019 1221 EST Help set up * Telephone Encounter - Otis Zuleta MD - 06/06/2019 1221 EST Help set up * Telephone Encounter - Nathaniel Arreaga RN - 06/06/2019 1114 EST Talked to the patient and wants to be referred to [facility]. On the other note, wants you to know that whatever you told the on the last visit is working. stated that her is like 30 years younger and acting very perky and motivated. * Telephone Encounter - Nathaniel Arreaga RN - 06/05/2019 1631 EST talked to the patient, stated that she has 2 questions as when she received her after visit summaryshe saw problem lists and does not know half of the diagnosis/ problem listed there. This typewriter operator automatic explained to patient the diagnosis/ problem list able to understand. Second question Is patient not sure whats the plan in regards with her legs/varicose veins. Spoke with TC, stated that the plan was to refer patient to a vascular surgeon either at [facility], [facility] Will call patient tomrow. * Telephone Encounter - Otis Zuleta MD - 06/05/2019 1516 EST I cannot come to the phone. Can you triage this * Telephone Encounter - Nathaniel Arreaga RN - 06/05/2019 1404 EST To TC * Telephone Encounter - Karla Mcrae - 06/05/2019 1348 EST Patient was seen today and would like a referral for LT leg pain due to varicose pain. Additionally, she would like to discuss notes that were on her AVS as well. She would prefer to speak directly with Dr. Zuleta. documented in this encounter Plan of Treatment Upcoming Encounters Date Type Department Care Team (Late st Contact Info) Description 05/19/2024 11:00 EST Office Visit [facility] Family Medicine [address], [facility] 2 [place] [address] Dane Rick MD [address] [place] [address] 2 [place] [address] documented as of this encounter Visit Diagnoses Diagnosis Varicose veins of both lower extremities with pain- Primary Varicose veins of lower extremities with other complications documented in this encounter Care Teams Heel Cementer Machine Relationship Specialty Start Date End Date Otis Zuleta MD PCP - General 01/14/10 08/08/22 documented as of this encounter
--- OUTSIDE RECORDS SUMMARY | 2024-02-08 01:13 | XMS_ITS | Encounter Summary ---
Author Organization [facility] Address [address] [place] [address] Care Team Providers Care Alligator Hunter Name Role Phone Otis Gee MD Primary Care Provider Unava ilable Encounter Details Date Type Department Care Team (Latest Contact Info) Description 09/04/2019 Travel Social History Tobacco Use Types Packs/Day [...] Info) Description 05/19/2024 11:00 EST Office Visit [facility] [address] [facility], [address] [place] [address] Dane Rick MD [address] [facility] [address] [place] [address] documented as of this encounter Visit Diagnoses Not on filedocumented in this encounter Care Teams Alligator Hunter Relationship Specialty Start Date End Date Otis Gee MD PCP - General 01/14/10 08/08/22 documented as of this encounter
--- OUTSIDE RECORDS SUMMARY | 2024-02-08 01:13 | XMS_ITS | Encounter Summary ---
Author Organization [facility] Address [address] [place] [address] Care Team Providers Care Septic Technician Name Role Phone Otis Gee MD Primary Care Provider Unava ilable Reason for Visit * Reason Onset Date Comments Medication Problem 07/25/2019 Encounter Details Date Type Department Care Team ([facility] st Contact Info) Description 07/25/2019 Telephone [facility] Family Medicine [place] [address] [address] , [facility] [address] [place], [place] [address] Otis Gee MD Medication Problem Social History Tobacco Use Types Packs/Day [...] te furosemide (LASIX) 20 mg tablet Take 3 Tabs by mouth daily for 90 days. Take 2 tabs in the morning and 1 tab in the afternoon. 270 Tab 3 07/29/2019 10/27/2019 documented in this encounter Miscellaneous Notes * Telephone Encounter - Nathaniel Arreaga RN - 07/30/2019 0845 EDT Patient called back. Relayed message. * Telephone Encounter - Nathaniel Arreaga RN - 07/29/2019 0906 EDT Called the pharmacy patient picked up her prescription on 07/23. I informed the pharmacy to cancel the other refills for furosemide as we are sending a dose adjustment. I left message on patient voicemail that she has lorazepam refill at the pharmacy and instructed tocall us in regards with her lasix dosing. * Telephone Encounter - Roxie Henley RN - 07/28/2019 0849 EDT lm * Telephone Encounter - Otis Gee MD - 07/27/2019 1802 EDT It is fine the way she is doing with the Lasix. We need a bmp at some point- set up at [facility] in a month * Telephone Encounter - Bre Sanz LPN - 07/25/2019 0951 EDT Per medication hx: pt has been taking Furosemide 20 mg daily. She states that she normally takes 3 tabs per day to equal 60 mg daily. Spoke to ismael Jo and he stated that the last rx that filled for Furosemide was written on 03/15/18 for 20 mg, 2 tabs in the AM and 1 tab in the PM. Ryan please clarify dosing. She also states that Lorazepam rx was supposed to be sent to the pharmacy but they did not have it.According to our records, she should have one refill left of a rx that was written on 05/06/19. [facility] states that she filled this on 05/06/19 for 30 tabs. Again, spoke to ismael Jo and he stated that they do have this rx with 1 refill left. I will make pt aware of this after the above is clarified. * Telephone Encounter - Dottie Brooks - 07/25/2019 0942 EDT Pt just picked up her rx for furosemide, states she normally takes 3 pills a day, states she just picked up the medication and it was written for 1 pill day. Pt states lorazepam was supposed to be sent in as well which it was not there when she went to pick and shovel man her medication. documented in this encounter Plan of Treatment Upcoming Encounters Date Type Department Care Team (Late st Contact Info) Description 05/19/2024 11:00 EST Office Visit [facility] Family Medicine [address], [address] [place] [address] Dane Rick MD [address] [place] [address] [place] [phone] documented as of this encounter Visit Diagnoses Not on filedocumented in this encounter Discontinued Medications Medication Sig Discontinue Reason Start Date End Da te furosemide (LASIX) 20 mg tablet Take 1 Tab by mouth daily for 360 days. Reorder 07/24/2019 07/29/2019 documented as of this encounter Care Teams Septic Technician Relationship Specialty Start Date End Date Otis Gee MD PCP - General 01/14/10 08/08/22 documented as of this encounter
--- OUTSIDE RECORDS SUMMARY | 2024-02-08 01:13 | XMS_ITS | Encounter Summary ---
Author Organization [facility] Address [address] [place] [address] Care Team Providers Care Inspecting And Testing Lead Hand Name Role Phone Otis Gee MD Primary Care Provider Unava ilable Reason for Visit * Reason Onset Date Comments Results 03/08/2020 Encounter Details Date Type Department Care Team ([facility] st Contact Info) Description 03/08/2020 Telephone [facility] Family Medicine [place] [address] [address] , [facility] [address] [place] [address] Otis Gee MD Results Social History Tobacco [...] encounter Miscellaneous Notes * Telephone Encounter - Sacha Lee - 03/08/2020 1313 EST appt booked * Telephone Encounter - Roxie Henley RN - 03/08/2020 0913 EST Pt advised, she would like to come in with her in a month, will schedule * Telephone Encounter - Nupur Benson RN - 03/08/2020 0823 EST ----- Message from Otis Gee MD sent at 03/08/2020 8:02 EST ----- Call. The test for fluid overload does not show she is in such a situation. As things quiet down inher life, will see how she feels ( her was to follow up with me in a month, she may want karlee seen at the same time) documented in this encounter Plan of Treatment Upcoming Encounters Date Type Department Care Team (Late st Contact Info) Description 05/19/2024 11:00 EST Office Visit [facility] Family Medicine [address], [facility] [address] [place] [address] Dane Rick MD [address] [place] [address] [address] [place] [address] documented as of this encounter Visit Diagnoses Not on filedocumented in this encounter Care Teams Inspecting And Testing Lead Hand Relationship Specialty Start Date End Date Otis Gee MD PCP - General 01/14/10 08/08/22 documented as of this encounter
--- OUTSIDE RECORDS SUMMARY | 2024-02-08 01:13 | XMS_ITS | Encounter Summary ---
Author Organization [facility] Address [address] [place] [address] Care Team Providers Care Manager Athletics Name Role Phone Otis Gee MD Primary Care Provider Unava ilable Reason for Visit * Reason Comments Depression Did not want to fill out survey, but mood is related to pain Varicose Veins Concerned about fall ing again; compression sock options Encounter Details Date Type Department Care Team ([facility] Contact Info) Description 06/05/2019 10:20 EST Office Visit [facility] Family Medicine [address], [address] [place] [address] Otis Gee MD Depression, unspecified depression type (Primary Dx); Traumatic brain injury with loss of consciousness, sequela (HCC-CMS); Varicose veins of both lower extremities, unspecified whether complicated Social History Tobacco Use Types Packs/Day Years [...] Sign Reading Time Taken Comments Blood Pressure 118/82 06/05/2019 1026 EST Pulse 60 06/05/2019 1026 EST Temperature - - Respiratory Rate - - Oxygen Saturation - - Inhaled Oxygen Concentration - - Weight 92.4 kg (203 lb 11.2 oz) 06/05/2019 1026 EST Height 152.4 cm (5') 06/05/2019 1026 EST Body Mass Index 39.78 06/05/2019 1026 EST documented in this encounter Progress Notes * Otis Gee MD - 06/05/2019 1020 EST [facility] Primary Care Subjective: Chief Complaint(s): Depression (Did not want to fill out survey, but mood is related to pain) and Varicose Veins (Concerned about falling again; compression sock options) HPI: Di not take the medication- Why? Not sure. I have watched lots of TV and eaten.- Discouraged about slow healing of whole shoulder apparatus. To have CT to look for secondary damage. left leg. Has heavy support stocking each morning..hard to get on and off. I take the buproprion only occasionally... says she is always agitated. 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 2) legs hurt with this stocking. I got it at [facility]. It does help the pain in the veins though I have reviewed patient's tobacco history: reports [...] file Gets together: Not on file Attends mosque service: Not on file Active member of [...] and current medications. ROS: ROS See above. Objective: Examination: Vitals: BP 118/82 (BP Cuff Location: Right arm, BP Patient Position: Sitting, BP Cuff Sizes: Adult, large) Pulse 60 Ht 152.4 cm (60) Wt 92.4 kg (203 lb 11.2 oz) BMI 39.78 kg/m?? Body mass index is 39.78 kg/m??. Physical Exam Happy affect, ruthyy about why she is not taking her medication. Long conversation about her goals, her limits, depressions effect on this Stocking left leg, non tender. Does have tender varicosity on right Data reviewed with patient - read last chart note Assessment & Plan: 1. Depression, unspecified depression type counseled to take meds, and re-set her goals. will reevaluate her sucess in next month- do help set goals.. 2. Traumatic brain injury with loss of consciousness, sequela ([facility]) discussed past episode, does not think it impacts her judgement 3. Varicose veins of both lower extremities, unspecified whether complicated Otis Gee MD documented in this encounter Plan of Treatment Upcoming Encounters Date Type Department Care Team (Late st Contact Info) Description 05/19/2024 11:00 EST Office Visit [address], [facility] 2 [place] [address] Dane Rick MD [address] [place] [address] [address] [place] [address] documented as of this encounter Procedures Procedure Name Priority Date/Time Associated Diagnosis Comments CT CHEST WO CONTRAST 06/05/2019 14:07 EST documented in this encounter Results * CT CHEST WO CONTRAST (06/05/2019 14:07 EST) Anatomical Region Laterality Modality Chest Computed Tomogra phy 06/05/2019 14:0 4 EST Narrative 06/05/2019 14:07 EST ? EXAM: CAT SCAN/CHEST WITHOUT CONTRAST ? EX. D/ (1334) ? CLINICAL INFORMATION: ? A43.61XA STERNOCLAVICULAR (JOINT) ? (LIGAMENT) SPRAIN, RIGHT, INITIAL ENCOUNTER ? NON TRAUMATIC ? CHEST WITHOUT CONTRAST ??06/05/2019 1:34 PM ? Clinical History/Comments: ? A43.61XA STERNOCLAVICULAR (JOINT), (LIGAMENT) SPRAIN, RIGHT, INITIAL ? ENCOUNTER, NON TRAUMATIC ? Technique: ? Contiguous axial CT images of the sternoclavicular joints and chest ? were acquired without intravenous contrast. Multiplanar reformations ? were created. ? Comparison: ? None. ? FINDINGS: ? The alignment of the sternoclavicular joints is within normal limits ? and is symmetric. There is moderate degenerative change of the right ? sternoclavicular joint and there is mild subchondral irregularity and ? subchondral sclerosis at both sides of the joint, but slightly ? asymmetric toward the clavicular side. There is also mild asymmetric ? thickening of the right sternoclavicular joint capsule. No fracture ? is detected. The clavicles are intact. There is also mild ? degenerative change of both acromioclavicular joints and both ? glenohumeral joints. ? There is severe degenerative spondylosis of the lower cervical spine ? and mild degenerative spondylosis of the thoracic spine. ? Lower neck: Multiple thyroid nodules are present. The largest arises ? from the lower pole left thyroid lobe and measures 3.2 cm in maximal ? dimension. ? Chest wall soft tissues: No abnormalities. ? Mediastinum and faustino: No enlarged mediastinal or hilar lymph nodes. ? The distal esophagus appears mildly thickened. ? Heart and mediastinal vasculature: ??Mild calcified coronary artery ? atherosclerosis. ? Large airways: ??Moderate large airways thickening is present. ? Lungs: ??There is mild atelectasis at the lung bases. Mild mosaic ? attenuation at the lung bases, left greater than right, likely ? reflects air-trapping related to small airways disease. Concerning ? pulmonary nodule is detected ? Pleura: No abnormalities. ? Upper abdomen (limited to upper abdomen, not optimized for abdominal ? PAGE 1 ? Signed Report ? (CONTINUED) ? imaging): No abnormalities. ? IMPRESSION: ? 1. Degenerative change of the right sternoclavicular joint and slight ? asymmetric capsular thickening. Alignment within normal limits. No ? fracture. ? 2. Large airways thickening and mild mosaic attenuation throughout ? the lungs which likely reflects air-trapping related to small airways ? disease. ? 3. Thyroid nodules measuring up to 3.2 cm. This could be further ? assessed with ultrasound. ? REPORT SIGNED IN OTHER VENDOR SYSTEM 06/05/2019 ?Reported By: Rylan Thapa MD ? CC: Damon Francis MD ? Transcribed Date/Time: 06/05/2019 (5957) ? Sanitation Lead: ? Printed Date/Time: 06/05/2019 (0927) ? PAGE 2 ? Signed Report ? Procedure Note Rylan Thapa MD - 06/05/2019 EXAM: CAT SCAN/CHEST WITHOUT CONTRAST EX. D/ (1334) CLINICAL INFORMATION: A43.61XA STERNOCLAVICULAR (JOINT) (LIGAMENT) SPRAIN, RIGHT, INITIAL ENCOUNTER NON TRAUMATIC CHEST WITHOUT CONTRAST 06/05/2019 1:34 PM Clinical History/Comments: A43.61XA STERNOCLAVICULAR (JOINT), (LIGAMENT) SPRAIN, RIGHT,INITIAL ENCOUNTER, NON TRAUMATIC Technique: Contiguous axial CT images of the sternoclavicular joints and chest were acquired without intravenous contrast. Multiplanarreformations were created. Comparison: None. FINDINGS: The alignment of the sternoclavicular joints is within normallimits and is symmetric. There is moderate degenerative change of theright sternoclavicular joint and there is mild subchondral irregularityand subchondral sclerosis at both sides of the joint, but slightly asymmetric toward the clavicular side. There is also mildasymmetric thickening of the right sternoclavicular joint capsule. No fracture is detected. The clavicles are intact. There is also mild degenerative change of both acromioclavicular joints and both glenohumeral joints. There is severe degenerative spondylosis of the lower cervicalspine and mild degenerative spondylosis of the thoracic spine. Lower neck: Multiple thyroid nodules are present. The largestarises from the lower pole left thyroid lobe and measures 3.2 cm inmaximal dimension. Chest wall soft tissues: No abnormalities. Mediastinum and faustino: No enlarged mediastinal or hilar lymph nodes. The distal esophagus appears mildly thickened. Heart and mediastinal vasculature: Mild calcified coronary artery atherosclerosis. Large airways: Moderate large airways thickening is present. Lungs: There is mild atelectasis at the lung bases. Mild mosaic attenuation at the lung bases, left greater than right, likely reflects air-trapping related to small airways disease. Concerning pulmonary nodule is detected Pleura: No abnormalities. Upper abdomen (limited to upper abdomen, not optimized forabdominal PAGE 1 Signed Report (CONTINUED) imaging): No abnormalities. IMPRESSION: 1. Degenerative change of the right sternoclavicular joint andslight asymmetric capsular thickening. Alignment within normal limits. No fracture. 2. Large airways thickening and mild mosaic attenuation throughout the lungs which likely reflects air-trapping related to smallairways disease. 3. Thyroid nodules measuring up to 3.2 cm. This could be further assessed with ultrasound. REPORT SIGNED IN OTHER VENDOR SYSTEM 06/05/2019 Reported By: Rylan Thapa MD CC: Damon Francis MD Transcribed Date/Time: 06/05/2019 (0661) Sanitation Lead: Printed Date/Time: 06/05/2019 (1991) PAGE 2 Signed Report Damon Francis MD IMG CT ORDERABLE S documented in this encounter Visit Diagnoses Diagnosis Depression, unspecified depression type- Primary Traumatic brain injury with loss of consciousness, sequela ([facility]) Varicose veins of both lower extremities, unspecified whether complicated documented in this encounter Care Teams Manager Athletics Relationship Specialty Start Date End Date Otis Gee MD PCP - General 01/14/10 08/08/22 documented as of this encounter
--- OUTSIDE RECORDS SUMMARY | 2024-02-08 01:13 | XMS_ITS | Encounter Summary ---
Author Organization [facility] Address [address] [place] [address] Care Team Providers Care Employment Attorney Name Role Phone Otis Gee MD Primary Care Provider Elisabet Mathews RN Unavailable [phone] Vicky Chamberlain Unavailable [phone] Dane Rick MD Primary Care Provider [phone] Leticia Lieberman Unavailable Mendoza Guzmán MD Unavailable [phone] Encounter Details Date Type Department Care Team (Late Contact Info) Description 08/28/2019 Results Only Imaging [facility] Radiology Results [address] [place] [address] Mendoza Guzmán MD [address] [place] [address] [address] Social History Tobacco Use Types Packs/Day Years [...] 9:41 EDT documented as of this encounter Plan of Treatment Upcoming Encounters Date Type Department Care Team (Late st Contact Info) Description 05/19/2024 11:00 EST Office Visit [facility] [address], [address] [place] [address] Dane Rick MD [address] [facility] [address] [place] [phone] documented as of this encounter Procedures Procedure Name Priority Date/Time Associated Diagnosis Comments US THYROID/NECK 08/28/2019 17:30 EDT documented in this encounter Results * US THYROID/NECK (08/28/2019 17:30 EDT) Anatomical Region Laterality Modality Neck Ultrasound 08/28/2019 17:2 7 EDT Narrative 08/28/2019 17:30 EDT ? EXAM: ULTRASOUND/THYROID ?EX. D/ (1618) ? CLINICAL INFORMATION: ? E04.1 THYROID NODULE ? F/U THYROID NODULE(S) SEEN ON CT ? THYROID ? Signs and Symptoms/Comments: ??E04.1 THYROID NODULE , F/U THYROID ? NODULE(S) SEEN ON CT ? Comparison: CT chest on 06/05/2019. ? Technique: Thyroid ultrasound was performed with color Doppler ? imaging. ? FINDINGS: ? Right Thyroid Lobe: Heterogeneous in echotexture (measuring 4.7 x 2.0 ? x 2.4 cm; volume 10.7 cc). Multiple solid hypoechoic right thyroid ? nodules are present. A solid hypoechoic nodule in the upper lobe ? measures 0.9 cm. A solid hypoechoic nodule in the mid lobe measures ? 1.6 cm. ? Left Thyroid Lobe: Heterogeneous in echotexture (measuring 6.1 x 2.5 ? x 3.3 cm; volume 23.4 cc). Multiple solid hypoechoic left thyroid ? nodules are present. The dominant solid hypoechoic nodule in the ? inferior lobe measures 3.1 x 2.7 x 3.1 cm, and appears to correspond ? to the finding in question on the comparison CT of June 2019. ? Additional solid hypoechoic nodules measure 1.5 cm in the upper lobe ? and 0.9 cm in the mid lobe. ? Thyroid Isthmus: Heterogeneous in echotexture (measuring 0.5 cm in ? thickness). A solid hypoechoic nodule in the left isthmus measures ? 1.1 cm. ? IMPRESSION: ? Enlarged multinodular thyroid. Dominant 3.1 cm solid hypoechoic left ? thyroid nodule appears to correspond to the finding in question on ? recent CT. TI-RADS 4: Moderately suspicious. ? Recommendation: Per ACR guidelines, ultrasound-guided biopsy of the ? dominant left thyroid nodule is recommended. Assuming biopsy of the ? dominant nodule demonstrates benign results, the remaining nodules ? should be followed in one year. ? This report has been flagged for a noncritical result requiring ? PAGE 1 ? Signed Report ? (CONTINUED) ? follow-up on the ZIPDIGS PACS findings application, to be tracked by ? the [facility] tracking system. ? REPORT SIGNED IN OTHER VENDOR SYSTEM 08/28/2019 ?Reported By: Vlad Boyd MD ? CC: Mendoza Guzmán ? Transcribed Date/Time: 08/28/2019 (173) ? Thermostatic Controls Supervisor: ? Printed Date/Time: 08/28/2019 (173) ? PAGE 2 ? Signed Report ? Procedure Note Vlad Boyd MD - 08/28/2019 EXAM: ULTRASOUND/THYROID EX. D/ (3058) CLINICAL INFORMATION: E04.1 THYROID NODULE F/U THYROID NODULE(S) SEEN ON CT THYROID Signs and Symptoms/Comments: E04.1 THYROID NODULE , F/U THYROID NODULE(S) SEEN ON CT Comparison: CT chest on 06/05/2019. Technique: Thyroid ultrasound was performed with color Doppler imaging. FINDINGS: Right Thyroid Lobe: Heterogeneous in echotexture (measuring 4.7 x2.0 x 2.4 cm; volume 10.7 cc). Multiple solid hypoechoic right thyroid nodules are present. A solid hypoechoic nodule in the upper lobe measures 0.9 cm. A solid hypoechoic nodule in the mid lobe measures 1.6 cm. Left Thyroid Lobe: Heterogeneous in echotexture (measuring 6.1 x2.5 x 3.3 cm; volume 23.4 cc). Multiple solid hypoechoic left thyroid nodules are present. The dominant solid hypoechoic nodule in the inferior lobe measures 3.1 x 2.7 x 3.1 cm, and appears tocorrespond to the finding in question on the comparison CT of June 2019. Additional solid hypoechoic nodules measure 1.5 cm in the upperlobe and 0.9 cm in the mid lobe. Thyroid Isthmus: Heterogeneous in echotexture (measuring 0.5 cm in thickness). A solid hypoechoic nodule in the left isthmus measures 1.1 cm. IMPRESSION: Enlarged multinodular thyroid. Dominant 3.1 cm solid hypoechoicleft thyroid nodule appears to correspond to the finding in question on recent CT. TI-RADS 4: Moderately suspicious. Recommendation: Per ACR guidelines, ultrasound-guided biopsy of the dominant left thyroid nodule is recommended. Assuming biopsy of the dominant nodule demonstrates benign results, the remaining nodules should be followed in one year. This report has been flagged for a noncritical result requiring PAGE 1 Signed Report (CONTINUED) follow-up on the ZIPDIGS PACS findings application, to be tracked by the [facility] tracking system. REPORT SIGNED IN OTHER VENDOR SYSTEM 08/28/2019 Reported By: Vlad Boyd MD CC: Mendoza Guzmán MD Transcribed Date/Time: 08/28/2019 (173) Thermostatic Controls Supervisor: Printed Date/Time: 08/28/2019 (1730) PAGE 2 Signed Report Mendoza Guzmán MD IMG US ORDERABLES documented in this encounter Visit Diagnoses Not on filedocumented in this encounter Additional Health Concerns Infection Onset Date Last Indicated Resolved Time R/O COVID-19 08/13/2023 08/13/2023 08/13/2023 20:0 7 EDT documented as of this encounter Care Teams Employment Attorney Relationship Specialty Start Date End Date Otis Gee MD PCP - General 01/14/10 08/08/22 Dane Rick MD [address] [place] [address] [address] [place] [address] PCP - General Family Medicine - Primary Care 08/09/22 Elisabet Aponte RN [address] [facility] [place] [address] Chief Credit Officer 06/29/21 04/09/22 Vicky Chamberlain, FOOD SALES CLERK [address] [facility] [address] [place], [place] [id number] Chief Credit Officer 06/12/22 01/22/24 Leticia Lieberman [address] [place] [phone] General Surgery 04/03/23 Mendoza Guzmán MD [address] [place] [address] [address] [place] [address] Otolaryngology 04/03/23 documented as of this encounter
--- OUTSIDE RECORDS SUMMARY | 2024-02-08 01:13 | XMS_ITS | Encounter Summary ---
Author Organization [facility] Address [address] [place] [address] Care Team Providers Care Motion Graphics Designer Name Role Phone Otis Gee MD Primary Care Provider Unava ilable Reason for Visit * Reason Comments Post-OP Follow Up Encounter Details Date Type Department Care Team ([facility] Contact Info) Description 09/18/2019 10:00 EDT Telemedicine [facility] Orthopedics & Sport Medicine [address] [place] [address] Damon Francis MD [address] [facility] [address] [place] [address] Traumatic complete tear of right [...] Progress Notes * Damon Francis MD - 09/18/2019 1000 EDT [facility] Telephone Visit Verbal consent: The concept of [...] or auxiliary staff: yes. Subjective: Chief Complaint(s): Post-OP Follow Up of the Right Shoulder HPI: 01/14/19 right shoulder arthroscopy with RTC repair and biceps tenotomy Feels that she is progressing. Sometimes has more pain but thinks it might be that she overdoes it.Likes to work hard. Still feels limited but has come a long way. Neck can still hurt. Just barely drove a car for first time last week. Was a bit frightened. Has driven a couple of times since. She does get occasional radiating pain down her arm. I have reviewed patient's tobacco history: reports that she has never smoked. She has never used smokeless tobacco. I have reviewed current problem list and current medications. ROS: Review of Systems Constitutional: Negative for chills and fever. Respiratory: Negative for cough and shortness of breath. Gastrointestinal: Negative for diarrhea, nausea and vomiting. Musculoskeletal: Positive for joint pain and neck pain. Objective: Examination: Home Vitals: There were no vitals taken for this visit. Pertinent exam findings: speaking in full sentences, no audible wheeze and mood and affect appropriate Assessment & Plan: 1. Traumatic complete tear of right rotator cuff, subsequent encounter Status post operative treatment with repair and biceps tenotomy. Some persistent limitations but patient satisfied with outcome. 2. Sternoclavicular (joint) (ligament) sprain, right, initial encounter The symptoms seem to be resolving. Only mild discomfort. Follow-up as needed Patient initiated phone contact with the office: yes. Patient is an established patient (parent, guardian) yes. E/M provided within previous 7 days for same medical assessment: no Anticipate E/M service within 24hrs or next available urgent appointment no. This visit was conducted by telephone. A total of 13 minutes was spent on this encounter on the dayof this encounter. documented in this encounter Plan of Treatment Upcoming Encounters Date Type Department Care Team (Late st Contact Info) Description 05/19/2024 11:00 EST Office Visit [facility] - [facility] Family Medicine - [address], [place] [address] [place] [phone] Dane Rick MD [address] [place] [address] [place] [phone] documented as of this encounter Visit Diagnoses Diagnosis Traumatic complete tear of right rotator cuff, subsequent encounter- Primary Sternoclavicular (joint) (ligament) sprain, right, initial encounter documented in this encounter Historical Medications * This list may reflect changes made after this encounter. Medication Sig Dispensed Refills Start Date End Date LORazepam (ATIVAN) 0.5 mg tablet TAKE 1 TABLET BY MOUTH THREE TIMES DAILY NEEDED FOR ANXIETY 07/25/2019 10/10/2019 added in this encounter Care Teams Motion Graphics Designer Relationship Specialty Start Date End Date Otis Gee MD PCP - General 01/14/10 08/08/22 documented as of this encounter
--- OUTSIDE RECORDS SUMMARY | 2024-02-08 01:13 | XMS_ITS | Encounter Summary ---
Author Organization [facility] Address [address] [place] [address] Care Team Providers Care Gas Line Servicer Name Role Phone Otis Gee MD Primary Care Provider Unava ilable Reason for Visit * Reason Onset Date Comments Appointment Related 08/19/2019 Encounter Details Date Type Department Care Team (Late Contact Info) Description 08/19/2019 Telephone [facility] ENT - [place] [address] [place] [address] Mendoza Guzmán MD [address] [facility] [address] [place] [address] Appointment Related Social History Tobacco Use Types [...] 10:42 EDT documented as of this encounter Miscellaneous Notes * Telephone Encounter - Nedra Felton - 08/19/2019 1316 EDT Left message for return call to schedule a 1 week FNA follow up. Pending return call to schedule documented in this encounter Plan of Treatment Upcoming Encounters Date Type Department Care Team (Late Contact Info) Description 05/19/2024 11:00 EST Office Visit [facility] [address] [facility], [facility] [address] [place] [address] Dane Rick MD [address] [place] [phone] documented as of this encounter Visit Diagnoses Not on filedocumented in this encounter Care Teams Gas Line Servicer Relationship Specialty Start Date End Date Otis Gee MD PCP - General 01/14/10 08/08/22 documented as of this encounter
--- OUTSIDE RECORDS SUMMARY | 2024-02-08 01:13 | XMS_ITS | Encounter Summary ---
Author Organization [facility] Address [address] [place] [address] Care Team Providers Care Lap Grinder Name Role Phone Otis Gee MD Primary Care Provider Unava ilable Reason for Visit * Reason Comments Follow-up Encounter Details Date Type Department Care Team ([facility] st Contact Info) Description 07/15/2019 10:[address] [facility]opedics [facility] Sport Medicine [address] [place] [address] Damon Francis MD [address] [facility] [address] [place] [address] Sternoclavicular (joint) (ligament) sprain, right, initial encounter (Primary Dx); Traumatic complete tear of right rotator cuff, subsequent encounter Social History Tobacco Use Types Packs/Day [...] Progress Notes * Damon Francis MD - 07/15/2019 1000 EDT [facility] Telephone Visit Verbal consent: The concept of ???Telemedicine?? has been described to the patient.? Patient has been informed of the anticipated benefits and possible risks.? Patient understands the information provided regardingtelemedicine, has had the opportunity to ask questions about this information, and all questions have been answered to patient???s satisfaction. Patient consents for the use of telemedicine in his/her medical care and authorizes the transmission of any relevant medical information to providers and their staff involved in patient???s medical or mental health care. This visit was conducted via telephone. Chief Complaint(s): Follow up right shoulder HPI: This visit is being conducted via telemedicine due to the current Coronavirus pandemic. Mrs. Vizcaino had right shoulder arthroscopy and rotator cuff repair on January 16, 2019. She participated in physical therapy until June 10 when sessions were canceled due to the pandemic. At herlast visit with me, she was concerned about some medial clavicular pain. She states this was the initial site of her pain before she saw Dr. Gee. I did send her for a CT scan to evaluate that area. She still has some catching pain in that area. However, overall she does feel that she is gettingbetter. She has been doing some home exercises. She still has some weakness of the arm. She occasionally wakes up with pain, especially if she sleeps on her right side. She thinks that using her cellphone more frequently may be contributing to some discomfort as well. I have reviewed patient's tobacco history: reports that she has never smoked. She has never used smokeless tobacco. I have reviewed current problem list and current medications. ROS: Review of Systems Constitutional: Negative for fever. Respiratory: Negative for cough and shortness of breath. Gastrointestinal: Negative. Objective: Examination: Home Vitals: There were no vitals taken for this visit. Pertinent exam findings patient can observe: None Data reviewed with patient: Independent visualization of image, tracing, or specimen itself. Patient had a CT scan to evaluate the sternoclavicular joints. Radiology report notes capsular thickening and some degenerative changes of the right sternoclavicular joint. Incidental note is made of mild irregularity in the lung gutierrez as well as a thyroid nodules. Assessment & Plan: 1. 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 2. Traumatic complete tear of right rotator cuff, subsequent encounter 6-month status post rotator cuff repair. Patient reports gradual improvement. 1. Patient to monitor symptoms in her right sternoclavicular joint. I explained that the symptoms could improve independently of any further treatment. If symptoms persist, consideration could be given to a sternoclavicular joint injection. I did explain this does carry some risk and will need to be considered carefully. I would be happy to discuss with her if the symptoms persist. 2. Gradual improvement in the right rotator cuff. Continue with a home exercise program. Will consider referral back to physical therapy if symptoms persist past the epidemic. 3. Advised patient about the thyroid nodules. Told her I would be sure to make Dr. Gee aware ofthe findings on the CT scan and will defer to Dr. Gee further evaluation and treatment as necessary. 4. Follow-up phone call in 2 months. Patient initiated phone contact with the office Yes, Is an established patient (parent, guardian) Yes, E/M provided within previous 7 days for same Assessment No, Anticipate E/M service within 24hrs or next available urgent appointment No, Time spent in medical discussion 11-20. Total time spent: 17 minutes Please include V3 modifier for Medicaid patients. * Janice Hamm - 07/15/2019 1000 EDT Pt scheduled for telemed 09/16 documented in this encounter Plan of Treatment Upcoming Encounters Date Type Department Care Team (Late st Contact Info) Description 05/19/2024 11:00 EST Office Visit [facility] - [facility] Family Medicine [address], [facility] [address] [place] [address] Dane Rick MD [address] [place] [address] [address] [place] [phone] documented as of this encounter Visit Diagnoses Diagnosis Sternoclavicular (joint) (ligament) sprain, right, initial encounter- Primary Traumatic complete tear of right rotator cuff, subsequent encounter documented in this encounter Care Teams Lap Grinder Relationship Specialty Start Date End Date Otis Gee MD PCP - General 01/14/10 08/08/22 documented as of this encounter
--- OUTSIDE RECORDS SUMMARY | 2024-02-08 01:13 | XMS_ITS | Encounter Summary ---
Author Organization [facility] Address [address] [place] [address] Care Team Providers Care Orchestra Leader Name Role Phone Otis Gee MD Primary Care Provider Unava ilable Reason for Referral * Radiology Services (Routine/Next Available) - New Request Specialty Diagnoses / Procedures Referred By Franky ferreira Referred To Contact Diagnoses Thyroid nodule Procedures US THYROID/NECK Mendoza Guzmán MD [address] [place] [phone] Referral ID Status Reason Start Date Expiration Date V isits Requested Visits Authorized [id number] New Request 09/29/2020 1 1 Reason for Visit * Reason Comments Follow-up * Consult (Routine) - Order Cancelled Specialty Diagnoses / Procedures Referred By Franky ferreira Referred To Contact Otolaryngology Diagnoses Thyroid nodule Otis Gee MD [facility] [address] [place] [id number] Referral ID Status Reason Start Date Expiration Date Visits Requested Visits Authorized [id number] Order Cancelled Specialty Services Required 09/04/2020 1 1 Encounter Details Date Type Department Care Team ([facility] st Contact Info) Description 09/29/2020 9:50 EDT Office Visit [facility] - [facility] E[facility] [address] [place] [address] Mendoza Guzmán MD [address] [place] [phone] Thyroid nodule (Primary Dx) Social History [...] have Coronavirus / COVID-19? No / Unsure 09/29/2020 9:49 EDT documented as of this encounter Functional [...] Progress Notes * Mendoza Guzmán MD - 09/29/2020 0943 EDT REASON FOR VISIT: Follow-up thyroid nodule SUBJECTIVE: The patient recently noticed left supraclavicular swelling and underwent ultrasound evaluation of the neck with showed multinodular thyroid including a dominant 3 cm solid hypoechoic leftinferior thyroid nodule category 4 but not significantly changed compared to 1 year ago. OBJECTIVE: Ultrasounds were read and reviewed. TSH was normal in 2019. Ultrasound-guided fine-needle aspirate biopsy performed on 08/19/2019 showed both left and right thyroid nodules to be benign. The patient however does not remember ever having a biopsy done. ASSESSMENT: Stable not enlarging thyroid nodules. Unclear if biopsies have been previously done. PLAN: We will check with Dr. Gee. We will schedule follow-up repeat ultrasound in 1 year or as needed. Consider repeat biopsy if necessary. documented in this encounter Plan of Treatment Upcoming Encounters Date Type Department Care Team (Late st Contact Info) Description 05/19/2024 11:00 EST Office Visit [facility] [address] [facility], [place] [address] [place], [place] [phone] Dane Rick MD [address] [facility] [address] [place] [phone] documented as of this encounter Results * US THYROID/NECK (09/13/2021 [...] Diagnosis Thyroid nodule- Primary Nontoxic uninodular goiter Thyroid nodule Nontoxic uninodular goiter documented in this encounter Care Teams Orchestra Leader Relationship Specialty Start Date End Date Otis Gee MD PCP - General 01/14/10 08/08/22 documented as of this encounter
--- OUTSIDE RECORDS SUMMARY | 2024-02-08 01:13 | XMS_ITS | Encounter Summary ---
Author Organization [facility] Address [address] [place] [address] Care Team Providers Care Ore Washer Name Role Phone Otis Gee MD Primary Care Provider Unava ilable Encounter Details Date Type Department Care Team (Latest Contact Info) Description 08/26/2019 Travel Social History Tobacco Use Types Packs/Day [...] Info) Description 05/19/2024 11:00 EST Office Visit [facility] Family Medicine [address], [facility] [address] [place] [address] Dane Rick MD [address] [facility] [address] [place] [phone] documented as of this encounter Visit Diagnoses Not on filedocumented in this encounter Care Teams Ore Washer Relationship Specialty Start Date End Date Otis Gee MD PCP - General 01/14/10 08/08/22 documented as of this encounter
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
--- OUTSIDE RECORDS SUMMARY | 2024-02-08 01:13 | XMS_ITS | Encounter Summary ---
Author Organization [facility] Address [address] [place] [address] Care Team Providers Care Contract Graphic Designer Name Role Phone Otis Gee MD Primary Care Provider Unava ilable Reason for Visit * Reason Comments New Patient Visit vv BLE W/pain * Consult (Routine/Next Available) - Order Cancelled Specialty Diagnoses / Procedures [facility] Referred To Contact Vascular Surgery Diagnoses Varicose veins of both lower extremities with pain Otis Gee MD [facility] V[facility] Surgery [address] [place] [id number] Referral ID Status Reason Start Date Expiration Date Visits Requested Visits Authorized [id number] Order Cancelled Specialty Services Required 06/06/2019 1 1 Encounter Details Date Type Department Care Team ([facility] st Contact Info) Description 09/04/2019 15:00 EDT Initial consult Vascular Surgery and Endovascular Therapy - [address] [address] Cathie Shah MD [address] [place] [address], [address] [place] [id number] Leg pain, anterior, left (Primary Dx) Social History Tobacco Use Types [...] 13:19 EDT documented as of this encounter Last Filed Vital Signs Vital Sign Reading Time Taken Comments Blood Pressure 142/78 09/04/2019 1453 EDT Pulse 64 09/04/2019 1453 EDT Temperature - - Respiratory Rate 16 09/04/2019 1453 EDT Oxygen Saturation 98% 09/04/2019 1453 EDT Inhaled Oxygen Concentration - - Weight 92.1 kg (203 lb) 09/04/2019 1453 EDT Height 152.4 cm (5') 09/04/2019 1453 EDT Body Mass Index 39.65 09/04/2019 1453 EDT documented in this encounter Functional Status [...] as of this encounter Progress Notes * Cathie Shah MD - 09/04/2019 1500 EDT Subjective: Kenyatta Vizcaino is a 78 y.o. female who was referred by Dr. Gee for evaluation of left legpain and swelling. She reports terrible pain in the left lower extremity. She says it extends from the foot up the anterior leg into the upper thigh. She reports that it usually occurs all the time and she cannot always identify anything that relieves it. She does note, though, that it is increasedwhen she starts to go to walk and puts pressure on it. Again she states that it hurts terribly. She also notices bilateral lower extremity swelling and does wear compression stockings. She does not think that this helps the discomfort in the left anterior leg. She states that her feet will swell also. She does have a few small reticular varicosities in the right meyer and over the right knee but nonereally bulging on the left. She denies any history of DVT or phlebitis or any family history of venous problems. She has had a prior left ankle surgery in the 1960s and she says a bone graft was used. She recently had some right rotator cuff surgery and had been following with physical therapy prior to the COVMD restrictions. Past Medical History: Diagnosis Date ??? Abnormal stress test reversible anteroseptal defect, with equivocal ST changes ??? Breathlessness on exertion ??? Chest pressure on exertion ??? Diverticulosis ??? HLD (hyperlipidemia) ??? HLD (hyperlipidemia) ??? Hypertension ??? ABDOULAYE (obstructive sleep apnea) ??? Post concussive syndrome poor memory ??? Seizure disorder (HCC-CMS) ??? Trigeminal neuralgia Patient Active Problem List Diagnosis ??? Arteriosclerotic cardiovascular disease ??? Balance problem ??? Chronic post-traumatic headache, not intractable ??? Depression with anxiety ??? Diverticular disease of colon ??? Essential (primary) hypertension ??? Hypercholesterolemia ??? Injury of head ??? Obesity ??? ABDOULAYE (obstructive sleep apnea) ??? 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 Trigeminal neuralgia ??? Unspecified rotator cuff tear or rupture of right shoulder, not specified as traumatic ??? Vertigo Past Surgical History: Procedure Laterality Date ??? BLEPHAROPLASTY 01/15/08 bilateral brow lift ??? ECTROPION REPAIR 01/09/08 bilateral lower lids ??? ROTATOR CUFF REPAIR Right 01/14/2019 No family history on file. Social History Socioeconomic History ??? Marital status: Spouse name: None ??? Number of children: None ??? Years of education: None ??? Highest education level: None Occupational History ??? None Social Needs ??? Financial resource strain: None ??? Food insecurity: Worry: None Inability: None ??? Transportation needs: Medical: None Non-medical: None Tobacco Use ??? Smoking status: Never Smoker ??? Smokeless tobacco: Never Used Substance and Sexual Activity ??? Alcohol use: Yes Comment: occasionally ??? Drug use: No ??? Sexual activity: None Lifestyle ??? Physical activity: Days per week: None Minutes per session: None ??? Stress: None Relationships ??? Social connections: Talks on phone: None Gets together: None Attends mosque service: None Active member of club or organization: None Attends meetings of clubs or organizations: None Relationship status: None ??? Intimate partner violence: Fear of current or ex partner: None Emotionally abused: None Physically abused: None Forced sexual activity: None Other Topics Concern ??? None Social History Narrative ??? None Current Outpatient Medications: aspirin 81 mg EC tablet buPROPion (WELLBUTRIN SR) 150 mg SR tablet furosemide (LASIX) 20 mg tablet losartan (COZAAR) 50 mg tablet lovastatin (MEVACOR) 20 mg tablet No current facility-administered medications for this visit. Prior to encounter medications: Current Outpatient Medications on File Prior to Visit Medication Sig Dispense Refill ??? aspirin 81 mg EC tablet Take 81 mg by mouth every 48 hours. ??? buPROPion (WELLBUTRIN SR) 150 mg SR tablet Take 1 Tab by mouth 2 times daily for 90 days. 180 Tab 3 ??? furosemide (LASIX) 20 mg tablet Take 3 Tabs by mouth daily for 90 days. Take 2 tabs in the morning and 1 tab in the afternoon. 270 Tab 3 ??? losartan (COZAAR) 50 mg tablet Take 1 Tab by mouth daily for 90 days. 90 Tab 3 ??? lovastatin (MEVACOR) 20 mg tablet Take 1 Tab by mouth daily for 360 days. 90 Tab 3 No current facility-administered medications on file prior to visit. Allergies Allergen Reactions ??? Amoxicillin-Pot Clavulanate Rash ??? Flagyl [Metronidazole] ??? Metoprolol Other (See Comments) heart failure? Penicillins ??? Zithromax [Azithromycin] Review of Systems A comprehensive review of systems was negative except for: leg pain and swelilng, constipation Objective: Vitals: 09/04/19 1453 BP: (!) 142/78 BP Cuff Location: Left arm BP Patient Position: Sitting Pulse: 64 Resp: 16 SpO2: 98% Weight: 92.1 kg (203 lb) Height: 152.4 cm (60) General: alert, cooperative and no distress Neck: no bruits Extremities: edema bilaterlly; no varicosities on the left; few small reticular veins on right. Tender to palpation left anterior leg from distal meyer to thigh Pulses: 2+ and symmetric Skin: No skin changes consistent with chronic venous insufficiency. Imaging:Duplex of Left lower extremity was performed and revealed no evidence of reflux in the deepor superficial veins and no evidence of thrombosis. Assessment: left leg edema and pain; pain is described as terrible and worse when she takes a step and starts walking-; tender to palpation from anterior distal meyer to anterior thigh - no varicose veins on left; normal US. Plan: We talked about her ultrasound and discomfort. I do not think her pain is related to a vascular problem. She has a normal pedal pulses and a normal venous ultrasound. It is possible that she has lymphedema is responsible for her lower extremity swelling, but her left leg pain extends all the way upinto her thigh and is worse when she walks and not affected by compression. I asked her to return to Dr. Gee to talk about the left leg pain. Regarding her edema, I did offer her referral to the lymphedema clinic for consideration of manual lymphatic drainage and compression. Because of the distance, she does not want to do that at this point. She also has established care with a physical therapist for her shoulder, and I encouraged her to talk to them about whether or not they could address her lower extremity edema as well. No indication for scheduled vascular surgery follow-up, will recommend as needed. Re: her constipation- new, 5 days without BM; no h/o prior colonoscopy; recommend contact PCP. documented in this encounter Plan of Treatment Upcoming Encounters Date Type Department Care Team (Late st Contact Info) Description 05/19/2024 11:00 EST Office Visit [facility] Family Medicine [address], [email or web address] [address] [place] [address] Dane Rick MD [address] [place] [address] [address] [place] [address] documented as of this encounter Visit Diagnoses Diagnosis Leg pain, anterior, left- Primary documented in this encounter Care Teams Contract Graphic Designer Relationship Specialty Start Date End Date Otis Gee MD PCP - General 01/14/10 08/08/22 documented as of this encounter
--- OUTSIDE RECORDS SUMMARY | 2024-02-08 01:13 | XMS_ITS | Encounter Summary ---
Author Organization [facility] Address [address] [place] [address] Care Team Providers Care Manager Salt Name Role Phone Otis Gee MD Primary Care Provider Unava ilable Reason for Visit * Reason Comments Other Encounter Details Date Type Department Care Team ([facility] Contact Info) Description 08/29/2020 Refill [place] [address], [address] [place] [address] Otis Gee MD Other Social History Tobacco [...] Take 1 tablet by mouth twice daily for 90 days 180 Tab 08/31/2020 12/09/2020 furosemide (LASIX) 20 mg tablet TAKE 2 TABLETS BY MOUTH IN THE MORNING AND 1 TABLET IN THE AFTERNOON 270 Tab 08/31/2020 12/09/2020 losartan (COZAAR) 50 mg tablet Take 1 tablet by mouth once daily for 90 days 90 Tab 08/31/2020 12/09/2020 documented in this encounter Miscellaneous Notes * Telephone Encounter - Carmen Christensen RN - 09/09/2020 1705 EDT Sent letter * Telephone Encounter - Bre Day RN - 09/03/2020 1500 EDT LM for the pt to call back. * Telephone Encounter - Otis Gee MD - 08/31/2020 1144 EDT Signed, please tell her of labs to get drawn * Telephone Encounter - Joyce Lord LPN - 08/31/2020 1011 EDT [facility] MEDICATION REFILL Medication: losartan, lasix, bupropion Medication, dose, directions verified: yes Pharmacy verified: yes Last office visit: 08/05/2020 Next office visit: none Last CMP drawn on 04/15/2019, Ca+ or 11.4 but otherwise WNL. Pt due for labs, orders pended, Te TC, please sign labs if agreeable, will advise pt luz for labs once signed. documented in this encounter Plan of Treatment Upcoming Encounters Date Type Department Care Team (Late st Contact Info) Description 05/19/2024 11:00 EST Office Visit [facility] Family Medicine [address], [address] [place] [id number] Dane Rick MD [address] [place] [address] [address] [place] [address] Scheduled Orders Name Type Priority Associated Diagnoses Orde r Schedule COMPREHENSIVE METABOLIC PANEL (CMP) Lab Routine Essential hypertension Ordered: 08/31/2020 LIPID PROFILE (INCLUDES CHOLESTEROL, TRIGLYCERIDES, HDL, LDL) Lab Routine Hypercholesterolemia Ordered: 08/31/2020 URINE [id number] RATIO (ACR) Lab Routine Essential hypertension Ordered: 08/31/2020 documented as of this encounter Visit Diagnoses Diagnosis Essential hypertension- Primary Unspecified essential hypertension Hypercholesterolemia Pure hypercholesterolemia documented in this encounter Discontinued Medications Medication Sig Discontinue Reason Start Date End Da te furosemide (LASIX) 20 mg tablet TAKE 2 TABLETS BY MOUTH IN THE MORNING AND 1 TABLET IN THE AFTERNOON 10/30/2019 08/31/2020 losartan (COZAAR) 50 mg tablet TAKE 1 TABLET BY MOUTH ONCE DAILY FOR 90 DAYS 10/30/2019 08/31/2020 buPROPion (WELLBUTRIN SR) 150 mg SR tablet TAKE 1 TABLET BY MOUTH TWICE DAILY FOR 90 DAYS 10/30/2019 08/31/2020 documented as of this encounter Care Teams Manager Salt Relationship Specialty Start Date End Date Otis Gee MD PCP - General 01/14/10 08/08/22 documented as of this encounter
--- OUTSIDE RECORDS SUMMARY | 2024-02-08 01:13 | XMS_ITS | Encounter Summary ---
Author Organization [facility] Address [address] [place] [address] Care Team Providers Care Drag Out Worker Name Role Phone Otis Gee MD Primary Care Provider Unava ilable Reason for Referral * Consult (Routine) - Closed Specialty Diagnoses / Procedures [facility] Referred To Contact Family Medicine Diagnoses Needs assistance with community resources Otis Gee MD [facility] [address], [address] [place] [address] Referral ID Status Reason Start Date Expiration Date V isits Requested Visits Authorized [id number] Closed Specialty Services Required 10/30/2019 1 1 Question Answer What areas would you like the CHT to focus on? Security Business Analyst Security Business Analyst: Community pharmacy assistance Encounter Details Date Type Department Care Team ([facility] st Contact Info) Description 10/30/[address] [facility] Family Medicine [facility] [address], [facility] [address] [place] [address] Cht Sewing Machine Operator Floorperson, [facility] Family Needs assistance with community resources (Primary Dx) Social History Tobacco Use Types [...] as of this encounter Progress Notes * Savana Cramer - 10/30/2019 0945 EDT Worked with pt on her med's being filled and picked up at same time as husbands. CHT called [facility] and asked how to make this work. Pt and needed to have a few med's made to 90 daysrefill and they will be put on auto fill by pharmacy. CHT spoke with the Nurse about changing the med's. PCP nurse will change the med's and send back to pharmacy and the pt will be bale to lemon picker her and husbands med's at same time and not be waiting for them. CHT asked pt about bubble packs. Pt was interested but wants to wait to see how [facility] works out and then if later she wants to switch she will call CHT. documented in this encounter Plan of Treatment Upcoming Encounters Date Type Department Care Team (Late st Contact Info) Description 05/19/2024 11:00 EST Office Visit [facility] Family Medicine [address], [facility] [address] [place] [address] Dane Rick MD [address] [place] [address] [address] [place] [address] Scheduled Referrals Name Type Priority Associated Diagnoses Orde r Schedule AMB CONS/FOLLOW UP COMMUNITY HEALTH TEAM Outpatient Referral Routine Needs assistance with community resources Ordered: 10/30/2019 documented as of this encounter Visit Diagnoses Diagnosis Needs assistance with community resources- Primary documented in this encounter Care Teams Drag Out Worker Relationship Specialty Start Date End Date Otis Gee MD PCP - General 01/14/10 08/08/22 documented as of this encounter
--- OUTSIDE RECORDS SUMMARY | 2024-02-08 01:13 | XMS_ITS | Encounter Summary ---
Author Organization [facility] Address [address] [place] [address] Care Team Providers Care Iron Molder Helper Name Role Phone Otis Gee MD Primary Care Provider Elisabet Mathews RN Unavailable [phone] Vicky Chamberlain Unavailable [phone] Dane Rick MD Primary Care Provider [phone] Leticia Lieberman Unavailable Mendoza Ac MD Unavailable [phone] Encounter Details Date Type Department Care Team (Late st Contact Info) Description 09/03/2020 Results Only Imaging [facility] Radiology Results [address] [place], [place] [phone] Otis Gee MD Social History Tobacco Use Types Packs/Day [...] 11:00 EST Office Visit [facility] Medicine [address], [address] [place] [address] Dane Rick MD [address] [facility] [address] [place] [address] documented as of this encounter Procedures Procedure Name Priority Date/Time Associated Diagnosis Comments US THYROID/NECK 09/03/2020 15:48 EDT documented in this encounter Results * US THYROID/NECK (09/03/2020 15:48 EDT) Anatomical Region Laterality Modality Neck Ultrasound 09/03/2020 15:4 5 EDT Narrative 09/03/2020 15:48 EDT ? EXAM: ULTRASOUND/THYROID ?EX. D/ (1525) ? CLINICAL INFORMATION: ? E04.9 GOITER ? DISCUSSED PAST DX, NEED FOR FOLLOW UP ? REQUESTED BY DR. AC ? F/U MULTINODULAR GOITER ? THYROID ? Signs and Symptoms/Comments: ??E04.9 GOITER, DISCUSSED PAST DX, NEED ? FOR FOLLOW UP REQUESTED BY DR. AC, F/U MULTINODULAR GOITER ? Comparison: Ultrasound thyroid on 08/28/2019. ? Technique: Thyroid ultrasound was performed with color Doppler ? imaging. ? FINDINGS: ? Right Thyroid Lobe: Heterogeneous in echotexture (measuring 2.6 x 1.3 ? x 1.4 cm). An ovoid solid hypoechoic nodule in the superior lobe ? measures 1.0 cm, essentially unchanged from one year prior. A ? lobulated solid hypoechoic nodule in the mid lobe measures 1.3 cm, ? perhaps mildly decreased in size from 1.6 cm one year prior. ? Left Thyroid Lobe: Heterogeneous in echotexture (measuring 6.4 x 2.5 ? x 2.9 cm). The dominant solid hypoechoic nodule in the inferior lobe ? measures 3.2 cm, essentially unchanged from one year prior. ? Additional solid hypoechoic nodules measure 1.3 cm in the superior ? lobe and 1.1 cm in the anterior mid lobe, similar to one year prior. ? Thyroid Isthmus: Heterogeneous in echotexture (measuring 0.6 cm in ? thickness). A solid hypoechoic nodule in the left isthmus measures ? 1.2 cm, essentially unchanged compared to one year prior. ? IMPRESSION: ? 1. ??Multinodular thyroid, including a dominant 3 cm solid hypoechoic ? inferior left thyroid nodule. TI-RADS 4: Moderately suspicious. Per ? ACR guidelines, biopsy of the dominant nodule should be considered if ? not already performed. ? 2. ??Overall, thyroid nodules have not significantly enlarged compared ? to one year prior, which is somewhat reassuring. Surveillance ? ultrasound recommended in one year. ? This report has been flagged for a noncritical result requiring ? PAGE 1 ? Signed Report ? (CONTINUED) ? follow-up on the [employer] findings application, to be tracked by ? the [facility] tracking system. ? REPORT SIGNED IN OTHER VENDOR SYSTEM 09/03/2020 ?Reported By: Vlad Boyd MD ? CC: ? Transcribed Date/Time: 09/03/2020 (1548) ? Library Attendant: ? Printed Date/Time: 09/03/2020 (1548) ? PAGE 2 ? Signed Report ? Procedure Note Vlad Boyd MD - 09/03/2020 EXAM: ULTRASOUND/THYROID EX. D/ (1525) CLINICAL INFORMATION: E04.9 GOITER DISCUSSED PAST DX, NEED FOR FOLLOW UP REQUESTED BY DR. AC F/U MULTINODULAR GOITER THYROID Signs and Symptoms/Comments: E04.9 GOITER, DISCUSSED PAST DX, NEED FOR FOLLOW UP REQUESTED BY DR. AC F/U MULTINODULAR GOITER Comparison: Ultrasound thyroid on 08/28/2019. Technique: Thyroid ultrasound was performed with color Doppler imaging. FINDINGS: Right Thyroid Lobe: Heterogeneous in echotexture (measuring 2.6 x1.3 x 1.4 cm). An ovoid solid hypoechoic nodule in the superior lobe measures 1.0 cm, essentially unchanged from one year prior. A lobulated solid hypoechoic nodule in the mid lobe measures 1.3 cm, perhaps mildly decreased in size from 1.6 cm one year prior. Left Thyroid Lobe: Heterogeneous in echotexture (measuring 6.4 x2.5 x 2.9 cm). The dominant solid hypoechoic nodule in the inferiorlobe measures 3.2 cm, essentially unchanged from one year prior. Additional solid hypoechoic nodules measure 1.3 cm in the superior lobe and 1.1 cm in the anterior mid lobe, similar to one yearprior. Thyroid Isthmus: Heterogeneous in echotexture (measuring 0.6 cm in thickness). A solid hypoechoic nodule in the left isthmus measures 1.2 cm, essentially unchanged compared to one year prior. IMPRESSION: 1. Multinodular thyroid, including a dominant 3 cm solidhypoechoic inferior left thyroid nodule. TI-RADS 4: Moderately suspicious. Per ACR guidelines, biopsy of the dominant nodule should be consideredif not already performed. 2. Overall, thyroid nodules have not significantly enlargedcompared to one year prior, which is somewhat reassuring. Surveillance ultrasound recommended in one year. This report has been flagged for a noncritical result requiring PAGE 1 Signed Report (CONTINUED) follow-up on the [employer] PACS findings application, to be tracked by the [facility] tracking system. REPORT SIGNED IN OTHER VENDOR SYSTEM 09/03/2020 Reported By: Vlad Boyd MD CC: Transcribed Date/Time: 09/03/2020 (1194) Library Attendant: Printed Date/Time: 09/03/2020 (2640) PAGE 2 Signed Report Otis Gee MD IMG US ORDERABLES documented in this encounter Visit Diagnoses Not on filedocumented in this encounter Additional Health Concerns Infection Onset Date Last Indicated Resolved Time R/O COVID-19 08/13/2023 08/13/2023 08/13/2023 20:0 7 EDT documented as of this encounter Care Teams Iron Molder Helper Relationship Specialty Start Date End Date Otis Gee MD PCP - General 01/14/10 08/08/22 Dane Rick MD [address] [place] [phone] PCP - General Family Medicine - Primary Care 08/09/22 Elisabet Aponte RN [address] [place] [address],[facility] [address] [place] [address] Supervisor [employer] Department 06/29/21 04/09/22 Vicky Chamberlain LICSW [address] [place] [address],[facility] [address] [place], [place] [phone] Supervisor [employer] Department 06/12/22 01/22/24 Leticia Lieberman [address] [place] [phone] General Surgery 04/03/23 Mendoza Ac MD [address] [place] [phone] Otolaryngology 04/03/23 documented as of this encounter
--- OUTSIDE RECORDS SUMMARY | 2024-02-08 01:13 | XMS_ITS | Encounter Summary ---
Author Organization [facility] Address [address] [place] [address] Care Team Providers Care Wildlife Ecology Professor Name Role Phone Otis Gee MD Primary Care Provider Unava ilable Reason for Visit * Reason Onset Date Comments Medication Management 05/16/2019 Encounter Details Date Type Department Care Team ([facility] Contact Info) Description 05/16/2019 Telephone [facility] [address], [address] [place] [address] Toyin Bender RN Medication Management Social History Tobacco Use [...] encounter Miscellaneous Notes * Telephone Encounter - Toyin Bender RN - 05/16/2019 9947 EST Received a call from [facility], stating that Natalie was at the pharmacy looking for her prescription for Motrin. Notified pharmacy that our office did not recently prescribe that, but she had anappt with Ortho today. Advised that the script may be coming from Ortho office documented in this encounter Plan of Treatment Upcoming Encounters Date Type Department Care Team ([facility] Contact Info) Description 05/19/2024 11:00 EST Office Visit [facility] [address], [address] [place] [address] Dane Rick MD [address] [place] [address] [address] [place] [address] documented as of this encounter Visit Diagnoses Not on filedocumented in this encounter Care Teams Wildlife Ecology Professor Relationship Specialty Start Date End Date Otis Gee MD PCP - General 01/14/10 08/08/22 documented as of this encounter
--- OUTSIDE RECORDS SUMMARY | 2024-02-08 01:13 | XMS_ITS | Encounter Summary ---
Author Organization [facility] Address [address] [place] [address] Care Team Providers Care Manager Product Design Name Role Phone Otis Gee MD Primary Care Provider Unava ilable Reason for Visit * Reason Onset Date Comments Results 09/04/2020 Encounter Details Date Type Department Care Team ([facility] st Contact Info) Description 09/04/2020 Telephone [facility] [place] [address] [address] , [facility] [address] [place], [place] [address] Otis Gee MD Results Social History Tobacco [...] encounter Miscellaneous Notes * Telephone Encounter - Gabby Cormier RN - 09/06/2020 0917 EDT Kenyatta notified and agrees with the referral. * Telephone Encounter - Otis Gee MD - 09/04/2020 0914 EDT Call her. There is an area in the thyroid seen on US that needs to be biopsied. I have referred her to dr Guzmán in ENT documented in this encounter Plan of Treatment Upcoming Encounters Date Type Department Care Team (Late st Contact Info) Description 05/19/2024 11:00 EST Office Visit [facility] Family Medicine [address], [facility] [address] [place] [address] Dane Rick MD [address] [facility] [address] [place] [address] documented as of this encounter Visit Diagnoses Diagnosis Thyroid nodule- Primary Nontoxic uninodular goiter documented in this encounter Care Teams Manager Product Design Relationship Specialty Start Date End Date Otis Gee MD PCP - General 01/14/10 08/08/22 documented as of this encounter
--- OUTSIDE RECORDS SUMMARY | 2024-02-08 01:13 | XMS_ITS | Encounter Summary ---
Author Organization [facility] Address [address] [place] [address] Care Team Providers Care Fuel Cell Technician Name Role Phone Otis Gee MD Primary Care Provider Unava ilable Reason for Visit * Reason Onset Date Comments Pharmacy 11/06/2019 Encounter Details Date Type Department Care Team ([facility] st Contact Info) Description 11/06/2019 Telephone [facility] [place] [address] [address] , [facility] 2 [place], [place] [phone] Otis Gee MD Pharmacy Social History Tobacco Use Types Packs/Day Years [...] Telephone Encounter - Otis Gee MD - 11/07/2019 0738 EDT Yes. Will leave it as is * Telephone Encounter - Nathaniel Arreaga RN - 11/06/2019 1451 EDT Talked to the pharmacy. Patient picked up all her medications including the lorazepam. Patient was dispense 90 tabs.1 tab a day for 90 days, as per patient she does not take it daily only as needed but there are times she takes it 2 times a day, she is just concern she will ran out soon. To TC I think we can leave the script for now as it is, as patient is not really consistent with her lorazepam refill she was prescribed 30 pills for 10 day supply but it lasted atleast a month. Patient already picked up the meds. We can update the new script on the next refill if she falls short ( make it short it just technicality), I updated the direction on the med notes so we have guidance on the next fill. Is that ok? * Telephone Encounter - Bre Day RN - 11/06/2019 1139 EDT Spoke to Philip Sinclair, she states pts last RX of Lorazepam was written with a sig of 1 tab 3x daily as needed. Yamel states pt is planning to pear picker the med today as currently written for 1x daily dosing. If TC chooses to switch to 3x daily prn dosing should have start date of 12/04/19. According to [facility], last 3x this rx was sent in it was for 1 tab 3x daily as needed for anxiety for 10 day supply, 05/06, 07/24, 10/09. TC-this RX was written for 90 day supply to get all of the pt and pt's husbands meds in sync * Telephone Encounter - Sacha Lee - 11/06/2019 1055 EDT Pt told philip that she is taking this up to three times a day, there is a past script with this sig, [facility] calling on behalf of pt to have rx changed to reflect 3x a day and she wants a 90 day supply documented in this encounter Plan of Treatment Upcoming Encounters Date Type Department Care Team (Late st Contact Info) Description 05/19/2024 11:00 EST Office Visit [address], [address] [address] Dane Rick MD [address] [place] [phone] documented as of this encounter Visit Diagnoses Not on filedocumented in this encounter Care Teams Fuel Cell Technician Relationship Specialty Start Date End Date Otis Gee MD PCP - General 01/14/10 08/08/22 documented as of this encounter
--- OUTSIDE RECORDS SUMMARY | 2024-02-08 01:13 | XMS_ITS | Encounter Summary ---
Author Organization [facility] Address [address] [place] [address] Care Team Providers Care Clerical Coordinator Name Role Phone Otis Gee MD Primary Care Provider Unava ilable Encounter Details Date Type Department Care Team (Latest Contact Info) Description 05/16/2019 Travel Social History Tobacco Use Types Packs/Day [...] 11:00 EST Office Visit [facility] Family Medicine [address], [address] [phone] Dane Rick MD [address] [place] [address] [address] [place] [phone] documented as of this encounter Visit Diagnoses Not on filedocumented in this encounter Care Teams Clerical Coordinator Relationship Specialty Start Date End Date Otis Gee MD PCP - General 01/14/10 08/08/22 documented as of this encounter
--- OUTSIDE RECORDS SUMMARY | 2024-02-08 01:13 | XMS_ITS | Encounter Summary ---
Author Organization [facility] Address [address] [place] [address] Care Team Providers Care Alteration Tailor Name Role Phone Otis Gee MD Primary Care Provider Unava ilable Encounter Details Date Type Department Care Team (Latest Contact Info) Description 09/29/2020 Travel Social History Tobacco Use Types Packs/Day [...] 11:00 EST Office Visit [facility] - [place] [address] [address], [address] [place] [address] Dane Rick MD [address] [place] [phone] documented as of this encounter Visit Diagnoses Not on filedocumented in this encounter Care Teams Alteration Tailor Relationship Specialty Start Date End Date Otis Gee MD PCP - General 01/14/10 08/08/22 documented as of this encounter
--- OUTSIDE RECORDS SUMMARY | 2024-02-08 01:13 | XMS_ITS | Encounter Summary ---
Author Organization [facility] Address [address] [place] [address] Care Team Providers Care Kosher Dietary Service Supervisor Name Role Phone Otis Gee MD Primary Care Provider Unava ilable Reason for Visit * Reason Comments Follow-up has had severe sore throat, curious if it has anything to do with FNA procedure Encounter Details Date Type Department Care Team ([facility] Contact Info) Description 08/26/2019 9:40 EDT Office Visit [facility] - [address] [address] Mendoza Guzmán MD [address] [place] [address] [address] [place] [address] Thyroid nodule (Primary Dx) Social [...] 9:41 EDT documented as of this encounter Progress Notes * Mendoza Guzmán MD - 08/26/2019 0942 EDT Followup thyroid nodules status post ultrasound-guided fine-needle aspirate biopsy. SUBJECTIVE: The patient is doing well, no new problems. Has some slight soreness afterwards, now resolved. OBJECTIVE: Ultrasound of thyroid has been ordered but not done yet. Fine needle aspirate biopsy results are both benign on both the left and right sides. IMPRESSION: Benign multinodular goiter. PLAN: The patient will have ultrasound of the thyroid done formally and will follow up with repeat ultrasound in 1 year or p.r.n. The patient understands and agrees with the current plan. cc: Ryan Gee documented in this encounter Plan of Treatment Upcoming Encounters Date Type Department Care Team (Late st Contact Info) Description 05/19/2024 11:00 EST Office Visit [facility] Family Medicine [address], [address] [place] [address] Dane Rick MD [address] [place] [address] [address] [place] [phone] documented as of this encounter Visit Diagnoses Diagnosis Thyroid nodule- Primary Nontoxic uninodular goiter documented in this encounter Care Teams Kosher Dietary Service Supervisor Relationship Specialty Start Date End Date Otis Gee MD PCP - General 01/14/10 08/08/22 documented as of this encounter
--- OUTSIDE RECORDS SUMMARY | 2024-02-08 01:13 | XMS_ITS | Encounter Summary ---
Author Organization [facility] Address [address] [place] [address] Care Team Providers Care Sugar Boiler Name Role Phone Otis Gee MD Primary Care Provider Unava ilable Reason for Visit * Vascular Lab (Routine) - Closed Specialty Diagnoses / Procedures Referred By Franky ferreira Referred To Contact Diagnoses Venous insufficiency (chronic) (peripheral) Procedures US VARICOSE VEIN DUPLEX Cathie Shah MD [address] [facility] [address] [place] [address] Referral ID Status Reason Start Date Expiration Date Visits Re quested Visits Authorized [id number] Closed 07/24/2019 1 1 Encounter Details Date Type Department Care Team (Latest Contact Info) Description 09/04/2019 14:00 EDT Ancillary Procedure Vascular Surgery and Endovascular Therapy - [address] [id number] Localized edema (Primary Dx); Venous insufficiency (chronic) (peripheral); Pain in left leg Social History Tobacco Use Types Packs/Day Years [...] Info) Description 05/19/2024 11:00 EST Office Visit [facility] [address] [facility], [address] [place], [place] [address] Dane Rick MD [address] [place] [address] [address] [place] [phone] documented as of this encounter Procedures Procedure Name Priority Date/Time Associated Diagnosis Comments US VARICOSE VEIN DUPLEX LEFT Routine 09/04/2019 14:51 EDT Venous insufficiency (chronic) (peripheral) Localized edema Pain in left leg documented in this encounter Results * US VARICOSE VEIN DUPLEX LEFT (09/04/2019 14:51 EDT) Left GSMT lizzy 0.54 cm MERGE CARDIO Left GSJ lizzy 0.65 cm MERGE CARDIO Left GSPT lizzy 0.59 cm MERGE CARDIO Left GSK lizzy 0.50 cm MERGE CARDIO Left GSDT lizzy 0.37 cm MERGE CARDIO Anatomical Region Laterality Modality Vascular Ultrasound Narrative 09/04/2019 17:06 EDT ?No evidence of deep or superficial venous thrombosis in the left lower extremity. ?No significant reflux in the left femoral, popliteal, and greater and short saphenous veins. Left Saphenous Venous The left saphenofemoral junction had no significant reflux. The left greater saphenous vein in the proximal thigh had no significant reflux. The left greater saphenous vein in the mid thigh had no significant reflux. The left greater saphenous vein in the distal thigh had no significant reflux. The knee segment of the great saphenous vein had no significant reflux. Left Lower Venous Other The left external iliac, common femoral, proximal greater saphenous, proximal profunda femoris, femoral, popliteal, peroneal, and posterior tibial veins demonstrate normal Doppler flow/waveforms and compression. Venous HPI and Indications LLE pain and swelling Venous Past Medical History Left ankle surgery Cathie Shah MD IMG VASCULAR OR DERABLES documented in this encounter Visit Diagnoses Diagnosis Localized edema- Primary Edema Venous insufficiency (chronic) (peripheral) Unspecified venous (peripheral) insufficiency Pain in left leg documented in this encounter Care Teams Sugar Boiler Relationship Specialty Start Date End Date Otis Gee MD PCP - General 01/14/10 08/08/22 documented as of this encounter
--- OUTSIDE RECORDS SUMMARY | 2024-02-08 01:13 | XMS_ITS | Encounter Summary ---
Author Organization [facility] Address [address] [place] [address] Care Team Providers Care Stockroom Keeper Name Role Phone Otis Gee MD Primary Care Provider Unava ilable Reason for Visit * Reason Comments Follow-up Encounter Details Date Type Department Care Team ([facility] Contact Info) Description 04/09/2020 10:15 EST Office Visit [facility] Family Medicine [place] [address] [address] , [facility] [address] [place], [place] [address] Otis Gee MD Depression with anxiety (Primary Dx); Essential (primary) hypertension Social History Tobacco Use Types Packs/Day Years [...] Sign Reading Time Taken Comments Blood Pressure 132/70 04/09/2020 0952 EST Pulse 68 04/09/2020 0952 EST Temperature - - Respiratory Rate - - Oxygen Saturation - - Inhaled Oxygen Concentration - - Weight - - Height 152.4 cm (5') 04/09/2020 0952 EST Body Mass Index - - documented in [...] Progress Notes * Otis Gee MD - 04/09/2020 1015 EST Images from the original note were not included. [facility] Primary Care Subjective: Chief Complaint(s): Follow-up HPI: Last visit: 1. Depression with anxiety ? Continue with her medication I did refill her lorazepam. I helped him drop rules of not letting people into their apartment at this point especially with the pandemic and thieves. Discussed the need to take steps to be more centered in their location and not so [id number]. 2. Other congestive heart failure ([facility]) NT PRO BNP ?? Will check B MOWER SHARPENER. I think this is more peripheral edema to be managed with compression stockings which I discussed with her ?This month has set up boundries with neighbor So upset about her right shoulder not really ever better. 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 She mentions that she really does need another project in her life at this point not 1 just to sit around. She feels that the people around her are not her class of people in [facility] but has no plans to move. ?? Otis Gee MD Other Notes All notes Progress Notes from Bre Day RN Instructions After Visit Summary (Automatic SnapShot taken 03/04/2020) Additional Documentation Vitals: ?? BP 144/70 ??(BP Cuff Location: Left arm, BP Patient Position: Sitting) Pulse 69 Temp 36.9 ??C (98.5 ??F) (Oral) Resp 15 Ht 152.4 cm (60) Wt 89.6 kg (197 lb 8 oz) SpO2 96% BMI 38.57 kg/m?? BSA 1.95 m?? More Vitals Encounter Info: ?? Billing Info, History, Allergies, Detailed Report Pharmacy Benefits No primary plan selected Other Plans ANDRIA LOPEZ ??- ??WG 20 CLASSIC PDP R ([facility]) ANDRIA LOPEZ ??- ?? (CHANGE - [place] [employer]) Orders Placed NT-PROBNP [facility] NT PRO BNP Medication Changes lorazepam 0.5 mg One every 8 hrs prn- max of two in 24 hours. Medication List Visit Diagnoses Depression with anxiety Other congestive heart failure ([facility]) Problem List I have reviewed patient's tobacco history: reports [...] concussive syndrome poor memory ??? Seizure disorder ([facility]) ??? Trigeminal neuralgia No family history on [...] file Gets together: Not on file Attends zoroastrian service: Not on file Active member of [...] problem list and current medications. ROS: ROS *Sleeping well, good appetite, no cardiac symptoms noted. Examination: Vitals: BP 132/70 (BP Cuff Location: Left arm, BP Patient Position: Sitting, BP Cuff Sizes: Adult, large) Pulse 68 Ht 152.4 cm (60) BMI 38.57 kg/m?? Body mass index is 38.57 kg/m??. Physical Exam *Nicely dressed, good eye contact humor full Long conversation regarding her current situation within the apartment. Lungs are clear Heart regular rhythm and rate Extremities without edema slight tenderness along the surgical scar the medial aspect of her ankle which is intact Data reviewed with patient past visit notes, and problem list Assessment & Plan: 1. Depression with anxiety Discussed current adjustment at this time. No change in medications. Discussed the stresses of pandemic with her extensively. 2. Essential (primary) hypertension No change in meds. Goal of increased exercise and weight loss for the coming year Otis Gee MD documented in this encounter Plan of Treatment Upcoming Encounters Date Type Department Care Team (Late st Contact Info) Description 05/19/2024 11:00 EST Office Visit [facility] Family Medicine [facility] [address] [facility], [address] [place], [place] [address] Dane Rick MD [address] [facility] [address] [place] [address] documented as of this encounter Visit Diagnoses Diagnosis Depression with anxiety- Primary Dysthymic disorder Essential (primary) hypertension Unspecified essential hypertension documented in this encounter Care Teams Stockroom Keeper Relationship Specialty Start Date End Date Otis Gee MD PCP - General 01/14/10 08/08/22 documented as of this encounter
--- OUTSIDE RECORDS SUMMARY | 2024-02-08 01:13 | XMS_ITS | Encounter Summary ---
Author Organization [facility] Address [address] [place] [address] Care Team Providers Care Vascular Manager Name Role Phone Otis Gee MD Primary Care Provider Unava ilable Reason for Visit * Reason Onset Date Comments Orders (Non Pre-visit) 05/20/2019 Encounter Details Date Type Department Care Team ([facility] st Contact Info) Description 05/20/2019 Telephone [facility] [address], [address] [place], [place] [phone] Damno Francis MD [address] [facility] [address] [place] [address] Orders (Non Pre-visit) Social History Tobacco Use Types Packs/Day Years [...] Miscellaneous Notes * Telephone Encounter - Luana Martinez RN - 05/21/2019 0937 EST Resent order WITHOUT contrast * Telephone Encounter - Damon Francis MD - 05/20/2019 1558 EST WITHOUT please. * Telephone Encounter - Luana Martinez, RN - 05/20/[address] Francis- do you want the chest CT WITH contrast? * Telephone Encounter - Janice Hamm - 05/20/2019 1511 EST Per the Radiologist, we need an order for a CT chest without contrast please. documented in this encounter Plan of Treatment Upcoming Encounters Date Type Department Care Team (Late st Contact Info) Description 05/19/2024 11:[address] [facility] Family Medicine [address], [address] [place] [address] Dane Rick MD [address] [place] [address] [address] [place] [address] documented as of this encounter Visit Diagnoses Diagnosis Sternoclavicular (joint) (ligament) sprain, right, initial encounter- Primary documented in this encounter Care Teams Vascular Manager Relationship Specialty Start Date End Date Otis Gee MD PCP - General 01/14/10 08/08/22 documented as of this encounter
--- OUTSIDE RECORDS SUMMARY | 2024-02-08 01:13 | XMS_ITS | Encounter Summary ---
Author Organization [facility] Address [address] [place] [address] Care Team Providers Care Dial Polisher Name Role Phone Otis Gee MD Primary Care Provider Unava ilable Reason for Visit * Reason Comments New Patient Visit Dr Al sent for nodule found in US done for something else, no symptoms * Consult (Routine) - Order Cancelled Specialty Diagnoses / Procedures Referred By Franky ferreira Referred To Contact Otolaryngology Diagnoses Thyroid nodule Otis Gee MD [address] [address] Referral ID Status Reason Start Date Expiration Date V isits Requested Visits Authorized [id number] Order Cancelled 07/24/2019 1 1 Encounter Details Date Type Department Care Team ([facility] st Contact Info) Description 08/19/2019 11:10 EDT Office Visit [facility] ENT - [address] [address] Mendoza Guzmán MD [address] [place] [address] [address] [place] [address] Thyroid nodule (Primary Dx) Social [...] 10:42 EDT documented as of this encounter Last Filed Vital Signs Vital Sign Reading Time Taken Comments Blood Pressure 135/70 08/19/2019 1046 EDT Pulse 69 08/19/2019 1046 EDT Temperature - - Respiratory Rate - - Oxygen Saturation - - Inhaled Oxygen Concentration - - Weight 92.1 kg (203 lb) 08/19/2019 1046 EDT Height 152.4 cm (5') 08/19/2019 1046 EDT Body Mass Index 39.65 08/19/2019 1046 EDT documented in this encounter Progress Notes * Mendoza Guzmán MD - 08/19/2019 1110 EDT This is a consult from Dr Ryan Gee for evaluation of thyroid nodules. HISTORY OF PRESENT ILLNESS: This is a 78-year-old female with an incidental finding of thyroid nodules on chest CT scan. The patient denies any hyper- or hypothyroid symptoms. Normal TSH. The patientdenies any hoarseness, change in voice, dysphagia, odynophagia. No history of prior radiation exposure. No family history of thyroid cancer or multiple endocrine neoplasia. CURRENT MEDICATIONS: Include aspirin, Wellbutrin, Lasix, Cozaar, Mevacor. She has drug allergies to AUGMENTIN, FLAGYL, METOPROLOL, PREDNISONE, and ZITHROMAX. MEDICAL HISTORY: Medical illnesses are significant for hypertension, sleep apnea, seizure disorder,abnormal stress test, shortness of breath, chest pressure, diverticulosis, hyperlipidemia, postconcussive syndrome and trigeminal neuralgia. Prior surgeries include blepharoplasty, ectropion repair and rotator cuff repair. FAMILY HISTORY: Negative for anesthesia problems. SOCIAL HISTORY: The patient is a nonsmoker. REVIEW OF SYSTEMS: Significant for weakness, shortness of breath, anxiety, depression, reflux, heartburn. Otherwise, negative for a complete review of all systems. PHYSICAL EXAMINATION: General: Well-developed, well-nourished, elderly, pleasant, cooperative adultfemale in no acute distress. Normal voice. Vital signs: Height 60 inches, weight 203, blood pressure 135/70, pulse 69. No reportable pain. The face is normal without lesions. Facial strength is symmet domitila. Eye exam is normal. Ears: External ears are normal. Hearing is grossly intact. Nose: Nasal dorsum is midline, the airway is patent. Oral cavity is clear. Neck: No pathologic lymphadenopathy. Trachea is midline. Chest is clear to auscultation. CT scans were also read and reviewed, which shows a dominant left posterior thyroid nodule and a right mid-thyroid nodule. PROCEDURE: Informed consent of the procedure along with the possible risks, complications, alternatives and aims were discussed in detail with the patient who understands these risks and agrees with the procedure. ??? I explained the procedure, as well as benefits [...] was verbally confirmed prior to the procedure. The patient was placed in the supine position. Ultrasound was performed. The nodules were identified. The skin was marked. Local anesthesia was infiltrated. Final verification was performed, including fire risks, which was zero, and using ultrasound guidance, a fine-needle aspirate biopsy was performed x2 on both the left and right thyroid nodules with a 23-gauge needle. Specimens were sent to cytology. The patient tolerated the procedure well without complications. IMPRESSION: Multinodular goiter with the left posterior thyroid nodule measuring 3.2 cm in diameter. PLAN: We will obtain a formal ultrasound of the thyroid. Followup with ENT after the ultrasound andfor fine needle aspirate biopsy results. Instruction material on thyroid was given to the patient and discussed in detail. The patient understands and agrees with the current plan. Cc: Dr Ryan Gee documented in this encounter Miscellaneous Notes * Addendum Note - Zaida Chaudhari RN - 08/19/2019 1110 EDTAddended by: ZAIDA CHAUDHARI on: 08/19/2019 11:34 Modules accepted: Orders documented in this encounter Plan of Treatment Upcoming Encounters Date Type Department Care Team (Late st Contact Info) Description 05/19/2024 11:[address] [facility] Medicine [facility] [address] [facility] [place] [address] Dane Rick MD [address] [facility] [address] [place] [address] Scheduled Orders Name Type Priority Associated Diagnoses Orde r Schedule NON HYPOID GEAR GENERATOR/FNA CYTOLOGY Pathology Routine Thyroid nodule Ordered: 08/19/2019 documented as of this encounter Procedures Procedure Name Priority Date/Time Associated Diagnosis Comments CYTOLOGY (NON-GYNECOLOGIC INCLUDING FLUIDS AND FINE NEEDLE ASPIRATION)- ORDER ONLY Routine 08/19/2019 10:25 EDT Thyroid nodule documented in this encounter Results * CYTOLOGY (NON-GYNECOLOGIC INCLUDING FLUIDS AND FINE NEEDLE ASPIRATION)- ORDER ONLY (08/19/2019 10:25 EDT) 08/19/2019 10:2 5 EDT 08/20/2019 10:25 EDT Narrative [facility] - 08/21/2019 14:15 EDT ----- ------- Name: ANDRIA LOPEZ ? : 42 ?Age/Sex: 78/F ?Unit#: [id number] ? Loc: LAB.OPX ? Status: REG REF ?? Reg Date: 08/19/19 ? Pt.Phone Number: ? ----- ------- Specimen: [id number] ? STATUS: SOUT ?Spec Date:08/19/19 ? Physician Copies: ?Mendoza Guzmán ??M Tissues: A ?? THYROID FNA (LEFT) ? Otis Gee MD ? B ?? THYROID FNA (RIGHT) ? CPT: 39885 ?? Units: ??2 ----- ------- ?? NON HYPOID GEAR GENERATOR CYTOLOGY DIAGNOSIS A. THYROID, LEFT, ULTRASOUND GUIDED FINE NEEDLE ASPIRATION: - Consistent with benign follicular nodule. ??See comment. B. THYROID, RIGHT, ULTRASOUND GUIDED FINE NEEDLE ASPIRATION: - Benign follicular nodule. ??See comment. Comment: A: Hypocellular specimen meets criteria for adequacy; scattered follicles of variable size; some colloid present in the background; no cytologic atypia identified. B: Adequate specimen consisting of scattered groups of bland appearing follicular cells and Hurthle cells arranged in follicles of variable size within a background of relatively abundant colloid; no cytologic atypia identified. ----- ------- ? SPECIMEN DESCRIPTION ? A. 2 fixed prepared slides, 2 ??air dried prepared slides, and 1 ?? tube of Cytolyt were received and processed by selective ?? enhancement technique. ?? B. 2 fixed prepared slides, 2 ??air dried prepared slides, and 1 ?? tube of Cytolyt were received and processed by selective ?? enhancement technique. Signed ____(signature on file)____ Nyla Jean-Baptiste M.D. 08/21/19 By the signature above, the attending physician certifies that he/she has personally conducted a gross and/or microscopic examination of the described specimens and rendered or confirmed the above diagnosis. Test Performed by [facility], [address] [place], [place] [id number] Emergency Medcl Emt: Nyla Jean-Baptiste MD PHD ----- ------- eMndoza Guzmán MD PATHOLOGY ORDERABLES [facility] documented in this encounter Visit Diagnoses Diagnosis Thyroid nodule- Primary Nontoxic uninodular goiter documented in this encounter Care Teams Dial Polisher Relationship Specialty Start Date End Date Otis Gee MD PCP - General 01/14/10 08/08/22 documented as of this encounter
--- OUTSIDE RECORDS SUMMARY | 2024-02-08 01:13 | XMS_ITS | Encounter Summary ---
Author Organization [facility] Address [address] [place] [address] Care Team Providers Care Exercise Planner Name Role Phone Otis Gee MD Primary Care Provider Unava ilable Reason for Visit * Reason Comments Other Encounter Details Date Type Department [facility] Description 10/19/2020 13:45 EDT Office Visit [facility] Medicine [place] [address] [address] , [facility] [address] [place], [place] [address] Otis Gee MD Traumatic brain injury with loss of consciousness, sequela (HCC-CMS) (Primary Dx); COVID-19 vaccine first dose declined Social History Tobacco Use Types Packs/Day Years [...] 9:49 EDT documented as of this encounter Last Filed Vital Signs Vital Sign Reading Time Taken Comments Blood Pressure 116/76 10/19/2020 1340 EDT Pulse 62 10/19/2020 1340 EDT Temperature - - Respiratory Rate 16 10/19/2020 1340 EDT Oxygen Saturation - - Inhaled Oxygen Concentration - - Weight - - Height 152.4 cm (5') 10/19/2020 1340 EDT Body Mass Index - - documented [...] Progress Notes * Otis Gee MD - 10/19/2020 1345 EDT [facility] Subjective: Chief Complaint(s): No chief complaint on file. HPI: 1) refuses vaccine for Covid 19 virus- sees this as an overblown government conspiracy and that more have due to the vaccine, not the illness. 2) not well, I was unsteady , I had t oreach out to hold car to steady, ---to go cabot to sleep,, to tolono.. There is off loading of gas in the apartment building in [place], like smoked ham, Then smells like old pee.then worried it was weed, and then someone told her to be worried it was a Meth lab. Now very worried , she has had family paint a room for abed back in [place] at the [employer] store and she plans to move back or at least sleep there at night. Says there is no point in telling mackenzielorselma as he is perhaps in on this. furthermore, Woke up today, went out and ceiling has dropped, Suspicions it is the landlorbrianhe thinks it from the dropped ceiling and sprinkler head No smoke in theair. I have reviewed patient's tobacco history: reports [...] tablet, Take 1 tablet by mouth twice daily for 90 days, Disp: 180 Tab, Rfl: 0 ??? furosemide (LASIX) 20 mg tablet, TAKE 2 TABLETS BY MOUTH IN THE MORNING AND 1 TABLET IN THE AFTERNOON, Disp: 270 Tab, Rfl: 0 ??? LORazepam (ATIVAN) 0.5 mg tablet, One every 8 hrs prn- max of two in 24 hours., Disp: 50 Tab, Rfl: 3 ??? losartan (COZAAR) 50 mg tablet, Take 1 tablet by mouth once daily for 90 days, Disp: 90 Tab, Rfl: 0 ??? lovastatin (MEVACOR) 20 mg [...] Strain: ??? Difficulty of Paying Living Expenses: Food Insecurity: ??? Worried About Running Out of Food in the Last Year: ??? Ran Out of Food in the Last Year: Transportation Needs: ??? Lack of Transportation (Medical): ??? Lack of Transportation (Non-Medical): Physical Activity: ??? Days of Exercise per Week: ??? Minutes of Exercise per Session: Stress: ??? Feeling of Stress : Social Connections: ??? Frequency of Communication with Friends and Family: ??? Frequency of Social Gatherings with Friends and Family: ??? Attends Confucianism Services: ??? Active Member of Clubs or Organizations: ??? Attends Club or Organization Meetings: ??? Marital Status: I have reviewed current problem list and current medications. ROS: ROS See above Objective: Examination: Vitals: BP 116/76 (BP Cuff Location: Left arm, BP Patient Position: Sitting, BP Cuff Sizes: Adult, large) Pulse 62 Resp 16 Ht 152.4 cm (60) BMI 38.57 kg/m?? Body mass index is 38.57 kg/m??. Physical Exam Anxious, sad seeming. Long rambling discussion about the fears she has and how she is handling them. Lungs-clear, normal rr Heart-rrr Ext no edema noted. Long discussion about her anger around Covid and refusal karlee vaccinated Data reviewed with patient none Assessment & Plan: 1. Traumatic brain injury with loss of consciousness, sequela ([facility]-CMS) concerning sequence . i am glad she is finding a safe place. reviewed past episodes that had same effect and need for finding secure place alisson 2. COVID-19 vaccine first dose declined promised to call if at all sick for testing and care. adamantly refuses vaccination 50 minutes spent in counseling and examination Otis Gee MD * Joyce Lord LPN - 10/19/2020 6085 EDT Pt has not received COVID-19 vaccine. This headline writer offered to initiate series in office today, as itis now available, pt firmly declines. documented in this encounter Plan of Treatment Upcoming Encounters Date Type Department Care Team (Late st Contact Info) Description 05/19/2024 11:00 EST Office Visit [facility] [address], [address] [place] [address] Dane Rick MD [address] [place] [address] documented as of this encounter Visit Diagnoses Diagnosis Traumatic brain injury with loss of consciousness, sequela ([facility])- Primary COVID-19 vaccine first dose declined documented in this encounter Care Teams Exercise Planner Relationship Specialty Start Date End Date Otis Gee MD PCP - General 01/14/10 08/08/22 documented as of this encounter
--- OUTSIDE RECORDS SUMMARY | 2024-02-08 01:13 | XMS_ITS | Encounter Summary ---
Author Organization [facility] Address [address] [place] [address] Care Team Providers Care Windows Desktop Support Name Role Phone Otis Gee MD Primary Care Provider Unava ilable Reason for Visit * Reason Comments Follow-up Encounter Details Date Type Department Care Team ([facility] st Contact Info) Description 04/21/2020 15:00 EST Office Visit [facility] [address] [place], [place] [id number] Damon Francis MD [address] [facility] [address] [place] [address] Traumatic complete tear of right rotator cuff, subsequent encounter (Primary Dx); Sternoclavicular (joint) (ligament) sprain, right, initial encounter; Primary osteoarthritis of left knee Social History Tobacco Use [...] 15:00 EST documented as of this encounter Last Filed Vital Signs Vital Sign Reading Time Taken Comments Blood Pressure - - Pulse - - Temperature 36.4 ??C (97.6 ??F) 04/21/2020 1501 EST Respiratory Rate - - Oxygen Saturation [...] Progress Notes * Damon Francis MD - 04/21/2020 1500 ESTAssociated Order(s): Large Joint Injection/Arthrocentesis: L knee Post-Procedure Diagnose(s): Primary osteoarthritis of left knee PROBLEM: 1. Follow-up right rotator cuff tear 2. Left knee pain SUBJECTIVE: Kenyatta Vizcaino is a 79 y.o. female who is here today for follow up. Ms. Vizcaino had rotator cuff repair in December 2018. She has never regained full use of the right shoulder. She still has pain and limited motion. She has managed to make accommodations for her limitations but itdoes bother her. She is complaining more today about left knee pain. She has pain throughout the knee. Pain is worsewith weightbearing. Pain occurs at end range of motion. She has some nighttime pain. The past medical, family and social history have been reviewed in the patient chart. Review of Systems Constitutional: Negative for chills and fever. Respiratory: Negative for cough and shortness of breath. Gastrointestinal: Negative for diarrhea, nausea and vomiting. Musculoskeletal: Positive for joint pain. OBJECTIVE: Temp 36.4 ??C (97.6 ??F) On physical exam, the patient is found to be a pleasant and cooperative female accompanied by her . In no acute distress. Psych: She is alert and oriented x 3 with normal affect. Constitutional: She is well-developed and in no significant distress. Eyes: Sclerae clear. Resp: Breathing is regular and nonlabored without audible wheezing. Skin: warm and dry Msk: Right shoulder was examined first. She has active flexion and abduction to about 70 or 80 degrees. Passive motion is easily above shoulder height. She has weakness with testing the rotator cuff. Left knee has moderate swelling. No erythema. No ecchymosis. Able to get full extension. Flexion toabout 95 degrees. Pain at end range of flexion. No gross instability. Neuro: Sensation intact light touch Vasc: Normal distal pulses, good capillary refill. DIAGNOSTICS: Radiographs of left knee were ordered and taken in the office today. These were independently reviewed by me. AP standing, PA flexion standing, lateral, sunrise view left knee. Patient has advanced degenerative arthritis of the left knee with near complete loss of the medial compartment. Parrot-beak osteophytes are present. There is evidence for subchondral sclerosis. ASSESSMENT: 1. Traumatic complete tear of right rotator cuff, subsequent encounter Status post rotator cuff repair with poor functional recovery. Chronic problem causing persistent symptoms. 2. Sternoclavicular (joint) (ligament) sprain, right, initial encounter Injury to the sternoclavicular joint the same time as the rotator cuff tear. Improved. 3. Primary osteoarthritis of left knee Chronic arthritis left knee worsening. PLAN: We did discuss possible options for treating her shoulder. She could consider revision surgery witha superior capsular reconstruction. Before considering any further surgery I would recommend repeating her x-rays to be sure there is no evidence for degenerative disease as a cause for her current limitations. If the glenohumeral joint remains normal, and I think superior capsular reconstruction would be an option. If there is advanced degenerative arthritis, she may wish to consider possible arthroplasty. For her left knee pain, I do think it is worthwhile trialing a steroid injection. She has not had previous injections that she can recall for her left knee. Some patients do get good long-term reliefwith the injection. She was amenable to this procedure and it was performed in the office today without difficulty. Procedure: Large Joint Injection/Arthrocentesis: L knee on 04/21/2020 15:00 Details: 22 G needle, lateral approach Medications: 6 mg betamethasone 6 mg/mL; 4 mL lidocaine (PF) 10 mg/mL (1 %) Outcome: tolerated well, no immediate complications Procedure, treatment alternatives, risks and benefits explained, specific risks discussed. Consent was given by the patient. Immediately prior to procedure a time out was called to verify the correctpatient, procedure, equipment, user support analyst supervisor and site/side marked as required. Patient was prepped and draped in the usual sterile fashion. Follow up as needed With right shoulder xrays This note was prepared using voice recognition software and the EMR. There may be inadvertent errors and omissions. Damon Francis MD 04/21/2020 documented in this encounter Plan of Treatment Upcoming Encounters Date Type Department Care Team (Late st Contact Info) Description 05/19/2024 11:00 EST Office Visit [address], [address] [place] [address] Dane Rick MD [address] [place] [address] [address] [place] [address] Scheduled Orders Name Type Priority Associated Diagnoses Orde r Schedule XR KNEE LEFT 4 OR MORE VIEWS Imaging Routine Primary osteoarthritis of left knee Ordered: 04/21/2020 documented as of this encounter Procedures Procedure Name Priority Date/Time Associated Diagnosis Comments XR KNEE LEFT 4 OR MORE VIEWS 04/21/2020 20:06 EST LARGE JOINT INJECTION/ARTHROCE NTESIS Routine 04/21/2020 15:00 EST Primary osteoarthritis of left knee documented in this encounter Results * XR KNEE LEFT 4 OR MORE VIEWS (04/21/2020 20:06 EST) Anatomical Region Laterality Modality Lower Extremities Left Computed Radio graphy 04/21/2020 20:0 6 EST Narrative 04/21/2020 20:06 EST ? EXAM: RADIOLOGY/KNEE COMPLETE LT 4+VIEW ?? EX. D/ (1616) ? CLINICAL INFORMATION: ? M17.12 PRIMARY OSTEOARTHRITIS OF LEFT KNEE ? PROCEDURE INFORMATION: ? Exam: XR Left Knee ? Exam date and time: 04/21/2020 3:53 PM ? Age: 79 years old ? Clinical indication: Unilateral primary osteoarthritis, left ? knee; Pain; Additional info: M17.12 primary osteoarthritis of ? left knee ? TECHNIQUE: ? Imaging protocol: XR Left knee. ? Views: 4 or more views. ? COMPARISON: ? CR LOWER LEG-LEFT (TIB-FIB)-2VIEW 04/15/2019 8:49 PM ? FINDINGS: ? Bones/joints: Moderate left knee bicompartmental degenerative ? changes . Severe narrowing of the medial joint space. No acute ? fracture or dislocation. ? Soft tissues: Normal. ? IMPRESSION: ? No acute fracture or dislocation. ? REPORT SIGNED IN OTHER VENDOR SYSTEM 04/21/2020 ?Reported By: Parris Khanna MD ? CC: Damon Francis MD ? Transcribed Date/Time: 04/21/2020 (2005) ? Trimmer Hand: ? Printed Date/Time: 04/21/2020 (2005) ? PAGE 1 ? Signed Report ? Procedure Note Parris Khanna MD - 04/21/2020 EXAM: RADIOLOGY/KNEE COMPLETE LT 4+VIEW EX. D/ (1616) CLINICAL INFORMATION: M17.12 PRIMARY OSTEOARTHRITIS OF LEFT KNEE PROCEDURE INFORMATION: Exam: XR Left Knee Exam date and time: 04/21/2020 3:53 PM Age: 79 years old Clinical indication: Unilateral primary osteoarthritis, left knee; Pain; Additional info: M17.12 primary osteoarthritis of left knee TECHNIQUE: Imaging protocol: XR Left knee. Views: 4 or more views. COMPARISON: CR LOWER LEG-LEFT (TIB-FIB)-2VIEW 04/15/2019 8:49 PM FINDINGS: Bones/joints: Moderate left knee bicompartmental degenerative changes . Severe narrowing of the medial joint space. No acute fracture or dislocation. Soft tissues: Normal. IMPRESSION: No acute fracture or dislocation. REPORT SIGNED IN OTHER VENDOR SYSTEM 04/21/2020 Reported By: Parris Khanna MD CC: Damon Francis MD Transcribed Date/Time: 04/21/2020 (2005) Trimmer Hand: Printed Date/Time: 04/21/2020 (2005) PAGE 1 Signed Report Damon Francis MD IMG DIAGNOSTIC I MAGING ORDERABLES * IN ARTHROCENTESIS ASPIR&/INJ MAJOR JT/BURSA W/O US (04/21/2020 15:00 EST) Narrative [facility] POINT OF CARE - 04/21/2020 15:00 EST Damon Francis MD ? 04/23/2020 13:00 Large Joint Injection/Arthrocentesis: L knee on 04/21/2020 15:00 Details: 22 G needle, lateral approach Medications: 6 mg betamethasone 6 mg/mL; 4 mL lidocaine (PF) 10 mg/mL (1 %) Outcome: tolerated well, no immediate complications Procedure, treatment alternatives, risks and benefits explained, specific risks discussed. Consent was given by the patient. Immediately prior to procedure a time out was called to verify the correct patient, procedure, equipment, user support analyst supervisor and site/side marked as required. Patient was prepped and draped in the usual sterile fashion. Damon Francis MD PROCEDURE/MINOR SURGICAL ORDERABLES [facility] POINT OF CARE documented in this encounter Visit Diagnoses Diagnosis Traumatic complete tear of right rotator cuff, subsequent encounter- Primary Sternoclavicular (joint) (ligament) sprain, right, initial encounter Primary osteoarthritis of left knee Primary localized osteoarthrosis, lower leg documented in this encounter Administered Medications Inactive Administered Medications - up to 3 most recent administrations Medication Order MAR Action Action Date Dose Rate Site betamethasone (CELESTONE SOLUSPAN) 6 mg/mL injection 6 mg 6 mg, intra-articular, Once PRN Procedure, 1 dose, Starting on Sun04/21/20 at 1500, Until Sun04/21/20 at 1500, Routine Given 04/21/2020 15:00 EST 6 mg lidocaine (PF) 10 mg/mL (1 %) injection 4 mL 4 mL, other, Once PRN Procedure, 1 dose, Starting on Sun04/21/20 at 1500, Until Sun04/21/20 at 1500, Routine Given 04/21/2020 15:00 EST 4 mL documented in this encounter Care Teams Windows Desktop Support Relationship Specialty Start Date End Date Otis Gee MD PCP - General 01/14/10 08/08/22 documented as of this encounter
--- OUTSIDE RECORDS SUMMARY | 2024-02-08 01:13 | XMS_ITS | Encounter Summary ---
Author Organization [facility] Address [address] [place] [address] Care Team Providers Care Gauger Delivery Name Role Phone Otis Gee MD Primary Care Provider Unava ilable Reason for Visit * Reason Comments Other Encounter Details Date Type Department Care Team ([facility] Contact Info) Description 08/14/2020 Refill [facility] Medicine [place] [address], [address] [place] [address] Otis Gee MD Other Social History Tobacco [...] 1 tablet by mouth once daily 90 Tab 3 08/17/2020 03/24/2021 documented in this encounter Miscellaneous Notes * Telephone Encounter - Elba Narayanan, RN - 08/16/2020 0823 EDT HANNA-08/05/20 NOV- none Medication is no longer on pt's med list however, there is no documentation that this med was d/c'd. Last refilled for a year 07/24/19 Per protocol, forwarding to provider to advise on refill documented in this encounter Plan of Treatment Upcoming Encounters Date Type Department Care Team (Late st Contact Info) Description 05/19/2024 11:00 EST Office Visit [facility] Family Medicine [address], [facility] 2 [place] [address] Dane Rick MD [address] [place] [phone] documented as of this encounter Visit Diagnoses Not on filedocumented in this encounter Discontinued Medications Medication Sig Discontinue Reason Start Date End Da te lovastatin (MEVACOR) 20 mg tablet Take 1 Tab by mouth daily for 360 days. 07/24/2019 08/17/2020 documented as of this encounter Care Teams Gauger Delivery Relationship Specialty Start Date End Date Otis Gee MD PCP - General 01/14/10 08/08/22 documented as of this encounter
--- OUTSIDE RECORDS SUMMARY | 2024-02-08 01:13 | XMS_ITS | Encounter Summary ---
Author Organization [facility] Address [address] [place] [address] Care Team Providers Care Firearms Assembly Supervisor Name Role Phone Otis Gee MD Primary Care Provider Unava ilable Reason for Visit * Reason Comments Other Encounter Details Date Type Department Care Team ([facility] Contact Info) Description 04/28/2020 [place] [address], [address] [place] [address] Otis Gee MD Other Social History Tobacco [...] Telephone Encounter - Nupur Benson RN - 04/28/2020 1345 EST Refill denied- 03/04/20 sent with 3 rfs-should still have rfs on file documented in this encounter Plan of Treatment Upcoming Encounters Date Type Department Care Team (Late st Contact Info) Description 05/19/2024 11:00 EST Office Visit [facility] Family Medicine [address], [facility] 2 [place], [place] [phone] Dane Rick MD [address] [place] [address] [address] [place] [phone] documented as of this encounter Visit Diagnoses Not on filedocumented in this encounter Care Teams Firearms Assembly Supervisor Relationship Specialty Start Date End Date Otis Gee MD PCP - General 01/14/10 08/08/22 documented as of this encounter
--- OUTSIDE RECORDS SUMMARY | 2024-02-08 01:13 | XMS_ITS | Encounter Summary ---
Author Organization [facility] Address [address] [place] [address] Care Team Providers Care Rn Radiation Name Role Phone Otis Gee MD Primary Care Provider Unava ilable Reason for Visit * Reason Comments Other Encounter Details Date Type Department Care Team ([facility] Contact Info) Description 12/03/2020 Refill [place] [address], [address] [place] [address] Otis Gee MD Other Social History Tobacco [...] tablet by mouth twice daily 180 Tablet 12/09/2020 03/18/2021 furosemide (LASIX) 20 mg tablet TAKE 2 TABLETS BY MOUTH IN THE MORNING AND 1 TABLET IN THE AFTERNOON 270 Tablet 12/09/2020 03/18/2021 losartan (COZAAR) 50 mg tablet Take 1 tablet by mouth once daily 90 Tablet 12/09/2020 03/18/2021 documented in this encounter Miscellaneous Notes * Telephone Encounter - Nupur Benson RN - 12/09/2020 1149 EDT Last appt 10/19/20, no follow up scheduled. documented in this encounter Plan of Treatment Upcoming Encounters Date Type Department Care Team (Late st Contact Info) Description 05/19/2024 11:00 EST Office Visit [facility] Family Medicine [address], [facility] 2 [place], [place] [phone] Dane Rick MD [address] [place] [phone] documented as of this encounter Visit Diagnoses Not on filedocumented in this encounter Discontinued Medications Medication Sig Discontinue Reason Start Date End Da te losartan (COZAAR) 50 mg tablet Take 1 tablet by mouth once daily for 90 days 08/31/2020 12/09/2020 furosemide (LASIX) 20 mg tablet TAKE 2 TABLETS BY MOUTH IN THE MORNING AND 1 TABLET IN THE AFTERNOON 08/31/2020 12/09/2020 buPROPion (WELLBUTRIN SR) 150 mg SR tablet Take 1 tablet by mouth twice daily for 90 days 08/31/2020 12/09/2020 documented as of this encounter Care Teams Rn Radiation Relationship Specialty Start Date End Date Otis Gee MD PCP - General 01/14/10 08/08/22 documented as of this encounter
--- OUTSIDE RECORDS SUMMARY | 2024-02-08 01:14 | XMS_ITS | Encounter Summary ---
Author Organization [facility] Address [address] [place] [address] Care Team Providers Care Protective Services Case Worker Name Role Phone Otis Gee MD Primary Care Provider Unava ilable Reason for Visit * Reason Comments New Patient Visit FBSE Skin Lesion Right eye, Left fore head * Consult (Routine) - Specialty Report Received Specialty Diagnoses / Procedures Referred By [facility]hon Referred To Contact Dermatology Diagnoses Disorder of the skin and subcutaneous tissue, unspecified Otis Gee MD [facility] Dermatology [address] [place] [id number] Referral ID Status Reason Start Date Expiration Date V isits Requested Visits Authorized [id number] Specialty Report Received 1 1 Encounter Details Date Type Department Care Team ([facility] st Contact Info) Description 06/21/2017 11:20 EDT Office Visit [facility] Dermatology 5th [address] [address] Duran Easley MD [address] [place] [address], [address] [place] [phone] Actinic keratoses (Primary Dx); Seborrheic keratoses; Sun-damaged skin; Scar Discharge Disposition: Auto Discharge Social History Tobacco Use Types Packs/Day Years Used Date Smoking Tobacco: Never Smokeless Tobacco: Never Alcohol Use Standard Drinks/Week Comments Yes 0 (1 standard drink = 0.6 oz pur e alcohol) occasionally Sex and Gender Information Value Date Recorded Sex Assigned at Not on file Gender Identity Female 02/28/2019 7:38 EST Sexual Orientation Not on file documented as of this encounter Discharge Diagnoses Diagnosis L57.0 Actinic keratosis-L57.0[ICD-10-CM] L82.1 Other seborrheic keratosis-L82.1[ICD-10-CM] L90.5 Scar conditions and fibrosis of skin-L90.5[ICD-10-CM] documented in this encounter Discharge Disposition Disposition Code Departure Means Destination Auto Discharge documented in this encounter Progress Notes * Becki Quinn - 06/21/2017 1120 EDT Review of Systems Constitutional: Negative for fatigue, fever and unexpected weight change. HENT: Negative for mouth sores. Eyes: Negative for pain. Respiratory: Negative for cough and shortness of breath. Cardiovascular: Negative for chest pain and palpitations. Gastrointestinal: Negative for abdominal pain, blood in stool, constipation, diarrhea, nausea and vomiting. Genitourinary: Negative for dysuria, frequency and hematuria. Musculoskeletal: Negative for myalgias, joint swelling, arthralgias and muscle stiffness in the morning. Skin: Negative for rash. Neurological: Negative for numbness and headaches. Endo/Heme/Allergies: Does not bruise/bleed easily. Psychiatric/Behavioral: Negative for sleep disturbance. The patient is not nervous/anxious. Becki Quinn 06/21/2017 11:14 * Duran Easley MD - 06/21/2017 1120 EDT Dermatology Outpatient Visit Note Chief Complaint Patient presents with ??? New Patient Visit FBSE ??? Skin Lesion Right eye, Left forehead Last Dermatology office visit: New patient visit SUBJECTIVE Kenyatta Vizcaino is a 76 y.o. female who presents for new evaluation and treatment of a growth near the right medial canthus. Kenyatta and her note that the lesion has been present for 1-2 years, no spontaneous bleeding or pain was noted over that time. However several days ago, she had picked at the lesion and developed a scab over the site. Her primary care doctor evaluated the site and was concerned that it may represent a nonmelanoma skin cancer. The patient has since been applyingraw honey to the site and notes that the scab has fallen off, overall significantly improved in appearance. Her only other concerns are a few rough areas on her forehead. She has used raw honey on most of these sites with some improvement. She has avoided the sun for most of her adult life, had an episode of sun stroke in her youth that was quite severe. Otherwise feeling well. For full Medical, Surgical, Family, and Social histories, please see the History section of this encounter in the electronic chart which I have personally reviewed. For Review of Systems, Medications and Allergies, please see those sections of this encounter in the electronic chart which I have also reviewed. She has a current medication list which includes the following prescription(s): aspirin, clopidogrel, furosemide, losartan, lovastatin, and metoprolol xl. She is allergic to flagyl [metronidazole]; penicillins; and zithromax [azithromycin]. OBJECTIVE VS: There were no vitals taken for this visit. Ms. Vizcaino is healthy, well developed, well-nourished and in no acute distress female sitting on the examination table with a pleasant, normal affect. She is alert and interactive. She has Herman type II skin. Cutaneous full body examination including the hair, scalp, face, eyelids, lips, neck, chest, back, abdomen, all four extremities, hands, feet, digits and nails was performed.The examination was normal with the addition of the following comments: - Right medial canthus and forehead with gritty erythematous papules - Scattered waxy, stuck-on growths on the temples, chest, and legs - Few reticulated brown macules in a photodistrubution. 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 Actinic keratoses near the right medial canthus and forehead. Reviewed premalignant nature of these skin lesions. Recommended destruction with cryotherapy, performed as described below. 2. Seborrheic keratoses. Reassurance provided concerning the benign nature of these lesions. No treatment indicated at this time. 3. Sun-damaged skin, overall mild. The nature of sun-induced photo-aging and skin cancers is discussed. Sun avoidance, protective clothing, and the use of 30-SPF sunscreens is advised. Observe closely for skin damage/changes, and call if such occurs. ABCDE of melanoma were reviewed. 4. Scar on upper back, no worrisome sequelae from prior radiation noted today. PROCEDURE NOTE Cryotherapy procedure note A total of 6 pre-malignant lesions at the following sites were destroyed with liquid nitrogen cryotherapy: right medial canthus and forehead. Risks of the procedure were discussed, including pain, blistering, possible infection, resultant hypo-or hyperpigmentation and possibility of incomplete resolution. Verbal consent was obtained prior to the procedure. Wound care was discussed. Patient shouldreturn if lesion fails to resolve with treatment. She will f/u in 1 year as planned or in the interim should problems arise. Duran Easley MD 06/21/2017 11:54 documented in this encounter Plan of Treatment Upcoming Encounters Date Type Department Care Team (Late st Contact Info) Description 05/19/2024 11:00 EST Office Visit [address], [facility] 2 [place] [address] Dane Rick MD [address] [place] [address] [address] [place] [phone] documented as of this encounter Visit Diagnoses Diagnosis Actinic keratoses- Primary Actinic keratosis Seborrheic keratoses Sun-damaged skin Other dermatitis due to solar radiation Scar Scar condition and fibrosis of skin documented in this encounter Care Teams Protective Services Case Worker Relationship Specialty Start Date End Date Otis Gee MD PCP - General 01/14/10 08/08/22 documented as of this encounter
--- OUTSIDE RECORDS SUMMARY | 2024-02-08 01:14 | XMS_ITS | Encounter Summary ---
Author Organization [facility] Address [address] [place] [address] Care Team Providers Care Director Medicaid Name Role Phone Otis Gee MD Primary Care Provider Unava ilable Reason for Visit * Reason Onset Date Comments Follow-up 03/03/2019 Encounter Details Date Type Department Care Team ([facility] st Contact Info) Description 03/03/[address] [facility] Orthopedics & Sport Medicine [address] [place] [address] Mary Kate Guy, RN [address] [facility] [address] [place] [address] Follow-up Social History Tobacco Use Types Packs/Day Years [...] encounter Miscellaneous Notes * Telephone Encounter - Damon Francis MD - 03/04/2019 1130 EST Thank you * Telephone Encounter - Mary Kate Guy RN - 03/03/2019 1326 EST Spoke with rehab - they have offered a couple of appts that the patient could not make due to transportation issues. They are still working on trying to have her seen before the . * Telephone Encounter - Mary Kate Guy RN - 03/03/2019 1325 EST ----- Message from Damon Francis MD sent at 02/28/2019 22:54 EST ----- Ms. Vizcaino said that she does not have a physical therapy visit until March 11. She also states she was seen last week. We need to look into reason why there is a hiatus. It is very possible that patient is confused. documented in this encounter Plan of Treatment Upcoming Encounters Date Type Department Care Team (Late st Contact Info) Description 05/19/2024 11:00 EST Office Visit [facility] Family Medicine [address], [address] [phone] Dane Rick MD [address] [place] [phone] documented as of this encounter Visit Diagnoses Not on filedocumented in this encounter Care Teams Director Medicaid Relationship Specialty Start Date End Date Otis Gee MD PCP - General 01/14/10 08/08/22 documented as of this encounter
--- OUTSIDE RECORDS SUMMARY | 2024-02-08 01:14 | XMS_ITS | Encounter Summary ---
Author Organization [facility] Address [address] [place] [address] Care Team Providers Care Regrinder Operator Name Role Phone Otis Gee MD Primary Care Provider Unava ilable Reason for Visit * Reason Comments Post-OP Follow Up Encounter Details Date Type Department Care Team ([facility] Contact Info) Description 02/28/2019 11:45 EST Office Visit [facility] Orthopedics & Sport Medicine [address] [place] [address] Damon Francis MD [address] [facility] [address] [place] [address] Traumatic complete tear of right rotator cuff, subsequent encounter (Primary Dx) Social History Tobacco Use Types [...] * Patient Instructions* Damon Francis MD - 02/28/2019 11:45 EST Continue with physical therapy. I will see if they can squeeze you in before March 11. If you donot hear from them next week, please call. Okay to discontinue using the sling. However, if you have a day with more pain or discomfort you might wear the sling for comfort. Work on shoulder mechanics at home. Follow your physical therapy instructions. documented in this encounter Progress Notes * Damon Francis MD - 02/28/2019 1145 EST PROBLEM: Right Rotator cuff repair SUBJECTIVE: Kenyatta Vizcaino is a 78 y.o. RHD female who is here today for follow up. Ms. Vizcaino comes in today for scheduled follow up of her 01/14/19 right shoulder arthroscopy with RTC repair and biceps tenotomy. Ms. Vizcaino states that she fell out of the car a couple of days ago. She feels her recovery is going well until she fell. She does feel that she has a setback although she states that the shoulder is getting better. She saw physical therapy last week. She states she is not due to see them againuntil 11 March. The past medical, family and social history have been reviewed in the patient chart. OBJECTIVE: There were no vitals taken for [...] Skin: warm and dry Msk: Right shoulder active motion is limited. She has early scapulothoracic recruitment. Active flexion and abduction are less than 90 degrees. Passive range of motion is significantly better although definitely uncomfortable raising the arm above shoulder height. She has marked weakness of the rotator cuff with a positive drop arm test. Neuro-vascularly: Sensation intact with good cap refill. ASSESSMENT: Ms. Vizcaino is now 6 weeks status post right rotator cuff repair. She did injure hershoulder a few days ago. Exam today is concerning for significant weakness of the rotator cuff although her pain is better. PLAN: May discontinue use of the sling. Continue to work with physical therapy. I will ask my office to contact the physical therapist to check on her therapy appointments. Patient does get somewhat confused and may have misunderstood instructions or heard the date for her visits. Follow up 4 weeks Without xrays This note was prepared using voice recognition software and the EMR. There may be inadvertent errors and omissions. Damon Francis MD 02/28/2019 documented in this encounter Plan of Treatment Upcoming Encounters Date Type Department Care Team (Late st Contact Info) Description 05/19/2024 11:00 EST Office Visit [facility] Medicine [address], [address] [place] [address] Dane Rick MD [address] [place] [address] [address] [place] [phone] documented as of this encounter Visit Diagnoses Diagnosis Traumatic complete tear of right rotator cuff, subsequent encounter- Primary documented in this encounter Discontinued Medications Medication Sig Discontinue Reason Start Date End Da te buPROPion (WELLBUTRIN SR) 150 mg SR tablet Take 1 Tab by mouth daily. Duplicate Therapy 02/28/2019 clopidogrel (PLAVIX) 75 mg tablet Take 1 Tab by mouth daily. Therapy completed 01/03/2013 02/28/2019 methocarbamol (ROBAXIN) 500 mg tablet 1-2 tab(s) orally every 6-8 hours as needed for spasm Therapy completed 02/28/2019 oxyCODONE (ROXICODONE) 5 mg immediate release tablet Take 5 mg by mouth. every 6-8 hours PRN for pain Therapy completed 02/28/2019 metoprolol XL (TOPROL-XL) 50 mg tablet Take 50 mg by mouth daily. Alternate therapy 02/28/2019 documented as of this encounter Care Teams Regrinder Operator Relationship Specialty Start Date End Date Otis Gee MD PCP - General 01/14/10 08/08/22 documented as of this encounter
--- OUTSIDE RECORDS SUMMARY | 2024-02-08 01:14 | XMS_ITS | Encounter Summary ---
Author Organization [facility] Address [address] [place] [address] Care Team Providers Care Senior Accountant Cpa Name Role Phone Unavailable Primary Care Provider Unavailabl e Encounter Details Date Type Department Care Team ([facility] Contact Info) Description 01/09/2008 Before PRISM Converted Visit ([place]) [facility] - [facility] conversion [address] [place] [address] Yared Romero MD [address] [phone] Social History Tobacco Use Types Packs/Day Years Used Date Smoking Tobacco: Never Assessed Sex and Gender Information Value Date Recorded Sex Assigned at Not on file Gender Identity Female 02/28/2019 7:38 EST Sexual Orientation Not on file documented as of this encounter Procedure Notes * Yared Romero MD - 10/24/2008 0654 EDT DIVISION OF OPHTHALMOLOGY [facility]ING RO[facility]PER[facility] PROCEDURE REPORT SERVICE DATE: 01/09/2008 Yared Romero MD ASSISTANTS: He Amin, Julia Valentino. PROCEDURE Bilateral lower lid ectropion repair. CPT 93714-83 PREPROCEDURE DIAGNOSIS Bilateral lower lid ectropion. POSTPROCEDURE DIAGNOSIS Bilateral lower lid ectropion. ESTIMATED BLOOD LOSS Less than 1 mL. COMPLICATIONS None. ANESTHESIA Local. PATHOLOGY SENT None sent. 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 DESCRIPTION OF PROCEDURE After informed consent was obtained, the patient was brought to the clinic procedure room in stablecondition and placed in a supine position. An equal mixture of 0.75% bupivacaine, 2% Xylocaine withepinephrine, and buffered saline was injected into both lateral canthal regions until adequate anesthesia was obtained. The patient was prepped and draped in the standard surgical fashion. Attention was turned to the right side, where a lateral canthotomy and cantholysis of the inferior weston of the lateral canthal tendon was created with a #15 blade and straight iris scissors. Hemostasis was obtained with electrocautery as needed. The overlap technique was used to estimate the amount of lateral tarsal strip to be created. The lid margin skin and anterior lamellar tissues were excised using Manuel scissors. The lower lid retractors were then disinserted from the lateral tarsal strip using Manuel scissors. Hemostasis was obtained with electrocautery as needed. A single 5-0 PDS suture was then used to anchorthe lateral tarsal strip to the periosteum adjacent to Whitnall's tubercle. The identical procedure was performed on the left side. Lid contour and height were adjusteduntil symmetric and acceptable, and the sutures were tied down and cut. The knots were buried and the lateral commissures reformed with buried 6-0 Vicryl sutures. The skin was closed with multiple interrupted 6- 0 fast absorbing gut sutures. Erythromycin ointment was placed over the incision sites. The patient tolerated the procedure well and left the procedure room in stable condition. Signed by Yared Romero MD 01/14/2008 12:19 Yared Romero MD D: - Yared Romero MD - GLT Job ID: [id number] Doc ID: [id number] cc: documented in this encounter Plan of Treatment Upcoming Encounters Date Type Department Care Team (Late st Contact Info) Description 05/19/2024 11:00 EST Office Visit [address], [address] [address] Dane Rick MD [address] [place] [phone] documented as of this encounter Visit Diagnoses Not on filedocumented in this encounter
--- OUTSIDE RECORDS SUMMARY | 2024-02-08 01:14 | XMS_ITS | Encounter Summary ---
Author Organization [facility] Address [address] [place] [address] Care Team Providers Care Yard Spotter Name Role Phone Otis Gee MD Primary Care Provider Unava ilable Encounter Details Date Type Department Care Team ([facility] Contact Info) Description 07/12/2015 Historical Results Only [facility] Radiology Results [address] [place] [address] Sylvie Simon MD [address] [place] [address] Social History Tobacco Use Types Packs/Day Years Used Date Smoking Tobacco: Never Alcohol Use Standard Drinks/Week Comments Yes 0 (1 standard drink = 0.6 oz pur e alcohol) occasionally Sex and Gender Information Value Date Recorded Sex Assigned at Not on file Gender Identity Female 02/28/2019 7:38 EST Sexual Orientation Not on file documented as of this encounter Plan of Treatment Upcoming Encounters Date Type Department Care Team ([facility] Contact Info) Description 05/19/2024 11:00 EST Office Visit [facility] Family Medicine [facility] [address] [facility], [address] [place] [address] Dane Rick MD [address] [facility] [address] [place] [address] documented as of this encounter Procedures Procedure Name Priority Date/Time Associated Diagnosis Comments NM CARD SPECT NUCLEAR STRESS 07/12/2015 9:36 EDT documented in this encounter Results * NM CARD SPECT NUCLEAR STRESS (07/12/2015 9:36 EDT) Anatomical Region Laterality Modality Chest Nuclear Stress 07/12/2015 9:36 EDT Narrative 07/13/2015 10:34 EDT ? EXAM: NUCLEAR MEDICINE/NUCLEAR STRESS GIANA EX. D/ (0936) ? CLINICAL INFORMATION: ? Hx CAD 9Previous stent) presents w/ chest ? *[facility]* ? *[facility]* ? [address] ? [place] [address] ? Myocardial Perfusion Imaging - SPECT ? Regadenoson ? Date of study: ??07/12/2015 ? (Report amended ) ? *PATIENT PRESENTATION* ? Height: ? 152.4cm (60in ) ? Blood Pressure: ? Weight: ? 90.9kg (200lb ) ? BSA: ?2.01m S 2 ? Ordering physician: Sylvie Simon ? Impressions: ??Normal myocardial perfusion and contraction after ? pharmacological stress. ? Summary: ? 1. Myocardial perfusion imaging: No myocardial perfusion defects ?noted. ? 2. The calculated left ventricular ejection fraction after stress: ?75%. LV global systolic function is normal. No left ventricular ?regional motion abnormality. ? 3. Stress ECG conclusions: The stress ECG is negative. ? Indication: ?? 786.50 Chest Pain, Unspecified, Appropriate Use ? Criteria: A ? (Appropriate). ? History: ??ADMITTED TO [address] [place] [id number] 07/09/15 WITH CHEST TIGHTNESS, DIZZINESS, ? SOB AND ANKLE SWELLING. CHEST TIGHTNESS WORSE WITH EXERTION. TROPS ? NEGATIVE X 3, ECG WITH SINUSBRADY, NO ACUTE CHANGES, CXR NORMAL. ? 2013- STENT X 1. ? Risk factors: ??Family history of coronary artery disease. ? Hypertension. Dyslipidemia. ? MEDS: METOPROLOL 50 MG BID, LOVASTATIN 50 MG, LORAZEPAM, FUROSEMIDE 20 ? MG, BUPROPION. ? ALLERGIES: PCN, METRONIDAZOLE, AMOXIL. ? Imaging Technique: ? PAGE 1 ? Signed Report ? (CONTINUED) ? Protocol: ??Regadenoson. ? Acquisition: ?? Gated SPECT; 1 day - rest/stress. ?The patient was ? imaged in the supine position. Attenuation correction used. ? Isotope administration: ? - Rest. Tc[99m]-sestamibi. Injection to stress time: 00:45. ? - Stress. Tc[99m]-sestamibi. 1-2 min before end of exercise ? Baseline ECG: ??NSR- 65 BPM ??Normal sinus rhythm. ??Frequent atrial ? ectopy. ? Stress protocol: ? +--------+--+ + + ? !Stage ?? !HR!BP (mmHg) ??!Comments ? ! ? +--------+--+ + + ? !Baseline!65!131/79 (96)! ! ? +--------+--+ + + ? !1 min ?? !5 ! !Inject Regadenoson.! ? +--------+--+ + + ? !2 min ?? !87!149/66 (94)! ! ? +--------+--+ + + ? !3 min ?? !84! ! ! ? +--------+--+ + + ? !4 min ?? !84!150/65 (93)! ! ? +--------+--+ + + ? !5 min ?? !79! ! ! ? +--------+--+ + + ? !6 min ?? !83!148/62 (91)! ! ? +--------+--+ + + ? !7 min ?? !82! ! ! ? +--------+--+ + + ? * ? Stress results: ??There is a normal resting blood pressure. Normal ? blood pressure response to adenosine. The rate-pressure product for ? the peak heart rate and blood pressure was 02135us Hg/min. ? Stress ECG: ??RESTING LEXISCAN STUDY ? NO CHEST PAIN ? NO ECTOPY ? NO ISCHEMIC ECG CHANGES ??The stress ECG is negative. ? Myocardial perfusion: ?? Imaging information: gated. The image quality ? was good. Left ventricular size is normal. No myocardial perfusion ? defects noted. ? Ventricular Function (Wall Motion): ?? The calculated left ventricular ? ejection fraction after stress: 75%. LV global systolic function is ? normal. No left ventricular regional motion abnormality. ? Study data: ??Rob Posey MD supervised and was readily available ? during the procedure. This study was interpreted by [facility] ? [facility]. ? Study status: Routine. ? Consent: ??The risks, benefits, and alternatives to the procedure were ? explained to the patient and informed consent was obtained. ? PAGE 2 ? Signed Report ? (CONTINUED) ? Procedure: ??Initial setup. A baseline ECG was recorded. Surface ECG ? leads and manual cuff blood pressure measurements were monitored. ? Heart sounds: Normal. ? Lung sounds: Normal. ? Regadenoson stress test. Stress testing was performed, with ? regadenoson by intravenous bolus, for a total dose of 0.4mgover ? 10.00sec, followed by a 5ml saline flush. The infusion was terminated ? due to per protocol. ? Study completion: ??All catheters inserted during the procedure were ? removed. The patient tolerated the procedure well and was discharged ? from the lab. ? Discharge: ??The patient left the laboratory in stable condition. ? Birthdate: Patient birthdate: 1940. ??Sex: ??Gender: female. ? Study date: Study date: 12-Jul-2015. ? Signature Documentation: ? - The imaging portion of this study was interpreted by Nuclear ? [employer] Rob Posey MD. ? - The Stress ECG portion of this study was interpreted by Rob ? MD Taty. ? Electronically signed by ? Rob Posey ? 07/12/2015 12:00 ?Reported By: Rob Posey MD ? CC: ? Transcribed Date/Time: 07/13/2015 (1034) ? Stock Control Clerk: UTE ? Printed Date/Time: 09/12/2018 (1637) ? PAGE 3 ? Signed Report ? Procedure Note Rob Posey MD - 02/05/2019 EXAM: NUCLEAR MEDICINE/NUCLEAR STRESS GIANA EX. D/ (0936) CLINICAL INFORMATION: Hx CAD 9Previous stent) presents w/ chest *[facility]* *[facility]* [address] [place] [address] Myocardial Perfusion Imaging - SPECT Regadenoson Date of study: 07/12/2015 (Report amended ) *PATIENT PRESENTATION* Height: 152.4cm (60in ) Blood Pressure: Weight: 90.9kg (200lb ) BSA: 2.01m S 2 Ordering physician: Sylvie Simon Impressions: Normal myocardial perfusion and contraction after pharmacological stress. Summary: 1. Myocardial perfusion imaging: No myocardial perfusion defects noted. 2. The calculated left ventricular ejection fraction after stress: 75%. LV global systolic function is normal. No left ventricular regional motion abnormality. 3. Stress ECG conclusions: The stress ECG is negative. Indication: 786.50 Chest Pain, Unspecified, Appropriate Use Criteria: A (Appropriate). History: ADMITTED TO [address] [place] [id number] 07/09/15 WITH CHEST TIGHTNESS,DIZZINESS, SOB AND ANKLE SWELLING. CHEST TIGHTNESS WORSE WITH EXERTION. TROPS NEGATIVE X 3, ECG WITH SINUSBRADY, NO ACUTE CHANGES, CXR NORMAL. 2013- STENT X 1. Risk factors: Family history of coronary artery disease. Hypertension. Dyslipidemia. MEDS: METOPROLOL 50 MG BID, LOVASTATIN 50 MG, LORAZEPAM, [id number] MG, BUPROPION. ALLERGIES: PCN, METRONIDAZOLE, AMOXIL. Imaging Technique: PAGE 1 Signed Report (CONTINUED) Protocol: Regadenoson. Acquisition: Gated SPECT; 1 day - rest/stress. The patient was imaged in the supine position. Attenuation correction used. Isotope administration: - Rest. Tc[99m]-sestamibi. Injection to stress time: 00:45. - Stress. Tc[99m]-sestamibi. 1-2 min before end of exercise Baseline ECG: NSR- 65 BPM Normal sinus rhythm. Frequent atrial ectopy. Stress protocol: +--------+--+ + + !Stage !HR!BP (mmHg) !Comments ! +--------+--+ + + !Baseline!65!131/79 (96)! ! +--------+--+ + + !1 min !5 ! !Inject Regadenoson.! +--------+--+ + + !2 min !87!149/66 (94)! ! +--------+--+ + + !3 min !84! ! ! +--------+--+ + + !4 min !84!150/65 (93)! ! +--------+--+ + + !5 min !79! ! ! +--------+--+ + + !6 min !83!148/62 (91)! ! +--------+--+ + + !7 min !82! ! ! +--------+--+ + + * Stress results: There is a normal resting blood pressure. Normal blood pressure response to adenosine. The rate-pressure product for the peak heart rate and blood pressure was 08013ju Hg/min. Stress ECG: RESTING LEXISCAN STUDY NO CHEST PAIN NO ECTOPY NO ISCHEMIC ECG CHANGES The stress ECG is negative. Myocardial perfusion: Imaging information: gated. The imagequality was good. Left ventricular size is normal. No myocardial perfusion defects noted. Ventricular Function (Wall Motion): The calculated leftventricular ejection fraction after stress: 75%. LV global systolic function is normal. No left ventricular regional motion abnormality. Study data: Rob Posey MD supervised and was readilyavailable during the procedure. This study was interpreted by [facility]. Study status: Routine. Consent: The risks, benefits, and alternatives to the procedurewere explained to the patient and informed consent was obtained. PAGE 2 Signed Report (CONTINUED) Procedure: Initial setup. A baseline ECG was recorded. Surface ECG leads and manual cuff blood pressure measurements were monitored. Heart sounds: Normal. Lung sounds: Normal. Regadenoson stress test. Stress testing was performed, with regadenoson by intravenous bolus, for a total dose of 0.4mgover 10.00sec, followed by a 5ml saline flush. The infusion wasterminated due to per protocol. Study completion: All catheters inserted during the procedure were removed. The patient tolerated the procedure well and wasdischarged from the lab. Discharge: The patient left the laboratory in stable condition. Birthdate: Patient birthdate: 1940. Sex: Gender: female. Study date: Study date: 12-Jul-2015. Signature Documentation: - The imaging portion of this study was interpreted by [facility] [employer] Rob Posey MD. - The Stress ECG portion of this study was interpreted by Rob Posey MD. Electronically signed by Rob Posey 07/12/2015 12:00 Reported By: Rob Posey MD CC: Transcribed Date/Time: 07/13/2015 (1034) Stock Control Clerk: UTE Printed Date/Time: 09/12/2018 (4326) PAGE 3 Signed Report Sylvie Simon MD CARDIAC NM ORDERA BLES documented in this encounter Visit Diagnoses Not on filedocumented in this encounter Care Teams Yard Spotter Relationship Specialty Start Date End Date Otis Gee MD PCP - General 01/14/10 08/08/22 documented as of this encounter
--- OUTSIDE RECORDS SUMMARY | 2024-02-08 01:14 | XMS_ITS | Encounter Summary ---
Author Organization [facility] Address [address] [place] [address] Care Team Providers Care Rail Car Loader Name Role Phone Unavailable Primary Care Provider Unavailabl e Encounter Details Date Type Department Care Team ([facility] Contact Info) Description 12/20/2007 Before PRISM Converted Visit (Maple) [facility] - Maple conversion [address] [place] [address] Yared Romero MD [address] [address] Social History Tobacco Use Types Packs/Day Years Used Date Smoking Tobacco: Never Assessed Sex and Gender Information Value Date Recorded Sex Assigned at Not on file Gender Identity Female 02/28/2019 7:38 EST Sexual Orientation Not on file documented as of this encounter Consult Notes * Yared Romero MD - 10/24/2008 1243 EDT DIVISION OF OPHTHALMOLOGY - [facility] - 12/20/2007 Otis Gee MD [facility] [address] [place] [address], [address] [place] [address] Gee: I had the pleasure of seeing Kenyatta Vizcaino, who, as you know, is a 67-year-old woman with a 2-3 year history of decreased superior visual gutierrez due to her drooping upper lids. The patient states that her symptoms have gradually been worsening over time. She states that she notices significant superior visual field improvement after she lifts her eyelids. examination, visual acuities were 20/20 in both eyes. There was no afferent pupillary defect, extraocular motility was full, and intraocular tensions were within normal limits. External examination revealed 3+ brow ptosis, as well as 3 to 4+ bilateral upper lid dermatochalasis with fat prolapse. Margin reflex distances of both upper lids were approximately 3 mm. Levator function was within normallimits, there was no lagophthalmos, and the patient had a good Bellreflex bilaterally. Examination of the lower lids revealed 3+ lateral canthal tendon laxity. There was approximately 1 mm of inferior scleral show bilaterally. Anterior segment examination revealed 1+ punctate epithelial erosions bilaterally. The remainder of the anterior segment examination was within normal limits. Goldmann visual field testing revealed improvement from 24 to 53 degrees on the right and 22 to 48 degrees on theleft with the upper lids taped, respectively. 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 I have recommended a bilateral lower lid ectropion repair as well as a bilateral brow lifting procedure andupper lid blepharoplasty in order to reduce her visual field obstruction. Various approaches to performing the brow lift were discussed with the patient, including direct approach via suprabrow or coronal incisions as well as the endoscopic approach withimplants. The patient prefers to have an endoscopic approach with implants to achieve her brow lift. Risks, benefits, and alternatives to surgery were discussed with the patient, including observation, pain, scar, bleeding infection, alopecia, overcorrection, undercorrection, asymmetry, loss of vision, poor cosmetic outcome, dry eye syndrome, and need for additional surgery. The patient understands the risks, benefits, and alternatives and would like to proceed with surgery in the near future. Thank you very much for allowing me to participate in the care of this patient. If you have any questions or concerns, please do not hesitate to contact me. Sincerely, Signed by Yared Romero MD 01/10/2008 14:47 Yared Romero MD - Yared Romero MD - KAREN Job ID: [id number] Doc ID: [id number] cc: Otis Gee MD documented in this encounter Plan of Treatment Upcoming Encounters Date Type Department Care Team (Late st Contact Info) Description 05/19/2024 11:00 EST Office Visit [facility] Family Medicine [address], [address] [address] Dane Rick MD [address] [place] [phone] documented as of this encounter Visit Diagnoses Not on filedocumented in this encounter
--- OUTSIDE RECORDS SUMMARY | 2024-02-08 01:14 | XMS_ITS | Encounter Summary ---
Author Organization [facility] Address [address] [place] [address] Care Team Providers Care Egg Setter Name Role Phone Otis Gee MD Primary Care Provider Unava ilable Encounter Details Date Type Department Care Team (Late Contact Info) Description 01/14/2019 Results Only [facility] Lab - [facility] [address] [place] [address] Damon Francis MD [address] [facility] [address] [place] [address] Social History Tobacco Use Types Packs/Day [...] [facility] [address] [facility], [address] [place] [address] Dane Rick MD [address] [facility] [address] [place] [address] Pending Results Name Type Priority Associated Diagnoses Date /Time [facility] Lab Routine 01/14/2019 15:08 EDT documented as of this encounter Procedures Procedure Name Priority Date/Time Associated Diagnosis Comments [facility] Routine 01/14/2019 15:08 EDT documented in this encounter Visit Diagnoses Not on filedocumented in this encounter Care Teams Egg Setter Relationship Specialty Start Date End Date Otis Gee MD PCP - General 01/14/10 08/08/22 documented as of this encounter
--- OUTSIDE RECORDS SUMMARY | 2024-02-08 01:14 | XMS_ITS | Encounter Summary ---
Author Organization [facility] Address [address] [place] [address] Care Team Providers Care Director Operating Name Role Phone Otis Gee MD Primary Care Provider Unava ilable Encounter Details Date Type Department Care Team (Late Contact Info) Description 04/15/2019 Results Only [facility] Lab - Main [place] [address] [place] [address] Janell Price MD Social History Tobacco Use Types Packs/Day [...] Upcoming Encounters Date Type Department Care Team ([facility] Contact Info) Description 05/19/2024 11:00 EST Office Visit [facility] Family Medicine [address], [facility] [address] [place] [id number] Dane Rick MD [address] [place] [address] [address] [place] [address] documented as of this encounter Procedures Procedure Name Priority Date/Time Associated Diagnosis Comments COMPLETE BLOOD COUNT WITH DIFFERENTIAL (AUTO) Routine 04/15/2019 19:00 EST C REACTIVE PROTEIN Routine 04/15/2019 19 :00 EST COMPREHENSIVE METABOLIC PANEL (CMP) Routine 04/15/2019 19:00 EST documented in this encounter Results * (ABNORMAL) C REACTIVE PROTEIN (04/15/2019 19:00 EST) Pathologist [facility] C-Reactive Protein 11.4(H) <10.0 mg/L 04/15/2019 19:46 [facility] 04/15/2019 19:0 0 EST 04/15/2019 19:26 EST Janell Price MD CHEMISTRY & BLOOD GAS ORDERABLES [facility] * (ABNORMAL) COMPREHENSIVE METABOLIC PANEL (CMP) (04/15/2019 19:00 EST) Pathologist [facility] Albumin % 4.4 3.4 - 4.9 g/dL 04/15/2019 19:46 [facility] ALKALINE PHOSPHATASE - [facility] 106 38 - 126 U/L 04/15/2019 19:46 [facility] BILIRUBIN TOTAL 0.4 0.2 - 1.3 mg/dL 04/15/2019 19:46 [facility] BUN - [facility] 17 10 - 26 mg/dL 04/15/2019 19:46 [facility] CALCIUM - [facility] 11.4(H) 8.5 - 10.5 mg/dL 04/15/2019 19:46 [facility] Chloride 100 96 - 110 mmol/L 04/15/2019 19:46 [facility] CO2 Total 30 22 - 32 mEq/L 04/15/2019 19:46 [facility] CREATININE 0.89 0.52 - 1.04 mg/dL 04/15/2019 19:46 [facility] eGFR >60 04/15/2019 19:46 [facility] Comment: Chronic renal impairment is defined as GFR <60 Multiply result by 1.210 for patients. eGFR calculated using the IDMS-traceable MDRD Study Equation. ??(effective 02/02/2014) Anion Gap 8 0 - 18 04/15/2019 19:46 [facility] GLUCOSE - [facility] 89 70 - 100 mg/dL 04/15/2019 19:46 [facility] Potassium 4.0 3.5 - 5.0 mEq/L 04/15/2019 19:46 [facility] Sodium 138 136 - 145 mEq/L 04/15/2019 19:46 [facility] TOTAL PROTEIN - [facility] 7.8 6.2 - 8.2 gm/dL 04/15/2019 19:46 [facility] SGOT/AST - [facility] 23 14 - 36 U/L 04/15/2019 19:46 [facility] SGPT/ALT - [facility] 22 9 - 52 U/L 0 19:46 [facility] 04/15/2019 19:0 0 EST 04/15/2019 19:26 EST Janell Price MD CHEMISTRY & BLOOD GAS ORDERABLES [facility] * (ABNORMAL) COMPLETE BLOOD COUNT WITH DIFFERENTIAL (AUTO) (04/15/2019 19:00 EST) Gran # 5.3 2.2 - 8.85 10e3/uL 04/15/2019 19:36 [facility] BASO # - [facility] 0.12(H) 0.01 - 0.11 10e/uL 04/15/2019 19:36 [facility] BASO % - [facility] 1 0 - 2 % 04/15/2019 19:36 [facility] EOS # - [facility] 0.63(H) 0.03 - 0.61 10e3/ul 04/15/2019 19:36 [facility] EOS % - [facility] 7(H) 0 - 5 % 04/15/2019 19:36 [facility] GRAN % - [facility] 55.6 40 - 80 % 04/15/2019 19:36 [facility] HEMATOCRIT - [facility] 42.9 34.9 - 44.4 % 04/15/2019 19:36 [facility] HEMOGLOBIN - [facility] 14.2 11.6 - 15.2 g/dl 04/15/2019 19:36 [facility] IG# - [facility] 0.03 0 - 0.7 10e3/uL 04/15/2019 19:36 [facility] IG% - [facility] 0.3 0 - 0.9 % 04/15/2019 19:36 [facility] LYMPH # - [facility] 2.7 1.09 - 3.3 10e3/ul 04/15/2019 19:36 [facility] LYMPH% - [facility] 28.6 20 - 40 % 04/15/2019 19:36 [facility] MEAN CORPUSCULAR HGB - [facility] 29.5 26.7 - 33.3 pg 04/15/2019 19:36 [facility] MEAN CORPUSCULAR HGB CONC - [facility] 33.1 32.1 - 35.9 g/dL 04/15/2019 19:36 [facility] MEAN CELL VOLUME - [facility] 89.2 81 - 98 fl 04/15/2019 19:36 [facility] MONO # - [facility] 0.7 0.1 - 0.8 10e3/uL 04/15/2019 19:36 [facility] MONO% - [facility] 7.6 0 - 12 % 04/15/2019 19:36 [facility] PLATELET COUNT 336 141 - 377 10e3/ul 04/15/2019 19:36 [facility] RED BLOOD COUNT - [facility] 4.81 3.86 - 5.04 10e3/ul 04/15/2019 19:36 [facility] RED CELL DISTRI WIDTH - [facility] 13.0 <14.7 % 04/15/2019 19:36 [facility] WHITE BLOOD COUNT - [facility] 9.5 4.0 - 12.4 10e3/ul 04/15/2019 19:36 [facility] 04/15/2019 19:0 0 EST 04/15/2019 19:26 EST Janell Price MD HEMATOLOGY & PF4 O RDERABLES [facility] documented in this encounter Visit Diagnoses Not on filedocumented in this encounter Care Teams Director Operating Relationship Specialty Start Date End Date Otis Gee MD PCP - General 01/14/10 08/08/22 documented as of this encounter
--- OUTSIDE RECORDS SUMMARY | 2024-02-08 01:14 | XMS_ITS | Encounter Summary ---
Author Organization [facility] Address [address] [place] [address] Care Team Providers Care Funeral Home Manager Name Role Phone Unavailable Primary Care Provider Unavailabl e Encounter Details Date Type Department Care Team (Late st Contact Info) Description 03/22/2000 9:45 EST - 03/22/2000 11:59 EST Hospital Encounter [facility] [address] [place] [address] Jax Richards MD [address] [facility], [address] [place] [id number] Unknown, Provider, Discharge Disposition: Auto Discharge Social History Tobacco Use Types Packs/Day Years Used Date Smoking Tobacco: Never Assessed Sex and Gender Information Value Date Recorded Sex Assigned at Not on file Gender Identity Female 02/28/2019 7:38 EST Sexual Orientation Not on file documented as of this encounter Discharge Disposition Disposition Code Departure Means Destination Auto Discharge documented in this encounter Plan of Treatment Upcoming Encounters Date Type Department Care Team (Late st Contact Info) Description 05/19/2024 11:00 EST Office Visit [facility] Family Medicine [address], [facility] 2 [place] [address] Dane Rick MD [address] [facility] [address] [place] [phone] documented as of this encounter Procedures Procedure Name Priority Date/Time Associated Diagnosis Comments CYTOPATHOLOGY Routine 03/22/2000 0:00 EST documented in this encounter Results * CYTOPATHOLOGY (03/22/2000 0:00 EST) Pathology Report: CYTOPATHOLOGY REPORT Reports generated via electronic interface contain original data; however they are lacking the format of the original report. Caution should be taken when reading/interpreti ng unformatted reports. Name: ? ANDRIA LOPEZ ? Accession #: ? [id number] : ? 1940 (Age: 59) ??F ?Collect Date: ? 03/22/2000 Location: ? [facility] ? Receive Date: ? 03/28/2000 Provider: ?JAX RICHARDS MD Copy to: ? Specimen/Source: ?ThinPrep Pap Test, Cervix/Endocervix Last Menstrual Period: ? S/P Menopause. Previous Gynecologic Pathology: ? Yes: history unknown ? SPECIMEN ADEQUACY ? Satisfactory for evaluation. GENERAL CATEGORIZATION ? Benign Cellular Changes DESCRIPTIVE DIAGNOSIS ? Reactive cellular changes associated with inflammation present (includes repair). Atrophy with inflammation (Atrophic Vaginitis). ? Document reviewed and electronically signed by: ? Maria G Pederson MD ? Report Date: ??04/11/2000 08:27 End of Report [facility] K[facility]D 03/22/2000 03/28/2000 Jax Richards MD PATHOLOGY ORDERABL ES PRINCE KIDD [address] [place] [address] documented in this encounter Visit Diagnoses Not on filedocumented in this encounter
--- OUTSIDE RECORDS SUMMARY | 2024-02-08 01:14 | XMS_ITS | Encounter Summary ---
Author Organization [facility] Address [address] [place] [address] Care Team Providers Care Servomechanism Designer Name Role Phone Otis Gee MD Primary Care Provider Joseph easley Encounter Details Date Type Department Care Team (Latest Contact Info) Description 01/14/2019 13:10 EDT - 01/14/2019 23:59 EDT Hospital Encounter [facility] [address] [place] [address] Unknown, Provider, MD Discharge Disposition: Home or Self Care Social [...] mg by mouth every 48 hours. 06/29/2022 buPROPion (WELLBUTRIN SR) 150 mg SR tablet Take 150 mg by mouth 2 times daily. 5 12/11/2018 02/10/2019 clopidogrel (PLAVIX) 75 mg tablet Take 1 Tab by mouth daily. 30 Tab 11 01/03/2013 02/28/2019 furosemide (LASIX) 20 mg tablet Take 20 mg by mouth daily. 07/24/2019 LORazepam (ATIVAN) 0.5 mg tablet Take 0.5 mg by mouth 3 times daily as needed. 06/08/2016 05/06/2019 losartan (COZAAR) 50 mg tablet Take 50 mg by mouth daily. 04/14/2019 lovastatin (MEVACOR) 20 mg tablet Take 20 mg by mouth daily. 07/24/2019 metoprolol XL (TOPROL-XL) 50 mg tablet Take 50 mg by mouth daily. 02/28/2019 documented as of this encounter Discharge Disposition Disposition Code Departure Means Destination Home or Self Long Term documented in this encounter Plan of Treatment Upcoming Encounters Date Type Department Care Team (Late st Contact Info) Description 05/19/2024 11:00 EST Office Visit [facility] Family Medicine [address], [facility] 2 [place] [address] Dane Rick MD [address] [place] [phone] documented as of this encounter Visit Diagnoses Not on filedocumented in this encounter Care Teams Servomechanism Designer Relationship Specialty Start Date End Date Otis Gee MD PCP - General 01/14/10 08/08/22 documented as of this encounter
--- OUTSIDE RECORDS SUMMARY | 2024-02-08 01:14 | XMS_ITS | Encounter Summary ---
Author Organization [facility] Address [address] [place] [address] Care Team Providers Care Rn Ortho Name Role Phone Otis Gee MD Primary Care Provider Unava ilable Encounter Details Date Type Department Care Team ([facility] [place] [facility] Contact Info) Description 07/09/2015 Historical Results Only [facility] Radiology Results [address] [place], [place] [phone] Dylon Marte MD Social History Tobacco Use Types Packs/Day [...] Upcoming Encounters Date Type Department Care Team ([facility] [place] [facility] Contact Info) Description 05/19/2024 11:00 EST Office Visit [facility] Family Medicine [facility] [place] [address] [facility], [place] [address] [place], [place] [phone] Dane Rick MD [address] [place] [address] [address] [place] [phone] documented as of this encounter Procedures Procedure Name Priority Date/Time Associated Diagnosis Comments XR CHEST 2 VIEWS 07/09/2015 14:3 2 EDT documented in this encounter Results * XR CHEST 2 VIEWS (07/09/2015 14:32 EDT) Anatomical Region Laterality Modality Other 07/09/2015 14:3 2 EDT Narrative 07/09/2015 14:36 EDT ? EXAM: RADIOLOGY/CHEST (PA ?? LAT) ?EX. D/ (1423) ? CLINICAL INFORMATION: ? CP/DYSPNEA ? Indication: CP/DYSPNEA. ? Comparison: Chest x-ray 12/28/2014. ? Technique: 2 views of the chest were obtained. ? Findings: The heart is slightly enlarged. The pulmonary vasculature ? is within normal limits. The lungs are clear. No pleural effusion or ? pneumothorax is seen. There are degenerative changes within the ? thoracic spine. ? Impression: ? 1. Mild cardiomegaly. ? REPORT SIGNED IN OTHER VENDOR SYSTEM 07/09/2015 ?Reported By: Kai Duff MD ? CC: ? Transcribed Date/Time: 07/09/2015 (1436) ? Healthcare Interpreter: ? Printed Date/Time: 09/12/2018 (3777) ? PAGE 1 ? Signed Report ? Procedure Note Kai Duff MD - 02/05/2019 EXAM: RADIOLOGY/CHEST (PA LAT) EX. D/ (1423) CLINICAL INFORMATION: CP/DYSPNEA Indication: CP/DYSPNEA. Comparison: Chest x-ray 12/28/2014. Technique: 2 views of the chest were obtained. Findings: The heart is slightly enlarged. The pulmonary vasculature is within normal limits. The lungs are clear. No pleural effusionor pneumothorax is seen. There are degenerative changes within the thoracic spine. Impression: 1. Mild cardiomegaly. REPORT SIGNED IN OTHER VENDOR SYSTEM 07/09/2015 Reported By: Kai Duff MD CC: Transcribed Date/Time: 07/09/2015 (1430) Healthcare Interpreter: Printed Date/Time: 09/12/2018 (4157) PAGE 1 Signed Report Dylon Marte MD IMG DIAGNOSTIC IMAGI NG ORDERABLES documented in this encounter Visit Diagnoses Not on filedocumented in this encounter Care Teams Rn Ortho Relationship Specialty Start Date End Date Otis Gee MD PCP - General 01/14/10 08/08/22 documented as of this encounter
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
--- OUTSIDE RECORDS SUMMARY | 2024-02-08 01:14 | XMS_ITS | Encounter Summary ---
Author Organization [facility] Address [address] [place] [address] Care Team Providers Care Vascular Physician Name Role Phone Otis Gee MD Primary Care Provider Joseph easley Encounter Details Date Type Department Care Team (Latest Contact Info) Description 07/09/2015 9:56 EDT - 07/09/2015 23:59 EDT Hospital Encounter [facility] [address] [place] [address] Unknown, Provider, Discharge Disposition: Home or Self Care Social [...] mg by mouth every 48 hours. 06/29/2022 clopidogrel (PLAVIX) 75 mg tablet Take 1 Tab by mouth daily. 30 Tab 11 01/03/2013 02/28/2019 furosemide (LASIX) 20 mg tablet Take 20 mg by mouth daily. 07/24/2019 losartan (COZAAR) 50 mg tablet Take 50 mg by mouth daily. 04/14/2019 lovastatin (MEVACOR) 20 mg tablet Take 20 mg by mouth daily. 07/24/2019 metoprolol XL (TOPROL-XL) 50 mg tablet Take 50 mg by mouth daily. 02/28/2019 documented as of this encounter Discharge Disposition Disposition Code Departure Means Destination Home or Self Fpc documented in this encounter Plan of Treatment Upcoming Encounters Date Type Department Care Team ( st Contact Info) Description 05/19/2024 11:00 EST Office Visit [address], [facility] 2 [place] [address] Dane Rick MD [address] [place] [phone] documented as of this encounter Visit Diagnoses Not on filedocumented in this encounter Care Teams Vascular Physician Relationship Specialty Start Date End Date Otis Gee MD PCP - General 01/14/10 08/08/22 documented as of this encounter
--- OUTSIDE RECORDS SUMMARY | 2024-02-08 01:14 | XMS_ITS | Encounter Summary ---
Author Organization [facility] Address [address] [place] [address] Care Team Providers Care Director Supply Name Role Phone Otis Gee MD Primary Care Provider Elisabet Mathews RN Unavailable [phone] Vicky Chamberlain Unavailable [phone] Dane Rick MD Primary Care Provider [phone] Leticia Lieberman Unavailable Mendoza Guzmán MD Unavailable [phone] Encounter Details Date Type Department Care Team (Late st Contact Info) Description 04/15/2019 Results Only Imaging [facility] Radiology Results [address] [place], [place] [id number] Janell Price MD Social History Tobacco Use [...] Office Visit [facility] Family Medicine - [place] [address] [place] [address] Dane Rick MD [address] [facility] [address] [place] [address] documented as of this encounter Procedures Procedure Name Priority Date/Time Associated Diagnosis Comments XR FOOT LEFT 3 OR MORE VIEWS 04/15/2019 21:13 EST XR TIBIA FIBULA LEFT 2 VIEWS 04/15/2019 21:12 EST US EXTREMITY 04/15/2019 19:50 EST documented in this encounter Results * XR FOOT LEFT 3 OR MORE VIEWS (04/15/2019 21:13 EST) Anatomical Region Laterality Modality Lower Extremities Left Other 04/15/2019 21:1 3 EST Narrative 04/15/2019 21:13 EST ? EXAM: RADIOLOGY/FOOT LEFT 3+VIEW ?EX. D/ (2100) ? CLINICAL INFORMATION: ? twist and pain ? PROCEDURE INFORMATION: ? Exam: XR Left Foot Complete ? Exam date and time: 04/15/2019 20:39 ? Age: 78 years old ? Clinical indication: Pain; Foot; Left; Additional info: Twist ? and pain ? TECHNIQUE: ? Imaging protocol: XR Left foot. ? Views: 3 or more views. ? COMPARISON: ? No relevant prior studies available. ? FINDINGS: ? Bones/joints: The bones are demineralized. Mild hallux valgus. ? Mild first metatarsal phalangeal degerative changes. No acute ? fracture or subluxation. Plantar calcaneal spur. Moderate ? degenerative changes in the midfoot and at the talonavicular ? joint. ? Soft tissues: Generalized soft tissue swelling. ? IMPRESSION: ? 1. No acute bony pathology. Degenerative changes. ? 2. Mild hallux valgus. ? REPORT SIGNED IN OTHER VENDOR SYSTEM 04/15/2019 ?Reported By: Valerie Schwartz MD ? CC: ? Transcribed Date/Time: 04/15/2019 (2112) ? Therapist'S Assistant: ? Printed Date/Time: 04/15/2019 (2112) ? PAGE 1 ? Signed Report ? Procedure Note Valerie Schwartz MD - 04/15/2019 EXAM: RADIOLOGY/FOOT LEFT 3+VIEW EX. D/ (2100) CLINICAL INFORMATION: twist and pain PROCEDURE INFORMATION: Exam: XR Left Foot Complete Exam date and time: 04/15/2019 20:39 Age: 78 years old Clinical indication: Pain; Foot; Left; Additional info: Twist and pain TECHNIQUE: Imaging protocol: XR Left foot. Views: 3 or more views. COMPARISON: No relevant prior studies available. FINDINGS: Bones/joints: The bones are demineralized. Mild hallux valgus. Mild first metatarsal phalangeal degerative changes. No acute fracture or subluxation. Plantar calcaneal spur. Moderate degenerative changes in the midfoot and at the talonavicular joint. Soft tissues: Generalized soft tissue swelling. IMPRESSION: 1. No acute bony pathology. Degenerative changes. 2. Mild hallux valgus. REPORT SIGNED IN OTHER VENDOR SYSTEM 04/15/2019 Reported By: Valerie Schwartz MD CC: Transcribed Date/Time: 04/15/2019 (2112) Therapist'S Assistant: Printed Date/Time: 04/15/2019 (2112) PAGE 1 Signed Report Janell Price MD IMG DIAGNOSTIC ARIANE GING ORDERABLES * XR TIBIA FIBULA LEFT 2 VIEWS (04/15/2019 21:12 EST) Anatomical Region Laterality Modality Lower Extremities Other 04/15/2019 21:1 2 EST Narrative 04/15/2019 21:12 EST ? EXAM: RADIOLOGY/LOWER LEG LEFT 2 VIEW ? EX. D/ (2100) ? CLINICAL INFORMATION: ? ankle twist andpain ? PROCEDURE INFORMATION: ? Exam: XR Left Tibia and Fibula ? Exam date and time: 04/15/2019 20:39 ? Age: 78 years old ? Clinical indication: Pain; Lower leg; Left; Additional info: ? Ankle twist andpain ? TECHNIQUE: ? Imaging protocol: XR Left tibia and fibula. ? Views: 2 views. ? COMPARISON: ? No relevant prior studies available. ? FINDINGS: ? Bones/joints: No acute fracture or subluxation. Tricompartmental ? degenerative changes in the knee appear severe medially. ? Significant medial joint space narrowing. ? Soft tissues: Generalized soft tissue swelling. ? IMPRESSION: ? 1. No acute bony pathology. ? 2. 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 ? REPORT SIGNED IN OTHER VENDOR SYSTEM 04/15/2019 ?Reported By: Valerie Schwartz MD ? CC: ? Transcribed Date/Time: 04/15/2019 (2111) ? Therapist'S Assistant: ? Printed Date/Time: 04/15/2019 (2111) ? PAGE 1 ? Signed Report ? Procedure Note Valerie Schwartz MD - 04/15/2019 EXAM: RADIOLOGY/LOWER LEG LEFT 2 VIEW EX. D/ (2100) CLINICAL INFORMATION: ankle twist andpain PROCEDURE INFORMATION: Exam: XR Left Tibia and Fibula Exam date and time: 04/15/2019 20:39 Age: 78 years old Clinical indication: Pain; Lower leg; Left; Additional info: Ankle twist andpain TECHNIQUE: Imaging protocol: XR Left tibia and fibula. Views: 2 views. COMPARISON: No relevant prior studies available. FINDINGS: Bones/joints: No acute fracture or subluxation. 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 Significant medial joint space narrowing. Soft tissues: Generalized soft tissue swelling. IMPRESSION: 1. No acute bony pathology. 2. 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 REPORT SIGNED IN OTHER VENDOR SYSTEM 04/15/2019 Reported By: Valerie Schwartz MD CC: Transcribed Date/Time: 04/15/2019 (2111) Therapist'S Assistant: .VRAD Printed Date/Time: 04/15/2019 (2111) PAGE 1 Signed Report Janell Price MD IMG DIAGNOSTIC ARIANE GING ORDERABLES * US EXTREMITY (04/15/2019 19:50 EST) Anatomical Region Laterality Modality Other 04/15/2019 19:5 0 EST Narrative 04/15/2019 19:50 EST ? EXAM: ULTRASOUND/DOPPLER VEIN LOWER EXT. ??EX. D/ (1921) ? CLINICAL INFORMATION: ? PLL - Pain left lower extremity ? PROCEDURE INFORMATION: ? Exam: US Duplex Left Lower Extremity Veins, Limited ? Exam date and time: 04/15/2019 18:56 ? Age: 78 years old ? Clinical indication: Pain; Leg, lower; Left; Prior surgery; ? Surgery date: 6+ months; Surgery type: Ankle surgery 50 years ? ago; Additional info: Pll - pain left lower extremity ? TECHNIQUE: ? Imaging protocol: Real-time Duplex ultrasound of the Left Lower ? Extremity with 2-D mckay scale, color Doppler flow and spectral ? waveform analysis with image documentation. Limited exam focused ? on the left lower extremity veins. ? COMPARISON: ? No relevant prior studies available. ? FINDINGS: ? Left deep veins: The common femoral, femoral and popliteal veins ? are patent without thrombus. Normal compressibility, ? augmentation response and Doppler waveforms. ??Visualized calf ? veins are patent. ?? The peroneal veins were not well seen. ? Left superficial veins: Saphenofemoral junction is patent ? without thrombus. ? Soft tissues: Unremarkable. ? IMPRESSION: ? No deep venous thrombus. ? REPORT SIGNED IN OTHER VENDOR SYSTEM 04/15/2019 ?Reported By: Valerie Schwartz MD ? CC: ? Transcribed Date/Time: 04/15/2019 (1949) ? Therapist'S Assistant: ? Printed Date/Time: 04/15/2019 (1949) ? PAGE 1 ? Signed Report ? Procedure Note Valerie Schwartz MD - 04/15/2019 EXAM: ULTRASOUND/DOPPLER VEIN LOWER EXT. EX. D/ (192) CLINICAL INFORMATION: PLL - Pain left lower extremity PROCEDURE INFORMATION: Exam: US Duplex Left Lower Extremity Veins, Limited Exam date and time: 04/15/2019 18:56 Age: 78 years old Clinical indication: Pain; Leg, lower; Left; Prior surgery; Surgery date: 6+ months; Surgery type: Ankle surgery 50 years ago; Additional info: Pll - pain left lower extremity TECHNIQUE: Imaging protocol: Real-time Duplex ultrasound of the Left Lower Extremity with 2-D mckay scale, color Doppler flow and spectral waveform analysis with image documentation. Limited exam focused on the left lower extremity veins. COMPARISON: No relevant prior studies available. FINDINGS: Left deep veins: The common femoral, femoral and popliteal veins are patent without thrombus. Normal compressibility, augmentation response and Doppler waveforms. Visualized calf veins are patent. The peroneal veins were not well seen. Left superficial veins: Saphenofemoral junction is patent without thrombus. Soft tissues: Unremarkable. IMPRESSION: No deep venous thrombus. REPORT SIGNED IN OTHER VENDOR SYSTEM 04/15/2019 Reported By: Valerie Schwartz MD CC: Transcribed Date/Time: 04/15/2019 (1949) Therapist'S Assistant: Printed Date/Time: 04/15/2019 (1949) PAGE 1 Signed Report Janell Price MD IMG US ORDERABLES documented in this encounter Visit Diagnoses Not on filedocumented in this encounter Additional Health Concerns Infection Onset Date Last Indicated Resolved Time R/O COVID-19 08/13/2023 08/13/2023 08/13/2023 20:0 7 EDT documented as of this encounter Care Teams Director Supply Relationship Specialty Start Date End Date Otis Gee MD PCP - General 01/14/10 08/08/22 Dane Rick MD [address] [place] [address] [address] [place] [address] PCP - General Family Medicine - Primary Care 08/09/22 Elisabet Aponte RN [address] [place] [address],[address] [place], [place] [phone] Enrollment Management Coordinator 06/29/21 04/09/22 Vicky Chamberlain LICSW [address] [place], [place] [address] [place] [address] Enrollment Management Coordinator 06/12/22 01/22/24 Leticia Lieberman [address] [place] [phone] General Surgery 04/03/23 Mendoza Guzmán MD [address] [place] [address] [address] [place] [address] Otolaryngology 04/03/23 documented as of this encounter
--- OUTSIDE RECORDS SUMMARY | 2024-02-08 01:14 | XMS_ITS | Encounter Summary ---
Author Organization [facility] Address [address] [place] [address] Care Team Providers Care Call Or Contact Centre Operator Name Role Phone Otis Gee MD Primary Care Provider Unajeannette ilable Encounter Details Date Type Department Care Team (Latest Contact Info) Description 02/10/2013 13:57 EST - 02/10/2013 23:59 EST Hospital Encounter [address] [address] Unknown, Provider, Discharge Disposition: Home or Self [...] Code Departure Means Destination Home or Self Fdc documented in this encounter Plan of Treatment Upcoming Encounters Date Type Department Care Team ([facility] st Contact Info) Description 05/19/2024 11:00 EST Office Visit [facility] Family Medicine [facility] [address] [facility], [facility] [address] [place] [address] Dane Rick MD [address] [place] [phone] documented as of this encounter Visit Diagnoses Not on filedocumented in this encounter Care Teams Call Or Contact Centre Operator Relationship Specialty Start Date End Date Otis Gee MD PCP - General 01/14/10 08/08/22 documented as of this encounter
--- OUTSIDE RECORDS SUMMARY | 2024-02-08 01:14 | XMS_ITS | Encounter Summary ---
Author Organization [facility] Address [address] [place] [address] Care Team Providers Care Assistant Counsel Name Role Phone Otis Gee MD Primary Care Provider Unava ilable Reason for Visit * Reason Onset Date Comments Medications Refill 04/14/2019 Encounter Details Date Type Department Care Team (Late st Contact Info) Description 04/14/2019 Refill [facility] [place] [address] [place] , [facility] [address] [place], [place] [phone] Otis Gee MD Medications Refill Social History [...] TAKE 1 TABLET BY MOUTH ONCE DAILY 90 Tab 3 04/14/2019 07/24/2019 documented in this encounter Miscellaneous Notes * Telephone Encounter - Jyoti Cavanaugh - 04/14/2019 1640 EST To TC according to [facility] this was last filled on 04/16/18 90 day supply with 3 refills, seen within a year no f/u scheduled, med pended please review and send in. documented in this encounter Plan of Treatment Upcoming Encounters Date Type Department Care Team (Late st Contact Info) Description 05/19/2024 11:00 EST Office Visit [facility] Family Medicine [address], [facility] [address] [place], [place] [phone] Dane Rick MD [address] [place] [phone] documented as of this encounter Visit Diagnoses Not on filedocumented in this encounter Discontinued Medications Medication Sig Discontinue Reason Start Date End Da te losartan (COZAAR) 50 mg tablet Take 50 mg by mouth daily. 04/14/2019 documented as of this encounter Care Teams Assistant Counsel Relationship Specialty Start Date End Date Otis Gee MD PCP - General 01/14/10 08/08/22 documented as of this encounter
--- OUTSIDE RECORDS SUMMARY | 2024-02-08 01:14 | XMS_ITS | Encounter Summary ---
Author Organization [facility] Address [address] [place] [address] Care Team Providers Care Dowel Pin Worker Name Role Phone Otis Gee MD Primary Care Provider Unava ilable Encounter Details Date Type Department Care Team ([facility] Contact Info) Description 12/06/2016 Historical Results Only [facility] Radiology Results [address] [place] [address] Otis Gee MD Social History [...] Upcoming Encounters Date Type Department Care Team ([facility] Contact Info) Description 05/19/2024 11:00 EST Office Visit [facility] Family Medicine [facility] [address] [facility], [facility] [address] [place] [address] Dane Rick MD [address] [place] [address] [address] [place] [address] documented as of this encounter Procedures Procedure Name Priority Date/Time Associated Diagnosis Comments HISTORICAL STRESS TEST 12/06/2016 10:00 EDT NM CARD SPECT NUCLEAR STRESS 12/06/2016 9:41 EDT documented in this encounter Results * HISTORICAL STRESS TEST (12/06/2016 10:00 EDT) Anatomical Region Laterality Modality Nuclear Stress 12/06/2016 10:0 0 EDT Narrative 12/06/2016 10:00 EDT ? [facility] ?[facility] ?[address] [place], [place] [address] ? [id number] ?C A R D I A C ?S T R E S S ?T E S T ?R E P O R T NAME: ANDRIA LOPEZ ? : 42 TELEPHONE: [phone] ? MR#: [id number] ? *[facility]* *[facility]* [address] [place] [address] Myocardial Perfusion Imaging - SPECT Regadenoson Date of study: ??12/06/2016 *PATIENT PRESENTATION* Height: ? 152.4cm (60in) Blood Pressure: Weight: ? 93.2kg (205lb) BSA: ?2.04m S 2 Ordering physician: Otis Gee Impressions: ?? Normal study after pharmacologic stress. Summary: 1. Myocardial perfusion imaging: No myocardial perfusion defects noted. 2. The calculated left ventricular ejection fraction after stress: 75%. ?? LV global systolic function is normal. No left ventricular regional ?? motion abnormality. Indication: ?? GEORGIA SCOTT. History: ??PAST 1-2 MONTHS, GENERALIZED FATIGUE, SOB WITH EXERTION. ALSO SOME NONEXERTIONAL DISCOMFORT BETWEEN SHOULDER BLADES AND ACROSS CHEST. 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 2016- NUC STRESS- NEGATIVE FOR ISCHEMIA. 2013- STENT X 1. ??Risk factors: ??Family history of coronary artery disease. Hypertension. Dyslipidemia, on statin (HMG-CoA reductase inhibitor) therapy. Cholesterol: 164mg/dl. HDL: 51mg/dl. LDL: 79mg/dl. Triglycerides: 172mg/dl. MEDS: LOVASTATIN 20 MG, FUROSEMIDE 60 MG, LOSARTAN 50 MG, LORAZEPAM. ALLERGIES: AUGMENTIN, FLAGYL, PCN, METOPROLOL, ZITHROMAX. Imaging Technique: Protocol: ??Regadenoson. Acquisition: ?? Gated SPECT; 1 day - rest/stress. ?The patient was imaged in the supine position. Attenuation correction used. Isotope administration: ? [facility] ?[facility] [address] [place], [place] [address] ? [id number] ?C A R D I A C ?S T R E S S ?T E S T ?R E P O R T NAME: ANDRIA LOPEZ ? : 42 TELEPHONE: [phone] ? MR#: [id number] ? - Rest. Tc[99m]-sestamibi. Injection to stress time: 00:45. - Stress. Tc[99m]-sestamibi. 1-2 min before end of exercise Baseline ECG: ??SINUSBRADY- 56 BPM. Stress protocol: +--------+--+ + + !Stage ?? !HR!BP (mmHg) ??!Comments ? ! +--------+--+ + + !Baseline!56!148/75 (99)! ! +--------+--+ + + !1 min ?? !71! !Inject Regadenoson.! +--------+--+ + + !2 min ?? !69!126/69 (88)! ! +--------+--+ + + !3 min ?? !66! ! ! +--------+--+ + + !4 min ?? !66!137/68 (91)! ! +--------+--+ + + !5 min ?? !68! ! ! +--------+--+ + + !6 min ?? !63!131/67 (88)! ! +--------+--+ + + !7 min ?? !63! ! ! +--------+--+ + + * Stress results: ??The rate-pressure product for the peak heart rate and blood pressure was 9042mm Hg/min. Stress ECG: ??RESTING LEXISCAN STUDY NO CHEST PAIN A FEW PVCS, PAC'S NO ISCHEMIC ECG CHANGES. Myocardial perfusion: ?? Imaging information: gated. Left ventricular size is normal. No myocardial perfusion defects noted. Ventricular Function (Wall Motion): ?? The calculated left ventricular ejection fraction after stress: 75%. LV global systolic function is normal. ?? No left ventricular regional motion abnormality. Study data: ??Danya Pozo MD supervised and was readily available during the procedure. This study was interpreted by [facility]. ??Study status: ??Routine. ??Consent: ??The risks, benefits, and alternatives to the procedure were explained to the patient and informed consent was obtained. ??Procedure: ??Initial setup. A baseline ECG was recorded. Surface ECG leads and manual cuff blood pressure measurements were monitored. Heart sounds: Normal. Lung sounds: Normal. ??Regadenoson stress test. Stress testing was performed, with regadenoson by ? [facility] ?[facility] ?[facility] [address] [place] [id number] ? [id number] ?C A R D I A C ?S T R E S S ?T E S T ?R E P O R T NAME: ANDRIA LOPEZ ? : 42 TELEPHONE: [phone] ? MR#: [id number] ? intravenous bolus, for a total dose of 0.4mgover 10.00sec, followed by a 5ml saline flush. The infusion was terminated due to per protocol. Study completion: ??All catheters inserted during the procedure were removed. The patient tolerated the procedure well and was discharged from the lab. ??Discharge: ??The patient left the laboratory in stable condition. ? Birthdate: ??Patient birthdate: 1940. ??Sex: ??Gender: female. ??Study date: ??Study date: 12/06/2016. Study time: 10:00 AM. Signature Documentation: - The imaging portion of this study was interpreted by Nuclear ??Cabinet Mounter Danya Pozo MD. - The Stress ECG portion of this study was interpreted by Danya ??MD Nohelia. Electronically signed by Danya Pozo 12/06/2016 12:59 Procedure Note Danya Pozo MD - 01/19/2019 [facility] [address] [place] [id number] C A R D I A C S T R E S S T E S T R E P O R T NAME: ANDRIA LOPEZ EDOB: 42 TELEPHONE: [phone] MR#: [id number] *[facility]* *[facility]* [address] [place] [address] Myocardial Perfusion Imaging - SPECT Regadenoson Date of study: 12/06/2016 *PATIENT PRESENTATION* Height: 152.4cm (60in) Blood Pressure: Weight: 93.2kg (205lb) BSA: 2.04m S 2 Ordering physician: Otis Gee Impressions: Normal study after pharmacologic stress. Summary: 1. Myocardial perfusion imaging: No myocardial perfusion defects noted. 2. The calculated left ventricular ejection fraction after stress: 75%. LV global systolic function is normal. No left ventricular regional motion abnormality. Indication: GEORGIA SCOTT. History: PAST 1-2 MONTHS, GENERALIZED FATIGUE, SOB WITH EXERTION. ALSO SOME NONEXERTIONAL DISCOMFORT BETWEEN SHOULDER BLADES AND ACROSS CHEST. 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 2016- NUC STRESS- NEGATIVE FOR ISCHEMIA. 2013- STENT X 1. Risk factors: Family history of coronary artery disease. Hypertension. Dyslipidemia, on statin (HMG-CoA reductase inhibitor) therapy. Cholesterol: 164mg/dl. HDL: 51mg/dl. LDL: 79mg/dl. Triglycerides: 172mg/dl. MEDS: LOVASTATIN 20 MG, FUROSEMIDE 60 MG, LOSARTAN 50 MG, LORAZEPAM. ALLERGIES: AUGMENTIN, FLAGYL, PCN, METOPROLOL, ZITHROMAX. Imaging Technique: Protocol: Regadenoson. Acquisition: Gated SPECT; 1 day - rest/stress. The patient was imaged in the supine position. Attenuation correction used. Isotope administration: [facility] [address] [place], [place] [address] [id number] C A R D I A C S T R E S S T E S T R E P O R T NAME: ANDRIA LOPEZ EDOB: 42 TELEPHONE: [phone] MR#: [id number] - Rest. Tc[99m]-sestamibi. Injection to stress time: 00:45. - Stress. Tc[99m]-sestamibi. 1-2 min before end of exercise Baseline ECG: SINUSBRADY- 56 BPM. Stress protocol: +--------+--+ + + !Stage !HR!BP (mmHg) !Comments ! +--------+--+ + + !Baseline!56!148/75 (99)! ! +--------+--+ + + !1 min !71! !Inject Regadenoson.! +--------+--+ + + !2 min !69!126/69 (88)! ! +--------+--+ + + !3 min !66! ! ! +--------+--+ + + !4 min !66!137/68 (91)! ! +--------+--+ + + !5 min !68! ! ! +--------+--+ + + !6 min !63!131/67 (88)! ! +--------+--+ + + !7 min !63! ! ! +--------+--+ + + * Stress results: The rate-pressure product for the peak heart rate and blood pressure was 9042mm Hg/min. Stress ECG: RESTING LEXISCAN STUDY NO CHEST PAIN A FEW PVCS, PAC'S NO ISCHEMIC ECG CHANGES. Myocardial perfusion: Imaging information: gated. Left ventricular size is normal. No myocardial perfusion defects noted. Ventricular Function (Wall Motion): The calculated left ventricular ejection fraction after stress: 75%. LV global systolic function is normal. No left ventricular regional motion abnormality. Study data: Danya Pozo MD supervised and was readily available during the procedure. This study was interpreted by [facility]. Study status: Routine. Consent: The risks, benefits, and alternatives to the procedure were explained to the patient and informed consent was obtained. Procedure: Initial setup. A baseline ECG was recorded. Surface ECG leads and manual cuff blood pressure measurements were monitored. Heart sounds: Normal. Lung sounds: Normal. Regadenoson stress test. Stress testing was performed, with regadenoson by [facility] [address] [place] [address] [id number] C A R D I A C S T R E S S T E S T R E P O R T NAME: ANDRIA LOPEZ EDOB: 42 TELEPHONE: [phone] MR#: [id number] intravenous bolus, for a total dose of 0.4mgover 10.00sec, followed by a 5ml saline flush. The infusion was terminated due to per protocol. Study completion: All catheters inserted during the procedure were removed. The patient tolerated the procedure well and was discharged from the lab. Discharge: The patient left the laboratory in stable condition. Birthdate: Patient birthdate: 1940. Sex: Gender: female. Study date: Study date: 12/06/2016. Study time: 10:00 AM. Signature Documentation: - The imaging portion of this study was interpreted by Nuclear Cabinet Mounter Danya Pozo MD. - The Stress ECG portion of this study was interpreted by Danya Pozo MD. Electronically signed by Danya Pozo 12/06/2016 12:59 Provider Unknown CARDIAC NM ORDERABLE S * NM CARD SPECT NUCLEAR STRESS (12/06/2016 9:41 EDT) Anatomical Region Laterality Modality Chest Nuclear Stress 12/06/2016 9:41 EDT Narrative 12/08/2016 14:02 EDT ? EXAM: NUCLEAR MEDICINE/NUCLEAR STRESS GIANA EX. D/ (0941) ? CLINICAL INFORMATION: ? R06.02, SOB ON EXERTION, PAST NM STRESS TEST ? WITH PERSANTINE, NOW WITH SAME SYMPTOMS, ? PAST LAD LESION ? *[facility]* ? *[facility]* ? [address] ? [place] [address] ? Myocardial Perfusion Imaging - SPECT ? Regadenoson ? Date of study: ??12/06/2016 ? *PATIENT PRESENTATION* ? Height: ? 152.4cm (60in) ? Blood Pressure: ? Weight: ? 93.2kg (205lb) ? BSA: ?2.04m S 2 ? Ordering physician: Otis Gee ? Impressions: ?? Normal study after pharmacologic stress. ? Summary: ? 1. Myocardial perfusion imaging: No myocardial perfusion defects ?noted. ? 2. The calculated left ventricular ejection fraction after stress: ?75%. LV global systolic function is normal. No left ventricular ?regional motion abnormality. ? Indication: ?? GEORGIA SCOTT. ? History: ??PAST 1-2 MONTHS, GENERALIZED FATIGUE, SOB WITH EXERTION. ? ALSO SOME NONEXERTIONAL DISCOMFORT BETWEEN SHOULDER BLADES AND ACROSS ? CHEST. 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 ? 2016- NUC STRESS- NEGATIVE FOR ISCHEMIA. ? 2013- STENT X 1. ? Risk factors: ??Family history of coronary artery disease. ? Hypertension. Dyslipidemia, on statin (HMG-CoA reductase inhibitor) ? therapy. ? Cholesterol: 164mg/dl. ? HDL: 51mg/dl. ? LDL: 79mg/dl. ? Triglycerides: 172mg/dl. ? MEDS: LOVASTATIN 20 MG, FUROSEMIDE 60 MG, LOSARTAN 50 MG, LORAZEPAM. ? ALLERGIES: AUGMENTIN, FLAGYL, PCN, METOPROLOL, ZITHROMAX. ? PAGE 1 ? Signed Report ? (CONTINUED) ? Imaging Technique: ? Protocol: ??Regadenoson. ? Acquisition: ?? Gated SPECT; 1 day - rest/stress. ?The patient was ? imaged in the supine position. Attenuation correction used. ? Isotope administration: ? - Rest. Tc[99m]-sestamibi. Injection to stress time: 00:45. ? - Stress. Tc[99m]-sestamibi. 1-2 min before end of exercise ? Baseline ECG: ??SINUSBRADY- 56 BPM. ? Stress protocol: ? +--------+--+ + + ? !Stage ?? !HR!BP (mmHg) ??!Comments ? ! ? +--------+--+ + + ? !Baseline!56!148/75 (99)! ! ? +--------+--+ + + ? !1 min ?? !71! !Inject Regadenoson.! ? +--------+--+ + + ? !2 min ?? !69!126/69 (88)! ! ? +--------+--+ + + ? !3 min ?? !66! ! ! ? +--------+--+ + + ? !4 min ?? !66!137/68 (91)! ! ? +--------+--+ + + ? !5 min ?? !68! ! ! ? +--------+--+ + + ? !6 min ?? !63!131/67 (88)! ! ? +--------+--+ + + ? !7 min ?? !63! ! ! ? +--------+--+ + + ? * ? Stress results: ??The rate-pressure product for the peak heart rate and ? blood pressure was 9042mm Hg/min. ? Stress ECG: ??RESTING LEXISCAN STUDY ? NO CHEST PAIN ? A FEW PVCS, PAC'S ? NO ISCHEMIC ECG CHANGES. ? Myocardial perfusion: ?? Imaging information: gated. Left ventricular ? size is normal. No myocardial perfusion defects noted. ? Ventricular Function (Wall Motion): ?? The calculated left ventricular ? ejection fraction after stress: 75%. LV global systolic function is ? normal. ?? No left ventricular regional motion abnormality. ? Study data: ??Danya Pozo MD supervised and was readily available ? during the procedure. This study was interpreted by [facility]. ? Study status: ??Routine. ? Consent: ??The risks, benefits, and alternatives to the procedure were ? explained to the patient and informed consent was obtained. ? Procedure: ??Initial setup. A baseline ECG was recorded. Surface ECG ? leads and manual cuff blood pressure measurements were monitored. ? PAGE 2 ? Signed Report ? (CONTINUED) ? Heart sounds: Normal. ? Lung sounds: [...] the laboratory in stable condition. ? Birthdate: ??Patient birthdate: 1940. ? Sex: Gender: female. ? Study date: ??Study date: 12/06/2016. ? Study time: 10:00 AM. ? Signature Documentation: ? - The imaging portion of this study was interpreted by Nuclear ? Cabinet Mounter Danya Pozo MD. ? - The Stress ECG portion of this study was interpreted by Danya ? MD Nohelia. ? Electronically signed by ? Danya Pozo ? 12/06/2016 12:59 ?Reported By: Danya Pozo MD ? CC: ? Transcribed Date/Time: 12/08/2016 (1402) ? Profile Stitching Machine Operator: UTE ? Printed Date/Time: 09/17/2018 (1831) ? PAGE 3 ? Signed Report ? Procedure Note Danya Pozo MD - 02/05/2019 EXAM: NUCLEAR MEDICINE/NUCLEAR STRESS GIANA EX. D/ (0941) CLINICAL INFORMATION: R06.02, SOB ON EXERTION, PAST NM STRESS TEST WITH PERSANTINE, NOW WITH SAME SYMPTOMS, PAST LAD LESION *[facility]* *[facility]* [address] [place] [address] Myocardial Perfusion Imaging - SPECT Regadenoson Date of study: 12/06/2016 *PATIENT PRESENTATION* Height: 152.4cm (60in) Blood Pressure: Weight: 93.2kg (205lb) BSA: 2.04m S 2 Ordering physician: Otis Gee Impressions: Normal study after pharmacologic stress. Summary: 1. Myocardial perfusion imaging: No myocardial perfusion defects noted. 2. The calculated left ventricular ejection fraction after stress: 75%. LV global systolic function is normal. No left ventricular regional motion abnormality. Indication: SCOTT,CP. History: PAST 1-2 MONTHS, GENERALIZED FATIGUE, SOB WITH EXERTION. ALSO SOME NONEXERTIONAL DISCOMFORT BETWEEN SHOULDER BLADES ANDACROSS CHEST. 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 2016- NUC STRESS- NEGATIVE FOR ISCHEMIA. 2013- STENT X 1. Risk factors: Family history of coronary artery disease. Hypertension. Dyslipidemia, on statin (HMG-CoA reductase inhibitor) therapy. Cholesterol: 164mg/dl. HDL: 51mg/dl. LDL: 79mg/dl. Triglycerides: 172mg/dl. MEDS: LOVASTATIN 20 MG, FUROSEMIDE 60 MG, LOSARTAN 50 MG,LORAZEPAM. ALLERGIES: AUGMENTIN, FLAGYL, PCN, METOPROLOL, ZITHROMAX. PAGE 1 Signed Report (CONTINUED) Imaging Technique: Protocol: Regadenoson. Acquisition: Gated SPECT; 1 day - rest/stress. The patient was imaged in the supine position. Attenuation correction used. Isotope administration: - Rest. Tc[99m]-sestamibi. Injection to stress time: 00:45. - Stress. Tc[99m]-sestamibi. 1-2 min before end of exercise Baseline ECG: SINUSBRADY- 56 BPM. Stress protocol: +--------+--+ + + !Stage !HR!BP (mmHg) !Comments ! +--------+--+ + + !Baseline!56!148/75 (99)! ! +--------+--+ + + !1 min !71! !Inject Regadenoson.! +--------+--+ + + !2 min !69!126/69 (88)! ! +--------+--+ + + !3 min !66! ! ! +--------+--+ + + !4 min !66!137/68 (91)! ! +--------+--+ + + !5 min !68! ! ! +--------+--+ + + !6 min !63!131/67 (88)! ! +--------+--+ + + !7 min !63! ! ! +--------+--+ + + * Stress results: The rate-pressure product for the peak heart rateand blood pressure was 9042mm Hg/min. Stress ECG: RESTING LEXISCAN STUDY NO CHEST PAIN A FEW PVCS, PAC'S NO ISCHEMIC ECG CHANGES. Myocardial perfusion: Imaging information: gated. Leftventricular size is normal. No myocardial perfusion defects noted. Ventricular Function (Wall Motion): The calculated leftventricular ejection fraction after stress: 75%. LV global systolic function is normal. No left ventricular regional motion abnormality. Study data: Danya Pozo MD supervised and was readilyavailable during the procedure. This study was interpreted by [facility]. Study status: Routine. Consent: The risks, benefits, and alternatives to the procedurewere explained to the patient and informed consent was obtained. Procedure: Initial setup. A baseline ECG was recorded. Surface ECG leads and manual cuff blood pressure measurements were monitored. PAGE 2 Signed Report (CONTINUED) Heart sounds: Normal. Lung sounds: Normal. Regadenoson [...] Sex: Gender: female. Study date: Study date: 12/06/2016. Study time: 10:00 AM. Signature Documentation: - The imaging portion of this study was interpreted by Nuclear Cabinet Mounter Danya Pozo MD. - The Stress ECG portion of this study was interpreted by Danya Pozo MD. Electronically signed by Danya Pozo 12/06/2016 12:59 Reported By: Danya Pozo MD CC: Transcribed Date/Time: 12/08/2016 (1402) Profile Stitching Machine Operator: UTE Printed Date/Time: 09/17/2018 (2128) PAGE 3 Signed Report Otis Gee MD CARDIAC NM ORDERABLE S documented in this encounter Visit Diagnoses Not on filedocumented in this encounter Care Teams Dowel Pin Worker Relationship Specialty Start Date End Date Otis Gee MD PCP - General 01/14/10 08/08/22 documented as of this encounter
--- OUTSIDE RECORDS SUMMARY | 2024-02-08 01:14 | XMS_ITS | Encounter Summary ---
Author Organization [facility] Address [address] [place] [address] Care Team Providers Care Quiller Hand Name Role Phone Antelmo Gee MD Primary Care Provider Unava ilable Encounter Details Date Type Department Care Team ([facility] st Contact Info) Description 01/03/2013 8:01 EDT - 01/03/2013 16:40 EDT Hospital Encounter [facility] Cardiovascular Unit [address] [place] [address] Leonardo Khan MD [address] [facility] [address] [place] [address] Discharge Disposition: Home or Self Care Social [...] Sign Reading Time Taken Comments Blood Pressure 138/54 01/03/2013 1615 EDT Pulse 61 01/03/2013 0836 EDT Temperature 36.4 ??C (97.5 ??F) 01/03/2013 1600 EDT Respiratory Rate 18 01/03/2013 1615 EDT Oxygen Saturation 99% 01/03/2013 1615 EDT Inhaled Oxygen Concentration - - Weight 93.4 kg (206 lb) 01/03/2013 0836 EDT Height 152.4 cm (5') 01/03/2013 0836 EDT Body Mass Index 40.23 01/03/2013 0836 EDT documented in this encounter Discharge Instructions * Discharge Instructions* Ted Yumikoclaribel Mayers, GUILLE - 01/03/2013 16:31 EDT Post Procedure Instructions: You had a percutaneous cardiovascular intervention (PCI) on {procedure date:}. Your procedure was performed through a small incision in the artery in your {left/right:956808} {ANATOMY; ARM OR LEG FA:}. Normal Observations: Soreness or tenderness at the site may last one week but should be steadily improving. Brusing may last two weeks. Formation of a small lump (dime to quarter size) may last up to six weeks. Diet: No added salt, low saturated fat Activity: No heavy lifting or strenuous activity for 1 weeks; nothing >10 lbs Driving: May drive day after discharge Activity Post Percutaneous Coronary Intervention: Avoid driving on the day of discharge. Driving is possible on the first day if you are not limited by symptoms such as leg pain, shortness of breath or chest pain or if you have not been diagnosed with a serious, abnormal hearth rhythm. For leg incisions, for 48-72 hours after the PCI, avoid climbing stairs and other activity that involves a lot of leg bending. If you have not had a myocardial infarction (heart attack), it is likely you will be able to return to all activities involving moderate exertion 48 hours after the PCI. Please discuss returning tosevere exertion (running, manual labor) with your physician prior to discharge. If you had a myocardial infarction, your schedule for returning to work and moderate exertion will be individualized by your physician. If you had an arm approach, keep your arm comfortably straight for the first 24 hours and avoid bending your arm for 48-72 hours. When sleeping, keep the arm elevated to minimize throbbing. No heavy lifting (greater than 10 pounds) for one week. Skin/Wound Care: Resume normal skin care Care of Your Incision: Keep the area clean and dry. Leave the sterile dressing in place for 24 hours. After this, you may shower, but no tub baths or hot tub use for 5 days. Do not apply any powders or lotions to this area. Bathing: No bath or immersion for 5 days; showering is okay. Pending Results: Not applicable Quality Measures for Acute Myocardial Infarction or Heart Failure Patients: Not applicable Symptoms to Call Your Doctor About: Chest pain Dizziness or fainting Increased leg or ankle swelling Pain, redness or swelling at the procedure site Rapid, irregular pulse Shortness of breath Call your physician immediately if you experience any of the following: ?? Fever greater than 101, swelling, redness or signs of infection, including yellow discharge ?? Any increasing pain at the site of the wound ?? Numbness or tingling at a point below the wound ?? Skin rash ?? If you have not been able to urinate or 24 hours after leaving the hospital ?? Any recurrence of symptoms that brought you into the hospital initially: Chest pain, shortness of breath, dizziness ?? If you note any signs of bleeding, such as bulging under the skin the size of a golf ball, put direct pressure on the area and call your doctor immediately Medication Instructions: Your medications may be different than when you entered the hospital. Prior to leaving the hospital, please review all of your medications with the nurse at the time of discharge. Do not wait for mail order medications to come. Make sure you can take your medications immediately upon going home. Stent Medications: Because you had a stent placed, you are going to be taking two daily medications to keep your stentopen: aspirin and clopidogrel (Plavix). If you develop any rashes, stomach irritation or bleeding while taking these medications, immediately contact your reliability technologist. Do not stop taking aspirin or Plavix without discussing this with your doctor. Appointments: See Dr. ANETLMO GEE MD in 2 weeks. Please call for an appointment. Follow up with Dr. Dylon Headley, Glycerine Plant Operator in [place]. The reliability technologist's office will call with an appointment. Office number for questions or concerns: [phone]. Follow up with Cardiac Rehab Cardiac Rehab Referral: You have declined cardiac rehab. You have received written information about cardiac rehab and planto follow the Home Walking Program. Follow-up Services Contacted at Discharge: none Heart Failure, Health Risk and Disease Information: Chest Pain Protocol If chest pain, discomfort or angina occurs and lasts for more than a few minutes then: 1. STOP what you are doing 2. Sit or lie down 3. If prescribed nitroglycerin ?? Place one table under your tongue (expect relief in 3-5 minutes) ?? If there is no relief after 5 minutes, place another tablet under your tongue. ?? If there is no relief after an additional 5 minutes, take a third tablet ?? If the discomfort has not been totally relieved after the third tablet, proceed to step 4 (call 911). 4. Call 911 immediately and arrange to be taken to the nearest emergency room 5. Keep the phone number or your local rescue squad taped to your phone along with directions to your home Remember, time is important to minimize heart damage. ?? DO NOT waste time going to the physician's office. ?? DO NOT ATTEMPT TO DRIVE YOURSELF TO THE HOSPITAL! If one or two tablets have given you relief, call your physician. Cholesterol Information The cholesterol in your body comes from two sources: the fats in the food you eat and your liver. Excess fat from foods is converted into LDL cholesterol and carries through the bloodstream to all parts of your body. LDL cholesterol sticks to the lla of your arteries. Over time, this causes arteries to become blocked. The blockage slows the blood down and heart disease can result. HDL cholesterol helps free some of the LDL cholesterol from the lal of the arteries and returns it to the bloodstream. Low fat diets help lower LDL cholesterol to a goal level. Ask your doctor about your appropriate LDL cholesterol goal. Hypertension Information When your blood pressure is too high, your heart needs to work harder to pump blood through your body. Over time, darien blood pressure can lead to more serious problems. A combination of diet, exercise and medication can help lower your blood pressure. Medication to lower blood pressure must be taken at the same time every day and over a long period of time. Talk with your physician if you have concerns about your blood pressure. Nutrition Counseling [facility] provides outpatient nutrition counseling. To schedule an appointment, call [phone]. Patients with diabetes are seen at the Endocrinology Clinic at these three practice sites: [address] [place] [address] [place], [place] [address] documented in this encounter Medications at Time [...] daily. 02/28/2019 documented as of this encounter Ordered Prescriptions Prescription Sig Dispensed Refills Start Date End Da te clopidogrel (PLAVIX) 75 mg tablet Take 1 Tab by mouth daily. 30 Tab 11 01/03/2013 02/28/2019 documented in this encounter Discharge Disposition Disposition Code Departure Means Destination Home or Self Care documented in this encounter Progress Notes * Dominique Moore MD - 01/04/2013 1433 EDT Patient called at home after same day discharge post PCI. Doing well, no CP, described large ecchymoses of the wrist, but no swelling or induration or tenderness. * Elisabet Martinez RN - 01/03/2013 1311 EDT 1250 Patient received into CVU via stretcher.Patient is awake,alert and oriented x3. Denies pain.Given post procedure instructions and agrees to follow. IV infusing without complication.TR Bands are intact and surrounded by old blood. Elevated right arm on two pillows. Vital signs stable. Daughter at bedside.Patient given food and drink. 1340 Patient eating and drinking well.TR Bands are dry and intact.CSMT intact. 1400 First 5cc of air removed from TR Bands. No change in status of wound. 1415 Second set of air let out of TR Band without complication.1 1430 Third set of 5cc removed from TR Bands. 1445 Fourth set of air removed from TR Bands. No complications at site. Yumiko Jean in to see patient. 1500 Patient and and daughter given discharge instructions. All verbalize understanding. 1600 Patient's right radial site without complication.CSMT intact. Hand getting warmer. 1640 Patient discharged home after passing orthos, and using bathroom. Patient left CVU in wheelchair pushed by her daughter. * Yumiko Jean NP - 01/03/2013 1247 EDT Outpatient post PCI with same day discharge. Follow up Dr Headley. Plavix daily without interruption x 1 year and Aspirin 81 mg daily lifetime reviewed with patient and the patient verbalizes understanding. Cardiac rehab reviewed with patient and the patient declines to attend. Written material given to patient and daily walking 5-20 min/day encouraged. Medications prior to admission that will be resumed at discharge: Medication Sig Dispense Refill ??? lovastatin (MEVACOR) 20 mg tablet Take 20 mg by mouth daily. ??? aspirin 81 mg EC tablet Take 81 mg by mouth every 48 hours. ??? losartan (COZAAR) 50 mg tablet Take 50 mg by mouth daily. ??? metoprolol XL (TOPROL-XL) 50 mg tablet Take 50 mg by mouth daily. ??? furosemide (LASIX) 20 mg tablet Take 20 mg by mouth daily. New medications prescribed at discharge: Medication Sig Dispense Refill ??? clopidogrel (PLAVIX) 75 mg tablet Take 1 Tab by mouth daily. 30 Tab 11 * Elisabet Martinez RN - 01/03/2013 0916 EDT Kenyatta Ivan Lopez arrived to the Cardiovascular Unit via her own ambulation. Patient greeted andidentified per [facility] policy, Allergies, procedure verified & patient oriented to Unit. Reviewed all pre-procedure instructions with Kenyatta Lopez. Patient denies pain. Discussed history, med list, allergies, NPO, sedation,& procedure information. All questions answered & patient verbalizes understanding. Pre-cath prep completed. Patient stretcher in low position with side rails up & call valderrama within patient reach. Patient's is at bedside & post procedure driveris her . * Joao Pozo MD - 01/02/2013 1345 EDT Pre-Procedure Note - Left Heart Cath Patient is 72 y.o. patient. Reason for LHC: Chest pain. Abnormal stress test. Past medical history: Seizure disorder Diverticulosis HLD (hyperlipidemia) ABDOULAYE (obstructive sleep apnea) Post concussive syndrome (poor memory) Trigeminal neuralgia Hypertension Nuclear stress test Reversible anteroseptal defect, with equivocal ST changes. Contrast allergy: Nil Renal function: Normal Already on Aspirin. Plavix 600 mg on am of cath. Proceed to LHC. Joao Pozo MD Pager # [phone] * Nicolasa Marroquin RN - 01/01/2013 1526 EDT Precardiac Cath Nursing Checklist Recent Labs: 11/12/12 BUN 11, CREATININE .7, GFR >60 No results found for this basename: BUN, CREATININE, HGB, CALCGFR Hgt: Height: 152.4 cm (60) Wgt: Weight : 93.441 kg (206 lb) Allergies: Allergies Allergen Reactions ??? Flagyl (Metronidazole) ??? Penicillins ??? Zithromax (Azithromycin) [facility] [address] [place] [address] - [address] [place] [address] [address] [place] [address] [address] [facility] [id number] Cardiac History: Reason for Cath: Abnormal stress test Anginal equivalent:: none Cardiac Procedures: no Stent Type/Size: Cardiac surgery: no Medical/Surgical History : Patient has a past medical history of Chest pressure (on exertion); Abnormal stress test (reversible anteroseptal defect, with equivocal ST changes); Breathlessness on exertion; Seizure disorder; Diverticulosis; HLD (hyperlipidemia); HLD (hyperlipidemia); ABDOULAYE (obstructive sleep apnea); Post concussive syndrome (poor memory); Trigeminal neuralgia; and Hypertension. Patient has past surgical history that includes ectropion repair (01/09/08) and blepharoplasty (01/15/08). Chronic Risk Factors: HTN and HLD Smoking and Alcohol intake: reports that she has never smoked. She does not have any smokeless tobacco history on file. She reports that she drinks alcohol. History of complications from sedation: No Patient Instructions: Patient Instructed by: Patient instructed by Advanced Testing Nurse NPO Instructions: Patient/family instructed to have no solid food after midnight and to stop drinking clear liquids 3 hours prior to registration time. Diabetic Pre procedure Instructions: N/A Shower Instructions: Patient/family instructed to shower the night before or the day of the procedure. Registration location: Patient/family instructed to register on the 3rd floor [facility] Lobby. Transportation Issues: No Patient/family instructed that they will need a designated petrol tanker driver if they are discharged on the dayof the procedure. Medications: Medication list: Patient/family instructed to bring medication list with them on the day of the procedure. Anticoagulants/Antiplatelets: Takes Aspirin 81 mg every other day. Instructed to take aspirin on day of procedure. Anti-Anginal meds: B-Blockers Nicolasa Marroquin RN documented in this encounter H&P Notes * Mike Peraza MD - 01/03/2013 0727 EDT Cardiology H&P PCP: ANTELMO GEE MD Chief Complaint: Chest Pain, dyspnea, positive stress test HPI: Kenyatta Lopez is a 72 y.o. female patient with no known CAD. The patient presents for an elective left heart catheterization. The patient has been complaining of exertional dyspnea over the last six months and exertional chest discomfort over the last month. The patient denies any rest pain. The chest pain is low intensity, substernal, non radiating and self resolving No prior CAD history or stress tests Nuclear stress test Reversible anteroseptal defect, with equivocal ST changes. Past medical history: Seizure disorder Diverticulosis HLD (hyperlipidemia) ABDOULAYE (obstructive sleep apnea) Post concussive syndrome (poor memory) Trigeminal neuralgia Hypertension ROS: A 10-point review of systems was conducted. Pertinent positives are noted in HPI. All other systems were reviewed and are negative. Past Cardiac History: Cardiac Risk Factors: Past Medical History Diagnosis Date ??? Chest pressure on exertion ??? Abnormal stress test reversible anteroseptal defect, with equivocal ST changes ??? Breathlessness on exertion ??? Seizure disorder ??? Diverticulosis ??? HLD (hyperlipidemia) ??? HLD (hyperlipidemia) ??? ABDOULAYE (obstructive sleep apnea) ??? Post concussive syndrome poor memory ??? Trigeminal neuralgia ??? Hypertension Current Outpatient Prescriptions Medication Sig Dispense Refill ??? lovastatin (MEVACOR) 20 mg tablet Take 20 mg by mouth daily. ??? aspirin 81 mg EC tablet Take 81 mg by mouth every 48 hours. ??? losartan (COZAAR) 50 mg tablet Take 50 mg by mouth daily. ??? metoprolol XL (TOPROL-XL) 50 mg tablet Take 50 mg by mouth daily. ??? furosemide (LASIX) 20 mg tablet Take 20 mg by mouth daily. Allergies as of 12/31/2012 - never reviewed Allergen Reaction Noted ??? Penicillins 11/15/2010 ??? Zithromax (azithromycin) 11/15/2010 History Social History ??? Marital Status: Spouse Name: N/A Number of Children: N/A ??? Years of Education: N/A Occupational History ??? Not on file. Social History Main Topics ??? Smoking status: Never Smoker ??? Smokeless tobacco: Not on file ??? Alcohol Use: Yes occasionally ??? Drug Use: ??? Sexually Active: Other Topics Concern ??? Not on file Social History Narrative ??? No narrative on file History reviewed. No pertinent family history. Physical Exam: No data found. General: Middle aged female in NAD HEENT: NCAT, No icterus Neck: Supple, No JVD appreciated CVS: S1, S2, RRR, II/ systolic murmur at the RUSB Chest: Chest CTA b/l with good air movement Abdomen: Soft, NT, ND, BS+ Extremities: No LE edema, PPP 2+ Neuro: AAO x 3, no focal deficits appreciated Skin: No rashes or lesions Musc: No joint tenderness on palpation Labs No results found for this basename: NA, K, CL, CO2, BUN, CREATININE, GLUCOSE, CALCIUM, MG, PHOS CrCl is unknown because no creatinine reading has been taken. No results found for this basename: WBC, HCT, PLT, MCV No results found for this basename: INR, PTT No results found for this basename: CHOL, LDLBASE, HDL, TRIG, HGBA1C No results found for this basename: BNP, NTBNP, CK, MB, TROPONINI ECG: sinus rhythm ,no active ischemia A/P: Kenyatta Lopez is a 72 y.o. female patient with chest pain, dyspnea on exertion-CCS III symptoms and a positive stress test Contrast allergy: Nil Renal function: Normal Already on Aspirin. Plavix 600 mg on am of cath. Proceed to LHC +- PCI if indicated Case discussed with Dr. Kortney Peraza MD Histology Aide pager [phone] documented in this encounter Procedure Notes * IP COUNSEL, SCAN 2 - 01/10/2013 0943 EDTAssociated Order(s): INVASIVE CARDIOLOGY REPORT-SCANNED * IP COUNSEL, SCAN 2 - 01/10/2013 0943 EDTAssociated Order(s): PROCEDURE REPORTS - SCANNED * IP COUNSEL, SCAN 2 - 01/10/2013 0943 EDTAssociated Order(s): ECG REPORT - SCANNED * IP COUNSEL, SCAN 2 - 01/07/2013 1406 EDTAssociated Order(s): ECG REPORT - SCANNED * IP COUNSEL, SCAN 2 - 01/07/2013 0932 EDTAssociated Order(s): ECG REPORT - SCANNED * Leonardo Khan Jr., MD - 01/03/2013 1150 EDT Images from the original note were not included. Cath Note (See full report for detail) Indication: Class 3 anginal equivalent (dyspnea with minimal exertion); abnormal nuclear stress test Findings: Mid left anterior descending coronary artery (twin LAD system) with 75%. RCA with diffuseminor irregularities. RCA dominant. One Resolute GLORIA placed into the mid left anterior descending coronary artery. No complications. Plan: Same day discharge. DAPT with ASA/clopidogrel for one year Risk factor modifications Cardiac rehabilitation Follow-up with Bianca Headley in 30 days. left anterior descending coronary artery prior to percutaneous coronary intervention left anterior descending coronary artery after percutaneous coronary intervention Leonardo Khan Jr. MD refrigerating machine operator [facility] Pager # [phone] documented in this encounter Miscellaneous Notes * Scanned Note-Null - IP COUNSEL, SCAN 2 - 01/10/2013 0943 EDT * Scanned Note-Null - IP COUNSEL, SCAN 2 - 01/10/2013 0943 EDT * Scanned Note-Null - IP COUNSEL, SCAN 2 - 01/10/2013 0943 EDT * Scanned Note-Null - IP COUNSEL, SCAN 2 - 01/03/2013 0809 EDT * Scanned Note-Null - IP COUNSEL, SCAN 2 - 01/03/2013 0809 EDT * Scanned Note-Null - IP COUNSEL, SCAN 2 - 01/03/2013 0809 EDT documented in this encounter Plan of Treatment Upcoming Encounters Date Type Department Care Team (Late st Contact Info) Description 05/19/2024 11:00 EST Office Visit [facility] Family Medicine [facility] [address], [address] [place], [place] [address] Dane Rick MD [address] [place] [address] documented as of this encounter Procedures Procedure Name Priority Date/Time Associated Diagnosis Comments PROCEDURE REPORTS - SCANNED 01/10/2013 9:43 EDT ECG REPORT - SCANNED 01/10/2013 9:43 EDT INVASIVE CARDIOLOGY REPORT-SCANNED 01/10/2013 9:43 EDT ECG REPORT - SCANNED 01/07/2013 14:06 EDT ECG REPORT - SCANNED 01/07/2013 9:32 EDT EKG 12-LEAD Routine 01/03/2013 13:26 EDT EKG 12-LEAD Routine 01/03/2013 9:27 EDT CK MB WITH TOTAL CK Routine 01/03/2013 9 :05 EDT PROTIME STAT 01/03/2013 8:34 EDT COMPLETE BLOOD COUNT STAT 01/03/2013 8:34 EDT BUN STAT 01/03/2013 8:34 EDT CREATININE STAT 01/03/2013 8:34 EDT ELECTROLYTES STAT 01/03/2013 8:34 EDT documented in this encounter Results * ECG REPORT - SCANNED (01/10/2013 9:43 EDT) 01/10/2013 9:43 EDT Narrative 01/10/2013 10:05 EDT Procedure Note IP COUNSEL, SCAN 2 - 01/10/2013 9:43 EDT Scan 2 Integrity Director PROCEDURE/MINOR PRINCESS GICAL ORDERABLES * PROCEDURE REPORTS - SCANNED (01/10/2013 9:43 EDT) 01/10/2013 9:43 EDT Narrative 01/10/2013 10:05 EDT Procedure Note IP COUNSEL, SCAN 2 - 01/10/2013 9:43 EDT Scan 2 Integrity Director PROCEDURE/MINOR PRINCESS GICAL ORDERABLES * INVASIVE CARDIOLOGY REPORT-SCANNED (01/10/2013 9:43 EDT) 01/10/2013 9:43 EDT Narrative 01/10/2013 10:05 EDT Procedure Note IP COUNSEL, SCAN 2 - 01/10/2013 9:43 EDT Scan 2 Integrity Director PROCEDURE/MINOR PRINCESS GICAL ORDERABLES * ECG REPORT - SCANNED (01/07/2013 14:06 EDT) 01/07/2013 14:0 6 EDT Narrative 01/07/2013 20:54 EDT Procedure Note IP COUNSEL, SCAN 2 - 01/07/2013 14:06 EDT Scan 2 Integrity Director PROCEDURE/MINOR PRINCESS GICAL ORDERABLES * ECG REPORT - SCANNED (01/07/2013 9:32 EDT) 01/07/2013 9:32 EDT Narrative 01/07/2013 14:05 EDT Procedure Note IP COUNSEL, SCAN 2 - 01/07/2013 9:32 EDT Scan 2 Integrity Director PROCEDURE/MINOR PRINCESS GICAL ORDERABLES * EKG 12-LEAD (01/03/2013 13:26 EDT) 01/03/2013 13:2 6 EDT Narrative [facility] - 01/06/2013 13:17 EDT ?[facility] ? Test Date: ?2013-01-03 Pat Name: ? KENYATTA LOPEZ ? Department: ?? CVU ? Room: ? CVU11 Gender: ? 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 [id number] : ?1940 ? Requested By: EMORY HA MD Order Number: [id number] ? Reading : ?? LEONARDO KHAN MD ? Measurements Intervals ?[place] ? Rate: ? 50 ? P: ?48 ME: ? 211 ?QRS: ?-16 QRSD: ? 94 ? T: ?79 QT: ? 453 ? QTc: ?425 ? Interpretive Statements SINUS BRADYCARDIA WITH SINUS ARRHYTHMIA WITH FIRST DEGREE AV BLOCK NONSPECIFIC T-WAVE ABNORMALITY Compared to ECG 01/03/2013 09:27:08 First degree AV block now present Electronically Signed On 01-06-13 13:17:25 EDT by LEONARDO KHAN MD Procedure Note Leonardo Khan Jr., MD - 01/06/2013 [facility] Test Date: 2013-01-03 Pat Name: KENYATTA LOPEZ Department: CVU Room: [facility] Gender: F Fountain Waitress/Waiter: [id number] : 1940 Requested By: EMORY HA MD Order Number: [id number] Reading MD: LEONARDO KHAN MD Measurements Intervals [place] Rate: 50 P: 48 ME: 211 QRS: -16 QRSD: 94 T: 79 QT: 453 QTc: 425 Interpretive Statements SINUS BRADYCARDIA WITH SINUS ARRHYTHMIA WITH FIRST DEGREE AV BLOCK NONSPECIFIC T-WAVE ABNORMALITY Compared to ECG 01/03/2013 09:27:08 First degree AV block now present Electronically Signed On 01-06-13 13:17:25 EDT by LEONARDO KHAN MD Emory Ha MD CARDIAC ECG ORDERABL ES [facility] [address] [place] [address] * EKG 12-LEAD (01/03/2013 9:27 EDT) 01/03/2013 9:27 EDT Narrative [facility] - 01/03/2013 15:58 EDT ?[facility] ? Test Date: ?2013-01-03 Pat Name: ? KENYATTA DORANINGTON ? Department: ?? CVU ? Room: ? CVU11 Gender: ? 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 [id number] : ?1940 ? Requested By: JOAO POZO MD Order Number: [id number] ?Reading : ?? ELIA NAZARIO MD ? Measurements Intervals ?[place] ? Rate: ? 51 ? P: ?40 ME: ? 187 ?QRS: ?-16 QRSD: ? 90 ? T: ?73 QT: ? 431 ? QTc: ?407 ? Interpretive Statements SINUS BRADYCARDIA WITH SINUS ARRHYTHMIA NONSPECIFIC T-WAVE ABNORMALITY No previous ECG available for comparison Electronically Signed On 01-03-13 15:58:21 EDT by ELIA NAZARIO MD Procedure Note Elia Nazario MD - 01/03/2013 [facility] Test Date: 2013-01-03 Pat Name: KENYATTA LOPEZ Department: CVU Room: [facility] Gender: F Fountain Waitress/Waiter: [id number] : 1940 Requested By: JOAO POZO MD Order Number: [id number] Corinna MD: ELIA NAZARIO MD Measurements Intervals [place] Rate: 51 P: 40 ME: 187 QRS: -16 QRSD: 90 T: 73 QT: 431 QTc: 407 Interpretive Statements SINUS BRADYCARDIA WITH SINUS ARRHYTHMIA NONSPECIFIC T-WAVE ABNORMALITY No previous ECG available for comparison Electronically Signed On 01-03-13 15:58:21 EDT by ELIA NAZARIO MD Joao Pozo MD CARDIAC ECG ORDERAB LES [facility] [address] [place] [address] * CK MB WITH TOTAL CK (01/03/2013 9:05 EDT) CK 50 30 - 135 U/L [facility] MB 1.32 <2.95 ng/ml [facility] Blood specimen (specimen) 01/03/2013 9:05 EDT 01/03/2013 9:19 EDT Joao Pozo MD CHEMISTRY & BLOOD G ORDERABLES Performing Organization Address [facility] de Phone Number [facility] [address] [place] [address] * PROTIME (01/03/2013 8:34 EDT) Pathologist [facility] Pro Time 9.9 9.5 - 13.1 secs [facility] I.N.R. 0.9 0.9 - 1.1 Ratio [facility] Comment: Moderate Intensity Coumadin INR = 2.0-3.0 Adjustments in anticoagulant therapy dose should be based upon the INR and NOT the Pro Time. Blood specimen (specimen) 01/03/2013 8:34 EDT 01/03/2013 9:03 EDT Joao Pozo MD HEMATOLOGY & PF4 OR DERABLES Performing Organization Address [facility] de Phone Number [facility] [address] [place] [address] * HEMAGRAM (01/03/2013 8:34 EDT) WBC 9.02 4.0 - 12.4 K/cmm [facility] RBC 4.62 3.86 - 5.04 M/cmm [facility] Hemoglobin 13.3 11.6 - 15.2 gm/dl [facility] HCT 41.1 34.9 - 44.4 % [facility] MCV 89 81 - 98 fl [facility] MCH 28.7 26.7 - 33.3 pg [facility] MCHC 32.3 32.1 - 35.9 gm/dl [facility] PLT 267 141 - 320 K/cmm [facility] RDW-CV 13.2 11.7 - 14.6 % [facility] Blood specimen (specimen) 01/03/2013 8:34 EDT 01/03/2013 9:03 EDT Joao Pozo MD HEMATOLOGY & PF4 OR DERABLES Performing Organization Address [facility] Phone Number [facility] [address] [place] [address] * CREATININE (01/03/2013 8:34 EDT) Creatinine 0.67 0.52 - 1.04 mg/dl [facility] GFR, Calculated >60 >60 ml/min/1.7 3m2 [facility] Blood specimen (specimen) 01/03/2013 8:34 EDT 01/03/2013 9:03 EDT Joao Pozo MD CHEMISTRY & BLOOD G ORDERABLES Performing Organization Address [facility] Phone Number [facility] [address] [place] [address] * BUN (01/03/2013 8:34 EDT) BUN 17 10 - 26 mg/dl [facility] Blood specimen (specimen) 01/03/2013 8:34 EDT 01/03/2013 9:03 EDT Joao Pozo MD CHEMISTRY & BLOOD G ORDERABLES Performing Organization Address [facility] Phone Number [facility] [address] [place] [address] * ELECTROLYTES (01/03/2013 8:34 EDT) Sodium 140 136 - 145 mEq/L [facility] Potassium 4.9 3.5 - 5.0 mEq/L [facility] Chloride 103 96 - 110 mEq/L [facility] CO2 28 24 - 32 mEq/L [facility] Blood specimen (specimen) 01/03/2013 8:34 EDT 01/03/2013 9:03 EDT Joao Pozo MD CHEMISTRY & BLOOD G ORDERABLES [facility] [address] [place] [address] documented in this encounter Visit Diagnoses Not on filedocumented in this encounter Administered Medications Inactive Administered Medications - up to 3 most recent administrations Medication Order MAR Action Action Date Dose Rate Site clopidogrel (PLAVIX) tablet 600 mg 600 mg, oral, NOW X1, 1 dose, On Sun01/03/13 at 0830, Routine Given 01/03/2013 8:55 EDT 600 mg sodium chloride 0.9 % (NS) infusion 30 mL/hr, intravenous, CONTINUOUS, Starting on Sun01/03/13 at 0830, Until Sun01/03/13 at 1909, Routine New Bag 01/03/2013 8:45 EDT 30 mL/hr 30 mL/hr documented in this encounter Discontinued Medications Medication Sig Discontinue Reason Start Date End Da te lisinopril (PRINIVIL, ZESTRIL) 10 mg tablet Take 10 mg by mouth daily. Error 01/01/2013 documented as of this encounter Historical Medications * This list may reflect changes made after this encounter. Medication Sig Dispensed Refills Start Date End Date furosemide (LASIX) 20 mg tablet Take 20 mg by mouth daily. 07/24/2019 metoprolol XL (TOPROL-XL) 50 mg tablet Take 50 mg by mouth daily. 02/28/2019 losartan (COZAAR) 50 mg tablet Take 50 mg by mouth daily. 04/14/2019 aspirin 81 mg EC tablet Take 81 mg by mouth every 48 hours. 06/29/2022 lovastatin (MEVACOR) 20 mg tablet Take 20 mg by mouth daily. 07/24/2019 added in this encounter Active and Recently Administered Medications Times are shown in EDT. Scheduled Medication Order 01/01/2013 01/02/2013 01/03/2013 clopidogrel (PLAVIX) tablet 600 mg (COMPLETED) 600 mg, oral, NOW X1, 1 dose, On Sun01/03/13 at 0830, Routine 0855 (Given - Provid er: Elisabet Martinez RN) clopidogrel (PLAVIX) tablet 75 mg 75 mg, oral, DAILY, First dose on Sun01/04/13 at 0900, Until Discontinued, Routine Continuous Medication Order 01/01/2013 01/02/2013 01/03/2013 sodium chloride 0.9 % (NS) infusion (CANCELED) 30 mL/hr, intravenous, CONTINUOUS, Starting on Sun01/03/13 at 0830, Until Sun01/03/13 at 1909, Routine 0845 (New Bag - Prov ider: Elisabet Martinez RN) documented in this encounter Orders Medications Ordered That Salbador ht Not Have Been Administered Count Last Ordered Date First Ordered Date acetaminophen (TYLENOL) tablet 650 mg 1 07/2012 clopidogrel (PLAVIX) tablet 75 mg 1 013 lidocaine-EPINEPHrine 2 %-1: 100,000 injection 5-10 mL 1 01/03/2013 sodium chloride 0.9 % (NS) infusion 1 01/03 Nursing Count Last Ordered Date First Orde red Date INSERT PERIPHERAL IV 1 01/03/2013 MEASURE BLOOD PRESSURE 1 01/03/2013 NOTIFY PHYSICIAN (SPECIFY) 2 01/03/2013 PATIENT AT LOW RISK FOR VTE: RISK OF PHARMACOLOGIC PROPHYLAXIS OUTWEIG 1 01/03/2013 VITAL SIGNS 2 01/03/2013 Transfer Count Last Ordered Date First Orde red Date NOTIFY PPS OF DISCHARGE COMPLETE 1 01/04/20 13 Discharge Count Last Ordered Date First Orde red Date DISCHARGE PATIENT 1 01/03/2013 documented in this encounter Care Teams Quiller Hand Relationship Specialty Start Date End Date Antelmo Gee MD PCP - General 01/14/10 08/08/22 documented as of this encounter
--- OUTSIDE RECORDS SUMMARY | 2024-02-08 01:14 | XMS_ITS | Encounter Summary ---
Author Organization [facility] Address [address] [place] [address] Care Team Providers Care Dedenter Name Role Phone Otis Gee MD Primary Care Provider Unava ilable Reason for Visit * Reason Onset Date Comments Leg Swelling 04/23/2019 Encounter Details Date Type Department Care Team ([facility] st Contact Info) Description 04/23/2019 Telephone [facility] Medicine [place] [address] [address] , [facility] [address] [place], [place] [id number] Otis Gee MD Leg Swelling Social History Tobacco Use Types Packs/Day Years [...] Telephone Encounter - Nathaniel Arreaga RN - 04/25/2019 1348 EST Left message voicemail, patient has OV with TC. * Telephone Encounter - Nathaniel Arreaga RN - 04/24/2019 0951 EST Was told that for the Joseph hose to be ordered, and covered by insurance willl need a office visit stating patient needs the compression stocking. This abstract writer left message to voicemail to call us back.Patient can buy Support stocking OTC at [facility] is another option. * Telephone Encounter - Nathaniel Arreaga RN - 04/24/2019 0945 EST Talked to the patient to book a follow up, offered a sooner appointment but wants to see TC, bookedwith TC 2/3 for follow up, patient is wondering if we can prescribed her a JOSEPH hose to help with the swelling of her legs, The PT that she is seeing told her so, patient not sure of her size/ girth. * Telephone Encounter - Karla Mcrae - 04/23/2019 1315 EST Patient was seen in the ER for her LT leg which they did an Xray and US and was told that they believe it to be a sprain. She states that she has an extremely high pain tolerance. However, the pain was excruciating. Additionally, she states that it the pain is still present along with a lot of swelling in the ankle. She has an lucita bandage on it. She was given a tube at PT yesterday. Although, sheis getting deep creases. She was told by PT that she should get support stockings for the swelling. documented in this encounter Plan of Treatment Upcoming Encounters Date Type Department Care Team (Late st Contact Info) Description 05/19/2024 11:00 EST Office Visit [facility] Family Medicine [address], [address] [place] [address] Dane Rick MD [address] [place] [address] [address] [place] [phone] documented as of this encounter Visit Diagnoses Not on filedocumented in this encounter Care Teams Dedenter Relationship Specialty Start Date End Date Otis Gee MD PCP - General 01/14/10 08/08/22 documented as of this encounter
--- OUTSIDE RECORDS SUMMARY | 2024-02-08 01:14 | XMS_ITS | Encounter Summary ---
Author Organization [facility] Address [address] [place] [address] Care Team Providers Care Carpenter Assistant Name Role Phone Otis Gee MD Primary Care Provider Unava ilable Encounter Details Date Type Department Care Team (Late Contact Info) Description 11/15/2010 Abstract Used for ABSTRACTING Data [phone] Yared Romero MD [address] [phone] Social History Tobacco Use Types Packs/Day Years Used Date Smoking Tobacco: Never Assessed Sex and Gender Information Value Date Recorded Sex Assigned at Not on file Gender Identity Female 02/28/2019 7:38 EST Sexual Orientation Not on file documented as of this encounter Plan of Treatment Upcoming Encounters Date Type Department Care Team ([facility] Contact Info) Description 05/19/2024 11:00 EST Office Visit [facility] [place] [address], [facility] [address] [place] [address] Dane Rick MD [address] [place] [phone] documented as of this encounter Visit Diagnoses Not on filedocumented in this encounter Historical Medications * This list may reflect changes made after this encounter. Medication Sig Dispensed Refills Start Date End Date lisinopril (PRINIVIL, ZESTRIL) 10 mg tablet Take 10 mg by mouth daily. 01/01/2013 added in this encounter Care Teams Carpenter Assistant Relationship Specialty Start Date End Date Otis Gee MD PCP - General 01/14/10 08/08/22 documented as of this encounter
--- OUTSIDE RECORDS SUMMARY | 2024-02-08 01:14 | XMS_ITS | Encounter Summary ---
Author Organization [facility] Address [address] [place] [address] Care Team Providers Care Yacht Hand Name Role Phone Unavailable Primary Care Provider Unavailabl e Encounter Details Date Type Department Care Team ([facility] st Contact Info) Description 01/09/2008 7:48 EDT Hospital Encounter [facility] [address] [place] [address] Yared Romero MD [address] [phone] Social History Tobacco Use Types Packs/Day Years [...] 14:35 EDT documented as of this encounter Plan of Treatment Upcoming Encounters Date Type Department Care Team (Late st Contact Info) Description 05/19/2024 11:00 EST Office Visit [address], [facility] 2 [place] [address] Dane Rick MD [address] [place] [address] [address] [place] [phone] documented as of this encounter Visit Diagnoses Not on filedocumented in this encounter Additional Health Concerns Infection Onset Date Last Indicated Resolved Time R/O COVID-19 08/13/2023 08/13/2023 08/13/2023 20:0 7 EDT documented as of this encounter
--- OUTSIDE RECORDS SUMMARY | 2024-02-08 01:14 | XMS_ITS | Encounter Summary ---
Author Organization [facility] Address [address] [place] [address] Care Team Providers Care Horse Farm Manager Name Role Phone Otis Gee MD Primary Care Provider Unava ilable Reason for Visit * Reason Onset Date Comments Medications Refill 02/10/2019 Encounter Details Date Type Department Care Team ([facility] st Contact Info) Description 02/10/2019 Telephone [place] [address], [facility] [address] [place], [place] [address] Otis Gee MD Medications Refill Social History [...] times daily for 90 days. 180 Tab 02/10/2019 05/06/2019 buPROPion (WELLBUTRIN SR) 150 mg SR tabletIndications:anxiety with depression Take 1 Tab by mouth 2 times daily for 90 days. 180 Tab 02/10/2019 02/10/2019 documented in this encounter Miscellaneous Notes * Addendum Note - Nathaniel Arreaga RN - 02/10/2019 1124 ESTAddended by: NATHANIEL ARREAGA on: 02/10/2019 11:24 Modules accepted: Orders * Telephone Encounter - Nathaniel Arreaga RN - 02/10/2019 1117 EST WELLBUTRIN CALLED IN * Telephone Encounter - Nathaniel Arreaga RN - 02/10/2019 1057 EST lprazepam 0.5 mg 3 times daily as needed 90 days 270 tabs, 0 refill, Called in * Telephone Encounter - Nathaniel Arreaga RN - 02/10/2019 1040 EST Bupropion sent to [facility] * Telephone Encounter - Otis Gee MD - 02/10/2019 1012 EST Okay to refill each for 90 days with one refill * Telephone Encounter - Nathaniel Arreaga RN - 02/10/2019 0957 EST Ok to fill both meds? * Telephone Encounter - Cathie Coombs - 02/10/2019 0924 EST Pt needs a refill for lorazepam, pt thinks that RX is only set for 30 days and needs to 90 days. Ptwould like RX sent to [facility] in [place]. Pt also needs a refill bupropion. Pt is out of this medication. Pt would like these LENARD. documented in this encounter Plan of Treatment Upcoming Encounters Date Type Department Care Team (Late st Contact Info) Description 05/19/2024 11:00 EST Office Visit [facility] Family Medicine [facility] [address], [address] [place] [address] Dane Rick MD [address] [facility] [address] [place] [address] documented as of this encounter Visit Diagnoses Diagnosis Anxiety- Primary Anxiety state, unspecified documented in this encounter Discontinued Medications Medication Sig Discontinue Reason Start Date End Da te buPROPion (WELLBUTRIN SR) 150 mg SR tablet Take 150 mg by mouth 2 times daily. Reorder 12/11/2018 02/10/2019 buPROPion (WELLBUTRIN SR) 150 mg SR tabletIndications:anxiety with depression Take 1 Tab by mouth 2 times daily for 90 days. 02/10/2019 02/10/2019 documented as of this encounter Historical Medications * This list may reflect changes made after this encounter. Medication Sig Dispensed Refills Start Date End Date LORazepam (ATIVAN) 0.5 mg tablet Take 0.5 mg by mouth 3 times daily as needed. 06/08/2016 05/06/2019 buPROPion (WELLBUTRIN SR) 150 mg SR tablet Take 150 mg by mouth 2 times daily. 5 12/11/2018 02/10/2019 added in this encounter Care Teams Horse Farm Manager Relationship Specialty Start Date End Date Otis Gee MD PCP - General 01/14/10 08/08/22 documented as of this encounter
--- OUTSIDE RECORDS SUMMARY | 2024-02-08 01:14 | XMS_ITS | Encounter Summary ---
Author Organization [facility] Address [address] [place] [address] Care Team Providers Care Beauty Operator Name Role Phone Otis Gee MD Primary Care Provider Unava ilable Encounter Details Date Type Department Care Team ([facility] Contact Info) Description 02/22/2019 Abstract [facility] Adult Primary Care - [address] [address] Ambulatory, Lead Systems Developer Social History Tobacco Use Types Packs/Day Years [...] Upcoming Encounters Date Type Department Care Team ([facility] Contact Info) Description 05/19/2024 11:00 EST Office Visit [facility] Family Medicine [address], [address] [place] [address] Dane Rick MD [address] [place] [address] [address] [place] [phone] documented as of this encounter Visit Diagnoses Not on filedocumented in this encounter Historical Medications * This list may reflect changes made after this encounter. Medication Sig Dispensed Refills Start Date End Date buPROPion (WELLBUTRIN SR) 150 mg SR tablet Take 1 Tab by mouth daily. 02/28/2019 methocarbamol (ROBAXIN) 500 mg tablet 1-2 tab(s) orally every 6-8 hours as needed for spasm 02/28/2019 oxyCODONE (ROXICODONE) 5 mg immediate release tablet Take 5 mg by mouth. every 6-8 hours PRN for pain 02/28/2019 added in this encounter Care Teams Beauty Operator Relationship Specialty Start Date End Date Otis Gee MD PCP - General 01/14/10 08/08/22 documented as of this encounter
--- OUTSIDE RECORDS SUMMARY | 2024-02-08 01:14 | XMS_ITS | Encounter Summary ---
Author Organization [facility] Address [address] [place] [address] Care Team Providers Care Reciprocating Drill Operator Name Role Phone Otis Gee MD Primary Care Provider Joseph easley Encounter Details Date Type Department Care Team (Latest Contact Info) Description 12/28/2014 11:12 EDT - 12/28/2014 23:59 EDT Hospital Encounter [facility] [address] [place] [address] Unknown, Provider, Discharge Disposition: Home or Self [...] Code Departure Means Destination Home or Self Senior Living documented in this encounter Plan of Treatment Upcoming Encounters Date Type Department Care Team ( st Contact Info) Description 05/19/2024 11:00 EST Office Visit [address], [facility] 2 [place] [address] Dane Rick MD [address] [place] [phone] documented as of this encounter Visit Diagnoses Not on filedocumented in this encounter Care Teams Reciprocating Drill Operator Relationship Specialty Start Date End Date Otis Gee MD PCP - General 01/14/10 08/08/22 documented as of this encounter
--- OUTSIDE RECORDS SUMMARY | 2024-02-08 01:14 | XMS_ITS | Encounter Summary ---
Author Organization [facility] Address [address] [place] [address] Care Team Providers Care Sharepoint Solutions Architect Name Role Phone Otis Gee MD Primary Care Provider Elisabet Mathews RN Unavailable [phone] Vicky Chamberlain Unavailable [phone] Dane Rick MD Primary Care Provider [phone] Leticia Lieberman Unavailable Mendoza Guzmán MD Unavailable [phone] Encounter Details Date Type Department Care Team (Late st Contact Info) Description 01/15/2019 Historical Results Only [facility] [address] [place] [address] Unknown, Provider, Social History Tobacco Use Types Packs/Day Years [...] Visit [facility] Family Medicine [facility] [address] [facility], [place] [address] [place] [address] Dane Rick MD [address] [facility] [address] [place] [address] documented as of this encounter Procedures Procedure Name Priority Date/Time Associated Diagnosis Comments TRANSTHORACIC ECHO (TTE) COMPLETE 01/15/2019 12:09 EDT COMPLETE BLOOD COUNT WITH DIFFERENTIAL (AUTO) Routine 01/15/2019 6:00 EDT TROPONIN I Routine 01/15/2019 6:00 EDT TSH Routine 01/15/2019 6:00 EDT MAGNESIUM Routine 01/15/2019 6:00 EDT BASIC METABOLIC PANEL (BMP) Routine 01/15/2019 6:00 EDT documented in this encounter Results * TRANSTHORACIC ECHO (TTE) COMPLETE (01/15/2019 12:09 EDT) Anatomical Region Laterality Modality Ultrasound 01/15/2019 12:0 9 EDT Narrative 01/15/2019 12:09 EDT ?[facility] ?[address] [address] ? [id number] ? E C H O C A R D I O G R A M ? R E P O R T NAME: ANDRIA LOPEZ ? : 42 ? LOCATION: 2S ? TELEPHONE: [phone] ?MR#: [id number] ? *[facility]* *[facility]* [address] [place] [address] Date of study: 01/15/2019 Transthoracic Echocardiography M-mode, complete 2D, complete spectral Doppler, and color Doppler *STUDY CONCLUSIONS* Summary: 1. Left ventricle: The cavity size was normal. Wall thickness was ?? normal. Systolic function was normal. The estimated ejection fraction ?? was 60-65%. Wall motion was normal; there were no regional wall ?? motion abnormalities. 2. Right ventricle: The cavity size was normal. Systolic function was ?? normal. 3. Aortic valve: Trileaflet; mildly thickened, mildly calcified ?? leaflets. Valve mobility was restricted. Transvalvular velocity was ?? increased. There was mild stenosis. There was mild regurgitation. VTI ?? ratio of LVOT to aortic valve: 0.57. 4. Pulmonary arteries: Pulmonary systolic pressure was increased, >= ?? 45mm Hg. *PATIENT PRESENTATION* Height: ? 152.4cm (60in ) S/D Pressure: 152 / 72 Weight: ? 98.4kg (216.5lb ) BSA: ?2.1m S 2 Test start time: ??12:10 PM. Test stop time: ??12:45 PM. APARTMENT MAINTENANCE TECHNICIAN ??Leola Sheikh ? Adriana Richard REFERRING ?Adriana Richard PERFORMING ?? [facility] *PROCEDURE DATA* Procedure information: ??The patient was identified by two identifiers. This study was interpreted by [facility] [place] [facility]. Pertinent images and digital ?[facility] ?[place] [address] [place] [address] ? [id number] ? E C H O C A R D I O G R A M ? R E P O R T NAME: ANDRIA LOPEZ ? : 42 ? LOCATION: 2S ? TELEPHONE: [phone] ?MR#: [id number] ? data are archived for permanent storage and are available for subsequent review. Comparison was made to the study of 08/05/2009. ??Study status: Routine. Transthoracic echocardiography. ??M-mode, complete 2D, complete spectral Doppler, and color Doppler. A Transthoracic Echocardiogram was performed. Scanning was performed from the parasternal, apical, subcostal, and suprasternal notch acoustic windows. Images were obtained using a [facility] IE33 2 cardiac ultrasound machine. Image quality was adequate. ??Study completion: ??The patient tolerated the procedure well. There were no complications. *INDICATIONS AND HISTORY* Indications: ??SYNCOPE / MURMUR *CARDIAC ANATOMY* Left ventricle: ??The cavity size was normal. Wall thickness was normal. Systolic function was normal. The estimated ejection fraction was 60-65%. Wall motion was normal; there were no regional wall motion abnormalities. Findings consistent with diastolic dysfunction. There was no evidence of elevated ventricular filling pressure by Doppler parameters. Aortic valve: ?? Trileaflet; mildly thickened, mildly calcified leaflets. Valve mobility was restricted. ??Doppler: ??Transvalvular velocity was increased. There was mild stenosis. There was mild regurgitation. ?VTI ratio of LVOT to aortic valve: 0.57. Valve area (VTI): 1.4cm S 2. Indexed valve area (VTI): 0.7cm S 2/m S 2. Mean velocity ratio of LVOT to aortic valve: 0.55. Valve area (Vmean): 1.4cm S 2. Indexed valve area (Vmean): 0.7cm S 2/m S 2. ?Mean gradient (S): 10.9mm Hg. Aorta: ??Aortic root: The aortic root was normal in size. Ascending aorta: The ascending aorta was normal in size. Mitral valve: ?? Mildly calcified annulus. Mildly thickened leaflets. Mobility was not restricted. ??Doppler: ??Transvalvular velocity was within the normal range. There was no evidence for stenosis. There was trivial regurgitation. ?Peak gradient (D): 4mm Hg. Left atrium: ??The atrium was normal in size. Right ventricle: ??The cavity size was normal. Systolic function was normal. Pulmonic valve: ?? Poorly visualized. ??Doppler: ??Transvalvular velocity was within the normal range. There was no evidence for stenosis. There was no significant regurgitation. Tricuspid valve: ?? Structurally normal valve. ?Doppler: ??Transvalvular velocity was within the normal range. There was no evidence for stenosis. There was mild regurgitation. Pulmonary artery: ?? Poorly visualized. Pulmonary systolic pressure was increased, >= 45mm Hg. Right atrium: ??The atrium was normal in size. Pericardium: ??A prominent pericardial fat pad was present. There was no pericardial effusion. ?[facility] ?[facility] [address] [place], [place] [address] ? [id number] ? E C H O C A R D I O G R A M ? R E P O R T NAME: ANDRIA LOPEZ ? : 42 ? LOCATION: 2S ? TELEPHONE: [phone] ?MR#: [id number] ? Systemic veins: Inferior vena cava: The vessel was normal in size. The respirophasic diameter changes were blunted (less than 50%). Measurements Left ventricle ?Value ?Reference LV ID, ED, PLAX ? 4.4 ?? cm ? 3.5 - 6.0 LV ID, ES, PLAX ? 2.8 ?? cm ? 2.1 - 4.0 LV PW thickness, ED, PLAX ? 0.9 ?? cm ? LV end-diastolic volume, 1-p A2C ?57 ?ml ? LV ejection fraction, 1-p A2C ? 54 ?% ? LV end-diastolic volume, 1-p A4C ?44 ?ml ? LV ejection fraction, 1-p A4C ? 61 ?% ? LV e', lateral ?0.08 ??m/sec ? LV E/e', lateral ?12 ? LV e', medial ? 0.059 m/sec ? LV E/e', medial ? 17 ? LV e', average ?0.07 ??m/sec ? LV E/e', average ?14 ? Ventricular septum ?Value ?Reference IVS thickness, ED, PLAX ? 1.0 ?? cm ? LVOT ?Value ?Reference LVOT ID, S ?1.8 ?? cm ? LVOT area ? 2.5 ?? cm S 2 ? LVOT peak velocity, S ? 1.27 ??m/sec ? LVOT mean velocity, S ? 0.85 ??m/sec ? LVOT VTI, S ? 31.5 ??cm ? LVOT peak gradient, S ? 6 ? mm Hg ? LVOT mean gradient, S ? 3 ? mm Hg ? Stroke volume (SV), LVOT DP ? 80 ?ml ? Stroke index (SV/bsa), LVOT DP ?38 ?ml/m S 2 ?? Aortic valve ?Value ?Reference Aortic valve mean velocity, S ? 1.5 ?? m/sec ? Aortic valve VTI, S ? 55.7 ??cm ? Aortic mean gradient, S ? 10.9 ??mm Hg ? VTI ratio, LVOT/AV ?0.57 ? Aortic valve area, VTI ?1.4 ?? cm S 2 ? Velocity ratio, mean, LVOT/AV ? 0.55 ? Aortic valve area, mean velocity ?1.4 ?? cm S 2 ? Aortic valve area/bsa, mean velocity ?0.7 ?? cm S 2/m S 2 Aortic regurg peak velocity ? 3.98 ??m/sec ? Aortic regurg velocity, ED ?3.98 ??m/sec ? Aortic regurg deceleration ?153 ?? cm/s S 2 ?? Aortic regurg pressure half-time ?761 ?? ms ? Aortic regurg peak gradient ? 63.4 ??mm Hg ? Aortic regurg gradient, ED ?63.4 ??mm Hg ?[facility] ?[facility] [address] [place], [place] [address] ? [id number] ? E C H O C A R D I O G R A M ? R E P O R T NAME: ANDRIA LOPEZ ? : 42 ? LOCATION: 2S ? TELEPHONE: [phone] ?MR#: [id number] ? Aorta ? Value ?Reference Aortic root ID ?2.8 ?? cm ? Ascending aorta ID, A-P ? 3.1 ?? cm ? Ascending aorta ID, A-P, S ?3.1 ?? cm ? Left atrium ? Value ?Reference LA ID, A-P, ES ?3.0 ?? cm ? LA ID/bsa, A-P ?1.4 ?? cm/m S 2 ?? <=2.2 LA volume, ES, 2-p ?49 ?ml ? LA volume/bsa, ES, 2-p ?23 ?ml/m S 2 ?? LA/aortic root ratio ?1.07 ? Mitral valve ?Value ?Reference Mitral E-wave peak velocity ? 1 ? m/sec ? Mitral A-wave peak velocity ? 0.6 ?? m/sec ? Mitral deceleration time ?(H) ? 253 ?? ms ? 150 - 230 Mitral peak gradient, D ? 4 ? mm Hg ? Mitral E/A ratio, peak ?1.67 ? Tricuspid valve ? Value ?Reference Tricuspid regurg peak velocity ?2.5 ?? m/sec ? Tricuspid peak RV-RA gradient ? 24.2 ??mm Hg ? Tricuspid maximal regurg velocity, ?2.46 ??m/sec ? PISA Right atrium ?Value ?Reference RA area, ES, A4C ?12.9 ??cm S 2 ? 8.3 - 19.5 Legend: (L) ??and ??(H) ??pat values outside specified reference range. I have personally reviewed the images and have reviewed and edited the reported findings. Electronically signed by Danya Pozo 01/15/2019 16:00 Procedure Note Danya Pozo MD, MD - 02/01/2019 [facility] [address] [place] [id number] E C H O C A R D I O G R A M R E P O R T NAME: ANDRIA LOPEZ : 42LOCATION: 2S TELEPHONE: [phone] MR#: [id number] *[facility]* *[facility]* [address] [place] [address] Date of study: 01/15/2019 Transthoracic Echocardiography M-mode, complete 2D, complete spectral Doppler, and color Doppler *STUDY CONCLUSIONS* Summary: 1. Left ventricle: The cavity size was normal. Wall thickness was normal. Systolic function was normal. The estimated ejection fraction was 60-65%. Wall motion was normal; there were no regional wall motion abnormalities. 2. Right ventricle: The cavity size was normal. Systolic function was normal. 3. Aortic valve: Trileaflet; mildly thickened, mildly calcified leaflets. Valve mobility was restricted. Transvalvular velocity was increased. There was mild stenosis. There was mild regurgitation. VTI ratio of LVOT to aortic valve: 0.57. 4. Pulmonary arteries: Pulmonary systolic pressure was increased, >= 45mm Hg. *PATIENT PRESENTATION* Height: 152.4cm (60in ) S/D Pressure: 152 / 72 Weight: 98.4kg (216.5lb ) BSA: 2.1m S 2 Test start time: 12:10 PM. Test stop time: 12:45 PM. APARTMENT MAINTENANCE TECHNICIAN Leola Sheikh Beth REFERRING Adriana Richard PERFORMING [facility] *PROCEDURE DATA* Procedure information: The patient was identified by two identifiers. This study was interpreted by [facility] [place] [facility]. Pertinent images and digital [facility] [address] [place], [place] [address] [id number] E C H O C A R D I O G R A M R E P O R T NAME: ANDRIA LOPEZ : 41LOCATION: 2S TELEPHONE: [phone] MR#: [id number] data are archived for permanent storage and are available for subsequent review. Comparison was made to the study of 08/05/2009. Study status: Routine. Transthoracic echocardiography. M-mode, complete 2D, complete spectral Doppler, and color Doppler. A Transthoracic Echocardiogram was performed. Scanning was performed from the parasternal, apical, subcostal, and suprasternal notch acoustic windows. Images were obtained using a [facility] IE33 2 cardiac ultrasound machine. Image quality was adequate. Study completion: The patient tolerated the procedure well. There were no complications. *INDICATIONS AND HISTORY* Indications: SYNCOPE / MURMUR *CARDIAC ANATOMY* Left ventricle: The cavity size was normal. Wall thickness was normal. Systolic function was normal. The estimated ejection fraction was 60-65%. Wall motion was normal; there were no regional wall motion abnormalities. Findings consistent with diastolic dysfunction. There was no evidence of elevated ventricular filling pressure by Doppler parameters. Aortic valve: Trileaflet; mildly thickened, mildly calcified leaflets. Valve mobility was restricted. Doppler: Transvalvular velocity was increased. There was mild stenosis. There was mild regurgitation. VTI ratio of LVOT to aortic valve: 0.57. Valve area (VTI): 1.4cm S 2.Indexed valve area (VTI): 0.7cm S 2/m S 2. Mean velocity ratio of LVOT to aortic valve: 0.55. Valve area (Vmean): 1.4cm S 2. Indexed valve area (Vmean): 0.7cm S 2/m S 2. Mean gradient (S): 10.9mm Hg. Aorta: Aortic root: The aortic root was normal in size. Ascending aorta: The ascending aorta was normal in size. Mitral valve: Mildly calcified annulus. Mildly thickened leaflets. Mobility was not restricted. Doppler: Transvalvular velocity was within the normal range. There was no evidence for stenosis. There was trivial regurgitation. Peak gradient (D): 4mm Hg. Left atrium: The atrium was normal in size. Right ventricle: The cavity size was normal. Systolic function was normal. Pulmonic valve: Poorly visualized. Doppler: Transvalvular velocity was within the normal range. There was no evidence for stenosis. There was no significant regurgitation. Tricuspid valve: Structurally normal valve. Doppler: Transvalvular velocity was within the normal range. There was no evidence for stenosis. There was mild regurgitation. Pulmonary artery: Poorly visualized. Pulmonary systolic pressure was increased, >= 45mm Hg. Right atrium: The atrium was normal in size. Pericardium: A prominent pericardial fat pad was present. There was no pericardial effusion. [facility] [address] [place] [id number] E C H O C A R D I O G R A M R E P O R T NAME: ANDRIA LOPEZ : 41LOCATION: 2S TELEPHONE: [phone] MR#: [id number] Systemic veins: Inferior vena cava: The vessel was normal in size. The respirophasic diameter changes were blunted (less than 50%). Measurements Left ventricle Value Reference LV ID, ED, PLAX 4.4 cm 3.5 - 6.0 LV ID, ES, PLAX 2.8 cm 2.1 - 4.0 LV PW thickness, ED, PLAX 0.9 cm LV end-diastolic volume, 1-p A2C 57 ml LV ejection fraction, 1-p A2C 54 % LV end-diastolic volume, 1-p A4C 44 ml LV ejection fraction, 1-p A4C 61 % LV e', lateral 0.08 m/sec LV E/e', lateral 12 LV e', medial 0.059 m/sec LV E/e', medial 17 LV e', average 0.07 m/sec LV E/e', average 14 Ventricular septum Value Reference IVS thickness, ED, PLAX 1.0 cm LVOT Value Reference LVOT ID, S 1.8 cm LVOT area 2.5 cm S 2 LVOT peak velocity, S 1.27 m/sec LVOT mean velocity, S 0.85 m/sec LVOT VTI, S 31.5 cm LVOT peak gradient, S 6 mm Hg LVOT mean gradient, S 3 mm Hg Stroke volume (SV), LVOT DP 80 ml Stroke index (SV/bsa), LVOT DP 38 ml/m S 2 Aortic valve Value Reference Aortic valve mean velocity, S 1.5 m/sec Aortic valve VTI, S 55.7 cm Aortic mean gradient, S 10.9 mm Hg VTI ratio, LVOT/AV 0.57 Aortic valve area, VTI 1.4 cm S 2 Velocity ratio, mean, LVOT/AV 0.55 Aortic valve area, mean velocity 1.4 cm S 2 Aortic valve area/bsa, mean velocity 0.7 cm S 2/m S 2 Aortic regurg peak velocity 3.98 m/sec Aortic regurg velocity, ED 3.98 m/sec Aortic regurg deceleration 153 cm/s S 2 Aortic regurg pressure half-time 761 ms Aortic regurg peak gradient 63.4 mm Hg Aortic regurg gradient, ED 63.4 mm Hg [facility] [address] [place], [place] [address] [id number] E C H O C A R D I O G R A M R E P O R T NAME: ANDRIA LOPEZ Ivna : 41LOCATION: 2S TELEPHONE: [phone] MR#: [id number] Aorta Value Reference Aortic root ID 2.8 cm Ascending aorta ID, A-P 3.1 cm Ascending aorta ID, A-P, S 3.1 cm Left atrium Value Reference LA ID, A-P, ES 3.0 cm LA ID/bsa, A-P 1.4 cm/m S 2 <=2.2 LA volume, ES, 2-p 49 ml LA volume/bsa, ES, 2-p 23 ml/m S 2 LA/aortic root ratio 1.07 Mitral valve Value Reference Mitral E-wave peak velocity 1 m/sec Mitral A-wave peak velocity 0.6 m/sec Mitral deceleration time (H) 253 ms 150 - 230 Mitral peak gradient, D 4 mm Hg Mitral E/A ratio, peak 1.67 Tricuspid valve Value Reference Tricuspid regurg peak velocity 2.5 m/sec Tricuspid peak RV-RA gradient 24.2 mm Hg Tricuspid maximal regurg velocity, 2.46 m/sec PISA Right atrium Value Reference RA area, ES, A4C 12.9 cm S 2 8.3 -19.5 Legend: (L) and (H) pat values outside specified reference range. I have personally reviewed the images and have reviewed and edited the reported findings. Electronically signed by Danya Pozo 01/15/2019 16:00 Provider Unknown CARDIAC ECHO ORDERAB LES * TSH (01/15/2019 6:00 EDT) [facility] THYROID STIM HORMONE [facility] 0.68 0.46 - 4.68 uIU/ml 01/15/2019 7:55 EDT [facility] Comment: The results of this assay can be falsely lowered due to the consumption of Biotin. 01/15/2019 6:00 EDT 01/15/2019 6:43 EDT Adriana Richard DO CHEMISTRY & BLOOD G ORDERABLES [facility] * TROPONIN I (01/15/2019 6:00 EDT) [facility] Troponin I (ng/mL) <0.034 0.000 - 0.034 ng/mL 01/15/2019 7:34 [facility] Comment: Interpretation comments: ??Cutoff for a positive troponin result is set at the 99th percentile of the upper reference limit. ??Elevated troponin must always be interpreted in the context of the clinical presentation. ?Serial troponin testing 3-6 hr from baseline is favored over relying on a single troponin level. ?? The results of this assay can be falsely lowered due to the consumption of Biotin. 01/15/2019 6:00 EDT 01/15/2019 6:43 EDT Adriana Richard DO CHEMISTRY & BLOOD G ORDERABLES Performing Organization Address [facility] Co de Phone Number [facility] * MAGNESIUM (01/15/2019 6:00 EDT) [facility] Magnesium 2.10 1.7 - 2.8 mg/dL 01/15/2019 7:26 [facility] 01/15/2019 6:00 EDT 01/15/2019 6:43 EDT Adriana Richard DO CHEMISTRY & BLOOD G ORDERABLES Performing Organization Address [facility] Co de Phone Number [facility] * (ABNORMAL) BASIC METABOLIC PANEL (BMP) (01/15/2019 6:00 EDT) [facility] BUN - [facility] 15 10 - 26 mg/dL 01/15/2019 7:26 [facility] CALCIUM - [facility] 10.3 8.5 - 10.5 mg/dL 01/15/2019 7:26 [facility] Chloride 103 96 - 110 mmol/L 01/15/2019 7:26 [facility] CO2 Total 25 22 - 32 mEq/L 01/15/2019 7:26 [facility] CREATININE 0.86 0.52 - 1.04 mg/dL 01/15/2019 7:26 [facility] eGFR >60 01/15/2019 7:26 [facility] Comment: Chronic renal impairment is defined as GFR <60 Multiply result by 1.210 for patients. eGFR calculated using the IDMS-traceable MDRD Study Equation. ??(effective 02/02/2014) Anion Gap 8 0 - 18 01/15/2019 7:26 EDT [facility] GLUCOSE - [facility] 134(H) 70 - 100 mg/dL 01/15/2019 7:26 EDT [facility] Potassium 4.9 3.5 - 5.0 mEq/L 01/15/2019 7:26 EDT [facility] Sodium 136 136 - 145 mEq/L 01/15/2019 7:26 EDT [facility] 01/15/2019 6:00 EDT 01/15/2019 6:43 EDT Adriana Richard DO CHEMISTRY & BLOOD G ORDERABLES [facility] * (ABNORMAL) COMPLETE BLOOD COUNT WITH DIFFERENTIAL (AUTO) (01/15/2019 6:00 EDT) ABSOLUTE NEUTROPHIL COUN - [facility] 8.7 2.2 - 8.85 10e3/uL 01/15/2019 7:05 [facility] BASO # - [facility] 0.02 0.01 - 0.11 10e/uL 01/15/2019 7:05 [facility] BASO % - [facility] 0 0 - 2 % 01/15/2019 7:05 [facility] EOS # - [facility] 0.03 0.03 - 0.61 10e3/ul 01/15/2019 7:05 [facility] EOS % - [facility] 0 0 - 5 % 01/15/2019 7:05 [facility] GRAN % - [facility] 79.7 40 - 80 % 01/15/2019 7:05 [facility] HEMATOCRIT - [facility] 36.2 34.9 - 44.4 % 01/15/2019 7:05 [facility] HEMOGLOBIN - [facility] 11.8 11.6 - 15.2 g/dl 01/15/2019 7:05 [facility] IG# - [facility] 0.04 0 - 0.7 10e3/uL 01/15/2019 7:05 [facility] IG% - [facility] 0.4 0 - 0.9 % 01/15/2019 7:05 [facility] LYMPH # - [facility] 1.3 1.09 - 3.3 10e3/ul 01/15/2019 7:05 [facility] LYMPH% - [facility] 11.9(L) 20 - 40 % 01/15/2019 7:05 [facility] MEAN CORPUSCULAR HGB - [facility] 29.2 26.7 - 33.3 pg 01/15/2019 7:05 [facility] MEAN CORPUSCULAR HGB CONC - [facility] 32.6 32.1 - 35.9 g/dL 01/15/2019 7:05 [facility] MEAN CELL VOLUME - [facility] 89.6 81 - 98 fl 01/15/2019 7:05 [facility] MONO # - [facility] 0.8 0.1 - 0.8 10e3/uL 01/15/2019 7:05 [facility] MONO% - [facility] 7.5 0 - 12 % 01/15/2019 7:05 [facility] PLATELET COUNT 254 141 - 377 10e3/ul 01/15/2019 7:05 [facility] RED BLOOD COUNT - [facility] 4.04 3.86 - 5.04 10e3/ul 01/15/2019 7:05 [facility] RED CELL DISTRI WIDTH - [facility] 13.2 <14.7 % 01/15/2019 7:05 [facility] WHITE BLOOD COUNT - [facility] 10.9 4.0 - 12.4 10e3/ul 01/15/2019 7:05 [facility] 01/15/2019 6:00 EDT 01/15/2019 6:43 EDT Adriana Richard DO HEMATOLOGY & PF4 OR DERABLES [facility] documented in this encounter Visit Diagnoses Not on filedocumented in this encounter Additional Health Concerns Infection Onset Date Last Indicated Resolved Time R/O COVID-19 08/13/2023 08/13/2023 08/13/2023 20:0 7 EDT documented as of this encounter Care Teams Sharepoint Solutions Architect Relationship Specialty Start Date End Date Otis Gee MD PCP - General 01/14/10 08/08/22 Dane Rick MD [address] [place] [address] [address] [place] [phone] PCP - General Family Medicine - Primary Care 08/09/22 Elisabet Aponte RN [address] [place] [address],[facility] [address] [place] [address] Retail Field Supervisor 06/29/21 04/09/22 Vicky Chamberlain LICSW [address] [place] [address],[facility] [address] [place], [place] [phone] Retail Field Supervisor 06/12/22 01/22/24 Leticia Lieberman [address] [place] [phone] General Surgery 04/03/23 Mendoza Guzmán MD [address] [place] [address] [address] [place] [phone] Otolaryngology 04/03/23 documented as of this encounter
--- OUTSIDE RECORDS SUMMARY | 2024-02-08 01:14 | XMS_ITS | Encounter Summary ---
Author Organization [facility] Address [address] [place] [address] Care Team Providers Care Gas Turbine Mechanic Name Role Phone Otis Gee MD Primary Care Provider Unava ilable Encounter Details Date Type Department Care Team ([facility] Contact Info) Description 12/28/2014 Historical Results Only [facility] Radiology Results [address] [place], [place] [id number] Fredy Ritchie MD Social History Tobacco Use Types Packs/Day [...] Upcoming Encounters Date Type Department Care Team ([facility] Contact Info) Description 05/19/2024 11:00 EST Office Visit [facility] Family Medicine [facility] ([facility] [address] [facility], [address] [place] [address] Dane Rick MD [address] [place] [address] [address] [place] [phone] documented as of this encounter Procedures Procedure Name Priority Date/Time Associated Diagnosis Comments XR CHEST 2 VIEWS 12/28/2014 20:1 9 EDT documented in this encounter Results * XR CHEST 2 VIEWS (12/28/2014 20:19 EDT) Anatomical Region Laterality Modality Other 12/28/2014 20:1 9 EDT Narrative 12/28/2014 20:19 EDT ? EXAM: RADIOLOGY/CHEST (PA ?? LAT) ?EX. D/ (1937) ? CLINICAL INFORMATION: ? COUGH ? EXAM: ? XR Chest, 2 Views. ? CLINICAL HISTORY: ? 74 years old, female; Pain; Chest pain; Type not specified; ? Additional info: Cough ? TECHNIQUE: ? Frontal and lateral views of the chest. ? COMPARISON: ? CR - CHEST (PA ?? LAT) 02/10/2013 2:30:07 PM ? FINDINGS: ? Lungs are free of infiltrate or effusion. ? Pulmonary vascularity is within normal limits. ? Heart is slightly enlarged. ? Mediastinum is unremarkable. ? There are degenerative spurs in the dorsal spine. ? IMPRESSION: ? Cardiomegaly is present. ? No active cardiopulmonary or parenchymal lung disease is ? identified. ? REPORT SIGNED IN OTHER VENDOR SYSTEM 12/28/2014 ?Reported By: Cesar Meza MD ? CC: ? Transcribed Date/Time: 12/28/2014 (2019) ? Schedule Maker: ? Printed Date/Time: 09/10/2018 (1610) ? PAGE 1 ? Signed Report ? Procedure Note Cesar Meza MD - 02/04/2019 EXAM: RADIOLOGY/CHEST (PA LAT) EX. D/ (1937) CLINICAL INFORMATION: COUGH EXAM: XR Chest, 2 Views. CLINICAL HISTORY: 74 years old, female; Pain; Chest pain; Type not specified; Additional info: Cough TECHNIQUE: Frontal and lateral views of the chest. COMPARISON: CR - CHEST (PA LAT) 02/10/2013 2:30:07 PM FINDINGS: Lungs are free of infiltrate or effusion. Pulmonary vascularity is within normal limits. Heart is slightly enlarged. Mediastinum is unremarkable. There are degenerative spurs in the dorsal spine. IMPRESSION: Cardiomegaly is present. No active cardiopulmonary or parenchymal lung disease is identified. REPORT SIGNED IN OTHER VENDOR SYSTEM 12/28/2014 Reported By: Cesar Meza MD CC: Transcribed Date/Time: 12/28/2014 (2018) Schedule Maker: Printed Date/Time: 09/10/2018 (8678) PAGE 1 Signed Report Fredy Ritchie MD IMG DIAGNOSTIC IMAGI NG ORDERABLES documented in this encounter Visit Diagnoses Not on filedocumented in this encounter Care Teams Gas Turbine Mechanic Relationship Specialty Start Date End Date Otis Gee MD PCP - General 01/14/10 08/08/22 documented as of this encounter
--- OUTSIDE RECORDS SUMMARY | 2024-02-08 01:14 | XMS_ITS | Encounter Summary ---
Author Organization [facility] Address [address] [place] [address] Care Team Providers Care Learning And Development Administrator Name Role Phone Unavailable Primary Care Provider Unavailabl e Encounter Details Date Type Department Care Team ([facility] st Contact Info) Description 01/15/2008 8:05 EDT Hospital Encounter [facility] [address] [place] [address] Yared Romero MD [address] [phone] Social History Tobacco Use Types Packs/Day Years [...] in a group home (including now)? No 03/15/2023 Interpersonal Safety [...] Info) Description 05/19/2024 11:00 EST Office Visit [address], [facility] [address] [place] [address] Dane Rick MD [address] [place] [address] [address] [place] [address] documented as of this encounter Visit Diagnoses Not on filedocumented in this encounter Additional Health Concerns Infection Onset Date Last Indicated Resolved Time R/O COVID-19 08/13/2023 08/13/2023 08/13/2023 20:0 7 EDT documented as of this encounter
--- OUTSIDE RECORDS SUMMARY | 2024-02-08 01:14 | XMS_ITS | Encounter Summary ---
Author Organization [facility] Address [address] [place] [address] Care Team Providers Care Blue Prints Trimmer Name Role Phone Unavailable Primary Care Provider Unavailabl e Encounter Details Date Type Department Care Team (Latest Contact Info) Description 01/30/2008 9:39 EDT - 01/30/2008 11:59 EDT Hospital Encounter [facility] Perioperative Services- [facility] [address] [place] [address] Yared Romero MD [address] [phone] Discharge Disposition: Home or Self Care Social History Tobacco Use Types Packs/Day Years Used Date Smoking Tobacco: Never Assessed Sex and Gender Information Value Date Recorded Sex Assigned at Not on file Gender Identity Female 02/28/2019 7:38 EST Sexual Orientation Not on file documented as of this encounter Discharge Disposition Disposition Code Departure Means Destination Home or Self Care documented in this encounter OR Notes * OR Surgeon - Yared Romero MD - 01/30/2008 0000 EDT PROCEDURE REPORT PT TYPE: OPPROC SERVICE DATE: 01/30/2008 SURGEON: Yared Romero MD CAFETERIA AIDE: Julia Valentino MD; He Amin PREOPERATIVE DIAGNOSIS 1. Bilateral upper lid dermatochalasis. 2. Bilateral brow ptosis. 3. Visual field defect. POSTOPERATIVE DIAGNOSIS 1. Bilateral upper lid dermatochalasis. 2. Bilateral brow ptosis. 3. Visual field defect. PROCEDURE 1. Bilateral upper lid blepharoplasty (CPT 28315-41). 2. Bilateral endoscopic brow lift with Ultratine implants (CPT 09622-15). ANESTHESIA General. INDICATIONS This is a 67-year-old woman with a history of visually significant bilateral upper lid dermatochalasis and brow ptosis causing symptomatic visual field obstruction. NARRATIVE After informed consent was obtained, including: scar, pain, bleeding, infection, loss of vision, need for additional surgery, undercorrection, overcorrection, dry eye syndrome, hair loss and sensory or motor nerve damage, the patient was brought to the operating room in stable condition and placed in the supine position. The pretrichial incision sites behind the hairline were marked in thepreop area with a surgical marking pen. A midline vertical incision site approximately 1.5 cm in length wasmarked approximately 1 cm behind the central hairline. Two paracentral 1.5 cm incision sites were marked approximately 4 cm medial and lateral tothis marking. Additional 2.5 cm incision sites were marked approximately 2.5 cm posterior to the temporal hair tuft bilaterally. The upper lid creases were also marked with a surgical marking pen. General anesthesia was administered without complicationsand the hair around the incision sites was tied and braided. A 1:1 mixture of 2% Xylocaine with epinephrine mixed with 0.75% Marcaine was injected at the incision sites and superior orbital rims. A 1:1 mixture of 1% Xylocaine with epinephrine mixed with 0.75% Marcaine was injected into the forehead. The patient was prepped and draped in the standard surgical fashion. A #15 blade was used to create incisions at the midline and paracentral markings as previously described. The incisions were carried down to the periosteum, which was incised with a #15 blade. Hemostasis was obtained with gentle bipolar cautery as needed. A periosteal elevator was then used to elevate the periosteum off the underlying bone posterior to the incision sites as well as in the forehead region, taking care not to dissect within 2 cm of the superior orbital rim. Incision sites were created behind the temporal hair kristian along the markings previously described. The incision was carried down to the deep temporal fascia on both sides. Anendoscope was then placed through these incisions in the loose areolar layer above the deep temporal fascia. Dissection was carried to the temporalarcuate ligament, which was disinserted from the frontal bone, beginning superiorly and then progressing inferiorly toward the junction between the superior and lateral orbital rim. The endoscope wasthen placed through the superior incision sites and the arcus marginalis was dissected off the superior orbital rim, beginning laterally and progressing medially.A nerve dissector was used to carefully dissect the arcus marginalis from around the supraorbital and supratrochlear nerves. A periostealelevator was then used to elevate the periosteum in the glabellar region. No electrocautery was used. The Endotine hand drill was then used to create drill holes at the paracentral incision sites at the anterior aspects of the incisions. Two Ultratine 3.5 mm implants were then secured within these drill holes and the scalp flap was elevated until adequate brow height wasachieved and then secured to the Ultratines with gentle pressure on the skin. The brows were judged to be of aesthetically acceptable height and symmetry. A small ellipse of skin from the temporal incision sites was then excised using a 15 blade. Hemostasis was obtained with gentle bipolar cautery as needed. The superficial temporal fascia was then advanced in a superolateral vector and anchored to the deep temporal fasciausing two 4-0 Prolene sutures on both sides. The skin was closed in layers with buried 4-0 Monocrylsutures and ramírez. The superior incision sites were then closed with ramírez. Attention was turned to the upper eyelids where the pinch technique was used to estimate anelliptical area of skin to be excised on both sides. Local anesthetic was then infiltrated. Attention was turned to the right side where an elliptical incision was made along the previously outlined markings.The skin and underlying orbicularis tissue were excised using monopolar cautery. Hemostasis was obtained with electrocautery as needed. Dissection was then carried down through the orbital septum to the medial and central preaponeurotic fat pads. Excess orbital fat was clamped, cut, and cauterized.The identical procedure was performed on the left side. The skin was then closed using multiple interrupted 6-0 fast- absorbing gut sutures. Erythromycin ointment was placed over the eyelud incision sites and bacitracin ointment, Telfa pads, and a wraparound head dressing was placed over the forehead. The patient was extubated and left the operating room in stable condition. ESTIMATED BLOOD LOSS Less than 3 mL. SPECIMENS None sent. COMPLICATIONS None. Signed by Yared Romero MD 03/06/2008 11:48 Yared Romero MD - Yared Romero MD A - GR Job ID: [id number] Document ID: [id number] cc: MD Yared Vieyra MD documented in this encounter Plan of Treatment Upcoming Encounters Date Type Department Care Team (Late st Contact Info) Description 05/19/2024 11:00 EST Office Visit [facility] Family Medicine [address], [address] [address] Dane Rick MD [address] [place] [phone] documented as of this encounter Visit Diagnoses Not on filedocumented in this encounter
--- OUTSIDE RECORDS SUMMARY | 2024-02-08 01:14 | XMS_ITS | Encounter Summary ---
Author Organization Health system Address [address] [place] [address] Care Team Providers Care Dumper Operator Name Role Phone Otis Gee MD Primary Care Provider Joseph easley Encounter Details Date Type Department Care Team (Latest Contact Info) Description 07/18/2018 17:08 EDT - 07/18/2018 23:59 EDT Hospital Encounter [facility] [address] [place] [address] Unknown, Provider, Discharge Disposition: Auto Discharge Social [...] Disposition Code Departure Means Destination Auto Discharge Home documented in this encounter Plan of Treatment Upcoming Encounters Date Type Department Care Team (Late st Contact Info) Description 05/19/2024 11:00 EST Office Visit [facility] Family Medicine [address], [address] [place], [place] [address] Dane Rick MD [address] [place] [address] [place] [phone] documented as of this encounter Visit Diagnoses Not on filedocumented in this encounter Care Teams Dumper Operator Relationship Specialty Start Date End Date Otis Gee MD PCP - General 01/14/10 08/08/22 documented as of this encounter
--- OUTSIDE RECORDS SUMMARY | 2024-02-08 01:14 | XMS_ITS | Encounter Summary ---
Author Organization [facility] Address [address] [place] [address] Care Team Providers Care State Trooper Name Role Phone Otis Gee MD Primary Care Provider Unava ilable Encounter Details Date Type Department Care Team (Late Contact Info) Description 12/19/2018 Results Only [facility] - [facility] [place] [address] [place] [address] Otis Gee MD Social History [...] Upcoming Encounters Date Type Department Care Team ([facility] Contact Info) Description 05/19/2024 11:00 EST Office Visit [facility] Family Medicine [address], [facility] [address] [place], [place] [phone] Dane Rick MD [address] [place] [address] [address] [place] [phone] Pending Results Name Type Priority Associated Diagnoses Date /Time UA, CHEMICAL AND SEDIMENT ANALYSIS (DIPSTICK AND MICROSCOPIC) Lab Routine 12/19/2018 15:38 EDT documented as of this encounter Procedures Procedure Name Priority Date/Time Associated Diagnosis Comments INR Routine 12/19/2018 15:38 EDT URINALYSIS/COMPLETE - [facility] Routine 12/19/2018 15:38 EDT COMPLETE BLOOD COUNT WITH DIFFERENTIAL (AUTO) Routine 12/19/2018 15:38 EDT URINE CHEMICAL (DIP) & SEDIMENT (MICRO) WITHOUT REFLEX TO CULTURE Routine 12/19/2018 15:38 EDT PROTIME Routine 12/19/2018 15:38 EDT PROTIME Routine 12/19/2018 15:38 EDT PROTIME Routine 12/19/2018 15:38 EDT BASIC METABOLIC PANEL (BMP) Routine 12/19/2018 15:38 EDT documented in this encounter Results * (ABNORMAL) PROTIME (12/19/2018 15:38 EDT) PROTHROMBIN TIME - [facility] 9.3(L) 10.3 - 13.4 SECONDS 12/20/2018 13:44 EDT [facility] 12/19/2018 15:3 8 EDT 12/20/2018 11:49 EDT Otis Gee MD HEMATOLOGY & PF4 ORD ERABLES Performing Organization Address [facility]/ZIP Co de Phone Number [facility] * (ABNORMAL) INR - [facility] (12/19/2018 15:38 EDT) Pathologist [facility] INR - [facility] 0.8(L) 0.9 - 1.1 12/20/2018 13:43 EDT [facility] Comment: Moderate Intensity Coumadin INR = 2.0-3.0 Adjustments in anticoagulant therapy dose should be based upon the INR and NOT the Protime. 12/19/2018 15:3 8 EDT 12/20/2018 11:49 EDT Otis Gee MD HEMATOLOGY & PF4 ORD ERABLES [facility] * (ABNORMAL) COMPLETE BLOOD COUNT WITH DIFFERENTIAL (AUTO) (12/19/2018 15:38 EDT) ABSOLUTE NEUTROPHIL COUN - [facility] 5.3 2.2 - 8.85 10e3/uL 12/20/2018 13:57 [facility] BASO # - [facility] 0.11 0.01 - 0.11 10e/uL 12/20/2018 13:57 [facility] BASO % - [facility] 1 0 - 2 % 12/20/2018 13:57 [facility] EOS # - [facility] 0.61 0.03 - 0.61 10e3/ul 12/20/2018 13:57 [facility] EOS % - [facility] 7(H) 0 - 5 % 12/20/2018 13:57 [facility] GRAN % - [facility] 57.4 40 - 80 % 12/20/2018 13:57 [facility] HEMATOCRIT - [facility] 41.9 34.9 - 44.4 % 12/20/2018 13:57 [facility] HEMOGLOBIN - [facility] 13.6 11.6 - 15.2 g/dl 12/20/2018 13:57 [facility] IG# - [facility] 0.04 0 - 0.7 10e3/uL 12/20/2018 13:57 [facility] IG% - [facility] 0.4 0 - 0.9 % 12/20/2018 13:57 [facility] LYMPH # - [facility] 2.3 1.09 - 3.3 10e3/ul 12/20/2018 13:57 [facility] LYMPH% - [facility] 25.2 20 - 40 % 12/20/2018 13:57 [facility] MEAN CORPUSCULAR HGB - [facility] 29.3 26.7 - 33.3 pg 12/20/2018 13:57 [facility] MEAN CORPUSCULAR HGB CONC - [facility] 32.5 32.1 - 35.9 g/dL 12/20/2018 13:57 [facility] MEAN CELL VOLUME - CV 90.3 81 - 98 fl 12/20/2018 13:57 EDT [facility] MONO # - [facility] 0.8 0.1 - 0.8 10e3/uL 12/20/2018 13:57 EDT [facility] MONO% - [facility] 9.1 0 - 12 % 12/20/2018 13:57 [facility] PLATELET COUNT TNP 141 - 377 10e3/ul 12/20/2018 14:48 T [facility] Comment: Platelet clumps present, automated platelet count not done. Platelet estimate appears:ADEQUATE ?? RED BLOOD COUNT - [facility] 4.64 3.86 - 5.04 10e3/ul 12/20/2018 13:57 [facility] RED CELL DISTRI WIDTH - [facility] 13.1 <14.7 % 12/20/2018 13:57 [facility] WHITE BLOOD COUNT - [facility] 9.2 4.0 - 12.4 10e3/ul 12/20/2018 13:57 EDT [facility] 12/19/2018 15:3 8 EDT 12/20/2018 11:49 EDT Otis Gee MD HEMATOLOGY & PF4 ORD ERABLES [facility] * (ABNORMAL) PROTIME (12/19/2018 15:38 EDT) PROTHROMBIN TIME - [facility] 9.3(L) 10.3 - 13.4 SECONDS 12/20/2018 13:44 EDT [facility] 12/19/2018 15:3 8 EDT 12/20/2018 11:49 EDT Otis Gee MD HEMATOLOGY & PF4 ORD ERABLES [facility] * (ABNORMAL) PROTIME (12/19/2018 15:38 EDT) INR - [facility] 0.8(L) 0.9 - 1.1 12/20/2018 13:43 EDT [facility] Comment: Moderate Intensity Coumadin INR = 2.0-3.0 Adjustments in anticoagulant therapy dose should be based upon the INR and NOT the Protime. 12/19/2018 15:3 8 EDT 12/20/2018 11:49 EDT Otis Gee MD HEMATOLOGY & PF4 ORD ERABLES [facility] * URINALYSIS/COMPLETE - [facility] (12/19/2018 15:38 EDT) URINE APPEARANCE - [facility] Sl Cloudy CLEAR 12/20/2018 13:05 [facility] URINE BACTERIA - [facility] MANY 12/20/2018 13:52 [facility] URINE BILIRUBIN - DIPSTICK - [facility] 1+ NEGATIVE 12/20/2018 13:05 [facility] Comment: Unable to confirm positive urine bilirubin. If clinical correlation is inconsistent, consider serum bilirubin. URINE BLOOD - [facility] Negative NEG 12/20/2018 13:05 [facility] URINE CALCIUM OXALATE CRYSTALS - [facility] FEW #/hpf 12/20/2018 13:52 [facility] URINE COLOR - [facility] Yellow YELLOW 12/20/2018 13:05 [facility] URINE GLUCOSE - [facility] - [facility] Negative NEGATIVE 12/20/2018 13:05 [facility] URINE HYALINE CAST - [facility] RARE #/hpf 12/20/2018 13:52 [facility] URINE KETONE - [facility] Negative NEGATIVE 12/20/2018 13:05 [facility] URINE LEUK ESTERASE - [facility] Trace NEG 12/20/2018 13:05 [facility] URINE NITRITE - [facility] - [facility] Negative NEG 12/20/2018 13:05 [facility] URINE PH - [facility] 5.5 4.0 - 8.0 9 13:05 [facility] URINE PROTEIN - [facility] - [facility] Negative NEG 12/20/2018 13:05 [facility] URINE RBC - [facility] 1-3 rbc/hpf 12/21/19 13:52 [facility] URINE SPECIFIC GRAVITY - [facility] 1.020 1.001 - 1.035 12/20/2018 13:05 [facility] URINE SQUAMOUS CELLS - [facility] MOD NEG #/hpf 12/20/2018 13:52 [facility] URINE UROBILINOGEN - [facility] - [facility] 0.2 0.2 - 1.0 12/20/2018 13:05 [facility] URINE WBC - [facility] 5-10 NEG wbc/hpf 019 13:52 [facility] 12/19/2018 15:3 8 EDT 12/20/2018 11:49 EDT Otis Gee MD CHEMISTRY & BLOOD GA S ORDERABLES [facility] * (ABNORMAL) BASIC METABOLIC PANEL (BMP) (12/19/2018 15:38 EDT) BUN - [facility] 17 10 - 26 mg/dL 12/20/2018 12:50 [facility] CALCIUM - [facility] 10.8(H) 8.5 - 10.5 mg/dL 12/20/2018 12:50 [facility] Chloride 100 96 - 110 mmol/L 12/20/2018 12:50 [facility] CO2 Total 29 22 - 32 mEq/L 12/20/2018 12:50 [facility] CREATININE 0.97 0.52 - 1.04 mg/dL 12/20/2018 12:50 [facility] eGFR 56 12/20/2018 12:50 [facility] Comment: Stage 3: Moderate renal impairment is defined as GFR 30-59 Multiply result by 1.210 for patients. eGFR calculated using the IDMS-traceable MDRD Study Equation. ??(effective 02/02/2014) Anion Gap 10 0 - 18 12/20/2018 12:50 [facility] GLUCOSE - [facility] 86 70 - 100 mg/dL 12/20/2018 12:50 EDT [facility] Potassium 4.2 3.5 - 5.0 mEq/L 12/20/2018 12:50 EDT [facility] Sodium 139 136 - 145 mEq/L 12/20/2018 12:50 EDT [facility] 12/19/2018 15:3 8 EDT 12/20/2018 11:49 EDT Otis Gee MD CHEMISTRY & BLOOD GA S ORDERABLES [facility] documented in this encounter Visit Diagnoses Not on filedocumented in this encounter Care Teams State Trooper Relationship Specialty Start Date End Date Otis Gee MD PCP - General 01/14/10 08/08/22 documented as of this encounter
--- OUTSIDE RECORDS SUMMARY | 2024-02-08 01:14 | XMS_ITS | Encounter Summary ---
Author Organization [facility] Address [address] [place] [address] Care Team Providers Care Machine Builder Name Role Phone Otis Gee MD Primary Care Provider Unava ilable Encounter Details Date Type Department Care Team (Late Contact Info) Description 12/31/2012 Results Only Imaging [facility] [phone] Dylon Headley MD [address] [place] [address],[facility] [address] [address] Social History Tobacco Use Types Packs/Day Years Used Date Smoking Tobacco: Never Assessed Sex and Gender Information Value Date Recorded Sex Assigned at Not on file Gender Identity Female 02/28/2019 7:38 EST Sexual Orientation Not on file documented as of this encounter Plan of Treatment Upcoming Encounters Date Type Department Care Team ([facility] Contact Info) Description 05/19/2024 11:00 EST Office Visit [facility] Family Medicine [address], [address] [address] Dane Rick MD [address] [place] [phone] documented as of this encounter Procedures Procedure Name Priority Date/Time Associated Diagnosis Comments LEFT HEART CATH 01/03/2013 10:47 EDT documented in this encounter Results * LEFT HEART CATH (01/03/2013 10:47 EDT) Anatomical Region Laterality Modality Other 01/03/2013 10:4 7 EDT Narrative 01/03/2013 17:35 EDT Cardiology [address] [place] [address] Catheterization Laboratory Study Patient: Kenyatta Vizcaino ? Study Date: ?01/03/2013 ?Accession #: ? [id number] : ? 1940 Referring Physician: Otis Gee Diagnostic Attending: ??Palmer Sheets Interventional Attending: ?? Palmer Sheets Diagnostic Fellow: Mike Peraza Interventional Fellow: Ankit Ha ATTESTATION: Dr. Palmer Sheets was present and supervising for the entire procedure, I, Dr. Palmer Sheets have reviewed and agree with the findings of this report. PROCEDURE PLAN: Based on the diagnostic study percutaneous coronary intervention is indicated. IMPRESSIONS: Severe single vessel coronary artery disease. SUMMARY: 1. HPI and indications: Exertional dyspnea. Stable angina. 2. LAD: Mid-vessel lesion: There is a discrete, 75%stenosis. This lesion is a ?? bifurcation lesion. There is GUSTABO grade 3 flow (brisk flow) across the ?? lesion. The lesion is significant by visual estimate. The distal vessel ?? supplies a moderate-sized vascular territory. The lesion is a likely culprit ?? for the patient's abnormal stress test and anginal symptoms and an ACC/AHA ?? type B1 moderate risk lesion for intervention, with 1 adverse ?? characteristic. The lesion was stented using a zotarolimus-eluting stent (see ?? 1st lesion intervention). Following intervention, there is a residual ?? stenosis with an excellent angiographic appearance and GUSTABO grade 3 flow ?? (brisk flow). RECOMMENDATIONS: 1. Patient management should include risk factor modification, a cardiac ?? rehabilitation program, and low calorie diet. The patient was counseled ?? regarding the importance of adherence to the prescribed antiplatelet therapy ?? and a low fat diet. 2. Continue aspirin, at 81mgPOdaily, indefinitely. 3. Add clopidogrel (Plavix), 75mgPOdaily, for 12mon. HISTORY: Exertional dyspnea. ??Stable angina. ??Functional status: ??LVEF 55%; CCS class III (marked limitation of ordinary activity). ??Risk factors: ??Hypertension. Dyslipidemia. ??Medications: ??Diuretics. Beta blockers. Anti-anginal therapy. Aspirin. ??Statins. ??Allergies: ?? Penicillin. LABS, PRIOR TESTS, PROCEDURES AND SURGERY: Serum creatinine (current admission) of 0.6 mg/dl. ??Prothrombin time (PT) of 9.9 sec. ??Hematocrit of 13.3 %. ??Platelet count of 267 th/ul. ??Serum sodium (Na) of 140 mEq/l. ??Serum potassium (K) of 4.9 mEq/l. ??Blood urea nitrogen of 17 mg/dl. Hemoglobin (pre-procedure) of 41.1 g/dl. ??International normalized ratio (INR) of 0.9. ??Stress myocardial perfusion imaging. ? Abnormal. STUDY DATA: Study status: ??Cardiac cath: elective. Percutaneous coronary intervention: elective. ??Location: ??Catheterization laboratory. Sex: female. Patient is 72yr old. Height: 152cm. Weight: 93.4kg. BSA: 2.04m^2. Procedures performed: ?Right radial artery access. ?Right coronary angiography. ?Left coronary angiography. ?Lesion intervention: Percutaneous intervention on the 75% stenosis in the mid LAD. ?Stent placement. PROCEDURE: 1. Initial setup. The patient was brought to the laboratory in the fasting ?? state. A baseline ECG was recorded. Surface ECG leads, automatic cuff blood ?? pressure measurements, and pulse oximetric signals were monitored. 2. Skin preparation. The planned puncture sites were prepped with chlorhexidine ?? and draped in the usual sterile manner. 3. Right radial artery access. A 6 FR/10 SeventymmumAsuragen Sheath [place] SS .021 sheath was ?? advanced into the vessel. 4. Selective right coronary angiography. A 5 FR Kenneth catheter was advanced into ?? the right coronary vessel ostium under fluoroscopic guidance. Contrast was ?? injected by hand. Images were obtained in multiple projections. 5. Selective left coronary angiography. A 6F FL3.5 catheter was advanced into ?? the left coronary vessel ostium under fluoroscopic guidance. Contrast was ?? injected by hand. Images were obtained in multiple projections. 6. Right radial artery hemostasis. Mechanical compression was applied. 1st lesion intervention: Percutaneous intervention on the 75% stenosis in the mid LAD. 1. Vessel setup was performed. A 6F XB3 guiding catheter was advanced into the ?? vessel. 2. Stent placement. A 2.75mm (D) x 18mm (L), Resolute stent was advanced across ?? the lesion and deployed with a single inflation and a maximum pressure of ?? 15atm. STUDY COMPLETION: The estimated blood loss was 10ml. All catheters inserted during the procedure were removed. The patient tolerated the procedure well and was discharged from the lab. There were no complications. ??Administered medications: ?? Bivalirudin BOLUS, 0.75mg/kg. ??Bivalirudin DRIP, infusion rate of 1.75mg/kg/hr. ??Fentanyl, for a total dose of 100mcg. ??Midazolam, for a total dose of 4mg. ??Contrast: Isovue 370 110ml (total dose). ??Fluoroscopy time: ??15.3min. ??Fluoroscopy dose: 150.7cGy. CORONARY ARTERIES: The coronary circulation is right dominant. Left main: ??Normal. LAD: ??Mid-vessel lesion: There is a discrete, 75%stenosis. This lesion is a bifurcation lesion. There is GUSTABO grade 3 flow (brisk flow) across the lesion. The lesion is significant by visual estimate. The distal vessel supplies a moderate-sized vascular territory. The lesion is a likely culprit for the patient's abnormal stress test and anginal symptoms and an ACC/AHA type B1 moderate risk lesion for intervention, with 1 adverse characteristic. The lesion was stented using a zotarolimus-eluting stent (see 1st lesion intervention). Following intervention, there is a residual stenosis with an excellent angiographic appearance and GUSTABO grade 3 flow (brisk flow). There were no site complications. Left circumflex: ??Normal. Right coronary: ??Minor luminal irregularities. HEMODYNAMICS: + + + !Stage description ?!Condition1:Condition 1 -! + + + !Arterial pressure s/d (m)!128/69 (94) ? ! + + + Electronically signed by Palmer Sheets Jr., MD 2013-01-03 17:35 Procedure Note 01/03/[address] [place] [id number] Catheterization Laboratory Study Patient: Kenyatta Vizcaino Study Date:01/03/2013 : 1940 Referring Physician: Otis Gee Diagnostic Attending: Palmer Sheets Interventional Attending: Palmer Sheets Diagnostic Fellow: Mike Peraza Interventional Fellow: Ankit Ha ATTESTATION: Dr. Palmer Sheets was present and supervising for the entire procedure, I,Dr. Palmer Sheets have reviewed and agree with the findings of this report. PROCEDURE PLAN: Based on the diagnostic study percutaneous coronary intervention isindicated. IMPRESSIONS: Severe single vessel coronary artery disease. SUMMARY: 1. HPI and indications: Exertional dyspnea. Stable angina. 2. LAD: Mid-vessel lesion: There is a discrete, 75%stenosis. This lesionis a bifurcation lesion. There is GUSTABO grade 3 flow (brisk flow) across the lesion. The lesion is significant by visual estimate. The distal vessel supplies a moderate-sized vascular territory. The lesion is a likelyculprit for the patient's abnormal stress test and anginal symptoms and anACC/AHA type B1 moderate risk lesion for intervention, with 1 adverse characteristic. The lesion was stented using a zotarolimus-elutingstent (see 1st lesion intervention). Following intervention, there is a residual stenosis with an excellent angiographic appearance and GUSTABO grade 3flow (brisk flow). RECOMMENDATIONS: 1. Patient management should include risk factor modification, a cardiac rehabilitation program, and low calorie diet. The patient was counseled regarding the importance of adherence to the prescribed antiplatelettherapy and a low fat diet. 2. Continue aspirin, at 81mgPOdaily, indefinitely. 3. Add clopidogrel (Plavix), 75mgPOdaily, for 12mon. HISTORY: Exertional dyspnea. Stable angina. Functional status: LVEF 55%; CCSclass III (marked limitation of ordinary activity). Risk factors: Hypertension. Dyslipidemia. Medications: Diuretics. Beta blockers. Anti-anginaltherapy. Aspirin. Statins. Allergies: Penicillin. LABS, PRIOR TESTS, PROCEDURES AND SURGERY: Serum creatinine (current admission) of 0.6 mg/dl. Prothrombin time (PT)of 9.9 sec. Hematocrit of 13.3 %. Platelet count of 267 th/ul. Serum sodium(Na) of 140 mEq/l. Serum potassium (K) of 4.9 mEq/l. Blood urea nitrogen of 17mg/dl. Hemoglobin (pre-procedure) of 41.1 g/dl. International normalized ratio(INR) of 0.9. Stress myocardial perfusion imaging. Abnormal. STUDY DATA: Study status: Cardiac cath: elective. Percutaneous coronary intervention: elective. Location: Catheterization laboratory. Sex: female. Patient is72yr old. Height: 152cm. Weight: 93.4kg. BSA: 2.04m^2. Procedures performed: Right radial artery access. Right coronary angiography. Left coronary angiography. Lesion intervention: Percutaneous intervention on the 75% stenosis in the mid LAD. Stent placement. PROCEDURE: 1. Initial setup. The patient was brought to the laboratory in the fasting state. A baseline ECG was recorded. Surface ECG leads, automatic cuffblood pressure measurements, and pulse oximetric signals were monitored. 2. Skin preparation. The planned puncture sites were prepped withchlorhexidine and draped in the usual sterile manner. 3. Right radial artery access. A 6 FR/10 Terumo Sheath [place] SS .021sheath was advanced into the vessel. 4. Selective right coronary angiography. A 5 FR Kenneth catheter wasadvanced into the right coronary vessel ostium under fluoroscopic guidance. Contrastwas injected by hand. Images were obtained in multiple projections. 5. Selective left coronary angiography. A 6F FL3.5 catheter was advancedinto the left coronary vessel ostium under fluoroscopic guidance. Contrastwas injected by hand. Images were obtained in multiple projections. 6. Right radial artery hemostasis. Mechanical compression was applied. 1st lesion intervention: Percutaneous intervention on the 75% stenosis in the mid LAD. 1. Vessel setup was performed. A 6F XB3 guiding catheter was advanced intothe vessel. 2. Stent placement. A 2.75mm (D) x 18mm (L), Resolute stent was advancedacross the lesion and deployed with a single inflation and a maximum pressureof 15atm. STUDY COMPLETION: The estimated blood loss was 10ml. All catheters inserted during theprocedure were removed. The patient tolerated the procedure well and was dischargedfrom the lab. There were no complications. Administered medications:Bivalirudin BOLUS, 0.75mg/kg. Bivalirudin DRIP, infusion rate of 1.75mg/kg/hr.Fentanyl, for a total dose of 100mcg. Midazolam, for a total dose of 4mg.Contrast: Isovue 370 110ml (total dose). Fluoroscopy time: 15.3min. Fluoroscopydose: 150.7cGy. CORONARY ARTERIES: The coronary circulation is right dominant. Left main: Normal. LAD: Mid-vessel lesion: There is a discrete, 75%stenosis. This lesion hamlet bifurcation lesion. There is GUSTABO grade 3 flow (brisk flow) across thelesion. The lesion is significant by visual estimate. The distal vessel supplies a moderate-sized vascular territory. The lesion is a likely culprit for the patient's abnormal stress test and anginal symptoms and an ACC/AHA type B1 moderate risk lesion for intervention, with 1 adverse characteristic.The lesion was stented using a zotarolimus-eluting stent (see 1st lesion intervention). Following intervention, there is a residual stenosis withan excellent angiographic appearance and GUSTABO grade 3 flow (brisk flow).There were no site complications. Left circumflex: Normal. Right coronary: Minor luminal irregularities. HEMODYNAMICS: + + + !Stage description !Condition1:Condition 1 -! + + + !Arterial pressure s/d (m)!128/69 (94) ! + + + Electronically signed by Palmer Sheets Jr., MD 2013-01-03 17:35 Dylon Headley MD CARDIAC CATH ORDERAB LES documented in this encounter Visit Diagnoses Not on filedocumented in this encounter Care Teams Machine Builder Relationship Specialty Start Date End Date Otis Gee MD PCP - General 01/14/10 08/08/22 documented as of this encounter
--- OUTSIDE RECORDS SUMMARY | 2024-02-08 01:14 | XMS_ITS | Encounter Summary ---
Author Organization [facility] Address [address] [place] [address] Care Team Providers Care Material Planner Name Role Phone Otis Gee MD Primary Care Provider Joseph easley Encounter Details Date Type Department Care Team (Latest Contact Info) Description 12/06/2016 11:10 EDT - 12/06/2016 23:59 EDT Hospital Encounter [facility] [address] [place] [address] Unknown, Provider, Discharge Disposition: Home or Self [...] Code Departure Means Destination Home or Self Custodial documented in this encounter Plan of Treatment Upcoming Encounters Date Type Department Care Team (Late st Contact Info) Description 05/19/2024 11:00 EST Office Visit [facility] Medicine [address], [address] [place], [place] [address] Dane Rick MD [address] [place] [address] [place] [phone] documented as of this encounter Visit Diagnoses Not on filedocumented in this encounter Care Teams Material Planner Relationship Specialty Start Date End Date Otis Gee MD PCP - General 01/14/10 08/08/22 documented as of this encounter
--- OUTSIDE RECORDS SUMMARY | 2024-02-08 01:14 | XMS_ITS | Encounter Summary ---
Author Organization [facility] Address [address] [place] [address] Care Team Providers Care Dry Box Tender Name Role Phone Unavailable Primary Care Provider Unavailravinder e Encounter Details Date Type Department Care Team ([facility] st Contact Info) Description 02/06/2008 12:17 [facility] Hospital Encounter [facility] [address] [place] [address] Yared Romero MD [address] [phone] Social History Tobacco Use Types Packs/Day Years [...] Info) Description 05/19/2024 11:00 EST Office Visit [address], [address] [place] [address] Dane Rick MD [address] [place] [address] [address] [place] [phone] documented as of this encounter Visit Diagnoses Not on filedocumented in this encounter Additional Health Concerns Infection Onset Date Last Indicated Resolved Time R/O COVID-19 08/13/2023 08/13/2023 08/13/2023 20:0 7 EDT documented as of this encounter
--- OUTSIDE RECORDS SUMMARY | 2024-02-08 01:14 | XMS_ITS | Encounter Summary ---
Author Organization [facility] Address [address] [place] [address] Care Team Providers Care Taxi Driver Name Role Phone Otis Gee MD Primary Care Provider Unava ilable Reason for Visit * Reason Onset Date Comments Medications Refill 04/15/2019 Encounter Details Date Type Department Care Team (Late Contact Info) Description 04/15/2019 Refill [facility] [address] , [facility] [address] [place] [address] Otis Gee MD Medications Refill [...] 05/19/2024 11:00 EST Office Visit [facility] [address], [address] [place], [place] [id number] Dane Rick MD [address] [phone] documented as of this encounter Visit Diagnoses Not on filedocumented in this encounter Care Teams Taxi Driver Relationship Specialty Start Date End Date Otis Gee MD PCP - General 01/14/10 08/08/22 documented as of this encounter
--- OUTSIDE RECORDS SUMMARY | 2024-02-08 01:14 | XMS_ITS | Encounter Summary ---
Author Organization [facility] Address [address] [place] [address] Care Team Providers Care Personal Service Workers Name Role Phone Otis Gee MD Primary Care Provider Unava ilable Encounter Details Date Type Department Care Team (Late Contact Info) Description 11/23/2016 Historical Results Only [facility] [place] [address] [place] [address] Otis Gee MD Social History [...] Team ([facility] Contact Info) Description 05/19/2024 11:00 EST Office Visit [facility] Family Medicine [address], [facility] [address] [place] [address] Dane Rick MD [address] [place] [phone] documented as of this encounter Procedures Procedure Name Priority Date/Time Associated Diagnosis Comments COMPLETE BLOOD COUNT WITH DIFFERENTIAL (AUTO) Routine 11/23/2016 8:49 EDT NT PRO BNP Routine 11/23/2016 8:49 EDT BASIC METABOLIC PANEL (BMP) Routine 11/23/2016 8:49 EDT documented in this encounter Results * NT PRO BNP (11/23/2016 8:49 EDT) [facility] NATRIURETIC PEPTIDE (BNP) - [facility] 98 0 - 100 pg/ml 11/23/2016 12:15 EDT [facility] 11/23/2016 8:49 EDT 11/23/2016 11:09 EDT Otis Gee MD CHEMISTRY & BLOOD GA S ORDERABLES [facility] * (ABNORMAL) BASIC METABOLIC PANEL (BMP) (11/23/2016 8:49 EDT) [facility] BUN - [facility] 11 7 - 18 mg/dL 11/23/2016 12:00 EDT [facility] CALCIUM - [facility] 10.4(H) 8.5 - 10.1 mg/dL 11/23/2016 12:00 [facility] Chloride 102 98 - 107 mEq/L 11/23/2016 12:00 [facility] CO2 Total 31 21 - 32 mEq/L 11/23/2016 12:00 [facility] CREATININE 0.91 0.5 - 1.3 mg/dL 11/23/2016 12:00 [facility] eGFR >60 11/23/2016 12:00 [facility] Comment: Chronic renal impairment is defined as GFR <60 Multiply result by 1.210 for patients. eGFR calculated using the IDMS-traceable MDRD Study Equation. ??(effective 02/02/2014) Anion Gap 8 5 - 15 11/23/2016 12:00 [facility] GLUCOSE - [facility] 95 70 - 100 mg/dL 11/23/2016 12:00 [facility] Potassium 4.2 3.5 - 5.0 mEq/L 11/23/2016 12:00 [facility] Sodium 140 135 - 145 mEq/L 11/23/2016 12:00 [facility] 11/23/2016 8:49 EDT 11/23/2016 11:09 EDT Otis Gee MD CHEMISTRY & BLOOD GA S ORDERABLES [facility] * (ABNORMAL) COMPLETE BLOOD COUNT WITH DIFFERENTIAL (AUTO) (11/23/2016 8:49 EDT) ABSOLUTE NEUTROPHIL COUN - [facility] 4.55 1.7 - 7.0 10e3/ul 11/23/2016 11:40 EDT [facility] BASO # - [facility] 0.07 0.0 - 0.3 10e3/uL 11/23/2016 11:40 EDT [facility] BASO % - [facility] 1 0 - 2 % 11/23/2016 11:40 EDT [facility] EOS # - [facility] 0.58(H) 0.05 - 0.5 10e3/uL 11/23/2016 11:40 EDT [facility] EOS % - [facility] 7(H) 0 - 5 % 11/23/2016 11:40 EDT [facility] GRAN % - [facility] 56 40 - 80 % 11/23/2016 11:40 EDT [facility] HEMATOCRIT - [facility] 42.0 34.0 - 47.0 % 11/23/2016 11:40 EDT [facility] HEMOGLOBIN - [facility] 13.9 11.2 - 15.7 g/dl 11/23/2016 11:40 EDT [facility] IG# - [facility] 0.03 0 - 0.07 10e3/uL 11/23/2016 11:40 EDT [facility] IG% - [facility] 0.4 0 - 0.9 % 11/23/2016 11:40 EDT [facility] LYMPH # - [facility] 2.18 0.9 - 2.9 10e3/uL 11/23/2016 11:40 EDT [facility] LYMPH% - [facility] 27 20 - 40 % 11/23/2016 11:40 EDT [facility] MEAN CORPUSCULAR HGB - [facility] 29.6 26 - 34 pg 11/23/2016 11:40 [facility] MEAN CORPUSCULAR HGB CONC - [facility] 33.1 31 - 36 g/dL 11/23/2016 11:40 [facility] MEAN CELL VOLUME - [facility] 89.4 77 - 100 fl 11/23/2016 11:40 [facility] MONO # - [facility] 0.66 0.3 - 0.9 10e3/uL 11/23/2016 11:40 T [facility] MONO% - [facility] 8 0 - 12 % 11/23/2016 11:40 [facility] PLATELET COUNT 303 150 - 400 10e3/ul 11/23/2016 11:40 [facility] RED BLOOD COUNT - [facility] 4.70 3.8 - 5.2 10e6/ul 11/23/2016 11:40 [facility] RED CELL DISTRI WIDTH - [facility] 13.6 11.8 - 15.6 % 11/23/2016 11:40 [facility] WHITE BLOOD COUNT - [facility] 8.1 3.5 - 10.5 10e3/ul 11/23/2016 11:40 [facility] 11/23/2016 8:49 EDT 11/23/2016 11:09 EDT Otis Gee MD HEMATOLOGY & PF4 ORD ERABLES [facility] documented in this encounter Visit Diagnoses Not on filedocumented in this encounter Care Teams Personal Service Workers Relationship Specialty Start Date End Date Otis Gee MD PCP - General 01/14/10 08/08/22 documented as of this encounter
--- OUTSIDE RECORDS SUMMARY | 2024-02-08 01:14 | XMS_ITS | Encounter Summary ---
Author Organization [facility] Address [address] [place] [address] Care Team Providers Care Platen Drier Operator Name Role Phone Otis Gee MD Primary Care Provider Unava ilable Reason for Visit * Reason Onset Date Comments Leg Pain 04/15/2019 Encounter Details Date Type Department Care Team ([facility] st Contact Info) Description 04/15/2019 Telephone [facility] Medicine [place] [address] [address] , [facility] [address] [place] [address] Otis Gee MD Leg Pain Social History Tobacco Use Types Packs/Day [...] Telephone Encounter - Nathaniel Arreaga RN - 04/15/2019 1638 EST Talked to the patient, she stated that her pain has gotten worse over the course week, pain stated 9/10 also stated swelling and reported some discoloration patient described as purplish. Advised to go to ER to check for clotts. Patient agreed. To TC [facility]ke [place] * Telephone Encounter - Todd Dottie - 04/15/2019 1326 EST Pt reports of left leg pain, pt had surgery years ago on that leg so pt is concerned as her pain isincreasing,. Pain is continuous. documented in this encounter Plan of Treatment Upcoming Encounters Date Type Department Care Team (Late st Contact Info) Description 05/19/2024 11:00 EST Office Visit [address], [address] [address] Dane Rick MD [address] [place] [phone] documented as of this encounter Visit Diagnoses Not on filedocumented in this encounter Care Teams Platen Drier Operator Relationship Specialty Start Date End Date Otis Gee MD PCP - General 01/14/10 08/08/22 documented as of this encounter
--- OUTSIDE RECORDS SUMMARY | 2024-02-08 01:14 | XMS_ITS | Encounter Summary ---
Author Organization [facility] Address [address] [place] [address] Care Team Providers Care Lathmaker Name Role Phone Unavailable Primary Care Provider Unavailabl e Encounter Details Date Type Department Care Team ([facility] st Contact Info) Description 01/31/2008 8:08 EDT Hospital Encounter [facility] [address] [place] [address] Yared Romero MD [address] [phone] Social History Tobacco Use Types Packs/Day Years [...] Info) Description 05/19/2024 11:00 EST Office Visit [address], [facility] [address] [place] [address] Dane Rick MD [address] [place] [address] [address] [place] [phone] documented as of this encounter Visit Diagnoses Not on filedocumented in this encounter Additional Health Concerns Infection Onset Date Last Indicated Resolved Time R/O COVID-19 08/13/2023 08/13/2023 08/13/2023 20:0 7 EDT documented as of this encounter
[2024-02-08 09:39] LABS: ALT 16 U/L (14-59); AST 16 U/L (15-37); Albumin 3.2 g/dL (3.4-5.0); Alkaline Phosphatase 127 U/L (46-116); BUN 14 mg/dL (7-18); Bilirubin, Total 1.04 mg/dL (0.2-1.0); Calcium 11.1 mg/dL (8.5-10.1); Chloride 104 mmol/L (98-107); Estimated GFR 56.25 (mL/min/1.73m2); Glucose 91 mg/dL (74-106); Potassium 4.2 mmol/L (3.5-5.1); Sodium 141 mmol/L (136-145); Total Protein 7.2 g/dL (6.4-8.2)
== END 2024-02-08 01:03 | disposition home or self-care (01) ==
LOC: LBO 01:02
PROVIDERS: PCP Family Medicine; Visit Provider Nurse Practitioner Family
DX: C50.919 Malignant neoplasm of unspecified site of unspecified female breast (principal)
CPT/HCPCS: 36415; 80053

== ENCOUNTER 2024-04-24 04:08 | Outpatient (CLI) | payer MEDICARE, MEDICAID, SELFPAY ==
[2024-04-24 12:58] LABS: Abs Immature Grans 0.02 10^3/uL (0.0-0.06); Absolute Basophil Count 0.12 10^3/uL (0.0-0.2); Absolute Eosinophil Count 0.23 10^3/uL (0.0-0.7); Absolute Lymphocyte Count 2.41 10^3/uL (1.2-3.4); Absolute Monocyte Count 0.76 10^3/uL (0.1-0.8); Absolute Neutrophil Count 6.16 10^3/uL (1.2-6.7); Basophils % 1.2 %; Eosinophils % 2.4 %; HCT 46.5 % (36.0-46.0); HGB 15.2 g/dL (11.2-15.7); Immature Grans % 0.2 %; Lymphocytes % 24.8 %; MCH 28.3 pg (27.0-33.0); MCHC 32.7 % (32.0-36.0); MCV 87 fL (80-95); MPV 8.9 fL (8.0-11.0); Monocytes % 7.8 %; Neutrophils % 63.6 %; Platelet Count 326 10^3/uL (130-400); RBC 5.37 10^6/uL (3.93-5.22); RDW 13.7 % (11.7-14.6); RDW-SD 43.8 fL
[2024-04-24 13:16] LABS: ALT 15 U/L (14-59); AST 15 U/L (15-37); Albumin 4.1 g/dL (3.4-5.0); Alkaline Phosphatase 157 U/L (46-116); Anion Gap 6.7 mmol/L (3-11); BUN 14 mg/dL (7-18); Bilirubin, Total 1.72 mg/dL (0.2-1.0); CO2 30.3 mmol/L (21.0-32.0); CREATININE 1.1 mg/dL (0.55-1.02); Chloride 103 mmol/L (98-107); Estimated GFR 50.17 (mL/min/1.73m2); Glucose 94 mg/dL (74-106); Potassium 3.9 mmol/L (3.5-5.1); Sodium 140 mmol/L (136-145); Total Protein 7.7 g/dL (6.4-8.2)
[2024-04-24 13:24] LABS: Calcium 11.8 mg/dL (8.5-10.1)
== END 2024-04-24 04:09 | disposition home or self-care (01) ==
PROVIDERS: PCP Family Medicine; Visit Provider Nurse Practitioner Family
DX: C50.919 Malignant neoplasm of unspecified site of unspecified female breast (principal)
CPT/HCPCS: 36415; 80053; 85025

== ENCOUNTER 2024-07-25 00:43 | Outpatient (CLI) | payer MEDICARE, MEDICAID, SELFPAY ==
[2024-07-25 12:11] LABS: Abs Immature Grans 0.03 10^3/uL (0.0-0.06); Absolute Basophil Count 0.11 10^3/uL (0.0-0.2); Absolute Eosinophil Count 0.63 10^3/uL (0.0-0.7); Absolute Lymphocyte Count 1.85 10^3/uL (1.2-3.4); Absolute Neutrophil Count 4.85 10^3/uL (1.2-6.7); Basophils % 1.4 %; Eosinophils % 7.9 %; HCT 44.6 % (36.0-46.0); HGB 14.5 g/dL (11.2-15.7); Immature Grans % 0.4 %; Lymphocytes % 23.2 %; MCH 28.6 pg (27.0-33.0); MCHC 32.5 % (32.0-36.0); MCV 88 fL (80-95); Monocytes % 6.3 %; Neutrophils % 60.8 %; Platelet Count 270 10^3/uL (130-400); RBC 5.07 10^6/uL (3.93-5.22); RDW 14.2 % (11.7-14.6); RDW-SD 45.6 fL; WBC 7.97 10^3/uL (4.4-10.8)
[2024-07-25 12:27] LABS: ALT 18 U/L (14-59); AST 17 U/L (15-37); Albumin 3.9 g/dL (3.4-5.0); Alkaline Phosphatase 72 U/L (46-116); Anion Gap 6.9 mmol/L (3-11); BUN 13 mg/dL (7-18); Bilirubin, Total 0.9 mg/dL (0.2-1.0); CO2 29.1 mmol/L (21.0-32.0); CREATININE 0.8 mg/dL (0.55-1.02); Calcium 11.2 mg/dL (8.5-10.1); Chloride 106 mmol/L (98-107); Estimated GFR 73.52 (mL/min/1.73m2); Glucose 87 mg/dL (74-106); Potassium 4.4 mmol/L (3.5-5.1); Sodium 142 mmol/L (136-145); Total Protein 7.5 g/dL (6.4-8.2)
== END 2024-07-25 00:44 | disposition home or self-care (01) ==
LOC: LBO 00:43
PROVIDERS: PCP Family Medicine; Visit Provider Nurse Practitioner Family
DX: C50.919 Malignant neoplasm of unspecified site of unspecified female breast (principal)
CPT/HCPCS: 36415; 80053; 85025